=== PATIENT | female | born 1950 | race Caucasian/White ===

== ENCOUNTER 2023-06-27 09:45 | Outpatient (OUT) | payer MEDICARE, MEDICAID, SELFPAY ==
--- NOTE | 2023-06-27 10:50 | CA_ITS ---
Patient: RUBI SALOMON Exam Date: 06/27/2023 : 1950 Gender:F Ordering : PIETRO VÁZQUEZ Admission #: [id number] Family : Order #: [id number] CLICK HERE TO VIEW EXAM ECHOCARDIOGRAM REPORT PROCEDURE: CA ECHO DOPPLER COMPLETE INDICATIONS: Longstanding persistent Afib COMPARISON: None. DESCRIPTION: COMPLETE ECHOCARDIOGRAM Real-time transthoracic echocardiography with 2D, M-mode, spectral and color flow Doppler performed. QUALITY: Technical quality was good. LEFT VENTRICLE: Normal chamber size. Moderate concentric left ventricular hypertrophy. LV EF: Global left ventricular systolic function is normal. Calculated left ventricular ejection fraction is 58% DIASTOLIC: Not adequately assessed due to heart rhythm. ATRIAL SEPTUM: Inadequately seen. LEFT ATRIUM: Normal chamber size. RIGHT ATRIUM: Mild dilatation. RIGHT VENTRICLE: Mild dilatation. Normal right ventricular systolic function. TRICUSPID VALVE: Normal mobility and thickness. No stenosis with trivial regurgitation. No evidence of pulmonary hypertension. RVSP 20mmHg MITRAL VALVE: Normal mobility and thickness. No evidence of mitral valve stenosis. Mild mitral annular calcification. Trivial mitral regurgitation. AORTIC VALVE: Normal trileaflet appearance. No visible sclerosis. Normal leaflet mobility. No evidence of aortic valve stenosis. Trivial aortic regurgitation. AORTIC ROOT: Normal diameter and appearance. PULMONIC VALVE: Grossly normal. No stenosis. No regurgitation. PERICARDIUM: No evidence of pericardial effusion. IVC: Collapses with inspirations. Normal size. CONCLUSION: 1. Global left ventricular systolic function is normal; visually estimated ejection fraction is 55 to 60% 2. Moderately increased left ventricular wall thickness 3. The right atrium is mildly dilated 4. Right ventricle is mildly dilated with normal systolic function 5. No significant valvular abnormalities Adult Echocardiography Procedure Report Left Ventricle LVEDD (3.7 - 5.6 cm): 4.29 cm LVESD (2.2 - 4.0 cm): 2.67 cm LVIVS thickness (0.6 - 1.2 cm): 1.38 cm LVPW thickness (0.5 - 1.0 cm): 1.27 cm e': 0.18 m/s E - e': 5.63 LVOT Max Gradient: 2.05 mm[Hg] LVOT Area (cm2): 0.72 m/s Peak Velocity (LVOT): 0.72 m/s Mean Velocity (LVOT): 0.56 m/s LVOT Diameter 2.09 cm Left Ventricular Ejection Fraction: 58.08 % Left Atrium LA Volume Index (2D A2C): 36.10 ml/m2 Left Atrium Systolic Dimension: 4.05 cm Mitral Valve Mitral Valve E-Wave Peak Velocity: 1.00 m/s Right Ventricle RV Internal Diastolic Dimension: 4.09 cm Aorta AO Root Diam: 3.29 cm Ascending Ao Diam: 3.19 cm Aortic Valve AoV Area (Peak Vicente): 2.03 cm2, 2.06 cm2 AoV Area (VTI): 2.07 cm2, 2.22 cm2 Peak Velocity(Antegrade Flow): 1.19 m/s, 1.23 m/s Peak Gradient(Antegrade Flow): 5.69 mm[Hg], 6.00 mm[Hg] Mean Velocity(Antegrade Flow): 0.82 m/s, 0.87 m/s Mean Gradient(Antegrade Flow): 3.16 mm[Hg], 3.44 mm[Hg] Velocity Time Integral: 23.51 cm, 26.84 cm Tricuspid Valve Peak Velocity (Regurgitant Flow): 1.80 m/s, 2.05 m/s Pulmonic Valve Mean Gradient: 1.19 mm[Hg], 1.17 mm[Hg] Mean Velocity: 0.51 m/s, 0.51 m/s Peak Velocity: 0.73 m/s, 0.94 m/s Peak Gradient: 2.15 mm[Hg], 2.15 mm[Hg], 3.56 mm[Hg] Right Atrium Right Atrium Systolic Pressure: 50.21 ml, 50.21 ml Dictated by: Shemar Hudson M.D. on 06/28/2023 at 10:13 Approved by: Shemar Hudson M.D. on 06/28/2023 at 10:15
== END 2023-06-27 09:46 | disposition home or self-care (01) ==
LOC: CARD 09:46
PROVIDERS: PCP Family Medicine; Visit Provider Nurse Practitioner
DX: C50.811 Malignant neoplasm of overlapping sites of right female breast (principal); Z17.1 Estrogen receptor negative status [ER-]; I48.11 Longstanding persistent atrial fibrillation
CPT/HCPCS: 77065; 93306; G0279

== ENCOUNTER 2023-06-27 10:38 | Outpatient (OUT) | payer MEDICARE, MEDICAID, SELFPAY ==
--- NOTE | 2023-06-27 | MM_ITS ---
Patient: RUBI SALOMON Exam Date: 06/27/2023 : 1950 Gender:F Ordering : DR Shayy Bernabe [facility] Admission #: [id number] Family : DR. AKIL FLORES . Order #: [id number] CLICK HERE TO VIEW EXAM RADIOLOGY REPORT PROCEDURE: MM TOMOSYNTHESIS DIAGNOSTIC LT COMPARISON: MG MAMM DX 3D LT CAD, 06/14/2022. MG MAMM DX 3D LT CAD, 06/13/2021. INDICATIONS: C50.811, Z17.1 Calculator Name NCI Breast Cancer Risk Assessment Tool 5 Year Breast Cancer Risk 2.70% Lifetime Breast Cancer Risk 5.80% Personal Breast Cancer No Personal Ovarian Cancer No Treatments None Family Cancers None LOCATION: [facility] BREAST COMPOSITION: Scattered areas fibroglandular density. FINDINGS: DIAGNOSTIC CATEGORY 2--BENIGN FINDING: RIGHT BREAST: No significant suspicious finding. Scattered benign-appearing nodules are present. No significant change has occurred. RECOMMENDATIONS: ROUTINE MAMMOGRAM AND CLINICAL EVALUATION IN 12 MONTHS. PLEASE NOTE: A NORMAL MAMMOGRAM DOES NOT EXCLUDE THE POSSIBILITY OF BREAST CANCER. A CLINICALLY SUSPICIOUS PALPABLE LUMP SHOULD BE BIOPSIED. Dictated by: Jason Hinojosa M.D. on 06/27/2023 at 11:29 Approved by: Jason Hinojosa M.D. on 06/27/2023 at 11:32
== END 2023-06-27 10:39 | disposition home or self-care (01) ==
LOC: MAMMO 10:38
PROVIDERS: PCP Family Medicine; Visit Provider Physician Assistant Medical
DX: C50.811 Malignant neoplasm of overlapping sites of right female breast (principal); Z17.1 Estrogen receptor negative status [ER-]
CPT/HCPCS: 77065; G0279

== ENCOUNTER 2023-08-12 12:33 | Outpatient (OUT) | payer MEDICARE, MEDICAID, SELFPAY ==
--- NOTE | 2023-08-12 12:37 | CT_ITS ---
The [address] [address] Patient Name: RUBI SALOMON MRN: [facility]:[id number] date: 1950 Sex: F Assigned Patient Location: CT Current Patient Location: CT Accession/Order Number: [id number] Exam Date: 08/12/2023 12:54 Report Date: 08/12/2023 13:27 At the request of: JENSEN CARTER Procedure: CT head/brain wo con CT head/brain wo con, 08/12/2023 12:54 PM EST INDICATION: Transient Altercation Of Awareness R40.4, Hallucination R44. COMPARISON: There is no appropriate prior study for comparison. TECHNIQUE: Axial CT images of the brain from skull base to vertex, including portions of the face and sinuses, were obtained without contrast . Multiplanar reformatted images were generated and reviewed as needed. Dose reduction techniques were achieved by using automated exposure control and/or adjustment of mA and/or kV according to patient size and/or use of iterative reconstruction technique. FINDINGS: The cerebral sulci as well as ventricular system are appropriate for age. There is no intracranial mass, mass effect, midline shift, intra or extra-axial fluid collection or hemorrhage. The visualized portions of orbits, mastoid air cells as well as paranasal sinuses are unremarkable. There is status post bilateral lens replacement. There is diffuse hyperostosis of the cranium. There is no suspicious osteolytic or osteoblastic lesion. CT/CT head/brain wo con IMPRESSION: No acute intracranial process is noted. Electronically authenticated by: DEMETRIS CAMP Date: 08/12/2023 13:27
== END 2023-08-12 12:34 | disposition home or self-care (01) ==
LOC: CT 12:34
PROVIDERS: PCP Family Medicine; Visit Provider Nurse Practitioner Adult Health
DX: R40.4 Transient alteration of awareness (principal); R44.3 Hallucinations, unspecified
CPT/HCPCS: 70450

== ENCOUNTER 2023-08-29 10:01 | Outpatient (OUT) | payer MEDICARE, MEDICAID, SELFPAY ==
[2023-08-29 10:58] LABS: BUN Creatinine Ratio 21.3; Carbon Dioxide 30.2 mmol/L (21.0-32.0); Chloride 103 mmol/L (98-107); Estimated GFR (African America >60 (>=60); Estimated GFR (Non-African Ame >60 (>=60); Glucose 130 mg/dL (74-106); Potassium 4.2 mmol/L (3.5-5.1); Sodium 142 mmol/L (136-145)
== END 2023-08-29 10:02 | disposition home or self-care (01) ==
PROVIDERS: PCP Family Medicine; Visit Provider Nurse Practitioner
DX: I50.32 Chronic diastolic (congestive) heart failure (principal)
CPT/HCPCS: 36415; 80048; 83880

== ENCOUNTER 2024-01-08 10:19 | Outpatient (OUT) | payer MEDICARE, MEDICAID, SELFPAY ==
[2024-01-08 15:24] LABS: Anion Gap 13.9; BUN Creatinine Ratio 29.3; Calcium 9.4 mg/dL (8.5-10.1); Carbon Dioxide 31.7 mmol/L (21.0-32.0); Chloride 101 mmol/L (98-107); Estimated GFR (African America 34 (>=60); Estimated GFR (Non-African Ame 28 (>=60); Glucose 116 mg/dL (74-106); Potassium 4.6 mmol/L (3.5-5.1); Sodium 142 mmol/L (136-145)
== END 2024-01-08 10:20 | disposition home or self-care (01) ==
LOC: LAB 01-14 10:19
PROVIDERS: PCP Family Medicine; Visit Provider Nurse Practitioner
DX: I50.32 Chronic diastolic (congestive) heart failure (principal)
CPT/HCPCS: 36415; 80048

== ENCOUNTER 2024-03-05 12:29 | Outpatient (OUT) | payer MEDICARE, MEDICAID, SELFPAY ==
[2024-03-05 13:00] LABS: Basophils Percent Auto 0.1 % (0.2-2.0); Hemoglobin 10.4 g/dL (12.0-16.0); Immature Granulocytes Abs Auto 0.03 10^3/uL (0.00-0.03); Immature Granulocytes Pct Auto 0.3 % (0.0-0.5); Lymphocytes Absolute Auto 0.6 10^3/uL (1.2-3.8); Lymphocytes Percent Auto 5.8 % (20.5-60.0); Mean Corpuscular HGB Conc 30.6 g/dL (29.9-35.2); Mean Corpuscular Hemoglobin 30.1 pg (26.7-34.0); Mean Corpuscular Volume 98.3 fL (81.0-99.0); Mean Platelet Volume 9.8 fL (9.5-13.5); Monocytes Absolute Auto 0.4 10^3/uL (0.3-0.8); Monocytes Percent Auto 3.8 % (1.7-12.0); Neutrophils Absolute Auto 8.8 10^3/uL (1.4-6.5); Platelet Count 279 10^3/uL (150-450); Red Blood Count 3.46 10^6/uL (4.20-5.40); Red Cell Distribution Width 14.2 % (11.0-15.0); White Blood Count 9.8 10^3/uL (4.0-11.0)
[2024-03-05 14:36] LABS: Anion Gap 12.6; BUN Creatinine Ratio 29.1; Chloride 101 mmol/L (98-107); Estimated GFR (African America 41 (>=60); Estimated GFR (Non-African Ame 34 (>=60); Glucose 152 mg/dL (74-106); Potassium 4.6 mmol/L (3.5-5.1); Sodium 141 mmol/L (136-145)
== END 2024-03-05 12:30 | disposition home or self-care (01) ==
LOC: LAB 12:29
PROVIDERS: PCP Family Medicine; Visit Provider Internal Medicine Cardiovascular Disease
DX: I48.0 Paroxysmal atrial fibrillation (principal)
CPT/HCPCS: 36415; 80048; 85025

== ENCOUNTER 2024-04-26 17:17 | Emergency (ER) | payer MEDICARE, MEDICAID, SELFPAY ==
--- NOTE | 2024-04-26 | XR_ITS ---
The [address] [address] Patient Name: RUBI SALOMON MRN: [facility]:[id number] date: 1950 Sex: F Assigned Patient Location: ER Current Patient Location: ED.MAIN Accession/Order Number: [id number] Exam Date: 04/26/2024 18:15 Report Date: 04/26/2024 20:04 At the request of: DEVON NG Procedure: XR wrist LT min 3V EXAM: XR hand LT min 3V, XR wrist LT min 3V HISTORY: The patient is a 74-year-old female, fall COMPARISON: None. XR/XR wrist LT min 3V IMPRESSION: There is an old healed fracture deformity of the distal left radius. No dislocations or acute or ununited fractures are seen throughout the left hand and wrist. Electronically authenticated by: DRU BAINS Date: 04/26/2024 20:04
[2024-04-26 17:30] VITALS: BP 152/82; PULSE 86; TEMP 36.8; O2SAT 98; BMI 39.5
--- OUTSIDE RECORDS SUMMARY | 2024-04-26 17:31 | XMS_ITS | CCD ---
Author Organization [facility] Care Team Providers Care Ingot Header Name Role Phone MORGAN EHAB A Admitting Unavailable ELTAROBERT EHAB A Attending Unavailable UNKNOWN, PHYSICIAN Referring Unavailable UNKNOWN, PHYSICIAN Primary Care Unavailable ARACELI SANDHU Admitting Unava ilable ARACELI SANDHU Attending Unava ilable UNKNOWN, PHYSICIAN Referring Unavailable UNKNOWN, PHYSICIAN Primary Care Unavailable Charles Landeros MD Primary Care Provider Emmanuel WAFER FABRICATION OPERATOR.SALES TECHNICIAN, Samantha Unavailable [phone] Reginald Aragon MD Unavailable Charles Landeros MD Primary Care Provider Emmanuel WAFER FABRICATION OPERATOR.SALES TECHNICIAN, Samantha Unavailable Reginald Aragon MD Unavailable Charles Landeros MD Primary Care Provider Emmanuel WAFER FABRICATION OPERATOR.SALES TECHNICIAN, Samantha Unavailable [phone] Reginald Aragon MD Unavailable NADINE, DR CHARLES Keith Admitting Unavailable NADINE, DR CHARLES Keith Attending Unavailable NADINE, DR CHARLES Keith Primary Care Unavailable NALLELY, DR MILIAN Admitting Unavailable NALLELY, DR MILIAN Attending Unavailable NALLELY, DR MILIAN Consulting Unavailable NADINE, DR CHARLES Keith Primary Care Unavailable SHAWNEE, DR DEEPTI Mondragon Consulting Unavailable NADINE, DR CHARLES Keith Admitting Unavailable NADINE, DR CHARLES Keith Attending Unavailable NADINE, DR CHARLES Keith Consulting Unavailable NADINE, DR CHARLES Keith Primary Care Unavailable SHAWNEE, DR DEEPTI Mondragon Consulting Unavailable BRIANA, MITCHEL Admitting Unavailable GABRIELLE LIU Consulting Unavailable MITCHEL WARREN Attending Unavailable NADINE, DR CHARLES Keith Primary Care Unavailable MITCHEL WARREN Consulting Unavailable REGINALD ARAGON Referring Unavailable REGINALD ARAGON Attending Unavailable NADINE, CHARLES PRAKASH Primary Care Unavailable REGINALD ARAGON Referring Unavailable NADINE, CHARLES PRASHANTDELICIA Primary Care Unavailable REGINALD ARAGON Referring Unavailable REGINALD ARAGON Attending Unavailable CHARLES LANDEROS Primary Care Unavailable LANDEROS, CHARLES PRAKASH Primary Care Unavailable REGINALD ARAGON Referring Unavailable CON, OH Fuentes Referring Unavailable CON, OH Fuentes Primary Care Unavailable CON, OH Fuentes Referring Unavailable CON, OH Fuentes Primary Care Unavailable OLGAELIF Referring Unavailable CHARLES LANDEROS Primary Care Unavailable JENSEN CARTER Attending Unavailable JEFFERY, BRIAN Admitting Unavailable JEFFERY, BRIAN Attending Unavailable OLGA, ELIF Attending Unavailable BARAZPIETRO Martinez Attending Unavailable JEFFERY, BRIAN Referring Unavailable JEFFERY, BRIAN Referring Unavailable JEFFERY, BRIAN Referring Unavailable BARAZIPIETRO Attending Unavailable MELISSA TORRES Attending Unavailable JEFFERY, BRIAN Attending Unavailable OLGA, ELIF Attending Unavailable JEFFERY, BRIAN Attending Unavailable Con, Oh Fuentes Attending Unavailable Con, Oh Fuentes Attending Unavailable Con, Oh Fuentes Attending Unavailable Con, Oh Fuentes Attending Unavailable Con, Oh Fuentes Attending Unavailable Inderjit Cha Attending Unavailab Inderjit Hughes Admitting Unavailab Charles Rain Primary Care Unavailable Allergies Allergy Classification Reported Allergen(s) Allergy Type Date of Onset Reaction(s) Facility (3 sources) Penicillin; Translations: [penicillin] Drug Allergy 01-17-20 19 [facility] (5 sources) Sulfonamides (Antibiotic); Translations: [SULFA (SULFONAMIDE ANTIBIOTICS)] Drug allergy (disorder) 01-28-20 10 [facility] (11 sources) bacitracin / neomycin / polymyxin b; Translations: [NEOMYCIN-BACITRAC IN-POLYMYXIN] Drug Allergy 05-06-20 19 Rash [facility] (12 sources) Clarithromycin; Translations: [CLARITHROMYCIN] Drug Allergy 01-28-20 10 [facility] (11 sources) Estrogens, Conjugated (HALFWAY); Translations: [CONJUGATED ESTROGENS] Drug Allergy 01-28-20 10 Unknown [facility] (10 sources) PACLitaxel; Translations: [PACLITAXEL] Drug Allergy 08-24-20 Other: See Comments [facility] (11 sources) peanut allergenic extract; Translations: [PEANUT] Drug Allergy 05-06-20 19 Anaphylaxis [facility] (4 sources) Penicillins; Translations: [PENICILLINS] Drug Allergy 05-06-20 19 Rash [facility] (8 sources) Sulfonamides (Antibiotic) Drug Allergy 01-28-20 10 Unknown [facility] (7 sources) Penicillins Drug Allergy 05-06-20 19 Rash [facility] (3 sources) Shrimp product; Translations: [SHRIMP] Propensity to adverse reactions to food (disorder) 05-07-20 [facility] (4 sources) PINEAPPLE; Translations: [PINEAPPLE] Propensity to adverse reactions to food (disorder) 05-07-20 [facility] (3 sources) Bacitracin; Translations: [BACITRACIN] Drug Allergy 05-16-20 [facility] (1 source) Bromelains; Translations: [BROMELAINS] Drug Allergy 04-25-20 [facility] (2 sources) Estrogens, Conjugated (HALFWAY); Translations: [ESTROGENS, CONJUGATED] Drug Allergy 05-16-20 [facility] (1 source) Neomycin; Translations: [NEOMYCIN SULFATE] Drug Allergy 04-25-20 [facility] (2 sources) POLYMYXIN B; Translations: [POLYMYXIN B] Propensity to adverse reactions to drug (disorder) 05-16-20 [facility] (1 source) peanut; Translations: [Peanuts] Food allergy (disorder) [facility] Repository (1 source) Sulfonamides (Antibiotic); Translations: [sulfa drugs] Propensity to adverse reactions (disorder) [facility] (1 source) Clarithromycin Drug Allergy 05-16-20 [facility] (1 source) Fish Oils Drug Allergy 06-12-20 [facility] (1 source) Neomycin Drug Allergy 05-16-20 [facility] (1 source) PACLitaxel Drug Allergy 05-16-20 [facility] (1 source) peanut allergenic extract Drug Allergy 05-16-20 [facility] (1 source) Penicillins Drug allergy (disorder) 06-12-20 [facility] (1 source) Sulfacetamide Drug Allergy 06-12-20 [facility] (1 source) Sulfonamides (Antibiotic) Drug allergy (disorder) 05-16-20 [facility] (1 source) Sulfur Drug Allergy 06-12-20 [facility] (1 source) tree nut, unspecified Drug allergy (disorder) 06-12-20 [facility] Medications Completed/Discontinued Medications Medication Drug Class(es) Dates Sig (Normalized) Sig (Original) acetaminophen 500 mg oral tablet (8 sources) take 2 tablets by mouth every six hours as needed acetaminophen (TYLENOL) 500 mg tablet Take 1,000 mg by mouth every 6 hours as needed. 0 Active Comment on above: Take 1,000 mg by zohreh th every 6 hours as needed. ADULTS 50 PLUS 0.4-300-250 mg-mcg-mcg tab (8 sources) Start: 01-04-2021 take 1 tablet by mouth once daily ADULTS 50 PLUS 0.4-300-250 mg-mcg-mcg tab Take 1 tablet by mouth once daily. 0 01/04/2021 Active Comment on above: Take 1 tablet by zohreh th once daily. [id number] 200 actuat albuterol 0.09 mg/actuat metered dose inhaler (8 sources) beta2-Adrenergic Agonist take 2 puff(s) by inhalation every six hours as needed albuterol HFA (PROVENTIL HFA, VENTOLIN HFA) 90 mcg/actuation inhaler Inhale 2 Puffs as instructed every 6 hours as needed. 0 Active Comment on above: Inhale 2 Puffs as in structed every 6 hours as needed. albuterol 0.833 mg/ml / ipratropium bromide 0.167 mg/ml inhalation solution (8 sources) Anticholinergic, beta2-Adrenergic Agonist Start: 02-27-2020 take 1 dose by inhalation four times daily ipratropium-albute rol (DUONEB) 0.5 mg-3 mg(2.5 mg base)/3 mL nebu INHALE THE CONTENTS OF 1 VIAL THROUGH NEBULIZER QID 0 02/27/2020 Active Comment on above: INHALE THE CONTENTS OF 1 VIAL THROUGH NEBULIZER QID apixaban 5 mg oral tablet (8 sources) Factor Xa Inhibitor Start: 03-17-2019 take 1 tablet by mouth twice daily ELIQUIS 5 mg tab(s) Take 5 mg by mouth twice daily. 0 03/17/2019 Active Comment on above: Take 5 mg by mouth t wice daily. ARIPiprazole 15 mg oral tablet (1 source) Atypical Antipsychotic take 1 tablet by mouth once daily ARIPiprazole (ABILIFY) 15 mg tablet Take 15 mg by mouth once daily. 0 Active Comment on above: Take 15 mg by mouth once daily. atorvastatin 40 mg oral tablet (8 sources) HMG-CoA Reductase Inhibitor Start: 01-16-2019 take 1 tablet by mouth once daily atorvastatin (LIPITOR) 40 mg tablet Take 40 mg by mouth once daily. 3 01/16/2019 Active Comment on above: Take 40 mg by mouth once daily. 1 ml benralizumab 30 mg/ml auto-injector (8 sources) Interleukin-5 Receptor alpha-directed Cytolytic Antibody Start: 02-21-2021 FASENRA PEN 30 mg/mL cholecalciferol 0.05 mg oral capsule (8 sources) Vitamin D Start: 03-01-2019 VITAMIN D-3 2,000 unit cap 2,000 Units once daily. 5 03/01/2019 Active Comment on above: 2,000 Units once linda ly. dapagliflozin 5 mg oral tablet (8 sources) Sodium-Glucose Cotransporter 2 Inhibitor Start: 11-30-2020 take 2 tablets by mouth once daily FARXIGA 5 mg tablet Take 10 mg by mouth once daily. 0 11/30/2020 Active Start: 11-30-2020 FARXIGA 5 mg t ablet Comment on above: Take 10 mg by mouth once daily. fluticasone propionate 0.05 mg/actuat metered dose nasal spray (8 sources) Corticosteroid Start: 02-27-20 fluticasone (FLONASE) 50 mcg/actuation nasal spray 2 Sprays once daily. 0 02/26/2019 Active Comment on above: 2 Sprays once daily. 60 actuat fluticasone propionate 0.5 mg/actuat / salmeterol 0.05 mg/actuat dry powder inhaler (8 sources) Corticosteroid, beta2-Adrenergic Agonist Start: 03-03-20 19 ADVAIR DISKUS 500-50 mcg/dose dsdv 1 Puff twice daily. 5 03/03/2019 Active Comment on above: 1 Puff twice daily. 30 actuat fluticasone furoate 0.1 mg/actuat / vilanterol 0.025 mg/actuat dry powder inhaler (1 source) Corticosteroid, beta2-Adrenergic Agonist Start: 09-10-20 23 BREO ELLIPTA 100-25 mcg/dose inhaler furosemide 20 mg oral tablet (8 sources) Loop Diuretic Start: 01-17-20 19 take 3 tablets by mouth once daily furosemide (LASIX) 20 mg tablet Take 60 mg by mouth once daily. 3 01/16/2019 Active Start: 01-16-2019 take 2 tablets by mo [facility] once daily furosemide (LASIX) 20 mg tablet Take 40 mg by mouth once daily. 3 01/16/2019 Active Start: 01-16-2019 [facility] (LASIX) 20 mg tablet Take 20 mg by mouth once daily. 3 01/16/2019 Active Comment on above: Take 20 mg by mouth once daily. Take 40 mg by mouth once daily. Take 60 mg by mouth once daily. loratadine 10 mg oral tablet (8 sources) Start: 9 take 1 tablet by mouth once daily loratadine (CLARITIN) 10 mg tablet Take 10 mg by mouth once daily. 0 05/19/2019 Active Comment on above: Take 10 mg by mouth once daily. losartan potassium 100 mg oral tablet (8 sources) Angiotensin 2 Receptor Amber Start: 9 take 1 tablet by mouth once daily losartan (COZAAR) 100 mg tablet Take 100 mg by mouth once daily. 3 03/13/2019 Active Comment on above: Take 100 mg by mouth once daily. metFORMIN hydrochloride 500 mg oral tablet (8 sources) Biguanide Start: 0 take 1 tablet by mouth twice daily metFORMIN (GLUCOPHAGE) 500 mg tablet TK 1 T PO BID 0 08/05/2020 Active Comment on above: TK 1 T PO BID metoprolol tartrate 50 mg oral tablet (8 sources) beta-Adrenergic Amber Start: 9 metoprolol tartrate, short acting, (LOPRESSOR) 50 mg tablet Take 100 mg by mouth two times a day. 5 03/13/2019 Active Start: 03-13-2019 take 1 tablet by zohreh th twice daily metoprolol tartrate, short acting, (LOPRESSOR) 50 mg tablet Take 50 mg by mouth twice daily. 5 03/13/2019 Active Comment on above: Take 50 mg by mouth twice daily. Take 100 mg by mouth two times a day. montelukast 10 mg oral tablet (8 sources) Leukotriene Receptor Antagonist Start: 0 take 1 tablet by mouth once daily montelukast (SINGULAIR) 10 mg tablet TK 1 T PO QD 0 03/08/2020 Active Comment on above: TK 1 T PO QD nystatin 100 unt/mg topical powder (8 sources) Polyene Antifungal Start: 0 NYSTOP powder Apply to affected area two times a day as needed. APPLY TO AFFECTED AREA 0 10/12/2019 Active Comment on above: Apply to affected ar ea twice daily as needed. APPLY TO AFFECTED AREA Apply to affected ar ea two times a day as needed. APPLY TO AFFECTED AREA ondansetron 8 mg oral tablet (8 sources) Serotonin-3 Receptor Antagonist Start: 9 take 1 tablet by mouth every eight hours as needed ondansetron (ZOFRAN) 8 mg tablet Take 1 tablet by mouth every 8 hours as needed for Nausea/Vomiting. 30 tablet 2 04/27/2019 Active Comment on above: Take 1 tablet by zohreh every 8 hours as needed for Nausea/Vomiting. pantoprazole 40 mg delayed release oral tablet (8 sources) Proton Pump Inhibitor take 1 tablet by mouth once daily pantoprazole DR (PROTONIX) 40 mg tablet Take 40 mg by mouth once daily. 0 Active Comment on above: Take 40 mg by mouth once daily. potassium chloride 20 meq extended release oral tablet (18 sources) Start: 2 End: 3 take 2 tablets by mouth once daily potassium chloride 20 mEq TbER TAKE 2 TABLETS BY MOUTH EVERY DAY 180 tablet 0 10/11/2022 Active Start: 12-04-2021 take 2 tablets by mo [facility] once daily potassium chloride 20 mEq TbER TAKE 2 TABLETS BY MOUTH EVERY DAY 180 tablet 0 12/04/2021 Active Start: 02-16-2021 take 2 tablets by mo [facility] once daily potassium chloride ER (K-DUR, KLOR-CON) 20 mEq tablet Take 2 tablets by mouth once daily. 180 tablet 1 02/16/2021 Active Comment on above: Take 2 tablets by mo [facility] once daily. TAKE 2 TABLETS BY MO [facility] EVERY DAY predniSONE 10 mg oral tablet (8 sources) Start: 2019 take 3 tablets by mouth once daily in the morning predniSONE (DELTASONE) 10 mg tablet TK 3 TS PO QAM FOR 3 DAYS FOR ASTHMA FLARE 0 05/02/2020 Active Comment on above: TK 3 TS PO QAM FOR 3 DAYS FOR ASTHMA FLARE prochlorperazine 10 mg oral tablet (8 sources) Phenothiazine Start: 2018 take 1 tablet by mouth every six hours as needed prochlorperazine (COMPAZINE) 10 mg tablet Take 1 tablet by mouth every 6 hours as needed. 30 tablet 2 04/27/2019 Active Comment on above: Take 1 tablet by [facility] every 6 hours as needed. sertraline 50 mg oral tablet (8 sources) Serotonin Reuptake Inhibitor Start: 2018 take 1 tablet by mouth once daily sertraline (ZOLOFT) 50 mg tablet Take 50 mg by mouth once daily. 5 03/02/2019 Active Comment on above: Take 50 mg by mouth once daily. silver sulfADIAZINE 10 mg/ml topical cream (8 sources) Sulfonamide Antibacterial Start: 2019 silver sulfADIAZINE (SILVADENE,THERMAZENE ) 1 % cream Apply to affected area twice daily 0 11/06/2019 Active Comment on above: Apply to affected ar ea twice daily spironolactone 25 mg oral tablet (1 source) Aldosterone Antagonist take 1 tablet by mouth once daily spironolactone (ALDACTONE) 25 mg tablet Take 25 mg by mouth once daily. 0 Active Comment on above: Take 25 mg by mouth once daily. 60 actuat tiotropium 0.68310 mg/actuat inhalation spray (8 sources) Anticholinergic Start: 2018 take 1.25 ug by inhalation once daily SPIRIVA RESPIMAT 1.25 mcg/actuation mist Inhale 2 Puffs as instructed once daily. 12 03/12/2019 Active Comment on above: Inhale 2 Puffs as in structed once daily. WOMEN'S MULTIVITAMIN 18 mg-400 mcg- 500 mg-50 mcg tab (8 sources) Start: 2018 take 1 tablet by mouth once daily WOMEN'S MULTIVITAMIN 18 mg-400 mcg- 500 mg-50 mcg tab TK 1 T PO D 3 01/14/2019 Active Comment on above: TK 1 T PO D Problems Active Problems Problem Classification Problem Date Documented Da te Episodic/Chronic Asthma (1 source) Unspecified asthma, uncomplicated; Translations: [UNSPECIFIED ASTHMA UNCOMPLICATED] Onset: 07-25-2022 Chronic Cancer of breast (18 sources) Overlapping malignant neoplasm of female breast; Translations: [Malignant neoplasm of overlapping sites of right female breast] Onset: 04-20-2019 Chronic Cardiac dysrhythmias (5 sources) Paroxysmal atrial fibrillation; Translations: [Unspecified atrial fibrillation] Onset: 10-24-2023 Chronic Congestive heart failure; nonhypertensive (2 sources) Chronic diastolic (congestive) heart failure; Translations: [Chronic diastolic (congestive) heart failure] Onset: 06-18-2023 Chronic Coronary atherosclerosis and other heart disease (3 sources) Old myocardial infarction; Translations: [OLD MYOCARDIAL INFARCTION] Onset: 07-25-2022 Chronic Deficiency and other anemia (1 source) Iron deficiency anemia; Translations: [Other iron deficiency anemias] Episodic Diabetes mellitus without complication (1 source) Type 2 diabetes mellitus without complications; Translations: [TYPE 2 DM WITHOUT COMPLICATIONS] Onset: 07-25-2022 Chronic Esophageal disorders (1 source) Gastro-esophageal reflux disease without esophagitis; Translations: [GERD WITHOUT ESOPHAGITIS] Onset: 07-25-2022 Chronic Essential hypertension (3 sources) Essential (primary) hypertension; Translations: [ESSENTIAL PRIMARY HYPERTENSION] Onset: 07-25-2022 Chronic Osteoarthritis (1 source) Unspecified osteoarthritis, unspecified site; Translations: [UNSPECIFIED OSTEOARTHRITIS UNS SITE] Onset: 07-25-2022 Chronic Other aftercare (1 source) 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; Translations: [OTH CMM PROGRAMMER CURRENT DRUG THERAPY] Onset: 07-25-2022 Episodic Other injuries and conditions due to external causes (1 source) Unspecified injury of left shoulder and upper arm, initial encounter; Translations: [Unspecified injury of left shoulder and upper arm, initial encounter] Onset: 11-27-2023 Episodic Other lower respiratory disease (1 source) Shortness of breath; Translations: [SHORTNESS OF BREATH] Onset: 07-25-2022 Episodic Other non-traumatic joint disorders (1 source) Pain in left shoulder; Translations: [Pain in left shoulder] Onset: 11-27-2023 Episodic Other nutritional; endocrine; and metabolic disorders (1 source) Morbid (severe) obesity due to excess calories; Translations: [MORBID SEVERE OBES D/T EXCESS SUNIL] Onset: 07-25-2022 Chronic Other nutritional; endocrine; and metabolic disorders (1 source) History of iron deficiency; Translations: [Personal history of other endocrine, nutritional and metabolic disease] Episodic Pneumonia (except that caused by tuberculosis or sexually transmitted disease) (5 sources) Lobar pneumonia, unspecified organism; Translations: [Bronchopneumonia, unspecified organism] Onset: 07-25-2022 Episodic Residual codes; unclassified (1 source) History of right mastectomy; Translations: [Acquired absence of right breast and nipple] 09-12-2023 Episodic Unclassified (2 sources) COUGH, UNSPECIFIED; Translations: [COUGH, UNSPECIFIED] Onset: 07-25-2022 Unclassified (1 source) CONTACT W/AND (SUSP) EXPOS COVID-19; Translations: [CONTACT W/AND (SUSP) EXPOS COVID-19] Onset: 07-25-2022 Unclassified (2 sources) Other persistent atrial fibrillation; Translations: [Other persistent atrial fibrillation] Onset: 02-11-2024 Unclassified (2 sources) Longstanding persistent atrial fibrillation; Translations: [Longstanding persistent atrial fibrillation] Onset: 06-18-2023 Past or Other Problems Problem Classification Problem Date Documented Da te Episodic/Chronic Deficiency and other anemia (9 sources) Iron deficiency anemia secondary to inadequate dietary iron intake; Translations: [Other iron deficiency anemias] Onset: 06-17-2019 06-17-2019 Episodic Residual codes; unclassified (2 sources) Estrogen receptor negative status [ER-]; Translations: [ESTROGEN RECEPTOR NEGATIVE STATUS] Onset: 04-20-2019 Episodic Unclassified (1 source) COUGH, UNSPECIFIED; Translations: [COUGH, UNSPECIFIED] Onset: 07-23-2022 Results Test Name Value Interpretation Reference Range Facility Family Medicine Office/Clini c Noteon 03-30-2024 Family Medicine Office/Clinic Note Family Medicine Office/Clinic Note HPI Staff Lott is a 74 year old female presenting for medication check labs 01/08/24 NED 01/09/24 was to follow up with [facility], Did drooling improve Pt here today with Ruddy her Caregiver with [facility] Drooling has improved , caregiver states she went to go to [facility] testing all came back normal only thing she couldn't finish was the MRI . They ending up doing CT scan History of Present Illness pt presents today for med check Physical Exam Vitals & Measurements HR: 76(Peripheral) RR: 18 BP: 126/84 SpO2: 92% HT: 65 in HT: 164.0 cm WT: 121.55 kg WT: 267.41 lb BMI: 45.19 General: alert, no acute distress ENMT: oral mucosa moist, no pharyngeal erythema or exudate Cardiovascular: regular rate and rhythm, normal peripheral perfusion Respiratory: Lungs CTA, respirations non labored Extremities: no deformity, no trauma Neurological: oriented x 4, LOC appropriate for age, CN II-XII intact, motor strength equal & normal bilaterally, speech normal Assessment/Plan 1. Type 2 diabetes mellitus with stage 3b chronic kidney disease (E11.22: Type 2 diabetes mellitus with diabetic chronic kidney disease) pt does not need refills at this. orders for labs printed off and provided. [facility] [place] denies needs at this time. RTC 6 months 2. Hypertensive disorder (I10: Essential (primary) hypertension) BP at goal today 3. BMI 45.0-49.9, adult (Z68.42: Body mass index [BMI] 45.0-49.9, adult) BMI educatin given 4. Non-smoker (Z78.9: Other specified health status) continue not smoking Orders: dapagliflozin, 5 mg = 1 tab(s), Oral, Daily, # 90 tab(s), Refills(s) 3, Pharmacy: [facility] #[id number] predniSONE, 30 mg = 3 tab(s), Oral, Once, take 3 tabs in am for 3 days for asthma flare up, # 9 tab(s), Refills(s) 1, Pharmacy: [facility] #[id number] Follow-up No qualifying data available Problem List/Past Medical History Ongoing Adult BMI 40.0-44.9 kg/sq m Allergic rhinitis Chronic respiratory failure with hypoxia Coronary arteriosclerosis in [place] artery Drooling Gastroesophageal reflux disease Heart failure, systolic and diastolic Hyperlipidemia due to type 2 diabetes mellitus Hypertensive disorder Hypoxemia Iron deficiency anemia secondary to inadequate dietary iron intake FPC (current) use of inhaled steroids Lumbosacral spondylosis Major depressive disorder, recurrent episode, moderate Malignant neoplasm of lower-outer quadrant of female breast Morbid obesity Paroxysmal atrial fibrillation Primary malignant neoplasm of breast Severe persistent asthma, uncomplicated Stage 3b chronic kidney disease (CKD) Thoracic spondylosis Tremor of both hands Type 2 diabetes mellitus with stage 3b chronic kidney disease Venous insufficiency Vitamin D deficiency Wellness examination Historical Acute hypoxemic respiratory failure Acute severe refractory exacerbation of asthma Acute ST segment elevation myocardial infarction COPD (chronic obstructive pulmonary disease) Diabetes mellitus type II, non insulin dependent Non-allergic asthma Procedure/Surgical History [facility] - Cataract extraction (11/28/2022), Cardiac catheterization, Mastectomy of right breast. Medications acetaminophen 500 mg Tab, 1000 mg= 2 tab(s), Oral, q6hr, PRN albuterol 90 mcg/inh inhalation powder, 2 puff(s), Inhalation, q6hr, PRN albuterol-ipratropium Inh Juanis 3 mL UD apixaban 5 mg oral tablet, 5 mg= 1 tab(s), Oral, BID, 3 refills atorvastatin 40 mg Tab, 40 mg= 1 tab(s), Oral, Daily, 4 refills Breo Ellipta 100 mcg-25 mcg inhalation powder, 1 puff(s), Inhalation, Daily, 11 refills dapagliflozin 10 mg oral tablet, 10 mg= 1 tab(s), Oral, Daily Fasenra Pen 30 mg/mL subcutaneous solution Flonase Allergy Relief 50 mcg/inh nasal spray, See Instructions, 3 refills furosemide 20 mg Tab, 40 mg= 2 tab(s), Oral, Daily, 4 refills loratadine 10 mg oral capsule, 10 mg= 1 cap(s), Oral, Daily, 4 refills losartan 50 mg Tab, 50 mg= 1 tab(s), Oral, Bedtime metformin 500 mg Tab, 500 mg= 1 tab(s), Oral, BID, 1 refills metoprolol tartrate 100 mg Tab, 100 mg= 1 tab(s), Oral, BID montelukast 10 mg Tab, 10 mg= 1 tab(s), Oral, Daily, 3 refills Nystop 100,000 units/g topical powder, 1 zev, Topical, BID, 1 refills Pantoprazole [address] Tab, Oral, Daily sertraline 50 mg Tab, 50 mg= 1 tab(s), Oral, Daily, 3 refills TRUE METRIX BLOOD GLUCOSE TEST STRP Vitamin D3 2000 intl units oral Tab, 50 mcg, Oral, Daily Allergies Peanuts (Hives) Pineapple (Unknown) Shrimp (Unknown) bacitracin clarithromycin conjugated estrogens penicillin (Unknown) sulfa drugs (Unknown) Social History Alcohol - Denies Alcohol Use, 03/01/2023 Household alcohol concerns: No., 03/08/2023 Substance Abuse - Denies Substance Abuse, 03/01/2023 Household substance abuse concerns: No., 03/01/2023 Tobacco - Denies Tobacco Use, 03/01/2023 Never (less than 100 in l (more content not included)... [facility] Comment on above: Result Comment: Elec tronically Signed By: Oh Wynne\.br\Date and Time Signed: 03/30/24 12:26 EDT Home Health Recordson 2023 [facility] [id number] 0TIFF [facility] Pre-Visit Planningon 024 Pre-Visit Planning - From: Elif Cabrera To: Oh Wynne; Sent: 03/04/2024 15:13:04 EDT Subject: Pre-Visit Planning Due Date/Time: 03/04/2024 15:13:00 EDT Caller Name: KAYLIE SALOMON; Caller Number: Zee , Oscar Ratliff. During a pre-visit planning chart review, I noted the following documentation in the medical record: Current Problem List: Drooling and Tremor of both hands. Current Medication List: sertraline 50 mg daily. 01/09/2024 Office Visit Note: Tremor of both hands (R25.1: Tremor, unspecified) patient and caregiver states her psychiatrist from [facility] started her on ability due to audible hallucinations. since staring the medication she has had hand tremors and drooling. so they have decreased it to 5mg. but she is still having symptoms. would like to wean off of the abilfy to see if symptoms improve. will start taking it every other day for a week then every 2 days for a week until she is weaned off of it. if symptoms do not improve they will contact ODILIA for further evaluation. *No PHQ-9 Score or Psychiatry Consult Notes located in [facility]. Based on your medical judgment, can you please clarify which, if any, of the following conditions are present? I can update the problem list with your specified response if you would like. Major Depressive Disorder, Single Episode ? Major depressive disorder, single episode, mild ? Major depressive disorder, single episode, moderate ? Major depressive disorder, single episode, severe without mention of psychotic behavior ? Major depressive disorder, single episode, severe specified as with psychotic behavior ? Major depressive disorder, single episode, in partial remission ? Major depressive disorder, single episode in full remission Major Depressive Disorder, Recurrent ? Major depressive disorder, recurrent, mild ? Major depressive disorder, recurrent, moderate ? Major depressive disorder, recurrent, severe without mention of psychotic behavior ? Major depressive disorder, recurrent, severe specified as with psychotic behavior ? Major depressive disorder, recurrent, in partial remission ? Major depressive disorder, recurrent, in full remission Other (Please Specify): In responding to this request, please exercise your independent professional judgement. The fact that a question is asked does not imply that any particular answer is desired or expected. If you have any questions, please feel free to contact me at extension [phone]. Thank you! Elif Cabrera LPN From: Oh Wynne To: Elif Cabrera; Sent: 03/06/2024 08:18:11 EDT Subject: RE: Pre-Visit Planning Caller Name: KAYLIE SALOMON; Caller Number: , M major depressive disorder, recurrent moderate Normal [address] [facility] Ambulatory Visit Summaryon 0 03-05-2024 Ambulatory Visit Summary KAYLIE SALOMON :1950 Visit Date:03/05/2024 Ambulatory Visit Instructions Your Diagnosis Annual visit for general adult medical examination without abnormal findings Heart failure, systolic and diastolic Severe persistent asthma, uncomplicated Chronic respiratory failure with hypoxia Paroxysmal atrial fibrillation Type 2 diabetes mellitus with stage 3b chronic kidney disease Hyperlipidemia due to type 2 diabetes mellitus Morbid obesity Stage 3b chronic kidney disease (CKD) Screening declined by patient Primary malignant neoplasm of breast Malignant neoplasm of lower-outer quadrant of female breast Your Care Team Attending Physician - Oh Wynne Primary Care Physician - Oh Wynne This Is Your Medications List Misc Prescription (TRUE METRIX BLOOD GLUCOSE TEST STRP) acetaminophen (acetaminophen 500 mg Tab) albuterol (albuterol 90 mcg/inh inhalation powder) albuterol-ipratropium (albuterol-ipratropium Inh Juanis 3 mL UD) apixaban (apixaban 5 mg oral tablet) atorvastatin (atorvastatin 40 mg Tab) azithromycin (azithromycin 250 mg Tab) benralizumab (Fasenra Pen 30 mg/mL subcutaneous solution) cholecalciferol (Vitamin D3 2000 intl units oral Tab) dapagliflozin (dapagliflozin 5 mg oral tablet) fluticasone nasal (Flonase Allergy Relief 50 mcg/inh nasal spray) fluticasone-vilanterol (Breo Ellipta 100 mcg-25 mcg inhalation powder) furosemide (furosemide 20 mg Tab) loratadine (loratadine 10 mg oral capsule) losartan (losartan 50 mg Tab) metformin (metformin 500 mg Tab) metoprolol (metoprolol tartrate 100 mg Tab) montelukast (montelukast 10 mg Tab) nystatin topical (Nystop 100,000 units/g topical powder) pantoprazole (Pantoprazole [address] Tab) pantoprazole (Protonix 40 mg tablet) predniSONE (predniSONE 10 mg Tab) sertraline (sertraline 50 mg Tab) Procedures Performed CE - Cataract extraction (11/28/2022), Cardiac catheterization, Mastectomy of right breast. What to do next Scheduled Follow-Up Appointments Saturday 11:20 AM EDT With: Oh Wynne Where: [facility] Invalid Interpretation Code [address] [place] [address]- \.br\ You Need to Complete the Following\.br \ HgbA1c, Blood, Routine collect, 03/05/24, Order for future visit, Lab Collect, Type 2 diabetes mellitus with stage 3b chronic kidney disease [facility] Medicine Office/Clini c Noteon 03-05-2024 Family Medicine Office/Clinic Note Assessment/Plan 1. Annual visit for general adult medical examination without abnormal findings (Z00.00: Encounter for general adult medical examination without abnormal findings) Patient was accompanied by Caregiver Ruddy who helped patient answer questions regarding care. Discussed all the current AHRQ USPSTF?s recommendations for preventative services and all current CDC recommended immunizations, relevant risk recommendations and the following patient brochures were given. Reviewed Medicare Prevention Services checklist. CDC-Falls Prevention and home safety screening reviewed. Patient denies any falls in last 12 months, voices no worry about falling. Exhibits no problems with sitting, standing or ambulation. Patient aware with keeping walk way area free of clutter to prevent tripping and/or falling. [place] Advance Directives reviewed. Documents remain at home/ and in patient chart. Patient gets assistance with ADL's and Instrumental ADL's, patient has caregivers that come and stay with her for several hours each day and a daily visiting nurse from [place]. Cognitive screening completed with memory and clock face drawing. No deficits noted. Immunization record reviewed, discussed Shingrix vaccine with educational handout and availability. COVID vaccines have been administered, with Boosters received. Allergies and medications reviewed and up to date. No concerns with taking medication as prescribed. Reviewed OTC medications, medication list up to date. Blood tests were reviewed: Discussed what tests need to be updated. Labs were ordered, will have completed at next PCP visit. No concerns with bowel/ bladder. Colonoscopy: Aged out. Reviewed pain symptoms : denies pain. Reviewed all outside providers that patient follows. Last visit summary notes available in chart and/or have been requested. Patient declines any signs or symptoms of depression at this time. 8 minutes spent with screening and documentation. PHQ2 screening score 1. Patient denies alcohol use, denies concerns. 8 minutes spent with screening and documentation. Audit score 0. Follow up scheduled with PCP, 03/30/24. AWV has been scheduled, 03/04/25. Patient qualifies for Chronic Care Management. Offered and declined by patient caregiver as patient has a visiting RN everyday through [place]. Medicare provides yearly screening for alcohol and depression concerns. This is completed during our Medicare wellness visit for those who do not have a current diagnosis of depression or concerns with alcohol use. I spent a total of 16 minutes on this date of service which included preparing to see the patient, face to face patient care, completing clinical documentation, obtaining and/or reviewing separately obtained history, counseling and educating the patient with handouts. Explanations were provided with reviewing questionnaires. AUDIT risk assessment screening completed, risk score (0) with patient denying concerns with use. Completed PHQ-2 risk assessment for depression with risk score (1), negative findings. Patient has been reminded to notify the provider if there would be a change or concerns with symptoms with fear, unable to sleep, worrying too much or feeling down and/or sad with lost of interest with daily activities. Will continue to monitor with screening yearly during Medicare wellness visits. 2. Heart failure, systolic and diastolic (I50.40: Unspecified combined systolic (congestive) and diastolic (congestive) heart failure) Patient denies any chest pain/pressure, no sudden weight gain, or shortness of breath. Voices no fatigue or increased need to urinate. Heart rate 63 today. Reviewed nutritional recommendations with handouts provided. Voices understanding with signs and symptoms to monitor for and report to provider. Patient has a visiting nurse that comes daily from [place] and follows with Cardiology, Dr. Gil, every 6 months and more as needed. Last office visit 12/11/23 visit summary notes available in chart for PCP review. Per caregiver patient is going to [facility] to get labs done for cardiology today. 3. Severe persistent asthma, uncomplicated (J45.50: Severe persistent asthma, uncomplicated) Patient takes inhalers as directed, uses PRN nebulizer treatments and inhaler when needed. Follows Dr. Castellon, [facility], yearly and as needed. Patient remains on R/A, o2Sat 92% today, respirations 20, non-labored. Will follow up as needed with Dr. Castellon. 4. Chronic respiratory failure with hypoxia (J96.11: Chronic respiratory failure with hypoxia) See #3. 5. Paroxysmal atrial fibrillation (I48.0: Paroxysmal atrial fibrillation) Follows [employer]orem[facility] Supervisor, Dr. Gil every 6 months and as needed. Denies SOB, chest pain or irregular heart rhythm. Manages medications, Eliquis and Metoprolol with office visits. Cardiac-/DASH nutritional education handout reviewed with patient and provided. Tries following healthy dietary intake. Last visit office notes are available in medical (more content not included)... [facility] Comment on above: Result Comment: Elec tronically Signed By: Oh Wynne\.br\Date and Time Signed: 03/05/24 13:34 EDT\.br\Electronically Co-Signed By: Myah Ballard LPN\.br\Date and Time Co-Signed: 03/05/24 12:43 EDT Lab Reportson 03-05-2024 Lab Reports [id number] TIFF [facility] Patient Educationon 03-05-20 Patient Education Endocrinology Diabetes Mellitus and Foot Care Foot care is an important part of your health, especially when you have diabetes. Diabetes may cause you to have problems because of poor blood flow (circulation) to your feet and legs, which can cause your skin to: ? Become thinner and drum drier. ? Break more easily. ? Heal more slowly. ? Peel and crack. You may also have nerve damage (neuropathy) in your legs and feet, causing decreased feeling in them. This means that you may not notice minor injuries to your feet that could lead to more serious problems. Noticing and addressing any potential problems early is the best way to prevent future foot problems. How to care for your feet Foot hygiene ? Wash your feet daily with warm water and mild soap. Do not use hot water. Then, pat your feet and the areas between your toes until they are completely dry. Do not soak your feet as this can dry your skin. ? Trim your toenails straight across. Do not dig under them or around the cuticle. File the edges of your nails with an emery board or nail file. ? Apply a moisturizing lotion or petroleum jelly to the skin on your feet and to dry, brittle toenails. Use lotion that does not contain alcohol and is unscented. Do not apply lotion between your toes. Shoes and socks ? Wear clean socks or stockings every day. Make sure they are not too tight. Do not wear knee-high stockings since they may decrease blood flow to your legs. ? Wear shoes that fit properly and have enough cushioning. Always look in your shoes before you put them on to be sure there are no objects inside. ? To break in new shoes, wear them for just a few hours a day. This prevents injuries on your feet. Wounds, scrapes, corns, and calluses ? Check your feet daily for blisters, cuts, bruises, sores, and redness. If you cannot see the bottom of your feet, use a mirror or ask someone for help. ? Do not cut corns or calluses or try to remove them with medicine. ? If you find a minor scrape, cut, or break in the skin on your feet, keep it and the skin around it clean and dry. You may clean these areas with mild soap and water. Do not clean the area with peroxide, alcohol, or iodine. ? If you have a wound, scrape, corn, or callus on your foot, look at it several times a day to make sure it is healing and not infected. Check for: ? Redness, swelling, or pain. ? Fluid or blood. ? Warmth. ? Pus or a bad smell. General tips ? Do not cross your legs. This may decrease blood flow to your feet. ? Do not use heating pads or hot water bottles on your feet. They may burn your skin. If you have lost feeling in your feet or legs, you may not know this is happening until it is too late. ? Protect your feet from hot and cold by wearing shoes, such as at the beach or on hot pavement. ? Schedule a complete foot exam at least once a year (annually) or more often if you have foot problems. Report any cuts, sores, or bruises to your health care provider immediately. Where to find more information ? [place] [employer]: www.diabetes.org ? Association of Diabetes Care & Education Specialists: www.diabeteseducator.o rg Contact a health care provider if: ? You have a medical condition that increases your risk of infection and you have any cuts, sores, or bruises on your feet. ? You have an injury that is not healing. ? You have redness on your legs or feet. ? You feel burning or tingling in your legs or feet. ? You have pain or cramps in your legs and feet. ? Your legs or feet are numb. ? Your feet always feel cold. ? You have pain around any toenails. Get help right away if: ? You have a wound, scrape, corn, or callus on your foot and: ? You have pain, swelling, or redness that gets worse. ? You have fluid or blood coming from the wound, scrape, corn, or callus. ? Your wound, scrape, corn, or callus feels warm to the touch. ? You have pus or a bad smell coming from the wound, scrape, corn, or callus. ? You have a fever. ? You have a red line going up your leg. Summary ? Check your feet every day for blisters, cuts, bruises, sores, and redness. ? Apply a moisturizing lotion or petroleum jelly to the skin on your feet and to dry, brittle toenails. ? Wear shoes that fit properly and have enough cushioning. ? If you have foot problems, report any cuts, sores, or bruises to your health care provider immediately. ? Schedule a complete foot exam at least once a year (annually) or more often if you have foot problems. This information is not intended to replace advice given to you by your health care provider. Make sure you discuss any questions you have with your health care provider. Document Revised: 04/06/2021 Document Reviewed: 04/06/2021 [employer] Patient Education ? 2022 [employer] Diabetes Mellitus and Nutrition, Adult When you have diabetes, or diabetes mellitus, it is very important to (more content not included)... [facility] Pre-Visit Planningon 024 Pre-Visit Planning - From: Elif Cabrera To: Oh Wynne; Sent: 03/04/2024 15:22:41 EDT Subject: Pre-Visit Planning Due Date/Time: 03/04/2024 15:22:00 EDT Caller Name: KAYLIE SALOMON; Caller Number: Zee , Alesia Oscar Ratliff. During a pre-visit planning chart review, I noted the following documentation in the medical record: Glomerular filtration rate (GFR): =44.9 on 10/31/2023, =61 on 03/14/2023, and >60 on 07/23/2022. Based on your medical judgment, can you please clarify which, if any, of the following conditions are present? Select all that apply: -Chronic Kidney Disease Stage 3a (GFR 45-59) -Chronic Kidney Disease Stage 3b (GFR 30-44) -Chronic Kidney Disease Stage 2 (GFR 60-89) -Other (please specify): In responding to this request, please exercise your independent professional judgment. The fact that a question is asked does not imply that any particular answer is desired or expected. If you have any questions, please feel free to contact me at extension [phone]. Thank you! Elif Cabrera LPN From: Oh Wynne To: Elif Cabrera; Sent: 03/05/2024 08:17:33 EDT Subject: RE: Pre-Visit Planning Caller Name: KAYLIE SALOMON; Caller Number: Zee , M chronic kidney disease stage 3b Normal [address] [place] [address] RAD - CT Reporton 03-05-2024 RAD - CT Report [id number] 0TIFF [facility] Screenson 03-05-2024 Screens [id number] 0TIFF [facility] Pre-Visit Planningon 024 Pre-Visit Planning - From: Elif Cabrera To: Oh Wynne; Sent: 03/04/2024 15:01:12 EDT Subject: Pre-Visit Planning Due Date/Time: 03/04/2024 15:01:00 EDT Caller Name: KAYLIE SALOMON; Caller Number: Zee , M Oscar Epperson During a pre-visit planning chart review, I noted the following documentation in the medical record: Current Problem List: Malignant neoplasm of lower-outer quadrant of female breast and Malignant neoplasm of unspecified site of unspecified female breast. 03/01/2023 Office Visit Note: Establish Care: History- hx of breast CA. 06/27/2023 Outside Mammography: *No Oncology Consult [facility]. Based on your medical judgment, can you please clarify if History of breast cancer or Breast cancer is present? I can update the problem list with your specified response if you would like. In responding to this request, please exercise your independent professional judgment. The fact that a question is asked does not imply that any particular answer is desired or expected. If you have any questions, please feel free to contact me at extension [phone]. Thank you! Elif Cabrera LPN Invalid Interpretation Code [address] [facility] Orders Onlyon 02-25-2024 Orders Only [id number] Kaylie Salomon 1950 [facility] Provider Department [place] 02/25/2024 ELIF ACOSTA [facility]. Family History Problem Relation Age of Onset Heart failure Mother Family Status - Relation Status Age at Mother Normal [facility] Office Visiton 02-11-2024 Follow-up visit [id number] Kaylie Salomon 1950 [facility] Provider Department [place] 02/11/2024 BRIAN DIXON AFUA [facility] Family History Problem Relation Age of Onset Heart failure Mother Family Status - Relation Status Age at Mother Level of Service:69817 [place] OFFICE/OUTPATIENT ESTABLISHED LOW MDM 20 MIN Normal [facility] [id number] 02-07-2024 [id number] PRE OP INSTRUCTIONS GIVEN TO INFANTRYMAN RUDDY [phone] ARRIVAL TIME 1030 HOLD ELIQUIS 02/10 MEDICATIONS TO TAKE DAY OF SURGERY WITH SIP OF WATER ALBUTEROL INHALER BREO ELLIPTA METOPROLOL PROTONIX RUDDY AGREES TO BRING PT TO [facility] FOR LABS ON 02/10 ASKED NELLIE Trevino RN TO SEND LAB ORDERS TO [facility] ON 02/05 HOLD VITAMINS AND SUPPLEMENTS 5 DAYS PRIOR TO PROCEDURE HOLD ALL ANTI INFLAMMATORIES ETC:MOTRIN, ADVIL, ALEVE, FOR 5 DAYS PRIOR TO PROCEDURE IF YOU ARE GOING HOME AFTER YOUR SURGERY OR PROCEDURE, FOR YOUR SAFETY, YOUR SURGERY WILL BE CANCELLED IF BOTH OF THE FOLLOWING ARE NOT AVAILABLE: An adult semi truck driver over the age of 18, that can receive information about your care after surgery, and drive you home. A responsible adult to stay with you for 24 hours in case of an emergency. Can be same as above. The highest risk of complications is within the first 24 hours after sedation/anesthesia. Nothing to eat or drink after midnight the night before surgery. This includes gum, candy, mints, and lozenges. No alcohol, marijuana, or tobacco products including vaping for 24 hours. Please brush your teeth; don't swallow the toothpaste or water. If you use dentures, wear them but do not use paste. Please leave any other removable dental hardware at home. Do not put in contact lenses. Do not wear perfume, make-up, nail albanian, or lotions on the day of your surgery or procedure. Follow skin-prep/wipe instructions as below if required. Bring with you: *Insurance card *Photo ID *Medication list *Co-pay for visit/prescriptions If applicable: *Rescue inhalers *Green bracelet from lab *CPAP or BiPAP machine, if staying overnight *Any braces, splints, or equipment ordered preoperatively *Remote controls for implanted devices Leave at home: *Purse/Wallet/[place]- unless needed for co-pay *Cell phone (can leave with family/friend or place in locker if needed) *Jewelry (including piercings and wedding bands) *If not possible, ask the person who is waiting with you to keep them Children under the age of 12 will not be allowed into patient care areas. We will call you between 3pm and 4pm the day before your surgery to give you an arrival time. If you do not receive this call, have any questions, or need to make any changes, please call [phone]. Notify your surgeon if you develop any illness such as a cold, cough, fever, sore throat or vomiting between now and your surgery. Thank you for entrusting us with your care. [facility] Surgical Services Team Normal [facility] Orders Onlyon 02-07-2024 Orders Only [id number] Kaylie Salomon 1950 F Date Provider Department Center 02/07/2024 1987-[facility] Family History Problem Relation Age of Onset Heart failure Mother Family Status - Relation Status Age at Mother Normal [facility] Home Health Recordson 2023 Home Health Records [id number] 0TIFF [facility] Ambulatory Visit Summaryon 0 01-09-2024 Ambulatory Visit Summary KAYLIE SALOMON :1950 Visit Date:01/09/2024 Ambulatory Visit Instructions Your Diagnosis Tremor of both hands Drooling Your Care Team Attending Physician - hO Wynne Primary Care Physician - Oh Wynne This Is Your Medications List [facility] Prescription (TRUE METRIX BLOOD GLUCOSE TEST STRP) acetaminophen (acetaminophen 500 mg Tab) albuterol-ipratropium (albuterol-ipratropium Inh Juanis 3 mL UD) apixaban (apixaban 5 mg oral tablet) atorvastatin (atorvastatin 40 mg Tab) benralizumab (Fasenra Pen 30 mg/mL subcutaneous solution) cholecalciferol (Vitamin D3 2000 intl units oral Tab) dapagliflozin (dapagliflozin 5 mg oral tablet) fluticasone nasal (Flonase Allergy Relief 50 mcg/inh nasal spray) fluticasone-salmeterol (Advair Diskus 250 mcg-50 mcg inhalation powder) fluticasone-vilanterol (Breo Ellipta 100 mcg-25 mcg inhalation powder) furosemide (furosemide 20 mg Tab) loratadine (loratadine 10 mg oral capsule) losartan (losartan 100 mg Tab) metformin (metformin 500 mg Tab) metoprolol (Metoprolol tartrate 50 mg Tab) montelukast (montelukast 10 mg Tab) nystatin topical (Nystop 100,000 units/g topical powder) pantoprazole (Pantoprazole [address] Tab) potassium chloride (Potassium Chloride (Eqv-K-Tab) 20 mEq oral tablet, extended release) predniSONE (predniSONE 10 mg Tab) predniSONE (predniSONE 10 mg Tab) prochlorperazine (prochlorperazine 5 mg Tab) sertraline (sertraline 50 mg Tab) Procedures Performed CE - Cataract extraction (11/28/2022), Cardiac catheterization, Mastectomy of right breast. Discharge Vitals Heart Rate (Peripheral) 65 Blood Pressure 138/72 Height 164 cm Height 65 in Weight 119.9 kg Weight 263.78 lb BMI 44.58 What to do next Scheduled Follow-Up Appointments 2023 11:00 AM EDT Where: [facility] Medicine [place] Normal [facility] Office/Clini c Noteon 01-09-2024 Family Medicine Office/Clinic Note Chief Complaint tremors and drooling HPI Staff Kaylie is a 74 year old female presenting for acute visit. Present with caregiver. Onset: 3 weeks ago Tremors in hands and drooling. Fine motor skills have also decreased. Patient does not feel the drooling. Previously seen ODILIA 07/3024 History of Present Illness pt presents today for tremors and drooling Review of Systems PHQ Score Initial Depression Screen Score: 0 SCORE Physical Exam Vitals & Measurements HR: 65(Peripheral) BP: 138/72 SpO2: 98% HT: 65 in HT: 164 cm WT: 119.9 kg WT: 263.78 lb BMI: 44.58 General: alert, no acute distress ENMT: oral mucosa moist, no pharyngeal erythema or exudate Cardiovascular: regular rate and rhythm, normal peripheral perfusion Respiratory: Lungs CTA, respirations non labored Extremities: no deformity, no trauma Neurological: oriented x 4, LOC appropriate for age, CN II-XII intact, motor strength equal & normal bilaterally, speech normal Assessment/Plan 1. Tremor of both hands (R25.1: Tremor, unspecified) patient and caregiver states her psychiatrist from [facility] started her on ability due to audible hallucinations. since staring the medication she has had hand tremors and drooling. so they have decreased it to 5mg. but she is still having symptoms. would like to wean off of the abilfy to see if symptoms improve. will start taking it every other day for a week then every 2 days for a week until she is weaned off of it. if symptoms do not improve they will contact ODILIA for further evaluation. Ordered: Body Mass Index (BMI) documented 3008F Current tobacco non-user 1036F Depression Screening Negative 3352F Medication list documented in medical record 1159F Patient screen for fall risk: no falls in last year or 1 fall with no injury in last year 1101F 2. Drooling (K11.7: Disturbances of salivary secretion) see above. Ordered: Body Mass Index (BMI) documented 3008F Current tobacco non-user 1036F Depression Screening Negative 3352F Medication list documented in medical record 1159F Patient screen for fall risk: no falls in last year or 1 fall with no injury in last year 1101F 3. 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 mellitus type II, non insulin dependent Drooling Gastroesophageal reflux disease Heart failure, systolic and diastolic Hyperlipidemia due to type 2 diabetes mellitus Hypertensive disorder Hypoxemia Iron deficiency anemia secondary to inadequate dietary iron intake Lumbosacral spondylosis Malignant neoplasm of lower-outer quadrant of female breast Non-allergic asthma Paroxysmal atrial fibrillation Primary malignant neoplasm of breast Severe persistent asthma, uncomplicated Thoracic spondylosis Tremor of both hands Venous insufficiency Vitamin D deficiency Historical No qualifying data Procedure/Surgical History CE - Cataract extraction (11/28/2022), Cardiac catheterization, Mastectomy of right breast. Medications acetaminophen 500 mg Tab, 1000 mg= 2 tab(s), Oral, q6hr, PRN Advair Diskus 250 mcg-50 mcg inhalation powder, Not taking: not on home med list albuterol-ipratropium Inh Juanis 3 mL UD apixaban 5 mg oral tablet, 5 mg= 1 tab(s), Oral, BID, 3 refills atorvastatin 40 mg Tab, 40 mg= 1 tab(s), Oral, Daily, 3 refills Breo Ellipta 100 mcg-25 mcg inhalation powder, 1 puff(s), Inhalation, Daily dapagliflozin 5 mg oral tablet, 5 mg= 1 tab(s), Oral, Daily, 3 refills Fasenra Pen 30 mg/mL subcutaneous solution Flonase Allergy Relief 50 mcg/inh nasal spray, See Instructions furosemide 20 mg Tab, 40 mg= 2 tab(s), Oral, Daily, 3 refills loratadine 10 mg oral capsule, 10 mg= 1 cap(s), Oral, Daily, 3 refills losartan 100 mg Tab, 100 mg= 1 tab(s), Oral, Daily, 3 refills metformin 500 mg Tab, 500 mg= 1 tab(s), Oral, BID, 1 refills Metoprolol tartrate 50 mg Tab montelukast 10 mg Tab, 10 mg= 1 tab(s), Oral, Daily, 3 refills Nystop 100,000 units/g topical powder, 1 zev, Topical, BID, 1 refills Pantoprazole [address] Tab, 20 mg= 1 tab(s), Oral, Daily, 3 refills Potassium Chloride (Eqv-K-Tab) 20 mEq oral tablet, extended release, 20 mEq= 1 tab(s), Oral, BID, 3 refills predniSONE 10 mg Tab, 30 mg= 3 tab(s), Oral, Once, 1 refills, Not taking: not on home med list predniSONE 10 mg Tab, See Instructions, 1 refills, Not taking: not on home med list prochlorperazine 5 mg Tab sertraline 50 mg Tab, 50 mg= 1 tab(s), Oral, Daily, 3 refills TRUE METRIX BLOOD GLUCOSE TEST STRP Vitamin D3 2000 intl units oral Tab, 50 mcg, (more content not included)... Normal [facility] Comment on above: Result Comment: Elec tronically Signed By: Oh Wynne\.br\Date and Time Signed: 01/09/24 12:53 EDT BASIC METABOLIC PANELon 04-0 Anion gap [Moles/Vol] 12 mmol/L Normal 7-20 [facility] Comment on above: Performed By: #### L AB15 #### [facility] ([facility]) [address] [place] [address] Calcium [Mass/Vol] 9.4 mg/dL Normal 8.6-10.3 [facility] Comment on above: Performed By: #### L [id number] #### [facility] ([facility]) [address] [place] [address] Chloride [Moles/Vol] 98 mmol/L Normal 98-107 [facility] Comment on above: Performed By: #### L [id number] #### [facility] ([facility]) [address] [place] [address] CO2 [Moles/Vol] 34 mmol/L High 21-31 [facility] Comment on above: Performed By: #### L [id number] #### [facility] ([facility]) [address] [place] [address] Creatinine [Mass/Vol] 1.63 mg/dL High 0.60-1.20 [facility] Comment on above: Performed By: #### L [id number] #### [facility] ([facility]) [address] [place] [address] GLOMERULAR FILTRATION RATE ML/MIN/1.73 SQ M.PREDICTED 32.5 mL/min/1.73m*2 Low >60.0 [facility] Comment on above: Result Comment: The [facility]???s estimated glomerular filtration rate (eGFR) will no longer include consideration of race in its calculation. The National Kidney Foundation???s eGFR Task Force developed new recommendations for the estimation of the glomerular filtration rate in the [place] They recommend immediate implementation of the new equation refit without the race variable in all laboratories because the calculation does not include race. In addition to not including race in the calculation and reporting, it included diversity in its development, and has acceptable performance characteristics and potential consequences that do not disproportionately affect any one group of individuals. Performed By: #### L [id number] #### [facility] ([facility]) [address] [place] [address] Glucose [Mass/Vol] 84 mg/dL Normal 70-100 [facility] Comment on above: Performed By: #### L [id number] #### [facility] ([facility]) [address] [place] [address] Potassium [Moles/Vol] 4.2 mmol/L Normal 3.5-5.1 [facility] Comment on above: Performed By: #### L [id number] #### [facility] ([facility]) [address] [place] [address] Sodium [Moles/Vol] 140 mmol/L Normal 136-145 [facility] Comment on above: Performed By: #### L AB15 #### [facility] ([facility]) [address] [place] [address] Urea nitrogen [Mass/Vol] 49 mg/dL High 7-25 [facility] Comment on above: Performed By: #### L [id number] #### [facility] ([facility]) [address] [place] [address] UREA NITROGEN/CREATININE (MASS RATIO) IN SER/PLAS 30.1 Normal [facility] Comment on above: Performed By: #### L [id number] #### [facility] ([facility]) [address] [place] [address] CBCon 01-07-2024 Erythrocyte distribution width (RBC) [Ratio] 15.9 % High 11.5-15.0 [facility] Comment on above: Performed By: #### L [id number] #### [facility] ([facility]) [address] [place] [address] ERYTHROCYTE MEAN CORPUSCULAR HEMOGLOBIN CONCENTRATION (G/DL) BY AUTOMATED 30.8 g/dL Low 32.0-35.0 [facility] Comment on above: Performed By: #### L [id number] #### [facility] ([facility]) [address] [place] [address] Hematocrit (Bld) [Volume fraction] 35.4 % Low 36.0-48.0 [facility] Comment on above: Performed By: #### L [id number] #### [facility] ([facility]) [address] [place] [address] Hemoglobin (Bld) [Mass/Vol] 10.9 g/dL Low 12.0-15.0 [facility] Comment on above: Performed By: #### L [id number] #### [facility] ([facility]) [address] [place] [address] MCH (RBC) [Entitic mass] 29.6 pg Normal 27.0-33.0 [facility] Comment on above: Performed By: #### L [id number] #### [facility] ([facility]) [address] [place] [address] MCV (RBC) [Entitic vol] 96.2 fL Normal 82.0-98.0 [facility] Comment on above: Performed By: #### L [id number] #### [facility] ([facility]) [address] [place] [address] PLATELETS (10*3/UL) IN BLOOD AUTOMATED COUNT 244 10*3/uL Normal 150-400 [facility] Comment on above: Performed By: #### L [id number] #### [facility] ([facility]) [address] [place] [address] RBC (Bld) [#/Vol] 3.68 10*6/uL Low 3.80-5.00 [facility] Comment on above: Performed By: #### L [id number] #### [facility] ([facility]) [address] [place] [address] WBC (Bld) [#/Vol] 7.68 10*3/uL Normal 4.00-10.60 [facility] Comment on above: Performed By: #### L [id number] #### [facility] ([facility]) [address] [place] [address] CTA CHEST W IV CONTRASTon CTA CHEST W IV CONTRAST CTA CHEST W IV CONTRAST 01/07/2024 1:24 PM CLINICAL INDICATIONS: Paroxysmal atrial fibrillation. Preablation evaluation. PROTOCOL: Gated chest CTA examination CONTRAST: 100 mL Omnipaque 350 TECHNIQUE: Multidetector CT axial slices of the chest were obtained with IV contrast. Multiplanar reformats were performed and viewed on a separate workstation and reviewed to further define anatomy and possible pathology. 3-D volume rendered images of the left atrium and draining pulmonary veins as well as the left atrial appendage are obtained in various projections and saved on PACS. All CT scans at this facility use dose modulation, iterative reconstruction, and/or weight based dosing when appropriate to reduce radiation dose to as low as reasonably achievable. COMPARISON: None. FINDINGS: Lower neck: Visualized part of the Thyroid gland within normal limits, no supraclavicle adenopathy. Vessels: Pulmonary arteries are Within normal limits. Minimal atherosclerotic changes in the aorta. and coronary arteries. Mediastinum and Norma: Within normal limits. Heart: Normal size. No pericardial effusion. Airways: Within normal limits Lungs: Pleural-based parenchymal opacity which is segmental seen in the right middle lobe in axial image 25 series 9 which may represent subsegmental atelectasis. Possibility of pulmonary mass cannot be excluded. Pleura: Within normal limits. Chest Wall: Absent right breast and external prosthesis is visualized suggesting prior breast cancer and mastectomy. Upper Abdomen: Large cyst in the left kidney posterior cortex. No other abnormalities in the upper abdomen. Bones: Mild bony spurring suggesting mild thoracic spondylosis. There is normal size and configuration of the left atrium which measures 8.5 cm x 5.4 cm in maximum transverse dimensions. The left atrial appendage was no filling defects is visualized and the ostium measures 1.8 cm in diameter. The appendage is approximately 4.1 cm in length. The left superior pulmonary vein ostium is 2.17 diameter and first branch is approximately 3.4 cm from the ostium. The left inferior pulmonary vein ostium is 1.9 cm in diameter and first branch is approximately 2.2 cm from the ostium. The right superior pulmonary vein ostium is 2 cm in diameter and first branch is approximately 2.6 cm from the ostium. The right inferior pulmonary vein ostium is 1.9 cm in diameter and first branch is approximately 2.4 cm from the ostium. The esophagus is immediately posterior to the left atrium and adjacent to the ostium of the left inferior pulmonary vein. IMPRESSION: Normal size and confirmation of the left atrium and no filling defects in the left atrial appendage. 2 pulmonary veins are seen on each side with the measurements described above. The esophagus is closest to the ostium of the left inferior pulmonary vein. Segmental opacity in the right middle lobe measuring 2.2 x 1.2 cm which may represent atelectasis and could be post radiation atelectasis in view of absence right breast from mastectomy and external prosthesis seen. Correlation with past surgical and radiotherapy history is suggested. If there is concern for possible primary lung malignancy or metastatic lesion, PET/CT may be helpful in further evaluation. Electronically signed: Steven Solomon. Not Joyce Invalid Interpretation Code [facility] Comment on above: Order Comment: Doroteo keith schedule prior to February 12 Labon 01-07-2024 Lab [id number] Kaylie Salomon A 1950 Date Provider Department [place] 01/07/2024 2245-[facility] RESOURCE [facility] [place] Medical C Family History Problem Relation Age of Onset Heart failure Mother Family Status - Relation Status Age at Mother Normal [facility] Orders Onlyon 01-07-2024 Orders Only [id number] Kaylie Salomon A 1950 Date Provider Department [place] 01/07/2024 241-[facility] GIL [facility] AFUA Duncan Family History Problem Relation Age of Onset Heart failure Mother Family Status - Relation Status Age at Mother Normal [facility] Orders Only [id number] Kaylie Salomon A 1950 Date Provider Department Center 01/07/2024 120ELIF LINDQUIST Family History Problem Relation Age of Onset Heart failure Mother Family Status - Relation Status Age at Mother Normal [facility] Prep for Procedureon 024 Prep for Procedure [id number] Kaylie Salomon A 1950 Provider Department [place] 01/03/2024 1987-FILIPE ANSARI [facility] [place] HeartVAS Family History Problem Relation Age of Onset Heart failure Mother Family Status - Relation Status Age at Mother Normal [facility] Consultation Noteon 12-13-19 24 Consultation Note [id number] .00TIFF Normal [facility] Orders Onlyon 12-13-2023 Orders Only [id number] Kaylie Salomon A 1950 Date Provider Department Center 12/13/2023 120ELIF LINDQUIST. Family History Problem Relation Age of Onset Heart failure Mother Family Status - Relation Status Age at Mother Normal [facility] Office Visiton 12-11-2023 Follow-up visit [id number] Ruiz A 1950 F Date Provider Department Center 12/11/2023 ELIF ACOSTA [facility] Family History Problem Relation Age of Onset Heart failure Mother Family Status - Relation Status Age at Mother Level of Service:49188 [place] OFFICE/OUTPATIENT ESTABLISHED MOD MDM 30 MIN Normal [facility] Plan of Care - PT/OT/Speecho n 12-05-2023 Plan of Care - PT/OT/Speech [id number]#1.0 0TIFF [facility] Telephoneon 11-29-2023 Telephone [id number] Kaylie Salomon 1950 Date Provider Department Center 11/29/2023 BRIAN DIXON [facility] Family History Problem Relation Age of Onset Heart failure Mother Family Status - Relation Status Age at Mother Reason for Visit and Comments: Med Refill [[id number]] Normal [facility] Physician Referralon 024 Physician Referral [id number] 0TIFF [facility] Home Health Recordson 2023 Home Health Records [id number] 0TIFF [facility] Cardiovascular Reporton Cardiovascular Report [id number]#1.0 0TIFF [facility] Lab Reportson 11-01-2023 Lab Reports [id number]#1.0 0TIFF [facility] 36on 10-31-2023 36 I called Miguelina and told her thyroid labs abnormal. I confirmed PCP. The PCP office is currently closed and unable to get fax number. I will get sent next Saturday when I am back in the office. Normal [facility] BASIC METABOLIC PANELon Anion gap [Moles/Vol] 9 mmol/L Normal 7- [facility] Comment on above: Performed By: #### L [id number] ####[facility] ([facility])[address] [place] [address] Calcium [Mass/Vol] 9.4 mg/dL Normal 8.6-10.3 [facility] Comment on above: Performed By: #### L AB15 ####[facility] ([facility])[address] [place] [address] Chloride [Moles/Vol] 101 mmol/L Normal 98-107 [facility] Comment on above: Performed By: #### L AB15 ####[facility] ([facility])[address] [place] [address] CO2 [Moles/Vol] 35 mmol/L High 21-31 [facility] Comment on above: Performed By: #### L [id number] ####[facility] ([facility])[address] [place] [address] Creatinine [Mass/Vol] 1.25 mg/dL High 0.60-1.20 [facility] Comment on above: Performed By: #### L AB15 ####[facility] ([facility])[address] [place] [address] GLOMERULAR FILTRATION RATE ML/MIN/1.73 SQ M.PREDICTED 44.9 mL/min/1.73m*2 Low >60.0 [facility] Comment on above: Result Comment: The [facility]???s estimated glomerular filtration rate (eGFR) will no longer include consideration of race in its calculation. The National Kidney Foundation???s eGFR Task Force developed new recommendations for the estimation of the glomerular filtration rate in the [place] They recommend immediate implementation of the new equation refit without the race variable in all laboratories because the calculation does not include race. In addition to not including race in the calculation and reporting, it included diversity in its development, and has acceptable performance characteristics and potential consequences that do not disproportionately affect any one group of individuals. Performed By: #### L AB15 ####[facility] ([facility])[address] [place] [address] Glucose [Mass/Vol] 125 mg/dL High 70-100 [facility] Comment on above: Performed By: #### L AB15 ####[facility] ([facility])[address] [facility] [address] Potassium [Moles/Vol] 4.2 mmol/L Normal 3.5-5.1 [facility] Comment on above: Performed By: #### L AB15 ####[facility] ([facility])[address] [facility] [address] Sodium [Moles/Vol] 141 mmol/L Normal 136-145 [facility] Comment on above: Performed By: #### L AB15 ####[facility] ([facility])[address] [facility] [address] Urea nitrogen [Mass/Vol] 42 mg/dL High 7-25 [facility] Comment on above: Performed By: #### L AB15 ####[facility] ([facility])[address] [facility] [place] [place] [address] UREA NITROGEN/CREATININE (MASS RATIO) IN SER/PLAS 33.6 Normal [facility] Comment on above: Performed By: #### L AB15 ####[facility] ([facility])[address] [facility] [address] HPon 10-31-2023 [facility] Electrophysiology Consult Note Reason for visit: A-fib, HFpEF HPI: Kaylie Salomon is a 73 y.o. year old with past medical history of Paroxysmal A-fib RVR, asthma, HFpEF as BNP was elevated in 2019 and was then treated with Lasix on discharge and HFpEF is induced by tachyarrhythmia it appears, nonobstructive CAD, GERD, hypertension, MRDD, depression, breast Ca with radiation theray 2018 or 2019, no prior diagnosis of AF prior to radiation. Patient accompanied by caregiver Patient referred to EP clinic for A-fib. She was found to be in A-fib 04/2023 per ECG and metoprolol was increased. She appears to be asymptomatic. she does have episodes of heart failure exacerbation and was previously seen by the heart failure team as well as Pietro SEPULVEDA. Melissa Torres CNP increased lasix to 40mg in the AM and 20mg in the PM at last visit on 08/29/2023. She has responded well to increase in lasix. She denies chest pain, palpitations, and lightheadedness. SOB and LE edema are much improved. She denies any complaints of chest pain, shortness of breath, BOSCH, LE edema. But on exam it is obvious that she gets short of breath at the end of her sentences. it appears that she has never been cardioverted before ECG AF hr 104bpm PMH: Past Medical History: Diagnosis Date Atrial fibrillation (CMS/HCC) Diabetes (CMS/HCC) GERD (gastroesophageal reflux disease) Hypertension Myocardial infarct (CMS/HCC) PSH: Past Surgical History: Procedure Laterality Date CARDIAC CATHETERIZATION 01/16/2019 SH: Social Determinants of Health Tobacco Use: Low Risk (05/21/2023) Patient History Smoking Tobacco Use: Never Smokeless Tobacco Use: Never Passive Exposure: Not on file Alcohol Use: Not on file Financial Resource Strain: Not on file Food Insecurity: Not on file Transportation Needs: Not on file Physical Activity: Not on file Stress: Not on file Social Connections: Not on file Intimate Partner Violence: Not on file Depression: Not on file Housing Stability: Not on file Utilities: Not on file Allergies: Allergies Allergen Reactions Peanut Anaphylaxis Bacitracin Bromelains Clarithromycin Other and Unknown Conjugated Estrogens Unknown Estrogens, Conjugated Neomycin Sulfate Paclitaxel Other Numbness,tingling and elevated blood pressure Pineapple Polymyxin B Shrimp All seafood Sulfa (Sulfonamide Antibiotics) Other and Unknown Papqzyzs-Ryroybwyao-Re lymyxin Rash Penicillins Rash Weight: 122kg Visit Vitals BP 106/69 Pulse 72 Resp 18 Wt 122 kg (269 lb) SpO2 96% BMI 40.90 kg/m??? OB Status Postmenopausal Smoking Status Never BSA 2.42 m??? Meds: No current facility-administered medications on file prior to encounter. Current Outpatient Medications on File Prior to Encounter Medication Sig Dispense Refill albuterol 90 mcg/actuation inhaler Inhale 2 puffs in the morning, at noon, and at bedtime. amiodarone (Pacerone) 200 mg tablet Take 2 tablets (400 mg) by mouth in the morning and at bedtime for 14 days, THEN 1 tablet (200 mg) in the morning. 146 tablet 0 apixaban (Eliquis) 5 mg tablet Take 1 tablet by mouth in the morning and at bedtime. ARIPiprazole (Abilify) 5 mg tablet Take 10 mg by mouth in the morning. atorvastatin (Lipitor) 40 mg tablet Take 1 tablet by mouth at bedtime. benralizumab (Fasenra Pen) 30 mg/mL auto-injector Breo Ellipta 100-25 mcg/dose inhaler Use 1 puff in the mouth or throat 1 (one) time each day. dapagliflozin propanediol (Farxiga) 10 mg Take 1 tablet (10 mg) by mouth once daily as directed. 30 tablet 11 fluticasone propion-salmeteroL (Advair Diskus) 500-50 mcg/dose diskus inhaler Inhale 1 puff in the morning and at bedtime. furosemide (Lasix) 20 mg tablet Take 2 tablets (40 mg) by mouth in the morning. (Patient taking differently: Take 60 mg by mouth in the morning. Takes 40mg in the AM and takes 20mg in the PM) 30 tablet 11 ipratropium-albuteroL (Duo-Neb) 0.5-2.5 mg/3 mL nebulizer solution every 6 (six) hours. loratadine (Claritin) 10 mg tablet Take 1 tablet by mouth in the morning. losartan (Cozaar) 100 mg tablet Take 1 tablet by mouth in the morning. metFORMIN (Glucophage) 500 mg tablet Take 500 mg by mouth in the morning and at bedtime. metoprolol tartrate (Lopressor) 100 mg tablet Take 1 tablet (100 mg) by mouth in the morning and at bedtime. 60 tablet 11 montelukast (Singulair) 10 mg tablet Take 1 tablet by mouth in the morning. pantoprazole (ProtoNix) 40 mg EC tablet Take 1 tablet by mouth in the morning. prochlorperazine (Compazine) 10 mg tablet Take 10 mg by mouth every 6 (six) hours if needed for nausea or vomiting. sertraline (Zoloft) 50 mg tablet Take 1 tablet by mouth at bedtime. spironolactone (Aldactone) 25 mg tablet Take 1 tablet (25 mg) by mouth once daily as directed. 90 tablet 3 tiotropium (Spiriva Respimat) 1.25 mcg/actuation inhaler INHALE 2 PUFFS BY MOUTH EVERY DAY (more content not included)... Normal [facility] MAGNESIUMon 10-31-2023 Magnesium [Mass/Vol] 2.0 mg/dL Normal 1.9-2.7 [facility] Comment on above: Performed By: #### L [id number] #### [facility] ([facility]) [address] [place] [address] NURSNOTEon 10-31-2023 NURSNOTE RN educated pt and caregiver on discharge instructions. RN encouraged pt to voice any questions or concerns. Pt verbalizes no questions or concerns at this time. Pt was wheeled off unit with all belongings. Normal [facility] T4, FREEon 10-31-2023 THYROXINE (T4) FREE (NG/DL) IN SER/PLAS 0.98 ng/dL Normal 0.71-1.85 [facility] Comment on above: Performed By: #### L AB127 #### [facility] ([facility]) [address] [place] [address] TSH3 REFLEX TO FT4on 024 THYROTROPIN (MIU/L) IN SER/PLAS BY DETECTION LIMIT <= 0.05 MIU/L 6.15 mIU/L High 0.34-5.60 [facility] Comment on above: Performed By: #### L [id number] ####[facility] ([facility])[address] [place] [address] CBC AND AUTO DIFFon 10-24-19 24 ABSOLUTE BASOPHIL 0.1 X10E9/L Normal 0.0-0.2 [facility] Comment on above: Performed By: #### 3 024-7, CBCA, 52597-8, TSHR #### [facility] ([id number]) [address], [address] [place] [address] ABSOLUTE NEUTROPHIL 6.1 X10E9/L Normal 1.5-6.6 [facility] Comment on above: Performed By: #### 3 024-7, CBCA, 36569-5, TSHR #### [facility] ([id number]) [address], [address] [place] [address] Basophils/100 WBC (Bld) 0.7 % Normal [facility] Comment on above: Performed By: #### 3 024-7, CBCA, , TSHR #### [facility] ([id number]) [address], [address] [place] [address] Eosinophils (Bld) [#/Vol] 0.0 10*3/uL Normal 0.0-0.4 [facility] Comment on above: Performed By: #### 3 024-7, CBCA, , TSHR #### [facility] ([id number]) [address], [address] [place] [address] Eosinophils/100 WBC (Bld) 0.0 % Normal [facility] Comment on above: Performed By: #### 3 024-7, CBCA, , TSHR #### [facility] ([id number]) [address], [address] [place] [address] Erythrocyte distribution width (RBC) [Ratio] 15.9 % High 11.5-15.0 [facility] Comment on above: Performed By: #### 3 024-7, CBCA, , TSHR #### [facility] ([id number]) [address], [address] [place] [address] Hematocrit (Bld) [Volume fraction] 37.3 % Normal 35-47 [facility] Comment on above: Performed By: #### 3 024-7, CBCA, , TSHR #### [facility] ([id number]) [address], [address] [place] [address] Hemoglobin (Bld) [Mass/Vol] 12.1 g/dL Normal 11.7-15.5 [facility] Comment on above: Performed By: #### 3 024-7, CBCA, 09377-5, TSHR #### [facility] ([id number]) [address], [address] [place] [address] Lymphocytes (Bld) [#/Vol] 1.1 10*3/uL Normal 1.0-3.5 [facility] Comment on above: Performed By: #### 3 024-7, CBCA, , TSHR #### [facility] ([id number]) [address], [address] [place] [address] Lymphocytes/100 WBC (Bld) 13.6 % Normal [facility] Comment on above: Performed By: #### 3 024-7, CBCA, , TSHR #### [facility] ([id number]) [address], [address] [place] [address] MCH (RBC) [Entitic mass] 28.7 pg Normal 27-34 [facility] Comment on above: Performed By: #### 3 024-7, CBCA, , TSHR #### [facility] ([id number]) [address], [facility] [address] [place] [address] MCHC (RBC) [Mass/Vol] 32.5 g/dL Normal 32-36 [facility] Comment on above: Performed By: #### 3 024-7, CBCA, , TSHR #### [facility] ([id number]) [address], [address] [place] [address] MCV (RBC) [Entitic vol] 88 fL Normal 80-100 [facility] Comment on above: Performed By: #### 3 024-7, CBCA, , TSHR #### [facility] ([id number]) [address], [address] [place] [address] Monocytes (Bld) [#/Vol] 0.5 10*3/uL Normal 0-0.9 [facility] Comment on above: Performed By: #### 3 024-7, CBCA, , TSHR #### [facility] ([id number]) [address], [address] [place] [address] Monocytes/100 WBC (Bld) 7.0 % Normal [facility] Comment on above: Performed By: #### 3 024-7, CBCA, 77020-5, TSHR #### [facility] ([id number]) [address], [address] [place] [address] Neutrophils/100 WBC (Bld) 78.7 % Normal [facility] Comment on above: Performed By: #### 3 024-7, CBCA, , TSHR #### [facility] ([id number]) [address], [address] [place] [address] Platelet mean volume (Bld) [Entitic vol] 8.6 fL Normal 7-12 [facility] Comment on above: Performed By: #### 3 024-7, CBCA, , TSHR #### [facility] ([id number]) [address], [address] [place] [address] Platelets (Bld) [#/Vol] 286 10*3/uL Normal 150-450 [facility] Comment on above: Performed By: #### 3 024-7, CBCA, , TSHR #### [facility] ([id number]) [address], [address] [place] [address] RBC COUNT 4.23 X10E12/L Normal 3.80-5.20 [facility] Comment on above: Performed By: #### 3 024-7, CBCA, , TSHR #### [facility] ([id number]) [address], [address] [place] [address] WBC (Bld) [#/Vol] 7.8 10*3/uL Normal 4.0-11.0 [facility] Comment on above: Performed By: #### 3 024-7, CBCA, , TSHR #### [facility] ([id number]) [address], [address] [place] [address] FREE T4on 10-24-2023 Free T4 [Mass/Vol] 1.11 ng/dL Normal 0.61-1.60 [facility] Comment on above: Performed By: #### 3 024-7, CBCA, , TSHR #### [facility] ([id number]) [address], [address] [place] [address] MAGNESIUMon 10-24-2023 Magnesium [Mass/Vol] 2.0 mg/dL Normal 1.8-2.6 [facility] Comment on above: Performed By: #### 3 024-7, CBCA, , TSHR #### [facility] ([id number]) [address], [address] [place] [address] TSH WITH REFLEXon 10-24-2023 TSH 5.36 uIU/mL High 0.49-4.67 [facility] Comment on above: Performed By: #### 3 024-7, CBCA, , TSHR #### [facility] ([id number]) [address], [address] [place] [address] Orders Onlyon 10-23-2023 Orders Only [id number] Kaylie Salomon A 1950 F Date Provider Department Center 10/23/2023 [facility] Family History Problem Relation Age of Onset Heart failure Mother Family Status - Relation Status Age at Mother Normal [facility] Office Visiton 09-17-2023 Follow-up visit [id number] Kaylie Salomon A 1950 F Date Provider Department Center 09/17/2023 BRIAN DIXON [facility] Family History Problem Relation Age of Onset Heart failure Mother Family Status - Relation Status Age at Mother Level of Service:[address] [place] OFFICE/OUTPATIENT NEW MODERATE MDM 45 MINUTES Normal [facility] Consultation Noteon 09-13-20 Consultation Note [id number]#1.0 0TIFF Normal [facility] CBC W Auto Differential pane l (Bld)on 09-12-2023 Basophils (Bld) [#/Vol] 10*3/uL Normal <0.11 [facility] Comment on above: Order Comment: Speci men Type: BLOOD SPECIMEN Ordering Facility: [facility] Address: [address] [place] [address] Performed By: #### 5 7021-8 #### [facility] CLIA [id number] [address] [place] [address] Basophils/100 WBC (Bld) 0.2 % Normal [facility] Comment on above: Order Comment: Speci men Type: BLOOD SPECIMEN Ordering Facility: [facility] Address: [address] [place] [address] Performed By: #### 5 7021-8 #### [facility] CLIA [id number] [address] [place] [address] Differential cell count method Nom (Bld) Auto Normal [facility] Comment on above: Order Comment: Speci men Type: BLOOD SPECIMEN Ordering Facility: [facility] Address: [address] [place] [address] Performed By: #### 5 7021-8 #### [facility] CLIA [id number] [address] [place] [address] Eosinophils (Bld) [#/Vol] 10*3/uL Normal <0.46 [facility] Comment on above: Order Comment: Speci men Type: BLOOD SPECIMEN Ordering Facility: [facility] Address: [address] [place] [address] Performed By: #### 5 7021-8 #### [facility] CLIA [id number] [address] [place] [address] Eosinophils/100 WBC (Bld) 0.0 % Normal [facility] Comment on above: Order Comment: Speci men Type: BLOOD SPECIMEN Ordering Facility: [facility] Address: [address] [place] [address] Performed By: #### 5 7021-8 #### [facility] CLIA [id number] [address] [place] [address] Erythrocyte distribution width (RBC) [Ratio] 14.5 % Normal 11.5-15.0 [facility] Comment on above: Order Comment: Speci men Type: BLOOD SPECIMEN Ordering Facility: [facility] Address: [address] [place] [address] Performed By: #### 5 7021-8 #### [facility] CLIA [id number] [address] [place] [address] Hematocrit (Bld) [Volume fraction] 38.7 % Normal 36.0-46.0 [facility] Comment on above: Order Comment: Speci men Type: BLOOD SPECIMEN Ordering Facility: [facility] Address: [address] [place] [address] Performed By: #### 5 7021-8 #### [facility] CLIA [id number] [address] [place] [address] Hemoglobin (Bld) [Mass/Vol] 11.7 g/dL Normal 11.5-15.5 [facility] Comment on above: Order Comment: Speci men Type: BLOOD SPECIMEN Ordering Facility: [facility] Address: [address] [place] [address] Performed By: #### 5 7021-8 #### [facility] CLIA [id number] [address] [place] [address] Immature granulocytes (Bld) [#/Vol] 0.03 10*3/uL Normal <0.10 [facility] Comment on above: Order Comment: Speci men Type: BLOOD SPECIMEN Ordering Facility: [facility] Address: [address] [place] [address] Performed By: #### 5 7021-8 #### [facility] CLIA [id number] [address] [place] [address] Immature granulocytes/100 WBC (Bld) 0.3 % Normal [facility] Comment on above: Order Comment: Speci men Type: BLOOD SPECIMEN Ordering Facility: [facility] Address: [address] [place] [address] Performed By: #### 5 7021-8 #### [facility] CLIA [id number] [address] [place] [address] Lymphocytes (Bld) [#/Vol] 1.10 10*3/uL Normal 1.00-4.00 [facility] Comment on above: Order Comment: Speci men Type: BLOOD SPECIMEN Ordering Facility: [facility] Address: [address] [place] [address] Performed By: #### 5 7021-8 #### [facility] CLIA [id number] [address] [place] [address] Lymphocytes/100 WBC (Bld) 11.2 % Normal [facility] Comment on above: Order Comment: Speci men Type: BLOOD SPECIMEN Ordering Facility: [facility] Address: [address] [place] [address] Performed By: #### 5 7021-8 #### [facility] CLIA [id number] [address] [place] [address] MCH (RBC) [Entitic mass] 27.5 pg Normal 26.0-34.0 [facility] Comment on above: Order Comment: Speci men Type: BLOOD SPECIMEN Ordering Facility: [facility] Address: [address] [place] [address] Performed By: #### 5 7021-8 #### [facility] CLIA [id number] [address] [place] [address] MCHC (RBC) [Mass/Vol] 30.2 g/dL Low 30.5-36.0 [facility] Comment on above: Order Comment: Speci men Type: BLOOD SPECIMEN Ordering Facility: [facility] Address: [address] [place] [address] Performed By: #### 5 7021-8 #### [facility] CLIA [id number] [address] [place] [address] MCV (RBC) [Entitic vol] 91.1 fL Normal 80.0-100.0 [facility] Comment on above: Order Comment: Speci men Type: BLOOD SPECIMEN Ordering Facility: [facility] Address: [address] [place] [address] Performed By: #### 5 7021-8 #### [facility] CLIA [id number] [address] [place] [address] Monocytes (Bld) [#/Vol] 0.92 10*3/uL High <0.87 [facility] Comment on above: Order Comment: Speci men Type: BLOOD SPECIMEN Ordering Facility: [facility] Address: [address] [place] [address] Performed By: #### 5 7021-8 #### [facility] CLIA [id number] [address] [place] [address] Monocytes/100 WBC (Bld) 9.4 % Normal [facility] Comment on above: Order Comment: Speci men Type: BLOOD SPECIMEN Ordering Facility: [facility] Address: [address] [place] [address] Performed By: #### 5 7021-8 #### [facility] CLIA [id number] [address] [place] [address] Neutrophils (Bld) [#/Vol] 7.74 10*3/uL High 1.45-7.50 [facility] Comment on above: Order Comment: Speci men Type: BLOOD SPECIMEN Ordering Facility: [facility] Address: [address] [place] [address] Performed By: #### 5 7021-8 #### [facility] CLIA [id number] [address] [place] [address]125 Neutrophils/100 WBC (Bld) 78.9 % Normal [facility] Comment on above: Order Comment: Speci men Type: BLOOD SPECIMEN Ordering Facility: [facility] Address: [address] [place] [address] Performed By: #### 5 7021-8 #### [facility] CLIA [id number] [address] [place] [address] Nucleated RBC (Bld) [#/Vol] 10*3/uL Normal <0.01 [facility] Comment on above: Order Comment: Speci men Type: BLOOD SPECIMEN Ordering Facility: [facility] Address: [address] [place] [address] Performed By: #### 5 7021-8 #### [facility] CLIA [id number] [address] [place] [address]804 Nucleated RBC/100 WBC (Bld) [Ratio] 0.0 /100 WBC Normal [facility] Comment on above: Order Comment: Speci men Type: BLOOD SPECIMEN Ordering Facility: [facility] Address: [address] [place] [address] Performed By: #### 5 7021-8 #### [facility] CLIA [id number] [address] [place] [address]85 Platelet mean volume (Bld) [Entitic vol] 9.4 fL Normal 9.0-12.7 [facility] Comment on above: Order Comment: Speci men Type: BLOOD SPECIMEN Ordering Facility: [facility] Address: [address] [place] [address] Performed By: #### 5 7021-8 #### [facility] CLIA [id number] [address] [place] [address] Platelets (Bld) [#/Vol] 279 10*3/uL Normal 150-400 [facility] Comment on above: Order Comment: Speci men Type: BLOOD SPECIMEN Ordering Facility: [facility] Address: [address] [place] [address] Performed By: #### 5 7021-8 #### [facility] CLIA [id number] [address] [place] [address]37 RBC (Bld) [#/Vol] 4.25 10*6/uL Normal 3.90-5.20 [facility] Comment on above: Order Comment: Speci men Type: BLOOD SPECIMEN Ordering Facility: [facility] Address: [place] [id number] Performed By: #### 5 7021-8 #### [facility] CLIA [id number] [address] [place] [address] WBC (Bld) [#/Vol] 9.81 10*3/uL Normal 3.70-11.00 [facility] Comment on above: Order Comment: Speci men Type: BLOOD SPECIMEN Ordering Facility: [facility] Address: [address] [id number] Performed By: #### 5 7021-8 #### [facility] CLIA [id number] [address] [place] [address] CNOVSPon 09-12-2023 CNOVSP Visit (SP) Office ([place]) KAYLIE SALOMON ([id number]) 1950 F Date Time Provider Department 09/12/23 1:15 PM REGINALD ARAGON During your visit today, we recorded the following information about you: Temperature Pulse Respiration Blood pressure 97.7 degrees 88/minute 16/minute 108/67 Weight Height 121.6 kg 1.677 m Reginald Aragon MD 09/12/2023 7:56 PM Signed PATIENT NAME: Kaylie Salomon DATE: 09/12/2023 PRIMARY CARE PHYSICIAN: Dr. Landeros OTHER PHYSICIANS: Dr. Ramon Smith, [place] [facility] Portions of this encounter note have been copied from the note from 03/14/2023 and has been updated where appropriate, and reflect my current medical decision making from today. CC: This is a 73 year old female with a history of breast cancer, seen for scheduled follow-up. INTERIM HISTORY: Since the patient's last visit here she apparently was diagnosed with atrial fibrillation, and is on new medications per cardiology. She also has had new psychiatric issues (psychosis) and is on new medications per psychiatry. She appears to be tolerating them well. Otherwise she has had no significant medical changes. Overall she feels fairly well today with no particular complaints. No unusual pain. No changes in her breasts. MEDICATIONS: potassium chloride 20 mEq TbER TAKE 2 TABLETS BY MOUTH EVERY DAY ADULTS 50 PLUS 0.4-300-250 mg-mcg-mcg tab Take 1 tablet by mouth once daily. (Patient not taking: Reported on 03/14/2023) FASENRA PEN 30 mg/mL potassium chloride ER (K-DUR, KLOR-CON) 20 mEq tablet Take 2 tablets by mouth once daily. (Patient not taking: Reported on 03/14/2023) FARXIGA 5 mg tablet metFORMIN (GLUCOPHAGE) 500 mg tablet TK 1 T PO BID predniSONE (DELTASONE) 10 mg tablet TK 3 TS PO QAM FOR 3 DAYS FOR ASTHMA FLARE montelukast (SINGULAIR) 10 mg tablet TK 1 T PO QD ipratropium-albuterol (DUONEB) 0.5 mg-3 mg(2.5 mg base)/3 mL nebu INHALE THE CONTENTS OF 1 VIAL THROUGH NEBULIZER QID NYSTOP powder Apply to affected area twice daily as needed. APPLY TO AFFECTED AREA (Patient not taking: Reported on 03/14/2023) silver sulfADIAZINE (SILVADENE,THERMAZENE) 1 % cream Apply to affected area twice daily (Patient not taking: Reported on 03/14/2023) albuterol HFA (PROVENTIL HFA, VENTOLIN HFA) 90 mcg/actuation inhaler Inhale 2 Puffs as instructed every 6 hours as needed. pantoprazole DR (PROTONIX) 40 mg tablet Take 40 mg by mouth once daily. loratadine (CLARITIN) 10 mg tablet Take 10 mg by mouth once daily. acetaminophen (TYLENOL) 500 mg tablet Take 1,000 mg by mouth every 6 hours as needed. prochlorperazine (COMPAZINE) 10 mg tablet Take 1 tablet by mouth every 6 hours as needed. ondansetron (ZOFRAN) 8 mg tablet Take 1 tablet by mouth every 8 hours as needed for Nausea/Vomiting. ELIQUIS 5 mg tab(s) Take 5 mg by mouth twice daily. atorvastatin (LIPITOR) 40 mg tablet Take 40 mg by mouth once daily. VITAMIN D-3 2,000 unit cap 2,000 Units once daily. (Patient not taking: Reported on 03/14/2023) ADVAIR DISKUS 500-50 mcg/dose dsdv 1 Puff twice daily. (Patient not taking: Reported on 03/14/2023) fluticasone (FLONASE) 50 mcg/actuation nasal spray 2 Sprays once daily. furosemide (LASIX) 20 mg tablet Take 40 mg by mouth once daily. losartan (COZAAR) 100 mg tablet Take 100 mg by mouth once daily. metoprolol tartrate, short acting, (LOPRESSOR) 50 mg tablet Take 50 mg by mouth twice daily. WOMEN'S MULTIVITAMIN 18 mg-400 mcg- 500 mg-50 mcg tab TK 1 T PO D sertraline (ZOLOFT) 50 mg tablet Take 50 mg by mouth once daily. SPIRIVA RESPIMAT 1.25 mcg/actuation mist Inhale 2 Puffs as instructed once daily. (Patient not taking: Reported on 03/14/2023) ALLERGIES: Clarithromycin, Conjugated Estrogens, Neosporin [Bsdoubdb-Alczzmmsya-X olymyxin], Paclitaxel, Peanut, Penicillins, and Sulfa (Sulfonamide Antibiotics) PAST MEDICAL HISTORY: PAST MEDICAL HISTORY Diagnosis Date AF (atrial fibrillation) ([facility]) Asthma Breast cancer ([facility]) 02/[address] Landeros COPD (chronic obstructive pulmonary disease) ([facility]) Edema Hyperlipidemia Hypertension OA (osteoarthritis of spine) Port-A-Cath in place PAST SURGICAL HISTORY: PAST SURGICAL HISTORY Procedure Laterality Date CARDIAC CATH 12/2018 PORTOCATH PLACEMENT REVIEW OF SYSTEMS: General: No weight loss, malaise or fevers. HEENT: Negative for frequent or significant headaches, No changes in hearing or vision, no nose bleeds or other nasal problems Respiratory: Negative for cough, wheezing or shortness of breath. Cardiovascular: Negative for chest pain, leg swelling or palpitations. GI: Negative for abdominal discomfort, blood in stools or black stools or change in bowel habits. : No history of dysuria, frequency or incontinence. Musculoskeletal: Negative for: joint pain or swelling, back pain and muscle pain. Skin: Ne (more content not included)... Normal [facility] David 09-12-2023 CNPN Telephone ([place]) KAYLIE SALOMON ([id number]) 1950 F Date Time Provider Department 09/12/23 CARIN RAMOS During your visit today, we recorded the following information about you: Carin Ramos RN 09/12/2023 1:42 PM Signed BRM/HM: Please sign pended order Orders sent to [facility] PH: [phone] Will notifagustin Monsalve, vehicle care specialist, once signed DILCIA Velasco Natalie, RN 09/12/2023 2:59 PM Signed Ordered faxed to Umm Ramos RN Allergies As of Date: 09/12/2023 Noted Allergy Reaction CLARITHROMYCIN 01/27/2010 16 - Unknown CONJUGATED ESTROGENS 01/27/2010 16 - Unknown NEOSPORIN ([id number] O*05/06/2019 2 - Rash PACLITAXEL 08/24/2019 14 - Other: See Comments Comments: Numbness,tingling and elevated blood pressure PEANUT 05/06/2019 10 - Anaphylaxis PENICILLINS 05/06/2019 2 - Rash SULFA (SULFONAMIDE ANTIBIOTICS) 01/27/2010 16 - Unknown Date Reviewed: 09/12/2023 Reviewed by: Cata Beard MA - Fully Assessed Reason for Visit: Orders [681] Primary Visit Diagnosis: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 - spironolactone (ALDACTONE) 25 mg tablet Take 25 mg by mouth once daily. - potassium chloride 20 mEq TbER TAKE 2 TABLETS BY MOUTH EVERY DAY - ADULTS 50 PLUS 0.4-300-250 mg-mcg-mcg tab Take 1 tablet by mouth once daily. - FASENRA PEN 30 mg/mL - potassium chloride ER (K-DUR, KLOR-CON) 20 mEq tablet Take 2 tablets by mouth once daily. - FARXIGA 5 mg tablet Take 10 mg by mouth once daily. - metFORMIN (GLUCOPHAGE) 500 mg tablet TK 1 T PO BID - predniSONE (DELTASONE) 10 mg tablet TK 3 TS PO QAM FOR 3 DAYS FOR ASTHMA FLARE - montelukast (SINGULAIR) 10 mg tablet TK 1 T PO QD - ipratropium-albuterol (DUONEB) 0.5 mg-3 mg(2.5 mg base)/3 mL nebu INHALE THE CONTENTS OF 1 VIAL THROUGH NEBULIZER QID - NYSTOP powder Apply to affected area two times a day as needed. APPLY TO AFFECTED AREA - silver sulfADIAZINE (SILVADENE,THERMAZENE) 1 % cream Apply to affected area twice daily - albuterol HFA (PROVENTIL HFA, VENTOLIN HFA) 90 mcg/actuation inhaler Inhale 2 Puffs as instructed every 6 hours as needed. - pantoprazole DR (PROTONIX) 40 mg tablet Take 40 mg by mouth once daily. - loratadine (CLARITIN) 10 mg tablet Take 10 mg by mouth once daily. - acetaminophen (TYLENOL) 500 mg tablet Take 1,000 mg by mouth every 6 hours as needed. - prochlorperazine (COMPAZINE) 10 mg tablet Take 1 tablet by mouth every 6 hours as needed. - ondansetron (ZOFRAN) 8 mg tablet Take 1 tablet by mouth every 8 hours as needed for Nausea/Vomiting. - ELIQUIS 5 mg tab(s) Take 5 mg by mouth twice daily. - atorvastatin (LIPITOR) 40 mg tablet Take 40 mg by mouth once daily. - VITAMIN D-3 2,000 unit cap 2,000 Units once daily. - ADVAIR DISKUS 500-50 mcg/dose dsdv 1 Puff twice daily. - fluticasone (FLONASE) 50 mcg/actuation nasal spray 2 Sprays once daily. - furosemide (LASIX) 20 mg tablet Take 60 mg by mouth once daily. - losartan (COZAAR) 100 mg tablet Take 100 mg by mouth once daily. - metoprolol tartrate, short acting, (LOPRESSOR) 50 mg tablet Take 100 mg by mouth two times a day. - WOMEN'S MULTIVITAMIN 18 mg-400 mcg- 500 mg-50 mcg tab TK 1 T PO D - sertraline (ZOLOFT) 50 mg tablet Take 50 mg by mouth once daily. - SPIRIVA RESPIMAT 1.25 mcg/actuation mist Inhale 2 Puffs as instructed once daily. Problem List As Of Date 09/12/2023 Noted Resolved Malignant neoplasm of overlapping sites of [place]*04/20/2019 Iron deficiency anemia secondary to inadequate *06/17/2019 Encounter Status:Closed by CARIN RAMOS on 09/12/23 Normal [facility] Cancer Ag27-29 SerPl-aCncon 09-12-2023 Cancer Ag 27-29 Qn 31.6 [arb'U]/mL Normal <38.6 C [facility] Comment on above: Order Comment: Speci men Type: BLOOD SPECIMEN Ordering Facility: [facility] Address: [address] [place] [address] Result Comment: The CA27.29 test was performed using the [employer] XP chemiluminometric immunoassay method. Results obtained with different assay methods or kits cannot be used interchangeably. Performed By: #### 5 7021-8 #### [facility] CLIA [id number] [address] [place] [address] 14012 Comprehensive metabolic 2000 panelon 09-12-2023 Albumin [Mass/Vol] 4.4 g/dL Normal 3.9-4.9 [facility] Comment on above: Order Comment: Speci men Type: BLOOD SPECIMEN Ordering Facility: [facility] Address: [address] [place], [place] [id number] Performed By: #### 5 7021-8 #### [facility] CLIA [id number] [address] [place] [address]25 ALP [Catalytic activity/Vol] 87 U/L Normal 34-123 [facility] Comment on above: Order Comment: Speci men Type: BLOOD SPECIMEN Ordering Facility: [facility] Address: [address] [address] Performed By: #### 5 7021-8 #### [facility] CLIA [id number] [address] [place] [address] 34113 ALT [Catalytic activity/Vol] 11 U/L Normal 7-38 [facility] Comment on above: Order Comment: Speci men Type: BLOOD SPECIMEN Ordering Facility: [facility] Address: [address] [address] Performed By: #### 5 7021-8 #### [facility] CLIA [id number] [address] [place] [address]45 Anion gap [Moles/Vol] 10 mmol/L Normal 9-18 [facility] Comment on above: Order Comment: Speci men Type: BLOOD SPECIMEN Ordering Facility: [facility] Address: [address] [address] Performed By: #### 5 7021-8 #### [facility] CLIA [id number] [address] [place] [address] 66356 AST [Catalytic activity/Vol] 14 U/L Normal 13-35 [facility] Comment on above: Order Comment: Speci men Type: BLOOD SPECIMEN Ordering Facility: [facility] Address: [address] [address] Performed By: #### 5 7021-8 #### [facility] CLIA [id number] [address] [place] [address]26 Bilirubin [Mass/Vol] 0.6 mg/dL Normal 0.2-1.3 [facility] Comment on above: Order Comment: Speci men Type: BLOOD SPECIMEN Ordering Facility: [facility] Address: [address] [address] Performed By: #### 5 7021-8 #### [facility] CLIA [id number] [address] [place] [address] Calcium [Mass/Vol] 9.7 mg/dL Normal 8.5-10.2 [facility] Comment on above: Order Comment: Speci men Type: BLOOD SPECIMEN Ordering Facility: [facility] Address: [address] [place] [address] Performed By: #### 5 7021-8 #### [facility] CLIA [id number] [address] [place] [address]1700 Chloride [Moles/Vol] 96 mmol/L Low 97-105 [facility] Comment on above: Order Comment: Speci men Type: BLOOD SPECIMEN Ordering Facility: [facility] Address: [address] [place] [address] Performed By: #### 5 7021-8 #### [facility] CLIA [id number] [address] [place] [address] 93674 CO2 [Moles/Vol] 31 mmol/L High 22-30 [facility] Comment on above: Order Comment: Speci men Type: BLOOD SPECIMEN Ordering Facility: [facility] Address: [address] [place] [address] Performed By: #### 5 7021-8 #### [facility] CLIA [id number] [address] [place] [address]31 Creatinine [Mass/Vol] 1.10 mg/dL High 0.58-0.96 [facility] Comment on above: Order Comment: Speci men Type: BLOOD SPECIMEN Ordering Facility: [facility] Address: [address] [place] [address] Performed By: #### 5 7021-8 #### [facility] CLIA [id number] [address] [place] [address] 83875 Creatinine and Glomerular filtration rate.predicted panel (S/P/Bld) 53 mL/min/1.73m??? Low >=60 [facility] Comment on above: Order Comment: Speci men Type: BLOOD SPECIMEN Ordering Facility: [facility] Address: [address] [phone] Result Comment: Violette mated Glomerular Filtration Rate (eGFR) is calculated using the 2020 CKD-EPI creatinine equation. This equation utilizes serum creatinine, sex, and age as parameters. The creatinine assay has traceable calibration to isotope dilution-mass spectrometry. Refer to KDIGO guidelines for clinical interpretation. In patients with unstable renal function, e.g. those with acute kidney injury, the eGFR may not accurately reflect actual GFR. Performed By: #### 5 7021-8 #### [facility] CLIA [id number] [address] [place] [address] 90377 Glucose [Mass/Vol] 115 mg/dL High 74-99 [facility] Comment on above: Order Comment: Jennifer stahl Type: BLOOD SPECIMEN Ordering Facility: [facility] Address: [address] [place], [place] [id number] Result Comment: The [place] Diabetes Association (ADA) provides guidance for cutoff values for fasting glucose and random glucose. The ADA defines fasting as no caloric intake for at least 8 hours. Fasting plasma glucose results between 100 to 125 mg/dL indicate increased risk for diabetes (prediabetes). Fasting plasma glucose results greater than or equal to 126 mg/dL meet the criteria for diagnosis of diabetes. In the absence of unequivocal hyperglycemia, results should be confirmed by repeat testing. In a patient with classic symptoms of hyperglycemia or hyperglycemic crisis, random plasma glucose results greater than or equal to 200 mg/dL meet the criteria for diagnosis of diabetes. Reference: Standards of Medical Care in Diabetes 2016, [place] Diabetes Association. Diabetes Care. 2016.39(Suppl 1). Performed By: #### 5 7021-8 #### [facility] CLIA [id number] [address] [place] [address]484 Potassium [Moles/Vol] 4.4 mmol/L Normal 3.7-5.1 [facility] Comment on above: Order Comment: Jennifer stahl Type: BLOOD SPECIMEN Ordering Facility: [facility] Address: [address] [place], [place] [phone] Performed By: #### 5 7021-8 #### [facility] CLIA [id number] [address] [place] [address] Protein [Mass/Vol] 7.4 g/dL Normal 6.3-8.0 [facility] Comment on above: Order Comment: Speci men Type: BLOOD SPECIMEN Ordering Facility: [facility] Address: [address] [address] Performed By: #### 5 7021-8 #### [facility] CLIA [id number] [address] [place] [address] Sodium [Moles/Vol] 137 mmol/L Normal 136-144 [facility] Comment on above: Order Comment: Speci men Type: BLOOD SPECIMEN Ordering Facility: [facility] Address: [address] [place] [address] Performed By: #### 5 7021-8 #### [facility] CLIA [id number] [address] [place] [address] 30258 Urea nitrogen [Mass/Vol] 36 mg/dL High 7-21 [facility] Comment on above: Order Comment: Speci men Type: BLOOD SPECIMEN Ordering Facility: [facility] Address: [address] [place] [address] Performed By: #### 5 7021-8 #### [facility] CLIA [id number] [address] [place] [address] [facility] 2022 Home Health Records [id number]#1.0 0TIFF [facility] Home Health Record[facility] 2022 Home Health Records [id number]#1.0 0TIFF [facility] Office Visiton 08-29-2023 Follow-up visit [id number] Kaylie Salomon 1950 F Date Provider Department Center 08/29/2023 MELISSA CARO [facility] Family History Problem Relation Age of Onset Heart failure Mother Family Status - Relation Status Age at Mother Level of Service:71225 [place] OFFICE/OUTPATIENT ESTABLISHED MOD MDM 30-39 MIN [facility] Office Visiton 08-19-2023 Follow-up visit [id number] Kaylie Salomon 1950 Date Provider Department Center 08/19/2023 PIETRO CAMARILLO Family History Problem Relation Age of Onset Heart failure Mother Family Status - Relation Status Age at Mother Level of Service:88485 [place] OFFICE/OUTPATIENT ESTABLISHED MOD MDM 30-39 MIN [facility] RAD - CT Reporton 08-14-2023 RAD - CT Report [id number]#1.0 0TIFF [facility] Home Health Record[facility] 2022 Home Health Records [id number]#1.0 0TIFF [facility] Outside Mammographyon 2022 Outside Mammography [id number]#1.0 0CD:127 [facility] Health [facility] 2022 Home Health Records [id number]#1.00 CD:127 [facility] Office Visiton 06-18-2023 Follow-up visit [id number] Kaylie Salomon 1950 [facility] Provider Department [place] 06/18/2023 PIETRO CAMARILLO Family History Problem Relation Age of Onset Heart failure Mother Family Status - Relation Status Age at Mother Level of Service:88357 [place] OFFICE/OUTPATIENT ESTABLISHED MOD [facility] 30-39 MIN [facility] Home Health Record[facility] 2022 Home Health Records [id number] 90 [id number]#1.0 0CD:127 [facility] CNPNon 06-07-2023 CNPN Telephone (CACHORRO) KAYLIE SALOMON ([id number]) 1950 F Date Time Provider Department 06/07/23 NGA ZHAO During your visit today, we recorded the following information about you: Nga Zhao, DILCIA 06/07/2023 10:17 AM Addendum Shelli called stating Kaylie needs scheduled for her Mammogram as she is due this month per office note. Pt does not have current order. Order pended Shayy: Please review and sign pending order. PSS: Pt needs scheduled at [facility]. Thanks! DILCIA Carroll Natalie, RN 06/10/2023 1:00 PM Signed Spoke to healthcare recruiter. She has not heard from anyone regarding scheduling of Mammogram at [place]. Order faxed to [facility] scheduling. She is aware to call if she has not heard from them in the next week. She denies further needs at this time Carin Ramos RN Allergies As of Date: 06/07/2023 Noted Allergy Reaction CLARITHROMYCIN 01/27/2010 16 - Unknown CONJUGATED ESTROGENS 01/27/2010 16 - Unknown NEOSPORIN ([id number] O*05/06/2019 2 - Rash PACLITAXEL 08/24/2019 14 - Other: See Comments Comments: Numbness,tingling and elevated blood pressure PEANUT 05/06/2019 10 - Anaphylaxis PENICILLINS 05/06/2019 2 - Rash SULFA (SULFONAMIDE ANTIBIOTICS) 01/27/2010 16 - Unknown Date Reviewed: 06/07/2023 Reviewed by: Shayy Bernabe PAPeri - Fully Assessed Reason for Visit: Orders [681] Primary Visit Diagnosis:Malignant neoplasm of overlapping sites of right breast in female, estrogen receptor negative (HCC) [C50.811, Z17.1] Order(s):[facility] LEFT [[id number]] Order #: [id number] FUTURE Prescriptions as of 06/10/2023 - potassium chloride 20 mEq TbER TAKE 2 TABLETS BY MOUTH EVERY DAY - ADULTS 50 PLUS 0.4-300-250 mg-mcg-mcg tab Take 1 tablet by mouth once daily. - FASENRA PEN 30 mg/mL - potassium chloride ER (K-DUR, KLOR-CON) 20 mEq tablet Take 2 tablets by mouth once daily. - FARXIGA 5 mg tablet - metFORMIN (GLUCOPHAGE) 500 mg tablet TK 1 T PO BID - predniSONE (DELTASONE) 10 mg tablet TK 3 TS PO QAM FOR 3 DAYS FOR ASTHMA FLARE - montelukast (SINGULAIR) 10 mg tablet TK 1 T PO QD - ipratropium-albuterol (DUONEB) 0.5 mg-3 mg(2.5 mg base)/3 mL nebu INHALE THE CONTENTS OF 1 VIAL THROUGH NEBULIZER QID - NYSTOP powder Apply to affected area twice daily as needed. APPLY TO AFFECTED AREA - silver sulfADIAZINE (SILVADENE,THERMAZENE) 1 % cream Apply to affected area twice daily - albuterol HFA (PROVENTIL HFA, VENTOLIN HFA) 90 mcg/actuation inhaler Inhale 2 Puffs as instructed every 6 hours as needed. - pantoprazole DR (PROTONIX) 40 mg tablet Take 40 mg by mouth once daily. - loratadine (CLARITIN) 10 mg tablet Take 10 mg by mouth once daily. - acetaminophen (TYLENOL) 500 mg tablet Take 1,000 mg by mouth every 6 hours as needed. - prochlorperazine (COMPAZINE) 10 mg tablet Take 1 tablet by mouth every 6 hours as needed. - ondansetron (ZOFRAN) 8 mg tablet Take 1 tablet by mouth every 8 hours as needed for Nausea/Vomiting. - ELIQUIS 5 mg tab(s) Take 5 mg by mouth twice daily. - atorvastatin (LIPITOR) 40 mg tablet Take 40 mg by mouth once daily. - VITAMIN D-3 2,000 unit cap 2,000 Units once daily. - ADVAIR DISKUS 500-50 mcg/dose dsdv 1 Puff twice daily. - fluticasone (FLONASE) 50 mcg/actuation nasal spray 2 Sprays once daily. - furosemide (LASIX) 20 mg tablet Take 40 mg by mouth once daily. - losartan (COZAAR) 100 mg tablet Take 100 mg by mouth once daily. - metoprolol tartrate, short acting, (LOPRESSOR) 50 mg tablet Take 50 mg by mouth twice daily. - WOMEN'S MULTIVITAMIN 18 mg-400 mcg- 500 mg-50 mcg tab TK 1 T PO D - sertraline (ZOLOFT) 50 mg tablet Take 50 mg by mouth once daily. - SPIRIVA RESPIMAT 1.25 mcg/actuation mist Inhale 2 Puffs as instructed once daily. Problem List As Of Date 06/07/2023 Noted Resolved Malignant neoplasm of overlapping sites of [place]*04/20/2019 Iron deficiency anemia secondary to inadequate *06/17/2019 Encounter Status:Closed by CARIN RAMOS on 06/10/23 Normal [facility] Office Visiton 05-21-2023 Follow-up visit [id number] Kaylie Salomon 1950 F Date Provider Department Center 05/21/2023 Alessandro-ELIF ESPINOZA Family History Problem Relation Age of Onset Heart failure Mother Family Status - Relation Status Age at Mother Level of Service:45030 [place] OFFICE/OUTPATIENT ESTABLISHED MOD MDM 30-39 MIN Reason for Visit and Comments: Follow-up [728335] - 1.5 year follow up Normal [facility] 2022 Home Health Records [id number]#1.0 0CD:127 Normal [facility] David 04-10-2023 [place] Telephone (HEMTSA) KAYLIE SALMOON ([id number]) 1950 F Date Time Provider Department 04/10/23 CARIN RAMOS During your visit today, we recorded the following information about you: Carin Ramos RN 04/10/2023 10:45 AM Signed Requested labs to PCP for appt. Faxed to [phone] Carin Ramos RN Allergies As of Date: 04/10/2023 Noted Allergy Reaction CLARITHROMYCIN 01/27/2010 16 - Unknown CONJUGATED ESTROGENS 01/27/2010 16 - Unknown NEOSPORIN ([id number] O*05/06/2019 2 - Rash PACLITAXEL 08/24/2019 14 - Other: See Comments Comments: Numbness,tingling and elevated blood pressure PEANUT 05/06/2019 10 - Anaphylaxis PENICILLINS 05/06/2019 2 - Rash SULFA (SULFONAMIDE ANTIBIOTICS) 01/27/2010 16 - Unknown Date Reviewed: 03/14/2023 Reviewed by: Cata Beard MA - Fully Assessed Reason for Visit: Results [95] Prescriptions as of 04/10/2023 - potassium chloride 20 mEq TbER TAKE 2 TABLETS BY MOUTH EVERY DAY - ADULTS 50 PLUS 0.4-300-250 mg-mcg-mcg tab Take 1 tablet by mouth once daily. - FASENRA PEN 30 mg/mL - potassium chloride ER (K-DUR, KLOR-CON) 20 mEq tablet Take 2 tablets by mouth once daily. - FARXIGA 5 mg tablet - metFORMIN (GLUCOPHAGE) 500 mg tablet TK 1 T PO BID - predniSONE (DELTASONE) 10 mg tablet TK 3 TS PO QAM FOR 3 DAYS FOR ASTHMA FLARE - montelukast (SINGULAIR) 10 mg tablet TK 1 T PO QD - ipratropium-albuterol (DUONEB) 0.5 mg-3 mg(2.5 mg base)/3 mL nebu INHALE THE CONTENTS OF 1 VIAL THROUGH NEBULIZER QID - NYSTOP powder Apply to affected area twice daily as needed. APPLY TO AFFECTED AREA - silver sulfADIAZINE (SILVADENE,THERMAZENE) 1 % cream Apply to affected area twice daily - albuterol HFA (PROVENTIL HFA, VENTOLIN HFA) 90 mcg/actuation inhaler Inhale 2 Puffs as instructed every 6 hours as needed. - pantoprazole DR (PROTONIX) 40 mg tablet Take 40 mg by mouth once daily. - loratadine (CLARITIN) 10 mg tablet Take 10 mg by mouth once daily. - acetaminophen (TYLENOL) 500 mg tablet Take 1,000 mg by mouth every 6 hours as needed. - prochlorperazine (COMPAZINE) 10 mg tablet Take 1 tablet by mouth every 6 hours as needed. - ondansetron (ZOFRAN) 8 mg tablet Take 1 tablet by mouth every 8 hours as needed for Nausea/Vomiting. - ELIQUIS 5 mg tab(s) Take 5 mg by mouth twice daily. - atorvastatin (LIPITOR) 40 mg tablet Take 40 mg by mouth once daily. - VITAMIN D-3 2,000 unit cap 2,000 Units once daily. - ADVAIR DISKUS 500-50 mcg/dose dsdv 1 Puff twice daily. - fluticasone (FLONASE) 50 mcg/actuation nasal spray 2 Sprays once daily. - furosemide (LASIX) 20 mg tablet Take 40 mg by mouth once daily. - losartan (COZAAR) 100 mg tablet Take 100 mg by mouth once daily. - metoprolol tartrate, short acting, (LOPRESSOR) 50 mg tablet Take 50 mg by mouth twice daily. - WOMEN'S MULTIVITAMIN 18 mg-400 mcg- 500 mg-50 mcg tab TK 1 T PO D - sertraline (ZOLOFT) 50 mg tablet Take 50 mg by mouth once daily. - SPIRIVA RESPIMAT 1.25 mcg/actuation mist Inhale 2 Puffs as instructed once daily. Problem List As Of Date 04/10/2023 Noted Resolved Malignant neoplasm of overlapping sites of [place]*04/20/2019 Iron deficiency anemia secondary to inadequate *06/17/2019 Encounter Status:Closed by CARNI RAMOS on 04/10/23 [facility] 04-04-2023 [facility] Telephone (HEMGEOFF) KAYLIE SALOMON ([id number]) 1950 F Date Time Provider Department 04/04/23 ANGELINA BOO During your visit today, we recorded the following information about you: Angelina Boo RN 04/04/2023 10:21 AM Signed Voicemail message received from pt's sister, Penelope, regarding lab results. Call placed to sister. No answer. Message left requesting call back. DILCIA Britoler, RN 04/04/2023 11:41 AM Signed Spoke coby/ Penelope. Requests that we send pt's most recent lab results to Dr Landeros's office. Results from 03/[address] Landeros's office as requested. Angelina Boo RN Allergies As of Date: 04/04/2023 Noted Allergy Reaction CLARITHROMYCIN 01/27/2010 16 - Unknown CONJUGATED ESTROGENS 01/27/2010 16 - Unknown NEOSPORIN ([id number] O*05/06/2019 2 - Rash PACLITAXEL 08/24/2019 14 - Other: See Comments Comments: Numbness,tingling and elevated blood pressure PEANUT 05/06/2019 10 - Anaphylaxis PENICILLINS 05/06/2019 2 - Rash SULFA (SULFONAMIDE ANTIBIOTICS) 01/27/2010 16 - Unknown Date Reviewed: 03/14/2023 Reviewed by: Cata Beard MA - Fully Assessed Reason for Visit: Results [95] Prescriptions as of 04/04/2023 - potassium chloride 20 mEq TbER TAKE 2 TABLETS BY MOUTH EVERY DAY - ADULTS 50 PLUS 0.4-300-250 mg-mcg-mcg tab Take 1 tablet by mouth once daily. - FASENRA PEN 30 mg/mL - potassium chloride ER (K-DUR, KLOR-CON) 20 mEq tablet Take 2 tablets by mouth once daily. - FARXIGA 5 mg tablet - metFORMIN (GLUCOPHAGE) 500 mg tablet TK 1 T PO BID - predniSONE (DELTASONE) 10 mg tablet TK 3 TS PO QAM FOR 3 DAYS FOR ASTHMA FLARE - montelukast (SINGULAIR) 10 mg tablet TK 1 T PO QD - ipratropium-albuterol (DUONEB) 0.5 mg-3 mg(2.5 mg base)/3 mL nebu INHALE THE CONTENTS OF 1 VIAL THROUGH NEBULIZER QID - NYSTOP powder Apply to affected area twice daily as needed. APPLY TO AFFECTED AREA - silver sulfADIAZINE (SILVADENE,THERMAZENE) 1 % cream Apply to affected area twice daily - albuterol HFA (PROVENTIL HFA, VENTOLIN HFA) 90 mcg/actuation inhaler Inhale 2 Puffs as instructed every 6 hours as needed. - pantoprazole DR (PROTONIX) 40 mg tablet Take 40 mg by mouth once daily. - loratadine (CLARITIN) 10 mg tablet Take 10 mg by mouth once daily. - acetaminophen (TYLENOL) 500 mg tablet Take 1,000 mg by mouth every 6 hours as needed. - prochlorperazine (COMPAZINE) 10 mg tablet Take 1 tablet by mouth every 6 hours as needed. - ondansetron (ZOFRAN) 8 mg tablet Take 1 tablet by mouth every 8 hours as needed for Nausea/Vomiting. - ELIQUIS 5 mg tab(s) Take 5 mg by mouth twice daily. - atorvastatin (LIPITOR) 40 mg tablet Take 40 mg by mouth once daily. - VITAMIN D-3 2,000 unit cap 2,000 Units once daily. - ADVAIR DISKUS 500-50 mcg/dose dsdv 1 Puff twice daily. - fluticasone (FLONASE) 50 mcg/actuation nasal spray 2 Sprays once daily. - furosemide (LASIX) 20 mg tablet Take 40 mg by mouth once daily. - losartan (COZAAR) 100 mg tablet Take 100 mg by mouth once daily. - metoprolol tartrate, short acting, (LOPRESSOR) 50 mg tablet Take 50 mg by mouth twice daily. - WOMEN'S MULTIVITAMIN 18 mg-400 mcg- 500 mg-50 mcg tab TK 1 T PO D - sertraline (ZOLOFT) 50 mg tablet Take 50 mg by mouth once daily. - SPIRIVA RESPIMAT 1.25 mcg/actuation mist Inhale 2 Puffs as instructed once daily. Problem List As Of Date 04/04/2023 Noted Resolved Malignant neoplasm of overlapping sites of [place]*04/20/2019 Iron deficiency anemia secondary to inadequate *06/17/2019 Encounter Status:Closed by ANGELINA BOO on 04/04/23 Normal [facility] CBC W Auto Differential pane l (Bld)on 03-14-2023 Basophils (Bld) [#/Vol] 10*3/uL Normal <0.11 [facility] Comment on above: Order Comment: Speci men Type: BLOOD SPECIMEN Ordering Facility: [facility] Address: [address] [place] [phone] Performed By: #### 5 7021-8 #### [facility] CLIA [id number] [address] [place] [address] Basophils/100 WBC (Bld) 0.2 % Normal [facility] Comment on above: Order Comment: Speci men Type: BLOOD SPECIMEN Ordering Facility: [facility] Address: [address] [address] Performed By: #### 5 7021-8 #### [facility] CLIA [id number] [address] [place] [address]394 Differential cell count method Nom (Bld) Auto Normal [facility] Comment on above: Order Comment: Speci men Type: BLOOD SPECIMEN Ordering Facility: [facility] Address: [address] [address] Performed By: #### 5 7021-8 #### [facility] CLIA [id number] [address] [place] [address] Eosinophils (Bld) [#/Vol] 10*3/uL Normal <0.46 [facility] Comment on above: Order Comment: Speci men Type: BLOOD SPECIMEN Ordering Facility: [facility] Address: [address] [address] Performed By: #### 5 7021-8 #### [facility] CLIA [id number] [address] [place] [address]55 Eosinophils/100 WBC (Bld) 0.0 % Normal [facility] Comment on above: Order Comment: Speci men Type: BLOOD SPECIMEN Ordering Facility: [facility] Address: [address] [address] Performed By: #### 5 7021-8 #### [facility] CLIA [id number] [address] [place] [address] Erythrocyte distribution width (RBC) [Ratio] 14.3 % Normal 11.5-15.0 [facility] Comment on above: Order Comment: Speci men Type: BLOOD SPECIMEN Ordering Facility: [facility] Address: [address] [address] Performed By: #### 5 7021-8 #### [facility] CLIA [id number] [address] [place] [address] Hematocrit (Bld) [Volume fraction] 38.4 % Normal 36.0-46.0 [facility] Comment on above: Order Comment: Speci men Type: BLOOD SPECIMEN Ordering Facility: [facility] Address: [address] [place] [address] Performed By: #### 5 7021-8 #### [facility] CLIA [id number] [address] [place] [address]22 Hemoglobin (Bld) [Mass/Vol] 11.7 g/dL Normal 11.5-15.5 [facility] Comment on above: Order Comment: Speci men Type: BLOOD SPECIMEN Ordering Facility: [facility] Address: [address] [place] [address] Performed By: #### 5 7021-8 #### [facility] CLIA [id number] [address] [place] [address]90 Immature granulocytes (Bld) [#/Vol] 10*3/uL Normal <0.10 [facility] Comment on above: Order Comment: Speci men Type: BLOOD SPECIMEN Ordering Facility: [facility] Address: [address] [place] [address] Performed By: #### 5 7021-8 #### [facility] CLIA [id number] [address] [place] [address]9667 Immature granulocytes/100 WBC (Bld) 0.2 % Normal [facility] Comment on above: Order Comment: Speci men Type: BLOOD SPECIMEN Ordering Facility: [facility] Address: [address] [place] [address] Performed By: #### 5 7021-8 #### [facility] CLIA [id number] [address] [place] [address] Lymphocytes (Bld) [#/Vol] 1.41 10*3/uL Normal 1.00-4.00 [facility] Comment on above: Order Comment: Speci men Type: BLOOD SPECIMEN Ordering Facility: [facility] Address: [address] [address] Performed By: #### 5 7021-8 #### [facility] CLIA [id number] [address] [place] [address]107 Lymphocytes/100 WBC (Bld) 14.2 % Normal [facility] Comment on above: Order Comment: Speci men Type: BLOOD SPECIMEN Ordering Facility: [facility] Address: [address] [address] Performed By: #### 5 7021-8 #### [facility] CLIA [id number] [address] [place] [address] 86527 MCH (RBC) [Entitic mass] 28.8 pg Normal 26.0-34.0 [facility] Comment on above: Order Comment: Speci men Type: BLOOD SPECIMEN Ordering Facility: [facility] Address: [address] [address] Performed By: #### 5 7021-8 #### [facility] CLIA [id number] [address] [place] [address]08 MCHC (RBC) [Mass/Vol] 30.5 g/dL Normal 30.5-36.0 [facility] Comment on above: Order Comment: Speci men Type: BLOOD SPECIMEN Ordering Facility: [facility] Address: [address] [address] Performed By: #### 5 7021-8 #### [facility] CLIA [id number] [address] [place] [address] 01275 MCV (RBC) [Entitic vol] 94.6 fL Normal 80.0-100.0 [facility] Comment on above: Order Comment: Speci men Type: BLOOD SPECIMEN Ordering Facility: [facility] Address: [address] [place] [address] Performed By: #### 5 7021-8 #### [facility] CLIA [id number] [address] [place] [address]321 Monocytes (Bld) [#/Vol] 0.77 10*3/uL Normal <0.87 [facility] Comment on above: Order Comment: Speci men Type: BLOOD SPECIMEN Ordering Facility: [facility] Address: [address] Performed By: #### 5 7021-8 #### [facility] CLIA [id number] [address] [place] [address] 49500 Monocytes/100 WBC (Bld) 7.7 % Normal [facility] Comment on above: Order Comment: Speci men Type: BLOOD SPECIMEN Ordering Facility: [facility] Address: [address] [address] Performed By: #### 5 7021-8 #### [facility] CLIA [id number] [address] [place] [address] 29437 Neutrophils (Bld) [#/Vol] 7.72 10*3/uL High 1.45-7.50 [facility] Comment on above: Order Comment: Speci men Type: BLOOD SPECIMEN Ordering Facility: [facility] Address: [address] Performed By: #### 5 7021-8 #### [facility] CLIA [id number] [address] [place] [address] 33283 Neutrophils/100 WBC (Bld) 77.7 % Normal [facility] Comment on above: Order Comment: Speci men Type: BLOOD SPECIMEN Ordering Facility: [facility] Address: [address] Performed By: #### 5 7021-8 #### [facility] CLIA [id number] [address] [place] [address]2636 Nucleated RBC (Bld) [#/Vol] 10*3/uL Normal <0.01 [facility] Comment on above: Order Comment: Speci men Type: BLOOD SPECIMEN Ordering Facility: [facility] Address: [address] Performed By: #### 5 7021-8 #### [facility] CLIA [id number] [address] [place] [address] Nucleated RBC/100 WBC (Bld) [Ratio] 0.0 /100 WBC Normal [facility] Comment on above: Order Comment: Speci men Type: BLOOD SPECIMEN Ordering Facility: [facility] Address: [address] [place] [address] Performed By: #### 5 7021-8 #### [facility] CLIA [id number] [address] [place] [address] Platelet mean volume (Bld) [Entitic vol] 9.5 fL Normal 9.0-12.7 [facility] Comment on above: Order Comment: Speci men Type: BLOOD SPECIMEN Ordering Facility: [facility] Address: [address] [place] [address] Performed By: #### 5 7021-8 #### [facility] CLIA [id number] [address] [place] [address] 67453 Platelets (Bld) [#/Vol] 260 10*3/uL Normal 150-400 [facility] Comment on above: Order Comment: Speci men Type: BLOOD SPECIMEN Ordering Facility: [facility] Address: [address] [place] [address] Performed By: #### 5 7021-8 #### [facility] CLIA [id number] [address] [place] [address] 73340 RBC (Bld) [#/Vol] 4.06 10*6/uL Normal 3.90-5.20 [facility] Comment on above: Order Comment: Speci men Type: BLOOD SPECIMEN Ordering Facility: [facility] Address: [address] [place] [address] Performed By: #### 5 7021-8 #### [facility] CLIA [id number] [address] [place] [address] 43680 WBC (Bld) [#/Vol] 9.94 10*3/uL Normal 3.70-11.00 [facility] Comment on above: Order Comment: Speci men Type: BLOOD SPECIMEN Ordering Facility: [facility] Address: [place] [address] Performed By: #### 5 7021-8 #### [facility] CLIA [id number] [address] [place] [address] 8[address]46 CNOVSPon 03-14-2023 CNOVSP Visit (SP) Office ([place]) KAYLIE SALOMON ([id number]) 1950 F Date Time Provider Department 03/14/23 1:30 PM REGINALD ARAGON During your visit today, we recorded the following information about you: Temperature Pulse Respiration Blood pressure 97.7 degrees 68/minute 16/minute 114/63 Weight Height 119.9 kg 1.677 m Reginald Aragon MD 03/15/2023 7:38 AM Signed PATIENT NAME: Kaylie Salomon DATE: 03/14/2023 PRIMARY CARE PHYSICIAN: Dr. Charles Landeros OTHER PHYSICIANS: Dr. Ramon Smith, [place] [facility] X[facility] Portions of this encounter note have been copied from the note from 09/13/2022 and has been updated where appropriate, and reflect my current medical decision making from today. CC: This is a 73 year old female with a history of breast cancer, seen for scheduled follow-up. INTERIM HISTORY: Since the patient's last visit here she apparently underwent cataract surgery in December 2022. She has had no other significant medical changes. Currently she feels well with no complaints. She denies any left breast or right chest wall. No unusual pain or other systemic symptoms. MEDICATIONS: potassium chloride 20 mEq TbER TAKE 2 TABLETS BY MOUTH EVERY DAY ADULTS 50 PLUS 0.4-300-250 mg-mcg-mcg tab Take 1 tablet by mouth once daily. FASENRA PEN 30 mg/mL potassium chloride ER (K-DUR, KLOR-CON) 20 mEq tablet Take 2 tablets by mouth once daily. FARXIGA 5 mg tablet metFORMIN (GLUCOPHAGE) 500 mg tablet TK 1 T PO BID predniSONE (DELTASONE) 10 mg tablet TK 3 TS PO QAM FOR 3 DAYS FOR ASTHMA FLARE montelukast (SINGULAIR) 10 mg tablet TK 1 T PO QD ipratropium-albuterol (DUONEB) 0.5 mg-3 mg(2.5 mg base)/3 mL nebu INHALE THE CONTENTS OF 1 VIAL THROUGH NEBULIZER QID NYSTOP powder Apply to affected area twice daily as needed. APPLY TO AFFECTED AREA silver sulfADIAZINE (SILVADENE,THERMAZENE) 1 % cream Apply to affected area twice daily albuterol HFA (PROVENTIL HFA, VENTOLIN HFA) 90 mcg/actuation inhaler Inhale 2 Puffs as instructed every 6 hours as needed. pantoprazole DR (PROTONIX) 40 mg tablet Take 40 mg by mouth once daily. loratadine (CLARITIN) 10 mg tablet Take 10 mg by mouth once daily. acetaminophen (TYLENOL) 500 mg tablet Take 1,000 mg by mouth every 6 hours as needed. prochlorperazine (COMPAZINE) 10 mg tablet Take 1 tablet by mouth every 6 hours as needed. ondansetron (ZOFRAN) 8 mg tablet Take 1 tablet by mouth every 8 hours as needed for Nausea/Vomiting. ELIQUIS 5 mg tab(s) Take 5 mg by mouth twice daily. atorvastatin (LIPITOR) 40 mg tablet Take 40 mg by mouth once daily. VITAMIN D-3 2,000 unit cap 2,000 Units once daily. ADVAIR DISKUS 500-50 mcg/dose dsdv 1 Puff twice daily. fluticasone (FLONASE) 50 mcg/actuation nasal spray 2 Sprays once daily. furosemide (LASIX) 20 mg tablet Take 20 mg by mouth once daily. losartan (COZAAR) 100 mg tablet Take 100 mg by mouth once daily. metoprolol tartrate, short acting, (LOPRESSOR) 50 mg tablet Take 50 mg by mouth twice daily. WOMEN'S MULTIVITAMIN 18 mg-400 mcg- 500 mg-50 mcg tab TK 1 T PO D sertraline (ZOLOFT) 50 mg tablet Take 50 mg by mouth once daily. SPIRIVA RESPIMAT 1.25 mcg/actuation mist Inhale 2 Puffs as instructed once daily. ALLERGIES: Clarithromycin, Conjugated Estrogens, Neosporin [Eukoqxjg-Qqahzrvzud-E olymyxin], Paclitaxel, Peanut, Penicillins, and Sulfa (Sulfonamide Antibiotics) PAST MEDICAL HISTORY: PAST MEDICAL HISTORY Diagnosis Date AF (atrial fibrillation) (HCC) Asthma Breast cancer (HCC) 02/[address] Landeros COPD (chronic obstructive pulmonary disease) (HCC) Edema Hyperlipidemia Hypertension OA (osteoarthritis of spine) Port-A-Cath in place PAST SURGICAL HISTORY: PAST SURGICAL HISTORY Procedure Laterality Date CARDIAC CATH 12/2018 PORTOCATH PLACEMENT REVIEW OF SYSTEMS: General: No weight loss, malaise or fevers. HEENT: Negative for frequent or significant headaches, No changes in hearing or vision, no nose bleeds or other nasal problems Respiratory: Negative for cough, wheezing or shortness of breath. Cardiovascular: Negative for chest pain, leg swelling or palpitations. GI: Negative for abdominal discomfort, blood in stools or black stools or change in bowel habits. : No history of dysuria, frequency or incontinence. Musculoskeletal: Negative for: joint pain or swelling, back pain and muscle pain. Skin: Negative for lesions, rash and itching. Hematology/Lymphology: Negative for prolonged bleeding, bruising easily or swollen nodes. Neuro: No history of headaches, syncope, paralysis, seizures or tremors. PHYSICAL EXAM: Vitals: BP 114/63 Pulse 68 Temp 36.5 ?C (97.7 ?F) (Temporal) Resp 16 Ht 167.7 cm (5' 6.02 ) Wt 119.9 kg (264 lb 6.4 oz) SpO2 97% BMI 42.64 kg/m? ECOC 0 Exam limited to gross visualization where appropriate due to COVID-19 (more content not included)... Normal [facility] Cancer Ag27-29 SerPl-aCncon 03-14-2023 Cancer Ag 27-29 Qn 23.1 [arb'U]/mL Normal <38.6 C [facility] Comment on above: Order Comment: Speci men Type: BLOOD SPECIMEN Ordering Facility: [facility] Address: [address] [place] [address] Result Comment: The CA27.29 test was performed using the [employer] XP chemiluminometric immunoassay method. Results obtained with different assay methods or kits cannot be used interchangeably. Performed By: #### 1 7842-6 #### [facility] CLIA [id number] [address] [id number] [address] [place] Comprehensive metabolic 2000 panelon 03-14-2023 Albumin [Mass/Vol] 4.2 g/dL Normal 3.9-4.9 [facility] Comment on above: Order Comment: Speci men Type: BLOOD SPECIMEN Ordering Facility: [facility] Address: [address] [address] Performed By: #### 2 4323-8 #### [facility] CLIA [id number] [address] [place] [address]16 ALP [Catalytic activity/Vol] 95 U/L Normal 34-123 [facility] Comment on above: Order Comment: Speci men Type: BLOOD SPECIMEN Ordering Facility: [facility] Address: [address] [address] Performed By: #### 2 4323-8 #### [facility] CLIA [id number] [address] [place] [address] 67544 ALT [Catalytic activity/Vol] 11 U/L Normal 7-38 [facility] Comment on above: Order Comment: Speci men Type: BLOOD SPECIMEN Ordering Facility: [facility] Address: [address] [address] Performed By: #### 2 4323-8 #### [facility] CLIA [id number] [address] [place] [address]85 Anion gap [Moles/Vol] 11 mmol/L Normal 9-18 [facility] Comment on above: Order Comment: Speci men Type: BLOOD SPECIMEN Ordering Facility: [facility] Address: [address] [address] Performed By: #### 2 4323-8 #### [facility] CLIA [id number] [address] [place] [address] 06657 AST [Catalytic activity/Vol] 14 U/L Normal 13-35 [facility] Comment on above: Order Comment: Speci men Type: BLOOD SPECIMEN Ordering Facility: [facility] Address: [address] [address] Performed By: #### 2 4323-8 #### [facility] CLIA [id number] [address] [place] [address] 10225 Bilirubin [Mass/Vol] 0.5 mg/dL Normal 0.2-1.3 [facility] Comment on above: Order Comment: Speci men Type: BLOOD SPECIMEN Ordering Facility: [facility] Address: [address] [address] Performed By: #### 2 4323-8 #### [facility] CLIA [id number] [address] [place] [address] 25014 Calcium [Mass/Vol] 9.3 mg/dL Normal 8.5-10.2 [facility] Comment on above: Order Comment: Speci men Type: BLOOD SPECIMEN Ordering Facility: [facility] Address: [address] [address] Performed By: #### 2 4323-8 #### [facility] CLIA [id number] [address] [place] [address] 66811 Chloride [Moles/Vol] 98 mmol/L Normal 97-105 [facility] Comment on above: Order Comment: Speci men Type: BLOOD SPECIMEN Ordering Facility: [facility] Address: [address] [address] Performed By: #### 2 4323-8 #### [facility] CLIA [id number] [address] [place] [address] 42685 CO2 [Moles/Vol] 30 mmol/L Normal 22-30 [facility] Comment on above: Order Comment: Speci men Type: BLOOD SPECIMEN Ordering Facility: [facility] Address: [address] [address] Performed By: #### 2 4323-8 #### [facility] CLIA [id number] [address] [place] [address] 20632 Creatinine [Mass/Vol] 0.97 mg/dL High 0.58-0.96 [facility] Comment on above: Order Comment: Jennifer stahl Type: BLOOD SPECIMEN Ordering Facility: [facility] Address: [address] [id number] Performed By: #### 2 4323-8 #### [facility] CLIA [id number] [address] [place] [address] 48425 ESTIMATED GLOMERULAR FILTRATION RATE 61 mL/min/1.73m??? Normal >=60 [facility] Comment on above: Order Comment: Jennifer stahl Type: BLOOD SPECIMEN Ordering Facility: [facility] Address: [address] Result Comment: Violette mated Glomerular Filtration Rate (eGFR) is calculated using the 2020 CKD-EPI creatinine equation. This equation utilizes serum creatinine, sex, and age as parameters. The creatinine assay has traceable calibration to isotope dilution-mass spectrometry. Refer to KDIGO guidelines for clinical interpretation. In patients with unstable renal function, e.g. those with acute kidney injury, the eGFR may not accurately reflect actual GFR. Performed By: #### 2 4323-8 #### [facility] CLIA [id number] [address] [place] [address] 71378 Glucose [Mass/Vol] 138 mg/dL High 74-99 [facility] Comment on above: Order Comment: Jennifer stahl Type: BLOOD SPECIMEN Ordering Facility: [facility] Address: [address] [id number] Result Comment: The [place] Diabetes Association (ADA) provides guidance for cutoff values for fasting glucose and random glucose. The ADA defines fasting as no caloric intake for at least 8 hours. Fasting plasma glucose results between 100 to 125 mg/dL indicate increased risk for diabetes (prediabetes). Fasting plasma glucose results greater than or equal to 126 mg/dL meet the criteria for diagnosis of diabetes. In the absence of unequivocal hyperglycemia, results should be confirmed by repeat testing. In a patient with classic symptoms of hyperglycemia or hyperglycemic crisis, random plasma glucose results greater than or equal to 200 mg/dL meet the criteria for diagnosis of diabetes. Reference: Standards of Medical Care in Diabetes 2016, [place] Diabetes Association. Diabetes Care. 2016.39(Suppl 1). Performed By: #### 2 4323-8 #### [facility] CLIA [id number] [address] [place] [address] 73473 Potassium [Moles/Vol] 4.8 mmol/L Normal 3.7-5.1 [facility] Comment on above: Order Comment: Speci men Type: BLOOD SPECIMEN Ordering Facility: [facility] Address: [address] [address] Performed By: #### 2 4323-8 #### [facility] CLIA [id number] [address] [place] [address] 89380 Protein [Mass/Vol] 7.2 g/dL Normal 6.3-8.0 [facility] Comment on above: Order Comment: Speci men Type: BLOOD SPECIMEN Ordering Facility: [facility] Address: [address] [place] [address] Performed By: #### 2 4323-8 #### [facility] CLIA [id number] [address] [place] [address] 04501 Sodium [Moles/Vol] 139 mmol/L Normal 136-144 [facility] Comment on above: Order Comment: Speci men Type: BLOOD SPECIMEN Ordering Facility: [facility] Address: [address] [place] [address] Performed By: #### 2 4323-8 #### [facility] CLIA [id number] [address] [place] [address] 75891 Urea nitrogen [Mass/Vol] 32 mg/dL High 7-21 [facility] Comment on above: Order Comment: Speci men Type: BLOOD SPECIMEN Ordering Facility: [facility] Address: [address] [address] Performed By: #### 2 4323-8 #### [facility] CLIA [id number] [address] [place] [address] 07450 CBC W Auto Differential pane l (Bld)on 12-15-2022 Basophils (Bld) [#/Vol] <0.11 k/uL [facility] Basophils/100 WBC (Bld) 0.2 % [facility] Differential cell count method Nom (Bld) Auto [facility] Eosinophils (Bld) [#/Vol] <0.46 k/uL [facility] Eosinophils/100 WBC (Bld) 0.0 % [facility] Erythrocyte distribution width (RBC) [Ratio] 14.1 % 11.5 - 15.0 % [facility] Hematocrit (Bld) [Volume fraction] 38.1 % 36.0 - 46.0 % [facility] Hemoglobin (Bld) [Mass/Vol] 11.7 g/dL 11.5 - 15.5 g/dL [facility] Immature granulocytes (Bld) [#/Vol] 0.05 10*3/uL <0.10 k/uL [facility] Immature granulocytes/100 WBC (Bld) 0.5 % [facility] Lymphocytes (Bld) [#/Vol] 1.15 10*3/uL 1.00 - 4.00 k/uL [facility] Lymphocytes/100 WBC (Bld) 11.5 % [facility] MCH (RBC) [Entitic mass] 29.4 pg 26.0 - 34.0 pg [facility] MCHC (RBC) [Mass/Vol] 30.7 g/dL 30.5 - 36.0 g/dL [facility] MCV (RBC) [Entitic vol] 95.7 fL 80.0 - 100.0 fL [facility] Monocytes (Bld) [#/Vol] 0.75 10*3/uL <0.87 k/uL [facility] Monocytes/100 WBC (Bld) 7.5 % [facility] Neutrophils (Bld) [#/Vol] 8.04 10*3/uL High 1.45 - 7.50 k/uL [facility] Neutrophils/100 WBC (Bld) 80.3 % [facility] Nucleated RBC (Bld) [#/Vol] <0.01 k/uL [facility] Nucleated RBC/100 WBC (Bld) [Ratio] 0.0 /100 WBC [facility] Platelet mean volume (Bld) [Entitic vol] 10.0 fL 9.0 - 12.7 fL [facility] Platelets (Bld) [#/Vol] 267 10*3/uL 150 - 400 k/uL [facility] RBC (Bld) [#/Vol] 3.98 10*6/uL 3.90 - 5.2 0 m/uL [facility] WBC (Bld) [#/Vol] 10.01 10*3/uL 3.70 - 11 .00 k/uL [facility] Comprehensive metabolic 2000 panelon 09-13-2022 Albumin [Mass/Vol] 4.2 g/dL 3.9 - 4.9 g/dL [facility] ALP [Catalytic activity/Vol] 97 U/L 34 - 123 U/L [facility] ALT [Catalytic activity/Vol] 10 U/L 7 - 38 U/L [facility] Anion gap [Moles/Vol] 10 mmol/L 9 - 18 mmol/L [facility] AST [Catalytic activity/Vol] 12 U/L Low 13 - 35 U/L [facility] Bilirubin [Mass/Vol] 0.4 mg/dL 0.2 - 1.3 mg/dL [facility] Calcium [Mass/Vol] 9.3 mg/dL 8.5 - 10. 2 mg/dL [facility] Chloride [Moles/Vol] 101 mmol/L 97 - 105 mmol/L [facility] CO2 [Moles/Vol] 29 mmol/L 22 - 30 mmol/L [facility] Creatinine [Mass/Vol] 1.02 mg/dL High 0.58 - 0.96 mg/dL [facility] Estimated Glomerular Filtration Rate 58 mL/min/1.73m Low >=60 mL/min/1.73m [facility] Glucose [Mass/Vol] 139 mg/dL High 74 - 99 mg/dL [facility] Potassium [Moles/Vol] 3.9 mmol/L 3.7 - 5.1 mmol/L [facility] Protein [Mass/Vol] 6.9 g/dL 6.3 - 8.0 g/dL [facility] Sodium [Moles/Vol] 140 mmol/L 136 - 144 mmol/L [facility] Urea nitrogen [Mass/Vol] 25 mg/dL High 7 - 21 mg/dL [facility] XR CHEST 2 Von 08-15-2022 XR CHEST 2 V EXAMINATION: XR CHES T 2 V HISTORY: Lobar pneumonia COMPARISON: XR chest 07/23/2022 FINDINGS: LUNGS: Elevated right hemidiaphragm with mild stranding within right lung apex and lateral left lung base. Small patchy opacity within right lung base. VASCULATURE: No increased pulmonary vasculature. PLEURA: No pneumothorax, effusion, or pleural thickening. CARDIAC: Likely approaches upper limits of normal. MEDIASTINUM: No visible mass or adenopathy. BONES: No fracture or visible bone lesion. OTHER: Negative. IMPRESSION: 1. Underexpanded lungs with stable mild bilateral atelectasis versus infiltrates. No appreciable change. Electronically authenticated by: DEEPTI MALLORY Date: 2022-08-15 06:58 Normal [facility] BNPon 07-23-2022 Natriuretic peptide B (Bld) [Mass/Vol] 1362.0 pg/mL Critically high <=900.0 [facility] Comment on above: Performed By: #### C MADM, CMP, BNP #### [facility] [address] [address] [address] Hector Rubio CARDIAC [place] ADMITon 022 CK [Catalytic activity/Vol] 84 U/L Normal 26-192 [facility] Comment on above: Performed By: #### C MADM, CMP, BNP #### [facility] [address] [address] [address] Hector Rubio CK.MB [Mass/Vol] 2.22 ng/mL Normal <=3.60 [facility] Comment on above: Performed By: #### C MADM, CMP, BNP #### [facility] [address] [address] [address] Hector Rubio HSTROP 41.0 pg/mL Normal 4.0-51.3 [facility] Comment on above: Result Comment: CUT- OFF POINTS HAVE BEEN ESTABLISHED BASED ON THE FOURTH UNIVERSAL DEFINITIONS OF MYOCARDIAL INFARCTION. THE UPPER REFERENCE LIMIT (URL) OF TROPONIN, DEFINED THE 99TH PERCENTILE OF cTnI DISTRIBUTION IN A REFERENCE POPULATION, HAS BEEN CONFIRMED THE DECISION THRESHOLD FOR LA DIAGNOSIS. Performed By: #### C MADM, CMP, BNP #### [facility] [address] [address] [address] Hector Rubio DIONNE 95 ng/mL Critically high 9-82 [facility] Comment on above: Performed By: #### C MADM, CMP, BNP #### [facility] [address] [place] [address] Dr. Hector Rubio CBC AUTO DIFFon 07-23-2022 BASO # 0.0 103/ul Normal 0.0-0.1 [facility] Comment on above: Performed By: #### C BC #### [facility] [address] [place] [address] Dr. Hector Rubio Basophils/100 WBC (Bld) 0.1 % Critically low 0.2-2.0 [facility] Comment on above: Performed By: #### C BC #### [facility] [address] [place] [address] Dr. Hector Rubio EO # 0.0 103/ul Normal 0.0-0.7 [facility] Comment on above: Performed By: #### C BC #### [facility] [address] [place] [address] Dr. Hector Rubio Eosinophils/100 WBC (Bld) 0.0 % Critically low 0.9-7.0 [facility] Comment on above: Performed By: #### C BC #### [facility] [address] [place] [address] Dr. Hector Rubio Erythrocyte distribution width (RBC) [Ratio] 13.7 % Normal 11.0-15.0 [facility] Comment on above: Performed By: #### C BC #### [facility] [address] [place] [address] Dr. Hector Rubio Hematocrit (Bld) [Volume fraction] 38.9 % Normal 36.0-48.0 [facility] Comment on above: Performed By: #### C BC #### [facility] [address] [place] [address] Dr. Hector Rubio Hemoglobin (Bld) [Mass/Vol] 11.8 g/dL Critically low 12.0-16.0 [facility] Comment on above: Performed By: #### C BC #### [facility] [address] [place] [address] Dr. Hector Rubio IG # 0.02 10e3/ul Normal 0.00-0.03 [facility] Comment on above: Performed By: #### C BC #### [facility] [address] [place] [address] Dr. Hector Rubio IG % 0.3 % Normal 0.0-0.5 [facility] Comment on above: Performed By: #### C BC #### [facility] [address] [place] [address] Dr. Hector Rubio LYMPH # 1.0 103/ul Critically low 1.2-3.8 [facility] Comment on above: Performed By: #### C BC #### [facility] [address] [place] [address] Dr. Hector Rubio Lymphocytes/100 WBC (Bld) 12.6 % Critically low 20.5-60.0 [facility] Comment on above: Performed By: #### C BC #### [facility] [address] [place] [address] Dr. Hector Rubio MANUAL DIFF REQ NO Normal [facility] Comment on above: Performed By: #### C BC #### [facility] [address] [place] [address] Dr. Hector Rubio MCH (RBC) [Entitic mass] 29.0 pg Normal 26.7-34.0 [facility] Comment on above: Performed By: #### C BC #### [facility] [address] [place] [address] Dr. Hector Rubio MCHC (RBC) [Mass/Vol] 30.3 g/dL Normal 29.9-35.2 [facility] Comment on above: Performed By: #### C BC #### [facility] [address] [place] [address] Dr. Hector Rubio MCV (RBC) [Entitic vol] 95.6 fL Normal 81.0-99.0 [facility] Comment on above: Performed By: #### C BC #### [facility] [address] [place] [address] Dr. Hector Rubio MONO # 0.7 103/ul Normal 0.3-0.8 [facility] Comment on above: Performed By: #### C BC #### [facility] [address] [place] [address] Dr. Hector Rubio Monocytes/100 WBC (Bld) 9.0 % Normal 1.7-12.0 [facility] Comment on above: Performed By: #### C BC #### [facility] [address] [place] [address] Dr. Hector Rubio NEUT # 6.1 103/ul Normal 1.4-6.5 [facility] Comment on above: Performed By: #### C BC #### [facility] [address] [place] [address] Dr. Hector Rubio Neutrophils/100 WBC (Bld) 78.0 % Critically high 43.0-75.0 [facility] Comment on above: Performed By: #### C BC #### [facility] [address] [place] [address] Dr. Hector Rubio Platelet mean volume (Bld) [Entitic vol] 9.7 fL Normal 9.5-13.5 [facility] Comment on above: Performed By: #### C BC #### [facility] [address] [place] [address] Dr. Hector Rubio PLT 202 103/ul Normal 150-450 [facility] Comment on above: Performed By: #### C BC #### [facility] [address] [place] [address] Dr. Hector Rubio RBC 4.07 106/ul Critically low 4.20-5.40 [facility] Comment on above: Performed By: #### C BC #### [facility] [address] [place] [address] Dr. Hector Rubio WBC 7.8 103/ul Normal 4.0-11.0 [facility] Comment on above: Performed By: #### C BC #### [facility] [address] [place] [address] Dr. Hector Rubio [facility] SARS-CoV-2 (COVID-19) RNA SHLOMO+probe Ql (Unsp spec) Not detected Normal NOT DETECTED [facility] Comment on above: Result Comment: When diagnostic testing is negative, the possibility of a false negative should be considered in the context of a patient's recent exposures and the presence of clinical signs and symptoms consistent with SARS-CoV-2. This test is not yet approved or cleared by the [place] FDA. When there are no FDA-approved or cleared tests available, and other criteria are met, FDA can make tests available under an emergency access mechanism called an Emergency Use Authorization (EUA). The EUA for this test is supported by the [employer] Health and Human Service's declaration that circumstances exist to justify the emergency use of in vitro diagnostics for the detection and/or diagnosis of the virus that causes COVID-19. This EUA will remain in effect for the duration of the COVID-19 declaration justifying emergency of IVDs, unless it is terminated or revoked by the FDA (after which the test may no longer be used). Performed By: #### C VDTBH #### [facility] [address] [place] [address] Dr. Hector Rubio PROF 14(COMP METB)on 022 Albumin [Mass/Vol] 3.7 g/dL Normal 3.4-5.0 [facility] Comment on above: Performed By: #### C MADM, CMP, BNP #### [facility] [address] [place] [address] Dr. Hector Rubio Albumin/Globulin [Mass ratio] 0.9 {ratio} Normal [facility] Comment on above: Performed By: #### C MADM, CMP, BNP #### [facility] [address] [place] [address] Dr. Hector Rubio ALP [Catalytic activity/Vol] 90 U/L Normal 46-116 [facility] Comment on above: Performed By: #### C MADM, CMP, BNP #### [facility] [address] [place] [address] Dr. Hector Rubio ALT [Catalytic activity/Vol] 17 U/L Normal 14-59 [facility] Comment on above: Performed By: #### C MADM, CMP, BNP #### [facility] [address] [place] [address] Dr. Hector Rubio Anion gap [Moles/Vol] 7.8 mmol/L Normal [facility] Comment on above: Performed By: #### C MADM, CMP, BNP #### [facility] [address] [address] [address] Hector Rubio AST [Catalytic activity/Vol] 12 U/L Critically low 15-37 [facility] Comment on above: Performed By: #### C MADM, CMP, BNP #### [facility] [address] [address] [address] Hector uRbio Bilirubin [Mass/Vol] 0.5 mg/dL Normal 0.2-1.0 [facility] Comment on above: Performed By: #### C MADM, CMP, BNP #### [facility] [address] [address] [address] Hector Rubio Calcium [Mass/Vol] 9.1 mg/dL Normal 8.5-10.1 [facility] Comment on above: Performed By: #### C MADM, CMP, BNP #### [facility] [address] [address] [address] Hector Rubio Chloride [Moles/Vol] 102 mmol/L Normal 98-107 [facility] Comment on above: Performed By: #### C MADM, CMP, BNP #### [facility] [address] [address] [address] Hector Rubio CO2 [Moles/Vol] 33.1 mmol/L Critically high 21.0-32.0 [facility] Comment on above: Performed By: #### C MADM, CMP, BNP #### [facility] [address] [address] [address] Hector Rubio Creatinine [Mass/Vol] 0.89 mg/dL Normal 0.55-1.02 [facility] Comment on above: Performed By: #### C MADM, CMP, BNP #### [facility] [address] [address] [address] Hector Rubio EGFR-AF MACANESE >60 Normal >=60 [facility] Comment on above: Performed By: #### C MADM, CMP, BNP #### [facility] [address] [address] [address] Hector Rubio EGFR-NON AF MACANESE >60 Normal >=60 [facility] Comment on above: Performed By: #### C MADM, CMP, BNP #### [facility] [address] [address] [address] Hector Rubio Globulin (S) [Mass/Vol] 4.0 g/dL Normal [facility] Comment on above: Performed By: #### C MADM, CMP, BNP #### [facility] [address] [address] [address] Hector Rubio Glucose [Mass/Vol] 118 mg/dL Critically high 74-106 [facility] Comment on above: Performed By: #### C MADM, CMP, BNP #### [facility] [address] [address] [address] Hector Rubio Potassium [Moles/Vol] 3.9 mmol/L Normal 3.5-5.1 [facility] Comment on above: Performed By: #### C MADM, CMP, BNP #### [facility] [address] [address] [address] Hector Rubio Protein [Mass/Vol] 7.7 g/dL Normal 6.4-8.[address] [facility] Comment on above: Performed By: #### C MADM, CMP, BNP #### [facility] [address] [address] [address] Hector Rubio Sodium [Moles/Vol] 139 mmol/L Normal 136-[address] [facility] Comment on above: Performed By: #### C MADM, CMP, BNP #### [facility] [address] [address] [address] Hector Rubio Urea nitrogen [Mass/Vol] 29.0 mg/dL Critically high 7.0-18.0 [facility] Comment on above: Performed By: #### C MADM, CMP, BNP #### [facility] [address] [address] [address] Hector Rubio Urea nitrogen/Creatinine [Mass ratio] 32.6 mg/mg Normal [facility] Comment on above: Performed By: #### C MADM, CMP, BNP #### [facility] [address] [address] [address] Hector Rubio XR CHEST 1 Von 07-23-2022 XR CHEST 1 V EXAM: Chest x-ray HISTORY: SHORTNESS OF BREATH. COMPARISON: 06/20/2019 TECHNIQUE: AP portable erect view of the chest FINDINGS: This is an expiratory chest. Heart is slightly enlarged. There is prominence of the bronchovascular markings. There is elevation of the right hemidiaphragm a compared left. No consolidation is noted. IMPRESSION: 1 expiratory chest. 2. Slight cardiac enlargement. 3. Prominence of the bronchovascular markings. Findings could be due to the expiratory nature the film. Bronchitis or an interstitial pneumonitis or early failure cannot entirely be excluded. Clinical correlation is suggested. 4. Elevation of the right hemidiaphragm which is chronic. Electronically authenticated by: GABRIELLE LIU Date: 2022-07-23 16:40 Normal [facility] MAMM DX 3D LT CADon 06-14 MG MAMM DX 3D LT CAD Patient: KAYLIE SALOMON Exam Date: 06/14/2022 : 1950 Gender:F Ordering : DR REGINALD ARAGON M.D. Admission #: [id number] Family : Order #: [id number] CLICK HERE TO VIEW EXAM CORRECTION Corrected on: 09/18/2022; RADIOLOGY REPORT PROCEDURE: MAMMOGRAM DIAGNOSTIC 3D LEFT CAD COMPARISON: MG MAMM LT DIAG W CAD, 06/08/2020. MG MAMM SCREEN CROW W CAD, 11/26/2017. MG MAMM DX 3D LT CAD, 06/13/2021. INDICATIONS: Estrogen receptor negative neoplasm Calculator Name NCI Breast Cancer Risk Assessment Tool 5 Year Breast Cancer Risk 2.70% Lifetime Breast Cancer Risk 6.20% Personal Breast Cancer No Personal Ovarian Cancer No Treatments None Family Cancers None LOCATION: [facility] BREAST COMPOSITION: Scattered areas fibroglandular density. FINDINGS: DIAGNOSTIC CATEGORY 2--BENIGN FINDING: LEFT BREAST: No significant suspicious finding. Scattered benign-appearing nodules are present. No significant change has occurred. RECOMMENDATIONS: ROUTINE MAMMOGRAM AND CLINICAL EVALUATION IN 12 MONTHS. PLEASE NOTE: A NORMAL MAMMOGRAM DOES NOT EXCLUDE THE POSSIBILITY OF BREAST CANCER. A CLINICALLY SUSPICIOUS PALPABLE LUMP SHOULD BE BIOPSIED. Dictated by: Deepti Mallory M.D. on 06/14/2022 at 10:31 Approved by: Deepti Mallory M.D. on 06/14/2022 at 10:39 Dictated by: Deepti Mallory M.D. on 09/18/2022 at 09:22 Approved by: Deepti Mallory M.D. on 09/18/2022 at 09:22 Normal [facility] BASIC METABOLIC PANELon 05-0 Calcium [Mass/Vol] 9.3 mg/dL Normal 8.6-10.3 [facility] Comment on above: Order Comment: Yes: Add to Previous draw if able Performed By: #### 0 0121, [id number] #### [facility] [address] [place] [address], [place] Chloride [Moles/Vol] 98 mmol/L Normal 98-107 [facility] Comment on above: Order Comment: Yes: Add to Previous draw if able Performed By: #### 0 0121, [id number] #### [facility] [address] [place] [address], [place] CO2 [Moles/Vol] 34 mmol/L High 21-31 [facility] Comment on above: Order Comment: Yes: Add to Previous draw if able Performed By: #### 0 0121, [id number] #### [facility] [address] [place] [address], [place] Creatinine [Mass/Vol] 0.59 mg/dL Low 0.60-1.20 [facility] Comment on above: Order Comment: Yes: Add to Previous draw if able Performed By: #### 0 0121, [id number] #### [facility] [address] [place] [address], [place] GFR/1.73 sq M predicted among blacks MDRD (S/P/Bld) [Vol rate/Area] mL/min/{1.73_m2} Normal >60 [facility] Comment on above: Order Comment: Yes: Add to Previous draw if able Result Comment: Calc ulation may not be valid for patients over 70 years Performed By: #### 0 0121, [id number] #### [facility] [address] [place] [address], [facility] GFR/1.73 sq M predicted among non-blacks MDRD (S/P/Bld) [Vol rate/Area] mL/min/{1.73_m2} Normal >60 [facility] Comment on above: Order Comment: Yes: Add to Previous draw if able Result Comment: Calc ulation may not be valid for patients over 70 years Performed By: #### 0 0121, [id number] #### [facility] [address] [place] [address], [place] Glucose [Mass/Vol] 256 mg/dL High 70-100 [facility] Comment on above: Order Comment: Yes: Add to Previous draw if able Performed By: #### 0 0121, [id number] #### [facility] [address] [place] [address], [place] Potassium [Moles/Vol] 4.5 mmol/L Normal 3.5-5.1 [facility] Comment on above: Order Comment: Yes: Add to Previous draw if able Performed By: #### 0 0121, 32514 #### [facility] [address] [place] [address], [place] Sodium [Moles/Vol] 139 mmol/L Normal 136-145 [facility] Comment on above: Order Comment: Yes: Add to Previous draw if able Performed By: #### 0 0121, [id number] #### [facility] [address] [place] [address], [place] Urea nitrogen [Mass/Vol] 21 mg/dL Normal 7-25 [facility] Comment on above: Order Comment: Yes: Add to Previous draw if able Performed By: #### 0 0121, 10939 #### [facility] [address] [place] [address], [place] CBC W/DIFFon 05-06-2019 ABS BASOPHILS 0.0 10*3/uL Normal 0.0-0.2 [facility] Comment on above: Performed By: #### 0 0121, [id number] #### [facility] [address] [facility] [place] [address], [facility] ABS IMM GRANS 0.1 10*3/uL Normal 0.0-0.2 [facility] Comment on above: Performed By: #### 0 0121, 24476 #### [facility] [address] [place] [address], [facility] ABS NEUTROPHILS 16.9 10*3/uL High 1.6-7.6 [facility] Comment on above: Performed By: #### 0 0121, [id number] #### [facility] [address] [place] [address], [facility] Basophils/100 WBC (Bld) 0.1 % Normal 0.0-1.0 [facility] Comment on above: Performed By: #### 0 012, 50541 #### [facility] [address] [facility] [place] [address], [facility] Eosinophils (Bld) [#/Vol] 0.0 10*3/uL Normal 0.0-0.5 [facility] Comment on above: Performed By: #### 0 0121, [id number] #### [facility] [address] [facility] [place] [address], [facility] Eosinophils/100 WBC (Bld) 0.0 % Normal 0.0-6.0 [facility] Comment on above: Performed By: #### 0 0121, 26702 #### [facility] [address] [facility] [place] [address], [facility] Erythrocyte distribution width (RBC) [Ratio] 14.3 % Normal 11.5-15.0 [facility] Comment on above: Performed By: #### 0 0121, 65724 #### [facility] [address] Hematocrit (Bld) [Volume fraction] 37.3 % Normal 36.0-45.0 [facility] Comment on above: Performed By: #### 0 012, 33245 #### [facility] [address] Hemoglobin (Bld) [Mass/Vol] 11.6 g/dL Low 12.0-15.0 [facility] Comment on above: Performed By: #### 0 012, 99155 #### [facility] [address] IMMATURE GRANS 0.4 % Normal 0.0-1.0 [facility] Comment on above: Performed By: #### 0 012, 89125 #### [facility] [address] Lymphocytes (Bld) [#/Vol] 0.5 10*3/uL Low 1.2-4.0 [facility] Comment on above: Performed By: #### 0 012, 68864 #### [facility] [address] Lymphocytes/100 WBC (Bld) 2.5 % Low 20.0-45.0 [facility] Comment on above: Performed By: #### 0 012, 10820 #### [facility] [address] MCH (RBC) [Entitic mass] 28.9 pg Normal 27.0-33.0 [facility] Comment on above: Performed By: #### 0 012, 93410 #### [facility] [address] MCHC (RBC) [Mass/Vol] 31.1 g/dL Low 32.0-35.0 [facility] Comment on above: Performed By: #### 0 012, 63113 #### [facility] [address] [place] [address], [facility] MCV (RBC) [Entitic vol] 93.0 fL Normal 82.0-98.0 [facility] Comment on above: Performed By: #### 0 012, 95902 #### [facility] [address] [place] [address], [facility] Monocytes (Bld) [#/Vol] 0.3 10*3/uL Normal 0.1-1.0 [facility] Comment on above: Performed By: #### 0 012, 18224 #### [facility] [address] [place] [address], [facility] MONOS 1.5 % Low 5.0-12.0 [facility] Comment on above: Performed By: #### 0 012, 89048 #### [facility] [address] Neutrophils/100 WBC (Bld) 95.5 % High 40.0-72.0 [facility] Comment on above: Performed By: #### 0 012, 15546 #### [facility] [address] [place] [address], [facility] Nucleated RBC/100 WBC (Bld) [Ratio] 0 % Normal 0-0 [facility] Comment on above: Performed By: #### 0 012, 72746 #### [facility] [address] [place] [address], [facility] PLAT CNT 265 10*3/uL Normal 150-400 [facility] [facility] Comment on above: Performed By: #### 0 012, [id number] #### [facility] [address] [place] [address], [facility] RBC (Bld) [#/Vol] 4.01 10*6/uL Normal 3.80-5.00 [facility] Comment on above: Performed By: #### 0 012, 35157 #### [facility] [address] [facility] [place] [address], [facility] WBC (Bld) [#/Vol] 17.67 10*3/uL High 4.00-10.60 [facility] Comment on above: Performed By: #### 0 0121, [id number] #### [facility] [address] [facility]. [address] POC GLUCOSE LABon 02-02-2019 Glucose [Mass/Vol] 215 mg/dL High 70-100 [facility] Comment on above: Performed By: #### 0 0121, [id number] #### [facility] [address] [facility]. [address] BNP (B-TYPE NATRIURETIC PEPT DARCI)on 02-01-2019 Natriuretic peptide B (Bld) [Mass/Vol] 423 pg/mL High 0-100 [facility] Comment on above: Order Comment: Yes: Add to Previous draw if able Result Comment: Give n the appropriate clinical setting a BNP result of >100 pg/mL indicates congestive heart failure. Performed By: #### 8 5123 #### [facility] [address] [facility] [place] [address], [facility] CBC W/DIFFon 02-01-2019 ABS BASOPHILS 0.0 10*3/uL Normal 0.0-0.2 [facility] Comment on above: Order Comment: Yes: Add to Previous draw if able Performed By: #### 5 0103 #### [facility] [address] [facility]. [address] ABS IMM GRANS 0.1 10*3/uL Normal 0.0-0.2 [facility] Comment on above: Order Comment: Yes: Add to Previous draw if able Performed By: #### 5 0103 #### [facility] [address] ABS NEUTROPHILS 12.2 10*3/uL High 1.6-7.6 [facility] Comment on above: Order Comment: Yes: Add to Previous draw if able Performed By: #### 5 0103 #### [facility] [address] [place] [address], [facility] Basophils/100 WBC (Bld) 0.2 % Normal 0.0-1.0 [facility] Comment on above: Order Comment: Yes: Add to Previous draw if able Performed By: #### 5 0103 #### [facility] [address] [place] [address], [facility] Eosinophils (Bld) [#/Vol] 0.0 10*3/uL Normal 0.0-0.5 [facility] Comment on above: Order Comment: Yes: Add to Previous draw if able Performed By: #### 5 0103 #### [facility] [address] [place] [address], [facility] Eosinophils/100 WBC (Bld) 0.0 % Normal 0.0-6.0 [facility] Comment on above: Order Comment: Yes: Add to Previous draw if able Performed By: #### 3 #### [facility] [address] [facility] [place] [address], [facility] Erythrocyte distribution width (RBC) [Ratio] 14.3 % Normal 11.5-15.0 [facility] Comment on above: Order Comment: Yes: Add to Previous draw if able Performed By: #### 5 3 #### [facility] [address] [facility] [place] [address], [facility] Hematocrit (Bld) [Volume fraction] 39.9 % Normal 36.0-45.0 [facility] Comment on above: Order Comment: Yes: Add to Previous draw if able Performed By: #### 5 3 #### [facility] [address] [place] [address], [facility] Hemoglobin (Bld) [Mass/Vol] 11.8 g/dL Low 12.0-15.0 [facility] Comment on above: Order Comment: Yes: Add to Previous draw if able Performed By: #### 5 0103 #### [facility] [address] [place] [address], [facility] IMMATURE GRANS 0.4 % Normal 0.0-1.0 [facility] Comment on above: Order Comment: Yes: Add to Previous draw if able Performed By: #### 0103 #### [facility] [address] [facility] [place] [address], [facility] Lymphocytes (Bld) [#/Vol] 0.3 10*3/uL Low 1.2-4.0 [facility] Comment on above: Order Comment: Yes: Add to Previous draw if able Performed By: #### 5 0103 #### [facility] [address] [facility] [place] [address], [facility] Lymphocytes/100 WBC (Bld) 2.6 % Low 20.0-45.0 [facility] Comment on above: Order Comment: Yes: Add to Previous draw if able Performed By: #### 5 0103 #### [facility] [address] [facility] [place] [address], [facility] MCH (RBC) [Entitic mass] 28.6 pg Normal 27.0-33.0 [facility] Comment on above: Order Comment: Yes: Add to Previous draw if able Performed By: #### 5 3 #### [facility] [address] [facility] [place] [address], [facility] MCHC (RBC) [Mass/Vol] 29.6 g/dL Low 32.0-35.0 [facility] Comment on above: Order Comment: Yes: Add to Previous draw if able Performed By: #### 5 0103 #### [facility] [address] [facility] [place] [address], [facility] MCV (RBC) [Entitic vol] 96.6 fL Normal 82.0-98.0 [facility] Comment on above: Order Comment: Yes: Add to Previous draw if able Performed By: #### 5 0103 #### [facility] [address] [place] [address], [facility] Monocytes (Bld) [#/Vol] 0.1 10*3/uL Normal 0.1-1.0 [facility] Comment on above: Order Comment: Yes: Add to Previous draw if able Performed By: #### 5 0103 #### [facility] [address] [place] [address], [place] MONOS 0.9 % Low 5.0-12.0 [facility] Comment on above: Order Comment: Yes: Add to Previous draw if able Performed By: #### 5 0103 #### [facility] [address] [place] [address], [facility] Neutrophils/100 WBC (Bld) 95.9 % High 40.0-72.0 [facility] Comment on above: Order Comment: Yes: Add to Previous draw if able Performed By: #### 5 0103 #### [facility] [address] [place] [id number], [facility] Nucleated RBC/100 WBC (Bld) [Ratio] 0 % Normal 0-0 [facility] Comment on above: Order Comment: Yes: Add to Previous draw if able Performed By: #### 5 0103 #### [facility] [address] [place] [address], [place] PLAT CNT 240 10*3/uL Normal 150-400 [facility] Comment on above: Order Comment: Yes: Add to Previous draw if able Performed By: #### 5 0103 #### [facility] [address] [place] [address], [place] RBC (Bld) [#/Vol] 4.13 10*6/uL Normal 3.80-5.00 [facility] Comment on above: Order Comment: Yes: Add to Previous draw if able Performed By: #### 5 102 #### [facility] [address] [place] [address], [facility] WBC (Bld) [#/Vol] 12.76 10*3/uL High 4.00-10.60 [facility] Comment on above: Order Comment: Yes: Add to Previous draw if able Performed By: #### 5 0103 #### [facility] [address] [place] [address], [facility] COMP METABOLIC PANELon 02-01 Albumin [Mass/Vol] 4.1 g/dL Normal 3.5-5.7 [facility] Comment on above: Order Comment: Yes: Add to Previous draw if able Performed By: #### 0 0121, [id number] #### [facility] [address] [place] [address], [facility] ALKALINE PHOSPH 70 IU/L Normal 34-104 [facility] Comment on above: Order Comment: Yes: Add to Previous draw if able Performed By: #### 0 0121, 01568 #### [facility] [address] [place] [id number], [place] ALT [Catalytic activity/Vol] 14 U/L Normal 7-52 [facility] Comment on above: Order Comment: Yes: Add to Previous draw if able Performed By: #### 0 0121, 87688 #### [facility] [address] [place] [address], [place] AST [Catalytic activity/Vol] 16 U/L Normal 13-39 [facility] Comment on above: Order Comment: Yes: Add to Previous draw if able Performed By: #### 0 0121, 03903 #### [facility] [address] [place] [address], [place] Bilirubin [Mass/Vol] 0.5 mg/dL Normal 0.3-1.0 [facility] Comment on above: Order Comment: Yes: Add to Previous draw if able Performed By: #### 0 0121, 28052 #### [facility] [address] [place] [address], [place] Calcium [Mass/Vol] 9.0 mg/dL Normal 8.6-10.3 [facility] Comment on above: Order Comment: Yes: Add to Previous draw if able Performed By: #### 0 0121, 72271 #### [facility] [address] [place] [address], [place] Chloride [Moles/Vol] 98 mmol/L Normal 98-107 [facility] Comment on above: Order Comment: Yes: Add to Previous draw if able Performed By: #### 0 0121, 60618 #### [facility] [address] [place] [address], [place] CO2 [Moles/Vol] 31 mmol/L Normal 21-31 [facility] Comment on above: Order Comment: Yes: Add to Previous draw if able Performed By: #### 0 0121, 91843 #### [facility] [address] [place] [address], [place] Creatinine [Mass/Vol] 0.67 mg/dL Normal 0.60-1.20 [facility] Comment on above: Order Comment: Yes: Add to Previous draw if able Performed By: #### 0 0121, 40858 #### [facility] [address] [place] [address], [place] GFR/1.73 sq M predicted among blacks MDRD (S/P/Bld) [Vol rate/Area] mL/min/{1.73_m2} Normal >60 [facility] Comment on above: Order Comment: Yes: Add to Previous draw if able Result Comment: Calc ulation may not be valid for patients over 70 years Performed By: #### 0 0121, 71082 #### [facility] [address] [place] [address], [place] GFR/1.73 sq M predicted among non-blacks MDRD (S/P/Bld) [Vol rate/Area] mL/min/{1.73_m2} Normal >60 [facility] Comment on above: Order Comment: Yes: Add to Previous draw if able Result Comment: Calc ulation may not be valid for patients over 70 years Performed By: #### 0 0121, 57039 #### [facility] [address] [place] [address], [place] Glucose [Mass/Vol] 245 mg/dL High 70-100 [facility] Comment on above: Order Comment: Yes: Add to Previous draw if able Performed By: #### 0 0121, 42648 #### [facility] [address] [place] [address], [place] Potassium [Moles/Vol] 4.2 mmol/L Normal 3.5-5.1 [facility] Comment on above: Order Comment: Yes: Add to Previous draw if able Performed By: #### 0 0121, 96782 #### [facility] [address] [place] [address], [place] Protein [Mass/Vol] 7.1 g/dL Normal 6.0-8.3 [facility] Comment on above: Order Comment: Yes: Add to Previous draw if able Performed By: #### 0 0121, 53682 #### [facility] [address] [place] [address], [place] Sodium [Moles/Vol] 136 mmol/L Normal 136-145 [facility] Comment on above: Order Comment: Yes: Add to Previous draw if able Performed By: #### 0 0121, 50585 #### [facility] [address] [place] [address], [place] Urea nitrogen [Mass/Vol] 13 mg/dL Normal 7-25 [facility] Comment on above: Order Comment: Yes: Add to Previous draw if able Performed By: #### 0 0121, 16271 #### [facility] [address] [place] [address], [place] POC GLUCOSE LABon 02-01-2019 Glucose [Mass/Vol] 225 mg/dL High 70-100 [facility] Comment on above: Performed By: #### 0 0121, 53817 #### [facility] [address] [facility] [place] [address], [place] Glucose [Mass/Vol] 230 mg/dL High 70-100 [facility] Comment on above: Performed By: #### 0 0121, 86161 #### [facility] [address] [facility] [place] [address], [place] Glucose [Mass/Vol] 237 mg/dL High 70-100 [facility] Comment on above: Performed By: #### 8 5499 #### [facility] [address] [facility] [place] [address], [place] Glucose [Mass/Vol] 247 mg/dL High 70-100 [facility] Comment on above: Performed By: #### 8 5499 #### [facility] [address] [facility] [place] [address], [facility] PORTABLE CHEST 1 VIEWon PORTABLE CHEST 1 VIEW [facility] Department of Radiology [address] [place] [address] [id number] ======== Patient Name: KAYLIE SALOMON : 1950 Sex: F Age: Race: White Pt. Location: [id number] Patient Status: I Ordered Date: 01/31/2019 11:45:00 PM Completed Date: 02/01/2019 12:32 AM Requesting Provider: DANAE BAE Attending Provider: ARACELI SANDHU Report Copy To: Signs & Symptoms: Acute Respiratory Distress History: Patient history not available Comments: R/O Infiltrates Exam: PORTABLE CHEST 1 VIEW ======== PORTABLE CHEST 1 VIEW 02/01/2019 12:32 AM EDT SIGNS AND SYMPTOMS: Acute Respiratory Distress TECHNOLOGIST COMMENTS: Acute Respiratory Distress, SOB. QUESTION FOR THE RADIOLOGIST: R/O Infiltrates PROTOCOL: AP(PA) view was obtained. COMPARISON: None Findings: Trachea is midline. Tortuous aorta. Cardiac silhouette slightly prominent. Slight prominence of pulmonary vasculature. Elevation of right hemidiaphragm. Left basilar atelectasis. No pleural effusion. No pneumothorax. Suspect nondisplaced right posterolateral third rib fracture. Impression: Left basilar atelectasis. Suspect nondisplaced right posterolateral third rib fracture. Approved by:Rosa Strange on 02/01/2019 12:35 AM EDT. I, Rachael Cardenas, have reviewed the images and report and concur with these findings. Electronically signed by:Rachael Cardenas. Transcribed by: [email or web address], User Resident: ROSA STRANGE Electronically Signed by: RACHAEL CARDENAS @ 02/01/2019 12:39 PM I personally read this/these film(s) with this resident Normal [facility] Comment on above: Order Comment: R/O I nfiltrates PROCALCITONINon 02-01-2019 PROCALCITONIN 0.07 ng/mL Normal 0.00-0.10 [facility] Comment on above: Order Comment: Yes: Add to Previous draw if able Result Comment: Susp ected Lower Respiratory Tract Infection: 0.1-0.25ng/mL- Low likelihood for bacterial infection;Antibiotics discouraged.* >0.25ng/mL- Increased likelihood bacterial infection;Antibiotics encouraged. Suspected Sepsis: Strongly consider initiating antibiotics in all unstable patients. 0.1-0.5ng/mL- Low likelihood for sepsis; Antibiotics discouraged.* >0.5ng/mL- Increased likelihood sepsis; Antibiotics encouraged. >2.0ng/mL- High risk of sepsis/septic shock; Antibiotics strongly encouraged. *Recommend retesting PCT within 6-12hours if clinically indicated and initial PCT<0.5ng/mL Performed By: #### 3 1488 #### [facility] [address] [facility]. [address] TROPONIN-Ion 02-01-2019 Troponin I.cardiac [Mass/Vol] 0.08 ng/mL High 0.00-0.04 [facility] Comment on above: Order Comment: No: D o not add to previous draw Result Comment: REFE RENCE RANGES: 0.00 - 0.04 ng/ml NORMAL 0.05 - 0.50 ng/ml INDETERMINATE > 0.50 ng/ml CONSISTENT WITH AN M.I. Performed By: #### 3 5200 #### [facility] [address] [facility]. [address] Troponin I.cardiac [Mass/Vol] 0.08 ng/mL High 0.00-0.04 [facility] Comment on above: Order Comment: No: D o not add to previous draw Result Comment: REFE RENCE RANGES: 0.00 - 0.04 ng/ml NORMAL 0.05 - 0.50 ng/ml INDETERMINATE > 0.50 ng/ml CONSISTENT WITH AN M.I. Performed By: #### 0 0121, [id number] #### [facility] [address] [facility]. [address] Cardiovascular Lab Reporton 01-16-[address] [facility] Patient Name: [facility] Kaylie Caballero MR #: [id number] Department of Physician: Ehab EltahawPepe diaz M.D. Division of Service Date: 01/16/2019 Cardiology Birthdate: 1950 Adult Cardiovascular Room #: [facility] [address] [place] [address] Cardiovascular Laboratory Report FINAL IMPRESSION: 1. Nonobstructive coronary arteries angiographically. 2. Normal global left ventricular systolic function by noninvasive imaging. RECOMMENDATIONS: 1. Aggressive cardiovascular risk factor modification. 2. Optimization with medical management; continue aspirin, high intensive statin therapy, and a beta amber for coronary plaque and mild luminal irregularities. 3. The patient can resume Eliquis for paroxysmal atrial fibrillation today. 4. Follow-up with Dr. Roque in Cardiology Clinic in the next three to four weeks. 5. Follow-up with the primary physician as scheduled. PROCEDURE: Ultrasound guided access of the right radial artery, bilateral selective coronary angiography. METHOD: After risks, benefits, and alternatives were explained, written informed consent was obtained. The patient was prepped and draped in usual sterile fashion over the right wrist and right groin. Using 1% lidocaine solution, local infiltration of anesthesia was achieved. Using a modified Seldinger technique, a micropuncture kit, under ultrasound guidance, access to the right radial artery was obtained. A 6-Estonian glide sheath was inserted without difficulty. Bilateral selective coronary angiography was performed using JR5 and JL5 catheters. After reviewing the images, it was elected to conclude the procedure. All catheters were removed. The radial sheath was removed with application of TR band per protocol to achieve optimal hemostasis. Overall the patient tolerated the procedure well. There were no overt complications. She was to be transferred to the holding area in stable condition. FINDINGS: Hemodynamics. AO 126/74. LEFT VENTRICULOGRAPHY: This was not performed. Ejection fraction is normal by noninvasive imaging. CORONARY ARTERIES: Left main coronary artery. This arises from the left coronary cusp. It bifurcates into the left anterior descending and left circumflex coronary artery and is free of significant stenosis. Left anterior descending coronary artery. This shows mild plaque proximally and 20% midvessel stenosis. It is otherwise angiographically normal throughout. Left circumflex coronary artery. This is nonobstructive. It gives rise to a large branch in first obtuse marginal and continues as a small caliber AV groove. Right coronary artery. This is a large dominant vessel giving rise to the posterior descending and posterolateral branches. It shows no significant stenosis. Right subclavian angiography. Due to difficulty advancing the Scott wire, angiography was performed which revealed significant tortuosity of the subclavian artery. This was traversed, using a soft angled Glidewire. INDICATIONS: Troponin elevation, type 2 [id number] myocardial infarction. Electronically Signed by: Shemar Hudson M.D. 01/29/2019 08:36 A Shemar Hudson M.D. Date Dict: 01/16/2019/01:01 Criselda/Shemar Hudson M.D. Date Trans: 01/16/2019 02:39 P/kiran [id number] Normal [facility] SWEAT CHLORIDEon 12-03-2018 SWEAT CHLORIDE 36 mmol/L Abnormal [facility] Comment on above: Order Comment: Right [id number] Left arm [id number] Result Comment: REFE RENCE VALUES <=29 mMol/L CYSTIC FIBROSIS IS UNLIKELY 30-59 mMol/L INTERMEDIATE >=60 mMol/L INDICATIVE OF CYSTIC FIBROSIS NOTE: SWEAT CHLORIDE VALUES LESS THAN 30 mMol/L HAVE BEEN DOCUMENTED IN GENETICALLY PROVEN CF PATIENTS. CLINICAL CORRELATION IS NECESSARY. Performed By: #### S WCH1 #### [facility] [address] [place] [address] WT COLLECTED 0.177 grams Normal [facility] Comment on above: Order Comment: Right [id number] Left arm [id number] Performed By: #### S WCH1 #### [facility] [address] [place] [address] SWEAT CHLORIDE 42 mmol/L Abnormal [facility] Comment on above: Order Comment: Doroteo keith fax results to Doctor Charles Landeros MD. Phone: [phone] Result Comment: REFE RENCE VALUES <=29 mMol/L CYSTIC FIBROSIS IS UNLIKELY 30-59 mMol/L INTERMEDIATE >=60 mMol/L INDICATIVE OF CYSTIC FIBROSIS NOTE: SWEAT CHLORIDE VALUES LESS THAN 30 mMol/L HAVE BEEN DOCUMENTED IN GENETICALLY PROVEN CF PATIENTS. CLINICAL CORRELATION IS NECESSARY. Performed By: #### S WCH1 #### [facility] [address] [place] [address] WT COLLECTED 0.215 grams Normal [facility] Comment on above: Order Comment: Doroteo keith fax results to Doctor Charles Landeros MD. Phone: [phone] Performed By: #### S WCH1 #### [facility] [address] [place] [address] Vital Signs Date Time Vital Sign Value Performing Clinician Faci litjoe 03-14-2023 12:45-0400 Body height 167.7 cm Reginald Aragon MD Work Phone: [facility] 03-14-2023 12:45-0400 Body temperature 97.7 [degF] Reginald Aragon MD Work Phone: [facility] 03-14-2023 12:45-0400 Body weight 119.93 kg Reginald Aragon MD Work Phone: [facility] 03-14-2023 12:45-0400 Diastolic blood pressure 63 mm[Hg] Reginald Aragon MD Work Phone: [facility] 03-14-2023 12:45-0400 Heart rate 68 /min Reginald Aragon MD Work Phone: [facility] 03-14-2023 12:45-0400 Respiratory rate 16 /min Reginald Aragon MD Work Phone: [facility] 03-14-2023 12:45-0400 SaO2% (BldA) [Mass fraction] 97 % Reginald Aragon MD Work Phone: [facility] 03-14-2023 12:45-0400 Systolic blood pressure 114 mm[Hg] Reginald Aragon MD Work Phone: [facility] 09-13-2022 12:57-0500 Body height 167.7 cm Samantha Benitez APRN.CNP Work Phone: [facility] 09-13-2022 12:57-0500 Body temperature 97.59 [degF] Samantha Benitez WAFER FABRICATION OPERATOR.SALES TECHNICIAN Work Phone: [facility] 09-13-2022 12:57-0500 Body weight 120.47 kg Samantha Benitez WAFER FABRICATION OPERATOR.SALES TECHNICIAN Work Phone: [facility] 09-13-2022 12:57-0500 Diastolic blood pressure 68 mm[Hg] Samantha Benitez WAFER FABRICATION OPERATOR.SALES TECHNICIAN Work Phone: [facility] 09-13-2022 12:57-0500 Heart rate 93 /min Samantha Benitez WAFER FABRICATION OPERATOR.SALES TECHNICIAN Work Phone: [facility] 09-13-2022 12:57-0500 Respiratory rate 16 /min Samantha Benitez WAFER FABRICATION OPERATOR.SALES TECHNICIAN Work Phone: [facility] 09-13-2022 12:57-0500 SaO2% (BldA) [Mass fraction] 100 % Samantha Benitez WAFER FABRICATION OPERATOR.SALES TECHNICIAN Work Phone: [facility] 09-13-2022 12:57-0500 Systolic blood pressure 120 mm[Hg] Samantha Benitez WAFER FABRICATION OPERATOR.SALES TECHNICIAN Work Phone: [facility] 03-14-2022 14:12-0400 Body height 167.7 cm Reginald Aragon MD Work Phone: [facility] 03-14-2022 14:12-0400 Body temperature 97.81 [degF] Reginald Aragon MD Work Phone: [facility] 03-14-2022 14:12-0400 Body weight 120.57 kg Reginald Aragon MD Work Phone: [facility] 03-14-2022 14:12-0400 Diastolic blood pressure 76 mm[Hg] Reginald Aragon MD Work Phone: [facility] 03-14-2022 14:12-0400 Heart rate 98 /min Reginald Aragon MD Work Phone: [facility] 03-14-2022 14:12-0400 Respiratory rate 16 /min Reginald Aragon MD Work Phone: [facility] 03-14-2022 14:12-0400 SaO2% (BldA) [Mass fraction] 95 % Reginald Aragon MD Work Phone: [facility] 03-14-2022 14:12-0400 Systolic blood pressure 114 mm[Hg] Reginald Aragon MD Work Phone: [facility] Encounters Encounter Date Encounter Type Care Provider Facility Start: 03-04-2025 ambulatory [facility] Facility: [facility] [place] Start: 10-05-2024 ambulatory [facility] Facility: [facility] [place] Start: 04-16-2024 ambulatory Idnerjit Ly acility:[facility] Start: 03-30-2024 End: 03-30-2024 ambulatory [facility] Con Facility:[facility] [place] Start: 03-05-2024 End: 03-05-2024 ambulatory [facility] Con Facility:[facility] [place] Start: 02-11-2024 End: 02-11-2024 ambulatory JENSEN CARTER Not Available Start: 02-11-2024 End: 02-11-2024 ambulatory [facility] Start: 01-09-2024 End: 01-09-2024 ambulatory [place] L Con Facility:[facility] [place] Start: 01-07-2024 End: 01-08-2024 ambulatory [facility] Start: 01-06-2024 End: 01-29-2024 ambulatory [place] L CON [facility] Start: 12-11-2023 End: 12-11-2023 ambulatory [facility] Start: 11-27-2023 End: 12-30-2023 ambulatory [place] [facility] Start: 10-31-2023 ambulatory [facility] Start: 10-31-2023 End: 10-31-2023 ambulatory [facility] Start: 10-24-2023 End: 10-25-2023 ambulatory [facility] Start: 09-17-2023 End: 09-17-2023 ambulatory BRIAN JEFFERY [facility] Start: 09-12-2023 End: 09-12-2023 ambulatory REGINALD ARAGON Facility:[facility] Start: 09-12-2023 Telephone encounter Carin Salgado Hematology/Oncology Comment on above: Orders Start: 08-29-2023 End: 08-29-2023 ambulatory MELISSA [facility] Start: 08-19-2023 End: 08-19-2023 ambulatory [facility] Start: 06-18-2023 End: 06-18-2023 ambulatory [facility] Start: 06-07-2023 Telephone encounter Nga Zhao RN Work Phone: Hematology/Oncology Comment on above: Orders Start: 05-21-2023 End: 05-21-2023 ambulatory ELIF [facility] Start: 04-04-2023 Telephone encounter Angelina tirado RN Work Phone: Hematology/Oncology Comment on above: Results Start: 03-14-2023 End: 03-14-2023 ambulatory REGINALD ARAGON Facility:[facility] Start: 03-14-2023 End: 03-14-2023 ambulatory Reginald Aragon MD Work Phone: Hematology/Oncology Comment on above: Malignant neoplasm o f overlapping sites of right breast in female, estrogen receptor negative (HCC) (Primary Dx); History of iron deficiency Start: 03-14-2023 End: 03-14-2023 Patient encounter procedure Reginald Aragon MD Work Phone: [facility] Start: 10-11-2022 Refill Reginald Aragon MD Work Phone: Hematology/Oncology Comment on above: Refill Request Start: 09-13-2022 End: 09-13-2022 ambulatory Samantha Benitez APRN.CNP Work Phone: Hematology/Oncology Comment on above: Malignant neoplasm o f overlapping sites of right breast in female, estrogen receptor negative (HCC) (Primary Dx); Iron deficiency anemia secondary to inadequate dietary iron intake Start: 09-13-2022 End: 09-13-2022 Patient encounter procedure Samantha Benitez APRN.SALES TECHNICIAN Work Phone: [facility] Start: 08-14-2022 End: 08-15-[address] CHARLES LANDEROS Facility:[facility] Start: 07-23-2022 End: 07-23-2022 ambulatory MITCHEL WARREN Facility: Start: 07-16-2022 Refill Samantha Benitez APRN.SALES TECHNICIAN Work Phone: Hematology/Oncology Comment on above: Refill Request Start: 06-14-2022 End: 06-15-[address] REGINALD ARAGON Facility: Start: 03-14-2022 End: 03-14-2022 ambulatory Reginald Aragon MD Work Phone: Hematology/Oncology Comment on above: Malignant neoplasm o f overlapping sites of right breast in female, estrogen receptor negative (HCC) (Primary Dx); Other iron deficiency anemia Start: 03-14-2022 End: 03-14-2022 Patient encounter procedure Reginald Aragon MD Work Phone: [facility] Start: 10-19-[address] CHARLES LANDEROS Facilit y:[facility] Start: 02-01-2019 End: 02-02-2019 Evaluation and management of inpatient ARACELI SANDHU Facility:[facility] [place] Start: 01-16-2019 End: 01-17-2019 Patient encounter procedure SHEMAR HUDSON Facility:[facility] Start: 12-03-2018 Patient encounter procedure Facility:[facility] Procedures Date Procedure Procedure Detail Performing Clinician Start: 04-13-2022 Lipid 1996 panel - S migdalia or Plasma Carin Ramos RN Start: 05-27-2020 Adult depression screening assessment Reginald Aragon MD Work Phone: Plan of Treatment Date Care Activity Detail Author Start: 04-13-2027 Lipid panel Lipid Screening [facility] Start: 04-13-2027 LIPID SCREEN LIPID SCREEN [facility] Start: 12-15-2026 LIPID SCREEN LIPID SCREEN [facility] Start: 09-12-2026 Diabetes Screening Diabetes Screenin g [facility] Start: 03-14-2026 DIABETES SCREEN DIABETES SCREEN [facility] Start: 09-13-2025 DIABETES SCREEN DIABETES SCREEN [facility] Start: 03-14-2025 DIABETES SCREEN DIABETES SCREEN [facility] Start: 08-17-2024 DIABETES SCREEN DIABETES SCREEN [facility] Start: 05-31-2023 Influenza vaccination INFLUENZA (#1) [facility] Start: 03-14-2023 End: 05-14-2023 Cancer Ag 27-29 [Units/volume] in Serum or Plasma CA 27.29 BLOOD Lab Routine Malignant neoplasm of overlapping sites of right breast in female, estrogen receptor negative (HCC) Iron deficiency anemia secondary to inadequate dietary iron intake Expected: 03/14/2023, Expires: 05/14/2023 [facility] Work Phone: Comment on above: Expected: 03/14/2023 , Expires: 05/14/2023 Start: 03-14-2023 End: 05-14-2023 CBC W Auto Differential panel - Blood CBC + DIFF Lab Routine Malignant neoplasm of overlapping sites of right breast in female, estrogen receptor negative (HCC) Iron deficiency anemia secondary to inadequate dietary iron intake Expected: 03/14/2023, Expires: 05/14/2023 [facility] Work Phone: Comment on above: Expected: 03/14/2023 , Expires: 05/14/2023 Start: 03-14-2023 End: 05-14-2023 Comprehensive metabolic 2000 panel - Serum or Plasma COMP METABOLIC PANEL Lab Routine Malignant neoplasm of overlapping sites of right breast in female, estrogen receptor negative (HCC) Iron deficiency anemia secondary to inadequate dietary iron intake Expected: 03/14/2023, Expires: 05/14/2023 [facility] Work Phone: Comment on above: Expected: 03/14/2023 , Expires: 05/14/2023 Start: 09-30-2022 ADVANCE DIRECTIVE DISCUSSION ADVANCE DIRECTIVE DISCUSSION [facility] Start: 09-30-2022 DEPRESSION ASSESSMENT DEPRESSION ASS ESSMENT [facility] Start: 09-13-2022 End: 11-13-2022 Cancer Ag 27-29 [Units/volume] in Serum or Plasma [facility] Work Phone: Comment on above: Expected: 09/13/2022 , Expires: 11/13/2022 Start: 07-03-2022 COVID-19 VACCINE (5 - Booster for Moderna series) COVID-19 VACCINE (5 - Booster for Moderna series) [facility] Start: 07-03-2022 COVID-19 VACCINE (5 - Moderna series) COVID-19 VACCINE (5 - Moderna series) [facility] Start: 05-31-2022 Influenza vaccination C [facility] Start: 09-30-2021 ADVANCE DIRECTIVE DISCUSSION ADVANCE DIRECTIVE DISCUSSION [facility] Start: 09-30-2021 DEPRESSION ASSESSMENT DEPRESSION ASS ESSMENT [facility] Start: 05-27-2021 Adult depression screening assessment DEPRESSION SCREENING [facility] Start: 12-04-2015 SHINGRIX VACCINE (1 of 2) SHINGRIX VACCINE (1 of 2) [facility] Start: 12-04-2015 SHINGRIX VACCINE (2 of 3) SHINGRIX VACCINE (2 of 3) [facility] Start: 01-04-2013 BONE DENSITY BONE DENSITY [facility] Start: 01-04-2013 Screening for osteoporosis Bone Density Screening [facility] Start: 2008 RSV Vaccine (1 - 1-d ose 60+ series) RSV Vaccine (1 - 1-dose 60+ series) [facility] Start: 01-04-1993 COLOGUARD (FIT-DNA) COLOGUARD (FIT-D NA) [facility] Start: 01-04-1993 Colonoscopy COLONOSCOPY [facility] Start: 01-04-1993 COLORECTAL CANCER SCREENING COLORECTAL CANCER SCREENING [facility] Start: 01-04-[address] COLONOGRAPHY [facility] Start: 01-04-1993 FECAL OCCULT BLOOD FECAL OCCULT BLOO D [facility] Start: 01-04-1993 Screening for malign ant neoplasm of colon [facility] Start: 01-04-1993 SIGMOIDOSCOPY SIGMOIDOSCOPY [facility] Start: 1988 Mammography MAMMOGRAM [facility] Start: 01-04-1967 Urine microalbumin profile [facility] Start: 01-04-1966 HEPATITIS C SCREENING HEPATITIS C [facility] Start: 01-04-1966 Hepatitis C screening Hepatitis C [facility] Start: 01-04-1953 COVID-19 VACCINE (#1) COVID-19 VACCI NE (#1) [facility] Start: 1948 COVID-19 VACCINE (#1) COVID-19 VACCI NE (#1) [facility] End: 04-13-2023 Diagnostic mammography computer-aided detcj uni [facility] Radiology Routine Malignant neoplasm of overlapping sites of right breast in female, estrogen receptor negative (HCC) 1 Occurrences starting 03/14/2022 until 04/13/2023 [facility] Work Phone: Comment on above: 1 Occurrences starti ng 03/14/2022 until 04/13/2023 End: 07-06-2024 [facility] LEFT [facility] LEFT Radiology Routine Malignant neoplasm of overlapping sites of right breast in female, estrogen receptor negative (HCC) 1 Occurrences starting 06/07/2023 until 07/06/2024 [facility] Work Phone: Comment on above: 1 Occurrences starti ng 06/07/2023 until 07/06/2024 [facility] Immunizations Immunization Date Immunization Notes Care Provider [facility] 07-21-2019 influenza, high dose seasonal, preservative-free Reginald Aragon MD Work Phone: [facility] 07-21-2019 pneumococcal polysaccharide vaccine, 23 valent Reginald Aragon MD Work Phone: [facility] 06-26-2018 influenza, high dose seasonal, preservative-free Reginald Aragon MD Work Phone: [facility] 06-26-2018 pneumococcal conjuga te vaccine, 13 valent Reginald Aragon MD Work Phone: [facility] 07-17-2017 influenza, high dose seasonal, preservative-free Reginald Aragon MD Work Phone: [facility] 07-01-2017 influenza, injectabl e, quadrivalent, preservative free Reginald Aragon MD Work Phone: [facility] 10-09-2015 zoster vaccine, live Reginald roche MD Work Phone: [facility] 07-11-2015 influenza, seasonal, injectable, preservative free Reginald Aragon MD Work Phone: [facility] 07-11-2015 pneumococcal conjuga te vaccine, 13 valent Reginald Aragon MD Work Phone: [facility] Payers Date Payer Category Payer Self-pay 2022 [place] [id number] 2022-Present [phone] [address] [place] [address] Medicaid [id number] 2018 Medicaid MEDICAID [facility] MEDICAID [id number] 2018-Present [phone] [address] [place] [address] Medicaid [id number] 1988 Medicare MEDICARE MEDICAR E A AND B [id number] 1988-Present [phone] [place] [address] Medicare [id number] 1988 Medicare [id number] 1959 Medicaid [id number] 1959 Medicare [id number] 1959 Self-pay [id number] 1948 Unknown [id number] 1948 Unknown [id number] 1948 Unknown [id number] 1948 Unknown [id number] 1948 Unknown [id number] 1948 Unknown [id number] 1948 Unknown [id number] [id number] 1948 Unknown [id number] [id number] 1948 Unknown [id number] [id number] 1948 Unknown [id number] [id number] 1948 Unknown [id number] [id number] 1948 Unknown [id number] 1948 Unknown [id number] [id number] 1948 Unknown [id number] 1948 Unknown [id number] 1948 Unknown [id number] Unknown [id number] Social History Date Type Detail Facility Start: 03-18-2019 End: 03-14-2023 Tobacco smoking status NHIS Never smoked tobacco [facility] Start: 03-18-2019 End: 03-14-2023 Tobacco use and exposure Smokeless tobacco non-user [facility] Start: 03-14-2022 End: 03-14-2023 Alcohol intake Lifetime non-drinker (finding) [facility] Start: 01-21-2020 History SDOH Alcohol Frequency 1 [facility] Start: 1950 Sex Assigned At Not on file [facility] Start: 03-04-2022 End: 03-14-2022 Exposure to SARS-CoV-2 (event) Not sure [facility] Start: 01-21-2020 End: 03-14-2023 History of Social function [facility] Start: 01-21-2020 End: 03-14-2023 Alcohol Use Disorder Identification Test - Consumption [AUDIT-C] [facility] How often to you hav e a drink containing alcohol? Never [facility] Average Number of Drinks Not on file [facility] NEGATED: Highlighted rowStart: WILL History of tobacco use Passive smoker [facility] Clinical Notes 03-14-2022 to 02-25-2024 Telephone Encounter - Carin Ramos RN - 09/12/2023 2:58 PM ESTTelephone Encounter - Carin Ramos RN - 09/12/2023 1:38 PM ESTTelephone Encounter - Carin Ramos RN - 06/10/2023 12:58 PM EDT Note Date & Type Note Facility 02-25-2024 Note Orders to repeat BMP Will hold aldactone and losartan to 50 mg daily and decrease lasix to 40 mg daily from bid Elif [facility] [place] [facility] Available 7a-5pm via [employer] Chat Pager [phone] [facility] 02-11-2024 Note [place] Electrophysiology Consult Note Reason for visit: A-fib, HFpEF 02/11/24 Patient here for follow up prior to afib ablation, scheduled for 02/13/2024. Denies chest pain, SOB, palpitations, lightheadedness.syncope. She states she does not want to go forward with procedure. HPI: aKylie Salomon is a 74 y.o. year old with past medical history of Paroxysmal A-fib RVR, asthma, HFpEF as BNP was elevated in 2019 and was then treated with Lasix on discharge and HFpEF is induced by tachyarrhythmia it appears, nonobstructive CAD, GERD, hypertension, MRDD, depression, breast Ca with radiation theray 2018 or 2019, no prior diagnosis of AF prior to radiation. Patient accompanied by caregiver Patient referred to EP clinic for A-fib. She was found to be in A-fib 04/2023 per ECG and metoprolol was increased. She appears to be asymptomatic. she does have episodes of heart failure exacerbation and was previously seen by the heart failure team as well as Pietro SEPULVEDA. Melissa Torres CNP increased lasix to 40mg in the AM and 20mg in the PM at last visit on 08/29/2023. She has responded well to increase in lasix. She denies chest pain, palpitations, and lightheadedness. SOB and LE edema are much improved. She denies any complaints of chest pain, shortness of breath, BOSCH, LE edema. But on exam it is obvious that she gets short of breath at the end of her sentences. it appears that she has never been cardioverted before ECG AF hr 104bpm PMH: Past Medical History: Diagnosis Date Asthma Atrial fibrillation (CMS/HCC) Breast cancer (CMS/HCC) RADIATION 2017 Coronary artery disease Depression Diabetes (CMS/HCC) GERD (gastroesophageal reflux disease) Hypertension Myocardial infarct (CMS/HCC) Obesity BMI 40.45 PSH: Past Surgical History: Procedure Laterality Date CARDIAC CATHETERIZATION 01/16/2019 SH: Social Determinants of Health Tobacco Use: Low Risk (02/07/2024) Patient History Smoking Tobacco Use: Never Smokeless Tobacco Use: Never Passive Exposure: Not on file Alcohol Use: Not on file Financial Resource Strain: Not on file Food Insecurity: Not on file Transportation Needs: Not on file Physical Activity: Not on file Stress: Not on file Social Connections: Not on file Intimate Partner Violence: Unknown (11/21/2023) [place] Safety & Environment Fear of Current or Ex-Partner: Not on file Emotionally Abused: Not on file Physically Abused: Not on file Sexually Abused: Not on file Physically or Sexually Abused: Not on file Depression: Not on file Housing Stability: Not on file Utilities: Not on file Allergies: Allergies Allergen Reactions Peanut Anaphylaxis Bacitracin Bromelains Clarithromycin Other and Unknown Conjugated Estrogens Unknown Estrogens, Conjugated Neomycin Sulfate Paclitaxel Other Numbness,tingling and elevated blood pressure Pineapple Polymyxin B Shrimp All seafood Sulfa (Sulfonamide Antibiotics) Other and Unknown Thovseiu-Wqckyildrt-Coifwqjii Rash Penicillins Rash Weight: 118kg Visit Vitals BP 103/68 (BP Location: Right wrist, Patient Position: Sitting) Pulse 75 Ht 1.727 m (5' 8 ) Wt 118 kg (260 lb) SpO2 99% BMI 39.53 kg/m??? OB Status Postmenopausal Smoking Status Never BSA 2.38 m??? Meds: Current Outpatient Medications on File Prior to Visit Medication Sig Dispense Refill albuterol 90 mcg/actuation inhaler Inhale 2 puffs in the morning, at noon, and at bedtime. apixaban (Eliquis) 5 mg tablet Take 1 tablet by mouth in the morning and at bedtime. atorvastatin (Lipitor) 40 mg tablet Take 1 tablet by mouth at bedtime. benralizumab (Fasenra Pen) 30 mg/mL auto-injector EVERY 8 WEEKS LAST DOSE 01/03/24 Breo Ellipta 100-25 mcg/dose inhaler Use 1 puff in the mouth or throat 1 (one) time each day. dapagliflozin propanediol (Farxiga) 10 mg Take 1 tablet (10 mg) by mouth once daily as directed. 30 tablet 11 fluticasone (Flonase) 50 mcg/actuation nasal spray 1 (one) time each day at the same time. furosemide (Lasix) 20 mg tablet Take 2 tablets (40 mg) by mouth in the morning. (Patient taking differently: Take 40 mg by mouth in the morning and at bedtime.) 30 tablet 11 loratadine (Claritin) 10 mg tablet Take 1 tablet by mouth in the morning. losartan (Cozaar) 100 mg tablet Take 1 tablet by mouth in the morning. metFORMIN (Glucophage) 500 mg tablet Take 500 mg by mouth in the morning and at bedtime. metoprolol tartrate (Lopressor) 100 mg tablet Take 1 tablet (100 mg) by mouth in the morning and at bedtime. 60 tablet 11 montelukast (Singulair) 10 mg tablet Take 1 tablet by mouth in the morning. pantoprazole (ProtoNix) 40 mg EC tablet Take 1 tablet by mouth in the morning. amiodarone (Pacerone) 200 mg tablet TAKE 1 TABLET(200 MG) BY MOUTH IN THE MORNING (Patient not taking: Reported on 02/07/2024) 90 tablet 3 sertraline (Zoloft) 50 mg tablet Take 1 tablet by mouth at bedtime. spiron (more content not included)... [facility] 12-13-2023 Note Placed orders for A fib/flutter EPS/ablation per Dr Gil's recommendation Elif Espinoza [facility] Cardiology Available 7a-5pm via [employer] Chat Pager [phone] [facility] 12-11-2023 Note [facility]- II- currently euvolemic without exacerbation Continue GDMT- lipitor, farxiga, beta amber, aldactone Diuretic therapy- lasix Monitor daily weights, I&O, fluid restriction 1.5-2L/day, renal function and electrolytes- [facility] 12-11-2023 Note Hypertension is well controlled. Continue all meds- metoprolol, aldactone, losartan [facility] 12-11-2023 Note [facility] CARDIOLOGY PROGR ESS NOTE HPI: Kaylie Salomon is a 73 y.o. female here for A fib s/p CV HPI past medical history of Paroxysmal A-fib RVR, asthma, HFpEF as BNP was elevated in 2019 and was then treated with Lasix on discharge and HFpEF is induced by tachyarrhythmia it appears, nonobstructive CAD, GERD, hypertension, MRDD, depression, breast Ca with radiation theray 2017 or 2018, no prior diagnosis of AF prior to radiation. Patient here for follow up cardioversion on 10/31/[address] Gil. She denies chest pain, SOB, palpitations, lightheadedness/syncope, and bleeding on Eliquis. Denied chest pain, SOB, Orthopnea, palpitations. Review of Systems Constitutional: Positive for malaise/fatigue. All other systems reviewed and are negative. Visit Vitals BP 126/84 (BP Location: Right arm, Patient Position: Sitting) Pulse 72 Ht 1.727 m (5' 8 ) Wt 121 kg (266 lb) SpO2 98% BMI 40.45 kg/m??? OB Status Postmenopausal Smoking Status Never BSA 2.41 m??? Allergies Allergen Reactions Peanut Anaphylaxis Bacitracin Bromelains Clarithromycin Other and Unknown Conjugated Estrogens Unknown Estrogens, Conjugated Neomycin Sulfate Paclitaxel Other Numbness,tingling and elevated blood pressure Pineapple Polymyxin B Shrimp All seafood Sulfa (Sulfonamide Antibiotics) Other and Unknown Bgotfoag-Bnhvopvkth-Xjlztnfyj Rash Penicillins Rash Medications: Current Outpatient Medications on File Prior to Visit Medication Sig Dispense Refill albuterol 90 mcg/actuation inhaler Inhale 2 puffs in the morning, at noon, and at bedtime. amiodarone (Pacerone) 200 mg tablet Take 1 tablet (200 mg) by mouth in the morning. 30 tablet 0 apixaban (Eliquis) 5 mg tablet Take 1 tablet by mouth in the morning and at bedtime. ARIPiprazole (Abilify) 5 mg tablet Take 10 mg by mouth in the morning. atorvastatin (Lipitor) 40 mg tablet Take 1 tablet by mouth at bedtime. benralizumab (Fasenra Pen) 30 mg/mL auto-injector Breo Ellipta 100-25 mcg/dose inhaler Use 1 puff in the mouth or throat 1 (one) time each day. dapagliflozin propanediol (Farxiga) 10 mg Take 1 tablet (10 mg) by mouth once daily as directed. 30 tablet 11 fluticasone (Flonase) 50 mcg/actuation nasal spray 1 (one) time each day at the same time. fluticasone propion-salmeteroL (Advair Diskus) 500-50 mcg/dose diskus inhaler Inhale 1 puff in the morning and at bedtime. furosemide (Lasix) 20 mg tablet Take 2 tablets (40 mg) by mouth in the morning. 30 tablet 11 ipratropium-albuteroL (Duo-Neb) 0.5-2.5 mg/3 mL nebulizer solution every 6 (six) hours. loratadine (Claritin) 10 mg tablet Take 1 tablet by mouth in the morning. losartan (Cozaar) 100 mg tablet Take 1 tablet by mouth in the morning. metFORMIN (Glucophage) 500 mg tablet Take 500 mg by mouth in the morning and at bedtime. metoprolol tartrate (Lopressor) 100 mg tablet Take 1 tablet (100 mg) by mouth in the morning and at bedtime. 60 tablet 11 montelukast (Singulair) 10 mg tablet Take 1 tablet by mouth in the morning. pantoprazole (ProtoNix) 40 mg EC tablet Take 1 tablet by mouth in the morning. prochlorperazine (Compazine) 10 mg tablet Take 10 mg by mouth every 6 (six) hours if needed for nausea or vomiting. sertraline (Zoloft) 50 mg tablet Take 1 tablet by mouth at bedtime. spironolactone (Aldactone) 25 mg tablet Take 1 tablet (25 mg) by mouth once daily as directed. 90 tablet 3 tiotropium (Spiriva Respimat) 1.25 mcg/actuation inhaler INHALE 2 PUFFS BY MOUTH EVERY DAY No current facility-administered medications on file prior to visit. Physical Exam: Constitutional: Appearance: Normal appearance. Without apparent distress, obese HENT: Head: Normocephalic and atraumatic. Nose: Nose normal. Mouth/Throat: Mouth: Mucous membranes are moist. Eyes: Extraocular Movements: Extraocular movements intact. Conjunctiva/sclera: Conjunctivae normal. Neck: Vascular: No JVD. Cardiovascular: Rate and Rhythm: Irregular rate/rate controlled and Irregular rhythm. Pulses: Dorsalis pedis pulses are 3 on the right side and 3on the left side. Posterior tibial pulses are 3 on the right side and 3 on the left side. Heart sounds: Normal heart sounds, S1 normal and S2 normal. Pulmonary: Effort: Pulmonary effort is normal. Breath sounds: Normal breath sounds. Abdominal: General: Bowel sounds are normal. Palpations: Abdomen is soft. Musculoskeletal: General: Normal range of motion. Cervical back: Normal range of motion. Right lower leg: No edema. Left lower leg: No edema. Skin: General: Skin is warm and dry. Capillary Refill: Capillary refill takes less than 2 seconds. Neurological: General: No focal deficit present. Mental Status: She is alert and oriented to person, place, and time. Psychiatric: Mood and Affect: Mood normal. Behavior: Behavior normal. Thought Content: Thought content normal. Judgment: Judgment normal. Labs: 10/01 (more content not included)... [facility] 12-11-2023 Note Patient here for fol low up cardioversion on 10/31/[address] Gil. She denies chest pain, SOB, palpitations, lightheadedness/syncope, and bleeding on Eliquis. Review of Systems Constitutional: Positive for malaise/fatigue. All other systems reviewed and are negative. [facility] 12-11-2023 Note ECG today- a flutter - rate controlled Remains on eliquis anticoagulation, amiodarone for rhythm control and metoprolol Will D/W Dr Gil regarding further intervention with possible EPS/Ablation [facility] 10-31-2023 Note Please forward these results to her PCP to address her thyroid function, mag is normal Thanks [facility] 10-31-2023 Note DIRECT CARDIOVERSION PROCEDURE NOTE Date: 10/31/2023. Type of procedure: DC Cardioversion. Performed by: Brian Gil MD Informed consent: Signed by patient. Indication: 73 year old with past medical history of Paroxysmal A-fib RVR, asthma, HFpEF, nonobstructive CAD, GERD, hypertension, MRDD, depression, breast Ca with radiation theray 2017 or 2018, no prior diagnosis of AF prior to radiation. She was found to be in A-fib 04/2023 per ECG and metoprolol was increased. She has never been cardioverted and so was placed on Amiodarone and on DOAC and brought for DCCV. She is currently on Eliquis which she seems to tolerate without any issues. She had been on uninterrupted anticoagulation for minimum of 6 weeks. Hence, BARBY was deferred. Preparation and technique: Patient was brought into the procedure room. After an informed consent was obtained following a discussion with the patient where I explained the risk and benefit of the procedure that is not limited to skin jameson, fluid in the lungs, heart attack, stroke, or even , though that is very rare. Patches were placed in anteroposterior direction and once patient was made comfortable with Versed 2mg and Fentanyl 25mcg. Following sedation, the patient underwent synchronized cardioversion using 360J which converted to sinus rhythm. Post procedure, the patient was stable. No complications noted. Plan: Continue anticoagulation and consider ablation. Brian Gil MD Cardiac Electrophysiology [facility] 10-31-2023 Note Patient: Kaylie Salomon Procedure Information Date/Time: 10/31/23 0800 Procedure: Cardioversion - oct Location: [facility] [place] [facility] HOLDING ROOM / [facility] (Cath) Providers: Brian Gil MD Clinical information reviewed: Allergies Meds OB Status Physical Exam Airway Mallampati: II TM distance: >3 FB Neck ROM: full Cardiovascular Dental Pulmonary Abdominal Anesthesia Plan ASA 2 Anesthetic plan and risks discussed with patient and legal guardian. Use of blood products discussed with patient and legal guardian who. Additional Equipment Requests [facility] 09-17-2023 Note Patient here for 1 m o follow up HFpEF, PAF, hypertension, and CAD. Melissa Torres CNP increased lasix to 40mg in the AM and 20mg in the PM at last visit on 08/29/2023. She has responded well to increase in lasix. She denies chest pain, palpitations, and lightheadedness. SOB and LE edema are much improved. Review of Systems Constitutional: Positive for malaise/fatigue and weight loss (10# since 08/29/2023). Cardiovascular: Positive for dyspnea on exertion (improving). All other systems reviewed and are negative. [facility] 09-17-2023 Note [facility] Consult Note Reason for visit: A-fib, HFpEF HPI: Kaylie Salomon is a 73 y.o. year old with past medical history of Paroxysmal A-fib RVR, asthma, HFpEF as BNP was elevated in 2019 and was then treated with Lasix on discharge and HFpEF is induced by tachyarrhythmia it appears, nonobstructive CAD, GERD, hypertension, MRDD, depression, breast Ca with radiation theray 2017 or 2018, no prior diagnosis of AF prior to radiation. Patient accompanied by caregiver Patient referred to EP clinic for A-fib. She was found to be in A-fib 04/2023 per ECG and metoprolol was increased. She appears to be asymptomatic. she does have episodes of heart failure exacerbation and was previously seen by the heart failure team as well as Pietro SEPULVEDA. Melissa Torres CNP increased lasix to 40mg in the AM and 20mg in the PM at last visit on 08/29/2023. She has responded well to increase in lasix. She denies chest pain, palpitations, and lightheadedness. SOB and LE edema are much improved. She denies any complaints of chest pain, shortness of breath, BOSCH, LE edema. But on exam it is obvious that she gets short of breath at the end of her sentences. it appears that she has never been cardioverted before ECG AF hr 104bpm PMH: Past Medical History: Diagnosis Date Atrial fibrillation (CMS/HCC) Diabetes (CMS/HCC) GERD (gastroesophageal reflux disease) Hypertension Myocardial infarct (CMS/HCC) PSH: Past Surgical History: Procedure Laterality Date CARDIAC CATHETERIZATION 01/16/2019 SH: Social Determinants of Health Tobacco Use: Low Risk (05/21/2023) Patient History Smoking Tobacco Use: Never Smokeless Tobacco Use: Never Passive Exposure: Not on file Alcohol Use: Not on file Financial Resource Strain: Not on file Food Insecurity: Not on file Transportation Needs: Not on file Physical Activity: Not on file Stress: Not on file Social Connections: Not on file Intimate Partner Violence: Not on file Depression: Not on file Housing Stability: Not on file Allergies: Allergies Allergen Reactions Peanut Anaphylaxis Bacitracin Bromelains Clarithromycin Other and Unknown Conjugated Estrogens Unknown Estrogens, Conjugated Neomycin Sulfate Paclitaxel Other Numbness,tingling and elevated blood pressure Pineapple Polymyxin B Shrimp All seafood Sulfa (Sulfonamide Antibiotics) Other and Unknown Vgkupyuk-Baalrmtluc-Fpeevetty Rash Penicillins Rash Weight: 122kg Visit Vitals BP 136/83 (BP Location: Right wrist, Patient Position: Sitting) Pulse 96 Ht 1.727 m (5' 8 ) Wt 122 kg (269 lb) SpO2 97% BMI 40.90 kg/m??? Smoking Status Never BSA 2.42 m??? Meds: Current Outpatient Medications on File Prior to Visit Medication Sig Dispense Refill albuterol 90 mcg/actuation inhaler Inhale 2 puffs in the morning, at noon, and at bedtime. apixaban (Eliquis) 5 mg tablet Take 1 tablet by mouth in the morning and at bedtime. ARIPiprazole (Abilify) 5 mg tablet Take 15 mg by mouth in the morning. atorvastatin (Lipitor) 40 mg tablet Take 1 tablet by mouth at bedtime. benralizumab (Fasenra Pen) 30 mg/mL auto-injector Breo Ellipta 100-25 mcg/dose inhaler Use 1 puff in the mouth or throat 1 (one) time each day. dapagliflozin propanediol (Farxiga) 10 mg Take 1 tablet (10 mg) by mouth once daily as directed. 30 tablet 11 fluticasone (Flonase) 50 mcg/actuation nasal spray 1 (one) time each day at the same time. furosemide (Lasix) 20 mg tablet Take 2 tablets (40 mg) by mouth in the morning. (Patient taking differently: Take 60 mg by mouth in the morning. Takes 40mg in the AM and takes 20mg in the PM) 30 tablet 11 ipratropium-albuteroL (Duo-Neb) 0.5-2.5 mg/3 mL nebulizer solution every 6 (six) hours. loratadine (Claritin) 10 mg tablet Take 1 tablet by mouth in the morning. losartan (Cozaar) 100 mg tablet Take 1 tablet by mouth in the morning. metFORMIN (Glucophage) 500 mg tablet Take 500 mg by mouth in the morning and at bedtime. metoprolol tartrate (Lopressor) 100 mg tablet Take 1 tablet (100 mg) by mouth in the morning and at bedtime. 60 tablet 11 montelukast (Singulair) 10 mg tablet Take 1 tablet by mouth in the morning. pantoprazole (ProtoNix) 40 mg EC tablet Take 1 tablet by mouth in the morning. sertraline (Zoloft) 50 mg tablet Take 1 tablet by mouth at bedtime. spironolactone (Aldactone) 25 mg tablet Take 1 tablet (25 mg) by mouth once daily as directed. 90 tablet 3 fluticasone propion-salmeteroL (Advair Diskus) 500-50 mcg/dose diskus inhaler Inhale 1 puff in the morning and at bedtime. prochlorperazine (Compazine) 10 mg tablet Take 10 mg by mouth every 6 (six) hours if needed for nausea or vomiting. tiotropium (Spiriva Respimat) 1.25 mcg/actuation inhaler INHALE 2 PUFFS BY MOUTH EVERY DAY No current facility-administered medications on file prior to visit. ROS: Review of Systems Constitutional: Positive for malaise/fatig (more content not included)... [facility] 09-12-2023 Miscellaneous Notes Ordered faxed to Umm Ramos RN BRM/HM: Please sign pended order Orders sent to That special woman, Umm PH: [phone] Will notifijoe Monsalve, vehicle care specialist, once signed Carin Ramso RN documented in this encounter [facility] 09-12-2023 Note HNO ID: [id number] Author: Reginald Aragon MD Service: ? Author Type: Physician Type: Progress Notes Filed: 09/12/2023 7:56 PM Note Text: PATIENT NAME: Kaylie Salomon DATE: 09/12/2023 PRIMARY CARE PHYSICIAN: Dr. Landeros OTHER PHYSICIANS: Dr. Ramon Smith, [facility] Portions of this encounter note have been copied from the note from 03/14/2023 and has been updated where appropriate, and reflect my current medical decision making from today. CC: This is a 73 year old female with a history of breast cancer, seen for scheduled follow-up. INTERIM HISTORY: Since the patient's last visit here she apparently was diagnosed with atrial fibrillation, and is on new medications per cardiology. She also has had new psychiatric issues (psychosis) and is on new medications per psychiatry. She appears to be tolerating them well. Otherwise she has had no significant medical changes. Overall she feels fairly well today with no particular complaints. No unusual pain. No changes in her breasts. MEDICATIONS: potassium chloride 20 mEq TbER TAKE 2 TABLETS BY MOUTH EVERY DAY ADULTS 50 PLUS 0.4-300-250 mg-mcg-mcg tab Take 1 tablet by mouth once daily. (Patient not taking: Reported on 03/14/2023) FASENRA PEN 30 mg/mL potassium chloride ER (K-DUR, KLOR-CON) 20 mEq tablet Take 2 tablets by mouth once daily. (Patient not taking: Reported on 03/14/2023) FARXIGA 5 mg tablet metFORMIN (GLUCOPHAGE) 500 mg tablet TK 1 T PO BID predniSONE (DELTASONE) 10 mg tablet TK 3 TS PO QAM FOR 3 DAYS FOR ASTHMA FLARE montelukast (SINGULAIR) 10 mg tablet TK 1 T PO QD ipratropium-albuterol (DUONEB) 0.5 mg-3 mg(2.5 mg base)/3 mL nebu INHALE THE CONTENTS OF 1 VIAL THROUGH NEBULIZER QID NYSTOP powder Apply to affected area twice daily as needed. APPLY TO AFFECTED AREA (Patient not taking: Reported on 03/14/2023) silver sulfADIAZINE (SILVADENE,THERMAZENE) 1 % cream Apply to affected area twice daily (Patient not taking: Reported on 03/14/2023) albuterol HFA (PROVENTIL HFA, VENTOLIN HFA) 90 mcg/actuation inhaler Inhale 2 Puffs as instructed every 6 hours as needed. pantoprazole DR (PROTONIX) 40 mg tablet Take 40 mg by mouth once daily. loratadine (CLARITIN) 10 mg tablet Take 10 mg by mouth once daily. acetaminophen (TYLENOL) 500 mg tablet Take 1,000 mg by mouth every 6 hours as needed. prochlorperazine (COMPAZINE) 10 mg tablet Take 1 tablet by mouth every 6 hours as needed. ondansetron (ZOFRAN) 8 mg tablet Take 1 tablet by mouth every 8 hours as needed for Nausea/Vomiting. ELIQUIS 5 mg tab(s) Take 5 mg by mouth twice daily. atorvastatin (LIPITOR) 40 mg tablet Take 40 mg by mouth once daily. VITAMIN D-3 2,000 unit cap 2,000 Units once daily. (Patient not taking: Reported on 03/14/2023) ADVAIR DISKUS 500-50 mcg/dose dsdv 1 Puff twice daily. (Patient not taking: Reported on 03/14/2023) fluticasone (FLONASE) 50 mcg/actuation nasal spray 2 Sprays once daily. furosemide (LASIX) 20 mg tablet Take 40 mg by mouth once daily. losartan (COZAAR) 100 mg tablet Take 100 mg by mouth once daily. metoprolol tartrate, short acting, (LOPRESSOR) 50 mg tablet Take 50 mg by mouth twice daily. WOMEN'S MULTIVITAMIN 18 mg-400 mcg- 500 mg-50 mcg tab TK 1 T PO D sertraline (ZOLOFT) 50 mg tablet Take 50 mg by mouth once daily. SPIRIVA RESPIMAT 1.25 mcg/actuation mist Inhale 2 Puffs as instructed once daily. (Patient not taking: Reported on 03/14/2023) ALLERGIES: Clarithromycin, Conjugated Estrogens, Neosporin [Etqwgyxf-Adjghdgorb-Dhxivzobg], Paclitaxel, Peanut, Penicillins, and Sulfa (Sulfonamide Antibiotics) PAST MEDICAL HISTORY: PAST MEDICAL HISTORY Diagnosis Date AF (atrial fibrillation) ([facility]) Asthma Breast cancer ([facility]) 02/[address] Landeros COPD (chronic obstructive pulmonary disease) (HCC) Edema Hyperlipidemia Hypertension OA (osteoarthritis of spine) Port-A-Cath in place PAST SURGICAL HISTORY: PAST SURGICAL HISTORY Procedure Laterality Date CARDIAC CATH 12/2018 PORTOCATH PLACEMENT REVIEW OF SYSTEMS: General: No weight loss, malaise or fevers. HEENT: Negative for frequent or significant headaches, No changes in hearing or vision, no nose bleeds or other nasal problems Respiratory: Negative for cough, wheezing or shortness of breath. Cardiovascular: Negative for chest pain, leg swelling or palpitations. GI: Negative for abdominal discomfort, blood in stools or black stools or change in bowel habits. : No history of dysuria, frequency or incontinence. Musculoskeletal: Negative for: joint pain or swelling, back pain and muscle pain. Skin: Negative for lesions, rash and itching. Hematology/Lymphology: Negative for prolonged bleeding, bruising easily or swollen nodes. Neuro: No history of headaches, syncope, paralysis, seizures or tremors. PHYSICAL EXAM: Vitals: BP 108/67 Pulse 88 Temp 36.5 ?C (97.7 ?F) (Temporal) Resp 16 Ht 167.7 cm (5' (more content not included)... [facility] 08-29-2023 Note Cardiology Clinic No te Subjective Kaylie Salomon is a 73 y.o. year old female patient with past medical history of nonobstructive CAD, GERD, hypertension, Paroxysmal A-fib RVR, asthma, HFpE, MRDD, depression, breast Ca with radiation theray 2017 or 2018, seen in follow-up. Patient Active Problem List Diagnosis Acute hypoxemic respiratory failure (CMS/HCC) Acute severe refractory exacerbation of asthma History of ST elevation myocardial infarction (STEMI) Gastroesophageal reflux disease Hypertensive disorder Asthma Iron deficiency anemia secondary to inadequate dietary iron intake Carcinoma of lower-outer quadrant of right breast in female, estrogen receptor negative (CMS/HCC) Paroxysmal atrial fibrillation (CMS/HCC) Sinusitis Type 1 diabetes mellitus (CMS/HCC) Chronic heart failure with preserved ejection fraction (CMS/HCC) Family History Problem Relation Name Age of Onset Heart failure Mother Social History Tobacco Use Smoking status: Never Smokeless tobacco: Never Substance Use Topics Alcohol use: Not Currently Drug use: Never HPI: Kaylie Salomon is a 73 y.o. year old with past medical history of Paroxysmal A-fib RVR, asthma, HFpEF as BNP was elevated in 2019 and was then treated with Lasix on discharge and HFpEF is induced by tachyarrhythmia it appears, nonobstructive CAD, GERD, hypertension, MRDD, depression, breast Ca with radiation theray 2017 or 2018, no prior diagnosis of AF prior to radiation. Patient accompanied by caregiver Patient referred to EP clinic for A-fib. She was found to be in A-fib 04/2023 per ECG and metoprolol was increased. Today she continues to be in A-fib. She appears to be asymptomatic. She denies chest pain, shortness of breath, BOSCH, LE edema. Caregiver states she does get short of breath with some exertion but this is not new for her. Update: 08/29/2023 She is here to follow-up on decompensated heart failure Her Lasix was temporarily increased to 40 mg twice daily, she was started on spironolactone and Jardiance was increased to 10 mg She is here today with her caregiver Ruddy who is primary historian She continues to experience weight gain, lower extremity edema and significant dyspnea on exertion Review of Systems Cardiovascular: Positive for dyspnea on exertion and leg swelling. Negative for chest pain, irregular heartbeat, near-syncope, orthopnea, palpitations, paroxysmal nocturnal dyspnea and syncope. Objective Visit Vitals BP 107/71 (BP Location: Right wrist, Patient Position: Sitting) Pulse 77 Ht 1.727 m (5' 8 ) Wt 127 kg (279 lb) SpO2 97% BMI 42.42 kg/m??? Smoking Status Never BSA 2.47 m??? Physical Exam General: Awake, alert, NAD Neck: No elevated JVP. No carotid bruit Pulm: Breath sounds clear to ascultation bilaterally with no wheeze, crackles or rhonchi Cards: Regular rate and rhythm, S1, S2. No S3 or S4 gallop. Murmur: none Extr: Lower extremity edema: non-pitting. Skin: warm, dry, well perfused Neuro: A&Ox3, No gross deficits Allergies Allergies Allergen Reactions Peanut Anaphylaxis Bacitracin Bromelains Clarithromycin Other and Unknown Conjugated Estrogens Unknown Estrogens, Conjugated Neomycin Sulfate Paclitaxel Other Numbness,tingling and elevated blood pressure Pineapple Polymyxin B Shrimp All seafood Sulfa (Sulfonamide Antibiotics) Other and Unknown Tepaaaij-Svmdkgoeof-Qtjdohxge Rash Penicillins Rash Medications Current Outpatient Medications: albuterol 90 mcg/actuation inhaler, Inhale 2 puffs in the morning, at noon, and at bedtime., Disp: , Rfl: apixaban (Eliquis) 5 mg tablet, Take 1 tablet by mouth in the morning and at bedtime., Disp: , Rfl: ARIPiprazole (Abilify) 5 mg tablet, Take 1.5 tablets by mouth in the morning., Disp: , Rfl: atorvastatin (Lipitor) 40 mg tablet, Take 1 tablet by mouth at bedtime., Disp: , Rfl: benralizumab (Fasenra Pen) 30 mg/mL auto-injector, , Disp: , Rfl: dapagliflozin propanediol (Farxiga) 10 mg, Take 1 tablet (10 mg) by mouth once daily as directed., Disp: 30 tablet, Rfl: 11 fluticasone (Flonase) 50 mcg/actuation nasal spray, 1 (one) time each day at the same time., Disp: , Rfl: fluticasone propion-salmeteroL (Advair Diskus) 500-50 mcg/dose diskus inhaler, Inhale 1 puff in the morning and at bedtime., Disp: , Rfl: furosemide (Lasix) 20 mg tablet, Take 2 tablets (40 mg) by mouth in the morning., Disp: 30 tablet, Rfl: 11 ipratropium-albuteroL (Duo-Neb) 0.5-2.5 mg/3 mL nebulizer solution, every 6 (six) hours., Disp: , Rfl: loratadine (Claritin) 10 mg tablet, Take 1 tablet by mouth in the morning., Disp: , Rfl: losartan (Cozaar) 100 mg tablet, Take 1 tablet by mouth in the morning., Disp: , Rfl: metFORMIN (Glucophage) 500 mg tablet, Take 500 mg by mouth in the morning and at bedtime., Disp: , Rfl: metoprolol tartrate (Lopressor) 100 mg tablet, Take 1 tablet (100 mg) by mouth in the morni (more content not included)... [facility] 08-29-2023 Note Patient here today w ith her caregiver for weight gain and increased SOB. Caregiver states she's much more sleepy during the day lately. She was started on spironolactone last week by Pietro Aldridge CNP. Farxiga was increased to 10mg daily, and he also had her double her lasix to 80mg x 3 days. She is back to baseline dose of 40mg of lasix in the AM. Denies chest pain, palpitations, lightheadedness, and bleeding on Eliquis. Review of Systems Constitutional: Positive for malaise/fatigue and weight gain (6# since May 2023). Cardiovascular: Positive for dyspnea on exertion (worsening) and leg swelling (worsening). Musculoskeletal: Positive for joint pain. All other systems reviewed and are negative. [facility] 08-19-2023 Note Patient here c/o jin ght gain, LE edema, and increased SOB w/ exertion. Caregiver with her in the office today states the nurse is very concerned about her . They're afraid to encourage her to walk lately due to SOB. She denies chest pain, palpitations, and lightheadedness. Caregiver is also concerned about mental status changes recently. C/o increased fatigue. Review of Systems Constitutional: Positive for malaise/fatigue and weight gain (6# since May 2023). Cardiovascular: Positive for dyspnea on exertion and leg swelling. Psychiatric/Behavioral: Positive for altered mental status. The patient is nervous/anxious. All other systems reviewed and are negative. [facility] 08-19-2023 Note [facility] Consult Note Reason for visit: A-fib, HFpEF weight gain 08/20/23: patient regarding weight gain per previous visit she is up about 6 pounds on our scale, per caregiver she is up 10 pounds in the last 3 weeks on their scale at home patient does exhibit some BOSCH and worsened LE edema than previous exam she denies any complaints of chest pain, shortness of breath, BOSCH, LE edema. But on exam it is obvious that she gets short of breath at the end of her sentences, and her lower extremities are much more swollen than when I last saw her. 06/18/23 HPI: Kaylie Salomon is a 73 y.o. year old with past medical history of Paroxysmal A-fib RVR, asthma, HFpEF as BNP was elevated in 2019 and was then treated with Lasix on discharge and HFpEF is induced by tachyarrhythmia it appears, nonobstructive CAD, GERD, hypertension, MRDD, depression, breast Ca with radiation theray 2017 or 2018, no prior diagnosis of AF prior to radiation. Patient accompanied by caregiver Patient referred to EP clinic for A-fib. She was found to be in A-fib 04/2023 per ECG and metoprolol was increased. Today she continues to be in A-fib. She appears to be asymptomatic. She denies chest pain, shortness of breath, BOSCH, LE edema. Caregiver states she does get short of breath with some exertion but this is not new for her. ECG AF hr 104bpm PMH: Past Medical History: Diagnosis Date Atrial fibrillation (CMS/HCC) Diabetes (CMS/HCC) GERD (gastroesophageal reflux disease) Hypertension Myocardial infarct (CMS/HCC) PSH: Past Surgical History: Procedure Laterality Date CARDIAC CATHETERIZATION 01/16/2019 SH: Social Determinants of Health Tobacco Use: Low Risk (05/21/2023) Patient History Smoking Tobacco Use: Never Smokeless Tobacco Use: Never Passive Exposure: Not on file Alcohol Use: Not on file Financial Resource Strain: Not on file Food Insecurity: Not on file Transportation Needs: Not on file Physical Activity: Not on file Stress: Not on file Social Connections: Not on file Intimate Partner Violence: Not on file Depression: Not on file Housing Stability: Not on file Allergies: Allergies Allergen Reactions Peanut Anaphylaxis Bacitracin Bromelains Clarithromycin Other and Unknown Conjugated Estrogens Unknown Estrogens, Conjugated Neomycin Sulfate Paclitaxel Other Numbness,tingling and elevated blood pressure Pineapple Polymyxin B Shrimp All seafood Sulfa (Sulfonamide Antibiotics) Other and Unknown Qsceyhji-Svcoahhbyc-Lyizvhyuk Rash Penicillins Rash Weight: 125kg Visit Vitals BP 138/83 (BP Location: Right wrist, Patient Position: Sitting) Pulse 99 Ht 1.727 m (5' 8 ) Wt 125 kg (275 lb) SpO2 96% BMI 41.81 kg/m??? Smoking Status Never BSA 2.45 m??? Meds: Current Outpatient Medications on File Prior to Visit Medication Sig Dispense Refill albuterol 90 mcg/actuation inhaler Inhale 2 puffs in the morning, at noon, and at bedtime. apixaban (Eliquis) 5 mg tablet Take 1 tablet by mouth in the morning and at bedtime. ARIPiprazole (Abilify) 5 mg tablet Take 1.5 tablets by mouth in the morning. atorvastatin (Lipitor) 40 mg tablet Take 1 tablet by mouth at bedtime. benralizumab (Fasenra Pen) 30 mg/mL auto-injector dapagliflozin propanediol (Farxiga) 5 mg Take 1 tablet by mouth in the morning. fluticasone (Flonase) 50 mcg/actuation nasal spray 1 (one) time each day at the same time. fluticasone propion-salmeteroL (Advair Diskus) 500-50 mcg/dose diskus inhaler Inhale 1 puff in the morning and at bedtime. furosemide (Lasix) 20 mg tablet Take 40 mg by mouth in the morning. ipratropium-albuteroL (Duo-Neb) 0.5-2.5 mg/3 mL nebulizer solution every 6 (six) hours. loratadine (Claritin) 10 mg tablet Take 1 tablet by mouth in the morning. losartan (Cozaar) 100 mg tablet Take 1 tablet by mouth in the morning. metFORMIN (Glucophage) 500 mg tablet Take 500 mg by mouth in the morning and at bedtime. metoprolol tartrate (Lopressor) 100 mg tablet Take 1 tablet (100 mg) by mouth in the morning and at bedtime. 60 tablet 11 montelukast (Singulair) 10 mg tablet Take 1 tablet by mouth in the morning. pantoprazole (ProtoNix) 40 mg EC tablet Take 1 tablet by mouth in the morning. potassium chloride CR (Klor-Con M20) 20 mEq ER tablet Take 20 mEq by mouth in the morning. sertraline (Zoloft) 50 mg tablet Take 1 tablet by mouth at bedtime. tiotropium (Spiriva Respimat) 1.25 mcg/actuation inhaler INHALE 2 PUFFS BY MOUTH EVERY DAY prochlorperazine (Compazine) 10 mg tablet Take 10 mg by mouth every 6 (six) hours if needed for nausea or vomiting. No current facility-administered medications on file prior to visit. ROS: Cardio Basic Cardiovascular Symptoms: no lightheadedness, no leg edema, no syncope, no orthopnea, no PND, no claudication, Constitutional Constitutional: no fever, no night sweats, no significant weight gain, no signific (more content not included)... [facility] 06-18-2023 Note Patient here for 1 m o follow up PAF and hypertension. Metoprolol was increased at last apt in Apr 2023. Had labs 05/24. Still denies chest pain, SOB, palpitations, lightheadedness, and bleeding on Eliquis. Review of Systems All other systems reviewed and are negative. [facility] 06-18-2023 Note [facility] Consult Note Reason for visit: A-fib HPI: Kaylie Salomon is a 73 y.o. year old with past medical history of Paroxysmal A-fib RVR, asthma, HFpEF as BNP was elevated in 2019 and was then treated with Lasix on discharge and HFpEF is induced by tachyarrhythmia it appears, nonobstructive CAD, GERD, hypertension, MRDD, depression, breast Ca with radiation theray 2017 or 2018, no prior diagnosis of AF prior to radiation. Patient accompanied by caregiver Patient referred to EP clinic for A-fib. She was found to be in A-fib 04/2023 per ECG and metoprolol was increased. Today she continues to be in A-fib. She appears to be asymptomatic. She denies chest pain, shortness of breath, BOSCH, LE edema. Caregiver states she does get short of breath with some exertion but this is not new for her. ECG AF hr 104bpm PMH: Past Medical History: Diagnosis Date Atrial fibrillation (CMS/HCC) Diabetes (CMS/HCC) GERD (gastroesophageal reflux disease) Hypertension Myocardial infarct (CMS/HCC) PSH: Past Surgical History: Procedure Laterality Date CARDIAC CATHETERIZATION 01/16/2019 SH: Social Determinants of Health Tobacco Use: Low Risk (05/21/2023) Patient History Smoking Tobacco Use: Never Smokeless Tobacco Use: Never Passive Exposure: Not on file Alcohol Use: Not on file Financial Resource Strain: Not on file Food Insecurity: Not on file Transportation Needs: Not on file Physical Activity: Not on file Stress: Not on file Social Connections: Not on file Intimate Partner Violence: Not on file Depression: Not on file Housing Stability: Not on file Allergies: Allergies Allergen Reactions Peanut Anaphylaxis Bacitracin Bromelains Clarithromycin Other and Unknown Conjugated Estrogens Unknown Estrogens, Conjugated Neomycin Sulfate Paclitaxel Other Numbness,tingling and elevated blood pressure Pineapple Polymyxin B Shrimp All seafood Sulfa (Sulfonamide Antibiotics) Other and Unknown Lwtymqxl-Pviipsdfyw-Zulolgvdl Rash Penicillins Rash Weight: 122kg Visit Vitals BP 133/75 (BP Location: Left wrist, Patient Position: Sitting) Pulse 90 Ht 1.727 m (5' 8 ) Wt 122 kg (269 lb) SpO2 96% BMI 40.90 kg/m??? Smoking Status Never BSA 2.42 m??? Meds: Current Outpatient Medications on File Prior to Visit Medication Sig Dispense Refill albuterol 90 mcg/actuation inhaler Inhale 2 puffs in the morning, at noon, and at bedtime. apixaban (Eliquis) 5 mg tablet Take 1 tablet by mouth in the morning and at bedtime. atorvastatin (Lipitor) 40 mg tablet Take 1 tablet by mouth at bedtime. benralizumab (Fasenra Pen) 30 mg/mL auto-injector dapagliflozin propanediol (Farxiga) 5 mg Take 1 tablet by mouth in the morning. fluticasone (Flonase) 50 mcg/actuation nasal spray 1 (one) time each day at the same time. fluticasone propion-salmeteroL (Advair Diskus) 500-50 mcg/dose diskus inhaler Inhale 1 puff in the morning and at bedtime. furosemide (Lasix) 20 mg tablet Take 20 mg by mouth in the morning. ipratropium-albuteroL (Duo-Neb) 0.5-2.5 mg/3 mL nebulizer solution every 6 (six) hours. loratadine (Claritin) 10 mg tablet Take 1 tablet by mouth in the morning. losartan (Cozaar) 100 mg tablet Take 1 tablet by mouth in the morning. metFORMIN (Glucophage) 500 mg tablet Take 500 mg by mouth in the morning and at bedtime. metoprolol tartrate (Lopressor) 25 mg tablet Take one tablet twice daily, with a 50 mg tablet for a total of 75 mg twice daily 180 tablet 3 metoprolol tartrate (Lopressor) 50 mg tablet Take 50 mg by mouth twice a day. montelukast (Singulair) 10 mg tablet Take 1 tablet by mouth in the morning. pantoprazole (ProtoNix) 40 mg EC tablet Take 1 tablet by mouth in the morning. potassium chloride CR (Klor-Con M20) 20 mEq ER tablet Take 20 mEq by mouth in the morning. prochlorperazine (Compazine) 10 mg tablet Take 10 mg by mouth every 6 (six) hours if needed for nausea or vomiting. sertraline (Zoloft) 50 mg tablet Take 1 tablet by mouth at bedtime. tiotropium (Spiriva Respimat) 1.25 mcg/actuation inhaler INHALE 2 PUFFS BY MOUTH EVERY DAY [DISCONTINUED] acetaminophen (Tylenol) 500 mg tablet Take 500 mg by mouth every 6 (six) hours if needed for mild pain (1-3 pain score). [DISCONTINUED] nystatin (Mycostatin) 100,000 unit/gram powder Apply topically in the morning and at bedtime. [DISCONTINUED] ondansetron ODT (Zofran-ODT) 8 mg disintegrating tablet Take 8 mg by mouth every 8 (eight) hours if needed. No current facility-administered medications on file prior to visit. ROS: Cardio Basic Cardiovascular Symptoms: no lightheadedness, no leg edema, no syncope, no orthopnea, no PND, no claudication, Constitutional Constitutional: no fever, no night sweats, no significant weight gain, no significant weight loss, no exercise intolerance Eyes Eyes: no dry eyes, no irritation, no vision change ENMT Ears: no difficulty h (more content not included)... [facility] 06-10-2023 Miscellaneous Notes Spoke to healthcare recruiter. She has not heard from anyone regarding scheduling of Mammogram at [place]. Order faxed to [facility] scheduling. She is aware to call if she has not heard from them in the next week. She denies further needs at this time Carin Ramos RN Shelli called stating Kaylie needs scheduled for her Mammogram as she is due this month per office note. Pt does not have current order. Order pended Shayy: Please review and sign pending order. PSS: Pt needs scheduled at [facility]. Thanks! Nga Fraga RN documented in this encounter [facility] 05-21-2023 Note No concerning symptoms currently [facility] 05-21-2023 Note [facility] CARDIOLOGY PROGR ESS NOTE HPI: Kaylie Salomon is a 73 y.o. female here for routine f/U Paroxysmal a fib, HTN, obesity, DM type 1 HPI Pt presents with caregiver from SNF for routine f/U. Known PMH of Stemi, Parox a fib, HTN and HPL. Denied chest pain, shortness of breath, orthopnea, palpitations or heart racing. Review of Systems Constitutional: Negative. Respiratory: Negative. Cardiovascular: Negative. Neurological: Negative. All other systems reviewed and are negative. Visit Vitals BP 108/72 (BP Location: Left wrist, Patient Position: Sitting, BP Cuff Size: Large adult) Pulse 93 Ht 1.727 m (5' 8 ) Wt 121 kg (267 lb 11.2 oz) SpO2 96% BMI 40.70 kg/m??? Smoking Status Never BSA 2.41 m??? Allergies Allergen Reactions Peanut Anaphylaxis Bacitracin Bromelains Clarithromycin Other and Unknown Conjugated Estrogens Unknown Estrogens, Conjugated Neomycin Sulfate Paclitaxel Other Numbness,tingling and elevated blood pressure Pineapple Polymyxin B Shrimp All seafood Sulfa (Sulfonamide Antibiotics) Other and Unknown Rsewjirx-Bbhudkbwez-Ettjsbsgl Rash Penicillins Rash Medications: Current Outpatient Medications on File Prior to Visit Medication Sig Dispense Refill acetaminophen (Tylenol) 500 mg tablet Take 500 mg by mouth every 6 (six) hours if needed for mild pain (1-3 pain score). albuterol 90 mcg/actuation inhaler Inhale 2 puffs in the morning, at noon, and at bedtime. apixaban (Eliquis) 5 mg tablet Take 1 tablet by mouth in the morning and at bedtime. atorvastatin (Lipitor) 40 mg tablet Take 1 tablet by mouth at bedtime. benralizumab (Fasenra Pen) 30 mg/mL auto-injector dapagliflozin propanediol (Farxiga) 5 mg Take 1 tablet by mouth in the morning. fluticasone (Flonase) 50 mcg/actuation nasal spray 1 (one) time each day at the same time. fluticasone propion-salmeteroL (Advair Diskus) 500-50 mcg/dose diskus inhaler Inhale 1 puff in the morning and at bedtime. furosemide (Lasix) 20 mg tablet Take 20 mg by mouth in the morning. ipratropium-albuteroL (Duo-Neb) 0.5-2.5 mg/3 mL nebulizer solution every 6 (six) hours. loratadine (Claritin) 10 mg tablet Take 1 tablet by mouth in the morning. losartan (Cozaar) 100 mg tablet Take 1 tablet by mouth in the morning. metFORMIN (Glucophage) 500 mg tablet Take 500 mg by mouth in the morning and at bedtime. metoprolol tartrate (Lopressor) 50 mg tablet Take 50 mg by mouth twice a day. montelukast (Singulair) 10 mg tablet Take 1 tablet by mouth in the morning. nystatin (Mycostatin) 100,000 unit/gram powder Apply topically in the morning and at bedtime. ondansetron ODT (Zofran-ODT) 8 mg disintegrating tablet Take 8 mg by mouth every 8 (eight) hours if needed. pantoprazole (ProtoNix) 40 mg EC tablet Take 1 tablet by mouth in the morning. potassium chloride CR (Klor-Con M20) 20 mEq ER tablet Take 20 mEq by mouth in the morning. prochlorperazine (Compazine) 10 mg tablet Take 10 mg by mouth every 6 (six) hours if needed for nausea or vomiting. sertraline (Zoloft) 50 mg tablet Take 1 tablet by mouth at bedtime. tiotropium (Spiriva Respimat) 1.25 mcg/actuation inhaler INHALE 2 PUFFS BY MOUTH EVERY DAY [DISCONTINUED] cholecalciferol (Vitamin D-3) 25 MCG (1000 units) tablet Take 2,000 Units by mouth in the morning. [DISCONTINUED] albuterol sulfate (Proair Digihaler) 90 mcg/actuation aero powdr breath act w/sensor Inhale 2 puffs every 4 (four) hours. No current facility-administered medications on file prior to visit. Physical Exam: Constitutional: Appearance: Normal appearance. Without apparent distress, obese HENT: Head: Normocephalic and atraumatic. Nose: Nose normal. Mouth/Throat: Mouth: Mucous membranes are moist. Eyes: Extraocular Movements: Extraocular movements intact. Conjunctiva/sclera: Conjunctivae normal. Neck: Vascular: No JVD. Cardiovascular: Rate and Rhythm: Irreg/Irreg Pulses: Dorsalis pedis pulses are 3 on the right side and 3on the left side. Posterior tibial pulses are 3 on the right side and 3 on the left side. Heart sounds: Normal heart sounds, S1 normal and S2 normal. Pulmonary: Effort: Pulmonary effort is normal. Breath sounds: Normal breath sounds. Abdominal: General: Bowel sounds are normal. Palpations: Abdomen is soft. Musculoskeletal: General: Normal range of motion. Cervical back: Normal range of motion. Right lower leg: No edema. Left lower leg: No edema. Skin: General: Skin is warm and dry. Capillary Refill: Capillary refill takes less than 2 seconds. Neurological: General: No focal deficit present. Mental Status: She is alert and oriented to person, place, and time. Psychiatric: Mood and Affect: Mood normal. Behavior: Behavior normal. Labs: 03/14/23 CBC normal WBC 3.70 - 11.00 k/uL 9.94 RBC 3.90 - 5.20 m/uL 4.06 Hemoglobin 11.5 - 15.5 g/dL 11.7 Hematocrit 36.0 - 46.0 % 38.4 MCV 80.0 - 100.0 fL 94.6 MCH 26.0 - (more content not included)... [facility] 05-21-2023 Note [id number] VASc= 4 HTN, age, female Continue anticoagulation with eliquis Currently in a fib per EKG at HR 104 bpm Will increase metoprolol to 75 mg bid for better rate control RTC with EP in about 1-3 months Monitor for s/s of bleeding [facility] 05-21-2023 Note Hypertension is well controlled Continue all meds losartan, metoprolol [facility] 04-04-2023 Miscellaneous Notes Spoke w/ Penelope. Requests that we send pt's most recent lab results to Dr Landeros's office. Results from 03/[address] Landeros's office as requested. Angelina Boo RN Voicemail message received from pt's sister, Penelope, regarding lab results. Call placed to sister. No answer. Message left requesting call back. Angelina Boo RN documented in this encounter [facility] 03-14-2023 Note HNO ID: [id number] Author: Reginald Aragon MD Service: ? Author Type: Physician Type: Progress Notes Filed: 03/15/2023 7:38 AM Note Text: PATIENT NAME: Kaylie Salomon DATE: 03/14/2023 PRIMARY CARE PHYSICIAN: Dr. Charles Landeros OTHER PHYSICIANS: Dr. Ramon Smith, [place] [facility] Portions of this encounter note have been copied from the note from 09/13/2022 and has been updated where appropriate, and reflect my current medical decision making from today. CC: This is a 73 year old female with a history of breast cancer, seen for scheduled follow-up. INTERIM HISTORY: Since the patient's last visit here she apparently underwent cataract surgery in December 2022. She has had no other significant medical changes. Currently she feels well with no complaints. She denies any left breast or right chest wall. No unusual pain or other systemic symptoms. MEDICATIONS: potassium chloride 20 mEq TbER TAKE 2 TABLETS BY MOUTH EVERY DAY ADULTS 50 PLUS 0.4-300-250 mg-mcg-mcg tab Take 1 tablet by mouth once daily. FASENRA PEN 30 mg/mL potassium chloride ER (K-DUR, KLOR-CON) 20 mEq tablet Take 2 tablets by mouth once daily. FARXIGA 5 mg tablet metFORMIN (GLUCOPHAGE) 500 mg tablet TK 1 T PO BID predniSONE (DELTASONE) 10 mg tablet TK 3 TS PO QAM FOR 3 DAYS FOR ASTHMA FLARE montelukast (SINGULAIR) 10 mg tablet TK 1 T PO QD ipratropium-albuterol (DUONEB) 0.5 mg-3 mg(2.5 mg base)/3 mL nebu INHALE THE CONTENTS OF 1 VIAL THROUGH NEBULIZER QID NYSTOP powder Apply to affected area twice daily as needed. APPLY TO AFFECTED AREA silver sulfADIAZINE (SILVADENE,THERMAZENE) 1 % cream Apply to affected area twice daily albuterol HFA (PROVENTIL HFA, VENTOLIN HFA) 90 mcg/actuation inhaler Inhale 2 Puffs as instructed every 6 hours as needed. pantoprazole DR (PROTONIX) 40 mg tablet Take 40 mg by mouth once daily. loratadine (CLARITIN) 10 mg tablet Take 10 mg by mouth once daily. acetaminophen (TYLENOL) 500 mg tablet Take 1,000 mg by mouth every 6 hours as needed. prochlorperazine (COMPAZINE) 10 mg tablet Take 1 tablet by mouth every 6 hours as needed. ondansetron (ZOFRAN) 8 mg tablet Take 1 tablet by mouth every 8 hours as needed for Nausea/Vomiting. ELIQUIS 5 mg tab(s) Take 5 mg by mouth twice daily. atorvastatin (LIPITOR) 40 mg tablet Take 40 mg by mouth once daily. VITAMIN D-3 2,000 unit cap 2,000 Units once daily. ADVAIR DISKUS 500-50 mcg/dose dsdv 1 Puff twice daily. fluticasone (FLONASE) 50 mcg/actuation nasal spray 2 Sprays once daily. furosemide (LASIX) 20 mg tablet Take 20 mg by mouth once daily. losartan (COZAAR) 100 mg tablet Take 100 mg by mouth once daily. metoprolol tartrate, short acting, (LOPRESSOR) 50 mg tablet Take 50 mg by mouth twice daily. WOMEN'S MULTIVITAMIN 18 mg-400 mcg- 500 mg-50 mcg tab TK 1 T PO D sertraline (ZOLOFT) 50 mg tablet Take 50 mg by mouth once daily. SPIRIVA RESPIMAT 1.25 mcg/actuation mist Inhale 2 Puffs as instructed once daily. ALLERGIES: Clarithromycin, Conjugated Estrogens, Neosporin [Vmzqphre-Qqfsuoapvh-Hzrwgkdgy], Paclitaxel, Peanut, Penicillins, and Sulfa (Sulfonamide Antibiotics) PAST MEDICAL HISTORY: PAST MEDICAL HISTORY Diagnosis Date AF (atrial fibrillation) (HCC) Asthma Breast cancer (HCC) 02/[address] Landeros COPD (chronic obstructive pulmonary disease) (HCC) Edema Hyperlipidemia Hypertension OA (osteoarthritis of spine) Port-A-Cath in place PAST SURGICAL HISTORY: PAST SURGICAL HISTORY Procedure Laterality Date CARDIAC CATH 12/2018 PORTOCATH PLACEMENT REVIEW OF SYSTEMS: General: No weight loss, malaise or fevers. HEENT: Negative for frequent or significant headaches, No changes in hearing or vision, no nose bleeds or other nasal problems Respiratory: Negative for cough, wheezing or shortness of breath. Cardiovascular: Negative for chest pain, leg swelling or palpitations. GI: Negative for abdominal discomfort, blood in stools or black stools or change in bowel habits. : No history of dysuria, frequency or incontinence. Musculoskeletal: Negative for: joint pain or swelling, back pain and muscle pain. Skin: Negative for lesions, rash and itching. Hematology/Lymphology: Negative for prolonged bleeding, bruising easily or swollen nodes. Neuro: No history of headaches, syncope, paralysis, seizures or tremors. PHYSICAL EXAM: Vitals: BP 114/63 Pulse 68 Temp 36.5 ?C (97.7 ?F) (Temporal) Resp 16 Ht 167.7 cm (5' 6.02 ) Wt 119.9 kg (264 lb 6.4 oz) SpO2 97% BMI 42.64 kg/m? ECOC 0 Exam limited to gross visualization where appropriate due to COVID-19. Gen.: This is an age-appropriate patient in no acute distress. Head: Appears atraumatic with no visible lesions. Eyes: Pupils equally round and reactive to light, extraocular muscles are intact. Neck: Supple. Mouth: Mucous membranes appeared to be moist. Respiratory: Appears to be respiring comfortabl (more content not included)... [facility] 03-14-2023 History of Present illness Narrative PATIENT NAME: Kaylie Salomon DATE: 03/14/2023 PRIMARY CARE PHYSICIAN: Dr. Charles Landeros OTHER PHYSICIANS: Dr. Ramon Smith, [facility] Portions of this encounter note have been copied from the note from 09/13/2022 and has been updated where appropriate, and reflect my current medical decision making from today. CC: This is a 73 year old female with a history of breast cancer, seen for scheduled follow-up. INTERIM HISTORY: Since the patient's last visit here she apparently underwent cataract surgery in December 2022. She has had no other significant medical changes. Currently she feels well with no complaints. She denies any left breast or right chest wall. No unusual pain or other systemic symptoms. MEDICATIONS: potassium chloride 20 mEq TbER TAKE 2 TABLETS BY MOUTH EVERY DAY ADULTS 50 PLUS 0.4-300-250 mg-mcg-mcg tab Take 1 tablet by mouth once daily. FASENRA PEN 30 mg/mL potassium chloride ER (K-DUR, KLOR-CON) 20 mEq tablet Take 2 tablets by mouth once daily. FARXIGA 5 mg tablet metFORMIN (GLUCOPHAGE) 500 mg tablet TK 1 T PO BID predniSONE (DELTASONE) 10 mg tablet TK 3 TS PO QAM FOR 3 DAYS FOR ASTHMA FLARE montelukast (SINGULAIR) 10 mg tablet TK 1 T PO QD ipratropium-albuterol (DUONEB) 0.5 mg-3 mg(2.5 mg base)/3 mL nebu INHALE THE CONTENTS OF 1 VIAL THROUGH NEBULIZER QID NYSTOP powder Apply to affected area twice daily as needed. APPLY TO AFFECTED AREA silver sulfADIAZINE (SILVADENE,THERMAZENE) 1 % cream Apply to affected area twice daily albuterol HFA (PROVENTIL HFA, VENTOLIN HFA) 90 mcg/actuation inhaler Inhale 2 Puffs as instructed every 6 hours as needed. pantoprazole DR (PROTONIX) 40 mg tablet Take 40 mg by mouth once daily. loratadine (CLARITIN) 10 mg tablet Take 10 mg by mouth once daily. acetaminophen (TYLENOL) 500 mg tablet Take 1,000 mg by mouth every 6 hours as needed. prochlorperazine (COMPAZINE) 10 mg tablet Take 1 tablet by mouth every 6 hours as needed. ondansetron (ZOFRAN) 8 mg tablet Take 1 tablet by mouth every 8 hours as needed for Nausea/Vomiting. ELIQUIS 5 mg tab(s) Take 5 mg by mouth twice daily. atorvastatin (LIPITOR) 40 mg tablet Take 40 mg by mouth once daily. VITAMIN D-3 2,000 unit cap 2,000 Units once daily. ADVAIR DISKUS 500-50 mcg/dose dsdv 1 Puff twice daily. fluticasone (FLONASE) 50 mcg/actuation nasal spray 2 Sprays once daily. furosemide (LASIX) 20 mg tablet Take 20 mg by mouth once daily. losartan (COZAAR) 100 mg tablet Take 100 mg by mouth once daily. metoprolol tartrate, short acting, (LOPRESSOR) 50 mg tablet Take 50 mg by mouth twice daily. WOMEN'S MULTIVITAMIN 18 mg-400 mcg- 500 mg-50 mcg tab TK 1 T PO D sertraline (ZOLOFT) 50 mg tablet Take 50 mg by mouth once daily. SPIRIVA RESPIMAT 1.25 mcg/actuation mist Inhale 2 Puffs as instructed once daily. ALLERGIES: Clarithromycin, Conjugated Estrogens, Neosporin [Vpgtvxhr-Uerxmvpian-Mwnnobafg], Paclitaxel, Peanut, Penicillins, and Sulfa (Sulfonamide Antibiotics) PAST MEDICAL HISTORY: PAST MEDICAL HISTORY Diagnosis Date AF (atrial fibrillation) ([facility]) Asthma Breast cancer ([facility]) 02/[address] Landeros COPD (chronic obstructive pulmonary disease) ([facility]) Edema Hyperlipidemia Hypertension OA (osteoarthritis of spine) Port-A-Cath in place PAST SURGICAL HISTORY: PAST SURGICAL HISTORY Procedure Laterality Date CARDIAC CATH 12/2018 PORTOCATH PLACEMENT REVIEW OF SYSTEMS: General: No weight loss, malaise or fevers. HEENT: Negative for frequent or significant headaches, No changes in hearing or vision, no nose bleeds or other nasal problems Respiratory: Negative for cough, wheezing or shortness of breath. Cardiovascular: Negative for chest pain, leg swelling or palpitations. GI: Negative for abdominal discomfort, blood in stools or black stools or change in bowel habits. : No history of dysuria, frequency or incontinence. Musculoskeletal: Negative for: joint pain or swelling, back pain and muscle pain. Skin: Negative for lesions, rash and itching. Hematology/Lymphology: Negative for prolonged bleeding, bruising easily or swollen nodes. Neuro: No history of headaches, syncope, paralysis, seizures or tremors. PHYSICAL EXAM: Vitals: BP 114/63 Pulse 68 Temp 36.5 C (97.7 F) (Temporal) Resp 16 Ht 167.7 cm (5' 6.02 ) Wt 119.9 kg (264 lb 6.4 oz) SpO2 97% BMI 42.64 kg/m ECOC 0 Exam limited to gross visualization where appropriate due to COVID-19. Gen.: This is an age-appropriate patient in no acute distress. Head: Appears atraumatic with no visible lesions. Eyes: Pupils equally round and reactive to light, extraocular muscles are intact. Neck: Supple. Mouth: Mucous membranes appeared to be moist. Respiratory: Appears to be respiring comfortably. Neurologic: Nonfocal to gross visualization. Alert and oriented 3. Psychiatric: No evidence of inappropriate anxiety or depression. Skin: Visible areas of skin without rash, lesions, wounds or petechiae. Lymph Nodes: No Submandibular, cervical, supraclavicular, axillary, or inguinal lymphadenopathy present Breast: Right breast mastectomy scar without lesion. No masses/tenderness/discharge, No skin changes LABORATORY DATA: Hemoglobin (g/dL) Date Value 03/14/2023 11.7 08/17/2021 11.9 Hematocrit (%) Date Value 03/14/2023 38.4 08/17/2021 38.0 WBC (k/uL) Date Value 03/14/2023 9.94 08/17/2021 5.77 Platelet Count (k/uL) Date Value 03/14/2023 260 08/17/2021 253 RADIOLOGY/OTHER STUDIES: 06/14/2022 Left Diagnostic Mammogram ([facility]) Findings: Diagnostic category 2-benign finding: Left breast: No significant suspicious finding. Scattered benign-appearing nodules are present. No significant change has occurred. 08/17/2021 CT CHEST IMPRESSION: 1. Stable posttreatment changes, as described above. 2. Stable appearance of left lower lobe 5 mm nodule. No new or enlarging nodules are seen. 3. No evidence of bulky intrathoracic lymphadenopathy. 12/29/2018 Echocardiogram Within normal limits, LVEF 55% 03/25/[address] IMPRESSION: 1. Neck: No suspicious hypermetabolic foci 2. Chest: Diffuse increased uptake associated with right breast region cutaneous thickening. Hypermetabolic focus in the right breast. Findings suspicious for neoplasm. Hypermetabolic right axillary lymphadenopathy. left lower lobe lung nodule associated with low-level mild uptake. 3. Abdomen and pelvis: No evidence of FDG avid metastasis 4. Skeleton: No hypermetabolic osseous lesions ASSESSMENT/PLAN: 1. 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 Status post right mastectomy 04/03/2019. Postop the patient received adjuvant chemotherapy with TCHP x 6 cycles 05/06/2019 through 08/24/2019 (chemotherapy held for cycle 6 due to toxicity). The patient then continued adjuvant Herceptin x1 year which completed 04/14/2020. She subsequently received adjuvant chest wall radiation therapy ([facility]) 10/05/2019 through 11/06/2019. Currently the patient has no evidence of disease. At this time we will continue routine follow-up. She will undergo her surveillance mammogram at [facility] in May 2023. I will see her back in 6 months for follow-up and labs. We will stage as indicated if suspicious signs or symptoms develop. 2. History of iron deficiency anemia - ICD9: 280.8, ICD10: D50.8 Iron deficiency anemia discovered June 2019, most likely secondary to occult blood loss. Status post IV iron x2 June 2019. Follow-up labs stable. We will monitor the patient's CBC and iron stores, and intervene accordingly if her labs worsen. 3. Chronic atrial fibrillation (HCC) - ICD9: 427.31, ICD10: I48.20 Stable on current medication including Eliquis. Continue management per PCP. 4. Type 2 diabetes mellitus (HCC) - ICD9: 250.00, ICD10: E11.9 Stable on current medications, continue management per PCP. 5. Asthma - ICD9: 493.90, ICD10: J45.20 Stable on current medications, continue management per PCP. 6. Essential hypertension - ICD9: 401.9, ICD10: I10 Stable on current medications, continue management per PCP. 7. Pulmonary nodule - ICD9: 793.11, ICD10: R91.1 On initial PET scan 03/25/2019 there was a small left lower lobe lung nodule with a low level of FDG uptake. Repeat chest CT scans stable, most recently 08/17/2021. The small size and radiographic stability most likely indicate the nodule is benign. At the patient's request surveillance chest CTs have been discontinued, but will reevaluate as indicated if symptoms develop. Reginald Aragon MD documented in this encounter [facility] 09-13-2022 History of Present illness Narrative PATIENT NAME: Kaylie Salomon DATE: 09/13/2022 PRIMARY CARE PHYSICIAN: Dr. Charles Landeros OTHER PHYSICIANS: Dr. Ramon Smith Portions of this encounter note have been copied from Reginald Aragon MD note from 03/14/2021 and has been updated where appropriate, and reflect my current medical decision making from today. CC: This is a 72 year old female with a history of breast cancer, seen for scheduled follow-up. INTERIM HISTORY: Kaylie Salomon returns for scheduled follow-up. She had bronchial pneumonia the end of June and was treated with antibiotics by her PCP, Dr. Landeros. She denies fevers, chills, night sweats and signs/symptoms of infection. She has a chronic cough from asthma. She denies shortness of breath. She denies right chest wall and left breast changes. She denies right chest wall and left breast lumps, bumps and tenderness. She has chronic back pain. She denies any unusual pain. Overall she is doing quite well. MEDICATIONS: potassium chloride 20 mEq TbER TAKE 2 TABLETS BY MOUTH EVERY DAY ADULTS 50 PLUS 0.4-300-250 mg-mcg-mcg tab Take 1 tablet by mouth once daily. FASENRA PEN 30 mg/mL potassium chloride ER (K-DUR, KLOR-CON) 20 mEq tablet Take 2 tablets by mouth once daily. FARXIGA 5 mg tablet metFORMIN (GLUCOPHAGE) 500 mg tablet TK 1 T PO BID predniSONE (DELTASONE) 10 mg tablet TK 3 TS PO QAM FOR 3 DAYS FOR ASTHMA FLARE montelukast (SINGULAIR) 10 mg tablet TK 1 T PO QD ipratropium-albuterol (DUONEB) 0.5 mg-3 mg(2.5 mg base)/3 mL nebu INHALE THE CONTENTS OF 1 VIAL THROUGH NEBULIZER QID NYSTOP powder Apply to affected area twice daily as needed. APPLY TO AFFECTED AREA silver sulfADIAZINE (SILVADENE,THERMAZENE) 1 % cream Apply to affected area twice daily (Patient not taking: Apply to affected area twice daily) albuterol HFA (PROVENTIL HFA, VENTOLIN HFA) 90 mcg/actuation inhaler Inhale 2 Puffs as instructed every 6 hours as needed. pantoprazole DR (PROTONIX) 40 mg tablet Take 40 mg by mouth once daily. loratadine (CLARITIN) 10 mg tablet Take 10 mg by mouth once daily. acetaminophen (TYLENOL) 500 mg tablet Take 1,000 mg by mouth every 6 hours as needed. prochlorperazine (COMPAZINE) 10 mg tablet Take 1 tablet by mouth every 6 hours as needed. (Patient not taking: Reported on 03/14/2022 ) ondansetron (ZOFRAN) 8 mg tablet Take 1 tablet by mouth every 8 hours as needed for Nausea/Vomiting. ELIQUIS 5 mg tab(s) Take 5 mg by mouth twice daily. atorvastatin (LIPITOR) 40 mg tablet Take 40 mg by mouth once daily. VITAMIN D-3 2,000 unit cap 2,000 Units once daily. ADVAIR DISKUS 500-50 mcg/dose dsdv 1 Puff twice daily. fluticasone (FLONASE) 50 mcg/actuation nasal spray 2 Sprays once daily. furosemide (LASIX) 20 mg tablet Take 20 mg by mouth once daily. losartan (COZAAR) 100 mg tablet Take 100 mg by mouth once daily. metoprolol tartrate, short acting, (LOPRESSOR) 50 mg tablet Take 50 mg by mouth twice daily. WOMEN'S MULTIVITAMIN 18 mg-400 mcg- 500 mg-50 mcg tab TK 1 T PO D sertraline (ZOLOFT) 50 mg tablet Take 50 mg by mouth once daily. SPIRIVA RESPIMAT 1.25 mcg/actuation mist Inhale 2 Puffs as instructed once daily. ALLERGIES: Clarithromycin, Conjugated Estrogens, Neosporin [Rtdekmnu-Pmoggnkwdn-Zdfhoomdr], Paclitaxel, Peanut, Penicillins, and Sulfa (Sulfonamide Antibiotics) PAST MEDICAL HISTORY: PAST MEDICAL HISTORY Diagnosis Date AF (atrial fibrillation) ([facility]) Asthma Breast cancer ([facility]) 02/[address] Landeros COPD (chronic obstructive pulmonary disease) ([facility]) Edema Hyperlipidemia Hypertension OA (osteoarthritis of spine) Port-A-Cath in place PAST SURGICAL HISTORY: PAST SURGICAL HISTORY Procedure Laterality Date CARDIAC CATH 12/2018 PORTOCATH PLACEMENT REVIEW OF SYSTEMS: General: No weight loss, malaise or fevers. HEENT: Negative for frequent or significant headaches, No changes in hearing or vision, no nose bleeds or other nasal problems Respiratory: Negative for cough, wheezing or shortness of breath. Cardiovascular: Negative for chest pain, leg swelling or palpitations. GI: Negative for abdominal discomfort, blood in stools or black stools or change in bowel habits. : No history of dysuria, frequency or incontinence. Musculoskeletal: Negative for: joint pain or swelling, back pain and muscle pain. Skin: Negative for lesions, rash and itching. Hematology/Lymphology: Negative for prolonged bleeding, bruising easily or swollen nodes. Neuro: No history of headaches, syncope, paralysis, seizures or tremors. PHYSICAL EXAM: Vitals: BP 120/68 Pulse 93 Temp 36.4 C (97.6 F) (Temporal) Resp 16 Ht 167.7 cm (5' 6.02 ) Wt 120.5 kg (265 lb 9.6 oz) SpO2 100% BMI 42.84 kg/m ECOC 0 Exam limited to gross visualization where appropriate due to COVID-19. Gen.: This is an age-appropriate patient in no acute distress. Head: Appears atraumatic with no visible lesions. Eyes: Pupils equally round and reactive to light, extraocular muscles are intact. Neck: Supple. Mouth: Mucous membranes appeared to be moist. Respiratory: Appears to be respiring comfortably. Neurologic: Nonfocal to gross visualization. Alert and oriented 3. Psychiatric: No evidence of inappropriate anxiety or depression. Skin: Visible areas of skin without rash, lesions, wounds or petechiae. Lymph Nodes: No Submandibular, cervical, supraclavicular, axillary, or inguinal lymphadenopathy present Breast: Right breast mastectomy scar without lesion. No masses/tenderness/discharge, No skin changes LABORATORY DATA: Hemoglobin (g/dL) Date Value 09/13/2022 11.7 08/17/2021 11.9 Hematocrit (%) Date Value 09/13/2022 38.1 08/17/2021 38.0 WBC (k/uL) Date Value 09/13/2022 10.01 08/17/2021 5.77 Platelet Count (k/uL) Date Value 09/13/2022 267 08/17/2021 253 RADIOLOGY/OTHER STUDIES: 06/14/2022 Left Diagnostic Mammogram ([facility]) Findings: Diagnostic category 2-benign finding: Left breast: No significant suspicious finding. Scattered benign-appearing nodules are present. No significant change has occurred. 08/17/2021 CT CHEST IMPRESSION: 1. Stable posttreatment changes, as described above. 2. Stable appearance of left lower lobe 5 mm nodule. No new or enlarging nodules are seen. 3. No evidence of bulky intrathoracic lymphadenopathy. 06/13/2021 Left Diagnostic Mammogram ([facility]) No significant suspicious finding. Scattered benign-appearing nodules are present. No significant change has occurred. Routine mammogram and clinical evaluation in 12 months recommended. 08/01/2020 CT CHEST IMPRESSION: 1. Progression of patchy subpleural right upper lobe and middle lobe opacities, likely on the basis of interval radiation therapy, as above. 2. 5 mm left lower lobe nodule, stable. 3. No substantial intrathoracic adenopathy is appreciated. 4. Postoperative changes involving the right breast and right axilla. Interval resolution of the previously identified fluid collection within the right axilla. 08/01/2020 CT ABD/PELVIS IMPRESSION: Somewhat limited examination, as above. Stable CT examination of the abdomen and pelvis as above. No evidence for metastatic disease. 12/29/2018 Echocardiogram Within normal limits, LVEF 55% 03/25/[address] IMPRESSION: 1. Neck: No suspicious hypermetabolic foci 2. Chest: Diffuse increased uptake associated with right breast region cutaneous thickening. Hypermetabolic focus in the right breast. Findings suspicious for neoplasm. Hypermetabolic right axillary lymphadenopathy. left lower lobe lung nodule associated with low-level mild uptake. 3. Abdomen and pelvis: No evidence of FDG avid metastasis 4. Skeleton: No hypermetabolic osseous lesions ASSESSMENT/PLAN: 1. 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 Status post right mastectomy 04/03/2019. Postop the patient received adjuvant chemotherapy with TCHP x 6 cycles 05/06/2019 through 08/24/2019 (chemotherapy held for cycle 6 due to toxicity). The patient then continued adjuvant Herceptin x1 year which completed 04/14/2020. The patient received adjuvant chest wall radiation therapy ([facility]) 10/05/2019 through 11/06/2019. Currently the patient has no evidence of disease. At this time we will continue routine follow-up. The patient will return in 6 months for follow-up. We will continue with a yearly surveillance left-sided mammogram each May. We will further stage as indicated if suspicious signs or symptoms develop. 2. History of iron deficiency anemia - ICD9: 280.8, ICD10: D50.8 Iron deficiency anemia discovered June 2019, most likely secondary to occult blood loss. Status post IV iron x2 June 2019. Follow-up labs stable. We will monitor the patient's CBC and iron stores, and intervene accordingly if her labs worsen. 3. Chronic atrial fibrillation (HCC) - ICD9: 427.31, ICD10: I48.20 Stable on current medication including Eliquis. Continue management per PCP. 4. Type 2 diabetes mellitus (HCC) - ICD9: 250.00, ICD10: E11.9 Stable on current medications, continue management per PCP. 5. Asthma - ICD9: 493.90, ICD10: J45.20 Stable on current medications, continue management per PCP. 6. Essential hypertension - ICD9: 401.9, ICD10: I10 Stable on current medications, continue management per PCP. 7. Pulmonary nodule - ICD9: 793.11, ICD10: R91.1 On initial PET scan 03/25/2019 there was a small left lower lobe lung nodule with a low level of FDG uptake. Repeat chest CT scans stable, most recently 08/17/2021. The small size and radiographic stability most likely indicate the nodule is benign. At the patient's request surveillance chest CTs have been discontinued, but will reevaluate as indicated if symptoms develop. Samantha Benitez APRN.CHETNA documented in this encounter [facility] 03-14-2022 History of Present illness Narrative PATIENT NAME: Kaylie Salomon DATE: 03/14/2022 PRIMARY CARE PHYSICIAN: Dr. Charles Landeros OTHER PHYSICIANS: Dr. Ramon Smith Portions of this encounter note have been copied from my note from 09/06/2021 and has been updated where appropriate, and reflect my current medical decision making from today. CC: This is a 72 year old female with a history of breast cancer, seen for scheduled follow-up. INTERIM HISTORY: Since the patient's last visit here he has had no other significant medical changes. Overall she feels quite well. She denies any cough, shortness of breath or pulmonary symptoms. No unusual pain. MEDICATIONS: potassium chloride 20 mEq TbER TAKE 2 TABLETS BY MOUTH EVERY DAY ADULTS 50 PLUS 0.4-300-250 mg-mcg-mcg tab Take 1 tablet by mouth once daily. FASENRA PEN 30 mg/mL potassium chloride ER (K-DUR, KLOR-CON) 20 mEq tablet Take 2 tablets by mouth once daily. FARXIGA 5 mg tablet metFORMIN (GLUCOPHAGE) 500 mg tablet TK 1 T PO BID predniSONE (DELTASONE) 10 mg tablet TK 3 TS PO QAM FOR 3 DAYS FOR ASTHMA FLARE montelukast (SINGULAIR) 10 mg tablet TK 1 T PO QD ipratropium-albuterol (DUONEB) 0.5 mg-3 mg(2.5 mg base)/3 mL nebu INHALE THE CONTENTS OF 1 VIAL THROUGH NEBULIZER QID NYSTOP powder Apply to affected area twice daily as needed. APPLY TO AFFECTED AREA silver sulfADIAZINE (SILVADENE,THERMAZENE) 1 % cream Apply to affected area twice daily albuterol HFA (PROVENTIL HFA, VENTOLIN HFA) 90 mcg/actuation inhaler Inhale 2 Puffs as instructed every 6 hours as needed. pantoprazole DR (PROTONIX) 40 mg tablet Take 40 mg by mouth once daily. loratadine (CLARITIN) 10 mg tablet Take 10 mg by mouth once daily. acetaminophen (TYLENOL) 500 mg tablet Take 1,000 mg by mouth every 6 hours as needed. prochlorperazine (COMPAZINE) 10 mg tablet Take 1 tablet by mouth every 6 hours as needed. ondansetron (ZOFRAN) 8 mg tablet Take 1 tablet by mouth every 8 hours as needed for Nausea/Vomiting. ELIQUIS 5 mg tab(s) Take 5 mg by mouth twice daily. atorvastatin (LIPITOR) 40 mg tablet Take 40 mg by mouth once daily. VITAMIN D-3 2,000 unit cap 2,000 Units once daily. ADVAIR DISKUS 500-50 mcg/dose dsdv 1 Puff twice daily. fluticasone (FLONASE) 50 mcg/actuation nasal spray 2 Sprays once daily. furosemide (LASIX) 20 mg tablet Take 20 mg by mouth once daily. losartan (COZAAR) 100 mg tablet Take 100 mg by mouth once daily. metoprolol tartrate, short acting, (LOPRESSOR) 50 mg tablet Take 50 mg by mouth twice daily. WOMEN'S MULTIVITAMIN 18 mg-400 mcg- 500 mg-50 mcg tab TK 1 T PO D sertraline (ZOLOFT) 50 mg tablet Take 50 mg by mouth once daily. SPIRIVA RESPIMAT 1.25 mcg/actuation mist Inhale 2 Puffs as instructed once daily. ALLERGIES: Clarithromycin, Conjugated Estrogens, Neosporin [Szzpfudc-Dkfbngokeh-Ocbxnnqxt], Paclitaxel, Peanut, Penicillins, and Sulfa (Sulfonamide Antibiotics) PAST MEDICAL HISTORY: PAST MEDICAL HISTORY Diagnosis Date AF (atrial fibrillation) ([facility]) Asthma Breast cancer ([facility]) 02/[address] Landeros COPD (chronic obstructive pulmonary disease) ([facility]) Edema Hyperlipidemia Hypertension OA (osteoarthritis of spine) Port-A-Cath in place PAST SURGICAL HISTORY: PAST SURGICAL HISTORY Procedure Laterality Date CARDIAC CATH 12/2018 PORTOCATH PLACEMENT REVIEW OF SYSTEMS: General: No weight loss, malaise or fevers. HEENT: Negative for frequent or significant headaches, No changes in hearing or vision, no nose bleeds or other nasal problems Respiratory: Negative for cough, wheezing or shortness of breath. Cardiovascular: Negative for chest pain, leg swelling or palpitations. GI: Negative for abdominal discomfort, blood in stools or black stools or change in bowel habits. : No history of dysuria, frequency or incontinence. Musculoskeletal: Negative for: joint pain or swelling, back pain and muscle pain. Skin: Negative for lesions, rash and itching. Hematology/Lymphology: Negative for prolonged bleeding, bruising easily or swollen nodes. N: No history of headaches, syncope, paralysis, seizures or tremors. PHYSICAL EXAM: Vitals: BP 114/76 Pulse 98 Temp 36.6 C (97.8 F) (Temporal) Resp 16 Ht 167.7 cm (5' 6.02 ) Wt 120.6 kg (265 lb 12.8 oz) SpO2 95% BMI 42.87 kg/m ECOC 0 Exam limited to gross visualization where appropriate due to COVID-19. Gen.: This is an age-appropriate patient in no acute distress. Head: Appears atraumatic with no visible lesions. Eyes: Pupils equally round and reactive to light, extraocular muscles are intact. Neck: Supple. Mouth: Mucous membranes appeared to be moist. Respiratory: Appears to be respiring comfortably. Neurologic: Nonfocal to gross visualization. Alert and oriented 3. Psychiatric: No evidence of inappropriate anxiety or depression. Skin: Visible areas of skin without rash, lesions, wounds or petechiae. Lymph Nodes: No Submandibular, cervical, supraclavicular, axillary, or inguinal lymphadenopathy present Breast: Right breast mastectomy scar without lesion. No masses/tenderness/discharge, No skin changes LABORATORY DATA: Hemoglobin (g/dL) Date Value 03/14/2022 12.5 08/17/2021 11.9 Hematocrit (%) Date Value 03/14/2022 39.9 08/17/2021 38.0 WBC (k/uL) Date Value 03/14/2022 9.43 08/17/2021 5.77 Platelet Count (k/uL) Date Value 03/14/2022 264 08/17/2021 253 RADIOLOGY/OTHER STUDIES: 08/17/2021 CT CHEST IMPRESSION: 1. Stable posttreatment changes, as described above. 2. Stable appearance of left lower lobe 5 mm nodule. No new or enlarging nodules are seen. 3. No evidence of bulky intrathoracic lymphadenopathy. 06/13/2021 Left Diagnostic Mammogram ([facility]) No significant suspicious finding. Scattered benign-appearing nodules are present. No significant change has occurred. Routine mammogram and clinical evaluation in 12 months recommended. 08/01/2020 CT CHEST IMPRESSION: 1. Progression of patchy subpleural right upper lobe and middle lobe opacities, likely on the basis of interval radiation therapy, as above. 2. 5 mm left lower lobe nodule, stable. 3. No substantial intrathoracic adenopathy is appreciated. 4. Postoperative changes involving the right breast and right axilla. Interval resolution of the previously identified fluid collection within the right axilla. 08/01/2020 CT ABD/PELVIS IMPRESSION: Somewhat limited examination, as above. Stable CT examination of the abdomen and pelvis as above. No evidence for metastatic disease. 12/29/2018 Echocardiogram Within normal limits, LVEF 55% 03/25/[address] IMPRESSION: 1. Neck: No suspicious hypermetabolic foci 2. Chest: Diffuse increased uptake associated with right breast region cutaneous thickening. Hypermetabolic focus in the right breast. Findings suspicious for neoplasm. Hypermetabolic right axillary lymphadenopathy. left lower lobe lung nodule associated with low-level mild uptake. 3. Abdomen and pelvis: No evidence of FDG avid metastasis 4. Skeleton: No hypermetabolic osseous lesions ASSESSMENT/PLAN: 1. 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 Status post right mastectomy 04/03/2019. Postop the patient received adjuvant chemotherapy with TCHP x 6 cycles 05/06/2019 through 08/24/2019 (chemotherapy held for cycle 6 due to toxicity). The patient then continued adjuvant Herceptin x1 year which completed 04/14/2020. The patient received adjuvant chest wall radiation therapy ([facility]) 10/05/2019 through 11/06/2019. Currently the patient has no evidence of disease. At this time we will continue routine follow-up. The patient will return in 6 months for follow-up. We will continue with a yearly surveillance left-sided mammogram each May. We will further stage as indicated if suspicious signs or symptoms develop. 2. History of iron deficiency anemia - ICD9: 280.8, ICD10: D50.8 Iron deficiency anemia discovered June 2019, most likely secondary to occult blood loss. Status post IV iron x2 June 2019. Follow-up labs stable. We will monitor the patient's CBC and iron stores, and intervene accordingly if her labs worsen. 3. Chronic atrial fibrillation (HCC) - ICD9: 427.31, ICD10: I48.20 Stable on current medication including Eliquis. Continue management per PCP. 4. Type 2 diabetes mellitus (HCC) - ICD9: 250.00, ICD10: E11.9 Stable on current medications, continue management per PCP. 5. Asthma - ICD9: 493.90, ICD10: J45.20 Stable on current medications, continue management per PCP. 6. Essential hypertension - ICD9: 401.9, ICD10: I10 Stable on current medications, continue management per PCP. 7. Pulmonary nodule - ICD9: 793.11, ICD10: R91.1 On initial PET scan 03/25/2019 there was a small left lower lobe lung nodule with a low level of FDG uptake. Repeat chest CT scans stable, most recently 08/17/2021. The small size and radiographic stability most likely indicate the nodule is benign. At the patient's request surveillance chest CTs have been discontinued, but will reevaluate as indicated if symptoms develop. Reginald Aragon MD documented in this encounter [facility] Evaluation note Diagnosis Malignant neoplasm of overlapping sites of right breast in female, estrogen receptor negative (HCC)- Primary Other iron deficiency anemia [facility] Diagnosis Malignant neoplasm of overlapping sites of right breast in female, estrogen receptor negative (HCC)- Primary Iron deficiency anemia secondary to inadequate dietary iron intake [facility] Diagnosis Malignant neoplasm of overlapping sites of right breast in female, estrogen receptor negative (HCC)- Primary History of iron deficiency Personal history of diseases of blood and blood-forming organs [facility] Diagnosis Malignant neoplasm of overlapping sites of right breast in female, estrogen receptor negative (HCC)- Primary [facility] Diagnosis Malignant neoplasm of overlapping sites of right breast in female, estrogen receptor negative (HCC)- Primary Hx of total mastectomy of right breast Personal history of surgery to other organs documented in this encounter [facility] for referral (narrative)* Diagnostic Procedure Only (Routine) - Pending Review Specialty Diagnoses / Procedures Referred By Contac t Referred To Contact [facility] Diagnoses Malignant neoplasm of overlapping sites of right breast in female, estrogen receptor negative (HCC) Procedures [facility] DIAGNOSTIC MAMMOGRAPHY COMPUTER-AIDED DETCJ Reginald Casas MD [address] [place] [address] [place] [address] [facility] [address] [place] [id number] Referral ID Status Reason Start Date Expiration Date Visits Requested Visits Authorized [id number] Pending Review Auto-Generat ed Referral 03/14/2022 04/13/2023 1 1 [facility] for referral (narrative)* Diagnostic Procedure Only (Routine) - Pending Review Specialty Diagnoses / Procedures Referred By Contjigar t Referred To Contact [facility] Diagnoses Malignant neoplasm of overlapping sites of right breast in female, estrogen receptor negative (HCC) Procedures [facility] LEFT DIAGNOSTIC MAMMOGRAPHY COMPUTER-AIDED DETCJ Shayy Villatoro PA-C [facility] [place] [address] [facility] [address] [place] [address] Referral ID Status Reason Start Date Expiration Date Visits Requested Visits Authorized [id number] Pending Review Auto-Generat ed Referral 06/07/2023 07/06/2024 1 1 [facility] Summary Purpose Family History No Family History Records FoundNo Family History Records FoundNo Family History Records FoundNo Family History Records FoundNo Family History Records FoundNo Family History Records FoundNo Family History Records FoundNo Family History Records FoundNo Family History Records Found Advance Directives No Advanced Directives Records FoundNo Advanced Directives Records FoundNo Advanced Directives Records FoundNo Advanced Directives Records FoundNo Advanced Directives Records FoundNo Advanced Directives Records FoundNo Advanced Directives Records FoundNo Advanced Directives Records FoundNo Advanced Directives Records Found Hospital Course Note MR#: [id number] [facility] Pt. Name: Kaylie Salomon Admitted: 01/31/2019 Discharged: 02/02/2019 Date of : 1950 Physician: Tramaine Sandhu MD DISCHARGE SUMMARY PRIMARY CARE PHYSICIAN: No PCP. CONSULTING SERVICE: None. ADMITTING DIAGNOSES: 1. Ffafx-[id number]-[id number] hypercapnic hypoxic respiratory failure. 2. Atrial fibrillation with rapid ventricular response. 3. Moderate persistent asthma with exacerbation. 4. Productive cough. DISCHARGE DIAGNOSES: 1. Velge-ik-hssstzw hypoxemic/hypercapnic respiratory failure. 2. Moderate persistent asthma with exacerbation. 3. Paroxysmal atrial fibrillation with a rapid ventricular response. 4. Chronic anticoagulation. 5. Moderate obesity. 6. Gastroesophageal reflux disease. 7. Essential hypertension. 8. MRDD. 9. Depression. HOSPITAL COURSE: The patient is a 69-year-old, pleasant, obese female with MRDD and past medical history significant for severe asthma, multiple previous admissions for asthma exacer (more content not included)... Reason for Referral Specialty Diagnoses / Procedures Referred By Contac t Referred To Contact Diagnoses Malignant neoplasm of overlapping sites of right breast in female, estrogen receptor negative (HCC) Hx of total mastectomy of right breast Procedures BREAST PROSTHESIS, MASTECTOMY BRA BREAST PROSTHESIS, MASTECTOMY BRA Reginald Aragon MD [address] [place] [address] [place] [address] Referral ID Status Reason Start Date Expiration Date V isits Requested Visits Authorized [id number] Closed Auto-Generate d Referral 09/12/2023 09/12/2024 1 1 Additional Source Comments INFORMATION SOURCE (unrecogn ized section and content) DATE CREATED AUTHOR 12/05/2018 [facility] DATE CREATED AUTHOR AUTHOR'S ORGANIZ ATION 05/13/2019 [facility] DATE CREATED AUTHOR AUTHOR'S ORGANIZ ATION 09/21/2022 [facility] DATE CREATED AUTHOR AUTHOR'S ORGANIZ ATION 09/14/2023 [facility] DATE CREATED AUTHOR AUTHOR'S ORGANIZ ATION 01/30/2024 [facility] DATE CREATED AUTHOR AUTHOR'S ORGANIZ ATION 02/13/2024 [facility] DATE CREATED AUTHOR AUTHOR'S ORGANIZ ATION 02/26/2024 [facility] DATE CREATED AUTHOR AUTHOR'S ORGANIZ ATION 03/31/2024 [facility] DATE CREATED AUTHOR AUTHOR'S ORGANIZ ATION 04/20/2024 [facility] Source Comments (unrecognize d section and content) In the event this informatio n is protected by the Federal Confidentiality of Alcohol and Drug Abuse Patient Records regulations: The Federal rules restrict any use of the information to criminally investigate or prosecute any alcohol or drug abuse patient.[facility] the event this information is protected by the Federal Confidentiality of Alcohol and Drug Abuse Patient Records regulations: The Federal rules restrict any use of the information to criminally investigate or prosecute any alcohol or drug abuse patient.[facility] the event this information is protected by the Federal Confidentiality of Alcohol and Drug Abuse Patient Records regulations: The Federal rules restrict any use of the information to criminally investigate or prosecute any alcohol or drug abuse patient.[facility] Campus[facility] the event this information is protected by the Federal Confidentiality of Alcohol and Drug Abuse Patient Records regulations: The Federal rules restrict any use of the information to criminally investigate or prosecute any alcohol or drug abuse patient.[facility] Campus[facility] the event this information is protected by the Federal Confidentiality of Alcohol and Drug Abuse Patient Records regulations: The Federal rules restrict any use of the information to criminally investigate or prosecute any alcohol or drug abuse patient.[facility] Campus[facility] the event this information is protected by the Federal Confidentiality of Alcohol and Drug Abuse Patient Records regulations: The Federal rules restrict any use of the information to criminally investigate or prosecute any alcohol or drug abuse patient.[facility] Campus[facility] the event this information is protected by the Federal Confidentiality of Alcohol and Drug Abuse Patient Records regulations: The Federal rules restrict any use of the information to criminally investigate or prosecute any alcohol or drug abuse patient.[facility] CampusIn the event this information is protected by the Federal Confidentiality of Alcohol and Drug Abuse Patient Records regulations: The Federal rules restrict any use of the information to criminally investigate or prosecute any alcohol or drug abuse patient.[facility] Reason for Visit (unrecogniz ed section and content) Reason Comments Breast Cancer 6 month follow up Reason Comments Refill Request Reason Comments Breast Cancer Follow up Reason Comments Breast Cancer 1 year follow up Reason Comments Results Reason Comments Orders Care Teams (unrecognized sec tion and content) Ingot Header Relationship Specialty Start Date End Date Charles Landeros MD [address] [facility] [place] [address] PCP - General Family Practice 03/11/19 Samantha Benitez APRN.SALES TECHNICIAN [address] [place] [address] [place] [address] Physician Laundry Agent Hematology/Oncology 04/27/19 Reginald Aragon MD [address] [facility] [place] [address] Physician Hematology/Oncology 12/07/19 Ingot Header Relationship Specialty Start Date End Date Charles Landeros MD [address] [place] [address] PCP - General Family Medicine 03/11/19 Samantha Benitez, WAFER FABRICATION OPERATOR.SALES TECHNICIAN [address] [facility] [place] [address] Physician Laundry Agent Hematology/Oncology 04/27/19 Reginald Aragon MD [address] [facility] [place] [address] Physician Hematology/Oncology 12/07/19 Ingot Header Relationship Specialty Start Date End Date Charles Landeros MD [address] [place] [address] PCP - General Family Medicine 03/11/19 Samantha Benitez, WAFER FABRICATION OPERATOR.SALES TECHNICIAN [address] [facility] [place] [address] Physician Laundry Agent Hematology/Oncology 04/27/19 Reginald Aragon MD [address] [facility] [place] [address] Physician Hematology/Oncology 12/07/19 Ingot Header Relationship Specialty Start Date End Date Charles Landeros MD [address] [place] [address] PCP - General Family Medicine 03/11/19 Samantha Benitez, WAFER FABRICATION OPERATOR.SALES TECHNICIAN [address] [facility] [place] [address] Physician Laundry Agent Hematology/Oncology 04/27/19 Reginald Aragon MD [address] [facility] [place] [address] Physician Hematology/Oncology 12/07/19 Ingot Header Relationship Specialty Start Date End Date Charles Landeros MD [address] [place] [address] PCP - General Family Medicine 03/11/19 Samantha Benitez, WAFER FABRICATION OPERATOR.SALES TECHNICIAN [address] [facility] [place] [address] Physician Laundry Agent Hematology/Oncology 04/27/19 Reginald Aragon MD [address] [facility] [place] [address] Physician Hematology/Oncology 12/07/19 Ingot Header Relationship Specialty Start Date End Date Charles Landeros MD [address] [place] [id number] PCP - General Family Medicine 03/11/19 Samantha Benitez, WAFER FABRICATION OPERATOR.SALES TECHNICIAN [address] [facility] [place] [address] Physician Laundry Agent Hematology/Oncology 04/27/19 Reginald Aragon MD [address] [facility] [place] [address] Physician Hematology/Oncology 12/07/19 Ingot Header Relationship Specialty Start Date End Date Charles Landeros MD [address] [place] [address] PCP - General Family Medicine 03/11/19 Samantha Benitez, WAFER FABRICATION OPERATOR.SALES TECHNICIAN [address] [facility] [place] [address] Physician Laundry Agent Hematology/Oncology 04/27/19 Reginald Aragon MD [address] [place] [address] [place] [address] Physician Hematology/Oncology 12/07/19 FOR RECORDS PERTAINING TO PATIENTS WHO ARE OR HAVE BEEN ENROLLED IN A CHEMICAL DEPENDENCY/SUBSTANCEABUSE PROGRAM, SOME INFORMATION MAY BE OMITTED. This clinical summary was aggregated from multiple sources. Caution should be exercised in using it in the provision of clinical care. This summary normalizes information from multiple sources, and as a consequence, information in this document may materially change the coding, format and clinical context of patient data. In addition, data may be omitted in some cases. CLINICAL DECISIONS SHOULD BE BASED ON THE PRIMARY CLINICAL RECORDS. [facility] [employer] [facility]. provides no warranty or guarantee of the accuracy or completeness of information in this document.
--- NOTE | 2024-04-26 17:42 | XR_ITS ---
The [address] [address] Patient Name: RUBI SALOMON MRN: [facility]:[id number] date: 1950 Sex: F Assigned Patient Location: ER Current Patient Location: ED.MAIN Accession/Order Number: [id number] Exam Date: 04/26/2024 18:15 Report Date: 04/26/2024 20:04 At the request of: DEVON NG Procedure: XR hand LT min 3V EXAM: XR hand LT min 3V, XR wrist LT min 3V HISTORY: The patient is a 74-year-old female, fall COMPARISON: None. XR/XR hand LT min 3V IMPRESSION: There is an old healed fracture deformity of the distal left radius. No dislocations or acute or ununited fractures are seen throughout the left hand and wrist. Electronically authenticated by: DRU BAINS Date: 04/26/2024 20:04
--- NOTE | 2024-04-26 17:42 | XR_ITS ---
The [address] [address] Patient Name: RUBI SALOMON MRN: [facility]:[id number] date: 1950 Sex: F Assigned Patient Location: ER Current Patient Location: Accession/Order Number: [id number] Exam Date: 04/26/2024 18:15 Report Date: 04/26/2024 20:08 At the request of: DEVON NG Procedure: XR humerus LT EXAM: XR shoulder LT min 2V, XR humerus LT HISTORY: The patient is a 74-year-old female, fall COMPARISON: None. FINDINGS: There is an acute surgical neck fracture of the proximal left humerus. This fracture is displaced by more than 1 cm, making it a Neer 2 part fracture. No fractures or cortical discontinuities are seen throughout the more distal length of the left humeral diaphysis. No fractures or cortical discontinuities are seen within the clavicle or scapula. The acromioclavicular joint is maintained. The humeral head is inferiorly subluxated relative to the glenoid, suggesting the presence of a hemarthrosis. There does not appear to be a power dislocation of the glenohumeral joint. XR/XR humerus LT IMPRESSION: Neer 2 part fracture of the proximal left humerus. Electronically authenticated by: DRU BAINS Date: 04/26/2024 20:08
--- NOTE | 2024-04-26 17:42 | XR_ITS ---
The [address] [address] Patient Name: RUBI SALOMON MRN: [facility]:[id number] date: 1950 Sex: F Assigned Patient Location: ER Current Patient Location: Accession/Order Number: [id number] Exam Date: 04/26/2024 18:15 Report Date: 04/26/2024 20:08 At the request of: DEVON NG Procedure: XR shoulder LT min 2V EXAM: XR shoulder LT min 2V, XR humerus LT HISTORY: The patient is a 74-year-old female, fall COMPARISON: None. FINDINGS: There is an acute surgical neck fracture of the proximal left humerus. This fracture is displaced by more than 1 cm, making it a Neer 2 part fracture. No fractures or cortical discontinuities are seen throughout the more distal length of the left humeral diaphysis. No fractures or cortical discontinuities are seen within the clavicle or scapula. The acromioclavicular joint is maintained. The humeral head is inferiorly subluxated relative to the glenoid, suggesting the presence of a hemarthrosis. There does not appear to be a power dislocation of the glenohumeral joint. XR/XR shoulder LT min 2V IMPRESSION: Neer 2 part fracture of the proximal left humerus. Electronically authenticated by: DRU BAINS Date: 04/26/2024 20:08
[2024-04-26] MEDS: ACETAMINOPHEN 500 MG TABLET 1000 MG PO (19:56)
--- NOTE | 2024-04-26 20:26 | ED_ITS ---
HPI HPI - Extremity Injury (Upper) General Chief Complaint: Extremity Injury, Upper Stated Complaint: Fall Time Seen by Provider: 04/26/24 18:14 Mode of arrival: walk-in Limitations: no limitations History of Present Illness HPI narrative: Pleasant 74-year-old female presents here with chief complaint of left upper extremity injury. Patient was with a caregiver yesterday and accidentally tripped while out at an event. Care with software analyst states she stood up and had no pain and complaining no pain or discomfort throughout the night or at home last evening. She did use her extremity. Patient is MRDD and has nursing staff, and daily as well as 8-hour the fall was witnessed. Extremity is neurovascular intact soft tissue swelling of the left hand is noted as well as bruising up into the humerus area. Patient states she broke her wrist several years ago as a child. Nursing staff came and saw patient today and noticed significant swelling to hand and bruising left upper extremity. Related Data Home Medications ?Medication ?Instructions ?Recorded ?Confirmed albuterol 90 mcg/actuation aerosol 2 mcg inhalation QID 04/26/24 04/26/24 inhaler apixaban 5 mg tablet (Eliquis) 5 mg PO BID 04/26/24 04/26/24 atorvastatin 40 mg tablet 40 mg PO .hs 04/26/24 04/26/24 benralizumab 30 mg/mL subcutaneous 30 mg subcut .every eight weeks 04/26/24 04/26/24 auto-injector (Fasenra Pen) dapagliflozin propanediol 10 mg 10 mg PO DAILY 04/26/24 04/26/24 tablet (Farxiga) fluticasone 250 mcg-salmeterol 50 1 inh inhalation DAILY 04/26/24 04/26/24 mcg/dose blistr powdr for inhalation (Advair Diskus) furosemide 20 mg tablet 40 mg PO DAILY 04/26/24 04/26/24 loratadine 10 mg tablet 10 mg PO DAILY 04/26/24 04/26/24 losartan 100 mg tablet 50 mg PO .hs 04/26/24 04/26/24 metformin 500 mg tablet 500 mg PO BID 04/26/24 04/26/24 metoprolol tartrate 100 mg tablet 100 mg PO BID 04/26/24 04/26/24 montelukast 10 mg tablet 10 mg PO .hs 04/26/24 04/26/24 pantoprazole 20 mg tablet,delayed 40 mg PO DAILY 04/26/24 04/26/24 release sertraline 50 mg tablet 50 mg PO .hs 04/26/24 04/26/24 Allergies Allergy/AdvReac Type Severity Reaction Status Date / Time bromelains Allergy Mild Rash Verified 04/26/24 17:36 clarithromycin Allergy Mild Rash Verified 04/26/24 17:36 peanut Allergy Mild Hives Verified 04/26/24 17:36 conjagated estrogens Allergy Mild Rash Uncoded 04/26/24 17:36 racitracin Allergy Mild Rash Uncoded 04/26/24 17:36 Opioid HPI Opioid Management Most Recent Pain and Opioid Data: No Data to Display Review of Systems 2 ROS Narrative All Systems are negative except as noted/marked.All systems reviewed and otherwise negative Exam Narrative Exam Narrative: All Systems are negative except as noted/marked.All systems reviewed and otherwise negative Nurses note and vital signs reviewed and patient is not hypoxic. General: The patient appears well and in no apparent distress. Patient is resting comfortably on cart. Skin: Warm, dry, no pallor noted. There is no rash noted. Head: Normocephalic, atraumatic Respiratory: Patient is in no distress, no accessory muscle use, lungs are clear to auscultation, no wheezing, rales or rhonchi. Chest Wall: No acute deformity or bruising noted Back: non-tender, no CVA tenderness bilaterally to percussion. GI: Normal bowel sounds, no tenderness to palpation, no masses appreciated. No rebound, guarding, or rigidity noted. Musculoskeletal: Extremity bruising ecchymosis, soft tissue swelling of the left hand or wrist, neurovascular intact good capillary fill distally in the hands noted. The patient has no evidence of calf tenderness, no pitting edema, symmetrical pulses noted bilaterally Neurological: A&O x4, normal speech Psychiatric: Cooperative Constitutional Vital Signs, click to edit/add: Last Vital Signs Temp 98.3 F 04/26/24 17:30 Pulse 86 04/26/24 17:30 Resp 16 04/26/24 17:30 BP 152/82 H 04/26/24 17:30 Pulse Ox 98 04/26/24 17:30 O2 Del Method Room Air 04/26/24 17:30 Course Vital Signs Vital signs: Vital Signs Temperature 98.3 F 04/26/24 17:30 Pulse Rate 86 04/26/24 17:30 Respiratory Rate 16 04/26/24 17:30 Blood Pressure 152/82 H 04/26/24 17:30 Pulse Oximetry 98 04/26/24 17:30 Oxygen Delivery Method Room Air 04/26/24 17:30 Temperature 98.3 F 04/26/24 17:30 Pulse Rate 86 04/26/24 17:30 Respiratory Rate 16 04/26/24 17:30 Blood Pressure 152/82 H 04/26/24 17:30 Pulse Oximetry 98 04/26/24 17:30 Oxygen Delivery Method Room Air 04/26/24 17:30 MDM - Extremity Injury (Upper) MDM Narrative Medical decision making narrative: Presents here with a chief complaint of left upper extremity injury from a fall that occurred yesterday. Caregiver is here that was with her and witnessed the fall. She had no head or neck injury or pain. Patient has significant soft tissue swelling to the left wrist and hand and ecchymosis to the humerus area. X-rays read by radiology showed a near acute fracture of the humerus. Chronic changes noted to the wrist significant for previous fracture no acute fracture was noted. I did speak to in regards to this patient's care. He agrees to see the patient tomorrow at 1015 in the office. Long posterior splint was applied by myself and nursing staff. Extremity neurovascular intact for the patient. Rest ice and elevation were discussed. Patient was medicated here with Tylenol and denied any need for stronger pain medicine. She was prophylactically given a prescription for Tylenol 3. Caregiver will take her tomorrow to her orthopedic appointment. Sling was then applied as well. Kimberly nt tolerated well and discharged home with caregiver who is staying the night with her. Differential Diagnosis Differential diagnosis: Likely sprain and strain of wrist, fracture of wrist and fracture of humerus Medical Records Attestation: I reviewed the patient's medical records. Imaging Data wrist: Radiologist's impression: ITS Impressions Wrist X-Ray 04/26/24 00:00 IMPRESSION: There is an old healed fracture deformity of the distal left radius. No dislocations or acute or ununited fractures are seen throughout the left hand and wrist. Electronically authenticated by: DRU BAINS Date: 04/26/2024 20:04 Hand X-Ray 04/26/24 17:42 IMPRESSION: There is an old healed fracture deformity of the distal left radius. No dislocations or acute or ununited fractures are seen throughout the left hand and wrist. Electronically authenticated by: DRU BAINS Date: 04/26/2024 20:04 Humerus X-Ray 04/26/24 17:42 IMPRESSION: Neer 2 part fracture of the proximal left humerus. Electronically authenticated by: DRU BAINS Date: 04/26/2024 20:08 Shoulder X-Ray 04/26/24 17:42 IMPRESSION: Neer 2 part fracture of the proximal left humerus. Electronically authenticated by: DRU BAINS Date: 04/26/2024 20:08 Discharge Plan Discharge Stand Alone Forms: Portal Instructions Chief Complaint: Extremity Injury, Upper Clinical Impression: Fracture of humerus, Sprain and strain of wrist Patient Disposition: Home, Self-Care Time of Disposition Decision: 20:32 Condition: Good Prescriptions / Home Meds: No Action albuterol 90 mcg/actuation aerosol 2 mcg inhalation QID Eliquis 5 mg tablet 5 mg PO BID atorvastatin 40 mg tablet 40 mg PO .hs Fasenra Pen 30 mg/mL auto-injector 30 mg SUBCUT .every eight weeks dapagliflozin propanediol [Farxiga] 10 mg tablet 10 mg PO DAILY fluticasone propion-salmeterol [Advair Diskus] 250-50 mcg/dose blister with device 1 inh INHALATION DAILY furosemide 20 mg tablet 40 mg PO DAILY metformin 500 mg tablet 500 mg PO BID metoprolol tartrate 100 mg tablet 100 mg PO BID montelukast 10 mg tablet 10 mg PO .hs loratadine 10 mg tablet 10 mg PO DAILY losartan 100 mg tablet 50 mg PO .hs pantoprazole 20 mg tablet,delayed release (DR/EC) 40 mg PO DAILY sertraline 50 mg tablet 50 mg PO .hs Print Language: Mohawk Instructions: Wrist Injury (ED), Arm Fracture in Adults (ED), Sprain (ED), How to Use a Sling (ED), P.R.I.C.E. Treatment (ED) Referrals: Jason Oliva MD [Physician] - 04/27/24 10:15 am AKIL FLORES [Primary Care Provider] - 1 week
== END 2024-04-26 21:00 | disposition home or self-care (01) ==
PROVIDERS: Emergency Provider Emergency Medicine; PCP Family Medicine
DX: S42.202A Unspecified fracture of upper end of left humerus, initial encounter for closed fracture (principal); S63.502A Unspecified sprain of left wrist, initial encounter; W01.10XA Fall on same level from slipping, tripping and stumbling with subsequent striking against unspecified object, initial encounter; F79 Unspecified intellectual disabilities
CPT/HCPCS: 29105; 73030; 73060; 73110; 73130; 99283

== ENCOUNTER 2024-05-11 09:38 | Outpatient (OUT) | payer MEDICARE, MEDICAID, SELFPAY ==
--- NOTE | 2024-05-11 | XR_ITS ---
The [address] [address] Patient Name: RUBI SALOMON MRN: [id number] date: 1950 Sex: F Assigned Patient Location: Current Patient Location: Accession/Order Number: [id number] Exam Date: 05/11/2024 09:43 Report Date: 05/13/2024 06:32 At the request of: DEEPTI PHELPS Procedure: XR shoulder LT min 2V PROCEDURE: XR shoulder LT min 2V HISTORY: LEFT SHOULDER PAIN COMPARISON: XR shoulder left 04/26/2024 FINDINGS: BONES:Prior fracture of surgical neck of humerus with impaction into the humeral head. Narrowing of the glenohumeral joint space with subchondral sclerosis. Separate 2.4 cm ossification along the inferior medial margin of humeral head. SOFT TISSUES:No visible soft tissue swelling. EFFUSION:None visible. OTHER: Negative. XR/XR shoulder LT min 2V IMPRESSION: 1. Comminuted, impacted fracture of the humeral neck; slightly changed in position compared to prior study. 2. Moderate-marked degenerative joint disease. Electronically authenticated by: DEEPTI MALLORY Date: 05/13/2024 06:32
== END 2024-05-11 09:39 | disposition home or self-care (01) ==
LOC: EC 09:38
PROVIDERS: PCP Family Medicine; Visit Provider Orthopaedic Surgery
DX: S42.295D Other nondisplaced fracture of upper end of left humerus, subsequent encounter for fracture with routine healing (principal)
CPT/HCPCS: 73030

== ENCOUNTER 2024-06-08 11:35 | Outpatient (OUT) | payer MEDICARE, MEDICAID, SELFPAY ==
--- NOTE | 2024-06-08 | XR_ITS ---
The [address] [address] Patient Name: RUBI SALOMON MRN: [id number] date: 1950 Sex: F Assigned Patient Location: Current Patient Location: Accession/Order Number: [id number] Exam Date: 06/08/2024 11:48 Report Date: 06/09/2024 19:07 At the request of: DEEPTI PHELPS Procedure: XR shoulder LT min 2V EXAM: XR shoulder LT min 2V HISTORY: LEFT SHOULDER PAIN COMPARISON: 05/11/2024 FINDINGS/IMPRESSION: 1. Transverse fracture of the left proximal humerus. There is impaction of the lateral aspect of the fracture measuring approximately 2.9 cm. 2. Normal alignment of the acromioclavicular joint. 3. Pulmonary vascular congestion. 4. Ossific density medial to the glenohumeral joint. Electronically authenticated by: KATHY COTTON Date: 06/09/2024 19:07
== END 2024-06-08 11:36 | disposition home or self-care (01) ==
LOC: EC 11:35
PROVIDERS: PCP Family Medicine; Visit Provider Orthopaedic Surgery
DX: S42.295D Other nondisplaced fracture of upper end of left humerus, subsequent encounter for fracture with routine healing (principal)
CPT/HCPCS: 73030

== ENCOUNTER 2024-06-10 13:22 | Outpatient (OUT) | payer MEDICARE, MEDICAID, SELFPAY ==
--- NOTE | 2024-06-10 | MM_ITS ---
Patient Name: RUBI SALOMON MR#: [id number] : 1950 Exam Date: 06/10/2024 Ordering Doctor: DR RUKHSANA BROWNING M.D. RADIOLOGY REPORT PROCEDURE: MM TOMOSYNTHESIS DIAGNOSTIC LT COMPARISON: MG MAMM DX 3D LT CAD, 06/14/2022. MM TOMOSYNTHESIS DIAGNOSTIC LT, 06/27/2023. INDICATIONS: Malignant neoplasm of overlapping Calculator Name NCI Breast Cancer Risk Assessment Tool 5 Year Breast Cancer Risk 2.70% Lifetime Breast Cancer Risk 5.40% Personal Breast Cancer No Personal Ovarian Cancer No Treatments None Family Cancers None LOCATION: [facility] BREAST COMPOSITION: There are scattered areas of fibroglandular density. FINDINGS: DIAGNOSTIC CATEGORY 2--BENIGN FINDING. NO CHANGE FROM COMPARISON. Scattered benign-appearing calcifications are present. LEFT BREAST: No significant suspicious finding. RECOMMENDATIONS: ROUTINE MAMMOGRAM AND CLINICAL EVALUATION IN 12 MONTHS. PLEASE NOTE: A NORMAL MAMMOGRAM DOES NOT EXCLUDE THE POSSIBILITY OF BREAST CANCER. A CLINICALLY SUSPICIOUS PALPABLE LUMP SHOULD BE BIOPSIED. Dictated by: Westley Reynolds MD on 06/10/2024 at 14:36 Approved by: Westley Reynolds MD on 06/10/2024 at 14:37
--- OUTSIDE RECORDS SUMMARY | 2024-06-10 13:54 | XMS_ITS | CCD ---
Author Organization [facility] Care Team Providers Care Halftone Operator Name Role Phone SHEMAR HUDSON Admitting Unavailable SHEMAR HUDSON Attending Unavailable UNKNOWN, PHYSICIAN Referring Unavailable UNKNOWN, PHYSICIAN Primary Care Unavailable ARACELI SANDHU Admitting Unava ilable MEARACELI LONGO Attending Unava ilable UNKNOWN, PHYSICIAN Referring Unavailable UNKNOWN, PHYSICIAN Primary Care Unavailable Charles Landeros MD Primary Care Provider Emmanuel LICENSED INVESTMENT SALES ASSISTANT.STAND UP COMEDIAN, Samantha Unavailable [phone] Reginald Aragon MD Unavailable [phone] Charles Landeros MD Primary Care Provider Emmanuel LICENSED INVESTMENT SALES ASSISTANT.STAND UP COMEDIAN, Samantha Unavailable [phone] Reginald Aragon MD Unavailable Charles Landeros MD Primary Care Provider Emmanuel LICENSED INVESTMENT SALES ASSISTANT.STAND UP COMEDIAN, Samantha Unavailable Reginald Aragon MD Unavailable [phone] NADINE, DR CHARLES Keith Admitting Unavailable NADINE, [...] NADINE, DR CHARLES Keith Primary Care Unavailable ZIEBER, DR DEEPTI Mondragon Consulting Unavailable BRIANA, MITCHEL Admitting Unavailable GABRIELLE LIU Consulting Unavailable BRIANA, MITCHEL Attending Unavailable NADINE, DR CHARLES Keith Primary Care Unavailable BRIANA, MITCHEL Consulting Unavailable REGINALD ARAGON Referring Unavailable NALLELY, REGINALD Mondragon Attending Unavailable NADINE, CHARLES PRAKASH Primary Care Unavailable NALLELY, REGINALD Mondragon Referring Unavailable LANDEROS, CHARLES PRAKASH Primary Care Unavailable NALLELY, REGINALD Mondragon Referring Unavailable REGINALD ARAGON Attending Unavailable NADINE, CHARLES PRAKASH Primary Care Unavailable LANDEROS, CHARLES PRAKASH Primary Care Unavailable REGINALD ARAGON R Referring Unavailable JENSEN CARTER Attending Unavailable Con, Oh Fuentes Attending Unavailable Con, Oh Fuentes Attending Unavailable Con, Oh Fuentes Attending Unavailable Con, Oh Fuentes Attending Unavailable Con, Oh Fuentes Attending Unavailable Inderjit Cha Attending Unavailab Inderjit Hughes Admitting Unavailab le Charles Landeros Primary Care Unavailable CON, OH Fuentes Referring Unavailable CON, OH L Primary Care Unavailable CON, OH L Referring Unavailable CON, OH Fuentes Primary Care Unavailable JEFFERYBRIAN Referring Unavailable CON, OH Fuentes Primary Care Unavailable CON, OH Fuentes Referring Unavailable CON, OH L Primary Care Unavailable DAISYROSA DE LOS SANTOS Referring Unavailable CON, OH Fuentes Primary Care Unavailable ELIF ESPINOZA Referring Unavailable LANDEROSCHARLES Primary Care Unavailable PIETRO ALDRIDGE Attending Unavailable JEFFERYBRIAN Neal Referring Unavailable JEFFERY, BRIAN Referring Unavailable JEFFERY, BRIAN Referring Unavailable MELISSA TORRES Attending Unavailable JEFFERY, BRIAN Attending Unavailable JEFFERY, BRIAN Admitting Unavailable JEFFERY, BRIAN Attending Unavailable OLGAELIF Attending Unavailable JEFFERYBRIAN Attending Unavailable DAISYROSA Attending Unavailable PIETRO ALDRIDGE Attending Unavailable Allergies Allergy Classification Reported Allergen(s) Allergy Type Date of Onset Reaction(s) Facility (3 sources) Penicillin; Translations: [penicillin] Drug Allergy 01-17-20 19 [facility] Repository (5 sources) Sulfonamides (Antibiotic); Translations: [SULFA (SULFONAMIDE ANTIBIOTICS)] Drug allergy (disorder) 01-28-20 10 [facility] Repository (11 sources) bacitracin / neomycin / polymyxin b; Translations: [NEOMYCIN-BACITRAC IN-POLYMYXIN] Drug Allergy 05-06-20 19 Rash [facility] (12 sources) Clarithromycin; Translations: [CLARITHROMYCIN] Drug Allergy 01-28-20 10 Unknown [facility] (11 sources) Estrogens, Conjugated ([facility]); Translations: [CONJUGATED ESTROGENS] Drug Allergy 01-28-20 10 Unknown [facility] (10 sources) PACLitaxel; Translations: [PACLITAXEL] Drug Allergy 08-24-20 Other: See Comments [facility] (11 sources) peanut allergenic extract; Translations: [PEANUT] Drug Allergy 05-06-20 19 Anaphylaxis [facility] (4 sources) Penicillins; Translations: [PENICILLINS] Drug Allergy 05-06-20 19 Rash [facility] (8 sources) Sulfonamides (Antibiotic) Drug Allergy 01-28-20 10 [facility] (7 sources) Penicillins Drug Allergy 05-06-20 Rash [facility] (3 sources) Bacitracin; Translations: [bacitracin] Drug Allergy 05-16-20 [facility] Repository (1 source) peanut; Translations: [Peanuts] Food allergy (disorder) [facility] Repository (3 sources) Shrimp product; Translations: [Shrimp] Food allergy (disorder) 05-07-20 [facility] Repository (1 source) Sulfonamides (Antibiotic); Translations: [sulfa drugs] Propensity to adverse reactions (disorder) [facility] Repository (4 sources) Pineapple; Translations: [Pineapple] Food allergy (disorder) 05-07-20 [facility] Repository (1 source) Clarithromycin Drug Allergy 05-16-[address] [facility] Repository (2 sources) Estrogens, Conjugated ([facility]); Translations: [ESTROGENS, CONJUGATED] Drug Allergy 05-16-[address] [facility] Repository (1 source) Fish Oils Drug Allergy 06-12-[address] [facility] Repository (1 source) Neomycin Drug Allergy 05-16-[address] [facility] Repository (1 source) PACLitaxel Drug Allergy 05-16-[address] [facility] Repository (1 source) peanut allergenic extract Drug Allergy 05-16-[address] [facility] Repository (1 source) Penicillins Drug allergy (disorder) 06-12-[address] [facility] Repository (1 source) Sulfacetamide Drug Allergy 06-12-[address] [facility] Repository (1 source) Sulfonamides (Antibiotic) Drug allergy (disorder) 05-16-[address] [facility] Repository (1 source) Sulfur Drug Allergy 06-12-[address] [facility] Repository (1 source) tree nut, unspecified Drug allergy (disorder) 06-12-[address] [facility] Repository (2 sources) polymyxin B; Translations: [POLYMYXIN B] Drug allergy (disorder) 05-16-[address] [facility] Repository (1 source) Bromelains; Translations: [BROMELAINS] Drug Allergy 04-25-20 [facility] Rep[facility] (1 source) Neomycin; Translations: [NEOMYCIN SULFATE] Drug Allergy 04-25-20 [facility] Rep[facility] Medications Completed/Discontinued Medications Medication Drug Class(es) [...] 1 tablet by zohreh th once daily. [id number] 200 actuat albuterol 0.09 mg/actuat metered dose [...] (1 source) Corticosteroid, beta2-Adrenergic Agonist Start: 09-10-20 BREO ELLIPTA 100-25 mcg/dose inhaler furosemide 20 mg oral tablet (8 sources) Loop Diuretic Start: 01-17-20 19 take 3 tablets by mouth once daily furosemide (LASIX) 20 mg tablet Take 60 mg by mouth once daily. 3 01/16/2019 Active Start: 01-16-2019 take 2 tablets by mo [facility] once daily furosemide (LASIX) 20 mg tablet Take 40 mg by mouth once daily. 3 01/16/2019 Active Start: 01-16-2019 take 1 tablet by zohreh once daily furosemide (LASIX) 20 mg tablet [...] Start: 03-13-2019 take 1 tablet by zohreh twice daily metoprolol tartrate, short acting, (LOPRESSOR) [...] Comment on above: Take 1 tablet by [facility] every 8 hours as needed for Nausea/Vomiting. [...] Start: 12-04-2021 take 2 tablets by mo [facility] once daily potassium chloride 20 mEq TbER TAKE 2 TABLETS BY MOUTH EVERY DAY 180 tablet 0 12/04/2021 Active Start: 02-16-2021 take 2 tablets by mo [facility] once daily potassium chloride ER (K-DUR, KLOR-CON) 20 mEq tablet Take 2 tablets by mouth once daily. 180 tablet 1 02/16/2021 Active Comment on above: Take 2 tablets by mo [facility] once daily. TAKE 2 TABLETS BY [facility] EVERY DAY predniSONE 10 mg oral tablet [...] Comment on above: Take 1 tablet by [facility] every 6 hours as needed. sertraline 50 [...] by mouth once daily. 60 actuat tiotropium 0.04513 mg/actuat inhalation spray (8 sources) Anticholinergic Start: [...] Translations: [Unspecified atrial fibrillation] Onset: 10-24-2023 Chronic Chronic kidney disease (1 source) Chronic kidney disease, unspecified; Translations: [Chronic kidney disease, unspecified] Onset: 05-05-2024 Chronic Congestive heart failure; nonhypertensive (5 sources) Acute on chronic diastolic (congestive) heart failure; Translations: [Chronic diastolic (congestive) heart failure] Onset: 06-18-2023 Chronic Coronary atherosclerosis and other heart disease (1 source) Old myocardial infarction; Translations: [OLD MYOCARDIAL INFARCTION] Onset: 07-25-2022 Chronic Deficiency and other anemia (1 source) Iron deficiency anemia; Translations: [Other iron deficiency anemias] Episodic Diabetes mellitus without complication (2 sources) Type 2 diabetes mellitus without complications; Translations: [TYPE 2 DM WITHOUT COMPLICATIONS] Onset: 07-25-2022 Chronic Disorders of lipid metabolism (1 source) Hyperlipidemia, unspecified; Translations: [Hyperlipidemia, unspecified] Onset: 05-05-2024 Chronic Esophageal disorders (1 source) Gastro-esophageal reflux disease without esophagitis; Translations: [GERD WITHOUT ESOPHAGITIS] Onset: 07-25-2022 Chronic Essential hypertension (3 sources) Essential (primary) hypertension; Translations: [ESSENTIAL PRIMARY HYPERTENSION] Onset: 07-25-2022 Chronic Osteoarthritis (1 source) Unspecified osteoarthritis, unspecified site; Translations: [UNSPECIFIED OSTEOARTHRITIS UNS SITE] Onset: 07-25-2022 Chronic Other aftercare (1 source) Other vermin exterminator (current) drug therapy; Translations: [OTH CLAIM REP CURRENT DRUG THERAPY] Onset: 07-25-2022 Episodic Other lower respiratory disease (1 source) Shortness of breath; Translations: [SHORTNESS OF BREATH] Onset: 07-25-2022 Episodic Other nutritional; endocrine; and metabolic disorders [...] iron deficiency anemias] Onset: 06-17-2019 06-17-2019 Episodic Other injuries and conditions due to external causes (1 source) Unspecified injury of left shoulder and upper arm, initial encounter; Translations: [Unspecified injury of left shoulder and upper arm, initial encounter] Onset: 11-27-2023 Episodic Other non-traumatic joint disorders (1 source) Pain in left shoulder; Translations: [Pain in left shoulder] Onset: 11-27-2023 Episodic Residual codes; unclassified (2 sources) Estrogen receptor negative status [ER-]; Translations: [ESTROGEN RECEPTOR NEGATIVE STATUS] Onset: 04-20-2019 Episodic Unclassified (1 source) COUGH, UNSPECIFIED; Translations: [COUGH, UNSPECIFIED] Onset: 07-23-2022 Results Test Name Value Interpretation Reference Range Facility Orders Onlyon 06-02-2024 Orders Only [id number] Kaylie Salomon 1950 F Date Provider Department Center 06/02/2024 [facility] Family History Problem Relation Age of Onset Heart failure Mother Family Status - Relation Status Age at Mother Normal [facility] BASIC METABOLIC PANLon 05-20 Anion gap [Moles/Vol] 10 mmol/L Normal 5-15 [facility] Comment on above: Performed By: #### 3 0934-4 #### [facility] ([id number]) [address] [place] [address] #### BMP #### [facility] ([id number]) [address], [address] [place] [address] Calcium [Mass/Vol] 9.5 mg/dL Normal 8.5-10.5 [facility] Comment on above: Performed By: #### 3 0934-4 #### [facility] ([id number]) [address] [place] [address] 36856 #### BMP #### [facility] ([id number]) [address] [place] [address] Chloride [Moles/Vol] 96 mmol/L Low 98-109 [facility] Comment on above: Performed By: #### 3 0934-4 #### [facility] ([id number]) [address] [place] [address] 18444 #### BMP #### [facility] ([id number]) [address] [place] [address] CO2 [Moles/Vol] 36 mmol/L High 22-32 [facility] Comment on above: Performed By: #### 3 0934-4 #### [facility] ([id number]) [address] [place] [address]5869 #### BMP #### [facility] ([id number]) [address] [place] [address] Creatinine [Mass/Vol] 1.35 mg/dL High 0.40-1.00 [facility] Comment on above: Result Comment: METH OD TRACEABLE TO IDMS STANDARD Performed By: #### 3 0934-4 #### [facility] ([id number]) [address] [place] [address]5942 #### BMP #### [facility] ([id number]) [address] [place] [address] GFR/1.73 sq M.predicted among non-blacks MDRD (S/P/Bld) [Vol rate/Area] 41 mL/min/{1.73_m2} Low >59 [facility] Comment on above: Result Comment: Reported eGFR is based on the CKD-EPI 2020 equation that does not use a race coefficient. Performed By: #### 3 0934-4 #### [facility] ([id number]) [address] [place] [address] 300[address] #### BMP #### [facility] ([id number]) [address] [place] [address] Glucose [Mass/Vol] 98 mg/dL Normal 65-99 [facility] Comment on above: Performed By: #### 3 0934-4 #### [facility] ([id number]) [address] [place] [address] #### BMP #### [facility] ([id number]) [address] [place] [address] Potassium [Moles/Vol] 4.1 mmol/L Normal 3.5-5.0 [facility] Comment on above: Performed By: #### 3 0934-4 #### [facility] ([id number]) [address] [place] [address]8622 #### BMP #### [facility] ([id number]) [address] [place] [address] Sodium [Moles/Vol] 142 mmol/L Normal 134-146 [facility] Comment on above: Performed By: #### 3 0934-4 #### [facility] ([id number]) [address] [place] [address]7515 #### BMP #### [facility] ([id number]) [address] [facility], [address] [place] [address] Urea nitrogen [Mass/Vol] 30 mg/dL High 5-27 [facility] Comment on above: Performed By: #### 3 0934-4 #### [facility] ([id number]) [address] [place] [address]23 #### BMP #### [facility] ([id number]) [address] [place] [address] Natriuretic peptide B [Mass/ Vol]on 05-20-2024 Natriuretic peptide B (Bld) [Mass/Vol] 359 pg/mL High <100.0 [facility] Comment on above: Performed By: #### 3 0934-4 #### [facility] ([id number]) [address] [place] [address] 89056 #### BMP #### [facility] ([id number]) [address] [place] [address] Office Visiton 05-13-2024 Follow-up visit [id number] Kaylie Salomon 1950 F Date Provider Department Center 05/13/2024 ROSA LÓPEZ [facility] Family History Problem Relation Age of Onset Heart failure Mother Family Status - Relation Status Age at Mother Level of Service:99930 SC OFFICE/OUTPATIENT ESTABLISHED MOD MDM 30 MIN Reason for Visit and Comments: Atrial Fibrillation [80] Congestive Heart Failure [127] Normal [facility] MICROALBUMIN - ALBUMIN:CREAT ININE URINE RATIOon 05-06-2024 ALB/CREAT RATIO 42.4 mg/g creat High 0.0-30.0 [facility] Comment on above: Performed By: #### M ALBU #### [facility] ([id number]) [address] [facility], [address] [place] [address] Albumin DL <= 20 mg/L (U) [Mass/Vol] 0.8 mg/dL Normal 0.0-1.9 [facility] Comment on above: Performed By: #### M ALBU #### [facility] ([id number]) [address] [facility], [address] [place] [address] URINE CREAT 18.87 mg/dL Normal [facility] Comment on above: Performed By: #### M ALBU #### [facility] ([id number]) [address] [facility] [place] [address] PROTEIN CREAT RATIOon 2023 RANDOM URINE PROTEIN 60 mg/L Normal <120 [facility] Comment on above: Performed By: #### U PCR #### [facility] ([id number]) [address] [facility] [facility] [address] [place] [address] U/PRO/FERMENTER RATIO CALC 0.32 High <0.2 [facility] Comment on above: Result Comment: Neph rotic Syndrome is associated with ratios >3.5 Performed By: #### U PCR #### [facility] ([id number]) [address] [facility], [address] [place] [address] URINE CREATININE,RDM 18.77 mg/dL Normal [facility] Comment on above: Performed By: #### U PCR #### [facility] ([id number]) [address] [place] [address] 36on 05-05-2024 36 Patient's caregiver called back and I relayed message per Mirna to restart PM dose of lasix and have labs today. She will also have repeat labs on Saturday and will see Shayy on Saturday, 05/13. Lab orders faxed to [facility] in [place]. Normal [facility] HGB A1C (GLYCO-HGB)on 2023 Glucose [Mass/Vol] 134 mg/dL Normal [facility] Comment on above: Performed By: #### H A1C, 59167-7 #### [facility] ([id number]) [address] [place] [address] HbA1c (Bld) [Mass fraction] 6.3 % High 4.4-5.6 [facility] Comment on above: Result Comment: NOTE ADA Guidelines Result HgbA1c Normal : less than 5.7 % Prediabetes : 5.7 % to 6.4 % Diabetes : > 6.4 % Use with caution in patients with abnormal hemoglobin variants as the half-life of red blood cells and in vivo glycation rates are affected. Performed By: #### H A1C, 30049-3 #### [facility] ([id number]) [address] [place] [address] Lipid 1996 panelon Cholesterol [Mass/Vol] 95 mg/dL Low 150-200 [facility] Comment on above: Performed By: #### H A1C, 92778-5 #### [facility] ([id number]) [address] [place] [address] Cholesterol in HDL [Mass/Vol] 50 mg/dL Normal >39 [facility] Comment on above: Result Comment: HDL <40 mg/dL - High Risk HDL > or = 40mg/dL- Desirable HDL >60 mg/dL - Negative Risk Performed By: #### H A1C, 20184-6 #### [facility] ([id number]) [address] [place] [address] Cholesterol in LDL [Mass/Vol] 30 mg/dL Normal <130 [facility] Comment on above: Result Comment: LDL <100 mg/dL - Desirable LDL >160 mg/dL - High Risk Performed By: #### H A1C, 90874-1 #### [facility] ([id number]) [address] [place] [address] Cholesterol in VLDL [Mass/Vol] 15 mg/dL Normal 0-30 [facility] Comment on above: Performed By: #### H A1C, 27463-0 #### [facility] ([id number]) [address] [place] [address] CHOLESTEROL:HDL 1.9 Normal 1.0-5.0 [facility] Comment on above: Performed By: #### H A1C, 40065-1 #### [facility] ([id number]) [address] [place] [address] Triglyceride [Mass/Vol] 73 mg/dL Normal 27-150 [facility] Comment on above: Performed By: #### H A1C, 98538-3 #### [facility] ([id number]) [address] [facility] [facility] [address] [place] [address] Orders Onlyon 05-05-2024 Orders Only [id number] Kaylie Salomon 1950 F Date Provider Department Center 05/05/2024 928-RADHA JARA AFUA Mckenzie Lashawn Family History Problem Relation Age of Onset Heart failure Mother Family Status - Relation Status Age at Mother Normal [facility] Orders Onlyon 05-04-2024 Orders Only [id number] Kaylie Salomon 1950 Date Provider Department Center 05/04/2024 120-ELIF ESPINOZA Family History Problem Relation Age of Onset Heart failure Mother Family Status - Relation Status Age at Mother Normal [facility] Family Medicine Office/Clini c Noteon 03-30-2024 Family Medicine Office/Clinic Note Family Medicine Office/Clinic Note HPI Staff Kaylie is a 74 year old female presenting for medication check labs 01/08/24 NED 01/09/24 was to follow up with ODILIA, Did drooling improve Pt here today with Ruddy her Caregiver with [employer] Drooling has improved , caregiver states she [...] provided. she will have it done at [facility] in [place]. denies needs at this time. RTC 6 months 2. Hypertensive disorder (I10: Essential (primary) hypertension) BP at goal today 3. BMI 45.0-49.9, adult (Z68.42: Body mass index [BMI] 45.0-49.9, adult) BMI educatin given 4. Non-smoker (Z78.9: Other specified health status) continue not smoking Orders: dapagliflozin, 5 mg = 1 tab(s), Oral, Daily, # 90 tab(s), Refills(s) 3, Pharmacy: [facility] #[id number] predniSONE, 30 mg = 3 tab(s), Oral, Once, take 3 tabs in am for 3 days for asthma flare up, # 9 tab(s), Refills(s) 1, Pharmacy: [facility] #[id number] Follow-up No qualifying data available Problem List/Past Medical History Ongoing Adult BMI 40.0-44.9 kg/sq m Allergic rhinitis Chronic respiratory failure with hypoxia Coronary arteriosclerosis in [place] artery Drooling Gastroesophageal reflux disease Heart failure, systolic and diastolic Hyperlipidemia due to type 2 diabetes mellitus Hypertensive disorder Hypoxemia Iron deficiency anemia secondary to inadequate dietary iron intake 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 [facility] Comment on above: Result Comment: Elec tronically Signed By: Oh Wynne\.br\Date and Time Signed: 03/30/24 12:26 EDT Home [facility] Record[facility] 2023 Home Health Records [id number] 0TIFF [facility] Pre-Visit Planningon 024 Pre-Visit Planning - From: Elif Cabrera To: Oh Wynne; Sent: 03/04/2024 15:13:04 EDT Subject: Pre-Visit Planning Due Date/Time: 03/04/2024 15:13:00 EDT Caller Name: KAYLIE SALOMON; Caller Number: Zee , M Oscar Ratliff. During a pre-visit planning chart review, I noted the following documentation in the medical record: Current Problem List: Drooling and Tremor of both hands. Current Medication List: sertraline 50 mg daily. 01/09/2024 Office Visit Note: Tremor of both hands (R25.1: Tremor, unspecified) patient and caregiver states her psychiatrist from counts include [facility] beds at the [facility] started her on ability due to [...] Score or Psychiatry Consult Notes located in [facility]. Based on your medical judgment, can you [...] feel free to contact me at extension [phone]. Thank you! Elif Deborah, PRINCIPAL WEB DEVELOPER From: Oh Wynne To: Elif Cabrera; Sent: 03/06/2024 08:18:11 EDT Subject: RE: Pre-Visit Planning Caller Name: KAYLIE SALOMON; Caller Number: H , M major depressive disorder, recurrent moderate Normal [facility] Ambulatory Visit Summaryon 0 03-05-2024 Ambulatory Visit [...] 11:20 AM EDT With: Oh Wynne Where: [facility] Invalid Interpretation Code [address] [place] [address]- \.br\ You Need to Complete the Following\.br \ HgbA1c, Blood, Routine collect, 03/05/24, Order for future visit, Lab Collect, Type 2 diabetes mellitus with stage 3b chronic kidney disease [facility] Office/Clini c Noteon 03-05-2024 Family Medicine Office/Clinic [...] of clutter to prevent tripping and/or falling. [place] Advance Directives reviewed. Documents remain at home/ and in patient chart. Patient gets assistance with ADL's and Instrumental ADL's, patient has caregivers that come and stay with her for several hours each day and a daily visiting nurse from [facility]. Cognitive screening completed with memory and clock [...] patient has a visiting RN everyday through [facility]. Medicare provides yearly screening for alcohol and [...] a visiting nurse that comes daily from [facility] and follows with Cardiology, Dr. Gil, every 6 months and more as needed. Last office visit 12/11/23 visit summary notes available in chart for PCP review. Per caregiver patient is going to [facility] to get labs done for cardiology today. 3. Severe persistent asthma, uncomplicated (J45.50: Severe persistent asthma, uncomplicated) Patient takes inhalers as directed, uses PRN nebulizer treatments and inhaler when needed. Follows Dr. Castellon, Otr Truck Driver, yearly and as needed. Patient remains on R/A, o2Sat 92% today, respirations 20, non-labored. Will follow up as needed with Dr. Castellon. 4. Chronic respiratory failure with hypoxia (J96.11: Chronic respiratory failure with hypoxia) See #3. 5. Paroxysmal atrial fibrillation (I48.0: Paroxysmal atrial fibrillation) Follows Animal Nurse, Dr. Gil every 6 months and as needed. Denies SOB, chest pain or irregular heart rhythm. Manages medications, Eliquis and Metoprolol with office visits. Cardiac-/DASH nutritional education handout reviewed with patient and provided. Tries following healthy dietary intake. Last visit office notes are available in medical (more content not included)... [facility] Comment on above: Result Comment: Elec tronically Signed By: Oh Wynne\.br\Date and Time Signed: 03/05/24 13:34 EDT\.br\Electronically Co-Signed By: Myah Ballard LPN\.br\Date and Time Co-Signed: 03/05/24 12:43 EDT Lab Reportson 03-05-2024 Lab Reports [id number]#1.00 TIFF [facility] Patient Educationon 03-05-20 Patient Education Endocrinology Diabetes Mellitus and Foot Care Foot care is an important part of your health, especially when you have diabetes. Diabetes may cause you to have problems because of poor blood flow (circulation) to your feet and legs, which can cause your skin to: ? Become thinner and clothespin drier operator. ? Break more easily. ? Heal more [...] immediately. Where to find more information ? [employer]: www.diabetes.org ? Association of Diabetes [...] provider. Document Revised: 04/06/2021 Document Reviewed: 04/06/2021 [employer] Patient Education ? 2022 [employer] Diabetes Mellitus and Nutrition, Adult When you have diabetes, or diabetes mellitus, it is very important to (more content not included)... Normal [facility] Pre-Visit Planningon 024 Pre-Visit Planning - From: Elif Cabrera To: Oh Wynne; Sent: 03/04/2024 15:22:41 EDT Subject: Pre-Visit Planning Due Date/Time: 03/04/2024 15:22:00 EDT Caller Name: KAYLIE SALOMON; Caller Number: Zee , M Oscar Ratliff. During a pre-visit planning chart [...] feel free to contact me at extension [phone]. Thank you! Elif Cabrera LPN From: Oh Wynne To: Elif Cabrera; Sent: 03/05/2024 08:17:33 EDT Subject: RE: Pre-Visit Planning Caller Name: KAYLIE SALOMON; Caller Number: Zee , M chronic kidney disease stage 3b Normal [address] [place] [address] RAD - CT Reporton 03-05-2024 RAD - CT Report [id number]#1.0 0TIFF Normal [facility] Screenson 03-05-2024 Screens [id number]#1.0 0TIFF Normal [facility] Pre-Visit Planningon 024 Pre-Visit Planning - From: Elif Cabrera To: Oh Wynne; Sent: 03/04/2024 15:01:12 EDT Subject: Pre-Visit Planning Due Date/Time: 03/04/2024 15:01:00 EDT Caller Name: KAYLIE SALOMON; Caller Number: Zee , M Oscar Ratliff. During a pre-visit planning chart review, I noted the following documentation in the medical record: Current Problem List: Malignant neoplasm of lower-outer quadrant of female breast and Malignant neoplasm of unspecified site of unspecified female breast. 03/01/2023 Office Visit Note: Establish Care: History- hx of breast CA. 06/27/2023 Outside Mammography: *No Oncology Consult Notes located in [facility]. Based on your medical judgment, can you [...] feel free to contact me at extension [phone]. Thank you! Elif Cabrera LPN Invalid Interpretation Code 272 [facility] Orders Onlyon 02-25-2024 Orders Only [id number] Kaylie Salomon A 1950 F Date Provider Department Center 02/25/20[facility] Family History Problem Relation Age of Onset Heart failure Mother Family Status - Relation Status Age at Mother Normal [facility] Office Visiton 02-11-2024 Follow-up visit [id number] Kaylie Salomon A 1950 F Date Provider Department Center 02/11/2024 BRIAN DIXON AFUA [facility] Family History Problem Relation Age of Onset Heart failure Mother Family Status - Relation Status Age at Mother Level of Service:19451 SC OFFICE/OUTPATIENT ESTABLISHED LOW MDM 20 MIN Normal [facility] [id number] 02-07-2024 [id number] PRE OP INSTRUCTIONS 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 RUDDY [phone] ARRIVAL TIME 1030 HOLD ELIQUIS 02/10 MEDICATIONS TO TAKE DAY OF SURGERY WITH SIP OF WATER ALBUTEROL INHALER BREO ELLIPTA METOPROLOL PROTONIX RUDDY AGREES TO BRING PT TO [facility] FOR LABS ON 02/10 ASKED NELLIE Trevino RN TO SEND LAB ORDERS TO [place] ON 02/05 HOLD VITAMINS AND SUPPLEMENTS 5 DAYS PRIOR TO PROCEDURE HOLD ALL ANTI INFLAMMATORIES ETC:MOTRIN, ADVIL, ALEVE, FOR 5 DAYS PRIOR TO PROCEDURE IF YOU ARE GOING HOME AFTER YOUR SURGERY OR PROCEDURE, FOR YOUR SAFETY, YOUR SURGERY WILL BE CANCELLED IF BOTH OF THE FOLLOWING ARE NOT AVAILABLE: 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 Do not wear perfume, make-up, nail salvadorean, or lotions on the day of your [...] need to make any changes, please call [phone]. Notify your surgeon if you develop any illness such as a cold, cough, fever, sore throat or vomiting between now and your surgery. Thank you for entrusting us with your care. [facility] Surgical Services Team Normal [facility] Orders Onlyon 02-07-2024 Orders Only [id number] Kaylie Salomon 1950 F Date Provider Department Center 02/07/20241986-FILIPE ANSARI [facility] VASC LAB HI HeartVAS Family History Problem Relation Age of Onset Heart failure Mother Family Status - Relation Status Age at Mother Normal [facility] Home Health Recordson 2023 Home Health Records [id number]#1.0 0TIFF Normal [facility] Ambulatory Visit Summaryon 0 01-09-2024 Ambulatory Visit Summary KAYLIE SALOMON :1950 Visit Date:01/09/2024 Ambulatory Visit Instructions Your Diagnosis Tremor of both hands Drooling Your Care Team Attending Physician - Oh Wynne Primary Care Physician - Oh Wynne This Is Your Medications List [facility] Prescription (TRUE METRIX BLOOD GLUCOSE TEST STRP) [...] Follow-Up Appointments 2023 11:00 AM EDT Where: 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 Normal [facility] Comment on above: Result Comment: Elec tronically Signed By: Con INTERNATIONAL MARKETING COORDINATOR, Oh L\.br\Date and Time Signed: 01/09/24 12:53 EDT BASIC METABOLIC PANELon 04-0 Anion gap [Moles/Vol] 12 mmol/L Normal 7-20 [facility] Comment on above: Performed By: #### L AB15 #### [facility] ([facility]) [address] [place] [address] Calcium [Mass/Vol] 9.4 mg/dL Normal 8.6-10.3 [facility] Comment on above: Performed By: #### L AB15 #### [facility] ([facility] [address] [place] [address] Chloride [Moles/Vol] 98 mmol/L Normal 98-107 [facility] Comment on above: Performed By: #### L AB15 #### [facility] ([facility] [address] [place] [address] CO2 [Moles/Vol] 34 mmol/L High 21-31 [facility] Comment on above: Performed By: #### L AB15 #### [facility] (BEAK[facility]) [address] [place] [address] Creatinine [Mass/Vol] 1.63 mg/dL High 0.60-1.20 [facility] Comment on above: Performed By: #### L [id number] #### [facility] ([facility]) [address] [place] [address] GLOMERULAR FILTRATION RATE ML/MIN/1.73 SQ M.PREDICTED 32.5 mL/min/1.73m*2 Low >60.0 [facility] Comment on above: Result Comment: [facility]???s estimated glomerular filtration rate (eGFR) will [...] individuals. Performed By: #### L AB15 #### [facility] ([facility]) [address] [place] [address] Glucose [Mass/Vol] 84 mg/dL Normal 70-100 [facility] Comment on above: Performed By: #### L AB15 #### [facility] ([facility]) [address] [place] [address] Potassium [Moles/Vol] 4.2 mmol/L Normal 3.5-5.1 [facility] Comment on above: Performed By: #### L AB15 #### [facility] ([facility]) [address] [place] [address] Sodium [Moles/Vol] 140 mmol/L Normal 136-145 [facility] Comment on above: Performed By: #### L AB15 #### [facility] ([facility]) [address] [place] [address] Urea nitrogen [Mass/Vol] 49 mg/dL High 7-25 [facility] Comment on above: Performed By: #### L AB15 #### [facility] ([facility]) [address] [place] [address] UREA NITROGEN/CREATININE (MASS RATIO) IN SER/PLAS 30.1 Normal [facility] Comment on above: Performed By: #### L AB15 #### [facility] ([facility]) [address] [place] [address] CBCon 01-07-2024 Erythrocyte distribution width (RBC) [Ratio] 15.9 % High 11.5-15.0 [facility] Comment on above: Performed By: #### L [id number] ####[facility] ([facility])[address] [facility] [place] [address] ERYTHROCYTE MEAN CORPUSCULAR HEMOGLOBIN CONCENTRATION (G/DL) BY AUTOMATED 30.8 g/dL Low 32.0-35.0 [facility] Comment on above: Performed By: #### L [id number] ####[facility] (BE[facility]ER)[address] [place] [address] Hematocrit (Bld) [Volume fraction] 35.4 % Low 36.0-48.0 [facility] Comment on above: Performed By: #### L [id number] ####[facility] ([facility] [place], [place] [address] Hemoglobin (Bld) [Mass/Vol] 10.9 g/dL Low 12.0-15.0 [facility] Comment on above: Performed By: #### L [id number] ####[facility] ([facility])[address] [place], [place] [address] MCH (RBC) [Entitic mass] 29.6 pg Normal 27.0-33.0 [facility] Comment on above: Performed By: #### L [id number] ####[facility] ([facility])[address] [place] [address] MCV (RBC) [Entitic vol] 96.2 fL Normal 82.0-98.0 [facility] Comment on above: Performed By: #### L [id number] ####[facility] ([facility])[address] [place] [address] PLATELETS (10*3/UL) IN BLOOD AUTOMATED COUNT 244 10*3/uL Normal 150-400 [facility] Comment on above: Performed By: #### L [id number] ####[facility] ([facility] [place] [address] RBC (Bld) [#/Vol] 3.68 10*6/uL Low 3.80-5.00 [facility] Comment on above: Performed By: #### L [id number] ####[facility] ([facility])[address] [place] [address] WBC (Bld) [#/Vol] 7.68 10*3/uL Normal 4.00-10.60 [facility] Comment on above: Performed By: #### L [id number] ####[facility] ([facility])[address] [place] [address] CTA CHEST W IV CONTRASTon CTA CHEST [...] Steven Solomon. Not Joyce Invalid Interpretation Code [facility] Comment on above: Order Comment: Doroteo keith schedule prior to February 12 Labon 01-07-2024 Lab [id number] HejeffndKaylie A 1950 F Date Provider Department Center 01/07/2024 2245-[facility] OPD LAB RESOURCE [facility] OPD HI Medical C Family History Problem Relation Age of Onset Heart failure Mother Family Status - Relation Status Age at Mother Normal [facility] Orders Onlyon 01-07-2024 Orders Only [id number] Heiland,Kaylie A 1950 F Date Provider Department Center 01/07/2024 120-ELIF ESPINOZA [facility] CARD [facility]. Family History Problem Relation Age of Onset Heart failure Mother Family Status - Relation Status Age at Mother Normal [facility] Orders Only [id number] Heiland,Kaylie A 1950 F Date Provider Department Center 01/07/2024 241-BRIAN GIL [facility] CARD [facility] Family History Problem Relation Age of Onset Heart failure Mother Family Status - Relation Status Age at Mother Normal [facility] Prep for Procedureon 024 Prep for Procedure [id number] Heiland,Kaylie A 1950 F Date Provider Department Center 01/03/2024 1987-FILIPE ANSARI [facility] VASC [facility] HI HeartVAS Family History Problem Relation Age of Onset Heart failure Mother Family Status - Relation Status Age at Mother [facility] Consultation Noteon 12-13-19 Consultation Note [id number] .00TIFF [facility] Orders Onlyon 12-13-2023 Orders Only [id number] Kaylie Salomon 1950 Date Provider Department [place] 12/13/2023 ELIF ACOSTA AFUA Khan Family History Problem Relation Age of Onset Heart failure Mother Family Status - Relation Status Age at Mother [facility] Office Visiton 12-11-2023 Follow-up visit [id number] Kaylie Salomon 1950 [facility] Department [place] 12/11/2023 ELIF ACOSTA AFUA [facility] Family History Problem Relation Age of Onset Heart failure Mother Family Status - Relation Status Age at Mother Level of Service:21825 SC OFFICE/OUTPATIENT ESTABLISHED MOD MDM 30 MIN [facility] Plan of Care - PT/OT/Speecho n 12-05-2023 Plan of Care - PT/OT/Speech [id number]#1.0 0TIFF [facility] Telephoneon 11-29-2023 Telephone [id number] Kaylie Salomon 1950 [facility] Department [place] 11/29/2023 BRIAN DIXON AFUA [place] Family History Problem Relation Age of Onset Heart failure Mother Family Status - Relation Status Age at Mother Reason for Visit and Comments: Med Refill [[id number]] [facility] Physician Referralon 024 Physician Referral [id number] 0TIFF [facility] Home Health Recordson 2023 Home Health Records [id number]#1.0 0TIFF [facility] Cardiovascular Reporton Cardiovascular Report [id number] 0TIFF Normal [facility] Lab Reportson 11-01-2023 Lab Reports [id number]#1.0 0TIFF Normal [facility] 36on 10-31-2023 36 I called Miguelina and told her thyroid labs abnormal. I confirmed PCP. The PCP office is currently closed and unable to get fax number. I will get sent next Saturday when I am back in the office. Normal [facility] BASIC METABOLIC PANELon Anion gap [Moles/Vol] 9 mmol/L Normal 7-20 [facility] Comment on above: Performed By: #### L AB15 #### [facility] ([facility]) [address] [place] [address] Calcium [Mass/Vol] 9.4 mg/dL Normal 8.6-10.3 [facility] Comment on above: Performed By: #### L AB15 #### [facility] ([facility]) [address] [place] [address] Chloride [Moles/Vol] 101 mmol/L Normal 98-107 [facility] Comment on above: Performed By: #### L AB15 #### [facility] ([facility]) [address] [place] [address] CO2 [Moles/Vol] 35 mmol/L High 21-31 [facility] Comment on above: Performed By: #### L AB15 #### [facility] ([facility]) [address] [place] [address] Creatinine [Mass/Vol] 1.25 mg/dL High 0.60-1.20 [facility] Comment on above: Performed By: #### L [id number] #### [facility] ([facility]) [address] [place] [address] GLOMERULAR FILTRATION RATE ML/MIN/1.73 SQ M.PREDICTED 44.9 mL/min/1.73m*2 Low >60.0 [facility] Comment on above: Result Comment: [facility]???s estimated glomerular filtration rate (eGFR) will [...] individuals. Performed By: #### L AB15 #### [facility] ([facility]) [address] [place] [address] Glucose [Mass/Vol] 125 mg/dL High 70-100 [facility] Comment on above: Performed By: #### L AB15 #### [facility] ([facility]) [address] [place] [address] Potassium [Moles/Vol] 4.2 mmol/L Normal 3.5-5.1 [facility] Comment on above: Performed By: #### L AB15 #### [facility] ([facility] [address] [place] [address] Sodium [Moles/Vol] 141 mmol/L Normal 136-145 [facility] Comment on above: Performed By: #### L [id number] #### [facility] ([facility] [address] [place] [address] Urea nitrogen [Mass/Vol] 42 mg/dL High 7-25 [facility] Comment on above: Performed By: #### L [id number] #### [facility] ([facility] [address] [place] [address] UREA NITROGEN/CREATININE (MASS RATIO) IN SER/PLAS 33.6 Normal [facility] Comment on above: Performed By: #### L [id number] #### [facility] ([facility]) [address] [place] [address] HPon 10-31-2023 [facility] Electrophysiology Consult Note Reason for visit: [...] seafood Sulfa (Sulfonamide Antibiotics) Other and Unknown Dvrtgerk-Nfjxwjjnwn-Gz lymyxin Rash Penicillins Rash Weight: 122kg Visit [...] EVERY DAY (more content not included)... Normal [facility] MAGNESIUMon 10-31-2023 Magnesium [Mass/Vol] 2.0 mg/dL Normal 1.9-2.7 [facility] Comment on above: Performed By: #### L [id number] ####[facility] ([facility]ER)[address] [place] [address] NURSNOTEon 10-31-2023 NURSNOTE RN educated pt and caregiver on discharge instructions. RN encouraged pt to voice any questions or concerns. Pt verbalizes no questions or concerns at this time. Pt was wheeled off unit with all belongings. Normal [facility] T4, FREEon 10-31-2023 THYROXINE (T4) FREE (NG/DL) IN SER/PLAS 0.98 ng/dL Normal 0.71-1.85 [facility] Comment on above: Performed By: #### L [id number] #### [facility] ([facility]) [address] [place] [address] TSH3 REFLEX TO FT4on 024 THYROTROPIN (MIU/L) IN SER/PLAS BY DETECTION LIMIT <= 0.05 MIU/L 6.15 mIU/L High 0.34-5.60 [facility] Comment on above: Performed By: #### L [id number] #### [facility] ([facility]) [address] [place] [address] CBC AND AUTO DIFFon 10-24-19 ABSOLUTE BASOPHIL 0.1 X10E9/L Normal 0.0-0.2 [facility] Comment on above: Performed By: #### 3 024-7, CBCA, TSHR, 28449-6 #### [facility] ([id number]) [address], [address] [place] [address] ABSOLUTE NEUTROPHIL 6.1 X10E9/L Normal 1.5-6.6 [facility] Comment on above: Performed By: #### 3 024-7, CBCA, TSHR, 62759-8 #### [facility] ([id number]) [address], [address] [place] [address] Basophils/100 WBC (Bld) 0.7 % Normal [facility] Comment on above: Performed By: #### 3 024-7, CBCA, TSHR, #### [facility] ([id number]) [address], [address] [place] [address] Eosinophils (Bld) [#/Vol] 0.0 10*3/uL Normal 0.0-0.4 [facility] Comment on above: Performed By: #### 3 024-7, CBCA, TSHR, #### [facility] ([id number]) [address], [address] [place] [address] Eosinophils/100 WBC (Bld) 0.0 % Normal [facility] Comment on above: Performed By: #### 3 024-7, CBCA, TSHR, #### [facility] ([id number]) [address], [address] [place] [address] Erythrocyte distribution width (RBC) [Ratio] 15.9 % High 11.5-15.0 [facility] Comment on above: Performed By: #### 3 024-7, CBCA, TSHR, #### [facility] ([id number]) [address], [address] [place] [address] Hematocrit (Bld) [Volume fraction] 37.3 % Normal 35-47 [facility] Comment on above: Performed By: #### 3 024-7, CBCA, TSHR, 52857-9 #### [facility] ([id number]) [address] [place] [address] Hemoglobin (Bld) [Mass/Vol] 12.1 g/dL Normal 11.7-15.5 [facility] Comment on above: Performed By: #### 3 024-7, CBCA, TSHR, 86846-5 #### [facility] ([id number]) [address] [place] [address] Lymphocytes (Bld) [#/Vol] 1.1 10*3/uL Normal 1.0-3.5 [facility] Comment on above: Performed By: #### 3 024-7, CBCA, TSHR, 34556-9 #### [facility] ([id number]) [address] [place] [address] Lymphocytes/100 WBC (Bld) 13.6 % Normal [facility] Comment on above: Performed By: #### 3 024-7, CBCA, TSHR, #### [facility] ([id number]) [address] [place] [address] MCH (RBC) [Entitic mass] 28.7 pg Normal 27-34 [facility] Comment on above: Performed By: #### 3 024-7, CBCA, TSHR, #### [facility] ([id number]) [address] [place] [address] MCHC (RBC) [Mass/Vol] 32.5 g/dL Normal 32-36 [facility] Comment on above: Performed By: #### 3 024-7, CBCA, TSHR, #### [facility] ([id number]) [address] [place] [address] MCV (RBC) [Entitic vol] 88 fL Normal 80-100 [facility] Comment on above: Performed By: #### 3 024-7, CBCA, TSHR, #### [facility] ([id number]) [address] [place] [address] Monocytes (Bld) [#/Vol] 0.5 10*3/uL Normal 0-0.9 [facility] Comment on above: Performed By: #### 3 024-7, CBCA, TSHR, #### [facility] ([id number]) [address], [facility] [address] [place] [address] Monocytes/100 WBC (Bld) 7.0 % Normal [facility] Comment on above: Performed By: #### 3 024-7, CBCA, TSHR, #### [facility] ([id number]) [address], [facility] [address] [place] [address] Neutrophils/100 WBC (Bld) 78.7 % Normal [facility] Comment on above: Performed By: #### 3 024-7, CBCA, TSHR, #### [facility] ([id number]) [address] [place] [address] Platelet mean volume (Bld) [Entitic vol] 8.6 fL Normal 7-12 [facility] Comment on above: Performed By: #### 3 024-7, CBCA, TSHR, #### [facility] ([id number]) [address], [address] [place] [address] Platelets (Bld) [#/Vol] 286 10*3/uL Normal 150-450 [facility] Comment on above: Performed By: #### 3 024-7, CBCA, TSHR, 16323-5 #### [facility] ([id number]) [address], [address] [place] [address] RBC COUNT 4.23 X10E12/L Normal 3.80-5.20 [facility] Comment on above: Performed By: #### 3 024-7, CBCA, TSHR, 70903-4 #### [facility] ([id number]) [address], [address] [place] [address] WBC (Bld) [#/Vol] 7.8 10*3/uL Normal 4.0-11.0 [facility] Comment on above: Performed By: #### 3 024-7, CBCA, TSHR, 04689-0 #### [facility] ([id number]) [address], [address] [place] [address] FREE T4on 10-24-2023 Free T4 [Mass/Vol] 1.11 ng/dL Normal 0.61-1.60 [facility] Comment on above: Performed By: #### 3 024-7, CBCA, TSHR, 72026-6 #### [facility] ([id number]) [address], [address] [place] [address] MAGNESIUMon 10-24-2023 Magnesium [Mass/Vol] 2.0 mg/dL Normal 1.8-2.6 [facility] Comment on above: Performed By: #### 3 024-7, CBCA, TSHR, 32130-0 #### [facility] ([id number]) [address], [address] [place] [address] TSH WITH REFLEXon 10-24-2023 TSH 5.36 uIU/mL High 0.49-4.67 [facility] Comment on above: Performed By: #### 3 024-7, CBCA, TSHR, #### [facility] ([id number]) [address] [facility], [address] [place] [address] Orders Onlyon 10-23-2023 Orders Only [id number] Kaylie Salomon 1950 F Date Provider Department Center 10/23/2023 [facility]AS Family History Problem Relation Age of Onset Heart failure Mother Family Status - Relation Status Age at Mother Normal [facility] Office Visiton 09-17-2023 Follow-up visit [id number] Kaylie Salomon 1950 F Date Provider Department Center 09/17/2023 [facility] Family History Problem Relation Age of Onset Heart failure Mother Family Status - Relation Status Age at Mother Level of Service:07295 SC OFFICE/OUTPATIENT NEW MODERATE MDM 45 MINUTES Normal [facility] Consultation Noteon 09-13-20 23 Consultation Note [id number]#1.0 0TIFF Normal [facility] CBC W Auto Differential pane l (Bld)on 09-12-2023 Basophils (Bld) [#/Vol] 10*3/uL Normal <0.11 [facility] Comment on above: Order Comment: Speci men Type: BLOOD SPECIMEN Ordering Facility: [facility] Address: [address] [place] [address] Performed By: #### 5 7021-8 #### [facility] CLIA [id number] [address] [place] [address] Basophils/100 WBC (Bld) 0.2 % Normal [facility] Comment on above: Order Comment: Speci men Type: BLOOD SPECIMEN Ordering Facility: [facility] Address: [address] [place] [address] Performed By: #### 5 7021-8 #### [facility] CLIA [id number] [address] [place] [address]331 Differential cell count method Nom (Bld) Auto Normal [facility] Comment on above: Order Comment: Speci men Type: BLOOD SPECIMEN Ordering Facility: [facility] Address: [address] [place] [address] Performed By: #### 5 7021-8 #### [facility] CLIA [id number] [address] [place] [address] Eosinophils (Bld) [#/Vol] 10*3/uL Normal <0.46 [facility] Comment on above: Order Comment: Speci men Type: BLOOD SPECIMEN Ordering Facility: [facility] Address: [address] [place] [address] Performed By: #### 5 7021-8 #### [facility] CLIA [id number] [address] [place] [address] Eosinophils/100 WBC (Bld) 0.0 % Normal [facility] Comment on above: Order Comment: Speci men Type: BLOOD SPECIMEN Ordering Facility: [facility] Address: [address] [place] [address] Performed By: #### 5 7021-8 #### [facility] CLIA [id number] [address] [place] [address]244 Erythrocyte distribution width (RBC) [Ratio] 14.5 % Normal 11.5-15.0 [facility] Comment on above: Order Comment: Speci men Type: BLOOD SPECIMEN Ordering Facility: [facility] Address: [address] [place] [address] Performed By: #### 5 7021-8 #### [facility] CLIA [id number] [address] [place] [address] 58138 Hematocrit (Bld) [Volume fraction] 38.7 % Normal 36.0-46.0 [facility] Comment on above: Order Comment: Speci men Type: BLOOD SPECIMEN Ordering Facility: [facility] Address: [address] [place] [address] Performed By: #### 5 7021-8 #### [facility] CLIA [id number] [address] [place] [address]14 Hemoglobin (Bld) [Mass/Vol] 11.7 g/dL Normal 11.5-15.5 [facility] Comment on above: Order Comment: Speci men Type: BLOOD SPECIMEN Ordering Facility: [facility] Address: [address] [place] [address] Performed By: #### 5 7021-8 #### [facility] CLIA [id number] [address] [place] [address] 72988 Immature granulocytes (Bld) [#/Vol] 0.03 10*3/uL Normal <0.10 [facility] Comment on above: Order Comment: Speci men Type: BLOOD SPECIMEN Ordering Facility: [facility] Address: [address] [place] [address] Performed By: #### 5 7021-8 #### [facility] CLIA [id number] [address] [place] [address] 58916 Immature granulocytes/100 WBC (Bld) 0.3 % Normal [facility] Comment on above: Order Comment: Speci men Type: BLOOD SPECIMEN Ordering Facility: [facility] Address: [address] [place] [address] Performed By: #### 5 7021-8 #### [facility] CLIA [id number] [address] [place] [address] 838[address] Lymphocytes (Bld) [#/Vol] 1.10 10*3/uL Normal 1.00-4.00 [facility] Comment on above: Order Comment: Speci men Type: BLOOD SPECIMEN Ordering Facility: [facility] Address: [address] [place] [address] Performed By: #### 5 7021-8 #### [facility] CLIA [id number] [address] [place] [address] 96939 Lymphocytes/100 WBC (Bld) 11.2 % Normal [facility] Comment on above: Order Comment: Speci men Type: BLOOD SPECIMEN Ordering Facility: [facility] Address: [address] [place] [address] Performed By: #### 5 7021-8 #### [facility] CLIA [id number] [address] [place] [address] 24544 MCH (RBC) [Entitic mass] 27.5 pg Normal 26.0-34.0 [facility] Comment on above: Order Comment: Speci men Type: BLOOD SPECIMEN Ordering Facility: [facility] Address: [address] [place] [address] Performed By: #### 5 7021-8 #### [facility] CLIA [id number] [address] [place] [address] 82156 MCHC (RBC) [Mass/Vol] 30.2 g/dL Low 30.5-36.0 [facility] Comment on above: Order Comment: Speci men Type: BLOOD SPECIMEN Ordering Facility: [facility] Address: [address] [place] [address] Performed By: #### 5 7021-8 #### [facility] CLIA [id number] [address] [place] [address] 87398 MCV (RBC) [Entitic vol] 91.1 fL Normal 80.0-100.0 [facility] Comment on above: Order Comment: Speci men Type: BLOOD SPECIMEN Ordering Facility: [facility] Address: [address] [place] [address] Performed By: #### 5 7021-8 #### [facility] CLIA [id number] [address] [place] [address] 50052 Monocytes (Bld) [#/Vol] 0.92 10*3/uL High <0.87 [facility] Comment on above: Order Comment: Speci men Type: BLOOD SPECIMEN Ordering Facility: [facility] Address: [address] [place] [address] Performed By: #### 5 7021-8 #### [facility] CLIA [id number] [address] [place] [address] 73870 Monocytes/100 WBC (Bld) 9.4 % Normal [facility] Comment on above: Order Comment: Speci men Type: BLOOD SPECIMEN Ordering Facility: [facility] Address: [address] [place] [address] Performed By: #### 5 7021-8 #### [facility] CLIA [id number] [address] [place] [address] 58832 Neutrophils (Bld) [#/Vol] 7.74 10*3/uL High 1.45-7.50 [facility] Comment on above: Order Comment: Speci men Type: BLOOD SPECIMEN Ordering Facility: [facility] Address: [address] [place] [address] Performed By: #### 5 7021-8 #### [facility] CLIA [id number] [address] [place] [address] 60683 Neutrophils/100 WBC (Bld) 78.9 % Normal [facility] Comment on above: Order Comment: Speci men Type: BLOOD SPECIMEN Ordering Facility: [facility] Address: [address] [place] [address] Performed By: #### 5 7021-8 #### [facility] CLIA [id number] [address] [place] [address] 01408 Nucleated RBC (Bld) [#/Vol] 10*3/uL Normal <0.01 [facility] Comment on above: Order Comment: Speci men Type: BLOOD SPECIMEN Ordering Facility: [facility] Address: [address] [place] [address] Performed By: #### 5 7021-8 #### [facility] CLIA [id number] [address] [place] [address] 25898 Nucleated RBC/100 WBC (Bld) [Ratio] 0.0 /100 WBC Normal [facility] Comment on above: Order Comment: Speci men Type: BLOOD SPECIMEN Ordering Facility: [facility] Address: [address] [place] [address] Performed By: #### 5 7021-8 #### [facility] CLIA [id number] [address] [place] [address] 83628 Platelet mean volume (Bld) [Entitic vol] 9.4 fL Normal 9.0-12.7 [facility] Comment on above: Order Comment: Speci men Type: BLOOD SPECIMEN Ordering Facility: [facility] Address: [address] [place] [address] Performed By: #### 5 7021-8 #### [facility] CLIA [id number] [address] [place] [address] Platelets (Bld) [#/Vol] 279 10*3/uL Normal 150-400 [facility] Comment on above: Order Comment: Speci men Type: BLOOD SPECIMEN Ordering Facility: [facility] Address: [address] [place] [address] Performed By: #### 5 7021-8 #### [facility] CLIA [id number] [address] [place] [address] 83924 RBC (Bld) [#/Vol] 4.25 10*6/uL Normal 3.90-5.20 [facility] Comment on above: Order Comment: Speci men Type: BLOOD SPECIMEN Ordering Facility: [facility] Address: [address] [place] [address] Performed By: #### 5 7021-8 #### [facility] CLIA [id number] [address] [place] [address] 75300 WBC (Bld) [#/Vol] 9.81 10*3/uL Normal 3.70-11.00 [facility] Comment on above: Order Comment: Speci men Type: BLOOD SPECIMEN Ordering Facility: [facility] Address: [address] [place] [address] Performed By: #### 5 7021-8 #### [facility] IA [id number] [address] [place] [address] 87025 CNOVSPon 09-12-2023 CNOVSP Visit (SP) Office (HEMASA) KAYLIE SALOMON ([id number]) 1950 F Date Time Provider Department 09/12/23 1:15 PM REGINALD ARAGON During your visit today, we recorded the following information about you: Temperature Pulse Respiration Blood pressure 97.7 degrees 88/minute 16/minute 108/67 Weight Height 121.6 kg 1.677 m Reginald Aragon MD 09/12/2023 7:56 PM Signed PATIENT NAME: Kaylie Salomon DATE: 09/12/2023 PRIMARY CARE PHYSICIAN: Dr. Landeros OTHER PHYSICIANS: Dr. Ramon Smith, Afua Davis XRT Portions of this encounter note have [...] on 03/14/2023) ALLERGIES: Clarithromycin, Conjugated Estrogens, Neosporin [Mxjpppqt-Xotxzmyrez-Y olymyxin], Paclitaxel, Peanut, Penicillins, and Sulfa (Sulfonamide [...] Skin: Ne (more content not included)... Normal [facility] 09-12-2023 CNPN Telephone (HEMASA) KAYLIE SALOMON ([id number]) 1950 F Date Time Provider Department 09/12/23 CARIN RAMOS During your visit today, we recorded the following information about you: Carin Ramos RN 09/12/2023 1:42 PM Signed BRM/HM: Please sign pended order Orders sent to That special woman, [facility] PH: [phone] Will notifchristiey Gricel, animal care provider, once signed DILCIA Velasco Natalie, RN 09/12/2023 2:59 PM Signed Ordered faxed to [facility] Ramos RN Allergies As of Date: 09/12/2023 Noted Allergy Reaction CLARITHROMYCIN 01/27/2010 16 - Unknown CONJUGATED ESTROGENS 01/27/2010 16 - Unknown NEOSPORIN ([id number]-[id number]-B O*05/06/2019 2 - Rash PACLITAXEL 08/24/2019 14 [...] right breast [Z90.11] Order(s):BREAST PROSTHESIS, MASTECTOMY BRA [[id number]] Order #: [id number] Prescriptions as of 09/12/2023 - BREO ELLIPTA [...] Status:Closed by CARIN RAMOS on 09/12/23 Normal [facility] Cancer Ag27-29 SerPl-aCncon 09-12-2023 Cancer Ag 27-29 Qn 31.6 [arb'U]/mL Normal <38.[address] [facility] Comment on above: Order Comment: Speci men Type: BLOOD SPECIMEN Ordering Facility: [facility] Address: [address] [place] [address] [place] [address] Result Comment: The CA27.29 test was performed using the Siem[employer] XP chemiluminometric immunoassay method. Results obtained with different assay methods or kits cannot be used interchangeably. Performed By: #### 5 7021-8 #### [facility] CLIA [id number] [address] [place] [address] 58838 Comprehensive metabolic 2000 panelon 09-12-2023 Albumin [Mass/Vol] 4.4 g/dL Normal 3.9-4.9 [facility] Comment on above: Order Comment: Speci men Type: BLOOD SPECIMEN Ordering Facility: [facility] Address: [address] [place] [address] Performed By: #### 5 7021-8 #### [facility] CLIA [id number] [address] [place] [address] 56334 ALP [Catalytic activity/Vol] 87 U/L Normal 34-123 [facility] Comment on above: Order Comment: Speci men Type: BLOOD SPECIMEN Ordering Facility: [facility] Address: [address] [place] [address] Performed By: #### 5 7021-8 #### [facility] CLIA [id number] [address] [place] [address] 96652 ALT [Catalytic activity/Vol] 11 U/L Normal 7-38 [facility] Comment on above: Order Comment: Speci men Type: BLOOD SPECIMEN Ordering Facility: [facility] Address: [address] [place] [address] Performed By: #### 5 7021-8 #### [facility] CLIA [id number] [address] [place] [address] 25262 Anion gap [Moles/Vol] 10 mmol/L Normal 9-18 [facility] Comment on above: Order Comment: Speci men Type: BLOOD SPECIMEN Ordering Facility: [facility] Address: [address] [place] [address] Performed By: #### 5 7021-8 #### [facility] CLIA [id number] [address] [place] [address] 19325 AST [Catalytic activity/Vol] 14 U/L Normal 13-35 [facility] Comment on above: Order Comment: Speci men Type: BLOOD SPECIMEN Ordering Facility: [facility] Address: [address] [place] [address] Performed By: #### 5 7021-8 #### [facility] CLIA [id number] [address] [place] [address] 32108 Bilirubin [Mass/Vol] 0.6 mg/dL Normal 0.2-1.3 [facility] Comment on above: Order Comment: Speci men Type: BLOOD SPECIMEN Ordering Facility: [facility] Address: [address] [place] [address] Performed By: #### 5 7021-8 #### [facility] CLIA [id number] [address] [place] [address] 13117 Calcium [Mass/Vol] 9.7 mg/dL Normal 8.5-10.2 [facility] Comment on above: Order Comment: Speci men Type: BLOOD SPECIMEN Ordering Facility: [facility] Address: [address] [place] [address] Performed By: #### 5 7021-8 #### [facility] CLIA [id number] [address] [place] [address] 95707 Chloride [Moles/Vol] 96 mmol/L Low 97-105 [facility] Comment on above: Order Comment: Speci men Type: BLOOD SPECIMEN Ordering Facility: [facility] Address: [address] [place] [address] Performed By: #### 5 7021-8 #### [facility] CLIA [id number] [address] [place] [address] 03840 CO2 [Moles/Vol] 31 mmol/L High 22-30 [facility] Comment on above: Order Comment: Speci men Type: BLOOD SPECIMEN Ordering Facility: [facility] Address: [address] [place] [address] Performed By: #### 5 7021-8 #### [facility] CLIA [id number] [address] [place] [address] Creatinine [Mass/Vol] 1.10 mg/dL High 0.58-0.96 [facility] Comment on above: Order Comment: Jennifer stahl Type: BLOOD SPECIMEN Ordering Facility: [facility] Address: [address] [place] [address] Performed By: #### 5 7021-8 #### [facility] CLIA [id number] [address] [place] [address]39 Creatinine and Glomerular filtration rate.predicted panel (S/P/Bld) 53 mL/min/1.73m??? Low >=60 [facility] Comment on above: Order Comment: Jennifer stahl Type: BLOOD SPECIMEN Ordering Facility: [facility] Address: [address] [place] [address] Result Comment: Violette mated Glomerular Filtration Rate [...] GFR. Performed By: #### 5 7021-8 #### [facility] CLIA [id number] [address] [place] [address] 40550 Glucose [Mass/Vol] 115 mg/dL High 74-99 [facility] Comment on above: Order Comment: Jennifer stahl Type: BLOOD SPECIMEN Ordering Facility: [facility] Address: [address] [place] [address] Result Comment: The Indian Diabetes Association (ADA) provides guidance for cutoff [...] Standards of Medical Care in Diabetes 2016, Indian Diabetes Association. Diabetes Care. 2016.39(Suppl 1). Performed By: #### 5 7021-8 #### [facility] CLIA [id number] [address] [place] [address] 93401 Potassium [Moles/Vol] 4.4 mmol/L Normal 3.7-5.1 [facility] Comment on above: Order Comment: Speci men Type: BLOOD SPECIMEN Ordering Facility: [facility] Address: [address] [place] [address] Performed By: #### 5 7021-8 #### [facility] CLIA [id number] [address] [place] [address] 03440 Protein [Mass/Vol] 7.4 g/dL Normal 6.3-8.0 [facility] Comment on above: Order Comment: Speci men Type: BLOOD SPECIMEN Ordering Facility: [facility] Address: [address] [place] [place] [address] Performed By: #### 5 7021-8 #### [facility] CLIA [id number] [address] [place] [address] 86364 Sodium [Moles/Vol] 137 mmol/L Normal 136-144 [facility] Comment on above: Order Comment: Speci men Type: BLOOD SPECIMEN Ordering Facility: [facility] Address: [address] [place] [place] [address] Performed By: #### 5 7021-8 #### [facility] CLIA [id number] [address] [place] [address] 67448 Urea nitrogen [Mass/Vol] 36 mg/dL High 7-21 [facility] Comment on above: Order Comment: Speci men Type: BLOOD SPECIMEN Ordering Facility: [facility] Address: [address] [place] [address] Performed By: #### 5 7021-8 #### [facility] CLIA [id number] [address] [place] [address] [facility] 2022 Home Health Records [id number]#1.0 0TIFF [facility] Home Health Record[facility] 2022 Home Health Records [id number]#1.0 0TIFF [facility] Office Visiton 08-29-2023 Follow-up visit [id number] Kaylie Salomon Ada 1950 F Date Provider Department Center 08/29/2023 25245-PTDTJLIZAMELISSA TORRES AFUA [facility] Family History Problem Relation Age of Onset Heart failure Mother Family Status - Relation Status Age at Mother Level of Service:59220 SC OFFICE/OUTPATIENT ESTABLISHED MOD MDM 30-39 MIN [facility] Office Visiton 08-19-2023 Follow-up visit [id number] AimeKaylie A 1950 F Date Provider Department Center 08/19/2023 Dwight-PIETRO ALDRIDGE AFUA [facility] Family History Problem Relation Age of Onset Heart failure Mother Family Status - Relation Status Age at Mother Level of Service:40034 SC OFFICE/OUTPATIENT ESTABLISHED MOD MDM 30-39 MIN [facility] RAD - CT Reporton 08-14-2023 RAD - CT Report [id number]#1.0 0TIFF [facility] Home Health [facility] 2022 Home Health Records [id number]#1.0 0TIFF [facility] Outside Mammographyon 2022 Outside Mammography [id number]#1.0 0CD:127 [facility] Home Health [facility] 2022 Home Health Records [id number] CD:127 [facility] Office Visiton 06-18-2023 Follow-up visit [id number] Nunu Salomondominic Caballero 1950 F Date Provider Department Center 06/18/2023 1596-PIETRO ALDRIDGE CARD [facility] Family History Problem Relation Age of Onset Heart failure Mother Family Status - Relation Status Age at Mother Level of Service:62681 SC OFFICE/OUTPATIENT ESTABLISHED MOD MDM 30-39 MIN Normal [facility] 2022 Home Health Records [id number]#1.0 0CD:127 Normal [facility] CNPNon 06-07-2023 CNPN Telephone (HEMASA) AIMEKAYLIE ([id number]) 1950 F Date Time Provider Department 06/07/23 NGA ZHAO HEMASA During your visit today, we recorded the following information about you: Nga Zhao RN 06/07/2023 10:17 AM Addendum Shelli called stating Kaylie needs scheduled for her Mammogram as she is due this month per office note. Pt does not have current order. Order pended Shayy: Please review and sign pending order. PSS: Pt needs scheduled at [facility] [place]. Thanks! DILCIA Carroll Natalie, RN 06/10/2023 1:00 PM Signed Spoke to adult caregiver. She has not heard from anyone regarding scheduling of Mammogram at [place]. Order fax[facility] to [facility] scheduling. She is aware to call if she has not heard from them in the next week. She denies further needs at this time Carin Ramos RN Allergies As of Date: 06/07/2023 Noted Allergy Reaction CLARITHROMYCIN 01/27/2010 16 - Unknown CONJUGATED ESTROGENS 01/27/2010 16 - Unknown NEOSPORIN ([id number]-[id number]-K O*05/06/2019 2 - Rash PACLITAXEL 08/24/2019 14 - Other: See Comments Comments: Numbness,tingling and elevated blood pressure PEANUT 05/06/2019 10 - Anaphylaxis PENICILLINS 05/06/2019 2 - Rash SULFA (SULFONAMIDE ANTIBIOTICS) 01/27/2010 16 - Unknown Date Reviewed: 06/07/2023 Reviewed by: Shayy Bernabe PA-C - Fully Assessed Reason for Visit: Orders [681] Primary Visit Diagnosis:Malignant neoplasm of overlapping sites of right breast in female, estrogen receptor negative (HCC) [C50.811, Z17.1] Order(s):[facility] DI[facility]NOSTIC LEFT [[id number]] Order #: [id number] FUTURE Prescriptions as of 06/10/2023 - potassium [...] Encounter Status:Closed by CARIN RAMOS on 06/10/23 [facility] Health Recordson 2022 Home Health Records [id number]#1.0 0CD:127 [facility] David 04-10-2023 CHETNAN Telephone (HEMTSA) KAYLEI SALOMON ([id number]) 1950 F Date Time Provider Department 04/10/23 CARIN RAMOS HEMNAVEEDA During your visit today, we recorded the following information about you: Carin Ramos RN 04/10/2023 10:45 AM Signed Requested labs to PCP for appt. Faxed to [phone] Carin Ramos RN Allergies As of Date: 04/10/2023 Noted Allergy Reaction CLARITHROMYCIN 01/27/2010 16 - Unknown CONJUGATED ESTROGENS 01/27/2010 16 - Unknown NEOSPORIN ([id number]-[id number]-Y O*05/06/2019 2 - Rash PACLITAXEL 08/24/2019 14 [...] *06/17/2019 Encounter Status:Closed by CARIN RAMOS on 04/10/23 [facility] David 04-04-2023 CHETNAN Telephone (HEMGEOFF) KAYLIE SALOMON ([id number]) 1950 F Date Time Provider Department 04/04/23 ANGELINA BOO During your visit today, we recorded the following information about you: Angelina Boo RN 04/04/2023 10:21 AM Signed Voicemail message received from pt's sister, Penelope, regarding lab results. Call placed to sister. No answer. Message left requesting call back. DILCIA Brito RN 04/04/2023 11:41 AM Signed Spoke w/ Penelope. Requests that we send pt's most recent lab results to Dr Landeros's office. Results from 03/[address] Landeros's office as requested. Angelina Boo RN Allergies As of Date: 04/04/2023 Noted Allergy Reaction CLARITHROMYCIN 01/27/2010 16 - Unknown CONJUGATED ESTROGENS 01/27/2010 16 - Unknown NEOSPORIN ([id number]-[id number]-T O*05/06/2019 2 - Rash PACLITAXEL 08/24/2019 14 - Other: See Comments Comments: Numbness,tingling and elevated blood pressure PEANUT 05/06/2019 10 - Anaphylaxis PENICILLINS 05/06/2019 2 - Rash SULFA (SULFONAMIDE ANTIBIOTICS) 01/27/2010 16 - Unknown Date Reviewed: 03/14/2023 Reviewed by: Cata Allison-COSTA Velasquez - Fully Assessed Reason for Visit: Results [...] Status:Closed by ANGELINA BOO on 04/04/23 Normal [facility] CBC W Auto Differential pane l (Bld)on 03-14-2023 Basophils (Bld) [#/Vol] 10*3/uL Normal <0.11 [facility] Comment on above: Order Comment: Speci men Type: BLOOD SPECIMEN Ordering Facility: [facility] Address: [address] [address] Performed By: #### 5 7021-8 #### [facility] CLIA [id number] [address] [place] [address] 12648 Basophils/100 WBC (Bld) 0.2 % Normal [facility] Comment on above: Order Comment: Speci men Type: BLOOD SPECIMEN Ordering Facility: [facility] Address: [address] [address] Performed By: #### 5 7021-8 #### [facility] CLIA [id number] [address] [place] [address] 45037 Differential cell count method Nom (Bld) Auto Normal [facility] Comment on above: Order Comment: Speci men Type: BLOOD SPECIMEN Ordering Facility: [facility] Address: [address] [address] Performed By: #### 5 7021-8 #### [facility] CLIA [id number] [address] [place] [address] 49602 Eosinophils (Bld) [#/Vol] 10*3/uL Normal <0.46 [facility] Comment on above: Order Comment: Speci men Type: BLOOD SPECIMEN Ordering Facility: [facility] Address: [address] [address] Performed By: #### 5 7021-8 #### [facility] CLIA [id number] [address] [place] [address] 22941 Eosinophils/100 WBC (Bld) 0.0 % Normal [facility] Comment on above: Order Comment: Speci men Type: BLOOD SPECIMEN Ordering Facility: [facility] Address: [address] [address] Performed By: #### 5 7021-8 #### [facility] CLIA [id number] [address] [place] [address] 94831 Erythrocyte distribution width (RBC) [Ratio] 14.3 % Normal 11.5-15.0 [facility] Comment on above: Order Comment: Speci men Type: BLOOD SPECIMEN Ordering Facility: [facility] Address: [address] [address] Performed By: #### 5 7021-8 #### [facility] CLIA [id number] [address] [place] [address] 00146 Hematocrit (Bld) [Volume fraction] 38.4 % Normal 36.0-46.0 [facility] Comment on above: Order Comment: Speci men Type: BLOOD SPECIMEN Ordering Facility: [facility] Address: [address] [address] Performed By: #### 5 7021-8 #### [facility] CLIA [id number] [address] [place] [address] 24260 Hemoglobin (Bld) [Mass/Vol] 11.7 g/dL Normal 11.5-15.5 [facility] Comment on above: Order Comment: Speci men Type: BLOOD SPECIMEN Ordering Facility: [facility] Address: [address] [address] Performed By: #### 5 7021-8 #### [facility] CLIA [id number] [address] [place] [address] 87174 Immature granulocytes (Bld) [#/Vol] 10*3/uL Normal <0.10 [facility] Comment on above: Order Comment: Speci men Type: BLOOD SPECIMEN Ordering Facility: [facility] Address: [address] [address] Performed By: #### 5 7021-8 #### [facility] CLIA [id number] [address] [place] [address] 02307 Immature granulocytes/100 WBC (Bld) 0.2 % Normal [facility] Comment on above: Order Comment: Speci men Type: BLOOD SPECIMEN Ordering Facility: [facility] Address: [address] [address] Performed By: #### 5 7021-8 #### [facility] CLIA [id number] [address] [place] [address] 58716 Lymphocytes (Bld) [#/Vol] 1.41 10*3/uL Normal 1.00-4.00 [facility] Comment on above: Order Comment: Speci men Type: BLOOD SPECIMEN Ordering Facility: [facility] Address: [address] [place] [address] Performed By: #### 5 7021-8 #### [facility] CLIA [id number] [address] [place] [address] 94871 Lymphocytes/100 WBC (Bld) 14.2 % Normal [facility] Comment on above: Order Comment: Speci men Type: BLOOD SPECIMEN Ordering Facility: [facility] Address: [address] [place] [address] Performed By: #### 5 7021-8 #### [facility] CLIA [id number] [address] [place] [address] 39052 MCH (RBC) [Entitic mass] 28.8 pg Normal 26.0-34.0 [facility] Comment on above: Order Comment: Speci men Type: BLOOD SPECIMEN Ordering Facility: [facility] Address: [address] [place] [address] Performed By: #### 5 7021-8 #### [facility] CLIA [id number] [address] [place] [address] 76945 MCHC (RBC) [Mass/Vol] 30.5 g/dL Normal 30.5-36.0 [facility] Comment on above: Order Comment: Speci men Type: BLOOD SPECIMEN Ordering Facility: [facility] Address: [address] [place] [address] Performed By: #### 5 7021-8 #### [facility] CLIA [id number] [address] [place] [address] 27751 MCV (RBC) [Entitic vol] 94.6 fL Normal 80.0-100.0 [facility] Comment on above: Order Comment: Speci men Type: BLOOD SPECIMEN Ordering Facility: [facility] Address: [address] Performed By: #### 5 7021-8 #### [facility] CLIA [id number] [address] [place] [address] 44633 Monocytes (Bld) [#/Vol] 0.77 10*3/uL Normal <0.87 [facility] Comment on above: Order Comment: Speci men Type: BLOOD SPECIMEN Ordering Facility: [facility] Address: [address] [address] Performed By: #### 5 7021-8 #### [facility] CLIA [id number] [address] [place] [address] 00661 Monocytes/100 WBC (Bld) 7.7 % Normal [facility] Comment on above: Order Comment: Speci men Type: BLOOD SPECIMEN Ordering Facility: [facility] Address: [address] [address] Performed By: #### 5 7021-8 #### [facility] CLIA [id number] [address] [place] [address] 98810 Neutrophils (Bld) [#/Vol] 7.72 10*3/uL High 1.45-7.50 [facility] Comment on above: Order Comment: Speci men Type: BLOOD SPECIMEN Ordering Facility: [facility] Address: [address] [address] Performed By: #### 5 7021-8 #### [facility] CLIA [id number] [address] [place] [address] 69828 Neutrophils/100 WBC (Bld) 77.7 % Normal [facility] Comment on above: Order Comment: Speci men Type: BLOOD SPECIMEN Ordering Facility: [facility] Address: [address] Performed By: #### 5 7021-8 #### [facility] CLIA [id number] [address] [place] [address] 68892 Nucleated RBC (Bld) [#/Vol] 10*3/uL Normal <0.01 [facility] Comment on above: Order Comment: Speci men Type: BLOOD SPECIMEN Ordering Facility: [facility] Address: [address] [address] Performed By: #### 5 7021-8 #### [facility] CLIA [id number] [address] [place] [address] 39134 Nucleated RBC/100 WBC (Bld) [Ratio] 0.0 /100 WBC Normal [facility] Comment on above: Order Comment: Speci men Type: BLOOD SPECIMEN Ordering Facility: [facility] Address: [address] [address] Performed By: #### 5 7021-8 #### [facility] CLIA [id number] [address] [place] [address] 55248 Platelet mean volume (Bld) [Entitic vol] 9.5 fL Normal 9.0-12.7 [facility] Comment on above: Order Comment: Speci men Type: BLOOD SPECIMEN Ordering Facility: [facility] Address: [address] Performed By: #### 5 7021-8 #### [facility] CLIA [id number] [address] [place] [address] 43747 Platelets (Bld) [#/Vol] 260 10*3/uL Normal 150-400 [facility] Comment on above: Order Comment: Speci men Type: BLOOD SPECIMEN Ordering Facility: [facility] Address: [address] Performed By: #### 5 7021-8 #### [facility] CLIA [id number] [address] [place] [address] 96230 RBC (Bld) [#/Vol] 4.06 10*6/uL Normal 3.90-5.20 [facility] Comment on above: Order Comment: Speci men Type: BLOOD SPECIMEN Ordering Facility: [facility] Address: [address] Performed By: #### 5 7021-8 #### [facility] CLIA [id number] [address] [place] [address] WBC (Bld) [#/Vol] 9.94 10*3/uL Normal 3.70-11.00 [facility] Comment on above: Order Comment: Speci men Type: BLOOD SPECIMEN Ordering Facility: [facility] Address: [address] [place] [phone] Performed By: #### 5 7021-8 #### [facility] CLIA [id number] [address] [place] [address] CNOVSPon 03-14-2023 CNOVSP Visit (SP) Office ([place]) KAYLIE SALOMON ([id number]) 1950 F Date Time Provider Department 03/14/23 1:30 PM REGINALD ARAGON During your visit today, we recorded the following information about you: Temperature Pulse Respiration Blood pressure 97.7 degrees 68/minute 16/minute 114/63 Weight Height 119.9 kg 1.677 m Reginald Aragon MD 03/15/2023 7:38 AM Signed PATIENT NAME: Kaylie Salomon DATE: 03/14/2023 PRIMARY CARE PHYSICIAN: Dr. Charles Landeros OTHER PHYSICIANS: Dr. Ramon Smith, [place] [facility] XRT Portions of this encounter note [...] once daily. ALLERGIES: Clarithromycin, Conjugated Estrogens, Neosporin [Mhnzvdhu-Fbgunuoddg-C olymyxin], Paclitaxel, Peanut, Penicillins, and Sulfa (Sulfonamide [...] to COVID-19 (more content not included)... Normal [facility] Cancer Ag27-29 SerPl-aCncon 03-14-2023 Cancer Ag 27-29 Qn 23.1 [arb'U]/mL Normal <38.[address] [facility] Comment on above: Order Comment: Speci men Type: BLOOD SPECIMEN Ordering Facility: [facility] Address: [address] [address] Result Comment: The CA27.29 test was performed using the Siemens Centaur XP chemiluminometric immunoassay method. Results obtained with different assay methods or kits cannot be used interchangeably. Performed By: #### 1 7842-6 #### [facility] CLIA [id number] [address] [facility] [id number] [address] [facility] Comprehensive metabolic 2000 panelon 03-14-2023 Albumin [Mass/Vol] 4.2 g/dL Normal 3.9-4.9 [facility] Comment on above: Order Comment: Speci men Type: BLOOD SPECIMEN Ordering Facility: [facility] Address: [address] [address] Performed By: #### 2 4323-8 #### [facility] CLIA [id number] [address] [place] [address] 37874 ALP [Catalytic activity/Vol] 95 U/L Normal 34-123 [facility] Comment on above: Order Comment: Speci men Type: BLOOD SPECIMEN Ordering Facility: [facility] Address: [address] [address] Performed By: #### 2 4323-8 #### [facility] CLIA [id number] [address] [place] [address] 24681 ALT [Catalytic activity/Vol] 11 U/L Normal 7-38 [facility] Comment on above: Order Comment: Speci men Type: BLOOD SPECIMEN Ordering Facility: [facility] Address: [address] [address] Performed By: #### 2 4323-8 #### [facility] CLIA [id number] [address] [place] [address] 32858 Anion gap [Moles/Vol] 11 mmol/L Normal 9-18 [facility] Comment on above: Order Comment: Speci men Type: BLOOD SPECIMEN Ordering Facility: [facility] Address: [address] [address] Performed By: #### 2 4323-8 #### [facility] CLIA [id number] [address] [place] [address] 23619 AST [Catalytic activity/Vol] 14 U/L Normal 13-35 [facility] Comment on above: Order Comment: Speci men Type: BLOOD SPECIMEN Ordering Facility: [facility] Address: [address] [address] Performed By: #### 2 4323-8 #### [facility] CLIA [id number] [address] [place] [address] 07481 Bilirubin [Mass/Vol] 0.5 mg/dL Normal 0.2-1.3 [facility] Comment on above: Order Comment: Speci men Type: BLOOD SPECIMEN Ordering Facility: [facility] Address: [address] [place] [address] Performed By: #### 2 4323-8 #### [facility] CLIA [id number] [address] [place] [address] 81089 Calcium [Mass/Vol] 9.3 mg/dL Normal 8.5-10.2 [facility] Comment on above: Order Comment: Speci men Type: BLOOD SPECIMEN Ordering Facility: [facility] Address: [address] [place] [address] Performed By: #### 2 4323-8 #### [facility] CLIA [id number] [address] [place] [address] 15316 Chloride [Moles/Vol] 98 mmol/L Normal 97-105 [facility] Comment on above: Order Comment: Speci men Type: BLOOD SPECIMEN Ordering Facility: [facility] Address: [address] [place] [address] Performed By: #### 2 4323-8 #### [facility] CLIA [id number] [address] [place] [address] 39688 CO2 [Moles/Vol] 30 mmol/L Normal 22-30 [facility] Comment on above: Order Comment: Speci men Type: BLOOD SPECIMEN Ordering Facility: [facility] Address: [address] [id number] Performed By: #### 2 4323-8 #### [facility] CLIA [id number] [address] [place] [address] 90480 Creatinine [Mass/Vol] 0.97 mg/dL High 0.58-0.96 [facility] Comment on above: Order Comment: Speci men Type: BLOOD SPECIMEN Ordering Facility: [facility] Address: [address] [address] Performed By: #### 2 4323-8 #### [facility] CLIA [id number] [address] [place] [address] 48999 ESTIMATED GLOMERULAR FILTRATION RATE 61 mL/min/1.73m??? Normal >=60 [facility] Comment on above: Order Comment: Speci men Type: BLOOD SPECIMEN Ordering Facility: [facility] Address: [address] [place] [address] Result Comment: Violette mated Glomerular Filtration Rate [...] GFR. Performed By: #### 2 4323-8 #### [facility] CLIA [id number] [address] [place] [address] 84583 Glucose [Mass/Vol] 138 mg/dL High 74-99 [facility] Comment on above: Order Comment: Speci men Type: BLOOD SPECIMEN Ordering Facility: [facility] Address: [address] [place] [address] Result Comment: The [employer] Diabetes Association (ADA) provides guidance for cutoff [...] Standards of Medical Care in Diabetes 2016, Indian Diabetes Association. Diabetes Care. 2016.39(Suppl 1). Performed By: #### 2 4323-8 #### [facility] CLIA [id number] [address] [place] [address] 17984 Potassium [Moles/Vol] 4.8 mmol/L Normal 3.7-5.1 [facility] Comment on above: Order Comment: Speci men Type: BLOOD SPECIMEN Ordering Facility: [facility] Address: [address] [place] [address] Performed By: #### 2 4323-8 #### [facility] CLIA [id number] [address] [place] [address] 83742 Protein [Mass/Vol] 7.2 g/dL Normal 6.3-8.0 [facility] Comment on above: Order Comment: Speci men Type: BLOOD SPECIMEN Ordering Facility: [facility] Address: [address] [address] Performed By: #### 2 4323-8 #### [facility] CLIA [id number] [address] [place] [address] 43711 Sodium [Moles/Vol] 139 mmol/L Normal 136-144 [facility] Comment on above: Order Comment: Speci men Type: BLOOD SPECIMEN Ordering Facility: [facility] Address: [address] [address] Performed By: #### 2 4323-8 #### [facility] CLIA [id number] [address] [place] [address] 91341 Urea nitrogen [Mass/Vol] 32 mg/dL High 7-21 [facility] Comment on above: Order Comment: Speci men Type: BLOOD SPECIMEN Ordering Facility: [facility] Address: [address] [address] Performed By: #### 2 4323-8 #### [facility] CLIA [id number] [address] [place] [address] CBC W Auto Differential pane l (Bld)on 09-13-2022 Basophils (Bld) [#/Vol] <0.11 k/uL [facility] Basophils/100 WBC (Bld) 0.2 % [facility] Differential cell count method Nom (Bld) Auto [facility] Eosinophils (Bld) [#/Vol] <0.46 k/uL [facility] Eosinophils/100 WBC (Bld) 0.0 % [facility] Erythrocyte distribution width (RBC) [Ratio] 14.1 % 11.5 - 15.0 % [facility] Hematocrit (Bld) [Volume fraction] 38.1 % 36.0 - 46.0 % [facility] Hemoglobin (Bld) [Mass/Vol] 11.7 g/dL 11.5 - 15.5 g/dL [facility] Immature granulocytes (Bld) [#/Vol] 0.05 10*3/uL <0.10 k/uL [facility] Immature granulocytes/100 WBC (Bld) 0.5 % [facility] Lymphocytes (Bld) [#/Vol] 1.15 10*3/uL 1.00 - 4.00 k/uL [facility] Lymphocytes/100 WBC (Bld) 11.5 % [facility] MCH (RBC) [Entitic mass] 29.4 pg 26.0 - 34.0 pg [facility] MCHC (RBC) [Mass/Vol] 30.7 g/dL 30.5 - 36.0 g/dL [facility] MCV (RBC) [Entitic vol] 95.7 fL 80.0 - 100.0 fL [facility] Monocytes (Bld) [#/Vol] 0.75 10*3/uL <0.87 k/uL [facility] Monocytes/100 WBC (Bld) 7.5 % [facility] Neutrophils (Bld) [#/Vol] 8.04 10*3/uL High 1.45 - 7.50 k/uL [facility] Neutrophils/100 WBC (Bld) 80.3 % [facility] Nucleated RBC (Bld) [#/Vol] <0.01 k/uL [facility] Nucleated RBC/100 WBC (Bld) [Ratio] 0.0 /100 WBC [facility] Platelet mean volume (Bld) [Entitic vol] 10.0 fL 9.0 - 12.7 fL [facility] Platelets (Bld) [#/Vol] 267 10*3/uL 150 - 400 k/uL [facility] RBC (Bld) [#/Vol] 3.98 10*6/uL 3.90 - 5.2 0 m/uL [facility] WBC (Bld) [#/Vol] 10.01 10*3/uL 3.70 - 11 .00 k/uL [facility] Comprehensive metabolic 2000 panelon 09-13-2022 Albumin [Mass/Vol] 4.2 g/dL 3.9 - 4.9 g/dL [facility] ALP [Catalytic activity/Vol] 97 U/L 34 - 123 U/L [facility] ALT [Catalytic activity/Vol] 10 U/L 7 - 38 U/L [facility] Anion gap [Moles/Vol] 10 mmol/L 9 - 18 mmol/L [facility] AST [Catalytic activity/Vol] 12 U/L Low 13 - 35 U/L [facility] Bilirubin [Mass/Vol] 0.4 mg/dL 0.2 - 1.3 mg/dL [facility] Calcium [Mass/Vol] 9.3 mg/dL 8.5 - 10. 2 mg/dL [facility] Chloride [Moles/Vol] 101 mmol/L 97 - 105 mmol/L [facility] CO2 [Moles/Vol] 29 mmol/L 22 - 30 mmol/L [facility] Creatinine [Mass/Vol] 1.02 mg/dL High 0.58 - 0.96 mg/dL [facility] Estimated Glomerular Filtration Rate 58 mL/min/1.73m Low >=60 mL/min/1.73m [facility] Glucose [Mass/Vol] 139 mg/dL High 74 - 99 mg/dL [facility] Potassium [Moles/Vol] 3.9 mmol/L 3.7 - 5.1 mmol/L [facility] Protein [Mass/Vol] 6.9 g/dL 6.3 - 8.0 g/dL [facility] Sodium [Moles/Vol] 140 mmol/L 136 - 144 mmol/L [facility] Urea nitrogen [Mass/Vol] 25 mg/dL High 7 - 21 mg/dL [facility] XR CHEST 2 Von 08-15-2022 XR CHEST [...] DEEPTI MALLORY Date: 2022-08-15 06:58 Normal [facility] BNPon 07-23-2022 Natriuretic peptide B (Bld) [Mass/Vol] 1362.0 pg/mL Critically high <=900.0 [facility] Comment on above: Performed By: #### C MADM, CMP, BNP #### [facility] [address] [address] [address] Hector Rubio CARDIAC [place] ADMITon 022 CK [Catalytic activity/Vol] 84 U/L Normal 26-192 [facility] Comment on above: Performed By: #### C MADM, CMP, BNP #### [facility] [address] [address] [address] Hector Rubio CK.MB [Mass/Vol] 2.22 ng/mL Normal <=3.60 [facility] Comment on above: Performed By: #### C MADM, CMP, BNP #### [facility] [address] [address] [address] Hector Rubio HSTROP 41.0 pg/mL Normal 4.0-51.3 [facility] Comment on above: Result Comment: CUT- OFF POINTS HAVE BEEN ESTABLISHED BASED ON THE FOURTH UNIVERSAL DEFINITIONS OF MYOCARDIAL INFARCTION. THE UPPER REFERENCE LIMIT (URL) OF TROPONIN, DEFINED THE 99TH PERCENTILE OF cTnI DISTRIBUTION IN A REFERENCE POPULATION, HAS BEEN CONFIRMED THE DECISION THRESHOLD FOR OK DIAGNOSIS. Performed By: #### C MADM, CMP, BNP #### [facility] [address] [address] [address] Hector Rubio DIONNE 95 ng/mL Critically high 9-82 [facility] Comment on above: Performed By: #### C MADM, CMP, BNP #### [facility] [address] [address] [address] Hector Rubio CBC AUTO DIFFon 07-23-2022 BASO # 0.0 103/ul Normal 0.0-0.1 [facility] Comment on above: Performed By: #### C BC #### [facility] [address] [place] [address] Dr. Hector Rubio Basophils/100 WBC (Bld) 0.1 % Critically low 0.2-2.0 [facility] Comment on above: Performed By: #### C BC #### [facility] [address] [place] [address] Dr. Hector Rubio EO # 0.0 103/ul Normal 0.0-0.7 [facility] Comment on above: Performed By: #### C BC #### [facility] [address] [place] [address] Dr. Hector Rubio Eosinophils/100 WBC (Bld) 0.0 % Critically low 0.9-7.0 [facility] Comment on above: Performed By: #### C BC #### [facility] [address] [place] [address] Dr. Hector Rubio Erythrocyte distribution width (RBC) [Ratio] 13.7 % Normal 11.0-15.0 [facility] Comment on above: Performed By: #### C BC #### [facility] [address] [place] [address] Dr. Hector Rubio Hematocrit (Bld) [Volume fraction] 38.9 % Normal 36.0-48.0 [facility] Comment on above: Performed By: #### C BC #### [facility] [address] [place] [address] Dr. Hector Rubio Hemoglobin (Bld) [Mass/Vol] 11.8 g/dL Critically low 12.0-16.0 [facility] Comment on above: Performed By: #### C BC #### [facility] [address] [address] [address] Hector Rubio IG # 0.02 10e3/ul Normal 0.00-0.03 [facility] Comment on above: Performed By: #### C BC #### [facility] [address] [place] [address] Dr. Hector Rubio IG % 0.3 % Normal 0.0-0.5 [facility] Comment on above: Performed By: #### C BC #### [facility] [address] [place] [address] Dr. Hector Rubio LYMPH # 1.0 103/ul Critically low 1.2-3.8 [facility] Comment on above: Performed By: #### C BC #### [facility] [address] [place] [address] Dr. Hector Rubio Lymphocytes/100 WBC (Bld) 12.6 % Critically low 20.5-60.0 [facility] Comment on above: Performed By: #### C BC #### [facility] [address] [place] [address] Dr. Hector Rubio MANUAL DIFF REQ NO Normal [facility] Comment on above: Performed By: #### C BC #### [facility] [address] [place] [address] Dr. Hector Rubio MCH (RBC) [Entitic mass] 29.0 pg Normal 26.7-34.0 [facility] Comment on above: Performed By: #### C BC #### [facility] [address] [place] [address] Dr. Hector Rubio MCHC (RBC) [Mass/Vol] 30.3 g/dL Normal 29.9-35.2 [facility] Comment on above: Performed By: #### C BC #### [facility] [address] [place] [address] Dr. Hector Rubio MCV (RBC) [Entitic vol] 95.6 fL Normal 81.0-99.0 [facility] Comment on above: Performed By: #### C BC #### [facility] [address] [address] [address] Hector Rubio MONO # 0.7 103/ul Normal 0.3-0.8 [facility] Comment on above: Performed By: #### C BC #### [facility] [address] [address] [address] Hector Rubio Monocytes/100 WBC (Bld) 9.0 % Normal 1.7-12.0 [facility] Comment on above: Performed By: #### C BC #### [facility] [address] [place] [address] Dr. Hector Rubio NEUT # 6.1 103/ul Normal 1.4-6.5 [facility] Comment on above: Performed By: #### C BC #### [facility] [address] [place] [address] Dr. Hector Rubio Neutrophils/100 WBC (Bld) 78.0 % Critically high 43.0-75.0 [facility] Comment on above: Performed By: #### C BC #### [facility] [address] [place] [address] Dr. Hector Rubio Platelet mean volume (Bld) [Entitic vol] 9.7 fL Normal 9.5-13.5 [facility] Comment on above: Performed By: #### C BC #### [facility] [address] [place] [address] Dr. Hector Rubio PLT 202 103/ul Normal 150-450 [facility] Comment on above: Performed By: #### C BC #### [facility] [address] [place] [address] Dr. Hector Rubio RBC 4.07 106/ul Critically low 4.20-5.40 [facility] Comment on above: Performed By: #### C BC #### [facility] [address] [place] [address] Dr. Hector Rubio WBC 7.8 103/ul Normal 4.0-11.0 [facility] Comment on above: Performed By: #### C BC #### [facility] [address] [place] [address] Dr. Hector Rubio Covid-19 PCR (CVDTB)on 07-01 SARS-CoV-2 (COVID-19) RNA SHLOMO+probe Ql (Unsp spec) Not detected Normal NOT DETECTED [facility] Comment on above: Result Comment: [...] for this test is supported by the [place] of Health and Human Service's declaration that [...] used). Performed By: #### C VDTBH #### [facility] [address] [place] [address] Dr. Hector Rubio PROF 14(COMP METB)on 022 Albumin [Mass/Vol] 3.7 g/dL Normal 3.4-5.0 [facility] Comment on above: Performed By: #### C MADM, CMP, BNP #### [facility] [address] [place] [address] Dr. Hector Rubio Albumin/Globulin [Mass ratio] 0.9 {ratio} Normal [facility] Comment on above: Performed By: #### C MADM, CMP, BNP #### [facility] [address] [place] [address] Dr. Hector Rubio ALP [Catalytic activity/Vol] 90 U/L Normal 46-116 [facility] Comment on above: Performed By: #### C MADM, CMP, BNP #### [facility] [address] [place] [address] Dr. Hector Rubio ALT [Catalytic activity/Vol] 17 U/L Normal 14-59 [facility] Comment on above: Performed By: #### C MADM, CMP, BNP #### [facility] [address] [address] [address] Hector Rubio Anion gap [Moles/Vol] 7.8 mmol/L Normal [facility] Comment on above: Performed By: #### C MADM, CMP, BNP #### [facility] [address] [address] [address] Hector Rubio AST [Catalytic activity/Vol] 12 U/L Critically low 15-37 [facility] Comment on above: Performed By: #### C MADM, CMP, BNP #### [facility] [address] [place] [address] Dr. Hector Rubio Bilirubin [Mass/Vol] 0.5 mg/dL Normal 0.2-1.0 [facility] Comment on above: Performed By: #### C MADM, CMP, BNP #### [facility] [address] [place] [address] Dr. Hector Rubio Calcium [Mass/Vol] 9.1 mg/dL Normal 8.5-10.1 [facility] Comment on above: Performed By: #### C MADM, CMP, BNP #### [facility] [address] [place] [address] Dr. Hector Rubio Chloride [Moles/Vol] 102 mmol/L Normal 98-107 [facility] Comment on above: Performed By: #### C MADM, CMP, BNP #### [facility] [address] [place] [address] Dr. Hector Rubio CO2 [Moles/Vol] 33.1 mmol/L Critically high 21.0-32.0 [facility] Comment on above: Performed By: #### C MADM, CMP, BNP #### [facility] [address] [place] [address] Dr. Hector Rubio Creatinine [Mass/Vol] 0.89 mg/dL Normal 0.55-1.02 [facility] Comment on above: Performed By: #### C MADM, CMP, BNP #### [facility] [address] [address] [address] Hector Rubio EGFR-AF AFGHAN >60 Normal >=60 [facility] Comment on above: Performed By: #### C MADM, CMP, BNP #### [facility] [address] [address] [address] Hector Rubio EGFR-NON AF AFGHAN >60 Normal >=60 [facility] Comment on above: Performed By: #### C MADM, CMP, BNP #### [facility] [address] [address] [address] Hector Rubio Globulin (S) [Mass/Vol] 4.0 g/dL Normal [facility] Comment on above: Performed By: #### C MADM, CMP, BNP #### [facility] [address] [address] [address] Hector Rubio Glucose [Mass/Vol] 118 mg/dL Critically high 74-106 [facility] Comment on above: Performed By: #### C MADM, CMP, BNP #### [facility] [address] [address] [address] Hector Rubio Potassium [Moles/Vol] 3.9 mmol/L Normal 3.5-5.1 [facility] Comment on above: Performed By: #### C MADM, CMP, BNP #### [facility] [address] [address] [address] Hector Rubio Protein [Mass/Vol] 7.7 g/dL Normal 6.4-8.2 [facility] Comment on above: Performed By: #### C MADM, CMP, BNP #### [facility] [address] [address] [address] Hector Rubio Sodium [Moles/Vol] 139 mmol/L Normal 136-145 [facility] Comment on above: Performed By: #### C MADM, CMP, BNP #### [facility] [address] [address] [address] Hector Rubio Urea nitrogen [Mass/Vol] 29.0 mg/dL Critically high 7.0-18.0 [facility] Comment on above: Performed By: #### C MADM, CMP, BNP #### [facility] [address] [place], [place] [address] Dr. Hector Rubio Urea nitrogen/Creatinine [Mass ratio] 32.6 mg/mg Normal [facility] Comment on above: Performed By: #### C MADM, CMP, BNP #### [facility] [address] [place], [place] [address] Dr. Hector Rubio XR CHEST 1 Von [...] by: GABRIELLE LIU Date: 2022-07-23 16:40 Normal [facility] MG MAMM DX 3D LT CADon 06-14 MG MAMM DX 3D LT CAD Patient: KAYLIE SALOMON Exam Date: 06/14/2022 : 1950 Gender:F Ordering : DR REGINALD ARAGON M.D. Admission #: [id number] Family : Order #: [id number] CLICK HERE TO VIEW EXAM CORRECTION Corrected [...] Treatments None Family Cancers None LOCATION: [facility] BREAST COMPOSITION: Scattered areas fibroglandular density. FINDINGS: [...] Mallory M.D. on 09/18/2022 at 09:22 Normal [facility] BASIC METABOLIC PANELon 05-0 Calcium [Mass/Vol] 9.3 mg/dL Normal 8.6-10.3 [facility] Comment on above: Order Comment: Yes: Add to Previous draw if able Performed By: #### 0 0121, [id number] #### [facility] [address] [place] [address], [place] Chloride [Moles/Vol] 98 mmol/L Normal 98-107 [facility] Comment on above: Order Comment: Yes: Add to Previous draw if able Performed By: #### 0 0121, 21171 #### [facility] [address] [place] [address], [place] CO2 [Moles/Vol] 34 mmol/L High 21-31 [facility] Comment on above: Order Comment: Yes: Add to Previous draw if able Performed By: #### 0 0121, 60514 #### [facility] [address] [place] [address], [place] Creatinine [Mass/Vol] 0.59 mg/dL Low 0.60-1.20 [facility] Comment on above: Order Comment: Yes: Add to Previous draw if able Performed By: #### 0 0121, 94957 #### [facility] [address] [place] [address], [place] GFR/1.73 sq M predicted among blacks MDRD (S/P/Bld) [Vol rate/Area] mL/min/{1.73_m2} Normal >60 [facility] Comment on above: Order Comment: Yes: Add to Previous draw if able Result Comment: Calc ulation may not be valid for patients over 70 years Performed By: #### 0 0121, 72509 #### [facility] [address] [place] [address], [place] GFR/1.73 sq M predicted among non-blacks MDRD (S/P/Bld) [Vol rate/Area] mL/min/{1.73_m2} Normal >60 [facility] Comment on above: Order Comment: Yes: Add to Previous draw if able Result Comment: Calc ulation may not be valid for patients over 70 years Performed By: #### 0 0121, 77373 #### [facility] [address] [place] [address], [place] Glucose [Mass/Vol] 256 mg/dL High 70-100 [facility] Comment on above: Order Comment: Yes: Add to Previous draw if able Performed By: #### 0 0121, 83400 #### [facility] [address] [place] [address], [place] Potassium [Moles/Vol] 4.5 mmol/L Normal 3.5-5.1 [facility] Comment on above: Order Comment: Yes: Add to Previous draw if able Performed By: #### 0 0121, 49240 #### [facility] [address] [place] [address], [place] Sodium [Moles/Vol] 139 mmol/L Normal 136-145 [facility] Comment on above: Order Comment: Yes: Add to Previous draw if able Performed By: #### 0 0121, 07558 #### [facility] [address] [place] [address], [place] Urea nitrogen [Mass/Vol] 21 mg/dL Normal 7-25 [facility] Comment on above: Order Comment: Yes: Add to Previous draw if able Performed By: #### 0 0121, 60716 #### [facility] [address] CBC W/DIFFon 02-02-2019 ABS BASOPHILS 0.0 10*3/uL Normal 0.0-0.2 [facility] Comment on above: Performed By: #### 0 0121, 62178 #### [facility] [address] ABS IMM GRANS 0.1 10*3/uL Normal 0.0-0.2 [facility] Comment on above: Performed By: #### 0 0121, 50829 #### [facility] [address] ABS NEUTROPHILS 16.9 10*3/uL High 1.6-7.6 [facility] Comment on above: Performed By: #### 0 0121, 48401 #### [facility] [address] [place] [address], [facility] Basophils/100 WBC (Bld) 0.1 % Normal 0.0-1.0 [facility] Comment on above: Performed By: #### 0 0121, 69408 #### [facility] [address] [place] [address], [facility] Eosinophils (Bld) [#/Vol] 0.0 10*3/uL Normal 0.0-0.5 [facility] Comment on above: Performed By: #### 0 0121, 63529 #### [facility] [address] [place] [address], [facility] Eosinophils/100 WBC (Bld) 0.0 % Normal 0.0-6.0 [facility] Comment on above: Performed By: #### 0 0121, 45952 #### [facility] [address] Erythrocyte distribution width (RBC) [Ratio] 14.3 % Normal 11.5-15.0 [facility] Comment on above: Performed By: #### 0 012, 72964 #### [facility] [address] Hematocrit (Bld) [Volume fraction] 37.3 % Normal 36.0-45.0 [facility] Comment on above: Performed By: #### 0 012, 15679 #### [facility] [address] Hemoglobin (Bld) [Mass/Vol] 11.6 g/dL Low 12.0-15.0 [facility] Comment on above: Performed By: #### 0 012, 28152 #### [facility] [address] IMMATURE GRANS 0.4 % Normal 0.0-1.0 [facility] Comment on above: Performed By: #### 0 012, 50071 #### [facility] [address] Lymphocytes (Bld) [#/Vol] 0.5 10*3/uL Low 1.2-4.0 [facility] Comment on above: Performed By: #### 0 012, 25655 #### [facility] [address] Lymphocytes/100 WBC (Bld) 2.5 % Low 20.0-45.0 [facility] Comment on above: Performed By: #### 0 012, 11757 #### [facility] [address] MCH (RBC) [Entitic mass] 28.9 pg Normal 27.0-33.0 [facility] Comment on above: Performed By: #### 0 012, 45176 #### [facility] [address] MCHC (RBC) [Mass/Vol] 31.1 g/dL Low 32.0-35.0 [facility] Comment on above: Performed By: #### 0 012, 33194 #### [facility] [address] [place] [address], [facility] MCV (RBC) [Entitic vol] 93.0 fL Normal 82.0-98.0 [facility] Comment on above: Performed By: #### 0 0121, 62722 #### [facility] [address] [place] [address], [facility] Monocytes (Bld) [#/Vol] 0.3 10*3/uL Normal 0.1-1.0 [facility] Comment on above: Performed By: #### 0 012, 94362 #### [facility] [address] MONOS 1.5 % Low 5.0-12.0 [facility] Comment on above: Performed By: #### 0 012, 28082 #### [facility] [address] Neutrophils/100 WBC (Bld) 95.5 % High 40.0-72.0 [facility] Comment on above: Performed By: #### 0 012, 67357 #### [facility] [address] Nucleated RBC/100 WBC (Bld) [Ratio] 0 % Normal 0-0 [facility] Comment on above: Performed By: #### 0 012, 64190 #### [facility] [address] [place] [address], [facility] PLAT CNT 265 10*3/uL Normal 150-400 [facility] Comment on above: Performed By: #### 0 012, 11116 #### [facility] [address] RBC (Bld) [#/Vol] 4.01 10*6/uL Normal 3.80-5.00 [facility] Comment on above: Performed By: #### 0 0121, 00978 #### [facility] [address] WBC (Bld) [#/Vol] 17.67 10*3/uL High 4.00-10.60 [facility] Comment on above: Performed By: #### 0 0121, 01572 #### [facility] [address] POC GLUCOSE LABon 02-02-2019 Glucose [Mass/Vol] 215 mg/dL High 70-100 [facility] Comment on above: Performed By: #### 0 0121, 45078 #### [facility] [address] BNP (B-TYPE NATRIURETIC PEPT DARCI)on 02-01-2019 Natriuretic peptide B (Bld) [Mass/Vol] 423 pg/mL High 0-100 [facility] Comment on above: Order Comment: Yes: Add to Previous draw if able Result Comment: Give n the appropriate clinical setting a BNP result of >100 pg/mL indicates congestive heart failure. Performed By: #### 8 5123 #### [facility] [address] CBC W/DIFFon 02-01-2019 ABS BASOPHILS 0.0 10*3/uL Normal 0.0-0.2 [facility] Comment on above: Order Comment: Yes: Add to Previous draw if able Performed By: #### 5 0103 #### [facility] [address] ABS IMM GRANS 0.1 10*3/uL Normal 0.0-0.2 [facility] Comment on above: Order Comment: Yes: Add to Previous draw if able Performed By: #### 5 0103 #### [facility] [address] [place] [address], [facility] ABS NEUTROPHILS 12.2 10*3/uL High 1.6-7.6 [facility] Comment on above: Order Comment: Yes: Add to Previous draw if able Performed By: #### 0103 #### [facility] [address] [place] [id number], [facility] Basophils/100 WBC (Bld) 0.2 % Normal 0.0-1.0 [facility] Comment on above: Order Comment: Yes: Add to Previous draw if able Performed By: #### 3 #### [facility] [address] [place] [address], [facility] Eosinophils (Bld) [#/Vol] 0.0 10*3/uL Normal 0.0-0.5 [facility] Comment on above: Order Comment: Yes: Add to Previous draw if able Performed By: #### 3 #### [facility] [address] [place] [id number], [facility] Eosinophils/100 WBC (Bld) 0.0 % Normal 0.0-6.0 [facility] Comment on above: Order Comment: Yes: Add to Previous draw if able Performed By: #### 102 #### [facility] [address] [facility] [place] [address], [facility] Erythrocyte distribution width (RBC) [Ratio] 14.3 % Normal 11.5-15.0 [facility] Comment on above: Order Comment: Yes: Add to Previous draw if able Performed By: #### 3 #### [facility] [address] [place] [address], [facility] Hematocrit (Bld) [Volume fraction] 39.9 % Normal 36.0-45.0 [facility] Comment on above: Order Comment: Yes: Add to Previous draw if able Performed By: #### 3 #### [facility] [address] [place] [address], [facility] Hemoglobin (Bld) [Mass/Vol] 11.8 g/dL Low 12.0-15.0 [facility] Comment on above: Order Comment: Yes: Add to Previous draw if able Performed By: #### 5 0103 #### [facility] [address] [place] [id number], [facility] IMMATURE GRANS 0.4 % Normal 0.0-1.0 [facility] Comment on above: Order Comment: Yes: Add to Previous draw if able Performed By: #### 5 0103 #### [facility] [address] [facility] [place] [address], [facility] Lymphocytes (Bld) [#/Vol] 0.3 10*3/uL Low 1.2-4.0 [facility] Comment on above: Order Comment: Yes: Add to Previous draw if able Performed By: #### 5 0103 #### [facility] [address] [facility] [place] [address], [facility] Lymphocytes/100 WBC (Bld) 2.6 % Low 20.0-45.0 [facility] Comment on above: Order Comment: Yes: Add to Previous draw if able Performed By: #### 5 0103 #### [facility] [address] [facility] [place] [address], [facility] MCH (RBC) [Entitic mass] 28.6 pg Normal 27.0-33.0 [facility] Comment on above: Order Comment: Yes: Add to Previous draw if able Performed By: #### 5 0103 #### [facility] [address] [facility] [place] [id number], [facility] MCHC (RBC) [Mass/Vol] 29.6 g/dL Low 32.0-35.0 [facility] Comment on above: Order Comment: Yes: Add to Previous draw if able Performed By: #### 5 0103 #### [facility] [address] [place] [address], [facility] MCV (RBC) [Entitic vol] 96.6 fL Normal 82.0-98.0 [facility] Comment on above: Order Comment: Yes: Add to Previous draw if able Performed By: #### 5 3 #### [facility] [address] [place] [id number], [facility] Monocytes (Bld) [#/Vol] 0.1 10*3/uL Normal 0.1-1.0 [facility] Comment on above: Order Comment: Yes: Add to Previous draw if able Performed By: #### 3 #### [facility] [address] [facility] [place] [address], [facility] MONOS 0.9 % Low 5.0-12.0 [facility] Comment on above: Order Comment: Yes: Add to Previous draw if able Performed By: #### 3 #### [facility] [address] [facility] [place] [address], [facility] Neutrophils/100 WBC (Bld) 95.9 % High 40.0-72.0 [facility] Comment on above: Order Comment: Yes: Add to Previous draw if able Performed By: #### 5 3 #### [facility] [address] [facility] [place] [address], [facility] Nucleated RBC/100 WBC (Bld) [Ratio] 0 % Normal 0-0 [facility] Comment on above: Order Comment: Yes: Add to Previous draw if able Performed By: #### 5 0103 #### [facility] [address] [place] [id number], [place] PLAT CNT 240 10*3/uL Normal 150-400 [facility] Comment on above: Order Comment: Yes: Add to Previous draw if able Performed By: #### 5 102 #### [facility] [address] [place] [id number], [facility] RBC (Bld) [#/Vol] 4.13 10*6/uL Normal 3.80-5.00 [facility] Comment on above: Order Comment: Yes: Add to Previous draw if able Performed By: #### 5 0103 #### [facility] [address] [place] [address], [facility] WBC (Bld) [#/Vol] 12.76 10*3/uL High 4.00-10.60 [facility] Comment on above: Order Comment: Yes: Add to Previous draw if able Performed By: #### 5 0103 #### [facility] [address] [place] [address], [facility] COMP METABOLIC PANELon 02-01 Albumin [Mass/Vol] 4.1 g/dL Normal 3.5-5.7 [facility] Comment on above: Order Comment: Yes: Add to Previous draw if able Performed By: #### 0 0121, 14638 #### [facility] [address] [place] [address], [facility] ALKALINE PHOSPH 70 IU/L Normal 34-104 [facility] Comment on above: Order Comment: Yes: Add to Previous draw if able Performed By: #### 0 0121, 48544 #### [facility] [address] [place] [address], [place] ALT [Catalytic activity/Vol] 14 U/L Normal 7-52 [facility] Comment on above: Order Comment: Yes: Add to Previous draw if able Performed By: #### 0 0121, 13990 #### [facility] [address] [place] [address], [place] AST [Catalytic activity/Vol] 16 U/L Normal 13-39 [facility] Comment on above: Order Comment: Yes: Add to Previous draw if able Performed By: #### 0 0121, 73497 #### [facility] [address] [place] [address], [place] Bilirubin [Mass/Vol] 0.5 mg/dL Normal 0.3-1.0 [facility] Comment on above: Order Comment: Yes: Add to Previous draw if able Performed By: #### 0 0121, 53761 #### [facility] [address] [place] [address], [place] Calcium [Mass/Vol] 9.0 mg/dL Normal 8.6-10.3 [facility] Comment on above: Order Comment: Yes: Add to Previous draw if able Performed By: #### 0 0121, 24332 #### [facility] [address] [place] [address], [place] Chloride [Moles/Vol] 98 mmol/L Normal 98-107 [facility] Comment on above: Order Comment: Yes: Add to Previous draw if able Performed By: #### 0 0121, 76727 #### [facility] [address] [place] [address], [place] CO2 [Moles/Vol] 31 mmol/L Normal 21-31 [facility] Comment on above: Order Comment: Yes: Add to Previous draw if able Performed By: #### 0 0121, 03254 #### [facility] [address] [place] [address], [place] Creatinine [Mass/Vol] 0.67 mg/dL Normal 0.60-1.20 [facility] Comment on above: Order Comment: Yes: Add to Previous draw if able Performed By: #### 0 0121, 94785 #### [facility] [address] [place] [address], [place] GFR/1.73 sq M predicted among blacks MDRD (S/P/Bld) [Vol rate/Area] mL/min/{1.73_m2} Normal >60 [facility] Comment on above: Order Comment: Yes: Add to Previous draw if able Result Comment: Calc ulation may not be valid for patients over 70 years Performed By: #### 0 0121, 62914 #### [facility] [address] [place] [address], [place] GFR/1.73 sq M predicted among non-blacks MDRD (S/P/Bld) [Vol rate/Area] mL/min/{1.73_m2} Normal >60 [facility] Comment on above: Order Comment: Yes: Add to Previous draw if able Result Comment: Calc ulation may not be valid for patients over 70 years Performed By: #### 0 0121, 52965 #### [facility] [address] [place] [address], [place] Glucose [Mass/Vol] 245 mg/dL High 70-100 [facility] Comment on above: Order Comment: Yes: Add to Previous draw if able Performed By: #### 0 [id number], [id number] #### [facility] [address] [place] [address], [place] Potassium [Moles/Vol] 4.2 mmol/L Normal 3.5-5.1 [facility] Comment on above: Order Comment: Yes: Add to Previous draw if able Performed By: #### 0 [id number], [id number] #### [facility] [address] [place] [address], [place] Protein [Mass/Vol] 7.1 g/dL Normal 6.0-8.3 [facility] Comment on above: Order Comment: Yes: Add to Previous draw if able Performed By: #### 0 [id number], [id number] #### [facility] [address] [place] [address], [place] Sodium [Moles/Vol] 136 mmol/L Normal 136-145 [facility] Comment on above: Order Comment: Yes: Add to Previous draw if able Performed By: #### 0 [id number], [id number] #### [facility] [address] [place] [address], [place] Urea nitrogen [Mass/Vol] 13 mg/dL Normal 7-25 [facility] Comment on above: Order Comment: Yes: Add to Previous draw if able Performed By: #### 0 [id number], [id number] #### [facility] [address] [place] [address], [facility] POC GLUCOSE LABon 02-01-2019 Glucose [Mass/Vol] 225 mg/dL High 70-100 [facility] Comment on above: Performed By: #### 0 [id number], [id number] #### [facility] [address] [place] [address], [place] Glucose [Mass/Vol] 230 mg/dL High 70-100 [facility] Comment on above: Performed By: #### 0 0121, [id number] #### [facility] [address] [place] [address], [place] Glucose [Mass/Vol] 237 mg/dL High 70-100 [facility] Comment on above: Performed By: #### 8 [id number] #### [facility] [address] [place] [address], [place] Glucose [Mass/Vol] 247 mg/dL High 70-100 [facility] Comment on above: Performed By: #### 8 [id number] #### [facility] [address] [place] [address], [facility] PORTABLE CHEST 1 VIEWon PORTABLE CHEST 1 VIEW [facility] Department of Radiology [address] [place] [id number] ======== Patient Name: KAYLIE SALOMON : 1950 Sex: F Age: Race: White Pt. Location: [id number] Patient Status: I Ordered Date: 01/31/2019 11:45:00 [...] findings. Electronically signed by:Rachael Cardenas. Transcribed by: [email or web address], User Resident: ROSA STRANGE Electronically Signed by: RACHAEL CARDENAS @ 02/01/2019 12:39 PM I personally read this/these film(s) with this resident Normal [facility] Comment on above: Order Comment: R/O I nfiltrates PROCALCITONINon 02-01-2019 PROCALCITONIN 0.07 ng/mL Normal 0.00-0.10 [facility] Comment on above: Order Comment: Yes: [...] PCT<0.5ng/mL Performed By: #### 3 [id number] #### [facility] [address] TROPONIN-Ion 02-01-2019 Troponin I.cardiac [Mass/Vol] 0.08 ng/mL High 0.00-0.04 [facility] Comment on above: Order Comment: No: D o not add to previous draw Result Comment: REFE RENCE RANGES: 0.00 - 0.04 ng/ml NORMAL 0.05 - 0.50 ng/ml INDETERMINATE > 0.50 ng/ml CONSISTENT WITH AN M.I. Performed By: #### 3 [id number] #### [facility] [address] Troponin I.cardiac [Mass/Vol] 0.08 ng/mL High 0.00-0.04 [facility] Comment on above: Order Comment: No: D o not add to previous draw Result Comment: REFE RENCE RANGES: 0.00 - 0.04 ng/ml NORMAL 0.05 - 0.50 ng/ml INDETERMINATE > 0.50 ng/ml CONSISTENT WITH AN M.I. Performed By: #### 0 [id number], [id number] #### [facility] [address] [place] [address], [facility] Cardiovascular Lab Reporton 01-16-2019 Cardiovascular Lab Report [facility] Patient Name: Aime [facility] Hannah Caballero MR #: [id number] Department of Physician: Pepe Alexandre M.D. Division of Service Date: 01/16/2019 Cardiology Birthdate: 1950 Adult Cardiovascular Room #: [facility] [address] [place], [place] [address] Cardiovascular Laboratory Report FINAL IMPRESSION: 1. Nonobstructive [...] the right radial artery was obtained. A 6-Hong Konger glide sheath was inserted without difficulty. Bilateral [...] angled Glidewire. INDICATIONS: Troponin elevation, type 2 qbb-ES-[id number] myocardial infarction. Electronically Signed by: Shemar Hudson M.D. 01/29/2019 08:36 A Shemar Hudson M.D. Date Dict: 01/16/2019/01:01 Criselda/Shemar Hudson M.D. Date Trans: 01/16/2019 02:39 P/kiran [id number] Normal [facility] SWEAT CHLORIDEon 12-03-2018 SWEAT CHLORIDE 36 mmol/L Abnormal [facility] Comment on above: Order Comment: Right [id number] Left arm [id number] Result Comment: REFE RENCE VALUES <=29 mMol/L CYSTIC FIBROSIS IS UNLIKELY 30-59 mMol/L INTERMEDIATE >=60 mMol/L INDICATIVE OF CYSTIC FIBROSIS NOTE: SWEAT CHLORIDE VALUES LESS THAN 30 mMol/L HAVE BEEN DOCUMENTED IN GENETICALLY PROVEN CF PATIENTS. CLINICAL CORRELATION IS NECESSARY. Performed By: #### S WCH1 #### [facility] [address] [place] [address] WT COLLECTED 0.177 grams Normal [facility] Comment on above: Order Comment: Right [id number] Left arm [id number] Performed By: #### S WCH1 #### [facility] [address] [place] [address] SWEAT CHLORIDE 42 mmol/L Abnormal [facility] Comment on above: Order Comment: Pleas e fax results to Doctor Charles Landeros MD. Phone: [phone] Result Comment: REFE RENCE VALUES <=29 mMol/L CYSTIC FIBROSIS IS UNLIKELY 30-59 mMol/L INTERMEDIATE >=60 mMol/L INDICATIVE OF CYSTIC FIBROSIS NOTE: SWEAT CHLORIDE VALUES LESS THAN 30 mMol/L HAVE BEEN DOCUMENTED IN GENETICALLY PROVEN CF PATIENTS. CLINICAL CORRELATION IS NECESSARY. Performed By: #### S WCH1 #### [facility] [address] [place] [address] WT COLLECTED 0.215 grams Normal [facility] Comment on above: Order Comment: Pleas e fax results to Doctor Charles Landeros MD. Phone: [phone] Performed By: #### S WCH1 #### [facility] [address] [place] [address] Vital Signs Date Time Vital Sign Value Performing Clinician Faci lity 03-14-2023 12:45-0400 Body height 167.7 cm Reginald Aragon MD Work Phone: [facility] 03-14-2023 12:45-0400 Body temperature 97.7 [degF] Reginald Aragon MD Work Phone: [facility] 03-14-2023 12:45-0400 Body weight 119.93 kg Reginald Aragon MD Work Phone: [facility] 03-14-2023 12:45-0400 Diastolic blood pressure 63 mm[Hg] Reginald Aragon MD Work Phone: [facility] 03-14-2023 12:45-0400 Heart rate 68 /min Reginald Aragon MD Work Phone: [facility] 03-14-2023 12:45-0400 Respiratory rate 16 /min Reginald Aragon MD Work Phone: [facility] 03-14-2023 12:45-0400 SaO2% (BldA) [Mass fraction] 97 % Reginald Aragon MD Work Phone: [facility] 03-14-2023 12:45-0400 Systolic blood pressure 114 mm[Hg] Reginald Aragon MD Work Phone: [facility] 09-13-2022 12:57-0500 Body height 167.7 cm Samantha Benitez LICENSED INVESTMENT SALES ASSISTANT.STAND UP COMEDIAN Work Phone: [facility] 09-13-2022 12:57-0500 Body temperature 97.59 [degF] Samantha Benitez LICENSED INVESTMENT SALES ASSISTANT.STAND UP COMEDIAN Work Phone: [facility] 09-13-2022 12:57-0500 Body weight 120.47 kg Samantha Benitez LICENSED INVESTMENT SALES ASSISTANT.STAND UP COMEDIAN Work Phone: [facility] 09-13-2022 12:57-0500 Diastolic blood pressure 68 mm[Hg] Samantha Benitez LICENSED INVESTMENT SALES ASSISTANT.STAND UP COMEDIAN Work Phone: [facility] 09-13-2022 12:57-0500 Heart rate 93 /min Samantha Benitez LICENSED INVESTMENT SALES ASSISTANT.STAND UP COMEDIAN Work Phone: [facility] 09-13-2022 12:57-0500 Respiratory rate 16 /min Samantha Benitez LICENSED INVESTMENT SALES ASSISTANT.STAND UP COMEDIAN Work Phone: [facility] 09-13-2022 12:57-0500 SaO2% (BldA) [Mass fraction] 100 % Samantha Benitez LICENSED INVESTMENT SALES ASSISTANT.STAND UP COMEDIAN Work Phone: [facility] 09-13-2022 12:57-0500 Systolic blood pressure 120 mm[Hg] Samantha Benitez LICENSED INVESTMENT SALES ASSISTANT.STAND UP COMEDIAN Work Phone: [facility] 03-14-2022 14:12-0400 Body height 167.7 cm Reginald Aragon MD Work Phone: [facility] 03-14-2022 14:12-0400 Body temperature 97.81 [degF] Reginald Aragon MD Work Phone: [facility] 03-14-2022 14:12-0400 Body weight 120.57 kg Reginald Aragon MD Work Phone: [facility] 03-14-2022 14:12-0400 Diastolic blood pressure 76 mm[Hg] Reginald Aragon MD Work Phone: [facility] 03-14-2022 14:12-0400 Heart rate 98 /min Reginald Aragon MD Work Phone: [facility] 03-14-2022 14:12-0400 Respiratory rate 16 /min Reginald Aragon MD Work Phone: [facility] 03-14-2022 14:12-0400 SaO2% (BldA) [Mass fraction] 95 % Reginald Aragon MD Work Phone: [facility] 03-14-2022 14:12-0400 Systolic blood pressure 114 mm[Hg] Reginald Aragon MD Work Phone: [facility] Encounters Encounter Date Encounter Type Care Provider Facility Start: 03-04-2025 ambulatory [place] Facility: [facility] Start: 10-05-2024 ambulatory [place] Facility: [facility] Start: 05-20-2024 End: 05-20-2024 ambulatory [facility] Start: 05-13-2024 End: 05-13-2024 ambulatory [facility] Start: 05-12-2024 ambulatory Inderjit Ly acility:[facility] Start: 05-06-2024 End: 05-06-2024 ambulatory [place] CON [facility] Start: 05-05-2024 End: 05-05-[address] [facility] Start: 03-30-2024 End: 03-30-2024 ambulatory [place] Facility:[facility] Start: 03-05-2024 End: 03-05-2024 ambulatory [place] Facility:[facility] [place] Start: 02-11-2024 End: 02-11-2024 ambulatory JENSEN CARTER Not Available Start: 02-11-2024 End: 02-11-2024 ambulatory [facility] Start: 01-09-2024 End: 01-09-2024 ambulatory [place] Facility:[facility] [place] Start: 01-07-2024 End: 01-07-2024 ambulatory [facility] Start: 01-06-2024 End: 01-29-2024 ambulatory [facility] Start: 12-11-2023 End: 12-11-2023 ambulatory [facility] Start: 11-27-2023 End: 12-30-2023 ambulatory [facility] Start: 10-31-2023 ambulatory [facility] Start: 10-31-2023 End: 10-31-2023 ambulatory [facility] Start: 10-24-2023 End: 10-24-2023 ambulatory [facility] Start: 09-17-2023 End: 09-17-2023 ambulatory [facility] Start: 09-12-2023 End: 09-12-2023 ambulatory REGINALD RAAGON Facility:[facility] Start: 09-12-2023 Telephone encounter Carin Salgado Hematology/Oncology Comment on above: Orders Start: 08-29-2023 End: 08-29-2023 [facility] Start: 08-19-2023 End: 08-19-2023 ambulatory [facility] Start: 06-18-2023 End: 06-18-2023 ambulatory [facility] Start: 06-07-2023 Telephone encounter Nga Zhao RN Work Phone: Hematology/Oncology Comment on above: Orders Start: 04-04-2023 Telephone encounter Angelina tirado RN Work Phone: Hematology/Oncology Comment on above: Results Start: 03-14-2023 End: 03-14-2023 ambulatory REGINALD ARAGON Facility:[facility] Start: 03-14-2023 End: 03-14-2023 ambulatory Reginald [...] Start: 09-13-2022 End: 09-13-2022 ambulatory Samantha Benitez LICENSED INVESTMENT SALES ASSISTANT.STAND UP COMEDIAN Work Phone: Hematology/Oncology Comment on above: Malignant neoplasm o f overlapping sites of right breast in female, estrogen receptor negative (HCC) (Primary Dx); Iron deficiency anemia secondary to inadequate dietary iron intake Start: 09-13-2022 End: 09-13-2022 Patient encounter procedure Samantha Benitez LICENSED INVESTMENT SALES ASSISTANT.STAND UP COMEDIAN Work Phone: [facility] Start: 08-14-2022 End: 08-15-[address] CHARLES LANDEROS Facility:[facility] Start: 07-23-2022 End: 07-23-2022 ambulatory MITCHEL WARREN Facility:[facility] Start: 07-16-2022 Refill Samantha Benitez LICENSED INVESTMENT SALES ASSISTANT.STAND UP COMEDIAN Work Phone: Hematology/Oncology Comment on above: Refill Request Start: 06-14-2022 End: 06-15-[address] REGINALD ARAGON Facility:[facility] Start: 03-14-2022 End: 03-14-2022 ambulatory Reginald Aragon [...] Evaluation and management of inpatient ARACELI SANDHU Facility:[facility] Start: 01-16-2019 End: 01-17-2019 Patient encounter procedure EHAB Ada HUDSON Facility:[facility] Start: 12-03-2018 Patient encounter procedure Facility:[facility] Procedures Date Procedure Procedure Detail Performing Clinician Start: 04-13-2022 Lipid 1996 panel - S migdalia or Plasma Carin Ramos RN Start: 05-27-2020 Adult depression screening assessment Reginald Aragon MD Work Phone: Plan of Treatment Date Care Activity Detail Author Start: 04-13-2027 Lipid panel Lipid Screening [facility] Start: 04-13-2027 LIPID SCREEN LIPID SCREEN [facility] Start: 12-15-2026 LIPID SCREEN LIPID SCREEN [facility] Start: 09-12-2026 Diabetes Screening Diabetes Screenin g [facility] Start: 03-14-2026 DIABETES SCREEN DIABETES SCREEN [facility] Start: 09-13-2025 DIABETES SCREEN DIABETES SCREEN [facility] Start: 03-14-2025 DIABETES SCREEN DIABETES SCREEN [facility] Start: 08-17-2024 DIABETES SCREEN DIABETES SCREEN [facility] Start: 05-31-2023 Influenza vaccination INFLUENZA (#1) [facility] Start: 03-14-2023 End: 05-14-2023 Cancer Ag 27-29 [Units/volume] in Serum or Plasma CA 27.29 BLOOD Lab Routine Malignant neoplasm of overlapping sites of right breast in female, estrogen receptor negative (HCC) Iron deficiency anemia secondary to inadequate dietary iron intake Expected: 03/14/2023, Expires: 05/14/2023 [facility] Work Phone: Comment on above: Expected: 03/14/2023 , Expires: 05/14/2023 Start: 03-14-2023 End: 05-14-2023 CBC W Auto Differential panel - Blood CBC + DIFF Lab Routine Malignant neoplasm of overlapping sites of right breast in female, estrogen receptor negative (HCC) Iron deficiency anemia secondary to inadequate dietary iron intake Expected: 03/14/2023, Expires: 05/14/2023 [facility] Work Phone: Comment on above: Expected: 03/14/2023 , Expires: 05/14/2023 Start: 03-14-2023 End: 05-14-2023 Comprehensive metabolic 2000 panel - Serum or Plasma COMP METABOLIC PANEL Lab Routine Malignant neoplasm of overlapping sites of right breast in female, estrogen receptor negative (HCC) Iron deficiency anemia secondary to inadequate dietary iron intake Expected: 03/14/2023, Expires: 05/14/2023 [facility] Work Phone: Comment on above: Expected: 03/14/2023 , Expires: 05/14/2023 Start: 09-30-2022 ADVANCE DIRECTIVE DISCUSSION ADVANCE DIRECTIVE DISCUSSION [facility] Start: 09-30-2022 DEPRESSION ASSESSMENT DEPRESSION ASS ESSMENT [facility] Start: 09-13-2022 End: 11-13-2022 Cancer Ag 27-29 [Units/volume] in Serum or Plasma [facility] Work Phone: Comment on above: Expected: 09/13/2022 , Expires: 11/13/2022 Start: 07-03-2022 COVID-19 VACCINE (5 - Booster for Moderna series) COVID-19 VACCINE (5 - Booster for Moderna series) [facility] Start: 07-03-2022 COVID-19 VACCINE (5 - Moderna series) COVID-19 VACCINE (5 - Moderna series) [facility] Start: 05-31-2022 Influenza vaccination C [facility] Start: 09-30-2021 ADVANCE DIRECTIVE DISCUSSION ADVANCE DIRECTIVE DISCUSSION [facility] Start: 09-30-2021 DEPRESSION ASSESSMENT DEPRESSION ASS ESSMENT [facility] Start: 05-27-2021 Adult depression screening assessment DEPRESSION SCREENING [facility] Start: 12-04-2015 SHINGRIX VACCINE (1 of 2) SHINGRIX VACCINE (1 of 2) [facility] Start: 12-04-2015 SHINGRIX VACCINE (2 of 3) SHINGRIX VACCINE (2 of 3) [facility] Start: 01-04-2013 BONE DENSITY BONE DENSITY [facility] Start: 01-04-2013 Screening for osteoporosis Bone Density Screening [facility] Start: 2008 RSV Vaccine (1 - 1-d ose 60+ series) RSV Vaccine (1 - 1-dose 60+ series) [facility] Start: 01-04-1993 COLOGUARD (FIT-DNA) COLOGUARD (FIT-D NA) [facility] Start: 01-04-1993 Colonoscopy COLONOSCOPY [facility] Start: 01-04-1993 COLORECTAL CANCER SCREENING COLORECTAL CANCER SCREENING [facility] Start: 01-04-[address] COLONOGRAPHY [facility] Start: 01-04-1993 FECAL OCCULT BLOOD FECAL OCCULT BLOO D [facility] Start: 01-04-1993 Screening for malign ant neoplasm of colon [facility] Start: 01-04-1993 SIGMOIDOSCOPY SIGMOIDOSCOPY Clepricilla fausto [facility] Start: 1988 Mammography MAMMOGRAM [facility] Start: 01-04-1967 Urine microalbumin profile [facility] Start: 01-04-1966 HEPATITIS C SCREENING HEPATITIS C [facility] Start: 01-04-1966 Hepatitis C screening Hepatitis C [facility] Start: 01-04-1953 COVID-19 VACCINE (#1) COVID-19 VACCI NE (#1) [facility] Start: 1950 COVID-19 VACCINE (#1) COVID-19 VACCI NE (#1) [facility] End: 04-13-2023 Diagnostic mammography computer-aided detcj uni RAMBO DIAGNOSTIC LT Radiology Routine Malignant neoplasm of overlapping sites of right breast in female, estrogen receptor negative (HCC) 1 Occurrences starting 03/14/2022 until 04/13/2023 [facility] Work Phone: Comment on above: 1 Occurrences starti ng 03/14/2022 until 04/13/2023 End: 07-06-2024 RAMBO DIAGNOSTIC LEFT RAMBO DIAGNOSTIC LEFT Radiology Routine Malignant neoplasm of overlapping sites of right breast in female, estrogen receptor negative (HCC) 1 Occurrences starting 06/07/2023 until 07/06/2024 [facility] Work Phone: Comment on above: 1 Occurrences starti ng 06/07/2023 until 07/06/2024 [facility] Immunizations Immunization Date Immunization Notes Care Provider Fa cili 07-21-2019 influenza, high dose seasonal, preservative-free Reginald Aragon MD Work Phone: [facility] 07-21-2019 pneumococcal polysaccharide vaccine, 23 valent Reginald Aragon MD Work Phone: [facility] 06-26-2018 influenza, high dose seasonal, preservative-free Reginald Aragon MD Work Phone: [facility] 06-26-2018 pneumococcal conjuga te vaccine, 13 valent Reginald Aragon MD Work Phone: [facility] 07-17-2017 influenza, high dose seasonal, preservative-free Reginald Aragon MD Work Phone: [facility] 07-01-2017 influenza, injectabl e, quadrivalent, preservative free Reginald Aragon MD Work Phone: [facility] 10-09-2015 zoster vaccine, live Reginald roche MD Work Phone: [facility] 07-11-2015 influenza, seasonal, injectable, preservative free Reginald Aragon MD Work Phone: [facility] 07-11-2015 pneumococcal conjuga te vaccine, 13 vicente Aragon MD Work Phone: [facility] Payers Date Payer Category Payer Self-pay 2022 [place] [id number] 2022-Present [phone] [address] [place] [address] Medicaid [id number] 2018 [place] [id number] 2018-Present [phone] [address] [place] [address] Medicaid [id number] 1988 Medicare MEDICARE MEDICAR E A AND B [id number] 1988-Present [phone] [address] [address] [place] [address] Medicare [id number] 1988 Medicare [id number] 1959 Medicaid [id number] 1959 Medicare [id number] 1959 Self-pay [id number] 1948 Unknown [id number] [id number]6 1948 Unknown [id number] 2.16.840.1.419808.3.579.2.647 1948 Unknown [id number] 2.16.840.1.908170.3.579.2.647 1948 Unknown [id number] 2.16.840.1.387048.3.579.2.593 1948 Unknown [id number] 2.16.840.1.010459.3.579.2.593 1948 Unknown [id number] 2.16.840.1.472422.3.579.2.593 1948 Unknown [id number] 2.16.840.1.436817.3.579.2.593 1948 Unknown [id number] 2.16.840.1.932609.3.579.2.1259 1948 Unknown [id number] 2.16.840.1.210200.3.579.2.727 1948 Unknown [id number] 2.16.840.1.198805.3.579.2.727 1948 Unknown [id number] 2.16.840.1.374544.3.579.2.727 1948 Unknown [id number] 2.16.840.1.111689.3.579.2.727 1948 Unknown [id number] 2.16.840.1.800183.3.579.2.727 1948 Unknown [id number] 2.16.840.1.343690.3.579.2.1286 1948 Unknown [id number] 2.16.840.1.327160.3.579.2.1286 1948 Unknown [id number] 2.16.840.1.633899.3.579.2.1286 1948 Unknown [id number] 2.16.840.1.067390.3.579.2.1286 1948 Unknown [id number] 2.16.840.1.208289.3.579.2.1286 1948 Unknown [id number] 2.16.840.1.347480.3.579.2.1286 Unknown [id number] 2.16.840.1.611576.3.579.2.531 Social History Date Type Detail Facility Start: 03-18-2019 End: 03-14-2023 Tobacco smoking status NHIS Never smoked tobacco [facility] Start: 03-18-2019 End: 03-14-2023 Tobacco use and exposure Smokeless tobacco non-user [facility] Start: 03-14-2022 End: 03-14-2023 Alcohol intake Lifetime non-drinker (finding) [facility] Start: 01-21-2020 History SDOH Alcohol Frequency 1 [facility] Start: 1950 Sex Assigned At Not on file [facility] Start: 03-04-2022 End: 03-14-2022 Exposure to SARS-CoV-2 (event) Not sure [facility] Start: 01-21-2020 End: 03-14-2023 History of Social function [facility] Start: 01-21-2020 End: 03-14-2023 Alcohol Use Disorder Identification Test - Consumption [AUDIT-C] [facility] How often to you hav e a drink containing alcohol? Never [facility] Average Number of Drinks Not on file [facility] NEGATED: Highlighted rowStart: JACKIEF History of tobacco use Passive smoker [facility] Clinical Notes 03-14-2022 to 06-02-2024 Telephone Encounter - Carin Ramos RN - 09/12/2023 2:58 PM ESTTelephone Encounter - Carin Ramos RN - 09/12/2023 1:38 PM ESTTelephone Encounter - Carin Ramos RN - 06/10/2023 12:58 PM EDT Note Date & Type Note Facility 06-02-2024 Note Caregiver called and states pt has increased leg swelling and weight gain despite resuming lasix 40 mg daily. Recommended to increase lasix to 40 mg po bid x 2-3 days prn and then return to 40 mg daily. Repeat BMP next week to assess renal function and electrolytes. Pt should have a clinic F/U upcoming within the next 1-3 weeks. Elif Espinoza [facility] Cardiology Available 7a-5pm via [employer] Chat Pager [phone] [facility] 05-13-2024 Note Cardiovascular Medic [facility] SUBJECTIVE Chief Complaint Patient presents with Atrial Fibrillation Congestive Heart Failure Kaylie Salomon is a 74 y.o. female here for follow-up. HPI PMHx: She called last week - she was up 15# and her lasix was increased from 40mg daily to 40mg AM and 20mg in the PM about 1 week ago. She is down about 10# since the increase in lasix. She states she is feeling better. Her leg swelling is better. She still is unsure about the a.fib ablation. Her it support specialist continue to discuss this with her. Denies CP, orthopnea, PND, dizziness/LH, palpitations, syncope, bleeding issues. --------- 02/11/24 Patient here for follow up prior to afib ablation, scheduled for 02/13/2024. Denies chest pain, SOB, palpitations, lightheadedness.syncope. She states she does not want to go forward with procedure. HPI: Kaylie Salomon is a 74 y.o. year old with past medical history of Paroxysmal A-fib RVR, asthma, HFpEF as BNP was elevated in 2019 and was then treated with Lasix on discharge and HFpEF is induced by tachyarrhythmia it appears, nonobstructive CAD, GERD, hypertension, MRDD, depression, breast Ca with radiation theray 2018 or 2018, no prior diagnosis of AF [...] been cardioverted before ECG AF hr 104bpm Patient Active Problem List Diagnosis Acute hypoxemic respiratory failure (CMS/HCC) Acute severe refractory exacerbation of asthma History of ST elevation myocardial infarction (STEMI) Gastroesophageal reflux disease Hypertensive disorder Asthma Iron deficiency anemia secondary to inadequate dietary iron intake Carcinoma of lower-outer quadrant of right breast in female, estrogen receptor negative (CMS/HCC) Atrial fibrillation status post cardioversion ([facility]) Sinusitis Type 1 diabetes mellitus ([facility]/HCC) Chronic heart failure with preserved ejection fraction ([facility]/HCC) Chronic respiratory failure ([facility]/HCC) Electrolyte and fluid disorder [facility] 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 steroid Morbid obesity ([facility]/HCC) Severe persistent asthma Paroxysmal A-fib ([facility]/HCC) Altered mental status, unspecified Hallucination Psychosis ([facility]) Past Medical History: Diagnosis Date Asthma Atrial fibrillation ([facility]/HCC) Breast cancer ([facility]) RADIATION 2017 Coronary artery disease Depression Diabetes ([facility]/HCC) GERD (gastroesophageal reflux disease) Hypertension Myocardial infarct ([facility]) Obesity BMI 40.45 Family History Problem Relation Name Age of Onset Heart failure Mother Social History Tobacco Use Smoking status: Never Smokeless tobacco: Never Substance Use Topics Alcohol use: Not Currently Drug use: Never Allergies Allergen Reactions Peanut Anaphylaxis Bacitracin Bromelains Clarithromycin Other and Unknown Conjugated Estrogens Unknown Estrogens, Conjugated Neomycin Sulfate Paclitaxel Other Numbness,tingling and elevated blood pressure Pineapple Polymyxin B Shrimp All seafood Sulfa (Sulfonamide Antibiotics) Other and Unknown Qfmrxdul-Gimfequzyo-Jjuwysghz Rash Penicillins Rash Review of Systems Constitutional: Positive for weight gain. Negative for chills, decreased appetite, fever and malaise/fatigue. Cardiovascular: Positive for leg swelling. Negative for chest pain, dyspnea on exertion, irregular heartbeat, near-syncope, orthopnea, palpitations, paroxysmal nocturnal dyspnea and syncope. Hematologic/Lymphatic: Negative for bleeding problem. Does not bruise/bleed easily. OBJECTIVE Visit Vitals BP 127/73 Pulse 87 Ht 1.727 m (5' 8 ) Wt 128 kg (282 lb) SpO2 94% BMI 42.88 kg/m??? OB Status Postmenopausal Smoking Status Never BSA 2.48 m??? Medications: Current Outpatient Medications: albuterol 90 mcg/actuation inhaler, Inhale 2 puffs in the morning, at noon, and at bedtime., Disp: , Rfl: apixaban (Eliquis) 5 mg tablet, Take 1 tablet by mouth in the morning and at bedtime., Disp: , Rfl: atorvastatin (Lipitor) 40 mg tablet, Take 1 tablet by mouth at bedtime., Disp: , Rfl: benralizumab (Fasenra Pen) 30 mg/mL auto-injector, EVERY 8 WEEKS LAST DOSE 01/03/24, (more content not included)... [facility] 05-13-2024 Note Pt is here for a one week follow up, with labs done. Review of Systems Cardiovascular: Positive for leg swelling. [facility] 05-04-2024 Note Caregiver called off ice to report pt has gained 15 pounds, BLE swelling and another provider had stopped lasix and aldactone for unknown reason- most likely r/t renal function. Staff to notify caregiver and pt to resume lasix 40 mg daily and have labs drawn today for BMP and BNP. Make appt for evaluation this week and repeat BMP Saturday or Saturday. Elif Espinoza [facility] Cardiology Available 7a-5pm via [employer] Chat Pager [phone] [facility] 02-25-2024 Note Orders to repeat BMP Will hold aldactone and losartan to 50 mg daily and decrease lasix to 40 mg daily from bid Elif Espinoza [facility] Cardiology Available 7a-5pm via [employer] Chat Pager [phone] [facility] 02-11-2024 Note [facility] Electrophysiology Consult Note Reason for visit: A-fib, HFpEF 02/11/24 Patient here for follow up prior to afib ablation, scheduled for 02/13/2024. Denies chest pain, SOB, palpitations, lightheadedness.syncope. She states she does not want to go forward with procedure. HPI: Kaylie Salomon is a 74 y.o. year old [...] team as well as Pietro SEPULVEDA. Melissa Torres, STAND UP COMEDIAN increased lasix to 40mg in the AM [...] on file Intimate Partner Violence: Unknown (11/21/2023) [place] Safety & Environment Fear of Current or [...] seafood Sulfa (Sulfonamide Antibiotics) Other and Unknown Pogeqflw-Ildfeyegqn-Suextmjwd Rash Penicillins Rash Weight: 118kg Visit Vitals [...] at bedtime. spiron (more content not included)... [facility] 12-13-2023 Note Placed orders for A fib/flutter EPS/ablation per Dr Gil's recommendation Elif Espinoza [facility] Cardiology Available 7a-5pm via [employer] Chat Pager [phone] [facility] 12-11-2023 Note [facility]- II- currently euvolemic without exacerbation Continue GDMT- lipitor, farxiga, beta amber, aldactone Diuretic therapy- lasix Monitor daily weights, I&O, fluid restriction 1.5-2L/day, renal function and electrolytes- [facility] 12-11-2023 Note Hypertension is well controlled. Continue all meds- metoprolol, aldactone, losartan [facility] 12-11-2023 Note [facility] CARDIOLOGY PROGR ESS [...] seafood Sulfa (Sulfonamide Antibiotics) Other and Unknown Uvwigwtg-Veaoxbfuzk-Muuetizro Rash Penicillins Rash Medications: Current Outpatient Medications [...] normal. Labs: 10/01 (more content not included)... [facility] 12-11-2023 Note Patient here for fol low up cardioversion on 10/31/[address] Gil. She denies chest pain, SOB, palpitations, lightheadedness/syncope, and bleeding on Eliquis. Review of Systems Constitutional: Positive for malaise/fatigue. All other systems reviewed and are negative. [facility] 12-11-2023 Note ECG today- a flutter - rate controlled Remains on eliquis anticoagulation, amiodarone for rhythm control and metoprolol Will D/W Dr Gil regarding further intervention with possible EPS/Ablation [facility] 10-31-2023 Note Please forward these results to her PCP to address her thyroid function, mag is normal Thanks [facility] 10-31-2023 Note DIRECT CARDIOVERSION PROCEDURE NOTE [...] consider ablation. Brian Gil MD Cardiac Electrophysiology [facility] 10-31-2023 Note Patient: Kaylie Salomon Procedure Information Date/Time: 10/31/23 0800 Procedure: Cardioversion - oct Location: [facility] / [facility] (Cath) Providers: Brian Gil MD Clinical information reviewed: Allergies Meds OB Status Physical Exam Airway Mallampati: II TM distance: >3 FB Neck ROM: full Cardiovascular Dental Pulmonary Abdominal Anesthesia Plan ASA 2 Anesthetic plan and risks discussed with patient and legal guardian. Use of blood products discussed with patient and legal guardian who. Additional Equipment Requests [facility] 09-17-2023 Note Patient here for 1 [...] All other systems reviewed and are negative. [facility] 09-17-2023 Note [facility] Electrophysiology Consult Note Reason for visit: A-fib, [...] seafood Sulfa (Sulfonamide Antibiotics) Other and Unknown Wrowxcuy-Jzfnssrfov-Mcjwyiogy Rash Penicillins Rash Weight: 122kg Visit Vitals [...] Positive for malaise/fatig (more content not included)... [facility] 09-12-2023 Miscellaneous Notes Ordered faxed to [facility] Carin Ramos RN BRM/HM: Please sign pended order Orders sent to That Umm carrillo PH: [phone] Will notifiy Gricel, animal care provider, once signed Carin Ramos RN documented in this encounter [facility] 09-12-2023 Note HNO ID: [id number] Author: Reginald Aragon MD Service: ? Author Type: Physician Type: Progress Notes Filed: 09/12/2023 7:56 PM Note Text: PATIENT NAME: Kaylie Salomon DATE: 09/12/2023 PRIMARY CARE PHYSICIAN: Dr. Landeros OTHER PHYSICIANS: Dr. Ramon Smith, [facility] XRT Portions of this encounter note have [...] on 03/14/2023) ALLERGIES: Clarithromycin, Conjugated Estrogens, Neosporin [Mkrroyir-Hoxzdixzgr-Gwibthmvw], Paclitaxel, Peanut, Penicillins, and Sulfa (Sulfonamide Antibiotics) [...] 167.7 cm (5' (more content not included)... [facility] 08-29-2023 Note Cardiology Clinic No te Subjective Kayliedayanara Salomon is a 73 y.o. year old [...] seafood Sulfa (Sulfonamide Antibiotics) Other and Unknown Zremlrcj-Anvlsaxkyo-Cwfsohhyc Rash Penicillins Rash Medications Current Outpatient Medications: [...] in the morni (more content not included)... [facility] 08-29-2023 Note Patient here today w [...] All other systems reviewed and are negative. [facility] 08-19-2023 Note Patient here c/o jin [...] All other systems reviewed and are negative. [facility] 08-19-2023 Note [facility] Electrophysiology Consult Note [...] seafood Sulfa (Sulfonamide Antibiotics) Other and Unknown Arxtzljr-Yswlbtjvdt-Nidyrcicz Rash Penicillins Rash Weight: 125kg Visit Vitals [...] gain, no signific (more content not included)... [facility] 06-18-2023 Note Patient here for 1 m o follow up PAF and hypertension. Metoprolol was increased at last apt in Apr 2023. Had labs 05/24. Still denies chest pain, SOB, palpitations, lightheadedness, and bleeding on Eliquis. Review of Systems All other systems reviewed and are negative. [facility] 06-18-2023 Note [facility] Electrophysiology Consult Note [...] seafood Sulfa (Sulfonamide Antibiotics) Other and Unknown Rzgkgngj-Cfibaabvan-Ljmhmrzzx Rash Penicillins Rash Weight: 122kg Visit Vitals [...] no difficulty h (more content not included)... [facility] 06-10-2023 Miscellaneous Notes Spoke to adult caregiver. She has not heard from anyone regarding scheduling of Mammogram at [place]. Order fax[facility] to [facility] scheduling. She is aware to call [...] pending order. PSS: Pt needs scheduled at [facility]. Thanks! Nga Fraga RN documented in this encounter [facility] 04-04-2023 Miscellaneous Notes Spoke w/ Penelope. Requests that we send pt's most recent lab results to Dr Landeros's office. Results from 03/[address] Landeros's office as requested. Angelina Boo RN Voicemail message received from pt's sister, Penelope, regarding lab results. Call placed to sister. No answer. Message left requesting call back. Angelina Boo RN documented in this encounter [facility] 03-14-2023 Note HNO ID: [id number] Author: Reginald Aragon MD Service: ? Author Type: Physician Type: Progress Notes Filed: 03/15/2023 7:38 AM Note Text: PATIENT NAME: Kaylie Salomon DATE: 03/14/2023 PRIMARY CARE PHYSICIAN: Dr. Charles Landeros OTHER PHYSICIANS: Dr. Ramon Smith, [facility] XRT Portions of this encounter note have [...] once daily. ALLERGIES: Clarithromycin, Conjugated Estrogens, Neosporin [Ysdpblod-Wexptlnwsa-Xkewuufkj], Paclitaxel, Peanut, Penicillins, and Sulfa (Sulfonamide Antibiotics) PAST MEDICAL HISTORY: PAST MEDICAL HISTORY Diagnosis Date AF (atrial fibrillation) ([facility] Asthma Breast cancer ([facility]) 02/[address] Landeros COPD (chronic obstructive pulmonary disease) ([facility]) Edema Hyperlipidemia Hypertension OA (osteoarthritis of spine) [...] be respiring comfortabl (more content not included)... [facility] 03-14-2023 History of Present illness Narrative PATIENT NAME: Kaylie Salomon DATE: 03/14/2023 PRIMARY CARE PHYSICIAN: Dr. Charles Landeros OTHER PHYSICIANS: Dr. Ramon Smith, [facility] Portions of this encounter note have [...] once daily. ALLERGIES: Clarithromycin, Conjugated Estrogens, Neosporin [Bjxcaglz-Xobyufdbkx-Vqzczgvkm], Paclitaxel, Peanut, Penicillins, and Sulfa (Sulfonamide Antibiotics) PAST MEDICAL HISTORY: PAST MEDICAL HISTORY Diagnosis Date AF (atrial fibrillation) ([facility]) Asthma Breast cancer ([facility]) 02/[address] 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 I will see her [...] Reginald Aragon MD documented in this encounter [facility] 09-13-2022 History of Present illness Narrative PATIENT [...] once daily. ALLERGIES: Clarithromycin, Conjugated Estrogens, Neosporin [Zxwztjmx-Fshgilwtxc-Ylrzmlyio], Paclitaxel, Peanut, Penicillins, and Sulfa (Sulfonamide Antibiotics) PAST MEDICAL HISTORY: PAST MEDICAL HISTORY Diagnosis Date AF (atrial fibrillation) ([facility]) Asthma Breast cancer ([facility]) 02/[address] Landeros COPD (chronic obstructive pulmonary disease) ([facility]) Edema Hyperlipidemia Hypertension OA (osteoarthritis of spine) [...] 253 RADIOLOGY/OTHER STUDIES: 06/14/2022 Left Diagnostic Mammogram ([facility]) Findings: Diagnostic category 2-benign finding: Left breast: No significant suspicious finding. Scattered benign-appearing nodules are present. No significant change has occurred. 08/17/2021 CT CHEST IMPRESSION: 1. Stable posttreatment changes, as described above. 2. Stable appearance of left lower lobe 5 mm nodule. No new or enlarging nodules are seen. 3. No evidence of bulky intrathoracic lymphadenopathy. 06/13/2021 Left Diagnostic Mammogram ([facility]) No significant suspicious finding. 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 ALLERGIES: Clarithromycin, Conjugated Estrogens, Neosporin [Fopevqqa-Guhhwawkje-Difaubjjr], Paclitaxel, Peanut, Penicillins, and Sulfa (Sulfonamide Antibiotics) PAST MEDICAL HISTORY: PAST MEDICAL HISTORY Diagnosis Date AF (atrial fibrillation) ([facility]) Asthma Breast cancer ([facility]) 02/[address] Landeros COPD (chronic obstructive pulmonary disease) ([facility]) Edema Hyperlipidemia Hypertension OA (osteoarthritis of spine) [...] bulky intrathoracic lymphadenopathy. 06/13/2021 Left Diagnostic Mammogram ([facility]) No significant suspicious finding. 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 of the [...] Reginald Aragon MD documented in this encounter [facility] Evaluation note Diagnosis Malignant neoplasm of overlapping sites of right breast in female, estrogen receptor negative (HCC)- Primary Other iron deficiency anemia [facility] Diagnosis Malignant neoplasm of overlapping sites of right breast in female, estrogen receptor negative (HCC)- Primary Iron deficiency anemia secondary to inadequate dietary iron intake [facility] Diagnosis Malignant neoplasm of overlapping sites of right breast in female, estrogen receptor negative (HCC)- Primary History of iron deficiency Personal history of diseases of blood and blood-forming organs [facility] Diagnosis Malignant neoplasm of overlapping sites of right breast in female, estrogen receptor negative (HCC)- Primary [facility] Diagnosis Malignant neoplasm of overlapping sites of right breast in female, estrogen receptor negative (HCC)- Primary Hx of total mastectomy of right breast Personal history of surgery to other organs [facility] Diagnostic Procedure Only (Routine) - Pending Review Specialty Diagnoses / Procedures Referred By Contac t Referred To Contact [facility] Diagnoses Malignant neoplasm of overlapping sites of right breast in female, estrogen receptor negative (HCC) Procedures [facility] DI[facility]NOSTIC LT DIAGNOSTIC MAMMOGRAPHY COMPUTER-AIDED DETCJ Reginald Casas MD [address] [address] [facility] [address] [place] [address] Referral ID Status Reason Start Date Expiration Date Visits Requested Visits Authorized [id number] Pending Review Auto-Generat ed Referral 03/14/2022 04/13/2023 1 1 [facility] for referral (narrative)* Diagnostic Procedure Only (Routine) - Pending Review Specialty Diagnoses / Procedures Referred By Contac t Referred To Contact [facility] Diagnoses Malignant neoplasm of overlapping sites of right breast in female, estrogen receptor negative (HCC) Procedures [facility] DIAGNOSTIC LEFT DIAGNOSTIC MAMMOGRAPHY COMPUTER-AIDED DETCJ Shayy Villatoro PA-C [address] [place] [address] [place] [address] [facility] [address] [place] [address] Referral ID Status Reason Start Date Expiration Date Visits Requested Visits Authorized [id number] Pending Review Auto-Generat ed Referral 06/07/2023 07/06/2024 1 1 [facility] Summary Purpose Family History No Family History [...] Records Found Hospital Course Note MR#: [id number] [facility] Pt. Name: Kaylie Salomon Admitted: 01/31/2019 Discharged: 02/02/2019 Date of : 1950 Physician: Tramaine Sandhu MD DISCHARGE SUMMARY PRIMARY CARE PHYSICIAN: No PCP. CONSULTING SERVICE: None. ADMITTING DIAGNOSES: 1. Ebdqh-ow-hwslwkk hypercapnic hypoxic respiratory failure. 2. Atrial fibrillation with rapid ventricular response. 3. Moderate persistent asthma with exacerbation. 4. Productive cough. DISCHARGE DIAGNOSES: 1. Wndun-tq-zndlsnx hypoxemic/hypercapnic respiratory failure. 2. Moderate persistent asthma [...] Referral Specialty Diagnoses / Procedures Referred By Ambrose thomas Referred To Contact Diagnoses Malignant neoplasm of overlapping sites of right breast in female, estrogen receptor negative (HCC) Hx of total mastectomy of right breast Procedures BREAST PROSTHESIS, MASTECTOMY BRA BREAST PROSTHESIS, MASTECTOMY BRA Reginald Aragon MD [address] [place] [address] [place] [address] Referral ID Status Reason Start Date Expiration Date V isits Requested Visits Authorized [id number] Closed Auto-Generate d Referral 09/12/2023 09/12/2024 1 1 Additional Source Comments INFORMATION SOURCE (unrecogn ized section and content) DATE CREATED AUTHOR 12/05/2018 [facility] DATE CREATED AUTHOR AUTHOR'S ORGANIZ ATION 05/13/2019 [facility] DATE CREATED AUTHOR AUTHOR'S ORGANIZ ATION 09/21/2022 [facility] DATE CREATED AUTHOR AUTHOR'S ORGANIZ ATION 09/14/2023 [facility] DATE CREATED AUTHOR AUTHOR'S ORGANIZ ATION 02/13/2024 [facility] Specialists [facility] DATE CREATED AUTHOR AUTHOR'S ORGANIZ ATION 03/31/2024 [facility] DATE CREATED AUTHOR AUTHOR'S ORGANIZ ATION 05/14/2024 [facility] DATE CREATED AUTHOR AUTHOR'S ORGANIZ ATION 05/22/2024 [facility] DATE CREATED AUTHOR AUTHOR'S ORGANIZ ATION 06/03/2024 [facility] Source Comments (unrecognize d section and content) In the event this informatio n is protected by the Federal Confidentiality of Alcohol and Drug Abuse Patient Records regulations: The Federal rules restrict any use of the information to criminally investigate or prosecute any alcohol or drug abuse patient.[facility] the event this information is protected by the Federal Confidentiality of Alcohol and Drug Abuse Patient Records regulations: The Federal rules restrict any use of the information to criminally investigate or prosecute any alcohol or drug abuse patient.[facility] Hospital[facility] the event this information is protected by the Federal Confidentiality of Alcohol and Drug Abuse Patient Records regulations: The Federal rules restrict any use of the information to criminally investigate or prosecute any alcohol or drug abuse patient.[facility] Hospital[facility] the event this information is protected by the Federal Confidentiality of Alcohol and Drug Abuse Patient Records regulations: The Federal rules restrict any use of the information to criminally investigate or prosecute any alcohol or drug abuse patient.[facility] Hospital[facility] the event this information is protected by the Federal Confidentiality of Alcohol and Drug Abuse Patient Records regulations: The Federal rules restrict any use of the information to criminally investigate or prosecute any alcohol or drug abuse patient.[facility] Hospital[facility] the event this information is protected by the Federal Confidentiality of Alcohol and Drug Abuse Patient Records regulations: The Federal rules restrict any use of the information to criminally investigate or prosecute any alcohol or drug abuse patient.[facility] Hospital[facility] the event this information is protected by the Federal Confidentiality of Alcohol and Drug Abuse Patient Records regulations: The Federal rules restrict any use of the information to criminally investigate or prosecute any alcohol or drug abuse patient.[facility] Hospital[facility] the event this information is protected by the Federal Confidentiality of Alcohol and Drug Abuse Patient Records regulations: The Federal rules restrict any use of the information to criminally investigate or prosecute any alcohol or drug abuse patient.[facility] Reason for Visit (unrecogniz ed section and content) Reason Comments Breast Cancer 6 month follow up Reason Comments Refill Request Reason Comments Breast Cancer Follow up Reason Comments Breast Cancer 1 year follow up Reason Comments Results Reason Comments Orders Care Teams (unrecognized sec tion and content) Halftone Operator Relationship Specialty Start Date End Date Charles Landeros MD [address] [place] [address] PCP - General Family Practice 03/11/19 Samantha Benitez, LICENSED INVESTMENT SALES ASSISTANT.STAND UP COMEDIAN [address] [place] [address] Physician Department Of Mathematics Chair Hematology/Oncology 04/27/19 Reginald Aragon MD [address] [place] [address] Physician Hematology/Oncology 12/07/19 Halftone Operator Relationship Specialty Start Date End Date Charles Landeros MD [address] [place] [address] PCP - General Family Medicine 03/11/19 Samantha Benitez, LICENSED INVESTMENT SALES ASSISTANT.STAND UP COMEDIAN [address] [place] [address] Physician Department Of Mathematics Chair Hematology/Oncology 04/27/19 Reginald Aragon MD [address] [place] [address] Physician Hematology/Oncology 12/07/19 Halftone Operator Relationship Specialty Start Date End Date Charles Landeros MD [address] [place] [address] PCP - General Family Medicine 03/11/19 Samantha Benitez, LICENSED INVESTMENT SALES ASSISTANT.STAND UP COMEDIAN [address] [place] [address] Physician Department Of Mathematics Chair Hematology/Oncology 04/27/19 Reginald Aragon MD [address] [place] [address] Physician Hematology/Oncology 12/07/19 Halftone Operator Relationship Specialty Start Date End Date Charles Landerso MD [address] [place] [address] PCP - General Family Medicine 03/11/19 Samantha Benitez, LICENSED INVESTMENT SALES ASSISTANT.STAND UP COMEDIAN [address] [address] Physician Department Of Mathematics Chair Hematology/Oncology 04/27/19 Reginald Aragon MD [address] [place] [address] Physician Hematology/Oncology 12/07/19 Halftone Operator Relationship Specialty Start Date End Date Charles Landeros MD [address] [place] [address] PCP - General Family Medicine 03/11/19 Samantha Benitez, LICENSED INVESTMENT SALES ASSISTANT.STAND UP COMEDIAN [address] [place] [address] Physician Department Of Mathematics Chair Hematology/Oncology 04/27/19 Reginald Aragon MD [address] [place] [address] Physician Hematology/Oncology 12/07/19 Halftone Operator Relationship Specialty Start Date End Date Charles Landeros MD [address] [place] [address] PCP - General Family Medicine 03/11/19 Samantha Benitez APRN.STAND UP COMEDIAN [address] [place] [address] Physician Department Of Mathematics Chair Hematology/Oncology 04/27/19 Reginald Aragon MD [address] [place] [address] Physician Hematology/Oncology 12/07/19 Halftone Operator Relationship Specialty Start Date End Date Charles Landeros MD [address] [place] [address] PCP - General Family Medicine 03/11/19 Samantha Benitez, LICENSED INVESTMENT SALES ASSISTANT.STAND UP COMEDIAN [address] [address] Physician Department Of Mathematics Chair Hematology/Oncology 04/27/19 Reginald rAagon MD [address] [place] [address] Physician Hematology/Oncology 12/07/19 FOR RECORDS PERTAINING TO [...] BE BASED ON THE PRIMARY CLINICAL RECORDS. [employer] [facility]. provides no warranty or guarantee of the accuracy or completeness of information in this document.
== END 2024-06-10 13:23 | disposition home or self-care (01) ==
LOC: MAMMO 13:23
PROVIDERS: PCP Family Medicine; Visit Provider Internal Medicine Hematology & Oncology
DX: Z12.31 Encounter for screening mammogram for malignant neoplasm of breast (principal)
CPT/HCPCS: 77065; G0279

== ENCOUNTER 2024-06-10 13:27 | Outpatient (OUT) | payer MEDICARE, MEDICAID, SELFPAY ==
--- NOTE | 2024-06-10 15:05 | CA_ITS ---
Patient Name: RUBI SALOMON MR#: [id number] : 1950 Exam Date: 06/10/2024 Ordering Doctor: ROSA VILLA CNP ECHOCARDIOGRAM REPORT PROCEDURE: CA ECHO DOPPLER COMPLETE INDICATIONS: Acute on chronic heart failure with preserved ejection fraction COMPARISON: None. DESCRIPTION: COMPLETE ECHOCARDIOGRAM Real-time transthoracic echocardiography with 2D, M-mode, spectral and color flow Doppler performed. QUALITY: Technical quality was adequate. LEFT VENTRICLE: Normal chamber size. Moderate left ventricular hypertrophy. LV EF: Global left ventricular systolic function is normal. Calculated left ventricular ejection fraction is 62%. No significant valvular abnormalities. DIASTOLIC: Not adequately assessed due to heart rhythm. ATRIAL SEPTUM: Inadequately seen. LEFT ATRIUM: Moderate dilatation. RIGHT ATRIUM: Moderate dilatation. RIGHT VENTRICLE: Normal chamber size. Normal right ventricular systolic function. TRICUSPID VALVE: Normal mobility and thickness. No stenosis with mild regurgitation. Moderate to severe pulmonary hypertension. RVSP 60mmHg MITRAL VALVE: Normal mobility and thickness. No evidence of mitral valve stenosis. Mild mitral annular calcification. Mild mitral regurgitation. AORTIC VALVE: Normal trileaflet appearance. No visible sclerosis. Normal leaflet mobility. No evidence of aortic valve stenosis. No aortic regurgitation. AORTIC ROOT: Normal diameter and appearance. PULMONIC VALVE: Normal thickness and mobility. No stenosis. Trivial regurgitation. PERICARDIUM: Anterior free space; trivial effusion versus fat pad. IVC: Moderate dilatation. No collapse. CONCLUSION: 1. Global left ventricular systolic function is normal; visually estimated ejection fraction is 55 to 60% 2. Normal right ventricular size and systolic function 3. Moderate left ventricular hypertrophy 4. Biatrial dilatation 5. Mild tricuspid regurgitation 6. Moderate to severely increased right ventricular systolic pressure; RVSP 60 mmHg 7. Mild mitral regurgitation 8. Anterior free space; trivial effusion versus fat pad Adult Echocardiography Procedure Report Left Ventricle LVEDD (3.7 - 5.6 cm): 5.10 cm LVESD (2.2 - 4.0 cm): 3.67 cm LVIVS thickness (0.6 - 1.2 cm): 1.45 cm LVPW thickness (0.5 - 1.0 cm): 1.30 cm e': 0.17 m/s E - e': 6.14 LVOT Max Gradient: 2.60 mm[Hg] LVOT Area (cm2): 0.81 m/s Peak Velocity (LVOT): 0.81 m/s Mean Velocity (LVOT): 0.55 m/s LVOT Diameter 2.08 cm Left Ventricular Ejection Fraction: 62.43 % Left Atrium LA Volume Index (2D A2C): 49.45 ml/m2 Left Atrium Systolic Dimension: 4.05 cm Mitral Valve MV E to A Ratio: 191.60 Mitral Valve A-Wave Peak Velocity: 0.01 m/s Mitral Valve E-Wave Peak Velocity: 1.04 m/s Right Ventricle RV Internal Diastolic Dimension: 3.59 cm Aorta AO Root Diam: 3.27 cm Ascending Ao Diam: 3.14 cm Aortic Valve AoV Area (Peak Vicente): 1.68 cm2, 1.68 cm2 AoV Area (VTI): 1.86 cm2, 1.86 cm2 Peak Velocity(Antegrade Flow): 1.62 m/s Peak Gradient(Antegrade Flow): 10.55 mm[Hg] Mean Velocity(Antegrade Flow): 0.99 m/s Mean Gradient(Antegrade Flow): 4.70 mm[Hg] Velocity Time Integral: 30.16 cm Tricuspid Valve Peak Velocity (Regurgitant Flow): 2.76 m/s, 2.65 m/s, 3.35 m/s Pulmonic Valve Peak Velocity: 1.07 m/s Peak Gradient: 4.12 mm[Hg], 5.15 mm[Hg] Right Atrium Right Atrium Systolic Pressure: 66.29 ml, 66.29 ml Dictated by: Shemar Hudson M.D. on 06/11/2024 at 17:16 Approved by: Shemar Hudson M.D. on 06/11/2024 at 17:25
== END 2024-06-10 13:28 | disposition home or self-care (01) ==
LOC: CARD 13:28
PROVIDERS: PCP Nurse Practitioner; Visit Provider Nurse Practitioner Family
DX: I50.33 Acute on chronic diastolic (congestive) heart failure (principal); I08.1 Rheumatic disorders of both mitral and tricuspid valves; C50.811 Malignant neoplasm of overlapping sites of right female breast; Z17.1 Estrogen receptor negative status [ER-]
CPT/HCPCS: 77065; 93306; G0279

== ENCOUNTER 2024-06-10 13:31 | Outpatient (OUT) | payer MEDICARE, MEDICAID, SELFPAY ==
[2024-06-10 15:15] LABS: Anion Gap 11.4; BUN Creatinine Ratio 30.8; Calcium 8.8 mg/dL (8.5-10.1); Carbon Dioxide 36.7 mmol/L (21.0-32.0); Chloride 97 mmol/L (98-107); Estimated GFR (African America 38 (>=60); Estimated GFR (Non-African Ame 32 (>=60); Glucose 120 mg/dL (74-106); Potassium 4.1 mmol/L (3.5-5.1); Sodium 141 mmol/L (136-145)
== END 2024-06-10 13:32 | disposition home or self-care (01) ==
LOC: LAB 13:33
PROVIDERS: PCP Nurse Practitioner; Visit Provider Nurse Practitioner
DX: R60.9 Edema, unspecified (principal)
CPT/HCPCS: 36415; 80048

== ENCOUNTER 2024-06-30 10:53 | Outpatient (OUT) | payer MEDICARE, MEDICAID, SELFPAY ==
--- OUTSIDE RECORDS SUMMARY | 2024-06-30 11:08 | XMS_ITS | CCD ---
Author Organization [facility] Care Team Providers Care Journeyman Carpenter Name Role Phone SHEMAR HUDSON A Admitting Unavailable SHEMAR HUDSON Attending Unavailable UNKNOWN, PHYSICIAN Referring Unavailable UNKNOWN, PHYSICIAN Primary Care Unavailable ARACELI SANDHU Admitting Unava ilable MEARACELI LONGO Attending Unava ilable UNKNOWN, PHYSICIAN Referring Unavailable UNKNOWN, PHYSICIAN Primary Care Unavailable Charles Landeros MD Primary Care Provider Emmanuel PNEUMATIC TUBE FITTER.SPECIAL NEEDS TEACHER, Samantha Unavailable Reginald Aragon MD Unavailable Charles Landeros MD Primary Care Provider Emmanuel PNEUMATIC TUBE FITTER.SPECIAL NEEDS TEACHER, Samantha Unavailable [phone] Reginald Aragon MD Unavailable Charles Landeros MD Primary Care Provider Emmanuel PNEUMATIC TUBE FITTER.SPECIAL NEEDS TEACHER, Samantha Unavailable Reginald Aragon MD Unavailable NADINE, DR CHARLES [...] MITCHEL Consulting Unavailable REGINALD ARAGON Referring Unavailable REGINALD ARAGON Attending Unavailable NADINE, CHARLES PRAKASH Primary Care Unavailable REGINALD ARAGON Referring Unavailable NADINE, CHARLES PRAKASH Primary Care Unavailable REGINALD ARAGON Referring Unavailable REGINALD ARAGON Attending Unavailable NADINE, CHARLES PRAKASH Primary Care Unavailable LANDEROS, CHARLES PRAKASH Primary Care Unavailable REGINALD ARAGON Referring Unavailable JENSEN CARTER Attending Unavailable Con, Oh Fuentes Attending Unavailable Con, Oh Fuentes Attending Unavailable Con, Oh Fuentes Attending Unavailable Con, Oh Fuentes Attending Unavailable Con, Oh Fuentes Attending Unavailable CON, OH Fuentes Referring Unavailable CON, OH L Primary Care Unavailable CON, OH Fuentes Referring Unavailable CON, OH L Primary Care Unavailable JEFFERYBRIAN Neal Referring Unavailable CON, OH Fuentes Primary Care Unavailable CON, OH Fuentes Referring Unavailable CON, OH Fuentes Primary Care Unavailable DAISYROSA DE LOS SANTOS Referring Unavailable CON, OH Fuentes Primary Care Unavailable OLGAELIF Referring Unavailable CHARLES LANDEROS Primary Care Unavailable Inderjit Cha Attending Unavailab Inderjit Hughes Admitting Unavailab Charles Rain Primary Care Unavailable ROSA VILLA Attending Unavailable ROSA VILLA Attending Unavailable ROSA VILLA Attending Unavailable BRIAN GIL Referring Unavailable JEFFERY, BRIAN Attending Unavailable OLGAELIF Attending Unavailable JEFFERYBRIAN Neal Attending Unavailable MELISSA TORRES Attending Unavailable PIETRO ALDRIDGE Attending Unavailable JEFFERYBRIAN Referring Unavailable JEFFERYBRIAN Attending Unavailable JEFFERYBRIAN Neal Admitting Unavailable BRIAN GIL Referring Unavailable Allergies Allergy Classification Reported Allergen(s) Allergy Type Date of Onset Reaction(s) Facility (3 sources) Penicillin; Translations: [penicillin] Drug Allergy 01-17-20 19 [facility] Repository (5 sources) Sulfonamides (Antibiotic); Translations: [SULFA (SULFONAMIDE ANTIBIOTICS)] Drug allergy (disorder) 01-28-20 10 [facility] Repository (11 sources) bacitracin / neomycin / polymyxin b; Translations: [NEOMYCIN-BACITRAC IN-POLYMYXIN] Drug Allergy 05-06-20 19 [facility] (12 sources) Clarithromycin; Translations: [CLARITHROMYCIN] Drug Allergy 01-28-20 10 [facility] (11 sources) Estrogens, Conjugated (CORRECTION); Translations: [CONJUGATED ESTROGENS] Drug Allergy 01-28-20 10 [facility] (10 sources) PACLitaxel; Translations: [PACLITAXEL] Drug Allergy 08-24-20 19 Other: See Comments [facility] (11 sources) peanut allergenic extract; Translations: [PEANUT] Drug Allergy 05-06-20 19 Anaphylaxis [facility] (4 sources) Penicillins; Translations: [PENICILLINS] Drug Allergy 05-06-20 19 Rash [facility] (8 sources) Sulfonamides (Antibiotic) Drug Allergy 01-28-20 10 [facility] (7 sources) Penicillins Drug Allergy 05-06-20 19 [facility] (3 sources) Bacitracin; Translations: [bacitracin] Drug Allergy 05-16-20 [facility] Repository (1 source) peanut; Translations: [Peanuts] Food allergy (disorder) [facility] Repository (3 sources) Shrimp product; Translations: [Shrimp] Food allergy (disorder) 05-07-20 [facility] Repository (1 source) Sulfonamides (Antibiotic); Translations: [sulfa drugs] Propensity to adverse reactions (disorder) [facility] Repository (4 sources) Pineapple; Translations: [Pineapple] Food allergy (disorder) 05-07-20 [facility] Repository (1 source) Clarithromycin Drug Allergy 05-16-20 [facility] Repository (2 sources) Estrogens, Conjugated (CORRECTION); Translations: [ESTROGENS, CONJUGATED] Drug Allergy 05-16-20 [facility] Repository (1 source) Fish Oils Drug Allergy 06-12-20 [facility] Repository (1 source) Neomycin Drug Allergy 05-16-20 [facility] Repository (1 source) PACLitaxel Drug Allergy 05-16-20 [facility] Repository (1 source) peanut allergenic extract Drug Allergy 05-16-20 [facility] Repository (1 source) Penicillins Drug allergy (disorder) 06-12-20 [facility] Repository (1 source) Sulfacetamide Drug Allergy 06-12-20 [facility] Repository (1 source) Sulfonamides (Antibiotic) Drug allergy (disorder) 05-16-20 [facility] Repository (1 source) Sulfur Drug Allergy 06-12-20 [facility] Repository (1 source) tree nut, unspecified Drug allergy (disorder) 06-12-20 [facility] Repository (2 sources) polymyxin B; Translations: [POLYMYXIN B] Drug allergy (disorder) 05-16-20 [facility] Repository (1 source) Bromelains; Translations: [BROMELAINS] Drug Allergy 04-25-20 [facility] Repository (1 source) Neomycin; Translations: [NEOMYCIN SULFATE] Drug Allergy 04-25-20 [facility] Repository Medications Completed/Discontinued Medications Medication Drug [...] 1 tablet by zohreh th once daily. [id number] 200 actuat albuterol 0.09 mg/actuat metered dose [...] Start: 01-16-2019 take 2 tablets by [facility] once daily furosemide (LASIX) 20 mg tablet Take 40 mg by mouth once daily. 3 01/16/2019 Active Start: 01-16-2019 take 1 tablet by [facility] once daily furosemide (LASIX) 20 mg [...] Comment on above: Take 1 tablet by [facility] every 8 hours as needed for Nausea/Vomiting. [...] Start: 12-04-2021 take 2 tablets by [facility] once daily potassium chloride 20 mEq TbER TAKE 2 TABLETS BY MOUTH EVERY DAY 180 tablet 0 12/04/2021 Active Start: 02-16-2021 take 2 tablets by [facility] once daily potassium chloride ER (K-DUR, KLOR-CON) 20 mEq tablet Take 2 tablets by mouth once daily. 180 tablet 1 02/16/2021 Active Comment on above: Take 2 tablets by [facility] once daily. TAKE 2 TABLETS [facility] predniSONE 10 mg oral [...] Comment on above: Take 1 tablet by [facility] every 6 hours as needed. sertraline 50 [...] by mouth once daily. 60 actuat tiotropium 0.62538 mg/actuat inhalation spray (8 sources) Anticholinergic Start: [...] site; Translations: [UNSPECIFIED OSTEOARTHRITIS UNS SITE] Onset: 10-26-2022 Chronic Other aftercare (1 source) Other superintendent terminal (current) drug therapy; Translations: [OTH CLOUD SOFTWARE ENGINEER CURRENT DRUG THERAPY] Onset: 07-25-2022 Episodic Other [...] of right breast and nipple] 09-12-2023 Episodic Residual codes; unclassified (2 sources) Edema, unspecified; Translations: [Edema, unspecified] Onset: 06-17-2024 Episodic Unclassified (2 sources) COUGH, UNSPECIFIED; Translations: [COUGH, UNSPECIFIED] Onset: 07-25-2022 Unclassified (1 source) CONTACT W/AND (SUSP) EXPOS COVID-19; Translations: [CONTACT W/AND (SUSP) EXPOS COVID-19] Onset: 07-25-2022 Unclassified (2 sources) Other persistent atrial fibrillation; Translations: [Other persistent atrial fibrillation] Onset: 02-11-2024 Past or Other Problems Problem Classification Problem [...] Test Name Value Interpretation Reference Range Facility 37on 06-25-2024 37 *Continue lasix 80mg in the AM and 40mg in the PM *Continue 2L or 64 oz of daily fluid allowance *Continue to monitor daily weights *Have labs done to follow-up on kidney function Normal [facility] 37on 06-17-2024 37 *Increase lasix to 80mg (2 tablets of 40mg) BID x3 days then take lasix 80mg in the AM and 40mg in the PM. Can take second dose around 4pm. *Limit fluid intake to 2L a day. *Limit sodium intake to 2L a day Normal [facility] Office Visiton 06-17-2024 Follow-up visit [id number] Kaylie Salomon 1950 F Date Provider Department Center 06/17/2024 ROSA LÓPEZ AFUA Hardin Family History Problem Relation Age of Onset Heart failure Mother Family Status - Relation Status Age at Mother Level of Service:63546 [place] OFFICE/OUTPATIENT ESTABLISHED MOD MDM 30 MIN Normal [facility] Orders Onlyon 06-02-2024 Orders Only [id number] Kaylie Salomon 1950 Provider Department Center 06/02/2024 120-ELIF ESPINOZA Nuris Mayra Family History Problem Relation Age of Onset Heart failure Mother Family Status - Relation Status Age at Mother Normal [facility] BASIC METABOLIC PANLon 05-20 Anion gap [Moles/Vol] 10 mmol/L Normal 5-15 [facility] Comment on above: Performed By: #### 3 0934-4 #### [facility] ([id number]) [address] [place] [address], [place] [address] #### BMP #### [facility] ([id number]) [address] [place] [address], [address] [place] [address] Calcium [Mass/Vol] 9.5 mg/dL Normal 8.5-10.5 [facility] Comment on above: Performed By: #### 3 0934-4 #### [facility] ([id number]) [address] [place] [address] #### BMP #### [facility] ([id number]) [address], [address] [place] [address] Chloride [Moles/Vol] 96 mmol/L Low 98-109 [facility] Comment on above: Performed By: #### 3 0934-4 #### [facility] ([id number]) [address] [place] [address] #### BMP #### [facility] ([id number]) [address], [address] [place] [address] CO2 [Moles/Vol] 36 mmol/L High 22-32 [facility] Comment on above: Performed By: #### 3 0934-4 #### [facility] ([id number]) [address] [place] [address] #### BMP #### [facility] ([id number]) [address], [address] [place] [address] Creatinine [Mass/Vol] 1.35 mg/dL High 0.40-1.00 [facility] Comment on above: Result Comment: METH OD TRACEABLE TO IDMS STANDARD Performed By: #### 3 0934-4 #### [facility] ([id number]) [address] [place] [address] #### BMP #### [facility] ([id number]) [address], [address] [place] [address] GFR/1.73 sq M.predicted among non-blacks MDRD (S/P/Bld) [Vol rate/Area] 41 mL/min/{1.73_m2} Low >59 [facility] Comment on above: Result Comment: Reported eGFR is based on the CKD-EPI 2020 equation that does not use a race coefficient. Performed By: #### 3 0934-4 #### [facility] ([id number]) [address] [place] [address] #### BMP #### [facility] ([id number]) [address], [address] [place] [address] Glucose [Mass/Vol] 98 mg/dL Normal 65-99 [facility] Comment on above: Performed By: #### 3 0934-4 #### [facility] ([id number]) [address] [place] [address] #### BMP #### [facility] ([id number]) [address], [address] [place] [address] Potassium [Moles/Vol] 4.1 mmol/L Normal 3.5-5.0 [facility] Comment on above: Performed By: #### 3 0934-4 #### [facility] ([id number]) [address] [place] [address] #### BMP #### [facility] ([id number]) [address], [address] [place] [address] Sodium [Moles/Vol] 142 mmol/L Normal 134-146 [facility] Comment on above: Performed By: #### 3 0934-4 #### [facility] ([id number]) [address] [place] [address] #### BMP #### [facility] ([id number]) [address], [address] [place] [address] Urea nitrogen [Mass/Vol] 30 mg/dL High 5-27 [facility] Comment on above: Performed By: #### 3 0934-4 #### [facility] ([id number]) [address] [place] [address] #### BMP #### [facility] ([id number]) [address] [place] [address] Natriuretic peptide B [Mass/ Vol]on 05-20-2024 Natriuretic peptide B (Bld) [Mass/Vol] 359 pg/mL High <100.0 [facility] Comment on above: Performed By: #### 3 0934-4 #### [facility] ([id number]) [address] [place] [address] #### BMP #### [facility] ([id number]) [address] [place] [address] Office Visiton 05-13-2024 Follow-up visit [id number] Kaylie Salomon 1950 F Date Provider Department [place] 05/13/2024 ROSA LÓPEZ AFUA [facility] Family History Problem Relation Age of Onset Heart failure Mother Family Status - Relation Status Age at Mother Level of Service:37034 [place] OFFICE/OUTPATIENT ESTABLISHED MOD MDM 30 MIN Reason for Visit and Comments: Atrial Fibrillation [80] Congestive Heart Failure [127] Normal [facility] MICROALBUMIN - ALBUMIN:CREAT ININE URINE RATIOon 05-06-2024 ALB/CREAT RATIO 42.4 mg/g creat High 0.0-30.0 [facility] Comment on above: Performed By: #### M ALBU #### [facility] ([id number]) [address] [address] Albumin DL <= 20 mg/L (U) [Mass/Vol] 0.8 mg/dL Normal 0.0-1.9 [facility] Comment on above: Performed By: #### M ALBU #### [facility] ([id number]) [address] [place] [address], [address] [address] URINE CREAT 18.87 mg/dL Normal [facility] Comment on above: Performed By: #### M ALBU #### [facility] ([id number]) [address], [address] [place] [address] PROTEIN CREAT RATIOon 2023 RANDOM URINE PROTEIN 60 mg/L Normal <120 [facility] Comment on above: Performed By: #### U PCR #### [facility] ([id number]) [address], [address] [place] [address] U/PRO/ABRASIVE COATING MACHINE OPERATOR RATIO CALC 0.32 High <0.2 [facility] Comment on above: Result Comment: Neph rotic Syndrome is associated with ratios >3.5 Performed By: #### U PCR #### [facility] ([id number]) [address], [address] [place] [address] URINE CREATININE,RDM 18.77 mg/dL Normal [facility] Comment on above: Performed By: #### U PCR #### [facility] ([id number]) [address], [address] [place] [address] 36on 05-05-2024 36 Patient's caregiver called back and I relayed message per Mirna to restart PM dose of lasix and have labs today. She will also have repeat labs on Saturday and will see Shayy on Saturday, 05/13. Lab orders faxed to [facility] in [place]. Normal [facility] HGB A1C (GLYCO-HGB)on 2023 Glucose [Mass/Vol] 134 mg/dL Normal [facility] Comment on above: Performed By: #### H A1C, 06765-0 #### [facility] ([id number]) [address], [address] [place] [address] HbA1c (Bld) [Mass fraction] 6.3 % High 4.4-5.6 [facility] Comment on above: Result Comment: NOTE ADA Guidelines Result HgbA1c Normal : less than 5.7 % Prediabetes : 5.7 % to 6.4 % Diabetes : > 6.4 % Use with caution in patients with abnormal hemoglobin variants as the half-life of red blood cells and in vivo glycation rates are affected. Performed By: #### Zee A1C, 69027-5 #### [facility] ([id number]) [address], [address] [place] [address] Lipid 1996 panelon 4 Cholesterol [Mass/Vol] 95 mg/dL Low 150-200 [facility] Comment on above: Performed By: #### Zee A1C, 39745-2 #### [facility] ([id number]) [address], [address] [place] [address] Cholesterol in HDL [Mass/Vol] 50 mg/dL Normal >39 [facility] Comment on above: Result Comment: HDL <40 mg/dL - High Risk HDL > or = 40mg/dL- Desirable HDL >60 mg/dL - Negative Risk Performed By: #### H A1C, 29355-4 #### [facility] ([id number]) [address], [address] [place] [address] Cholesterol in LDL [Mass/Vol] 30 mg/dL Normal <130 [facility] Comment on above: Result Comment: LDL <100 mg/dL - Desirable LDL >160 mg/dL - High Risk Performed By: #### H A1C, 56261-5 #### [facility] ([id number]) [address], [address] [place] [address] Cholesterol in VLDL [Mass/Vol] 15 mg/dL Normal 0-30 [facility] Comment on above: Performed By: #### H A1C, 50319-8 #### [facility] ([id number]) [address], [address] [place] [address] CHOLESTEROL:HDL 1.9 Normal 1.0-5.0 [facility] Comment on above: Performed By: #### H A1C, 97309-7 #### [facility] ([id number]) [address], [address] [place] [address] Triglyceride [Mass/Vol] 73 mg/dL Normal 27-150 [facility] Comment on above: Performed By: #### H A1C, 74767-0 #### [facility] ([id number]) [address], [address] [place] [address] Orders Onlyon 05-05-2024 Orders Only [id number] Kaylie Salomon A 1950 F Date Provider Department Center 05/05/2024 Bouchra-RADHA JARA AFUA Hardin Family History Problem Relation Age of Onset Heart failure Mother Family Status - Relation Status Age at Mother Normal [facility] Orders Onlyon 05-04-2024 Orders Only [id number] Kaylie Salomon A 1950 F Date Provider Department Center 05/04/2024 120-ELIF ESPINOZA Nuris . Family History Problem Relation Age of Onset Heart failure Mother Family Status - Relation Status Age at Mother Normal [facility] Family Medicine Office/Clini c Noteon 03-30-2024 [...] provided. she will have it done at [facility] in [place]. denies needs at this time. RTC 6 months 2. Hypertensive disorder (I10: Essential (primary) hypertension) BP at goal today 3. BMI 45.0-49.9, adult (Z68.42: Body mass index [BMI] 45.0-49.9, adult) BMI educatin given 4. 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 [facility] Comment on above: Result Comment: Elec tronically Signed By: Oh Wynne\.br\Date and Time Signed: 03/30/24 12:26 EDT Home Health Recordson 2023 Home Health Records [id number] [facility] Pre-Visit Planningon 024 Pre-Visit Planning - [...] patient and caregiver states her psychiatrist from [facility] started her on ability due to audible [...] Score or Psychiatry Consult Notes located in [facility]. Based on your medical judgment, [...] please feel free to contact me at [email or web address] [phone]. Thank you! Elif Cabrera LPN From: Oh Wynne To: Elif Cabrera; Sent: 03/06/2024 08:18:11 EDT Subject: RE: Pre-Visit Planning Caller Name: KAYLIE SALOMON; Caller Number: , major depressive disorder, recurrent moderate Normal 272 [facility] Ambulatory Visit Summaryon 0 03-05-2024 Ambulatory Visit [...] 11:20 AM EDT With: Oh Wynne Where: [facility] Invalid Interpretation Code [address] [place] [address]- \.br\ You Need to Complete the Following\.br \ HgbA1c, Blood, Routine collect, 03/05/24, Order for future visit, Lab Collect, Type 2 diabetes mellitus with stage 3b chronic kidney disease [facility] Office/Clini c Noteon 03-05-2024 Family Medicine Office/Clinic [...] of clutter to prevent tripping and/or falling. [place] Advance Directives reviewed. Documents remain at home/ and in patient chart. Patient gets assistance with ADL's and Instrumental ADL's, patient has caregivers that come and stay with her for several hours each day and a daily visiting nurse from [facility]. Cognitive screening completed with memory and clock [...] patient has a visiting RN everyday through [facility]. Medicare provides yearly screening for alcohol and [...] a visiting nurse that comes daily from [facility] and follows with Cardiology, Dr. Gil, every 6 months and more as needed. Last office visit 12/11/23 visit summary notes available in chart for PCP review. Per caregiver patient is going to [facility] to get labs done for cardiology today. 3. Severe persistent asthma, uncomplicated (J45.50: Severe persistent asthma, uncomplicated) Patient takes inhalers as directed, uses PRN nebulizer treatments and inhaler when needed. Follows Dr. Castellon, Pilates Coordinator, yearly and as needed. Patient remains on R/A, o2Sat 92% today, respirations 20, non-labored. Will follow up as needed with Dr. Castellon. 4. Chronic respiratory failure with hypoxia (J96.11: Chronic respiratory failure with hypoxia) See #3. 5. Paroxysmal atrial fibrillation (I48.0: Paroxysmal atrial fibrillation) Follows Food Beverage Supervisor, Dr. Gil every 6 months and as needed. Denies SOB, chest pain or irregular heart rhythm. Manages medications, Eliquis and Metoprolol with office visits. Cardiac-/DASH nutritional education handout reviewed with patient and provided. Tries following healthy dietary intake. Last visit office notes are available in medical (more content not included)... Normal [facility] Comment on above: Result Comment: Elec tronically Signed By: Oh Wynne\.br\Date and Time Signed: 03/05/24 13:34 EDT\.br\Electronically Co-Signed By: Myah Ballard LPN.jai\Date and Time Co-Signed: 03/05/24 12:43 EDT Lab Reportson 03-05-2024 Lab Reports [id number] TIFF Jarrell Smith [facility] Patient Educationon 03-05-20 Patient Education Endocrinology Diabetes Mellitus and Foot Care Foot care is an important part of your health, especially when you have diabetes. Diabetes may cause you to have problems because of poor blood flow (circulation) to your feet and legs, which can cause your skin to: ? Become thinner and soap drier tender. ? Break more easily. ? Heal more [...] immediately. Where to find more information ? [place] [employer]: www.diabetes.org ? Association of Diabetes [...] provider. Document Revised: 04/06/2021 Document Reviewed: 04/06/2021 [employer] Patient Education ? 2022 [employer] Diabetes Mellitus and Nutrition, Adult When you have diabetes, or diabetes mellitus, it is very important to (more content not included)... Normal [facility] Pre-Visit Planningon 024 Pre-Visit Planning [...] feel free to contact me at extension [phone]. Thank you! Elif Cabrera LPN From: Oh Wynne To: Elif Cabrera; Sent: 03/05/2024 08:17:33 EDT Subject: RE: Pre-Visit Planning Caller Name: KAYLIE SALOMON; Caller Number: Zee , M chronic kidney disease stage 3b Normal [address] [place] [address] RAD - CT Reporton 03-05-2024 RAD - CT Report [id number]#1.0 0TIFF Normal [facility] Screenson 03-05-2024 Screens [id number]#1.0 0TIFF Normal [facility] Pre-Visit Planningon 024 Pre-Visit Planning [...] Mammography: *No [facility] Based on your medical judgment, can you [...] feel free to contact me at extension [phone]. Thank you! Elif Cabrera LPN Invalid Interpretation Code 272 [facility] Orders Onlyon 02-25-2024 Orders Only [id number] Kaylie Salomon A 1950 Date Provider Department Center 02/25/2024 ELIF ACOSTA Nuris . 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 OPERATOR RUDDY [phone] ARRIVAL TIME 1030 HOLD ELIQUIS 02/10 MEDICATIONS TO TAKE DAY OF SURGERY WITH SIP OF WATER ALBUTEROL INHALER BREO ELLIPTA METOPROLOL PROTONIX RUDDY AGREES TO BRING PT TO [facility] FOR LAB[facility] ON 02/10 ASKED NELLIE Trevino RN TO SEND LAB ORDERS TO [place] ON 02/05 HOLD VITAMINS AND SUPPLEMENTS 5 DAYS PRIOR TO PROCEDURE HOLD ALL ANTI INFLAMMATORIES ETC:MOTRIN, ADVIL, ALEVE, FOR 5 DAYS PRIOR TO PROCEDURE IF YOU ARE GOING HOME AFTER YOUR SURGERY OR PROCEDURE, FOR YOUR SAFETY, YOUR SURGERY WILL BE CANCELLED IF BOTH OF THE FOLLOWING ARE NOT AVAILABLE: 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 Do not wear perfume, make-up, nail vietnamese, or lotions on the day of your [...] need to make any changes, please call [phone]. Notify your surgeon if you develop any illness such as a cold, cough, fever, sore throat or vomiting between now and your surgery. Thank you for entrusting us with your care. [facility] Surgical Services Team Normal [facility] Orders Onlyon 02-07-2024 Orders Only [id number] Kaylie Salomon 1950 F Date Provider Department Center 02/07/20241986-FILIPE ANSARI [facility] [place] [facility] Family History Problem Relation Age of Onset Heart failure Mother Family Status - Relation Status Age at Mother Normal [facility] Home Health Recordson 2023 Home Health Records [id number]#1.0 0TIFF Jarrell Smith [facility] Ambulatory Visit Summaryon 0 01-09-2024 Ambulatory Visit Summary KAYLIE SALOMON :1950 Visit Date:01/09/2024 Ambulatory Visit Instructions Your Diagnosis Tremor of both hands Drooling Your Care Team Attending Physician - Oh Wynne Primary Care Physician - Oh Wynne This Is Your Medications List [facility] Prescription (TRUE METRIX BLOOD GLUCOSE TEST STRP) [...] Follow-Up Appointments 2023 11:00 AM EDT Where: [facility] M[place]enzie Normal [facility] Family Medicine Office/Clini c Noteon 01-09-2024 Family [...] patient and caregiver states her psychiatrist from [facility] started her on ability due to audible [...] (chronic obstructive pulmonary disease) 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 Normal [facility] Comment on above: Result Comment: Elec tronically Signed By: Oh Wynne\.br\Date and Time Signed: 01/09/24 12:53 EDT BASIC METABOLIC PANELon 04-0 Anion gap [Moles/Vol] 12 mmol/L Normal 7-20 [facility] Comment on above: Performed By: #### L AB15 #### [facility] (BEAKER) [address] [place] [address] Calcium [Mass/Vol] 9.4 mg/dL Normal 8.6-10.3 [facility] Comment on above: Performed By: #### L AB15 #### [facility] (BEAKER) [address] [place] [address] Chloride [Moles/Vol] 98 mmol/L Normal 98-107 [facility] Comment on above: Performed By: #### L AB15 #### [facility] (BEAKER) [address] [facility] [place] [address] CO2 [Moles/Vol] 34 mmol/L High 21-31 [facility] Comment on above: Performed By: #### L AB15 #### [facility] ([facility]) [address] [place] [address] Creatinine [Mass/Vol] 1.63 mg/dL High 0.60-1.20 [facility] Comment on above: Performed By: #### L AB15 #### [facility] ([facility]) [address] [place] [address] GLOMERULAR FILTRATION RATE ML/MIN/1.73 SQ M.PREDICTED 32.5 mL/min/1.73m*2 Low >60.0 [facility] Comment on above: Result Comment: [facility]???s estimated glomerular filtration rate (eGFR) will [...] individuals. Performed By: #### L AB15 #### [facility] ([facility]) [address] [place] [address] Glucose [Mass/Vol] 84 mg/dL Normal 70-100 [facility] Comment on above: Performed By: #### L AB15 #### [facility] ([facility]) [address] [place] [address] Potassium [Moles/Vol] 4.2 mmol/L Normal 3.5-5.1 [facility] Comment on above: Performed By: #### L AB15 #### [facility] ([facility]) [address] [place] [address] Sodium [Moles/Vol] 140 mmol/L Normal 136-145 [facility] Comment on above: Performed By: #### L AB15 #### [facility] ([facility]) [address] [place] [address] Urea nitrogen [Mass/Vol] 49 mg/dL High 7-25 [facility] Comment on above: Performed By: #### L AB15 #### [facility] ([facility]) [address] [place] [address] UREA NITROGEN/CREATININE (MASS RATIO) IN SER/PLAS 30.1 Normal [facility] Comment on above: Performed By: #### L AB15 #### [facility] ([facility]) [address] [place] [address] CBCon 01-07-2024 Erythrocyte distribution width (RBC) [Ratio] 15.9 % High 11.5-15.0 [facility] Comment on above: Performed By: #### L AB294 #### [facility] ([facility]) [address] [place] [address] ERYTHROCYTE MEAN CORPUSCULAR HEMOGLOBIN CONCENTRATION (G/DL) BY AUTOMATED 30.8 g/dL Low 32.0-35.0 [facility] Comment on above: Performed By: #### L AB294 #### [facility] ([facility]) [address] [place] [address] Hematocrit (Bld) [Volume fraction] 35.4 % Low 36.0-48.0 [facility] Comment on above: Performed By: #### L [id number] #### [facility] ([facility]) [address] [place] [address] Hemoglobin (Bld) [Mass/Vol] 10.9 g/dL Low 12.0-15.0 [facility] Comment on above: Performed By: #### L AB294 #### [facility] ([facility]) [address] [facility] [place] [address] MCH (RBC) [Entitic mass] 29.6 pg Normal 27.0-33.0 [facility] Comment on above: Performed By: #### L [id number] #### [facility] [address] [address] MCV (RBC) [Entitic vol] 96.2 fL Normal 82.0-98.0 [facility] Comment on above: Performed By: #### L [id number] #### [facility] ([facility]) [address] [place] [address] PLATELETS (10*3/UL) IN BLOOD AUTOMATED COUNT 244 10*3/uL Normal 150-400 [facility] Comment on above: Performed By: #### L [id number] #### [facility] ([facility]) [address] [place] [address] RBC (Bld) [#/Vol] 3.68 10*6/uL Low 3.80-5.00 [facility] Comment on above: Performed By: #### L [id number] #### [facility] ([facility]) [address] [place] [address] WBC (Bld) [#/Vol] 7.68 10*3/uL Normal 4.00-10.60 [facility] Comment on above: Performed By: #### L [id number] #### [facility] ([facility]) [address] [place] [address] CTA CHEST W IV CONTRASTon CTA CHEST [...] further evaluation. Electronically signed: Steven Solomon. Not Vldtd Invalid Interpretation Code [facility] Comment on above: Order Comment: Doroteo keith schedule prior to February 12 Labon 01-07-2024 Lab [id number] Kaylie Salomon 1950 F Date Provider Department Center 01/07/2024 2073-[facility] OPD LAB RESOURCE [facility] [place] Medical C Family History Problem Relation Age of Onset Heart failure Mother Family Status - Relation Status Age at Mother Normal [facility] Orders Onlyon 01-07-2024 Orders Only [id number] Kaylie Salomon A 1950 Date Provider Department [place] 01/07/2024 ELIF ACOSTA. Family History Problem Relation Age of Onset Heart failure Mother Family Status - Relation Status Age at Mother Normal [facility] Orders Only [id number] Kaylie Salomon A 1950 Date Provider Department [place] 01/07/2024 241-BRIAN GIL [facility] AFUA Duncan Family History Problem Relation Age of Onset Heart failure Mother Family Status - Relation Status Age at Mother Normal [facility] Prep for Procedureon 024 Prep for Procedure [id number] Kaylie Salomon A 1950 Date Provider Department [place] 01/03/2024 1987-FILIPE ANSARI [facility] [place] [facility] Family History Problem Relation Age of Onset Heart failure Mother Family Status - Relation Status Age at Mother Normal [facility] Consultation Noteon 12-13-19 24 Consultation Note [id number] .00TIFF [facility] Orders Onlyon 12-13-2023 Orders Only [id number] Kaylie Salomon 1950 Provider Department Center 12/13/[address] Family History Problem Relation Age of Onset Heart failure Mother Family Status - Relation Status Age at Mother Normal [facility] Office Visiton 12-11-2023 Follow-up visit [id number] Kaylie Salomon A 1950 Provider Department [place] 12/11/2023 ELIF ACOSTA AFUA Hardin Family History Problem Relation Age of Onset Heart failure Mother Family Status - Relation Status Age at Mother Level of Service:48225 [place] OFFICE/OUTPATIENT ESTABLISHED MOD MDM 30 MIN Normal [facility] Plan of Care - PT/OT/Speecho n 12-05-2023 Plan of Care - PT/OT/Speech [id number]#1.0 0TIFF Normal [facility] Telephoneon 11-29-2023 Telephone [id number] Kaylie Salomon 1950 F Date Provider Department Center 11/29/2023 BRIAN DIXON AFUA [facility] Family History Problem Relation Age of Onset Heart failure Mother Family Status - Relation Status Age at Mother Reason for Visit and Comments: Med Refill [[id number]] Normal [facility] Physician Referralon 024 Physician Referral [id number]#1.0 0TIFF Normal [facility] Home Health Recordson 2023 Home Health Records [id number]#1.0 0TIFF Normal [facility] Cardiovascular Reporton Cardiovascular Report [id number]#1.0 0TIFF Normal [facility] Lab Reportson 11-01-2023 Lab Reports [id number]#1.0 0TIFF Normal [facility] 36on 10-31-2023 36 I called Miguelina and told her thyroid labs abnormal. I confirmed PCP. The PCP office is currently closed and unable to get fax number. I will get sent next Saturday when I am back in the office. Normal [facility] BASIC METABOLIC PANELon Anion gap [Moles/Vol] 9 mmol/L Normal 7-20 [facility] Comment on above: Performed By: #### L AB15 ####[facility] (BEAKER)[address] [place] [address] Calcium [Mass/Vol] 9.4 mg/dL Normal 8.6-10.3 [facility] Comment on above: Performed By: #### L AB15 ####[facility] (BEAKER)[address] [place] [address] Chloride [Moles/Vol] 101 mmol/L Normal 98-107 [facility] Comment on above: Performed By: #### L AB15 ####[facility] (BEAKER)[address] [place] [address] CO2 [Moles/Vol] 35 mmol/L High 21-31 [facility] Comment on above: Performed By: #### L AB15 ####[facility] ([facility] [place] [address] Creatinine [Mass/Vol] 1.25 mg/dL High 0.60-1.20 [facility] Comment on above: Performed By: #### L AB15 ####[facility] ([facility])[address] [place] [address] GLOMERULAR FILTRATION RATE ML/MIN/1.73 SQ M.PREDICTED 44.9 mL/min/1.73m*2 Low >60.0 [facility] Comment on above: Result Comment: [facility]???s estimated glomerular filtration rate (eGFR) will [...] of individuals. Performed By: #### L AB15 ####[facility] ([facility] [place] [address] Glucose [Mass/Vol] 125 mg/dL High 70-100 [facility] Comment on above: Performed By: #### L AB15 ####[facility] (BEAKER)[address] [place] [address] Potassium [Moles/Vol] 4.2 mmol/L Normal 3.5-5.1 [facility] Comment on above: Performed By: #### L AB15 ####[facility] (BEAKER)[address] [place] [address] Sodium [Moles/Vol] 141 mmol/L Normal 136-145 [facility] Comment on above: Performed By: #### L AB15 ####[facility] (BEAKER)[address] [place] [address] Urea nitrogen [Mass/Vol] 42 mg/dL High 7-25 [facility] Comment on above: Performed By: #### L AB15 ####[facility] (BEAKER)[address] [place] [address] UREA NITROGEN/CREATININE (MASS RATIO) IN SER/PLAS 33.6 Normal [facility] Comment on above: Performed By: #### L AB15 ####[facility] (BEAKER)[address] [place] [address] HPon 10-31-2023 [facility] Electrophysiology Consult Note Reason for visit: A-fib, [...] seafood Sulfa (Sulfonamide Antibiotics) Other and Unknown Soasnkyu-Aksbbvykee-Ma lymyxin Rash Penicillins Rash Weight: 122kg Visit [...] bedtime. benralizumab (Fasenra Pen) 30 mg/mL auto-injector Briseida Santamariata 100-25 mcg/dose inhaler Use 1 puff in [...] EVERY DAY (more content not included)... Normal [facility] MAGNESIUMon 10-31-2023 Magnesium [Mass/Vol] 2.0 mg/dL Normal 1.9-2.7 [facility] Comment on above: Performed By: #### L [id number] ####[facility] (BEAKER)[address] [place] [address] NURSNOTEon 10-31-2023 NURSNOTE RN educated pt and caregiver on discharge instructions. RN encouraged pt to voice any questions or concerns. Pt verbalizes no questions or concerns at this time. Pt was wheeled off unit with all belongings. Normal [facility] T4, FREEon 10-31-2023 THYROXINE (T4) FREE (NG/DL) IN SER/PLAS 0.98 ng/dL Normal 0.71-1.85 [facility] Comment on above: Performed By: #### L [id number] #### [facility] (BEAKER) [address] [place] [address] TSH3 REFLEX TO FT4on 024 THYROTROPIN (MIU/L) IN SER/PLAS BY DETECTION LIMIT <= 0.05 MIU/L 6.15 mIU/L High 0.34-5.60 [facility] Comment on above: Performed By: #### L [id number] #### [facility] (BEAKER) [address] [place] [address] CBC AND AUTO DIFFon 10-24-19 24 ABSOLUTE BASOPHIL 0.1 X10E9/L Normal 0.0-0.2 [facility] Comment on above: Performed By: #### 3 024-7, CBCA, TSHR, 66931-6 #### [facility] ([id number]) [address], [address] [place] [address] ABSOLUTE NEUTROPHIL 6.1 X10E9/L Normal 1.5-6.6 [facility] Comment on above: Performed By: #### 3 024-7, CBCA, TSHR, 68970-9 #### [facility] ([id number]) [address] [place] [address] Basophils/100 WBC (Bld) 0.7 % Normal [facility] Comment on above: Performed By: #### 3 024-7, CBCA, TSHR, 28184-4 #### [facility] ([id number]) [address], [address] [place] [address] Eosinophils (Bld) [#/Vol] 0.0 10*3/uL Normal 0.0-0.4 [facility] Comment on above: Performed By: #### 3 024-7, CBCA, TSHR, #### [facility] ([id number]) [address], [address] [place] [address] Eosinophils/100 WBC (Bld) 0.0 % Normal [facility] Comment on above: Performed By: #### 3 024-7, CBCA, TSHR, #### [facility] ([id number]) [address], [address] [place] [address] Erythrocyte distribution width (RBC) [Ratio] 15.9 % High 11.5-15.0 [facility] Comment on above: Performed By: #### 3 024-7, CBCA, TSHR, #### [facility] ([id number]) [address] [address] [place] [address] Hematocrit (Bld) [Volume fraction] 37.3 % Normal 35-47 [facility] Comment on above: Performed By: #### 3 024-7, CBCA, TSHR, #### [facility] ([id number]) [address], [address] [place] [address] Hemoglobin (Bld) [Mass/Vol] 12.1 g/dL Normal 11.7-15.5 [facility] Comment on above: Performed By: #### 3 024-7, CBCA, TSHR, #### [facility] ([id number]) [address] [place] [address] Lymphocytes (Bld) [#/Vol] 1.1 10*3/uL Normal 1.0-3.5 [facility] Comment on above: Performed By: #### 3 024-7, CBCA, TSHR, #### [facility] ([id number]) [address] [address] [place] [address] Lymphocytes/100 WBC (Bld) 13.6 % Normal [facility] Comment on above: Performed By: #### 3 024-7, CBCA, TSHR, #### [facility] ([id number]) [address] [place] [address] MCH (RBC) [Entitic mass] 28.7 pg Normal 27-34 [facility] Comment on above: Performed By: #### 3 024-7, CBCA, TSHR, #### [facility] ([id number]) [address] [address] [place] [address] MCHC (RBC) [Mass/Vol] 32.5 g/dL Normal 32-36 [facility] Comment on above: Performed By: #### 3 024-7, CBCA, TSHR, #### [facility] ([id number]) [address] [place] [address] MCV (RBC) [Entitic vol] 88 fL Normal 80-100 [facility] Comment on above: Performed By: #### 3 024-7, CBCA, TSHR, #### [facility] ([id number]) [address] [address] [place] [address] Monocytes (Bld) [#/Vol] 0.5 10*3/uL Normal 0-0.9 [facility] Comment on above: Performed By: #### 3 024-7, CBCA, TSHR, #### [facility] ([id number]) [address] [address] [place] [address] Monocytes/100 WBC (Bld) 7.0 % Normal [facility] Comment on above: Performed By: #### 3 024-7, CBCA, TSHR, 52162-5 #### [facility] ([id number]) [address] [place] [address] Neutrophils/100 WBC (Bld) 78.7 % Normal [facility] Comment on above: Performed By: #### 3 024-7, CBCA, TSHR, #### [facility] ([id number]) [address] [facility] [address] [place] [address] Platelet mean volume (Bld) [Entitic vol] 8.6 fL Normal 7-12 [facility] Comment on above: Performed By: #### 3 024-7, CBCA, TSHR, #### [facility] ([id number]) [address] [address] [place] [address] Platelets (Bld) [#/Vol] 286 10*3/uL Normal 150-450 [facility] Comment on above: Performed By: #### 3 024-7, CBCA, TSHR, 56155-8 #### [facility] ([id number]) [address] [place] [address] RBC COUNT 4.23 X10E12/L Normal 3.80-5.20 [facility] Comment on above: Performed By: #### 3 024-7, CBCA, TSHR, #### [facility] ([id number]) [address] [address] [place] [address] WBC (Bld) [#/Vol] 7.8 10*3/uL Normal 4.0-11.0 [facility] Comment on above: Performed By: #### 3 024-7, CBCA, TSHR, #### [facility] ([id number]) [address] [place] [address] FREE T4on 10-24-2023 Free T4 [Mass/Vol] 1.11 ng/dL Normal 0.61-1.60 [facility] Comment on above: Performed By: #### 3 024-7, CBCA, TSHR, 87259-0 #### [facility] ([id number]) [address] [place] [address] MAGNESIUMon 10-24-2023 Magnesium [Mass/Vol] 2.0 mg/dL Normal 1.8-2.6 [facility] Comment on above: Performed By: #### 3 024-7, CBCA, TSHR, 12497-0 #### [facility] ([id number]) [address] [facility], [address] [place] [address] TSH WITH REFLEXon 10-24-2023 TSH 5.36 uIU/mL High 0.49-4.67 [facility] Comment on above: Performed By: #### 3 024-7, CBCA, TSHR, 32365-6 #### [facility] ([id number]) [address], [address] [place] [address] Orders Onlyon 10-23-2023 Orders Only [id number] Kaylie Salomon 1950 F Date Provider Department Center 10/23/2023 [facility]ENN[facility] Family History Problem Relation Age of Onset Heart failure Mother Family Status - Relation Status Age at Mother Normal [facility] Office Visiton 09-17-2023 Follow-up visit [id number] Kaylie Salomon 1950 F Date Provider Department Center 09/17/2023 241-BRIAN GIL [facility] Family History Problem Relation Age of Onset Heart failure Mother Family Status - Relation Status Age at Mother Level of Service:09913 [place] OFFICE/OUTPATIENT NEW MODERATE MDM 45 MINUTES Normal [facility] Consultation Noteon 09-13-20 23 Consultation Note [id number]#1.0 0TIFF Normal [facility] CBC W Auto Differential pane l (Bld)on 09-12-2023 Basophils (Bld) [#/Vol] 10*3/uL Normal <0.11 [facility] Comment on above: Order Comment: Speci men Type: BLOOD SPECIMEN Ordering Facility: [facility] Address: [address] [place] [address] Performed By: #### 5 7021-8 #### [facility] CLIA [id number] [address] [place] [address] 20018 Basophils/100 WBC (Bld) 0.2 % Normal [facility] Comment on above: Order Comment: Speci men Type: BLOOD SPECIMEN Ordering Facility: [facility] Address: [address] [place] [address] Performed By: #### 5 7021-8 #### [facility] CLIA [id number] [address] [place] [address] 78471 Differential cell count method Nom (Bld) Auto Normal [facility] Comment on above: Order Comment: Speci men Type: BLOOD SPECIMEN Ordering Facility: [facility] Address: [address] [place] [address] Performed By: #### 5 7021-8 #### [facility] CLIA [id number] [address] [place] [address] 56314 Eosinophils (Bld) [#/Vol] 10*3/uL Normal <0.46 [facility] Comment on above: Order Comment: Speci men Type: BLOOD SPECIMEN Ordering Facility: [facility] Address: [address] [place] [address] Performed By: #### 5 7021-8 #### [facility] CLIA [id number] [address] [place] [address] 41790 Eosinophils/100 WBC (Bld) 0.0 % Normal [facility] Comment on above: Order Comment: Speci men Type: BLOOD SPECIMEN Ordering Facility: [facility] Address: [address] [place] [address] Performed By: #### 5 7021-8 #### [facility] CLIA [id number] [address] [place] [address] 63058 Erythrocyte distribution width (RBC) [Ratio] 14.5 % Normal 11.5-15.0 [facility] Comment on above: Order Comment: Speci men Type: BLOOD SPECIMEN Ordering Facility: [facility] Address: [address] [place] [address] Performed By: #### 5 7021-8 #### [facility] CLIA [id number] [address] [place] [address] 42823 Hematocrit (Bld) [Volume fraction] 38.7 % Normal 36.0-46.0 [facility] Comment on above: Order Comment: Speci men Type: BLOOD SPECIMEN Ordering Facility: [facility] Address: [address] [place] [address] Performed By: #### 5 7021-8 #### [facility] CLIA [id number] [address] [place] [address] 64335 Hemoglobin (Bld) [Mass/Vol] 11.7 g/dL Normal 11.5-15.5 [facility] Comment on above: Order Comment: Speci men Type: BLOOD SPECIMEN Ordering Facility: [facility] Address: [address] [place] [address] Performed By: #### 5 7021-8 #### [facility] CLIA [id number] [address] [place] [address] 73913 Immature granulocytes (Bld) [#/Vol] 0.03 10*3/uL Normal <0.10 [facility] Comment on above: Order Comment: Speci men Type: BLOOD SPECIMEN Ordering Facility: [facility] Address: [address] [place] [address] Performed By: #### 5 7021-8 #### [facility] CLIA [id number] [address] [place] [address] 22321 Immature granulocytes/100 WBC (Bld) 0.3 % Normal [facility] Comment on above: Order Comment: Speci men Type: BLOOD SPECIMEN Ordering Facility: [facility] Address: [address] [place] [address] Performed By: #### 5 7021-8 #### [facility] CLIA [id number] [address] [place] [address] 56476 Lymphocytes (Bld) [#/Vol] 1.10 10*3/uL Normal 1.00-4.00 [facility] Comment on above: Order Comment: Speci men Type: BLOOD SPECIMEN Ordering Facility: [facility] Address: [address] [place] [address] Performed By: #### 5 7021-8 #### [facility] CLIA [id number] [address] [place] [address] 94956 Lymphocytes/100 WBC (Bld) 11.2 % Normal [facility] Comment on above: Order Comment: Speci men Type: BLOOD SPECIMEN Ordering Facility: [facility] Address: [address] [place] [address] Performed By: #### 5 7021-8 #### [facility] CLIA [id number] [address] [place] [address] 19725 MCH (RBC) [Entitic mass] 27.5 pg Normal 26.0-34.0 [facility] Comment on above: Order Comment: Speci men Type: BLOOD SPECIMEN Ordering Facility: [facility] Address: [address] [place] [address] Performed By: #### 5 7021-8 #### [facility] CLIA [id number] [address] [place] [address] 34776 MCHC (RBC) [Mass/Vol] 30.2 g/dL Low 30.5-36.0 [facility] Comment on above: Order Comment: Speci men Type: BLOOD SPECIMEN Ordering Facility: [facility] Address: [address] [place] [address] Performed By: #### 5 7021-8 #### [facility] CLIA [id number] [address] [place] [address] 05640 MCV (RBC) [Entitic vol] 91.1 fL Normal 80.0-100.0 [facility] Comment on above: Order Comment: Speci men Type: BLOOD SPECIMEN Ordering Facility: [facility] Address: [address] [place] [address] Performed By: #### 5 7021-8 #### [facility] CLIA [id number] [address] [place] [address] 43809 Monocytes (Bld) [#/Vol] 0.92 10*3/uL High <0.87 [facility] Comment on above: Order Comment: Speci men Type: BLOOD SPECIMEN Ordering Facility: [facility] Address: [address] [place] [address] Performed By: #### 5 7021-8 #### [facility] CLIA [id number] [address] [place] [address] 78322 Monocytes/100 WBC (Bld) 9.4 % Normal [facility] Comment on above: Order Comment: Speci men Type: BLOOD SPECIMEN Ordering Facility: [facility] Address: [address] [place] [address] Performed By: #### 5 7021-8 #### [facility] CLIA [id number] [address] [place] [address] 86094 Neutrophils (Bld) [#/Vol] 7.74 10*3/uL High 1.45-7.50 [facility] Comment on above: Order Comment: Speci men Type: BLOOD SPECIMEN Ordering Facility: [facility] Address: [address] [place] [address] Performed By: #### 5 7021-8 #### [facility] CLIA [id number] [address] [place] [address] 29484 Neutrophils/100 WBC (Bld) 78.9 % Normal [facility] Comment on above: Order Comment: Speci men Type: BLOOD SPECIMEN Ordering Facility: [facility] Address: [address] [place] [address] Performed By: #### 5 7021-8 #### [facility] CLIA [id number] [address] [place] [address] 17090 Nucleated RBC (Bld) [#/Vol] 10*3/uL Normal <0.01 [facility] Comment on above: Order Comment: Speci men Type: BLOOD SPECIMEN Ordering Facility: [facility] Address: [address] [place] [address] Performed By: #### 5 7021-8 #### [facility] CLIA [id number] [address] [place] [address] 08766 Nucleated RBC/100 WBC (Bld) [Ratio] 0.0 /100 WBC Normal [facility] Comment on above: Order Comment: Speci men Type: BLOOD SPECIMEN Ordering Facility: [facility] Address: [address] [place] [address] Performed By: #### 5 7021-8 #### [facility] CLIA [id number] [address] [place] [address] 62509 Platelet mean volume (Bld) [Entitic vol] 9.4 fL Normal 9.0-12.7 [facility] Comment on above: Order Comment: Speci men Type: BLOOD SPECIMEN Ordering Facility: [facility] Address: [address] [place] [address] Performed By: #### 5 7021-8 #### [facility] CLIA [id number] [address] [place] [address] 93918 Platelets (Bld) [#/Vol] 279 10*3/uL Normal 150-400 [facility] Comment on above: Order Comment: Speci men Type: BLOOD SPECIMEN Ordering Facility: [facility] Address: [address] [place] [address] Performed By: #### 5 7021-8 #### [facility] CLIA [id number] [address] [place] [address] 63737 RBC (Bld) [#/Vol] 4.25 10*6/uL Normal 3.90-5.20 [facility] Comment on above: Order Comment: Speci men Type: BLOOD SPECIMEN Ordering Facility: [facility] Address: [address] [place] [address] Performed By: #### 5 7021-8 #### [facility] CLIA [id number] [address] [place] [address] WBC (Bld) [#/Vol] 9.81 10*3/uL Normal 3.70-11.00 [facility] Comment on above: Order Comment: Speci men Type: BLOOD SPECIMEN Ordering Facility: [facility] Address: [address] [place], [place] [address] Performed By: #### 5 7021-8 #### [facility] CLIA [id number] [address] [place] [address] CNOVSPon 09-12-2023 CNOVSP Visit (SP) Office ([place]AS[place]) KAYLIE SALOMON ([id number]) 1950 F Date Time Provider Department 09/12/23 1:15 PM REGINALD ARAGON During your visit today, we recorded the following information about you: Temperature Pulse Respiration Blood pressure 97.7 degrees 88/minute 16/minute 108/67 Weight Height 121.6 kg 1.677 m Reginald Aragon MD 09/12/2023 7:56 PM Signed PATIENT NAME: Kaylie Salomon DATE: 09/12/2023 PRIMARY CARE PHYSICIAN: Dr. Landeros OTHER PHYSICIANS: Dr. Ramon Smith, [facility] XRT Portions of this encounter note [...] on 03/14/2023) ALLERGIES: Clarithromycin, Conjugated Estrogens, Neosporin [Ciyrtxah-Capjqvlqyr-M olymyxin], Paclitaxel, Peanut, Penicillins, and Sulfa (Sulfonamide Antibiotics) PAST MEDICAL HISTORY: PAST MEDICAL HISTORY Diagnosis Date AF (atrial fibrillation) ([facility]) Asthma Breast cancer (HCC) 02/[address] Landeros COPD (chronic obstructive pulmonary disease) ([facility]) Edema Hyperlipidemia Hypertension OA (osteoarthritis [...] Skin: Ne (more content not included)... Normal [facility] KAYLIE SALOMON ([id number]) 1950 F Date Time Provider Department 09/12/23 CARIN RAMOS During your visit today, we recorded the following information about you: Carin Ramos RN 09/12/2023 1:42 PM Signed BRM/HM: Please sign pended order Orders sent to [facility] special [facility], [facility] PH: [phone] Will notifagustin Gricel, customer care consultant, once signed DILCIA Velasco Natalie, RN 09/12/2023 2:59 PM Signed Ordered faxed to [facility] Ramos RN Allergies As of Date: 09/12/2023 Noted Allergy Reaction CLARITHROMYCIN 01/27/2010 16 - Unknown CONJUGATED ESTROGENS 01/27/2010 16 - Unknown NEOSPORIN ([id number]-[id number]-[id number] O*05/06/2019 2 - Rash PACLITAXEL 08/24/2019 14 [...] right breast [Z90.11] Order(s):BREAST PROSTHESIS, MASTECTOMY BRA [[id number]] Order #: [id number] Prescriptions as of 09/12/2023 - BREO ELLIPTA [...] Status:Closed by CARIN RAMOS on 09/12/23 Normal [facility] Cancer Ag27-29 SerPl-aCncon 09-12-2023 Cancer Ag 27-29 Qn 31.6 [arb'U]/mL Normal <38.6 [facility] Comment on above: Order Comment: Speci men Type: BLOOD SPECIMEN Ordering Facility: [facility] Address: [address] [place] [address] Result Comment: The CA27.29 test was performed using the Siem[employer]aur XP chemiluminometric immunoassay method. Results obtained with different assay methods or kits cannot be used interchangeably. Performed By: #### 5 7021-8 #### [facility] CLIA [id number] [address] [place] [address] 73050 Comprehensive metabolic 2000 panelon 09-12-2023 Albumin [Mass/Vol] 4.4 g/dL Normal 3.9-4.9 [facility] Comment on above: Order Comment: Speci men Type: BLOOD SPECIMEN Ordering Facility: [facility] Address: [address] [place] [id number] Performed By: #### 5 7021-8 #### [facility] CLIA [id number] [address] [place] [address] 05476 ALP [Catalytic activity/Vol] 87 U/L Normal 34-123 [facility] Comment on above: Order Comment: Speci men Type: BLOOD SPECIMEN Ordering Facility: [facility] Address: [address] [place] [address] Performed By: #### 5 7021-8 #### [facility] CLIA [id number] [address] [place] [address] ALT [Catalytic activity/Vol] 11 U/L Normal 7-38 [facility] Comment on above: Order Comment: Speci men Type: BLOOD SPECIMEN Ordering Facility: [facility] Address: [address] [place] [address] Performed By: #### 5 7021-8 #### [facility] CLIA [id number] [address] [place] [address] 55128 Anion gap [Moles/Vol] 10 mmol/L Normal 9-18 [facility] Comment on above: Order Comment: Speci men Type: BLOOD SPECIMEN Ordering Facility: [facility] Address: [address] [place] [address] Performed By: #### 5 7021-8 #### [facility] CLIA [id number] [address] [place] [address] 35884 AST [Catalytic activity/Vol] 14 U/L Normal 13-35 [facility] Comment on above: Order Comment: Speci men Type: BLOOD SPECIMEN Ordering Facility: [facility] Address: [address] [place] [address] Performed By: #### 5 7021-8 #### [facility] CLIA [id number] [address] [place] [address] 87149 Bilirubin [Mass/Vol] 0.6 mg/dL Normal 0.2-1.3 [facility] Comment on above: Order Comment: Speci men Type: BLOOD SPECIMEN Ordering Facility: [facility] Address: [address] [place] [address] Performed By: #### 5 7021-8 #### [facility] CLIA [id number] [address] [place] [address] 97989 Calcium [Mass/Vol] 9.7 mg/dL Normal 8.5-10.2 [facility] Comment on above: Order Comment: Speci men Type: BLOOD SPECIMEN Ordering Facility: [facility] Address: [address] [place] [address] Performed By: #### 5 7021-8 #### [facility] CLIA [id number] [address] [place] [address] 21067 Chloride [Moles/Vol] 96 mmol/L Low 97-105 [facility] Comment on above: Order Comment: Speci men Type: BLOOD SPECIMEN Ordering Facility: [facility] Address: [address] [place] [address] Performed By: #### 5 7021-8 #### [facility] CLIA [id number] [address] [place] [address] 59242 CO2 [Moles/Vol] 31 mmol/L High 22-30 [facility] Comment on above: Order Comment: Speci men Type: BLOOD SPECIMEN Ordering Facility: [facility] Address: [address] [place] [address] Performed By: #### 5 7021-8 #### [facility] CLIA [id number] [address] [place] [address] 48149 Creatinine [Mass/Vol] 1.10 mg/dL High 0.58-0.96 [facility] Comment on above: Order Comment: Speci men Type: BLOOD SPECIMEN Ordering Facility: [facility] Address: [address] [place] [address] Performed By: #### 5 7021-8 #### [facility] CLIA [id number] [address] [place], [place] [address] Creatinine and Glomerular filtration rate.predicted panel (S/P/Bld) 53 mL/min/1.73m??? Low >=60 [facility] Comment on above: Order Comment: Speci men Type: BLOOD SPECIMEN Ordering Facility: [facility] Address: [address] [place] [address] Result Comment: Violette mated Glomerular Filtration Rate [...] GFR. Performed By: #### 5 7021-8 #### [facility] CLIA [id number] [address] [place] [address] 14213 Glucose [Mass/Vol] 115 mg/dL High 74-99 [facility] Comment on above: Order Comment: Jennifer stahl Type: BLOOD SPECIMEN Ordering Facility: [facility] Address: [address] [id number] Result Comment: The [place] Diabetes Association (ADA) provides guidance for cutoff [...] Standards of Medical Care in Diabetes 2016, [place] [employer]. Diabetes Care. 2016.39(Suppl 1). Performed By: #### 5 7021-8 #### [facility] CLIA [id number] [address] [place] [address] 40546 Potassium [Moles/Vol] 4.4 mmol/L Normal 3.7-5.1 [facility] Comment on above: Order Comment: Jennifer stahl Type: BLOOD SPECIMEN Ordering Facility: [facility] Address: [address] [place] [address] Performed By: #### 5 7021-8 #### [facility] CLIA [id number] [address] [place] [address] 29221 Protein [Mass/Vol] 7.4 g/dL Normal 6.3-8.0 [facility] Comment on above: Order Comment: Jennifer stahl Type: BLOOD SPECIMEN Ordering Facility: [facility] Address: [address] [place] [address] Performed By: #### 5 7021-8 #### [facility] CLIA [id number] [address] [place] [address] 03017 Sodium [Moles/Vol] 137 mmol/L Normal 136-144 [facility] Comment on above: Order Comment: Speci men Type: BLOOD SPECIMEN Ordering Facility: [facility] Address: [address] [place] [address] Performed By: #### 5 7021-8 #### [facility] CLIA [id number] [address] [place] [address] 91457 Urea nitrogen [Mass/Vol] 36 mg/dL High 7-21 [facility] Comment on above: Order Comment: Speci men Type: BLOOD SPECIMEN Ordering Facility: [facility] Address: [address] [place] [address] Performed By: #### 5 7021-8 #### [facility] CLIA [id number] [address] [place] [address]18 [facility] 2022 Home Health Records [id number]#1.0 0TIFF [facility] 2022 Home Health Records [id number]#1.0 0TIFF [facility] Office Visiton 08-29-2023 Follow-up visit [id number] Kaylie Salomon 1950 Date Provider Department Center 08/29/2023 [id number] POLANCO AFUA Hardin Family History Problem Relation Age of Onset Heart failure Mother Family Status - Relation Status Age at Mother Level of Service:40810 [place] OFFICE/OUTPATIENT ESTABLISHED MOD MDM 30-39 MIN Normal [facility] Office Visiton 08-19-2023 Follow-up visit [id number] Kaylie Salomon 1950 F Date Provider Department Center 08/19/2023 PIETRO CAMARILLO AFUA [facility] Family History Problem Relation Age of Onset Heart failure Mother Family Status - Relation Status Age at Mother Level of Service:55646 [place] OFFICE/OUTPATIENT ESTABLISHED MOD MDM 30-39 MIN Normal [facility] RAD - CT Reporton 08-14-2023 RAD - CT Report [id number]#1.0 0TIFF Normal [facility] 2022 Home Health Records [id number]#1.0 0TIFF [facility] Outside Mammographyon 2022 Outside Mammography [id number]#1.0 0CD:127 [facility] 2022 Home Health Records [id number]#1.00 CD:127 [facility] Health Record[facility] 2022 Home Health Records [id number] 0CD:127 [facility] CNPNon 06-07-2023 CNPN Telephone (HEMASA) KAYLIE SALOMON ([id number]) 1950 F Date Time Provider Department 06/07/23 NGA ZHAO During your visit today, we recorded the following information about you: Nga Zhao, RN 06/07/2023 10:17 AM Addendum Shelli called stating Kaylie needs scheduled for her Mammogram as she is due this month per office note. Pt does not have current order. Order pended Shayy: Please review and sign pending order. PSS: Pt needs scheduled at [facility]. Thanks! DILCIA Carroll Natalie, RN 06/10/2023 1:00 PM Signed Spoke to child day care provider. She has not heard from anyone regarding scheduling of Mammogram at [place]. Order faxed to [facility] scheduling. She is aware to call if she has not heard from them in the next week. She denies further needs at this time Carin Ramos RN Allergies As of Date: 06/07/2023 Noted Allergy Reaction CLARITHROMYCIN 01/27/2010 16 - Unknown CONJUGATED ESTROGENS 01/27/2010 16 - Unknown NEOSPORIN ([id number] O*05/06/2019 2 - Rash PACLITAXEL 08/24/2019 14 [...] negative (HCC) [C50.811, Z17.1] Order(s):[facility] [[id number]] Order #: [id number] FUTURE Prescriptions as of 06/10/2023 - potassium [...] Status:Closed by CARIN RAMOS on 06/10/23 Normal [facility] 2022 Home Health Records [id number]#1.0 0CD:127 Normal [facility] 04-10-2023 CNPN Telephone (HEMTSA) KAYLIE SALOMON ([id number]) 1950 F Date Time Provider Department 04/10/23 CARIN RAMOS During your visit today, we recorded the following information about you: Carin Ramos RN 04/10/2023 10:45 AM Signed Requested labs to PCP for appt. Faxed to [phone] Carin Ramos RN Allergies As of Date: 04/10/2023 Noted Allergy Reaction CLARITHROMYCIN 01/27/2010 16 - Unknown CONJUGATED ESTROGENS 01/27/2010 16 - Unknown NEOSPORIN ([id number]-[id number]-U O*05/06/2019 2 - Rash PACLITAXEL 08/24/2019 14 [...] *06/17/2019 Encounter Status:Closed [facility] ([place]) KAYLIE SALOMON ([id number]) 1950 F Date Time Provider Department 04/04/23 [...] CONJUGATED ESTROGENS 01/27/2010 16 - Unknown NEOSPORIN ([id number] O*05/06/2019 2 - Rash PACLITAXEL 08/24/2019 14 [...] Status:Closed by ANGELINA BOO on 04/04/23 Normal [facility] CBC W Auto Differential pane l (Bld)on 03-14-2023 Basophils (Bld) [#/Vol] 10*3/uL Normal <0.11 [facility] Comment on above: Order Comment: Speci men Type: BLOOD SPECIMEN Ordering Facility: [facility] Address: [address] [place] [address] Performed By: #### 5 7021-8 #### [facility] CLIA [id number] [address] [place] [address] 26461 Basophils/100 WBC (Bld) 0.2 % Normal [facility] Comment on above: Order Comment: Speci men Type: BLOOD SPECIMEN Ordering Facility: [facility] Address: [address] [place] [address] Performed By: #### 5 7021-8 #### [facility] CLIA [id number] [address] [place] [address] 89597 Differential cell count method Nom (Bld) Auto Normal [facility] Comment on above: Order Comment: Speci men Type: BLOOD SPECIMEN Ordering Facility: [facility] Address: [address] [place] [address] Performed By: #### 5 7021-8 #### [facility] CLIA [id number] [address] [place] [address] 49013 Eosinophils (Bld) [#/Vol] 10*3/uL Normal <0.46 [facility] Comment on above: Order Comment: Speci men Type: BLOOD SPECIMEN Ordering Facility: [facility] Address: [address] [place] [address] Performed By: #### 5 7021-8 #### [facility] CLIA [id number] [address] [place] [address] 55192 Eosinophils/100 WBC (Bld) 0.0 % Normal [facility] Comment on above: Order Comment: Speci men Type: BLOOD SPECIMEN Ordering Facility: [facility] Address: [address] [place] [address] Performed By: #### 5 7021-8 #### [facility] CLIA [id number] [address] [place] [address] 67116 Erythrocyte distribution width (RBC) [Ratio] 14.3 % Normal 11.5-15.0 [facility] Comment on above: Order Comment: Speci men Type: BLOOD SPECIMEN Ordering Facility: [facility] Address: [address] [place] [address] Performed By: #### 5 7021-8 #### [facility] CLIA [id number] [address] [place] [address] 00005 Hematocrit (Bld) [Volume fraction] 38.4 % Normal 36.0-46.0 [facility] Comment on above: Order Comment: Speci men Type: BLOOD SPECIMEN Ordering Facility: [facility] Address: [address] [place] [address] Performed By: #### 5 7021-8 #### [facility] CLIA [id number] [address] [place] [address] 60848 Hemoglobin (Bld) [Mass/Vol] 11.7 g/dL Normal 11.5-15.5 [facility] Comment on above: Order Comment: Speci men Type: BLOOD SPECIMEN Ordering Facility: [facility] Address: [address] [place] [address] Performed By: #### 5 7021-8 #### [facility] CLIA [id number] [address] [place] [address] 62540 Immature granulocytes (Bld) [#/Vol] 10*3/uL Normal <0.10 [facility] Comment on above: Order Comment: Speci men Type: BLOOD SPECIMEN Ordering Facility: [facility] Address: [address] [place] [address] Performed By: #### 5 7021-8 #### [facility] CLIA [id number] [address] [place] [address] 74851 Immature granulocytes/100 WBC (Bld) 0.2 % Normal [facility] Comment on above: Order Comment: Speci men Type: BLOOD SPECIMEN Ordering Facility: [facility] Address: [address] [address] Performed By: #### 5 7021-8 #### [facility] CLIA [id number] [address] [place] [address] 81757 Lymphocytes (Bld) [#/Vol] 1.41 10*3/uL Normal 1.00-4.00 [facility] Comment on above: Order Comment: Speci men Type: BLOOD SPECIMEN Ordering Facility: [facility] Address: [address] [address] Performed By: #### 5 7021-8 #### [facility] CLIA [id number] [address] [place] [address] 31983 Lymphocytes/100 WBC (Bld) 14.2 % Normal [facility] Comment on above: Order Comment: Speci men Type: BLOOD SPECIMEN Ordering Facility: [facility] Address: [address] [address] Performed By: #### 5 7021-8 #### [facility] CLIA [id number] [address] [place] [address] 05076 MCH (RBC) [Entitic mass] 28.8 pg Normal 26.0-34.0 [facility] Comment on above: Order Comment: Speci men Type: BLOOD SPECIMEN Ordering Facility: [facility] Address: [address] [place] [address] Performed By: #### 5 7021-8 #### [facility] CLIA [id number] [address] [place] [address] 05920 MCHC (RBC) [Mass/Vol] 30.5 g/dL Normal 30.5-36.0 [facility] Comment on above: Order Comment: Speci men Type: BLOOD SPECIMEN Ordering Facility: [facility] Address: [address] [address] Performed By: #### 5 7021-8 #### [facility] CLIA [id number] [address] [place] [address] 53884 MCV (RBC) [Entitic vol] 94.6 fL Normal 80.0-100.0 [facility] Comment on above: Order Comment: Speci men Type: BLOOD SPECIMEN Ordering Facility: [facility] Address: [address] [address] Performed By: #### 5 7021-8 #### [facility] CLIA [id number] [address] [place] [address] 24345 Monocytes (Bld) [#/Vol] 0.77 10*3/uL Normal <0.87 [facility] Comment on above: Order Comment: Speci men Type: BLOOD SPECIMEN Ordering Facility: [facility] Address: [address] [address] Performed By: #### 5 7021-8 #### [facility] CLIA [id number] [address] [place] [address] 68546 Monocytes/100 WBC (Bld) 7.7 % Normal [facility] Comment on above: Order Comment: Speci men Type: BLOOD SPECIMEN Ordering Facility: [facility] Address: [address] Performed By: #### 5 7021-8 #### [facility] CLIA [id number] [address] [place] [address] 41695 Neutrophils (Bld) [#/Vol] 7.72 10*3/uL High 1.45-7.50 [facility] Comment on above: Order Comment: Speci men Type: BLOOD SPECIMEN Ordering Facility: [facility] Address: [address] Performed By: #### 5 7021-8 #### [facility] CLIA [id number] [address] [place] [address] 91941 Neutrophils/100 WBC (Bld) 77.7 % Normal [facility] Comment on above: Order Comment: Speci men Type: BLOOD SPECIMEN Ordering Facility: [facility] Address: [address] [address] Performed By: #### 5 7021-8 #### [facility] CLIA [id number] [address] [place] [address] 78802 Nucleated RBC (Bld) [#/Vol] 10*3/uL Normal <0.01 [facility] Comment on above: Order Comment: Speci men Type: BLOOD SPECIMEN Ordering Facility: [facility] Address: [address] [place] [address] Performed By: #### 5 7021-8 #### [facility] CLIA [id number] [address] [place] [address] 88358 Nucleated RBC/100 WBC (Bld) [Ratio] 0.0 /100 WBC Normal [facility] Comment on above: Order Comment: Speci men Type: BLOOD SPECIMEN Ordering Facility: [facility] Address: [address] [place] [address] Performed By: #### 5 7021-8 #### [facility] CLIA [id number] [address] [place] [address] 63159 Platelet mean volume (Bld) [Entitic vol] 9.5 fL Normal 9.0-12.7 [facility] Comment on above: Order Comment: Speci men Type: BLOOD SPECIMEN Ordering Facility: [facility] Address: [address] [place] [address] Performed By: #### 5 7021-8 #### [facility] CLIA [id number] [address] [place] [address] 69259 Platelets (Bld) [#/Vol] 260 10*3/uL Normal 150-400 [facility] Comment on above: Order Comment: Speci men Type: BLOOD SPECIMEN Ordering Facility: [facility] Address: [address] Performed By: #### 5 7021-8 #### [facility] CLIA [id number] [address] [place] [address] 87372 RBC (Bld) [#/Vol] 4.06 10*6/uL Normal 3.90-5.20 [facility] Comment on above: Order Comment: Speci men Type: BLOOD SPECIMEN Ordering Facility: [facility] Address: [address] [address] Performed By: #### 5 7021-8 #### [facility] CLIA [id number] [address] [place] [address] 09032 WBC (Bld) [#/Vol] 9.94 10*3/uL Normal 3.70-11.00 [facility] Comment on above: Order Comment: Speci men Type: BLOOD SPECIMEN Ordering Facility: [facility] Address: [address] [address] Performed By: #### 5 7021-8 #### [facility] CLIA [id number] [address] [place] [address] 53435 CNOVSPon 03-14-2023 CNOVS Visit (SP) Office ([facility]) KAYLIE SALMOON ([id number]) 1950 F Date Time Provider Department 03/14/23 [...] once daily. ALLERGIES: Clarithromycin, Conjugated Estrogens, Neosporin [Pwblgsfr-Kcewuqkkkv-N olymyxin], Paclitaxel, Peanut, Penicillins, and Sulfa (Sulfonamide Antibiotics) PAST MEDICAL HISTORY: PAST MEDICAL HISTORY Diagnosis Date AF (atrial fibrillation) ([facility]) Asthma Breast cancer (HCC) 02/[address] Landeros COPD (chronic obstructive pulmonary disease) ([facility]) Edema Hyperlipidemia Hypertension OA (osteoarthritis [...] to COVID-19 (more content not included)... Normal [facility] Cancer Ag27-29 SerPl-aCncon 03-14-2023 Cancer Ag 27-29 Qn 23.1 [arb'U]/mL Normal <38.6 [facility] Comment on above: Order Comment: Speci men Type: BLOOD SPECIMEN Ordering Facility: [facility] Address: [address] [place] [address] Result Comment: The CA27.29 test was performed using the Drakeraur XP chemiluminometric immunoassay method. Results obtained with different assay methods or kits cannot be used interchangeably. Performed By: #### 1 7842-6 #### [facility] CLIA [id number] [address] [place] [address] [place] Comprehensive metabolic 2000 panelon 03-14-2023 Albumin [Mass/Vol] 4.2 g/dL Normal 3.9-4.9 [facility] Comment on above: Order Comment: Speci men Type: BLOOD SPECIMEN Ordering Facility: [facility] Address: [address] [place] [address] Performed By: #### 2 4323-8 #### [facility] CLIA [id number] [address] [place] [address] 72541 ALP [Catalytic activity/Vol] 95 U/L Normal 34-123 [facility] Comment on above: Order Comment: Speci men Type: BLOOD SPECIMEN Ordering Facility: [facility] Address: [address] [place] [address] Performed By: #### 2 4323-8 #### [facility] CLIA [id number] [address] [place] [address] 76898 ALT [Catalytic activity/Vol] 11 U/L Normal 7-38 [facility] Comment on above: Order Comment: Speci men Type: BLOOD SPECIMEN Ordering Facility: [facility] Address: [address] [address] Performed By: #### 2 4323-8 #### [facility] CLIA [id number] [address] [place] [address] Anion gap [Moles/Vol] 11 mmol/L Normal 9-18 [facility] Comment on above: Order Comment: Speci men Type: BLOOD SPECIMEN Ordering Facility: [facility] Address: [address] [address] Performed By: #### 2 432-8 #### [facility] CLIA [id number] [address] [place] [address] 54239 AST [Catalytic activity/Vol] 14 U/L Normal 13-35 [facility] Comment on above: Order Comment: Speci men Type: BLOOD SPECIMEN Ordering Facility: [facility] Address: [address] [address] Performed By: #### 2 4323-8 #### [facility] CLIA [id number] [address] [place] [address] 53809 Bilirubin [Mass/Vol] 0.5 mg/dL Normal 0.2-1.3 [facility] Comment on above: Order Comment: Speci men Type: BLOOD SPECIMEN Ordering Facility: [facility] Address: [address] [address] Performed By: #### 2 4323-8 #### [facility] CLIA [id number] [address] [place] [address] 74018 Calcium [Mass/Vol] 9.3 mg/dL Normal 8.5-10.2 [facility] Comment on above: Order Comment: Speci men Type: BLOOD SPECIMEN Ordering Facility: [facility] Address: [address] [address] Performed By: #### 2 4323-8 #### [facility] CLIA [id number] [address] [place] [address] 79268 Chloride [Moles/Vol] 98 mmol/L Normal 97-105 [facility] Comment on above: Order Comment: Speci men Type: BLOOD SPECIMEN Ordering Facility: [facility] Address: [address] [place] [address] Performed By: #### 2 4323-8 #### [facility] CLIA [id number] [address] [place] [address] CO2 [Moles/Vol] 30 mmol/L Normal 22-30 [facility] Comment on above: Order Comment: Speci men Type: BLOOD SPECIMEN Ordering Facility: [facility] Address: [address] [place] [address] Performed By: #### 2 4323-8 #### [facility] CLIA [id number] [address] [place] [address] 72620 Creatinine [Mass/Vol] 0.97 mg/dL High 0.58-0.96 [facility] Comment on above: Order Comment: Speci men Type: BLOOD SPECIMEN Ordering Facility: [facility] Address: [address] [place] [address] Performed By: #### 2 4323-8 #### [facility] CLIA [id number] [address] [place], [place] [address] ESTIMATED GLOMERULAR FILTRATION RATE 61 mL/min/1.73m??? Normal >=60 [facility] Comment on above: Order Comment: Speci men Type: BLOOD SPECIMEN Ordering Facility: [facility] Address: [address] [place] [address] Result Comment: Violette mated Glomerular Filtration Rate [...] GFR. Performed By: #### 2 4323-8 #### [facility] CLIA [id number] [address] [place] [address] 96760 Glucose [Mass/Vol] 138 mg/dL High 74-99 [facility] Comment on above: Order Comment: Jennifer stahl Type: BLOOD SPECIMEN Ordering Facility: [facility] Address: [address] [place] [address] Result Comment: The [place] [employer] (ADA) provides guidance for cutoff [...] Standards of Medical Care in Diabetes 2016, [place] [employer]. Diabetes Care. 2016.39(Suppl 1). Performed By: #### 2 4323-8 #### [facility] CLIA [id number] [address] [place] [address] 65257 Potassium [Moles/Vol] 4.8 mmol/L Normal 3.7-5.1 [facility] Comment on above: Order Comment: Jennifer stahl Type: BLOOD SPECIMEN Ordering Facility: [facility] Address: [address] [place] [address] Performed By: #### 2 4323-8 #### [facility] CLIA [id number] [address] [place] [address] 89557 Protein [Mass/Vol] 7.2 g/dL Normal 6.3-8.0 [facility] Comment on above: Order Comment: Jennifer stahl Type: BLOOD SPECIMEN Ordering Facility: [facility] Address: [address] [place] [address] Performed By: #### 2 4323-8 #### [facility] CLIA [id number] [address] [place] [address] 73649 Sodium [Moles/Vol] 139 mmol/L Normal 136-144 [facility] Comment on above: Order Comment: Speci men Type: BLOOD SPECIMEN Ordering Facility: [facility] Address: [address] [address] Performed By: #### 2 4323-8 #### [facility] CLIA [id number] [address] [place] [address] Urea nitrogen [Mass/Vol] 32 mg/dL High 7-21 [facility] Comment on above: Order Comment: Speci men Type: BLOOD SPECIMEN Ordering Facility: [facility] Address: [address] [id number] Performed By: #### 2 4323-8 #### [facility] CLIA [id number] [address] [place] [address] CBC W Auto Differential pane l (Bld)on 09-13-2022 Basophils (Bld) [#/Vol] <0.11 k/uL [facility] Basophils/100 WBC (Bld) 0.2 % [facility] Differential cell count method Nom (Bld) Auto [facility] Eosinophils (Bld) [#/Vol] <0.46 k/uL [facility] Eosinophils/100 WBC (Bld) 0.0 % [facility] Erythrocyte distribution width (RBC) [Ratio] 14.1 % 11.5 - 15.0 % [facility] Hematocrit (Bld) [Volume fraction] 38.1 % 36.0 - 46.0 % [facility] Hemoglobin (Bld) [Mass/Vol] 11.7 g/dL 11.5 - 15.5 g/dL [facility] Immature granulocytes (Bld) [#/Vol] 0.05 10*3/uL <0.10 k/uL [facility] Immature granulocytes/100 WBC (Bld) 0.5 % [facility] Lymphocytes (Bld) [#/Vol] 1.15 10*3/uL 1.00 - 4.00 k/uL [facility] Lymphocytes/100 WBC (Bld) 11.5 % [facility] MCH (RBC) [Entitic mass] 29.4 pg 26.0 - 34.0 pg [facility] MCHC (RBC) [Mass/Vol] 30.7 g/dL 30.5 - 36.0 g/dL [facility] MCV (RBC) [Entitic vol] 95.7 fL 80.0 - 100.0 fL [facility] Monocytes (Bld) [#/Vol] 0.75 10*3/uL <0.87 k/uL [facility] Monocytes/100 WBC (Bld) 7.5 % [facility] Neutrophils (Bld) [#/Vol] 8.04 10*3/uL High 1.45 - 7.50 k/uL [facility] Neutrophils/100 WBC (Bld) 80.3 % [facility] Nucleated RBC (Bld) [#/Vol] <0.01 k/uL [facility] Nucleated RBC/100 WBC (Bld) [Ratio] 0.0 /100 WBC [facility] Platelet mean volume (Bld) [Entitic vol] 10.0 fL 9.0 - 12.7 fL [facility] Platelets (Bld) [#/Vol] 267 10*3/uL 150 - 400 k/uL [facility] RBC (Bld) [#/Vol] 3.98 10*6/uL 3.90 - 5.2 0 m/uL [facility] WBC (Bld) [#/Vol] 10.01 10*3/uL 3.70 - 11 .00 k/uL [facility] Comprehensive metabolic 2000 panelon 09-13-2022 Albumin [Mass/Vol] 4.2 g/dL 3.9 - 4.9 g/dL [facility] ALP [Catalytic activity/Vol] 97 U/L 34 - 123 U/L [facility] ALT [Catalytic activity/Vol] 10 U/L 7 - 38 U/L [facility] Anion gap [Moles/Vol] 10 mmol/L 9 - 18 mmol/L [facility] AST [Catalytic activity/Vol] 12 U/L Low 13 - 35 U/L [facility] Bilirubin [Mass/Vol] 0.4 mg/dL 0.2 - 1.3 mg/dL [facility] Calcium [Mass/Vol] 9.3 mg/dL 8.5 - 10. 2 mg/dL [facility] Chloride [Moles/Vol] 101 mmol/L 97 - 105 mmol/L [facility] CO2 [Moles/Vol] 29 mmol/L 22 - 30 mmol/L [facility] Creatinine [Mass/Vol] 1.02 mg/dL High 0.58 - 0.96 mg/dL [facility] Estimated Glomerular Filtration Rate 58 mL/min/1.73m Low >=60 mL/min/1.73m [facility] Glucose [Mass/Vol] 139 mg/dL High 74 - 99 mg/dL [facility] Potassium [Moles/Vol] 3.9 mmol/L 3.7 - 5.1 mmol/L [facility] Protein [Mass/Vol] 6.9 g/dL 6.3 - 8.0 g/dL [facility] Sodium [Moles/Vol] 140 mmol/L 136 - 144 mmol/L [facility] Urea nitrogen [Mass/Vol] 25 mg/dL High 7 - 21 mg/dL [facility] XR CHEST 2 Von 08-15-2022 XR [...] DEEPTI MALLORY Date: 2022-08-15 06:58 Normal [facility] BNPon 07-23-2022 Natriuretic peptide B (Bld) [Mass/Vol] 1362.0 pg/mL Critically high <=900.0 [facility] Comment on above: Performed By: #### C MADM, CMP, BNP #### [facility] [address] [place], [place] [address] Dr. Hector Rubio CARDIAC [place] ADMITon 022 CK [Catalytic activity/Vol] 84 U/L Normal 26-192 [facility] Comment on above: Performed By: #### C MADM, CMP, BNP #### [facility] [address] [place], [place] [address] Dr. Hector Rubio CK.MB [Mass/Vol] 2.22 ng/mL Normal <=3.60 [facility] [place] Comment on above: Performed By: #### C MADM, CMP, BNP #### [facility] [address] [address] [address] Hector Rubio HSTROP 41.0 pg/mL Normal 4.0-51.3 [facility] Comment on above: Result Comment: CUT- OFF POINTS HAVE BEEN ESTABLISHED BASED ON THE FOURTH UNIVERSAL DEFINITIONS OF MYOCARDIAL INFARCTION. THE UPPER REFERENCE LIMIT (URL) OF TROPONIN, DEFINED THE 99TH PERCENTILE OF cTnI DISTRIBUTION IN A REFERENCE POPULATION, HAS BEEN CONFIRMED THE DECISION THRESHOLD FOR MD DIAGNOSIS. Performed By: #### C MADM, CMP, BNP #### [facility] [address] [address] [address] Hector Rubio DIONNE 95 ng/mL Critically high 9-82 [facility] Comment on above: Performed By: #### C MADM, CMP, BNP #### [facility] [address] [place] [address] Dr. Hector Rubio CBC AUTO DIFFon 07-23-2022 BASO # 0.0 103/ul Normal 0.0-0.1 [facility] Comment on above: Performed By: #### C BC #### [facility] [address] [place] [address] Dr. Hector Rubio Basophils/100 WBC (Bld) 0.1 % Critically low 0.2-2.0 [facility] Comment on above: Performed By: #### C BC #### [facility] [address] [place] [address] Dr. Hector Rubio EO # 0.0 103/ul Normal 0.0-0.7 [facility] Comment on above: Performed By: #### C BC #### [facility] [address] [place] [address] Dr. Hector Rubio Eosinophils/100 WBC (Bld) 0.0 % Critically low 0.9-7.0 [facility] Comment on above: Performed By: #### C BC #### [facility] [address] [place] [address] Dr. Hector Rubio Erythrocyte distribution width (RBC) [Ratio] 13.7 % Normal 11.0-15.0 [facility] Comment on above: Performed By: #### C BC #### [facility] [address] [place] [address] Dr. Hector Rubio Hematocrit (Bld) [Volume fraction] 38.9 % Normal 36.0-48.0 [facility] Comment on above: Performed By: #### C BC #### [facility] [address] [place] [address] Dr. Hector Rubio Hemoglobin (Bld) [Mass/Vol] 11.8 g/dL Critically low 12.0-16.0 [facility] Comment on above: Performed By: #### C BC #### [facility] [address] [place] [address] Dr. Hector Rubio IG # 0.02 10e3/ul Normal 0.00-0.03 [facility] Comment on above: Performed By: #### C BC #### [facility] [address] [place] [address] Dr. Hector Rubio IG % 0.3 % Normal 0.0-0.5 [facility] Comment on above: Performed By: #### C BC #### [facility] [address] [place] [address] Dr. Hector Rubio LYMPH # 1.0 103/ul Critically low 1.2-3.8 [facility] Comment on above: Performed By: #### C BC #### [facility] [address] [place] [address] Dr. Hector Rubio Lymphocytes/100 WBC (Bld) 12.6 % Critically low 20.5-60.0 [facility] Comment on above: Performed By: #### C BC #### [facility] [address] [place] [address] Dr. Hector Rubio MANUAL DIFF REQ NO Normal [facility] Comment on above: Performed By: #### C BC #### [facility] [address] [place] [address] Dr. Hector Rubio MCH (RBC) [Entitic mass] 29.0 pg Normal 26.7-34.0 [facility] Comment on above: Performed By: #### C BC #### [facility] [address] [address] [address] Hector Rubio MCHC (RBC) [Mass/Vol] 30.3 g/dL Normal 29.9-35.2 [facility] Comment on above: Performed By: #### C BC #### [facility] [address] [address] [address] Hector Rubio MCV (RBC) [Entitic vol] 95.6 fL Normal 81.0-99.0 [facility] Comment on above: Performed By: #### C BC #### [facility] [address] [address] [address] Hector Rubio MONO # 0.7 103/ul Normal 0.3-0.8 [facility] Comment on above: Performed By: #### C BC #### [facility] [address] [place] [address] Dr. Hector Rubio Monocytes/100 WBC (Bld) 9.0 % Normal 1.7-12.0 [facility] Comment on above: Performed By: #### C BC #### [facility] [address] [place] [address] Dr. Hector Ruboi NEUT # 6.1 103/ul Normal 1.4-6.5 [facility] Comment on above: Performed By: #### C BC #### [facility] [address] [address] [address] Hector Rubio Neutrophils/100 WBC (Bld) 78.0 % Critically high 43.0-75.0 [facility] Comment on above: Performed By: #### C BC #### [facility] [address] [address] [address] Hector Rubio Platelet mean volume (Bld) [Entitic vol] 9.7 fL Normal 9.5-13.5 [facility] Comment on above: Performed By: #### C BC #### [facility] [address] [address] [address] Hector Rubio PLT 202 103/ul Normal 150-450 [facility] Comment on above: Performed By: #### C BC #### [facility] [address] [address] [address] Hector Rubio RBC 4.07 106/ul Critically low 4.20-5.40 [facility] Comment on above: Performed By: #### C BC #### [facility] [address] [place], [place] [address] Dr. Hector Rubio WBC 7.8 103/ul Normal 4.0-11.0 [facility] Comment on above: Performed By: #### C BC #### [facility] [address] [place], [place] [address] Dr. Hector Rubio Covid-19 PCR (CVDTBH)on 07-01 SARS-CoV-2 (COVID-19) RNA SHLOMO+probe Ql (Unsp spec) Not detected Normal NOT DETECTED [facility] Comment on above: Result Comment: When diagnostic [...] for this test is supported by the [employer] of Health and Human Service's declaration that [...] used). Performed By: #### C VDTBH #### [facility] [address] [place], [place] [address] Dr. Hector Rubio PROF 14(COMP METB)on 022 Albumin [Mass/Vol] 3.7 g/dL Normal 3.4-5.0 [facility] Comment on above: Performed By: #### C MADM, CMP, BNP #### [facility] [address] [address] [address] Hector Rubio Albumin/Globulin [Mass ratio] 0.9 {ratio} Normal [facility] Comment on above: Performed By: #### C MADM, CMP, BNP #### [facility] [address] [address] [address] Hector Rubio ALP [Catalytic activity/Vol] 90 U/L Normal 46-116 [facility] Comment on above: Performed By: #### C MADM, CMP, BNP #### [facility] [address] [address] [address] Hector Rubio ALT [Catalytic activity/Vol] 17 U/L Normal 14-59 [facility] Comment on above: Performed By: #### C MADM, CMP, BNP #### [facility] [address] [address] [address] Hector Rubio Anion gap [Moles/Vol] 7.8 mmol/L Normal [facility] Comment on above: Performed By: #### C MADM, CMP, BNP #### [facility] [address] [address] [address] Hector Rubio AST [Catalytic activity/Vol] 12 U/L Critically low 15-37 [facility] Comment on above: Performed By: #### C MADM, CMP, BNP #### [facility] [address] [address] [address] Hector Rubio Bilirubin [Mass/Vol] 0.5 mg/dL Normal 0.2-1.0 [facility] Comment on above: Performed By: #### C MADM, CMP, BNP #### [facility] [address] [address] [address] Hector Rubio Calcium [Mass/Vol] 9.1 mg/dL Normal 8.5-10.1 [facility] Comment on above: Performed By: #### C MADM, CMP, BNP #### [facility] [address] [address] [address] Hector Rubio Chloride [Moles/Vol] 102 mmol/L Normal 98-107 [facility] Comment on above: Performed By: #### C MADM, CMP, BNP #### [facility] [address] [address] [address] Hector Rubio CO2 [Moles/Vol] 33.1 mmol/L Critically high 21.0-32.0 [facility] Comment on above: Performed By: #### C MADM, CMP, BNP #### [facility] [address] [address] [address] Hector Rubio Creatinine [Mass/Vol] 0.89 mg/dL Normal 0.55-1.02 [facility] Comment on above: Performed By: #### C MADM, CMP, BNP #### [facility] [address] [address] [address] Hector Rubio EGFR-AF PUERTO RICAN >60 Normal >=60 [facility] Comment on above: Performed By: #### C MADM, CMP, BNP #### [facility] [address] [address] [address] Hector Rubio EGFR-NON AF PUERTO RICAN >60 Normal >=60 [facility] Comment on above: Performed By: #### C MADM, CMP, BNP #### [facility] [address] [address] [address] Hector Rubio Globulin (S) [Mass/Vol] 4.0 g/dL Normal [facility] Comment on above: Performed By: #### C MADM, CMP, BNP #### [facility] [address] [address] [address] Hector Rubio Glucose [Mass/Vol] 118 mg/dL Critically high 74-106 [facility] Comment on above: Performed By: #### C MADM, CMP, BNP #### [facility] [address] [address] [address] Hector Rubio Potassium [Moles/Vol] 3.9 mmol/L Normal 3.5-5.1 [facility] Comment on above: Performed By: #### C MADM, CMP, BNP #### [facility] [address] [address] [address] Hector Rubio Protein [Mass/Vol] 7.7 g/dL Normal 6.4-8.2 [facility] Comment on above: Performed By: #### C MADM, CMP, BNP #### [facility] [address] [address] [address] Hector Rubio Sodium [Moles/Vol] 139 mmol/L Normal 136-145 [facility] Comment on above: Performed By: #### C MADM, CMP, BNP #### [facility] [address] [address] [address] Hector Rubio Urea nitrogen [Mass/Vol] 29.0 mg/dL Critically high 7.0-18.0 [facility] Comment on above: Performed By: #### C MADM, CMP, BNP #### [facility] [address] [address] [address] Hector Rubio Urea nitrogen/Creatinine [Mass ratio] 32.6 mg/mg Normal [facility] Comment on above: Performed By: #### C MADM, CMP, BNP #### [facility] [address] [address] [address] Hector Rubio XR CHEST 1 Von [...] by: GABRIELLE LIU Date: 2022-07-23 16:40 Normal [facility] MG MAMM DX 3D LT CADon 06-14 MG MAMM DX 3D LT CAD Patient: KAYLIE SALOMON Exam Date: 06/14/2022 : 1950 Gender:F Ordering : DR REGINALD ARAGON M.D. Admission #: [id number] Family : Order #: [id number] CLICK HERE TO VIEW EXAM CORRECTION Corrected [...] Treatments None Family Cancers None LOCATION: [facility] BREAST COMPOSITION: Scattered areas fibroglandular density. FINDINGS: [...] Mallory M.D. on 09/18/2022 at 09:22 Normal [facility] BASIC METABOLIC PANELon 05-0 Calcium [Mass/Vol] 9.3 mg/dL Normal 8.6-10.3 [facility] Comment on above: Order Comment: Yes: Add to Previous draw if able Performed By: #### 0 0121, 04515 #### [facility] [address] [place] [address], [place] Chloride [Moles/Vol] 98 mmol/L Normal 98-107 [facility] Comment on above: Order Comment: Yes: Add to Previous draw if able Performed By: #### 0 0121, 66711 #### [facility] [address] [place] [address], [place] CO2 [Moles/Vol] 34 mmol/L High 21-31 [facility] Comment on above: Order Comment: Yes: Add to Previous draw if able Performed By: #### 0 0121, 87234 #### [facility] [address] [place] [address], [place] Creatinine [Mass/Vol] 0.59 mg/dL Low 0.60-1.20 [facility] Comment on above: Order Comment: Yes: Add to Previous draw if able Performed By: #### 0 0121, 04439 #### [facility] [address] [place] [address], [place] GFR/1.73 sq M predicted among blacks MDRD (S/P/Bld) [Vol rate/Area] mL/min/{1.73_m2} Normal >60 [facility] Comment on above: Order Comment: Yes: Add to Previous draw if able Result Comment: Calc ulation may not be valid for patients over 70 years Performed By: #### 0 0121, 43231 #### [facility] [address] [place] [address], [place] GFR/1.73 sq M predicted among non-blacks MDRD (S/P/Bld) [Vol rate/Area] mL/min/{1.73_m2} Normal >60 [facility] Comment on above: Order Comment: Yes: Add to Previous draw if able Result Comment: Calc ulation may not be valid for patients over 70 years Performed By: #### 0 0121, 39288 #### [facility] [address] [place] [address], [place] Glucose [Mass/Vol] 256 mg/dL High 70-100 [facility] Comment on above: Order Comment: Yes: Add to Previous draw if able Performed By: #### 0 0121, 70480 #### [facility] [address] [place] [address], [place] Potassium [Moles/Vol] 4.5 mmol/L Normal 3.5-5.1 [facility] Comment on above: Order Comment: Yes: Add to Previous draw if able Performed By: #### 0 0121, 06085 #### [facility] [address] Sodium [Moles/Vol] 139 mmol/L Normal 136-145 [facility] Comment on above: Order Comment: Yes: Add to Previous draw if able Performed By: #### 0 0121, 08332 #### [facility] [address] Urea nitrogen [Mass/Vol] 21 mg/dL Normal 7-25 [facility] Comment on above: Order Comment: Yes: Add to Previous draw if able Performed By: #### 0 0121, 28267 #### [facility] [address] CBC W/DIFFon 02-02-2019 ABS BASOPHILS 0.0 10*3/uL Normal 0.0-0.2 [facility] Comment on above: Performed By: #### 0 0121, 33652 #### [facility] [address] ABS IMM GRANS 0.1 10*3/uL Normal 0.0-0.2 [facility] Comment on above: Performed By: #### 0 0121, 81972 #### [facility] [address] ABS NEUTROPHILS 16.9 10*3/uL High 1.6-7.6 [facility] Comment on above: Performed By: #### 0 0121, 75332 #### [facility] [address] Basophils/100 WBC (Bld) 0.1 % Normal 0.0-1.0 [facility] Comment on above: Performed By: #### 0 0121, 66810 #### [facility] [address] Eosinophils (Bld) [#/Vol] 0.0 10*3/uL Normal 0.0-0.5 [facility] Comment on above: Performed By: #### 0 012, 40292 #### [facility] [address] [place] [address], [facility] Eosinophils/100 WBC (Bld) 0.0 % Normal 0.0-6.0 [facility] Comment on above: Performed By: #### 0 012, 97213 #### [facility] [address] Erythrocyte distribution width (RBC) [Ratio] 14.3 % Normal 11.5-15.0 [facility] Comment on above: Performed By: #### 0 012, 95192 #### [facility] [address] Hematocrit (Bld) [Volume fraction] 37.3 % Normal 36.0-45.0 [facility] Comment on above: Performed By: #### 0 012, 05926 #### [facility] [address] [facility]. [address] Hemoglobin (Bld) [Mass/Vol] 11.6 g/dL Low 12.0-15.0 [facility] Comment on above: Performed By: #### 0 012, 66891 #### [facility] [address] [facility]. [address] IMMATURE GRANS 0.4 % Normal 0.0-1.0 [facility] Comment on above: Performed By: #### 0 012, 61841 #### [facility] [address] [facility] [address], [facility] Lymphocytes (Bld) [#/Vol] 0.5 10*3/uL Low 1.2-4.0 [facility] Comment on above: Performed By: #### 0 012, 99653 #### [facility] [address] [facility] [address], [facility] Lymphocytes/100 WBC (Bld) 2.5 % Low 20.0-45.0 [facility] Comment on above: Performed By: #### 0 012, 69612 #### [facility] [address] [facility]. [address] [id number], [facility] MCH (RBC) [Entitic mass] 28.9 pg Normal 27.0-33.0 [facility] Comment on above: Performed By: #### 0 012, 49832 #### [facility] [address] [facility] [place] [address], [facility] MCHC (RBC) [Mass/Vol] 31.1 g/dL Low 32.0-35.0 [facility] Comment on above: Performed By: #### 0 012, 36774 #### [facility] [address] [facility] [place] [address], [facility] MCV (RBC) [Entitic vol] 93.0 fL Normal 82.0-98.0 [facility] Comment on above: Performed By: #### 0 012, 12205 #### [facility] [address] [facility] [address], [facility] Monocytes (Bld) [#/Vol] 0.3 10*3/uL Normal 0.1-1.0 [facility] Comment on above: Performed By: #### 0 012, 35674 #### [facility] [address] [facility] [address], [facility] MONOS 1.5 % Low 5.0-12.0 [facility] Comment on above: Performed By: #### 0 012, 59489 #### [facility] [address] [facility]. [address] [id number], [facility] Neutrophils/100 WBC (Bld) 95.5 % High 40.0-72.0 [facility] Comment on above: Performed By: #### 0 012, 63691 #### [facility] [address] [facility] [address], [facility] Nucleated RBC/100 WBC (Bld) [Ratio] 0 % Normal 0-0 [facility] Comment on above: Performed By: #### 0 0121, 61693 #### [facility] [address] [place] [address], [facility] PLAT CNT 265 10*3/uL Normal 150-400 [facility] Comment on above: Performed By: #### 0 0121, 16078 #### [facility] [address] [place] [address], [facility] RBC (Bld) [#/Vol] 4.01 10*6/uL Normal 3.80-5.00 [facility] Comment on above: Performed By: #### 0 0121, 40530 #### [facility] [address] [facility] [address], [facility] WBC (Bld) [#/Vol] 17.67 10*3/uL High 4.00-10.60 [facility] Comment on above: Performed By: #### 0 0121, 92179 #### [facility] [address] [place] [address], [facility] POC GLUCOSE LABon 02-02-2019 Glucose [Mass/Vol] 215 mg/dL High 70-100 [facility] Comment on above: Performed By: #### 0 0121, 69968 #### [facility] [address] [place] [address], [facility] BNP (B-TYPE NATRIURETIC PEPT DARCI)on 02-01-2019 Natriuretic peptide B (Bld) [Mass/Vol] 423 pg/mL High 0-100 [facility] Comment on above: Order Comment: Yes: Add to Previous draw if able Result Comment: Give n the appropriate clinical setting a BNP result of >100 pg/mL indicates congestive heart failure. Performed By: #### 8 5123 #### [facility] [address] CBC W/DIFFon 02-01-2019 ABS BASOPHILS 0.0 10*3/uL Normal 0.0-0.2 [facility] Comment on above: Order Comment: Yes: Add to Previous draw if able Performed By: #### 5 0103 #### [facility] [address] [facility] [place] [address], [facility] ABS IMM GRANS 0.1 10*3/uL Normal 0.0-0.2 [facility] Comment on above: Order Comment: Yes: Add to Previous draw if able Performed By: #### 5 0103 #### [facility] [address] ABS NEUTROPHILS 12.2 10*3/uL High 1.6-7.6 [facility] Comment on above: Order Comment: Yes: Add to Previous draw if able Performed By: #### 5 0103 #### [facility] [address] [facility]. [address] Basophils/100 WBC (Bld) 0.2 % Normal 0.0-1.0 [facility] Comment on above: Order Comment: Yes: Add to Previous draw if able Performed By: #### 5 0103 #### [facility] [address] Eosinophils (Bld) [#/Vol] 0.0 10*3/uL Normal 0.0-0.5 [facility] Comment on above: Order Comment: Yes: Add to Previous draw if able Performed By: #### 5 0103 #### [facility] [address] [place] [address], [facility] Eosinophils/100 WBC (Bld) 0.0 % Normal 0.0-6.0 [facility] Comment on above: Order Comment: Yes: Add to Previous draw if able Performed By: #### 5 0103 #### [facility] [address] [place] [address], [facility] Erythrocyte distribution width (RBC) [Ratio] 14.3 % Normal 11.5-15.0 [facility] Comment on above: Order Comment: Yes: Add to Previous draw if able Performed By: #### 5 0103 #### [facility] [address] [place] [address], [facility] Hematocrit (Bld) [Volume fraction] 39.9 % Normal 36.0-45.0 [facility] Comment on above: Order Comment: Yes: Add to Previous draw if able Performed By: #### 3 #### [facility] [address] Hemoglobin (Bld) [Mass/Vol] 11.8 g/dL Low 12.0-15.0 [facility] Comment on above: Order Comment: Yes: Add to Previous draw if able Performed By: #### 3 #### [facility] [address] IMMATURE GRANS 0.4 % Normal 0.0-1.0 [facility] Comment on above: Order Comment: Yes: Add to Previous draw if able Performed By: #### 5 3 #### [facility] [address] [place] [address], [facility] Lymphocytes (Bld) [#/Vol] 0.3 10*3/uL Low 1.2-4.0 [facility] Comment on above: Order Comment: Yes: Add to Previous draw if able Performed By: #### 5 0103 #### [facility] [address] [place] [address], [facility] Lymphocytes/100 WBC (Bld) 2.6 % Low 20.0-45.0 [facility] Comment on above: Order Comment: Yes: Add to Previous draw if able Performed By: #### 3 #### [facility] [address] [place] [address], [facility] MCH (RBC) [Entitic mass] 28.6 pg Normal 27.0-33.0 [facility] Comment on above: Order Comment: Yes: Add to Previous draw if able Performed By: #### 5 0103 #### [facility] [address] [facility] [place] [address], [facility] MCHC (RBC) [Mass/Vol] 29.6 g/dL Low 32.0-35.0 [facility] Comment on above: Order Comment: Yes: Add to Previous draw if able Performed By: #### 5 0103 #### [facility] [address] [facility] [place] [address], [facility] MCV (RBC) [Entitic vol] 96.6 fL Normal 82.0-98.0 [facility] Comment on above: Order Comment: Yes: Add to Previous draw if able Performed By: #### 5 3 #### [facility] [address] [facility] [place] [address], [facility] Monocytes (Bld) [#/Vol] 0.1 10*3/uL Normal 0.1-1.0 [facility] Comment on above: Order Comment: Yes: Add to Previous draw if able Performed By: #### 5 3 #### [facility] [address] [facility] [place] [address], [facility] MONOS 0.9 % Low 5.0-12.0 [facility] Comment on above: Order Comment: Yes: Add to Previous draw if able Performed By: #### 5 0103 #### [facility] [address] [facility] [place] [address], [facility] Neutrophils/100 WBC (Bld) 95.9 % High 40.0-72.0 [facility] Comment on above: Order Comment: Yes: Add to Previous draw if able Performed By: #### 5 102 #### [facility] [address] [facility] [place] [address], [facility] Nucleated RBC/100 WBC (Bld) [Ratio] 0 % Normal 0-0 [facility] Comment on above: Order Comment: Yes: Add to Previous draw if able Performed By: #### 5 3 #### [facility] [address] [place] [address], [facility] PLAT CNT 240 10*3/uL Normal 150-400 [facility] Comment on above: Order Comment: Yes: Add to Previous draw if able Performed By: #### 5 0103 #### [facility] [address] [place] [address], [facility] RBC (Bld) [#/Vol] 4.13 10*6/uL Normal 3.80-5.00 [facility] Comment on above: Order Comment: Yes: Add to Previous draw if able Performed By: #### 5 3 #### [facility] [address] [place] [id number], [facility] WBC (Bld) [#/Vol] 12.76 10*3/uL High 4.00-10.60 [facility] Comment on above: Order Comment: Yes: Add to Previous draw if able Performed By: #### 5 3 #### [facility] [address] [place] [address], [facility] COMP METABOLIC PANELon 02-01 Albumin [Mass/Vol] 4.1 g/dL Normal 3.5-5.7 [facility] Comment on above: Order Comment: Yes: Add to Previous draw if able Performed By: #### 0 0121, 42319 #### [facility] [address] [place] [id number], [facility] ALKALINE PHOSPH 70 IU/L Normal 34-104 [facility] Comment on above: Order Comment: Yes: Add to Previous draw if able Performed By: #### 0 0121, 76230 #### [facility] [address] [place] [address], [facility] ALT [Catalytic activity/Vol] 14 U/L Normal 7-52 [facility] Comment on above: Order Comment: Yes: Add to Previous draw if able Performed By: #### 0 0121, 89108 #### [facility] [address] [place] [address], [place] AST [Catalytic activity/Vol] 16 U/L Normal 13-39 [facility] Comment on above: Order Comment: Yes: Add to Previous draw if able Performed By: #### 0 0121, 11830 #### [facility] [address] [place] [address], [place] Bilirubin [Mass/Vol] 0.5 mg/dL Normal 0.3-1.0 [facility] Comment on above: Order Comment: Yes: Add to Previous draw if able Performed By: #### 0 0121, 72885 #### [facility] [address] [place] [address], [place] Calcium [Mass/Vol] 9.0 mg/dL Normal 8.6-10.3 [facility] Comment on above: Order Comment: Yes: Add to Previous draw if able Performed By: #### 0 0121, 02193 #### [facility] [address] [place] [address], [place] Chloride [Moles/Vol] 98 mmol/L Normal 98-107 [facility] Comment on above: Order Comment: Yes: Add to Previous draw if able Performed By: #### 0 0121, 32469 #### [facility] [address] [place] [address], [place] CO2 [Moles/Vol] 31 mmol/L Normal 21-31 [facility] Comment on above: Order Comment: Yes: Add to Previous draw if able Performed By: #### 0 0121, 88635 #### [facility] [address] [place] [address], [place] Creatinine [Mass/Vol] 0.67 mg/dL Normal 0.60-1.20 [facility] Comment on above: Order Comment: Yes: Add to Previous draw if able Performed By: #### 0 0121, 45936 #### [facility] [address] [place] [address], [place] GFR/1.73 sq M predicted among blacks MDRD (S/P/Bld) [Vol rate/Area] mL/min/{1.73_m2} Normal >60 [facility] Comment on above: Order Comment: Yes: Add to Previous draw if able Result Comment: Calc ulation may not be valid for patients over 70 years Performed By: #### 0 0121, 21256 #### [facility] [address] [place] [address], [place] GFR/1.73 sq M predicted among non-blacks MDRD (S/P/Bld) [Vol rate/Area] mL/min/{1.73_m2} Normal >60 [facility] Comment on above: Order Comment: Yes: Add to Previous draw if able Result Comment: Calc ulation may not be valid for patients over 70 years Performed By: #### 0 0121, 13314 #### [facility] [address] [place] [address], [place] Glucose [Mass/Vol] 245 mg/dL High 70-100 [facility] Comment on above: Order Comment: Yes: Add to Previous draw if able Performed By: #### 0 0121, 45607 #### [facility] [address] [place] [address], [place] Potassium [Moles/Vol] 4.2 mmol/L Normal 3.5-5.1 [facility] Comment on above: Order Comment: Yes: Add to Previous draw if able Performed By: #### 0 0121, 85940 #### [facility] [address] [place] [address], [place] Protein [Mass/Vol] 7.1 g/dL Normal 6.0-8.3 [facility] Comment on above: Order Comment: Yes: Add to Previous draw if able Performed By: #### 0 0121, 97176 #### [facility] [address] [place] [address], [place] Sodium [Moles/Vol] 136 mmol/L Normal 136-145 [facility] Comment on above: Order Comment: Yes: Add to Previous draw if able Performed By: #### 0 0121, 02872 #### [facility] [address] [place] [address], [place] Urea nitrogen [Mass/Vol] 13 mg/dL Normal 7-25 [facility] Comment on above: Order Comment: Yes: Add to Previous draw if able Performed By: #### 0 0121, 00545 #### [facility] [address] [facility] [place] [address], [place] POC GLUCOSE LABon 02-01-2019 Glucose [Mass/Vol] 225 mg/dL High 70-100 [facility] Comment on above: Performed By: #### 0 0121, 50773 #### [facility] [address] [facility] [place] [address], [place] Glucose [Mass/Vol] 230 mg/dL High 70-100 [facility] Comment on above: Performed By: #### 0 0121, 23499 #### [facility] [address] [place] [address], [place] Glucose [Mass/Vol] 237 mg/dL High 70-100 [facility] Comment on above: Performed By: #### 8 5499 #### [facility] [address] [facility] [place] [address], [place] Glucose [Mass/Vol] 247 mg/dL High 70-100 [facility] Comment on above: Performed By: #### 8 5499 #### [facility] [address] [facility] [place] [address], [place] PORTABLE CHEST 1 VIEWon PORTABLE CHEST 1 VIEW [facility] Department of Radiology [address] [place] [id number] ======== Patient Name: KAYLIE SALOMON : 1950 Sex: F Age: Race: White Pt. Location: [address] [place] [address] Patient Status: I Ordered Date: 01/31/2019 11:45:00 [...] findings. Electronically signed by:Rachael Cardenas. Transcribed by: [email or web address], User Resident: ROSA STRANGE Electronically Signed by: RACHAEL CARDENAS @ 02/01/2019 12:39 PM I personally read this/these film(s) with this resident Normal [facility] Comment on above: Order Comment: R/O I nfiltrates PROCALCITONINon 02-01-2019 PROCALCITONIN 0.07 ng/mL Normal 0.00-0.10 [facility] Comment on above: Order Comment: Yes: [...] and initial PCT<0.5ng/mL Performed By: #### 3 8288 #### [facility] [address] TROPONIN-Ion 02-01-2019 Troponin I.cardiac [Mass/Vol] 0.08 ng/mL High 0.00-0.04 [facility] Comment on above: Order Comment: No: D o not add to previous draw Result Comment: REFE RENCE RANGES: 0.00 - 0.04 ng/ml NORMAL 0.05 - 0.50 ng/ml INDETERMINATE > 0.50 ng/ml CONSISTENT WITH AN M.I. Performed By: #### [id number] #### [facility] [address] Troponin I.cardiac [Mass/Vol] 0.08 ng/mL High 0.00-0.04 [facility] Comment on above: Order Comment: No: D o not add to previous draw Result Comment: REFE RENCE RANGES: 0.00 - 0.04 ng/ml NORMAL 0.05 - 0.50 ng/ml INDETERMINATE > 0.50 ng/ml CONSISTENT WITH AN M.I. Performed By: #### [id number], [id number] #### [facility] [address] Cardiovascular Lab Reporton 01-16-2019 Cardiovascular Lab Report [facility] Patient Name: Astrid [facility] Kaylie Caballero MR #: [id number] Department of Physician: Pepe Alexandre M.D. Division of Service Date: 01/16/2019 Cardiology Birthdate: 1950 Adult Cardiovascular Room #: [facility] [address] [address] Cardiovascular Laboratory Report FINAL IMPRESSION: 1. Nonobstructive [...] the right radial artery was obtained. A 6-Haitian glide sheath was inserted without difficulty. Bilateral [...] angled Glidewire. INDICATIONS: Troponin elevation, type 2 [id number]-[id number] myocardial infarction. Electronically Signed by: Shemar Hudson M.D. 01/29/2019 08:36 A Shemar Hudson M.D. Date Dict: 01/16/2019/01:01 Shakila Hudson M.D. Date Trans: 01/16/2019 02:39 P/kiran [id number] Normal [facility] SWEAT CHLORIDEon 12-03-2018 SWEAT CHLORIDE 36 mmol/L Abnormal [facility] Comment on above: Order Comment: Right [id number] Left arm [id number] Result Comment: REFE RENCE VALUES <=29 mMol/L CYSTIC FIBROSIS IS UNLIKELY 30-59 mMol/L INTERMEDIATE >=60 mMol/L INDICATIVE OF CYSTIC FIBROSIS NOTE: SWEAT CHLORIDE VALUES LESS THAN 30 mMol/L HAVE BEEN DOCUMENTED IN GENETICALLY PROVEN CF PATIENTS. CLINICAL CORRELATION IS NECESSARY. Performed By: #### S WCH1 #### [facility] [address] [place] [address] WT COLLECTED 0.177 grams Normal [facility] Comment on above: Order Comment: Right [id number] Left arm [id number] Performed By: #### S WCH1 #### [facility] [address] [place] [address] SWEAT CHLORIDE 42 mmol/L Abnormal [facility] Comment on above: Order Comment: Pleas e fax results to Doctor Charles Landeros MD. Phone: [phone] Result Comment: REFE RENCE VALUES <=29 mMol/L CYSTIC FIBROSIS IS UNLIKELY 30-59 mMol/L INTERMEDIATE >=60 mMol/L INDICATIVE OF CYSTIC FIBROSIS NOTE: SWEAT CHLORIDE VALUES LESS THAN 30 mMol/L HAVE BEEN DOCUMENTED IN GENETICALLY PROVEN CF PATIENTS. CLINICAL CORRELATION IS NECESSARY. Performed By: #### S WCH1 #### [place] [address] [place] [address] WT COLLECTED 0.215 grams Normal [facility] Comment on above: Order Comment: Pleas e fax results to Doctor Charles Landeros MD. Phone: [phone] Performed By: #### S WCH1 #### [facility] [address] [place] [address] Vital Signs Date Time Vital Sign Value Performing Clinician Dasha lewis 03-14-2023 12:45-0400 Body height 167.7 cm Reginald Aragon MD Work Phone: [facility] 03-14-2023 12:45-0400 Body temperature 97.7 [degF] Reginald Aragon MD Work Phone: [facility] 03-14-2023 12:45-0400 Body weight 119.93 kg Reginald Aragon MD Work Phone: [facility] 03-14-2023 12:45-0400 Diastolic blood pressure 63 mm[Hg] Reginald Aragon MD Work Phone: [facility] 03-14-2023 12:45-0400 Heart rate 68 /min Reginald Aragon MD Work Phone: [facility] 03-14-2023 12:45-0400 Respiratory rate 16 /min Reginald Aragon MD Work Phone: [facility] 03-14-2023 12:45-0400 SaO2% (BldA) [Mass fraction] 97 % Reginald Aragon MD Work Phone: [facility] 03-14-2023 12:45-0400 Systolic blood pressure 114 mm[Hg] Reginald Aragon MD Work Phone: [facility] 09-13-2022 12:57-0500 Body height 167.7 cm Samantha Benitez PNEUMATIC TUBE FITTER.SPECIAL NEEDS TEACHER Work Phone: [facility] 09-13-2022 12:57-0500 Body temperature 97.59 [degF] Samantha Benitez PNEUMATIC TUBE FITTER.SPECIAL NEEDS TEACHER Work Phone: [facility] 09-13-2022 12:57-0500 Body weight 120.47 kg Samantha Benitez PNEUMATIC TUBE FITTER.SPECIAL NEEDS TEACHER Work Phone: [facility] 09-13-2022 12:57-0500 Diastolic blood pressure 68 mm[Hg] Samantha Benitez PNEUMATIC TUBE FITTER.SPECIAL NEEDS TEACHER Work Phone: [facility] 09-13-2022 12:57-0500 Heart rate 93 /min Samantha Benitez APRN.SPECIAL NEEDS TEACHER Work Phone: [facility] 09-13-2022 12:57-0500 Respiratory rate 16 /min Samantha Benitez PNEUMATIC TUBE FITTER.SPECIAL NEEDS TEACHER Work Phone: [facility] 09-13-2022 12:57-0500 SaO2% (BldA) [Mass fraction] 100 % Samantha Benitez APRN.SPECIAL NEEDS TEACHER Work Phone: [facility] 09-13-2022 12:57-0500 Systolic blood pressure 120 mm[Hg] Samantha Benitez PNEUMATIC TUBE FITTER.SPECIAL NEEDS TEACHER Work Phone: [facility] 03-14-2022 14:12-0400 Body height 167.7 cm Reginald Aragon MD Work Phone: [facility] 03-14-2022 14:12-0400 Body temperature 97.81 [degF] Reginald Aragon MD Work Phone: [facility] 03-14-2022 14:12-0400 Body weight 120.57 kg Reginald Aragon MD Work Phone: [facility] 03-14-2022 14:12-0400 Diastolic blood pressure 76 mm[Hg] Reginald Aragon MD Work Phone: [facility] 03-14-2022 14:12-0400 Heart rate 98 /min Reginald Aragon MD Work Phone: [facility] 03-14-2022 14:12-0400 Respiratory rate 16 /min Reginald Aragon MD Work Phone: [facility] 03-14-2022 14:12-0400 SaO2% (BldA) [Mass fraction] 95 % Reginald Aragon MD Work Phone: [facility] 03-14-2022 14:12-0400 Systolic blood pressure 114 mm[Hg] Reginald Aragon MD Work Phone: [facility] Encounters Encounter Date Encounter Type Care Provider Facility Start: 03-04-2025 ambulatory [place] Con Facility: [facility] [place] Start: 10-05-2024 ambulatory [place] L Con Facility: [facility] [place] Start: 06-25-2024 End: 06-25-2024 ambulatory [facility] Start: 06-17-2024 End: 06-17-2024 ambulatory [facility] Start: 06-09-2024 ambulatory Inderjit Ly acility:[facility] Start: 05-20-2024 End: 05-20-2024 ambulatory [facility] Start: 05-13-2024 End: 05-13-2024 ambulatory [facility] Start: 05-06-2024 End: 05-06-2024 ambulatory [place] L CON [facility] Start: 05-05-2024 End: 05-05-2024 ambulatory [facility] Start: 03-30-2024 End: 03-30-2024 ambulatory [place] L Con Facility:[facility] Start: 03-05-2024 End: 03-05-2024 ambulatory [place] L Con Facility:[facility] Start: 02-11-2024 End: 02-11-2024 ambulatory JENSEN CARTER Not Available Start: 02-11-2024 End: 02-11-2024 ambulatory [facility] Start: 01-09-2024 End: 01-09-2024 ambulatory [place] L Con Facility:[facility] Start: 01-07-2024 End: 01-07-2024 ambulatory [facility] Start: 01-06-2024 End: 01-29-2024 ambulatory [place] CON [facility] Start: 12-11-2023 End: 12-11-2023 ambulatory [facility] Start: 11-27-2023 End: 12-30-2023 ambulatory [place] L CON [facility] Start: 10-31-2023 ambulatory [facility] Start: 10-31-2023 End: 10-31-2023 ambulatory [facility] Start: 10-24-2023 End: 10-24-2023 ambulatory [facility] Start: 09-17-2023 End: 09-17-2023 ambulatory [facility] Start: 09-12-2023 End: 09-12-2023 ambulatory REGINALD ARAGON Facility:[facility] Start: 09-12-2023 Telephone encounter Carin Salgado Hematology/Oncology Comment on above: Orders Start: 08-29-2023 End: 08-29-2023 [facility] Start: 08-19-2023 End: 08-19-2023 ambulatory PI[facility] Start: 06-07-2023 Telephone encounter Nga Zhao RN Work Phone: Hematology/Oncology Comment on above: Orders Start: 04-04-2023 Telephone encounter Angelina tirado RN Work Phone: Hematology/Oncology Comment on above: Results Start: 03-14-2023 End: 03-14-2023 ambulatory REGINALD ARAGON Facility:[facility] Start: 03-14-2023 End: 03-14-2023 ambulatory Reginald Aragon [...] Start: 09-13-2022 End: 09-13-2022 ambulatory Samantha Benitez APRN.SPECIAL NEEDS TEACHER Work Phone: Hematology/Oncology Comment on above: Malignant neoplasm o f overlapping sites of right breast in female, estrogen receptor negative (HCC) (Primary Dx); Iron deficiency anemia secondary to inadequate dietary iron intake Start: 09-13-2022 End: 09-13-2022 Patient encounter procedure Samantha Benitez APRN.SPECIAL NEEDS TEACHER Work Phone: [facility] Start: 08-14-2022 End: 08-15-[address] CHARLES LANDEROS Facility:[facility] Start: 07-23-2022 End: 07-23-2022 ambulatory MITCHEL WARREN Facility:[facility] Start: 07-16-2022 Refill Samantha Benitez APRN.SPECIAL NEEDS TEACHER Work Phone: Hematology/Oncology Comment on above: Refill [...] encounter procedure Reginald Aragon MD Work Phone: [facility] Start: 10-19-[address] CHARLES LANDEROS Facilit y:[facility] Start: 02-01-2019 End: 02-02-2019 Evaluation and management of inpatient ARACELI SANDHU Facility:[facility] Start: 01-16-2019 End: 01-17-2019 Patient encounter procedure MAGDAAB A MORGAN Facility:[facility] Start: 12-03-2018 Patient encounter procedure Facility:[facility] Procedures Date Procedure Procedure Detail Performing Clinician Start: 04-13-2022 Lipid 1996 panel - S migdalia or Plasma Carin Ramos RN Start: 05-27-2020 Adult depression screening assessment Reginald Aragon MD Work Phone: Plan of Treatment Date Care Activity Detail Author Start: 04-13-2027 Lipid panel Lipid Screening [facility] Start: 04-13-2027 LIPID SCREEN LIPID SCREEN [facility] Start: 12-15-2026 LIPID SCREEN LIPID SCREEN [facility] Start: 09-12-2026 Diabetes Screening Diabetes Screenin g [facility] Start: 03-14-2026 DIABETES SCREEN DIABETES SCREEN [facility] Start: 09-13-2025 DIABETES SCREEN DIABETES SCREEN [facility] Start: 03-14-2025 DIABETES SCREEN DIABETES SCREEN [facility] Start: 08-17-2024 DIABETES SCREEN DIABETES SCREEN [facility] Start: 05-31-2023 Influenza vaccination INFLUENZA (#1) [facility] Start: 03-14-2023 End: 05-14-2023 Cancer Ag 27-29 [Units/volume] in Serum or Plasma CA 27.29 BLOOD Lab Routine Malignant neoplasm of overlapping sites of right breast in female, estrogen receptor negative (HCC) Iron deficiency anemia secondary to inadequate dietary iron intake Expected: 03/14/2023, Expires: 05/14/2023 [facility] Work Phone: Comment on above: Expected: 03/14/2023 , Expires: 05/14/2023 Start: 03-14-2023 End: 05-14-2023 CBC W Auto Differential panel - Blood CBC + DIFF Lab Routine Malignant neoplasm of overlapping sites of right breast in female, estrogen receptor negative (HCC) Iron deficiency anemia secondary to inadequate dietary iron intake Expected: 03/14/2023, Expires: 05/14/2023 [facility] Work Phone: Comment on above: Expected: 03/14/2023 , Expires: 05/14/2023 Start: 03-14-2023 End: 05-14-2023 Comprehensive metabolic 2000 panel - Serum or Plasma COMP METABOLIC PANEL Lab Routine Malignant neoplasm of overlapping sites of right breast in female, estrogen receptor negative (HCC) Iron deficiency anemia secondary to inadequate dietary iron intake Expected: 03/14/2023, Expires: 05/14/2023 [facility] Work Phone: Comment on above: Expected: 03/14/2023 , Expires: 05/14/2023 Start: 09-30-2022 ADVANCE DIRECTIVE DISCUSSION ADVANCE DIRECTIVE DISCUSSION [facility] Start: 09-30-2022 DEPRESSION ASSESSMENT DEPRESSION ASS ESSMENT [facility] Start: 09-13-2022 End: 11-13-2022 Cancer Ag 27-29 [Units/volume] in Serum or Plasma [facility] Work Phone: Comment on above: Expected: 09/13/2022 , Expires: 11/13/2022 Start: 07-03-2022 COVID-19 VACCINE (5 - Booster for Moderna series) COVID-19 VACCINE (5 - Booster for Moderna series) [facility] Start: 07-03-2022 COVID-19 VACCINE (5 - Moderna series) COVID-19 VACCINE (5 - Moderna series) [facility] Start: 05-31-2022 Influenza vaccination C [facility] Start: 09-30-2021 ADVANCE DIRECTIVE DISCUSSION ADVANCE DIRECTIVE DISCUSSION [facility] Start: 09-30-2021 DEPRESSION ASSESSMENT DEPRESSION ASS ESSMENT [facility] Start: 05-27-2021 Adult depression screening assessment DEPRESSION SCREENING [facility] Start: 12-04-2015 SHINGRIX VACCINE (1 of 2) SHINGRIX VACCINE (1 of 2) [facility] Start: 12-04-2015 SHINGRIX VACCINE (2 of 3) SHINGRIX VACCINE (2 of 3) [facility] Start: 01-04-2013 BONE DENSITY BONE DENSITY [facility] Start: 01-04-2013 Screening for osteoporosis Bone Density Screening [facility] Start: 2008 RSV Vaccine (1 - 1-d ose 60+ series) RSV Vaccine (1 - 1-dose 60+ series) [facility] Start: 01-04-1993 COLOGUARD (FIT-DNA) COLOGUARD (FIT-D NA) [facility] Start: 01-04-1993 Colonoscopy COLONOSCOPY [facility] Start: 01-04-1993 COLORECTAL CANCER SCREENING COLORECTAL CANCER SCREENING [facility] Start: 01-04-[address] COLONOGRAPHY [facility] Start: 01-04-1993 FECAL OCCULT BLOOD FECAL OCCULT BLOO D [facility] Start: 01-04-1993 Screening for malign ant neoplasm of colon [facility] Start: 01-04-1993 SIGMOIDOSCOPY SIGMOIDOSCOPY [facility] Start: 1988 Mammography MAMMOGRAM [facility] Start: 01-04-1967 Urine microalbumin profile [facility] Start: 01-04-1966 HEPATITIS C SCREENING HEPATITIS C [facility] Start: 01-04-1966 Hepatitis C screening Hepatitis C [facility] Start: 01-04-1953 COVID-19 VACCINE (#1) COVID-19 VACCI NE (#1) [facility] Start: 1948 COVID-19 VACCINE (#1) COVID-19 VACCI NE (#1) [facility] End: 04-13-2023 Diagnostic mammography computer-aided detcj uni RAMBO DIAGNOSTIC LT Radiology Routine Malignant neoplasm of overlapping sites of right breast in female, estrogen receptor negative (HCC) 1 Occurrences starting 03/14/2022 until 04/13/2023 [facility] Work Phone: Comment on above: 1 Occurrences starti ng 03/14/2022 until 04/13/2023 End: 07-06-2024 RAMBO DIAGNOSTIC LEFT RAMBO DIAGNOSTIC LEFT Radiology Routine Malignant neoplasm of overlapping sites of right breast in female, estrogen receptor negative (HCC) 1 Occurrences starting 06/07/2023 until 07/06/2024 [facility] Work Phone: Comment on above: 1 Occurrences starti ng 06/07/2023 until 07/06/2024 [facility] Immunizations Immunization Date Immunization Notes Care Provider Fa [facility] 07-21-2019 influenza, high dose seasonal, preservative-free Reginald Aragon MD Work Phone: [facility] 07-21-2019 pneumococcal polysaccharide vaccine, 23 valernst Aragon MD Work Phone: [facility] 06-26-2018 influenza, high dose seasonal, preservative-free Reginald Aragon MD Work Phone: [facility] 06-26-2018 pneumococcal conjuga te vaccine, 13 vicente Aragon MD Work Phone: [facility] 07-17-2017 influenza, high dose seasonal, preservative-free Reginald Aragon MD Work Phone: [facility] 07-01-2017 influenza, injectabl e, quadrivalent, preservative free Reginald Aragon MD Work Phone: [facility] 10-09-2015 zoster vaccine, live Reginald roche MD Work Phone: [facility] 07-11-2015 influenza, seasonal, injectable, preservative free Reginald Aragon MD Work Phone: [facility] 07-11-2015 pneumococcal conjuga te vaccine, 13 vicente Aragon MD Work Phone: [facility] Payers Date Payer Category Payer Self-pay 2022 Medicaid MEDICAID [facility] MEDICAID [id number] 2022-Present [phone] [address] [place] [address] Medicaid [id number] 2018 Medicaid MEDICAID [facility] MEDICAID [id number] 2018-Present [phone] [address] [place] [address] Medicaid [id number] 1988 Medicare MEDICARE MEDICAR E A AND B [id number] 1988-Present [phone] [address] [address] [place] [address] Medicare [id number] 1988 Medicare [id number] 1959 Medicaid [id number] 1959 Medicare [id number] 1959 Self-pay [id number] 1950 Unknown [id number] 1948 Unknown [id number] 2.16.840.1.332891.3.579.2.647 1948 Unknown [id number] 2.16.840.1.313046.3.579.2.647 1948 Unknown [id number] .16.840.1.246456.3.579.2.593 1948 Unknown [id number] 2.16.840.1.550854.3.579.2.593 1948 Unknown [id number] 2.16.840.1.085512.3.579.2.593 1948 Unknown [id number] 2.16.840.1.984530.3.579.2.593 1948 Unknown [id number] 2.16.840.1.944656.3.579.2.1259 1948 Unknown [id number] 2.16.840.1.550874.3.579.2.727 1948 Unknown [id number] 2.16.840.1.631308.3.579.2.727 1948 Unknown [id number] 2.16.840.1.823867.3.579.2.727 1948 Unknown [id number] 2.16.840.1.510046.3.579.2.727 1948 Unknown [id number] 2.16.840.1.886843.3.579.2.727 1948 Unknown [id number] 2.16.840.1.411653.3.579.2.1286 1948 Unknown [id number] 2.16.840.1.662360.3.579.2.128 1948 Unknown [id number] 2.16.840.1.696154.3.579.2.128 1948 Unknown [id number] 2.16.840.1.258783.3.579.2.128 1948 Unknown [id number] 2.16.840.1.449266.3.579.2.128 1948 Unknown [id number] 2.16.840.1.754787.3.579.2.1286 Unknown [id number] 2.16.840.1.743386.3.579.2.531 Social History Date Type Detail Facility Start: 03-18-2019 End: 03-14-2023 Tobacco smoking status OHIS Never smoked tobacco [facility] Start: 03-18-2019 End: 03-14-2023 Tobacco use and exposure Smokeless tobacco non-user [facility] Start: 03-14-2022 End: 03-14-2023 Alcohol intake Lifetime non-drinker (finding) [facility] Start: 01-21-2020 History SDOH Alcohol Frequency 1 [facility] Start: 1950 Sex Assigned At Not on file [facility] Start: 03-04-2022 End: 03-14-2022 Exposure to SARS-CoV-2 (event) Not sure [facility] Start: 01-21-2020 End: 03-14-2023 History of Social function [facility] Start: 01-21-2020 End: 03-14-2023 Alcohol Use Disorder Identification Test - Consumption [AUDIT-C] [facility] How often to you hav e a drink containing alcohol? Never [facility] Average Number of Drinks Not on file [facility] NEGATED: Highlighted rowStart: NINF History of tobacco use Passive smoker [facility] Clinical Notes 03-14-2022 to 06-25-2024 Telephone Encounter - Carin Ramos RN - 09/12/2023 2:58 PM ESTTelephone Encounter - Carin Ramos RN - 09/12/2023 1:38 PM ESTTelephone Encounter - Carin Ramos RN - 06/10/2023 12:58 PM EDT Note Date & Type Note Facility 06-25-2024 Note Patient here for 1 w [place] follow up HFpEF. She has lost 15# since apt last week. Says her BOSCH and LE edema are improving. She took 80mg of lasix BID x3 days, and is back to taking 80mg in the AM and 40mg in the PM. Denies chest pain, lightheadedness/syncope, palpitations, and bleeding on Eliquis. Review of Systems Constitutional: Positive for weight loss (15# since 06/17/2024). Cardiovascular: Positive for dyspnea on exertion (improving) and leg swelling (improving). Musculoskeletal: Positive for joint pain. All other systems reviewed and are negative. [facility] 06-17-2024 Note Cardiovascular Medic [facility] SUBJECTIVE Patient here for 1 mo follow up HFpEF, persistent afib, hypertension, and CAD. She had labs and echo last week. Denies chest pain, SOB, palpitations, and lightheadedness/syncope. Denies bleeding on Eliquis. She's down 8# since last visit on 05/13/2024 on our scale, but caregiver says she's slowing gaining weight again. Says she's weighed every 2-3 days at home. Kaylie Salomon is a 74 y.o. female here for follow-up. HPI PMHx: HFpEF, persistent a.fib, asthma, nonobstructive CAD, GERD, hypertension, MRDD, depression, breast Ca with radiation theray 2018 or 2019 Her visiting nurse called on 06/03/24 for c/o increased SOB, weight gain, increased leg swelling. Her lasix was increased to 40mg BID. Her weight is down 8# since last seen. Patient and caregiver note that patient watches her fluid intake. She likes to snack. Patient is alone in the evening. Caregiver notes that a new guardian was appointed. 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 Morbid obesity (CMS/HCC) Severe persistent asthma Paroxysmal A-fib (CMS/HCC) Altered mental status, unspecified Hallucination Psychosis ([facility]) Past Medical History: Diagnosis Date Asthma Atrial fibrillation (CMS/HCC) Breast cancer (CMS/HCC) RADIATION 2017 Coronary artery disease Depression Diabetes (CMS/HCC) GERD (gastroesophageal reflux disease) Hypertension Myocardial infarct ([facility]) Obesity BMI 40.45 Family History Problem Relation [...] seafood Sulfa (Sulfonamide Antibiotics) Other and Unknown Jzyancmg-Znmldozmbz-Apnaqmygq Rash Penicillins Rash Review of Systems Constitutional: Positive for weight loss (8# since 05/13/24). Cardiovascular: Positive for leg swelling. Musculoskeletal: Positive for joint pain. OBJECTIVE Visit Vitals BP 130/74 (BP Location: Right wrist, Patient Position: Sitting) Pulse 66 Ht 1.727 m (5' 8 ) Wt 124 kg (274 lb) SpO2 91% BMI 41.66 kg/m??? OB Status Postmenopausal Smoking Status Never BSA 2.44 m??? Medications: Current Outpatient Medications: albuterol 90 mcg/actuation inhaler, Inhale 2 puffs in the morning, at noon, and at bedtime., Disp: , Rfl: apixaban (Eliquis) 5 mg tablet, Take 1 tablet by mouth in the morning and at bedtime., Disp: , Rfl: atorvastatin (Lipitor) 40 mg t (more content not included)... [facility] 06-17-2024 Note This report has been cancelled. [facility] 06-02-2024 Note Caregiver called and states pt [...] within the next 1-3 weeks. Elif Espinoza [facility] Cardiology Available 7a-5pm via [employer] Pager [phone] [facility] 05-13-2024 Note Cardiovascular Medic [facility] SUBJECTIVE Chief Complaint Patient presents with [...] is unsure about the a.fib ablation. Her clerical and office support workers continue to discuss this with her. Denies [...] negative (CMS/HCC) Atrial fibrillation status post cardioversion ([facility]) Sinusitis Type 1 diabetes mellitus ([facility]) Chronic heart failure with preserved ejection fraction ([facility] [facility]) Electrolyte and fluid disorder jail 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 steroid Morbid obesity ([facility]) Severe persistent asthma Paroxysmal A-fib ([facility]) Altered mental status, unspecified Hallucination Psychosis ([facility]) Past Medical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
[2024-06-30 11:43] LABS: Anion Gap 10.4; BUN Creatinine Ratio 28.7; Calcium 9.1 mg/dL (8.5-10.1); Carbon Dioxide 34.9 mmol/L (21.0-32.0); Chloride 98 mmol/L (98-107); Estimated GFR (African America 37 (>=60); Estimated GFR (Non-African Ame 30 (>=60); Glucose 97 mg/dL (74-106); Potassium 3.3 mmol/L (3.5-5.1); Sodium 140 mmol/L (136-145)
== END 2024-06-30 10:54 | disposition home or self-care (01) ==
LOC: LAB 10:56
PROVIDERS: PCP Nurse Practitioner; Visit Provider Nurse Practitioner Family
DX: I50.32 Chronic diastolic (congestive) heart failure (principal)
CPT/HCPCS: 36415; 80048

== ENCOUNTER 2024-07-06 10:32 | Outpatient (OUT) | payer MEDICARE, MEDICAID, SELFPAY ==
--- NOTE | 2024-07-06 | XR_ITS ---
The [address] [address] Patient Name: RUBI SALOMON MRN: [id number] date: 1950 Sex: F Assigned Patient Location: Current Patient Location: Accession/Order Number: [id number] Exam Date: 07/06/2024 10:40 Report Date: 07/08/2024 05:33 At the request of: DEEPTI PHELPS Procedure: XR shoulder LT min 2V PROCEDURE: XR shoulder LT min 2V HISTORY: LEFT SHOULDER PAIN COMPARISON: XR shoulder left 06/08/2024 FINDINGS: BONES:Prior fracture of left humerus surgical neck with impaction into the humeral head. Large degenerative osteophyte along inferior articular margin of the humeral head and suspected doax-yh-tfah contact of the humeral head and glenoid. SOFT TISSUES:No visible soft tissue swelling. EFFUSION:None visible. OTHER: Negative. XR/XR shoulder LT min 2V IMPRESSION: 1. Stable prior fracture and impaction of humeral shaft into the humeral head. Incomplete osseous fusion. 2. Marked degenerative joint disease. Electronically authenticated by: DEEPTI MALLORY Date: 07/08/2024 05:33
--- OUTSIDE RECORDS SUMMARY | 2024-07-06 10:52 | XMS_ITS | CCD ---
Author Organization [facility] Care Team Providers Care Provider Service Representative Name Role Phone SHEMAR HUDSON Admitting Unavailable SHEMAR HUDSON Attending Unavailable UNKNOWN, PHYSICIAN Referring Unavailable UNKNOWN, PHYSICIAN Primary Care Unavailable ARACELI SANDHU Admitting Unava ilable MEARACELI LONGO Attending Unava ilable UNKNOWN, PHYSICIAN Referring Unavailable UNKNOWN, PHYSICIAN Primary Care Unavailable Charles Landeros MD Primary Care Provider Emmanuel MUSIC THERAPY TEACHER.DIGITAL SALES ASSISTANT, Samantha Unavailable Reginald Aragon MD Unavailable [phone] Charles Landeros MD Primary Care Provider Emmanuel MUSIC THERAPY TEACHER.DIGITAL SALES ASSISTANT, Samantha Unavailable Reginald Aragon MD Unavailable Charles Landeros MD Primary Care Provider Emmanuel MUSIC THERAPY TEACHER.DIGITAL SALES ASSISTANT, Samantha Unavailable [phone] Reginald Aragon MD Unavailable [phone] TIGRE, DR CHARLES Keith Admitting Unavailable TIGRE, DR CHARLES Keith Attending Unavailable TIGRE, DR CHARLES Keith Primary Care Unavailable NALLELY, DR MILIAN Admitting Unavailable NALLELY, DR MILIAN Attending Unavailable NALLELY, DR MILIAN Consulting Unavailable TIGRE, DR CHARLES Keith Primary Care Unavailable SHAWNEE, DR DEEPTI Mondragon Consulting Unavailable TIGRE, DR CHARLES Keith Admitting Unavailable TIGRE, DR CHARLES Keith Attending Unavailable TIGRE, DR CHARLES Keith Consulting Unavailable TIGRE, DR CHARLES Keith Primary Care Unavailable ZIEBER, DR DEEPTI Mondragon Consulting Unavailable BRIANA, MITCHEL Admitting Unavailable GABRIELLE LIU Consulting Unavailable BRIANA, MITCHEL Attending Unavailable TIGRE, DR CHARLES Keith Primary Care Unavailable BRIANA, MITCHEL Consulting Unavailable REGINALD ARAGON Referring Unavailable REGINALD ARAGON Attending Unavailable TIGRE, CHARLES GORDON Primary Care Unavailable REGINALD ARAGON Referring Unavailable TIGRE, CHARLES GORDON Primary Care Unavailable REGINALD ARAGON Referring Unavailable REGINALD ARAGON Attending Unavailable TIGRE, CHARLES PRASHANTDELICIA Primary Care Unavailable LANDEROS, CHARLES PRASHANTDELCIIA Primary Care Unavailable REGINALD ARAGON Referring Unavailable JENSEN CARTER Attending Unavailable Con, Oh Fuentes Attending Unavailable Con, Oh Fuentes Attending Unavailable Con, Oh Fuentes Attending Unavailable Con, Oh Fuentes Attending Unavailable Con, Oh Fuentes Attending Unavailable CON, OH Fuentes Referring Unavailable CON, OH L Primary Care Unavailable CON, OH L Referring Unavailable CON, OH L Primary Care [...] Unavailable ROSA VILLA Attending Unavailable BRIAN GIL Attending Unavailable JEFFERY, BRIAN Referring Unavailable OLGAELIF Attending Unavailable BRIAN GIL Attending Unavailable JEFFERYBRIAN Neal Referring Unavailable JEFFERYBRIAN Referring Unavailable JEFFERYBRIAN Neal Admitting Unavailable BRIAN GIL Attending Unavailable MELISSA TORRES Attending Unavailable PIETRO ALDRIDGE Attending Unavailable ROSA VILLA Attending Unavailable Tigre DORSEY, Charles Gordon Primary Care Provider Allergies Allergy Classification Reported Allergen(s) Allergy Type Date of Onset Reaction(s) Facility (3 sources) Penicillin; Translations: [penicillin] Drug Allergy 01-17-20 [facility] (5 sources) Sulfonamides (Antibiotic); Translations: [SULFA (SULFONAMIDE ANTIBIOTICS)] Drug allergy (disorder) 01-28-20 10 [facility] (12 sources) bacitracin / neomycin / polymyxin b; Translations: [NEOMYCIN-BACITRAC IN-POLYMYXIN] Drug Allergy 05-06-20 19 [facility] (13 sources) Clarithromycin; Translations: [CLARITHROMYCIN] Drug Allergy 01-28-20 10 [facility] (12 sources) Estrogens, Conjugated (SKILLED NURSING); Translations: [CONJUGATED ESTROGENS] Drug Allergy 01-28-20 10 [facility] (11 sources) PACLitaxel; Translations: [PACLITAXEL] Drug Allergy 08-24-20 19 Other: See Comments [facility] (12 sources) peanut allergenic extract; Translations: [PEANUT] Drug Allergy 05-06-20 19 Anaphylaxis [facility] (4 sources) Penicillins; Translations: [PENICILLINS] Drug Allergy 05-06-20 19 [facility] (9 sources) Sulfonamides (Antibiotic) Drug Allergy 01-28-20 10 [facility] (8 sources) Penicillins Drug Allergy 05-06-20 19 [facility] (3 sources) Bacitracin; Translations: [bacitracin] Drug Allergy 05-16-20 [facility] Repository (1 source) peanut; Translations: [Peanuts] Food allergy (disorder) [facility] Repository (3 sources) Shrimp product; Translations: [Shrimp] Food allergy (disorder) 05-07-20 [facility] Repository (1 source) Sulfonamides (Antibiotic); Translations: [sulfa drugs] Propensity to adverse reactions (disorder) [facility] Repository (4 sources) Pineapple; Translations: [Pineapple] Food allergy (disorder) 05-07-20 [facility] Repository (1 source) Clarithromycin Drug Allergy 05-16-20 [facility] Repository (2 sources) Estrogens, Conjugated (SKILLED NURSING); Translations: [ESTROGENS, CONJUGATED] Drug Allergy 05-16-20 [facility] Repository (1 source) Fish Oils Drug Allergy 06-12-20 [facility] Repository (1 source) Neomycin Drug Allergy 05-16-20 [facility] Repository (1 source) PACLitaxel Drug Allergy 05-16-20 [facility] Repository (1 source) peanut allergenic extract Drug Allergy 05-16-20 [facility] Repository (1 source) Penicillins Drug allergy (disorder) 06-12-20 [facility] Repository (1 source) Sulfacetamide Drug Allergy 06-12-20 [facility] Rep[facility] (1 source) Sulfonamides (Antibiotic) Drug allergy (disorder) 05-16-20 [facility] Rep[facility] (1 source) Sulfur Drug Allergy 06-12-20 [facility] (1 source) tree nut, unspecified Drug allergy (disorder) 06-12-20 [facility] Repository (2 sources) polymyxin B; Translations: [POLYMYXIN B] Drug allergy (disorder) 05-16-20 [facility] Repository (1 source) Bromelains; Translations: [BROMELAINS] Drug Allergy 04-25-20 [facility] Rep[facility] (1 source) Neomycin; Translations: [NEOMYCIN SULFATE] Drug Allergy 04-25-20 [facility] Medications Current Medications Medication Drug Class(es) Dates Sig (Normalized) Sig (Original) acetaminophen 500 mg oral tablet (9 sources) take 2 tablets by mouth every six hours as needed acetaminophen (TYLENOL) 500 mg tablet Take 1,000 mg by mouth every 6 hours as needed. Active Comment on above: Take 1,000 mg by zohreh th every 6 hours as needed. ADULTS 50 PLUS 0.4-300-250 mg-mcg-mcg tab (9 sources) Start: 01-04-2021 take 1 tablet by mouth once daily ADULTS 50 PLUS 0.4-300-250 mg-mcg-mcg tab Take 1 tablet by mouth once daily. 01/04/2021 Active Start: 01-04-2021 take 1 tablet by zohreh th once daily ADULTS 50 PLUS 0.4-300-250 mg-mcg-mcg tab Take 1 tablet by mouth once daily. 0 01/04/2021 Active Comment on above: Take 1 tablet by zohreh th once daily. [id number] 200 actuat albuterol 0.09 mg/actuat metered dose inhaler (9 sources) beta2-Adrenergic Agonist take 2 puff(s) by inhalation every six hours as needed albuterol HFA (PROVENTIL HFA, VENTOLIN HFA) 90 mcg/actuation inhaler Inhale 2 Puffs as instructed every 6 hours as needed. Active Comment on above: Inhale 2 Puffs as in structed every 6 hours as needed. albuterol 0.833 mg/ml / ipratropium bromide 0.167 mg/ml inhalation solution (9 sources) Anticholinergic, beta2-Adrenergic Agonist Start: take 1 dose by inhalation four times daily ipratropium-albuter ol (DUONEB) 0.5 mg-3 mg(2.5 mg base)/3 mL nebu INHALE THE CONTENTS OF 1 VIAL THROUGH NEBULIZER QID 02/27/2020 Active Comment on above: INHALE THE CONTENTS OF 1 VIAL THROUGH NEBULIZER QID apixaban 5 mg oral tablet (9 sources) Factor Xa Inhibitor Start: take 1 tablet by mouth twice daily ELIQUIS 5 mg tab(s) Take 5 mg by mouth twice daily. 03/17/2019 Active Comment on above: Take 5 mg by mouth t wice daily. atorvastatin 40 mg oral tablet (9 sources) HMG-CoA Reductase Inhibitor Start: take 1 tablet by mouth once daily atorvastatin (LIPITOR) 40 mg tablet Take 40 mg by mouth once daily. 3 01/16/2019 Active Comment on above: Take 40 mg by mouth once daily. 1 ml benralizumab 30 mg/ml auto-injector (9 sources) Interleukin-5 Receptor alpha-directed Cytolytic Antibody Start: FASENRA PEN 30 mg/mL 02/21/2021 Active cholecalciferol 0.05 mg oral capsule (9 sources) Vitamin D Start: VITAMIN D-3 2,000 unit cap 2,000 Units once daily. 5 03/01/2019 Active Comment on above: 2,000 Units once linda ly. dapagliflozin 5 mg oral tablet (9 sources) Sodium-Glucose Cotransporter 2 Inhibitor Start: take 2 tablets by mouth once daily FARXIGA 5 mg tablet Take 10 mg by mouth once daily. 11/30/2020 Active Start: 11-30-2020 FARXIGA 5 mg t ablet Comment on above: Take 10 mg by mouth once daily. fluticasone propionate 0.05 mg/actuat metered dose nasal spray (9 sources) Corticosteroid Start: 02-27-20 fluticasone (FLONASE) 50 mcg/actuation nasal spray 2 Sprays once daily. 0 02/26/2019 Active Comment on above: 2 Sprays once daily. 60 actuat fluticasone propionate 0.5 mg/actuat / salmeterol 0.05 mg/actuat dry powder inhaler (9 sources) Corticosteroid, beta2-Adrenergic Agonist Start: 03-03-20 ADVAIR DISKUS 500-50 mcg/dose dsdv 1 Puff twice daily. 5 03/03/2019 Active Comment on above: 1 Puff twice daily. furosemide 20 mg oral tablet (9 sources) Loop Diuretic Start: 01-17-20 19 take 3 tablets by mouth once daily furosemide (LASIX) 20 mg tablet Take 60 mg by mouth once daily. 3 01/16/2019 Active Start: 01-16-2019 take 2 tablets by mo [facility] once daily furosemide (LASIX) 20 mg tablet Take 40 mg by mouth once daily. 3 01/16/2019 Active Start: 01-16-2019 [facility] (LASIX) 20 mg tablet Take 20 mg by mouth once daily. 3 01/16/2019 Active Comment on above: Take 20 mg by mouth once daily. Take 40 mg by mouth once daily. Take 60 mg by mouth once daily. loratadine 10 mg oral tablet (9 sources) Start: 9 take 1 tablet by mouth once daily loratadine (CLARITIN) 10 mg tablet Take 10 mg by mouth once daily. 0 05/19/2019 Active Comment on above: Take 10 mg by mouth once daily. losartan potassium 100 mg oral tablet (9 sources) Angiotensin 2 Receptor Amber Start: 9 take 1 tablet by mouth once daily losartan (COZAAR) 100 mg tablet Take 100 mg by mouth once daily. 3 03/13/2019 Active Comment on above: Take 100 mg by mouth once daily. metFORMIN hydrochloride 500 mg oral tablet (9 sources) Biguanide Start: 0 take 1 tablet by mouth twice daily metFORMIN (GLUCOPHAGE) 500 mg tablet TK 1 T PO BID 08/05/2020 Active Comment on above: TK 1 T PO BID metoprolol tartrate 50 mg oral tablet (9 sources) beta-Adrenergic Amber Start: 9 metoprolol tartrate, [...] a day. montelukast 10 mg oral tablet (9 sources) Leukotriene Receptor Antagonist Start: 2019 take 1 tablet by mouth once daily montelukast (SINGULAIR) 10 mg tablet TK 1 T PO QD 03/08/2020 Active Comment on above: TK 1 T PO QD nystatin 100 unt/mg topical powder (9 sources) Polyene Antifungal Start: 2019 NYSTOP powder Apply to affected area two times a day as needed. APPLY TO AFFECTED AREA 10/12/2019 Active Comment on above: Apply to affected ar ea twice daily as needed. APPLY TO AFFECTED AREA Apply to affected ar ea two times a day as needed. APPLY TO AFFECTED AREA ondansetron 8 mg oral tablet (9 sources) Serotonin-3 Receptor Antagonist Start: 2018 take 1 tablet by mouth every eight hours as needed ondansetron (ZOFRAN) 8 mg tablet Take 1 tablet by mouth every 8 hours as needed for Nausea/Vomiting. 30 tablet 2 04/27/2019 Active Comment on above: Take 1 tablet by zohreh th every 8 hours as needed for Nausea/Vomiting. pantoprazole 40 mg delayed release oral tablet (9 sources) Proton Pump Inhibitor take 1 tablet by mouth once daily pantoprazole DR (PROTONIX) 40 mg tablet Take 40 mg by mouth once daily. Active Comment on above: Take 40 mg by mouth once daily. predniSONE 10 mg oral tablet (9 sources) Start: 2019 take 3 tablets by mouth once daily in the morning predniSONE (DELTASONE) 10 mg tablet TK 3 TS PO QAM FOR 3 DAYS FOR ASTHMA FLARE 05/02/2020 Active Comment on above: TK 3 TS PO QAM FOR 3 DAYS FOR ASTHMA FLARE prochlorperazine 10 mg oral tablet (9 sources) Phenothiazine Start: 2018 take 1 tablet by mouth every six hours as needed prochlorperazine (COMPAZINE) 10 mg tablet Take 1 tablet by mouth every 6 hours as needed. 30 tablet 2 04/27/2019 Active Comment on above: Take 1 tablet by [facility] every 6 hours as needed. sertraline 50 mg oral tablet (9 sources) Serotonin Reuptake Inhibitor Start: 2018 take 1 tablet by mouth once daily sertraline (ZOLOFT) 50 mg tablet Take 50 mg by mouth once daily. 5 03/02/2019 Active Comment on above: Take 50 mg by mouth once daily. silver sulfADIAZINE 10 mg/ml topical cream (9 sources) Sulfonamide Antibacterial Start: 2019 silver sulfADIAZINE (SILVADENE,THERMAZENE ) 1 % cream Apply to affected area twice daily 11/06/2019 Active Comment on above: Apply to affected ar ea twice daily 60 actuat tiotropium 0.02379 mg/actuat inhalation spray (9 sources) Anticholinergic Start: 2018 take 1.25 ug by inhalation once daily SPIRIVA RESPIMAT 1.25 mcg/actuation mist Inhale 2 Puffs as instructed once daily. 12 03/12/2019 Active Comment on above: Inhale 2 Puffs as in structed once daily. WOMEN'S MULTIVITAMIN 18 mg-400 mcg- 500 mg-50 mcg tab (9 sources) Start: 2018 take 1 tablet by mouth once daily WOMEN'S MULTIVITAMIN 18 mg-400 mcg- 500 mg-50 mcg tab TK 1 T PO D 3 01/14/2019 Active Comment on above: TK 1 T PO D Completed/Discontinued Medications Medication Drug Class(es) Dates Sig (Normalized) Sig (Original) ARIPiprazole 15 mg oral tablet (1 source) Atypical Antipsychotic take 1 tablet by mouth once daily ARIPiprazole (ABILIFY) 15 mg tablet Take 15 mg by mouth once daily. 0 Active Comment on above: Take 15 mg by mouth once daily. 30 actuat fluticasone furoate 0.1 mg/actuat / vilanterol 0.025 mg/actuat dry powder inhaler (1 source) Corticosteroid, beta2-Adrenergic Agonist Start: 09-10-2023 BREO ELLIPTA 100-25 mcg/dose inhaler potassium chloride 20 meq extended release oral tablet (19 sources) Start: 04-20-2022 End: 10-11-2022 take 2 tablets by mouth once daily potassium chloride 20 mEq TbER TAKE 2 TABLETS BY MOUTH EVERY DAY 180 tablet 0 10/11/2022 Active Start: 12-04-2021 take 2 tablets by mo uth once daily potassium chloride 20 mEq TbER TAKE 2 TABLETS BY MOUTH EVERY DAY 180 tablet 0 12/04/2021 Active Start: 02-16-2021 take 2 tablets by mo uth once daily potassium chloride ER (K-DUR, KLOR-CON) 20 mEq tablet Take 2 tablets by mouth once daily. 180 tablet 1 02/16/2021 Active Comment on above: Take 2 tablets by mo uth once daily. TAKE 2 TABLETS BY MO UTH EVERY DAY spironolactone 25 mg oral tablet (1 source) Aldosterone Antagonist take 1 tablet by mouth once daily spironolactone (ALDACTONE) 25 mg tablet Take 25 mg by mouth once daily. 0 Active Comment on above: Take 25 mg by mouth once daily. Problems Active Problems Problem Classification Problem Date Documented Da te Episodic/Chronic Asthma (1 source) Unspecified asthma, uncomplicated; Translations: [UNSPECIFIED ASTHMA UNCOMPLICATED] Onset: 07-25-2022 Chronic Cancer of breast (19 sources) Overlapping malignant neoplasm of female breast; [...] 07-25-2022 Chronic Other aftercare (1 source) Other prison (current) drug therapy; Translations: [OTH JAIL CURRENT DRUG THERAPY] Onset: 07-25-2022 Episodic Other lower respiratory disease (1 source) Shortness of breath; Translations: [SHORTNESS OF BREATH] Onset: 07-25-2022 Episodic Other lower respiratory disease (1 source) Multiple nodules of lung; Translations: [Other nonspecific abnormal finding of lung field] 08-17-2021 Episodic Other nutritional; endocrine; and metabolic disorders [...] Da te Episodic/Chronic Deficiency and other anemia (10 sources) Iron deficiency anemia secondary to inadequate [...] Test Name Value Interpretation Reference Range Facility [id number] 37 *Continue lasix 80mg in the AM and 40mg in the PM *Continue 2L or 64 oz of daily fluid allowance *Continue to monitor daily weights *Have labs done to follow-up on kidney function Normal [facility] Office Visiton 06-25-2024 Follow-up visit [id number] Kaylie Salomon 1950 Date Provider Department Center 06/25/2024 ROSA LÓPEZ Family History Problem Relation Age of Onset Heart failure Mother Family Status - Relation Status Age at Mother Level of Service:75717 [place] OFFICE/OUTPATIENT ESTABLISHED MOD MDM 30 MIN Normal [facility] 37on 06-17-2024 37 *Increase lasix to 80mg (2 tablets of 40mg) BID x3 days then take lasix 80mg in the AM and 40mg in the PM. Can take second dose around 4pm. *Limit fluid intake to 2L a day. *Limit sodium intake to 2L a day Normal [facility] Office Visiton 06-17-2024 Follow-up visit [id number] Kaylie Salomon 1950 Date Provider Department Center 06/17/2024 ROSA LÓPEZ Family History Problem Relation Age of Onset Heart failure Mother Family Status - Relation Status Age at Mother Level of Service:13075 [place] OFFICE/OUTPATIENT ESTABLISHED MOD MDM 30 MIN Normal [facility] Orders Onlyon 06-02-2024 Orders Only [id number] UliseswinsomeKaylie Ada 1950 F Date Provider Department Center 06/02/[address] Family History Problem Relation Age of Onset Heart failure Mother Family Status - Relation Status Age at Mother Normal [facility] BASIC METABOLIC PANLon 05-20 Anion gap [Moles/Vol] 10 mmol/L Normal 5-15 [facility] Comment on above: Performed By: #### 3 0934-4 #### [facility] ([id number]) [address] [place] [address] #### BMP #### [facility] ([id number]) [address], [address] [place] [address] Calcium [Mass/Vol] 9.5 mg/dL Normal 8.5-10.5 [facility] Comment on above: Performed By: #### 3 0934-4 #### [facility] ([id number]) [address] [place] [address] #### BMP #### [facility] ([id number]) [address], [address] [place] [address] Chloride [Moles/Vol] 96 mmol/L Low 98-109 [facility] Comment on above: Performed By: #### 3 0934-4 #### [facility] ([id number]) [address] [place] [address] #### BMP #### [facility] ([id number]) [address], [address] [place] [address] CO2 [Moles/Vol] 36 mmol/L High 22-32 [facility] Comment on above: Performed By: #### 3 0934-4 #### [facility] ([id number]) [address] [place] [address] #### BMP #### [facility] ([id number]) [address] [facility], [address] [place] [address] Creatinine [Mass/Vol] 1.35 mg/dL High 0.40-1.00 [facility] Comment on above: Result Comment: METH OD TRACEABLE TO IDMS STANDARD Performed By: #### 3 0934-4 #### [facility] ([id number]) [address] [place] [address] #### BMP #### [facility] ([id number]) [address] [facility], [address] [place] [address] GFR/1.73 sq M.predicted among non-blacks MDRD (S/P/Bld) [Vol rate/Area] 41 mL/min/{1.73_m2} Low >59 [facility] Comment on above: Result Comment: Reported eGFR is based on the CKD-EPI 2020 equation that does not use a race coefficient. Performed By: #### 3 0934-4 #### [facility] ([id number]) [address] [place] [address] #### BMP #### [facility] ([id number]) [address], [address] [place] [address] Glucose [Mass/Vol] 98 mg/dL Normal 65-99 [facility] Comment on above: Performed By: #### 3 0934-4 #### [facility] ([id number]) [address] [place] [address] #### BMP #### [facility] ([id number]) [address], [address] [place] [address] Potassium [Moles/Vol] 4.1 mmol/L Normal 3.5-5.0 [facility] Comment on above: Performed By: #### 3 0934-4 #### [facility] ([id number]) [address] [place] [address] #### BMP #### [facility] ([id number]) [address] [facility], [address] [place] [address] Sodium [Moles/Vol] 142 mmol/L Normal 134-146 [facility] Comment on above: Performed By: #### 3 0934-4 #### [facility] ([id number]) [address] [place] [address] #### BMP #### [facility] ([id number]) [address] [facility] [facility] [address] [place] [address] Urea nitrogen [Mass/Vol] 30 mg/dL High 5-27 [facility] Comment on above: Performed By: #### 3 0934-4 #### [facility] ([id number]) [address] [place] [address] #### BMP #### [facility] ([id number]) [address] [facility], [facility] [address] [place] [address] Natriuretic peptide B [Mass/ Vol]on 05-20-2024 Natriuretic peptide B (Bld) [Mass/Vol] 359 pg/mL High <100.0 [facility] Comment on above: Performed By: #### 3 0934-4 #### [facility] ([id number]) [address] [place] [address] #### BMP #### [facility] ([id number]) [address] [facility] [facility] [address] [place] [address] Office Visiton 05-13-2024 Follow-up visit [id number] Kaylie Salomon 1950 F Date Provider Department Center 05/13/2024 ROSA LÓPEZ CARD [facility] Family History Problem Relation Age of Onset Heart failure Mother Family Status - Relation Status Age at Mother Level of Service:45474 [place] OFFICE/OUTPATIENT ESTABLISHED MOD MDM 30 MIN Reason for Visit and Comments: Atrial Fibrillation [80] Congestive Heart Failure [127] Normal [facility] MICROALBUMIN - ALBUMIN:CREAT ININE URINE RATIOon 05-06-2024 ALB/CREAT RATIO 42.4 mg/g creat High 0.0-30.0 [facility] Comment on above: Performed By: #### M ALBU #### [facility] ([id number]) [address], [address] [place] [address] Albumin DL <= 20 mg/L (U) [Mass/Vol] 0.8 mg/dL Normal 0.0-1.9 [facility] Comment on above: Performed By: #### M ALBU #### [facility] ([id number]) [address], [address] [place] [address] URINE CREAT 18.87 mg/dL Normal [facility] Comment on above: Performed By: #### M ALBU #### [facility] ([id number]) [address], [address] [place] [address] PROTEIN CREAT RATIOon 2023 RANDOM URINE PROTEIN 60 mg/L Normal <120 [facility] Comment on above: Performed By: #### U PCR #### [facility] ([id number]) [address], [address] [place] [address] U/PRO/PRODUCER DIRECTOR RATIO CALC 0.32 High <0.2 [facility] Comment on above: Result Comment: Neph rotic Syndrome is associated with ratios >3.5 Performed By: #### U PCR #### [facility] ([id number]) [address], [address] [place] [address] URINE CREATININE,RDM 18.77 mg/dL Normal [facility] Comment on above: Performed By: #### U PCR #### [facility] ([id number]) [address], [address] [place] [address] 36on 05-05-2024 36 Patient's caregiver called back and I relayed message per Mirna to restart PM dose of lasix and have labs today. She will also have repeat labs on Saturday and will see Shayy on Saturday, 05/13. Lab orders faxed to [facility] in [place]. Normal [facility] HGB A1C (GLYCO-HGB)on 2023 Glucose [Mass/Vol] 134 mg/dL Normal [facility] Comment on above: Performed By: #### H A1C, 78515-2 #### [facility] ([id number]) [address], [address] [place] [address] HbA1c (Bld) [Mass fraction] 6.3 % High 4.4-5.6 [facility] Comment on above: Result Comment: NOTE ADA Guidelines Result HgbA1c Normal : less than 5.7 % Prediabetes : 5.7 % to 6.4 % Diabetes : > 6.4 % Use with caution in patients with abnormal hemoglobin variants as the half-life of red blood cells and in vivo glycation rates are affected. Performed By: #### H A1C, 12428-1 #### [facility] ([id number]) [address], [address] [place] [address] Lipid 1996 panelon 4 Cholesterol [Mass/Vol] 95 mg/dL Low 150-200 [facility] Comment on above: Performed By: #### H A1C, 35025-1 #### [facility] ([id number]) [address], [address] [place] [address] Cholesterol in HDL [Mass/Vol] 50 mg/dL Normal >39 [facility] Comment on above: Result Comment: HDL <40 mg/dL - High Risk HDL > or = 40mg/dL- Desirable HDL >60 mg/dL - Negative Risk Performed By: #### H A1C, 09507-0 #### [facility] ([id number]) [address], [facility] [address] [place] [address] Cholesterol in LDL [Mass/Vol] 30 mg/dL Normal <130 [facility] Comment on above: Result Comment: LDL <100 mg/dL - Desirable LDL >160 mg/dL - High Risk Performed By: #### H A1C, 17111-6 #### [facility] ([id number]) [address], [address] [place] [address] Cholesterol in VLDL [Mass/Vol] 15 mg/dL Normal 0-30 [facility] Comment on above: Performed By: #### H A1C, 20156-4 #### [facility] ([id number]) [address], [address] [place] [address] CHOLESTEROL:HDL 1.9 Normal 1.0-5.0 [facility] Comment on above: Performed By: #### H A1C, 03888-2 #### [facility] ([id number]) [address], [address] [place] [address] Triglyceride [Mass/Vol] 73 mg/dL Normal 27-150 [facility] Comment on above: Performed By: #### H A1C, 51221-0 #### [facility] ([id number]) [address], [facility] [address] [place] [address] Orders Onlyon 05-05-2023 Orders Only [id number] Kaylie Salomon 1950 F Date Provider Department Center 05/05/2024 CassiaRADHA JARA [facility] Mckenzie [facility] Family History Problem Relation Age of Onset Heart failure Mother Family Status - Relation Status Age at Mother Normal [facility] Orders Onlyon 05-04-2024 Orders Only [id number] Kaylie Salomon A 1950 F Date Provider Department Center 05/04/2024 ELIF ACOSTA Nuris Mayra Family History Problem Relation Age of Onset Heart failure Mother Family Status - Relation Status Age at Mother Normal [facility] Family Medicine Office/Clini c Noteon 03-30-2024 [...] [facility] [place] denies needs at this time. RTC 6 months 2. Hypertensive disorder (I10: Essential (primary) hypertension) BP at goal today 3. BMI 45.0-49.9, adult (Z68.42: Body mass index [BMI] 45.0-49.9, adult) BMI educatin given 4. Non-smoker (Z78.9: Other specified health status) continue not smoking Orders: dapagliflozin, 5 mg = 1 tab(s), Oral, Daily, # 90 tab(s), Refills(s) 3, Pharmacy: [id number] predniSONE, 30 mg = 3 tab(s), Oral, Once, take 3 tabs in am for 3 days for asthma flare up, # 9 tab(s), Refills(s) 1, Pharmacy: [facility] #[id number] Follow-up No qualifying data available Problem List/Past Medical History Ongoing Adult BMI 40.0-44.9 kg/sq m Allergic rhinitis Chronic respiratory failure with hypoxia Coronary arteriosclerosis in [place] artery Drooling Gastroesophageal reflux disease Heart failure, systolic and diastolic Hyperlipidemia due to type 2 diabetes mellitus Hypertensive disorder Hypoxemia Iron deficiency anemia secondary to inadequate dietary iron intake jail (current) use of inhaled steroids Lumbosacral spondylosis [...] 100 in l (more content not included)... [facility] Comment on above: Result Comment: Elec tronically Signed By: Oh Wynne\.br\Date and Time Signed: 03/30/24 12:26 EDT Home Health Recordson 2023 Home Health Records [id number]#1.0 0TIFF [facility] Pre-Visit Planningon 024 Pre-Visit Planning - From: Elif Cabrera To: Oh Wynne; Sent: 03/04/2024 15:13:04 EDT Subject: Pre-Visit Planning Due Date/Time: 03/04/2024 15:13:00 EDT Caller Name: KAYLIE SALOMON; Caller Number: Zee , M [place]. During a pre-visit planning chart review, I noted the following documentation in the medical record: Current Problem List: Drooling and Tremor of both hands. Current Medication List: sertraline 50 mg daily. 01/09/2024 Office Visit Note: Tremor of both hands (R25.1: Tremor, unspecified) patient and caregiver states her psychiatrist from [facility] started her on ability due [...] Score or Psychiatry Consult Notes located in [facility]. Based on your medical judgment, can you [...] feel free to contact me at extension [phone]. Thank you! Elif Cabrera LPN From: Oh Wynne To: Elif Cabrera; Sent: 03/06/2024 08:18:11 EDT Subject: RE: Pre-Visit Planning Caller Name: KAYLIE SALOMON; Caller Number: Zee , M major depressive disorder, recurrent moderate Normal [facility] Ambulatory Visit Summaryon 0 03-05-2024 Ambulatory [...] Oh Wynne This Is Your Medications List [facility] Prescription (TRUE METRIX BLOOD GLUCOSE TEST STRP) [...] 11:20 AM EDT With: Oh Wynne Where: [facility] Invalid Interpretation Code [address] [place] [address]- \.br\ You Need to Complete the Following\.br \ HgbA1c, Blood, Routine collect, 03/05/24, Order for future visit, Lab Collect, Type 2 diabetes mellitus with stage 3b chronic kidney disease [facility] Office/Clini c Noteon 03-05-2024 [facility] Office/Clinic Note Assessment/Plan 1. Annual visit for [...] of clutter to prevent tripping and/or falling. [place] Advance Directives reviewed. Documents remain at home/ and in patient chart. Patient gets assistance with ADL's and Instrumental ADL's, patient has caregivers that come and stay with her for several hours each day and a daily visiting nurse from [facility]. Cognitive screening completed with memory and clock [...] patient has a visiting RN everyday through [facility]. Medicare provides yearly screening for alcohol and [...] a visiting nurse that comes daily from [facility] and follows with Cardiology, Dr. Gil, every 6 months and more as needed. Last office visit 12/11/23 visit summary notes available in chart for PCP review. Per caregiver patient is going to [facility] to get labs done for cardiology today. 3. Severe persistent asthma, uncomplicated (J45.50: Severe persistent asthma, uncomplicated) Patient takes inhalers as directed, uses PRN nebulizer treatments and inhaler when needed. Follows Dr. Castellon, Shelter Director, yearly and as needed. Patient remains on R/A, o2Sat 92% today, respirations 20, non-labored. Will follow up as needed with Dr. Castellon. 4. Chronic respiratory failure with hypoxia (J96.11: Chronic respiratory failure with hypoxia) See #3. 5. 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 Gil every 6 months and as needed. Denies SOB, chest pain or irregular heart rhythm. Manages medications, Eliquis and Metoprolol with office visits. Cardiac-/DASH nutritional education handout reviewed with patient and provided. Tries following healthy dietary intake. Last visit office notes are available in medical (more content not included)... Normal [facility] Comment on above: Result Comment: Elec tronically Signed By: Oh Wynne\.br\Date and Time Signed: 03/05/24 13:34 EDT\.br\Electronically Co-Signed By: Myah Ballard LPN\.br\Date and Time Co-Signed: 03/05/24 12:43 EDT Lab Reportson 03-05-2024 Lab Reports [id number]#1.00 TIFF Normal [facility] Patient Educationon 03-05-20 Patient Education Endocrinology Diabetes Mellitus and Foot Care Foot care is an important part of your health, especially when you have diabetes. Diabetes may cause you to have problems because of poor blood flow (circulation) to your feet and legs, which can cause your skin to: ? 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 ? Break more easily. ? Heal more [...] immediately. Where to find more information ? [place] [employer]: www.diabetes.org ? Association of Diabetes [...] provider. Document Revised: 04/06/2021 Document Reviewed: 04/06/2021 Elsevier Patient Education ? 2022 [employer] Diabetes Mellitus and Nutrition, Adult When you have diabetes, or diabetes mellitus, it is very important to (more content not included)... Normal [facility] Pre-Visit Planningon 024 Pre-Visit Planning - From: [...] feel free to contact me at extension [phone]. Thank you! Elif Cabrera LPN From: Oh Wynne To: Elif Cabrera; Sent: 03/05/2024 08:17:33 EDT Subject: RE: Pre-Visit Planning Caller Name: KAYLIE SALOMON; Caller Number: Zee , M chronic kidney disease stage 3b Normal [facility] RAD - CT Reporton 03-05-2024 RAD - CT Report [id number]#1.0 0TIFF Normal [facility] Screenson 03-05-2024 Screens [id number]#1.0 0TIFF Normal [facility] Pre-Visit Planningon 024 Pre-Visit Planning - From: [...] Mammography: *No Oncology Consult Notes located in [facility]. Based on your medical judgment, can you [...] feel free to contact me at extension [phone]. Thank you! Elif Cabrera LPN Invalid Interpretation Code [facility] Orders Onlyon 02-25-2024 Orders Only [id number] Kaylie Salomon A 1950 Date Provider Department Center 02/25/2024 ELIF ACOSTA. 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 RUDDY [phone] ARRIVAL TIME 1030 HOLD ELIQUIS 02/10 MEDICATIONS TO TAKE DAY OF SURGERY WITH SIP OF WATER ALBUTEROL INHALER BREO ELLIPTA METOPROLOL PROTONIX RUDDY AGREES TO BRING PT TO [facility] FOR LABS ON 02/10 ASKED NELLIE Trevino RN TO SEND LAB ORDERS TO [place] ON 02/05 HOLD VITAMINS AND SUPPLEMENTS 5 DAYS PRIOR TO PROCEDURE HOLD ALL ANTI INFLAMMATORIES ETC:MOTRIN, ADVIL, ALEVE, FOR 5 DAYS PRIOR TO PROCEDURE IF YOU ARE GOING HOME AFTER YOUR SURGERY OR PROCEDURE, FOR YOUR SAFETY, YOUR SURGERY WILL BE CANCELLED IF BOTH OF THE FOLLOWING ARE NOT AVAILABLE: 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 Do not wear perfume, make-up, nail persian, or lotions on the day of your [...] need to make any changes, please call [phone]. Notify your surgeon if you develop any illness such as a cold, cough, fever, sore throat or vomiting between now and your surgery. Thank you for entrusting us with your care. [facility] Surgical Services Team Normal [facility] Orders Onlyon 02-07-2024 Orders Only [id number] TishpérezKaylie Caballero 1950 F Date Provider Department Center 02/07/2024 Danica-FILIPE ANSARI [facility] [place] HeartVAS Family History Problem Relation Age of Onset Heart failure Mother Family Status - Relation Status Age at Mother Normal [facility] Home Health Recordson 2023 Home Health Records [id number]#1.0 0TIFF [facility] Ambulatory Visit Summaryon 0 01-09-2024 Ambulatory Visit Summary TISHJEFFTATUM HARVEYEEN :1950 Visit Date:01/09/2024 Ambulatory Visit Instructions Your Diagnosis Tremor of both hands Drooling Your Care Team Attending Physician - Oh Wynne Primary Care Physician - Oh Wynne This Is Your Medications List [facility] Prescription (TRUE METRIX BLOOD GLUCOSE TEST STRP) [...] Follow-Up Appointments 2023 11:00 AM EDT Where: [facility] Family Medicine Mckenzie Normal [facility] Family Medicine Office/Clini c Noteon 01-09-2024 Family [...] caregiver states her psychiatrist from [facility] started her on ability due [...] (chronic obstructive pulmonary disease) Coronary arteriosclerosis in [place] artery Diabetes mellitus type II, non insulin [...] 50 mcg, (more content not included)... Normal [facility] Comment on above: Result Comment: Elec tronically Signed By: Oh Wynne.jai\Date and Time Signed: 01/09/24 12:53 EDT BASIC METABOLIC PANELon 04-0 Anion gap [Moles/Vol] 12 mmol/L Normal 7-20 [facility] Comment on above: Performed By: #### L AB15 #### [facility] ([facility]) [address] [place] [address] Calcium [Mass/Vol] 9.4 mg/dL Normal 8.6-10.3 [facility] Comment on above: Performed By: #### L AB15 #### [facility] ([facility]) [address] [place] [address] Chloride [Moles/Vol] 98 mmol/L Normal 98-107 [facility] Comment on above: Performed By: #### L AB15 #### [facility] ([facility]) [address] [place] [address] CO2 [Moles/Vol] 34 mmol/L High 21-31 [facility] Comment on above: Performed By: #### L AB15 #### [facility] ([facility]) [address] [place] [address] Creatinine [Mass/Vol] 1.63 mg/dL High 0.60-1.20 [facility] Comment on above: Performed By: #### L AB15 #### [facility] ([facility]) [address] [place] [address] GLOMERULAR FILTRATION RATE ML/MIN/1.73 SQ M.PREDICTED 32.5 mL/min/1.73m*2 Low >60.0 [facility] Comment on above: Result Comment: [facility]???s estimated glomerular filtration rate (eGFR) will [...] individuals. Performed By: #### L AB15 #### [facility] ([facility]) [address] [place] [address] Glucose [Mass/Vol] 84 mg/dL Normal 70-100 [facility] Comment on above: Performed By: #### L AB15 #### [facility] ([facility]) [address] [place] [address] Potassium [Moles/Vol] 4.2 mmol/L Normal 3.5-5.1 [facility] Comment on above: Performed By: #### L AB15 #### [facility] ([facility]) [address] [place] [address] Sodium [Moles/Vol] 140 mmol/L Normal 136-145 [facility] Comment on above: Performed By: #### L AB15 #### [facility] ([facility]) [address] [place] [address] Urea nitrogen [Mass/Vol] 49 mg/dL High 7-25 [facility] Comment on above: Performed By: #### L AB15 #### [facility] ([facility]) [address] [place] [address] UREA NITROGEN/CREATININE (MASS RATIO) IN SER/PLAS 30.1 Normal [facility] Comment on above: Performed By: #### L AB15 #### [facility] ([facility]) [address] [place] [address] CBCon 01-07-2024 Erythrocyte distribution width (RBC) [Ratio] 15.9 % High 11.5-15.0 [facility] Comment on above: Performed By: #### L [id number] ####[facility] ([facility])[address] [place] [address] ERYTHROCYTE MEAN CORPUSCULAR HEMOGLOBIN CONCENTRATION (G/DL) BY AUTOMATED 30.8 g/dL Low 32.0-35.0 [facility] Comment on above: Performed By: #### L [id number] ####[facility] ([facility])[address] [place] [address] Hematocrit (Bld) [Volume fraction] 35.4 % Low 36.0-48.0 [facility] Comment on above: Performed By: #### L [id number] ####[facility] ([facility])[address] [place] [address] Hemoglobin (Bld) [Mass/Vol] 10.9 g/dL Low 12.0-15.0 [facility] Comment on above: Performed By: #### L [id number] ####[facility] ([facility])[address] [address] MCH (RBC) [Entitic mass] 29.6 pg Normal 27.0-33.0 [facility] Comment on above: Performed By: #### L [id number] ####[facility] ([facility])[address] [address] MCV (RBC) [Entitic vol] 96.2 fL Normal 82.0-98.0 [facility] Comment on above: Performed By: #### L [id number] ####[facility] ([facility])[address] [place] [address] PLATELETS (10*3/UL) IN BLOOD AUTOMATED COUNT 244 10*3/uL Normal 150-400 [facility] Comment on above: Performed By: #### L [id number] ####[facility] ([facility])[address] [address] RBC (Bld) [#/Vol] 3.68 10*6/uL Low 3.80-5.00 [facility] Comment on above: Performed By: #### L [id number] ####[facility] ([facility])[address] [place] [address] WBC (Bld) [#/Vol] 7.68 10*3/uL Normal 4.00-10.60 [facility] Comment on above: Performed By: #### L [id number] ####[facility] ([facility])[address] [place] [address] CTA CHEST W IV CONTRASTon CTA CHEST [...] Steven Solomon. Not Joyce Invalid Interpretation Code [facility] Comment on above: Order Comment: Doroteo keith schedule prior to February 12 Labon 01-07-2024 Lab [id number] TishpérezKaylie A 1950 F Date Provider Department Center 01/07/2024 2245-[facility] OPD LAB RESOURCE [facility] OPD NC Medical C Family History Problem Relation Age of Onset Heart failure Mother Family Status - Relation Status Age at Mother Normal [facility] Orders Onlyon 01-07-2024 Orders Only [id number] Hepérez,Kaylie A 1950 Date Provider Department Center 01/07/2024 241-BRIAN GIL [facility] AFUA Duncan Family History Problem Relation Age of Onset Heart failure Mother Family Status - Relation Status Age at Mother Normal [facility] Orders Only [id number] HejeffndKaylie A 1950 Date Provider Department Center 01/07/2024 120-ELIF ESPINOZA [facility] C[facility] Nuris [place]. Family History Problem Relation Age of Onset Heart failure Mother Family Status - Relation Status Age at Mother Normal [facility] Prep for Procedureon 024 Prep for Procedure [id number] HejeffndKaylie A 1950 F Date Provider Department Center 01/03/2024 1987-FILIPE ANSARI [facility] [place] HeartVAS Family History Problem Relation Age of Onset Heart failure Mother Family Status - Relation Status Age at Mother Normal [facility] Consultation Noteon 12-13-19 24 Consultation Note [id number] .00TIFF [facility] Orders Onlyon 12-13-2023 Orders Only [id number] Kaylie Salomon 1950 Provider Department Center 12/13/2023 ELIF ACOSTA AFUA Khan Family History Problem Relation Age of Onset Heart failure Mother Family Status - Relation Status Age at Mother Normal [facility] Office Visiton 12-11-2023 Follow-up visit [id number] Kaylie Salomon 1950 Provider Department Center 12/11/2023 ELIF ACOSTA AFUA Hardin Family History Problem Relation Age of Onset Heart failure Mother Family Status - Relation Status Age at Mother Level of Service:75475 [place] OFFICE/OUTPATIENT ESTABLISHED MOD MDM 30 MIN [facility] Plan of Care - PT/OT/Speecho n 12-05-2023 Plan of Care - PT/OT/Speech [id number] 0TIFF [facility] Telephoneon 11-29-2023 Telephone [id number] Kaylie Salomon 1950 Provider Department [place] 11/29/2023 BRIAN IDXON AFUA Garcia [facility] Family History Problem Relation Age of Onset Heart failure Mother Family Status - Relation Status Age at Mother Reason for Visit and Comments: Med Refill [[id number]] [facility] Physician Referralon 024 Physician Referral [id number] 0TIFF [facility] Home Health Recordson 2023 Home Health Records [id number] 0TIFF [facility] Cardiovascular Reporton Cardiovascular Report [id number]#1.0 0TIFF [facility] Lab Reportson 11-01-2023 Lab Reports [id number]#1.0 0TIFF Normal [facility] 36on 10-31-2023 36 I called Miguelina and told her thyroid labs abnormal. I confirmed PCP. The PCP office is currently closed and unable to get fax number. I will get sent next Saturday when I am back in the office. Normal [facility] BASIC METABOLIC PANELon 02- Anion gap [Moles/Vol] 9 mmol/L Normal 7-20 [facility] Comment on above: Performed By: #### L AB15 #### [facility] ([facility]) [address] [place] [address] Calcium [Mass/Vol] 9.4 mg/dL Normal 8.6-10.3 [facility] Comment on above: Performed By: #### L AB15 #### [facility] ([facility]) [address] [place] [address] Chloride [Moles/Vol] 101 mmol/L Normal 98-107 [facility] Comment on above: Performed By: #### L AB15 #### [facility] ([facility]) [address] [place] [address] CO2 [Moles/Vol] 35 mmol/L High 21-31 [facility] Comment on above: Performed By: #### L AB15 #### [facility] ([facility]) [address] [place] [address] Creatinine [Mass/Vol] 1.25 mg/dL High 0.60-1.20 [facility] Comment on above: Performed By: #### L AB15 #### [facility] ([facility]) [address] [place] [address] GLOMERULAR FILTRATION RATE ML/MIN/1.73 SQ M.PREDICTED 44.9 mL/min/1.73m*2 Low >60.0 [facility] Comment on above: Result Comment: [facility]???s estimated glomerular filtration rate (eGFR) will [...] individuals. Performed By: #### L AB15 #### [facility] ([facility]) [address] [facility] [place] [address] Glucose [Mass/Vol] 125 mg/dL High 70-100 [facility] Comment on above: Performed By: #### L AB15 #### [facility] ([facility]) [address] [facility] [place] [address] Potassium [Moles/Vol] 4.2 mmol/L Normal 3.5-5.1 [facility] Comment on above: Performed By: #### L AB15 #### [facility] ([facility]) [address] [facility] [place] [address] Sodium [Moles/Vol] 141 mmol/L Normal 136-145 [facility] Comment on above: Performed By: #### L AB15 #### [facility] ([facility]) [address] [facility] [place] [address] Urea nitrogen [Mass/Vol] 42 mg/dL High 7-25 [facility] Comment on above: Performed By: #### L AB15 #### [facility] ([facility]) [address] [facility] [place] [address] UREA NITROGEN/CREATININE (MASS RATIO) IN SER/PLAS 33.6 Normal [facility] Comment on above: Performed By: #### L AB15 #### [facility] ([facility]) [address] [facility] [place] [address] HPon 10-31-2023 [facility] Electrophysiology Consult Note Reason for visit: [...] seafood Sulfa (Sulfonamide Antibiotics) Other and Unknown Ojdhwxaw-Cwibcphavo-Yo lymyxin Rash Penicillins Rash Weight: 122kg Visit [...] EVERY DAY (more content not included)... Normal [facility] MAGNESIUMon 10-31-2023 Magnesium [Mass/Vol] 2.0 mg/dL Normal 1.9-2.7 [facility] Comment on above: Performed By: #### L AB103 ####[facility] ([facility])[address] [place] [address] NURSNOTEon 10-31-2023 NURSNOTE RN educated pt and caregiver on discharge instructions. RN encouraged pt to voice any questions or concerns. Pt verbalizes no questions or concerns at this time. Pt was wheeled off unit with all belongings. Normal [facility] T4, FREEon 10-31-2023 THYROXINE (T4) FREE (NG/DL) IN SER/PLAS 0.98 ng/dL Normal 0.71-1.85 [facility] Comment on above: Performed By: #### L AB127 #### [facility] ([facility]) [address] [place] [address] TSH3 REFLEX TO FT4on 024 THYROTROPIN (MIU/L) IN SER/PLAS BY DETECTION LIMIT <= 0.05 MIU/L 6.15 mIU/L High 0.34-5.60 [facility] Comment on above: Performed By: #### L [id number] #### [facility] ([facility]) [address] [place] [address] CBC AND AUTO DIFFon 10-24-19 24 ABSOLUTE BASOPHIL 0.1 X10E9/L Normal 0.0-0.2 [facility] Comment on above: Performed By: #### 3 024-7, CBCA, TSHR, #### [facility] ([id number]) [address] [place] [address] ABSOLUTE NEUTROPHIL 6.1 X10E9/L Normal 1.5-6.6 [facility] Comment on above: Performed By: #### 3 024-7, CBCA, TSHR, #### [facility] ([id number]) [address] [address] [place] [address] Basophils/100 WBC (Bld) 0.7 % Normal [facility] Comment on above: Performed By: #### 3 024-7, CBCA, TSHR, #### [facility] ([id number]) [address] [address] [place] [address] Eosinophils (Bld) [#/Vol] 0.0 10*3/uL Normal 0.0-0.4 [facility] Comment on above: Performed By: #### 3 024-7, CBCA, TSHR, #### [facility] ([id number]) [address] [address] [place] [address] Eosinophils/100 WBC (Bld) 0.0 % Normal [facility] Comment on above: Performed By: #### 3 024-7, CBCA, TSHR, #### [facility] ([id number]) [address] [address] [place] [address] Erythrocyte distribution width (RBC) [Ratio] 15.9 % High 11.5-15.0 [facility] Comment on above: Performed By: #### 3 024-7, CBCA, TSHR, #### [facility] ([id number]) [address], [address] [place] [address] Hematocrit (Bld) [Volume fraction] 37.3 % Normal 35-47 [facility] Comment on above: Performed By: #### 3 024-7, CBCA, TSHR, #### [facility] ([id number]) [address], [address] [place] [address] Hemoglobin (Bld) [Mass/Vol] 12.1 g/dL Normal 11.7-15.5 [facility] Comment on above: Performed By: #### 3 024-7, CBCA, TSHR, #### [facility] ([id number]) [address], [facility] [address] [place] [address] Lymphocytes (Bld) [#/Vol] 1.1 10*3/uL Normal 1.0-3.5 [facility] Comment on above: Performed By: #### 3 024-7, CBCA, TSHR, #### [facility] ([id number]) [address], [address] [place] [address] Lymphocytes/100 WBC (Bld) 13.6 % Normal [facility] Comment on above: Performed By: #### 3 024-7, CBCA, TSHR, 42226-3 #### [facility] ([id number]) [address], [address] [place] [address] MCH (RBC) [Entitic mass] 28.7 pg Normal 27-34 [facility] Comment on above: Performed By: #### 3 024-7, CBCA, TSHR, #### [facility] ([id number]) [address], [address] [place] [address] MCHC (RBC) [Mass/Vol] 32.5 g/dL Normal 32-36 [facility] Comment on above: Performed By: #### 3 024-7, CBCA, TSHR, #### [facility] ([id number]) [address], [address] [place] [address] MCV (RBC) [Entitic vol] 88 fL Normal 80-100 [facility] Comment on above: Performed By: #### 3 024-7, CBCA, TSHR, #### [facility] ([id number]) [address], [address] [place] [address] Monocytes (Bld) [#/Vol] 0.5 10*3/uL Normal 0-0.9 [facility] Comment on above: Performed By: #### 3 024-7, CBCA, TSHR, #### [facility] ([id number]) [address], [address] [place] [address] Monocytes/100 WBC (Bld) 7.0 % Normal [facility] Comment on above: Performed By: #### 3 024-7, CBCA, TSHR, #### [facility] ([id number]) [address], [address] [place] [address] Neutrophils/100 WBC (Bld) 78.7 % Normal [facility] Comment on above: Performed By: #### 3 024-7, CBCA, TSHR, #### [facility] ([id number]) [address], [address] [place] [address] Platelet mean volume (Bld) [Entitic vol] 8.6 fL Normal 7-12 [facility] Comment on above: Performed By: #### 3 024-7, CBCA, TSHR, #### [facility] ([id number]) [address], [address] [place] [address] Platelets (Bld) [#/Vol] 286 10*3/uL Normal 150-450 [facility] Comment on above: Performed By: #### 3 024-7, CBCA, TSHR, #### [facility] ([id number]) [address], [address] [place] [address] RBC COUNT 4.23 X10E12/L Normal 3.80-5.20 [facility] Comment on above: Performed By: #### 3 024-7, CBCA, TSHR, 41737-8 #### [facility] ([id number]) [address], [address] [place] [address] WBC (Bld) [#/Vol] 7.8 10*3/uL Normal 4.0-11.0 [facility] Comment on above: Performed By: #### 3 024-7, CBCA, TSHR, 75766-2 #### [facility] ([id number]) [address], [address] [place] [address] FREE T4on 10-24-2023 Free T4 [Mass/Vol] 1.11 ng/dL Normal 0.61-1.60 [facility] Comment on above: Performed By: #### 3 024-7, CBCA, TSHR, 35813-1 #### [facility] ([id number]) [address], [address] [place] [address] MAGNESIUMon 10-24-2023 Magnesium [Mass/Vol] 2.0 mg/dL Normal 1.8-2.6 [facility] Comment on above: Performed By: #### 3 024-7, CBCA, TSHR, 75559-5 #### [facility] ([id number]) [address], [address] [place] [address] TSH WITH REFLEXon 10-24-2023 TSH 5.36 uIU/mL High 0.49-4.67 [facility] Comment on above: Performed By: #### 3 024-7, CBCA, TSHR, 27359-7 #### [facility] ([id number]) [address], [address] [place] [address] Orders Onlyon 10-23-2023 Orders Only [id number] Kaylie Salomon 1950 F Date Provider Department Center 10/23/2023 [facility] Family History Problem Relation Age of Onset Heart failure Mother Family Status - Relation Status Age at Mother Normal [facility] Office Visiton 09-17-2023 Follow-up visit [id number] Kaylie Salomon A 1950 F Date Provider Department Center 09/17/2023 BRIAN DIXON [facility] Family History Problem Relation Age of Onset Heart failure Mother Family Status - Relation Status Age at Mother Level of Service:10306 [place] OFFICE/OUTPATIENT NEW MODERATE MDM 45 MINUTES Normal [facility] Consultation Noteon 09-13-20 Consultation Note [id number] 20 [id number]#1.0 0TIFF Normal [facility] CBC W Auto Differential pane l (Bld)on 09-12-2023 Basophils (Bld) [#/Vol] 10*3/uL Normal <0.11 [facility] Comment on above: Order Comment: Speci men Type: BLOOD SPECIMEN Ordering Facility: [facility] Address: [address] [place] [address] Performed By: #### 5 7021-8 #### [facility] CLIA [id number] [address] [place] [address] Basophils/100 WBC (Bld) 0.2 % Normal [facility] Comment on above: Order Comment: Speci men Type: BLOOD SPECIMEN Ordering Facility: [facility] Address: [address] [place] [address] Performed By: #### 5 7021-8 #### [facility] CLIA [id number] [address] [place] [address] Differential cell count method Nom (Bld) Auto Normal [facility] Comment on above: Order Comment: Speci men Type: BLOOD SPECIMEN Ordering Facility: [facility] Address: [address] [place] [address] Performed By: #### 5 7021-8 #### [facility] CLIA [id number] [address] [place] [address] Eosinophils (Bld) [#/Vol] 10*3/uL Normal <0.46 [facility] Comment on above: Order Comment: Speci men Type: BLOOD SPECIMEN Ordering Facility: [facility] Address: [address] [place] [address] Performed By: #### 5 7021-8 #### [facility] CLIA [id number] [address] [place] [address] Eosinophils/100 WBC (Bld) 0.0 % Normal [facility] Comment on above: Order Comment: Speci men Type: BLOOD SPECIMEN Ordering Facility: [facility] Address: [address] [place] [address] Performed By: #### 5 7021-8 #### [facility] CLIA [id number] [address] [place] [address] Erythrocyte distribution width (RBC) [Ratio] 14.5 % Normal 11.5-15.0 [facility] Comment on above: Order Comment: Speci men Type: BLOOD SPECIMEN Ordering Facility: [facility] Address: [address] [place] [address] Performed By: #### 5 7021-8 #### [facility] CLIA [id number] [address] [place] [address] Hematocrit (Bld) [Volume fraction] 38.7 % Normal 36.0-46.0 [facility] Comment on above: Order Comment: Speci men Type: BLOOD SPECIMEN Ordering Facility: [facility] Address: [address] [place] [address] Performed By: #### 5 7021-8 #### [facility] CLIA [id number] [address] [place] [address] Hemoglobin (Bld) [Mass/Vol] 11.7 g/dL Normal 11.5-15.5 [facility] Comment on above: Order Comment: Speci men Type: BLOOD SPECIMEN Ordering Facility: [facility] Address: [address] [place] [address] Performed By: #### 5 7021-8 #### [facility] CLIA [id number] [address] [place] [address] Immature granulocytes (Bld) [#/Vol] 0.03 10*3/uL Normal <0.10 [facility] Comment on above: Order Comment: Speci men Type: BLOOD SPECIMEN Ordering Facility: [facility] Address: [address] [place] [address] Performed By: #### 5 7021-8 #### [facility] CLIA [id number] [address] [place] [address] Immature granulocytes/100 WBC (Bld) 0.3 % Normal [facility] Comment on above: Order Comment: Speci men Type: BLOOD SPECIMEN Ordering Facility: [facility] Address: [address] [place] [address] Performed By: #### 5 7021-8 #### [facility] CLIA [id number] [address] [place] [address] Lymphocytes (Bld) [#/Vol] 1.10 10*3/uL Normal 1.00-4.00 [facility] Comment on above: Order Comment: Speci men Type: BLOOD SPECIMEN Ordering Facility: [facility] Address: [address] [place] [address] Performed By: #### 5 7021-8 #### [facility] CLIA [id number] [address] [place] [address] Lymphocytes/100 WBC (Bld) 11.2 % Normal [facility] Comment on above: Order Comment: Speci men Type: BLOOD SPECIMEN Ordering Facility: [facility] Address: [address] [place] [address] Performed By: #### 5 7021-8 #### [facility] CLIA [id number] [address] [place] [address] MCH (RBC) [Entitic mass] 27.5 pg Normal 26.0-34.0 [facility] Comment on above: Order Comment: Speci men Type: BLOOD SPECIMEN Ordering Facility: [facility] Address: [address] [place] [address] Performed By: #### 5 7021-8 #### [facility] CLIA [id number] [address] [place] [address] MCHC (RBC) [Mass/Vol] 30.2 g/dL Low 30.5-36.0 [facility] Comment on above: Order Comment: Speci men Type: BLOOD SPECIMEN Ordering Facility: [facility] Address: [address] [place] [address] Performed By: #### 5 7021-8 #### [facility] CLIA [id number] [address] [place] [address] MCV (RBC) [Entitic vol] 91.1 fL Normal 80.0-100.0 [facility] Comment on above: Order Comment: Speci men Type: BLOOD SPECIMEN Ordering Facility: [facility] Address: [address] [place] [address] Performed By: #### 5 7021-8 #### [facility] CLIA [id number] [address] [place] [address] Monocytes (Bld) [#/Vol] 0.92 10*3/uL High <0.87 [facility] Comment on above: Order Comment: Speci men Type: BLOOD SPECIMEN Ordering Facility: [facility] Address: [address] [place] [address] Performed By: #### 5 7021-8 #### [facility] CLIA [id number] [address] [place] [address]47 Monocytes/100 WBC (Bld) 9.4 % Normal [facility] Comment on above: Order Comment: Speci men Type: BLOOD SPECIMEN Ordering Facility: [facility] Address: [address] [place] [address] Performed By: #### 5 7021-8 #### [facility] CLIA [id number] [address] [place] [address] Neutrophils (Bld) [#/Vol] 7.74 10*3/uL High 1.45-7.50 [facility] Comment on above: Order Comment: Speci men Type: BLOOD SPECIMEN Ordering Facility: [facility] Address: [address] [place] [address] Performed By: #### 5 7021-8 #### [facility] CLIA [id number] [address] [place] [address] Neutrophils/100 WBC (Bld) 78.9 % Normal [facility] Comment on above: Order Comment: Speci men Type: BLOOD SPECIMEN Ordering Facility: [facility] Address: [address] [place] [address] Performed By: #### 5 7021-8 #### [facility] CLIA [id number] [address] [place] [address] Nucleated RBC (Bld) [#/Vol] 10*3/uL Normal <0.01 [facility] Comment on above: Order Comment: Speci men Type: BLOOD SPECIMEN Ordering Facility: [facility] Address: [address] [place] [address] Performed By: #### 5 7021-8 #### [facility] CLIA [id number] [address] [place] [address] Nucleated RBC/100 WBC (Bld) [Ratio] 0.0 /100 WBC Normal [facility] Comment on above: Order Comment: Speci men Type: BLOOD SPECIMEN Ordering Facility: [facility] Address: [address] [place] [address] Performed By: #### 5 7021-8 #### [facility] CLIA [id number] [address] [place] [address] Platelet mean volume (Bld) [Entitic vol] 9.4 fL Normal 9.0-12.7 [facility] Comment on above: Order Comment: Speci men Type: BLOOD SPECIMEN Ordering Facility: [facility] Address: [address] [place] [address] Performed By: #### 5 7021-8 #### [facility] CLIA [id number] [address] [place] [address] Platelets (Bld) [#/Vol] 279 10*3/uL Normal 150-400 [facility] Comment on above: Order Comment: Speci men Type: BLOOD SPECIMEN Ordering Facility: [facility] Address: [address] [place] [address] Performed By: #### 5 7021-8 #### [facility] CLIA [id number] [address] [place] [address] RBC (Bld) [#/Vol] 4.25 10*6/uL Normal 3.90-5.20 [facility] Comment on above: Order Comment: Speci men Type: BLOOD SPECIMEN Ordering Facility: [facility] Address: [address] [place] [address] Performed By: #### 5 7021-8 #### [facility] CLIA [id number] [address] [place] [address] WBC (Bld) [#/Vol] 9.81 10*3/uL Normal 3.70-11.00 [facility] Comment on above: Order Comment: Speci men Type: BLOOD SPECIMEN Ordering Facility: [facility] Address: [address] [place] [address] Performed By: #### 5 7021-8 #### [facility] CLIA [id number] [address] [place] [address] CNOVSPon 09-12-2023 CNOVSP Visit (SP) Office ([facility]) KAYLIE SALOMON ([id number]) 1950 F Date Time Provider Department 09/12/23 [...] on 03/14/2023) ALLERGIES: Clarithromycin, Conjugated Estrogens, Neosporin [Etibkzgc-Jpffoummaw-H olymyxin], Paclitaxel, Peanut, Penicillins, and Sulfa (Sulfonamide Antibiotics) PAST MEDICAL HISTORY: PAST MEDICAL HISTORY Diagnosis Date AF (atrial fibrillation) ([facility]) Asthma Breast cancer (HCC) 02/[address] [...] Skin: Ne (more content not included)... [facility] [place] Tele[facility] ([place]) KAYLIE SALOMON ([id number]) 1950 F Date Time Provider Department 09/12/23 CARIN RAMOS During your visit today, we recorded the following information about you: Carin Ramos RN 09/12/2023 1:42 PM Signed BRM/HM: Please sign pended order Orders sent to [facility] PH: [phone] Will notifagustin Monsalve, youth care worker, once signed DILCIA Velasco Natalie, RN 09/12/2023 2:59 PM Signed Ordered faxed to [facility] Ramos RN Allergies As of Date: 09/12/2023 Noted Allergy Reaction CLARITHROMYCIN 01/27/2010 16 - Unknown CONJUGATED ESTROGENS 01/27/2010 16 - Unknown NEOSPORIN (OAHHDCZA-LCYWSHZTBY-U O*05/06/2019 2 - Rash PACLITAXEL 08/24/2019 14 [...] right breast [Z90.11] Order(s):BREAST PROSTHESIS, MASTECTOMY BRA [[id number]] Order #: [id number] Prescriptions as of 09/12/2023 - BREO ELLIPTA [...] Status:Closed by CARIN RAMOS on 09/12/23 Normal [facility] Cancer Ag27-29 SerPl-aCncon 09-12-2023 Cancer Ag 27-29 Qn 31.6 [arb'U]/mL Normal <38.6 C [facility] Comment on above: Order Comment: Speci men Type: BLOOD SPECIMEN Ordering Facility: [facility] Address: [place] [address] Result Comment: The CA27.29 test was performed using the Siemens [employer] XP chemiluminometric immunoassay method. Results obtained with different assay methods or kits cannot be used interchangeably. Performed By: #### 5 7021-8 #### [facility] CLIA [id number] [address] [place] [address] Comprehensive metabolic 2000 panelon 09-12-2023 Albumin [Mass/Vol] 4.4 g/dL Normal 3.9-4.9 [facility] Comment on above: Order Comment: Speci men Type: BLOOD SPECIMEN Ordering Facility: [facility] Address: [address] [place] [address] Performed By: #### 5 7021-8 #### [facility] CLIA [id number] [address] [place] [address]63 ALP [Catalytic activity/Vol] 87 U/L Normal 34-123 [facility] Comment on above: Order Comment: Speci men Type: BLOOD SPECIMEN Ordering Facility: [facility] Address: [address] [place] [address] Performed By: #### 5 7021-8 #### [facility] CLIA [id number] [address] [place] [address]60 ALT [Catalytic activity/Vol] 11 U/L Normal 7-38 [facility] Comment on above: Order Comment: Speci men Type: BLOOD SPECIMEN Ordering Facility: [facility] Address: [address] [place] [address] Performed By: #### 5 7021-8 #### [facility] CLIA [id number] [address] [place] [address]87 Anion gap [Moles/Vol] 10 mmol/L Normal 9-18 [facility] Comment on above: Order Comment: Speci men Type: BLOOD SPECIMEN Ordering Facility: [facility] Address: [address] [place] [address] Performed By: #### 5 7021-8 #### [facility] CLIA [id number] [address] [place] [address] 23548 AST [Catalytic activity/Vol] 14 U/L Normal 13-35 [facility] Comment on above: Order Comment: Speci men Type: BLOOD SPECIMEN Ordering Facility: [facility] Address: [address] [place] [address] Performed By: #### 5 7021-8 #### [facility] CLIA [id number] [address] [place] [address]41 Bilirubin [Mass/Vol] 0.6 mg/dL Normal 0.2-1.3 [facility] Comment on above: Order Comment: Speci men Type: BLOOD SPECIMEN Ordering Facility: [facility] Address: [address] [place] [address] Performed By: #### 5 7021-8 #### [facility] CLIA [id number] [address] [place] [address]90 Calcium [Mass/Vol] 9.7 mg/dL Normal 8.5-10.2 [facility] Comment on above: Order Comment: Speci men Type: BLOOD SPECIMEN Ordering Facility: [facility] Address: [address] [place] [address] Performed By: #### 5 7021-8 #### [facility] CLIA [id number] [address] [place] [address]274 Chloride [Moles/Vol] 96 mmol/L Low 97-105 [facility] Comment on above: Order Comment: Speci men Type: BLOOD SPECIMEN Ordering Facility: [facility] Address: [address] [place] [address] Performed By: #### 5 7021-8 #### [facility] CLIA [id number] [address] [place] [address] 17221 CO2 [Moles/Vol] 31 mmol/L High 22-30 [facility] Comment on above: Order Comment: Speci men Type: BLOOD SPECIMEN Ordering Facility: [facility] Address: [address] [place] [address] Performed By: #### 5 7021-8 #### [facility] CLIA [id number] [address] [place] [address]160 Creatinine [Mass/Vol] 1.10 mg/dL High 0.58-0.96 [facility] Comment on above: Order Comment: Jennifer stahl Type: BLOOD SPECIMEN Ordering Facility: [facility] Address: [address] [place] [id number] Performed By: #### 5 7021-8 #### [facility] CLIA [id number] [address] [place] [address]347 Creatinine and Glomerular filtration rate.predicted panel (S/P/Bld) 53 mL/min/1.73m??? Low >=60 [facility] Comment on above: Order Comment: Jennifer stahl Type: BLOOD SPECIMEN Ordering Facility: [facility] Address: [address] [place] [address] Result Comment: Violette mated Glomerular Filtration Rate [...] GFR. Performed By: #### 5 7021-8 #### [facility] CLIA [id number] [address] [place] [address]854 Glucose [Mass/Vol] 115 mg/dL High 74-99 [facility] Comment on above: Order Comment: Jennifer stahl Type: BLOOD SPECIMEN Ordering Facility: [facility] Address: [address] [place] [address] Result Comment: The [place] [employer] (ADA) provides guidance for cutoff [...] Standards of Medical Care in Diabetes 2016, [place] [employer]. Diabetes Care. 2016.39(Suppl 1). Performed By: #### 5 7021-8 #### [facility] CLIA [id number] [address] [place] [address] 58543 Potassium [Moles/Vol] 4.4 mmol/L Normal 3.7-5.1 [facility] Comment on above: Order Comment: Speci men Type: BLOOD SPECIMEN Ordering Facility: [facility] Address: [address] [place] [address] Performed By: #### 5 7021-8 #### [facility] CLIA [id number] [address] [place] [address] 26470 Protein [Mass/Vol] 7.4 g/dL Normal 6.3-8.0 [facility] Comment on above: Order Comment: Speci men Type: BLOOD SPECIMEN Ordering Facility: [facility] Address: [address] [place] [address] Performed By: #### 5 7021-8 #### [facility] CLIA [id number] [address] [place] [address] 98548 Sodium [Moles/Vol] 137 mmol/L Normal 136-144 [facility] Comment on above: Order Comment: Speci men Type: BLOOD SPECIMEN Ordering Facility: [facility] Address: [address] [address] Performed By: #### 5 7021-8 #### [facility] CLIA [id number] [address] [place] [address] 48112 Urea nitrogen [Mass/Vol] 36 mg/dL High 7-21 [facility] Comment on above: Order Comment: Speci men Type: BLOOD SPECIMEN Ordering Facility: [facility] Address: [address] [place] [address] Performed By: #### 5 7021-8 #### [facility] CLIA [id number] [address] [place] [address] 40969 Home Health Records 2022 Home Health Records [id number]#1.0 0TIFF [facility] Home Health Recordson 2022 Home Health Records [id number]#1.0 0TIFF [facility] Office Visiton 08-29-2023 Follow-up visit [id number] Kaylie Salomon 1950 F Date Provider Department Center 08/29/2023 [id number]-DWDIAHPZIMELISSA TORRES AFUA Hardin Family History Problem Relation Age of Onset Heart failure Mother Family Status - Relation Status Age at Mother Level of Service:74638 IA OFFICE/OUTPATIENT ESTABLISHED MOD MDM 30-39 MIN Normal [facility] Office Visiton 08-19-2023 Follow-up visit [id number] Kaylie Salomon A 1950 F Date Provider Department Center 08/19/2023 Dwight-PIETRO ALDRIDGE AFUA [facility] Family History Problem Relation Age of Onset Heart failure Mother Family Status - Relation Status Age at Mother Level of Service:43423 IA OFFICE/OUTPATIENT ESTABLISHED MOD MDM 30-39 MIN Normal [facility] RAD - CT Reporton 08-14-2023 RAD - CT Report [id number]#1.0 0TIFF [facility] Home Health Recordson 2022 Home Health Records [id number]#1.0 0TIFF [facility] Outside Mammographyon 2022 Outside Mammography [id number]#1.0 0CD:127 [facility] Home Health Recordson 2022 Home Health Records [id number]#1.00 CD:127 [facility] Home Health Recordson 2022 Home Health Records [id number]#1.0 0CD:127 [facility] CNPNon 06-07-2023 CNPN Telephone (HEMASA) KAYLIE SALOMON ([id number]) 1950 F Date Time Provider Department 06/07/23 [...] pending order. PSS: Pt needs scheduled at [facility]. Thanks! DILCIA Carroll Natalie, RN 06/10/2023 1:00 PM Signed Spoke to primary care nurse practitioner. She has not heard from anyone regarding scheduling of Mammogram at [place]. Order faxed to [facility] scheduling. She is aware to call if she has not heard from them in the next week. She denies further needs at this time Carin Ramos RN Allergies As of Date: 06/07/2023 Noted Allergy Reaction CLARITHROMYCIN 01/27/2010 16 - Unknown CONJUGATED ESTROGENS 01/27/2010 16 - Unknown NEOSPORIN (LVXBYQWT-[id number]-O O*05/06/2019 2 - Rash PACLITAXEL 08/24/2019 14 [...] negative (HCC) [C50.811, Z17.1] Order(s):[facility] LEFT [[id number]] Order #: [id number] FUTURE Prescriptions as of 06/10/2023 - potassium [...] Status:Closed by CARIN RAMOS on 06/10/23 Normal [facility] Health Recordson 2022 [facility] Records [id number]#1.0 0CD:127 Normal [facility] 04-10-2023 CNPN Telephone (HEMTSA) KAYLIE SALOMON ([id number]) 1950 F Date Time Provider Department 04/10/23 CARIN RAMOS HEMTSA During your visit today, we recorded the following information about you: Carin Ramos RN 04/10/2023 10:45 AM Signed Requested labs to PCP for appt. Faxed to [phone] Carin Ramos RN Allergies As of Date: 04/10/2023 Noted Allergy Reaction CLARITHROMYCIN 01/27/2010 16 - Unknown CONJUGATED ESTROGENS 01/27/2010 16 - Unknown NEOSPORIN (XFLGQURM-AGDRLTOSPF-O O*05/06/2019 2 - Rash PACLITAXEL 08/24/2019 14 [...] Encounter Status:Closed by CARIN RAMOS on 04/10/23 [facility]AYL[facility] SALOM[facility] ([id number]) 1950 F Date Time Provider Department 04/04/23 [...] CONJUGATED ESTROGENS 01/27/2010 16 - Unknown NEOSPORIN (SZWQDDKT-GCBDQXQBEE-W O*05/06/2019 2 - Rash PACLITAXEL 08/24/2019 14 [...] Status:Closed by ANGELINA BOO on 04/04/23 Normal [facility] CBC W Auto Differential pane l (Bld)on 03-14-2023 Basophils (Bld) [#/Vol] 10*3/uL Normal <0.11 [facility] Comment on above: Order Comment: Speci men Type: BLOOD SPECIMEN Ordering Facility: [facility] Address: [address] [address] Performed By: #### 5 7021-8 #### [facility] CLIA [id number] [address] [place] [address] 63211 Basophils/100 WBC (Bld) 0.2 % Normal [facility] Comment on above: Order Comment: Speci men Type: BLOOD SPECIMEN Ordering Facility: [facility] Address: [address] [address] Performed By: #### 5 7021-8 #### [facility] CLIA [id number] [address] [place] [address] 73548 Differential cell count method Nom (Bld) Auto Normal [facility] Comment on above: Order Comment: Speci men Type: BLOOD SPECIMEN Ordering Facility: [facility] Address: [address] [place] [address] Performed By: #### 5 7021-8 #### [facility] CLIA [id number] [address] [place] [address] 20814 Eosinophils (Bld) [#/Vol] 10*3/uL Normal <0.46 [facility] Comment on above: Order Comment: Speci men Type: BLOOD SPECIMEN Ordering Facility: [facility] Address: [address] [place] [address] Performed By: #### 5 7021-8 #### [facility] CLIA [id number] [address] [place] [address] 39546 Eosinophils/100 WBC (Bld) 0.0 % Normal [facility] Comment on above: Order Comment: Speci men Type: BLOOD SPECIMEN Ordering Facility: [facility] Address: [address] [place] [address] Performed By: #### 5 7021-8 #### [facility] CLIA [id number] [address] [place] [address] 44893 Erythrocyte distribution width (RBC) [Ratio] 14.3 % Normal 11.5-15.0 [facility] Comment on above: Order Comment: Speci men Type: BLOOD SPECIMEN Ordering Facility: [facility] Address: [address] [place] [address] Performed By: #### 5 7021-8 #### [facility] CLIA [id number] [address] [place] [address] 30034 Hematocrit (Bld) [Volume fraction] 38.4 % Normal 36.0-46.0 [facility] Comment on above: Order Comment: Speci men Type: BLOOD SPECIMEN Ordering Facility: [facility] Address: [address] [address] Performed By: #### 5 7021-8 #### [facility] CLIA [id number] [address] [place] [address] 04870 Hemoglobin (Bld) [Mass/Vol] 11.7 g/dL Normal 11.5-15.5 [facility] Comment on above: Order Comment: Speci men Type: BLOOD SPECIMEN Ordering Facility: [facility] Address: [address] [address] Performed By: #### 5 7021-8 #### [facility] CLIA [id number] [address] [place] [address] 66716 Immature granulocytes (Bld) [#/Vol] 10*3/uL Normal <0.10 [facility] Comment on above: Order Comment: Speci men Type: BLOOD SPECIMEN Ordering Facility: [facility] Address: [address] [place] [address] Performed By: #### 5 7021-8 #### [facility] CLIA [id number] [address] [place] [address] 08689 Immature granulocytes/100 WBC (Bld) 0.2 % Normal [facility] Comment on above: Order Comment: Speci men Type: BLOOD SPECIMEN Ordering Facility: [facility] Address: [address] [place] [address] Performed By: #### 5 7021-8 #### [facility] CLIA [id number] [address] [place] [address] 38136 Lymphocytes (Bld) [#/Vol] 1.41 10*3/uL Normal 1.00-4.00 [facility] Comment on above: Order Comment: Speci men Type: BLOOD SPECIMEN Ordering Facility: [facility] Address: [address] [place] [address] Performed By: #### 5 7021-8 #### [facility] CLIA [id number] [address] [place] [address] 33204 Lymphocytes/100 WBC (Bld) 14.2 % Normal [facility] Comment on above: Order Comment: Speci men Type: BLOOD SPECIMEN Ordering Facility: [facility] Address: [address] [address] Performed By: #### 5 7021-8 #### [facility] CLIA [id number] [address] [place] [address] 17996 MCH (RBC) [Entitic mass] 28.8 pg Normal 26.0-34.0 [facility] Comment on above: Order Comment: Speci men Type: BLOOD SPECIMEN Ordering Facility: [facility] Address: [address] [address] Performed By: #### 5 7021-8 #### [facility] CLIA [id number] [address] [place] [address] 00962 MCHC (RBC) [Mass/Vol] 30.5 g/dL Normal 30.5-36.0 [facility] Comment on above: Order Comment: Speci men Type: BLOOD SPECIMEN Ordering Facility: [facility] Address: [address] [address] Performed By: #### 5 7021-8 #### [facility] CLIA [id number] [address] [place] [address] 06069 MCV (RBC) [Entitic vol] 94.6 fL Normal 80.0-100.0 [facility] Comment on above: Order Comment: Speci men Type: BLOOD SPECIMEN Ordering Facility: [facility] Address: [address] [address] Performed By: #### 5 7021-8 #### [facility] CLIA [id number] [address] [place] [address] 85862 Monocytes (Bld) [#/Vol] 0.77 10*3/uL Normal <0.87 [facility] Comment on above: Order Comment: Speci men Type: BLOOD SPECIMEN Ordering Facility: [facility] Address: [address] [address] Performed By: #### 5 7021-8 #### [facility] CLIA [id number] [address] [place] [address] 76156 Monocytes/100 WBC (Bld) 7.7 % Normal [facility] Comment on above: Order Comment: Speci men Type: BLOOD SPECIMEN Ordering Facility: [facility] Address: [address] [address] Performed By: #### 5 7021-8 #### [facility] CLIA [id number] [address] [place] [address] 17171 Neutrophils (Bld) [#/Vol] 7.72 10*3/uL High 1.45-7.50 [facility] Comment on above: Order Comment: Speci men Type: BLOOD SPECIMEN Ordering Facility: [facility] Address: [address] [place] [address] Performed By: #### 5 7021-8 #### [facility] CLIA [id number] [address] [place] [address] 63925 Neutrophils/100 WBC (Bld) 77.7 % Normal [facility] Comment on above: Order Comment: Speci men Type: BLOOD SPECIMEN Ordering Facility: [facility] Address: [address] [place] [address] Performed By: #### 5 7021-8 #### [facility] CLIA [id number] [address] [place] [address] 86680 Nucleated RBC (Bld) [#/Vol] 10*3/uL Normal <0.01 [facility] Comment on above: Order Comment: Speci men Type: BLOOD SPECIMEN Ordering Facility: [facility] Address: [address] [place] [address] Performed By: #### 5 7021-8 #### [facility] CLIA [id number] [address] [place] [address] 63454 Nucleated RBC/100 WBC (Bld) [Ratio] 0.0 /100 WBC Normal [facility] Comment on above: Order Comment: Speci men Type: BLOOD SPECIMEN Ordering Facility: [facility] Address: [address] Performed By: #### 5 7021-8 #### [facility] CLIA [id number] [address] [place] [address] 15107 Platelet mean volume (Bld) [Entitic vol] 9.5 fL Normal 9.0-12.7 [facility] Comment on above: Order Comment: Speci men Type: BLOOD SPECIMEN Ordering Facility: [facility] Address: [address] [address] Performed By: #### 5 7021-8 #### [facility] CLIA [id number] [address] [place] [address] 92355 Platelets (Bld) [#/Vol] 260 10*3/uL Normal 150-400 [facility] Comment on above: Order Comment: Speci men Type: BLOOD SPECIMEN Ordering Facility: [facility] Address: [address] [address] Performed By: #### 5 7021-8 #### [facility] CLIA [id number] [address] [place] [address] 84726 RBC (Bld) [#/Vol] 4.06 10*6/uL Normal 3.90-5.20 [facility] Comment on above: Order Comment: Speci men Type: BLOOD SPECIMEN Ordering Facility: [facility] Address: [address] [address] Performed By: #### 5 7021-8 #### [facility] CLIA [id number] [address] [place] [address] 91544 WBC (Bld) [#/Vol] 9.94 10*3/uL Normal 3.70-11.00 [facility] Comment on above: Order Comment: Speci men Type: BLOOD SPECIMEN Ordering Facility: [facility] Address: [address] [address] Performed By: #### 5 7021-8 #### [facility] CLIA [id number] [address] [place] [address] 81442 CNOVSPon 03-14-2023 [facility] Visit (SP) Office (HEMASA) KAYLIE SALOMON ([id number]) 1950 F Date Time Provider Department 03/14/23 1:30 PM REGINALD ARAGON During your visit today, we recorded the following information about you: Temperature Pulse Respiration Blood pressure 97.7 degrees 68/minute 16/minute 114/63 Weight Height 119.9 kg 1.677 m Reginald Aragon MD 03/15/2023 7:38 AM Signed PATIENT NAME: Kaylie Salomon DATE: 03/14/2023 PRIMARY CARE PHYSICIAN: Dr. Charles Landeros OTHER PHYSICIANS: Dr. Ramon Smith, [facility] XRT Portions of this encounter note [...] once daily. ALLERGIES: Clarithromycin, Conjugated Estrogens, Neosporin [Glrottxb-Kdnaeghcnf-X olymyxin], Paclitaxel, Peanut, Penicillins, and Sulfa (Sulfonamide [...] to COVID-19 (more content not included)... Normal [facility] Cancer Ag27-29 SerPl-aCncon 03-14-2023 Cancer Ag 27-29 Qn 23.1 [arb'U]/mL Normal <38.6 C [facility] Comment on above: Order Comment: Speci men Type: BLOOD SPECIMEN Ordering Facility: [facility] Address: [address] [place], [place] [address] Result Comment: The CA27.29 test was performed using the Siemens Centaur XP chemiluminometric immunoassay method. Results obtained with different assay methods or kits cannot be used interchangeably. Performed By: #### 1 7842-6 #### [facility] CLIA [id number] [address] [place] [address] [place] Comprehensive metabolic 2000 panelon 03-14-2023 Albumin [Mass/Vol] 4.2 g/dL Normal 3.9-4.9 [facility] Comment on above: Order Comment: Speci men Type: BLOOD SPECIMEN Ordering Facility: [facility] Address: [address] [address] Performed By: #### 2 4323-8 #### [facility] CLIA [id number] [address] [place] [address] ALP [Catalytic activity/Vol] 95 U/L Normal 34-123 [facility] Comment on above: Order Comment: Speci men Type: BLOOD SPECIMEN Ordering Facility: [facility] Address: [address] [address] Performed By: #### 2 432-8 #### [facility] CLIA [id number] [address] [place] [address] 01506 ALT [Catalytic activity/Vol] 11 U/L Normal 7-38 [facility] Comment on above: Order Comment: Speci men Type: BLOOD SPECIMEN Ordering Facility: [facility] Address: [address] [address] Performed By: #### 2 4323-8 #### [facility] CLIA [id number] [address] [place] [address] 08916 Anion gap [Moles/Vol] 11 mmol/L Normal 9-18 [facility] Comment on above: Order Comment: Speci men Type: BLOOD SPECIMEN Ordering Facility: [facility] Address: [address] [address] Performed By: #### 2 4323-8 #### [facility] CLIA [id number] [address] [place] [address] 51941 AST [Catalytic activity/Vol] 14 U/L Normal 13-35 [facility] Comment on above: Order Comment: Speci men Type: BLOOD SPECIMEN Ordering Facility: [facility] Address: [address] [address] Performed By: #### 2 4323-8 #### [facility] CLIA [id number] [address] [place] [address] 91759 Bilirubin [Mass/Vol] 0.5 mg/dL Normal 0.2-1.3 [facility] Comment on above: Order Comment: Speci men Type: BLOOD SPECIMEN Ordering Facility: [facility] Address: [address] [address] Performed By: #### 2 4323-8 #### [facility] CLIA [id number] [address] [place] [address] 87106 Calcium [Mass/Vol] 9.3 mg/dL Normal 8.5-10.2 [facility] Comment on above: Order Comment: Speci men Type: BLOOD SPECIMEN Ordering Facility: [facility] Address: [address] [address] Performed By: #### 2 432-8 #### [facility] CLIA [id number] [address] [place] [address] 07367 Chloride [Moles/Vol] 98 mmol/L Normal 97-105 [facility] Comment on above: Order Comment: Speci men Type: BLOOD SPECIMEN Ordering Facility: [facility] Address: [address] [address] Performed By: #### 2 4323-8 #### [facility] CLIA [id number] [address] [place] [address] 54217 CO2 [Moles/Vol] 30 mmol/L Normal 22-30 [facility] Comment on above: Order Comment: Speci men Type: BLOOD SPECIMEN Ordering Facility: [facility] Address: [address] [address] Performed By: #### 2 4323-8 #### [facility] CLIA [id number] [address] [place] [address] 08215 Creatinine [Mass/Vol] 0.97 mg/dL High 0.58-0.96 [facility] Comment on above: Order Comment: Speci men Type: BLOOD SPECIMEN Ordering Facility: [facility] Address: [address] [address] Performed By: #### 2 4323-8 #### [facility] CLIA [id number] [address] [place] [address] 13257 ESTIMATED GLOMERULAR FILTRATION RATE 61 mL/min/1.73m??? Normal >=60 [facility] Comment on above: Order Comment: Specchristie men Type: BLOOD SPECIMEN Ordering Facility: [facility] Address: [address] [place] [address] Result Comment: Violette mated Glomerular Filtration Rate [...] GFR. Performed By: #### 2 4323-8 #### [facility] CLIA [id number] [address] [place] [address] 33913 Glucose [Mass/Vol] 138 mg/dL High 74-99 [facility] Comment on above: Order Comment: Speci men Type: BLOOD SPECIMEN Ordering Facility: [facility] Address: [address] [place] [address] Result Comment: The [place] [employer] (ADA) provides guidance for cutoff [...] Standards of Medical Care in Diabetes 2016, [place] [employer]. Diabetes Care. 2016.39(Suppl 1). Performed By: #### 2 4323-8 #### [facility] CLIA [id number] [address] [place] [address] 25168 Potassium [Moles/Vol] 4.8 mmol/L Normal 3.7-5.1 [facility] Comment on above: Order Comment: Speci men Type: BLOOD SPECIMEN Ordering Facility: [facility] Address: [address] [address] Performed By: #### 2 4323-8 #### [facility] CLIA [id number] [address] [place] [address] 24741 Protein [Mass/Vol] 7.2 g/dL Normal 6.3-8.0 [facility] Comment on above: Order Comment: Speci men Type: BLOOD SPECIMEN Ordering Facility: [facility] Address: [address] [address] Performed By: #### 2 4323-8 #### [facility] CLIA [id number] [address] [place] [address] 15269 Sodium [Moles/Vol] 139 mmol/L Normal 136-144 [facility] Comment on above: Order Comment: Speci men Type: BLOOD SPECIMEN Ordering Facility: [facility] Address: [address] [address] Performed By: #### 2 4323-8 #### [facility] CLIA [id number] [address] [place] [address] 75413 Urea nitrogen [Mass/Vol] 32 mg/dL High 7-21 [facility] Comment on above: Order Comment: Speci men Type: BLOOD SPECIMEN Ordering Facility: [facility] Address: [address] [address] Performed By: #### 2 4323-8 #### [facility] CLIA [id number] [address] [place] [address] 59350 CBC W Auto Differential pane l (Bld)on 09-13-2022 Basophils (Bld) [#/Vol] <0.11 k/uL [facility] Basophils/100 WBC (Bld) 0.2 % [facility] Differential cell count method Nom (Bld) Auto [facility] Eosinophils (Bld) [#/Vol] <0.46 k/uL [facility] Eosinophils/100 WBC (Bld) 0.0 % [facility] Erythrocyte distribution width (RBC) [Ratio] 14.1 % 11.5 - 15.0 % [facility] Hematocrit (Bld) [Volume fraction] 38.1 % 36.0 - 46.0 % [facility] Hemoglobin (Bld) [Mass/Vol] 11.7 g/dL 11.5 - 15.5 g/dL [facility] Immature granulocytes (Bld) [#/Vol] 0.05 10*3/uL <0.10 k/uL [facility] Immature granulocytes/100 WBC (Bld) 0.5 % [facility] Lymphocytes (Bld) [#/Vol] 1.15 10*3/uL 1.00 - 4.00 k/uL [facility] Lymphocytes/100 WBC (Bld) 11.5 % [facility] MCH (RBC) [Entitic mass] 29.4 pg 26.0 - 34.0 pg [facility] MCHC (RBC) [Mass/Vol] 30.7 g/dL 30.5 - 36.0 g/dL [facility] MCV (RBC) [Entitic vol] 95.7 fL 80.0 - 100.0 fL [facility] Monocytes (Bld) [#/Vol] 0.75 10*3/uL <0.87 k/uL [facility] Monocytes/100 WBC (Bld) 7.5 % [facility] Neutrophils (Bld) [#/Vol] 8.04 10*3/uL High 1.45 - 7.50 k/uL [facility] Neutrophils/100 WBC (Bld) 80.3 % [facility] Nucleated RBC (Bld) [#/Vol] <0.01 k/uL [facility] Nucleated RBC/100 WBC (Bld) [Ratio] 0.0 /100 WBC [facility] Platelet mean volume (Bld) [Entitic vol] 10.0 fL 9.0 - 12.7 fL [facility] Platelets (Bld) [#/Vol] 267 10*3/uL 150 - 400 k/uL [facility] RBC (Bld) [#/Vol] 3.98 10*6/uL 3.90 - 5.2 0 m/uL [facility] WBC (Bld) [#/Vol] 10.01 10*3/uL 3.70 - 11 .00 k/uL [facility] Comprehensive metabolic 2000 panelon 09-13-2022 Albumin [Mass/Vol] 4.2 g/dL 3.9 - 4.9 g/dL [facility] ALP [Catalytic activity/Vol] 97 U/L 34 - 123 U/L [facility] ALT [Catalytic activity/Vol] 10 U/L 7 - 38 U/L [facility] Anion gap [Moles/Vol] 10 mmol/L 9 - 18 mmol/L [facility] AST [Catalytic activity/Vol] 12 U/L Low 13 - 35 U/L [facility] Bilirubin [Mass/Vol] 0.4 mg/dL 0.2 - 1.3 mg/dL [facility] Calcium [Mass/Vol] 9.3 mg/dL 8.5 - 10. 2 mg/dL [facility] Chloride [Moles/Vol] 101 mmol/L 97 - 105 mmol/L [facility] CO2 [Moles/Vol] 29 mmol/L 22 - 30 mmol/L [facility] Creatinine [Mass/Vol] 1.02 mg/dL High 0.58 - 0.96 mg/dL [facility] Estimated Glomerular Filtration Rate 58 mL/min/1.73m Low >=60 mL/min/1.73m [facility] Glucose [Mass/Vol] 139 mg/dL High 74 - 99 mg/dL [facility] Potassium [Moles/Vol] 3.9 mmol/L 3.7 - 5.1 mmol/L [facility] Protein [Mass/Vol] 6.9 g/dL 6.3 - 8.0 g/dL [facility] Sodium [Moles/Vol] 140 mmol/L 136 - 144 mmol/L [facility] Urea nitrogen [Mass/Vol] 25 mg/dL High 7 - 21 mg/dL [facility] XR CHEST 2 Von 08-15-2022 XR CHEST [...] No appreciable change. Electronically authenticated by: DEEPTI ZILUISANAMAGALI Date: 2022-08-15 06:58 Normal [facility] BNPon 07-23-2022 Natriuretic peptide B (Bld) [Mass/Vol] 1362.0 pg/mL Critically high <=900.0 [facility] Comment on above: Performed By: #### C MADM, CMP, BNP #### [facility] [address] [address] [address] Hector Rubio CARDIAC [place] ADMITon 022 CK [Catalytic activity/Vol] 84 U/L Normal 26-192 [facility] Comment on above: Performed By: #### C MADM, CMP, BNP #### [facility] [address] [place] [address] Dr. Hector Rubio CK.MB [Mass/Vol] 2.22 ng/mL Normal <=3.60 [facility] Comment on above: Performed By: #### C MADM, CMP, BNP #### [facility] [address] [place] [address] Dr. Hector Rubio HSTROP 41.0 pg/mL Normal 4.0-51.3 [facility] Comment on above: Result Comment: CUT- OFF POINTS HAVE BEEN ESTABLISHED BASED ON THE FOURTH UNIVERSAL DEFINITIONS OF MYOCARDIAL INFARCTION. THE UPPER REFERENCE LIMIT (URL) OF TROPONIN, DEFINED THE 99TH PERCENTILE OF cTnI DISTRIBUTION IN A REFERENCE POPULATION, HAS BEEN CONFIRMED THE DECISION THRESHOLD FOR OR DIAGNOSIS. Performed By: #### C MADM, CMP, BNP #### [facility] [address] [place] [address] Dr. Hector Rubio DIONNE 95 ng/mL Critically high 9-82 [facility] Comment on above: Performed By: #### C MADM, CMP, BNP #### [facility] [address] [address] [address] Hector Rubio CBC AUTO DIFFon 07-23-2022 BASO # 0.0 103/ul Normal 0.0-0.1 [facility] Comment on above: Performed By: #### C BC #### [facility] [address] [address] [address] Hector Rubio Basophils/100 WBC (Bld) 0.1 % Critically low 0.2-2.0 [facility] Comment on above: Performed By: #### C BC #### [facility] [address] [place] [address] Dr. Hector Rubio EO # 0.0 103/ul Normal 0.0-0.7 [facility] Comment on above: Performed By: #### C BC #### [facility] [address] [place] [address] Dr. Hector Rubio Eosinophils/100 WBC (Bld) 0.0 % Critically low 0.9-7.0 [facility] Comment on above: Performed By: #### C BC #### [facility] [address] [place] [address] Dr. Hector Rubio Erythrocyte distribution width (RBC) [Ratio] 13.7 % Normal 11.0-15.0 [facility] Comment on above: Performed By: #### C BC #### [facility] [address] [place] [address] Dr. Hector Rubio Hematocrit (Bld) [Volume fraction] 38.9 % Normal 36.0-48.0 [facility] Comment on above: Performed By: #### C BC #### [facility] [address] [place] [address] Dr. Hector Rubio Hemoglobin (Bld) [Mass/Vol] 11.8 g/dL Critically low 12.0-16.0 [facility] Comment on above: Performed By: #### C BC #### [facility] [address] [place] [address] Dr. Hector Rubio IG # 0.02 10e3/ul Normal 0.00-0.03 [facility] Comment on above: Performed By: #### C BC #### [facility] [address] [place] [address] Dr. Hector Rubio IG % 0.3 % Normal 0.0-0.5 [facility] Comment on above: Performed By: #### C BC #### [facility] [address] [place] [address] Dr. Hector Rubio LYMPH # 1.0 103/ul Critically low 1.2-3.8 [facility] Comment on above: Performed By: #### C BC #### [facility] [address] [place] [address] Dr. Hector Rubio Lymphocytes/100 WBC (Bld) 12.6 % Critically low 20.5-60.0 [facility] Comment on above: Performed By: #### C BC #### [facility] [address] [place] [address] Dr. Hector Rubio MANUAL DIFF REQ NO Normal [facility] Comment on above: Performed By: #### C BC #### [facility] [address] [place] [address] Dr. Hector Rubio MCH (RBC) [Entitic mass] 29.0 pg Normal 26.7-34.0 [facility] Comment on above: Performed By: #### C BC #### [facility] [address] [place] [address] Dr. Hector Rubio MCHC (RBC) [Mass/Vol] 30.3 g/dL Normal 29.9-35.2 [facility] Comment on above: Performed By: #### C BC #### [facility] [address] [place] [address] Dr. Hector Rubio MCV (RBC) [Entitic vol] 95.6 fL Normal 81.0-99.0 [facility] Comment on above: Performed By: #### C BC #### [facility] [address] [place] [address] Dr. Hector Rubio MONO # 0.7 103/ul Normal 0.3-0.8 [facility] Comment on above: Performed By: #### C BC #### [facility] [address] [place] [address] Dr. Hector Rubio Monocytes/100 WBC (Bld) 9.0 % Normal 1.7-12.0 [facility] Comment on above: Performed By: #### C BC #### [facility] [address] [place] [address] Dr. Hector Rubio NEUT # 6.1 103/ul Normal 1.4-6.5 [facility] Comment on above: Performed By: #### C BC #### [facility] [address] [place] [address] Dr. Hector Rubio Neutrophils/100 WBC (Bld) 78.0 % Critically high 43.0-75.0 [facility] Comment on above: Performed By: #### C BC #### [facility] [address] [place] [address] Dr. Hector Rubio Platelet mean volume (Bld) [Entitic vol] 9.7 fL Normal 9.5-13.5 [facility] Comment on above: Performed By: #### C BC #### [facility] [address] [place] [address] Dr. Hector Rubio PLT 202 103/ul Normal 150-450 [facility] Comment on above: Performed By: #### C BC #### [facility] [address] [place] [address] Dr. Hector Rubio RBC 4.07 106/ul Critically low 4.20-5.40 [facility] Comment on above: Performed By: #### C BC #### [facility] [address] [place] [address] Dr. Hector Rubio WBC 7.8 103/ul Normal 4.0-11.0 [facility] Comment on above: Performed By: #### C BC #### [facility] [address] [place] [address] Dr. Hector Rubio Covid-19 PCR ([facility])on 07-01 SARS-CoV-2 (COVID-19) RNA SHLOMO+probe Ql (Unsp spec) Not detected Normal NOT DETECTED [facility] Comment on above: Result Comment: When [...] for this test is supported by the [employer] of Health and Human Service's declaration that [...] used). Performed By: #### C VDTBH #### [facility] [address] [place] [address] Dr. Hector Rubio PROF 14(COMP METB)on 022 Albumin [Mass/Vol] 3.7 g/dL Normal 3.4-5.0 [facility] Comment on above: Performed By: #### C MADM, CMP, BNP #### [facility] [address] [place] [address] Dr. Hector Rubio Albumin/Globulin [Mass ratio] 0.9 {ratio} Normal [facility] Comment on above: Performed By: #### C MADM, CMP, BNP #### [facility] [address] [place] [address] Dr. Hector Rubio ALP [Catalytic activity/Vol] 90 U/L Normal 46-116 [facility] Comment on above: Performed By: #### C MADM, CMP, BNP #### [facility] [address] [place] [address] Dr. Hector Rubio ALT [Catalytic activity/Vol] 17 U/L Normal 14-59 [facility] Comment on above: Performed By: #### C MADM, CMP, BNP #### [facility] [address] [place] [address] Dr. Hector Rubio Anion gap [Moles/Vol] 7.8 mmol/L Normal [facility] Comment on above: Performed By: #### C MADM, CMP, BNP #### [facility] [address] [place] [address] Dr. Hector Rubio AST [Catalytic activity/Vol] 12 U/L Critically low 15-37 [facility] Comment on above: Performed By: #### C MADM, CMP, BNP #### [facility] [address] [address] [address] Hector Rubio Bilirubin [Mass/Vol] 0.5 mg/dL Normal 0.2-1.0 [facility] Comment on above: Performed By: #### C MADM, CMP, BNP #### [facility] [address] [address] [address] Hector Rubio Calcium [Mass/Vol] 9.1 mg/dL Normal 8.5-10.1 [facility] Comment on above: Performed By: #### C MADM, CMP, BNP #### [facility] [address] [place] [address] Dr. Hector Rubio Chloride [Moles/Vol] 102 mmol/L Normal 98-107 [facility] Comment on above: Performed By: #### C MADM, CMP, BNP #### [facility] [address] [place] [address] Dr. Hector Rubio CO2 [Moles/Vol] 33.1 mmol/L Critically high 21.0-32.0 [facility] Comment on above: Performed By: #### C MADM, CMP, BNP #### [facility] [address] [place] [address] Dr. Hector Rubio Creatinine [Mass/Vol] 0.89 mg/dL Normal 0.55-1.02 [facility] Comment on above: Performed By: #### C MADM, CMP, BNP #### [facility] [address] [place] [address] Dr. eHctor Rubio EGFR-AF BRAZILIAN >60 Normal >=60 [facility] Comment on above: Performed By: #### C MADM, CMP, BNP #### [facility] [address] [place] [address] Dr. Hector Rubio EGFR-NON AF BRAZILIAN >60 Normal >=60 [facility] Comment on above: Performed By: #### C MADM, CMP, BNP #### [facility] [address] [place] [address] Dr. Hector Rubio Globulin (S) [Mass/Vol] 4.0 g/dL Normal [facility] Comment on above: Performed By: #### C MADM, CMP, BNP #### [facility] [address] [address] [address] Hector Rubio Glucose [Mass/Vol] 118 mg/dL Critically high 74-106 [facility] Comment on above: Performed By: #### C MADM, CMP, BNP #### [facility] [address] [address] [address] Hector Rubio Potassium [Moles/Vol] 3.9 mmol/L Normal 3.5-5.1 [facility] Comment on above: Performed By: #### C MADM, CMP, BNP #### [facility] [address] [place] [address] Dr. Hector Rubio Protein [Mass/Vol] 7.7 g/dL Normal 6.4-8.2 [facility] Comment on above: Performed By: #### C MADM, CMP, BNP #### [facility] [address] [address] [address] Hector Rubio Sodium [Moles/Vol] 139 mmol/L Normal 136-145 [facility] Comment on above: Performed By: #### C MADAlesia, CMP, BNP #### [facility] [address] [address] [address] Hector Rubio Urea nitrogen [Mass/Vol] 29.0 mg/dL Critically high 7.0-18.0 [facility] Comment on above: Performed By: #### C MADM, CMP, BNP #### [facility] [address] [place] [address] Dr. Hector Rubio Urea nitrogen/Creatinine [Mass ratio] 32.6 mg/mg Normal [facility] Comment on above: Performed By: #### C MADM, CMP, BNP #### [facility] [address] [address] [address] Hector Rubio XR CHEST 1 Von [...] GABRIELLE LIU Date: 2022-07-23 16:40 Normal [facility] MAMM DX 3D LT CADon 06-14 MG MAMM DX 3D LT CAD Patient: KAYLIE SALOMON Exam Date: 06/14/2022 : 1950 Gender:F Ordering : DR REGINALD ARAGON M.D. Admission #: [id number] Family : Order #: [id number] CLICK HERE TO VIEW EXAM CORRECTION Corrected [...] Treatments None Family Cancers None LOCATION: [facility] BREAST COMPOSITION: Scattered areas fibroglandular density. FINDINGS: DIAGNOSTIC CATEGORY 2--BENIGN FINDING: LEFT BREAST: No significant suspicious finding. Scattered benign-appearing nodules are present. No significant change has occurred. RECOMMENDATIONS: ROUTINE MAMMOGRAM AND CLINICAL EVALUATION IN 12 MONTHS. PLEASE NOTE: A NORMAL MAMMOGRAM DOES NOT EXCLUDE THE POSSIBILITY OF BREAST CANCER. A CLINICALLY SUSPICIOUS PALPABLE LUMP SHOULD BE BIOPSIED. Dictated by: Deepti Hinojosa M.D. on 06/14/2022 at 10:31 Approved by: Deepti Hinojosa M.D. on 06/14/2022 at 10:39 Dictated by: Deepti Hinojosa M.D. on 09/18/2022 at 09:22 Approved by: Deepti Hinojosa M.D. on 09/18/2022 at 09:22 Normal [facility] CT Chest W contrast Juan Jose IMPRESSION: 1. Stable posttreatment changes, as described above. 2. Stable appearance of left lower lobe 5 mm nodule. No new or enlarging nodules are seen. 3. No evidence of bulky intrathoracic lymphadenopathy. Transcribe Date/Time: Aug 17 2021 10:48A Dictated by: LIZZY HEATH MD This examination was interpreted and the report reviewed and electronically signed by: LIZZY HEATH MD on Aug 17 2021 11:56AM EST Thank you for allowing us to participate in the care of your patient. Should there be any questions regarding this interpretation, please call [phone]. If you are unable to reach us at the number above, please feel free to contact [facility] at [phone]. DIVISION OF RADIOLOGY * * *Final Report* * * DATE OF EXAM: Aug 17 2021 10:00AM [facility] 0539 - CT CHEST W IVCON / PROCEDURE REASON: Lung nodules * * * * Physician Interpretation * * * * RESULT: EXAMINATION: CHEST CT WITH CONTRAST CLINICAL HISTORY: History of breast cancer. Technique: Spiral CT acquisition of the chest from the thoracic inlet to the upper abdomen following IV contrast. MQ: CTCW_6 Contrast: 150 mL Omnipaque [address] Radiation dose: Integrated Dose-length product (DLP) for this visit = 359 mGy*cm CT Dose Reduction Employed: Automated exposure control (AEC) Comparison: CT chest performed 08/01/2020 RESULT: Limitations: None. Lines, tubes, and devices: None. Lung parenchyma and airways: There is stable subpleural reticulation in the right upper and right middle lobes, likely on the basis of postradiation change. Stable bandlike opacities are noted in the lingula and right lower lobe likely relating to subsegmental atelectasis or scarring. No dense lobar consolidation is visualized. There is a stable 5 mm nodule in the left lower lobe (3:122). No new or enlarging nodules are visualized. Pleural space: No pleural effusion. No pleural thickening. Lower neck, lymph nodes, and mediastinum: The imaged thyroid gland is normal. No lymphadenopathy in the supraclavicular, axillary, mediastinal, or hilar regions. Heart, pericardium, and thoracic vessels: The thoracic aorta and main pulmonary artery are normal in caliber. The cardiac chambers are normal in size. Coronary artery atherosclerotic calcification is noted. No pericardial effusion or thickening. Bones and soft tissues: Degenerative change is seen in the thoracic spine. No destructive osseous lesions are seen. Postsurgical changes are noted in keeping with right mastectomy and right axillary lymph node dissection. There is stable skin thickening in the right chest wall, in keeping with posttreatment changes. Superficial soft tissues are otherwise unremarkable. Upper abdomen: An incompletely visualized cyst is noted arising from the left kidney. The upper abdomen is otherwise unremarkable. Plant Guide (topogram) images: No additional findings. DIVISION OF RADIOLOGY Provider, [facility] - 08/17/2021 * * *Final Report* * * DATE OF EXAM: Aug 17 2021 10:00AM [facility] 0539 - CT CHEST W IVCON / PROCEDURE REASON: Lung nodules * * * * Physician Interpretation * * * * RESULT: EXAMINATION: CHEST CT WITH CONTRAST CLINICAL HISTORY: History of breast cancer. Technique: Spiral CT acquisition of the chest from the thoracic inlet to the upper abdomen following IV contrast. MQ: CTCW_6 Contrast: 150 mL Omnipaque [address] Radiation dose: Integrated Dose-length product (DLP) for this visit = 359 mGy*cm CT Dose Reduction Employed: Automated exposure control (AEC) Comparison: CT chest performed 08/01/2020 RESULT: Limitations: None. Lines, tubes, and devices: None. Lung parenchyma and airways: There is stable subpleural reticulation in the right upper and right middle lobes, likely on the basis of postradiation change. Stable bandlike opacities are noted in the lingula and right lower lobe likely relating to subsegmental atelectasis or scarring. No dense lobar consolidation is visualized. There is a stable 5 mm nodule in the left lower lobe (3:122). No new or enlarging nodules are visualized. Pleural space: No pleural effusion. No pleural thickening. Lower neck, lymph nodes, and mediastinum: The imaged thyroid gland is normal. No lymphadenopathy in the supraclavicular, axillary, mediastinal, or hilar regions. Heart, pericardium, and thoracic vessels: The thoracic aorta and main pulmonary artery are normal in caliber. The cardiac chambers are normal in size. Coronary artery atherosclerotic calcification is noted. No pericardial effusion or thickening. Bones and soft tissues: Degenerative change is seen in the thoracic spine. No destructive osseous lesions are seen. Postsurgical changes are noted in keeping with right mastectomy and right axillary lymph node dissection. There is stable skin thickening in the right chest wall, in keeping with posttreatment changes. Superficial soft tissues are otherwise unremarkable. Upper abdomen: An incompletely visualized cyst is noted arising from the left kidney. The upper abdomen is otherwise unremarkable. Plant Guide (topogram) images: No additional findings. IMPRESSION IMPRESSION: 1. Stable posttreatment changes, as described above. 2. Stable appearance of left lower lobe 5 mm nodule. No new or enlarging nodules are seen. 3. No evidence of bulky intrathoracic lymphadenopathy. Transcribe Date/Time: Aug 17 2021 10:48A Dictated by: LIZZY HEATH MD This examination was interpreted and the report reviewed and electronically signed by: LIZZY HEATH MD on Aug 17 2021 11:56AM EST Thank you for allowing us to participate in the care of your patient. Should there be any questions regarding this interpretation, please call [phone]. If you are unable to reach us at the number above, please feel free to contact [facility] at [phone]. [facility] Radiology Study observation (narrative) [facility] CT Chest W contrast IVOrdere d By: [facility] Provider on 08-17-2021 [facility] BASIC METABOLIC PANELon 05-0 Calcium [Mass/Vol] 9.3 mg/dL Normal 8.6-10.3 [facility] Comment on above: Order Comment: Yes: Add to Previous draw if able Performed By: #### 0 0121, [id number] #### [facility] [address] [place] [address], [facility] Chloride [Moles/Vol] 98 mmol/L Normal 98-107 [facility] Comment on above: Order Comment: Yes: Add to Previous draw if able Performed By: #### 0 0121, [id number] #### [facility] [address] [place] [address], [place] CO2 [Moles/Vol] 34 mmol/L High 21-31 [facility] Comment on above: Order Comment: Yes: Add to Previous draw if able Performed By: #### 0 0121, [id number] #### [facility] [address] [place] [address], [place] Creatinine [Mass/Vol] 0.59 mg/dL Low 0.60-1.20 [facility] Comment on above: Order Comment: Yes: Add to Previous draw if able Performed By: #### 0 0121, [id number] #### [facility] [address] [place] [address], [place] GFR/1.73 sq M predicted among blacks MDRD (S/P/Bld) [Vol rate/Area] mL/min/{1.73_m2} Normal >60 [facility] Comment on above: Order Comment: Yes: Add to Previous draw if able Result Comment: Calc ulation may not be valid for patients over 70 years Performed By: #### 0 0121, [id number] #### [facility] [address] [place] [address], [place] GFR/1.73 sq M predicted among non-blacks MDRD (S/P/Bld) [Vol rate/Area] mL/min/{1.73_m2} Normal >60 [facility] Comment on above: Order Comment: Yes: Add to Previous draw if able Result Comment: Calc ulation may not be valid for patients over 70 years Performed By: #### 0 0121, [id number] #### [facility] [address] [place] [address], [place] Glucose [Mass/Vol] 256 mg/dL High 70-100 [facility] Comment on above: Order Comment: Yes: Add to Previous draw if able Performed By: #### 0 0121, [id number] #### [facility] [address] [place] [address], [place] Potassium [Moles/Vol] 4.5 mmol/L Normal 3.5-5.1 [facility] Comment on above: Order Comment: Yes: Add to Previous draw if able Performed By: #### 0 0121, [id number] #### [facility] [address] Sodium [Moles/Vol] 139 mmol/L Normal 136-145 [facility] Comment on above: Order Comment: Yes: Add to Previous draw if able Performed By: #### 0 0121, [id number] #### [facility] [address] Urea nitrogen [Mass/Vol] 21 mg/dL Normal 7-25 [facility] Comment on above: Order Comment: Yes: Add to Previous draw if able Performed By: #### 0 0121, [id number] #### [facility] [address] CBC W/DIFFon 02-02-2019 ABS BASOPHILS 0.0 10*3/uL Normal 0.0-0.2 [facility] Comment on above: Performed By: #### 0 0121, [id number] #### [facility] [address] ABS IMM GRANS 0.1 10*3/uL Normal 0.0-0.2 [facility] Comment on above: Performed By: #### 0 0121, [id number] #### [facility] [address] ABS NEUTROPHILS 16.9 10*3/uL High 1.6-7.6 [facility] Comment on above: Performed By: #### 0 0121, 70516 #### [facility] [address] Basophils/100 WBC (Bld) 0.1 % Normal 0.0-1.0 [facility] Comment on above: Performed By: #### 0 0121, 11173 #### [facility] [address] Eosinophils (Bld) [#/Vol] 0.0 10*3/uL Normal 0.0-0.5 [facility] Comment on above: Performed By: #### 0 012, 24743 #### [facility] [address] [address] Eosinophils/100 WBC (Bld) 0.0 % Normal 0.0-6.0 [facility] Comment on above: Performed By: #### 0 012, 29959 #### [facility] [address] Erythrocyte distribution width (RBC) [Ratio] 14.3 % Normal 11.5-15.0 [facility] Comment on above: Performed By: #### 0 012, 03943 #### [facility] [address] Hematocrit (Bld) [Volume fraction] 37.3 % Normal 36.0-45.0 [facility] Comment on above: Performed By: #### 0 012, 11545 #### [facility] [address] Hemoglobin (Bld) [Mass/Vol] 11.6 g/dL Low 12.0-15.0 [facility] Comment on above: Performed By: #### 0 012, 68068 #### [facility] [address] IMMATURE GRANS 0.4 % Normal 0.0-1.0 [facility] Comment on above: Performed By: #### 0 012, 34646 #### [facility] [address] Lymphocytes (Bld) [#/Vol] 0.5 10*3/uL Low 1.2-4.0 [facility] Comment on above: Performed By: #### 0 012, 40693 #### [facility] [address] [facility] [address], [facility] Lymphocytes/100 WBC (Bld) 2.5 % Low 20.0-45.0 [facility] Comment on above: Performed By: #### 0 012, 51064 #### [facility] [address] [place] [address], [facility] MCH (RBC) [Entitic mass] 28.9 pg Normal 27.0-33.0 [facility] Comment on above: Performed By: #### 0 012, 80802 #### [facility] [address] [place] [address], [facility] MCHC (RBC) [Mass/Vol] 31.1 g/dL Low 32.0-35.0 [facility] Comment on above: Performed By: #### 0 012, 64512 #### [facility] [address] [place] [address], [facility] MCV (RBC) [Entitic vol] 93.0 fL Normal 82.0-98.0 [facility] Comment on above: Performed By: #### 0 012, 89144 #### [facility] [address] [place] [address], [facility] Monocytes (Bld) [#/Vol] 0.3 10*3/uL Normal 0.1-1.0 [facility] Comment on above: Performed By: #### 0 012, 58817 #### [facility] [address] [place] [address], [facility] MONOS 1.5 % Low 5.0-12.0 [facility] Comment on above: Performed By: #### 0 012, 26065 #### [facility] [address] [place] [id number], [facility] Neutrophils/100 WBC (Bld) 95.5 % High 40.0-72.0 [facility] Comment on above: Performed By: #### 0 0121, 71465 #### [facility] [address] [place] [address], [facility] Nucleated RBC/100 WBC (Bld) [Ratio] 0 % Normal 0-0 [facility] Comment on above: Performed By: #### 0 0121, 49693 #### [facility] [address] [place] [address], [facility] PLAT CNT 265 10*3/uL Normal 150-400 [facility] Comment on above: Performed By: #### 0 0121, 59718 #### [facility] [address] [place] [address], [facility] RBC (Bld) [#/Vol] 4.01 10*6/uL Normal 3.80-5.00 [facility] Comment on above: Performed By: #### 0 0121, 24317 #### [facility] [address] [place] [address], [facility] WBC (Bld) [#/Vol] 17.67 10*3/uL High 4.00-10.60 [facility] Comment on above: Performed By: #### 0 0121, 49557 #### [facility] [address] [place] [address], [facility] POC GLUCOSE LABon 02-02-2019 Glucose [Mass/Vol] 215 mg/dL High 70-100 [facility] Comment on above: Performed By: #### 0 0121, 59017 #### [facility] [address] [place] [address], [facility] BNP (B-TYPE NATRIURETIC PEPT DARCI)on 02-01-2019 Natriuretic peptide B (Bld) [Mass/Vol] 423 pg/mL High 0-100 [facility] Comment on above: Order Comment: Yes: Add to Previous draw if able Result Comment: Give n the appropriate clinical setting a BNP result of >100 pg/mL indicates congestive heart failure. Performed By: #### 8 5123 #### [facility] [address] [facility] [address] CBC W/DIFFon 02-01-2019 ABS BASOPHILS 0.0 10*3/uL Normal 0.0-0.2 [facility] Comment on above: Order Comment: Yes: Add to Previous draw if able Performed By: #### 5 0103 #### [facility] [address] [place] [address], [facility] ABS IMM GRANS 0.1 10*3/uL Normal 0.0-0.2 [facility] Comment on above: Order Comment: Yes: Add to Previous draw if able Performed By: #### 5 0103 #### [facility] [address] ABS NEUTROPHILS 12.2 10*3/uL High 1.6-7.6 [facility] Comment on above: Order Comment: Yes: Add to Previous draw if able Performed By: #### 5 0103 #### [facility] [address] [place] [address], [facility] Basophils/100 WBC (Bld) 0.2 % Normal 0.0-1.0 [facility] Comment on above: Order Comment: Yes: Add to Previous draw if able Performed By: #### 5 0103 #### [facility] [address] [place] [address], [facility] Eosinophils (Bld) [#/Vol] 0.0 10*3/uL Normal 0.0-0.5 [facility] Comment on above: Order Comment: Yes: Add to Previous draw if able Performed By: #### 5 0103 #### [facility] [address] [place] [address], [facility] Eosinophils/100 WBC (Bld) 0.0 % Normal 0.0-6.0 [facility] Comment on above: Order Comment: Yes: Add to Previous draw if able Performed By: #### 5 0103 #### [facility] [address] Erythrocyte distribution width (RBC) [Ratio] 14.3 % Normal 11.5-15.0 [facility] Comment on above: Order Comment: Yes: Add to Previous draw if able Performed By: #### 5 0103 #### [facility] [address] [place] [address], [facility] Hematocrit (Bld) [Volume fraction] 39.9 % Normal 36.0-45.0 [facility] Comment on above: Order Comment: Yes: Add to Previous draw if able Performed By: #### 3 #### [facility] [address] [facility] [address] Hemoglobin (Bld) [Mass/Vol] 11.8 g/dL Low 12.0-15.0 [facility] Comment on above: Order Comment: Yes: Add to Previous draw if able Performed By: #### 5 3 #### [facility] [address] [facility] [place] [address], [facility] IMMATURE GRANS 0.4 % Normal 0.0-1.0 [facility] Comment on above: Order Comment: Yes: Add to Previous draw if able Performed By: #### 5 3 #### [facility] [address] [place] [address], [facility] Lymphocytes (Bld) [#/Vol] 0.3 10*3/uL Low 1.2-4.0 [facility] Comment on above: Order Comment: Yes: Add to Previous draw if able Performed By: #### 5 0103 #### [facility] [address] [facility] [address], [facility] Lymphocytes/100 WBC (Bld) 2.6 % Low 20.0-45.0 [facility] Comment on above: Order Comment: Yes: Add to Previous draw if able Performed By: #### 5 3 #### [facility] [address] [place] [address], [facility] MCH (RBC) [Entitic mass] 28.6 pg Normal 27.0-33.0 [facility] Comment on above: Order Comment: Yes: Add to Previous draw if able Performed By: #### 5 0103 #### [facility] [address] [place] [address], [facility] MCHC (RBC) [Mass/Vol] 29.6 g/dL Low 32.0-35.0 [facility] Comment on above: Order Comment: Yes: Add to Previous draw if able Performed By: #### 5 0103 #### [facility] [address] [place] [id number], [facility] MCV (RBC) [Entitic vol] 96.6 fL Normal 82.0-98.0 [facility] Comment on above: Order Comment: Yes: Add to Previous draw if able Performed By: #### 3 #### [facility] [address] [place] [address], [facility] Monocytes (Bld) [#/Vol] 0.1 10*3/uL Normal 0.1-1.0 [facility] Comment on above: Order Comment: Yes: Add to Previous draw if able Performed By: #### 5 3 #### [facility] [address] [place] [address], [facility] MONOS 0.9 % Low 5.0-12.0 [facility] Comment on above: Order Comment: Yes: Add to Previous draw if able Performed By: #### 5 3 #### [facility] [address] [place] [address], [facility] Neutrophils/100 WBC (Bld) 95.9 % High 40.0-72.0 [facility] Comment on above: Order Comment: Yes: Add to Previous draw if able Performed By: #### 3 #### [facility] [address] [place] [id number], [facility] Nucleated RBC/100 WBC (Bld) [Ratio] 0 % Normal 0-0 [facility] Comment on above: Order Comment: Yes: Add to Previous draw if able Performed By: #### 5 3 #### [facility] [address] [place] [address], [facility] PLAT CNT 240 10*3/uL Normal 150-400 [facility] Comment on above: Order Comment: Yes: Add to Previous draw if able Performed By: #### 5 0103 #### [facility] [address] [place] [address], [facility] RBC (Bld) [#/Vol] 4.13 10*6/uL Normal 3.80-5.00 [facility] Comment on above: Order Comment: Yes: Add to Previous draw if able Performed By: #### 5 3 #### [facility] [address] [place] [address], [facility] WBC (Bld) [#/Vol] 12.76 10*3/uL High 4.00-10.60 [facility] Comment on above: Order Comment: Yes: Add to Previous draw if able Performed By: #### 5 3 #### [facility] [address] [place] [address], [facility] COMP METABOLIC PANELon 02-01 Albumin [Mass/Vol] 4.1 g/dL Normal 3.5-5.7 [facility] Comment on above: Order Comment: Yes: Add to Previous draw if able Performed By: #### 0 0121, 96428 #### [facility] [address] [place] [address], [facility] ALKALINE PHOSPH 70 IU/L Normal 34-104 [facility] Comment on above: Order Comment: Yes: Add to Previous draw if able Performed By: #### 0 0121, 09392 #### [facility] [address] [place] [address], [facility] ALT [Catalytic activity/Vol] 14 U/L Normal 7-52 [facility] Comment on above: Order Comment: Yes: Add to Previous draw if able Performed By: #### 0 0121, 52784 #### [facility] [address] [place] [address], [place] AST [Catalytic activity/Vol] 16 U/L Normal 13-39 [facility] Comment on above: Order Comment: Yes: Add to Previous draw if able Performed By: #### 0 0121, 78429 #### [facility] [address] [place] [address], [place] Bilirubin [Mass/Vol] 0.5 mg/dL Normal 0.3-1.0 [facility] Comment on above: Order Comment: Yes: Add to Previous draw if able Performed By: #### 0 0121, 57297 #### [facility] [address] [place] [address], [place] Calcium [Mass/Vol] 9.0 mg/dL Normal 8.6-10.3 [facility] Comment on above: Order Comment: Yes: Add to Previous draw if able Performed By: #### 0 0121, 20924 #### [facility] [address] [place] [address], [place] Chloride [Moles/Vol] 98 mmol/L Normal 98-107 [facility] Comment on above: Order Comment: Yes: Add to Previous draw if able Performed By: #### 0 0121, 06214 #### [facility] [address] [place] [address], [place] CO2 [Moles/Vol] 31 mmol/L Normal 21-31 [facility] Comment on above: Order Comment: Yes: Add to Previous draw if able Performed By: #### 0 0121, 05984 #### [facility] [address] [place] [address], [place] Creatinine [Mass/Vol] 0.67 mg/dL Normal 0.60-1.20 [facility] Comment on above: Order Comment: Yes: Add to Previous draw if able Performed By: #### 0 0121, 97411 #### [facility] [address] [place] [address], [place] GFR/1.73 sq M predicted among blacks MDRD (S/P/Bld) [Vol rate/Area] mL/min/{1.73_m2} Normal >60 [facility] Comment on above: Order Comment: Yes: Add to Previous draw if able Result Comment: Calc ulation may not be valid for patients over 70 years Performed By: #### 0 0121, 58380 #### [facility] [address] [place] [address], [place] GFR/1.73 sq M predicted among non-blacks MDRD (S/P/Bld) [Vol rate/Area] mL/min/{1.73_m2} Normal >60 [facility] Comment on above: Order Comment: Yes: Add to Previous draw if able Result Comment: Calc ulation may not be valid for patients over 70 years Performed By: #### 0 0121, 45335 #### [facility] [address] [place] [address], [place] Glucose [Mass/Vol] 245 mg/dL High 70-100 [facility] Comment on above: Order Comment: Yes: Add to Previous draw if able Performed By: #### 0 0121, 08917 #### [facility] [address] [place] [address], [place] Potassium [Moles/Vol] 4.2 mmol/L Normal 3.5-5.1 [facility] Comment on above: Order Comment: Yes: Add to Previous draw if able Performed By: #### 0 0121, 83463 #### [facility] [address] [place] [address], [place] Protein [Mass/Vol] 7.1 g/dL Normal 6.0-8.3 [facility] Comment on above: Order Comment: Yes: Add to Previous draw if able Performed By: #### 0 0121, 24976 #### [facility] [address] [place] [address], [facility] Sodium [Moles/Vol] 136 mmol/L Normal 136-145 [facility] Comment on above: Order Comment: Yes: Add to Previous draw if able Performed By: #### 0 0121, 48287 #### [facility] [address] [place] [address], [place] Urea nitrogen [Mass/Vol] 13 mg/dL Normal 7-25 [facility] Comment on above: Order Comment: Yes: Add to Previous draw if able Performed By: #### 0 0121, 61225 #### [facility] [address] [place] [address], [place] POC GLUCOSE LABon 02-01-2019 Glucose [Mass/Vol] 225 mg/dL High 70-100 [facility] Comment on above: Performed By: #### 0 0121, 74427 #### [facility] [address] [facility] [address], [place] Glucose [Mass/Vol] 230 mg/dL High 70-100 [facility] Comment on above: Performed By: #### 0 0121, 25337 #### [facility] [address] [facility] [address], [place] Glucose [Mass/Vol] 237 mg/dL High 70-100 [facility] Comment on above: Performed By: #### 8 5499 #### [facility] [address] [place] [address], [place] Glucose [Mass/Vol] 247 mg/dL High 70-100 [facility] Comment on above: Performed By: #### 8 5499 #### [facility] [address] [place] [address], [place] PORTABLE CHEST 1 VIEWon PORTABLE CHEST 1 VIEW [facility] Department of Radiology [address] [place] [id number] ======== Patient Name: KAYLIE SALOMON : 1950 Sex: F Age: Race: White Pt. Location: [address] [place] [address] Patient Status: I Ordered Date: 01/31/2019 11:45:00 [...] findings. Electronically signed by:Rachael Cardenas. Transcribed by: [email or web address], User Resident: ROSA STRANGE Electronically Signed by: RACHAEL CARDENAS @ 02/01/2019 12:39 PM I personally read this/these film(s) with this resident Normal [facility] Comment on above: Order Comment: R/O I nfiltrates PROCALCITONINon 02-01-2019 PROCALCITONIN 0.07 ng/mL Normal 0.00-0.10 [facility] Comment on above: Order Comment: Yes: [...] and initial PCT<0.5ng/mL Performed By: #### 3 7418 #### [facility] [address] [place] [address], [facility] TROPONIN-Ion 02-01-2019 Troponin I.cardiac [Mass/Vol] 0.08 ng/mL High 0.00-0.04 [facility] Comment on above: Order Comment: No: D o not add to previous draw Result Comment: REFE RENCE RANGES: 0.00 - 0.04 ng/ml NORMAL 0.05 - 0.50 ng/ml INDETERMINATE > 0.50 ng/ml CONSISTENT WITH AN M.I. Performed By: #### 3 1515 #### [facility] [address] [facility]. [address] Troponin I.cardiac [Mass/Vol] 0.08 ng/mL High 0.00-0.04 [facility] Comment on above: Order Comment: No: D o not add to previous draw Result Comment: REFE RENCE RANGES: 0.00 - 0.04 ng/ml NORMAL 0.05 - 0.50 ng/ml INDETERMINATE > 0.50 ng/ml CONSISTENT WITH AN M.I. Performed By: #### 0 0121, 52308 #### [facility] [address] Cardiovascular Lab Reporton 01-16-2019 Cardiovascular Lab Report [facility] MR #: [id number] Department of Physician: Pepe Alexandre M.D. Division of Service Date: 01/16/2019 Cardiology Birthdate: 1950 Adult Cardiovascular Room #: [facility] [address] [facility] [place] [address] Cardiovascular Laboratory Report FINAL IMPRESSION: 1. Nonobstructive [...] the right radial artery was obtained. A 6-[place] glide sheath was inserted without difficulty. Bilateral [...] angled Glidewire. INDICATIONS: Troponin elevation, type 2 ctj-IT-oarrwoubs myocardial infarction. Electronically Signed by: Shemar Hudson M.D. 01/29/2019 08:36 A Shemar Hudson M.D. Date Dict: 01/16/2019/01:01 Shakila Hudson M.D. Date Trans: 01/16/2019 02:39 P/kiran [id number] Normal [facility] SWEAT CHLORIDEon 12-03-2018 SWEAT CHLORIDE 36 mmol/L Abnormal [facility] Comment on above: Order Comment: Right [id number] Left arm [id number] Result Comment: REFE RENCE VALUES <=29 mMol/L CYSTIC FIBROSIS IS UNLIKELY 30-59 mMol/L INTERMEDIATE >=60 mMol/L INDICATIVE OF CYSTIC FIBROSIS NOTE: SWEAT CHLORIDE VALUES LESS THAN 30 mMol/L HAVE BEEN DOCUMENTED IN GENETICALLY PROVEN CF PATIENTS. CLINICAL CORRELATION IS NECESSARY. Performed By: #### S WCH1 #### [facility] [address] [place] [address] WT COLLECTED 0.177 grams Normal [facility] Comment on above: Order Comment: Right [id number] Left arm [id number] Performed By: #### S WCH1 #### [facility] [address] [place] [address] SWEAT CHLORIDE 42 mmol/L Abnormal [facility] Comment on above: Order Comment: Christopheras inna fax results to Doctor Charles Landeros MD. Phone: [phone] Result Comment: REFE RENCE VALUES <=29 mMol/L CYSTIC FIBROSIS IS UNLIKELY 30-59 mMol/L INTERMEDIATE >=60 mMol/L INDICATIVE OF CYSTIC FIBROSIS NOTE: SWEAT CHLORIDE VALUES LESS THAN 30 mMol/L HAVE BEEN DOCUMENTED IN GENETICALLY PROVEN CF PATIENTS. CLINICAL CORRELATION IS NECESSARY. Performed By: #### S WCH1 #### [facility] [address] [place] [address] WT COLLECTED 0.215 grams Normal [facility] Comment on above: Order Comment: Doroteo keith fax results to Doctor Charles Landeros MD. Phone: [phone] Performed By: #### S WCH1 #### [facility] [address] [place] [address] Vital Signs Date Time Vital Sign Value Performing Clinician Dasha lewis 03-14-2023 12:45-0400 Body height 167.7 cm Reginald Aragon MD Work Phone: [facility] 03-14-2023 12:45-0400 Body temperature 97.7 [degF] Reginald Aragon MD Work Phone: [facility] 03-14-2023 12:45-0400 Body weight 119.93 kg Reginald Aragon MD Work Phone: [facility] 03-14-2023 12:45-0400 Diastolic blood pressure 63 mm[Hg] Reginald Aragon MD Work Phone: [facility] 03-14-2023 12:45-0400 Heart rate 68 /min Reginald Aragon MD Work Phone: [facility] 03-14-2023 12:45-0400 Respiratory rate 16 /min Reginald Aragon MD Work Phone: [facility] 03-14-2023 12:45-0400 SaO2% (BldA) [Mass fraction] 97 % Reginald Aragon MD Work Phone: [facility] 03-14-2023 12:45-0400 Systolic blood pressure 114 mm[Hg] Reginald Aragon MD Work Phone: [facility] 09-13-2022 12:57-0500 Body height 167.7 cm Samantha Benitez MUSIC THERAPY TEACHER.DIGITAL SALES ASSISTANT Work Phone: [facility] 09-13-2022 12:57-0500 Body temperature 97.59 [degF] Samantha Benitez MUSIC THERAPY TEACHER.DIGITAL SALES ASSISTANT Work Phone: [facility] 09-13-2022 12:57-0500 Body weight 120.47 kg Samantha Benitez APRN.DIGITAL SALES ASSISTANT Work Phone: [facility] 09-13-2022 12:57-0500 Diastolic blood pressure 68 mm[Hg] Samantha Benitez MUSIC THERAPY TEACHER.DIGITAL SALES ASSISTANT Work Phone: [facility] 09-13-2022 12:57-0500 Heart rate 93 /min Samantha Benitez APRN.DIGITAL SALES ASSISTANT Work Phone: [facility] 09-13-2022 12:57-0500 Respiratory rate 16 /min Samantha Benitez APRN.DIGITAL SALES ASSISTANT Work Phone: [facility] 09-13-2022 12:57-0500 SaO2% (BldA) [Mass fraction] 100 % Samantha Benitez APRN.DIGITAL SALES ASSISTANT Work Phone: [facility] 09-13-2022 12:57-0500 Systolic blood pressure 120 mm[Hg] Samantha Benitez MUSIC THERAPY TEACHER.DIGITAL SALES ASSISTANT Work Phone: [facility] 03-14-2022 14:12-0400 Body height 167.7 cm Reginald Aragon MD Work Phone: [facility] 03-14-2022 14:12-0400 Body temperature 97.81 [degF] Reginald Aragon MD Work Phone: [facility] 03-14-2022 14:12-0400 Body weight 120.57 kg Reginald Aragon MD Work Phone: [facility] 03-14-2022 14:12-0400 Diastolic blood pressure 76 mm[Hg] Reginald Aragon MD Work Phone: [facility] 03-14-2022 14:12-0400 Heart rate 98 /min Reginald Aragon MD Work Phone: [facility] 03-14-2022 14:12-0400 Respiratory rate 16 /min Reginald Aragon MD Work Phone: [facility] 03-14-2022 14:12-0400 SaO2% (BldA) [Mass fraction] 95 % Reginald Aragon MD Work Phone: [facility] 03-14-2022 14:12-0400 Systolic blood pressure 114 mm[Hg] Reginald Aragon MD Work Phone: [facility] Encounters Encounter Date Encounter Type Care Provider Facility Start: 03-04-2025 ambulatory [facility] Facility: [facility] Start: 10-05-2024 ambulatory [facility] Facility: [facility] Start: 06-25-2024 End: 06-25-2024 ambulatory [facility] Start: 06-17-2024 End: 06-17-2024 ambulatory [facility] Start: 06-09-2024 ambulatory Inderjit Ly acility:[facility] Start: 05-20-2024 End: 05-20-2024 ambulatory [facility] Start: 05-13-2024 End: 05-13-2024 ambulatory [facility] Start: 05-06-2024 End: 05-06-2024 ambulatory [place] [facility] Start: 05-05-2024 End: 05-05-2024 ambulatory [facility] Start: 03-30-2024 End: 03-30-2024 ambulatory [place] Con Facility:[facility] Start: 03-05-2024 End: 03-05-2024 ambulatory [place] L Con Facility:[facility] Start: 02-11-2024 End: 02-11-2024 ambulatory JENSEN CARTER Not Available Start: 02-11-2024 End: 02-11-2024 ambulatory [facility] Start: 01-09-2024 End: 01-09-2024 ambulatory [place] L Con Facility:[facility] Start: 01-07-2024 End: 01-07-2024 ambulatory [facility] Start: 01-06-2024 End: 01-29-2024 ambulatory [place] [facility] Start: 12-11-2023 End: 12-11-2023 ambulatory [facility] Start: 11-27-2023 End: 12-30-2023 ambulatory [place] [facility] Start: 10-31-2023 ambulatory [facility] Start: 10-31-2023 End: 10-31-2023 ambulatory [facility] Start: 10-24-2023 End: 10-24-2023 ambulatory [facility] Start: 09-17-2023 End: 09-17-2023 ambulatory [facility] Start: 09-12-2023 End: 09-12-2023 ambulatory REGINALD ARAGON Facility:[facility] Start: 09-12-2023 Telephone encounter Carin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 obstructive pulmonary disease) ([facility]) Edema Hyperlipidemia Hypertension OA (osteoarthritis of spine) [...] be respiring comfortabl (more content not included)... [facility] 03-14-2023 History of Present illness [...] once daily. ALLERGIES: Clarithromycin, Conjugated Estrogens, Neosporin [Gekgkjni-Bwkfdrlcmc-Ggsbfjuzd], Paclitaxel, Peanut, Penicillins, and Sulfa (Sulfonamide Antibiotics) PAST MEDICAL HISTORY: PAST MEDICAL HISTORY Diagnosis Date AF (atrial fibrillation) ([facility]) Asthma Breast cancer ([facility]) 02/[address] 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 I will see [...] Reginald Aragon MD documented in this encounter [facility] 09-13-2022 History of Present illness Narrative PATIENT [...] once daily. ALLERGIES: Clarithromycin, Conjugated Estrogens, Neosporin [Woezgard-Bgfjxejfpk-Wnrrkftwz], Paclitaxel, Peanut, Penicillins, and Sulfa (Sulfonamide Antibiotics) [...] 253 RADIOLOGY/OTHER STUDIES: 06/14/2022 Left Diagnostic Mammogram ([facility]) Findings: Diagnostic category 2-benign finding: Left breast: No significant suspicious finding. Scattered benign-appearing nodules are present. No significant change has occurred. 08/17/2021 CT CHEST IMPRESSION: 1. Stable posttreatment changes, as described above. 2. Stable appearance of left lower lobe 5 mm nodule. No new or enlarging nodules are seen. 3. No evidence of bulky intrathoracic lymphadenopathy. 06/13/2021 Left Diagnostic Mammogram ([facility]) No significant suspicious finding. 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 Samantha Benitez APRN.DIGITAL SALES ASSISTANT documented in this encounter [facility] 03-14-2022 History of Present illness Narrative PATIENT [...] once daily. ALLERGIES: Clarithromycin, Conjugated Estrogens, Neosporin [Sjbeoxhr-Lihllduprr-Cwuackomu], Paclitaxel, Peanut, Penicillins, and Sulfa (Sulfonamide Antibiotics) PAST MEDICAL HISTORY: PAST MEDICAL HISTORY Diagnosis Date AF (atrial fibrillation) ([facility]) Asthma Breast cancer ([facility]) 02/[address] Landeros COPD (chronic obstructive pulmonary disease) ([facility]) Edema Hyperlipidemia Hypertension OA (osteoarthritis of spine) [...] bulky intrathoracic lymphadenopathy. 06/13/2021 Left Diagnostic Mammogram ([facility]) No significant suspicious finding. 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 FALL SCREENING: Has the patient had 2 falls in the last year or 1 fall with injury or currently using an Ambulatory Assistive Device (Walker, Cane, Wheelchair, Crutches, etc.)? No PATIENT GENDER DATA: Female. status: : No status: NO. PATIENT RELEVANT IMPLANT DATA REVIEWED: Not Applicable RADIOLOGY DEPARTMENT: CT; Exam(s) Completed: Chest PERIPHERAL IV DATA: Site assessment: Clean,Dry and Intact, Site disposition Discontinued SIGNED BY: RT Mara(R) August 17, 2021 10:20 AM documented in this encounter [facility] 08-17-2021 Nurse Note Radiology Service Progress Note DATE OF SERVICE: August 17, 2021 TIME: 9:26 AM PATIENT WEIGHT: 259 LBS PATIENT IDENTITY VERIFICATION COMPLETED USING TWO (2) STANDARD IDENTIFIERS: Name and Date of confirmed by patient verbally. FALL SCREENING: Has the patient had 2 falls in the last year or 1 fall with injury or currently using an Ambulatory Assistive Device (Walker, Cane, Wheelchair, Crutches, etc.)? No PATIENT GENDER DATA: Female. status: : No status: NO. ALLERGIES: Reviewed and unchanged CONTRAST ALLERGY: No EXAM: CT -CONTRAST INDUCED NEPHROPATHY RISK FACTORS: Patient age > 60 years, Diabetic: Yes. Current medication(s): Metformin. Patient currently has insulin pump?: No. and Congestive Heart Failure (CHF) CREATININE: Creatinine Date Value Ref Range Status 08/17/2021 0.81 0.58 - 0.96 mg/dL Final 05/01/2021 0.79 0.58 - 0.96 mg/dL Final 04/06/2021 0.89 0.58 - 0.96 mg/dL Final eGFR-All Other Races Date Value Ref Range Status 08/17/2021 >59 . Final Comment: eGFR (Estimated GFR) Units of measure: mL/min/1.73 meters squared eGFR is derived from the reexpressed MDRD Study equation using the following parameters: serum creatinine, age, gender and race. The creatinine assay has been calibrated to be traceable to IDMS. An eGFR <60 mL/min/1.73m2 for >3 months is consistent with chronic kidney disease. Refer to KDOQI guidelines for clinical interpretation. In patients with unstable renal function, e.g. those with acute kidney injury, the eGFR may not accurately reflect actual GFR. Note: On 11/25/2021, the eGFR calculation will be updated to the NKF-ASN Task Force recommended 2020 CKD-EPI creatinine equation which does not include a race variable. For more information or to access a 2020 CKD-EPI calculator, visit the National Kidney Foundation website at kidney.org/professionals/kdoqi/g fr_calculator. eGFR- Date Value Ref Range Status 08/17/2021 >59 Final Comment: Note: On 11/25/2021, the eGFR calculation will be updated to the NKF-ASN Task Force recommended 2020 CKD-EPI creatinine equation which does not include a race variable. For more information or to access a 2020 CKD-EPI calculator, visit the National Kidney Foundation website at kidney.org/professionals/kdoqi/g fr_calculator. P.O.C.T. RESULTS: POC done: Yes, See Lab Tab August 17, 2021 TREATMENT: No Hydration needed. IV SITE: Ambulatory: A peripheral IV was started in the Left antecubital site with a Angio cath: 20 gauge. IV SITE APPEARANCE: Clean,Dry and Intact SIGNATURE: Carin Ramos RN, BSN PATIENT NAME: Kaylie Salomon DATE: August 17, 2021 TIME: 9:26 AM [facility] 08-17-2021 Nurse Note Radiology Service Progress Note DATE OF SERVICE: August 17, 2021 TIME: 9:26 AM PATIENT WEIGHT: 259 LBS PATIENT IDENTITY VERIFICATION COMPLETED USING TWO (2) STANDARD IDENTIFIERS: Name and Date of confirmed by patient verbally. FALL SCREENING: Has the patient had 2 falls in the last year or 1 fall with injury or currently using an Ambulatory Assistive Device (Walker, Cane, Wheelchair, Crutches, etc.)? No PATIENT GENDER DATA: Female. status: : No status: NO. ALLERGIES: Reviewed and unchanged CONTRAST ALLERGY: No EXAM: CT -CONTRAST INDUCED NEPHROPATHY RISK FACTORS: Patient age > 60 years, Diabetic: Yes. Current medication(s): Metformin. Patient currently has insulin pump?: No. and Congestive Heart Failure (CHF) CREATININE: Creatinine Date Value Ref Range Status 08/17/2021 0.81 0.58 - 0.96 mg/dL Final 05/01/2021 0.79 0.58 - 0.96 mg/dL Final 04/06/2021 0.89 0.58 - 0.96 mg/dL Final eGFR-All Other Races Date Value Ref Range Status 08/17/2021 >59 . Final Comment: eGFR (Estimated GFR) Units of measure: mL/min/1.73 meters squared eGFR is derived from the reexpressed MDRD Study equation using the following parameters: serum creatinine, age, gender and race. The creatinine assay has been calibrated to be traceable to IDMS. An eGFR <60 mL/min/1.73m2 for >3 months is consistent with chronic kidney disease. Refer to KDOQI guidelines for clinical interpretation. In patients with unstable renal function, e.g. those with acute kidney injury, the eGFR may not accurately reflect actual GFR. Note: On 11/25/2021, the eGFR calculation will be updated to the NKF-ASN Task Force recommended 2020 CKD-EPI creatinine equation which does not include a race variable. For more information or to access a 2020 CKD-EPI calculator, visit the National Kidney Foundation website at kidney.org/professionals/kdoqi/g fr_calculator. eGFR- Date Value Ref Range Status 08/17/2021 >59 Final Comment: Note: On 11/25/2021, the eGFR calculation will be updated to the NKF-ASN Task Force recommended 2020 CKD-EPI creatinine equation which does not include a race variable. For more information or to access a 2020 CKD-EPI calculator, visit the National Kidney Foundation website at kidney.org/professionals/kdoqi/g fr_calculator. P.O.C.T. RESULTS: POC done: Yes, See Lab Tab August 17, 2021 TREATMENT: No Hydration needed. IV SITE: Ambulatory: A peripheral IV was started in the Left antecubital site with a Angio cath: 20 gauge. IV SITE APPEARANCE: Clean,Dry and Intact SIGNATURE: Carin Ramos RN, BSN PATIENT NAME: Kaylie Salomon DATE: August 17, 2021 TIME: 9:26 AM documented in this encounter [facility] Evaluation note Diagnosis Malignant neoplasm of overlapping sites of right breast in female, estrogen receptor negative (HCC)- Primary Other iron deficiency anemia [facility] Malignant neoplasm of overlapping sites of right breast in female, estrogen receptor negative (HCC)- Primary Iron deficiency anemia secondary to inadequate dietary iron intake [facility] Diagnosis Malignant neoplasm of overlapping sites of right breast in female, estrogen receptor negative (HCC)- Primary History of iron deficiency Personal history of diseases of blood and blood-forming organs [facility] Malignant neoplasm of overlapping sites of right breast in female, estrogen receptor negative (HCC)- Primary [facility] Diagnosis Malignant neoplasm of overlapping sites of right breast in female, estrogen receptor negative (HCC)- Primary Hx of total mastectomy of right breast Personal history of surgery to other organs [facility] Diagnosis Lung nodules Other nonspecific abnormal finding of lung field documented in this encounter [facility] for referral (narrative)* Diagnostic Procedure Only (Routine) - Pending Review Specialty Diagnoses / Procedures Referred By Contac t Referred To Contact [facility] Diagnoses Malignant neoplasm of overlapping sites of right breast in female, estrogen receptor negative (HCC) Procedures RAMBO DIAGNOSTIC LT DIAGNOSTIC MAMMOGRAPHY COMPUTER-AIDED DETCJ Reginald Casas MD [address] [place] [address] [facility] [address] [place] [address] Referral ID Status Reason Start Date Expiration Date Visits Requested Visits Authorized [id number] Pending Review Auto-Generat ed Referral 03/14/2022 04/13/2023 1 1 [facility] for referral (narrative)* Diagnostic Procedure Only (Routine) - Pending Review Specialty Diagnoses / Procedures Referred By Contac t Referred To Contact [facility] Diagnoses Malignant neoplasm of overlapping sites of right breast in female, estrogen receptor negative (HCC) Procedures RAMBO DIAGNOSTIC LEFT DIAGNOSTIC MAMMOGRAPHY COMPUTER-AIDED DETCJ Shayy Villatoro PA-C [address] [place] [address] [facility] [address] [place] [address] Referral ID Status Reason Start Date Expiration Date Visits Requested Visits Authorized [id number] Pending Review Auto-Generat ed Referral 06/07/2023 07/06/2024 1 1 [facility] Summary Purpose Family History No Family History [...] Records Found Hospital Course Note MR#: [id number] [facility] Pt. Name: Kaylie Salomon Admitted: 01/31/2019 Discharged: 02/02/2019 Date of : 1950 Physician: Tramaine Sandhu MD DISCHARGE SUMMARY PRIMARY CARE PHYSICIAN: No PCP. CONSULTING SERVICE: None. ADMITTING DIAGNOSES: 1. Lfzqd-ce-zmxzjwu hypercapnic hypoxic respiratory failure. 2. Atrial fibrillation with rapid ventricular response. 3. Moderate persistent asthma with exacerbation. 4. Productive cough. DISCHARGE DIAGNOSES: 1. Tdmpu-dt-fzvfgus hypoxemic/hypercapnic respiratory failure. 2. Moderate persistent asthma [...] BREAST PROSTHESIS, MASTECTOMY BRA Reginald Aragon MD [address] [place] [address] [place] [address] Referral ID Status Reason Start Date Expiration Date V isits Requested Visits Authorized [id number] Closed Auto-Generate d Referral 09/12/2023 09/12/2024 1 1 Additional Source Comments INFORMATION SOURCE (unrecogn ized section and content) DATE CREATED AUTHOR 12/05/2018 [facility] DATE CREATED AUTHOR AUTHOR'S ORGANIZ ATION 05/13/2019 [facility] DATE CREATED AUTHOR AUTHOR'S ORGANIZ ATION 09/21/2022 [facility] DATE CREATED AUTHOR AUTHOR'S ORGANIZ ATION 09/14/2023 [facility] DATE CREATED AUTHOR AUTHOR'S ORGANIZ ATION 02/13/2024 [facility] DATE CREATED AUTHOR AUTHOR'S ORGANIZ ATION 03/31/2024 [facility] DATE CREATED AUTHOR AUTHOR'S ORGANIZ ATION 05/22/2024 [facility] DATE CREATED AUTHOR AUTHOR'S ORGANIZ ATION 06/11/2024 [facility] DATE CREATED AUTHOR AUTHOR'S ORGANIZ ATION 06/30/2024 [facility] Source Comments (unrecognize d section and content) In the event this informatio n is protected by the Federal Confidentiality of Alcohol and Drug Abuse Patient Records regulations: The Federal rules restrict any use of the information to criminally investigate or prosecute any alcohol or drug abuse patient.[facility] the event this information is protected by the Federal Confidentiality of Alcohol and Drug Abuse Patient Records regulations: The Federal rules restrict any use of the information to criminally investigate or prosecute any alcohol or drug abuse patient.[facility] the event this information is protected by the Federal Confidentiality of Alcohol and Drug Abuse Patient Records regulations: The Federal rules restrict any use of the information to criminally investigate or prosecute any alcohol or drug abuse patient.[facility] Center[facility] the event this information is protected by the Federal Confidentiality of Alcohol and Drug Abuse Patient Records regulations: The Federal rules restrict any use of the information to criminally investigate or prosecute any alcohol or drug abuse patient.[facility] Center[facility] the event this information is protected by the Federal Confidentiality of Alcohol and Drug Abuse Patient Records regulations: The Federal rules restrict any use of the information to criminally investigate or prosecute any alcohol or drug abuse patient.[facility] Center[facility] the event this information is protected by the Federal Confidentiality of Alcohol and Drug Abuse Patient Records regulations: The Federal rules restrict any use of the information to criminally investigate or prosecute any alcohol or drug abuse patient.[facility] Center[facility] the event this information is protected by the Federal Confidentiality of Alcohol and Drug Abuse Patient Records regulations: The Federal rules restrict any use of the information to criminally investigate or prosecute any alcohol or drug abuse patient.[facility] Center[facility] the event this information is protected by the [facility] Confidentiality of Alcohol and Drug Abuse Patient Records regulations: The Federal rules restrict any use of the information to criminally investigate or prosecute any alcohol or drug abuse patient.[facility] Center[facility] the event this information is protected by the Federal Confidentiality of Alcohol and Drug Abuse Patient Records regulations: The Federal rules restrict any use of the information to criminally investigate or prosecute any alcohol or drug abuse patient.[facility] Reason for Visit (unrecogniz ed section and content) Reason Comments Breast Cancer 6 month follow up Reason Comments Refill Request Reason Comments Breast Cancer Follow up Reason Comments Breast Cancer 1 year follow up Reason Comments Results Reason Comments Orders Reason Comments Radiology CT Care Teams (unrecognized sec tion and content) Provider Service Representative Relationship Specialty Start Date End Date Charles Landeros MD [address] [place] [address] PCP - General Family Practice 03/11/19 Samantha Benitez, RU.DIGITAL SALES ASSISTANT [address] [place] [address] Physician Jewelry Estimator Hematology/Oncology 04/27/19 Reginald Aragon MD [address] [place] [address] Physician Hematology/Oncology 12/07/19 Provider Service Representative Relationship Specialty Start Date End Date Charles Landeros MD [address] [place] [address] PCP - General Family Medicine 03/11/19 Samantha Benitez, MUSIC THERAPY TEACHER.DIGITAL SALES ASSISTANT [address] [place] [address] Physician Jewelry Estimator Hematology/Oncology 04/27/19 Reginald Aragon MD [address] [place] [address] Physician Hematology/Oncology 12/07/19 Provider Service Representative Relationship Specialty Start Date End Date Charles Landeros MD [address] [place] [address] PCP - General Family Medicine 03/11/19 Samantha Benitez, MUSIC THERAPY TEACHER.DIGITAL SALES ASSISTANT [address] [place] [address] Physician Jewelry Estimator Hematology/Oncology 04/27/19 Reginald Aragon MD [address] [place] [address] Physician Hematology/Oncology 12/07/19 Provider Service Representative Relationship Specialty Start Date End Date Charles Landeros MD [address] [place] [place] [address] PCP - General Family Medicine 03/11/19 Samantha Benitez, MUSIC THERAPY TEACHER.DIGITAL SALES ASSISTANT [address] [place] [address] Physician Jewelry Estimator Hematology/Oncology 04/27/19 Reginald Aragon MD [address] [place], [place] [id number] Physician Hematology/Oncology 12/07/19 Provider Service Representative Relationship Specialty Start Date End Date Charles Landeros MD [address] [place] [address] PCP - General Family Medicine 03/11/19 Samantha Benitez, MUSIC THERAPY TEACHER.DIGITAL SALES ASSISTANT [address] [place] [address] Physician Jewelry Estimator Hematology/Oncology 04/27/19 Reginald Aragon MD [address] [place] [address] Physician Hematology/Oncology 12/07/19 Provider Service Representative Relationship Specialty Start Date End Date Charles Landeros MD [address] [place] [address] PCP - General Family Medicine 03/11/19 Samantha Bneitez, MUSIC THERAPY TEACHER.DIGITAL SALES ASSISTANT [address] [place] [address] Physician Jewelry Estimator Hematology/Oncology 04/27/19 Reginald Aragon MD [address] [place] [address] Physician Hematology/Oncology 12/07/19 Provider Service Representative Relationship Specialty Start Date End Date Charles Landeros MD [address] [place] [address] PCP - General Family Medicine 03/11/19 Samantha Benitez, MUSIC THERAPY TEACHER.DIGITAL SALES ASSISTANT [address] [place] [address] Physician Jewelry Estimator Hematology/Oncology 04/27/19 Reginald Aragon MD [address] [place] [address] Physician Hematology/Oncology 12/07/19 Provider Service Representative Relationship Specialty Start Date End Date Charles Landeros MD [address] [facility] [address] PCP - General Family Medicine 03/11/19 Samantha Benitez APRN.DIGITAL SALES ASSISTANT [address] [place] [address] Physician Jewelry Estimator Hematology/Oncology 04/27/19 Reginald Aragon MD [address] [place] [address] Physician Hematology/Oncology 12/07/19 FOR RECORDS PERTAINING TO [...] BE BASED ON THE PRIMARY CLINICAL RECORDS. [employer] [facility]. provides no warranty or guarantee of the accuracy or completeness of information in this document.
== END 2024-07-06 10:33 | disposition home or self-care (01) ==
LOC: EC 10:32
PROVIDERS: PCP Nurse Practitioner; Visit Provider Orthopaedic Surgery
DX: S42.295D Other nondisplaced fracture of upper end of left humerus, subsequent encounter for fracture with routine healing (principal)
CPT/HCPCS: 73030

== ENCOUNTER 2024-07-30 12:57 | Outpatient (OUT) | payer MEDICARE, MEDICAID, SELFPAY ==
[2024-07-30 13:31] LABS: Anion Gap 14.9; BUN Creatinine Ratio 32.7; Calcium 8.8 mg/dL (8.5-10.1); Carbon Dioxide 31.3 mmol/L (21.0-32.0); Chloride 101 mmol/L (98-107); Estimated GFR (African America 38 (>=60 mL/min/1.73m^2); Estimated GFR (Non-African Ame 32 (>=60 mL/min/1.73m^2); Glucose 75 mg/dL (74-106); Potassium 4.2 mmol/L (3.5-5.1); Sodium 143 mmol/L (136-145)
== END 2024-07-30 12:58 | disposition home or self-care (01) ==
LOC: LAB 13:03
PROVIDERS: PCP Nurse Practitioner; Visit Provider Nurse Practitioner Family
DX: I50.32 Chronic diastolic (congestive) heart failure (principal)
CPT/HCPCS: 36415; 80048

== ENCOUNTER 2024-08-17 10:34 | Outpatient (OUT) | payer MEDICARE, MEDICAID, SELFPAY ==
--- NOTE | 2024-08-17 | XR_ITS ---
The [address] [address] Patient Name: RUBI SALOMON MRN: [id number] date: 1950 Sex: F Assigned Patient Location: Current Patient Location: Accession/Order Number: [id number] Exam Date: 08/17/2024 10:34 Report Date: 08/19/2024 06:51 At the request of: DEEPTI PHELPS Procedure: XR shoulder LT min 2V PROCEDURE: XR shoulder LT min 2V HISTORY: LEFT SHOULDER PAIN ; follow-up humerus fracture COMPARISON: XR shoulder left 07/06/2024 FINDINGS: BONES:Stable remote fracture and impaction of femoral shaft into femoral neck/head. Increasing sclerosis suggestive of some bone healing. Stable low riding humeral head in relation to the glenoid. SOFT TISSUES:No visible soft tissue swelling. EFFUSION:None visible. OTHER: Negative. XR/XR shoulder LT min 2V IMPRESSION: 1. Stable alignment and ongoing bone healing of left humeral neck fracture. Electronically authenticated by: DEEPTI MALLORY Date: 08/19/2024 06:51
--- OUTSIDE RECORDS SUMMARY | 2024-08-17 10:53 | XMS_ITS | CCD ---
Author Organization [facility] Care Team Providers Care Employment Attorney Name Role Phone ELLUIS ARMANDOHAWJulia, EHAB A Admitting Unavailable ELTAHAWJulia EHAB A Attending Unavailable UNKNOWN, PHYSICIAN Referring Unavailable UNKNOWN, PHYSICIAN Primary Care Unavailable MEJOSEHISMARLENMARACELI Admitting Unava ilable MEQING, ARACELI Attending Unava ilable UNKNOWN, PHYSICIAN Referring Unavailable UNKNOWN, PHYSICIAN Primary Care Unavailable Charles Landeros MD Primary Care Provider Emmanuel SHIRT PRESSER.ENAMEL PULVERIZER, Samantha Unavailable Reginald Aragon MD Unavailable Charles Landeros MD Primary Care Provider [phone] Emmanuel SHIRT PRESSER.ENAMEL PULVERIZER, Samantha Unavailable [phone] Reginald Aragon MD R Unavailable [phone] Charles Landeros MD Primary Care Provider [phone] Emmanuel SHIRT PRESSER.ENAMEL PULVERIZER, Samantha Unavailable Reginald Aragon MD R Unavailable [phone] NADINE, DR CHARLES Keith Admitting Unavailable [...] NADINE, DR CHARLES Keith Primary Care Unavailable ZIEBMAGALI, DR DEEPTI Mondragon Consulting Unavailable BRIANA, MITCHEL Admitting Unavailable GABRIELLE LIU Consulting Unavailable BRIANA, MITCHEL Attending Unavailable NADINE, DR CHARLES Keith Primary Care Unavailable MITCHEL WARREN Consulting Unavailable JENSEN CARTER Attending Unavailable CON, OH L Referring Unavailable CON, OH L Primary Care Unavailable CON, OH L Referring Unavailable CON, OH L Primary Care Unavailable JEFFERY, BRIAN Referring Unavailable CON, OH L Primary Care Unavailable CON, OH L Referring Unavailable CON, OH L Primary Care Unavailable DAISYROSA Referring Unavailable CON, OH L Primary Care Unavailable OLGA, ELIF Referring Unavailable LANDEROSCHARLES Primary Care Unavailable ROSA VILLA Attending Unavailable ROSA VILLA Attending Unavailable JEFFERY, BRIAN Attending Unavailable JEFFERY, BRIAN Referring Unavailable OLGA, ELIF Attending Unavailable JEFFERY, BRIAN Attending Unavailable JEFFERY, BRIAN Referring Unavailable JEFFERY, BRIAN Referring Unavailable JEFFERY, BRIAN Admitting Unavailable JEFFERY, BRIAN Attending Unavailable MELISSA TORRES Attending Unavailable PIETRO ALDRIDGE Attending Unavailable DAISYROSA DE LOS SANTOS Attending Unavailable Charles Landeros MD Primary Care Provider [phone] Inderjit Cha Attending Unavailab Inderjit Hughes Admitting Unavailab Charles Rain Primary Care Unavailable REGINALD ARAGON Referring Unavailable REGINALD ARAGON Attending Unavailable CHARLES LANDEROS Primary Care Unavailable REGINALD ARAGON Referring Unavailable CHARLES LANDEROS Primary Care Unavailable REGINALD ARAGON Referring Unavailable REGINALD ARAGON Attending Unavailable CHARLES LANDEROS [place] Primary Care Unavailable LANDEROSCHARLES GRACIA [place] Primary Care Unavailable REGINALD ARAGON Referring Unavailable Con, Oh Fuentes Attending Unavailable Con, Oh L Attending Unavailable Con, Oh L Attending Unavailable Con, Oh L Attending Unavailable Con, Oh L Attending Unavailable Con, Oh L Attending Unavailable Allergies Allergy Classification Reported Allergen(s) Allergy Type Date of Onset Reaction(s) Facility (3 sources) Penicillin; Translations: [penicillin] Drug Allergy 01-17-20 [facility] [place] Repository (5 sources) Sulfonamides (Antibiotic); Translations: [SULFA (SULFONAMIDE ANTIBIOTICS)] Drug allergy (disorder) 01-28-20 10 [facility] [place] Repository (13 sources) bacitracin / neomycin / polymyxin b; Translations: [NEOMYCIN-BACITRAC IN-POLYMYXIN] Drug Allergy 05-06-20 19 [facility] (14 sources) Clarithromycin; Translations: [CLARITHROMYCIN] Drug Allergy 01-28-20 10 Unknown [facility] (13 sources) Estrogens, Conjugated (JAIL); Translations: [CONJUGATED ESTROGENS] Drug Allergy 01-28-20 10 [facility] (12 sources) PACLitaxel; Translations: [PACLITAXEL] Drug Allergy 08-24-20 19 Other: See Comments [facility] (13 sources) peanut allergenic extract; Translations: [PEANUT] Drug Allergy 05-06-20 19 Anaphylaxis [facility] (4 sources) Penicillins; Translations: [PENICILLINS] Drug Allergy 05-06-20 19 Rash [facility] (10 sources) Sulfonamides (Antibiotic) Drug Allergy 01-28-20 10 [facility] (9 sources) Penicillins Drug Allergy 05-06-20 19 [facility] (3 sources) Shrimp product; Translations: [SHRIMP] Propensity to adverse reactions to food (disorder) 05-07-20 [facility] Rep[facility] (4 sources) PINEAPPLE; Translations: [PINEAPPLE] Propensity to adverse reactions to food (disorder) 05-07-20 [facility] (3 sources) Bacitracin; Translations: [BACITRACIN] Drug Allergy 05-16-20 [facility] [place] Repository (1 source) Bromelains; Translations: [BROMELAINS] Drug Allergy 04-25-20 [facility] [place] [facility] (2 sources) Estrogens, Conjugated (JAIL); Translations: [ESTROGENS, CONJUGATED] Drug Allergy 05-16-20 [facility] [place] Rep[facility] (1 source) Neomycin; Translations: [NEOMYCIN SULFATE] Drug Allergy 04-25-20 23 [facility] [place] Repository (2 sources) POLYMYXIN B; Translations: [POLYMYXIN B] Propensity to adverse reactions to drug (disorder) 05-16-20 [facility] Rep[facility] (1 source) Clarithromycin Drug Allergy 05-16-20 21 [facility] Repository (1 source) Fish Oils Drug Allergy 06-12-20 [facility] (1 source) Neomycin Drug Allergy 05-16-20 [facility] (1 source) PACLitaxel Drug Allergy 05-16-20 [facility] (1 source) peanut allergenic extract Drug Allergy 05-16-20 [facility] (1 source) Penicillins Drug allergy (disorder) 06-12-20 [facility] Rep[facility] (1 source) Sulfacetamide Drug Allergy 06-12-20 [facility] (1 source) Sulfonamides (Antibiotic) Drug allergy (disorder) 05-16-20 [facility] (1 source) Sulfur Drug Allergy 06-12-20 [facility] (1 source) tree nut, unspecified Drug allergy (disorder) 06-12-20 [facility] Repository (1 source) peanut; Translations: [Peanuts] Food allergy (disorder) [facility] Repository (1 source) Sulfonamides (Antibiotic); Translations: [sulfa drugs] Propensity to adverse reactions (disorder) [facility] Repository Medications Current Medications Medication Drug Class(es) Dates Sig (Normalized) Sig (Original) acetaminophen 500 mg oral tablet (10 sources) take 2 tablets by mouth every six hours as needed acetaminophen (TYLENOL) 500 mg tablet Take 1,000 mg by mouth every 6 hours as needed. Active Comment on above: Take 1,000 mg by zohreh th every 6 hours as needed. ADULTS 50 PLUS 0.4-300-250 mg-mcg-mcg tab (10 sources) Start: 01-04-2021 take 1 tablet by mouth once daily ADULTS 50 PLUS 0.4-300-250 mg-mcg-mcg tab Take 1 tablet by mouth once daily. 01/04/2021 Active Start: 01-04-2021 take 1 tablet by zohreh th once daily ADULTS 50 PLUS 0.4-300-250 mg-mcg-mcg tab Take 1 tablet by mouth once daily. 0 01/04/2021 Active Comment on above: Take 1 tablet by zohreh th once daily. [id number] 200 actuat albuterol 0.09 mg/actuat metered dose inhaler (10 sources) beta2-Adrenergic Agonist take 2 puff(s) by inhalation every six hours as needed albuterol HFA (PROVENTIL HFA, VENTOLIN HFA) 90 mcg/actuation inhaler Inhale 2 Puffs as instructed every 6 hours as needed. Active Comment on above: Inhale 2 Puffs as in structed every 6 hours as needed. albuterol 0.833 mg/ml / ipratropium bromide 0.167 mg/ml inhalation solution (10 sources) Anticholinergic, beta2-Adrenergic Agonist Start: take 1 dose by inhalation four times daily ipratropium-albuter ol (DUONEB) 0.5 mg-3 mg(2.5 mg base)/3 mL nebu INHALE THE CONTENTS OF 1 VIAL THROUGH NEBULIZER QID 02/27/2020 Active Comment on above: INHALE THE CONTENTS OF 1 VIAL THROUGH NEBULIZER QID apixaban 5 mg oral tablet (10 sources) Factor Xa Inhibitor Start: take 1 tablet by mouth twice daily ELIQUIS 5 mg tab(s) Take 5 mg by mouth twice daily. 03/17/2019 Active Comment on above: Take 5 mg by mouth t wice daily. ARIPiprazole 15 mg oral tablet (2 sources) Atypical Antipsychotic take 1 tablet by mouth once daily ARIPiprazole (ABILIFY) 15 mg tablet Take 15 mg by mouth once daily. Active Comment on above: Take 15 mg by mouth once daily. atorvastatin 40 mg oral tablet (10 sources) HMG-CoA Reductase Inhibitor Start: atorvastatin (LIPITOR) 40 mg tablet Take 40 mg by mouth as directed. Takes 80mg in the AM and 40mg in the Pm 3 01/16/2019 Active Comment on above: Take 40 mg by mouth once daily. 1 ml benralizumab 30 mg/ml auto-injector (10 sources) Interleukin-5 Receptor alpha-directed Cytolytic Antibody Start: FASENRA PEN 30 mg/mL 02/21/2021 Active brexpiprazole 0.5 mg oral tablet (1 source) Atypical Antipsychotic Start: take 1 tablet by mouth once daily at bedtime REXULTI 0.5 mg tablet Take 0.5 mg by mouth daily at bedtime. 07/23/2024 Active cholecalciferol 0.05 mg oral capsule (10 sources) Vitamin D Start: VITAMIN D-3 2,000 unit cap 2,000 Units once daily. 5 03/01/2019 Active Comment on above: 2,000 Units once linda ly. dapagliflozin 5 mg oral tablet (10 sources) Sodium-Glucose Cotransporter 2 Inhibitor Start: 021 take 2 tablets by mouth once daily FARXIGA 5 mg tablet Take 10 mg by mouth once daily. 11/30/2020 Active Start: 11-30-2020 FARXIGA 5 mg t ablet Comment on above: Take 10 mg by mouth once daily. fluticasone propionate 0.05 mg/actuat metered dose nasal spray (10 sources) Corticosteroid Start: 9 fluticasone (FLONASE) 50 mcg/actuation nasal spray 2 Sprays once daily. 0 02/26/2019 Active Comment on above: 2 Sprays once daily. 60 actuat fluticasone propionate 0.5 mg/actuat / salmeterol 0.05 mg/actuat dry powder inhaler (10 sources) Corticosteroid, beta2-Adrenergic Agonist Start: 9 ADVAIR DISKUS 500-50 mcg/dose dsdv 1 Puff twice daily. 5 03/03/2019 Active Comment on above: 1 Puff twice daily. 30 actuat fluticasone furoate 0.1 mg/actuat / vilanterol 0.025 mg/actuat dry powder inhaler (2 sources) Corticosteroid, beta2-Adrenergic Agonist Start: 3 BREO ELLIPTA 100-25 mcg/dose inhaler 09/10/2023 Active furosemide 40 mg oral tablet (10 sources) Loop Diuretic Start: 9 take 1 tablet by mouth once daily furosemide (LASIX) 40 mg tablet Take 40 mg by mouth once daily. 3 01/16/2019 Active Start: 01-16-2019 take 3 tablets by mo ut once daily furosemide (LASIX) 20 mg tablet Take 60 mg by mouth once daily. 3 01/16/2019 Active Start: 01-16-2019 take 2 tablets by mo ut once daily furosemide (LASIX) 20 mg tablet Take 40 mg by mouth once daily. 3 01/16/2019 Active Start: 01-16-2019 [facility] furosemide (LASIX) 20 mg tablet Take 20 mg by mouth once daily. 3 01/16/2019 Active Comment on above: Take 20 mg by mouth once daily. Take 40 mg by mouth once daily. Take 60 mg by mouth once daily. loratadine 10 mg oral tablet (10 sources) Start: 05-19-2019 take 1 tablet by mouth once daily loratadine (CLARITIN) 10 mg tablet Take 10 mg by mouth once daily. 0 05/19/2019 Active Comment on above: Take 10 mg by mouth once daily. losartan potassium 50 mg oral tablet (10 sources) Angiotensin 2 Receptor Amber Start: 03-13-2019 take 1 tablet by mouth once daily losartan (COZAAR) 50 mg tablet Take 50 mg by mouth once daily. 3 03/13/2019 Active Start: 03-13-2019 take 1 tablet by zohreh th once daily losartan (COZAAR) 100 mg tablet Take 100 mg by mouth once daily. 3 03/13/2019 Active Comment on above: Take 100 mg by mouth once daily. metFORMIN hydrochloride 500 mg oral tablet (10 sources) Biguanide Start: 0 take 1 tablet by mouth twice daily metFORMIN (GLUCOPHAGE) 500 mg tablet TK 1 T PO BID 08/05/2020 Active Comment on above: TK 1 T PO BID metoprolol tartrate 50 mg oral tablet (10 sources) beta-Adrenergic Amber Start: 9 metoprolol tartrate, [...] a day. montelukast 10 mg oral tablet (10 sources) Leukotriene Receptor Antagonist Start: 0 take 1 tablet by mouth once daily montelukast (SINGULAIR) 10 mg tablet TK 1 T PO QD 03/08/2020 Active Comment on above: TK 1 T PO QD nystatin 100 unt/mg topical powder (10 sources) Polyene Antifungal Start: 0 NYSTOP powder Apply to affected area two times a day as needed. APPLY TO AFFECTED AREA 10/12/2019 Active Comment on above: Apply to affected ar ea twice daily as needed. APPLY TO AFFECTED AREA Apply to affected ar ea two times a day as needed. APPLY TO AFFECTED AREA ondansetron 8 mg oral tablet (10 sources) Serotonin-3 Receptor Antagonist Start: 9 take 1 tablet by mouth every eight hours as needed ondansetron (ZOFRAN) 8 mg tablet Take 1 tablet by mouth every 8 hours as needed for Nausea/Vomiting. 30 tablet 2 04/27/2019 Active Comment on above: Take 1 tablet by zohreh every 8 hours as needed for Nausea/Vomiting. pantoprazole 40 mg delayed release oral tablet (10 sources) Proton Pump Inhibitor take 1 tablet by mouth once daily pantoprazole DR (PROTONIX) 40 mg tablet Take 40 mg by mouth once daily. Active Comment on above: Take 40 mg by mouth once daily. potassium chloride 20 meq extended release oral tablet (20 sources) Start: 2 End: 3 take 2 tablets by mouth once daily potassium chloride 20 mEq TbER TAKE 2 TABLETS BY MOUTH EVERY DAY 180 tablet 10/11/2022 Active Start: 12-04-2021 take 2 tablets by mo [facility] once daily potassium chloride 20 mEq TbER TAKE 2 TABLETS BY MOUTH EVERY DAY 180 tablet 0 12/04/2021 Active Start: 02-16-2021 take 2 tablets by mo [facility] once daily potassium chloride ER (K-DUR, KLOR-CON) 20 mEq tablet Take 2 tablets by mouth once daily. 180 tablet 1 02/16/2021 Active Comment on above: Take 2 tablets by mo ut once daily. TAKE 2 TABLETS BY MO [facility] EVERY DAY predniSONE 10 mg oral tablet (10 sources) Start: 2019 take 3 tablets by mouth once daily in the morning predniSONE (DELTASONE) 10 mg tablet TK 3 TS PO QAM FOR 3 DAYS FOR ASTHMA FLARE 05/02/2020 Active Comment on above: TK 3 TS PO QAM FOR 3 DAYS FOR ASTHMA FLARE prochlorperazine 10 mg oral tablet (10 sources) Phenothiazine Start: 2018 take 1 tablet by mouth every six hours as needed prochlorperazine (COMPAZINE) 10 mg tablet Take 1 tablet by mouth every 6 hours as needed. 30 tablet 2 04/27/2019 Active Comment on above: Take 1 tablet by zohreh every 6 hours as needed. sertraline 50 mg oral tablet (10 sources) Serotonin Reuptake Inhibitor Start: 2018 take 1 tablet by mouth once daily sertraline (ZOLOFT) 50 mg tablet Take 50 mg by mouth once daily. 5 03/02/2019 Active Comment on above: Take 50 mg by mouth once daily. silver sulfADIAZINE 10 mg/ml topical cream (10 sources) Sulfonamide Antibacterial Start: 2019 silver sulfADIAZINE (SILVADENE,THERMAZENE ) 1 % cream Apply to affected area twice daily 11/06/2019 Active Comment on above: Apply to affected ar ea twice daily spironolactone 25 mg oral tablet (2 sources) Aldosterone Antagonist take 1 tablet by mouth once daily spironolactone (ALDACTONE) 25 mg tablet Take 25 mg by mouth once daily. Active Comment on above: Take 25 mg by mouth once daily. 60 actuat tiotropium 0.44459 mg/actuat inhalation spray (10 sources) Anticholinergic Start: 2018 take 1.25 ug by inhalation once daily SPIRIVA RESPIMAT 1.25 mcg/actuation mist Inhale 2 Puffs as instructed once daily. 12 03/12/2019 Active Comment on above: Inhale 2 Puffs as in structed once daily. WOMEN'S MULTIVITAMIN 18 mg-400 mcg- 500 mg-50 mcg tab (10 sources) Start: 2018 take 1 tablet by mouth once daily WOMEN'S MULTIVITAMIN 18 mg-400 mcg- 500 mg-50 mcg tab TK 1 T PO D 3 01/14/2019 Active Comment on above: TK 1 T PO D Problems Active Problems Problem Classification Problem Date Documented Da te Episodic/Chronic Asthma (1 source) Unspecified asthma, uncomplicated; Translations: [UNSPECIFIED ASTHMA UNCOMPLICATED] Onset: 07-25-2022 Chronic Cancer of breast (20 sources) Overlapping malignant neoplasm of female breast; [...] 07-25-2022 Chronic Other aftercare (1 source) Other retirement (current) drug therapy; Translations: [OTH INSIDE SALES LEAD CURRENT DRUG THERAPY] Onset: 07-25-2022 Episodic Other [...] Da te Episodic/Chronic Deficiency and other anemia (11 sources) Iron deficiency anemia secondary to inadequate [...] Test Name Value Interpretation Reference Range Facility Ambulatory Visit Summaryon 1 10-04-2023 Ambulatory Visit Summary Ambulatory Visit Summary KAYLIE SALOMON :1950 Visit Date:08/04/2024 Ambulatory Visit Instructions Your Diagnosis Limited mobility History of recent fall Poor balance Hypertensive heart and 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 Adult BMI 40.0-44.9 kg/sq m Major depressive disorder, recurrent episode, moderate Chronic respiratory failure with hypoxia History of breast cancer Non-smoker Obesity due to excess calories Your Care Team Attending Physician - Oh Wynne Primary Care Physician - Oh Wynne This Is Your Medications [place] [facility] [place]er) albuterol-ipratropium (albuterol-ipratropium Inh Juanis 3 mL UD) apixaban (apixaban 5 mg oral tablet) atorvastatin (atorvastatin 40 mg Tab) benralizumab (Fasenra Pen 30 mg/mL subcutaneous solution) brexpiprazole (Rexulti 0.5 mg oral tablet) cholecalciferol (Vitamin D3 2000 intl units oral Tab) dapagliflozin (dapagliflozin 10 mg oral tablet) fluticasone nasal (fluticasone Nasal 0.05 mg/inh [place]) fluticasone-vilanterol (Breo Ellipta 100 mcg-25 mcg inhalation powder) furosemide (furosemide 20 mg Tab) loratadine (loratadine 10 mg oral capsule) losartan (losartan 50 mg Tab) metformin (metformin 500 mg Tab) metoprolol (metoprolol tartrate 100 mg Tab) montelukast (montelukast 10 mg Tab) pantoprazole (Pantoprazole [address] Tab) potassium chloride (Potassium Chloride (Eqv-K-Tab) 20 mEq oral tablet, extended release) sertraline (sertraline 50 mg Tab) Procedures Performed CE - Cataract extraction (11/28/2022), Cardiac catheterization, Mastectomy of right breast. Discharge Vitals Temperature (Tympanic) 36.4 ???C Heart Rate (Peripheral) 95 Respiratory Rate 18 Blood Pressure 126/74 Height 164 cm Height 65 in Weight 115 kg Weight 253 lb BMI 42.76 What to do next Scheduled Follow-Up Appointments Saturday 1:40 PM EST With: Oh Wynne Where: [place] [id number] 11:00 AM EDT With: Where: [address] [address]- Medications What How Much When Why Instructions [facility] Prescription (rollator walker) See instructions Limited mobility History of recent fall Poor balance Chronic respiratory failure with hypoxia Dx: z74.09, Z91.81, R26.80 Printed Prescription Unchanged albuterol-ipratropium (albuterol-ipratropium Inh Juanis 3 mL UD) INHALE THE CONTENTS OF 1 VIAL THROUGH NEBULIZER FOUR TIMES DAILY Unchanged apixaban (apixaban 5 mg oral tablet) 1 Tablets By Mouth 2 times a day Unchanged atorvastatin (atorvastatin 40 mg Tab) 1 Tablets By Mouth Every day Unchanged benralizumab (Fasenra Pen 30 mg/ mL subcutaneous solution) Every 8 weeks Unchanged brexpiprazole (Rexulti 0.5 mg oral tablet) TAKE 1 TABLET BY MOUTH DAILY AT BEDTIME Unchanged cholecalciferol (Vitamin D3 2000 intl units oral Tab) 50 Microgram By Mouth Every day Unchanged dapagliflozin (dapagliflozin 10 mg oral tablet) 1 Tablets By Mouth Every day Unchanged fluticasone nasal (fluticasone Nasal 0.05 mg/ inh [place]) See instructions INSTILL 2 SPRAYS INTO EACH NOSTRIL DAILY Unchanged fluticasone-vilanterol (Breo Ellipta 100 mcg-25 mcg inhalation powder) 1 Puffs Inhalation Every day 30 dose unit Unchanged furosemide (furosemide 20 mg Tab) 2 Tablets By Mouth Every day Unchanged loratadine (loratadine 10 mg oral capsule) 1 Capsules By Mouth Every day Unchanged losartan (losartan 50 mg Tab) 1 Tablets By Mouth At bedtime Unchanged metformin (metformin 500 mg Tab) See instructions TAKE 1 TABLET BY MOUTH WITH BREAKFAST AND SUPPER Unchanged metoprolol (metoprolol tartrate 100 mg Tab) 1 Tablets By Mouth 2 times a day Unchanged montelukast (montelukast 10 mg Tab) 1 Tablets By Mouth Every day Unchanged pantoprazole (Pantoprazole [address] Tab) By Mouth Every day Unchanged potassium chloride (Potassium Chloride (Eqv-K-Tab) 20 mEq oral tablet, extended release) Unchanged sertraline (sertraline 50 mg Tab) 1 Tablets By Mouth Every day Allergies Peanuts (Hives) Pineapple (Unknown) Shrimp (Unknown) bacitracin clarithromycin conjugated estrogens penicillin (Unknown) sulfa drugs (Unknown) Problems Ongoing - Any problem that you are currently receiving treatment for. 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 Normal [facility] Family Medicine Office/Clini c Noteon 08-04-2024 Family Medicine Office/Clinic Note Family Medicine Office/Clinic Note Chief Complaint Office Visit HPI Staff Pt presents today face to face visit for rollator walker. NED 03/30/24 Pt fell a couple months ago. Broke her shoulder. Now trying to get insurance to approve walker. History of Present Illness pt presents today for need for rollator walker order due to limited mobility, heart failure, chronic respiratory failure Review of Systems PHQ Score Initial Depression Screen Score: 0 SCORE Physical Exam Vitals & Measurements T: 36.4 ???C(Tympanic) HR: 95(Peripheral) RR: 18 BP: 126/74 SpO2: 100% HT: 65 in HT: 164 cm WT: 115 kg WT: 253 lb BMI: 42.76 General: alert, no acute distress ENMT: oral mucosa moist, no pharyngeal erythema or exudate Cardiovascular: regular rate and rhythm, normal peripheral perfusion Respiratory: Lungs CTA, respirations non labored Extremities: no deformity, no trauma Neurological: oriented x 4, LOC appropriate for age, CN II-XII intact, motor strength equal & normal bilaterally, speech normal Assessment/Plan 1. Limited mobility (Z74.09: Other reduced mobility) pt is very afraid to walk around unsupported since injuring herself in recent fall. her balance is off and she feels her mobility is worsening. will provide order for rollator walker. she gets short of breath very easily. RTC in September. Ordered: Misc Prescription, rollator walker, See Instructions, 1 EA, 0, Dx: z74.09, Z91.81, R26.80, Supply 2. History of recent fall (Z91.81: History of falling) recent fall causing injury, fracture of shoulder Ordered: Misc Prescription, rollator walker, See Instructions, 1 EA, 0, Dx: z74.09, Z91.81, R26.80, Supply 3. Poor balance (R26.89: Other abnormalities of gait and mobility) see above Ordered: Misc Prescription, rollator walker, See Instructions, 1 EA, 0, Dx: z74.09, Z91.81, R26.80, Supply 4. 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 Adult BMI 40.0-44.9 kg/sq m, (Z68.41: Body mass index [BMI] 40.0-44.9, adult)BMI 40.0-44.9, adult BMI education given. pt is down 14 pounds since last visit 6. Major depressive disorder, recurrent episode, moderate (F33.1: Major depressive disorder, recurrent, moderate) stable at this time. psych changed her medication. is doing so much bettter 7. Chronic respiratory failure with hypoxia (J96.11: Chronic respiratory failure with hypoxia) stable at this time [place] [facility] [place]ator [place]er, See Instructions, 1 EA, 0, Dx: z74.09, Z91.81, R26.80, Supply 8. History of breast cancer (Z85.3: Personal history of malignant neoplasm of breast) in remission. last mammogram was WNL. Dr. Aragon has released her from oncology. I will manage her mammograms now 9. Non-smoker (Z78.9: Other specified health status) continue not smoking 11. Obesity due to excess calories (E66.09: Other obesity due to excess calories) see above Orders: nystatin topical, 1 zev, Topical, BID, 30 gm, Refill(s) 1, [id number], 164, cm, 03/08/23 12:17:00 EDT, Height/Length Dosing, 120, kg, 03/08/23 12:17:00 EDT, Weight Dosing Follow-up No qualifying data available Problem List/Past Medical History Ongoing Adult BMI 40.0-44.9 kg/sq m Allergic rhinitis BMI 40.0-44.9, adult Chronic respiratory failure with hypoxia Coronary arteriosclerosis in [place] artery Drooling Gastroesophageal reflux disease Heart failure, systolic and diastolic History of breast cancer History of recent fall Hyperlipidemia due to type 2 diabetes mellitus Hypertensive disorder Hypertensive heart and 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 Hypoxemia Iron deficiency anemia secondary to inadequate dietary iron intake 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 Normal [facility] Comment on above: Result Comment: Elec tronically Signed By: Oh Wynne\.br\Date and Time Signed: 08/04/24 12:55 EST Pre-Visit Planningon 024 Pre-Visit Planning Pre-Visit Planning From: Elif Cabrera To: Oh Wynne; Sent: 08/03/2024 10:20:22 EST Subject: Pre-Visit Planning Due Date/Time: 08/03/2024 10:20:00 EST Caller Name: KAYLIE SALOMON; Caller Number: , M Oscar Ratliff. During a pre-visit planning chart review, I noted the following documentation in the medical record: Current Problem List: Malignant neoplasm of lower-outer quadrant of female breast and Malignant neoplasm of unspecified site of unspecified female breast. 03/01/2023 Office Visit Note: Establish Care: History- hx of breast CA. 03/05/2024 Medicare Wellness Visit: Primary malignant neoplasm of breast (C50.919: Malignant neoplasm of unspecified site of unspecified female breast) Patient following as directed with Oncologist, Dr. Aragon. Patient Caregiver states it has been 5 years since patient had breast cancer. States they were told patient was in remission and the next appointment with Dr. Aragon 06/2024 should be patient's last appointment with him if everything still looks ok. 06/27/2023 Outside Mammography: *No Oncology Consult Notes located in [facility]. Based on your medical judgment, can you [...] feel free to contact me at extension [phone]. Thank you! Elif Cabrera LPN Clinical Mounting Machine Operator [address] [address] Extension: [phone] [email or web address] Normal [facility] CBC W Auto Differential pane l (Bld)on 07-30-2024 Basophils (Bld) [#/Vol] [facility] Basophils/100 WBC (Bld) 0.1 % [facility] Differential cell count method Nom (Bld) Auto [facility] Eosinophils (Bld) [#/Vol] [facility] Eosinophils/100 WBC (Bld) 0.0 % [facility] Erythrocyte distribution width (RBC) [Ratio] 17.4 % High 11.5 - 15.0 % [facility] Hematocrit (Bld) [Volume fraction] 34.2 % Low 36.0 - 46.0 % [facility] Hemoglobin (Bld) [Mass/Vol] 10.1 g/dL Low 11.5 - 15.5 g/dL [facility] Immature granulocytes (Bld) [#/Vol] 0.03 10*3/uL [facility] Immature granulocytes/100 WBC (Bld) 0.3 % [facility] Interpretation and review of laboratory results Abnormal [facility] Lymphocytes (Bld) [#/Vol] 0.82 10*3/uL Low [facility] Lymphocytes/100 WBC (Bld) 9.0 % [facility] MCH (RBC) [Entitic mass] 26.4 pg 26.0 - 34.0 pg [facility] MCHC (RBC) [Mass/Vol] 29.5 g/dL Low 30.5 - 36.0 g/dL [facility] MCV (RBC) [Entitic vol] 89.5 fL 80.0 - 100.0 fL [facility] Monocytes (Bld) [#/Vol] 1.05 10*3/uL High NINF [facility] Monocytes/100 WBC (Bld) 11.5 % [facility] Neutrophils (Bld) [#/Vol] 7.23 10*3/uL [facility] Neutrophils/100 WBC (Bld) 79.1 % [facility] Nucleated RBC (Bld) [#/Vol] NINF [facility] Nucleated RBC/100 WBC (Bld) [Ratio] 0.0 % /100 WBC [facility] Platelet mean volume (Bld) [Entitic vol] 9.6 fL 9.0 - 12.7 fL [facility] Platelets (Bld) [#/Vol] 290 10*3/uL [facility] RBC (Bld) [#/Vol] 3.82 10*6/uL Low 3.90 - 5.2 0 m/uL [facility] WBC (Bld) [#/Vol] 9.14 10*3/uL [facility] Basophils (Bld) [#/Vol] 10*3/uL Normal <0.11 [facility] Comment on above: Order Comment: Speci men Type: BLOOD SPECIMEN Ordering Facility: [facility] Address: [address] [place] [address] Performed By: #### 5 7021-8 #### [facility] CLIA [id number] [address] [place] [address] Basophils/100 WBC (Bld) 0.1 % Normal [facility] Comment on above: Order Comment: Speci men Type: BLOOD SPECIMEN Ordering Facility: [facility] Address: [address] [place] [address] Performed By: #### 5 7021-8 #### [facility] CLIA [id number] [address] [place] [address] Differential cell count method Nom (Bld) Auto Normal [facility] Comment on above: Order Comment: Speci men Type: BLOOD SPECIMEN Ordering Facility: [facility] Address: [address] [place] [address] Performed By: #### 5 7021-8 #### [facility] CLIA [id number] [address] [place] [address] Eosinophils (Bld) [#/Vol] 10*3/uL Normal <0.46 [facility] Comment on above: Order Comment: Speci men Type: BLOOD SPECIMEN Ordering Facility: [facility] Address: [address] [place] [address] Performed By: #### 5 7021-8 #### [facility] CLIA [id number] [address] [place] [address] Eosinophils/100 WBC (Bld) 0.0 % Normal [facility] Comment on above: Order Comment: Speci men Type: BLOOD SPECIMEN Ordering Facility: [facility] Address: [address] [place] [address] Performed By: #### 5 7021-8 #### [facility] CLIA [id number] [address] [place] [address] Erythrocyte distribution width (RBC) [Ratio] 17.4 % High 11.5-15.0 [facility] Comment on above: Order Comment: Speci men Type: BLOOD SPECIMEN Ordering Facility: [facility] Address: [address] [place] [address] Performed By: #### 5 7021-8 #### [facility] CLIA [id number] [address] [place] [address] Hematocrit (Bld) [Volume fraction] 34.2 % Low 36.0-46.0 [facility] Comment on above: Order Comment: Speci men Type: BLOOD SPECIMEN Ordering Facility: [facility] Address: [address] [place] [address] Performed By: #### 5 7021-8 #### [facility] CLIA [id number] [address] [place] [address] Hemoglobin (Bld) [Mass/Vol] 10.1 g/dL Low 11.5-15.5 [facility] Comment on above: Order Comment: Speci men Type: BLOOD SPECIMEN Ordering Facility: [facility] Address: [address] [place] [address] Performed By: #### 5 7021-8 #### [facility] CLIA [id number] [address] [place] [address] Immature granulocytes (Bld) [#/Vol] 0.03 10*3/uL Normal <0.10 [facility] Comment on above: Order Comment: Speci men Type: BLOOD SPECIMEN Ordering Facility: [facility] Address: [facility] [place] [address] Performed By: #### 5 7021-8 #### [facility] CLIA [id number] [address] [place] [address] Immature granulocytes/100 WBC (Bld) 0.3 % Normal [facility] Comment on above: Order Comment: Speci men Type: BLOOD SPECIMEN Ordering Facility: [facility] Address: [address] [place], [place] [address] Performed By: #### 5 7021-8 #### [facility] CLIA [id number] [address] [place] [address] Lymphocytes (Bld) [#/Vol] 0.82 10*3/uL Low 1.00-4.00 [facility] Comment on above: Order Comment: Speci men Type: BLOOD SPECIMEN Ordering Facility: [facility] Address: [address] [place] [address] Performed By: #### 5 7021-8 #### [facility] CLIA [id number] [address] [place] [address] 84783 Lymphocytes/100 WBC (Bld) 9.0 % Normal [facility] Comment on above: Order Comment: Speci men Type: BLOOD SPECIMEN Ordering Facility: [facility] Address: [address] [place] [address] Performed By: #### 5 7021-8 #### [facility] CLIA [id number] [address] [place] [address] MCH (RBC) [Entitic mass] 26.4 pg Normal 26.0-34.0 [facility] Comment on above: Order Comment: Speci men Type: BLOOD SPECIMEN Ordering Facility: [facility] Address: [address] [place] [address] Performed By: #### 5 7021-8 #### [facility] CLIA [id number] [address] [place] [address] MCHC (RBC) [Mass/Vol] 29.5 g/dL Low 30.5-36.0 [facility] Comment on above: Order Comment: Speci men Type: BLOOD SPECIMEN Ordering Facility: [facility] Address: [address] [place] [address] Performed By: #### 5 7021-8 #### [facility] CLIA [id number] [address] [place] [address]756 MCV (RBC) [Entitic vol] 89.5 fL Normal 80.0-100.0 [facility] Comment on above: Order Comment: Speci men Type: BLOOD SPECIMEN Ordering Facility: [facility] Address: [address] [place] [address] Performed By: #### 5 7021-8 #### [facility] CLIA [id number] [address] [place] [address] 68781 Monocytes (Bld) [#/Vol] 1.05 10*3/uL High <0.87 [facility] Comment on above: Order Comment: Speci men Type: BLOOD SPECIMEN Ordering Facility: [facility] Address: [address] [place] [address] Performed By: #### 5 7021-8 #### [facility] CLIA [id number] [address] [place] [address]20 Monocytes/100 WBC (Bld) 11.5 % Normal [facility] Comment on above: Order Comment: Speci men Type: BLOOD SPECIMEN Ordering Facility: [facility] Address: [address] [place] [address] Performed By: #### 5 7021-8 #### [facility] CLIA [id number] [address] [place] [address]179 Neutrophils (Bld) [#/Vol] 7.23 10*3/uL Normal 1.45-7.50 [facility] Comment on above: Order Comment: Speci men Type: BLOOD SPECIMEN Ordering Facility: [facility] Address: [address] [place] [address] [place] [address] Performed By: #### 5 7021-8 #### [facility] CLIA [id number] [address] [place] [address] 62452 Neutrophils/100 WBC (Bld) 79.1 % Normal [facility] Comment on above: Order Comment: Speci men Type: BLOOD SPECIMEN Ordering Facility: [facility] Address: [address] [place] [address] Performed By: #### 5 7021-8 #### [facility] CLIA [id number] [address] [place] [address]56 Nucleated RBC (Bld) [#/Vol] 10*3/uL Normal <0.01 [facility] Comment on above: Order Comment: Speci men Type: BLOOD SPECIMEN Ordering Facility: [facility] Address: [address] [place] [address] Performed By: #### 5 7021-8 #### [facility] CLIA [id number] [address] [place] [address] 76981 Nucleated RBC/100 WBC (Bld) [Ratio] 0.0 /100 WBC Normal [facility] Comment on above: Order Comment: Speci men Type: BLOOD SPECIMEN Ordering Facility: [facility] Address: [address] [place], [place] [address] Performed By: #### 5 7021-8 #### [facility] CLIA [id number] [address] [place] [address] 24792 Platelet mean volume (Bld) [Entitic vol] 9.6 fL Normal 9.0-12.7 [facility] Comment on above: Order Comment: Speci men Type: BLOOD SPECIMEN Ordering Facility: [facility] Address: [address] [place] [address] Performed By: #### 5 7021-8 #### [facility] CLIA [id number] [address] [place] [address] 77421 Platelets (Bld) [#/Vol] 290 10*3/uL Normal 150-400 [facility] Comment on above: Order Comment: Speci men Type: BLOOD SPECIMEN Ordering Facility: [facility] Address: [address] [place] [address] Performed By: #### 5 7021-8 #### [facility] CLIA [id number] [address] [place] [address] 77804 RBC (Bld) [#/Vol] 3.82 10*6/uL Low 3.90-5.20 [facility] Comment on above: Order Comment: Speci men Type: BLOOD SPECIMEN Ordering Facility: [facility] Address: [address] [place], [place] [address] Performed By: #### 5 7021-8 #### [facility] CLIA [id number] [address] [place] [address] 72571 WBC (Bld) [#/Vol] 9.14 10*3/uL Normal 3.70-11.00 [facility] Comment on above: Order Comment: Speci men Type: BLOOD SPECIMEN Ordering Facility: [facility] Address: [address] [place], [place] [address] Performed By: #### 5 7021-8 #### [facility] CLIA [id number] [address] [place] [address]22 CNOVSPon 07-30-2024 CNOVSP Visit (SP) Office ([place]) KAYLIE SALOMON ([id number]) 1950 F Date Time Provider Department 07/30/24 2:20 PM REGINALD ARAGON During your visit today, we recorded the following information about you: Temperature Pulse Respiration Blood pressure 97.3 degrees 81/minute 18/minute 96/63 Weight Height 114.3 kg 1.677 m Reginald Aragon MD 07/31/2024 6:27 AM Signed PATIENT NAME: Kaylie Salomon DATE: 07/30/2024 PRIMARY CARE PHYSICIAN: Dr. Landeros OTHER PHYSICIANS: Dr. Ramon Smith, Afua FERRARO, Dr. Brian Gil (Cardiology [facility]) Portions of this encounter note have been copied from the note from 09/12/2023 and has been updated where appropriate, and reflect my current medical decision making from today. CC: This is a 74 year old female with a history of breast cancer, seen for scheduled follow-up. INTERIM HISTORY: Since the patient's last visit here she apparently has had cardiac issues, including atrial fibrillation and CHF. She is currently managed by [facility] cardiology (Dr. Gil). Otherwise she has had no significant medical changes. She has noticed no changes in her breasts. No pain or other systemic symptoms. Overall she feels well. MEDICATIONS: REXULTI 0.5 mg tablet Take 0.5 mg by mouth daily at bedtime. BREO ELLIPTA 100-25 mcg/dose inhaler potassium chloride 20 mEq TbER TAKE 2 TABLETS BY MOUTH EVERY DAY FASENRA PEN 30 mg/mL potassium chloride ER (K-DUR, KLOR-CON) 20 mEq tablet Take 2 tablets by mouth once daily. FARXIGA 5 mg tablet Take 10 mg by mouth once daily. metFORMIN (GLUCOPHAGE) 500 mg tablet TK 1 T PO BID montelukast (SINGULAIR) 10 mg tablet TK 1 T PO QD NYSTOP powder Apply to affected area two times a day as needed. APPLY TO AFFECTED AREA albuterol HFA (PROVENTIL HFA, VENTOLIN HFA) 90 [...] mg tablet Take 40 mg by mouth as directed. Takes 80mg in the AM and 40mg in the Pm VITAMIN D-3 2,000 unit cap 2,000 Units once daily. fluticasone (FLONASE) 50 mcg/actuation nasal spray 2 Sprays once daily. furosemide (LASIX) 40 mg tablet Take 40 mg by mouth once daily. losartan (COZAAR) 50 mg tablet Take 50 mg by mouth once daily. metoprolol tartrate, short acting, (LOPRESSOR) 50 mg tablet Take 100 mg by mouth two times a day. sertraline (ZOLOFT) 50 mg tablet Take 50 mg by mouth once daily. ARIPiprazole (ABILIFY) 15 mg tablet Take 15 mg by mouth once daily. (Patient not taking: Reported on 07/30/2024) spironolactone (ALDACTONE) 25 mg tablet Take 25 mg by mouth once daily. (Patient not taking: Reported on 07/30/2024) ADULTS 50 PLUS 0.4-300-250 mg-mcg-mcg tab Take 1 tablet by mouth once daily. (Patient not taking: Reported on 03/14/2023) predniSONE (DELTASONE) 10 mg tablet TK 3 TS PO QAM FOR 3 DAYS FOR ASTHMA FLARE (Patient not taking: Reported on 09/12/2023) ipratropium-albuterol (DUONEB) 0.5 mg-3 mg(2.5 mg base)/3 mL nebu INHALE THE CONTENTS OF 1 VIAL THROUGH NEBULIZER QID (Patient not taking: Reported on 07/30/2024) silver sulfADIAZINE (SILVADENE,THERMAZENE) 1 % cream Apply to affected area twice daily (Patient not taking: Reported on 03/14/2023) prochlorperazine (COMPAZINE) 10 mg tablet Take 1 tablet by mouth every 6 hours as needed. (Patient not taking: Reported on 09/12/2023) ADVAIR DISKUS 500-50 mcg/dose dsdv 1 Puff twice daily. (Patient not taking: Reported on 03/14/2023) WOMEN'S MULTIVITAMIN 18 mg-400 mcg- 500 mg-50 mcg tab TK 1 T PO D (Patient not taking: Reported on 09/12/2023) SPIRIVA RESPIMAT 1.25 mcg/actuation mist Inhale 2 Puffs as instructed once daily. (Patient not taking: Reported on 03/14/2023) ALLERGIES: Clarithromycin, Conjugated Estrogens, Neosporin [Udopranl-Dnngptbbaf-V olymyxin], Paclitaxel, Peanut, Penicillins, and Sulfa (Sulfonamide [...] changes in hearing or vision, no nose ble (more content not included)... Normal [facility] Cancer Ag27-29 SerPl-aCncon 07-30-2024 Cancer Ag 27-29 Qn 31.0 [arb'U]/mL Normal <38.6 [facility] Comment on above: Order Comment: Speci men Type: BLOOD SPECIMEN Ordering Facility: [facility] Address: [address] [place] [address] Result Comment: The CA27.29 test was performed using the Siemens Solfoaur XP chemiluminometric immunoassay method. Results obtained with different assay methods or kits cannot be used interchangeably. Performed By: #### 1 7842-6 #### [facility] CLIA [id number] [address] [place] [address] [place] Comprehensive metabolic 2000 panelOrdered By: Rosa Elena Yi on 07-30-2024 Albumin [Mass/Vol] 4.0 g/dL 3.9 - 4.9 g/dL [facility] ALP [Catalytic activity/Vol] 95 U/L 34 - 123 U/L [facility] ALT [Catalytic activity/Vol] 19 U/L 7 - 38 U/L [facility] Anion gap [Moles/Vol] 10 mmol/L 8 - 15 mmol/L [facility] AST [Catalytic activity/Vol] 21 U/L 13 - 35 U/L [facility] Bilirubin [Mass/Vol] 0.4 mg/dL 0.2 - 1.3 mg/dL [facility] Calcium [Mass/Vol] 9.3 mg/dL 8.5 - 10. 2 mg/dL [facility] Chloride [Moles/Vol] 100 mmol/L 98 - 107 mmol/L [facility] CO2 [Moles/Vol] 31 mmol/L High 22 - 30 mmol/L [facility] Creatinine [Mass/Vol] 1.41 mg/dL High 0.58 - 0.96 mg/dL [facility] GFR/1.73 sq M.predicted among non-blacks MDRD (S/P/Bld) [Vol rate/Area] 39 mL/min/{1.73_m2} Low - PINF [facility] Comment on above: Estimated Glomerular Filtration Rate (eGFR) is calculated using the 2020 CKD-EPI creatinine equation. This equation utilizes serum creatinine, sex, and age as parameters. The creatinine assay has traceable calibration to isotope dilution-mass spectrometry. Refer to KDIGO guidelines for clinical interpretation. In patients with unstable renal function, e.g. those with acute kidney injury, the eGFR may not accurately reflect actual GFR. Glucose [Mass/Vol] 83 mg/dL 74 - 99 mg/dL [facility] Comment on above: The [place] Diabete s Association (ADA) provides guidance for cutoff values [...] Standards of Medical Care in Diabetes 2016, [place] Diabetes Association. Diabetes Care. 2016.39(Suppl 1). Interpretation and review of laboratory results Abnormal [facility] Potassium [Moles/Vol] 4.3 mmol/L 3.7 - 5.1 mmol/L [facility] Protein [Mass/Vol] 7.7 g/dL 6.3 - 8.0 g/dL [facility] Sodium [Moles/Vol] 141 mmol/L 136 - 144 mmol/L [facility] Urea nitrogen [Mass/Vol] 54 mg/dL High 7 - 21 mg/dL [facility] Comprehensive metabolic 2000 panelon 07-30-2024 Albumin [Mass/Vol] 4.0 g/dL Normal 3.9-4.9 [facility] Comment on above: Order Comment: Speci men Type: BLOOD SPECIMEN Ordering Facility: [facility] Address: [address] [place] [id number] Performed By: #### 2 4323-8 #### [facility] CLIA [id number] [address] [place] [address] ALP [Catalytic activity/Vol] 95 U/L Normal 34-123 [facility] Comment on above: Order Comment: Speci men Type: BLOOD SPECIMEN Ordering Facility: [facility] Address: [address] [place] [address] Performed By: #### 2 4323-8 #### [facility] CLIA [id number] [address] [place] [address]1338 ALT [Catalytic activity/Vol] 19 U/L Normal 7-38 [facility] Comment on above: Order Comment: Speci men Type: BLOOD SPECIMEN Ordering Facility: [facility] Address: [address] [place] [address] Performed By: #### 2 4323-8 #### [facility] CLIA [id number] [address] [place] [address]36 Anion gap [Moles/Vol] 10 mmol/L Normal 8-15 [facility] Comment on above: Order Comment: Speci men Type: BLOOD SPECIMEN Ordering Facility: [facility] Address: [address] [place] [address] Performed By: #### 2 4323-8 #### [facility] CLIA [id number] [address] [place] [address]343 AST [Catalytic activity/Vol] 21 U/L Normal 13-35 [facility] Comment on above: Order Comment: Speci men Type: BLOOD SPECIMEN Ordering Facility: [facility] Address: [address] [place] [address] Performed By: #### 2 4323-8 #### [facility] CLIA [id number] [address] [place] [address] Bilirubin [Mass/Vol] 0.4 mg/dL Normal 0.2-1.3 [facility] Comment on above: Order Comment: Speci men Type: BLOOD SPECIMEN Ordering Facility: [facility] Address: [address] [place] [address] Performed By: #### 2 4323-8 #### [facility] CLIA [id number] [address] [place] [address] Calcium [Mass/Vol] 9.3 mg/dL Normal 8.5-10.2 [facility] Comment on above: Order Comment: Speci men Type: BLOOD SPECIMEN Ordering Facility: [facility] Address: [address] [place] [address] Performed By: #### 2 4323-8 #### [facility] CLIA [id number] [address] [place] [address]19 Chloride [Moles/Vol] 100 mmol/L Normal 98-107 [facility] Comment on above: Order Comment: Speci men Type: BLOOD SPECIMEN Ordering Facility: [facility] Address: [address] [place] [address] Performed By: #### 2 4323-8 #### [facility] CLIA [id number] [address] [place] [address] 72895 CO2 [Moles/Vol] 31 mmol/L High 22-30 [facility] Comment on above: Order Comment: Speci men Type: BLOOD SPECIMEN Ordering Facility: [facility] Address: [address] [place], [place] [address] Performed By: #### 2 4323-8 #### [facility] CLIA [id number] [address] [place] [address]39 Creatinine [Mass/Vol] 1.41 mg/dL High 0.58-0.96 [facility] Comment on above: Order Comment: Speci men Type: BLOOD SPECIMEN Ordering Facility: [facility] Address: [address] [place] [address] Performed By: #### 2 4323-8 #### [facility] CLIA [id number] [address] [place] [address] 23089 Creatinine and Glomerular filtration rate.predicted panel (S/P/Bld) 39 mL/min/1.73m??? Low >=60 [facility] Comment on above: Order Comment: Speci maribeth Type: BLOOD SPECIMEN Ordering Facility: [facility] Address: [address] [place] [address] Result Comment: Violette mated Glomerular Filtration Rate [...] GFR. Performed By: #### 2 4323-8 #### [facility] CLIA [id number] [address] [place] [address] Glucose [Mass/Vol] 83 mg/dL Normal 74-99 [facility] Comment on above: Order Comment: Jennifer stahl Type: BLOOD SPECIMEN Ordering Facility: [facility] Address: [address] [place] [address] Result Comment: The Australian Diabetes Association (ADA) provides guidance for cutoff [...] Standards of Medical Care in Diabetes 2016, Australian Diabetes Association. Diabetes Care. 2016.39(Suppl 1). Performed By: #### 2 4323-8 #### [facility] CLIA [id number] [address] [place] [address] Potassium [Moles/Vol] 4.3 mmol/L Normal 3.7-5.1 [facility] Comment on above: Order Comment: Speci men Type: BLOOD SPECIMEN Ordering Facility: [facility] Address: [address] [place] [address] Performed By: #### 2 4323-8 #### [facility] CLIA [id number] [address] [place] [address] Protein [Mass/Vol] 7.7 g/dL Normal 6.3-8.0 [facility] Comment on above: Order Comment: Speci men Type: BLOOD SPECIMEN Ordering Facility: [facility] Address: [address] [place] [address] Performed By: #### 2 4323-8 #### [facility] CLIA [id number] [address] [place] [address] Sodium [Moles/Vol] 141 mmol/L Normal 136-144 [facility] Comment on above: Order Comment: Speci men Type: BLOOD SPECIMEN Ordering Facility: [facility] Address: [address] [place], [place] [address] Performed By: #### 2 4323-8 #### [facility] CLIA [id number] [address] [place] [address] Urea nitrogen [Mass/Vol] 54 mg/dL High 7-21 [facility] Comment on above: Order Comment: Speci men Type: BLOOD SPECIMEN Ordering Facility: [facility] Address: [address] [place] [address] Performed By: #### 2 4323-8 #### [facility] CLIA [id number] [address] [place] [address] 37on 06-25-2024 37 *Continue lasix 80mg in the AM and 40mg in the PM *Continue 2L or 64 oz of daily fluid allowance *Continue to monitor daily weights *Have labs done to follow-up on kidney function Normal [facility] Office Visiton 06-25-2024 Follow-up visit [id number] Kaylie Salomon 1950 Provider Department Center 06/25/2024 ROSA LÓPEZ Family History Problem Relation Age of Onset Heart failure Mother Family Status - Relation Status Age at Mother Level of Service:90759 [place] OFFICE/OUTPATIENT ESTABLISHED MOD MDM 30 MIN Normal [facility] 37on 06-17-2024 37 *Increase lasix to 80mg (2 tablets of 40mg) BID x3 days then take lasix 80mg in the AM and 40mg in the PM. Can take second dose around 4pm. *Limit fluid intake to 2L a day. *Limit sodium intake to 2L a day Normal [facility] Office Visiton 06-17-2024 Follow-up visit [id number] TishKaylie ortez 1950 Provider Department Center 06/17/2024 ROSA LÓPEZ Family History Problem Relation Age of Onset Heart failure Mother Family Status - Relation Status Age at Mother Level of Service:07763 [place] OFFICE/OUTPATIENT ESTABLISHED MOD MDM 30 MIN Normal [facility] Orders Onlyon 06-02-2024 Orders Only [id number] TishKaylie ortez 1950 Provider Department Center 06/02/2024 ELIF ACOSTAaren . Family History Problem Relation Age of Onset Heart failure Mother Family Status - Relation Status Age at Mother Normal [facility] BASIC METABOLIC PANLon 05-20 Anion gap [Moles/Vol] 10 mmol/L Normal 5-15 [facility] Comment on above: Performed By: #### 3 0934-4 #### [facility] ([id number]) [address] [facility], [place] [address] #### BMP #### [facility] ([id number]) [address] [place] [address], [address] [place] [address] Calcium [Mass/Vol] 9.5 mg/dL Normal 8.5-10.5 [facility] Comment on above: Performed By: #### 3 0934-4 #### [facility] ([id number]) [address] [place] [address] #### BMP #### [facility] ([id number]) [address], [address] [place] [address] Chloride [Moles/Vol] 96 mmol/L Low 98-109 [facility] Comment on above: Performed By: #### 3 0934-4 #### [facility] ([id number]) [address] [place] [address] #### BMP #### [facility] ([id number]) [address] [facility], [address] [place] [address] CO2 [Moles/Vol] 36 mmol/L High 22-32 [facility] Comment on above: Performed By: #### 3 0934-4 #### [facility] ([id number]) [address] [place] [address] #### BMP #### [facility] ([id number]) [address], [address] [place] [address] Creatinine [Mass/Vol] 1.35 mg/dL High 0.40-1.00 [facility] Comment on above: Result Comment: METH OD TRACEABLE TO IDMS STANDARD Performed By: #### 3 0934-4 #### [facility] ([id number]) [address] [place] [address] #### BMP #### [facility] ([id number]) [address], [address] [place] [address] GFR/1.73 sq M.predicted among non-blacks MDRD (S/P/Bld) [Vol rate/Area] 41 mL/min/{1.73_m2} Low >59 [facility] Comment on above: Result Comment: Reported eGFR is based on the CKD-EPI 2020 equation that does not use a race coefficient. Performed By: #### 3 0934-4 #### [facility] ([id number]) [address] [place] [address] #### BMP #### [facility] ([id number]) [address], [address] [place] [address] Glucose [Mass/Vol] 98 mg/dL Normal 65-99 [facility] Comment on above: Performed By: #### 3 0934-4 #### [facility] ([id number]) [address] [place] [address] #### BMP #### [facility] ([id number]) [address] [place] [address] Potassium [Moles/Vol] 4.1 mmol/L Normal 3.5-5.0 [facility] Comment on above: Performed By: #### 3 0934-4 #### [facility] ([id number]) [address] [place] [address] #### BMP #### [facility] ([id number]) [address], [address] [place] [address] Sodium [Moles/Vol] 142 mmol/L Normal 134-146 [facility] Comment on above: Performed By: #### 3 0934-4 #### [facility] ([id number]) [address] [place] [address] #### BMP #### [facility] ([id number]) [address], [address] [place] [address] Urea nitrogen [Mass/Vol] 30 mg/dL High 5-27 [facility] Comment on above: Performed By: #### 3 0934-4 #### [facility] ([id number]) [address] [place] [address] #### BMP #### [facility] ([id number]) [address] [place] [address] [address] [place] [address] Natriuretic peptide B [Mass/ Vol]on 05-20-2024 Natriuretic peptide B (Bld) [Mass/Vol] 359 pg/mL High <100.0 [facility] Comment on above: Performed By: #### 3 0934-4 #### [facility] ([id number]) [address] [place] [address], [place] [address] #### BMP #### [facility] ([id number]) [address] [place] [address] [address] [place] [address] Office Visiton 05-13-2024 Follow-up visit [id number] Kaylie Salomon 1950 F Date Provider Department Center 05/13/2024 ROSA LÓPEZ Hos Family History Problem Relation Age of Onset Heart failure Mother Family Status - Relation Status Age at Mother Level of Service:60749 [place] OFFICE/OUTPATIENT ESTABLISHED MOD MDM 30 MIN Reason for Visit and Comments: Atrial Fibrillation [80] Congestive Heart Failure [127] Normal [facility] MICROALBUMIN - ALBUMIN:CREAT ININE URINE RATIOon 05-06-2024 ALB/CREAT RATIO 42.4 mg/g creat High 0.0-30.0 [facility] Comment on above: Performed By: #### M ALBU #### [facility] ([id number]) [address] [place] [address] Albumin DL <= 20 mg/L (U) [Mass/Vol] 0.8 mg/dL Normal 0.0-1.9 [facility] Comment on above: Performed By: #### M ALBU #### [facility] ([id number]) [address] [place] [address], [facility] [address] [place] [address] URINE CREAT 18.87 mg/dL Normal [facility] Comment on above: Performed By: #### M ALBU #### [facility] ([id number]) [address] [place] [address] [address] [place] [address] PROTEIN CREAT RATIOon 2023 RANDOM URINE PROTEIN 60 mg/L Normal <120 [facility] Comment on above: Performed By: #### U PCR #### [facility] ([id number]) [address], [address] [place] [address] U/PRO/ANALYSIS LEAD RATIO CALC 0.32 High <0.2 [facility] Comment on above: Result Comment: Neph rotic Syndrome is associated with ratios >3.5 Performed By: #### U PCR #### [facility] ([id number]) [address] [facility], [facility] [address] [place] [address] URINE CREATININE,RDM 18.77 mg/dL Normal [facility] Comment on above: Performed By: #### U PCR #### [facility] ([id number]) [address] [facility], [facility] [address] [place] [address] 36on 05-05-2024 36 Patient's caregiver called back and I relayed message per Mirna to restart PM dose of lasix and have labs today. She will also have repeat labs on Saturday and will see Shayy on Saturday, 05/13. Lab orders faxed to [facility] in [place]. Normal [facility] HGB A1C (GLYCO-HGB)on 2023 Glucose [Mass/Vol] 134 mg/dL Normal [facility] Comment on above: Performed By: #### H A1C, 79682-9 #### [facility] ([id number]) [address] [place] [address] HbA1c (Bld) [Mass fraction] 6.3 % High 4.4-5.6 [facility] Comment on above: Result Comment: NOTE ADA Guidelines Result HgbA1c Normal : less than 5.7 % Prediabetes : 5.7 % to 6.4 % Diabetes : > 6.4 % Use with caution in patients with abnormal hemoglobin variants as the half-life of red blood cells and in vivo glycation rates are affected. Performed By: #### H A1C, 63691-9 #### [facility] ([id number]) [address] [facility], [address] [place] [address] Lipid 1996 panelon 4 Cholesterol [Mass/Vol] 95 mg/dL Low 150-200 [facility] Comment on above: Performed By: #### H A1C, 28793-7 #### [facility] ([id number]) [address] [facility], [address] [place] [address] Cholesterol in HDL [Mass/Vol] 50 mg/dL Normal >39 [facility] Comment on above: Result Comment: HDL <40 mg/dL - High Risk HDL > or = 40mg/dL- Desirable HDL >60 mg/dL - Negative Risk Performed By: #### H A1C, 45822-8 #### [facility] ([id number]) [address], [address] [place] [address] Cholesterol in LDL [Mass/Vol] 30 mg/dL Normal <130 [facility] Comment on above: Result Comment: LDL <100 mg/dL - Desirable LDL >160 mg/dL - High Risk Performed By: #### H A1C, 70039-7 #### [facility] ([id number]) [address], [address] [place] [address] Cholesterol in VLDL [Mass/Vol] 15 mg/dL Normal 0-30 [facility] Comment on above: Performed By: #### H A1C, 22913-6 #### [facility] ([id number]) [address], [address] [place] [address] CHOLESTEROL:HDL 1.9 Normal 1.0-5.0 [facility] Comment on above: Performed By: #### H A1C, 81993-0 #### [facility] ([id number]) [address], [address] [place] [address] Triglyceride [Mass/Vol] 73 mg/dL Normal 27-150 [facility] Comment on above: Performed By: #### H A1C, 38099-7 #### [facility] ([id number]) [address], [address] [place] [address] Orders Onlyon 05-05-2024 Orders Only [id number] Kaylie Salomon A 1950 F Date Provider Department Center 05/05/2024 Bouchra-RADHA JARA AFUA Hardin Family History Problem Relation Age of Onset Heart failure Mother Family Status - Relation Status Age at Mother Normal [facility] Orders Onlyon 05-04-2024 Orders Only [id number] Kaylie Salomon A 1950 F Date Provider Department Center 05/04/2024 ELIF ACOSTA [facility] Family History Problem Relation Age of Onset Heart failure Mother Family Status - Relation Status Age at Mother Normal [facility] Family Medicine Office/Clini c Noteon 03-30-2024 Family [...] provided. she will have it done at [facility] in [place]. denies needs at this time. RTC 6 months 2. Hypertensive disorder (I10: Essential (primary) hypertension) BP at goal today 3. BMI 45.0-49.9, adult (Z68.42: Body mass index [BMI] 45.0-49.9, adult) BMI educatin given 4. Non-smoker (Z78.9: Other specified health status) continue not smoking Orders: dapagliflozin, 5 mg = 1 tab(s), Oral, Daily, # 90 tab(s), Refills(s) 3, Pharmacy: [facility] #[id number] predniSONE, 30 mg = 3 tab(s), Oral, Once, take 3 tabs in am for 3 days for asthma flare up, # 9 tab(s), Refills(s) 1, Pharmacy: [facility] #[id number] Follow-up No qualifying data available Problem List/Past Medical History Ongoing Adult BMI 40.0-44.9 kg/sq m Allergic rhinitis Chronic respiratory failure with hypoxia Coronary arteriosclerosis in [place] artery Drooling Gastroesophageal reflux disease Heart failure, [...] 100 in l (more content not included)... Normal [facility] Comment on above: Result Comment: Elec tronically Signed By: Oh Wynne\.br\Date and Time Signed: 03/30/24 12:26 EDT Home Health Recordson 2023 Home Health Records [id number]#1.0 0TIFF Normal [facility] Pre-Visit Planningon 024 Pre-Visit Planning - From: Elif Cabrera To: Oh Wynne; Sent: 03/04/2024 15:13:04 EDT Subject: Pre-Visit Planning Due Date/Time: 03/04/2024 15:13:00 EDT Caller Name: KAYLIE SALOMON; Caller Number: Zee , M Al Oh. During a pre-visit planning chart review, I noted the following documentation in the medical record: Current Problem List: Drooling and Tremor of both hands. Current Medication List: sertraline 50 mg daily. 01/09/2024 Office Visit Note: Tremor of both hands (R25.1: Tremor, unspecified) patient and caregiver states her psychiatrist from [facility] started her on ability due to audible [...] Score or Psychiatry Consult Notes located in [facility]. Based on your medical judgment, can you [...] please feel free to contact me at [phone]. Thank you! Elif Cabrera LPN From: Oh Wynne To: Elif Cabrera; Sent: 03/06/2024 08:18:11 EDT Subject: RE: Pre-Visit Planning Caller Name: AIMEAMARJITKAYLIE; Caller Number: , M major depressive disorder, recurrent moderate Normal [address] [facility] Ambulatory Visit Summaryon 0 03-05-2024 Ambulatory Visit Summary TISHLUISAMARJIT HARVEYKAYLIE :1950 Visit Date:03/05/2024 Ambulatory Visit Instructions Your [...] Oh Wynne This Is Your Medications List [facility] Prescription (TRUE METRIX BLOOD GLUCOSE [...] 11:20 AM EDT With: Oh Wynne Where: [facility] Invalid Interpretation Code [address] [place] [address]- \.br\ You Need to Complete the Following\.br \ HgbA1c, Blood, Routine collect, 03/05/24, Order for future visit, Lab Collect, Type 2 diabetes mellitus with stage 3b chronic kidney disease [facility] Office/Clini c Noteon 03-05-2024 Family Medicine [...] of clutter to prevent tripping and/or falling. [place] Advance Directives reviewed. Documents remain at home/ and in patient chart. Patient gets assistance with ADL's and Instrumental ADL's, patient has caregivers that come and stay with her for several hours each day and a daily visiting nurse from [facility]. Cognitive screening completed with memory and clock [...] patient has a visiting RN everyday through [facility]. Medicare provides yearly screening for alcohol and [...] a visiting nurse that comes daily from [facility] and follows with Cardiology, Dr. Gil, every 6 months and more as needed. Last office visit 12/11/23 visit summary notes available in chart for PCP review. Per caregiver patient is going to [facility] to get labs done for cardiology today. 3. Severe persistent asthma, uncomplicated (J45.50: Severe persistent asthma, uncomplicated) Patient takes inhalers as directed, uses PRN nebulizer treatments and inhaler when needed. Follows Dr. Castellon, [facility], yearly and as needed. Patient remains on R/A, o2Sat 92% today, respirations 20, non-labored. Will follow up as needed with Dr. Castellon. 4. Chronic respiratory failure with hypoxia (J96.11: Chronic respiratory failure with hypoxia) See #3. 5. Paroxysmal atrial fibrillation (I48.0: Paroxysmal atrial fibrillation) Follows Speech Therapy Assistant, Dr. Gil every 6 months and as needed. Denies SOB, chest pain or irregular heart rhythm. Manages medications, Eliquis and Metoprolol with office visits. Cardiac-/DASH nutritional education handout reviewed with patient and provided. Tries following healthy dietary intake. Last visit office notes are available in medical (more content not included)... Normal [facility] Comment on above: Result Comment: Elec tronically Signed By: Oh Wynne\.br\Date and Time Signed: 03/05/24 13:34 EDT\.br\Electronically Co-Signed By: Myah Ballard LPN\.br\Date and Time Co-Signed: 03/05/24 12:43 EDT Lab Reportson 03-05-2024 Lab Reports [id number]#1.00 TIFF [facility] Patient Educationon 03-05-20 24 Patient Education Endocrinology Diabetes Mellitus and Foot Care Foot care is an important part of your health, especially when you have diabetes. Diabetes may cause you to have problems because of poor blood flow (circulation) to your feet and legs, which can cause your skin to: ? Become thinner and yolk spray drier. ? Break more easily. ? Heal [...] immediately. Where to find more information ? [place] Diabetes Association: www.diabetes.org ? Association of Diabetes [...] provider. Document Revised: 04/06/2021 Document Reviewed: 04/06/2021 [employer] Patient Education ? 2022 [employer] Diabetes Mellitus and Nutrition, Adult When you have diabetes, or diabetes mellitus, it is very important to (more content not included)... Normal [facility] Pre-Visit Planningon 024 Pre-Visit Planning - From: Elif Cabrera To: Oh Wynne; Sent: 03/04/2024 15:22:41 EDT Subject: Pre-Visit Planning Due Date/Time: 03/04/2024 15:22:00 EDT Caller Name: KAYLIE SALOMON; Caller Number: , Oscar Ratliff. During a pre-visit planning [...] feel free to contact me at extension [phone]. Thank you! Elif Cabrera LPN From: Oh Wynne To: Elif Cabrera; Sent: 03/05/2024 08:17:33 EDT Subject: RE: Pre-Visit Planning Caller Name: KAYLIE SALOMON; Caller Number: Zee , Alesia chronic kidney disease stage 3b Normal [address] [facility] RAD - CT Reporton 03-05-2024 RAD - CT Report [id number] 0TIFF Normal [facility] Screenson 03-05-2024 Screens [id number]#1.0 0TIFF Normal [facility] Pre-Visit Planningon Pre-Visit Planning - From: Elif Cabrera To: [...] Mammography: *No Oncology Consult Notes located in [facility]. Based on your medical judgment, can you [...] feel free to contact me at extension [phone]. Thank you! Elif Caberra LPN Invalid Interpretation Code [address] [facility] Orders Onlyon 02-25-2024 Orders Only [id number] Kaylie Salomon 1950 Provider Department Center 02/25/2024 ELIF ACOSTA Nuris [facility] Family History Problem Relation Age of Onset Heart failure Mother Family Status - Relation Status Age at Mother Normal [facility] Office Visiton 02-11-2024 Follow-up visit [id number] Kaylie Salomon [place] 1950 Provider Department Center 02/11/2024 BRIAN DIXON [facility] Family History Problem Relation Age of Onset Heart failure Mother Family Status - Relation Status Age at Mother Level of Service:69738 [place] OFFICE/OUTPATIENT ESTABLISHED LOW MDM 20 MIN Normal [facility] [id number] 02-07-2024 [id number] PRE OP INSTRUCTIONS GIVEN TO ELECTRONICS MECHANIC RUDDY [phone] ARRIVAL TIME 1030 HOLD ELIQUIS 02/10 MEDICATIONS TO TAKE DAY OF SURGERY WITH SIP OF WATER ALBUTEROL INHALER BREO ELLIPTA METOPROLOL PROTONIX RUDDY AGREES TO BRING PT TO [facility] FOR LABS ON 02/10 ASKED NELLIE Trevino RN TO SEND LAB ORDERS TO [facility] ON 02/05 HOLD VITAMINS AND SUPPLEMENTS 5 DAYS PRIOR TO PROCEDURE HOLD ALL ANTI INFLAMMATORIES ETC:MOTRIN, ADVIL, ALEVE, FOR 5 DAYS PRIOR TO PROCEDURE IF YOU ARE GOING HOME AFTER YOUR SURGERY OR PROCEDURE, FOR YOUR SAFETY, YOUR SURGERY WILL BE CANCELLED IF BOTH OF THE FOLLOWING ARE NOT AVAILABLE: 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 Do not wear perfume, make-up, nail telugu, or lotions on the day of your [...] need to make any changes, please call [phone]. Notify your surgeon if you develop any illness such as a cold, cough, fever, sore throat or vomiting between now and your surgery. Thank you for entrusting us with your care. [facility] Surgical Services Team Normal [facility] Orders Onlyon 02-07-2024 Orders Only [id number] Kaylie Salomon 1950 F Date Provider Department Center 02/07/20241986-FILIPE ANSARI [facility] IN [facility] Family History Problem Relation Age of Onset Heart failure Mother Family Status - Relation Status Age at Mother Normal [facility] Home Health Recordson 2023 Home Health Records [id number]#1.0 0TIFF Normal [facility] Ambulatory Visit Summaryon 0 01-09-2024 Ambulatory Visit Summary KAYLIE SALOMON DOB:1950 Visit Date:01/09/2024 Ambulatory Visit Instructions Your Diagnosis Tremor of both hands Drooling Your Care Team Attending Physician - Oh Wynne Primary Care Physician - Oh Wynne This Is Your Medications List [facility] Prescription (TRUE METRIX BLOOD GLUCOSE TEST STRP) [...] Follow-Up Appointments 2023 11:00 AM EDT Where: [facility] [place] Normal [facility] Family Medicine Office/Clini c Noteon 01-09-2024 Family [...] patient and caregiver states her psychiatrist from [facility] started her on ability due to audible [...] (chronic obstructive pulmonary disease) Coronary arteriosclerosis in [place] artery Diabetes mellitus type II, non insulin [...] 50 mcg, (more content not included)... Normal [facility] Comment on above: Result Comment: Elec tronically Signed By: Con CASTAÑEDA, Oh Fuentes\.br\Date and Time Signed: 01/09/24 12:53 EDT BASIC METABOLIC PANELon 04-0 Anion gap [Moles/Vol] 12 mmol/L Normal 7-20 [facility] Comment on above: Performed By: #### L AB15 #### [facility] (BEAKER) [address] [place] [address] Calcium [Mass/Vol] 9.4 mg/dL Normal 8.6-10.3 [facility] Comment on above: Performed By: #### L AB15 #### [facility] (BEAKER) [address] [place] [address] Chloride [Moles/Vol] 98 mmol/L Normal 98-107 [facility] Comment on above: Performed By: #### L AB15 #### [facility] (BEAKER) [address] [place] [address] CO2 [Moles/Vol] 34 mmol/L High 21-31 [facility] Comment on above: Performed By: #### L AB15 #### [facility] (BEAKER) [address] [place] [address] Creatinine [Mass/Vol] 1.63 mg/dL High 0.60-1.20 [facility] Comment on above: Performed By: #### L AB15 #### [facility] ([facility]) [address] [place] [address] GLOMERULAR FILTRATION RATE ML/MIN/1.73 SQ M.PREDICTED 32.5 mL/min/1.73m*2 Low >60.0 [facility] Comment on above: Result Comment: The [facility]???s estimated glomerular filtration rate (eGFR) will no [...] individuals. Performed By: #### L AB15 #### [facility] ([facility]) [address] [place] [address] Glucose [Mass/Vol] 84 mg/dL Normal 70-100 [facility] Comment on above: Performed By: #### L AB15 #### [facility] ([facility]) [address] [place] [address] Potassium [Moles/Vol] 4.2 mmol/L Normal 3.5-5.1 [facility] Comment on above: Performed By: #### L AB15 #### [facility] ([facility]) [address] [place] [address] Sodium [Moles/Vol] 140 mmol/L Normal 136-145 [facility] Comment on above: Performed By: #### L AB15 #### [facility] ([facility]) [address] [place] [address] Urea nitrogen [Mass/Vol] 49 mg/dL High 7-25 [facility] Comment on above: Performed By: #### L AB15 #### [facility] ([facility]) [address] [place] [address] UREA NITROGEN/CREATININE (MASS RATIO) IN SER/PLAS 30.1 Normal [facility] Comment on above: Performed By: #### L AB15 #### [facility] ([facility]) [address] [place] [address] CBCon 01-07-2024 Erythrocyte distribution width (RBC) [Ratio] 15.9 % High 11.5-15.0 [facility] Comment on above: Performed By: #### L AB294 ####[facility] ([facility])[address] [place] [address] ERYTHROCYTE MEAN CORPUSCULAR HEMOGLOBIN CONCENTRATION (G/DL) BY AUTOMATED 30.8 g/dL Low 32.0-35.0 [facility] Comment on above: Performed By: #### L AB294 ####[facility] ([facility])[address] [place] [address] Hematocrit (Bld) [Volume fraction] 35.4 % Low 36.0-48.0 [facility] Comment on above: Performed By: #### L AB294 ####[facility] ([facility])[address] [place] [address] Hemoglobin (Bld) [Mass/Vol] 10.9 g/dL Low 12.0-15.0 [facility] Comment on above: Performed By: #### L AB294 ####[facility] ([facility])[address] [place] [address] MCH (RBC) [Entitic mass] 29.6 pg Normal 27.0-33.0 [facility] Comment on above: Performed By: #### L AB294 ####[facility] ([facility])[address] [place] [address] MCV (RBC) [Entitic vol] 96.2 fL Normal 82.0-98.0 [facility] Comment on above: Performed By: #### L AB294 ####[facility] ([facility])[address] [place] [address] PLATELETS (10*3/UL) IN BLOOD AUTOMATED COUNT 244 10*3/uL Normal 150-400 [facility] Comment on above: Performed By: #### L AB294 ####[facility] ([facility])[address] [place] [address] RBC (Bld) [#/Vol] 3.68 10*6/uL Low 3.80-5.00 [facility] Comment on above: Performed By: #### L AB294 ####[facility] ([facility])[address] [place] [address] WBC (Bld) [#/Vol] 7.68 10*3/uL Normal 4.00-10.60 [facility] Comment on above: Performed By: #### L AB294 ####[facility] ([facility])[address] [place] [address] CTA CHEST W IV CONTRASTon CTA CHEST [...] in further evaluation. Electronically signed: Steven Solomon. Maira Cook Invalid Interpretation Code [facility] Comment on above: Order Comment: Doroteo keith schedule prior to February 12 Labon 01-07-2024 Lab [id number] Kaylie Salomon 1950 F Date Provider Department Center 01/07/2024 2245-[facility] OPD LAB RESOURCE [facility] OPD IN Medical C Family History Problem Relation Age of Onset Heart failure Mother Family Status - Relation Status Age at Mother Normal [facility] Orders Onlyon 01-07-2024 Orders Only [id number] Kaylie Salomon 1950 Date Provider Department Center 01/07/2024 241-[facility] C[facility] Jason Duncan Family History Problem Relation Age of Onset Heart failure Mother Family Status - Relation Status Age at Mother Normal [facility] Orders Only [id number] Kaylie Salomon 1950 Date Provider Department [place] 01/07/2024 120-ELIF ESPINOZA. Family History Problem Relation Age of Onset Heart failure Mother Family Status - Relation Status Age at Mother Normal [facility] Prep for Procedureon 024 Prep for Procedure [id number] Kaylie Salomon 1950 Provider Department [place] 01/03/2024 1987-FILIPE ANSARI [facility] V[facility] LAB UT HeartVAS Family History Problem Relation Age of Onset Heart failure Mother Family Status - Relation Status Age at Mother Normal [facility] Consultation Noteon 12-13-19 24 Consultation Note [id number]#1 .00TIFF [facility] Orders Onlyon 12-13-2023 Orders Only [id number] Kaylie Salomon 1950 Provider Department Center 12/13/[address] Family History Problem Relation Age of Onset Heart failure Mother Family Status - Relation Status Age at Mother Normal [facility] Office Visiton 12-11-2023 Follow-up visit [id number] Ruiz 1950 Date Provider Department Center 12/11/2023 120ELIF LINDQUIST AFUA [facility] Family History Problem Relation Age of Onset Heart failure Mother Family Status - Relation Status Age at Mother Level of Service:31375 [place] OFFICE/OUTPATIENT ESTABLISHED MOD MDM [address] [facility] Plan of Care - PT/OT/Speecho n 12-05-2023 Plan of Care - PT/OT/Speech [id number]#1.0 0TIFF [facility] Telephoneon 11-29-2023 Telephone [id number] Kaylie Salomon 1950 F Date Provider Department Center 11/29/2023 BRIAN DIXON Mckenzie Lashawn Family History Problem Relation Age of Onset Heart failure Mother Family Status - Relation Status Age at Mother Reason for Visit and Comments: Med Refill [[id number]] Normal [facility] Physician Referralon 024 Physician Referral [id number] 22 [id number]#1.0 0TIFF Normal [facility] Home Health Recordson 2023 Home Health Records [id number] 20 [id number]#1.0 0TIFF Normal [facility] Cardiovascular Reporton Cardiovascular Report [id number]#1.0 0TIFF Normal [facility] Lab Reportson 11-01-2023 Lab Reports [id number]#1.0 0TIFF Normal [facility] 36on 10-31-2023 36 I called Miguelina and told her thyroid labs abnormal. I confirmed PCP. The PCP office is currently closed and unable to get fax number. I will get sent next Saturday when I am back in the office. Normal [facility] BASIC METABOLIC PANELon Anion gap [Moles/Vol] 9 mmol/L Normal 7-20 [facility] Comment on above: Performed By: #### L AB15 #### [facility] (BEAKER) [address] [place] [address] Calcium [Mass/Vol] 9.4 mg/dL Normal 8.6-10.3 [facility] Comment on above: Performed By: #### L AB15 #### [facility] (BEAKER) [address] [place] [address] Chloride [Moles/Vol] 101 mmol/L Normal 98-107 [facility] Comment on above: Performed By: #### L AB15 #### [facility] [address] [place] [address] CO2 [Moles/Vol] 35 mmol/L High 21-31 [facility] Comment on above: Performed By: #### L AB15 #### [facility] ([facility]) [address] [place] [address] Creatinine [Mass/Vol] 1.25 mg/dL High 0.60-1.20 [facility] Comment on above: Performed By: #### L AB15 #### [facility] ([facility]) [address] [place] [address] GLOMERULAR FILTRATION RATE ML/MIN/1.73 SQ M.PREDICTED 44.9 mL/min/1.73m*2 Low >60.0 [facility] Comment on above: Result Comment: The [facility]???s estimated glomerular filtration rate (eGFR) will no [...] individuals. Performed By: #### L AB15 #### [facility] ([facility]) [address] [place] [address] Glucose [Mass/Vol] 125 mg/dL High 70-100 [facility] Comment on above: Performed By: #### L AB15 #### [facility] ([facility]) [address] [place] [address] Potassium [Moles/Vol] 4.2 mmol/L Normal 3.5-5.1 [facility] Comment on above: Performed By: #### L AB15 #### [facility] ([facility]) [address] [place] [address] Sodium [Moles/Vol] 141 mmol/L Normal 136-145 [facility] Comment on above: Performed By: #### L AB15 #### [facility] (BEAKER) [address] [place] [address] Urea nitrogen [Mass/Vol] 42 mg/dL High 7-25 [facility] Comment on above: Performed By: #### L AB15 #### [facility] ([facility]) [address] [facility] [place] [address] UREA NITROGEN/CREATININE (MASS RATIO) IN SER/PLAS 33.6 Normal [facility] Comment on above: Performed By: #### L AB15 #### [facility] ([facility]) [address] [facility] [place] [address] HPon 10-31-2023 [facility] Electrophysiology Consult Note Reason for visit: A-fib, [...] seafood Sulfa (Sulfonamide Antibiotics) Other and Unknown Slmkgxgd-Lueckowcjr-Jw lymyxin Rash Penicillins Rash Weight: 122kg Visit [...] EVERY DAY (more content not included)... Normal [facility] MAGNESIUMon 10-31-2023 Magnesium [Mass/Vol] 2.0 mg/dL Normal 1.9-2.7 [facility] Comment on above: Performed By: #### L AB103 ####[facility] ([facility]AKER)[address] [place] [address] NURSNOTEon 10-31-2023 NURSNOTE RN educated pt and caregiver on discharge instructions. RN encouraged pt to voice any questions or concerns. Pt verbalizes no questions or concerns at this time. Pt was wheeled off unit with all belongings. Normal [facility] T4, FREEon 10-31-2023 THYROXINE (T4) FREE (NG/DL) IN SER/PLAS 0.98 ng/dL Normal 0.71-1.85 [facility] Comment on above: Performed By: #### L AB127 #### [facility] [address] [place] [address] TSH3 REFLEX TO FT4on 024 THYROTROPIN (MIU/L) IN SER/PLAS BY DETECTION LIMIT <= 0.05 MIU/L 6.15 mIU/L High 0.34-5.60 [facility] Comment on above: Performed By: #### L [id number] #### [facility] (BEAKER) [address] [place] [address] CBC AND AUTO DIFFon 10-24-19 ABSOLUTE BASOPHIL 0.1 X10E9/L Normal 0.0-0.2 [facility] Comment on above: Performed By: #### 3 024-7, CBCA, TSHR, 46345-3 #### [facility] ([id number]) [address], [address] [place] [address] ABSOLUTE NEUTROPHIL 6.1 X10E9/L Normal 1.5-6.6 [facility] Comment on above: Performed By: #### 3 024-7, CBCA, TSHR, 13063-6 #### [facility] ([id number]) [address], [address] [place] [address] Basophils/100 WBC (Bld) 0.7 % Normal [facility] Comment on above: Performed By: #### 3 024-7, CBCA, TSHR, 61627-0 #### [facility] ([id number]) [address], [address] [place] [address] Eosinophils (Bld) [#/Vol] 0.0 10*3/uL Normal 0.0-0.4 [facility] Comment on above: Performed By: #### 3 024-7, CBCA, TSHR, #### [facility] ([id number]) [address] [address] [place] [address] Eosinophils/100 WBC (Bld) 0.0 % Normal [facility] Comment on above: Performed By: #### 3 024-7, CBCA, TSHR, #### [facility] ([id number]) [address] [address] Erythrocyte distribution width (RBC) [Ratio] 15.9 % High 11.5-15.0 [facility] Comment on above: Performed By: #### 3 024-7, CBCA, TSHR, #### [facility] ([id number]) [address] [address] Hematocrit (Bld) [Volume fraction] 37.3 % Normal 35-47 [facility] Comment on above: Performed By: #### 3 024-7, CBCA, TSHR, #### [facility] ([id number]) [address] [address] Hemoglobin (Bld) [Mass/Vol] 12.1 g/dL Normal 11.7-15.5 [facility] Comment on above: Performed By: #### 3 024-7, CBCA, TSHR, #### [facility] ([id number]) [address] [address] Lymphocytes (Bld) [#/Vol] 1.1 10*3/uL Normal 1.0-3.5 [facility] Comment on above: Performed By: #### 3 024-7, CBCA, TSHR, #### [facility] ([id number]) [address] [place] [address] Lymphocytes/100 WBC (Bld) 13.6 % Normal [facility] Comment on above: Performed By: #### 3 024-7, CBCA, TSHR, #### [facility] ([id number]) [address], [address] [place] [address] MCH (RBC) [Entitic mass] 28.7 pg Normal 27-34 [facility] Comment on above: Performed By: #### 3 024-7, CBCA, TSHR, #### [facility] ([id number]) [address], [facility] [address] [place] [address] MCHC (RBC) [Mass/Vol] 32.5 g/dL Normal 32-36 [facility] Comment on above: Performed By: #### 3 024-7, CBCA, TSHR, #### [facility] ([id number]) [address], [address] [place] [address] MCV (RBC) [Entitic vol] 88 fL Normal 80-100 [facility] Comment on above: Performed By: #### 3 024-7, CBCA, TSHR, #### [facility] ([id number]) [address], [address] [place] [address] Monocytes (Bld) [#/Vol] 0.5 10*3/uL Normal 0-0.9 [facility] Comment on above: Performed By: #### 3 024-7, CBCA, TSHR, #### [facility] ([id number]) [address], [address] [place] [address] Monocytes/100 WBC (Bld) 7.0 % Normal [facility] Comment on above: Performed By: #### 3 024-7, CBCA, TSHR, #### [facility] ([id number]) [address] [address] [place] [address] Neutrophils/100 WBC (Bld) 78.7 % Normal [facility] Comment on above: Performed By: #### 3 024-7, CBCA, TSHR, 92032-0 #### [facility] ([id number]) [address] [address] [place] [address] Platelet mean volume (Bld) [Entitic vol] 8.6 fL Normal 7-12 [facility] Comment on above: Performed By: #### 3 024-7, CBCA, TSHR, 23137-6 #### [facility] ([id number]) [address] [address] [place] [address] Platelets (Bld) [#/Vol] 286 10*3/uL Normal 150-450 [facility] Comment on above: Performed By: #### 3 024-7, CBCA, TSHR, 53012-1 #### [facility] ([id number]) [address] [address] [place] [address] RBC COUNT 4.23 X10E12/L Normal 3.80-5.20 [facility] Comment on above: Performed By: #### 3 024-7, CBCA, TSHR, 68707-3 #### [facility] ([id number]) [address] [address] [place] [address] WBC (Bld) [#/Vol] 7.8 10*3/uL Normal 4.0-11.0 [facility] Comment on above: Performed By: #### 3 024-7, CBCA, TSHR, 29600-2 #### [facility] ([id number]) [address] [address] [place] [address] FREE T4on 10-24-2023 Free T4 [Mass/Vol] 1.11 ng/dL Normal 0.61-1.60 [facility] Comment on above: Performed By: #### 3 024-7, CBCA, TSHR, #### [facility] ([id number]) [address] [facility], [address] [place] [address] MAGNESIUMon 10-24-2023 Magnesium [Mass/Vol] 2.0 mg/dL Normal 1.8-2.6 [facility] Comment on above: Performed By: #### 3 024-7, CBCA, TSHR, #### [facility] ([id number]) [address] [facility], [address] [place] [address] TSH WITH REFLEXon 10-24-2023 TSH 5.36 uIU/mL High 0.49-4.67 [facility] Comment on above: Performed By: #### 3 024-7, CBCA, TSHR, #### [facility] ([id number]) [address] [facility], [address] [place] [address] Orders Onlyon 10-23-2023 Orders Only [id number] Kaylie Salomon A 1950 F Date Provider Department Center 10/23/2023 JENNIFER SPRING [facility] IN HeartVAS Family History Problem Relation Age of Onset Heart failure Mother Family Status - Relation Status Age at Mother Normal [facility] Office Visiton 09-17-2023 Follow-up visit [id number] Kaylie Salomon A 1950 F Date Provider Department Center 09/17/2023 BRIAN DIXON [facility] Family History Problem Relation Age of Onset Heart failure Mother Family Status - Relation Status Age at Mother Level of Service:72535 [place] OFFICE/OUTPATIENT NEW MODERATE MDM 45 MINUTES Normal [facility] Consultation Noteon 09-13-20 Consultation Note [id number]#1.0 0TIFF Normal [facility] CBC W Auto Differential pane l (Bld)on 09-12-2023 Basophils (Bld) [#/Vol] 10*3/uL Normal <0.11 [facility] Comment on above: Order Comment: Speci men Type: BLOOD SPECIMEN Ordering Facility: [facility] Address: [address] [place] [address] Performed By: #### 5 7021-8 #### [facility] CLIA [id number] [address] [place] [address] Basophils/100 WBC (Bld) 0.2 % Normal [facility] Comment on above: Order Comment: Speci men Type: BLOOD SPECIMEN Ordering Facility: [facility] Address: [address] [place] [address] Performed By: #### 5 7021-8 #### [facility] CLIA [id number] [address] [place] [address] Differential cell count method Nom (Bld) Auto Normal [facility] Comment on above: Order Comment: Speci men Type: BLOOD SPECIMEN Ordering Facility: [facility] Address: [address] [place] [address] Performed By: #### 5 7021-8 #### [facility] CLIA [id number] [address] [place] [address] Eosinophils (Bld) [#/Vol] 10*3/uL Normal <0.46 [facility] Comment on above: Order Comment: Speci men Type: BLOOD SPECIMEN Ordering Facility: [facility] Address: [address] [place] [address] Performed By: #### 5 7021-8 #### [facility] CLIA [id number] [address] [place] [address] Eosinophils/100 WBC (Bld) 0.0 % Normal [facility] Comment on above: Order Comment: Speci men Type: BLOOD SPECIMEN Ordering Facility: [facility] Address: [address] [place] [address] Performed By: #### 5 7021-8 #### [facility] CLIA [id number] [address] [place] [address] Erythrocyte distribution width (RBC) [Ratio] 14.5 % Normal 11.5-15.0 [facility] Comment on above: Order Comment: Speci men Type: BLOOD SPECIMEN Ordering Facility: [facility] Address: [address] [place] [address] Performed By: #### 5 7021-8 #### [facility] CLIA [id number] [address] [place] [address] Hematocrit (Bld) [Volume fraction] 38.7 % Normal 36.0-46.0 [facility] Comment on above: Order Comment: Speci men Type: BLOOD SPECIMEN Ordering Facility: [facility] Address: [address] [place] [address] Performed By: #### 5 7021-8 #### [facility] CLIA [id number] [address] [place] [address] Hemoglobin (Bld) [Mass/Vol] 11.7 g/dL Normal 11.5-15.5 [facility] Comment on above: Order Comment: Speci men Type: BLOOD SPECIMEN Ordering Facility: [facility] Address: [address] [place] [address] Performed By: #### 5 7021-8 #### [facility] CLIA [id number] [address] [place] [address] Immature granulocytes (Bld) [#/Vol] 0.03 10*3/uL Normal <0.10 [facility] Comment on above: Order Comment: Speci men Type: BLOOD SPECIMEN Ordering Facility: [facility] Address: [address] [place] [address] Performed By: #### 5 7021-8 #### [facility] CLIA [id number] [address] [place] [address] Immature granulocytes/100 WBC (Bld) 0.3 % Normal [facility] Comment on above: Order Comment: Speci men Type: BLOOD SPECIMEN Ordering Facility: [facility] Address: [address] [place] [address] Performed By: #### 5 7021-8 #### [facility] CLIA [id number] [address] [place] [address] Lymphocytes (Bld) [#/Vol] 1.10 10*3/uL Normal 1.00-4.00 [facility] Comment on above: Order Comment: Speci men Type: BLOOD SPECIMEN Ordering Facility: [facility] Address: [address] [place] [address] Performed By: #### 5 7021-8 #### [facility] CLIA [id number] [address] [place] [address] Lymphocytes/100 WBC (Bld) 11.2 % Normal [facility] Comment on above: Order Comment: Speci men Type: BLOOD SPECIMEN Ordering Facility: [facility] Address: [address] [place] [address] Performed By: #### 5 7021-8 #### [facility] CLIA [id number] [address] [place] [address] MCH (RBC) [Entitic mass] 27.5 pg Normal 26.0-34.0 [facility] Comment on above: Order Comment: Speci men Type: BLOOD SPECIMEN Ordering Facility: [facility] Address: [address] [place] [address] Performed By: #### 5 7021-8 #### [facility] CLIA [id number] [address] [place] [address] MCHC (RBC) [Mass/Vol] 30.2 g/dL Low 30.5-36.0 [facility] Comment on above: Order Comment: Speci men Type: BLOOD SPECIMEN Ordering Facility: [facility] Address: [address] [place] [address] Performed By: #### 5 7021-8 #### [facility] CLIA [id number] [address] [place] [address] MCV (RBC) [Entitic vol] 91.1 fL Normal 80.0-100.0 [facility] Comment on above: Order Comment: Speci men Type: BLOOD SPECIMEN Ordering Facility: [facility] Address: [address] [place] [address] Performed By: #### 5 7021-8 #### [facility] CLIA [id number] [address] [place] [address] Monocytes (Bld) [#/Vol] 0.92 10*3/uL High <0.87 [facility] Comment on above: Order Comment: Speci men Type: BLOOD SPECIMEN Ordering Facility: [facility] Address: [address] [place] [address] Performed By: #### 5 7021-8 #### [facility] CLIA [id number] [address] [place] [address] Monocytes/100 WBC (Bld) 9.4 % Normal [facility] Comment on above: Order Comment: Speci men Type: BLOOD SPECIMEN Ordering Facility: [facility] Address: [address] [place] [address] Performed By: #### 5 7021-8 #### [facility] CLIA [id number] [address] [place] [address] Neutrophils (Bld) [#/Vol] 7.74 10*3/uL High 1.45-7.50 [facility] Comment on above: Order Comment: Speci men Type: BLOOD SPECIMEN Ordering Facility: [facility] Address: [address] [place] [address] Performed By: #### 5 7021-8 #### [facility] CLIA [id number] [address] [place] [address] 04890 Neutrophils/100 WBC (Bld) 78.9 % Normal [facility] Comment on above: Order Comment: Speci men Type: BLOOD SPECIMEN Ordering Facility: [facility] Address: [address] [place] [address] Performed By: #### 5 7021-8 #### [facility] CLIA [id number] [address] [place] [address] 82925 Nucleated RBC (Bld) [#/Vol] 10*3/uL Normal <0.01 [facility] Comment on above: Order Comment: Speci men Type: BLOOD SPECIMEN Ordering Facility: [facility] Address: [address] [place] [address] Performed By: #### 5 7021-8 #### [facility] CLIA [id number] [address] [place] [address]64 Nucleated RBC/100 WBC (Bld) [Ratio] 0.0 /100 WBC Normal [facility] Comment on above: Order Comment: Speci men Type: BLOOD SPECIMEN Ordering Facility: [facility] Address: [address] [place] [address] Performed By: #### 5 7021-8 #### [facility] CLIA [id number] [address] [place] [address]04 Platelet mean volume (Bld) [Entitic vol] 9.4 fL Normal 9.0-12.7 [facility] Comment on above: Order Comment: Speci men Type: BLOOD SPECIMEN Ordering Facility: [facility] Address: [address] [place] [address] Performed By: #### 5 7021-8 #### [facility] CLIA [id number] [address] [place] [address] 36438 Platelets (Bld) [#/Vol] 279 10*3/uL Normal 150-400 [facility] Comment on above: Order Comment: Speci men Type: BLOOD SPECIMEN Ordering Facility: [facility] Address: [address] [place] [address] Performed By: #### 5 7021-8 #### [facility] CLIA [id number] [address] [place] [address]39[address] RBC (Bld) [#/Vol] 4.25 10*6/uL Normal 3.90-5.20 [facility] Comment on above: Order Comment: Speci men Type: BLOOD SPECIMEN Ordering Facility: [facility] Address: [address] [place] [address] Performed By: #### 5 7021-8 #### [facility] CLIA [id number] [address] [place] [address] 78926 WBC (Bld) [#/Vol] 9.81 10*3/uL Normal 3.70-11.00 [facility] Comment on above: Order Comment: Speci men Type: BLOOD SPECIMEN Ordering Facility: [facility] Address: [place] [address] Performed By: #### 5 7021-8 #### [facility] CLIA [id number] [address] [place] [address] CNOVSPon 09-12-2023 CNOVSP Visit (SP) Office ([place]) KAYLIE SALOMON ([id number]) 1950 F Date Time Provider Department 09/12/23 1:15 PM REGINALD ARAGON During your visit today, we recorded the following information about you: Temperature Pulse Respiration Blood pressure 97.7 degrees 88/minute 16/minute 108/67 Weight Height 121.6 kg 1.677 m Reginald Aragon MD 09/12/2023 7:56 PM Signed PATIENT NAME: Kaylie Salomon DATE: 09/12/2023 PRIMARY CARE PHYSICIAN: Dr. Landeros OTHER PHYSICIANS: Dr. Ramon Smith, [facility] XRT Portions of this encounter [...] on 03/14/2023) ALLERGIES: Clarithromycin, Conjugated Estrogens, Neosporin [Hvgnwsob-Szhomkchjx-Z olymyxin], Paclitaxel, Peanut, Penicillins, and Sulfa (Sulfonamide Antibiotics) PAST MEDICAL HISTORY: PAST MEDICAL HISTORY Diagnosis Date AF (atrial fibrillation) ([facility]) Asthma Breast cancer ([facility]) 02/[address] Landeros COPD (chronic obstructive pulmonary disease) ([facility]) Edema Hyperlipidemia Hypertension OA (osteoarthritis of spine) [...] Skin: Ne (more content not included)... Normal [facility] David 09-12-2023 PONCHO Telephone (CACHORRO) KAYLIE SALOMON ([id number]) 1950 F Date Time Provider Department 09/12/23 CARIN RAMOS During your visit today, we recorded the following information about you: Carin Ramos RN 09/12/2023 1:42 PM Signed BRM/HM: Please sign pended order Orders sent to [facility], [facility] PH: [phone] Will notifagustin Monsalve, plant health care technician, once signed DILCIA Velasco Natalie, RN 09/12/2023 2:59 PM Signed Ordered faxed to [facility] Ramos RN Allergies As of Date: 09/12/2023 Noted Allergy Reaction CLARITHROMYCIN 01/27/2010 16 - Unknown CONJUGATED ESTROGENS 01/27/2010 16 - Unknown NEOSPORIN ([id number]-[id number]-F O*05/06/2019 2 - Rash PACLITAXEL 08/24/2019 14 [...] right breast [Z90.11] Order(s):BREAST PROSTHESIS, MASTECTOMY BRA [[id number]] Order #: [id number] Prescriptions as of 09/12/2023 - BREO ELLIPTA [...] Status:Closed by CARIN RAMOS on 09/12/23 Normal [facility] Cancer Ag27-29 SerPl-aCncon 09-12-2023 Cancer Ag 27-29 Qn 31.6 [arb'U]/mL Normal <38.6 [facility] Comment on above: Order Comment: Speci men Type: BLOOD SPECIMEN Ordering Facility: [facility] Address: [address] [place] [address] Result Comment: The CA27.29 test was performed using the Siemens Solfoaur XP chemiluminometric immunoassay method. Results obtained with different assay methods or kits cannot be used interchangeably. Performed By: #### 1 7842-6 #### [facility] CLIA [id number] [address] [facility] [id number] [address] [place] Comprehensive metabolic 2000 panelon 09-12-2023 Albumin [Mass/Vol] 4.4 g/dL Normal 3.9-4.9 [facility] Comment on above: Order Comment: Speci men Type: BLOOD SPECIMEN Ordering Facility: [facility] Address: [address] [place] [address] Performed By: #### 2 4323-8 #### [facility] CLIA [id number] [address] [place] [address] 25963 ALP [Catalytic activity/Vol] 87 U/L Normal 34-123 [facility] Comment on above: Order Comment: Speci men Type: BLOOD SPECIMEN Ordering Facility: [facility] Address: [address] [place] [address] Performed By: #### 2 4323-8 #### [facility] CLIA [id number] [address] [place] [address] 71708 ALT [Catalytic activity/Vol] 11 U/L Normal 7-38 [facility] Comment on above: Order Comment: Speci men Type: BLOOD SPECIMEN Ordering Facility: [facility] Address: [address] [place] [id number] Performed By: #### 2 4323-8 #### [facility] CLIA [id number] [address] [place] [address] 28579 Anion gap [Moles/Vol] 10 mmol/L Normal 9-18 [facility] Comment on above: Order Comment: Speci men Type: BLOOD SPECIMEN Ordering Facility: [facility] Address: [address] [place] [address] Performed By: #### 2 4323-8 #### [facility] CLIA [id number] [address] [place] [address] 17633 AST [Catalytic activity/Vol] 14 U/L Normal 13-35 [facility] Comment on above: Order Comment: Speci men Type: BLOOD SPECIMEN Ordering Facility: [facility] Address: [address] [place] [address] Performed By: #### 2 4323-8 #### [facility] CLIA [id number] [address] [place] [address] 66775 Bilirubin [Mass/Vol] 0.6 mg/dL Normal 0.2-1.3 [facility] Comment on above: Order Comment: Speci men Type: BLOOD SPECIMEN Ordering Facility: [facility] Address: [address] [place] [address] Performed By: #### 2 4323-8 #### [facility] CLIA [id number] [address] [place] [address] 62435 Calcium [Mass/Vol] 9.7 mg/dL Normal 8.5-10.2 [facility] Comment on above: Order Comment: Speci men Type: BLOOD SPECIMEN Ordering Facility: [facility] Address: [address] [place] [address] Performed By: #### 2 4323-8 #### [facility] CLIA [id number] [address] [place] [address] 17990 Chloride [Moles/Vol] 96 mmol/L Low 97-105 [facility] Comment on above: Order Comment: Speci men Type: BLOOD SPECIMEN Ordering Facility: [facility] Address: [address] [place] [address] Performed By: #### 2 4323-8 #### [facility] CLIA [id number] [address] [place] [address] 05434 CO2 [Moles/Vol] 31 mmol/L High 22-30 [facility] Comment on above: Order Comment: Speci men Type: BLOOD SPECIMEN Ordering Facility: [facility] Address: [address] [place] [address] Performed By: #### 2 4323-8 #### [facility] CLIA [id number] [address] [place] [address] 70723 Creatinine [Mass/Vol] 1.10 mg/dL High 0.58-0.96 [facility] Comment on above: Order Comment: Speci men Type: BLOOD SPECIMEN Ordering Facility: [facility] Address: [address] [place] [address] Performed By: #### 2 4323-8 #### [facility] CLIA [id number] [address] [place] [address] 73527 Creatinine and Glomerular filtration rate.predicted panel (S/P/Bld) 53 mL/min/1.73m??? Low >=60 [facility] Comment on above: Order Comment: Speci men Type: BLOOD SPECIMEN Ordering Facility: [facility] Address: [address] [place] [address] Result Comment: Violette mated Glomerular Filtration Rate [...] GFR. Performed By: #### 2 4323-8 #### [facility] CLIA [id number] [address] [place] [address] Glucose [Mass/Vol] 115 mg/dL High 74-99 [facility] Comment on above: Order Comment: Jennifer stahl Type: BLOOD SPECIMEN Ordering Facility: [facility] Address: [address] [place], [place] [address] Result Comment: The [place] Diabetes Association (ADA) provides guidance for cutoff [...] Standards of Medical Care in Diabetes 2016, [place] Diabetes Association. Diabetes Care. 2016.39(Suppl 1). Performed By: #### 2 4323-8 #### [facility] CLIA [id number] [address] [place] [address] 02400 Potassium [Moles/Vol] 4.4 mmol/L Normal 3.7-5.1 [facility] Comment on above: Order Comment: Jennifer stahl Type: BLOOD SPECIMEN Ordering Facility: [facility] Address: [address] [place], [place] [address] Performed By: #### 2 4323-8 #### [facility] CLIA [id number] [address] [place] [address] 99980 Protein [Mass/Vol] 7.4 g/dL Normal 6.3-8.0 [facility] Comment on above: Order Comment: Jennifer stahl Type: BLOOD SPECIMEN Ordering Facility: [facility] Address: [address] [place] [address] Performed By: #### 2 4323-8 #### [facility] CLIA [id number] [address] [place] [address] 24383 Sodium [Moles/Vol] 137 mmol/L Normal 136-144 [facility] Comment on above: Order Comment: Speci men Type: BLOOD SPECIMEN Ordering Facility: [facility] Address: [address] [place] [address] Performed By: #### 2 4323-8 #### [facility] CLIA [id number] [address] [place] [address] Urea nitrogen [Mass/Vol] 36 mg/dL High 7-21 [facility] Comment on above: Order Comment: Speci men Type: BLOOD SPECIMEN Ordering Facility: [facility] Address: [place] [address] Performed By: #### 2 4323-8 #### [facility] CLIA [id number] [address] [place] [address] [facility] 2022 Home Health Records [id number] 20 [id number]#1.0 0TIFF Normal [facility] 2022 Home Health Records [id number]#1.0 0TIFF Normal [facility] Office Visiton 08-29-2023 Follow-up visit [id number] Kaylie Salomon 1950 F Date Provider Department Center 08/29/2023 47194-ANRLNBELNMELISSA TORRES [facility] Family History Problem Relation Age of Onset Heart failure Mother Family Status - Relation Status Age at Mother Level of Service:62392 [place] OFFICE/OUTPATIENT ESTABLISHED MOD MDM 30-39 MIN Normal [facility] Office Visiton 08-19-2023 Follow-up visit [id number] Kaylie Salomon 1950 F Date Provider Department Center 08/19/2023 PIETRO CAMARILLO AFUA Hardin Family History Problem Relation Age of Onset Heart failure Mother Family Status - Relation Status Age at Mother Level of Service:27967 [place] OFFICE/OUTPATIENT ESTABLISHED MOD MDM 30-39 MIN Normal [facility] RAD - CT Reporton 08-14-2023 RAD - CT Report [id number]#1.0 0TIFF Normal [facility] CBC W Auto Differential pane l (Bld)on 09-13-2022 Basophils (Bld) [#/Vol] <0.11 k/uL [facility] Basophils/100 WBC (Bld) 0.2 % [facility] Differential cell count method Nom (Bld) Auto [facility] Eosinophils (Bld) [#/Vol] <0.46 k/uL [facility] Eosinophils/100 WBC (Bld) 0.0 % [facility] Erythrocyte distribution width (RBC) [Ratio] 14.1 % 11.5 - 15.0 % [facility] Hematocrit (Bld) [Volume fraction] 38.1 % 36.0 - 46.0 % [facility] Hemoglobin (Bld) [Mass/Vol] 11.7 g/dL 11.5 - 15.5 g/dL [facility] Immature granulocytes (Bld) [#/Vol] 0.05 10*3/uL <0.10 k/uL [facility] Immature granulocytes/100 WBC (Bld) 0.5 % [facility] Lymphocytes (Bld) [#/Vol] 1.15 10*3/uL 1.00 - 4.00 k/uL [facility] Lymphocytes/100 WBC (Bld) 11.5 % [facility] MCH (RBC) [Entitic mass] 29.4 pg 26.0 - 34.0 pg [facility] MCHC (RBC) [Mass/Vol] 30.7 g/dL 30.5 - 36.0 g/dL [facility] MCV (RBC) [Entitic vol] 95.7 fL 80.0 - 100.0 fL [facility] Monocytes (Bld) [#/Vol] 0.75 10*3/uL <0.87 k/uL [facility] Monocytes/100 WBC (Bld) 7.5 % [facility] Neutrophils (Bld) [#/Vol] 8.04 10*3/uL High 1.45 - 7.50 k/uL [facility] Neutrophils/100 WBC (Bld) 80.3 % [facility] Nucleated RBC (Bld) [#/Vol] <0.01 k/uL [facility] Nucleated RBC/100 WBC (Bld) [Ratio] 0.0 /100 WBC [facility] Platelet mean volume (Bld) [Entitic vol] 10.0 fL 9.0 - 12.7 fL [facility] Platelets (Bld) [#/Vol] 267 10*3/uL 150 - 400 k/uL [facility] RBC (Bld) [#/Vol] 3.98 10*6/uL 3.90 - 5.2 0 m/uL [facility] WBC (Bld) [#/Vol] 10.01 10*3/uL 3.70 - 11 .00 k/uL [facility] Comprehensive metabolic 2000 panelon 09-13-2022 Albumin [Mass/Vol] 4.2 g/dL 3.9 - 4.9 g/dL [facility] ALP [Catalytic activity/Vol] 97 U/L 34 - 123 U/L [facility] ALT [Catalytic activity/Vol] 10 U/L 7 - 38 U/L [facility] Anion gap [Moles/Vol] 10 mmol/L 9 - 18 mmol/L [facility] AST [Catalytic activity/Vol] 12 U/L Low 13 - 35 U/L [facility] Bilirubin [Mass/Vol] 0.4 mg/dL 0.2 - 1.3 mg/dL [facility] Calcium [Mass/Vol] 9.3 mg/dL 8.5 - 10. 2 mg/dL [facility] Chloride [Moles/Vol] 101 mmol/L 97 - 105 mmol/L [facility] CO2 [Moles/Vol] 29 mmol/L 22 - 30 mmol/L [facility] Creatinine [Mass/Vol] 1.02 mg/dL High 0.58 - 0.96 mg/dL [facility] Estimated Glomerular Filtration Rate 58 mL/min/1.73m Low >=60 mL/min/1.73m [facility] Glucose [Mass/Vol] 139 mg/dL High 74 - 99 mg/dL [facility] Potassium [Moles/Vol] 3.9 mmol/L 3.7 - 5.1 mmol/L [facility] Protein [Mass/Vol] 6.9 g/dL 6.3 - 8.0 g/dL [facility] Sodium [Moles/Vol] 140 mmol/L 136 - 144 mmol/L [facility] Urea nitrogen [Mass/Vol] 25 mg/dL High 7 - 21 mg/dL [facility] XR CHEST 2 Von 08-15-2022 XR [...] DEEPTI MALLORY Date: 2022-08-15 06:58 Normal [facility] BNPon 07-23-2022 Natriuretic peptide B (Bld) [Mass/Vol] 1362.0 pg/mL Critically high <=900.0 [facility] Comment on above: Performed By: #### C MADM, CMP, BNP #### [facility] [address] [place] [address] [address] Hector Rubio CARDIAC [place] ADMITon 022 CK [Catalytic activity/Vol] 84 U/L Normal 26-192 [facility] Comment on above: Performed By: #### C MADM, CMP, BNP #### [facility] [address] [place] [address] [address] Hector Rubio CK.MB [Mass/Vol] 2.22 ng/mL Normal <=3.60 [facility] Comment on above: Performed By: #### C MADM, CMP, BNP #### [facility] [address] [place] [address] [address] Hector Rubio HSTROP 41.0 pg/mL Normal 4.0-51.3 [facility] Comment on above: Result Comment: CUT- OFF POINTS HAVE BEEN ESTABLISHED BASED ON THE FOURTH UNIVERSAL DEFINITIONS OF MYOCARDIAL INFARCTION. THE UPPER REFERENCE LIMIT (URL) OF TROPONIN, DEFINED THE 99TH PERCENTILE OF cTnI DISTRIBUTION IN A REFERENCE POPULATION, HAS BEEN CONFIRMED THE DECISION THRESHOLD FOR TX DIAGNOSIS. Performed By: #### C MADM, CMP, BNP #### [facility] [address] [place] [address] [address] Hector Rubio DIONNE 95 ng/mL Critically high 9-[address] [facility] Comment on above: Performed By: #### C MADM, CMP, BNP #### [facility] [address] [place] [address] Dr. Hector Rubio CBC AUTO DIFFon 07-23-2022 BASO # 0.0 103/ul Normal 0.0-0.1 [facility] Comment on above: Performed By: #### C BC #### [facility] [address] [place] [address] Dr. Hector Rubio Basophils/100 WBC (Bld) 0.1 % Critically low 0.2-2.0 [facility] Comment on above: Performed By: #### C BC #### [facility] [address] [place] [address] Dr. Hector Rubio EO # 0.0 103/ul Normal 0.0-0.7 [facility] Comment on above: Performed By: #### C BC #### [facility] [address] [place] [address] Dr. Hector Rubio Eosinophils/100 WBC (Bld) 0.0 % Critically low 0.9-7.0 [facility] Comment on above: Performed By: #### C BC #### [facility] [address] [place] [address] Dr. Hector Rubio Erythrocyte distribution width (RBC) [Ratio] 13.7 % Normal 11.0-15.0 [facility] Comment on above: Performed By: #### C BC #### [facility] [address] [place] [address] Dr. Hector Rubio Hematocrit (Bld) [Volume fraction] 38.9 % Normal 36.0-48.0 [facility] Comment on above: Performed By: #### C BC #### [facility] [address] [place] [address] Dr. Hector Rubio Hemoglobin (Bld) [Mass/Vol] 11.8 g/dL Critically low 12.0-16.0 [facility] Comment on above: Performed By: #### C BC #### [facility] [address] [place] [address] [address] Hector Rubio IG # 0.02 10e3/ul Normal 0.00-0.03 [facility] Comment on above: Performed By: #### C BC #### [facility] [address] [place] [address] [address] Hector Rubio IG % 0.3 % Normal 0.0-0.5 [facility] Comment on above: Performed By: #### C BC #### [facility] [address] [place] [address] Dr. Hector Rubio LYMPH # 1.0 103/ul Critically low 1.2-3.8 [facility] Comment on above: Performed By: #### C BC #### [facility] [address] [place] [address] Dr. Hector Rubio Lymphocytes/100 WBC (Bld) 12.6 % Critically low 20.5-60.0 [facility] Comment on above: Performed By: #### C BC #### [facility] [address] [place] [address] Dr. Hector Rubio MANUAL DIFF REQ NO Normal [facility] Comment on above: Performed By: #### C BC #### [facility] [address] [place] [address] Dr. Hector Rubio MCH (RBC) [Entitic mass] 29.0 pg Normal 26.7-34.0 [facility] Comment on above: Performed By: #### C BC #### [facility] [address] [place] [address] Dr. Hector Rubio MCHC (RBC) [Mass/Vol] 30.3 g/dL Normal 29.9-35.2 [facility] Comment on above: Performed By: #### C BC #### [facility] [address] [place] [address] Dr. Hector Rubio MCV (RBC) [Entitic vol] 95.6 fL Normal 81.0-99.0 [facility] Comment on above: Performed By: #### C BC #### [facility] [address] [place], [place] [address] Dr. Hector Rubio MONO # 0.7 103/ul Normal 0.3-0.8 [facility] Comment on above: Performed By: #### C BC #### [facility] [address] [place] [address] Dr. Hector Rubio Monocytes/100 WBC (Bld) 9.0 % Normal 1.7-12.0 [facility] Comment on above: Performed By: #### C BC #### [facility] [address] [place] [address] Dr. Hector Rubio NEUT # 6.1 103/ul Normal 1.4-6.5 [facility] Comment on above: Performed By: #### C BC #### [facility] [address] [place] [address] Dr. Hector Rubio Neutrophils/100 WBC (Bld) 78.0 % Critically high 43.0-75.0 [facility] Comment on above: Performed By: #### C BC #### [facility] [address] [place] [address] Dr. Hector Rubio Platelet mean volume (Bld) [Entitic vol] 9.7 fL Normal 9.5-13.5 [facility] Comment on above: Performed By: #### C BC #### [facility] [address] [place] [address] Dr. Hector Rubio PLT 202 103/ul Normal 150-450 [facility] Comment on above: Performed By: #### C BC #### [facility] [address] [place] [address] Dr. Hector Rubio RBC 4.07 106/ul Critically low 4.20-5.[address] [facility] Comment on above: Performed By: #### C BC #### [facility] [address] [place] [address] Dr. Hector Rubio WBC 7.8 103/ul Normal 4.0-11.0 [facility] Comment on above: Performed By: #### C BC #### [facility] [address] [place] [address] Dr. Hector Rubio Covid-19 PCR (CVDTBH)on 07-01 SARS-CoV-2 (COVID-19) RNA SHLOMO+probe Ql (Unsp spec) Not detected Normal NOT DETECTED [facility] Comment on above: Result Comment: When [...] for this test is supported by the Internal Revenue Service Agent of Health and Human Service's declaration that [...] used). Performed By: #### C VDTBH #### [facility] [address] [place] [address] Dr. Hector Rubio PROF 14(COMP METB)on 022 Albumin [Mass/Vol] 3.7 g/dL Normal 3.4-5.0 [facility] Comment on above: Performed By: #### C MADM, CMP, BNP #### [facility] [address] [place] [address] Dr. Hector Rubio Albumin/Globulin [Mass ratio] 0.9 {ratio} Normal [facility] Comment on above: Performed By: #### C MADM, CMP, BNP #### [facility] [address] [place] [address] Dr. Hector Rubio ALP [Catalytic activity/Vol] 90 U/L Normal 46-116 [facility] Comment on above: Performed By: #### C MADM, CMP, BNP #### [facility] [address] [place] [address] Dr. Hector Rubio ALT [Catalytic activity/Vol] 17 U/L Normal 14-59 [facility] Comment on above: Performed By: #### C MADM, CMP, BNP #### [facility] [address] [address] [address] Hector Rubio Anion gap [Moles/Vol] 7.8 mmol/L Normal [facility] Comment on above: Performed By: #### C MADM, CMP, BNP #### [facility] [address] [address] [address] Hector Rubio AST [Catalytic activity/Vol] 12 U/L Critically low 15-37 [facility] Comment on above: Performed By: #### C MADM, CMP, BNP #### [facility] [address] [address] [address] Hector Rubio Bilirubin [Mass/Vol] 0.5 mg/dL Normal 0.2-1.0 [facility] Comment on above: Performed By: #### C MADM, CMP, BNP #### [facility] [address] [address] [address] Hector Rubio Calcium [Mass/Vol] 9.1 mg/dL Normal 8.5-10.1 [facility] Comment on above: Performed By: #### C MADM, CMP, BNP #### [facility] [address] [address] [address] Hector Rubio Chloride [Moles/Vol] 102 mmol/L Normal 98-107 [facility] Comment on above: Performed By: #### C MADM, CMP, BNP #### [facility] [address] [address] [address] Hector Rubio CO2 [Moles/Vol] 33.1 mmol/L Critically high 21.0-32.0 [facility] Comment on above: Performed By: #### C MADM, CMP, BNP #### [facility] [address] [address] [address] Hector Rubio Creatinine [Mass/Vol] 0.89 mg/dL Normal 0.55-1.02 [facility] Comment on above: Performed By: #### C MADM, CMP, BNP #### [facility] [address] [address] [address] Hector Rubio EGFR-AF [place]IZ[place] >60 Normal >=60 [facility] Comment on above: Performed By: #### C MADM, CMP, BNP #### [facility] [address] [address] [address] Hector Rubio EGFR-NON AF CITIZEN [place] >60 Normal >=60 [facility] Comment on above: Performed By: #### C MADM, CMP, BNP #### [facility] [address] [address] [address] Hector Rubio Globulin (S) [Mass/Vol] 4.0 g/dL Normal [facility] Comment on above: Performed By: #### C MADM, CMP, BNP #### [facility] [address] [address] [address] Hector Rubio Glucose [Mass/Vol] 118 mg/dL Critically high 74-106 [facility] Comment on above: Performed By: #### C MADM, CMP, BNP #### [facility] [address] [address] [address] Hector Rubio Potassium [Moles/Vol] 3.9 mmol/L Normal 3.5-5.1 [facility] Comment on above: Performed By: #### C MADAlesia CMP, BNP #### [facility] [address] [place] [address] Dr. Hector Rubio Protein [Mass/Vol] 7.7 g/dL Normal 6.4-8.2 [facility] Comment on above: Performed By: #### C MADM, CMP, BNP #### [facility] [address] [place] [address] Dr. Hector Rubio Sodium [Moles/Vol] 139 mmol/L Normal 136-145 [facility] Comment on above: Performed By: #### C MADM, CMP, BNP #### [facility] [address] [address] [address] Hector Rubio Urea nitrogen [Mass/Vol] 29.0 mg/dL Critically high 7.0-18.0 [facility] Comment on above: Performed By: #### C MADM, CMP, BNP #### [facility] [address] [place], [place] [address] Dr. Hector Rubio Urea nitrogen/Creatinine [Mass ratio] 32.6 mg/mg Normal [facility] Comment on above: Performed By: #### C MADM, CMP, BNP #### [facility] [address] [place], [place] [address] Dr. Hector Rubio XR CHEST 1 Von [...] GABRIELLE LIU Date: 2022-07-23 16:40 Normal [facility] MG MAMM DX 3D LT CADon 06-14 MG MAMM DX 3D LT CAD Patient: KAYLIE SALOMON Exam Date: 06/14/2022 : 1950 Gender:F Ordering : DR REGINALD ARAGON M.D. Admission #: [id number] Family : Order #: [id number] CLICK HERE TO VIEW EXAM CORRECTION Corrected [...] Treatments None Family Cancers None LOCATION: [facility] BREAST COMPOSITION: Scattered areas fibroglandular density. [...] Mallory M.D. on 09/18/2022 at 09:22 [address] [facility] CT Chest W contrast Juan Jose [...] any questions regarding this interpretation, please call [phone]. If you are unable to reach us at the number above, please feel free to contact [facility] [place] [facility] at [phone]. DIVISION OF RADIOLOGY * * *Final Report* * * DATE OF EXAM: Aug 17 2021 10:00AM [facility] - CT CHEST W IVCON / [...] kidney. The upper abdomen is otherwise unremarkable. Gastrointestinal Technician (topogram) images: No additional findings. DIVISION OF RADIOLOGY Provider, [facility] - 08/17/2021 * * *Final Report* * * DATE OF EXAM: Aug 17 2021 10:00AM [facility] - CT CHEST W IVCON / [...] kidney. The upper abdomen is otherwise unremarkable. Gastrointestinal Technician (topogram) images: No additional findings. IMPRESSION IMPRESSION: [...] any questions regarding this interpretation, please call [phone]. If you are unable to reach us at the number above, please feel free to contact [facility] eRadiology at [phone]. [facility] Radiology Study observation (narrative) [facility] CT Chest W contrast IVOrdere d By: [facility] Provider on 08-17-2021 [facility] BASIC METABOLIC PANELon 05-0 Calcium [Mass/Vol] 9.3 mg/dL Normal 8.6-10.3 [facility] [place] Comment on above: Order Comment: Yes: Add to Previous draw if able Performed By: #### 0 0121, 41779 #### [facility] [address] [address], [facility] Chloride [Moles/Vol] 98 mmol/L Normal 98-107 [facility] [place] Comment on above: Order Comment: Yes: Add to Previous draw if able Performed By: #### 0 0121, 98171 #### [facility] [address] [address], [place] CO2 [Moles/Vol] 34 mmol/L High 21-31 [facility] [place] Comment on above: Order Comment: Yes: Add to Previous draw if able Performed By: #### 0 0121, 82432 #### [facility] [address] [address], [facility] Creatinine [Mass/Vol] 0.59 mg/dL Low 0.60-1.20 [facility] [place] Comment on above: Order Comment: Yes: Add to Previous draw if able Performed By: #### 0 0121, 95721 #### [facility] [address] [address], [place] GFR/1.73 sq M predicted among blacks MDRD (S/P/Bld) [Vol rate/Area] mL/min/{1.73_m2} Normal >60 [facility] [place] Comment on above: Order Comment: Yes: Add to Previous draw if able Result Comment: Calc ulation may not be valid for patients over 70 years Performed By: #### 0 0121, 55323 #### [facility] [address] [address], [place] GFR/1.73 sq M predicted among non-blacks MDRD (S/P/Bld) [Vol rate/Area] mL/min/{1.73_m2} Normal >60 [facility] [place] Comment on above: Order Comment: Yes: Add to Previous draw if able Result Comment: Calc ulation may not be valid for patients over 70 years Performed By: #### 0 0121, 90840 #### [facility] [address] [place] [address], [facility] Glucose [Mass/Vol] 256 mg/dL High 70-100 [facility] [place] Comment on above: Order Comment: Yes: Add to Previous draw if able Performed By: #### 0 0121, 46857 #### [facility] [address] [place] [address], [facility] Potassium [Moles/Vol] 4.5 mmol/L Normal 3.5-5.1 [facility] [place] Comment on above: Order Comment: Yes: Add to Previous draw if able Performed By: #### 0 0121, 11530 #### [facility] [address] [facility] [place] [address], [facility] Sodium [Moles/Vol] 139 mmol/L Normal 136-145 [facility] [place] Comment on above: Order Comment: Yes: Add to Previous draw if able Performed By: #### 0 0121, 42217 #### [facility] [address] [facility] [facility] Urea nitrogen [Mass/Vol] 21 mg/dL Normal 7-25 [facility] [place] Comment on above: Order Comment: Yes: Add to Previous draw if able Performed By: #### 0 0121, 38760 #### [facility] [address] [facility] [place] [address], [facility] CBC W/DIFFon 02-02-2019 ABS BASOPHILS 0.0 10*3/uL Normal 0.0-0.2 [facility] [place] Comment on above: Performed By: #### 0 0121, 74929 #### [facility] [address] [facility] [place] [address], [facility] ABS IMM GRANS 0.1 10*3/uL Normal 0.0-0.2 [facility] [place] Comment on above: Performed By: #### 0 0121, 84972 #### [facility] [address] [place] [address], [facility] ABS NEUTROPHILS 16.9 10*3/uL High 1.6-7.6 [facility] [place] Comment on above: Performed By: #### 0 0121, 52773 #### [facility] [address] [place] [address], [facility] Basophils/100 WBC (Bld) 0.1 % Normal 0.0-1.0 [facility] [place] Comment on above: Performed By: #### 0 0121, 45614 #### [facility] [address] [facility] [place] [address], [facility] Eosinophils (Bld) [#/Vol] 0.0 10*3/uL Normal 0.0-0.5 [facility] [place] Comment on above: Performed By: #### 0 0121, 40889 #### [facility] [address] [facility] [place] [address], [facility] Eosinophils/100 WBC (Bld) 0.0 % Normal 0.0-6.0 [facility] [place] Comment on above: Performed By: #### 0 012, 19124 #### [facility] [address] [place] [address], [facility] Erythrocyte distribution width (RBC) [Ratio] 14.3 % Normal 11.5-15.0 [facility] [place] Comment on above: Performed By: #### 0 012, 29706 #### [facility] [address] [facility] [address], [facility] Hematocrit (Bld) [Volume fraction] 37.3 % Normal 36.0-45.0 [facility] [place] Comment on above: Performed By: #### 0 0121, 66217 #### [facility] [address] [facility] [address], [facility] Hemoglobin (Bld) [Mass/Vol] 11.6 g/dL Low 12.0-15.0 [facility] [place] Comment on above: Performed By: #### 0 0121, 17642 #### [facility] [address] IMMATURE GRANS 0.4 % Normal 0.0-1.0 [facility] [place] Comment on above: Performed By: #### 0 012, 75177 #### [facility] [address] Lymphocytes (Bld) [#/Vol] 0.5 10*3/uL Low 1.2-4.0 [facility] [place] Comment on above: Performed By: #### 0 012, 02794 #### [facility] [address] Lymphocytes/100 WBC (Bld) 2.5 % Low 20.0-45.0 [facility] [place] Comment on above: Performed By: #### 0 012, 25668 #### [facility] [address] MCH (RBC) [Entitic mass] 28.9 pg Normal 27.0-33.0 [facility] [place] Comment on above: Performed By: #### 0 012, 53734 #### [facility] [address] MCHC (RBC) [Mass/Vol] 31.1 g/dL Low 32.0-35.0 [facility] [place] Comment on above: Performed By: #### 0 012, 63422 #### [facility] [address] [place] [address], [facility] MCV (RBC) [Entitic vol] 93.0 fL Normal 82.0-98.0 [facility] [place] Comment on above: Performed By: #### 0 012, 00786 #### [facility] [address] [place] [address], [facility] Monocytes (Bld) [#/Vol] 0.3 10*3/uL Normal 0.1-1.0 [facility] [place] Comment on above: Performed By: #### 0 012, 94167 #### [facility] [address] [place] [id number], [facility] MONOS 1.5 % Low 5.0-12.0 [facility] [place] Comment on above: Performed By: #### 0 0121, 28454 #### [facility] [address] [place] [address], [facility] Neutrophils/100 WBC (Bld) 95.5 % High 40.0-72.0 [facility] [place] Comment on above: Performed By: #### 0 0121, 50480 #### [facility] [address] [facility] [place] [address], [facility] Nucleated RBC/100 WBC (Bld) [Ratio] 0 % Normal 0-0 [facility] [place] Comment on above: Performed By: #### 0 012, 58771 #### [facility] [address] [facility] [place] [address], [facility] PLAT CNT 265 10*3/uL Normal 150-400 [facility] [place] Comment on above: Performed By: #### 0 012, 86804 #### [facility] [address] [facility] [place] [address], [facility] RBC (Bld) [#/Vol] 4.01 10*6/uL Normal 3.80-5.00 [facility] [place] Comment on above: Performed By: #### 0 012, 22232 #### [facility] [address] [facility] [place] [address], [facility] WBC (Bld) [#/Vol] 17.67 10*3/uL High 4.00-10.60 [facility] [place] Comment on above: Performed By: #### 0 012, 05011 #### [facility] [address] [facility] [place] [address], [facility] POC GLUCOSE LABon 02-02-2019 Glucose [Mass/Vol] 215 mg/dL High 70-100 [facility] [place] Comment on above: Performed By: #### 0 0121, 38946 #### [facility] [address] BNP (B-TYPE NATRIURETIC PEPT DARCI)on 02-01-2019 Natriuretic peptide B (Bld) [Mass/Vol] 423 pg/mL High 0-100 [facility] [place] Comment on above: Order Comment: Yes: Add to Previous draw if able Result Comment: Give n the appropriate clinical setting a BNP result of >100 pg/mL indicates congestive heart failure. Performed By: #### 8 5123 #### [facility] [address] CBC W/DIFFon 02-01-2019 ABS BASOPHILS 0.0 10*3/uL Normal 0.0-0.2 [facility] [place] Comment on above: Order Comment: Yes: Add to Previous draw if able Performed By: #### 5 0103 #### [facility] [address] ABS IMM GRANS 0.1 10*3/uL Normal 0.0-0.2 [facility] [place] Comment on above: Order Comment: Yes: Add to Previous draw if able Performed By: #### 5 0103 #### [facility] [address] ABS NEUTROPHILS 12.2 10*3/uL High 1.6-7.6 [facility] [place] Comment on above: Order Comment: Yes: Add to Previous draw if able Performed By: #### 5 0103 #### [facility] [address] Basophils/100 WBC (Bld) 0.2 % Normal 0.0-1.0 [facility] [place] Comment on above: Order Comment: Yes: Add to Previous draw if able Performed By: #### 5 0103 #### [facility] [address] [place] [address], [facility] Eosinophils (Bld) [#/Vol] 0.0 10*3/uL Normal 0.0-0.5 [facility] [place] Comment on above: Order Comment: Yes: Add to Previous draw if able Performed By: #### 5 0103 #### [facility] [address] [facility] [place] [address], [facility] Eosinophils/100 WBC (Bld) 0.0 % Normal 0.0-6.0 [facility] [place] Comment on above: Order Comment: Yes: Add to Previous draw if able Performed By: #### 5 0103 #### [facility] [address] [facility] Erythrocyte distribution width (RBC) [Ratio] 14.3 % Normal 11.5-15.0 [facility] [place] Comment on above: Order Comment: Yes: Add to Previous draw if able Performed By: #### 5 0103 #### [facility] [address] [facility] [address] Hematocrit (Bld) [Volume fraction] 39.9 % Normal 36.0-45.0 [facility] [place] Comment on above: Order Comment: Yes: Add to Previous draw if able Performed By: #### 5 0103 #### [facility] [address] [facility]. [address] Hemoglobin (Bld) [Mass/Vol] 11.8 g/dL Low 12.0-15.0 [facility] [place] Comment on above: Order Comment: Yes: Add to Previous draw if able Performed By: #### 5 0103 #### [facility] [address] [facility] [place] [address], [facility] IMMATURE GRANS 0.4 % Normal 0.0-1.0 [facility] [place] Comment on above: Order Comment: Yes: Add to Previous draw if able Performed By: #### 5 0103 #### [facility] [address] [facility] [place] [address], [facility] Lymphocytes (Bld) [#/Vol] 0.3 10*3/uL Low 1.2-4.0 [facility] [place] Comment on above: Order Comment: Yes: Add to Previous draw if able Performed By: #### 5 0103 #### [facility] [address] [facility] [place] [address], [facility] Lymphocytes/100 WBC (Bld) 2.6 % Low 20.0-45.0 [facility] [place] Comment on above: Order Comment: Yes: Add to Previous draw if able Performed By: #### 5 0103 #### [facility] [address] [facility] [place] [address], [facility] MCH (RBC) [Entitic mass] 28.6 pg Normal 27.0-33.0 [facility] [place] Comment on above: Order Comment: Yes: Add to Previous draw if able Performed By: #### 5 0103 #### [facility] [address] [facility] MCHC (RBC) [Mass/Vol] 29.6 g/dL Low 32.0-35.0 [facility] [place] Comment on above: Order Comment: Yes: Add to Previous draw if able Performed By: #### 3 #### [facility] [address] [facility] [place] [address], [facility] MCV (RBC) [Entitic vol] 96.6 fL Normal 82.0-98.0 [facility] [place] Comment on above: Order Comment: Yes: Add to Previous draw if able Performed By: #### 3 #### [facility] [address] [facility] [place] [address], [facility] Monocytes (Bld) [#/Vol] 0.1 10*3/uL Normal 0.1-1.0 [facility] [place] Comment on above: Order Comment: Yes: Add to Previous draw if able Performed By: #### 5 3 #### [facility] [address] [facility] [place] [address], [facility] MONOS 0.9 % Low 5.0-12.0 [facility] [place] Comment on above: Order Comment: Yes: Add to Previous draw if able Performed By: #### 5 0103 #### [facility] [address] [place] [id number], [facility] Neutrophils/100 WBC (Bld) 95.9 % High 40.0-72.0 [facility] [place] Comment on above: Order Comment: Yes: Add to Previous draw if able Performed By: #### 3 #### [facility] [address] [place] [id number], [facility] Nucleated RBC/100 WBC (Bld) [Ratio] 0 % Normal 0-0 [facility] [place] Comment on above: Order Comment: Yes: Add to Previous draw if able Performed By: #### 5 0103 #### [facility] [address] [place] [id number], [facility] PLAT CNT 240 10*3/uL Normal 150-400 [facility] [place] Comment on above: Order Comment: Yes: Add to Previous draw if able Performed By: #### 5 0103 #### [facility] [address] [place] [id number], [facility] RBC (Bld) [#/Vol] 4.13 10*6/uL Normal 3.80-5.00 [facility] [place] Comment on above: Order Comment: Yes: Add to Previous draw if able Performed By: #### 5 3 #### [facility] [address] [address], [facility] WBC (Bld) [#/Vol] 12.76 10*3/uL High 4.00-10.60 [facility] [place] Comment on above: Order Comment: Yes: Add to Previous draw if able Performed By: #### 5 0103 #### [facility] [address] [address], [place] COMP METABOLIC PANELon 02-01 Albumin [Mass/Vol] 4.1 g/dL Normal 3.5-5.7 [facility] [place] Comment on above: Order Comment: Yes: Add to Previous draw if able Performed By: #### 0 0121, 39097 #### [facility] [address] [address], [place] ALKALINE PHOSPH 70 IU/L Normal 34-104 [facility] [place] Comment on above: Order Comment: Yes: Add to Previous draw if able Performed By: #### 0 0121, 71902 #### [facility] [address] [address], [place] ALT [Catalytic activity/Vol] 14 U/L Normal 7-52 [facility] [place] Comment on above: Order Comment: Yes: Add to Previous draw if able Performed By: #### 0 0121, 99416 #### [facility] [address] [address], [place] AST [Catalytic activity/Vol] 16 U/L Normal 13-39 [facility] [place] Comment on above: Order Comment: Yes: Add to Previous draw if able Performed By: #### 0 0121, 87976 #### [facility] [address] [address], [place] Bilirubin [Mass/Vol] 0.5 mg/dL Normal 0.3-1.0 [facility] [place] Comment on above: Order Comment: Yes: Add to Previous draw if able Performed By: #### 0 0121, 58710 #### [facility] [address] [address], [place] Calcium [Mass/Vol] 9.0 mg/dL Normal 8.6-10.3 [facility] [place] Comment on above: Order Comment: Yes: Add to Previous draw if able Performed By: #### 0 0121, 57642 #### [facility] [address] [address], [place] Chloride [Moles/Vol] 98 mmol/L Normal 98-107 [facility] [place] Comment on above: Order Comment: Yes: Add to Previous draw if able Performed By: #### 0 0121, 21046 #### [facility] [address] [address], [place] CO2 [Moles/Vol] 31 mmol/L Normal 21-31 [facility] [place] Comment on above: Order Comment: Yes: Add to Previous draw if able Performed By: #### 0 0121, 60754 #### [facility] [address] [address], [place] Creatinine [Mass/Vol] 0.67 mg/dL Normal 0.60-1.20 [facility] [facility] [place] Comment on above: Order Comment: Yes: Add to Previous draw if able Performed By: #### 0 [id number], [id number] #### [facility] [address] [address], [place] GFR/1.73 sq M predicted among blacks MDRD (S/P/Bld) [Vol rate/Area] mL/min/{1.73_m2} Normal >60 [facility] [place] Comment on above: Order Comment: Yes: Add to Previous draw if able Result Comment: Calc ulation may not be valid for patients over 70 years Performed By: #### 0 [id number], [id number] #### [facility] [address] [address], [place] GFR/1.73 sq M predicted among non-blacks MDRD (S/P/Bld) [Vol rate/Area] mL/min/{1.73_m2} Normal >60 [facility] [place] Comment on above: Order Comment: Yes: Add to Previous draw if able Result Comment: Calc ulation may not be valid for patients over 70 years Performed By: #### 0 [id number], [id number] #### [facility] [address] [address], [place] Glucose [Mass/Vol] 245 mg/dL High 70-100 [facility] [place] Comment on above: Order Comment: Yes: Add to Previous draw if able Performed By: #### 0 [id number], [id number] #### [facility] [address] [address], [place] Potassium [Moles/Vol] 4.2 mmol/L Normal 3.5-5.1 [facility] [place] Comment on above: Order Comment: Yes: Add to Previous draw if able Performed By: #### 0 0121, [id number] #### [facility] [address] [address], [place] Protein [Mass/Vol] 7.1 g/dL Normal 6.0-8.3 [facility] [place] Comment on above: Order Comment: Yes: Add to Previous draw if able Performed By: #### 0 0121, [id number] #### [facility] [address] [address], [place] Sodium [Moles/Vol] 136 mmol/L Normal 136-145 [facility] [place] Comment on above: Order Comment: Yes: Add to Previous draw if able Performed By: #### 0 [id number], [id number] #### [facility] [address] [address], [place] Urea nitrogen [Mass/Vol] 13 mg/dL Normal 7-25 [facility] [place] Comment on above: Order Comment: Yes: Add to Previous draw if able Performed By: #### 0 [id number], [id number] #### [facility] [address] [address], [place] POC GLUCOSE LABon 02-01-2019 Glucose [Mass/Vol] 225 mg/dL High 70-100 [facility] [place] Comment on above: Performed By: #### 0 0121, [id number] #### [facility] [address] [address], [place] Glucose [Mass/Vol] 230 mg/dL High 70-100 [facility] [place] Comment on above: Performed By: #### 0 0121, [id number] #### [facility] [address] [address], [place] Glucose [Mass/Vol] 237 mg/dL High 70-100 [facility] [place] Comment on above: Performed By: #### 8 [id number] #### [facility] [address] [address], [place] Glucose [Mass/Vol] 247 mg/dL High 70-100 [facility] [place] Comment on above: Performed By: #### 8 [id number] #### [address] [address], [facility] PORTABLE CHEST 1 VIEWon 050 PORTABLE CHEST 1 VIEW [facility] [place] Department of Radiology [address] [place] [id number] ======== Patient Name: KAYLIE SALOMON : 1950 Sex: F Age: Race: White Pt. Location: [address] [place] [address] Patient Status: I Ordered Date: 01/31/2019 11:45:00 [...] findings. Electronically signed by:Rachael Cardenas. Transcribed by: [email or web address], User Resident: ROSA STRANGE Electronically Signed by: RACHAEL CARDENAS @ 02/01/2019 12:39 PM I personally read this/these film(s) with this resident Normal [facility] [place] Comment on above: Order Comment: R/O I nfiltrates PROCALCITONINon 02-01-2019 PROCALCITONIN 0.07 ng/mL Normal 0.00-0.10 [facility] [place] Comment on above: Order Comment: Yes: Add [...] and initial PCT<0.5ng/mL Performed By: #### 3 [id number] #### [facility] [address] TROPONIN-Ion 02-01-2019 Troponin I.cardiac [Mass/Vol] 0.08 ng/mL High 0.00-0.04 [facility] Comment on above: Order Comment: No: D o not add to previous draw Result Comment: REFE RENCE RANGES: 0.00 - 0.04 ng/ml NORMAL 0.05 - 0.50 ng/ml INDETERMINATE > 0.50 ng/ml CONSISTENT WITH AN M.I. Performed By: #### 3 [id number] #### [facility] [address] [place], [place] [id number] [place] [address] Troponin I.cardiac [Mass/Vol] 0.08 ng/mL High 0.00-0.04 [facility] Comment on above: Order Comment: No: D o not add to previous draw Result Comment: REFE RENCE RANGES: 0.00 - 0.04 ng/ml NORMAL 0.05 - 0.50 ng/ml INDETERMINATE > 0.50 ng/ml CONSISTENT WITH AN M.I. Performed By: #### 0 0121, [id number] #### [facility] [address] Cardiovascular Lab Reporton 01-16-2019 Cardiovascular Lab Report [facility] Patient Name: [facility] Kaylie Caballero MR #: [id number] Department of Physician: Pepe Alexandre M.D. Division of Service Date: 01/16/2019 Cardiology Birthdate: 1950 Adult Cardiovascular Room #: Services [place] [address] Cardiovascular Laboratory Report FINAL IMPRESSION: 1. Nonobstructive [...] the right radial artery was obtained. A 6-Indonesian glide sheath was inserted without difficulty. Bilateral [...] angled Glidewire. INDICATIONS: Troponin elevation, type 2 gqa-[id number] myocardial infarction. Electronically Signed by: Shemar Hudson M.D. 01/29/2019 08:36 A Shemar Hudson M.D. Date Dict: 01/16/2019/01:01 Criselda/Shemar Hudson M.D. Date Trans: 01/16/2019 02:39 P/kiran [id number] Normal [facility] [place] SWEAT CHLORIDEon 12-03-2018 SWEAT CHLORIDE 36 mmol/L Abnormal [facility] Comment on above: Order Comment: Right [id number] Left arm [id number] Result Comment: REFE RENCE VALUES <=29 mMol/L CYSTIC FIBROSIS IS UNLIKELY 30-59 mMol/L INTERMEDIATE >=60 mMol/L INDICATIVE OF CYSTIC FIBROSIS NOTE: SWEAT CHLORIDE VALUES LESS THAN 30 mMol/L HAVE BEEN DOCUMENTED IN GENETICALLY PROVEN CF PATIENTS. CLINICAL CORRELATION IS NECESSARY. Performed By: #### S WCH1 #### [facility] [address] [place] [address] WT COLLECTED 0.177 grams Normal [facility] Comment on above: Order Comment: Right [id number] Left arm [id number] Performed By: #### S WCH1 #### [facility] [address] [place] [address] SWEAT CHLORIDE 42 mmol/L Abnormal [facility] Comment on above: Order Comment: Doroteo keith fax results to Doctor Charles Landeros MD. Phone: [phone] Result Comment: REFE RENCE VALUES <=29 mMol/L CYSTIC FIBROSIS IS UNLIKELY 30-59 mMol/L INTERMEDIATE >=60 mMol/L INDICATIVE OF CYSTIC FIBROSIS NOTE: SWEAT CHLORIDE VALUES LESS THAN 30 mMol/L HAVE BEEN DOCUMENTED IN GENETICALLY PROVEN CF PATIENTS. CLINICAL CORRELATION IS NECESSARY. Performed By: #### S WCH1 #### [facility] [address] [place] [address] WT COLLECTED 0.215 grams Normal [facility] Comment on above: Order Comment: Doroteo keith fax results to Doctor Charles Landeros MD. Phone: [phone] Performed By: #### S WCH1 #### [facility] [address] [place] [address] Vital Signs Date Time Vital Sign Value Performing Clinician Faci lity 07-30-2024 13:54-0400 Body height 167.7 cm Reginald Aragon MD Work Phone: [facility] 07-30-2024 13:54-0400 Body mass index (BMI) [Ratio] 40.64 kg/m2 Reginald Aragon MD Work Phone: [facility] 07-30-2024 13:54-0400 Body temperature 97.3 [degF] Reginald Aragon MD Work Phone: [facility] 07-30-2024 13:54-0400 Body weight 114.3 kg Reginald Aragon MD Work Phone: [facility] 07-30-2024 13:54-0400 Diastolic blood pressure 63 mm[Hg] Reginald Aragon MD Work Phone: [facility] 07-30-2024 13:54-0400 Heart rate 81 /min Reginald Aragon MD Work Phone: [facility] 07-30-2024 13:54-0400 Respiratory rate 18 /min Reginald Aragon MD Work Phone: [facility] 07-30-2024 13:54-0400 SaO2% (BldA) [Mass fraction] 94 % Reginald Aragon MD Work Phone: [facility] 07-30-2024 13:54-0400 Systolic blood pressure 96 mm[Hg] Reginald Aragon MD Work Phone: [facility] 03-14-2023 12:45-0400 Body height 167.7 cm Reginald Aragon MD Work Phone: [facility] 03-14-2023 12:45-0400 Body temperature 97.7 [degF] Reginald Aragon MD Work Phone: [facility] 03-14-2023 12:45-0400 Body weight 119.93 kg Reginald Aragon MD Work Phone: [facility] 03-14-2023 12:45-0400 Diastolic blood pressure 63 mm[Hg] Reginald Aragon MD Work Phone: [facility] 03-14-2023 12:45-0400 Heart rate 68 /min Reginald Aragon MD Work Phone: [facility] 03-14-2023 12:45-0400 Respiratory rate 16 /min Reginald Aragon MD Work Phone: [facility] 03-14-2023 12:45-0400 SaO2% (BldA) [Mass fraction] 97 % Reginald Aragon MD Work Phone: [facility] 03-14-2023 12:45-0400 Systolic blood pressure 114 mm[Hg] Reginald Araogn MD Work Phone: [facility] 09-13-2022 12:57-0500 Body height 167.7 cm Samantha Benitez SHIRT PRESSER.ENAMEL PULVERIZER Work Phone: [facility] 09-13-2022 12:57-0500 Body temperature 97.59 [degF] Samantha Benitez SHIRT PRESSER.ENAMEL PULVERIZER Work Phone: [facility] 09-13-2022 12:57-0500 Body weight 120.47 kg Samantha Benitez SHIRT PRESSER.ENAMEL PULVERIZER Work Phone: [facility] 09-13-2022 12:57-0500 Diastolic blood pressure 68 mm[Hg] Samantha Benitez SHIRT PRESSER.ENAMEL PULVERIZER Work Phone: [facility] 09-13-2022 12:57-0500 Heart rate 93 /min Samantha Benitez SHIRT PRESSER.ENAMEL PULVERIZER Work Phone: [facility] 09-13-2022 12:57-0500 Respiratory rate 16 /min Samantha Benitez SHIRT PRESSER.ENAMEL PULVERIZER Work Phone: [facility] 09-13-2022 12:57-0500 SaO2% (BldA) [Mass fraction] 100 % Samantha Benitez SHIRT PRESSER.ENAMEL PULVERIZER Work Phone: [facility] 09-13-2022 12:57-0500 Systolic blood pressure 120 mm[Hg] Samantha Benitez SHIRT PRESSER.ENAMEL PULVERIZER Work Phone: [facility] 03-14-2022 14:12-0400 Body height 167.7 cm Reginald Aragon MD Work Phone: [facility] 03-14-2022 14:12-0400 Body temperature 97.81 [degF] Reginald Aragon MD Work Phone: [facility] 03-14-2022 14:12-0400 Body weight 120.57 kg Reginald Aragon MD Work Phone: [facility] 03-14-2022 14:12-0400 Diastolic blood pressure 76 mm[Hg] Reginald Aragon MD Work Phone: [facility] 03-14-2022 14:12-0400 Heart rate 98 /min Reginald Aragon MD Work Phone: [facility] 03-14-2022 14:12-0400 Respiratory rate 16 /min Reginald Aragon MD Work Phone: [facility] 03-14-2022 14:12-0400 SaO2% (BldA) [Mass fraction] 95 % Reginald Aragon MD Work Phone: [facility] 03-14-2022 14:12-0400 Systolic blood pressure 114 mm[Hg] Reginald Aragon MD Work Phone: [facility] Encounters Encounter Date Encounter Type Care Provider Facility Start: 08-04-2024 End: 08-04-2024 ambulatory Oh Kaufman Facility:[facility] Start: 07-30-2024 End: 07-30-2024 Patient encounter procedure Reginald Aragon MD Work Phone: Hematology/Oncology Start: 07-30-2024 End: 07-30-2024 ambulatory Reginald Aragon MD Work Phone: Hematology/Oncology Comment on above: Malignant neoplasm o f overlapping sites of right breast in female, estrogen receptor negative (HCC) (Primary Dx) Start: 07-28-2024 ambulatory Inderjit Ly acility:[facility] Start: 06-25-2024 End: 06[facility]20[facility]: 06-17-2024 End: 06-17-2024 ambulatory [facility] Start: 05-20-2024 End: 05-20-2024 ambulatory [facility] Start: 05-13-2024 End: 05-13-2024 ambulatory [facility] Start: 05-06-2024 End: 05-06-2024 ambulatory OH L CON [facility] Start: 05-05-2024 End: 05-05-2024 ambulatory [facility] Start: 03-30-2024 End: 03-30-2024 ambulatory Oh L Con Facility:[facility] Start: 03-05-2024 End: 03-05-2024 ambulatory Oh L Con Facility:[facility] Start: 02-11-2024 End: 02-11-2024 ambulatory JENSEN CARTER Not Available Start: 02-11-2024 End: 02-11-2024 ambulatory [facility] Start: 01-09-2024 End: 01-09-2024 ambulatory Oh L Con Facility:[facility] Start: 01-07-2024 End: 01-07-2024 ambulatory [facility] Start: 01-06-2024 End: 01-29-2024 ambulatory [place] L CON [facility] Start: 12-11-2023 End: 12-11-[address] [facility] Start: 11-27-2023 End: 12-30-2023 ambulatory [place] L CON [facility] Start: 10-31-2023 ambulatory [facility] Start: 10-31-2023 End: 10-31-2023 ambulatory [facility] Start: 10-24-2023 End: 10-24-[address] [facility] Start: 09-17-2023 End: 09-17-2023 ambulatory [facility] Start: 09-12-2023 Telephone encounter Carin Salgado Hematology/Oncology Comment on above: Orders Start: 09-12-2023 End: 09-12-2023 ambulatory REGINALD ARAGON Facility:[facility] Start: 08-29-2023 End: 08-29-2023 ambulatory MELISSA TORRES [facility] [place] Start: 08-19-2023 End: 08-19-2023 ambulatory [facility] Start: 06-07-2023 Telephone encounter Orly Zhao RN Work Phone: Hematology/Oncology Comment on above: Orders Start: 04-04-2023 Telephone encounter Chary tirado RN Work Phone: Hematology/Oncology Comment on above: Results Start: 03-14-2023 End: 03-14-2023 ambulatory Reginald Aragon MD Work Phone: Hematology/Oncology Comment on above: Malignant neoplasm o f overlapping sites of right breast in female, estrogen receptor negative (HCC) (Primary Dx); History of iron deficiency Start: 03-14-2023 End: 03-14-2023 Patient encounter procedure Reginald Aragon MD Work Phone: [facility] Start: 10-11-2022 Refill Reginald Aragon MD Work Phone: Hematology/Oncology Comment on above: Refill Request Start: 09-13-2022 End: 09-13-2022 ambulatory Samantha Benitez APRN.ENAMEL PULVERIZER Work Phone: Hematology/Oncology Comment on above: Malignant neoplasm o f overlapping sites of right breast in female, estrogen receptor negative (HCC) (Primary Dx); Iron deficiency anemia secondary to inadequate dietary iron intake Start: 09-13-2022 End: 09-13-2022 Patient encounter procedure Samantha Benitez APRN.ENAMEL PULVERIZER Work Phone: [facility] Start: 08-14-2022 End: 08-15-[address] CHARLES LANDEROS Facility:[facility] Start: 07-23-2022 End: 07-23-2022 ambulatory MITCHEL WARREN Facility:[facility] Start: 07-16-2022 Refill Samantha Emmanuel FLORES Work Phone: Hematology/Oncology Comment on above: Refill [...] Evaluation and management of inpatient ARACELI SANDHU Facility:[facility] Start: 01-16-2019 End: 01-17-2019 Patient encounter procedure EHAB A MORGAN Facility:[facility] Start: 12-03-2018 Patient encounter procedure Facility:[facility] Procedures Date Procedure Procedure Detail Performing Clinician Start: 04-13-2022 Lipid 1996 panel - S migdalia or Plasma Carin Ramos RN Start: 08-17-2021 Ct thorax w/contrast material Reginald Aragon MD Work Phone: Start: 05-27-2020 Adult depression screening assessment Reginald Aragon MD Work Phone: Plan of Treatment Date Care Activity Detail Author Start: 07-30-2027 Diabetes Screening Diabetes Screen[facility] Start: 04-13-2027 Lipid panel Lipid Screening [facility] Start: 04-13-2027 LIPID SCREEN LIPID SCREEN [facility] Start: 12-15-2026 LIPID SCREEN LIPID SCREEN [facility] Start: 09-12-2026 Diabetes Screening Diabetes Screenin g [facility] Start: 03-14-2026 DIABETES SCREEN DIABETES SCREEN [facility] Start: 09-13-2025 DIABETES SCREEN DIABETES SCREEN [facility] Start: 03-14-2025 DIABETES SCREEN DIABETES SCREEN [facility] Start: 03-04-2025 ambulatory Ambulatory Facility:[facility] [place] Start: 10-05-2024 ambulatory Ambulatory Facility:[facility] [place] Start: 08-17-2024 DIABETES SCREEN DIABETES SCREEN [facility] Start: 07-30-2024 End: 07-30-2024 Follow-up encounter 07/30/2024 2:15 PM EDT Visit (SP) Office Hematology/Oncology [address] [place] [address] Reginald Aragon MD [address] [place] [address] 10 month follow up lab / left [...] reminder to her home. Start: 07-30-2024 End: 10-29-2024 Cancer Ag 27-29 [Units/volume] in Serum or Plasma [facility] Work Phone: Comment on above: Expected: 07/30/2024 , Expires: 10/29/2024 Start: 07-30-2024 End: 07-30-2024 Patient encounter procedure 07/30/2024 2:00 PM EDT Office Visit [facility] [address] [place] [address] 10 month follow up lab / left detailed message about moving this appt from -. Asked her to call and confirm new day and time. Mailed new reminder to her home. [facility] Comment on above: 10 month follow up l ab / left detailed message about moving this appt from -. Asked her to call and confirm new day and time. Mailed new reminder to her home. Start: 05-31-2024 Covid-19 Vaccine () Covid-19 Vaccine ( season) [facility] Start: 05-31-2024 Influenza vaccination Influenza Vacc ine (#1) [facility] Start: 09-30-2023 Advance Directive Discussion Advance Directive Discussion [facility] Start: 05-31-2023 Influenza vaccination INFLUENZA (#1) [facility] Start: 03-14-2023 End: 05-14-2023 Cancer Ag 27-29 [Units/volume] in Serum or Plasma CA 27.29 BLOOD Lab Routine Malignant neoplasm of overlapping sites of right breast in female, estrogen receptor negative (HCC) Iron deficiency anemia secondary to inadequate dietary iron intake Expected: 03/14/2023, Expires: 05/14/2023 [facility] Work Phone: Comment on above: Expected: 03/14/2023 , Expires: 05/14/2023 Start: 03-14-2023 End: 05-14-2023 CBC W Auto Differential panel - Blood CBC + DIFF Lab Routine Malignant neoplasm of overlapping sites of right breast in female, estrogen receptor negative (HCC) Iron deficiency anemia secondary to inadequate dietary iron intake Expected: 03/14/2023, Expires: 05/14/2023 [facility] Work Phone: Comment on above: Expected: 03/14/2023 , Expires: 05/14/2023 Start: 03-14-2023 End: 05-14-2023 Comprehensive metabolic 2000 panel - Serum or Plasma COMP METABOLIC PANEL Lab Routine Malignant neoplasm of overlapping sites of right breast in female, estrogen receptor negative (HCC) Iron deficiency anemia secondary to inadequate dietary iron intake Expected: 03/14/2023, Expires: 05/14/2023 [facility] Work Phone: Comment on above: Expected: 03/14/2023 , Expires: 05/14/2023 Start: 01-04-2023 RSV Vaccine (1 - 1-d ose 75+ series) RSV Vaccine (1 - 1-dose 75+ series) [facility] Start: 09-30-2022 ADVANCE DIRECTIVE DISCUSSION ADVANCE DIRECTIVE DISCUSSION [facility] Start: 09-30-2022 DEPRESSION ASSESSMENT DEPRESSION ASS ESSMENT [facility] Start: 09-13-2022 End: 11-13-2022 Cancer Ag 27-29 [Units/volume] in Serum or Plasma [facility] Work Phone: Comment on above: Expected: 09/13/2022 , Expires: 11/13/2022 Start: 07-03-2022 COVID-19 VACCINE (5 - Booster for Moderna series) COVID-19 VACCINE (5 - Booster for Moderna series) [facility] Start: 07-03-2022 COVID-19 VACCINE (5 - Moderna series) COVID-19 VACCINE (5 - Moderna series) [facility] Start: 05-31-2022 Influenza vaccination C [facility] Start: 09-30-2021 ADVANCE DIRECTIVE DISCUSSION ADVANCE DIRECTIVE DISCUSSION [facility] Start: 09-30-2021 DEPRESSION ASSESSMENT DEPRESSION ASS ESSMENT [facility] Start: 05-27-2021 Adult depression screening assessment DEPRESSION SCREENING [facility] Start: 12-04-2015 SHINGRIX VACCINE (1 of 2) SHINGRIX VACCINE (1 of 2) [facility] Start: 12-04-2015 SHINGRIX VACCINE (2 of 3) SHINGRIX VACCINE (2 of 3) [facility] Start: 01-04-2013 BONE DENSITY BONE DENSITY [facility] Start: 01-04-2013 Screening for osteoporosis Bone Density Screening [facility] Start: 2008 RSV Vaccine (1 - 1-d ose 60+ series) RSV Vaccine (1 - 1-dose 60+ series) [facility] Start: 01-04-1993 COLOGUARD (FIT-DNA) COLOGUARD (FIT-D NA) [facility] Start: 01-04-1993 Colonoscopy COLONOSCOPY [facility] Start: 01-04-1993 COLORECTAL CANCER SCREENING COLORECTAL CANCER SCREENING [facility] Start: 01-04-[address] COLONOGRAPHY [facility] Start: 01-04-1993 FECAL OCCULT BLOOD FECAL OCCULT BLOO D [facility] Start: 01-04-1993 Screening for malign ant neoplasm of colon [facility] Start: 01-04-1993 SIGMOIDOSCOPY SIGMOIDOSCOPY [facility] Start: 1988 Mammography MAMMOGRAM [facility] Start: 01-04-1967 Urine microalbumin profile [facility] Start: 01-04-1966 Anxiety Screening Anxiety Screening [facility] Start: 01-04-1966 Depression Screening Depression Scre ening [facility] Start: 01-04-1966 HEPATITIS C SCREENING HEPATITIS C [facility] Start: 01-04-1966 Hepatitis C screening Hepatitis C [facility] Start: 01-04-1953 COVID-19 VACCINE (#1) COVID-19 VACCI NE (#1) [facility] Start: 1950 COVID-19 VACCINE (#1) COVID-19 VACCI NE (#1) [facility] End: 04-13-2023 Diagnostic mammography computer-aided detcj uni [facility] LT Radiology Routine Malignant neoplasm of overlapping sites of right breast in female, estrogen receptor negative (HCC) 1 Occurrences starting 03/14/2022 until 04/13/2023 [facility] Work Phone: Comment on above: 1 Occurrences starti ng 03/14/2022 until 04/13/2023 End: 07-06-2024 RAMBO DIAGNOSTIC LEFT [facility] LEFT Radiology Routine Malignant neoplasm of overlapping sites of right breast in female, estrogen receptor negative (HCC) 1 Occurrences starting 06/07/2023 until 07/06/2024 [facility] Work Phone: Comment on above: 1 Occurrences starti ng 06/07/2023 until 07/06/2024 [facility] Immunizations Immunization Date Immunization Notes Care Provider [facility] 06-24-2024 COVID-19 vaccine, ag e 12+ yr (MODERNA) Reginald Aragon MD Work Phone: [facility] 06-24-2024 influenza, high dose seasonal, preservative-free Reginald Aragon MD Work Phone: [facility] 06-24-2024 pneumococcal conjuga te (PCV20) vaccine, 20 valent (PREVNAR 20) Reginald Aragon MD Work Phone: [facility] 06-24-2024 respiratory syncytia l virus (RSV) vaccine, adjuvanted (AREXVY) Reginald Aragon MD Work Phone: [facility] 07-25-2023 COVID-19 vaccine, ag e 12+ yr (MODERNA) Reginald Aragon MD Work Phone: [facility] 07-25-2023 influenza (HD-IIV4) vaccine, age 65+ yr, high dose, quadrivalent, PF (FLUZONE HIGH-DOSE) Reginald Aragon MD Work Phone: [facility] 07-25-2023 influenza virus vacc ine, unspecified formulation [facility] Work Phone: [facility] 07-11-2022 influenza (HD-IIV4) vaccine, age 65+ yr, high dose, quadrivalent, PF (FLUZONE HIGH-DOSE) Reginald Aragon MD Work Phone: [facility] 08-07-2021 influenza (HD-IIV4) vaccine, age 65+ yr, high dose, quadrivalent, PF (FLUZONE HIGH-DOSE) Reginald Aragon MD Work Phone: [facility] 11-24-2020 COVID-19 original vaccine, full dose, monovalent (MODERNA) Reginald Aragon MD Work Phone: [facility] 10-27-2020 COVID-19 original vaccine, full dose, monovalent (MODERNA) Reginald Aragon MD Work Phone: [facility] 07-07-2020 influenza (aIIV4) vaccine, age 65+ yr, quadrivalent, PF (FLUAD QUAD) Reginald Aragon MD Work Phone: [facility] 07-21-2019 influenza, high dose seasonal, preservative-free Reginald Aragon MD Work Phone: [facility] 07-21-2019 pneumococcal polysaccharide vaccine, 23 valent Reginald Aragon MD Work Phone: [facility] 06-26-2018 influenza, high dose seasonal, preservative-free Reginald Aragon MD Work Phone: [facility] 06-26-2018 pneumococcal conjuga te vaccine, 13 valent Reginald Aragon MD Work Phone: [facility] 07-17-2017 influenza, high dose seasonal, preservative-free Reginald Aragon MD Work Phone: [facility] 07-01-2017 influenza, injectabl e, quadrivalent, preservative free Reginald Aragon MD Work Phone: [facility] 10-09-2015 zoster vaccine, live Reginald roche MD Work Phone: [facility] 07-11-2015 influenza, seasonal, injectable, preservative free Reginald Aragon MD Work Phone: [facility] 07-11-2015 pneumococcal conjuga te vaccine, 13 valent Reginald Aragon MD Work Phone: [facility] Payers Date Payer Category Payer Self-pay 2022 [place] [id number] 2022-Present [phone] [address] [place] [id number] Medicaid [id number] 2018 [place] [id number] 2018-Present [phone] [address] [place] [address] Medicaid [id number] 1988 Medicare MEDICARE MEDICAR E A AND B [id number] 1988-Present [phone] [address] [address] [place] [address] Medicare [id number] 1988 Medicare [id number] 1959 Medicaid [id number] 1959 Medicare [id number] 1959 Self-pay [id number] 1948 Unknown [id number] 1948 Unknown [id number] 2.16.840.1.970870.3.579.2.647 1948 Unknown [id number] 2.16.840.1.746972.3.579.2.647 1948 Unknown [id number] 2.16.840.1.101801.3.579.2.593 1948 Unknown [id number] 2.16.840.1.096478.3.579.2.593 1948 Unknown [id number] 2.16.840.1.774795.3.579.2.593 1948 Unknown [id number] 2..840.1.240908.3.579.2.593 1948 Unknown [id number] 2.16.840.1.852349.3.579.2.1259 1948 Unknown [id number] 2.840.1.617954.3.579.2.1286 1948 Unknown [id number] 2.840.1.524843.3.579.2.1286 1948 Unknown [id number] 2.840.1.662708.3.579.2.1286 1948 Unknown [id number] 2.840.1.037641.3.579.2.1286 1948 Unknown [id number] 2.840.1.744315.3.579.2.1286 1948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 right breast in female, estrogen receptor negative (HCC)- Primary Iron deficiency anemia secondary to inadequate dietary iron intake [facility] Diagnosis Malignant neoplasm of overlapping sites of right breast in female, estrogen receptor negative (HCC)- Primary History of iron deficiency Personal history of diseases of blood and blood-forming organs [facility] Diagnosis Malignant neoplasm of overlapping sites of right breast in female, estrogen receptor negative (HCC)- Primary [facility] Diagnosis Malignant neoplasm of overlapping sites of right breast in female, estrogen receptor negative (HCC)- Primary Hx of total mastectomy of right breast Personal history of surgery to other organs [facility] Diagnosis Lung nodules Other nonspecific abnormal finding of lung field [facility] [place] [facility]* Diagnosis Malignant neoplasm of overlapping sites of right breast in female, estrogen receptor negative (HCC)- Primary [facility] Diagnostic Procedure Only (Routine) - Pending Review Specialty Diagnoses / Procedures Referred By Ambrose thomas Referred To Contact [facility] Diagnoses Malignant neoplasm of overlapping sites of right breast in female, estrogen receptor negative (HCC) Procedures RAMBO DIAGNOSTIC LT DIAGNOSTIC MAMMOGRAPHY COMPUTER-AIDED DETCJ [facility] Reginald Aragon MD [address] [place] [address] [place] [address] [facility] [address] [place] [id number] Referral ID Status Reason Start Date Expiration Date Visits Requested Visits Authorized [id number] Pending Review Auto-Generat ed Referral 03/14/2022 04/13/2023 1 1 [facility] for referral (narrative)* Diagnostic Procedure Only (Routine) - Pending Review Specialty Diagnoses / Procedures Referred By Ambrose thomas Referred To Contact [facility] Diagnoses Malignant neoplasm of overlapping sites of right breast in female, estrogen receptor negative (HCC) Procedures RAMBO DIAGNOSTIC LEFT DIAGNOSTIC MAMMOGRAPHY COMPUTER-AIDED DETCJ [facility] Shayy Bernabe PA-C [address] [place] [address] [place] [address] [facility] [address] [place] [address] Referral ID Status Reason Start Date Expiration Date Visits Requested Visits Authorized [id number] Pending Review Auto-Generat ed Referral 06/07/2023 07/06/2024 1 1 [facility] Summary Purpose Family History No Family [...] Records Found Hospital Course Note MR#: [id number] [facility] Pt. Name: Kaylie Salomon Admitted: 01/31/2019 Discharged: 02/02/2019 Date of : 1950 Physician: Tramaine Sandhu MD DISCHARGE SUMMARY PRIMARY CARE PHYSICIAN: No PCP. CONSULTING SERVICE: None. ADMITTING DIAGNOSES: 1. Mizpo-zv-qfhsczk hypercapnic hypoxic respiratory failure. 2. Atrial fibrillation with rapid ventricular response. 3. Moderate persistent asthma with exacerbation. 4. Productive cough. DISCHARGE DIAGNOSES: 1. Wvaew-tc-vrwracb hypoxemic/hypercapnic respiratory failure. 2. Moderate persistent asthma [...] Specialty Diagnoses / Procedures Referred By Ambrose t Referred To Contact Diagnoses Malignant neoplasm of overlapping sites of right breast in female, estrogen receptor negative (HCC) Hx of total mastectomy of right breast Procedures BREAST PROSTHESIS, MASTECTOMY BRA BREAST PROSTHESIS, MASTECTOMY BRA Reginald Aragon MD [address] [place] [address] [place] [address] Referral ID Status Reason Start Date Expiration Date V isits Requested Visits Authorized [id number] Closed Auto-Generate d Referral 09/12/2023 09/12/2024 1 1 Additional Source Comments INFORMATION SOURCE (unrecogn ized section and content) DATE CREATED AUTHOR 12/05/2018 [facility] DATE CREATED AUTHOR AUTHOR'S ORGANIZ ATION 05/13/2019 [facility] DATE CREATED AUTHOR AUTHOR'S ORGANIZ ATION 09/21/2022 [facility] DATE CREATED AUTHOR AUTHOR'S ORGANIZ ATION 02/13/[address] [facility] [address] [facility] DATE CREATED AUTHOR AUTHOR'S ORGANIZ ATION 05/22/2024 [facility] DATE CREATED AUTHOR AUTHOR'S ORGANIZ ATION 06/30/2024 [facility] DATE CREATED AUTHOR AUTHOR'S ORGANIZ ATION 07/29/2024 [facility] DATE CREATED AUTHOR AUTHOR'S ORGANIZ ATION 08/01/2024 [facility] DATE CREATED AUTHOR AUTHOR'S ORGANIZ ATION 08/05/2024 [facility] Source Comments (unrecognize d section and content) In the event this informatio n is protected by the Federal Confidentiality of Alcohol and Drug Abuse Patient Records regulations: The Federal rules restrict any use of the information to criminally investigate or prosecute any alcohol or drug abuse patient.[facility] the event this information is protected by the Federal Confidentiality of Alcohol and Drug Abuse Patient Records regulations: The Federal rules restrict any use of the information to criminally investigate or prosecute any alcohol or drug abuse patient.[facility] the event this information is protected by the Federal Confidentiality of Alcohol and Drug Abuse Patient Records regulations: The Federal rules restrict any use of the information to criminally investigate or prosecute any alcohol or drug abuse patient.[facility] the event this information is protected by the Federal Confidentiality of Alcohol and Drug Abuse Patient Records regulations: The Federal rules restrict any use of the information to criminally investigate or prosecute any alcohol or drug abuse patient.[facility] the event this information is protected by the Federal Confidentiality of Alcohol and Drug Abuse Patient Records regulations: The Federal rules restrict any use of the information to criminally investigate or prosecute any alcohol or drug abuse patient.[facility] Hospital[facility] the event this information is protected by the Federal Confidentiality of Alcohol and Drug Abuse Patient Records regulations: The Federal rules restrict any use of the information to criminally investigate or prosecute any alcohol or drug abuse patient.[facility] the event this information is protected by the Federal Confidentiality of Alcohol and Drug Abuse Patient Records regulations: The Federal rules restrict any use of the information to criminally investigate or prosecute any alcohol or drug abuse patient.[facility] the event this information is protected by the Federal Confidentiality of Alcohol and Drug Abuse Patient Records regulations: The Federal rules restrict any use of the information to criminally investigate or prosecute any alcohol or drug abuse patient.[facility] the event this information is protected by the Federal Confidentiality of Alcohol and Drug Abuse Patient Records regulations: The Federal rules restrict any use of the information to criminally investigate or prosecute any alcohol or drug abuse patient.[facility] the event this information is protected by the Federal Confidentiality of Alcohol and Drug Abuse Patient Records regulations: The Federal rules restrict any use of the information to criminally investigate or prosecute any alcohol or drug abuse patient.[facility] Reason for Visit (unrecogniz ed section and content) Reason Comments Breast Cancer 6 month follow up Reason Comments Refill Request Reason Comments Breast Cancer Follow up Reason Comments Breast Cancer 1 year follow up Reason Comments Results Reason Comments Orders Reason Comments Radiology CT Care Teams (unrecognized sec tion and content) Employment Attorney Relationship Specialty Start Date End Date Charles Landeros MD [address] [place] [address] PCP - General Family Practice 03/11/19 Samantha Benitez, SHIRT PRESSER.ENAMEL PULVERIZER [address] [facility] [place] [address] Physician Secondary Set Up Man Hematology/Oncology 04/27/19 Reginald Aragon MD [address] [place] [address] Physician Hematology/Oncology 12/07/19 Employment Attorney Relationship Specialty Start Date End Date Charles Landeros MD [address] [place] [address] PCP - General Family Medicine 03/11/19 Samantha Benitez, SHIRT PRESSER.ENAMEL PULVERIZER [address] [place] [address] Physician Secondary Set Up Man Hematology/Oncology 04/27/19 Reginald Aragon MD [address] [place], [place] [address] Physician Hematology/Oncology 12/07/19 Employment Attorney Relationship Specialty Start Date End Date Charles Landeros MD [address] [place] [address] PCP - General Family Medicine 03/11/19 Samantha Benitez, SHIRT PRESSER.ENAMEL PULVERIZER [address] [place] [address] Physician Secondary Set Up Man Hematology/Oncology 04/27/19 Reginald Aragon MD [address] [place] [address] Physician Hematology/Oncology 12/07/19 Employment Attorney Relationship Specialty Start Date End Date Charles Landeros MD [address] [place] [address] PCP - General Family Medicine 03/11/19 Samantha Benitez, SHIRT PRESSER.ENAMEL PULVERIZER [address] [place] [address] Physician Secondary Set Up Man Hematology/Oncology 04/27/19 Reginald Aragon MD [address] [place] [address] Physician Hematology/Oncology 12/07/19 Employment Attorney Relationship Specialty Start Date End Date Charles Landeros MD [address] [place] [place] [address] PCP - General Family Medicine 03/11/19 Samantha Benitez, SHIRT PRESSER.ENAMEL PULVERIZER [address] [place] [address] Physician Secondary Set Up Man Hematology/Oncology 04/27/19 Reginald Aragon MD [address] [place] [address] Physician Hematology/Oncology 12/07/19 Employment Attorney Relationship Specialty Start Date End Date Charles Landeros MD [address] [place] [address] PCP - General Family Medicine 03/11/19 Samantha Benitez, SHIRT PRESSER.ENAMEL PULVERIZER [address] [facility] [place] [address] Physician Secondary Set Up Man Hematology/Oncology 04/27/19 Reginald Aragon MD [address] [facility] [place] [address] Physician Hematology/Oncology 12/07/19 Employment Attorney Relationship Specialty Start Date End Date Charles Landeros MD [address] [place] [id number] PCP - General Family Medicine 03/11/19 Samantha Benitez, SHIRT PRESSER.ENAMEL PULVERIZER [address] [facility] [place] [address] Physician Secondary Set Up Man Hematology/Oncology 04/27/19 Reginald Aargon MD [address] [facility] [place] [address] Physician Hematology/Oncology 12/07/19 Employment Attorney Relationship Specialty Start Date End Date Charles Landeros MD [address] [place] [address] PCP - General Family Medicine 03/11/19 Samantha Benitez, SHIRT PRESSER.ENAMEL PULVERIZER [address] [facility] [place] [address] Physician Secondary Set Up Man Hematology/Oncology 04/27/19 Reginald Aragon MD [address] [facility] [place] [address] Physician Hematology/Oncology 12/07/19 Employment Attorney Relationship Specialty Start Date End Date Charles Landeros MD [address] [place] [address] PCP - General Family Medicine 03/11/19 Samantha Benitez APRN.ENAMEL PULVERIZER [address] [facility] [place] [address] Physician Secondary Set Up Man Hematology/Oncology 04/27/19 Reginald Aragon MD [address] [place] [address] Physician Hematology/Oncology 12/07/19 FOR RECORDS PERTAINING TO [...] BE BASED ON THE PRIMARY CLINICAL RECORDS. [employer] provides no warranty or guarantee of the accuracy or completeness of information in this document.
== END 2024-08-17 10:35 | disposition home or self-care (01) ==
LOC: EC 10:34
PROVIDERS: PCP Nurse Practitioner; Visit Provider Orthopaedic Surgery
DX: S42.295D Other nondisplaced fracture of upper end of left humerus, subsequent encounter for fracture with routine healing (principal)
CPT/HCPCS: 73030

== ENCOUNTER 2024-08-26 12:30 | Outpatient (OUT) | payer MEDICARE, MEDICAID, SELFPAY ==
--- NOTE | 2024-08-26 12:43 | CA_ITS ---
Patient Name: RUBI SALOMON MR#: [id number] : 1950 Exam Date: 08/26/2024 Ordering Doctor: ROSA VILLA CNP ECHOCARDIOGRAM REPORT PROCEDURE: CA ECHO LIMITED INDICATIONS: Acute/chronic diastolic heart failure, Eval right sided pres COMPARISON: None. DESCRIPTION: Limited ECHOCARDIOGRAM Real-time transthoracic echocardiography with 2D and M-mode performed and limited Doppler. QUALITY: Technical quality was good. LEFT VENTRICLE: Normal chamber size. Borderline left ventricular hypertrophy. Global left ventricular systolic function is at the lower limits of normal. LV EF: Estimated left ventricular ejection fraction is 50-55%. DIASTOLIC: ATRIAL SEPTUM: LEFT ATRIUM: Severe dilatation. RIGHT ATRIUM: Mild dilatation. RIGHT VENTRICLE: Normal chamber size. Normal right ventricular systolic function. TRICUSPID VALVE: Normal mobility and thickness. No stenosis with mild regurgitation. Mild pulmonary hypertension. RVSP 44 mmHg MITRAL VALVE: Normal mobility and thickness. Mild mitral annular calcification. AORTIC VALVE: Normal trileaflet appearance. Normal leaflet mobility. AORTIC ROOT: Normal diameter and appearance. PULMONIC VALVE: Normal thickness and mobility. PERICARDIUM: No evidence of pericardial effusion. IVC: Collapses with inspirations. Mild dilatation measuring 2.2 cm PLEURA: CONCLUSION: 1. Left ventricular systolic function is at the lower limits of normal. LVEF is 50 to 55%. 2. Normal right ventricular size and systolic function. 3. Severe left atrial dilatation. 4. Mild tricuspid regurgitation. 5. Mildly elevated right-sided pressures. RVSP is 44 mmHg. Adult Echocardiography Procedure Report Left Ventricle LVEDD (3.7 - 5.6 cm): 5.71 cm LVESD (2.2 - 4.0 cm): 3.82 cm LVIVS thickness (0.6 - 1.2 cm): 1.03 cm LVPW thickness (0.5 - 1.0 cm): 0.76 cm LVOT Diameter 2.14 cm Left Ventricular Ejection Fraction: 50-55 % Left Atrium LA Volume Index (2D A2C): 59.05 ml/m2 Left Atrium Systolic Dimension: 5.08 cm Mitral Valve Right Ventricle RV Internal Diastolic Dimension: 3.76 cm Aorta AO Root Diam: 3.33 cm Ascending Ao Diam: 3.56 cm Aortic Valve Tricuspid Valve Peak Velocity (Regurgitant Flow): 2.67 m/s, 2.46 m/s, 2.48 m/s, 2.76 m/s, 2.96 m/s, 3.00 m/s Pulmonic Valve Right Atrium Right Atrium Systolic Pressure: 90.03 ml, 90.03 ml Dictated by: Yair Elizabeth M.D. on 08/27/2024 at 14:41 Approved by: Yair Elizabeth M.D. on 08/27/2024 at 14:45
== END 2024-08-26 12:31 | disposition home or self-care (01) ==
LOC: CARD 12:31
PROVIDERS: PCP Nurse Practitioner; Visit Provider Nurse Practitioner Family
DX: I50.33 Acute on chronic diastolic (congestive) heart failure (principal)
CPT/HCPCS: 93308

== ENCOUNTER 2024-10-28 11:47 | Outpatient (OUT) | payer MEDICARE, MEDICAID, SELFPAY ==
--- OUTSIDE RECORDS SUMMARY | 2024-10-28 12:03 | XMS_ITS | CCD ---
Author Organization [facility] Care Team Providers Care Psychiatric Registered Nurse Name Role Phone ELLUIS ARMANDOHAWJulia, EHAB A Admitting Unavailable ELTAHAWJulia EHAB A Attending Unavailable UNKNOWN, PHYSICIAN Referring Unavailable UNKNOWN, PHYSICIAN Primary Care Unavailable MEJOSEHISUNDANNELIESEMARACELI Admitting Unava ilable MEQING, ARACELI Attending Unava ilable UNKNOWN, PHYSICIAN Referring Unavailable UNKNOWN, PHYSICIAN Primary Care Unavailable Charles Landeros MD Primary Care Provider Emmanuel [employer]NUCLEAR SUPERVISING OPERATOR, Samantha Unavailable Reginald Aragon MD Unavailable [phone] Charles Landeros MD Primary Care Provider Emmanuel [employer]NUCLEAR SUPERVISING OPERATOR, Samantha Unavailable [phone] Reginald Aragon MD R Unavailable Charles Landeros MD Primary Care Provider [phone] Emmanuel [employer]NUCLEAR SUPERVISING OPERATOR, Samantha Unavailable Reginald Aragon MD R Unavailable TIGRE, DR CHARLES Keith Admitting Unavailable [...] TIGRE, DR CHARLES Keith Primary Care Unavailable ZIEBMAGALI, DR DEEPTI Mondragon Consulting Unavailable BRIANA, MITCHEL Admitting Unavailable GABRIELLE LIU Consulting Unavailable MITCHEL WARREN Attending Unavailable TIGRE, DR CHARELS Keith Primary Care Unavailable MITCHEL WARREN Consulting Unavailable JENSEN CARTER Attending Unavailable CON, OH L Referring Unavailable CON, OH L Primary Care Unavailable CON, OH L Referring Unavailable CON, OH L Primary Care Unavailable JEFFERYBRIAN Referring Unavailable CON, OH L Primary Care Unavailable CON, OH L Referring Unavailable CON, OH L Primary Care Unavailable DAISYROSA DE LOS SANTOS Referring Unavailable CON, OH L Primary Care Unavailable OLGAELIF Garcia Referring Unavailable CHARLES LANDEROS Primary Care Unavailable Tigre DORSEY, Charles Gordon Primary Care Provider [phone] Inderjit Cha Attending Unavailab Inderjit Hughes Admitting Unavailab Charles Rain Primary Care Unavailable REGINALD ARAGON Referring Unavailable REGINALD ARAGON Attending Unavailable CHARLES LANDEROS Primary Care Unavailable REGINALD ARAGON Referring Unavailable CHARLES LANDEROS Primary Care Unavailable REGINALD ARAGON Referring Unavailable REGINALD ARAGON Attending Unavailable CHARLES LANDEROS Primary Care Unavailable CHARLES LANDEROS Primary Care Unavailable REGINALD ARAGON Referring Unavailable ROSA VILLA Attending Unavailable JEFFERY, BRIAN Referring Unavailable JEFFERY, BRIAN Referring Unavailable JEFFERY, BRIAN Referring Unavailable JEFFERY, BRIAN Attending Unavailable OLGAELIF Attending Unavailable JEFFERY, BRIAN Attending Unavailable JEFFERY, BRIAN Admitting Unavailable JEFFERY, BRIAN Attending Unavailable DAISYROSA Attending Unavailable DAISY, ROSA Attending Unavailable DAISYROSA Attending Unavailable Con, Oh Fuentes Attending Unavailable Con, Oh Fuentes Attending Unavailable Con, Oh L Attending Unavailable Con, Oh L Attending Unavailable Con, Oh L Attending Unavailable Con, Oh L Attending Unavailable Con, Oh L Attending Unavailable Allergies Allergy Classification Reported Allergen(s) Allergy Type Date of Onset Reaction(s) Facility (3 sources) Penicillin; Translations: [penicillin] Drug Allergy 01-17-20 [facility] Repository (5 sources) Sulfonamides (Antibiotic); Translations: [SULFA (SULFONAMIDE ANTIBIOTICS)] Drug allergy (disorder) 01-28-20 10 [facility] Repository (13 sources) bacitracin / neomycin / polymyxin b; Translations: [NEOMYCIN-BACITRAC IN-POLYMYXIN] Drug Allergy 05-06-20 19 [facility] (14 sources) Clarithromycin; Translations: [CLARITHROMYCIN] Drug Allergy 01-28-[address] [facility] (13 sources) Estrogens, Conjugated (FPC); Translations: [CONJUGATED ESTROGENS] Drug Allergy 01-28-[address] [facility] (12 sources) PACLitaxel; Translations: [PACLITAXEL] Drug Allergy 08-24-20 19 Other: See Comments [facility] (13 sources) peanut allergenic extract; Translations: [PEANUT] Drug Allergy 05-06-[address] [facility] (4 sources) Penicillins; Translations: [PENICILLINS] Drug Allergy 05-06-[address] [facility] (10 sources) Sulfonamides (Antibiotic) Drug Allergy 01-28-20 10 [facility] (9 sources) Penicillins Drug Allergy 05-06-20 [facility] (3 sources) Shrimp product; Translations: [SHRIMP] Propensity to adverse reactions to food (disorder) 05-07-20 [facility] Repository (4 sources) PINEAPPLE; Translations: [PINEAPPLE] Propensity to adverse reactions to food (disorder) 05-07-20 [facility] Repository (3 sources) Bacitracin; Translations: [BACITRACIN] Drug Allergy 05-16-20 [facility] Repository (1 source) Clarithromycin Drug Allergy 05-16-20 [facility] Repository (2 sources) Estrogens, Conjugated (FPC); Translations: [ESTROGENS, CONJUGATED] Drug Allergy 05-16-20 [facility] Repository (1 source) Fish Oils Drug Allergy 06-12-20 [facility] Repository (1 source) Neomycin Drug Allergy 05-16-20 [facility] Repository (1 source) PACLitaxel Drug Allergy 05-16-20 [facility] Rep[facility] (1 source) peanut allergenic extract Drug Allergy 05-16-20 [facility] Rep[facility] (1 source) Penicillins Drug allergy (disorder) 06-12-20 [facility] Repository (1 source) Sulfacetamide Drug Allergy 06-12-20 [facility] Rep[facility] (1 source) Sulfonamides (Antibiotic) Drug allergy (disorder) 05-16-20 [facility] Repository (1 source) Sulfur Drug Allergy 06-12-20 [facility] Rep[facility] (1 source) tree nut, unspecified Drug allergy (disorder) 06-12-20 [facility] Rep[facility] (2 sources) polymyxin B; Translations: [POLYMYXIN B] Drug allergy (disorder) 05-16-20 [facility] Repository (1 source) Bromelains; Translations: [BROMELAINS] Drug Allergy 04-25-20 [facility] Repository (1 source) Neomycin; Translations: [NEOMYCIN SULFATE] Drug Allergy 04-25-20 [facility] Repository (1 source) peanut; Translations: [Peanuts] Food allergy (disorder) [facility] Repository (1 source) Sulfonamides (Antibiotic); Translations: [sulfa drugs] Propensity to adverse reactions (disorder) [facility] Repository Medications Current Medications Medication Drug Class(es) [...] 1 tablet by zohreh th once daily. [id number] 200 actuat albuterol 0.09 mg/actuat metered dose [...] Start: 01-16-2019 take 3 tablets by mo [facility] once daily furosemide (LASIX) 20 mg tablet [...] take 2 tablets by mo [facility] once daily potassium chloride 20 mEq TbER TAKE 2 TABLETS BY MOUTH EVERY DAY 180 tablet 0 12/04/2021 Active Start: 02-16-2021 take 2 tablets by mo [facility] once daily potassium chloride ER (K-DUR, KLOR-CON) 20 mEq tablet Take 2 tablets by mouth once daily. 180 tablet 1 02/16/2021 Active Comment on above: Take 2 tablets by mo [facility] once daily. TAKE 2 TABLETS BY MO UTH EVERY DAY predniSONE 10 mg oral tablet [...] by mouth once daily. 60 actuat tiotropium 0.79780 mg/actuat inhalation spray (10 sources) Anticholinergic Start: [...] Translations: [ESSENTIAL PRIMARY HYPERTENSION] Onset: 07-25-2022 Chronic Hypertension with complications and secondary hypertension (2 sources) Hypertensive heart disease with heart failure; Translations: [Hypertensive heart disease with heart failure] Onset: 09-09-2024 Chronic Osteoarthritis (1 source) Unspecified osteoarthritis, unspecified site; Translations: [UNSPECIFIED OSTEOARTHRITIS UNS SITE] Onset: 07-25-2022 Chronic Other aftercare (1 source) Other care home (current) drug therapy; Translations: [OTH AIRPORT SCREENER CURRENT DRUG THERAPY] Onset: 07-25-2022 Episodic Other [...] Interpretation Reference Range Facility Ambulatory Visit Summaryon 0 10-06-2024 Ambulatory Visit Summary Ambulatory Visit Summary KAYLIE SALOMON :1950 Visit Date:10/06/2024 Ambulatory Visit Instructions Your Diagnosis Type 2 diabetes mellitus with stage 3b chronic kidney disease Major depressive disorder, recurrent episode, moderate (HFpEF) heart failure with preserved ejection fraction Chronic kidney disease, stage 3b BMI 40.0-44.9, adult Non-smoker Your Care Team Attending Physician - Oh Wynne Primary Care Physician - Oh Wynne This Is Your Medications List [facility] Prescription (rollator walker) albuterol-ipratropium (albuterol-ipratropium Inh Juanis 3 mL UD) apixaban (apixaban 5 mg oral tablet) atorvastatin (atorvastatin 40 mg Tab) benralizumab (Fasenra Pen 30 mg/mL subcutaneous solution) brexpiprazole (Rexulti 0.5 mg oral tablet) cholecalciferol (Vitamin D3 2000 intl units oral Tab) dapagliflozin (dapagliflozin 10 mg oral tablet) fluticasone nasal (fluticasone Nasal 0.05 mg/inh [place]) fluticasone-vilanterol (Breo Ellipta 100 mcg-25 mcg inhalation powder) furosemide (furosemide 40 mg Tab) loratadine (loratadine 10 mg oral [...] of right breast. Discharge Vitals Temperature (Tympanic) 36.3 ???C Heart Rate (Peripheral) 66 Respiratory Rate 18 Blood Pressure 128/74 Height 164 cm Height 65 in Weight 116.1 kg Weight 255.956 lb BMI 43.17 What to do next Scheduled Follow-Up Appointments 2024 11:00 AM EDT With: Where: [place] [phone]- Saturday 1:40 PM EDT With: Oh Wynne Where: [address] [address]- Medications What How Much When Why Instructions Unchanged albuterol-ipratropium (albuterol-ipratropium Inh Juanis 3 mL [...] fluticasone nasal (fluticasone Nasal 0.05 mg/ inh [place]) See instructions INSTILL 2 SPRAYS INTO EACH NOSTRIL DAILY Unchanged fluticasone-vilanterol (Breo Ellipta 100 mcg-25 mcg inhalation powder) 1 Puffs Inhalation Every day 30 dose unit Unchanged furosemide (furosemide 40 mg Tab) See instructions 40-80mg in the AM and 40mg in the PM Unchanged loratadine (loratadine 10 mg oral capsule) 1 Capsules By Mouth Every day Unchanged losartan (losartan 100 mg Tab) 1 Tablets By Mouth Every day Unchanged metformin (metformin 500 mg Tab) See instructions TAKE 1 TABLET BY MOUTH WITH BREAKFAST AND SUPPER Unchanged metoprolol (metoprolol tartrate 100 mg Tab) 1 Tablets By Mouth 2 times a day Unchanged Misc Prescription (rollator walker) See instructions Limited mobility History of recent fall Poor balance Chronic respiratory failure with hypoxia Dx: z74.09, Z91.81, R26.80 Unchanged montelukast (montelukast 10 mg Tab) 1 Tablets By Mouth Every day Unchanged pantoprazole (Pantoprazole [address] Tab) By Mouth Every day Unchanged potassium chloride (Potassium Chloride (Eqv-K-Tab) 20 mEq oral tablet, extended release) 1 Tablets By Mouth 2 times a day Unchanged sertraline (sertraline 50 mg Tab) 1 Tablets By Mouth Every day Allergies Peanuts (Hives) Pineapple (Unknown) Shrimp (Unknown) bacitracin clarithromycin conjugated estrogens penicillin (Unknown) sulfa drugs (Unknown) Problems Ongoing - Any problem that you are currently receiving treatment for. 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 Normal [facility] Family Medicine Office/Clini c Noteon 10-06-2024 Family Medicine Office/Clinic Note Family Medicine Office/Clinic Note HPI Staff Kaylie is a 74 year old female presenting with 6 month f/u Do you have any of the following symptoms? Foot Exam: Eye Exam: Last A1C: Statin: Caregiver states pt had labs last done at [facility]. Caregiver states 2 weeks ago started having sinus drainage , productive cough, no fevers , unsure what to take Bilateral shoulder pain would like order for PRN icy hot History of Present Illness pt presents today for 6 month follow up Review of Systems PHQ Score Initial Depression Screen Score: 0 SCORE Physical Exam Vitals & Measurements T: 36.3 ???C(Tympanic) HR: 66(Peripheral) RR: 18 BP: 128/74 SpO2: 99% HT: 65 in HT: 164 cm WT: 116.1 kg WT: 255.956 lb BMI: 43.17 General: alert, no acute distress ENMT: oral [...] diabetes mellitus with diabetic chronic kidney disease) Will order HGAB1C today. Unable to locate most recent HGBA1C results. RTC 6 months 2. Major depressive disorder, recurrent episode, moderate (F33.1: Major depressive disorder, recurrent, moderate) stable at this time. continue seeing [facility] 3. (HFpEF) heart failure with preserved ejection fraction (I50.30: Unspecified diastolic (congestive) heart failure) pt is followed [facility] 4. Chronic kidney disease, stage 3b (N18.32: Chronic kidney disease, stage 3b) BMP reviewed 5. BMI 40.0-44.9, adult (Z68.41: Body mass index [BMI] 40.0-44.9, adult) BMI education 6. Non-smoker (Z78.9: Other specified health status) continue not smoking Orders: furosemide, 40 mg = 2 tab(s), Oral, Daily, # 180 tab(s), Refills(s) 4, Pharmacy: [id number], 164, cm, 01/09/24 11:44:00 EDT, Height/Length Dosing, 119.9, kg, 01/09/24 11:44:00 EDT, Weight Dosing Follow-up No qualifying data available Problem List/Past Medical History Ongoing (HFpEF) heart failure with preserved ejection fraction Adult BMI 40.0-44.9 kg/sq m Allergic rhinitis BMI 40.0-44.9, adult Coronary arteriosclerosis in [place] artery Drooling Gastroesophageal reflux disease History of breast cancer Hyperlipidemia due to type 2 diabetes mellitus Hypertensive disorder Hypoxemia Iron deficiency anemia secondary to inadequate dietary iron intake 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 Lumbosacral spondylosis Major depressive disorder, recurrent episode, moderate Morbid obesity Paroxysmal atrial fibrillation Poor balance Severe persistent asthma, uncomplicated Stage 3b chronic kidney disease (CKD) Thoracic spondylosis Tremor of both hands Type 2 diabetes mellitus with stage 3b chronic kidney disease Venous insufficiency Vitamin D deficiency Wellness examination Historical Acute hypoxemic respiratory failure Acute severe refractory exacerbation of asthma Acute ST segment elevation myocardial infarction Chronic respiratory failure with hypoxia COPD (chronic obstructive pulmonary disease) Diabetes mellitus type II, non insulin dependent Heart failure, systolic and diastolic History of recent fall Hypertensive heart and 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 Malignant neoplasm of lower-outer quadrant of female breast Malignant neoplasm of lower-outer quadrant of female breast Non-allergic asthma Primary malignant neoplasm of breast Primary malignant neoplasm of breast Procedure/Surgical History CE - Cataract extraction (11/28/2022), Cardiac catheterization, Mastectomy of right breast. Medications albuterol-ipratropium Inh Juanis 3 mL UD apixaban 5 mg oral tablet, 5 mg= 1 tab(s), Oral, BID, 3 refills atorvastatin 40 mg Tab, 40 mg= 1 tab(s), Oral, Daily, 4 refills Breo Ellipta 100 mcg-25 mcg inhalation powder, 1 puff(s), Inhalation, Daily, 11 refills dapagliflozin 10 mg oral tablet, 10 mg= 1 tab(s), Oral, Daily Fasenra Pen 30 mg/mL subcutaneous solution fluticasone Nasal 0.05 mg/inh [place], See Instructions furosemide 40 mg Tab, See Instructions loratadine 10 mg oral capsule, 10 mg= 1 cap(s), Oral, Daily, 4 refills losartan 100 mg Tab, 100 mg= 1 tab(s), Oral, Daily metformin 500 mg Tab, See Instructions metoprolol tartrate 100 mg Tab, 100 mg= 1 tab(s), Oral, BID montelukast 10 mg Tab, 10 mg= 1 tab(s), Oral, Daily, 3 refills Pantoprazole [address] Tab, Oral, Daily Potassium Chloride (Eqv-K-Tab) 20 mEq oral tablet, extended release, 20 mEq= 1 tab(s), Oral, BID Rexulti 0.5 mg oral tablet rollator walker, See Instructions sertraline 50 mg Tab, 50 mg= 1 tab(s), Oral, Daily, 3 refills Vitamin D3 200 (more content not included)... Normal [facility] Comment on above: Result Comment: Elec tronically Signed By: Oh Wynne\.br\Date and Time Signed: 10/06/24 12:00 EST Follow-Upon 09-09-2024 Follow-Up [id number] Kaylie Salomon 1950 F Date Provider Department Center 09/09/2024 [facility] Family History Problem Relation Age of Onset Heart failure Mother Family Status - Relation Status Age at Mother Level of Service:42499 ID OFFICE/OUTPATIENT ESTABLISHED LOW MDM 20 MIN Normal [facility] Ambulatory Visit Summaryon 1 10-04-2023 Ambulatory Visit [...] List [facility] Prescription (rollator walker) albuterol-ipratropium (albuterol-ipratropium Inh Juanis 3 mL UD) apixaban (apixaban 5 mg oral tablet) atorvastatin (atorvastatin 40 mg Tab) benralizumab (Fasenra Pen 30 mg/mL subcutaneous solution) brexpiprazole (Rexulti 0.5 mg oral tablet) cholecalciferol (Vitamin D3 2000 intl units oral Tab) dapagliflozin (dapagliflozin 10 mg oral tablet) fluticasone nasal (fluticasone Nasal 0.05 mg/inh [place]) fluticasone-vilanterol (Breo Ellipta 100 mcg-25 mcg inhalation [...] 1:40 PM EST With: Oh Wynne Where: [place] [phone]- 2024 11:00 AM EDT With: Where: [address] [phone]- Medications What How Much When Why Instructions [facility] (rollator walker) See instructions Limited mobility [...] fluticasone nasal (fluticasone Nasal 0.05 mg/ inh [place]) See instructions INSTILL 2 SPRAYS INTO EACH [...] respiratory failure with hypoxia Coronary arteriosclerosis in [place] artery Drooling Gastroesophageal reflux disease Heart failure, systolic and diastolic History of breast cancer History of recent fall Hyperlipidemia due to type 2 diabetes mellitus Hypertensive disorder Hypertensive heart and 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 Hypoxemia Iron deficiency anemia secondary to inadequate dietary iron intake Limited mobil (more content not included)... Normal [facility] Family Medicine Office/Clini c Noteon 08-04-2024 Family [...] kidney disease) follow up with cardiology in September 03. Adult BMI 40.0-44.9 kg/sq m, (Z68.41: Body [...] with hypoxia) stable at this time Ordered: [facility] Prescription, rollator walker, See Instructions, 1 EA, [...] zev, Topical, BID, 30 gm, Refill(s) 1, [id number], 164, cm, 03/08/23 12:17:00 EDT, Height/Length Dosing, 120, kg, 03/08/23 12:17:00 EDT, Weight Dosing Follow-up No qualifying data available Problem List/Past Medical History Ongoing Adult BMI 40.0-44.9 kg/sq m Allergic rhinitis BMI 40.0-44.9, adult Chronic respiratory failure with hypoxia Coronary arteriosclerosis in [place] artery Drooling Gastroesophageal reflux disease Heart failure, systolic and diastolic History of breast cancer History of recent fall Hyperlipidemia due to type 2 diabetes mellitus Hypertensive disorder Hypertensive heart and 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 Hypoxemia Iron deficiency anemia secondary to inadequate dietary iron intake Limited mobility group home (current) use of inhaled steroids Lumbosacral spondylosis [...] catheterization, Mastecto (more content not included)... Normal [facility] Comment on above: Result Comment: Elec tronically [...] Mammography: *No Oncology Consult Notes located in [facility]. Based on your medical judgment, can [...] feel free to contact me at extension [phone]. Thank you! Elif Cabrera LPN Clinical Chiropractor Assistant [address] [address] Extension: [phone] [email or web address] Normal [facility] CBC W Auto Differential pane l (Bld)on 07-30-2024 Basophils (Bld) [#[facility]Vol] [facility] Basophils/100 WBC (Bld) 0.1 % [facility] Differential cell count method Nom (Bld) Auto [facility] Eosinophils (Bld) [#/Vol] [facility] Eosinophils/100 WBC (Bld) 0.0 % [facility] Erythrocyte distribution width (RBC) [Ratio] 17.4 % High 11.5 - 15.0 % [facility] Hematocrit (Bld) [Volume fraction] 34.2 % Low 36.0 - 46.0 % [facility] Hemoglobin (Bld) [Mass/Vol] 10.1 g/dL Low 11.5 - 15.5 g/dL [facility] Immature granulocytes (Bld) [#/Vol] 0.03 10*3/uL [facility] Immature granulocytes/100 WBC (Bld) 0.3 % [facility] Interpretation and review of laboratory results Abnormal [facility] Lymphocytes (Bld) [#/Vol] 0.82 10*3/uL Low [facility] Lymphocytes/100 WBC (Bld) 9.0 % [facility] MCH (RBC) [Entitic mass] 26.4 pg 26.0 - 34.[address] [facility] MCHC (RBC) [Mass/Vol] 29.5 g/dL Low 30.5 - 36.0 g/dL [facility] MCV (RBC) [Entitic vol] 89.5 fL 80.0 - 100.0 fL [facility] Monocytes (Bld) [#/Vol] 1.05 10*3/uL High [facility] Monocytes/100 WBC (Bld) 11.5 % [facility] Neutrophils (Bld) [#/Vol] 7.23 10*3/uL [facility] Neutrophils/100 WBC (Bld) 79.1 % [facility] Nucleated RBC (Bld) [#/Vol] NINF [facility] Nucleated RBC/100 WBC (Bld) [Ratio] 0.0 % /[address] [facility] Platelet mean volume (Bld) [Entitic vol] 9.6 fL 9.0 - 12.[address] [facility] Platelets (Bld) [#/Vol] 290 10*3/uL [facility] RBC (Bld) [#/Vol] 3.82 10*6/uL Low 3.90 - 5.2 0 m/uL [facility] WBC (Bld) [#/Vol] 9.14 10*3/uL [facility] Basophils (Bld) [#/Vol] 10*3/uL Normal <0.11 [facility] Comment on above: Order Comment: Speci men Type: BLOOD SPECIMEN Ordering Facility: [facility] Address: [address] [place] [address] Performed By: #### 5 7021-8 #### [facility] CLIA [id number] [address] [place] [address] Basophils/100 WBC (Bld) 0.1 % Normal [facility] Comment on above: Order Comment: Speci men Type: BLOOD SPECIMEN Ordering Facility: [facility] Address: [address] [place] [address] Performed By: #### 5 7021-8 #### [facility] CLIA [id number] [address] [place] [address] Differential cell count method Nom (Bld) Auto Normal [facility] Comment on above: Order Comment: Speci men Type: BLOOD SPECIMEN Ordering Facility: [facility] Address: [address] [place] [address] Performed By: #### 5 7021-8 #### [facility] CLIA [id number] [address] [place] [address] Eosinophils (Bld) [#/Vol] 10*3/uL Normal <0.46 [facility] Comment on above: Order Comment: Speci men Type: BLOOD SPECIMEN Ordering Facility: [facility] Address: [address] [place] [address] Performed By: #### 5 7021-8 #### [facility] CLIA [id number] [address] [place] [address] Eosinophils/100 WBC (Bld) 0.0 % Normal [facility] Comment on above: Order Comment: Speci men Type: BLOOD SPECIMEN Ordering Facility: [facility] Address: [address] [place] [address] Performed By: #### 5 7021-8 #### [facility] CLIA [id number] [address] [place] [address] Erythrocyte distribution width (RBC) [Ratio] 17.4 % High 11.5-15.0 [facility] Comment on above: Order Comment: Speci men Type: BLOOD SPECIMEN Ordering Facility: [facility] Address: [address] [place] [address] Performed By: #### 5 7021-8 #### [facility] CLIA [id number] [address] [place] [address] Hematocrit (Bld) [Volume fraction] 34.2 % Low 36.0-46.0 [facility] Comment on above: Order Comment: Speci men Type: BLOOD SPECIMEN Ordering Facility: [facility] Address: [address] [place] [address] Performed By: #### 5 7021-8 #### [facility] CLIA [id number] [address] [place] [address] 38776 Hemoglobin (Bld) [Mass/Vol] 10.1 g/dL Low 11.5-15.5 [facility] Comment on above: Order Comment: Speci men Type: BLOOD SPECIMEN Ordering Facility: [facility] Address: [address] [place] [address] Performed By: #### 5 7021-8 #### [facility] CLIA [id number] [address] [place] [address] 52923 Immature granulocytes (Bld) [#/Vol] 0.03 10*3/uL Normal <0.10 [facility] Comment on above: Order Comment: Speci men Type: BLOOD SPECIMEN Ordering Facility: [facility] Address: [address] [place] [address] Performed By: #### 5 7021-8 #### [facility] CLIA [id number] [address] [place] [address] 57710 Immature granulocytes/100 WBC (Bld) 0.3 % Normal [facility] Comment on above: Order Comment: Speci men Type: BLOOD SPECIMEN Ordering Facility: [facility] Address: [address] [place] [address] Performed By: #### 5 7021-8 #### [facility] CLIA [id number] [address] [place] [address] 02651 Lymphocytes (Bld) [#/Vol] 0.82 10*3/uL Low 1.00-4.00 [facility] Comment on above: Order Comment: Speci men Type: BLOOD SPECIMEN Ordering Facility: [facility] Address: [address] [place] [address] Performed By: #### 5 7021-8 #### [facility] CLIA [id number] [address] [place] [address] 94258 Lymphocytes/100 WBC (Bld) 9.0 % Normal [facility] Comment on above: Order Comment: Speci men Type: BLOOD SPECIMEN Ordering Facility: [facility] Address: [address] [place] [address] Performed By: #### 5 7021-8 #### [facility] CLIA [id number] [address] [place] [address] 95473 MCH (RBC) [Entitic mass] 26.4 pg Normal 26.0-34.0 [facility] Comment on above: Order Comment: Speci men Type: BLOOD SPECIMEN Ordering Facility: [facility] Address: [address] [place] [address] Performed By: #### 5 7021-8 #### [facility] CLIA [id number] [address] [place] [address] 83682 MCHC (RBC) [Mass/Vol] 29.5 g/dL Low 30.5-36.0 [facility] Comment on above: Order Comment: Speci men Type: BLOOD SPECIMEN Ordering Facility: [facility] Address: [address] [place] [address] Performed By: #### 5 7021-8 #### [facility] CLIA [id number] [address] [place] [address] 09472 MCV (RBC) [Entitic vol] 89.5 fL Normal 80.0-100.0 [facility] Comment on above: Order Comment: Speci men Type: BLOOD SPECIMEN Ordering Facility: [facility] Address: [address] [place] [address] Performed By: #### 5 7021-8 #### [facility] CLIA [id number] [address] [place] [address] 58298 Monocytes (Bld) [#/Vol] 1.05 10*3/uL High <0.87 [facility] Comment on above: Order Comment: Speci men Type: BLOOD SPECIMEN Ordering Facility: [facility] Address: [address] [place] [address] Performed By: #### 5 7021-8 #### [facility] CLIA [id number] [address] [place] [address] 15667 Monocytes/100 WBC (Bld) 11.5 % Normal [facility] Comment on above: Order Comment: Speci men Type: BLOOD SPECIMEN Ordering Facility: [facility] Address: [address] [place] [address] Performed By: #### 5 7021-8 #### [facility] CLIA [id number] [address] [place] [address] 63708 Neutrophils (Bld) [#/Vol] 7.23 10*3/uL Normal 1.45-7.50 [facility] Comment on above: Order Comment: Speci men Type: BLOOD SPECIMEN Ordering Facility: [facility] Address: [address] [place] [address] Performed By: #### 5 7021-8 #### [facility] CLIA [id number] [address] [place] [address] 26922 Neutrophils/100 WBC (Bld) 79.1 % Normal [facility] Comment on above: Order Comment: Speci men Type: BLOOD SPECIMEN Ordering Facility: [facility] Address: [address] [place] [address] Performed By: #### 5 7021-8 #### [facility] CLIA [id number] [address] [place] [address] 45061 Nucleated RBC (Bld) [#/Vol] 10*3/uL Normal <0.01 [facility] Comment on above: Order Comment: Speci men Type: BLOOD SPECIMEN Ordering Facility: [facility] Address: [address] [place] [address] Performed By: #### 5 7021-8 #### [facility] CLIA [id number] [address] [place] [address] 27681 Nucleated RBC/100 WBC (Bld) [Ratio] 0.0 /100 WBC Normal [facility] Comment on above: Order Comment: Speci men Type: BLOOD SPECIMEN Ordering Facility: [facility] Address: [address] [place], [place] [address] Performed By: #### 5 7021-8 #### [facility] CLIA [id number] [address] [place] [address] 47276 Platelet mean volume (Bld) [Entitic vol] 9.6 fL Normal 9.0-12.7 [facility] Comment on above: Order Comment: Speci men Type: BLOOD SPECIMEN Ordering Facility: [facility] Address: [address] [place] [address] Performed By: #### 5 7021-8 #### [facility] CLIA [id number] [address] [place] [address] 85831 Platelets (Bld) [#/Vol] 290 10*3/uL Normal 150-400 [facility] Comment on above: Order Comment: Speci men Type: BLOOD SPECIMEN Ordering Facility: [facility] Address: [address] [place] [address] Performed By: #### 5 7021-8 #### [facility] CLIA [id number] [address] [place] [address] 42728 RBC (Bld) [#/Vol] 3.82 10*6/uL Low 3.90-5.20 [facility] Comment on above: Order Comment: Speci men Type: BLOOD SPECIMEN Ordering Facility: [facility] Address: [address] [place], [place] [address] Performed By: #### 5 7021-8 #### [facility] CLIA [id number] [address] [place] [address] 74538 WBC (Bld) [#/Vol] 9.14 10*3/uL Normal 3.70-11.00 [facility] Comment on above: Order Comment: Speci men Type: BLOOD SPECIMEN Ordering Facility: [facility] Address: [address] [place], [place] [address] Performed By: #### 5 7021-8 #### [facility] CLIA [id number] [address] [place] [address] 15526 CNOVSPon 07-30-2024 CNOVSP Visit (SP) Office ([place]) KAYLIE SALOMON ([id number]) 1950 F Date Time Provider Department 07/30/24 [...] Smith, Afua RAMIREZT, Dr. Brian Gil (Cardiology [facility]/[place]) Portions of this encounter note have been [...] and CHF. She is currently managed by [facility]/[place] cardiology (Dr. Gil). Otherwise she has had [...] on 03/14/2023) ALLERGIES: Clarithromycin, Conjugated Estrogens, Neosporin [Nfxbmxqs-Jjethocvna-F olymyxin], Paclitaxel, Peanut, Penicillins, and Sulfa (Sulfonamide [...] nose ble (more content not included)... Normal [facility] Cancer Ag27-29 SerPl-aCncon 07-30-2024 Cancer Ag 27-29 Qn 31.0 [arb'U]/mL Normal <38.6 [facility] Comment on above: Order Comment: Speci men Type: BLOOD SPECIMEN Ordering Facility: [facility] Address: [address] [place] [address] Result Comment: The CA27.29 test was performed using the Siemens Centaur XP chemiluminometric immunoassay method. Results obtained with different assay methods or kits cannot be used interchangeably. Performed By: #### 1 7842-6 #### [facility] CLIA [id number] [address] [place] [address] [place] Comprehensive metabolic 2000 panelOrdered By: Rosa Elena iY on 07-30-2024 Albumin [Mass/Vol] 4.0 g/dL 3.9 - 4.9 g/dL [facility] ALP [Catalytic activity/Vol] 95 U/L 34 - 123 U/L [facility] ALT [Catalytic activity/Vol] 19 U/L 7 - 38 U/L [facility] Anion gap [Moles/Vol] 10 mmol/L 8 - 15 mmol/L [facility] AST [Catalytic activity/Vol] 21 U/L 13 - 35 U/L [facility] Bilirubin [Mass/Vol] 0.4 mg/dL 0.2 - 1.3 mg/dL [facility] Calcium [Mass/Vol] 9.3 mg/dL 8.5 - 10. 2 mg/dL [facility] Chloride [Moles/Vol] 100 mmol/L 98 - 107 mmol/L [facility] CO2 [Moles/Vol] 31 mmol/L High 22 - 30 mmol/L [facility] Creatinine [Mass/Vol] 1.41 mg/dL High 0.58 - 0.96 mg/dL [facility] GFR/1.73 sq M.predicted among non-blacks MDRD (S/P/Bld) [Vol rate/Area] 39 mL/min/{1.73_m2} Low - PINF [facility] Comment on above: Estimated Glomerular Filtration [...] [Mass/Vol] 83 mg/dL 74 - 99 mg/dL [facility] Comment on above: The [place] Diab[employer] Association (ADA) provides guidance for [...] Standards of Medical Care in Diabetes 2016, [place] [employer]. Diabetes Care. 2016.39(Suppl 1). Interpretation and review of laboratory results Abnormal [facility] Potassium [Moles/Vol] 4.3 mmol/L 3.7 - 5.1 mmol/L [facility] Protein [Mass/Vol] 7.7 g/dL 6.3 - 8.0 g/dL [facility] Sodium [Moles/Vol] 141 mmol/L 136 - 144 mmol/L [facility] Urea nitrogen [Mass/Vol] 54 mg/dL High 7 - 21 mg/dL [facility] Comprehensive metabolic 2000 panelon 07-30-2024 Albumin [Mass/Vol] 4.0 g/dL Normal 3.9-4.9 [facility] Comment on above: Order Comment: Speci men Type: BLOOD SPECIMEN Ordering Facility: [facility] Address: [address] [place] [address] Performed By: #### 2 4323-8 #### [facility] CLIA [id number] [address] [place] [address] 29947 ALP [Catalytic activity/Vol] 95 U/L Normal 34-123 [facility] Comment on above: Order Comment: Speci men Type: BLOOD SPECIMEN Ordering Facility: [facility] Address: [address] [place] [address] Performed By: #### 2 4323-8 #### [facility] CLIA [id number] [address] [place] [address] 00228 ALT [Catalytic activity/Vol] 19 U/L Normal 7-38 [facility] Comment on above: Order Comment: Speci men Type: BLOOD SPECIMEN Ordering Facility: [facility] Address: [address] [place] [address] Performed By: #### 2 4323-8 #### [facility] CLIA [id number] [address] [place] [address] 86543 Anion gap [Moles/Vol] 10 mmol/L Normal 8-15 [facility] Comment on above: Order Comment: Speci men Type: BLOOD SPECIMEN Ordering Facility: [facility] Address: [address] [place] [address] Performed By: #### 2 4323-8 #### [facility] CLIA [id number] [address] [place] [address] 29060 AST [Catalytic activity/Vol] 21 U/L Normal 13-35 [facility] Comment on above: Order Comment: Speci men Type: BLOOD SPECIMEN Ordering Facility: [facility] Address: [address] [place] [address]19 Performed By: #### 2 4323-8 #### [facility] CLIA [id number] [address] [place] [address] Bilirubin [Mass/Vol] 0.4 mg/dL Normal 0.2-1.3 [facility] Comment on above: Order Comment: Speci men Type: BLOOD SPECIMEN Ordering Facility: [facility] Address: [address] [place] [address] Performed By: #### 2 4323-8 #### [facility] CLIA [id number] [address] [place] [address] Calcium [Mass/Vol] 9.3 mg/dL Normal 8.5-10.2 [facility] Comment on above: Order Comment: Speci men Type: BLOOD SPECIMEN Ordering Facility: [facility] Address: [address] [place] [address] Performed By: #### 2 4323-8 #### [facility] CLIA [id number] [address] [place] [address] 01950 Chloride [Moles/Vol] 100 mmol/L Normal 98-107 [facility] Comment on above: Order Comment: Speci men Type: BLOOD SPECIMEN Ordering Facility: [facility] Address: [address] [place] [address] Performed By: #### 2 4323-8 #### [facility] CLIA [id number] [address] [place] [address] 95348 CO2 [Moles/Vol] 31 mmol/L High 22-30 [facility] Comment on above: Order Comment: Speci men Type: BLOOD SPECIMEN Ordering Facility: [facility] Address: [address] [place] [address] Performed By: #### 2 4323-8 #### [facility] CLIA [id number] [address] [place] [address] 52923 Creatinine [Mass/Vol] 1.41 mg/dL High 0.58-0.96 [facility] Comment on above: Order Comment: Speci men Type: BLOOD SPECIMEN Ordering Facility: [facility] Address: [address] [place] [address] Performed By: #### 2 4323-8 #### [facility] CLIA [id number] [address] [place] [address] 94393 Creatinine and Glomerular filtration rate.predicted panel (S/P/Bld) 39 mL/min/1.73m??? Low >=60 [facility] Comment on above: Order Comment: Jennifer stahl Type: BLOOD SPECIMEN Ordering Facility: [facility] Address: [address] [place] [address] Result Comment: Violette mated Glomerular Filtration Rate [...] GFR. Performed By: #### 2 4323-8 #### [facility] CLIA [id number] [address] [place] [address] 13991 Glucose [Mass/Vol] 83 mg/dL Normal 74-99 [facility] Comment on above: Order Comment: Jennifer stahl Type: BLOOD SPECIMEN Ordering Facility: [facility] Address: [address] [place] [address] Result Comment: The [place] Diabetes Association (ADA) provides guidance for cutoff [...] Standards of Medical Care in Diabetes 2016, [place] [employer]. Diabetes Care. 2016.39(Suppl 1). Performed By: #### 2 4323-8 #### [facility] CLIA [id number] [address] [place] [address] 61556 Potassium [Moles/Vol] 4.3 mmol/L Normal 3.7-5.1 [facility] Comment on above: Order Comment: Speci men Type: BLOOD SPECIMEN Ordering Facility: [facility] Address: [address] [place] [address] Performed By: #### 2 4323-8 #### [facility] CLIA [id number] [address] [place] [address] 94267 Protein [Mass/Vol] 7.7 g/dL Normal 6.3-8.0 [facility] Comment on above: Order Comment: Speci men Type: BLOOD SPECIMEN Ordering Facility: [facility] Address: [address] [place] [address] Performed By: #### 2 4323-8 #### [facility] CLIA [id number] [address] [place] [address]006 Sodium [Moles/Vol] 141 mmol/L Normal 136-144 [facility] Comment on above: Order Comment: Speci men Type: BLOOD SPECIMEN Ordering Facility: [facility] Address: [address] [place] [address] Performed By: #### 2 4323-8 #### [facility] CLIA [id number] [address] [place] [address] 82203 Urea nitrogen [Mass/Vol] 54 mg/dL High 7-21 [facility] Comment on above: Order Comment: Speci men Type: BLOOD SPECIMEN Ordering Facility: [facility] Address: [address] [place] [address] Performed By: #### 2 4323-8 #### [facility] CLIA [id number] [address] [place] [address] 21586 37on 06-25-2024 37 *Continue lasix 80mg in the AM and 40mg in the PM *Continue 2L or 64 oz of daily fluid allowance *Continue to monitor daily weights *Have labs done to follow-up on kidney function Normal [facility] Office Visiton 06-25-2024 Follow-up visit [id number] Kaylie Salomon 1950 Provider Department Center 06/25/2024 ROSA LÓPEZ Family History Problem Relation Age of Onset Heart failure Mother Family Status - Relation Status Age at Mother Level of Service:61333 ID OFFICE/OUTPATIENT ESTABLISHED MOD MDM 30 MIN Normal [facility] 37on 06-17-2024 37 *Increase lasix to 80mg (2 tablets of 40mg) BID x3 days then take lasix 80mg in the AM and 40mg in the PM. Can take second dose around 4pm. *Limit fluid intake to 2L a day. *Limit sodium intake to 2L a day Normal [facility] Office Visiton 06-17-2024 Follow-up visit [id number] Kaylie Salomon 1950 Provider Department Center 06/17/2024 ROSA LÓPEZ Family History Problem Relation Age of Onset Heart failure Mother Family Status - Relation Status Age at Mother Level of Service:44043 ID OFFICE/OUTPATIENT ESTABLISHED MOD MDM 30 MIN Normal [facility] Orders Onlyon 06-02-2024 Orders Only [id number] LupilloKaylie ortez 1950 Provider Department Center 06/02/2024 ELIF ACOSTA [facility]. Family History Problem Relation Age of Onset Heart failure Mother Family Status - Relation Status Age at Mother Normal [facility] BASIC METABOLIC PANLon 05-20 Anion gap [Moles/Vol] 10 mmol/L Normal 5-15 [facility] Comment on above: Performed By: #### 3 0934-4 #### [facility] ([id number]) [address] [facility], [place] [address] #### BMP #### [facility] ([id number]) [address] [place] [address], [address] [place] [address] Calcium [Mass/Vol] 9.5 mg/dL Normal 8.5-10.5 [facility] Comment on above: Performed By: #### 3 0934-4 #### [facility] ([id number]) [address] [place] [address] #### BMP #### [facility] ([id number]) [address], [address] [place] [address] Chloride [Moles/Vol] 96 mmol/L Low 98-109 [facility] Comment on above: Performed By: #### 3 0934-4 #### [facility] ([id number]) [address] [place] [address] #### BMP #### [facility] ([id number]) [address] [facility] [place] [address] CO2 [Moles/Vol] 36 mmol/L High 22-32 [facility] Comment on above: Performed By: #### 3 0934-4 #### [facility] ([id number]) [address] [place] [address] #### BMP #### [facility] ([id number]) [address] [facility] [place] [address] Creatinine [Mass/Vol] 1.35 mg/dL High 0.40-1.00 [facility] Comment on above: Result Comment: METH OD TRACEABLE TO IDMS STANDARD Performed By: #### 3 0934-4 #### [facility] ([id number]) [address] [place] [address] #### BMP #### [facility] ([id number]) [address] [facility] [place] [address] GFR/1.73 sq M.predicted among non-blacks MDRD (S/P/Bld) [Vol rate/Area] 41 mL/min/{1.73_m2} Low >59 [facility] Comment on above: Result Comment: Reported eGFR is based on the CKD-EPI 2020 equation that does not use a race coefficient. Performed By: #### 3 0934-4 #### [facility] ([id number]) [address] [place] [address] #### BMP #### [facility] ([id number]) [address] [place] [address] Glucose [Mass/Vol] 98 mg/dL Normal 65-99 [facility] Comment on above: Performed By: #### 3 0934-4 #### [facility] ([id number]) [address] [place] [address] #### BMP #### [facility] ([id number]) [address], [address] [place] [address] Potassium [Moles/Vol] 4.1 mmol/L Normal 3.5-5.0 [facility] Comment on above: Performed By: #### 3 0934-4 #### [facility] ([id number]) [address] [place] [address] 24370 #### BMP #### [facility] ([id number]) [address], [address] [place] [address] Sodium [Moles/Vol] 142 mmol/L Normal 134-146 [facility] Comment on above: Performed By: #### 3 0934-4 #### [facility] ([id number]) [address] [place] [address] #### BMP #### [facility] ([id number]) [address], [address] [place] [address] Urea nitrogen [Mass/Vol] 30 mg/dL High 5-27 [facility] Comment on above: Performed By: #### 3 0934-4 #### [facility] ([id number]) [address] [place] [address]270 #### BMP #### [facility] ([id number]) [address] [facility], [facility] [address] [place] [address] Natriuretic peptide B [Mass/ Vol]on 05-20-2024 Natriuretic peptide B (Bld) [Mass/Vol] 359 pg/mL High <100.0 [facility] Comment on above: Performed By: #### 3 0934-4 #### [facility] ([id number]) [address] [place] [address], [place] [address] #### BMP #### [facility] ([id number]) [address] [address] Office Visiton 05-13-2024 Follow-up visit [id number] Kaylie Salomon 1950 F Date Provider Department Center 05/13/2024 ROSA LÓPEZ [facility] Family History Problem Relation Age of Onset Heart failure Mother Family Status - Relation Status Age at Mother Level of Service:13862 ID OFFICE/OUTPATIENT ESTABLISHED MOD MDM 30 MIN Reason for Visit and Comments: Atrial Fibrillation [80] Congestive Heart Failure [127] Normal [facility] MICROALBUMIN - ALBUMIN:CREAT ININE URINE RATIOon 05-06-2024 ALB/CREAT RATIO 42.4 mg/g creat High 0.0-30.0 [facility] Comment on above: Performed By: #### M ALBU #### [facility] ([id number]) [address] [address] Albumin DL <= 20 mg/L (U) [Mass/Vol] 0.8 mg/dL Normal 0.0-1.9 [facility] Comment on above: Performed By: #### M ALBU #### [facility] ([id number]) [address] [facility], [facility] [address] [place] [address] URINE CREAT 18.87 mg/dL Normal [facility] Comment on above: Performed By: #### M ALBU #### [facility] ([id number]) [address], [address] [place] [address] PROTEIN CREAT RATIOon 2023 RANDOM URINE PROTEIN 60 mg/L Normal <120 [facility] Comment on above: Performed By: #### U PCR #### [facility] ([id number]) [address], [facility] [address] [place] [address] U/PRO/CLINICAL STAFF RN RATIO CALC 0.32 High <0.2 [facility] Comment on above: Result Comment: Neph rotic Syndrome is associated with ratios >3.5 Performed By: #### U PCR #### [facility] ([id number]) [address], [facility] [address] [place] [address] URINE CREATININE,RDM 18.77 mg/dL Normal [facility] Comment on above: Performed By: #### U PCR #### [facility] ([id number]) [address], [facility] [address] [place] [address] 36on 05-05-2024 36 Patient's caregiver called back and I relayed message per Mirna to restart PM dose of lasix and have labs today. She will also have repeat labs on Saturday and will see Shayy on Saturday, 05/13. Lab orders faxed to [facility] in [place]. Normal [facility] HGB A1C (GLYCO-HGB)on 2023 Glucose [Mass/Vol] 134 mg/dL Normal [facility] Comment on above: Performed By: #### H A1C, [address]98-8 #### [facility] ([id number]) [address] [facility] [address] [place] [address] HbA1c (Bld) [Mass fraction] 6.3 % High 4.4-5.6 [facility] Comment on above: Result Comment: NOTE ADA Guidelines Result HgbA1c Normal : less than 5.7 % Prediabetes : 5.7 % to 6.4 % Diabetes : > 6.4 % Use with caution in patients with abnormal hemoglobin variants as the half-life of red blood cells and in vivo glycation rates are affected. Performed By: #### H A1C, 90315-6 #### [facility] ([id number]) [address], [address] [place] [address] Lipid 1996 panelon 4 Cholesterol [Mass/Vol] 95 mg/dL Low 150-200 [facility] Comment on above: Performed By: #### H A1C, 54916-5 #### [facility] ([id number]) [address], [address] [place] [address] Cholesterol in HDL [Mass/Vol] 50 mg/dL Normal >39 [facility] Comment on above: Result Comment: HDL <40 mg/dL - High Risk HDL > or = 40mg/dL- Desirable HDL >60 mg/dL - Negative Risk Performed By: #### H A1C, 96843-3 #### [facility] ([id number]) [address], [address] [place] [address] Cholesterol in LDL [Mass/Vol] 30 mg/dL Normal <130 [facility] Comment on above: Result Comment: LDL <100 mg/dL - Desirable LDL >160 mg/dL - High Risk Performed By: #### H A1C, 23697-2 #### [facility] ([id number]) [address], [address] [place] [address] Cholesterol in VLDL [Mass/Vol] 15 mg/dL Normal 0-30 [facility] Comment on above: Performed By: #### H A1C, 43853-2 #### [facility] ([id number]) [address], [address] [place] [address] CHOLESTEROL:HDL 1.9 Normal 1.0-5.0 [facility] Comment on above: Performed By: #### H A1C, 83113-9 #### [facility] ([id number]) [address], [address] [place] [address] Triglyceride [Mass/Vol] 73 mg/dL Normal 27-150 [facility] Comment on above: Performed By: #### H A1C, 19739-8 #### [facility] ([id number]) [address], [address] [place] [address] Orders Onlyon 05-05-2023 Orders Only [id number] Kaylie Salomon A 1950 F Date Provider Department Center 05/05/2024 Bouchra-RADHA JARA AFUA Hardin Family History Problem Relation Age of Onset Heart failure Mother Family Status - Relation Status Age at Mother Normal [facility] Orders Onlyon 05-04-2024 Orders Only [id number] Kaylie Salomon A 1950 Date Provider Department Center 05/04/2024 ELIF ACOSTA Family History Problem Relation Age of Onset Heart failure Mother Family Status - Relation Status Age at Mother Normal [facility] Family Medicine Office/Clini c Noteon 03-30-2024 Family [...] provided. she will have it done at [facility] in [place]. denies needs at this time. RTC 6 months 2. Hypertensive disorder (I10: Essential (primary) hypertension) BP at goal today 3. BMI 45.0-49.9, adult (Z68.42: Body mass index [BMI] 45.0-49.9, adult) BMI educatin given 4. Non-smoker (Z78.9: Other specified health status) continue not smoking Orders: dapagliflozin, 5 mg = 1 tab(s), Oral, Daily, # 90 tab(s), Refills(s) 3, Pharmacy: [facility] #[id number] predniSONE, 30 mg = 3 tab(s), Oral, Once, take 3 tabs in am for 3 days for asthma flare up, # 9 tab(s), Refills(s) 1, Pharmacy: [facility] #[id number] Follow-up No qualifying data available Problem List/Past Medical History Ongoing Adult BMI 40.0-44.9 kg/sq m Allergic rhinitis Chronic respiratory failure with hypoxia Coronary arteriosclerosis in [place] artery Drooling Gastroesophageal reflux disease Heart failure, systolic and diastolic Hyperlipidemia due to type 2 diabetes mellitus Hypertensive disorder Hypoxemia Iron deficiency anemia secondary to inadequate dietary iron intake group home (current) use of inhaled steroids Lumbosacral spondylosis [...] in l (more content not included)... Normal [facility] Comment on above: Result Comment: Elec tronically Signed By: Oh Wynne\.br\Date and Time Signed: 03/30/24 12:26 EDT Home Health Recordson 2023 Home Health Records [id number]#[id number] 0TIFF Normal [facility] Pre-Visit Planningon 024 Pre-Visit Planning - From: Elif Cabrera To: Oh Wynne; Sent: 03/04/2024 15:13:04 EDT Subject: Pre-Visit Planning Due Date/Time: 03/04/2024 15:13:00 EDT Caller Name: KAYLIE SALOMON; Caller Number: Zee , M Oh Oh. During a pre-visit planning chart review, I noted the following documentation in the medical record: Current Problem List: Drooling and Tremor of both hands. Current Medication List: sertraline 50 mg daily. 01/09/2024 Office Visit Note: Tremor of both hands (R25.1: Tremor, unspecified) patient and caregiver states her psychiatrist from [facility] started her on ability due to audible [...] Score or Psychiatry Consult Notes located in [facility]. Based on your medical judgment, can [...] feel free to contact me at extension [phone]. Thank you! Elif Cabrera LPN From: Oh Wynne To: Elif Cabrera; Sent: 03/06/2024 08:18:11 EDT Subject: RE: Pre-Visit Planning Caller Name: AIMEAMARJITKAYLIE; Caller Number: , M major depressive disorder, recurrent moderate Normal [address] [facility] Ambulatory Visit Summaryon 0 03-05-2024 Ambulatory Visit Summary RAULAMARJIT HARVEYKAYLIE :1950 Visit Date:03/05/2024 Ambulatory Visit Instructions [...] 11:20 AM EDT With: Oh Wynne Where: [facility] Invalid Interpretation Code [address] [place] [address]- \.br\ You Need to Complete the Following\.br \ HgbA1c, Blood, Routine collect, 03/05/24, Order for future visit, Lab Collect, Type 2 diabetes mellitus with stage 3b chronic kidney disease [facility] Office/Clini c Noteon 03-05-2024 Family Medicine Office/Clinic [...] of clutter to prevent tripping and/or falling. [place] Advance Directives reviewed. Documents remain at home/ and in patient chart. Patient gets assistance with ADL's and Instrumental ADL's, patient has caregivers that come and stay with her for several hours each day and a daily visiting nurse from [facility]. Cognitive screening completed with memory and clock [...] patient has a visiting RN everyday through [facility]. Medicare provides yearly screening for alcohol and [...] a visiting nurse that comes daily from [facility] and follows with Cardiology, Dr. Gil, every 6 months and more as needed. Last office visit 12/11/23 visit summary notes available in chart for PCP review. Per caregiver patient is going to [facility] to get labs done for cardiology today. 3. Severe persistent asthma, uncomplicated (J45.50: Severe persistent asthma, uncomplicated) Patient takes inhalers as directed, uses PRN nebulizer treatments and inhaler when needed. Follows Dr. Castellon, Director [employer], yearly and as needed. Patient remains on R/A, o2Sat 92% today, respirations 20, non-labored. Will follow up as needed with Dr. Castellon. 4. Chronic respiratory failure with hypoxia (J96.11: Chronic respiratory failure with hypoxia) See #3. 5. Paroxysmal atrial fibrillation (I48.0: Paroxysmal atrial fibrillation) Follows Site Medical Director, Dr. Gil every 6 months and as needed. Denies SOB, chest pain or irregular heart rhythm. Manages medications, Eliquis and Metoprolol with office visits. Cardiac-/DASH nutritional education handout reviewed with patient and provided. Tries following healthy dietary intake. Last visit office notes are available in medical (more content not included)... Normal [facility] Comment on above: Result Comment: Elec tronically Signed By: Oh Wynne\.br\Date and Time Signed: 03/05/24 13:34 EDT\.br\Electronically Co-Signed By: Myah Ballard LPN\.br\Date and Time Co-Signed: 03/05/24 12:43 EDT Lab Reportson 03-05-2024 Lab Reports [id number]#1.00 TIFF Jarrell Smith [facility] Patient Educationon 03-05-20 Patient Education Endocrinology Diabetes Mellitus and Foot Care Foot care is an important part of your health, especially when you have diabetes. Diabetes may cause you to have problems because of poor blood flow (circulation) to your feet and legs, which can cause your skin to: ? Become thinner and skein yard drier. ? Break more easily. ? Heal [...] immediately. Where to find more information ? [place] [employer]: www.diabetes.org ? Association of Diabetes [...] provider. Document Revised: 04/06/2021 Document Reviewed: 04/06/2021 [employer] Patient Education ? 2022 [employer] Diabetes Mellitus and Nutrition, Adult When you have diabetes, or diabetes mellitus, it is very important to (more content not included)... Normal [facility] Pre-Visit Planningon 024 Pre-Visit Planning - From: [...] feel free to contact me at extension [phone]. Thank you! Elif Cabrera LPN From: Oh Wynne To: Elif Cabrera; Sent: 03/05/2024 08:17:33 EDT Subject: RE: Pre-Visit Planning Caller Name: KAYLIE SALOMON; Caller Number: Zee , Alesia chronic kidney disease stage 3b Normal [address] [facility] RAD - CT Reporton 03-05-20[address] RAD - CT Report [id number]#1.0 0TIFF Normal [facility] Screenson 03-05-2024 Screens [id number]#1.0 0TIFF Normal [facility] Pre-Visit Planningon 024 Pre-Visit Planning - From: [...] Mammography: *No Oncology Consult Notes located in [facility]. Based on your medical judgment, can [...] feel free to contact me at extension [phone]. Thank you! Elif Cabrera LPN Invalid Interpretation Code [address] [facility] Orders Onlyon 02-25-2024 Orders Only [id number] Kaylie Salomon A 1950 Provider Department Center 02/25/2024 ELIF ACOSTA [facility] Family History Problem Relation Age of Onset Heart failure Mother Family Status - Relation Status Age at Mother Normal [facility] Office Visiton 02-11-2024 Follow-up visit [id number] Kaylie Salomon A 1950 Provider Department Center 02/11/2024 [facility] Problem Relation Age of Onset Heart failure Mother Family Status - Relation Status Age at Mother Level of Service:43373 ID OFFICE/OUTPATIENT ESTABLISHED LOW MDM 20 MIN Normal [facility] [id number] 02-07-2024 [id number] PRE OP INSTRUCTIONS GIVEN TO LEAKAGE TESTER RUDDY [phone] ARRIVAL TIME 1030 HOLD ELIQUIS 02/10 MEDICATIONS TO TAKE DAY OF SURGERY WITH SIP OF WATER ALBUTEROL INHALER BREO ELLIPTA METOPROLOL PROTONIX RUDDY AGREES TO BRING PT [facility] ON 02/10 ASKED NELLIE Trevino RN TO SEND LAB ORDERS TO [place] ON 02/05 HOLD VITAMINS AND SUPPLEMENTS 5 DAYS PRIOR TO PROCEDURE HOLD ALL ANTI INFLAMMATORIES ETC:MOTRIN, ADVIL, ALEVE, FOR 5 DAYS PRIOR TO PROCEDURE IF YOU ARE GOING HOME AFTER YOUR SURGERY OR PROCEDURE, FOR YOUR SAFETY, YOUR SURGERY WILL BE CANCELLED IF BOTH OF THE FOLLOWING ARE NOT AVAILABLE: 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 Do not wear perfume, make-up, nail malaysian, or lotions on the day of your [...] need to make any changes, please call [phone]. Notify your surgeon if you develop any illness such as a cold, cough, fever, sore throat or vomiting between now and your surgery. Thank you for entrusting us with your care. [facility] Surgical Services Team Normal [facility] Orders Onlyon 02-07-2024 Orders Only [id number] Kaylie Salomon 1950 F Date Provider Department Center 02/07/20241986-FILIPE ANSARI [facility] IN [facility] Family History Problem Relation Age of Onset Heart failure Mother Family Status - Relation Status Age at Mother Normal [facility] Home Health Recordson 2023 Home Health Records [id number]#1.0 0TIFF [facility] Ambulatory Visit Summaryon 0 01-09-2024 [...] Follow-Up Appointments 2023 11:00 AM EDT Where: [facility] Medicine Mckenzie Normal [facility] Family Medicine Office/Clini c Noteon 01-09-2024 Family [...] patient and caregiver states her psychiatrist from [facility] started her on ability due to audible [...] (chronic obstructive pulmonary disease) Coronary arteriosclerosis in [place] artery Diabetes mellitus type II, non insulin [...] 50 mcg, (more content not included)... Normal [facility] Comment on above: Result Comment: Elec tronically Signed By: Con CASTAÑEDA, Oh Fuentes\.br\Date and Time Signed: 01/09/24 12:53 EDT BASIC METABOLIC PANELon 04-0 Anion gap [Moles/Vol] 12 mmol/L Normal 7-20 [facility] Comment on above: Performed By: #### L AB15 #### [facility] (BEAKER) [address] [place] [address] Calcium [Mass/Vol] 9.4 mg/dL Normal 8.6-10.3 [facility] Comment on above: Performed By: #### L AB15 #### [facility] (BEAKER) [address] [place] [address] Chloride [Moles/Vol] 98 mmol/L Normal 98-107 [facility] Comment on above: Performed By: #### L AB15 #### [facility] (BEAKER) [address] [facility] [place] [address] CO2 [Moles/Vol] 34 mmol/L High 21-31 [facility] Comment on above: Performed By: #### L AB15 #### [facility] (BEAKER) [address] [place] [address] Creatinine [Mass/Vol] 1.63 mg/dL High 0.60-1.20 [facility] Comment on above: Performed By: #### L AB15 #### [facility] ([facility]) [address] [facility] [place] [address] GLOMERULAR FILTRATION RATE ML/MIN/1.73 SQ M.PREDICTED 32.5 mL/min/1.73m*2 Low >60.0 [facility] Comment on above: Result Comment: The [facility]???s estimated glomerular filtration rate (eGFR) will no [...] individuals. Performed By: #### L AB15 #### [facility] ([facility]) [address] [place] [address] Glucose [Mass/Vol] 84 mg/dL Normal 70-100 [facility] Comment on above: Performed By: #### L AB15 #### [facility] ([facility]) [address] [place] [address] Potassium [Moles/Vol] 4.2 mmol/L Normal 3.5-5.1 [facility] Comment on above: Performed By: #### L AB15 #### [facility] ([facility]) [address] [place] [address] Sodium [Moles/Vol] 140 mmol/L Normal 136-145 [facility] Comment on above: Performed By: #### L AB15 #### [facility] ([facility]) [address] [place] [address] Urea nitrogen [Mass/Vol] 49 mg/dL High 7-25 [facility] Comment on above: Performed By: #### L AB15 #### [facility] ([facility]) [address] [place] [address] UREA NITROGEN/CREATININE (MASS RATIO) IN SER/PLAS 30.1 Normal [facility] Comment on above: Performed By: #### L AB15 #### [facility] ([facility]) [address] [place] [address] CBCon 01-07-2024 Erythrocyte distribution width (RBC) [Ratio] 15.9 % High 11.5-15.0 [facility] Comment on above: Performed By: #### L [id number] #### [facility] ([facility]) [address] [place] [address] ERYTHROCYTE MEAN CORPUSCULAR HEMOGLOBIN CONCENTRATION (G/DL) BY AUTOMATED 30.8 g/dL Low 32.0-35.0 [facility] Comment on above: Performed By: #### L [id number] #### [facility] ([facility]) [address] [place] [address] Hematocrit (Bld) [Volume fraction] 35.4 % Low 36.0-48.0 [facility] Comment on above: Performed By: #### L [id number] #### [facility] ([facility]) [address] [place] [address] Hemoglobin (Bld) [Mass/Vol] 10.9 g/dL Low 12.0-15.0 [facility] Comment on above: Performed By: #### L [id number] #### [facility] ([facility]) [address] [place] [address] MCH (RBC) [Entitic mass] 29.6 pg Normal 27.0-33.0 [facility] Comment on above: Performed By: #### L [id number] #### [facility] ([facility]) [address] [place] [address] MCV (RBC) [Entitic vol] 96.2 fL Normal 82.0-98.0 [facility] Comment on above: Performed By: #### L [id number] #### [facility] ([facility]) [address] [place] [address] PLATELETS (10*3/UL) IN BLOOD AUTOMATED COUNT 244 10*3/uL Normal 150-400 [facility] Comment on above: Performed By: #### L [id number] #### [facility] ([facility]) [address] [place] [address] RBC (Bld) [#/Vol] 3.68 10*6/uL Low 3.80-5.00 [facility] Comment on above: Performed By: #### L [id number] #### [facility] ([facility]) [address] [place] [address] WBC (Bld) [#/Vol] 7.68 10*3/uL Normal 4.00-10.60 [facility] Comment on above: Performed By: #### L [id number] #### [facility] ([facility]) [address] [place] [address] CTA CHEST W IV CONTRASTon CTA CHEST [...] Steven Solomon. Maira Cook Invalid Interpretation Code [facility] Comment on above: Order Comment: Doroteo keith schedule prior to February 12 Labon 01-07-2024 Lab [id number] Kaylie Salomon 1950 F Date Provider Department Center 01/07/2024 2245-[facility] OPD LAB RESOURCE [facility] OPD IN Medical C Family History Problem Relation Age of Onset Heart failure Mother Family Status - Relation Status Age at Mother Normal [facility] Orders Onlyon 01-07-2024 Orders Only [id number] Kaylie Salomon A 1950 Date Provider Department Center 01/07/2024 241-BRIAN GIL [place] AFUA Duncan Family History Problem Relation Age of Onset Heart failure Mother Family Status - Relation Status Age at Mother Normal [facility] Orders Only [id number] Kaylie Salomon A 1950 Date Provider Department Center 01/07/2024 120ELIF LINDQUIST. Family History Problem Relation Age of Onset Heart failure Mother Family Status - Relation Status Age at Mother Normal [facility] Prep for Procedureon 024 Prep for Procedure [id number] Kaylie Salomon A 1950 Date Provider Department [place] 01/03/2024 1987-FILIPE ANSARI [facility] Family History Problem Relation Age of Onset Heart failure Mother Family Status - Relation Status Age at Mother Normal [facility] Consultation Noteon 12-13-19 24 Consultation Note [id number] .00TIFF [facility] Orders Onlyon 12-13-2023 Orders Only [id number] Kaylie Salomon A 1950 Date Provider Department Center 12/13/2023 ELIF ACOSTA. Family History Problem Relation Age of Onset Heart failure Mother Family Status - Relation Status Age at Mother Normal [facility] Office Visiton 12-11-2023 Follow-up visit [id number] Ruiz 1950 Date Provider Department Center 12/11/2023 ELIF ACOSTA AFUA Hardin Family History Problem Relation Age of Onset Heart failure Mother Family Status - Relation Status Age at Mother Level of Service:24387 ID OFFICE/OUTPATIENT ESTABLISHED MOD MDM 30 MIN Normal [facility] Plan of Care - PT/OT/Speecho n 12-05-2023 Plan of Care - PT/OT/Speech [id number]#1.0 0TIFF Normal [facility] Telephoneon 11-29-2023 Telephone [id number] Kaylie Salomon 1950 F Date Provider Department Center 11/29/2023 BRIAN DIXON AFUA Mckenzie Hardin Family History Problem Relation Age of Onset Heart failure Mother Family Status - Relation Status Age at Mother Reason for Visit and Comments: Med Refill [[id number]] Normal [facility] Physician Referralon 024 Physician Referral [id number] 0TIFF Normal [facility] Home Health Recordson 2023 Home Health Records [id number]#1.0 0TIFF Normal [facility] Cardiovascular Reporton Cardiovascular Report [id number]#1.0 0TIFF Normal [facility] Lab Reportson 11-01-2023 Lab Reports [id number]#1.0 0TIFF Normal [facility] 36on 10-31-2023 36 I called Miguelina and told her thyroid labs abnormal. I confirmed PCP. The PCP office is currently closed and unable to get fax number. I will get sent next Saturday when I am back in the office. Normal [facility] BASIC METABOLIC PANELon Anion gap [Moles/Vol] 9 mmol/L Normal 7-20 [facility] Comment on above: Performed By: #### L AB15 #### [facility] ([facility]AKER) [address] [place] [address] Calcium [Mass/Vol] 9.4 mg/dL Normal 8.6-10.3 [facility] Comment on above: Performed By: #### L AB15 #### [facility] (BEAKER) [address] [place] [address] Chloride [Moles/Vol] 101 mmol/L Normal 98-107 [facility] Comment on above: Performed By: #### L AB15 #### [facility] ([facility]) [address] [place] [address] CO2 [Moles/Vol] 35 mmol/L High 21-31 [facility] Comment on above: Performed By: #### L AB15 #### [facility] ([facility]) [address] [place] [address] Creatinine [Mass/Vol] 1.25 mg/dL High 0.60-1.20 [facility] Comment on above: Performed By: #### L AB15 #### [facility] ([facility]) [address] [place] [address] GLOMERULAR FILTRATION RATE ML/MIN/1.73 SQ M.PREDICTED 44.9 mL/min/1.73m*2 Low >60.0 [facility] Comment on above: Result Comment: [facility]???s estimated glomerular filtration rate (eGFR) will no [...] individuals. Performed By: #### L AB15 #### [facility] ([facility]) [address] [place] [address] Glucose [Mass/Vol] 125 mg/dL High 70-100 [facility] Comment on above: Performed By: #### L AB15 #### [facility] ([facility]) [address] [place] [address] Potassium [Moles/Vol] 4.2 mmol/L Normal 3.5-5.1 [facility] Comment on above: Performed By: #### L AB15 #### [facility] ([facility]) [address] [place] [address] Sodium [Moles/Vol] 141 mmol/L Normal 136-145 [facility] Comment on above: Performed By: #### L AB15 #### [facility] (BEAKER) [address] [place] [address] Urea nitrogen [Mass/Vol] 42 mg/dL High 7-25 [facility] Comment on above: Performed By: #### L AB15 #### [facility] ([facility]) [address] [place] [address] UREA NITROGEN/CREATININE (MASS RATIO) IN SER/PLAS 33.6 Normal [facility] Comment on above: Performed By: #### L AB15 #### [facility] ([facility]) [address] [place] [address] HPon 10-31-2023 [facility] Electrophysiology Consult Note Reason for visit: [...] the heart failure team as well as Martir SEPULVEDA. Maria D Rahman CNP increased lasix to 40mg in the [...] seafood Sulfa (Sulfonamide Antibiotics) Other and Unknown Shbhktre-Kysihngngw-Is lymyxin Rash Penicillins Rash Weight: 122kg Visit [...] EVERY DAY (more content not included)... Normal [facility] MAGNESIUMon 10-31-2023 Magnesium [Mass/Vol] 2.0 mg/dL Normal 1.9-2.7 [facility] Comment on above: Performed By: #### L AB103 ####[facility] (BEAKER)[address] [place] [address] NURSNOTDerick 10-31-2023 NURSBETY RN educated pt and caregiver on discharge instructions. RN encouraged pt to voice any questions or concerns. Pt verbalizes no questions or concerns at this time. Pt was wheeled off unit with all belongings. Normal [facility] T4, FREEon 10-31-2023 THYROXINE (T4) FREE (NG/DL) IN SER/PLAS 0.98 ng/dL Normal 0.71-1.85 [facility] Comment on above: Performed By: #### L AB127 #### [facility] ([facility]) [address] [place] [address] TSH3 REFLEX TO FT4on 024 THYROTROPIN (MIU/L) IN SER/PLAS BY DETECTION LIMIT <= 0.05 MIU/L 6.15 mIU/L High 0.34-5.60 [facility] Comment on above: Performed By: #### L [id number] ####[facility] ([facility])[address] [place] [address] CBC AND AUTO DIFFon 10-24-19 24 ABSOLUTE BASOPHIL 0.1 X10E9/L Normal 0.0-0.2 [facility] Comment on above: Performed By: #### 3 024-7, CBCA, TSHR, 16084-0 #### [facility] ([id number]) [address], [address] [place] [address] ABSOLUTE NEUTROPHIL 6.1 X10E9/L Normal 1.5-6.6 [facility] Comment on above: Performed By: #### 3 024-7, CBCA, TSHR, 82458-0 #### [facility] ([id number]) [address], [address] [place] [address] Basophils/100 WBC (Bld) 0.7 % Normal [facility] Comment on above: Performed By: #### 3 024-7, CBCA, TSHR, 28558-7 #### [facility] ([id number]) [address], [address] [place] [address] Eosinophils (Bld) [#/Vol] 0.0 10*3/uL Normal 0.0-0.4 [facility] Comment on above: Performed By: #### 3 024-7, CBCA, TSHR, #### [facility] ([id number]) [address], [address] [place] [address] Eosinophils/100 WBC (Bld) 0.0 % Normal [facility] Comment on above: Performed By: #### 3 024-7, CBCA, TSHR, #### [facility] ([id number]) [address], [facility] [address] [place] [address] Erythrocyte distribution width (RBC) [Ratio] 15.9 % High 11.5-15.0 [facility] Comment on above: Performed By: #### 3 024-7, CBCA, TSHR, #### [facility] ([id number]) [address], [address] [place] [address] Hematocrit (Bld) [Volume fraction] 37.3 % Normal 35-47 [facility] Comment on above: Performed By: #### 3 024-7, CBCA, TSHR, 61990-0 #### [facility] ([id number]) [address], [address] [place] [address] Hemoglobin (Bld) [Mass/Vol] 12.1 g/dL Normal 11.7-15.5 [facility] Comment on above: Performed By: #### 3 024-7, CBCA, TSHR, #### [facility] ([id number]) [address], [facility] [address] [place] [address] Lymphocytes (Bld) [#/Vol] 1.1 10*3/uL Normal 1.0-3.5 [facility] Comment on above: Performed By: #### 3 024-7, CBCA, TSHR, #### [facility] ([id number]) [address], [address] [place] [address] Lymphocytes/100 WBC (Bld) 13.6 % Normal [facility] Comment on above: Performed By: #### 3 024-7, CBCA, TSHR, #### [facility] ([id number]) [address], [address] [place] [address] MCH (RBC) [Entitic mass] 28.7 pg Normal 27-34 [facility] Comment on above: Performed By: #### 3 024-7, CBCA, TSHR, #### [facility] ([id number]) [address], [address] [place] [address] MCHC (RBC) [Mass/Vol] 32.5 g/dL Normal 32-36 [facility] Comment on above: Performed By: #### 3 024-7, CBCA, TSHR, #### [facility] ([id number]) [address], [address] [place] [address] MCV (RBC) [Entitic vol] 88 fL Normal 80-100 [facility] Comment on above: Performed By: #### 3 024-7, CBCA, TSHR, #### [facility] ([id number]) [address], [address] [place] [address] Monocytes (Bld) [#/Vol] 0.5 10*3/uL Normal 0-0.9 [facility] Comment on above: Performed By: #### 3 024-7, CBCA, TSHR, #### [facility] ([id number]) [address], [address] [place] [address] Monocytes/100 WBC (Bld) 7.0 % Normal [facility] Comment on above: Performed By: #### 3 024-7, CBCA, TSHR, #### [facility] ([id number]) [address] [address] [place] [address] Neutrophils/100 WBC (Bld) 78.7 % Normal [facility] Comment on above: Performed By: #### 3 024-7, CBCA, TSHR, 12458-5 #### [facility] ([id number]) [address] [address] [place] [address] Platelet mean volume (Bld) [Entitic vol] 8.6 fL Normal 7-12 [facility] Comment on above: Performed By: #### 3 024-7, CBCA, TSHR, 33187-6 #### [facility] ([id number]) [address] [address] [place] [address] Platelets (Bld) [#/Vol] 286 10*3/uL Normal 150-450 [facility] Comment on above: Performed By: #### 3 024-7, CBCA, TSHR, #### [facility] ([id number]) [address] [address] [place] [address] RBC COUNT 4.23 X10E12/L Normal 3.80-5.20 [facility] Comment on above: Performed By: #### 3 024-7, CBCA, TSHR, #### [facility] ([id number]) [address] [address] WBC (Bld) [#/Vol] 7.8 10*3/uL Normal 4.0-11.0 [facility] Comment on above: Performed By: #### 3 024-7, CBCA, TSHR, #### [facility] ([id number]) [address] [address] [place] [address] FREE T4on 10-24-2023 Free T4 [Mass/Vol] 1.11 ng/dL Normal 0.61-1.60 [facility] Comment on above: Performed By: #### 3 024-7, CBCA, TSHR, #### [facility] ([id number]) [address] [place] [address] MAGNESIUMon 10-24-2023 Magnesium [Mass/Vol] 2.0 mg/dL Normal 1.8-2.6 [facility] Comment on above: Performed By: #### 3 024-7, CBCA, TSHR, 42874-7 #### [facility] ([id number]) [address] [facility], [address] [place] [address] TSH WITH REFLEXon 10-24-2023 TSH 5.36 uIU/mL High 0.49-4.67 [facility] Comment on above: Performed By: #### 3 024-7, CBCA, TSHR, 26563-1 #### [facility] ([id number]) [address] [facility], [address] [place] [address] Orders Onlyon 10-23-2023 Orders Only [id number] Kaylie Salomon 1950 F Date Provider Department Center 10/23/2023 [facility] IN [facility] Family History Problem Relation Age of Onset Heart failure Mother Family Status - Relation Status Age at Mother Normal [facility] Office Visiton 09-17-2023 Follow-up visit [id number] Kaylie Salomon 1950 Date Provider Department Center 09/17/2023 BRIAN DIX[facility] Family History Problem Relation Age of Onset Heart failure Mother Family Status - Relation Status Age at Mother Level of Service:09125 ID OFFICE/OUTPATIENT NEW MODERATE MDM 45 MINUTES Normal [facility] CBC W Auto Differential pane l (Bld)on 09-12-2023 Basophils (Bld) [#/Vol] 10*3/uL Normal <0.11 [facility] Comment on above: Order Comment: Speci men Type: BLOOD SPECIMEN Ordering Facility: [facility] Address: [address] [place] [address] [place], [place] [address] Performed By: #### 5 7021-8 #### [facility] CLIA [id number] [address] [place] [address] Basophils/100 WBC (Bld) 0.2 % Normal [facility] Comment on above: Order Comment: Speci men Type: BLOOD SPECIMEN Ordering Facility: [facility] Address: [address] [place] [address] Performed By: #### 5 7021-8 #### [facility] CLIA [id number] [address] [place] [address] Differential cell count method Nom (Bld) Auto Normal [facility] Comment on above: Order Comment: Speci men Type: BLOOD SPECIMEN Ordering Facility: [facility] Address: [address] [place] [address] Performed By: #### 5 7021-8 #### [facility] CLIA [id number] [address] [place] [address] Eosinophils (Bld) [#/Vol] 10*3/uL Normal <0.46 [facility] Comment on above: Order Comment: Speci men Type: BLOOD SPECIMEN Ordering Facility: [facility] Address: [address] [place] [address] Performed By: #### 5 7021-8 #### [facility] CLIA [id number] [address] [place] [address] Eosinophils/100 WBC (Bld) 0.0 % Normal [facility] Comment on above: Order Comment: Speci men Type: BLOOD SPECIMEN Ordering Facility: [facility] Address: [address] [place] [address] Performed By: #### 5 7021-8 #### [facility] CLIA [id number] [address] [place] [address] Erythrocyte distribution width (RBC) [Ratio] 14.5 % Normal 11.5-15.0 [facility] Comment on above: Order Comment: Speci men Type: BLOOD SPECIMEN Ordering Facility: [facility] Address: [address] [place] [address] Performed By: #### 5 7021-8 #### [facility] CLIA [id number] [address] [place] [address] Hematocrit (Bld) [Volume fraction] 38.7 % Normal 36.0-46.0 [facility] Comment on above: Order Comment: Speci men Type: BLOOD SPECIMEN Ordering Facility: [facility] Address: [address] [place] [address] Performed By: #### 5 7021-8 #### [facility] CLIA [id number] [address] [place] [address] Hemoglobin (Bld) [Mass/Vol] 11.7 g/dL Normal 11.5-15.5 [facility] Comment on above: Order Comment: Speci men Type: BLOOD SPECIMEN Ordering Facility: [facility] Address: [address] [place] [address] Performed By: #### 5 7021-8 #### [facility] CLIA [id number] [address] [place] [address] Immature granulocytes (Bld) [#/Vol] 0.03 10*3/uL Normal <0.10 [facility] Comment on above: Order Comment: Speci men Type: BLOOD SPECIMEN Ordering Facility: [facility] Address: [address] [place] [address] Performed By: #### 5 7021-8 #### [facility] CLIA [id number] [address] [place] [address] Immature granulocytes/100 WBC (Bld) 0.3 % Normal [facility] Comment on above: Order Comment: Speci men Type: BLOOD SPECIMEN Ordering Facility: [facility] Address: [address] [place] [address] Performed By: #### 5 7021-8 #### [facility] CLIA [id number] [address] [place] [address] Lymphocytes (Bld) [#/Vol] 1.10 10*3/uL Normal 1.00-4.00 [facility] Comment on above: Order Comment: Speci men Type: BLOOD SPECIMEN Ordering Facility: [facility] Address: [address] [place] [address] Performed By: #### 5 7021-8 #### [facility] CLIA [id number] [address] [place] [address] Lymphocytes/100 WBC (Bld) 11.2 % Normal [facility] Comment on above: Order Comment: Speci men Type: BLOOD SPECIMEN Ordering Facility: [facility] Address: [address] [place] [address] Performed By: #### 5 7021-8 #### [facility] CLIA [id number] [address] [place] [address] MCH (RBC) [Entitic mass] 27.5 pg Normal 26.0-34.0 [facility] Comment on above: Order Comment: Speci men Type: BLOOD SPECIMEN Ordering Facility: [facility] Address: [address] [place] [address] Performed By: #### 5 7021-8 #### [facility] CLIA [id number] [address] [place] [address] MCHC (RBC) [Mass/Vol] 30.2 g/dL Low 30.5-36.0 [facility] Comment on above: Order Comment: Speci men Type: BLOOD SPECIMEN Ordering Facility: [facility] Address: [address] [place] [address] Performed By: #### 5 7021-8 #### [facility] CLIA [id number] [address] [place] [address] MCV (RBC) [Entitic vol] 91.1 fL Normal 80.0-100.0 [facility] Comment on above: Order Comment: Speci men Type: BLOOD SPECIMEN Ordering Facility: [facility] Address: [address] [place] [address] Performed By: #### 5 7021-8 #### [facility] CLIA [id number] [address] [place] [address] Monocytes (Bld) [#/Vol] 0.92 10*3/uL High <0.87 [facility] Comment on above: Order Comment: Speci men Type: BLOOD SPECIMEN Ordering Facility: [facility] Address: [address] [place] [address] Performed By: #### 5 7021-8 #### [facility] CLIA [id number] [address] [place] [address] Monocytes/100 WBC (Bld) 9.4 % Normal [facility] Comment on above: Order Comment: Speci men Type: BLOOD SPECIMEN Ordering Facility: [facility] Address: [address] [place] [address] Performed By: #### 5 7021-8 #### [facility] CLIA [id number] [address] [place] [address] Neutrophils (Bld) [#/Vol] 7.74 10*3/uL High 1.45-7.50 [facility] Comment on above: Order Comment: Speci men Type: BLOOD SPECIMEN Ordering Facility: [facility] Address: [address] [place] [address] Performed By: #### 5 7021-8 #### [facility] CLIA [id number] [address] [place] [address] Neutrophils/100 WBC (Bld) 78.9 % Normal [facility] Comment on above: Order Comment: Speci men Type: BLOOD SPECIMEN Ordering Facility: [facility] Address: [address] [place] [address] Performed By: #### 5 7021-8 #### [facility] CLIA [id number] [address] [place] [address]48[address] Nucleated RBC (Bld) [#/Vol] 10*3/uL Normal <0.01 [facility] Comment on above: Order Comment: Speci men Type: BLOOD SPECIMEN Ordering Facility: [facility] Address: [address] [place] [address] Performed By: #### 5 7021-8 #### [facility] CLIA [id number] [address] [place] [address] Nucleated RBC/100 WBC (Bld) [Ratio] 0.0 /100 WBC Normal [facility] Comment on above: Order Comment: Speci men Type: BLOOD SPECIMEN Ordering Facility: [facility] Address: [address] [place] [address] Performed By: #### 5 7021-8 #### [facility] CLIA [id number] [address] [place] [address] Platelet mean volume (Bld) [Entitic vol] 9.4 fL Normal 9.0-12.7 [facility] Comment on above: Order Comment: Speci men Type: BLOOD SPECIMEN Ordering Facility: [facility] Address: [address] [place] [address] Performed By: #### 5 7021-8 #### [facility] CLIA [id number] [address] [place] [address] Platelets (Bld) [#/Vol] 279 10*3/uL Normal 150-400 [facility] Comment on above: Order Comment: Speci men Type: BLOOD SPECIMEN Ordering Facility: [facility] Address: [address] [place] [address] Performed By: #### 5 7021-8 #### [facility] CLIA [id number] [address] [place] [address] RBC (Bld) [#/Vol] 4.25 10*6/uL Normal 3.90-5.20 [facility] Comment on above: Order Comment: Speci men Type: BLOOD SPECIMEN Ordering Facility: [facility] Address: [address] [place] [address] Performed By: #### 5 7021-8 #### [facility] CLIA [id number] [address] [place] [address] WBC (Bld) [#/Vol] 9.81 10*3/uL Normal 3.70-11.00 [facility] Comment on above: Order Comment: Speci men Type: BLOOD SPECIMEN Ordering Facility: [facility] Address: [address], [place] [address] Performed By: #### 5 7021-8 #### [facility] CLIA [id number] [address] [place] [address] CNOVSPon 09-12-2023 CNOVSP Visit (SP) Office ([place]) KAYLIE SALOMON ([id number]) 1950 F Date Time Provider Department 09/12/23 1:15 PM REGINALD ARAGON During your visit today, we recorded the following information about you: Temperature Pulse Respiration Blood pressure 97.7 degrees 88/minute 16/minute 108/67 Weight Height 121.6 kg 1.677 m Reginald Aragon MD 09/12/2023 7:56 PM Signed PATIENT NAME: Kaylie Salomon DATE: 09/12/2023 PRIMARY CARE PHYSICIAN: Dr. Landeros OTHER PHYSICIANS: Dr. Ramon Smith, [facility] XRT Portions of this encounter note have [...] on 03/14/2023) ALLERGIES: Clarithromycin, Conjugated Estrogens, Neosporin [Otudivou-Yzhnixvgct-U olymyxin], Paclitaxel, Peanut, Penicillins, and Sulfa (Sulfonamide [...] Skin: Ne (more content not included)... [facility] [place] Telephone ([place]) KAYLIE SALOMON ([id number]) 1950 F Date Time Provider Department 09/12/23 CARIN RAMOS During your visit today, we recorded the following information about you: Carin Ramos RN 09/12/2023 1:42 PM Signed BRM/HM: Please sign pended order Orders sent to [facility] special woman, [facility] PH: [phone] Will notifagustin Monsalve, patient care, once signed DILCIA Velasco Natalie, RN 09/12/2023 2:59 PM Signed Ordered faxed to [facility] Ramos RN Allergies As of Date: 09/12/2023 Noted Allergy Reaction CLARITHROMYCIN 01/27/2010 16 - Unknown CONJUGATED ESTROGENS 01/27/2010 16 - Unknown NEOSPORIN ([id number]-DNNQIVYTVX-S O*05/06/2019 2 - Rash PACLITAXEL 08/24/2019 14 [...] right breast [Z90.11] Order(s):BREAST PROSTHESIS, MASTECTOMY BRA [[id number]] Order #: [id number] Prescriptions as of 09/12/2023 - BREO ELLIPTA [...] secondary to inadequate *06/17/2019 Encounter Status:Closed by RAMOS, CARIN on 09/12/23 Normal [facility] Cancer Ag27-29 SerPl-aCncon 09-12-2023 Cancer Ag 27-29 Qn 31.6 [arb'U]/mL Normal <38.6 [facility] Comment on above: Order Comment: Speci men Type: BLOOD SPECIMEN Ordering Facility: [facility] Address: [address] [place] [address] Result Comment: The CA27.29 test was performed using the hive01aur XP chemiluminometric immunoassay method. Results obtained with different assay methods or kits cannot be used interchangeably. Performed By: #### 1 7842-6 #### [facility] CLIA [id number] [address] [facility] [id number] [place] [address] [place] Comprehensive metabolic 2000 panelon 09-12-2023 Albumin [Mass/Vol] 4.4 g/dL Normal 3.9-4.9 [facility] Comment on above: Order Comment: Speci men Type: BLOOD SPECIMEN Ordering Facility: [facility] Address: [address] [place] [address] Performed By: #### 2 4323-8 #### [facility] CLIA [id number] [address] [place] [address] ALP [Catalytic activity/Vol] 87 U/L Normal 34-123 [facility] Comment on above: Order Comment: Speci men Type: BLOOD SPECIMEN Ordering Facility: [facility] Address: [address] [place] [address] Performed By: #### 2 4323-8 #### [facility] CLIA [id number] [address] [place] [address]38 ALT [Catalytic activity/Vol] 11 U/L Normal 7-38 [facility] Comment on above: Order Comment: Speci men Type: BLOOD SPECIMEN Ordering Facility: [facility] Address: [address] [place] [address] Performed By: #### 2 4323-8 #### [facility] CLIA [id number] [address] [place] [address] Anion gap [Moles/Vol] 10 mmol/L Normal 9-18 [facility] Comment on above: Order Comment: Speci men Type: BLOOD SPECIMEN Ordering Facility: [facility] Address: [address] [place] [address] Performed By: #### 2 4323-8 #### [facility] CLIA [id number] [address] [place] [address] 28408 AST [Catalytic activity/Vol] 14 U/L Normal 13-35 [facility] Comment on above: Order Comment: Speci men Type: BLOOD SPECIMEN Ordering Facility: [facility] Address: [address] [place] [address] Performed By: #### 2 4323-8 #### [facility] CLIA [id number] [address] [place] [address]63 Bilirubin [Mass/Vol] 0.6 mg/dL Normal 0.2-1.3 [facility] Comment on above: Order Comment: Speci men Type: BLOOD SPECIMEN Ordering Facility: [facility] Address: [address] [place] [address] Performed By: #### 2 4323-8 #### [facility] CLIA [id number] [address] [place] [address] 85646 Calcium [Mass/Vol] 9.7 mg/dL Normal 8.5-10.2 [facility] Comment on above: Order Comment: Speci men Type: BLOOD SPECIMEN Ordering Facility: [facility] Address: [address] [place] [address] Performed By: #### 2 4323-8 #### [facility] CLIA [id number] [address] [place] [address]128 Chloride [Moles/Vol] 96 mmol/L Low 97-105 [facility] Comment on above: Order Comment: Speci men Type: BLOOD SPECIMEN Ordering Facility: [facility] Address: [address] [place] [address] Performed By: #### 2 4323-8 #### [facility] CLIA [id number] [address] [place] [address] CO2 [Moles/Vol] 31 mmol/L High 22-30 [facility] Comment on above: Order Comment: Speci men Type: BLOOD SPECIMEN Ordering Facility: [facility] Address: [address] [place] [address] Performed By: #### 2 4323-8 #### [facility] CLIA [id number] [address] [place] [address]50 Creatinine [Mass/Vol] 1.10 mg/dL High 0.58-0.96 [facility] Comment on above: Order Comment: Speci men Type: BLOOD SPECIMEN Ordering Facility: [facility] Address: [address] [place] [address] Performed By: #### 2 4323-8 #### [facility] CLIA [id number] [address] [place] [address] Creatinine and Glomerular filtration rate.predicted panel (S/P/Bld) 53 mL/min/1.73m??? Low >=60 [facility] Comment on above: Order Comment: Speci men Type: BLOOD SPECIMEN Ordering Facility: [facility] Address: [address] [place] [address] Result Comment: Violette mated Glomerular Filtration Rate [...] GFR. Performed By: #### 2 4323-8 #### [facility] CLIA [id number] [address] [place] [address] 20323 Glucose [Mass/Vol] 115 mg/dL High 74-99 [facility] Comment on above: Order Comment: Speci maribeth Type: BLOOD SPECIMEN Ordering Facility: [facility] Address: [address] [place], [place] [address] Result Comment: The [place] [employer] (ADA) provides guidance for cutoff [...] Standards of Medical Care in Diabetes 2016, [place] [employer]. Diabetes Care. 2016.39(Suppl 1). Performed By: #### 2 4323-8 #### [facility] CLIA [id number] [address] [place] [address] Potassium [Moles/Vol] 4.4 mmol/L Normal 3.7-5.1 [facility] Comment on above: Order Comment: Jennifer stahl Type: BLOOD SPECIMEN Ordering Facility: [facility] Address: [address] [place] [address] Performed By: #### 2 4323-8 #### [facility] CLIA [id number] [address] [place] [address] 29732 Protein [Mass/Vol] 7.4 g/dL Normal 6.3-8.0 [facility] [facility] Comment on above: Order Comment: Brooklyni maribeth Type: BLOOD SPECIMEN Ordering Facility: [facility] Address: [address] [place] [address] Performed By: #### 2 4323-8 #### [facility] CLIA [id number] [address] [place] [address] Sodium [Moles/Vol] 137 mmol/L Normal 136-144 [facility] Comment on above: Order Comment: Brooklyni men Type: BLOOD SPECIMEN Ordering Facility: [facility] Address: [address] [facility] [place] [address] Performed By: #### 2 4323-8 #### [facility] CLIA [id number] [address] [place] [address]338 Urea nitrogen [Mass/Vol] 36 mg/dL High 7-21 [facility] Comment on above: Order Comment: Speci men Type: BLOOD SPECIMEN Ordering Facility: [facility] Address: [place] [address] Performed By: #### 2 4323-8 #### [facility] CLIA [id number] [address] [place] [address] 23677 CBC W Auto Differential pane l (Bld)on 09-13-2022 Basophils (Bld) [#/Vol] <0.11 k/uL [facility] Basophils/100 WBC (Bld) 0.2 % [facility] Differential cell count method Nom (Bld) Auto [facility] Eosinophils (Bld) [#/Vol] <0.46 k/uL [facility] Eosinophils/100 WBC (Bld) 0.0 % [facility] Erythrocyte distribution width (RBC) [Ratio] 14.1 % 11.5 - 15.0 % [facility] Hematocrit (Bld) [Volume fraction] 38.1 % 36.0 - 46.0 % [facility] Hemoglobin (Bld) [Mass/Vol] 11.7 g/dL 11.5 - 15.5 g/dL [facility] Immature granulocytes (Bld) [#/Vol] 0.05 10*3/uL <0.10 k/uL [facility] Immature granulocytes/100 WBC (Bld) 0.5 % [facility] Lymphocytes (Bld) [#/Vol] 1.15 10*3/uL 1.00 - 4.00 k/uL [facility] Lymphocytes/100 WBC (Bld) 11.5 % [facility] MCH (RBC) [Entitic mass] 29.4 pg 26.0 - 34.[address] [facility] MCHC (RBC) [Mass/Vol] 30.7 g/dL 30.5 - 36.0 g/dL [facility] MCV (RBC) [Entitic vol] 95.7 fL 80.0 - 100.[address] [facility] Monocytes (Bld) [#/Vol] 0.75 10*3/uL <0.87 k/uL [facility] Monocytes/100 WBC (Bld) 7.5 % [facility] Neutrophils (Bld) [#/Vol] 8.04 10*3/uL High 1.45 - 7.50 k/uL [facility] Neutrophils/100 WBC (Bld) 80.3 % [facility] Nucleated RBC (Bld) [#/Vol] <0.01 k/uL [facility] Nucleated RBC/100 WBC (Bld) [Ratio] 0.0 /[address] [facility] Platelet mean volume (Bld) [Entitic vol] 10.0 fL 9.0 - 12.[address] [facility] Platelets (Bld) [#/Vol] 267 10*3/uL 150 - 400 k/uL [facility] RBC (Bld) [#/Vol] 3.98 10*6/uL 3.90 - 5.2 0 m/uL [facility] WBC (Bld) [#/Vol] 10.01 10*3/uL 3.70 - 11 .00 k/uL [facility] Comprehensive metabolic 2000 panelon 09-13-2022 Albumin [Mass/Vol] 4.2 g/dL 3.9 - 4.9 g/dL [facility] ALP [Catalytic activity/Vol] 97 U/L 34 - 123 U/L [facility] ALT [Catalytic activity/Vol] 10 U/L 7 - 38 U/L [facility] Anion gap [Moles/Vol] 10 mmol/L 9 - 18 mmol/L [facility] AST [Catalytic activity/Vol] 12 U/L Low 13 - 35 U/L [facility] Bilirubin [Mass/Vol] 0.4 mg/dL 0.2 - 1.3 mg/dL [facility] Calcium [Mass/Vol] 9.3 mg/dL 8.5 - 10. 2 mg/dL [facility] Chloride [Moles/Vol] 101 mmol/L 97 - 105 mmol/L [facility] CO2 [Moles/Vol] 29 mmol/L 22 - 30 mmol/L [facility] Creatinine [Mass/Vol] 1.02 mg/dL High 0.58 - 0.96 mg/dL [facility] Estimated Glomerular Filtration Rate 58 mL/min/1.73m Low >=60 mL/min/1.73m [facility] Glucose [Mass/Vol] 139 mg/dL High 74 - 99 mg/dL [facility] Potassium [Moles/Vol] 3.9 mmol/L 3.7 - 5.1 mmol/L [facility] Protein [Mass/Vol] 6.9 g/dL 6.3 - 8.0 g/dL [facility] Sodium [Moles/Vol] 140 mmol/L 136 - 144 mmol/L [facility] Urea nitrogen [Mass/Vol] 25 mg/dL High 7 - 21 mg/dL [facility] XR CHEST 2 Von 08-15-2022 XR [...] DEEPTI MALLORY Date: 2022-08-15 06:58 Normal [facility] BNPon 07-23-2022 Natriuretic peptide B (Bld) [Mass/Vol] 1362.0 pg/mL Critically high <=900.0 [facility] Comment on above: Performed By: #### C MADM, CMP, BNP #### [facility] [address] [address] [address] Hector Rubio CARDIAC [place] ADMITon 022 CK [Catalytic activity/Vol] 84 U/L Normal 26-192 [facility] Comment on above: Performed By: #### C MADM, CMP, BNP #### [facility] [address] [address] [address] Hector Rubio CK.MB [Mass/Vol] 2.22 ng/mL Normal <=3.60 [facility] Comment on above: Performed By: #### C MADM, CMP, BNP #### [facility] [address] [address] [address] Hector Rubio HSTROP 41.0 pg/mL Normal 4.0-51.3 [facility] Comment on above: Result Comment: CUT- OFF POINTS HAVE BEEN ESTABLISHED BASED ON THE FOURTH UNIVERSAL DEFINITIONS OF MYOCARDIAL INFARCTION. THE UPPER REFERENCE LIMIT (URL) OF TROPONIN, DEFINED THE 99TH PERCENTILE OF cTnI DISTRIBUTION IN A REFERENCE POPULATION, HAS BEEN CONFIRMED THE DECISION THRESHOLD FOR [place] DIAGNOSIS. Performed By: #### C MADM, CMP, BNP #### [facility] [address] [address] [address] Hector Rubio DIONNE 95 ng/mL Critically high 9-82 [facility] Comment on above: Performed By: #### C MADM, CMP, BNP #### [facility] [address] [place] [address] Dr. Hector Rubio CBC AUTO DIFFon 07-23-2022 BASO # 0.0 103/ul Normal 0.0-0.1 [facility] Comment on above: Performed By: #### C BC #### [facility] [address] [address] [address] Hector Rubio Basophils/100 WBC (Bld) 0.1 % Critically low 0.2-2.0 [facility] Comment on above: Performed By: #### C BC #### [facility] [address] [address] [address] Hector Rubio EO # 0.0 103/ul Normal 0.0-0.7 [facility] Comment on above: Performed By: #### C BC #### [facility] [address] [place] [address] Dr. Hector Rubio Eosinophils/100 WBC (Bld) 0.0 % Critically low 0.9-7.0 [facility] Comment on above: Performed By: #### C BC #### [facility] [address] [place] [address] Dr. Hector Rubio Erythrocyte distribution width (RBC) [Ratio] 13.7 % Normal 11.0-15.0 [facility] Comment on above: Performed By: #### C BC #### [facility] [address] [address] [address] Hector Rubio Hematocrit (Bld) [Volume fraction] 38.9 % Normal 36.0-48.0 [facility] Comment on above: Performed By: #### C BC #### [facility] [address] [address] [address] Hector Rubio Hemoglobin (Bld) [Mass/Vol] 11.8 g/dL Critically low 12.0-16.0 [facility] Comment on above: Performed By: #### C BC #### [facility] [address] [address] [address] Hector Rubio IG # 0.02 10e3/ul Normal 0.00-0.03 [facility] Comment on above: Performed By: #### C BC #### [facility] [address] [place] [address] Dr. Hector Rubio IG % 0.3 % Normal 0.0-0.5 [facility] Comment on above: Performed By: #### C BC #### [facility] [address] [place] [address] Dr. Hector Rubio LYMPH # 1.0 103/ul Critically low 1.2-3.8 [facility] Comment on above: Performed By: #### C BC #### [facility] [address] [place] [address] Dr. Hector Rubio Lymphocytes/100 WBC (Bld) 12.6 % Critically low 20.5-60.0 [facility] Comment on above: Performed By: #### C BC #### [facility] [address] [place] [address] Dr. Hector Rubio MANUAL DIFF REQ NO Normal [facility] Comment on above: Performed By: #### C BC #### [facility] [address] [place] [address] Dr. Hector Rubio MCH (RBC) [Entitic mass] 29.0 pg Normal 26.7-34.0 [facility] Comment on above: Performed By: #### C BC #### [facility] [address] [place] [address] Dr. Hector Rubio MCHC (RBC) [Mass/Vol] 30.3 g/dL Normal 29.9-35.2 [facility] Comment on above: Performed By: #### C BC #### [facility] [address] [place] [address] Dr. Hector Rubio MCV (RBC) [Entitic vol] 95.6 fL Normal 81.0-99.0 [facility] Comment on above: Performed By: #### C BC #### [facility] [address] [place] [address] Dr. Hector Rubio MONO # 0.7 103/ul Normal 0.3-0.8 [facility] Comment on above: Performed By: #### C BC #### [facility] [address] [place] [address] Dr. Hector Rubio Monocytes/100 WBC (Bld) 9.0 % Normal 1.7-12.0 [facility] Comment on above: Performed By: #### C BC #### [facility] [address] [place] [address] Dr. Hector Rubio NEUT # 6.1 103/ul Normal 1.4-6.5 [facility] Comment on above: Performed By: #### C BC #### [facility] [address] [place] [address] Dr. Hector Rubio Neutrophils/100 WBC (Bld) 78.0 % Critically high 43.0-75.0 [facility] Comment on above: Performed By: #### C BC #### [facility] [address] [place] [address] Dr. Hector Rubio Platelet mean volume (Bld) [Entitic vol] 9.7 fL Normal 9.5-13.5 [facility] Comment on above: Performed By: #### C BC #### [facility] [address] [place] [address] Dr. Hector Rubio PLT 202 103/ul Normal 150-450 [facility] Comment on above: Performed By: #### C BC #### [facility] [address] [place] [address] Dr. Hector Rubio RBC 4.07 106/ul Critically low 4.20-5.40 [facility] Comment on above: Performed By: #### C BC #### [facility] [address] [place] [address] Dr. Hector Rubio WBC 7.8 103/ul Normal 4.0-11.0 [facility] Comment on above: Performed By: #### C BC #### [facility] [address] [place] [address] Dr. Hector Rubio Covid-19 PCR (CVDTB)on 07-01 SARS-CoV-2 (COVID-19) RNA SHLOMO+probe Ql (Unsp spec) Not detected Normal NOT DETECTED [facility] Comment on above: Result Comment: [...] for this test is supported by the Cyber Incident Responder of Health and Human Service's declaration that [...] used). Performed By: #### C VDTBH #### [facility] [address] [place] [address] Dr. Hector Rubio PROF 14(COMP METB)on 022 Albumin [Mass/Vol] 3.7 g/dL Normal 3.4-5.0 [facility] Comment on above: Performed By: #### C MADM, CMP, BNP #### [facility] [address] [place] [address] Dr. Hector Rubio Albumin/Globulin [Mass ratio] 0.9 {ratio} Normal [facility] Comment on above: Performed By: #### C MADM, CMP, BNP #### [facility] [address] [address] [address] Hector Rubio ALP [Catalytic activity/Vol] 90 U/L Normal 46-116 [facility] Comment on above: Performed By: #### C MADM, CMP, BNP #### [facility] [address] [address] [address] Hector Rubio ALT [Catalytic activity/Vol] 17 U/L Normal 14-59 [facility] Comment on above: Performed By: #### C MADM, CMP, BNP #### [facility] [address] [address] [address] Hector Rubio Anion gap [Moles/Vol] 7.8 mmol/L Normal [facility] Comment on above: Performed By: #### C MADM, CMP, BNP #### [facility] [address] [place] [address] Dr. Hector Rubio AST [Catalytic activity/Vol] 12 U/L Critically low 15-37 [facility] Comment on above: Performed By: #### C MADM, CMP, BNP #### [facility] [address] [place] [address] Dr. Hector Rubio Bilirubin [Mass/Vol] 0.5 mg/dL Normal 0.2-1.0 [facility] Comment on above: Performed By: #### C MADM, CMP, BNP #### [facility] [address] [place] [address] Dr. Hector Rubio Calcium [Mass/Vol] 9.1 mg/dL Normal 8.5-10.1 [facility] Comment on above: Performed By: #### C MADM, CMP, BNP #### [facility] [address] [place] [address] Dr. Hector Rubio Chloride [Moles/Vol] 102 mmol/L Normal 98-107 [facility] Comment on above: Performed By: #### C MADM, CMP, BNP #### [facility] [address] [place] [address] Dr. Hector Rubio CO2 [Moles/Vol] 33.1 mmol/L Critically high 21.0-32.0 [facility] Comment on above: Performed By: #### C MADM, CMP, BNP #### [facility] [address] [address] [address] Hector Rubio Creatinine [Mass/Vol] 0.89 mg/dL Normal 0.55-1.02 [facility] Comment on above: Performed By: #### C MADM, CMP, BNP #### [facility] [address] [address] [address] Hector Rubio EGFR-AF FINNISH >60 Normal >=60 [facility] Comment on above: Performed By: #### C MADM, CMP, BNP #### [facility] [address] [address] [address] Hector Rubio EGFR-NON AF FINNISH >60 Normal >=60 [facility] Comment on above: Performed By: #### C MADM, CMP, BNP #### [facility] [address] [address] [address] Hector Rubio Globulin (S) [Mass/Vol] 4.0 g/dL Normal [facility] Comment on above: Performed By: #### C MADM, CMP, BNP #### [facility] [address] [address] [address] Hector Rubio Glucose [Mass/Vol] 118 mg/dL Critically high 74-106 [facility] Comment on above: Performed By: #### C MADM, CMP, BNP #### [facility] [address] [address] [address] Hector Rubio Potassium [Moles/Vol] 3.9 mmol/L Normal 3.5-5.1 [facility] Comment on above: Performed By: #### C MADM, CMP, BNP #### [facility] [address] [address] [address] Hector Rubio Protein [Mass/Vol] 7.7 g/dL Normal 6.4-8.2 [facility] Comment on above: Performed By: #### C MADM, CMP, BNP #### [facility] [address] [place], [place] [address] Dr. Hector Rubio Sodium [Moles/Vol] 139 mmol/L Normal 136-145 [facility] Comment on above: Performed By: #### C MADM, CMP, BNP #### [facility] [address] [place], [place] [address] Dr. Hector Rubio Urea nitrogen [Mass/Vol] 29.0 mg/dL Critically high 7.0-18.0 [facility] Comment on above: Performed By: #### C MADM, CMP, BNP #### [facility] [address] [place], [place] [address] Dr. Hector Rubio Urea nitrogen/Creatinine [Mass ratio] 32.6 mg/mg Normal [facility] Comment on above: Performed By: #### C MADM, CMP, BNP #### [facility] [address] [address] [address] Hector Rubio XR CHEST 1 Von [...] by: GABRIELLE LIU Date: 2022-07-23 16:40 Normal [facility] MG MAMM DX 3D LT CADon 06-14 MG MAMM DX 3D LT CAD Patient: KAYLIE SALOMON Exam Date: 06/14/2022 : 1950 Gender:F Ordering : DR REGINALD ARAGON M.D. Admission #: [id number] Family : Order #: [id number] CLICK HERE TO VIEW EXAM CORRECTION Corrected [...] Treatments None Family Cancers None LOCATION: [facility] BREAST COMPOSITION: Scattered areas fibroglandular [...] M.D. on 09/18/2022 at 09:22 Normal [facility] CT Chest W contrast Juan Jose IMPRESSION: [...] any questions regarding this interpretation, please call [phone]. If you are unable to reach us at the number above, please feel free to contact [facility] at [phone]. DIVISION OF RADIOLOGY * * *Final Report* * * DATE OF EXAM: Aug 17 2021 10:00AM [facility] 0539 - CT CHEST W [...] kidney. The upper abdomen is otherwise unremarkable. Clinical Account Manager (topogram) images: No additional findings. DIVISION OF RADIOLOGY Provider, Alla Parminder [facility] - 08/17/2021 * * *Final Report* * * DATE OF EXAM: Aug 17 2021 10:00AM [facility] 0539 - CT CHEST W [...] kidney. The upper abdomen is otherwise unremarkable. Clinical Account Manager (topogram) images: No additional findings. IMPRESSION IMPRESSION: [...] any questions regarding this interpretation, please call [phone]. If you are unable to reach us at the number above, please feel free to contact [facility] at [phone]. [facility] Study observation (narrative) [facility] CT Chest W contrast IVOrdere d By: Ccf Provider on 08-17-2021 [facility] BASIC METABOLIC PANELon 05-0 Calcium [Mass/Vol] 9.3 mg/dL Normal 8.6-10.3 [facility] Comment on above: Order Comment: Yes: Add to Previous draw if able Performed By: #### 0 0121, 12759 #### [facility] [address] [place] [address], [place] Chloride [Moles/Vol] 98 mmol/L Normal 98-107 [facility] Comment on above: Order Comment: Yes: Add to Previous draw if able Performed By: #### 0 0121, 51071 #### [facility] [address] [place] [address], [place] CO2 [Moles/Vol] 34 mmol/L High 21-31 [facility] Comment on above: Order Comment: Yes: Add to Previous draw if able Performed By: #### 0 0121, 35695 #### [facility] [address] [place] [address], [place] Creatinine [Mass/Vol] 0.59 mg/dL Low 0.60-1.20 [facility] Comment on above: Order Comment: Yes: Add to Previous draw if able Performed By: #### 0 0121, 45125 #### [facility] [address] [place] [address], [place] GFR/1.73 sq M predicted among blacks MDRD (S/P/Bld) [Vol rate/Area] mL/min/{1.73_m2} Normal >60 [facility] Comment on above: Order Comment: Yes: Add to Previous draw if able Result Comment: Calc ulation may not be valid for patients over 70 years Performed By: #### 0 0121, 97099 #### [facility] [address] [place] [address], [facility] GFR/1.73 sq M predicted among non-blacks MDRD (S/P/Bld) [Vol rate/Area] mL/min/{1.73_m2} Normal >60 [facility] Comment on above: Order Comment: Yes: Add to Previous draw if able Result Comment: Calc ulation may not be valid for patients over 70 years Performed By: #### 0 0121, 94200 #### [facility] [address] [place] [address], [facility] Glucose [Mass/Vol] 256 mg/dL High 70-100 [facility] Comment on above: Order Comment: Yes: Add to Previous draw if able Performed By: #### 0 0121, 34039 #### [facility] [address] [place] [address], [facility] Potassium [Moles/Vol] 4.5 mmol/L Normal 3.5-5.1 [facility] Comment on above: Order Comment: Yes: Add to Previous draw if able Performed By: #### 0 0121, 63534 #### [facility] [address] [place] [address], [facility] Sodium [Moles/Vol] 139 mmol/L Normal 136-145 [facility] Comment on above: Order Comment: Yes: Add to Previous draw if able Performed By: #### 0 0121, 70667 #### [facility] [address] [place] [address], [facility] Urea nitrogen [Mass/Vol] 21 mg/dL Normal 7-25 [facility] Comment on above: Order Comment: Yes: Add to Previous draw if able Performed By: #### 0 0121, 33735 #### [facility] [address] [place] [address], [place] CBC W/DIFFon 02-02-2019 ABS BASOPHILS 0.0 10*3/uL Normal 0.0-0.2 [facility] Comment on above: Performed By: #### 0 012, 52711 #### [facility] [address] [facility] [place] [address], [facility] ABS IMM GRANS 0.1 10*3/uL Normal 0.0-0.2 [facility] Comment on above: Performed By: #### 0 0121, 06459 #### [facility] [address] [facility] [place] [address], [facility] ABS NEUTROPHILS 16.9 10*3/uL High 1.6-7.6 [facility] Comment on above: Performed By: #### 0 0121, 71732 #### [facility] [address] [place] [address], [facility] Basophils/100 WBC (Bld) 0.1 % Normal 0.0-1.0 [facility] Comment on above: Performed By: #### 0 012, 97705 #### [facility] [address] [place] [address], [facility] Eosinophils (Bld) [#/Vol] 0.0 10*3/uL Normal 0.0-0.5 [facility] Comment on above: Performed By: #### 0 0121, 82666 #### [facility] [address] [facility] [place] [address], [facility] Eosinophils/100 WBC (Bld) 0.0 % Normal 0.0-6.0 [facility] Comment on above: Performed By: #### 0 0121, 63033 #### [facility] [address] [place] [address], [facility] Erythrocyte distribution width (RBC) [Ratio] 14.3 % Normal 11.5-15.0 [facility] Comment on above: Performed By: #### 0 0121, 98194 #### [facility] [address] [facility] [place] [place] [address], [facility] Hematocrit (Bld) [Volume fraction] 37.3 % Normal 36.0-45.0 [facility] Comment on above: Performed By: #### 0 012, 97988 #### [facility] [address] [facility] [place] [address], [facility] Hemoglobin (Bld) [Mass/Vol] 11.6 g/dL Low 12.0-15.0 [facility] Comment on above: Performed By: #### 0 0121, 75117 #### [facility] [address] [facility] [place] [address], [facility] IMMATURE GRANS 0.4 % Normal 0.0-1.0 [facility] Comment on above: Performed By: #### 0 0121, 18747 #### [facility] [address] Lymphocytes (Bld) [#/Vol] 0.5 10*3/uL Low 1.2-4.0 [facility] Comment on above: Performed By: #### 0 012, 42846 #### [facility] [address] Lymphocytes/100 WBC (Bld) 2.5 % Low 20.0-45.0 [facility] Comment on above: Performed By: #### 0 0121, 07123 #### [facility] [address] [facility]. [address] MCH (RBC) [Entitic mass] 28.9 pg Normal 27.0-33.0 [facility] Comment on above: Performed By: #### 0 0121, 97506 #### [facility] [address] [facility] [place] [place] [address], [facility] MCHC (RBC) [Mass/Vol] 31.1 g/dL Low 32.0-35.0 [facility] Comment on above: Performed By: #### 0 0121, 25781 #### [facility] [address] [place] [address], [facility] MCV (RBC) [Entitic vol] 93.0 fL Normal 82.0-98.0 [facility] Comment on above: Performed By: #### 0 0121, 37548 #### [facility] [address] [facility] [place] [address], [facility] Monocytes (Bld) [#/Vol] 0.3 10*3/uL Normal 0.1-1.0 [facility] Comment on above: Performed By: #### 0 0121, [id number] #### [facility] [address] [facility] [place] [address], [facility] MONOS 1.5 % Low 5.0-12.0 [facility] Comment on above: Performed By: #### 0 0121, 60429 #### [facility] [address] [facility] [place] [place] [address], [facility] Neutrophils/100 WBC (Bld) 95.5 % High 40.0-72.0 [facility] Comment on above: Performed By: #### 0 0121, 86224 #### [facility] [address] [facility] [place] [address], [facility] Nucleated RBC/100 WBC (Bld) [Ratio] 0 % Normal 0-0 [facility] Comment on above: Performed By: #### 0 0121, 92889 #### [facility] [address] [facility] [place] [address], [facility] PLAT CNT 265 10*3/uL Normal 150-400 [facility] Comment on above: Performed By: #### 0 0121, 03569 #### [facility] [address] [facility] [place] [address], [facility] RBC (Bld) [#/Vol] 4.01 10*6/uL Normal 3.80-5.00 [facility] Comment on above: Performed By: #### 0 0121, 98189 #### [facility] [address] [facility] [place] [place] [address], [facility] WBC (Bld) [#/Vol] 17.67 10*3/uL High 4.00-10.60 [facility] Comment on above: Performed By: #### 0 0121, 93473 #### [facility] [address] [facility]. [address] POC GLUCOSE LABon 02-02-2019 Glucose [Mass/Vol] 215 mg/dL High 70-100 [facility] Comment on above: Performed By: #### 0 0121, 46074 #### [facility] [address] [facility]. [address] BNP (B-TYPE NATRIURETIC PEPT DARCI)on 02-01-2019 Natriuretic peptide B (Bld) [Mass/Vol] 423 pg/mL High 0-100 [facility] Comment on above: Order Comment: Yes: Add to Previous draw if able Result Comment: Give n the appropriate clinical setting a BNP result of >100 pg/mL indicates congestive heart failure. Performed By: #### 8 5123 #### [facility] [address] [facility]. [address] CBC W/DIFFon 02-01-2019 ABS BASOPHILS 0.0 10*3/uL Normal 0.0-0.2 [facility] Comment on above: Order Comment: Yes: Add to Previous draw if able Performed By: #### 5 0103 #### [facility] [address] [facility]. [address] ABS IMM GRANS 0.1 10*3/uL Normal 0.0-0.2 [facility] Comment on above: Order Comment: Yes: Add to Previous draw if able Performed By: #### 5 0103 #### [facility] [address] [facility] [place] [address], [facility] ABS NEUTROPHILS 12.2 10*3/uL High 1.6-7.6 [facility] Comment on above: Order Comment: Yes: Add to Previous draw if able Performed By: #### 5 0103 #### [facility] [address] [place] [address], [facility] Basophils/100 WBC (Bld) 0.2 % Normal 0.0-1.0 [facility] Comment on above: Order Comment: Yes: Add to Previous draw if able Performed By: #### 5 0103 #### [facility] [address] [place] [address], [place] Eosinophils (Bld) [#/Vol] 0.0 10*3/uL Normal 0.0-0.5 [facility] Comment on above: Order Comment: Yes: Add to Previous draw if able Performed By: #### 5 0103 #### [facility] [address] [place] [address], [facility] Eosinophils/100 WBC (Bld) 0.0 % Normal 0.0-6.0 [facility] Comment on above: Order Comment: Yes: Add to Previous draw if able Performed By: #### 5 0103 #### [facility] [address] [place] [address], [facility] Erythrocyte distribution width (RBC) [Ratio] 14.3 % Normal 11.5-15.0 [facility] Comment on above: Order Comment: Yes: Add to Previous draw if able Performed By: #### 5 0103 #### [facility] [address] [place] [address], [facility] Hematocrit (Bld) [Volume fraction] 39.9 % Normal 36.0-45.0 [facility] Comment on above: Order Comment: Yes: Add to Previous draw if able Performed By: #### 5 0103 #### [facility] [address] [place] [address], [place] Hemoglobin (Bld) [Mass/Vol] 11.8 g/dL Low 12.0-15.0 [facility] Comment on above: Order Comment: Yes: Add to Previous draw if able Performed By: #### 5 0103 #### [facility] [address] IMMATURE GRANS 0.4 % Normal 0.0-1.0 [facility] Comment on above: Order Comment: Yes: Add to Previous draw if able Performed By: #### 5 0103 #### [facility] [address] [facility] [place] [address], [facility] Lymphocytes (Bld) [#/Vol] 0.3 10*3/uL Low 1.2-4.0 [facility] Comment on above: Order Comment: Yes: Add to Previous draw if able Performed By: #### 5 0103 #### [facility] [address] [facility] [place] [address], [facility] Lymphocytes/100 WBC (Bld) 2.6 % Low 20.0-45.0 [facility] Comment on above: Order Comment: Yes: Add to Previous draw if able Performed By: #### 5 0103 #### [facility] [address] [facility] [place] [address], [facility] MCH (RBC) [Entitic mass] 28.6 pg Normal 27.0-33.0 [facility] Comment on above: Order Comment: Yes: Add to Previous draw if able Performed By: #### 5 0103 #### [facility] [address] [facility] [place] [address], [facility] MCHC (RBC) [Mass/Vol] 29.6 g/dL Low 32.0-35.0 [facility] Comment on above: Order Comment: Yes: Add to Previous draw if able Performed By: #### 5 0103 #### [facility] [address] [facility] [place] [address], [facility] MCV (RBC) [Entitic vol] 96.6 fL Normal 82.0-98.0 [facility] Comment on above: Order Comment: Yes: Add to Previous draw if able Performed By: #### 5 3 #### [facility] [address] [facility] [place] [address], [facility] Monocytes (Bld) [#/Vol] 0.1 10*3/uL Normal 0.1-1.0 [facility] Comment on above: Order Comment: Yes: Add to Previous draw if able Performed By: #### 5 0103 #### [facility] [address] [place] [address], [facility] MONOS 0.9 % Low 5.0-12.0 [facility] Comment on above: Order Comment: Yes: Add to Previous draw if able Performed By: #### 5 0103 #### [facility] [address] [place] [address], [facility] Neutrophils/100 WBC (Bld) 95.9 % High 40.0-72.0 [facility] Comment on above: Order Comment: Yes: Add to Previous draw if able Performed By: #### 5 0103 #### [facility] [address] [facility] [place] [address], [facility] Nucleated RBC/100 WBC (Bld) [Ratio] 0 % Normal 0-0 [facility] Comment on above: Order Comment: Yes: Add to Previous draw if able Performed By: #### 5 0103 #### [facility] [address] [facility] [place] [address], [facility] PLAT CNT 240 10*3/uL Normal 150-400 [facility] Comment on above: Order Comment: Yes: Add to Previous draw if able Performed By: #### 5 0103 #### [facility] [address] [facility] [place] [address], [facility] RBC (Bld) [#/Vol] 4.13 10*6/uL Normal 3.80-5.00 [facility] Comment on above: Order Comment: Yes: Add to Previous draw if able Performed By: #### 5 0103 #### [facility] [address] [place] [id number], [facility] WBC (Bld) [#/Vol] 12.76 10*3/uL High 4.00-10.60 [facility] Comment on above: Order Comment: Yes: Add to Previous draw if able Performed By: #### 5 0103 #### [facility] [address] [place] [address], [facility] COMP METABOLIC PANELon 02-01 Albumin [Mass/Vol] 4.1 g/dL Normal 3.5-5.7 [facility] Comment on above: Order Comment: Yes: Add to Previous draw if able Performed By: #### 0 0121, 40029 #### [facility] [address] [place] [address], [place] ALKALINE PHOSPH 70 IU/L Normal 34-104 [facility] Comment on above: Order Comment: Yes: Add to Previous draw if able Performed By: #### 0 0121, 20267 #### [facility] [address] [place] [address], [place] ALT [Catalytic activity/Vol] 14 U/L Normal 7-52 [facility] Comment on above: Order Comment: Yes: Add to Previous draw if able Performed By: #### 0 0121, 38662 #### [facility] [address] [place] [address], [place] AST [Catalytic activity/Vol] 16 U/L Normal 13-39 [facility] Comment on above: Order Comment: Yes: Add to Previous draw if able Performed By: #### 0 0121, 56179 #### [facility] [address] [place] [address], [place] Bilirubin [Mass/Vol] 0.5 mg/dL Normal 0.3-1.0 [facility] Comment on above: Order Comment: Yes: Add to Previous draw if able Performed By: #### 0 0121, 36518 #### [facility] [address] [place] [address], [place] Calcium [Mass/Vol] 9.0 mg/dL Normal 8.6-10.3 [facility] Comment on above: Order Comment: Yes: Add to Previous draw if able Performed By: #### 0 0121, 05510 #### [facility] [address] [place] [address], [place] Chloride [Moles/Vol] 98 mmol/L Normal 98-107 [facility] Comment on above: Order Comment: Yes: Add to Previous draw if able Performed By: #### 0 0121, 71749 #### [facility] [address] [place] [address], [place] CO2 [Moles/Vol] 31 mmol/L Normal 21-31 [facility] Comment on above: Order Comment: Yes: Add to Previous draw if able Performed By: #### 0 0121, 43622 #### [facility] [address] [place] [address], [place] Creatinine [Mass/Vol] 0.67 mg/dL Normal 0.60-1.20 [facility] Comment on above: Order Comment: Yes: Add to Previous draw if able Performed By: #### 0 0121, 89330 #### [facility] [address] [place] [address], [place] GFR/1.73 sq M predicted among blacks MDRD (S/P/Bld) [Vol rate/Area] mL/min/{1.73_m2} Normal >60 [facility] Comment on above: Order Comment: Yes: Add to Previous draw if able Result Comment: Calc ulation may not be valid for patients over 70 years Performed By: #### 0 0121, 59019 #### [facility] [address] [place] [address], [place] GFR/1.73 sq M predicted among non-blacks MDRD (S/P/Bld) [Vol rate/Area] mL/min/{1.73_m2} Normal >60 [facility] Comment on above: Order Comment: Yes: Add to Previous draw if able Result Comment: Calc ulation may not be valid for patients over 70 years Performed By: #### 0 0121, 93115 #### [facility] [address] [place] [address], [place] Glucose [Mass/Vol] 245 mg/dL High 70-100 [facility] Comment on above: Order Comment: Yes: Add to Previous draw if able Performed By: #### 0 0121, 21338 #### [facility] [address] [place] [address], [place] Potassium [Moles/Vol] 4.2 mmol/L Normal 3.5-5.1 [facility] Comment on above: Order Comment: Yes: Add to Previous draw if able Performed By: #### 0 0121, 18547 #### [facility] [address] [place] [address], [place] Protein [Mass/Vol] 7.1 g/dL Normal 6.0-8.3 [facility] Comment on above: Order Comment: Yes: Add to Previous draw if able Performed By: #### 0 0121, 00027 #### [facility] [address] [place] [address], [place] Sodium [Moles/Vol] 136 mmol/L Normal 136-145 [facility] Comment on above: Order Comment: Yes: Add to Previous draw if able Performed By: #### 0 0121, 31680 #### [facility] [address] [place] [address], [place] Urea nitrogen [Mass/Vol] 13 mg/dL Normal 7-25 [facility] Comment on above: Order Comment: Yes: Add to Previous draw if able Performed By: #### 0 0121, 85678 #### [facility] [address] [place] [address], [place] POC GLUCOSE LABon 02-01-2019 Glucose [Mass/Vol] 225 mg/dL High 70-100 [facility] Comment on above: Performed By: #### 0 0121, 78371 #### [facility] [address] [place] [address], [place] Glucose [Mass/Vol] 230 mg/dL High 70-100 [facility] Comment on above: Performed By: #### 0 0121, 27941 #### [facility] [address] [facility] [address], [facility] Glucose [Mass/Vol] 237 mg/dL High 70-100 [facility] Comment on above: Performed By: #### 8 5499 #### [facility] [address] [facility] [place] [address], [facility] Glucose [Mass/Vol] 247 mg/dL High 70-100 [facility] Comment on above: Performed By: #### 8 5499 #### [facility] [address] [place] [address], [facility] PORTABLE CHEST 1 VIEWon PORTABLE CHEST 1 VIEW [facility] Department of Radiology [address] [place] [address] ======== Patient Name: KAYLIE SALOMON : 1950 Sex: F Age: Race: White Pt. Location: [id number] Patient Status: I Ordered Date: 01/31/2019 11:45:00 [...] findings. Electronically signed by:Rachael Cardenas. Transcribed by: [email or web address], User Resident: ROSA STRANGE Electronically Signed by: RACHAEL CARDENAS @ 02/01/2019 12:39 PM I personally read this/these film(s) with this resident Normal [facility] Comment on above: Order Comment: R/O I nfiltrates PROCALCITONINon 02-01-2019 PROCALCITONIN 0.07 ng/mL Normal 0.00-0.10 [facility] Comment on above: Order Comment: Yes: Add [...] PCT<0.5ng/mL Performed By: #### 3 1488 #### [facility] [address] [place] [address], [facility] TROPONIN-Ion 02-01-2019 Troponin I.cardiac [Mass/Vol] 0.08 ng/mL High 0.00-0.04 [facility] Comment on above: Order Comment: No: D o not add to previous draw Result Comment: REFE RENCE RANGES: 0.00 - 0.04 ng/ml NORMAL 0.05 - 0.50 ng/ml INDETERMINATE > 0.50 ng/ml CONSISTENT WITH AN M.I. Performed By: #### 3 5200 #### [facility] [address] [place] [address], [facility] Troponin I.cardiac [Mass/Vol] 0.08 ng/mL High 0.00-0.04 [facility] Comment on above: Order Comment: No: D o not add to previous draw Result Comment: REFE RENCE RANGES: 0.00 - 0.04 ng/ml NORMAL 0.05 - 0.50 ng/ml INDETERMINATE > 0.50 ng/ml CONSISTENT WITH AN M.I. Performed By: #### 0 0121, 78966 #### [facility] [address] [place] [address], [facility] Cardiovascular Lab Reporton 01-16-2019 Cardiovascular Lab Report [facility] MR #: [id number] Department of Physician: Pepe Alexandre M.D. Division of Service Date: 01/16/2019 Cardiology Birthdate: 1950 Adult Cardiovascular Room #: [facility] [address] [place]. [place], [place] [address] Cardiovascular Laboratory Report FINAL IMPRESSION: 1. Nonobstructive [...] the right radial artery was obtained. A 6-Khmer glide sheath was inserted without difficulty. Bilateral [...] angled Glidewire. INDICATIONS: Troponin elevation, type 2 [id number]-NT-[id number] myocardial infarction. Electronically Signed by: Shemar Hudson M.D. 01/29/2019 08:36 A Shemar Hudson M.D. Date Dict: 01/16/201901:01 Criselda/Shemar Hudson M.D. Date Trans: 01/16/2019 02:39 P/kiran [id number] Normal [facility] SWEAT CHLORIDEon 12-03-2018 SWEAT CHLORIDE 36 mmol/L Abnormal [facility] Comment on above: Order Comment: Right [id number] Left arm [id number] Result Comment: REFE RENCE VALUES <=29 mMol/L CYSTIC FIBROSIS IS UNLIKELY 30-59 mMol/L INTERMEDIATE >=60 mMol/L INDICATIVE OF CYSTIC FIBROSIS NOTE: SWEAT CHLORIDE VALUES LESS THAN 30 mMol/L HAVE BEEN DOCUMENTED IN GENETICALLY PROVEN CF PATIENTS. CLINICAL CORRELATION IS NECESSARY. Performed By: #### S WCH1 #### [facility] [address] [place] [address] WT COLLECTED 0.177 grams Normal [facility] Comment on above: Order Comment: Right [id number] Left arm [id number] Performed By: #### S WCH1 #### [facility] [address] [place] [address] SWEAT CHLORIDE 42 mmol/L Abnormal [facility] Comment on above: Order Comment: Doroteo keith fax results to Doctor Charles Landeros MD. Phone: [phone] Result Comment: REFE RENCE VALUES <=29 mMol/L CYSTIC FIBROSIS IS UNLIKELY 30-59 mMol/L INTERMEDIATE >=60 mMol/L INDICATIVE OF CYSTIC FIBROSIS NOTE: SWEAT CHLORIDE VALUES LESS THAN 30 mMol/L HAVE BEEN DOCUMENTED IN GENETICALLY PROVEN CF PATIENTS. CLINICAL CORRELATION IS NECESSARY. Performed By: #### S WCH1 #### [facility] [address] [place] [address] WT COLLECTED 0.215 grams Normal [facility] Comment on above: Order Comment: Doroteo keith fax results to Doctor Charles Landeros MD. Phone: [phone] Performed By: #### S WCH1 #### [facility] [address] [place] [address] Vital Signs Date Time Vital Sign Value Performing Clinician Faci lity 07-30-2024 13:54-0400 Body height 167.7 cm Reginald Aragon MD Work Phone: [facility] 07-30-2024 13:54-0400 Body mass index (BMI) [Ratio] 40.64 kg/m2 Reginald Aragon MD Work Phone: [facility] 07-30-2024 13:54-0400 Body temperature 97.3 [degF] Reginald Aragon MD Work Phone: [facility] 07-30-2024 13:54-0400 Body weight 114.3 kg Reginald Aragon MD Work Phone: [facility] 07-30-2024 13:54-0400 Diastolic blood pressure 63 mm[Hg] Reginald Aragon MD Work Phone: [facility] 07-30-2024 13:54-0400 Heart rate 81 /min Reginald Aragon MD Work Phone: [facility] 07-30-2024 13:54-0400 Respiratory rate 18 /min Reginald Aragon MD Work Phone: [facility] 07-30-2024 13:54-0400 SaO2% (BldA) [Mass fraction] 94 % Reginald Aragon MD Work Phone: [facility] 07-30-2024 13:54-0400 Systolic blood pressure 96 mm[Hg] Reginald Aragon MD Work Phone: [facility] 03-14-2023 12:45-0400 Body height 167.7 cm Reginald Aragon MD Work Phone: [facility] 03-14-2023 12:45-0400 Body temperature 97.7 [degF] Reginald Aragon MD Work Phone: [facility] 03-14-2023 12:45-0400 Body weight 119.93 kg Reginald Aragon MD Work Phone: [facility] 03-14-2023 12:45-0400 Diastolic blood pressure 63 mm[Hg] Reginald Aragon MD Work Phone: [facility] 03-14-2023 12:45-0400 Heart rate 68 /min Reginald Aragon MD Work Phone: [facility] 03-14-2023 12:45-0400 Respiratory rate 16 /min Reginald Aragon MD Work Phone: [facility] 03-14-2023 12:45-0400 SaO2% (BldA) [Mass fraction] 97 % Reginald Aragon MD Work Phone: [facility] 03-14-2023 12:45-0400 Systolic blood pressure 114 mm[Hg] Reginald Aragon MD Work Phone: [facility] 09-13-2022 12:57-0500 Body height 167.7 cm Samantha Benitez APRN.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 Phone: [facility] 09-13-2022 12:57-0500 Body temperature 97.59 [degF] Samantha Benitez APRN.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 Phone: [facility] 09-13-2022 12:57-0500 Body weight 120.47 kg Samantha Benitez APRN.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 Phone: [facility] 09-13-2022 12:57-0500 Diastolic blood pressure 68 mm[Hg] Samantha Benitez APRN.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 Phone: [facility] 09-13-2022 12:57-0500 Heart rate 93 /min Samantha Benitez APRN.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 Phone: [facility] 09-13-2022 12:57-0500 Respiratory rate 16 /min Samantha Benitez [employer].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 Phone: [facility] 09-13-2022 12:57-0500 SaO2% (BldA) [Mass fraction] 100 % Samantha Benitez [employer].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 Phone: [facility] 09-13-2022 12:57-0500 Systolic blood pressure 120 mm[Hg] Samantha Benitez [employer].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 Phone: [facility] 03-14-2022 14:12-0400 Body height 167.7 cm Reginald Aragon MD Work Phone: [facility] 03-14-2022 14:12-0400 Body temperature 97.81 [degF] Reginald Aragon MD Work Phone: [facility] 03-14-2022 14:12-0400 Body weight 120.57 kg Reginald Aragon MD Work Phone: [facility] 03-14-2022 14:12-0400 Diastolic blood pressure 76 mm[Hg] Reginald Aragon MD Work Phone: [facility] 03-14-2022 14:12-0400 Heart rate 98 /min Reginald Aragon MD Work Phone: [facility] 03-14-2022 14:12-0400 Respiratory rate 16 /min Reginald Aragon MD Work Phone: [facility] 03-14-2022 14:12-0400 SaO2% (BldA) [Mass fraction] 95 % Reginald Aragon MD Work Phone: [facility] 03-14-2022 14:12-0400 Systolic blood pressure 114 mm[Hg] Reginald Aragon MD Work Phone: [facility] Encounters Encounter Date Encounter Type Care Provider Facility Start: 04-06-2025 ambulatory [place] [facility] Facility: [facility] Start: 03-04-2025 ambulatory [place] [facility] Facility: [facility] [place] Start: 10-06-2024 End: 10-06-2024 ambulatory [place] [facility] Facility:[facility] [place] Start: 09-09-2024 End: 09-09-2024 ambulatory [facility] Start: 08-04-2024 End: 08-04-2024 ambulatory [place] [facility] Facility:[facility] Start: 07-30-2024 End: 07-30-2024 Patient encounter procedure Reginald Aragon MD Work Phone: Hematology/Oncology Start: 07-30-2024 End: 07-30-2024 ambulatory Reginald Aragon MD Work Phone: Hematology/Oncology Comment on above: Malignant neoplasm o f overlapping sites of right breast in female, estrogen receptor negative (HCC) (Primary Dx) Start: 07-28-2024 ambulatory Inderjit Ly acility:[facility] Start: 06-25-2024 End: 06-25-2024 ambulatory [facility] Start: 06-17-2024 End: 06-17-2024 ambulatory [facility] Start: 05-20-2024 End: 05-20-2024 ambulatory [facility] Start: 05-13-2024 End: 05-13-2024 ambulatory [facility] Start: 05-06-2024 End: 05-06-2024 ambulatory [place] [facility] Start: 05-05-2024 End: 05-05-2024 ambulatory [facility] Start: 03-30-2024 End: 03-30-2024 ambulatory [place] Con Facility:[facility] Start: 03-05-2024 End: 03-05-2024 ambulatory [place] [facility] Facility:[facility] Start: 02-11-2024 End: 02-11-2024 ambulatory JENSEN CARTER Not Available Start: 02-11-2024 End: 02-11-2024 ambulatory [facility] Start: 01-09-2024 End: 01-09-2024 ambulatory [place] Con Facility:[facility] Start: 01-07-2024 End: 01-07-2024 ambulatory [facility] Start: 01-06-2024 End: 01-29-2024 ambulatory [facility] Start: 12-11-2023 End: 12-11-2023 ambulatory [facility] Start: 11-27-2023 End: 12-30-2023 ambulatory [facility] Start: 10-31-2023 ambulatory [facility] Start: 10-31-2023 End: 10-31-2023 ambulatory [facility] Start: 10-24-2023 End: 10-24-2023 ambulatory [facility] Start: 09-17-2023 End: 09-17-2023 ambulatory [facility] Start: 09-12-2023 Telephone encounter Carin Salgado Hematology/Oncology Comment on above: Orders Start: 09-12-2023 End: 09-12-2023 ambulatory REGINALD ARAGON Facility:[facility] Start: 06-07-2023 Telephone encounter Orly Zhao RN [...] Start: 09-13-2022 End: 09-13-2022 ambulatory Samantha Benitez [employer]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 Phone: Hematology/Oncology Comment on above: Malignant neoplasm o f overlapping sites of right breast in female, estrogen receptor negative (HCC) (Primary Dx); Iron deficiency anemia secondary to inadequate dietary iron intake Start: 09-13-2022 End: 09-13-2022 Patient encounter procedure Samantha Benitez APRN.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 Phone: [facility] Start: 08-14-2022 End: 08-15-[address] CHARLES LANDEROS Facility:[facility] Start: 07-23-2022 End: 07-23-2022 ambulatory MITCHEL WARREN Facility:[facility] Start: 07-16-2022 Refill Samantha Benitez [employer]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 Phone: Hematology/Oncology Comment on above: Refill [...] Evaluation and management of inpatient ARACELI SANDHU Facility:[facility] Start: 01-16-2019 End: 01-17-2019 Patient encounter procedure SHEMAR HUDSON Facility:[facility] Start: 12-03-2018 Patient encounter procedure Facility:[facility] Procedures Date Procedure Procedure Detail Performing Clinician Start: 04-13-2022 Lipid 1996 panel - S migdalia or Plasma Carin Ramos RN Start: 08-17-2021 Ct thorax w/contrast material Reginald Aragon MD Work Phone: Start: 05-27-2020 Adult depression screening assessment Reginald Aragon MD Work Phone: Plan of Treatment Date Care Activity Detail Author Start: 07-30-2027 Diabetes Screening Diabetes Screenin [facility] Start: 04-13-2027 Lipid panel Lipid Screening [facility] Start: 04-13-2027 [address] SCREEN [facility] Start: 12-15-2026 [address]EN LIPID SCREEN [facility] Start: 09-12-2026 Diabetes Screening Diabetes Screenin g [facility] Start: 03-14-2026 DIABETES SCREEN [facility] Start: 09-13-2025 DIABETES SCREEN [facility] Start: 03-14-2025 DIABETES SCREEN [facility] Start: 08-17-2024 DIABETES SCREEN [facility] Start: 07-30-2024 End: 07-30-2024 Follow-up encounter 07/30/2024 2:15 PM EDT Visit (SP) Office Hematology/Oncology [address] [place] [address] Reginald Aragon MD [address] [place] [address] [place] [address] 10 month follow up lab / left [...] Ag 27-29 [Units/volume] in Serum or Plasma [facility] Work Phone: Comment on above: Expected: 07/30/2024 , Expires: 10/29/2024 Start: 07-30-2024 End: 07-30-2024 Patient encounter procedure 07/30/2024 2:00 PM EDT Office Visit [facility] [address] [address] 10 month follow up lab / left detailed message about moving this appt from -. Asked her to call and confirm new day and time. Mailed new reminder to her home. [facility] Comment on above: 10 month follow up l ab / left detailed message about moving this appt from -. Asked her to call and confirm new day and time. Mailed new reminder to her home. Start: 05-31-2024 Covid-19 Vaccine ( season) Covid-[address] () [facility] Start: 05-31-2024 Influenza vaccination Influenza Vacc ine (#1) [facility] Start: 09-30-2023 Advance Directive Discussion Advance Directive Discussion [facility] Start: 05-31-2023 Influenza vaccination INFLUENZA (#1) [facility] Start: 03-14-2023 End: 05-14-2023 Cancer Ag 27-29 [Units/volume] in Serum or Plasma CA 27.29 BLOOD Lab Routine Malignant neoplasm of overlapping sites of right breast in female, estrogen receptor negative (HCC) Iron deficiency anemia secondary to inadequate dietary iron intake Expected: 03/14/2023, Expires: 05/14/2023 [facility] Work Phone: Comment on above: Expected: 03/14/2023 , Expires: 05/14/2023 Start: 03-14-2023 End: 05-14-2023 CBC W Auto Differential panel - Blood CBC + DIFF Lab Routine Malignant neoplasm of overlapping sites of right breast in female, estrogen receptor negative (HCC) Iron deficiency anemia secondary to inadequate dietary iron intake Expected: 03/14/2023, Expires: 05/14/2023 [facility] Work Phone: Comment on above: Expected: 03/14/2023 , Expires: 05/14/2023 Start: 03-14-2023 End: 05-14-2023 Comprehensive metabolic 2000 panel - Serum or Plasma COMP METABOLIC PANEL Lab Routine Malignant neoplasm of overlapping sites of right breast in female, estrogen receptor negative (HCC) Iron deficiency anemia secondary to inadequate dietary iron intake Expected: 03/14/2023, Expires: 05/14/2023 [facility] Work Phone: Comment on above: Expected: 03/14/2023 , Expires: 05/14/2023 Start: 01-04-2023 RSV Vaccine (1 - 1-d ose 75+ series) RSV Vaccine (1 - 1-dose 75+ series) [facility] Start: 09-30-2022 ADVANCE DIRECTIVE DISCUSSION ADVANCE DIRECTIVE DISCUSSION [facility] Start: 09-30-2022 DEPRESSION ASSESSMENT DEPRESSION ASS ESSMENT [facility] Start: 09-13-2022 End: 11-13-2022 Cancer Ag 27-29 [Units/volume] in Serum or Plasma [facility] Work Phone: Comment on above: Expected: 09/13/2022 , Expires: 11/13/2022 Start: 07-03-2022 COVID-19 VACCINE (5 - Booster for Moderna series) COVID-19 VACCINE (5 - Booster for Moderna series) [facility] Start: 07-03-2022 COVID-19 VACCINE (5 - Moderna series) COVID-19 VACCINE (5 - Moderna series) [facility] Start: 05-31-2022 Influenza vaccination C [facility] Start: 09-30-2021 ADVANCE DIRECTIVE DISCUSSION ADVANCE DIRECTIVE DISCUSSION [facility] Start: 09-30-2021 DEPRESSION ASSESSMENT DEPRESSION ASS ESSMENT [facility] Start: 05-27-2021 Adult depression screening assessment DEPRESSION SCREENING [facility] Start: 12-04-2015 SHINGRIX VACCINE (1 of 2) SHINGRIX VACCINE (1 of 2) [facility] Start: 12-04-2015 SHINGRIX VACCINE (2 of 3) SHINGRIX VACCINE (2 of 3) [facility] Start: 01-04-2013 BONE DENSITY BONE DENSITY [facility] Start: 01-04-2013 Screening for osteoporosis Bone Density Screening [facility] Start: 2008 RSV Vaccine (1 - 1-d ose 60+ series) RSV Vaccine (1 - 1-dose 60+ series) [facility] Start: 01-04-1993 COLOGUARD (FIT-DNA) COLOGUARD (FIT-D NA) [facility] Start: 01-04-[address] [facility] Start: 01-04-1993 COLORECTAL CANCER SCREENING COLORECTAL CANCER SCREENING [facility] Start: 01-04-[address] COLONOGRAPHY [facility] Start: 01-04-1993 FECAL OCCULT BLOOD FECAL OCCULT BLOO D [facility] Start: 01-04-1993 Screening for malign ant neoplasm of colon [facility] Start: 01-04-1993 SIGMOIDOSCOPY SIGMOIDOSCOPY Clepricillavioleta lambert [facility] Start: [address] [facility] Start: 01-04-[address] [facility] Start: 01-04-1966 Anxiety Screening Anxiety Screening [facility] Start: 01-04-1966 Depression Screening Depression Scre ening [facility] Start: 01-04-1966 HEPATITIS C SCREENING HEPATITIS C SC [facility] Start: 01-04-1966 Hepatitis C screening Hepatitis C [facility] Start: 01-04-1953 COVID-19 VACCINE (#1) COVID-19 VACCI NE (#1) [facility] Start: 1948 COVID-19 VACCINE (#1) COVID-19 VACCI NE (#1) [facility] End: 04-13-2023 Diagnostic mammography computer-aided detcj uni [facility] LT Radiology Routine Malignant neoplasm of overlapping sites of right breast in female, estrogen receptor negative (HCC) 1 Occurrences starting 03/14/2022 until 04/13/2023 [facility] Work Phone: Comment on above: 1 Occurrences starti ng 03/14/2022 until 04/13/2023 End: 07-06-2024 RAMBO DIAGNOSTIC LEFT [facility]NO[facility] LEFT Radiology Routine Malignant neoplasm of overlapping sites of right breast in female, estrogen receptor negative (HCC) 1 Occurrences starting 06/07/2023 until 07/06/2024 [facility] Work Phone: Comment on above: 1 Occurrences starti ng 06/07/2023 until 07/06/2024 [facility] Immunizations Immunization Date Immunization Notes Care Provider Fa cili 06-24-2024 COVID-19 vaccine, ag e 12+ yr (MODERNA) Reginald Aragon MD Work Phone: [facility] 06-24-2024 influenza, high dose seasonal, preservative-free Reginald Aragon MD Work Phone: [facility] 06-24-2024 pneumococcal conjuga te (PCV20) vaccine, 20 valent (PREVNAR 20) Reginald Aragon MD Work Phone: [facility] 06-24-2024 respiratory syncytia l virus (RSV) vaccine, adjuvanted (AREXVY) Reginald Aragon MD Work Phone: [facility] 07-25-2023 COVID-19 vaccine, ag e 12+ yr (MODERNA) Reginald Aragon MD Work Phone: [facility] 07-25-2023 influenza (HD-IIV4) vaccine, age 65+ yr, high dose, quadrivalent, PF (FLUZONE HIGH-DOSE) Reginald Aragon MD Work Phone: [facility] 07-25-2023 influenza virus vacc ine, unspecified formulation [facility]iology Work Phone: [facility] 07-11-2022 influenza (HD-IIV4) vaccine, age 65+ yr, high dose, quadrivalent, PF (FLUZONE HIGH-DOSE) Reginald Aragon MD Work Phone: [facility] 08-07-2021 influenza (HD-IIV4) vaccine, age 65+ yr, high dose, quadrivalent, PF (FLUZONE HIGH-DOSE) Reginald Aragon MD Work Phone: [facility] 11-24-2020 COVID-19 original vaccine, full dose, monovalent (MODERNA) Reginald Aragon MD Work Phone: [facility] 10-27-2020 COVID-19 original vaccine, full dose, monovalent (MODERNA) Reginald Aragon MD Work Phone: [facility] 07-07-2020 influenza (aIIV4) vaccine, age 65+ yr, quadrivalent, PF (FLUAD QUAD) Reginald Aragon MD Work Phone: [facility] 07-21-2019 influenza, high dose seasonal, preservative-free Reginald Aragon MD Work Phone: [facility] 07-21-2019 pneumococcal polysaccharide vaccine, 23 valernst Aragon MD Work Phone: [facility] 06-26-2018 influenza, high dose seasonal, preservative-free Reginald Aragon MD Work Phone: [facility] 06-26-2018 pneumococcal conjuga te vaccine, 13 valernst Aragon MD Work Phone: [facility] 07-17-2017 influenza, high dose seasonal, preservative-free Reginald Aragon MD Work Phone: [facility] 07-01-2017 influenza, injectabl e, quadrivalent, preservative free Reginald Aragon MD Work Phone: [facility] 10-09-2015 zoster vaccine, live Reginald roche MD Work Phone: [facility] 07-11-2015 influenza, seasonal, injectable, preservative free Reginald Aragon MD Work Phone: [facility] 07-11-2015 pneumococcal conjuga te vaccine, 13 valernst Aragon MD Work Phone: [facility] Payers Date Payer Category Payer Self-pay 2022 Medicaid MEDICAID [facility] MEDICAID [id number] 2022-Present [phone] [address] [place] [address] Medicaid [id number] 2018 Medicaid MEDICAID [facility] MEDICAID [id number] 2018-Present [phone] [address] [place] [address] Medicaid [id number] 1988 Medicare MEDICARE MEDICAR E A AND B [id number] 1988-Present [phone] [address] [address] [place] [address] Medicare [id number] 1988 Medicare [id number] 1959 Medicaid [id number] 1959 Medicare [id number] 1959 Self-pay [id number] 1948 Unknown [id number] [id number] 1948 Unknown [id number] 2.16.840.1.853087.3.579.2.647 1948 Unknown [id number] 2.16.840.1.468027.3.579.2.647 1948 Unknown [id number] 2.16.840.1.146777.3.579.2.593 1948 Unknown [id number] 2..840.1.174681.3.579.2.593 1948 Unknown [id number] 2.16.840.1.413584.3.579.2.593 1948 Unknown [id number] 2..840.1.063694.3.579.2.593 1948 Unknown [id number] 2.16.840.1.194923.3.579.2.1259 1948 Unknown [id number] 2.16.840.1.361485.3.579.2.1286 1948 Unknown [id number] 2.16.840.1.872239.3.579.2.1286 1948 Unknown [id number] 2.16.840.1.308161.3.579.2.1286 1948 Unknown [id number] 2.16.840.1.957110.3.579.2.1286 1948 Unknown [id number] 2.16.840.1.631788.3.579.2.1286 1948 Unknown [id number] 2.16.840.1.183513.3.579.2.1286 1948 Unknown [id number] 2.16.840.1.150235.3.579.2.727 1948 Unknown [id number] 2.16.840.1.738111.3.579.2.727 1948 Unknown [id number] 2.16.840.1.886273.3.579.2.727 1948 Unknown [id number] 2.16.840.1.238589.3.579.2.727 1948 Unknown [id number] 2.16.840.1.829747.3.579.2.727 1948 Unknown [id number] 2.16.840.1.664870.3.579.2.727 1948 Unknown [id number] 2.16.840.1.586696.3.579.2.727 Unknown [id number] 2.16.840.1.099097.3.579.2.531 Social History Date Type Detail Facility Start: 03-18-2019 End: 03-14-2023 Tobacco smoking status NHIS Never smoked tobacco [facility] Start: 03-18-2019 End: 03-14-2023 Tobacco use and exposure Smokeless tobacco non-user [facility] Start: 03-14-2022 End: 07-30-2024 Alcohol intake Lifetime non-drinker (finding) [facility] Start: 01-21-2020 History SDOH Alcohol Frequency 1 [facility] Start: 1950 Sex Assigned At Not on file C [facility] Start: 07-18-2021 End: 03-14-2022 Exposure to SARS-CoV-2 (event) Not sure [facility] Start: 01-21-2020 End: 03-14-2023 History of [address] function [facility] Start: 01-21-2020 End: 03-14-2023 Alcohol Use Disorder Identification Test - Consumption [AUDIT-C] [facility] How often to you hav e a drink containing alcohol? Never [facility] Average Number of Drinks Not on file [facility] NEGATED: Highlighted rowStart: JACKIEF History of tobacco use Passive smoker [facility] Clinical Notes 08-17-2021 to 09-09-2024 Reginald Aragon MD - 07/29/2024 9:26 AM EDTTelephone Encounter - Carin Ramos RN - 09/12/2023 2:58 PM ESTTelephone Encounter - Carin Ramos RN - 09/12/2023 1:38 PM EST Note Date & Type Note Facility 09-09-2024 Note Patient here for 3 m o follow up HFpEF, persistent afib, and hypertension. Had limited echo 2 weeks ago. She is down another 9# since last visit. BOSCH and LE edema continue to improve she says. She denies chest pain, palpitations, and lightheadedness/syncope. Also denies bleeding on Eliquis. Review of Systems Constitutional: Positive for weight loss (9# since 06/25/2024). Cardiovascular: Positive for dyspnea on exertion (improving) and leg swelling (improving). Musculoskeletal: Positive for joint pain. All other systems reviewed and are negative. [facility] 09-09-2024 Note Cardiovascular Medic [facility] SUBJECTIVE Kaylie Salomon is a 74 y.o. female here for follow-up. HPI PMHx: HFpEF, persistent a.fib, asthma, nonobstructive CAD, GERD, hypertension, MRDD, depression, breast Ca with radiation theray 2017 or 2019 09/09/2024 Patient here for 3 mo follow up HFpEF, persistent afib, and hypertension. Had limited echo 2 weeks ago. She is down another 9# since last visit. BOSCH and LE edema continue to improve she says. She denies chest pain, palpitations, and lightheadedness/syncope. Also denies bleeding on Eliquis. She avoids added salt. She may go over her fluid allowance more often than not. She is feeling well. 06/25/24 Patient here for 1 week follow [...] the heart failure team as well as Martir SEPULVEDA. Maria D Rahman CNP increased lasix to 40mg in the [...] right breast in female, estrogen receptor negative ([facility]/HCC) Atrial fibrillation status post cardioversion ([facility]/HCC) Sinusitis Type 1 diabetes mellitus ([facility]/HCC) Chronic heart failure with preserved ejection fraction ([facility]/HCC) Chronic respiratory failure ([facility]/HCC) Electrolyte and fluid disorder group home 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 steroid Morbid obesity ([facility]) Severe persistent asthma Paroxysmal A-fib ([facility]) Altered mental status, unspecified Hallucination Psychosis ([facility]) Past Medical History: Diagnosis Date Abnormal ECG Arrhythmia Asthma Atrial fibrillation ([facility]/HCC) Breast cancer ([facility]) RADIATION 2017 Coronary artery disease Depression Diabetes ([facility]/HCC) GERD (gastroesophageal reflux disease) Hypertension Myocardial infarct ([facility]) Obesity BMI 40.45 Family History Problem [...] seafood Sulfa (Sulfonamide Antibiotics) Other and Unknown Aycpmgef-Ebvurjnujq-Lmoyrraoy Rash Penicillins Rash ROS Constitutional: Positive for weight loss (9# since 06/25/2024). Cardiovascular: Positive for dyspnea on exertion ( (more content not included)... [facility] 07-29-2024 Note HNO ID: [id number] Author: REGINALD ARAGON MD Service: ? Author Type: Physician Type: Progress Notes Filed: 07/31/2024 06:27 Note Text: PATIENT NAME: Kaylie Salomon DATE: 07/30/2024 PRIMARY CARE PHYSICIAN: Dr. Landeros OTHER PHYSICIANS: Dr. Ramon Smith, Afua Davis XRT, Dr. Brian Gil (Cardiology [facility]) Portions of this encounter note have been [...] and CHF. She is currently managed by [facility] cardiology (Dr. Gil). Otherwise she has had [...] on 03/14/2023) ALLERGIES: Clarithromycin, Conjugated Estrogens, Neosporin [Etsqffyq-Luoktvuszv-Hgkpmfbhx], Paclitaxel, Peanut, Penicillins, and Sulfa (Sulfonamide Antibiotics) [...] frequency or incontinence. (more content not included)... [facility] 07-29-2024 History of Present illness Narrative PATIENT NAME: Kaylie Salomon DATE: 07/30/2024 PRIMARY CARE PHYSICIAN: Dr. Landeros OTHER PHYSICIANS: Dr. Ramon Smith, Afua FERRARO, Dr. Brian Gil (Cardiology [facility]) Portions of this encounter note have been [...] and CHF. She is currently managed by [facility] cardiology (Dr. Gil). Otherwise she has had [...] on 03/14/2023) ALLERGIES: Clarithromycin, Conjugated Estrogens, Neosporin [Hnkcjauu-Zyspkcsrbi-Mblgglahc], Paclitaxel, Peanut, Penicillins, and Sulfa (Sulfonamide Antibiotics) PAST MEDICAL HISTORY: PAST MEDICAL HISTORY Diagnosis Date AF (atrial fibrillation) ([facility]) Asthma Breast cancer ([facility]) 02/[address] 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 06-25-2024 Note Patient here for 1 w ione follow up HFpEF. She has lost 15# [...] All other systems reviewed and are negative. [facility] 06-25-2024 Note Cardiovascular Medic [facility] SUBJECTIVE Kaylie Salomon is a 74 y.o. [...] the heart failure team as well as Martir SEPULVEDA. Maria D Rahman CNP increased lasix to 40mg in the [...] respiratory failure (CMS/HCC) Electrolyte and fluid disorder group home 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 steroid Morbid obesity [...] seafood Sulfa (Sulfonamide Antibiotics) Other and Unknown Gbkzvtbv-Zwwearqbnk-Bbujjgwql Rash Penicillins Rash Review of Systems Constitutional: [...] Current Outpatient Medications: (more content not included)... [facility] 06-17-2024 Note This report has been cancelled. [facility] 06-17-2024 Note Cardiovascular Medic [facility] SUBJECTIVE Patient here for 1 [...] the heart failure team as well as Martir SEPULVEDA. Maria D Rahman CNP increased lasix to 40mg in the [...] right breast in female, estrogen receptor negative ([facility]/HCC) Atrial fibrillation status post cardioversion ([facility]) Sinusitis Type 1 diabetes mellitus ([facility]) Chronic heart failure with preserved ejection fraction ([facility]) Chronic respiratory failure ([facility]) Electrolyte and fluid disorder group home 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 steroid Morbid obesity ([facility]) Severe persistent asthma Paroxysmal A-fib ([facility]) Altered mental status, unspecified Hallucination Psychosis ([facility]) Past Medical History: Diagnosis Date Asthma Atrial fibrillation ([facility] Breast cancer ([facility]) RADIATION 2017 Coronary artery disease Depression Diabetes ([facility]) GERD (gastroesophageal reflux disease) Hypertension Myocardial infarct ([facility]) Obesity BMI 40.45 Family History Problem [...] seafood Sulfa (Sulfonamide Antibiotics) Other and Unknown Vxsvbzuo-Eccpfywijf-Qmkibvhkr Rash Penicillins Rash Review of Systems Constitutional: [...] 40 mg t (more content not included)... [facility] 06-02-2024 Note Caregiver called and states pt has increased leg swelling and weight gain despite resuming lasix 40 mg daily. Recommended to increase lasix to 40 mg po bid x 2-3 days prn and then return to 40 mg daily. Repeat BMP next week to assess renal function and electrolytes. Pt should have a clinic F/U upcoming within the next 1-3 weeks. Elif Wells [facility] Cardiology Available 7a-5pm via [employer] Chat Pager [phone] [facility] 05-13-2024 Note Pt is here for a one week follow up, with labs done. Review of Systems Cardiovascular: Positive for leg swelling. [facility] 05-13-2024 Note Cardiovascular Medic [facility] SUBJECTIVE Chief Complaint Patient presents with [...] is unsure about the a.fib ablation. Her sales support associate continue to discuss this with her. Denies [...] the heart failure team as well as Martir SEPULVEDA. Maria D Rahman CNP increased lasix to 40mg in the [...] respiratory failure (CMS/HCC) Electrolyte and fluid disorder group home 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 steroid Morbid obesity [...] seafood Sulfa (Sulfonamide Antibiotics) Other and Unknown Qujscnbj-Zfmgpbdkbz-Znifyqifq Rash Penicillins Rash Review of Systems Constitutional: [...] LAST DOSE 01/03/24, (more content not included)... [facility] 05-04-2024 Note Caregiver called off ice to [...] and repeat BMP Saturday or Saturday. Elif Wells [facility] Cardiology Available 7a-5pm via [employer] Chat Pager [phone] [facility] 02-25-2024 Note Orders to repeat BMP Will hold aldactone and losartan to 50 mg daily and decrease lasix to 40 mg daily from bid Elif BARLOW IN Cardiology Available 7a-5pm via [employer] Chat Pager [phone] [facility] 02-11-2024 Note IN Electrophysiology Consult Note Reason [...] the heart failure team as well as Martir SEPULVEDA. Maria D Rahman CNP increased lasix to 40mg in the [...] seafood Sulfa (Sulfonamide Antibiotics) Other and Unknown Pmccbcxh-Dirlqqtujp-Zynqrnoxo Rash Penicillins Rash Weight: 118kg Visit Vitals [...] at bedtime. spiron (more content not included)... [facility] 12-13-2023 Note Placed orders for A fib/flutter EPS/ablation per Dr Gil's recommendation Elif Wells [facility] Cardiology Available 7a-5pm via [employer] Chat Pager [phone] [facility] 12-11-2023 Note [facility]- II- currently euvolemic without exacerbation Continue GDMT- lipitor, farxiga, beta amber, aldactone Diuretic therapy- lasix Monitor daily weights, I&O, fluid restriction 1.5-2L/day, renal function and electrolytes- [facility] 12-11-2023 Note Hypertension is well controlled. Continue all meds- metoprolol, aldactone, losartan [facility] 12-11-2023 Note Patient here for fol low up cardioversion on 10/31/[address] Gil. She denies chest pain, SOB, palpitations, lightheadedness/syncope, and bleeding on Eliquis. Review of Systems Constitutional: Positive for malaise/fatigue. All other systems reviewed and are negative. [facility] 12-11-2023 Note [facility] CARDIOLOGY PROGR ESS NOTE [...] seafood Sulfa (Sulfonamide Antibiotics) Other and Unknown Uqccxacd-Ejyhdjmnpo-Djwklrsvf Rash Penicillins Rash Medications: Current Outpatient Medications [...] normal. Labs: 10/01 (more content not included)... [facility] 12-11-2023 Note ECG today- a flutter - rate controlled Remains on eliquis anticoagulation, amiodarone for rhythm control and metoprolol Will D/W Dr Gil regarding further intervention with possible EPS/Ablation [facility] 10-31-2023 Note Please forward these results to her PCP to address her thyroid function, mag is normal Thanks [facility] 10-31-2023 Note DIRECT CARDIOVERSION PROCEDURE NOTE Date: [...] consider ablation. Brian Gil MD Cardiac Electrophysiology [facility] 10-31-2023 Note Patient: Kaylie Salomon Procedure Information Date/Time: 10/31/23 0800 Procedure: Cardioversion - oct Location: [facility] / [facility] (Cath) Providers: Brian Gil MD Clinical information reviewed: Allergies Meds OB Status Physical Exam Airway Mallampati: II TM distance: >3 FB Neck ROM: full Cardiovascular Dental Pulmonary Abdominal Anesthesia Plan ASA 2 Anesthetic plan and risks discussed with patient and legal guardian. Use of blood products discussed with patient and legal guardian who. Additional Equipment Requests [facility] 09-17-2023 Note IN Electrophysiology Consult Note Reason [...] the heart failure team as well as Martir SEPULVEDA. Maria D Rahman CNP increased lasix to 40mg in the [...] seafood Sulfa (Sulfonamide Antibiotics) Other and Unknown Elkvuryc-Dkhfqagbyg-Vikimpjfs Rash Penicillins Rash Weight: 122kg Visit Vitals [...] Positive for malaise/fatig (more content not included)... [facility] 09-17-2023 Note Patient here for 1 m o follow up HFpEF, PAF, hypertension, and CAD. Maria D Rahman CNP increased lasix to 40mg in the [...] All other systems reviewed and are negative. [facility] 09-12-2023 Miscellaneous Notes Ordered faxed to Umm Ramos RN BRM/HM: Please sign pended order Orders sent to [facility] PH: [phone] Will notifiy Gricel, patient care, once signed Carin Ramos RN documented in this encounter [facility] 09-12-2023 Note HNO ID: [id number] Author: Reginald Aragon MD Service: ? Author Type: Physician Type: Progress Notes Filed: 09/12/2023 7:56 PM Note Text: PATIENT NAME: Kaylie Salomon DATE: 09/12/2023 PRIMARY CARE PHYSICIAN: Dr. Landeros OTHER PHYSICIANS: Dr. Ramon Smith, [facility] XRT Portions of this encounter note have [...] on 03/14/2023) ALLERGIES: Clarithromycin, Conjugated Estrogens, Neosporin [Hquojlxf-Pyfworxvbj-Ibiojdchd], Paclitaxel, Peanut, Penicillins, and Sulfa (Sulfonamide Antibiotics) PAST MEDICAL HISTORY: PAST MEDICAL HISTORY Diagnosis Date AF (atrial fibrillation) ([facility]) Asthma Breast cancer (HCC) 02/[address] Landeros COPD (chronic obstructive pulmonary disease) ([facility]) Edema Hyperlipidemia Hypertension OA (osteoarthritis of [...] 167.7 cm (5' (more content not included)... 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 She has not heard from anyone regarding scheduling of Mammogram at [place]. Order faxed to [facility] scheduling. She is aware to call if [...] pending order. PSS: Pt needs scheduled at [facility]. Thanks! Orly Fraga RN documented in this encounter [facility] 04-04-2023 Miscellaneous Notes Spoke w/ Penelope. Requests that we send pt's most recent lab results to Dr Landeros's office. Results from 03/[address] Landeros's office as requested. Chary Cornelius RN Voicemail message received from pt's sister, Penelope, regarding lab results. Call placed to sister. No answer. Message left requesting call back. Chary Cornelius RN documented in this encounter [facility] 03-14-2023 History of Present illness Narrative [...] once daily. 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 I will [...] Reginald Aragon MD documented in this encounter [facility] 09-13-2022 History of Present illness Narrative [...] once daily. ALLERGIES: Clarithromycin, Conjugated Estrogens, Neosporin [Rlbulzhu-Cioygczfbo-Gxzkwqgvh], Paclitaxel, Peanut, Penicillins, and Sulfa (Sulfonamide Antibiotics) [...] 253 RADIOLOGY/OTHER STUDIES: 06/14/2022 Left Diagnostic Mammogram ([facility]) Findings: Diagnostic category 2-benign finding: Left breast: No significant suspicious finding. Scattered benign-appearing nodules are present. No significant change has occurred. 08/17/2021 CT CHEST IMPRESSION: 1. Stable posttreatment changes, as described above. 2. Stable appearance of left lower lobe 5 mm nodule. No new or enlarging nodules are seen. 3. No evidence of bulky intrathoracic lymphadenopathy. 06/13/2021 Left Diagnostic Mammogram ([facility]) No significant suspicious finding. 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 Samantha Benitez APRN.CNP documented in this encounter [facility] 03-14-2022 History of Present illness Narrative [...] once daily. ALLERGIES: Clarithromycin, Conjugated Estrogens, Neosporin [Elorpldj-Wwsaxjvzzv-Otapoduvg], Paclitaxel, Peanut, Penicillins, and Sulfa (Sulfonamide Antibiotics) PAST MEDICAL HISTORY: PAST MEDICAL HISTORY Diagnosis Date AF (atrial fibrillation) ([facility]) Asthma Breast cancer ([facility]) 02/[address] Landeros COPD (chronic obstructive pulmonary disease) ([facility]) Edema Hyperlipidemia Hypertension OA (osteoarthritis of [...] bulky intrathoracic lymphadenopathy. 06/13/2021 Left Diagnostic Mammogram ([facility]) No significant suspicious finding. 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 08-17-2021 History of Present illness Narrative [...] 2021 10:20 AM documented in this encounter [facility] 08-17-2021 Nurse Note Radiology Service Progress [...] DATE: August 17, 2021 TIME: 9:26 AM [facility] 08-17-2021 Nurse Note Radiology Service Progress [...] TIME: 9:26 AM documented in this encounter [facility] Evaluation note Diagnosis Malignant neoplasm of [...] and blood-forming organs [facility] Malignant neoplasm of overlapping sites of right breast in female, estrogen receptor negative (HCC)- Primary [facility] Diagnosis Malignant neoplasm of overlapping sites of right breast in female, estrogen receptor negative (HCC)- Primary Hx of total mastectomy of right breast Personal history of surgery to other organs [facility] Diagnosis Lung nodules Other nonspecific abnormal finding of lung field [facility] Diagnosis Malignant neoplasm of overlapping sites of right breast in female, estrogen receptor negative (HCC)- Primary [facility] Diagnostic Procedure Only (Routine) - Pending Review Specialty Diagnoses / Procedures Referred By Contac t Referred To Contact [facility] Diagnoses Malignant neoplasm of overlapping sites of right breast in female, estrogen receptor negative (HCC) Procedures RAMBO DIAGNOSTIC LT DIAGNOSTIC MAMMOGRAPHY COMPUTER-AIDED DETCJ Reginald Casas MD [address] [place] [address] [place] [address] [facility] [address] [place] [address] Referral ID Status Reason Start Date Expiration Date Visits Requested Visits Authorized [id number] Pending Review Auto-Generat ed Referral 03/14/2022 04/13/[address] [facility] Diagnostic Procedure Only (Routine) - Pending Review Specialty Diagnoses / Procedures Referred By Contac t Referred To Contact [facility] Diagnoses Malignant neoplasm of overlapping sites of right breast in female, estrogen receptor negative (HCC) Procedures RAMBO DIAGNOSTIC LEFT DIAGNOSTIC MAMMOGRAPHY COMPUTER-AIDED DETCJ Shayy Villatoro PA-C [address] [place] [address] [place] [address] [facility] [address] [place] [address] Referral ID Status Reason Start Date Expiration Date Visits Requested Visits Authorized [id number] Pending Review Auto-Generat ed Referral 06/07/2023 07/06/[address] [facility] Summary Purpose Family History No Family [...] Records Found Hospital Course Note MR#: [id number] [facility] Pt. Name: Kaylie Salomon Admitted: 01/31/2019 Discharged: 02/02/2019 Date of : 1950 Physician: Tramaine Sandhu MD DISCHARGE SUMMARY PRIMARY CARE PHYSICIAN: No PCP. CONSULTING SERVICE: None. ADMITTING DIAGNOSES: 1. Msyws-uy-pcquoxa hypercapnic hypoxic respiratory failure. 2. Atrial fibrillation with rapid ventricular response. 3. Moderate persistent asthma with exacerbation. 4. Productive cough. DISCHARGE DIAGNOSES: 1. Yckll-ta-xnmhems hypoxemic/hypercapnic respiratory failure. 2. Moderate persistent asthma [...] BREAST PROSTHESIS, MASTECTOMY BRA Reginald Aragon MD [address] [place] [address] [place] [address] Referral ID Status Reason Start Date Expiration Date V isits Requested Visits Authorized [id number] Closed Auto-Generate d Referral 09/12/2023 09/12/2024 1 1 Additional Source Comments INFORMATION SOURCE (unrecogn ized section and content) DATE CREATED AUTHOR 12/05/2018 [facility] DATE CREATED AUTHOR AUTHOR'S ORGANIZ ATION 05/13/2019 [facility] DATE CREATED AUTHOR AUTHOR'S ORGANIZ ATION 09/21/2022 [facility] DATE CREATED AUTHOR AUTHOR'S ORGANIZ ATION 02/13/2024 [facility] DATE CREATED AUTHOR AUTHOR'S ORGANIZ ATION 05/22/[address] [facility] DATE CREATED AUTHOR AUTHOR'S ORGANIZ ATION 07/29/2024 [facility] DATE CREATED AUTHOR AUTHOR'S ORGANIZ ATION 08/01/2024 [facility] DATE CREATED AUTHOR AUTHOR'S ORGANIZ ATION 09/12/2024 [facility] DATE CREATED AUTHOR AUTHOR'S ORGANIZ ATION 10/12/2024 Cozad Maik [facility] Source Comments (unrecognize d section and content) In the event this informatio n is protected by the Federal Confidentiality of Alcohol and Drug Abuse Patient Records regulations: The Federal rules restrict any use of the information to criminally investigate or prosecute any alcohol or drug abuse patient.[facility] the event this information is protected by the Federal Confidentiality of Alcohol and Drug Abuse Patient Records regulations: The Federal rules restrict any use of the information to criminally investigate or prosecute any alcohol or drug abuse patient.[facility] the event this information is protected by the Federal Confidentiality of Alcohol and Drug Abuse Patient Records regulations: The Federal rules restrict any use of the information to criminally investigate or prosecute any alcohol or drug abuse patient.[facility] the event this information is protected by the Federal Confidentiality of Alcohol and Drug Abuse Patient Records regulations: The Federal rules restrict any use of the information to criminally investigate or prosecute any alcohol or drug abuse patient.[facility] the event this information is protected by the Federal Confidentiality of Alcohol and Drug Abuse Patient Records regulations: The Federal rules restrict any use of the information to criminally investigate or prosecute any alcohol or drug abuse patient.[facility] the event this information is protected by the Federal Confidentiality of Alcohol and Drug Abuse Patient Records regulations: The Federal rules restrict any use of the information to criminally investigate or prosecute any alcohol or drug abuse patient.[facility] the event this information is protected by the Federal Confidentiality of Alcohol and Drug Abuse Patient Records regulations: The Federal rules restrict any use of the information to criminally investigate or prosecute any alcohol or drug abuse patient.[facility] the event this information is protected by the Federal Confidentiality of Alcohol and Drug Abuse Patient Records regulations: The Federal rules restrict any use of the information to criminally investigate or prosecute any alcohol or drug abuse patient.[facility] the event this information is protected by the Federal Confidentiality of Alcohol and Drug Abuse Patient Records regulations: The Federal rules restrict any use of the information to criminally investigate or prosecute any alcohol or drug abuse patient.[facility] the event this information is protected by the Federal Confidentiality of Alcohol and Drug Abuse Patient Records regulations: The Federal rules restrict any use of the information to criminally investigate or prosecute any alcohol or drug abuse patient.[facility] Reason for Visit (unrecogniz ed section and content) Reason Comments Breast Cancer 6 month follow up Reason Comments Refill Request Reason Comments Breast Cancer Follow up Reason Comments Breast Cancer 1 year follow up Reason Comments Results Reason Comments Orders Reason Comments Radiology CT Care Teams (unrecognized sec tion and content) Psychiatric Registered Nurse Relationship Specialty Start Date End Date Charles Landeros MD [address] [place] [address] PCP - General Family Practice 03/11/19 Samantha Benitez, [employer].[address] [place] [address] Physician Cut Out Worker Hematology/Oncology 04/27/19 Reginald Aragon MD [address] [place] [place] [address] Physician Hematology/Oncology 12/07/19 Psychiatric Registered Nurse Relationship Specialty Start Date End Date Charles Landeros MD [address] [facility] [address] PCP - General Family Medicine 03/11/19 Samantha Benitez, [employer].NUCLEAR SUPERVISING OPERATOR [address] [place] [place] [address] Physician Cut Out Worker Hematology/Oncology 04/27/19 Reginald Aragon MD [address] [place] [address] Physician Hematology/Oncology 12/07/19 Psychiatric Registered Nurse Relationship Specialty Start Date End Date Charles Landeros MD [address] [place] [address] PCP - General Family Medicine 03/11/19 Samantha Benitez, [employer].NUCLEAR SUPERVISING OPERATOR [address] [place] [place] [address] Physician Cut Out Worker Hematology/Oncology 04/27/19 Reginald Aragon MD [address] [place] [address] Physician Hematology/Oncology 12/07/19 Psychiatric Registered Nurse Relationship Specialty Start Date End Date Charles Landeros MD [address] [place] [address] PCP - General Family Medicine 03/11/19 Samantha Benitez, [employer].NUCLEAR SUPERVISING OPERATOR [address] [place] [place] [address] Physician Cut Out Worker Hematology/Oncology 04/27/19 Reginald Aragon MD [address] [place] [place] [address] Physician Hematology/Oncology 12/07/19 Psychiatric Registered Nurse Relationship Specialty Start Date End Date Charles Landeros MD [address] [facility] [address] PCP - General Family Medicine 03/11/19 Samantha Benitez, [employer].NUCLEAR SUPERVISING OPERATOR [address] [place] [place] [address] Physician Cut Out Worker Hematology/Oncology 04/27/19 Reginald Aragon MD [address] [place] [address] Physician Hematology/Oncology 12/07/19 Psychiatric Registered Nurse Relationship Specialty Start Date End Date Charles Landeros MD [address] [place] [address] PCP - General Family Medicine 03/11/19 Samantha Benitez, [employer].NUCLEAR SUPERVISING OPERATOR [address] [place] [place] [address] Physician Cut Out Worker Hematology/Oncology 04/27/19 Reginald Aragon MD [address] [place] [address] Physician Hematology/Oncology 12/07/19 Psychiatric Registered Nurse Relationship Specialty Start Date End Date Charles Landeros MD [address] [place] [address] PCP - General Family Medicine 03/11/19 Samantha Benitez, [employer].NUCLEAR SUPERVISING OPERATOR [address] [place] [address] Physician Cut Out Worker Hematology/Oncology 04/27/19 Reginald Aragon MD [address] [place] [address] Physician Hematology/Oncology 12/07/19 Psychiatric Registered Nurse Relationship Specialty Start Date End Date Charles Landeros MD [address] [place] [address] PCP - General Family Medicine 03/11/19 Samantha Benitez, [employer].NUCLEAR SUPERVISING OPERATOR [address] [facility] [place] [address] Physician Cut Out Worker Hematology/Oncology 04/27/19 Reginald Aragon MD [address] [place] [address] [place] [address] Physician Hematology/Oncology 12/07/19 Psychiatric Registered Nurse Relationship Specialty Start Date End Date Charles Landeros MD [address] [place] [address] PCP - General Family Medicine 03/11/19 Samantha Benitez, [employer].NUCLEAR SUPERVISING OPERATOR [address] [facility] [place] [address] Physician Cut Out Worker Hematology/Oncology 04/27/19 Reginald Aragon MD [address] [place] [address] [place] [address] Physician Hematology/Oncology 12/07/19 FOR RECORDS PERTAINING TO [...] BE BASED ON THE PRIMARY CLINICAL RECORDS. [facility]. provides no warranty or guarantee of the accuracy or completeness of information in this document.
[2024-10-28 12:35] LABS: Estimated Average Glucose 148 mg/dL; Glycohemoglobin A1C 6.8 % (4.5-6.2)
[2024-10-28 12:43] LABS: Chol HDL Ratio 1.5; Cholesterol 130 mg/dL (<=200); HDL Cholesterol 86 mg/dL (40-60); Thyroid Stimulating Hormone 5.493 uIU/mL (0.358-3.740); Triglycerides 52 mg/dL (<=150); VLDL CHOLESTEROL 10.4 mg/dL
== END 2024-10-28 11:48 | disposition home or self-care (01) ==
LOC: LAB 11:55
PROVIDERS: PCP Nurse Practitioner; Visit Provider Nurse Practitioner
DX: Z00.00 Encounter for general adult medical examination without abnormal findings (principal); E78.5 Hyperlipidemia, unspecified; E11.8 Type 2 diabetes mellitus with unspecified complications
CPT/HCPCS: 36415; 80061; 83036; 84443

== ENCOUNTER 2025-02-24 13:41 | Outpatient (OUT) | payer MEDICARE, MEDICAID, SELFPAY ==
--- OUTSIDE RECORDS SUMMARY | 2024-12-28 09:25 | XMS_ITS | Continuity of Care Document ---
Author Organization [facility] Address [address] [place] [address] Phone Care Team Providers Care Cylinder Head Assembler Name Role Phone Aouthmanjoe DDS, Ximena Unavailable Unavailabl e Allergies, Adverse Reactions, Alerts Substance Reaction Status Criticality Sulfa (Sulfonamide Antibiotics) Active No Information PENICILLIN Active No Information peanut Active No Information paclitaxel Active No Information polymyxin B Active No Information NEOMYCIN SULFATE Active No Informat ion BACITRACIN ZINC Active No Informati on bacitracin Active No Information estrogens, conjugated Active No Inf ormation clarithromycin Active No Informatio n Medications Medication Instructions Dosage Effective Dates (start - stop) Status Comments Adults 50 Plus 0.4 mg-300 mcg-250 mcg tablet as needed - Active Proair Digihaler 90 mcg/actuation aerosol powder breath act, sensor inhale 2 puff by inhalation route every 4 - 6 hours as needed - Active metoprolol tartrate 50 mg tablet take 1 tablet by oral route 2 times every day with meals 50 MG - Active ondansetron [address] 1 tablet by translingual route 2 times every day on top of the tongue where it will dissolve, then swallow 8 MG - Active pantoprazole DR 40 mg granules delayed-release for susp in packet take 1 packet by oral route every day mixed in 1 teaspoonful of applesauce or apple juice 40 MG - Active Compazine 10 mg tablet take 1 tablet by oral route 3 times every day 10 MG - Active silver sulfadiazine 1 % topical cream apply by topical route 2 times every day a 1/16 inch (1.5 mm) thick layer to entire burn area 0.00 - Active Women's Multivitamin 18 mg-400 mcg-500 mg-50 mcg tablet as needed - Active acetaminophen 500 mg tablet take 2 tablet by oral route every 6 hours as needed 1000 MG - Active Advair Diskus 500 mcg-50 mcg/dose powder for inhalation inhale 1 puff by inhalation route 2 times every day approximately 12 hours apart at the same times each day 1.00 puff - Active Proair Digihaler 90 mcg/actuation aerosol powder breath act, sensor inhale 2 puff by inhalation route every 4 - 6 hours as needed - Active atorvastatin 40 mg tablet take 1 tablet by oral route every day 40 MG - Active Eliquis 5 mg tablet take 1 tablet by oral route 2 times every day 5 MG - Active Farxiga 5 mg tablet take 1 tablet by oral route every day in the morning 5 MG - Active Fasenra Pen 30 mg/mL subcutaneous auto-injector inject (30MG) by subcutaneous route every 8 weeks in the abdomen, thigh, or upper arm 30 MG - Active Flonase Allergy Relief 50 mcg/actuation nasal spray,suspension spray 1 - 2 spray by intranasal route every day in each nostril as needed 50-100 MCG - Active furosemide 20 mg tablet take 1 tablet by oral route every day 20 MG - Active ipratropium 0.5 mg-albuterol 3 mg (2.5 mg base)/3 mL nebulization soln inhale 3 milliliter by nebulization route 4 times every day 3.00 milliliter - Active Claritin 10 mg tablet take 1 tablet by oral route every day 10 MG - Active Cozaar 100 mg tablet take 1 tablet by oral route every day 100 MG - Active metformin 500 mg tablet take 1 tablet by oral route 2 times every day with morning and evening meals 500 MG - Active Lopressor 50 mg tablet take 1 tablet by oral route 2 times every day with meals 50 MG - Active montelukast 10 mg tablet take 1 tablet by oral route every day in the evening 10 MG - Active Nystop 100,000 unit/gram topical powder apply by topical route 2 times every day to the affected area(s) 0.00 - Active Zofran 4 mg tablet take 2 tablet by oral route 2 times every day - Active Protonix 40 mg granules delayed-release packet take 1 packet by oral route every day mixed in 1 teaspoonful of applesauce or apple juice 40 MG - Active potassium chloride ER 20 mEq tablet,extended release take 1 tablet by oral route every day with food 20 MEQ - Active prednisone 10 mg tablet take 1 tablet by oral route every day 10 MG - Active sertraline 50 mg tablet take 1 tablet by oral route every day 50 MG - Active Spiriva Respimat 1.25 mcg/actuation solution for inhalation inhale 2 puff by inhalation route every day 2.5 MCG - Active Vitamin D3 50 mcg (2,000 unit) capsule - Active Procedures Procedure Date Resin-Based Composite-Two Surfaces, Ante rior Phase 1 Treatment Plan Completed 2022 Resin-Based Composite-Two Surfaces, Ante rior Low Risk 0-30% Low Risk 0-30% Ext, Erupt Tth/Expsd Root-Elev &/Or Forc eps Remvl Void Prophylaxis-Adult Periodic Oral Evaluation-Established Pat ient Sealant Exempt Panoramic Radiographic Image Comprehensive Oral Eval-New Or Establish ed Patient Nutritional Counseling For Control Of De ntal Dis Oral Hygiene Instructions Sealant Exempt Phase 1 Treatment Plan Completed 2020 Prophylaxis-Adult Caries risk assessment & documentation, high risk Intraoral-Periapical First Radiographic Image Intraoral-Periapical Each Addl Radiograp hic Image Advance Directives Directive Yes / No Effective Date File Name No Information Encounters Encounter Description Practice Location Reason(s) For Visit Diagnoses Date Provider Providers Copied on Encounter [facility], [address], [place], [place], [id number], [place] tel:[phone] [facility] No Information Nov-3 - 5 Aouthmany Ximena. [address], [place], [place], [id number], [place]. tel:[phone] [facility], [address], [place], [place], [id number], [place] tel:[phone] [facility] Dental caries, unspecified Dec-0 - 3 Aouthmany Ximena. [address], [place], [place], [id number], [place]. tel:[phone] [facility], [address] [place], [place], [id number], [place] tel:[phone] [facility] Dental caries, unspecified Sep-0 3 Aouthmany Ximena. [address], [place], [place], [id number], [place]. tel:[phone] [facility], [address] [place], [place], [id number], [place] tel:[phone] [facility] No Information 0 - 3 Aouthleony Ximena. [address], [place], [place], [id number], [place]. tel:[phone] [facility], [address] [place], [place], [id number], [place] tel:[phone] [facility] Deposits [accretions] on teeth Mar-0 3 Aouthmany Ximena. [address], [place], [place], [id number], [place]. tel:[phone] [facility], [address] [place], [place], [id number], [place] tel:[phone] [facility] Encounter for dental examination and cleaning with abnormal findingsDental caries, unspecified Miguel-2 3- 3 Aouthmany Ximena. [address], [place], [place], [id number], [place]. tel:[phone] [facility], [address], [place], [place], [id number], [place] tel:[phone] [facility] No Information No Information Family History Family Member Type Diagnosis Age At Onset Problem (finding) Family history of Diabe mansi Problem (finding) Family history of Aller gies Problem (finding) Family history of CVA ( Stroke) Problem (finding) Family history of Osteo arthritis Problem (finding) Family history of Asthm a Payers Payer name Insurance type Covered democrat ID Authoriza tion(s) D Medicaid [facility] [id number] Social History Type Description Quantity Date Captured Comments Sex Female Smoking Status No Information Sexual Orientation Straight or heterosexual Gender Identity Female Chief Complaint And Reason For Visit No Information Reason For Referral Reason For Referral No Information Plan Of Treatment Date Type Action Status Goal Pneumococcal vaccine. Due on due Goal BMI Plan if not WNL. Due on due Goal Td vaccine. Due on due Goal Lipid panel. Due on 023 due Goal Influenza vaccine. Due on due Goal Abdomen Ultrasound; Complete . Due on due Goal Hepatitis C screening. Due o n due Goal Zoster vaccine (). Due on due Goal FOBT. Due on due Goal Depression screening. Due on due Goal Colonoscopy. Due on 023 due Goal DEXA scan. Due on due Goal Cologuard. Due on [address] Chest, low do se for lung screen, WITHOUT contrast. Due on due Goal CAGE Alcohol Screening. Due on due Goal Tdap. Due on due Goal CAGE Alcohol Screening. Due on due Goal Tdap. Due on due Goal BMI Plan if not WNL. Due on due Goal Td vaccine. Due on due Goal Pneumococcal vaccine. Due on due Goal Lipid panel. Due on due Goal Influenza vaccine. Due on due Goal Advanced Care Planning. Due on due Goal Abdomen Ultrasound; Complete . Due on due Goal Hepatitis C screening. Due o n due Goal Zoster vaccine (). Due on due Goal CT-Colonography. Due on due Goal FIT. Due on due Goal FIT-DNA. Due on due Goal Mammogram. Due on due Goal Dental exam. Due on due Goal Wellness Physical Exam. Due on due Goal FOBT. Due on due Goal Depression screening. Due on due Goal Colonoscopy. Due on due Goal DEXA scan. Due on due Appointment 75[address] [facility] BOOK[employer] History Of Present Illness Encounter Date Complaint History Of Prese nt Illness No Information Functional Status Date Functional Assessmen t No Information Instructions Date Instruction Additional Infor mation No Information Assessments Type Assessment Date No Information Patient Care Teams Name Effective Dates (start - stop) Status Members No Information
--- OUTSIDE RECORDS SUMMARY | 2025-02-24 13:48 | XMS_ITS | Clinical Summary ---
Author Organization [facility] Address [address] [place] [address] Care Team Providers Care Nuclear Fuels Reclamation Engineer Name Role Phone Ishan Reyez MD Primary Care Provider [phone] Allergies Active Allergy Reactions Criticality Noted Date Comments Bacitracin 04/25/2023 Bromelains 04/25/2023 Clarithromycin Other,Unknown 01/27/2010 Conjugated Estrogens Unknown 01/27/2010 Estrogens, Conjugated 04/25/2023 Neomycin Sulfate 04/25/2023 Eovsfgef-Cbffvktgvn-Zwweexr in Rash Low 05/06/2019 Paclitaxel Other 08/24/2019 Numbness,tingling and elevated blood pressure Peanut Anaphylaxis High 05/06/2019 Penicillins Rash Low 05/06/2019 Pineapple 05/07/2019 Polymyxin B 04/25/2023 Shrimp 05/07/2019 All seafood Sulfa (Sulfonamide Antibiotics) Other,Unknown 01/27/2010 Medications Medication Sig Dispensed Refills Start Date End Date Status albuterol 90 mcg/actuation inhaler Inhale 2 puffs in the morning, at noon, and at bedtime. Active apixaban (Eliquis) 5 mg tablet Take 1 tablet by mouth in the morning and at bedtime. Active atorvastatin (Lipitor) 40 mg tablet Take 1 tablet by mouth at bedtime. Active benralizumab (Fasenra Pen) 30 mg/mL auto-injector EVERY 8 WEEKS LAST DOSE 01/03/24 02/21/2021 Active loratadine (Claritin) 10 mg tablet Take 1 tablet by mouth in the morning. Active losartan (Cozaar) 100 mg tablet Take 1 tablet by mouth in the morning. Active metFORMIN (Glucophage) 500 mg tablet Take 500 mg by mouth in the morning and at bedtime. 08/05/2020 Active montelukast (Singulair) 10 mg tablet Take 1 tablet by mouth in the morning. 03/08/2020 Active pantoprazole (ProtoNix) 40 mg EC tablet Take 1 tablet by mouth in the morning. Active sertraline (Zoloft) 50 mg tablet Take 1 tablet by mouth at bedtime. Active fluticasone (Flonase) 50 mcg/actuation nasal spray 1 (one) time each day at the same time. Active Breo Ellipta 100-25 mcg/dose inhaler Use 1 puff in the mouth or throat 1 (one) time each day. 09/10/2023 Active metoprolol tartrate (Lopressor) 100 mg tabletIndications:L ongstanding persistent atrial fibrillation (CMS/HCC) Take 1 tablet (100 mg) by mouth two times daily. 180 tablet 3 05/21/2024 05/21/2025 Active cholecalciferol, vitamin D3, 50 mcg (2,000 unit) capsule Take 2,000 Units by mouth in the morning. 05/16/2021 Active furosemide (Lasix) 40 mg tabletIndications:E reena, unspecified type Take 1 tablet (40 mg) by mouth two times daily. 240 tablet 3 06/17/2024 06/17/2025 Active Additional Information Patient taking differently: 80 mgoral 2 times daily,80mg in the AM, 40mg in the PM, Reported on 06/25/2024 potassium chloride CR (K-Tab) 20 mEq ER tabletIndications:E reena, unspecified type Take 1 tablet (20 mEq) by mouth two times daily. Do not crush, chew, or split. 180 tablet 3 07/03/2024 07/03/2025 Active dapagliflozin propanediol (Farxiga) 10 mgIndications:Chron ic heart failure with preserved ejection fraction (CMS/HCC) Take 1 tablet (10 mg) by mouth once daily as directed. 90 tablet 3 08/07/2024 08/07/2025 Active Rexulti 0.5 mg tablet Take 0.5 mg by mouth. 07/23/2024 Active amiodarone (Pacerone) 200 mg tabletIndications:P aroxysmal atrial fibrillation (CMS/HCC) TAKE 1 TABLET(200 MG) BY MOUTH IN THE MORNING 90 tablet 3 12/15/2024 Active Active Problems Problem Noted Date Diagnosed Date Altered mental status, unspecified 02/10/2024 Hallucination 02/10/2024 Overview (05/13/2024): Per caregiver she has persistent auditory hallucinations. She continues to talk to people, most specifically a , who is not there. She sings in the bathroom as well. Patient continues to assess that there is nothing wrong with her. She denies any focal neurological symptoms. She is very pleasant and cooperative and evaluation. She did not tolerate MRI scan so we will pursue a CT. Psychosis 02/10/2024 Paroxysmal A-fib 12/13/2023 Chronic respiratory failure 09/17/202308/30 Electrolyte and fluid disorder 09/17/2023 1 11/18/2022 [facility] 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 steroid 023 09/17/2023 Morbid obesity 09/17/2023 09/17/2023 Severe persistent asthma 09/17/2023 023 Chronic heart failure with preserved ejection fr action 06/18/2023 Assessment & Plan (12/11/2023 2:50 PM EDT): [facility]- II- currently euvolemic without exacerbation Continue GDMT- lipitor, farxiga, beta amber, aldactone Diuretic therapy- lasix Monitor daily weights, I&O, fluid restriction 1.5-2L/day, renal function and electrolytes- Asthma 03/22/2023 04/25/2023 Sinusitis 03/22/2023 04/25/2023 Atrial fibrillation status post cardioversion Assessment & Plan (12/11/2023 2:48 PM EDT): ECG today- a flutter- rate controlled Remains on eliquis anticoagulation, amiodarone for rhythm control and metoprolol Will D/W Dr Alfred regarding further intervention with possible EPS/Ablation Assessment & Plan (05/21/2023 2:02 PM EDT): [id number] VASc= 4 HTN, age, female Continue anticoagulation with eliquis Currently in a fib per EKG at HR 104 bpm Will increase metoprolol to 75 mg bid for better rate control RTC with EP in about 1-3 months Monitor for s/s of bleeding Iron deficiency anemia secon pascale to inadequate dietary iron intake 06/17/2019 04/25/2023 Carcinoma of lower-outer wanda drant of right breast in female, estrogen receptor negative 05/07/2019 04/25/2023 Acute hypoxemic respiratory failure 01/09/2019 04/25/2023 Acute severe refractory exacerbation of asthma 0 01/09/2019 04/25/[address] elevation myocardial infarction (S HALIMA) 01/09/2019 04/25/2023 Assessment & Plan (05/21/2023 2:02 PM EDT): No concerning symptoms currently Gastroesophageal reflux disease 01/09/2019 04/25/2023 Hypertensive disorder 01/09/2019 04/25/2023 Assessment & Plan (12/11/2023 2:48 PM EDT): Hypertension is well controlled. Continue all meds- metoprolol, aldactone, losartan Assessment & Plan (05/21/2023 2:01 PM EDT): Hypertension is well controlled Continue all meds losartan, metoprolol Type 1 diabetes mellitus 01/09/2019 023 Encounters Date Type Department Care Team Description 02/18/2025 Orders Only [place] [address] [place] [address] ProviderIsis MD 12/15/2024 Refill [facility] [address] [place] [address] Brian Alfred MD Paroxysmal atrial fibrillation (CMS/HCC) from Last 3 Months Immunizations Name Administration Dates Next Due Influenza, High Dose Seasona l, Preservative Free 07/21/2019,06/26/2018,07/17/2017 Influenza, injectable, quadr ivalent, preservative free 07/01/2017 Influenza, seasonal, injecta ble, preservative free, 6 moonths & older 07/11/2015 Pneumococcal Conjugate PCV 13 06/26/2018, 015 Pneumococcal Polysaccharide PPV23 07/21/2019 Zoster, live 10/09/2015 Family History Medical History Relation Name Comments Heart failure Mother Relation Name Status Comments Mother Social History Tobacco Use Types Packs/Day Years Used Date Smoking Tobacco: Never Smokeless Tobacco: Never Tobacco Cessation:Counseling Given: Not Answered Alcohol Use Standard Drinks/Week Comments Not Currently 0 (1 standard drink = 0.6 oz pur e alcohol) [place] Safety & Environment Answer Date Rec orded Fear of Current or Ex-Partner Not on file Emotionally Abused Not on file 11/21/2023 Physically Abused Not on file 11/21/2023 Sexually Abused Not on file 11/21/2023 Physically or Sexually Abused Not on file Sex and Gender Information Value Date Recorded Sex Assigned at Female 04/25/2023 2:07 PM EDT Gender Identity Female 04/25/2023 2:07 PM EDT Sexual Orientation Heterosexual or Straight 03/31 2:07 PM EDT Last Filed Vital Signs Vital Sign Reading Time Taken Comments Blood Pressure 120/76 09/09/2024 1:25 PM EST Pulse 84 09/09/2024 1:25 PM EST Temperature - - Respiratory Rate 18 10/31/2023 8:14 AM EST Oxygen Saturation 93% 09/09/2024 1:25 PM EST Inhaled Oxygen Concentration - - Weight 113 kg (250 lb) 09/09/2024 1:25 PM EST Height 172.7 cm (5' 8 ) 09/09/2024 1:25 PM EST Body Mass Index 38.01 09/09/2024 1:25 PM EST Plan of Treatment Upcoming Encounters Date Type Department Care Team (Late st Contact Info) Description 02/24/2025 2:20 PM EDT Office Visit [facility] [address] [place] [address] Elvin Isaac, CHETNA [address] [place] [address] Health Maintenance Due Date Last Done Comments Medicare Annual Wellness (AWV) 1950 Diabetes: Retinopathy Screening 01/04/1958 Depression Screening 1960 Adult Tetanus 01/04/1970 Zoster Vaccines (1 of 2) 01/04/1998 10/09/2015 Fall Risk Screening 01/04/2013 COVID-19 Vaccine ( season) 2024 06/24/2024, 07/25/2023, 05/08/2022, Additional history exists Diabetes: Hemoglobin A1C 01/26/2025 10/28/2024 Diabetes: Urine Protein Screening 05/06/2025 05/06/2024 Influenza Vaccine Completed 06/24/2024, , 07/11/2022, Additional history exists Pneumococcal Vaccine: 65+ Years Completed 06/24/2024, 07/21/2019, 06/26/2018, Additional history exists HIB Vaccines Aged Out No longer eligi ble based on patient's age to complete this topic HPV Vaccines Aged Out No longer eligi ble based on patient's age to complete this topic IPV Vaccines Aged Out No longer eligi ble based on patient's age to complete this topic Meningococcal B Vaccine Aged Out No l onger eligible based on patient's age to complete this topic Meningococcal Vaccine Aged Out No henrry maribeth eligible based on patient's age to complete this topic Rotavirus Vaccines Aged Out No longer eligible based on patient's age to complete this topic Procedures Procedure Name Priority Date/Time Associated Diagnosis Comments HEMOGLOBIN A1C Routine 10/28/2024 5:01 PM EST from Last 3 Months or Most Recently Relevant to Health Maintenance Results * Hemoglobin A1c (10/28/2024 5:01 PM EST) Blood Venous blood specimen / Unknown Historical Provider LAB BLOOD ORDERAB LES from Last 3 Months or Most Recently Relevant to Health Maintenance Advance Directives * Full Code (Latest Code Status on File) Date Activated Date Inactivated Comments 10/31/2023 8:36 AM 10/31/2023 11:10 AM Care Teams Nuclear Fuels Reclamation Engineer Relationship Specialty Start Date End Date Ishan Reyez MD [address] [place], [place] [id number] PCP - General Family Medicine 06/18/23
--- OUTSIDE RECORDS SUMMARY | 2025-02-24 13:48 | XMS_ITS | Encounter Summary ---
Author Organization [facility] Address [address] [place] [address] Care Team Providers Care Aerodynamic Consultant Name Role Phone Hortensia Landeros MD Primary Care Provider [phone] Samantha Benitez APRN.HALAL BUTCHER Unavailable [phone] Chary Cornelius RN Unavailable [phone] Reginald Aragon MD Unavailable [phone] Source Comments In the event this information is protected by the Federal Confidentiality of Alcohol and Drug AbusePatient Records regulations: The Federal rules restrict any use of the information to criminally investigate or prosecute any alcohol or drug abuse patient.[facility] Encounter Details Date Type Department Care Team (Latest Contact Info) Description 03/11/2019 H&P External-NonCCF Provider, External, [facility] Do not enter address information under generic External Provider. Social History Tobacco Use Types Packs/Day Years Used Date Smoking Tobacco: Never Assessed Comments Unknown Sex and Gender Information Value Date Recorded Sex Assigned at Not on file Legal Sex Female 9:20 PM EDT Gender Identity Not on file Sexual Orientation Not on file documented as of this encounter Plan of Treatment Not on file documented as of this encounter Visit Diagnoses Not on filedocumented in this encounter Care Teams Aerodynamic Consultant Relationship Specialty Start Date End Date Hortensia Landeros MD [address] [place] [address] PCP - General Family Medicine 03/11/19 Samantha Benitez APRN.HALAL BUTCHER [address] [place] [address] Physician Ethnology Professor Hematology/Oncology 04/27/19 Chary Cornelius, DILCIA [address] [place] [address] Specialty Brazing Machine Setter Hematology/Oncology 05/14/19 01/31/21 Reginald Aragon MD [address] [place] [address] [place] [address] Physician Hematology/Oncology 12/07/19 documented as of this encounter
--- OUTSIDE RECORDS SUMMARY | 2025-02-24 13:48 | XMS_ITS | Clinical Summary ---
Author Organization [facility] Address [address] [place] [address] Care Team Providers Care Computer Processing Scheduler Name Role Phone Hortensia Landeros MD Primary Care Provider [phone] Samantha Benitez APRN.BELT BUILDER Unavailable [phone] Reginald Aragon MD Unavailable [phone] Allergies Active Allergy Reactions Criticality Noted Date Comments Clarithromycin Unknown 01/27/2010 Conjugated Estrogens Unknown 01/27/2010 Yrurifak-Yopovwnxml-Ulwo myxin Rash 05/06/2019 Paclitaxel Other: See Comments 08/24/2019 Numbness,tingling and elevated blood pressure Peanut Anaphylaxis 05/06/2019 Penicillins Rash 05/06/2019 Sulfa (Sulfonamide Antibiotics) Unknown 01/27/2010 Medications ELIQUIS 5 mg tab(s) Take 5 mg by mouth twice daily. 9 Active atorvastatin (LIPITOR) 40 mg tablet Take 40 mg by mouth as directed. Takes 80mg in the AM and 40mg in the Pm 3 9 Active VITAMIN D-3 2,000 unit cap 2,000 Units once daily. 5 9 Active ADVAIR DISKUS 500-50 mcg/dose dsdv 1 Puff twice daily. 5 9 Active fluticasone (FLONASE) 50 mcg/actuation nasal spray 2 Sprays once daily. 0 9 Active furosemide (LASIX) 40 mg tablet Take 40 mg by mouth once daily. 3 9 Active losartan (COZAAR) 50 mg tablet Take 50 mg by mouth once daily. 3 9 Active metoprolol tartrate, short acting, (LOPRESSOR) 50 mg tablet Take 100 mg by mouth two times a day. 5 9 Active WOMEN'S MULTIVITAMIN 18 mg-400 mcg- 500 mg-50 mcg tab TK 1 T PO D 3 9 Active sertraline (ZOLOFT) 50 mg tablet Take 50 mg by mouth once daily. 5 9 Active SPIRIVA RESPIMAT 1.25 mcg/actuation mist Inhale 2 Puffs as instructed once daily. 12 9 Active prochlorperazine (COMPAZINE) 10 mg tablet Take 1 tablet by mouth every 6 hours as needed. 30 tablet 2 9 Active Additional Information Patient not taking.Reported on 09/12/2023 ondansetron (ZOFRAN) 8 mg tablet Take 1 tablet by mouth every 8 hours as needed for Nausea/Vomiting . 30 tablet 2 9 Active loratadine (CLARITIN) 10 mg tablet Take 10 mg by mouth once daily. 0 9 Active acetaminophen (TYLENOL) 500 mg tablet Take 1,000 mg by mouth every 6 hours as needed. Active albuterol HFA (PROVENTIL HFA, VENTOLIN HFA) 90 mcg/actuation inhaler Inhale 2 Puffs as instructed every 6 hours as needed. Active pantoprazole DR (PROTONIX) 40 mg tablet Take 40 mg by mouth once daily. Active NYSTOP powder Apply to affected area two times a day as needed. APPLY TO AFFECTED AREA 0 Active silver sulfADIAZINE (SILVADENE,THERM AZENE) 1 % cream Apply to affected area twice daily 0 Active ipratropium-albu terol (DUONEB) 0.5 mg-3 mg(2.5 mg base)/3 mL nebu INHALE THE CONTENTS OF 1 VIAL THROUGH NEBULIZER QID 0 Active predniSONE (DELTASONE) 10 mg tablet TK 3 TS PO QAM FOR 3 DAYS FOR ASTHMA FLARE 0 Active montelukast (SINGULAIR) 10 mg tablet TK 1 T PO QD 0 Active metFORMIN (GLUCOPHAGE) 500 mg tablet TK 1 T PO BID 0 Active FARXIGA 5 mg tablet Take 10 mg by mouth once daily. 1 Active potassium chloride ER (K-DUR, KLOR-CON) 20 mEq tablet Take 2 tablets by mouth once daily. 180 tablet 1 1 Active ADULTS 50 PLUS 0.4-300-250 mg-mcg-mcg tab Take 1 tablet by mouth once daily. 1 Active FASENRA PEN 30 mg/mL 1 Active potassium chloride 20 mEq TbER TAKE 2 TABLETS BY MOUTH EVERY DAY 180 tablet 3 Active BREO ELLIPTA 100-25 mcg/dose inhaler 3 Active ARIPiprazole (ABILIFY) 15 mg tablet Take 15 mg by mouth once daily. Active spironolactone (ALDACTONE) 25 mg tablet Take 25 mg by mouth once daily. Active REXULTI 0.5 mg tablet Take 0.5 mg by mouth daily at bedtime. 4 Active Active Problems Problem Noted Date Diagnosed Date Iron deficiency anemia secon pascale to inadequate dietary iron intake 06/17/2019 Malignant neoplasm of overla pping sites of breast in female, estrogen receptor negative 04/20/2019 Immunizations Immunization Administration Dates Next Due COVID-19 original vaccine, f ull dose, monovalent (MODERNA) 11/24/2020,10/27/2020 COVID-19 vaccine, age 12+ yr (MODERNA) 4,07/25/2023 influenza (HD-IIV3) vaccine, age 65+ yr, high dose, trivalent, PF (FLUZONE HIGH-DOSE) 06/24/2024,07/21/2019,06/26/2018,07/17 influenza (HD-IIV4) vaccine, age 65+ yr, high dose, quadrivalent, PF (FLUZONE HIGH-DOSE) 07/25/2023,07/11/2022,08/07/2021 influenza (IIV3) vaccine, tr ivalent, PF (AFLURIA, FLUARIX, FLULAVAL, FLUVIRIN, FLUZONE) 07/11/2015 influenza (IIV4) vaccine, ag e 6 mo - 64 yr, quadrivalent, PF (AFLURIA, FLUARIX, FLULAVAL, FLUZONE) 07/01/2017 influenza (aIIV4) vaccine, a ge 65+ yr, quadrivalent, PF (FLUAD QUAD) 07/07/2020 pneumococcal conjugate (PCV1 3) vaccine, 13 valent (PREVNAR 13) 06/26/2018,07/11/2015 pneumococcal conjugate (PCV2 0) vaccine, 20 valent (PREVNAR 20) 06/24/2024 pneumococcal polysaccharide (PPV23) vaccine, 23 valent (PNEUMOVAX 23) 07/21/2019 respiratory syncytial virus (RSV) vaccine, adjuvanted (AREXVY) 06/24/2024 zoster (ZVL) vaccine, live (ZOSTAVAX) 10/09/2015 Social History Tobacco Use Types Packs/Day Years Used Date Smoking Tobacco: Never Passive Smoke Exposure: Never Smokeless Tobacco: Never Tobacco Cessation:Counseling Given: Not Answered Alcohol Use Standard Drinks/Week Comments Never 0 (1 standard drink = 0.6 oz pur e alcohol) AUDIT-C Answer Date Recorded Q1: How often do you have a drink containing alc ohol? Never 01/21/2020 Average Number of Drinks Not on file 020 Frequency of Binge Drinking Not on file 12/30 PHQ-2 Answer Date Recorded PHQ-2 score 0 07/30/2024 Area Deprivation Index Answer Date Sterling rded National Score (1-100), lower number is lower ri sk 75 03/14/2023 State Score (1-10), lower number is lower risk 6 03/14/2023 Data from: https://www.neighborhoodatlas.medicine.[facility].edu/. Last address used for calculation Umer Zepeda 03/14/2023 Comments No Sex and Gender Information Value Date Recorded Sex Assigned at Not on file Legal Sex Female 9:20 PM EDT Gender Identity Not on file Sexual Orientation Not on file Last Filed Vital Signs Vital Sign Reading Time Taken Comments Blood Pressure 96/63 07/30/2024 1:54 PM EDT Pulse 81 07/30/2024 1:54 PM EDT Temperature 36.3 C (97.3 F) 07/30/2024 1:54 PM EDT Respiratory Rate 18 07/30/2024 1:54 PM EDT Oxygen Saturation 94% 07/30/2024 1:54 PM EDT Inhaled Oxygen Concentration - - Weight 114.3 kg (251 lb 15.8 oz) 07/30/2024 1:54 PM EDT Height 167.7 cm (5' 6.02 ) 07/30/2024 1:54 PM ED T Body Mass Index 40.64 07/30/2024 1:54 PM EDT Plan of Treatment Health Maintenance Due Date Last Done Comments Anxiety Screening 01/04/1966 Depression Screening 01/04/1966 Hepatitis C Screening 01/04/1966 DTaP,Tdap,Td Vaccine (1 - Tdap) 01/04/1967 Bone Density Screening 01/04/2013 Shingrix Vaccine (2 of 3) 12/04/2015 10/09/2015 Advance Directive Discussion 09/30/2024 Covid-19 Vaccine (7 - 2023-2 5 season) 2024 06/24/2024, 07/25/2023, 05/08/2022, Additional history exists Diabetes Screening 07/30/2027 07/30/2024, 0 05/20/2024, 05/05/2024, Additional history exists Mammogram Screening Discontinued 06/08/2020 Influenza Vaccine Completed 06/24/2024, , 07/11/2022, Additional history exists Pneumococcal Vaccine: 50+ Completed 2023, 07/21/2019, 06/26/2018, Additional history exists RSV Vaccine Completed 06/24/2024 Procedures Procedure Name Priority Date/Time Associated Diagnosis Comments COMPREHENSIVE METABOLIC PANEL Routine 07/30/2024 1:47 PM EDT Malignant neoplasm of overlapping sites of right breast in female, estrogen receptor negative (HCC) from Last 3 Months or Most Recently Relevant to Health Maintenance Results * (ABNORMAL) COMPREHENSIVE METABOLIC PANEL (07/30/2024 1:47 PM EDT) Protein, Total 7.7 6.3 - 8.0 g/dL 07/30/2024 2:16 PM EDT [facility] Albumin 4.0 3.9 - 4.9 g/dL 07/30/2024 2:16 PM EDT [facility] Calcium, Total 9.3 8.5 - 10.2 mg/dL 07/30/2024 2:16 PM EDT [facility] Bilirubin, Total 0.4 0.2 - 1.3 mg/dL 07/30/2024 2:16 PM EDT [facility] Alkaline Phosphatase 95 34 - 123 U/L 07/30/2024 2:16 PM EDT [facility] AST 21 13 - 35 U/L 07/30/2024 2:16 PM EDT [facility] ALT 19 7 - 38 U/L 07/30/2024 2:16 PM EDT [facility] Glucose 83 74 - 99 mg/dL 07/30/2024 2:16 PM T [facility] Comment: The [place] Diabetes Association (ADA) provides guidance for cutoff [...] Standards of Medical Care in Diabetes 2016, [place] Diabetes Association. Diabetes Care. 2016.39(Suppl 1). BUN 54(H) 7 - 21 mg/dL 07/30/2024 2:16 PM T [facility] Creatinine 1.41(H) 0.58 - 0.96 mg/dL 07/30/2024 2:16 PM EDT [facility] Sodium 141 136 - 144 mmol/L 07/30/2024 2:16 PM EDT [facility] Potassium 4.3 3.7 - 5.1 mmol/L 07/30/2024 2:16 PM EDT [facility] Chloride 100 98 - 107 mmol/L 07/30/2024 2:16 PM EDT [facility] CO2 31(H) 22 - 30 mmol/L 07/30/2024 2:16 PM EDT [facility] Anion Gap 10 8 - 15 mmol/L 07/30/2024 2:16 PM EDT [facility] Estimated Glomerular Filtration Rate 39(L) >=60 mL/min/1. 73m 07/30/2024 2:16 PM EDT [facility] Comment:Estimated Glomerular Filtration Rate (eGFR) is calculated using the 2020 CKD-EPI creatinine equation. This equation utilizes serum creatinine, sex, and age as parameters. The creatinine assay has traceable calibration to isotope dilution- mass spectrometry. Refer to KDIGO guidelines for clinical interpretation. In patients with unstable renal function, e.g. those with acute kidney injury, the eGFR may not accurately reflect actual GFR. Blood BLOOD SPECIMEN / Unknown Venipuncture / Unknown 07/30/2024 1:47 PM EDT 07/30/2024 1:47 PM EDT Reginald Aragon MD LABORATORY Final Result [facility] [address] [place] [address] from Last 3 Months or Most Recently Relevant to Health Maintenance Insurance MEDICARE MEDICAID [place] MEDICARE RAILROAD Care Teams Computer Processing Scheduler Relationship Specialty Start Date End Date Hortensia Landeros MD [address] [facility] [place] [address] PCP - General Family Medicine 03/11/19 Samantha Benitez APRN.CNP [address] [place] [address] Physician Under Seal Operator Hematology/Oncology 04/27/19 Reginald Aragon MD [address] [place] [address] Physician Hematology/Oncology 12/07/19
--- OUTSIDE RECORDS SUMMARY | 2025-02-24 13:48 | XMS_ITS | Clinical Summary ---
Author Organization [employer] [facility] Address [id number] [address] [place] [address] Care Team Providers Care Document Control Specialist Name Role Phone MandeepEvy crandall Alfredo VENCES-GIS CONSULTANT Primary Care Provider [phone] Allergies Active Allergy Reactions Criticality Noted Date Comments Clarithromycin Other (See Comments) 01/27/2010 Hzefaegr-Nasaaywsyx-Dweryji in Rash Low 05/06/2019 Peanut Anaphylaxis High 05/06/2019 Penicillins Rash Low 05/06/2019 Pineapple 05/07/2019 Shrimp 05/07/2019 All seafood Sulfa (Sulfonamide Antibiotics) Other (See Comments) 01/27/2010 Medications fluticasone propion-salmete rol (ADVAIR) 500-50 mcg/dose DISKUS Inhale 1 puff in the morning and 1 puff before bedtime. Active furosemide (LASIX) 20 mg tablet Take 1 tablet (20 mg total) by mouth daily. Active apixaban (ELIQUIS) 5 mg tablet Take 1 tablet (5 mg total) by mouth in the morning and 1 tablet (5 mg total) before bedtime. Active metoprolol tartrate (LOPRESSOR) 50 mg tablet Take 1 tablet (50 mg total) by mouth in the morning and 1 tablet (50 mg total) before bedtime. Active losartan (COZAAR) 100 mg tablet Take 1 tablet (100 mg total) by mouth in the morning. Active montelukast (SINGULAIR) 10 mg tablet Take 1 tablet (10 mg total) by mouth nightly. Active fluticasone propionate (FLONASE) 50 mcg/actuation nasal spray Administer 2 sprays into each nostril in the morning. Active atorvastatin (LIPITOR) 40 mg tablet Take 1 tablet (40 mg total) by mouth in the morning. Active sertraline (ZOLOFT) 50 mg tablet Take 1 tablet (50 mg total) by mouth in the morning. Active cholecalciferol (VITAMIN D3) 1,000 units tablet Take 2 tablets (2,000 Units total) by mouth in the morning. Active tiotropium bromide 1.25 mcg/actuation mist Inhale 2 puffs daily. Active multivit-min/ir on/folic/lutein (MULTIVITAMIN WOMEN 50 PLUS ORAL) Take 1 tablet by mouth daily. Active acetaminophen (TYLENOL) 500 mg tablet Take 2 tablets (1,000 mg total) by mouth every 6 (six) hours as needed for pain. Active ipratropium-alb uterol (DUO-NEB) 0.5 mg-3 mg(2.5 mg base)/3 mL nebulizer Inhale 3 mL by nebulization 5 (five) times a day. Active ondansetron (ZOFRAN) 8 mg tablet Take by mouth every 8 (eight) hours as needed for nausea or vomiting. Active pantoprazole (PROTONIX) 40 mg EC tablet Take 1 tablet (40 mg total) by mouth in the morning. Active prochlorperazin e (COMPAZINE) 10 mg tablet Take 1 tablet (10 mg total) by mouth every 6 (six) hours as needed for nausea or vomiting. Active albuterol (PROVENTIL HFA;VENTOLIN HFA) 90 mcg/actuation inhaler Inhale 2 puffs every 6 (six) hours as needed for wheezing. Active loratadine (CLARITIN) 10 mg tablet Take 1 tablet (10 mg total) by mouth in the morning. Active dapagliflozin (FARXIGA) 5 mg tablet 1 tablet (5 mg total) in the morning. 1 Active metFORMIN (GLUCOPHAGE) 500 mg tablet TK 1 T PO BID 0 Active benralizumab (FASENRA PEN) 30 mg/mL auto-injector 1 mL (30 mg total) every 60 (sixty) days. 1 Active predniSONE (DELTASONE) 20 mg tablet Take 1 tablet (20 mg total) by mouth in the morning. Active potassium chloride (KLOR-CON M 20) 20 MEQ CR tablet Take 1 tablet (20 mEq total) by mouth in the morning. 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, estrogen receptor negative 05/07/2019 Cancer Staging:Pathologic stage from 05/07/2019: pT1c, pN2a, cM0, ER-, TX-, HER2+ - Unsigned Immunizations Immunization Administration Dates Next Due SARS-COV-2 (COVID-19) Vaccine, Unspecified 05/08,08/07/2021 Family History Medical History Relation Name Comments Cancer Brother Prostate cancer Brother Cancer Father Cancer Mother Cancer Sister Lung cancer Sister Relation Name Status Comments Brother Alive Father Mother Sister Alive Social History Tobacco Use Types Packs/Day Years Used Date Smoking Tobacco: Never Smokeless Tobacco: Never Alcohol Use Standard Drinks/Week Comments Never 0 (1 standard drink = 0.6 oz pur e alcohol) AUDIT-C Answer Date Recorded Frequency of Alcohol Consumption Never 05/07/2019 Average Number of Drinks Not on file 019 Frequency of Binge Drinking Not on file 04/2019 Childcare Answer Date Recorded Childcare Unknown 03/11/2019 Employment Answer Date Recorded Employment Unknown 03/11/2019 Purpose - Life Answer Date Recorded Purpose and direction in life Unknown Comments No Sex and Gender Information Value Date Recorded Sex Assigned at Not on file Legal Sex Female 12:13 PM EDT Gender Identity Not on file Sexual Orientation Not on file Last Filed Vital Signs Vital Sign Reading Time Taken Comments Blood Pressure 117/59 11/01/2022 8:55 AM EST Pulse 87 11/01/2022 8:55 AM EST Temperature 36.8 C (98.2 F) 11/01/2022 6:42 AM EST Respiratory Rate 20 11/01/2022 8:55 AM EST Oxygen Saturation 97% 11/01/2022 8:55 AM EST Inhaled Oxygen Concentration - - Weight 123.4 kg (272 lb) 05/13/2023 10:22 AM EDT Height 167.6 cm (5' 6 ) 11/01/2022 6:42 AM EST Body Mass Index 43.9 11/01/2022 6:42 AM EST Plan of Treatment Health Maintenance Due Date Last Done Comments Depression Screening 1962 Tobacco Screening 1962 DTaP,Tdap and Td Vaccines (1 - Tdap) 01/04/1967 Fall Risk Screening 01/04/2013 Zoster (Shingles) Vaccine (1 of 2) 12/04/2015 10/09/2015 COVID-19 Vaccine (2023-2 5 season) 2024 07/25/2023, 05/08/2022, 08/07/2021, Additional history exists Influenza Vaccine 05/31/2025 07/25/2023, , 08/07/2021, Additional history exists Medical Devices Implanted Type Area Plastic Installer Device Identifier Shelf Expiration Date Model / Serial / Lot Lens Iol Ultrasert 23.0d - [id number] - [id number] Implanted:Qty: 1 on 06/28/2022 by Rosa Elena Lewis MD at [facility] Lens Left: Eye [employer] 02/06/2025 [id number] 23.0 / [id number] / NA Lens Iol Ultrasert 23.5d - [id number] - [id number] Implanted:Qty: 1 on 11/01/2022 by Rosa Elena Lewis MD at [facility] Lens Right: Eye [employer] 04/28/2025 [id number] 23.5 / [id number] 2 / NA Insurance MEDICAID [place] MEDICARE Care Teams Document Control Specialist Relationship Specialty Start Date End Date Evy Kaufman, RU-GIS CONSULTANT [address] [place] [address] PCP - General Nurse Practitioner 11/27/23
--- OUTSIDE RECORDS SUMMARY | 2025-02-24 13:48 | XMS_ITS | Encounter Summary ---
[facility] Address [id number] [address] [place] [address] Care Team Providers Care Time Study Observer Name Role Phone Evy Kaufman Primary Care Provider [phone] Encounter Details Date Type Department Care Team (Late st Contact Info) Description 09/17/2019 Social Work [facility] Oncology - Radiation Oncology [address] [place] [phone] Steff Martin LSW Social History Tobacco Use Types Packs/Day Years [...] Employment Answer Date Recorded Employment Unknown 03/11/2019 Comments Unknown Sex and Gender Information Value Date Recorded Sex Assigned at Not on file Legal Sex Female 12:13 PM EDT Gender Identity Not on file Sexual Orientation Not on file documented as of this encounter Plan of Treatment Not on file documented as of this encounter Visit Diagnoses Not on filedocumented in this encounter Care Teams Time Study Observer Relationship Specialty Start Date End Date Evy Kaufman APRN-CNP [address] [place] [address] PCP - General Nurse Practitioner 11/27/23 documented as of this encounter
--- OUTSIDE RECORDS SUMMARY | 2025-02-24 13:48 | XMS_ITS | Encounter Summary ---
Author Organization [facility] Address [address] [place] [address] Care Team Providers Care Auction Clerk Name Role Phone Ishan Reyez MD Primary Care Provider [phone] Reason for Visit * Reason Comments Med Refill Encounter Details Date Type Department Care Team (Late st Contact Info) Description 11/29/[address] [address] Brian Alfred MD [address] [place] [address] Paroxysmal atrial fibrillation (CMS/HCC) Social History Tobacco Use Types Packs/Day Years Used Date Smoking Tobacco: Never Smokeless Tobacco: Never Alcohol Use Standard Drinks/Week Comments Not Currently [...] Heterosexual or Straight 03/31 2:07 PM EDT documented as of this encounter Plan of Treatment Upcoming Encounters Date Type Department Care Team (Late st Contact Info) Description 02/24/2025 2:20 PM EDT Office Visit [facility] [address] [place] [phone] Elvin Isaac, HELP DESK SUPPORT [address] [place] [address] documented as of this encounter Visit Diagnoses Diagnosis Paroxysmal atrial fibrillation (CMS/HCC) Atrial fibrillation documented in this encounter Care Teams Auction Clerk Relationship Specialty Start Date End Date Ishan Reyez MD [address] [place] [address] PCP - General Family Medicine 06/18/23 documented as of this encounter
--- OUTSIDE RECORDS SUMMARY | 2025-02-24 13:48 | XMS_ITS | Encounter Summary ---
Author Organization [employer] s tem Address [id number] [address] [place] [address] Care Team Providers Care Undertaker Helper Name Role Phone Evy Kaufman APRN-QUILLER MACHINE FIXER Primary Care Provider [phone] Encounter Details Date Type Department Care Team (Late st Contact Info) Description 07/11/2020 Abstract [facility] Oncology - Radiation Oncology [address] [place] [id number] Ruthann Jarrett RMA Social History Tobacco Use Types Packs/Day Years [...] on file documented as of this encounter Procedures Procedure Name Priority Date/Time Associated Diagnosis Comments MAMM DIAGNOSTIC UNILAT LT W CAD Routine 06/08/2020 documented in this encounter Results * Mammography diagnostic unilateral left with CAD (06/08/2020) Anatomical Region Laterality Modality Breast Left Mammography 06/08/2020 us Not In System Ref Prov IMG MAMMOGRAPHY ORDERABLE S Final Result documented in this encounter Visit Diagnoses Not on filedocumented in this encounter Care Teams Undertaker Helper Relationship Specialty Start Date End Date Evy Kaufman, INFUSION PHARMACIST-QUILLER MACHINE FIXER [address] [place] [address] PCP - General Nurse Practitioner 11/27/23 documented as of this encounter
--- OUTSIDE RECORDS SUMMARY | 2025-02-24 13:48 | XMS_ITS ---
Author Organization [facility] Address [address] [place] [address] Care Team Providers Care Home And Family Living Professor Name Role Phone Hortensia Landeros MD Primary Care Provider [phone] Samantha Benitez APRN.ANTIQUE REFINISHER Unavailable [phone] Reginald Aragon MD Unavailable [phone] Active Problems Problem Noted Date Diagnosed Date Iron deficiency anemia secon pascale to inadequate dietary iron intake 06/17/2019 Malignant neoplasm of overla pping sites of breast in female, estrogen receptor negative 04/20/2019 Current Treatment and Therapy Plans No current plan information found. Past Treatment and Therapy Plans NON-CHEMO 1 Plan Name Start Date Discontinue Date Treatment Medications Discontinue Reason Plan Provider Cycles FERRIC CARBOXYMALTOSE 15 D1,8 019 09/12/2020 ferric carboxymaltose iv piggyback in NaCl 0.9% (INJECTAFER) Other Manjit Hernandez DO 1 of 1 cycle started ONCOLOGY REGIMEN Plan Name Start Date Discontinue Date Treatment Medications Discontinue Reason Plan Provider Cycles TCH - P - TRASTUZUMAB 8/ PERTUZUMAB 840/420 DOCETAXEL 75 CARBOPLATIN 6 D1 - Q21D 05/06/2019 10/19/2020 CARBOplatin iv piggyback (PARAPLATIN)DO CEtaxel iv piggyback (TaxoTERE)pegf ilgrastim (NEULASTA ONPRO)pegfilgr astim (NEULASTA)pert uzumab iv piggyback (PERJETA)trast uzumab iv piggyback (HERCEPTIN) Manjit Camargo DO 17 of 17 cycles started
--- OUTSIDE RECORDS SUMMARY | 2025-02-24 13:48 | XMS_ITS | Referral Summary ---
Author Organization [facility] Address [address] [place] [address] Care Team Providers Care Certified Pedorthotist Name Role Phone Ishan Reyez MD Primary Care Provider [phone] Encounters Date Type Department Care Team Description 02/18/2025 Orders Only [facility] [address] [place] [address] ProviderIsis MD 12/15/2024 Refill [facility] [address] [place] [address] Brian Alfred MD Paroxysmal atrial fibrillation (CMS/HCC) from Last 3 Months Allergies Active Allergy Reactions Criticality Noted Date Comments Bacitracin 04/25/2023 Bromelains 04/25/2023 Clarithromycin Other,Unknown 01/27/2010 Conjugated Estrogens Unknown 01/27/2010 Estrogens, Conjugated 04/25/2023 Neomycin Sulfate 04/25/2023 Apaouofw-Austgxcprz-Tufgkdn in Rash Low 05/06/2019 Paclitaxel Other 08/24/2019 [...] Electrolyte and fluid disorder 09/17/2023 1 11/18/2022 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 steroid 023 09/17/2023 [...] Assessment & Plan (05/21/2023 2:02 PM EDT): [id number] VASc= 4 HTN, age, female Continue anticoagulation [...] metoprolol Type 1 diabetes mellitus 01/09/2019 023 Immunizations Name Administration Dates Next Due Influenza, High Dose Seasona l, Preservative Free 07/21/2019,06/26/2018,07/17/2017 Influenza, injectable, quadr ivalent, preservative free 07/01/2017 Influenza, seasonal, injecta ble, preservative free, 6 moonths & older 07/11/2015 Pneumococcal Conjugate PCV 13 06/26/2018, 015 Pneumococcal Polysaccharide PPV23 07/21/2019 Zoster, live 10/09/2015 Social History Tobacco Use Types Packs/Day [...] Description 02/24/2025 2:20 PM EDT Office Visit [facility] [address] [place] [address] Elvin Isaac, ONCOLOGY RADIATION PHYSICIAN [address] [place] [address] Procedures Procedure Name Priority Date/Time Associated Diagnosis [...] 8:36 AM 10/31/2023 11:10 AM Care Teams Certified Pedorthotist Relationship Specialty Start Date End Date Ishan Reyez MD [address] [phone] PCP - General Family Medicine 06/18/23
--- OUTSIDE RECORDS SUMMARY | 2025-02-24 13:48 | XMS_ITS ---
Author Organization [facility] Address [id number] 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 Past Treatment and Therapy Plans No past plan information found. Radiation Treatments * Course C1 10/05/2019 - 11/06/2019 Treatment Period Energy Fraction Dose Fractions Total Dose Plans Planned [place] 10/05/2019 - 11/06/2019 200 25 / 25 5,000 Reference Points Delivered Rx R CW nodes 10/05/2019 - 11/06/2019 5,000
--- OUTSIDE RECORDS SUMMARY | 2025-02-24 13:48 | XMS_ITS | Clinical Summary ---
Author Organization [facility] Address [address] [place] [address] Phone Care Team Providers Care Clinical Application Consultant Name Role Phone Unavailable Primary Care Provider Unavailabl e Social History Tobacco Use Types Packs/Day Years Used Date Smoking Tobacco: Never Assessed Comments Unknown Sex and Gender Information Value Date Recorded Sex Assigned at Not on file Legal Sex Female 5:35 PM EST Gender Identity Not on file Sexual Orientation Not on file Plan of Treatment Not on file
--- OUTSIDE RECORDS SUMMARY | 2025-02-24 13:48 | XMS_ITS | Encounter Summary ---
Author Organization [facility] Address [address] [place] [address] Care Team Providers Care Lawnmower Repair Mechanic Name Role Phone Ishan Reyez MD Primary Care Provider [phone] Reason for Visit * Reason Comments Med Refill Encounter Details Date Type Department Care Team (Late st Contact Info) Description 12/24/[address] [address] Brian Alfred MD [address] [place] [address] Paroxysmal atrial fibrillation (CMS/HCC) [...] Description 02/24/2025 2:20 PM EDT Office Visit [facility] [address] [place] [id number] Elvin Isaac, DIRECTORY OPERATOR [address] [place] [address] documented as of this encounter Visit Diagnoses Diagnosis Paroxysmal atrial fibrillation (CMS/HCC) Atrial fibrillation documented in this encounter Care Teams Lawnmower Repair Mechanic Relationship Specialty Start Date End Date Ishan Reyez MD [address] [place] [id number] PCP - General Family Medicine 06/18/23 documented as of this encounter
--- OUTSIDE RECORDS SUMMARY | 2025-02-24 13:48 | XMS_ITS | Clinical Summary ---
Author Organization [facility] Address [address] [place] [address] Care Team Providers Care Business Writer Name Role Phone Evy Kaufman MD Unavailable Ishan Reyez MD Primary Care Provider [phone] Allergies Active Allergy Reactions Criticality Noted Date Comments Clarithromycin 02/10/2024 Conjugated Estrogens 02/10/2024 Bacitracin-Polymyxin B 02/10/2024 Paclitaxel 02/10/2024 Peanut Oil 02/10/2024 Peanut-Containing Drug Products 01/28 Penicillins 02/10/2024 Sulfa Antibiotics 02/10/2024 Medications apixaban (Eliquis) 5 MG tablet Take 5 mg by mouth in the morning and 5 mg before bedtime. Active cholecalciferol (Vitamin D-3) 50 MCG (2000 UT) capsule Take 2,000 Units by mouth Daily Active albuterol HFA 90 mcg/act inhaler Inhale 1 puff every 4 (four) hours if needed Active atorvastatin (Lipitor) 40 MG tablet Take 40 mg by mouth Daily Active benralizumab (Fasenra Pen) 30 MG/ML injection Inject 30 mg under the skin Active dapagliflozin (Farxiga) 5 MG Take 1 tablet by mouth Daily Active fluticasone (Flonase) 50 MCG/ACT nasal spray Administer 1 spray into each nostril Daily Active Fluticasone-Shmuel meterol (Advair Diskus) 500-50 MCG/ACT aerosol powder Inhale Active furosemide (Lasix) 20 MG tablet Take 40 mg by mouth Daily 3 Active metFORMIN (Glucophage) 500 MG tablet Take 500 mg by mouth in the morning. Take with meals. Active metoprolol tartrate (Lopressor) 100 MG tablet Take 100 mg by mouth Daily 3 Active montelukast (Singulair) 10 MG tablet Take 1 tablet by mouth Daily Active loratadine (Claritin) 10 MG tablet Take 1 tablet by mouth Daily Active ARIPiprazole (Abilify) 15 MG tablet Take 15 mg by mouth Daily 1 1/2 tablet Active spironolactone (Aldactone) 25 MG tablet Take 25 mg by mouth Daily 3 Active pantoprazole (ProtoNix) 40 MG EC tablet Take 40 mg by mouth in the morning. Active sertraline (Zoloft) 50 MG tablet Take 1 tablet by mouth Daily Active tiotropium (Spiriva Respimat) 1.25 MCG/ACT inhaler Inhale 2 puffs Daily Active ipratropium-alb uterol (Duo-Neb) 0.5-2.5 mg/3 mL nebulizer solution Take 3 mL by nebulization every 6 (six) hours Active predniSONE (Deltasone) 10 MG tablet Take 10 mg by mouth 3 po qam for 3 days Active ondansetron (Zofran) 8 MG tablet Take 8 mg by mouth Daily Active losartan (Cozaar) 50 MG tablet Take 100 mg by mouth Daily Active Active Problems Problem Noted Date Diagnosed Date Altered mental status, unspecified 02/10/2024 Psychosis 02/10/2024 Hallucination 02/10/2024 Overview (02/10/2024): Per caregiver she has persistent auditory hallucinations. [...] scan so we will pursue a CT. Social History Tobacco Use Types Packs/Day Years Used Date Smoking Tobacco: Never Smokeless Tobacco: Never Comments Unknown Sex and Gender Information Value Date Recorded Sex Assigned at Not on file Legal Sex Female 6:41 PM EDT Gender Identity Not on file Sexual Orientation Not on file Last Filed Vital Signs Vital Sign Reading Time Taken Comments Blood Pressure 112/80 02/11/2024 10:56 AM EDT Pulse 63 02/11/2024 10:56 AM EDT Temperature - - Respiratory Rate - - Oxygen Saturation 98% 02/11/2024 10:56 AM EDT Inhaled Oxygen Concentration - - Weight 118 kg (260 lb) 02/11/2024 10:56 AM EDT Height 170.2 cm (5' 7 ) 02/11/2024 10:56 AM EDT Body Mass Index 40.72 02/11/2024 10:56 AM EDT Plan of Treatment Upcoming Encounters Date Type Department Care Team (Late st Contact Info) Description 03/24/2025 2:30 PM EDT Clinical Support [facility] [address] [facility] [address] [place] [id number] Deann Hoffman, [facility] [address] [place] [address] 03/31/2025 1:10 PM EDT Office Visit [facility] [address] [facility] [address] [place] [address] Trinidad Simmons MD [address] [facility] [address] [place], [place] [id number] Health Maintenance Due Date Last Done Comments Influenza Vaccine Completed 06/24/2024, , 07/11/2022, Additional history exists Pneumococcal Vaccine: 65+ Years Completed 06/24/2024, 07/21/2019, 06/26/2018, Additional history exists [place] [address] MEDICAID [place] Care Teams Business Writer Relationship Specialty Start Date End Date Ishan Reyez MD [address] [place] [phone] PCP - General Family Medicine 12/22/24 Evy Kaufman MD [address] [place] [phone] Referring Physician Family Medicine 02/11/24
--- OUTSIDE RECORDS SUMMARY | 2025-02-24 13:48 | XMS_ITS | Encounter Summary ---
Author Organization [facility] Address [address] [place] [address] Care Team Providers Care Fur Trapper Name Role Phone Ishan Reyez MD Primary Care Provider [phone] Reason for Visit * Reason Comments Med Refill Encounter Details Date Type Department Care Team (Late st Contact Info) Description 06/18/2023 Refill [facility] [address] [place] [address] Martir Aldridge MD [address] [place] [address] Longstanding persistent atrial fibrillation (CMS/HCC) Social History Tobacco Use Types Packs/Day Years Used Date Smoking Tobacco: Never Smokeless Tobacco: Never Alcohol Use Standard Drinks/Week Comments Not Currently 0 (1 standard drink = 0.6 oz pur e alcohol) Sex and Gender Information Value Date Recorded Sex Assigned at Female 04/25/2023 2:07 PM EDT Gender Identity Female 04/25/2023 2:07 PM EDT Sexual Orientation Heterosexual or Straight 03/31 2:07 PM EDT COVID-19 Exposure Response Date Recorded In the last 10 days, have yo u been in contact with someone who was confirmed or suspected to have Coronavirus/COVID-19? No / Unsure 05/21/2023 1:11 PM EDT documented as of this encounter Plan of Treatment Upcoming Encounters Date Type Department Care Team (Late st Contact Info) Description 02/24/2025 2:20 PM EDT Office Visit [facility] [address] [place] [address] Elvin Isaac, MEDICAL IMAGING TECHNICIAN [address] [place] [address] documented as of this encounter Visit Diagnoses Diagnosis Longstanding persistent atrial fibrillation (CMS/HCC) documented in this encounter Care Teams Fur Trapper Relationship Specialty Start Date End Date Ishan Reyez MD [address] [place] [phone] PCP - General Family Medicine 06/18/23 documented as of this encounter
[2025-02-24 14:42] LABS: Anion Gap 9.6; Calcium 9.5 mg/dL (8.5-10.1); Carbon Dioxide 38.7 mmol/L (21.0-32.0); Chloride 101 mmol/L (98-107); Estimated GFR (African America 38 (>=60 mL/min/1.73m^2); Estimated GFR (Non-African Ame 31 (>=60 mL/min/1.73m^2); Glucose 118 mg/dL (74-106); Potassium 4.3 mmol/L (3.5-5.1); Sodium 145 mmol/L (136-145)
== END 2025-02-24 13:42 | disposition home or self-care (01) ==
LOC: LAB 13:45
PROVIDERS: PCP Nurse Practitioner; Visit Provider Nurse Practitioner Family
DX: I11.0 Hypertensive heart disease with heart failure (principal); I50.31 Acute diastolic (congestive) heart failure
CPT/HCPCS: 36415; 80048; 83880

== ENCOUNTER 2025-02-24 15:27 | Outpatient (REF) | payer MEDICARE, MEDICAID, SELFPAY | END 2025-02-24 15:28 | disposition home or self-care (01) | LOC: LAB 15:27 | PROVIDERS: PCP Nurse Practitioner | DX: I50.31 Acute diastolic (congestive) heart failure (principal) | CPT/HCPCS: 36415; 83880 ==

== ENCOUNTER 2025-03-04 12:52 | Outpatient (OUT) | payer MEDICARE, MEDICAID, SELFPAY ==
--- OUTSIDE RECORDS SUMMARY | 2024-06-08 07:30 | XMS_ITS ---
Author Organization [facility] Address [address] [place] [address] Care Team Providers Care Registered Client Associate Name Role Phone Ishan Reyez Primary Care Provider UnavailVictorino Phillipsielle Unavailable [phone] REASON FOR VISIT LEFT PROX HUMERUS FX Encounters Encounter Location Date Provider Diagnosis [facility] Office [address] [place] [address] [place] [address] 06/08/2024 Eulalia Jose Other closed nondisplaced fracture of proximal end of left humerus, initial encounter S42.295A Assessments Encounter Date Diagnosis (ICD Code) Assessment Notes Treatment Notes Treatment Clinical Notes Section Notes 06/08/2024 Other closed nondisplaced fracture of proximal end of left humerus, initial encounter (ICD-10 - S42.295A) 06/08/2024 Other I will have the patient continue to wear the sling for another 2 weeks and continue to work on elbow and wrist/hand range of motion. She can discontinue the sling in 2 weeks and start to work on gentle shoulder range of motion. We will see her back in 4 weeks to repeat x-rays and reassess her progress. Plan Of Treatment Treatment Notes Assessment Notes Other I will have the jaqueline ent continue to wear the sling for another 2 weeks and continue to work on elbow and wrist/hand range of motion. She can discontinue the sling in 2 weeks and start to work on gentle shoulder range of motion. We will see her back in 4 weeks to repeat x-rays and reassess her progress. Pending Test Test Name Order Date SCC- SHOULDER 3 VIEW LEFT 13147 06/08/20 24 Next Appt Details Follow Up: 4 Weeks, Reason: Progress Notes * RUBI SALOMON ADOB:[birth year] (74 yo F)Acc No.[id number]:06/08/2024 Patient: RUBI ARAUJO Provider: BRITNI Hillman :1950 A ge:74 Y S ex:Female Date:06/08/2024 Address:[facility] [address], [id number] Pcp:Ishan Reyez Subjective: * Chief Complaints: * 1 . LEFT PROX HUMERUS FX. * HPI: G eneral Follow Up Information: Patient returns to the office today for recheck of her left proximal humerus fracture. She is with her caregiver who does provide some of the history. Patient states that she is doing better from a pain perspective. She has been wearing her sling. * Medical History: * Medications: N one Objective: * Vitals: * Examination: G eneral examination: O n exam patient is in no distress, age-appropriate, and alert. Sling to left upper extremity, the wrist radial sided wound is still healing but smaller. No drainage or surrounding erythema. Ulnar-sided wound is well-healed. 10 to 15 degrees of active forward shoulder flexion, patient guarding and does not follow directions well, approximately 45 degrees of passive shoulder flexion. Left upper extremity edema still present but reduced compared to last visit. No ecchymosis present. Anterior/lateral humeral head tenderness to palpation. Sensation intact to light touch distally. 2+ radial pulses palpated bilaterally. . X -ray Imaging Studies: 3 view x-rays of the left shoulder were taken in office today and reviewed interpreted by myself as a proximal humerus fracture with increasing callus formation. Assessment: * Assessment: 1. O ther closed nondisplaced fracture of proximal end of left humerus, initial encounter - S42.427A (Primary) Plan: * Treatment: 2. O thers Notes: I will have the patient continue to wear the sling for another 2 weeks and continue to work on elbow and wrist/hand range of motion. She can discontinue the sling in 2 weeks and start to work on gentle shoulder range of motion. We will see her back in 4 weeks to repeat x-rays and reassess her progress. * Follow Up: 4 Weeks Forms: * Images: * Sign off status: Completed true * Provider: BRITNI Hillman Date: 0 06/08/2024 Generated for Doreen tinajero/Isauro/Laliitting on: 0 03/04/2025 12:57 PM EDT History and Physical Notes * HPI (History of Present Illness) Category Sub-Category Detail Notes Category Not es General Follow Up Information Patient returns to t he office today for recheck of her left proximal humerus fracture. She is with her caregiver who does provide some of the history. Patient states that she is doing better from a pain perspective. She has been wearing her sling. Examination Category Sub-Category Detail Notes Category Not es General examination On exam patient is in no distress, age-appropriate, and alert. Sling to left upper extremity, the wrist radial sided wound is still healing but smaller. No drainage or surrounding erythema. Ulnar-sided wound is well-healed. 10 to 15 degrees of active forward shoulder flexion, patient guarding and does not follow directions well, approximately 45 degrees of passive shoulder flexion. Left upper extremity edema still present but reduced compared to last visit. No ecchymosis present. Anterior/lateral humeral head tenderness to palpation. Sensation intact to light touch distally. 2+ radial pulses palpated bilaterally. X-ray Imaging Studies 3 view x-rays of the left shoulder were taken in office today and reviewed interpreted by myself as a proximal humerus fracture with increasing callus formation.
--- OUTSIDE RECORDS SUMMARY | 2024-07-06 06:30 | XMS_ITS ---
Author Organization [facility] Address [address] [place] [address] Care Team Providers Care Industry Operations Investigator Name Role Phone Ishan Reyez Primary Care Provider UnavailEulalia Phillips Unavailable [phone] REASON FOR VISIT LEFT PROXIMAL HUMERUS FX Problems Problem Type SNOMED Code ICD Code Onset Dates Problem Status W/U Status Risk Notes Problem [id number] Other nondisplaced fracture of upper end of left humerus, subsequent encounter for fracture with routine healing (S42.295D) Active confirmed Encounters Encounter Location Date Provider Diagnosis [facility] Office [address] [place] [address] [address] [place] [address] 07/06/2024 Eulalia Garcia Other nondisplaced fracture of upper end of left humerus, subsequent encounter for fracture with routine healing S42.295D Assessments Encounter Date Diagnosis (ICD Code) Assessment Notes Treatment Notes Treatment Clinical Notes Section Notes 07/06/2024 Other nondisplaced fracture of upper end of left humerus, subsequent encounter for fracture with routine healing (ICD-10 - S42.295D) 07/06/2024 Other Patient is now approximately 2+ months out from injury and doing well and is back to close to her baseline and completing her ADLs. We will see her back in 6 weeks with repeat x-rays and to reassess her progress. Plan Of Treatment Treatment Notes Assessment Notes Other Patient is now appro ximately 2+ months out from injury and doing well and is back to close to her baseline and completing her ADLs. We will see her back in 6 weeks with repeat x-rays and to reassess her progress. Pending Test Test Name Order Date SCC- SHOULDER 3 VIEW LEFT [id number] 07/06/20 24 Next Appt Details Follow Up: 6 Weeks, Reason: Progress Notes * RUBI SALOMON ADOB:[birth year] (74 yo F)Acc No.[id number]:07/06/2024 Patient: RUBI ARAUJO Provider: BRITNI Hillman :1950 A ge:74 Y S ex:Female Date:07/06/2024 Address:[facility] [place], [id number] Pcp:Ishan Reyez Subjective: * Chief Complaints: * 1 . LEFT PROXIMAL HUMERUS FX. * HPI: G eneral Follow Up Information: Patient returns to the office with her caregiver for recheck of her left proximal humerus fracture. Patient is doing well, pain is controlled, and patient is completing all the activities of daily living that she needs to. * Medical History: Objective: * Vitals: * Examination: G eneral examination: O n exam patient is in no distress, age-appropriate, and alert. On inspection of the left shoulder skin is intact, no erythema, no warmth to touch. Crepitance palpated with active range of motion to approximately 45 degrees. Mildly tender with palpation of anterior/lateral shoulder. 5/5 scheduling specialist strength distally. Sensation intact with light touch distally. 2+ radial pulse palpated. . X -ray Imaging Studies: 2 view x-rays of the left shoulder were taken in office today and reviewed and interpreted by myself as stable prior fracture and impaction of humeral head shaft and the humeral head. Increased callus formation noted as compared to x-ray on 06/08/2024. Assessment: * Assessment: 1. O ther nondisplaced fracture of upper end of left humerus, subsequent encounter for fracture with routine healing - S42.295D (Primary) Plan: * Treatment: * Follow Up: 6 Weeks Forms: * * Sign off status: Completed true * Provider: BRITNI Hillman Date: 1 Generated for Doreen tinajero/Isauro/Laliitting on: 0 03/04/2025 12:57 PM EDT History and Physical Notes * HPI (History of Present Illness) Category Sub-Category Detail Notes Category Not es General Follow Up Information Patient returns to t he office with her caregiver for recheck of her left proximal humerus fracture. Patient is doing well, pain is controlled, and patient is completing all the activities of daily living that she needs to. Examination Category Sub-Category Detail Notes Category Not es General examination On exam patient is in no distress, age-appropriate, and alert. On inspection of the left shoulder skin is intact, no erythema, no warmth to touch. Crepitance palpated with active range of motion to approximately 45 degrees. Mildly tender with palpation of anterior/lateral shoulder. 5/5 scheduling specialist strength distally. Sensation intact with light touch distally. 2+ radial pulse palpated. X-ray Imaging Studies 2 view x-rays of the left shoulder were taken in office today and reviewed and interpreted by myself as stable prior fracture and impaction of humeral head shaft and the humeral head. Increased callus formation noted as compared to x-ray on 06/08/2024.
--- OUTSIDE RECORDS SUMMARY | 2024-07-21 12:15 | XMS_ITS ---
Author Organization The [facility] in [place] Address [address] [place] [address] Care Team Providers Care Brush Cutter Name Role Phone Evy Proctor Primary Care Provider Unavail Ravinder Varela Unavailable [phone] REASON FOR VISIT Nebulizer Mask Order Encounters Encounter Location Date Provider Diagnosis Pul[facility] [place] [address] [place] [address] 07/21/2024 Ravinder Castellon Plan Of Treatment Next Appt Details Provider Name:Ravinder Castellon, 07/13/2025 02:00:00 PM, [address] [place], [address], Progress Notes * AIMEKaylieDOB: [birth year] (74 yo F)Acc No.[id number]:07/21/2024 Patient: Kaylie ARAUJO :1950 A ge:74 Y S ex:Female Address:[address], [address] , [place], [address] * true * Date: Generated for Printi ng/Faxing/eTransmitting on: 0 03/04/2025 12:59 PM EDT
--- OUTSIDE RECORDS SUMMARY | 2024-08-17 06:30 | XMS_ITS ---
Author Organization [facility] Address [address] [address] Care Team Providers Care Police Liaison Name Role Phone Ishan Reyez Primary Care Provider Juan debi Pearl, Eulalia Unavailable [phone] Results Component Value Reference Range Notes SCC- SHOULDER 3 VIEW LEFT 73 030 Reviewed date:10/21/2024 02:16:11 PM Interpretation: Performing Lab: Notes/Report: REASON FOR VISIT LEFT PROX HUMERUS FX Encounters Encounter Location Date Provider Diagnosis [facility] Office [address] [place] [address] [address] [place] [address] 08/17/2024 Eulalia Plataland Other nondisplaced fracture of upper end of left humerus, subsequent encounter for fracture with routine healing S42.295D Assessments Encounter Date Diagnosis (ICD Code) Assessment Notes Treatment Notes Treatment Clinical Notes Section Notes 08/17/2024 Other nondisplaced fracture of upper end of left humerus, subsequent encounter for fracture with routine healing (ICD-10 - S42.295D) 08/17/2024 Other Patient is doin g well and mostly her complaints sound more consistent with her severe glenohumeral arthritis. She is on Eliquis so can only take Tylenol. We discussed that she should keep working on range of motion, but she can come back and see us on an as-needed basis. Plan Of Treatment Treatment Notes Assessment Notes Other Patient is doing wel l and mostly her complaints sound more consistent with her severe glenohumeral arthritis. She is on Eliquis so can only take Tylenol. We discussed that she should keep working on range of motion, but she can come back and see us on an as-needed basis. Next Appt Details Follow Up: prn, Reason: Progress Notes * RUBI SALOMON ADOB:[birth year] (74 yo F)Acc No.[id number]:08/17/2024 Patient: RUBI ARAUJO Provider: BRITNI Hillman :1950 A ge:74 Y S ex:Female Date:08/17/2024 Address:[facility] [id number] Pcp:Ishan Reyez Subjective: * Chief Complaints: * 1 . LEFT PROX HUMERUS FX. * HPI: G eneral Follow Up Information: Patient returns to the office 6 weeks since her last appointment for recheck of her left proximal humerus fracture. We have been treating this nonoperatively and we have been following x-rays as patient is back to her baseline with range of motion and pain control with activities of daily living. Patient is here with her caregiver states that she is doing well and even has figured out how to do her care again. He states that she gets pain mostly with changing of the weather and takes Tylenol for this. * Medical History: Objective: * Vitals: * Examination: G eneral examination: O n exam patient is in no distress, age-appropriate, alert and oriented x 3. On inspection skin is intact, no erythema, no warmth to touch. Passively I can get patient to approximately 160 degrees with palpated crepitus on shoulder extension. Patient can actively shoulder flexion but uses her other arm to raise it higher. Grossly distally neurovascularly intact. . X -ray Imaging Studies: T hree-view x-rays of the right shoulder were taken in the office today and reviewed interpreted by myself as increased callus formation of the proximal humerus fracture. No change in alignment. Assessment: * Assessment: 1. O ther nondisplaced fracture of upper end of left humerus, subsequent encounter for fracture with routine healing - S42.295D (Primary) Plan: * Treatment: 2. O thers Notes: Patient is doing well and mostly her complaints sound more consistent with her severe glenohumeral arthritis. She is on Eliquis so can only take Tylenol. We discussed that she should keep working on range of motion, but she can come back and see us on an as-needed basis. * Follow Up: p rn Forms: * Images: * Sign off status: Completed true * Provider: BRITNI Hillman Date: 10/17/2023 Generated for Antolini lior/Isauro/Bisiransmitting on: 0 03/04/2025 12:57 PM EDT History and Physical Notes * HPI (History of Present Illness) Category Sub-Category Detail Notes Category Not es General Follow Up Information Patient returns to t he office 6 weeks since her last appointment for recheck of her left proximal humerus fracture. We have been treating this nonoperatively and we have been following x-rays as patient is back to her baseline with range of motion and pain control with activities of daily living. Patient is here with her caregiver states that she is doing well and even has figured out how to do her care again. He states that she gets pain mostly with changing of the weather and takes Tylenol for this. Examination Category Sub-Category Detail Notes Category Not es General examination On exam patient is in no distress, age-appropriate, alert and oriented x 3. On inspection skin is intact, no erythema, no warmth to touch. Passively I can get patient to approximately 160 degrees with palpated crepitus on shoulder extension. Patient can actively shoulder flexion but uses her other arm to raise it higher. Grossly distally neurovascularly intact. X-ray Imaging Studies Three- view x-rays of the right shoulder were taken in the office today and reviewed interpreted by myself as increased callus formation of the proximal humerus fracture. No change in alignment.
--- OUTSIDE RECORDS SUMMARY | 2025-02-24 14:20 | XMS_ITS | Encounter Summary ---
Author Organization [facility] Address [address] [place] [address] Care Team Providers Care Turn Down Attendant Name Role Phone Ishan Reyez MD Primary Care Provider Reason for Referral * Imaging (Routine) - Pending Review Specialty Diagnoses / Procedures Referred By Ambrose thomas Referred To Contact Cardiology Diagnoses BOSCH (dyspnea on exertion) Acute heart failure with preserved ejection fraction (CMS/HCC) Procedures Complete Echo (TTE) w/wo Imaging Agent, Strain, 3D, Bubble Study Elvin Isaac CNP [address] [place] [address] Referral ID Status Reason Start Date Expiration Date Visits Requested Visits Authorized [id number] Pending Review Perform Procedure 02/24/2025 02/24/2026 1 1 Encounter Details Date Type Department Care Team (Late st Contact Info) Description 02/24/2025 2:20 PM EDT Office Visit [facility] [address] [place] [address] Elvin Isaac CNP [address] [place] [address] Acute heart failure with preserved ejection fraction (CMS/HCC) (Primary Dx); BOSCH (dyspnea on exertion); Bilateral lower extremity edema; Obesity, unspecified class, unspecified obesity type, unspecified whether serious comorbidity present; Coronary artery disease involving miccosukee coronary artery of miccosukee heart without angina pectoris Social History Tobacco Use Types Packs/Day Years [...] PM EDT documented as of this encounter Last Filed Vital Signs Vital Sign Reading Time Taken Comments Blood Pressure 138/84 02/24/2025 2:37 PM EDT Pulse 72 02/24/2025 2:37 PM EDT Temperature - - Respiratory Rate - - Oxygen Saturation 96% 02/24/2025 2:37 PM EDT Inhaled Oxygen Concentration - - Weight 124 kg (274 lb) 02/24/2025 2:37 PM EDT Height 172.7 cm (5' 8 ) 02/24/2025 2:37 PM EDT Body Mass Index 41.66 02/24/2025 2:37 PM EDT documented in this encounter Progress Notes * Elvin Isaac CNP - 02/24/2025 2:20 PM EDT SUBJECTIVE Reason for Visit: Kaylie Resendiz is a 75 y.o. year old female patient being seen for follow-up visit. HPI: Kaylie Resendiz is a 75 y.o. year old female with significant medical history of HFpEF, persistent a.fib, asthma, nonobstructive CAD, GERD, hypertension, MRDD, depression, breast Ca with radiationtherapy around . 02/24/2025 office visit: Patient was seen and evaluated in the office today, accompanied by her caregiver. She denies chest pain, palpitations, lightheadedness, or dizziness. Notably, she has gained over 25 pounds since her previous visit in August 2024 and currently has +2 to +3 lower extremity edema. According to her caregiver, the patient is highly sedentary and experiences dyspnea on exertion with minimal activity. She was recently started on Rexulti 1 mg by psychiatry for psychosis, and thinksthis may be a component of her weight gain but states that it has been very effective so she would like to stay on this medication. The caregiver also reports that the patient's diet is extremely poor, consisting of high-sodium and high-sugar foods, including frequent consumption of Wallisian takeout, weekly cake, and salty soups. The patient does not engage in any regular physical activity. 09/09/2024 office visit (Kelly Lyon NP): Patient here for 3 mo follow up HFpEF, persistent afib, and hypertension. Had limited echo 2 weeksago. She is down another 9# since last [...] better. Her caregiver notes she does still getdyspneic with walking shorter distances. 06/17/24: Her visiting nurse called on 06/03/24 for c/o increased SOB, weight gain, increased leg swelling. Herlasix was increased to 40mg BID. Her weight is down 8# since last seen. Patient and caregiver note that patient watches her fluid intake. She likes to snack. Patient is alone in the evening. Caregiver notes that a new guardian was appointed. 02/11/24: Patient here for follow up prior to afib ablation, scheduled for 02/13/2024. Denies chest pain, SOB,palpitations, lightheadedness.syncope. She states she does not want to go forward with procedure. Past Medical History: Diagnosis Date Abnormal ECG Arrhythmia Asthma Atrial fibrillation (CMS/HCC) Breast cancer (CMS/HCC) RADIATION 2017 Coronary artery disease Depression Diabetes (CMS/HCC) GERD (gastroesophageal reflux disease) Hypertension Myocardial infarct (CMS/HCC) Obesity BMI 40.45 Past Surgical History: Procedure Laterality Date CARDIAC CATHETERIZATION 01/16/2019 Patient Active Problem List Diagnosis Acute hypoxemic respiratory failure (CMS/HCC) Acute severe refractory exacerbation of asthma (CMS/HCC) History of ST elevation myocardial infarction (STEMI) Gastroesophageal reflux disease Hypertensive disorder Asthma Iron deficiency anemia secondary to inadequate dietary iron intake Carcinoma of lower-outer quadrant of right breast in female, estrogen receptor negative (CMS/HCC) Atrial fibrillation status post cardioversion ([facility]/HCC) Sinusitis Type 1 diabetes mellitus ([facility]/HCC) Chronic heart failure with preserved ejection fraction ([facility]/HCC) Chronic respiratory failure ([facility]/HCC) 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 Social History Tobacco Use Smoking status: Never Smokeless tobacco: Never Substance Use Topics Alcohol use: Not Currently Drug use: Never OBJECTIVE Visit Vitals OB Status Postmenopausal Smoking Status Never Physical Exam Constitutional: General Appearance: well-developed, appears stated age. Level of Distress: no acute distress. Neck: Jugular Veins: normal jugular venous pressure. Lungs: Auscultation: no rales or rhonchi and normal breath sounds. Cardiovascular: Rate And Rhythm: regular Heart Sounds: normal S1 and s2; Systolic Murmur: not heard. Diastolic Murmur: not heard. Extremities: +2-3 edema. Peripheral Pulses: Pulses: full and equal in all extremities except if noted. Abdomen: Inspection and Palpation: non distended or tender and soft. Musculoskeletal: Inspection: no joint tenderness or swelling. Neurologic: Gait: normal gait. Psychiatric: Mental Status: alert and normal affect. Skin: Inspection and Palpation: warm and dry. Allergies: Allergies Allergen Reactions Peanut Anaphylaxis Bacitracin Bromelains Clarithromycin Other and Unknown Conjugated Estrogens Unknown Estrogens, Conjugated Neomycin Sulfate Paclitaxel Other Numbness,tingling and elevated blood pressure Pineapple Polymyxin B Shrimp All seafood Sulfa (Sulfonamide Antibiotics) Other and Unknown Ecdicgxy-Yvyzvhytyo-Doremxbdq Rash Penicillins Rash Outpatient Medications: Current Outpatient Medications Medication Instructions albuterol 90 mcg/actuation inhaler 2 puffs, inhalation, 3 times daily amiodarone (Pacerone) 200 mg tablet TAKE 1 TABLET(200 MG) BY MOUTH IN THE MORNING apixaban (Eliquis) 5 mg tablet 1 tablet, oral, 2 times daily RT atorvastatin (Lipitor) 40 mg tablet 1 tablet, oral, Nightly benralizumab (Fasenra Pen) 30 mg/mL auto-injector EVERY 8 WEEKS LAST DOSE 01/03/24 Breo Ellipta 100-25 mcg/dose inhaler 1 puff, Mouth/Throat, Daily cholecalciferol (vitamin D3) 2,000 Units, oral, Daily RT dapagliflozin propanediol (FARXIGA) 10 mg, oral, Once Daily fluticasone (Flonase) 50 mcg/actuation nasal spray Every 24 hours furosemide (LASIX) 40 mg, oral, 2 times daily loratadine (Claritin) 10 mg tablet 1 tablet, oral, Daily losartan (Cozaar) 100 mg tablet 1 tablet, oral, Daily metFORMIN (GLUCOPHAGE) 500 mg, oral, 2 times daily metoprolol tartrate (LOPRESSOR) 100 mg, oral, 2 times daily montelukast (Singulair) 10 mg tablet 1 tablet, oral, Daily pantoprazole (ProtoNix) 40 mg EC tablet 1 tablet, oral, Every morning potassium chloride CR (K-Tab) 20 mEq ER tablet 20 mEq, oral, 2 times daily, Do not crush, chew, or split. Rexulti 0.5 mg, oral sertraline (Zoloft) 50 mg tablet 1 tablet, oral, Nightly Recent Labs: No visits with results within 2 Month(s) from this visit. Latest known visit with results is: Lab on 01/07/2024 Component Date Value Sodium 01/07/2024 140 Potassium 01/07/2024 4.2 Chloride 01/07/2024 98 CO2 01/07/2024 34 (H) BUN 01/07/2024 49 (H) Creatinine 01/07/2024 1.63 (H) Glucose 01/07/2024 84 Calcium 01/07/2024 9.4 Anion Gap 01/07/2024 12 eGFR 01/07/2024 32.5 (L) BUN/Creatinine Ratio 01/07/2024 30.1 Auto WBC 01/07/2024 7.68 RBC 01/07/2024 3.68 (L) Hemoglobin 01/07/2024 10.9 (L) Hematocrit 01/07/2024 35.4 (L) MCV 01/07/2024 96.2 MCH 01/07/2024 29.6 MCHC 01/07/2024 30.8 (L) RDW 01/07/2024 15.9 (H) Platelets 01/07/2024 244 I have personally reviewed and anaylzed the following laboratory results above. These findings havebeen analyzed in the context of the patient's clinical presentation. Cardiovascular Diagnostic Studies: 12 Lead ECG: No results found for this or any previous visit (from the past 4464 hour(s)). I have personally reviewed and analyzed all available cardiac diagnostic tests and imaging reports.Findings have been analyzed in the context of the patient's clinical status. Assessment and Plan #HFpEF #BL LE edema #BOSCH Volume overloaded Decompensated +2-3 LE edema BOSCH is worse, endorses with any activity Given poor dietary habits and evidence of fluid retention, elevated BP may be largely salt-related. NYHA III with overlap (she has hx of asthma which is likely a component contributing to her dyspnea) Weight today is 274 pounds ---> up almost 25 pounds from 09/09/2024 Her recent ECHO showed preserved LVEF. Previous ECHO noted mod to severely elevated right sided pressures with RVSP at 60. Recent ECHO showed improvement with mildly elevated right sided pressures with RVSP at 44. Discussed with patient and product support sales representative importance of 2L daily fluid allowance and low Na+ diet. Continue daily weights and notify office for weight gain. Pt/caregiver states understanding. - Continue furosemide 80 mg in a.m. and 40 mg in p.m. - Continue Farxiga 10mg daily - Will add spironolactone 25 mg daily ---> BMP in one week - Will check labs today including CMP CBC BNP - Encouraged daily exercise - start small and increase in duration over time #Persistent atrial fibrillation [id number] VASc = 4 HTN, age+2, female. Multiple discussions with patient regarding A.fib and management of her heart failure. We discusseda.fib ablation. She declines the procedure at this time. - Continue metoprolol tartrate 100 mg twice daily - Continue amiodarone 200 mg daily - Continue Eliquis 5mg BID #CAD Denies chest pain, no anginal symptoms Hx in 2019 non obstructive cors per cath - Continue atorvastatin 40 mg nightly #Obesity Weight today is 274 lbs -- an increase of nearly 25 lbs since 09/09/2024. According to her caregiver, the patient???s diet is extremely poor, consisting of high-sodium and high-sugar foods such as Wallisian takeout, daily cake, and salty soups. She also lacks any form of regular physical activity. - Encouraged low-sodium diet (<2,000 mg/day) per ACC/AHA heart failure and hypertension guidelines. - Encouraged small, gradual changes with caregiver support (e.g., replace soup with low-sodium broth, reduce takeout to once weekly). - Begin light physical activity as tolerated (e.g., short daily walks). #Hypertension Blood pressure today is 138/84 Mildly elevated Given poor dietary habits and evidence of fluid retention, elevated BP may be largely salt-related. - Continue losartan 100 mg daily - Continue metoprolol tartrate 100 mg twice daily - Continue Farxiga 10 mg daily #DM2 Recent hemoglobin A1c 05/05/2024 6.3% Management per PCP per pcp Patient is on metformin, Farxiga 10 mg daily (heart failure) #CKD Plan Overview: CMP, BMP, BNP today. BMP in one week. Will add spironolactone 25 mg daily Will order TTE Follow-up 6 weeks No follow-ups on file. [facility] Cardiovascular Medicine documented in this encounter Plan of Treatment Upcoming Encounters Date Type Department Care Team (Late st Contact Info) Description 03/30/2025 1:00 PM EDT Office Visit [facility] at [facility] [address] [place] [address] Kelly Lyon CNP [address] [place] [address] Scheduled Orders Name Type Priority Associated Diagnoses Orde r Schedule Complete Echo (TTE) w/wo Imaging Agent, Strain, 3D, Bubble Study Echocardiography Routine BOSCH (dyspnea on exertion) Acute heart failure with preserved ejection fraction (CMS/HCC) Expected: 02/24/2025 (Approximate), Expires: 02/24/2027 B-type natriuretic peptide Lab Routine Acute heart failure with preserved ejection fraction (CMS/HCC) Expected: 02/24/2025 (Approximate), Expires: 02/24/2026 documented as of this encounter Visit Diagnoses Diagnosis Acute heart failure with preserved ejection fraction (CMS/HCC)- Primary BOSCH (dyspnea on exertion) Other dyspnea and respiratory abnormality Bilateral lower extremity edema Obesity, unspecified class, unspecified obesity type, unspecified whether serious comorbidity present Coronary artery disease involving miccosukee coronary artery of miccosukee heart without angina pectoris documented in this encounter Care Teams Turn Down Attendant Relationship Specialty Start Date End Date Ishan Reyez MD [address] [place] [id number] PCP - General Family Medicine 06/18/23 documented as of this encounter
--- OUTSIDE RECORDS SUMMARY | 2025-03-04 12:58 | XMS_ITS | Referral Summary ---
Author Organization [facility] Address [address] [place] [address] Care Team Providers Care Electronic Equipment Trades Worker Name Role Phone Ishan Reyez MD Primary Care Provider [phone] Encounters Date Type Department Care Team Description 02/25/[address] [address] Suzette Collado MA 02/25/2025 Orders Only [address] [address] Elvin Isaac CNP 02/24/2025 2:20 PM EDT Office Visit [address] [address] Elvin Isaac CNP Acute heart failure with preserved ejection fraction (CMS/HCC) (Primary Dx); BOSCH (dyspnea on exertion); Bilateral lower extremity edema; Obesity, unspecified class, unspecified obesity type, unspecified whether serious comorbidity present; Coronary artery disease involving tribal coronary artery of tribal heart without angina pectoris 02/18/2025 Orders Only [address] [phone] ProviderIsis MD 12/15/[address] [address] Brian Alfred MD Paroxysmal atrial fibrillation (CMS/HCC) from Last 3 Months Allergies Active Allergy Reactions Criticality Noted Date Comments Bacitracin 04/25/2023 Bromelains 04/25/2023 Clarithromycin Other,Unknown 01/27/2010 Conjugated Estrogens Unknown 01/27/2010 Estrogens, Conjugated 04/25/2023 Neomycin Sulfate 04/25/2023 Pwtsvttt-Dsjucevudr-Zjtmdan in Rash Low 05/06/2019 Paclitaxel Other 08/24/2019 [...] THE MORNING 90 tablet 3 12/15/2024 Active spironolactone (Aldactone) 25 mg tabletIndications:A cute heart failure with preserved ejection fraction (CMS/HCC) Take 1 tablet (25 mg) by mouth in the morning. 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 [address] [place] [address] Kelly Lyon CNP [address] [place] [phone] Procedures Procedure Name Priority Date/Time Associated Diagnosis Comments BASIC METABOLIC PANEL Routine 02/24/2025 3:03 PM EDT B-TYPE NATRIURETIC PEPTIDE Routine 02/24/2025 10:24 AM EDT HEMOGLOBIN A1C Routine 10/28/2024 5:01 PM EST from Last 3 Months or Most Recently Relevant to Health Maintenance Results * Basic metabolic panel (02/24/2025 3:03 PM EDT) Blood Venous blood specimen / Unknown Historical Provider LAB BLOOD ORDERAB LES * B-type natriuretic peptide (02/24/2025 10:24 AM EDT) Blood Venous blood specimen / Unknown Elvin Isaac CNP LAB BLOOD ORDERABLES * Hemoglobin A1c (10/28/2024 5:01 PM EST) Blood Venous blood specimen / Unknown Historical Provider LAB BLOOD ORDERAB LES from Last 3 Months or Most Recently Relevant to Health Maintenance Advance Directives * Full Code (Latest Code Status on File) Date Activated Date Inactivated Comments 10/31/2023 8:36 AM 10/31/2023 11:10 AM Care Teams Electronic Equipment Trades Worker Relationship Specialty Start Date End Date Ishan Reyez MD [address] [place] [address] PCP - General Family Medicine 06/18/23
--- OUTSIDE RECORDS SUMMARY | 2025-03-04 12:58 | XMS_ITS | Patient Health Record ---
Author Organization [facility] es Address [address] [place] [address] Care Team Providers Care Motel Operator Name Role Phone Ulisses Garay Primary Care Provider [phone] Allergies Allergen (clinical drug ingredient) Drug/Non Drug Allergy documented on EMR Reaction Allergy Type Onset Date Status Penicillin Unknown Drug Allergy Active Substance with sulfonamide structure and antibacterial mechanism of action (substance) Sulfa Antibiotics Unknown Drug Allergy Active Reason For Referral No Information Medications Medication SIG (Take, Route, Frequency, Duration) Notes Start Date End Date Status Sertraline HCl 50 MG 1 tablet Orally Onc e a day Active Atorvastatin Calcium 40 MG 1 tablet Oral ly Once a day Active Compazine Active Apixaban 5 MG 1 tablet Orally Twic e a day Active Dapagliflozin Propanediol 5 MG 1 tablet Orally Once a day Active Tiotropium [place] Monohydrate 1.25 MCG/ACT 2 puffs Inhalation Once a day Active Cholecalciferol 25 MCG (1000 UT) 1 capsule Orally Once a day Active Potassium Chloride CR Active predniSONE 20 MG 1 tablet Orally Once a day Active Albuterol Sulfate 108 (90 Base) MCG/ACT 1 puff as needed Inhalation every 4 hrs Active prednisoLONE Acetate 1 % 1 drop into aff ected eye Ophthalmic Twice a day Active Gatifloxacin 0.5 % 1 drop into affected eye Ophthalmic Twice a day Active Fluticasone Propionate 50 MCG/ACT 1 spray in each nostril Nasally Once a day Active Fasenra Pen 30 MG/ML as directed Subcutaneous Active Furosemide 20 MG 1 tablet Orally Once a day Active Advair Diskus 500-50 MCG/ACT 1 puff Inha lation Twice a day Active Losartan Potassium 100 MG 1 tablet Orall y Once a day Active Loratadine 10 MG 1 tablet Orally Once a day Active Metoprolol Tartrate 50 MG 1 tablet with food Orally Twice a day Active metFORMIN HCl 500 MG 1 tablet with a rex l Orally Once a day Active Acular 0.5 % 1 drop into affected eye as needed Ophthalmic Four times a day Active Ipratropium-Albuterol 0.5-2.5 (3) MG/3ML 3 mL as needed Inhalation every 6 hrs Active Multivitamin Adults 50+ - as directed Orally Active Montelukast Sodium 10 MG 1 tablet Orally Once a day Active Pantoprazole Sodium 40 MG 1 tablet Orall y Once a day Active Ondansetron 8 MG 1 tablet on the tong ue and allow to dissolve as needed Orally Once a day Active Plan Of Treatment No Information Insurance Providers Payer Name Payer Address Payer Phone Subscriber Number Group Number Insured Name Patient Relationship to Insured Coverage Start Date Coverage End Date [place] [address] [place] [address] [id number] RUBI SALOMON Self - patient is the insured 9 [place] [address] [place] [address] [phone] [id number] RUBI SALOMON Self - patient is the insured 2 DENTAL [place] [address] [place] [address] [phone] [id number] RUBI SALOMON Self - patient is the insured 2
--- OUTSIDE RECORDS SUMMARY | 2025-03-04 12:58 | XMS_ITS | Encounter Summary ---
Author Organization The [facility] Address [address] [place] [address] Care Team Providers Care Financial Developer Name Role Phone Ishan Reyez MD Primary Care Provider [phone] Encounter Details Date Type Department Care Team (Late st Contact Info) Description 02/25/2025 Telephone [facility] [address] [place] [address] Suzette Collado MA Social History Tobacco Use Types Packs/Day Years [...] PM EDT documented as of this encounter Miscellaneous Notes * Telephone Encounter - Suzette Collado MA - 02/25/2025 1:11 PM EDT Kar Bradford, Juan add spironolactone for this pt and ordered a BMP for one week. Can you give caregiver a call tomorrow and let her know? Thanks! Patient's caregiver made aware. She will bring her for lab drawn in 1 week. documented in this encounter Plan of Treatment Upcoming Encounters Date Type Department Care Team (Late st Contact Info) Description 03/30/2025 1:00 PM EDT Office Visit [facility] [address] [place] [phone] Kelly Lyon, SEA SHELL GATHERER [address] [place] [phone] Scheduled Orders Name Type Priority Associated Diagnoses Orde r Schedule Basic metabolic panel Lab Routine Acute combined systolic and diastolic heart failure (CMS/HCC) Expected: 02/25/2025 (Approximate), Expires: 02/25/2026 documented as of this encounter Visit Diagnoses Diagnosis Acute combined systolic and diastolic heart failure (CMS/HCC) Acute combined systolic and diastolic heart failure documented in this encounter Care Teams Financial Developer Relationship Specialty Start Date End Date Ishan Reyez MD [address] [place] [id number] PCP - General Family Medicine 06/18/23 documented as of this encounter
--- OUTSIDE RECORDS SUMMARY | 2025-03-04 12:58 | XMS_ITS | Clinical Summary ---
Author Organization [employer] s tem Address [id number] [address] [place] [address] Care Team Providers Care Solid State Tester Name Role Phone MandeepEvy crandall Alfredo VENCES-SECURITY DIRECTOR Primary Care Provider [phone] Allergies Active Allergy Reactions Criticality Noted Date Comments Clarithromycin Other (See Comments) 01/27/2010 Ogkkonit-Nyilegfirz-Fczezst in Rash Low 05/06/2019 Peanut Anaphylaxis High [...] stage from 05/07/2019: pT1c, pN2a, cM0, ER-, GA-, HER2+ - Unsigned Immunizations Immunization Administration Dates [...] history exists Medical Devices Implanted Type Area Party Plan Sales Unit Advisor Device Identifier Shelf Expiration Date Model / Serial / Lot Lens Iol Ultrasert 23.0d - [id number] - [id number] Implanted:Qty: 1 on 06/28/2022 by Rosa Elena Lewis MD at [facility] Lens Left: Eye [employer] 02/06/2025 [id number] 23.0 / [id number] / NA Lens Iol Ultrasert 23.5d - [id number] - [id number] Implanted:Qty: 1 on 11/01/2022 by Rosa Elena Lewis MD at [facility] Lens Right: Eye [employer] 04/28/2025 [id number] 23.5 / [id number] 2 / NA Insurance [place] [address] Care Teams Solid State Tester Relationship Specialty Start Date End Date Evy Kaufman, RU-SECURITY DIRECTOR [address] [place] [address] PCP - General Nurse Practitioner 11/27/23
--- OUTSIDE RECORDS SUMMARY | 2025-03-04 12:58 | XMS_ITS ---
Author Organization [facility] Address [id number] [address] [place] [address] Care Team Providers Care Console Operator Name Role Phone Evy Kaufman APRN-MANAGER FURNITURE Primary Care Provider [phone] Active Problems Problem Noted Date Diagnosed Date Carcinoma of lower-outer wanda drant of right breast in female, estrogen receptor negative 05/07/2019 Cancer Staging:Pathologic stage from 05/07/2019: pT1c, pN2a, cM0, ER-, TX-, HER2+ - Unsigned Current Treatment and Therapy [...]
--- OUTSIDE RECORDS SUMMARY | 2025-03-04 12:58 | XMS_ITS | Patient Health Record ---
Author Organization [facility] Address [address] [place] [address] Care Team Providers Care Marketing Automation Specialist Name Role Phone Ishan Reyez Primary Care Provider UnavailJason Ruffin Unavailable [phone] Eulalia Garcia Unavailable [phone] Allergies Allergen (clinical drug ingredient) Drug/Non Drug Allergy documented on EMR Reaction Allergy Type Onset Date Status Bromelains bromelains (uncoded) Unknown Allergy Active clarithromycin clarithromycin Unknown Drug Allergy Active conjugated estrogens Unknown Drug Allergy Active bacitracin bacitracin Unknown Drug Allergy Activ e sulfur hexafluoride Unknown Drug Allergy Active peanut allergen extract Unknown Drug Allergy Active Results Component Value Reference Range Notes SCC- SHOULDER 3 VIEW LEFT 73 030 Reviewed date:10/21/2024 02:16:11 PM Interpretation: Performing Lab: Notes/Report: Reason For Referral No Information Social History Tobacco Use: Social History Observation Description Date Details (start date - stop date) Never Smoker NA - NA AUDIT-C (Standard) Question Answer Notes Did you have a drink containing alcohol in the p ast year? No Points 0 Interpretation Negative Tobacco Control (Standard) Question Answer Notes Tobacco use: Nonsmoker Problems Problem Type SNOMED Code ICD Code Onset Dates Problem Status W/U Status Risk Notes Problem 155814434 Other nondisplaced fracture of upper end of left humerus, subsequent encounter for fracture with routine healing (S42.295D) Active confirmed Problem 43790910 Other closed nondisplaced fracture of proximal end of left humerus, initial encounter (S42.295A) Active confirmed Vital Signs Height 5'8 in 05/11/2024 Weight 271 lbs 05/11/2024 BMI 41.2 05/11/2024 Encounters Encounter Location Date Provider Diagnosis [facility] [address] [place] [place] [address] [place] [address] 04/27/2024 Jason Oliva Other closed nondisplaced fracture of proximal end of left humerus, initial encounter S42.295A [facility] [address] [place] [place] [address] [place] [address] 05/11/2024 Eulalia Garcia Other closed nondisplaced fracture of proximal end of left humerus, initial encounter S42.295A [facility] [address] [place] [place] [address] [place] [address] 06/08/2024 Eulalia Garcia Other closed nondisplaced fracture of proximal end of left humerus, initial encounter S42.295A [facility] [address] [place] [place] [address] [place] [address] 07/06/2024 Eulalia Garcia Other nondisplaced fracture of upper end of left humerus, subsequent encounter for fracture with routine healing S42.295D [facility] [address] [place] [address] [place] [address] 08/17/2024 Eulalia Garcia Other nondisplaced fracture of upper end of left humerus, subsequent encounter for fracture with routine healing S42.295D Assessments Encounter Date Diagnosis (ICD Code) Assessment Notes Treatment Notes Treatment Clinical Notes Section Notes 04/27/2024 Other closed nondisplaced fracture of proximal end of left humerus, initial encounter (ICD-10 - S42.295A) 05/11/2024 Other closed nondisplaced fracture of proximal end of left humerus, initial encounter (ICD-10 - S42.295A) 06/08/2024 Other closed nondisplaced fracture of proximal end of left humerus, initial encounter (ICD-10 - S42.295A) 07/06/2024 Other nondisplaced fracture of upper end of left humerus, subsequent encounter for fracture with routine healing (ICD-10 - S42.295D) 08/17/2024 Other nondisplaced fracture of upper end of left humerus, subsequent encounter for fracture with routine healing (ICD-10 - S42.295D) 04/27/2024 Other We will treat her proximal humerus fracture conservatively. She will follow-up in 2 weeks to repeat x-rays and reassess her progress. Import medication 05/11/2024 Other Today I removed the patient's posterior long-arm splint. There was some closed wounds on the radial and ulnar side of her wrist from the splint that I instructed her caregiver to inform the home health nurse about. I recommended staying in the sling for another 4 weeks and to really start to work on finger and thumb range of motion given her hand swelling. We will see her back in 4 weeks to repeat x-rays and reassess her progress. 06/08/2024 Other I will have the patient continue to wear the sling for another 2 weeks and continue to work on elbow and wrist/hand range of motion. She can discontinue the sling in 2 weeks and start to work on gentle shoulder range of motion. We will see her back in 4 weeks to repeat x-rays and reassess her progress. 07/06/2024 Other Patient is now approximately 2+ months out from injury and doing well and is back to close to her baseline and completing her ADLs. We will see her back in 6 weeks with repeat x-rays and to reassess her progress. 08/17/2024 Other Patient is doin g well and mostly her complaints sound more consistent with her severe glenohumeral arthritis. She is on Eliquis so can only take Tylenol. We discussed that she should keep working on range of motion, but she can come back and see us on an as-needed basis. Plan Of Treatment Pending Test Test Name Order Date SCC- SHOULDER 3 VIEW LEFT 34717 05/11/20 24 SCC- SHOULDER 3 VIEW LEFT 59567 07/06/20 24 SCC- SHOULDER 3 VIEW LEFT 95161 06/08/20 24 Insurance Providers Payer Name Payer Address Payer Phone Subscriber Number Group Number Insured Name Patient Relationship to Insured Coverage Start Date Coverage End Date [employer] Medicare [address] [address] [place] [address] [id number] RUBI SALOMON Self - [facility] [address] [place] [address] [id number] RUBI SALOMON Self - patient is the insured Medical (General) History Medical History History ICD Code Asthma Cancer Respiratory problems: Heart problems: Mental Illness: High Blood Pressure Anxiety Sleep apnea CPAP
--- OUTSIDE RECORDS SUMMARY | 2025-03-04 12:58 | XMS_ITS | Encounter Summary ---
Author Organization [facility] Address [address] [place] [address] Care Team Providers Care Mail Clerks Supervisor Name Role Phone Hortensia Landeros MD Primary Care Provider [phone] Samantha Benitez APRN.BOX TOE CEMENTER Unavailable [phone] Chary Cornelius RN Unavailable [phone] Reginald Aragon MD Unavailable [phone] Source Comments In the event this information is protected by the Federal Confidentiality of Alcohol and Drug AbusePatient Records regulations: The Federal rules restrict any use of the information to criminally investigate or prosecute any alcohol or drug abuse patient.[facility] Encounter Details Date Type Department Care Team [...] on filedocumented in this encounter Care Teams Mail Clerks Supervisor Relationship Specialty Start Date End Date Hortensia Landeros MD [address] [place] [address] PCP - General Family Medicine 03/11/19 Samantha Benitez APRN.BOX TOE CEMENTER [address] [place] [address] Physician Transition Manager Hematology/Oncology 04/27/19 Chary Cornelius, DILCIA [address] [place] [address] Specialty Box Toe Flanger [place] Hematology/Oncology 05/14/19 01/31/21 Reginald Aragon MD [address] [place] [address] [place] [address] Physician Hematology/Oncology 12/07/19 documented as of this encounter
--- OUTSIDE RECORDS SUMMARY | 2025-03-04 12:58 | XMS_ITS | Encounter Summary ---
Author [facility] Address [id number] [address] [place] [address] Care Team Providers Care Bakery Machine Mechanic Name Role Phone Evy Kaufman Primary Care Provider [phone] Encounter Details Date Type Department Care Team (Late st Contact Info) Description 09/17/2019 Social Work [facility] - Radiation Oncology [address] [place] [address] Steff Martin LSW Social History Tobacco Use [...] on filedocumented in this encounter Care Teams Bakery Machine Mechanic Relationship Specialty Start Date End Date Evy Kaufman APRN-CNP [address] [place] [address] PCP - General Nurse Practitioner 11/27/23 documented as of this encounter
--- OUTSIDE RECORDS SUMMARY | 2025-03-04 12:58 | XMS_ITS | Clinical Summary ---
Author Organization [facility] Address [address] [place] [address] Care Team Providers Care Computer Equipment Installer Name Role Phone Evy Kaufman MD Unavailable Ishan Reyez MD Primary Care Provider [phone] Allergies Active Allergy Reactions Criticality Noted Date [...] EDT Clinical Support [facility] [address] [facility] [address] [place] [address] Deann Hoffman, [facility] [address] [place] [address] 03/31/2025 1:10 PM EDT Office Visit [facility] [address] [facility] [address] [place] [address] Trinidad Simmons MD [address] [facility] [address] [place], [place] [id number] Health Maintenance Due Date Last Done Comments Influenza Vaccine Completed 06/24/2024, , 07/11/2022, Additional history exists Pneumococcal Vaccine: 65+ Years Completed 06/24/2024, 07/21/2019, 06/26/2018, Additional history [place] [address] MEDICAID [place] Care Teams Computer Equipment Installer Relationship Specialty Start Date End Date Ishan Reyez MD [address] [place] [id number] PCP - General Family Medicine 12/22/24 Evy Kaufman MD [address] [place] [address] Referring Physician Family Medicine 02/11/24
--- OUTSIDE RECORDS SUMMARY | 2025-03-04 12:58 | XMS_ITS | Patient Health Record ---
Author Organization [facility] [place] Address [address] [place] [address] Care Team Providers Care Assistant Store Manager Operations Name Role Phone Evy Proctor Primary Care Provider Unavail Ravinder Varela Unavailable [phone] Allergies Allergen (clinical drug ingredient) Drug/Non Drug Allergy documented on EMR Reaction Allergy Type Onset Date Status Pineapple Flavor Unknown Drug Allergy Active Shellfish (FN) Shellfish-derived Products Unknown Drug Allergy Active Substance with sulfonamide structure and antibacterial mechanism of action (substance) Sulfa Antibiotics Unknown Drug Allergy Active clarithromycin Clarithromycin Unknown Drug Allergy Active Penicillin Unknown Drug Allergy Active Reason For Referral No Information Medications Medication SIG (Take, Route, Frequency, Duration) Notes Start Date End Date Status Montelukast Sodium 10 MG 1 tablet Oral Q D for 90 days Active Spironolactone 25 MG Oral for 30 Days Active Farxiga 10 MG Oral for 30 Days Active Sertraline HCl 50 MG Oral for 90 Days Active Eliquis 5 MG TAKE 1 TABLET BY THOMAS TH TWICE DAILY Oral for 90 Days Active Pantoprazole Sodium 20 MG TAKE 1 TABLET BY MOUTH EVERY DAY Oral for 90 Days Active Albuterol Sulfate HFA 108 (90 Base) MCG/ACT 2 puffs as needed for SOB Inhalation Q4H for 30 days Active Atorvastatin Calcium 40 MG Oral for 90 Days Active ARIPiprazole 15 MG TAKE 1/2 TABLET BY M OUTH EVERY DAY Oral for 30 Days Active Fasenra Pen 30 MG/ML as directed Subcuta neous Q8W Active Breo Ellipta 100-25 MCG/ACT 1 puff Inhalation QD for 90 days Rinse after use 09/09/2023 Active Metoprolol Tartrate 100 MG Oral for 90 Days Active metFORMIN HCl 500 MG Oral for 90 Days Active Losartan Potassium 100 MG Oral for 90 Days Active Loratadine 10 MG TAKE 1 TABLET BY THOMAS TH EVERY DAY Oral for 90 Days Active Furosemide 20 MG TAKE 2 TABLETS BY MO UTH DAILY Oral for 90 Days Active Mucinex 600 MG 1-2 tablets as neede d for cough or congestion Orally BID for 30 days 07/08/2024 Active Fluticasone Propionate 50 MCG/ACT SHAKE LIQUID AND USE 2 SPRAYS IN EACH NOSTRIL DAILY Nasal for 90 Days Active Boostrix 5-2.5-18.5 LF-MCG/0.5 as directed Intramuscular once for 1 days 07/08/2024 Active Ipratropium-Albuterol 0.5-2.5 (3) MG/3ML 3mL Inhalation QID for 90 days Active Immunizations Vaccine Route Administration Date Status Comme nts Arexvy Unknown 06/24/2024 Administered Flu, Fluad (32357) 65 yrs + High Dose Seasonal (7881-5486) Unknown 06/24/2024 Administered Pneumococcal (Prevnar 20) Unknown 06/24/2024 Administer ed Spikevax Moderna Syringe Pre -Filled 50 mcg/0.5 mL Unknown 06/24/2024 Administered Zoster (Zostavax) Unknown 10/09/2015 Administered Social History Tobacco Use: Social History Observation Description Date Details (start date - stop date) Never Smoker NA - NA Tobacco Use/Smoking Question Answer Notes Patient is a nonsmoker Additional Findings: Tobacco Non-User Never chew ed tobacco Tobacco Control (Standard) Question Answer Notes Tobacco use: Nonsmoker Problems Problem Type SNOMED Code ICD Code Onset Dates Problem Status W/U Status Risk Notes Problem Disorder of fluid AND/OR electrolyte (12027996) Other disorders of electrolyte and fluid balance, not elsewhere classified (E87.8) Active confirmed Elevated sweat chloride test without cystic fibrosis Problem Chronic respiratory failure (36282491) Chronic respiratory failure with hypoxia (J96.11) Active confirmed Problem Long-term 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 steroid (296505165) termite inspector (current) use of inhaled steroids (Z79.51) Active confirmed Problem Morbid obesity (309236164) Morbid obesity (E66.01) Active confirmed Problem Diabetes mellitus type 2 (disorder) (39576968) DM2 (diabetes mellitus, type 2) (E11.9) Active confirmed Problem Intellectual disability (452203626) Intellectual disability (F79) Active confirmed Problem Iron deficiency anemia (41404505) NETTIE (iron deficiency anemia) (D50.9) Active confirmed Problem Severe persistent asthma (375506341) Severe persistent asthma (J45.50) Active confirmed Problem Peripheral eosinophilia (D72.19) Active confirmed Vital Signs Heart Rate 84 /min 07/08/2024 Temperature 95.9 degrees Fahrenheit 07/08/2024 Respiratory Rate 18 /min 07/08/2024 Oximetry 98 % 07/08/2024 Blood pressure diastolic 75 mm Hg 07/08/2024 Height 68 in 07/08/2024 Blood pressure systolic 116 mm Hg 07/08/2024 Weight 263.0 lbs 07/08/2024 BMI 39.98 kg/m2 07/08/2024 Encounters Encounter Location Date Provider Diagnosis Pulmonary Medicine [address] [address] 05/19/2024 [facility] [address] [place] [address] 05/26/2024 [facility] [place] [address] [place] [address] 06/04/2024 [facility] [place] [address] [place] [address] 07/21/2024 [facility] [address] [place] [address] 07/08/2024 [facility] Severe persistent asthma J45.50 ; Peripheral eosinophilia D72.19 ; Chronic respiratory failure with hypoxia J96.11 ; Intellectual disability F79 ; Encounter for immunization Z23 ; Other disorders of electrolyte and fluid balance, not elsewhere classified E87.8 ; DM2 (diabetes mellitus, type 2) E11.9 ; termite inspector (current) use of inhaled steroids Z79.51 and [...] as needed for cough or chest congestion. Iocj-jz-irwb encounter performed with the patient to document [...] I recommend continuing using the nebulizer. Her detention is needing some supplies for her nebulizer, [...] respiratory failure with hypoxia (ICD-10 - J96.11) Iruf-to-earo encounter performed with the patient to document [...] as she thought she was at the interlocking machine operator's office. She may need a neurocognitive evaluation [...] to manage diabetes in this situation. 07/08/2024 USP (current) use of inhaled steroids (ICD-10 - Z79.51) Patient was counseled to rinse & gargle with water after inhaled corticosteroid use. 07/08/2024 Morbid obesity (ICD-10 - E66.01) Patient's weight is inducing a restrictive pulmonary physiology. Weight loss indicated: Decrease calories, increase activity. Plan Of Treatment Next Appt Details Provider Name:Ravinder Castellon, 07/13/2025 02:00:00 PM, [address] [place], [address], Insurance Providers Payer Name Payer Address Payer Phone Subscriber Number Group Number Insured Name Patient Relationship to Insured Coverage Start Date Coverage End Date MEDICARE RAILROAD [address] [address] [place], [place] [id number] Kaylie Resendiz Self - patient is the insured 9 MEDICAID [place] 2ND INS [address] [facility] [place] [id number] Kaylie Resendiz Self - patient is the insured 3 Medical (General) History Medical History History ICD Code Severe persistent asthma J45.50 Chronic respiratory failure with hypoxia J96.11 NETTIE (iron deficiency anemia) D50.9 PAF (paroxysmal atrial fibrillation) I48 .0 Intellectual disability F79 Other disorders of electrolyte and fluid balance, not elsewhere classified E87.8 GERD (gastroesophageal reflux disease) K 21.9 HTN (hypertension) I10 DM2 (diabetes mellitus, type 2) E11.9 OA (osteoarthritis) M19.90 CAD (coronary artery disease) I25.10 Congestive heart failure wit h preserved left ventricular function, NYHA class 3 I50.30 HLD (hyperlipidemia) E78.5 Cancer of right breast C50.911 Peripheral eosinophilia D72.19 Morbid obesity E66.01 USP (current) use of inhaled stero ids Z79.51 History of non-ST elevation myocardial i nfarction (NSTEMI) I25.2 Surgical History Surgery Date(Month/Year) Cardiac catheterization 01/16/2019 cataract removal-bilateral right mastectomy portacath placement/removal Hospitalization History Reason Date(Month/Year) Asthma exacerbation causing NSTEMI 9
--- OUTSIDE RECORDS SUMMARY | 2025-03-04 12:58 | XMS_ITS | Clinical Summary ---
Author Organization [facility] Address [address] [place] [address] Care Team Providers Care Kennel Assistant Name Role Phone Ishan Reyez MD Primary Care Provider [phone] Allergies Active Allergy Reactions Criticality Noted Date Comments Bacitracin 04/25/2023 Bromelains 04/25/2023 Clarithromycin Other,Unknown 01/27/2010 Conjugated Estrogens Unknown 01/27/2010 Estrogens, Conjugated 04/25/2023 Neomycin Sulfate 04/25/2023 Qbakncve-Yujznofhaq-Pbujyfe in Rash Low 05/06/2019 Paclitaxel Other 08/24/2019 [...] Electrolyte and fluid disorder 09/17/2023 1 11/18/2022 termite treater helper 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 steroid 023 09/17/2023 [...] Assessment & Plan (05/21/2023 2:02 PM EDT): [id number] VASc= 4 HTN, age, female Continue anticoagulation [...] Type Department Care Team Description 02/25/2025 Telephone [facility] [address] [facility] [place] [address] Suzette Collado MA 02/25/2025 Orders Only [facility] [address] [facility] [place] [address] Elvin Isaac CNP 02/24/2025 2:20 PM EDT Office Visit [facility] [address] [facility] [place] [address] Elvin Isaac CNP Acute heart failure with preserved ejection fraction (CMS/HCC) (Primary Dx); BOSCH (dyspnea on exertion); Bilateral lower extremity edema; Obesity, unspecified class, unspecified obesity type, unspecified whether serious comorbidity present; Coronary artery disease involving aniak coronary artery of aniak heart without angina pectoris 02/18/2025 Orders Only [facility] [address] [facility] [place] [address] Provider, MD Isis 12/15/2024 Refill [facility] [address] [facility] [place] [address] Brian Alfred MD Paroxysmal atrial fibrillation (CMS/HCC) [...] Heart failure Mother Relation Name Status Comments Father Mother Social History Tobacco Use Types Packs/Day [...] Description 03/30/2025 1:00 PM EDT Office Visit [facility] [address] [place] [address] Kelly Lyon, APPLIANCE REPAIR TECHNICIAN [address] [place] [address] Health Maintenance Due Date Last Done Comments [...] 8:36 AM 10/31/2023 11:10 AM Care Teams Kennel Assistant Relationship Specialty Start Date End Date Ishan Reyez MD [address] [place] [address] PCP - General Family Medicine 06/18/23
--- OUTSIDE RECORDS SUMMARY | 2025-03-04 12:58 | XMS_ITS | Encounter Summary ---
Author Organization [facility] Address [address] [place] [address] Care Team Providers Care Tire Stripper Name Role Phone Ishan Reyez MD Primary Care Provider [phone] Encounter Details Date Type Department Care Team (Late st Contact Info) Description 02/18/2025 Orders Only [place] [address] [place] [address] Provider, MD Isis [address] [place] [address] Social History Tobacco Use Types Packs/Day Years [...] Description 03/30/2025 1:00 PM EDT Office Visit [facility] [address] [place] [address] Kelly Lyon, GEAR REPAIRER [address] [place] [address] documented as of this encounter Procedures Procedure Name Priority Date/Time Associated Diagnosis Comments TSH Routine 10/28/2024 5:01 PM EST HEMOGLOBIN A1C Routine 10/28/2024 5:01 PM EST LIPID PANEL Routine 10/28/2024 5:01 PM EST documented in this encounter Results * Hemoglobin A1c (10/28/2024 5:01 PM EST) Blood Venous blood specimen / Unknown Historical Provider LAB BLOOD ORDERAB LES * Lipid panel (10/28/2024 5:01 PM EST) Blood Venous blood specimen / Unknown Historical Provider LAB BLOOD ORDERAB LES * TSH (10/28/2024 5:01 PM EST) Blood Venous blood specimen / Unknown Historical Provider LAB BLOOD ORDERAB LES documented in this encounter Visit Diagnoses Not on filedocumented in this encounter Care Teams Tire Stripper Relationship Specialty Start Date End Date Ishan Reyez MD [address] [place] [address] PCP - General Family Medicine 06/18/23 documented as of this encounter
--- OUTSIDE RECORDS SUMMARY | 2025-03-04 12:58 | XMS_ITS | Encounter Summary ---
Author Organization [facility] Address [address] [place] [address] Care Team Providers Care Beam Dyer Name Role Phone Ishan Reyez MD Primary Care Provider [phone] Encounter Details Date Type Department Care Team (Late st Contact Info) Description 02/25/2025 Orders Only [address] [address] Elvin Isaac, EMBROIDERY ASSISTANT [address] [place] [address] Social History Tobacco Use Types Packs/Day Years [...] 03/30/2025 1:00 PM EDT Office Visit [facility] [address] [place] [address] Kelly Lyon CNP [address] [place] [address] documented as of this encounter Procedures Procedure Name Priority Date/Time Associated Diagnosis Comments BASIC METABOLIC PANEL Routine 02/24/2025 3:03 PM EDT B-TYPE NATRIURETIC PEPTIDE Routine 02/24/2025 10:24 AM EDT documented in this encounter Results * Basic metabolic panel (02/24/2025 3:03 PM EDT) Blood Venous blood specimen / Unknown Historical Provider MD LAB BLOOD ORDERAB LES * B-type natriuretic peptide (02/24/2025 10:24 AM EDT) Blood Venous blood specimen / Unknown Elvin Isaac CNP LAB BLOOD ORDERABLES documented in this encounter Visit Diagnoses Not on filedocumented in this encounter Care Teams Beam Dyer Relationship Specialty Start Date End Date Ishan Reyez MD [address] [place] [address] PCP - General Family Medicine 06/18/23 documented as of this encounter
--- OUTSIDE RECORDS SUMMARY | 2025-03-04 12:59 | XMS_ITS | Encounter Summary ---
Author Organization [facility] Address [address] [place] [address] Care Team Providers Care Construction Trades Contractor Name Role Phone Ishan Reyez MD Primary Care Provider [phone] Reason for Visit * Reason Comments Med Refill Encounter Details Date Type Department Care Team (Late st Contact Info) Description 12/24/[address] [address] Brian Alfred MD [address] [place] [address] Paroxysmal atrial fibrillation (CMS/HCC) Social [...] Office Visit [facility] [address] [place] [address] Kelly Lyon, HANDBOOK WRITER [address] [place] [address] documented as of this encounter Visit Diagnoses Diagnosis Paroxysmal atrial fibrillation (CMS/HCC) Atrial fibrillation documented in this encounter Care Teams Construction Trades Contractor Relationship Specialty Start Date End Date Ishan Reyez MD [address] [place] [address] PCP - General Family Medicine 06/18/23 documented as of this encounter
--- OUTSIDE RECORDS SUMMARY | 2025-03-04 12:59 | XMS_ITS ---
Author Organization [facility] Address [address] [place] [address] Care Team Providers Care Distribution Lineman Name Role Phone Hortensia Landeros MD Primary Care Provider [phone] Samantha Benitez PICTURE COPYIST.DAY CARE SUPERVISOR Unavailable [phone] Reginald Aragon MD Unavailable [phone] Active Problems Problem Noted Date Diagnosed Date [...]
--- OUTSIDE RECORDS SUMMARY | 2025-03-04 12:59 | XMS_ITS | Encounter Summary ---
Author Organization [facility] Address [address] [place] [address] Care Team Providers Care Silk Screen Etcher Name Role Phone Ishan Reyez MD Primary Care Provider [phone] Reason for Visit * Reason Comments Med Refill Encounter Details Date Type Department Care Team (Late st Contact Info) Description 06/18/2023 Refill [place] [address] [place] [address] Martir Aldridge MD [address] [place] [address] Longstanding persistent atrial fibrillation (CMS/HCC) Social History [...] Description 03/30/2025 1:00 PM EDT Office Visit [facility] [address] [place] [address] Kelly Lyon CNP [address] [place] [address] documented as of this encounter Visit Diagnoses Diagnosis Longstanding persistent atrial fibrillation (CMS/HCC) documented in this encounter Care Teams Silk Screen Etcher Relationship Specialty Start Date End Date Ishan Reyez MD [address] [place] [address] PCP - General Family Medicine 06/18/23 documented as of this encounter
--- OUTSIDE RECORDS SUMMARY | 2025-03-04 12:59 | XMS_ITS | Encounter Summary ---
Author Organization [employer] [facility] [employer] Address [id number] [address] [place] [address] Care Team Providers Care Family Practice Physician Assistant Name Role Phone Evy Kaufman APRN-SUPERVISOR STATEMENT CLERKS Primary Care Provider [phone] Encounter Details Date Type Department Care Team (Late st Contact Info) Description 07/11/2020 Abstract [facility] Oncology - Radiation Oncology [address] [place] [address] Ruthann Jarrett RMA Social History Tobacco Use [...] on filedocumented in this encounter Care Teams Family Practice Physician Assistant Relationship Specialty Start Date End Date Evy Kaufman, COMPUTER SYSTEMS DESIGNER-SUPERVISOR STATEMENT CLERKS [address] [place] [address] PCP - General Nurse Practitioner 11/27/23 documented as of this encounter
--- OUTSIDE RECORDS SUMMARY | 2025-03-04 12:59 | XMS_ITS | Clinical Summary ---
Author Organization [facility] Address [address] [place] [address] Care Team Providers Care Electrical Experimental Mechanic Name Role Phone Hortensia Landeros MD Primary Care Provider [phone] Samantha Benitez APRN.TRANSMISSION MAINTENANCE SUPERVISOR Unavailable [phone] Reginald Aragon MD Unavailable [phone] Allergies Active Allergy Reactions Criticality Noted Date Comments Clarithromycin Unknown 01/27/2010 Conjugated Estrogens Unknown 01/27/2010 Ilnnlzsq-Ndrvaczugv-Phdi myxin Rash 05/06/2019 Paclitaxel Other: See Comments [...] is lower risk 6 03/14/2023 Data from: https://www.neighborhoodatlas.medicine.[facility].edu/. Last address used for calculation Umer [...] - 8.0 g/dL 07/30/2024 2:[address] [facility] Albumin 4.0 3.9 - 4.9 g/dL 07/30/2024 2:[address] [facility] Calcium, Total 9.3 8.5 - 10.2 mg/dL 07/30/2024 2:[address] [facility] Bilirubin, Total 0.4 0.2 - 1.3 mg/dL 07/30/2024 2:[address] [facility] Alkaline Phosphatase 95 34 - 123 U/L 07/30/2024 2:[address] [facility] AST 21 13 - 35 U/L 07/30/2024 2:[address] [facility] ALT 19 7 - 38 U/L 07/30/2024 2:[address] [facility] Glucose 83 74 - 99 mg/dL 07/30/2024 2:[address] [facility] Comment: The [place] Diabetes Association (ADA) provides guidance for cutoff [...] Standards of Medical Care in Diabetes 2016, [place] Diabetes Association. Diabetes Care. 2016.39(Suppl 1). BUN 54(H) 7 - 21 mg/dL 07/30/2024 2:[address] [facility] Creatinine 1.41(H) 0.58 - 0.96 mg/dL 07/30/2024 2:[address] [facility] Sodium 141 136 - 144 mmol/L 07/30/2024 2:[address] [facility] Potassium 4.3 3.7 - 5.1 mmol/L 07/30/2024 2:[address] [facility] Chloride 100 98 - 107 mmol/L 07/30/2024 2:[address] [facility] CO2 31(H) 22 - 30 mmol/L 07/30/2024 2:[address] [facility] Anion Gap 10 8 - 15 mmol/L 07/30/2024 2:[address] [facility] Estimated Glomerular Filtration Rate 39(L) >=60 mL/min/1. 73m 07/30/2024 2:[address] [facility] Comment:Estimated Glomerular Filtration Rate (eGFR) [...] EDT Reginald Aragon MD LABORATORY Final Result [facility] [address] [place] [address] from Last 3 Months or Most Recently Relevant to Health Maintenance Insurance MEDICARE MEDICAID [place] MEDICARE RAILROAD Care Teams Electrical Experimental Mechanic Relationship Specialty Start Date End Date Hortensia Landeros MD [address] [facility] [place] [address] PCP - General Family Medicine 03/11/19 Samantha Benitez APRN.CNP [address] [place] [address] Physician Petroleum Analyst Hematology/Oncology 04/27/19 Reginald Aragon MD [address] [place] [address] Physician Hematology/Oncology 12/07/19
--- OUTSIDE RECORDS SUMMARY | 2025-03-04 12:59 | XMS_ITS | Encounter Summary ---
Author Organization [facility] Address [address] [place] [address] Care Team Providers Care Pack Mule Worker Name Role Phone Ishan Reyez MD Primary Care Provider [phone] Reason for Visit * Reason Comments Med Refill Encounter Details Date Type Department Care Team (Late st Contact Info) Description 11/29/[address] [address] Brian Alfred MD [address] [place] [address] Paroxysmal atrial fibrillation (CMS/HCC) Social [...] Description 03/30/2025 1:00 PM EDT Office Visit [facility] [address] [place] [address] Kelly Lyon, SIGN DESIGNER [address] [place] [address] documented as of this encounter Visit Diagnoses Diagnosis Paroxysmal atrial fibrillation (CMS/HCC) Atrial fibrillation documented in this encounter Care Teams Pack Mule Worker Relationship Specialty Start Date End Date Ishan Reyez MD [address] [place] [address] PCP - General Family Medicine 06/18/23 documented as of this encounter
--- OUTSIDE RECORDS SUMMARY | 2025-03-04 13:00 | XMS_ITS | Clinical Summary ---
Author Organization [facility] Address [address] [place] [address] Phone Care Team Providers Care Labor Contract Analyst Name Role Phone Unavailable Primary Care Provider [...]
[2025-03-04 13:34] LABS: Anion Gap 6.4; Calcium 9.4 mg/dL (8.5-10.1); Carbon Dioxide 39.4 mmol/L (21.0-32.0); Chloride 101 mmol/L (98-107); Estimated GFR (African America 36 (>=60 mL/min/1.73m^2); Estimated GFR (Non-African Ame 30 (>=60 mL/min/1.73m^2); Glucose 87 mg/dL (74-106); Potassium 4.8 mmol/L (3.5-5.1); Sodium 142 mmol/L (136-145)
== END 2025-03-04 12:53 | disposition home or self-care (01) ==
LOC: LAB 12:56
PROVIDERS: PCP Nurse Practitioner
DX: I50.41 Acute combined systolic (congestive) and diastolic (congestive) heart failure (principal)
CPT/HCPCS: 36415; 80048

== ENCOUNTER 2025-03-17 12:53 | Outpatient (OUT) | payer MEDICARE, MEDICAID, SELFPAY ==
--- OUTSIDE RECORDS SUMMARY | 2024-07-08 09:30 | XMS_ITS ---
Author Organization [facility] [place] Address [address] [place] [address] Care Team Providers Care Lap Winder Name Role Phone Evy Proctor Primary Care Provider Unavail able Ravinder Castellon Unavailable [phone] Allergies Allergen (clinical drug ingredient) Drug/Non Drug Allergy documented on EMR Reaction Allergy Type Onset Date Status Pineapple Flavor Unknown Drug Allergy Active Shellfish (FN) Shellfish-derived Products Unknown Drug Allergy Active Substance with sulfonamide structure and antibacterial mechanism of action (substance) Sulfa Antibiotics Unknown Drug Allergy Active clarithromycin Clarithromycin Unknown Drug Allergy Active Penicillin Unknown Drug Allergy Active REASON FOR VISIT 1 Year Asthma follow up/Nebulizer Supplies Medications Medication SIG (Take, Route, Frequency, Duration) Notes Start Date End Date Status Spironolactone 25 MG Oral for 30 Days Active Sertraline HCl 50 MG Oral for 90 Days Active Boostrix 5-2.5-18.5 LF-MCG/0.5 as directed Intramuscular once for 1 days 07/08/2024 Active Pantoprazole Sodium 20 MG TAKE 1 TABLET BY MOUTH EVERY DAY Oral for 90 Days Active Metoprolol Tartrate 100 MG Oral for 90 Days Active metFORMIN HCl 500 MG Oral for 90 Days Active Losartan Potassium 100 MG Oral for 90 Days Active Loratadine 10 MG TAKE 1 TABLET BY THOMAS TH EVERY DAY Oral for 90 Days Active Furosemide 20 MG TAKE 2 TABLETS BY MO UTH DAILY Oral for 90 Days Active Fluticasone Propionate 50 MCG/ACT SHAKE LIQUID AND USE 2 SPRAYS IN EACH NOSTRIL DAILY Nasal for 90 Days Active Montelukast Sodium 10 MG 1 tablet Oral Q D for 90 days Active Ipratropium-Albuterol 0.5-2.5 (3) MG/3ML 3mL Inhalation QID for 30 days Dispense 120 nebules Active Farxiga 10 MG Oral for 30 Days Active Eliquis 5 MG TAKE 1 TABLET BY THOMAS TH TWICE DAILY Oral for 90 Days Active Fasenra Pen 30 MG/ML as directed Subcuta neous Q8W Active Albuterol Sulfate HFA 108 (90 Base) MCG/ACT 2 puffs as needed for SOB Inhalation Q4H for 30 days Active Atorvastatin Calcium 40 MG Oral for 90 Days Active ARIPiprazole 15 MG TAKE 1/2 TABLET BY M OUTH EVERY DAY Oral for 30 Days Active Breo Ellipta 100-25 MCG/ACT 1 puff Inhalation QD for 90 days Rinse after use 09/09/2023 Active Mucinex 600 MG 1-2 tablets as neede d for cough or congestion Orally BID for 30 days 07/08/2024 Active Social History Tobacco Use: Social History Observation Description Date Details (start date - stop date) Never Smoker NA - NA Tobacco Use/Smoking Question Answer Notes Patient is a nonsmoker Additional Findings: Tobacco Non-User Never chew ed tobacco Tobacco Control (Standard) Question Answer Notes Tobacco use: Nonsmoker Problems Problem Type SNOMED Code ICD Code Onset Dates Problem Status W/U Status Risk Notes Problem Intellectual disability (470972602) Intellectual disability (F79) Active confirmed Problem Peripheral eosinophilia (D72.19) Active confirmed Vital Signs Temperature 95.9 degrees Fahrenheit 07/08/20 24 Blood pressure systolic 116 mm Hg 07/08/20 24 Blood pressure diastolic 75 mm Hg 024 Heart Rate 84 /min 07/08/2024 Respiratory Rate 18 /min 07/08/2024 Height 68 in 07/08/2024 Weight 263.0 lbs 07/08/2024 BMI 39.98 kg/m2 07/08/2024 Oximetry 98 % 07/08/2024 Encounters Encounter Location Date Provider Diagnosis [facility] [place] [address] [place] [address] 07/08/2024 Ravinder Castellon Severe persistent asthma J45.50 ; Peripheral eosinophilia D72.19 ; Chronic respiratory failure with hypoxia J96.11 ; Intellectual disability F79 ; Encounter for immunization Z23 ; Other disorders of electrolyte and fluid balance, not elsewhere classified E87.8 ; DM2 (diabetes mellitus, type 2) E11.9 ; 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 Since starting it, we have been able to eliminate Spiriva, and reduce her inhaled steroid dose. She remains on Breo 100 which I feel is acceptable. I believe her acute symptoms are more from postnasal drainage as her lungs are clear. Discussed with the caregiver if her breathing gets worse, she can contact the office and I can prescribe something based on her symptoms. The moderately high dose of Lasix is causing some dehydration/thicke juliana of secretions. She has also a fluid restriction. Recommended starting Mucinex 1-2 tablets twice daily as needed for cough or chest congestion. Bysm-pw-wlvu encounter performed with the patient to document continued need for a nebulizer with nebulized medications. -Current nebulized medications: DuoNeb -Symptom control: Good -Reported side or adverse effects: -Recommendations: Patient is using DuoNeb more out of habit than necessity; however, given the patient's intellectual disability, is very difficult to reeducate her off the nebulizer. Her breathing is otherwise compensated on this current regimen, so I recommend continuing using the nebulizer. Her [facility] is needing some supplies for her nebulizer, but the DME is unknown. The caregiver was instructed to determine who the original DME was who provided the nebulizer and supplies so we know who to send the order to. Follow-up 1 year or sooner if needed. 07/08/2024 Peripheral eosinophilia (ICD-10 - D72.19) She has responded extremely well to Fasenra. She has been able to step-down from Advair 500 + Spiriva to Breo 100. 07/08/2024 Chronic respiratory failure with hypoxia (ICD-10 - J96.11) Qqsy-jz-cyya encounter performed with the patient to document continued need for supplemental oxygen (O2).-Flow & directions: 2L/min O2 @ HS-Patient voices adherence to recommended usage: Yes-Symptom control on O2: Patient reports that she sleeps better when she wears O2-Counseled patient not begin, restart, or continue smoking, around the O2 due to risk of fire which could result in damage to the O2 tanks & lines, smoke inhalation and flame damage to the airway, significant jameson, potential , property damage, and potential harm & to bystanders. Additionally, counseled it is not garzon to begin, restart, or continue smoking given the underlying pulmonary disease that led to the point of requiring O2.-Recommendation s: She has been on O2 prior to me seeing her (2019). SpO2 was decreased on admission at 84% on room air, with good recovery to 98% after resting. Suspect worsening oxygenation is related to her underlying cardiovascular disease. She does not appear cyanotic to me. If she requires, she may need to be more formally assessed for ambulatory oxygen. Refill/renew/repla ce O2 supplies, tubing, etc. 07/08/2024 Intellectual disability (ICD-10 - F79) Patient asked multiple questions today, which is not common for her based on prior evaluations. She did not understand some basic concepts such as gravity. She repeated herself several times, and was redirected as she thought she was at the data librarian's office. She may need a neurocognitive evaluation if she becomes more confused. 07/08/2024 Encounter for immunization (ICD-10 - Z23) Patient is up-to-date on respiratory vaccines with exception of pertussis. I do not have a record of prior Boostrix administration. Patient voiced that she would like to have the vaccine, which was then sent to her pharmacy. 07/08/2024 Other disorders of electrolyte and fluid balance, not elsewhere classified (ICD-10 - E87.8) Elevated sweat chloride test without cystic fibrosis Suspect she may have a cystic fibrosis variant. 07/08/2024 DM2 (diabetes mellitus, type 2) (ICD-10 - E11.9) Steroids prescribed for this patient's underlying pulmonary disease can adversely affect blood glucose levels, inducing hyperglycemia and worsening underlying diabetes. The patient is encouraged to follow up with the primary care provider to create a plan to manage diabetes in this situation. 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 07/08/2024 Morbid obesity (ICD-10 - E66.01) Patient's weight is inducing a restrictive pulmonary physiology. Weight loss indicated: Decrease calories, increase activity. Plan Of Treatment Medication Medication Name Sig Start Date Stop Date Notes Boostrix 5-2.5-18.5 LF-MCG/0.5 as directed Intramuscular once for 1 days 07/08/2024 Montelukast Sodium 10 MG 1 tablet Oral QD for 90 days Ipratropium-Albuterol 0.5-2.5 (3) MG/3ML 3mL Inhalation QID for 30 days Fasenra Pen 30 MG/ML as directed Subcutaneous Q8W Albuterol Sulfate HFA 108 (90 Base) MCG/ACT 2 puffs as needed for SOB Inhalation Q4H for 30 days Breo Ellipta 100-25 MCG/ACT 1 puff Inhal ation QD for 90 days 09/09/2023 Mucinex 600 MG 1-2 tablets as neede d for cough or congestion Orally BID for 30 days 07/08/2024 Treatment Notes Assessment Notes Severe persistent asthma Prior treatment: Fasenra; Breo 100, Advair 500 & 250, Spiriva Patient continues to have an excellent response to Fasenra. Since starting it, we have been able to eliminate Spiriva, and reduce her inhaled steroid dose. She remains on Breo 100 which I feel is acceptable. I believe her acute symptoms are more from postnasal drainage as her lungs are clear. Discussed with the caregiver if her breathing gets worse, she can contact the office and I can prescribe something based on her symptoms. The moderately high dose of Lasix is causing some dehydration/thickening of secretions. She has also a fluid restriction. Recommended starting Mucinex 1-2 tablets twice daily as needed for cough or chest congestion. Qsrm-wu-brbd encounter performed with the patient to document continued need for a nebulizer with nebulized medications. -Current nebulized medications: DuoNeb -Symptom control: Good -Reported side or adverse effects: -Recommendations: Patient is using DuoNeb more out of habit than necessity; however, given the patient's intellectual disability, is very difficult to reeducate her off the nebulizer. Her breathing is otherwise compensated on this current regimen, so I recommend continuing using the nebulizer. Her [facility] is needing some supplies for her nebulizer, but the DME is unknown. The caregiver was instructed to determine who the original DME was who provided the nebulizer and supplies so we know who to send the order to. Follow-up 1 year or sooner if needed. Peripheral eosinophilia She has responded extremely well to Fasenra. She has been able to step-down from Advair 500 + Spiriva to Breo 100. Chronic respiratory failure with hypoxia Lfqn-na-vwcq encounter performed with the patient to document continued need for supplemental oxygen (O2).-Flow & directions: 2L/min O2 @ HS-Patient voices adherence to recommended usage: Yes-Symptom control on O2: Patient reports that she sleeps better when she wears O2-Counseled patient not begin, restart, or continue smoking, around the O2 due to risk of fire which could result in damage to the O2 tanks & lines, smoke inhalation and flame damage to the airway, significant jameson, potential , property damage, and potential harm & to bystanders. Additionally, counseled it is not garzon to begin, restart, or continue smoking given the underlying pulmonary disease that led to the point of requiring O2.-Recommendations: She has been on O2 prior to me seeing her (2019). SpO2 was decreased on admission at 84% on room air, with good recovery to 98% after resting. Suspect worsening oxygenation is related to her underlying cardiovascular disease. She does not appear cyanotic to me. If she requires, she may need to be more formally assessed for ambulatory oxygen. Refill/renew/replace O2 supplies, tubing, etc. Intellectual disability Patient asked multiple questions today, which is not common for her based on prior evaluations. She did not understand some basic concepts such as gravity. She repeated herself several times, and was redirected as she thought she was at the data librarian's office. She may need a neurocognitive evaluation if she becomes more confused. Encounter for immunization Patient is up-to-date on respiratory vaccines with exception of pertussis. I do not have a record of prior Boostrix administration. Patient voiced that she would like to have the vaccine, which was then sent to her pharmacy. Other disorders of electroly te and fluid balance, not elsewhere classified Suspect she may have a cystic fibrosis variant. DM2 (diabetes mellitus, type 2) Steroids prescribed for this patient's underlying pulmonary disease can adversely affect blood glucose levels, inducing hyperglycemia and worsening underlying diabetes. The patient is encouraged to follow up with the primary care provider to create a plan to manage diabetes in this situation. 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 Morbid obesity Patient's weight is inducing a restrictive pulmonary physiology. Weight loss indicated: Decrease calories, increase activity. Next Appt Details Follow Up: Cancel 08/2024 ap pointment; Reschedule 1 year, Reason: Asthma Provider Name:Ravinder Castellon, 07/13/2025 02:00:00 PM, [address] [place], [address], Procedure Notes * Category Sub-Category Detail Notes PFT Data: 10/21/2017-FEV1/F VC: 71%-FEV1: 49%-FVC: 53%-Bronchodilator response: Positive-RV: 79%-T%-DLCO: Unable to tegzthy-Nvtz-kphhcx loop: Severe obstruction Progress Notes * TISHOSCARNunudominicDOB: [birth year] (74 yo F)Acc No.[id number]:07/08/2024 Follow Up Patient: Kaylie ARAUJO Provider: Naomi Castellon DO :1950 A ge:74 Y S ex:Female Date:07/08/2024 Address:[address] [place] [address], [address] Pcp:MARYAN Cano Check In:01:15 PM ESTCheck O ut:01:58 PM EST Subjective: * Chief Complaints: * 1 Year Asthma follow up/Nebulizer Supplies * HPI: G eneral: Patient is here with a caregiver. She seems slightly more confused today than during past encounters. Her asthma has been well-controlled. She has not had any exacerbations. Fasenra has made a remarkable difference in her breathing. She is using her nebulizer twice daily more out of habit; due to the patient's intellectual disability, I do not feel that I was adequately able to explain the reasoning why she does not need to use it twice daily. Over the past several days, she has had increased sinus congestion with rhinorrhea and postnasal drainage causing a moist cough. She has not had any fevers, chills, or sweats. Patient did not understand why she is having drainage down the back of her throat. I explained that it is due to gravity, which the patient voiced lack of understanding. I dropped a pen to demonstrate this fundamental force of nature, and she still was not able to grasp, in my opinion, why the drainage goes from her sinus cavity down the back of her throat into her lungs while sitting upright. The patient follows with cardiology. She has developed congestive heart failure and is on a relatively high dose of diuretics which is drying her out her secretions. She feels it is more difficult to expectorate. She has been diagnosed as CHF along with atrial fibrillation. It was recommended by [facility] cardiology to proceed with an ablation, but the patient refused. MA Intake Comments:. Patient presents for a follow-up for Asthma with her caregiver from [facility]. Patient also is requesting Nebulizer supplies (face to face visit). Patient is currently on Fasenra and receives the medication through her speciality pharmacy. Patient received her injection a couple of weeks ago. Patient complains nasal congestion, cough & SOB that started Saturday. Patient is using Breo daily with benefit. Patient is using her Nebulizer twice per day with benefit. Patient denies any issues with the machine but would like more supplies from [facility]. Patient is currently 2L O2 at home. Patient is currently in AFIB & CHF per caregiver. Patient was scheduled for a Cardiac Ablation last Spring but the patient refused the procedure. Patient is under the care of [facility]. * ROS: G eneral/Constitutional: Fever or sweats d enies. C hange of appetite d enies. C hills d enies. W eight Change d enies. H EENT: Dry mouth d enies. S ore throat d enies. O ral Ulcers d enies. P ost Nasal Drip A dmits. C ongestion A dmits. H oarseness D enies. C ardiovascular: Tachycardia d enies. L ower Extremity Edema N ewly developed since last visit. C hest pain d enies. P alpitations d enies. R espiratory: Chest tightness d enies. P leurisy D enies. D yspnea w ith some activity. C ough M oist cough. H emoptysis d enies. W heezing d enies. G astrointestinal: Acid Reflux/GERD/Heartburn d enies. M usculoskeletal: Arthralgias/joint pain D enies. S kin: Easy bruising d enies. N eurologic: Seizures d enies. T remor d enies. H ematology: Abnormal Bleeding d enies. P sychiatric: Anxiety d enies. * Active Problem List E87.8 Other disorders of e lectrolyte and fluid balance, not elsewhere classified Modified On:09/09/2023 Status:confirmed J96.11 Chronic respiratory failure with hypoxia Modified On:09/09/2023 Status:confirmed Z79.51 custodial (current) use of inhaled steroids Modified On:09/09/2023 Status:confirmed E66.01 Morbid obesity Modified On:09/09/2023 Status:confirmed E11.9 DM2 (diabetes [facility], type 2) Modified On:09/09/2023 Status:confirmed F79 Intellectual disabil ity Modified On:07/08/2024 Status:confirmed D50.9 NETTIE (iron deficiency anemia) Modified On:09/09/2023 Status:confirmed J45.50 Severe persistent as thma Modified On:09/09/2023 Status:confirmed D72.19 Peripheral eosinophi diane Modified On:07/08/2024 Status:confirmed * Medical History: * Surgical History: C ardiac catheterization 01/16/2019cataract removal-bilateral right mastectomy portacath placement/removal * Hospitalization/Major Diagno stic Procedure: A sthma exacerbation causing NSTEMI 12/2018 * Family History: Family history is unknown to patient. * Social History: T obacco Use: T obacco Control (Standard) T obacco use: N onsmoker Electronic Cigarette use C urrent user N o Tobacco Use/Smoking P atient is a n onsmoker A dditional Findings: Tobacco Non-User N ever chewed tobacco M iscellaneous: O ccupation O ccupation: U nemployed Disabled Pets: none. D rugs/Alcohol: D rugs H ave you used drugs other than those for medical reasons in the past 12 months? N o D oes the Patient have a History of Drug Abuse in the Past? N o Do you drink alcohol?: No. Do you smoke marijuana?: Denies. * Medications: T akingAlbuterol Sulfate HFA 108 (90 Base) MCG/ACT Aerosol Solution INHALE 2 PUFFS BY MOUTH THREE TIMES DAILY Inhalation ARIPiprazole 15 MG Tablet TAKE 1/2 TABLET BY MOUTH EVERY DAY Oral Atorvastatin Calcium 40 MG Tablet Oral Breo Ellipta(Fluticasone Furoate-Vilanterol) 100-25 MCG/ACT Aerosol Powder Breath Activated 1 puff Inhalation Once a day Eliquis(Apixaban) 5 MG Tablet TAKE 1 TABLET BY MOUTH TWICE DAILY Oral Farxiga(Dapagliflozin Propanediol) 10 MG Tablet Oral Fasenra Pen(Benralizumab) 30 MG/ML Solution Auto-injector Subcutaneous Fluticasone Propionate 50 MCG/ACT Suspension SHAKE LIQUID AND USE 2 SPRAYS IN EACH NOSTRIL DAILY Nasal Furosemide 20 MG Tablet TAKE 2 TABLETS BY MOUTH DAILY Oral Ipratropium-Albuterol 0.5-2.5 (3) MG/3ML Solution INHALE THE CONTENTS OF 1 VIAL THROUGH NEBULIZER FOUR TIMES DAILY Inhalation Loratadine 10 MG Tablet TAKE 1 TABLET BY MOUTH EVERY DAY Oral Losartan Potassium 100 MG Tablet Oral metFORMIN HCl 500 MG Tablet Oral Metoprolol Tartrate 100 MG Tablet Oral Montelukast Sodium 10 MG Tablet Oral Pantoprazole Sodium 20 MG Tablet Delayed Release TAKE 1 TABLET BY MOUTH EVERY DAY Oral Sertraline HCl 50 MG Tablet Oral Spironolactone 25 MG Tablet Oral Medication List reviewed and reconciled with the patientTaking Albuterol Sulfate HFA 108 (90 Base) MCG/ACT Aerosol Solution INHALE 2 PUFFS BY MOUTH THREE TIMES DAILY Inhalation Taking ARIPiprazole 15 MG Tablet TAKE 1/2 TABLET BY MOUTH EVERY DAY Oral Taking Atorvastatin Calcium 40 MG Tablet Oral Taking Breo Ellipta(Fluticasone Furoate-Vilanterol) 100-25 MCG/ACT Aerosol Powder Breath Activated 1 puff Inhalation Once a day Taking Eliquis(Apixaban) 5 MG Tablet TAKE 1 TABLET BY MOUTH TWICE DAILY Oral Taking Farxiga(Dapagliflozin Propanediol) 10 MG Tablet Oral Taking Fasenra Pen(Benralizumab) 30 MG/ML Solution Auto-injector Subcutaneous Taking Fluticasone Propionate 50 MCG/ACT Suspension SHAKE LIQUID AND USE 2 SPRAYS IN EACH NOSTRIL DAILY Nasal Taking Furosemide 20 MG Tablet TAKE 2 TABLETS BY MOUTH DAILY Oral Taking Ipratropium-Albuterol 0.5-2.5 (3) MG/3ML Solution INHALE THE CONTENTS OF 1 VIAL THROUGH NEBULIZER FOUR TIMES DAILY Inhalation Taking Loratadine 10 MG Tablet TAKE 1 TABLET BY MOUTH EVERY DAY Oral Taking Losartan Potassium 100 MG Tablet Oral Taking metFORMIN HCl 500 MG Tablet Oral Taking Metoprolol Tartrate 100 MG Tablet Oral Taking Montelukast Sodium 10 MG Tablet Oral Taking Pantoprazole Sodium 20 MG Tablet Delayed Release TAKE 1 TABLET BY MOUTH EVERY DAY Oral Taking Sertraline HCl 50 MG Tablet Oral Taking Spironolactone 25 MG Tablet Oral Medication List reviewed and reconciled with the patient * Allergies: P enicillinSulfa AntibioticsShellfish-derived ProductsPineapple FlavorClarithromycin: Allergyno[Allergies Verified] Objective: * Vitals: W t:263.0lbs, Ht: 68 in, BP:sittin/75mm Hg, Temp:Forehead:95.9F, HR:84/min, RR:18/min, BMI:39.98Index, Oxygen sat %: Room Air:84 %,Room Air:98%, Ht-cm: 172.72 cm, Wt-k.29 kg. * Examination: E xam: GENERAL APPEARANCE: A ppears stated age. Skin N ormal. Mouth P ink and moist. No candidiasis. Oropharynx M allampati Class III. Trachea M idline. Chest N ormal. Respiratory Normal M ovements, E ffort N ormal. Auscultation D iminished breath sounds throughout, but no wheezes, crackles, or rhonchi; no rales. Cardiac I rregularly irregular. Gastrointestinal I ncreased abdominal adiposity. Vascular B LE 1+ edema. Musculoskeletal N ormal posture. Neurological F ocal, intact. Psychiatric A lert and oriented x3. Mentation/Cognition N ormal. Assessment: * Assessment: 1. S evere persistent asthma - J45.50 (Primary) 2 . P eripheral eosinophilia - D72.19?3. C hronic respiratory failure with hypoxia - J96.11 4 . I ntellectual disability - F79 5 . E ncounter for immunization - Z23 6 . O ther disorders of electrolyte and fluid balance, not elsewhere classified - E87.8, Elevated sweat chloride test without cystic fibrosis?7. D M2 (diabetes mellitus, type 2) - E11.9 8 . L kike term (current) use of inhaled steroids - Z79.51 9 . M orbid obesity - E66.01 Plan: * Treatment: 2. P eripheral eosinophilia Notes: She has responded extremely well to Fasenra. She has been able to step-down from Advair 500 + Spiriva to Breo 100. 3. C hronic respiratory failure with hypoxia Notes: Afiw-ct-jdcx encounter performed with the patient to document continued need for supplemental oxygen (O2).-Flow & directions: 2L/min O2 @ HS-Patient voices adherence to recommended usage: Yes-Symptom control on O2: Patient reports that she sleeps better when she wears O2-Counseled patient not begin, restart, or continue smoking, around the O2 due to risk of fire which could result in damage to the O2 tanks & lines, smoke inhalation and flame damage to the airway, significant jameson, potential , property damage, and potential harm & to bystanders. Additionally, counseled it is not garzon to begin, restart, or continue smoking given the underlying pulmonary disease that led to the point of requiring O2.-Recommendations: She has been on O2 prior to me seeing her (2019). SpO2 was decreased on admission at 84% on room air, with good recovery to 98% after resting. Suspect worsening oxygenation is related to her underlying cardiovascular disease. She does not appear cyanotic to me. If she requires, she may need to be more formally assessed for ambulatory oxygen. Refill/renew/replace O2 supplies, tubing, etc. 4. I ntellectual disability Notes: Patient asked multiple questions today, which is not common for her based on prior evaluations. She did not understand some basic concepts such as gravity. She repeated herself several times, and was redirected as she thought she was at the data librarian's office. She may need a neurocognitive evaluation if she becomes more confused. 5. E ncounter for immunization Start Boostrix Suspension Prefilled Syringe, 5-2.5-18.5 LF-MCG/0.5, as directed, Intramuscular, once, 1 days, 1 ea, Refills 0. Notes: Patient is up-to-date on respiratory vaccines with exception of pertussis. I do not have a record of prior Boostrix administration. Patient voiced that she would like to have the vaccine, which was then sent to her pharmacy. 6. O ther disorders of electrolyte and fluid balance, not elsewhere classified Notes: Suspect she may have a cystic fibrosis variant. 7. D M2 (diabetes mellitus, type 2) Notes: Steroids prescribed for this patient's underlying pulmonary disease can adversely affect blood glucose levels, inducing hyperglycemia and worsening underlying diabetes. The patient is encouraged to follow up with the primary care provider to create a plan to manage diabetes in this situation. ? 8. L kike term (current) use of inhaled steroids Notes: Patient was counseled to rinse & gargle with water after inhaled corticosteroid use. 9. M orbid obesity Notes: Patient's weight is inducing a restrictive pulmonary physiology. Weight loss indicated: Decrease calories, increase activity. * Procedures: P FT: Data: 10/21/2017 -FEV1/FVC: 71% -FEV1: 49% -FVC: 53% -Bronchodilator response: Positive -RV: 79% -T% -DLCO: Unable to perform -Flow-volume loop: Severe obstruction. * Procedure Codes: * Preventive Medicine: COVID Vaccination: H as patient had COVID Vaccination? COVID Vaccination Y es 06/24/2024 Immunization Status: P neumovacc P fredok26- 06/24/2024. I nfluenza 0 06/24/2024. Z ostivax 0 10/09/2015. Screenings/Counseling: F ALL RISK SCREENING Fall Risk Assessment: N o falls in the past year Are you afraid of falling? N o T OBACCO ACTION PLAN Exclusion: M edical Reason Non Smoker Type of Medical Reason: N ot indicated B TN ACTION PLAN Above Normal BMI Follow-up D ietary management education, guidance, and counseling R SV-06/24/2024. * Follow Up: David ramirez 08/2024 appointment; Reschedule 1 year (Reason: Asthma) * * Sign off status: Completed Visit Status: C HK (Check Out) true * Provider: Naomi Castellon DO Date: Generated for Doreen tinajero/Isauro/Laliitting on: 0 03/17/2025 12:57 PM EDT History and Physical Notes * HPI (History of Present Illness) Category Sub-Category Detail Notes Category Not es General Patient present s for a follow-up for Asthma with her caregiver from [facility]. Patient also is requesting Nebulizer supplies (face to face visit). Patient is currently on Fasenra and receives the medication through her speciality pharmacy. Patient received her injection a couple of weeks ago. Patient complains nasal congestion, cough & SOB that started Saturday. Patient is using Breo daily with benefit. Patient is using her Nebulizer twice per day with benefit. Patient denies any issues with the machine but would like more supplies from [facility]. Patient is currently 2L O2 at home. Patient is currently in AFIB & CHF per caregiver. Patient was scheduled for a Cardiac Ablation last Spring but the patient refused the procedure. Patient is under the care of [facility]. Examination Category Sub-Category Detail Notes Category Not es Exam GENERAL APPEARANCE: Appears stated age Skin Normal Mouth [place] and moist. No c andidiasis Trachea Midline Chest Normal Respiratory Normal Movements, Ef fort Normal Auscultation Diminished breath so unds throughout, but no wheezes, crackles, or rhonchi; no rales Cardiac Irregularly irregula r Gastrointestinal Increased abdominal adiposity Vascular BLE 1+ edema Musculoskeletal Normal posture Neurological Focal, intact Psychiatric Alert and oriented x 3 Mentation/Cognition Normal Oropharynx Mallampati Class III
--- OUTSIDE RECORDS SUMMARY | 2024-07-21 12:15 | XMS_ITS ---
Author Organization The [facility] in [place] Address [address] [place] [address] Care Team Providers Care Wildlife Forensic Geneticist Name Role Phone Evy Proctor Primary Care Provider Unavail jada IssaRavinder carreno Unavailable [phone] REASON FOR VISIT Nebulizer Mask Order Encounters Encounter Location Date Provider Diagnosis [facility] [place] [address] [place] [address] 07/21/2024 Ravinder Castellon Plan Of Treatment Next Appt Details Provider Name:Ravinder Castellon, 07/13/2025 02:00:00 PM, [address] [place], [address], Progress Notes * AIMEKaylieDOB: [birth year] (74 yo F)Acc No.[id number]:07/21/2024 Patient: Kaylie ARAUJO :1950 A ge:74 Y S ex:Female Address:[address], [address] , [place], [address] * true * Date: Generated for Printi ng/Faxing/eTransmitting on: 0 03/17/2025 12:56 PM EDT
--- OUTSIDE RECORDS SUMMARY | 2024-09-09 07:00 | XMS_ITS ---
Author Organization [facility] [place] Address [address] [place] [address] Care Team Providers Care Sole Tier Name Role Phone Evy Proctor Primary Care Provider Unavail Ravinder Varela Unavailable [phone] REASON FOR VISIT 1YEAR-ASTHMA Encounters Encounter Location Date Provider Diagnosis Pulmonary [facility] [place] [address] [place] [address] 09/09/2024 Ravinder Castellon Plan Of Treatment Next Appt Details Provider Name:Ravinder Castellon, 07/13/2025 02:00:00 PM, [address] [place], [address], Progress Notes * Kaylie RESENDIZDOB: [birth year] (75 yo F)Acc No.[id number]:09/09/2024 UNLOCKED PROGRESS NOTE Follow Up Patient: Kaylie ARAUJO Provider: Naomi Castellon DO :1950 A ge:74 Y S ex:Female Date:09/09/2024 Address:[address], [address] , [id number] Pcp:MARYAN Cano Subjective: * Chief Complaints: * 1 . 1YEAR-ASTHMA. * Medical History: Objective: * Vitals: Assessment: Plan: * Treatment: * * Electronic signature of Surekha Castellon DO on 03/17/2025 at 12:57 PM EDT Sign off status: Pending Visit Status: O FF CANC (OFFICE CANCEL) * Provider: Naomi Castellon, Date: 1 11/10/2023 Generated for Doreen tinajero/Isauro/Drew on: 0 03/17/2025 12:57 PM EDT
--- OUTSIDE RECORDS SUMMARY | 2025-03-17 12:56 | XMS_ITS | Patient Health Record ---
Author Organization [facility] Address [address] [place] [address] Care Team Providers Care Earth Science Technical Officer Name Role Phone Ishan Reyez Primary Care Provider Jason Regalado Unavailable [phone] Eulalia Lui Unavailable [phone] Allergies Allergen (clinical drug ingredient) Drug/Non Drug [...] Problem Status W/U Status Risk Notes Problem [id number] Other nondisplaced fracture of upper end of left humerus, subsequent encounter for fracture with routine healing (S42.295D) Active confirmed Problem [id number] Other closed nondisplaced fracture of proximal end of left humerus, initial encounter (S42.295A) Active confirmed Vital Signs Height 5'8 in 05/11/2024 Weight 271 lbs 05/11/2024 BMI 41.2 05/11/2024 Encounters Encounter Location Date Provider Diagnosis [facility] [address] [facility] [place] [address] [place] [address] 04/27/2024 Jason Oliva Other closed nondisplaced fracture of proximal end of left humerus, [facility] [address] [facility] [place] [address] [place] [address] 05/11/2024 Eulalia xxCeli[facility] Other closed nondisplaced fracture of proximal end of left humerus, initial encounter S42.295A [facility] [address] [facility] [place] [address] [place] [address] 06/08/2024 E[place] [facility] Other closed nondisplaced fracture of proximal end of left humerus, initial encounter S42.295A [facility] [address] [facility] [place] [address] [place] [address] 07/06/2024 Eulalia [facility] Other nondisplaced fracture of upper end of left humerus, subsequent encounter for fracture with routine healing S42.295D [facility] [address] [facility] [place] [address] [place] [address] 08/17/2024 Eulalia [facility] Other nondisplaced fracture of upper end of [...] Order Date SCC- SHOULDER 3 VIEW LEFT [id number] 05/11/20 SCC- SHOULDER 3 VIEW LEFT [id number] 07/06/20 24 SCC- SHOULDER 3 VIEW LEFT [id number] 06/08/20 24 Insurance Providers Payer Name Payer Address Payer Phone Subscriber Number Group Number Insured Name Patient Relationship to Insured Coverage Start Date Coverage End Date [employer] [address] [address] [place] [address] [id number] RUBI SALOMON Self - patient is the insured [facility] of Medicaid [address] [place] [address] [id number] RUBI SALOMON Self - patient is the insured Medical (General) History Medical History History ICD Code Asthma Cancer Respiratory problems: Heart problems: Mental Illness: High Blood Pressure Anxiety Sleep apnea CPAP
--- OUTSIDE RECORDS SUMMARY | 2025-03-17 12:56 | XMS_ITS | Clinical Summary ---
Author Organization [facility] Address [address] [place] [address] Care Team Providers Care Investor Relations Manager Name Role Phone Evy Kaufman MD Unavailable Ishan Reyez MD Primary Care Provider [phone] Allergies Active Allergy Reactions Criticality Noted Date [...] EDT Clinical Support [facility] [address] [facility] [address] [place] [phone] Deann Hoffman, [facility] [address] [facility] [place] [address] 03/31/2025 1:10 PM EDT Office Visit [facility] [address] [facility] [address] [place] [address] Trinidad Simmons MD [address] [facility] [address] [place], [place] [id number] Health Maintenance Due Date Last Done Comments Influenza Vaccine Completed 06/24/2024, , 07/11/2022, Additional history exists Pneumococcal Vaccine: 65+ Years Completed 06/24/2024, 07/21/2019, 06/26/2018, Additional history [place] [address] MEDICAID [place] Care Teams Investor Relations Manager Relationship Specialty Start Date End Date Ishan Reyez MD [address] [place] [id number] PCP - General Family Medicine 12/22/24 Evy Kaufman MD [address] [place] [address] Referring Physician Family Medicine 02/11/24
--- OUTSIDE RECORDS SUMMARY | 2025-03-17 12:56 | XMS_ITS | Patient Health Record ---
Author Organization [facility] Address [address] [place] [address] Care Team Providers Care Investor Relations Analyst Name Role Phone Ulisses Garay Primary Care Provider Allergies Allergen (clinical drug ingredient) Drug/Non Drug [...] tablet Orally Once a day Active Tiotropium [place] Monohydrate 1.25 MCG/ACT 2 puffs Inhalation Once [...] HCl 500 MG 1 tablet with a erx l Orally Once a day Active Acular [...] Date [place] [address] [place] [place] [address] [id number] RUBI SALOMON Self - patient is the insured 9 [place]ICAID [place] [address] [place] [address] [id number] RUBI SALOMON Self - patient is the insured 2 DENTAL [place]ICA[place] [address] [place] [address] [phone] [id number] RUBI SALOMON Self - patient is the insured 2
--- OUTSIDE RECORDS SUMMARY | 2025-03-17 12:56 | XMS_ITS | Clinical Summary ---
Author Organization [facility] Address [address] [place] [address] Care Team Providers Care Wing Mailer Machine Operator Name Role Phone Ishan Reyez MD Primary Care Provider [phone] Allergies Active Allergy Reactions Criticality Noted Date Comments Bacitracin 04/25/2023 Bromelains 04/25/2023 Clarithromycin Other,Unknown 01/27/2010 Conjugated Estrogens Unknown 01/27/2010 Estrogens, Conjugated 04/25/2023 Neomycin Sulfate 04/25/2023 Atrtjyef-Toddzbyxgl-Bdetqol in Rash Low 05/06/2019 Paclitaxel Other 08/24/2019 Numbness,tingling and elevated blood pressure Peanut Anaphylaxis High 05/06/2019 Penicillins Rash Low 05/06/2019 Pineapple 05/07/2019 Polymyxin B 04/25/2023 Shrimp 05/07/2019 All seafood Sulfa (Sulfonamide Antibiotics) Other,Unknown 01/27/2010 Medications albuterol 90 mcg/actuation inhaler Inhale 2 puffs in the morning, at noon, and at bedtime. Active apixaban (Eliquis) 5 mg tablet Take 1 tablet by mouth in the morning and at bedtime. Active atorvastatin (Lipitor) 40 mg tablet Take 1 tablet by mouth at bedtime. Active benralizumab (Fasenra Pen) 30 mg/mL auto-injector EVERY 8 WEEKS LAST DOSE 01/03/24 1 Active loratadine (Claritin) 10 mg tablet Take 1 tablet by mouth in the morning. Active losartan (Cozaar) 100 mg tablet Take 1 tablet by mouth in the morning. Active metFORMIN (Glucophage) 500 mg tablet Take 500 mg by mouth in the morning and at bedtime. 0 Active montelukast (Singulair) 10 mg tablet Take 1 tablet by mouth in the morning. 0 Active pantoprazole (ProtoNix) 40 mg EC tablet Take 1 tablet by mouth in the morning. Active sertraline (Zoloft) 50 mg tablet Take 1 tablet by mouth at bedtime. Active fluticasone (Flonase) 50 mcg/actuation nasal spray 1 (one) time each day at the same time. Active Breo Ellipta 100-25 mcg/dose inhaler Use 1 puff in the mouth or throat 1 (one) time each day. 3 Active metoprolol tartrate (Lopressor) 100 mg tabletIndication s:Longstanding persistent atrial fibrillation (CMS/HCC) Take 1 tablet (100 mg) by mouth two times daily. 180 tablet 3 4 05/21/20 25 Active cholecalciferol, vitamin D3, 50 mcg (2,000 unit) capsule Take 2,000 Units by mouth in the morning. 1 Active furosemide (Lasix) 40 mg tabletIndication s:Edema, unspecified type Take 1 tablet (40 mg) by mouth two times daily. 240 tablet 3 4 06/17/20 25 Active Additional Information Patient taking differently: 80 mgoral 2 times daily,80mg in the AM, 40mg in the PM, Reported on 06/25/2024 potassium chloride CR (K-Tab) 20 mEq ER tabletIndication s:Edema, unspecified type Take 1 tablet (20 mEq) by mouth two times daily. Do not crush, chew, or split. 180 tablet 3 4 07/03/20 25 Active dapagliflozin propanediol (Farxiga) 10 mgIndications:Ch ronic heart failure with preserved ejection fraction (CMS/HCC) Take 1 tablet (10 mg) by mouth once daily as directed. 90 tablet 3 4 08/07/20 25 Active Rexulti 0.5 mg tablet Take 0.5 mg by mouth. 4 Active amiodarone (Pacerone) 200 mg tabletIndication s:Paroxysmal atrial fibrillation (CMS/HCC) TAKE 1 TABLET(200 MG) BY MOUTH IN THE MORNING 90 tablet 3 5 Active spironolactone (Aldactone) 25 mg tabletIndication s:Acute heart failure with preserved ejection fraction (CMS/HCC) Take 1 tablet (25 mg) by mouth in the morning. 30 tablet 11 5 02/25/20 26 Active Active Problems Problem Noted Date Diagnosed [...] Electrolyte and fluid disorder 09/17/2023 1 11/18/2022 retirement 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 steroid 023 09/17/2023 [...] Assessment & Plan (05/21/2023 2:02 PM EDT): [id number] VASc= 4 HTN, age, female Continue anticoagulation [...] Encounters Date Type Department Care Team Description 03/05/2025 Orders Only [facility] [address] [place] [facility] [address] Elvin Isaac, CHETNA 02/25/2025 Telephone [facility] [address] [place] [facility] [address] Suzette Collado MA 02/25/2025 Orders Only [facility] [address] [place] [facility] [address] Elvin Isaac CNP 02/24/2025 2:20 PM EDT Office Visit [facility] [address] [place] [facility] [address] Elvin Isaac CNP Acute heart failure with preserved ejection fraction (CMS/HCC) (Primary Dx); BOSCH (dyspnea on exertion); Bilateral lower extremity edema; Obesity, unspecified class, unspecified obesity type, unspecified whether serious comorbidity present; Coronary artery disease involving [place] coronary artery of [place] heart without angina pectoris 02/18/2025 Orders Only [facility] [address] [place] [facility] [address] Provider, MD Isis 12/15/2024 Refill [facility] [address] [place] [facility] [address] Brian Alfred MD Paroxysmal atrial fibrillation (CMS/HCC) from Last 3 Months Immunizations Immunization Administration Dates Next Due Influenza, High Dose [...] Physically or Sexually Abused Not on file Comments No Sex and Gender Information Value Date Recorded Sex Assigned at Female 04/25/2023 2:07 PM EDT Legal Sex Female 12:10 AM EDT Gender Identity Female 04/25/2023 2:07 PM [...] Description 03/30/2025 1:00 PM EDT Office Visit [facility] [address] [place] [address] Kelly Lyon, PALLIATIVE NURSE [address] [place] [address] Health Maintenance Due Date Last [...] 07/11/2022, Additional history exists Pneumococcal Vaccine: 50+ Years Completed 06/24/2024, 07/21/2019, 06/26/2018, Additional history [...] Associated Diagnosis Comments BASIC METABOLIC PANEL Routine 03/04/2025 8:53 AM EDT BASIC METABOLIC PANEL Routine 02/24/2025 3:03 PM EDT B-TYPE NATRIURETIC PEPTIDE Routine 02/24/2025 10:24 AM EDT HEMOGLOBIN A1C Routine 10/28/2024 5:01 PM EST from Last 3 Months or Most Recently Relevant to Health Maintenance Results * Basic metabolic panel (03/04/2025 8:53 AM EDT) Only the most recent of2 resultswithin the time period is included. Blood Venous blood specimen / Unknown us Elvin Isaac CNP LAB BLOOD ORDERABLES Final Resul t * B-type natriuretic peptide (02/24/2025 10:24 AM EDT) Blood Venous blood specimen / Unknown us Elvin Isaac CNP LAB BLOOD ORDERABLES Final Resul t * Hemoglobin A1c (10/28/2024 5:01 PM EST) Blood Venous blood specimen / Unknown Historical Provider LAB BLOOD ORDERABLES Madiha l Result from Last 3 Months or Most Recently Relevant to Health Maintenance Insurance MEDICARE MED[place]ID [place] Advance Directives * Full Code (Latest Code Status on File) Date Activated Date Inactivated Comments 10/31/2023 8:36 AM 10/31/2023 11:10 AM Care Teams Wing Mailer Machine Operator Relationship Specialty Start Date End Date Ishan Reyez MD [address] [place], [place] [id number] PCP - General Family Medicine 06/18/23
--- OUTSIDE RECORDS SUMMARY | 2025-03-17 12:56 | XMS_ITS | Referral Summary ---
Author Organization [facility] Address [address] [place] [address] Care Team Providers Care Public Health Staff Nurse Name Role Phone Ishan Reyez MD Primary Care Provider [phone] Encounters Date Type Department Care Team Description 03/05/2025 Orders Only [address] [address] Elvin Isaac CNP 02/25/[address] [address] Suzette Collado MA 02/25/2025 Orders Only [address] [address] Elvin Isaac CNP 02/24/2025 2:20 PM EDT Office Visit [address] [address] Elvin Isaac CNP Acute heart failure with preserved ejection fraction (CMS/HCC) (Primary Dx); BOSCH (dyspnea on exertion); Bilateral lower extremity edema; Obesity, unspecified class, unspecified obesity type, unspecified whether serious comorbidity present; Coronary artery disease involving robinson coronary artery of robinson heart without angina pectoris 02/18/2025 Orders Only [address] [address] ProviderIsis MD 12/15/[address] [address] Brian Alfred MD Paroxysmal atrial fibrillation (CMS/HCC) from Last 3 Months Allergies Active Allergy Reactions Criticality Noted Date Comments Bacitracin 04/25/2023 Bromelains 04/25/2023 Clarithromycin Other,Unknown 01/27/2010 Conjugated Estrogens Unknown 01/27/2010 Estrogens, Conjugated 04/25/2023 Neomycin Sulfate 04/25/2023 Nwdyrojb-Nmvitxbczz-Paknlxm in Rash Low 05/06/2019 Paclitaxel Other 08/24/2019 [...] 02/10/2024 Paroxysmal A-fib 12/13/2023 Chronic respiratory failure 09/17/2023 1205/2023 Electrolyte and fluid disorder 09/17/2023 1 11/18/2022 termination clerk 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 steroid 023 09/17/2023 [...] Assessment & Plan (05/21/2023 2:02 PM EDT): [id number] VASc= 4 HTN, age, female Continue anticoagulation [...] Type 1 diabetes mellitus 01/09/2019 023 Immunizations Immunization Administration Dates Next Due Influenza, [...] [facility] [address] [place] [address] Kelly Lyon CNP [address] [place] [address] Procedures Procedure Name Priority Date/Time Associated Diagnosis [...] blood specimen / Unknown us Elvin Isaac [facility] LAB BLOOD ORDERABLES Final Resul t * B-type natriuretic peptide (02/24/2025 10:24 AM EDT) Blood Venous blood specimen / Unknown us Elvin Cedeñoider RADIOLOGY RECEPTIONIST LAB BLOOD ORDERABLES Final Resul t * Hemoglobin A1c (10/28/2024 5:01 PM EST) Blood Venous blood specimen / Unknown Historical Provider LAB BLOOD ORDERABLES Madiha l Result from Last 3 Months or Most Recently Relevant to Health Maintenance Insurance MEDICARE MEDICAID [place] Advance Directives * Full Code (Latest Code Status on File) Date Activated Date Inactivated Comments 10/31/2023 8:36 AM 10/31/2023 11:10 AM Care Teams Public Health Staff Nurse Relationship Specialty Start Date End Date Ishan Reyez MD [address] [place] [address] PCP - General Family Medicine 06/18/23
--- OUTSIDE RECORDS SUMMARY | 2025-03-17 12:57 | XMS_ITS | Encounter Summary ---
Author Organization [facility] Address [address] [place] [address] Care Team Providers Care Desk Assistant Name Role Phone Ishan Reyez MD Primary Care Provider [phone] Reason for Visit * Reason Comments Med Refill Encounter Details Date Type Department Care Team (Late st Contact Info) Description 06/18/2023 Refill [place] [address] [place] [address] Martir Aldridge MD [address] [place] [address] Longstanding persistent atrial fibrillation (CMS/HCC) Social History Tobacco Use Types Packs/Day Years Used Date Smoking Tobacco: Never Smokeless Tobacco: Never Alcohol Use Standard Drinks/Week Comments Not Currently 0 (1 standard drink = 0.6 oz pur e alcohol) Comments Unknown Sex and Gender Information Value [...] Description 03/30/2025 1:00 PM EDT Office Visit [facility] [address] [place] [address] Kelly Lyon, TERRITORY OUTSIDE SALES MANAGER [address] [facility] [place] [phone] documented as of this encounter Visit Diagnoses Diagnosis Longstanding persistent atrial fibrillation (CMS/HCC) documented in this encounter Care Teams Desk Assistant Relationship Specialty Start Date End Date Ishan Reyez MD [address] [place] [address] PCP - General Family Medicine 06/18/23 documented as of this encounter
--- OUTSIDE RECORDS SUMMARY | 2025-03-17 12:57 | XMS_ITS | Clinical Summary ---
Author Organization [facility] Address [address] [place] [address] Phone Care Team Providers Care Platform Man Name Role Phone Unavailable Primary Care Provider [...]
--- OUTSIDE RECORDS SUMMARY | 2025-03-17 12:57 | XMS_ITS | Clinical Summary ---
Author Organization [facility] Address [address] [place] [address] Care Team Providers Care Sales Floor Manager Name Role Phone Hortensia Landeros MD Primary Care Provider [phone] Samantha Benitez APRN.DRAPERY HAND Unavailable [phone] Reginald Aragon MD Unavailable Allergies Active Allergy Reactions Criticality Noted Date Comments Clarithromycin Unknown 01/27/2010 Conjugated Estrogens Unknown 01/27/2010 Tfazptse-Ifkmuphply-Whbp myxin Rash 05/06/2019 Paclitaxel Other: See Comments [...] is lower risk 6 03/14/2023 Data from: https://www.neighborhoodatlas.medicine.[facility].edu/. Last address used for calculation Umer Zepeda [...] 01/04/1966 DTaP,Tdap,Td Vaccine (1 - Tdap) 01/04/1967 Medicare Annual Wellness Visit 12/29/1988 Bone Density Screening 01/04/2013 Shingrix Vaccine (2 of 3) 12/04/2015 10/09/2015 Advance Directive Discussion 09/30/2024 Covid-19 Vaccine (2023-2 5 season) 2024 06/24/2024, 07/25/2023, 05/08/2022, Additional [...] - 8.0 g/dL 07/30/2024 2:16 PM EDT [facility] Albumin 4.0 3.9 - 4.9 g/dL 07/30/2024 2:16 PM EDT [facility] Calcium, Total 9.3 8.5 - 10.2 mg/dL 07/30/2024 2:16 PM EDT [facility] Bilirubin, Total 0.4 0.2 - 1.3 mg/dL 07/30/2024 2:16 PM EDT [facility] Alkaline Phosphatase 95 34 - 123 U/L 07/30/2024 2:16 PM EDT [facility] AST 21 13 - 35 U/L 07/30/2024 2:16 PM EDT [facility] ALT 19 7 - 38 U/L 07/30/2024 2:16 PM EDT [facility] Glucose 83 74 - 99 mg/dL 07/30/2024 2:16 PM EDT [facility] Comment: The [place] Diabetes Association (ADA) provides guidance for cutoff [...] Standards of Medical Care in Diabetes 2016, [place] Diabetes Association. Diabetes Care. 2016.39(Suppl 1). BUN 54(H) 7 - 21 mg/dL 07/30/2024 2:16 PM T [facility] Creatinine 1.41(H) 0.58 - 0.96 mg/dL 07/30/2024 2:16 PM EDT [facility] Sodium 141 136 - 144 mmol/L 07/30/2024 2:16 PM EDT [facility] Potassium 4.3 3.7 - 5.1 mmol/L 07/30/2024 2:16 PM EDT [facility] Chloride 100 98 - 107 mmol/L 07/30/2024 2:16 PM EDT [facility] CO2 31(H) 22 - 30 mmol/L 07/30/2024 2:16 PM EDT [facility] Anion Gap 10 8 - 15 mmol/L 07/30/2024 2:16 PM EDT [facility] Estimated Glomerular Filtration Rate 39(L) >=60 mL/min/1. 73m 07/30/2024 2:16 PM EDT [facility] Comment:Estimated Glomerular Filtration Rate (eGFR) [...] EDT Reginald Aragon MD LABORATORY Final Result [facility] [address] [place] [address] from Last 3 Months or Most Recently Relevant to Health Maintenance [place] [address] MEDICARE [address]AD Care Teams Sales Floor Manager Relationship Specialty Start Date End Date Hortensia Landeros MD [address] [place] [address] PCP - General Family Medicine 03/11/19 Samantha Benitez APRN.DRAPERY HAND [address] [facility] [place] [address] Physician Sliver Lap Machine Tender Hematology/Oncology 04/27/19 Reginald Aragon MD [address] [facility] [place] [address] Physician Hematology/Oncology 12/07/19
--- OUTSIDE RECORDS SUMMARY | 2025-03-17 12:57 | XMS_ITS | Clinical Summary ---
Author Organization [facility] Address [id number] [address] [place] [address] Care Team Providers Care Educational Administrator Name Role Phone MandeepEvy crandall Alfredo VENCES-OIL WELL FISHING TOOL OPERATOR Primary Care Provider [phone] Allergies Active Allergy Reactions Criticality Noted Date Comments Clarithromycin Other (See Comments) 01/27/2010 Ktowlpbc-Lhizdmhucx-Aqvrcks in Rash Low 05/06/2019 Peanut Anaphylaxis High [...] stage from 05/07/2019: pT1c, pN2a, cM0, ER-, [place]-, HER2+ - Unsigned Immunizations Immunization Administration Dates [...] history exists Medical Devices Implanted Type Area Make Ready Mechanic Device Identifier Shelf Expiration Date Model / Serial / Lot Lens Iol Ultrasert 23.0d - [id number] - [id number] Implanted:Qty: 1 on 06/28/2022 by Rosa Elena Lewis MD at [facility] Lens Left: Eye [employer] 02/06/2025 [id number] 23.0 / [id number] 3 / NA Lens Iol Ultrasert 23.5d - [id number] - [id number] Implanted:Qty: 1 on 11/01/2022 by Rosa Eelna Lewis MD at [facility] Lens Right: Eye [employer] 04/28/2025 [id number] 23.5 / [id number] 2 / NA Insurance MEDICAID [place] MEDICARE Care Teams Educational Administrator Relationship Specialty Start Date End Date Evy Kaufman, RU-OIL WELL FISHING TOOL OPERATOR [address] [place] [address] PCP - General Nurse Practitioner 11/27/23
--- OUTSIDE RECORDS SUMMARY | 2025-03-17 12:57 | XMS_ITS ---
Author Organization [email or web address] Address [id number] [address] 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
--- OUTSIDE RECORDS SUMMARY | 2025-03-17 12:57 | XMS_ITS | Encounter Summary ---
Author Organization [facility] Address [address] [place] [address] Care Team Providers Care Motor Adjuster Name Role Phone Ishan Reyez MD Primary Care Provider [phone] Encounter Details Date Type Department Care Team (Late st Contact Info) Description 03/05/2025 Orders Only [address] [address] Elvin Isaac, CALL CENTER SUPPORT CONSULTANT [address] [place] [address] Social History Tobacco Use Types Packs/Day Years [...] Description 03/30/2025 1:00 PM EDT Office Visit [place] [address] [place] [address] Kelly Lyon, CHETNA [address] [place] [address] documented as of this encounter Procedures Procedure Name Priority Date/Time Associated Diagnosis Comments BASIC METABOLIC PANEL Routine 03/04/2025 8:53 AM EDT documented in this encounter Results * Basic metabolic panel (03/04/2025 8:53 AM EDT) Blood Venous blood specimen / Unknown us Elvin Isaac [facility] BLOOD ORDERABLES Final Resul t documented in this encounter Visit Diagnoses Not on filedocumented in this encounter Care Teams Motor Adjuster Relationship Specialty Start Date End Date Ishan Reyez MD [address] [place] [address] PCP - General Family Medicine 06/18/23 documented as of this encounter
--- OUTSIDE RECORDS SUMMARY | 2025-03-17 12:57 | XMS_ITS | Encounter Summary ---
Author Organization [facility] Address [address] [place] [address] Care Team Providers Care Nursery School Teacher Name Role Phone Hortensia Landeros MD Primary Care Provider [phone] Samantha Benitez APRN.RECOVERER Unavailable [phone] Chary Cornelius RN Unavailable [phone] Reginald Aragon MD Unavailable [phone] Source Comments In the event this information is protected by the Federal Confidentiality of Alcohol and Drug AbusePatient Records regulations: The Federal rules restrict any use of the information to criminally investigate or prosecute any alcohol or drug abuse patient.[facility] Encounter Details Date Type Department Care Team [...] on filedocumented in this encounter Care Teams Nursery School Teacher Relationship Specialty Start Date End Date Hortensia Landeros MD [address] [place] [address] PCP - General Family Medicine 03/11/19 Samantha Benitez APRN.RECOVERER [address] [facility] [place] [address] Physician Wool And Pelt Grader Hematology/Oncology 04/27/19 Chary Cornelius, DILCIA [address] [facility] [place] [address] Specialty Injector Assembler Hematology/Oncology 05/14/19 01/31/21 Reginald Aragon MD [address] [place] [address] [place] [address] Physician Hematology/Oncology 12/07/19 documented as of this encounter
--- OUTSIDE RECORDS SUMMARY | 2025-03-17 12:57 | XMS_ITS | Encounter Summary ---
Author Organization [facility] Address [address] [place] [address] Care Team Providers Care Levi Maker Name Role Phone Ishan Reyez MD Primary Care Provider [phone] Reason for Visit * Reason Comments Med Refill Encounter Details Date Type Department Care Team (Late st Contact Info) Description 12/24/2023 Refill [facility] Heart at [facility] [address] [place] [address] Brian Alfred MD [address] [place] [address] Paroxysmal atrial fibrillation (CMS/HCC) Social History Tobacco Use Types Packs/Day Years Used Date Smoking Tobacco: Never Smokeless Tobacco: Never Alcohol Use Standard Drinks/Week Comments Not Currently 0 (1 standard drink = 0.6 oz pur e alcohol) [place] Safety & Environment Answer Date Rec orded [...] Description 03/30/2025 1:00 PM EDT Office Visit [facility] Heart at [facility] [address] [place] [address] Kelly Lyon, ROCK STAR [address] [place] [address] documented as of this encounter Visit Diagnoses Diagnosis Paroxysmal atrial fibrillation (CMS/HCC) Atrial fibrillation documented in this encounter Care Teams Levi Maker Relationship Specialty Start Date End Date Ishan Reyez MD [address] [place] [address] PCP - General Family Medicine 06/18/23 documented as of this encounter
--- OUTSIDE RECORDS SUMMARY | 2025-03-17 12:57 | XMS_ITS ---
Author Organization [facility] Address [address] [place] [address] Care Team Providers Care Storage Management Architect Name Role Phone Hortensia Landeros MD Primary Care Provider [phone] Samantha Benitez NEEDLE BAR MOLDER.ESOL TEACHER Unavailable [phone] Reginald Aragon MD Unavailable [phone] Active Problems Problem Noted Date Diagnosed Date [...]
--- OUTSIDE RECORDS SUMMARY | 2025-03-17 12:57 | XMS_ITS | Encounter Summary ---
Author Organization [facility] Address [facility]-[id number] [address] [place] [address] Care Team Providers Care Metal Spraying Machine Operator Name Role Phone Evy Kaufman Primary Care Provider [phone] Encounter Details Date Type Department Care Team (Late st Contact Info) Description 09/17/2019 Social Work [facility] Oncology - Radiation Oncology [address] [place] [address] Steff Martin LSW Social History [...] on filedocumented in this encounter Care Teams Metal Spraying Machine Operator Relationship Specialty Start Date End Date Evy Kaufman APRN-CNP [address] [place] [address] PCP - General Nurse Practitioner 11/27/23 documented as of this encounter
--- OUTSIDE RECORDS SUMMARY | 2025-03-17 12:57 | XMS_ITS | Encounter Summary ---
Author Organization [facility] Address [address] [place] [address] Care Team Providers Care Seo Specialist Name Role Phone Ishan Reyez MD Primary Care Provider [phone] Reason for Visit * Reason Comments Med Refill Encounter Details Date Type Department Care Team (Late st Contact Info) Description 11/29/2023 Refill [facility] Heart at [facility] [address] [place] [address] Brian Alfred MD [address] [place] [address] Paroxysmal atrial fibrillation (CMS/HCC) Social History Tobacco Use Types Packs/Day Years Used Date Smoking Tobacco: Never Smokeless Tobacco: Never Alcohol Use Standard Drinks/Week Comments Not Currently 0 (1 standard drink = 0.6 oz pur e alcohol) [place] Safety & Environment Answer Date Rec orded Fear of Current or Ex-Partner Not on file Emotionally Abused Not on file 11/21/2023 Physically Abused Not on file 11/21/2023 Sexually Abused Not on file 11/21/2023 Physically or Sexually Abused Not on file Comments Unknown Sex and Gender Information Value [...] 1:00 PM EDT Office Visit [facility] Heart at [facility] [address] [place] [address] Kelly Lyon, PROFESSOR OF LITERACY [address] [place] [address] documented as of this encounter Visit Diagnoses Diagnosis Paroxysmal atrial fibrillation (CMS/HCC) Atrial fibrillation documented in this encounter Care Teams Seo Specialist Relationship Specialty Start Date End Date Ishan Reyez MD [address] [place] [address] PCP - General Family Medicine 06/18/23 documented as of this encounter
--- OUTSIDE RECORDS SUMMARY | 2025-03-17 12:57 | XMS_ITS | Encounter Summary ---
Author Organization [employer] [facility] Address [facility]-[id number] [address] [place] [address] Care Team Providers Care General Medical Practitioner Name Role Phone Evy Kaufman APRN-RADIO TIME SALES SUPERVISOR Primary Care Provider [phone] Encounter Details Date Type Department Care Team (Late st Contact Info) Description 07/11/2020 Abstract [facility] Oncology - Radiation Oncology [address] [place] [address] Ruthann Jarrett RMA Social History Tobacco Use [...] on filedocumented in this encounter Care Teams General Medical Practitioner Relationship Specialty Start Date End Date Evy Kaufman, HOG GRADER-RADIO TIME SALES SUPERVISOR [address] [place] [address] PCP - General Nurse Practitioner 11/27/23 documented as of this encounter
--- NOTE | 2025-03-17 13:00 | CA_ITS ---
Patient Name: RUBI SALOMON MR#: [id number] : 1950 Exam Date: 03/17/2025 Ordering Doctor: RENEE SABILLON ECHOCARDIOGRAM REPORT PROCEDURE: CA ECHO DOPPLER COMPLETE INDICATIONS: Dyspnea on exertion, acute heart failure with preserved ejection fraction, right breast cancer - mastectomy, hypertension COMPARISON: None. DESCRIPTION: COMPLETE ECHOCARDIOGRAM Real-time transthoracic echocardiography with 2D, M-mode, spectral and color flow Doppler performed. QUALITY: Technical quality was good. LEFT VENTRICLE: Normal chamber size. Mild concentric hypertrophy. Systolic function is normal. LV EF: Normal left ventricular ejection fraction, (55-60%). DIASTOLIC: Diastolic function is indeterminate. ATRIAL SEPTUM: Visually appears intact. LEFT ATRIUM: Severe dilatation. RIGHT ATRIUM: Moderate dilatation. RIGHT VENTRICLE: Mild dilatation. Mildly decreased right ventricular systolic function. TRICUSPID VALVE: Normal mobility and thickness. No stenosis with moderate regurgitation. Doppler studies reveal moderately (45-60) elevated right-sided pressures. RVSP 55 mmHg MITRAL VALVE: Normal mobility and thickness. No evidence of mitral valve stenosis. Mild mitral annular calcification. Trivial mitral regurgitation. AORTIC VALVE: Normal trileaflet appearance. Thickened aortic valve. Normal leaflet mobility. No evidence of aortic valve stenosis. No aortic regurgitation. AORTIC ROOT: Normal diameter and appearance, measuring 3.4 cm. Ascending aorta is normal in size (3.5 cm). PULMONIC VALVE: Not well visualized. No stenosis. No regurgitation. PERICARDIUM: No evidence of pericardial effusion. IVC: IVC is dilated (3.0 cm), does not fully collapse. PLEURA: CONCLUSION: 1. Mild concentric left ventricular hypertrophy with normal systolic function. LVEF is estimated at 55 to 60%. 2. Mildly dilated right ventricle with mildly reduced systolic function. 3. Moderate to severe biatrial dilatation. 4. Moderate tricuspid regurgitation. 5. Moderately elevated right-sided pressures. RVSP is 55 mmHg. Adult Echocardiography Procedure Report Left Ventricle LVEDD (3.7 - 5.6 cm): 4.17 cm LVESD (2.2 - 4.0 cm): 3.11 cm LVIVS thickness (0.6 - 1.2 cm): 1.15 cm LVPW thickness (0.5 - 1.0 cm): 1.02 cm e': 0.14 m/s E - e': 7.63 LVOT Max Gradient: 2.74 mm[Hg] LVOT Area (cm2): 0.83 m/s Peak Velocity (LVOT): 0.83 m/s Mean Velocity (LVOT): 0.58 m/s LVOT Diameter 2.34 cm Left Atrium LA Volume Index (2D A2C): 56.75 ml/m2 Left Atrium Systolic Dimension: 4.06 cm Mitral Valve MV E to A Ratio: 3.80 Mitral Valve A-Wave Peak Velocity: 0.27 m/s Mitral Valve E-Wave Peak Velocity: 1.04 m/s Right Ventricle Aorta AO Root Diam: 3.44 cm Ascending Ao Diam: 3.47 cm Aortic Valve AoV Area (Peak Vicente): 2.90 cm2, 2.90 cm2 AoV Area (VTI): 3.36 cm2, 3.36 cm2 Peak Velocity(Antegrade Flow): 1.23 m/s Peak Gradient(Antegrade Flow): 6.04 mm[Hg] Mean Velocity(Antegrade Flow): 0.84 m/s Mean Gradient(Antegrade Flow): 3.30 mm[Hg] Velocity Time Integral: 26.10 cm Tricuspid Valve Peak Velocity (Regurgitant Flow): 3.16 m/s, 2.98 m/s, 3.16 m/s Pulmonic Valve Peak Gradient: 2.61 mm[Hg], 3.53 mm[Hg] Right Atrium Right Atrium Systolic Pressure: 56.78 ml, 56.78 ml Dictated by: Yair Elizabeth M.D. on 03/17/2025 at 19:04 Approved by: Yair Elizabeth M.D. on 03/17/2025 at 19:08
== END 2025-03-17 12:54 | disposition home or self-care (01) ==
LOC: CARD 12:54
PROVIDERS: PCP Nurse Practitioner
DX: R06.09 Other forms of dyspnea (principal); I50.31 Acute diastolic (congestive) heart failure; M81.0 Age-related osteoporosis without current pathological fracture; E28.39 Other primary ovarian failure
CPT/HCPCS: 77080; 93306

== ENCOUNTER 2025-03-17 13:37 | Outpatient (OUT) | payer MEDICARE, MEDICAID, SELFPAY | END 2025-03-17 13:38 | disposition home or self-care (01) | LOC: RAD 13:37 | PROVIDERS: PCP Nurse Practitioner; Visit Provider Nurse Practitioner | DX: M81.0 Age-related osteoporosis without current pathological fracture (principal); E28.39 Other primary ovarian failure | CPT/HCPCS: 77080 ==

== ENCOUNTER 2025-04-20 10:26 | Outpatient (OUT) | payer MEDICARE, MEDICAID, SELFPAY ==
--- NOTE | 2025-04-20 11:14 | XR_ITS ---
The [address] [address] Patient Name: RUBI SALOMON MRN: [facility]:[id number] date: 1950 Sex: F Assigned Patient Location: LAB Current Patient Location: LAB Accession/Order Number: [id number] Exam Date: 04/20/2025 11:44 Report Date: 04/20/2025 11:44 At the request of: ROSA VILLA APRN Procedure: XR chest 2V Chest 2 views CLINICAL HISTORY: Jail Use Amiodarone COMPARISON: Chest 08/14/2022 FINDINGS: Heart and mediastinal structures appear unchanged. Degree of vascular congestion is unchanged. Chronic elevation the right hemidiaphragm with associated right basilar atelectasis. No new consolidation pneumothorax pleural effusion or free air. XR/XR chest 2V IMPRESSION: NO ACUTE PROCESS. NO SIGNIFICANT CHANGE IN CHEST FINDINGS COMPARED TO THE 2021 STUDY. Impression dictated by: Carson Tamez Jr., D.O. 04/20/2025 11:44 AM Dictation Location: [place] [address] Electronically authenticated by: [id number] Y Date: 04/20/2025 11:44
[2025-04-20 11:32] LABS: Alanine Aminotransferase 59 U/L (14-59); Albumin Globulin Ratio 0.9; Albumin Level 3.6 g/dL (3.4-5.0); Alkaline Phosphatase 92 U/L (46-116); Anion Gap 13.4; Aspartate Amino Transferase 39 U/L (15-37); Calcium 9.3 mg/dL (8.5-10.1); Carbon Dioxide 31.5 mmol/L (21.0-32.0); Chloride 102 mmol/L (98-107); Estimated GFR (African America 27 (>=60 mL/min/1.73m^2); Estimated GFR (Non-African Ame 23 (>=60 mL/min/1.73m^2); Globulin 4.0 g/dL; Glucose 98 mg/dL (74-106); Potassium 4.9 mmol/L (3.5-5.1); Sodium 142 mmol/L (136-145); Total Protein 7.6 g/dL (6.4-8.2)
[2025-04-20 11:36] LABS: Blood Urea Nitrogen 89.0 mg/dL (7.0-18.0)
== END 2025-04-20 10:27 | disposition home or self-care (01) ==
LOC: LAB 10:28
PROVIDERS: PCP Nurse Practitioner; Visit Provider Nurse Practitioner Family
DX: I50.33 Acute on chronic diastolic (congestive) heart failure (principal); Z79.899 Other long term (current) drug therapy
CPT/HCPCS: 36415; 71046; 80048; 80076

== ENCOUNTER 2025-04-20 10:31 | Outpatient (OUT) | payer MEDICARE, MEDICAID, SELFPAY ==
[2025-04-20 11:45] LABS: Free T3 1.68 pg/mL (2.18-3.98)
[2025-04-20 11:46] LABS: Thyroid Stimulating Hormone 5.922 uIU/mL (0.358-3.740)
== END 2025-04-20 10:32 | disposition home or self-care (01) ==
LOC: LAB 10:32
PROVIDERS: PCP Nurse Practitioner; Visit Provider Nurse Practitioner
DX: E03.9 Hypothyroidism, unspecified (principal); E11.9 Type 2 diabetes mellitus without complications; I50.33 Acute on chronic diastolic (congestive) heart failure; Z79.899 Other long term (current) drug therapy
CPT/HCPCS: 36415; 71046; 80048; 80076; 83036; 84439; 84443; 84481

== ENCOUNTER 2025-05-04 14:13 | Outpatient (OUT) | payer MEDICARE, MEDICAID, SELFPAY ==
[2025-05-04 14:31] LABS: Hemoglobin 9.7 g/dL (12.0-16.0)
[2025-05-04 15:11] LABS: Anion Gap 16.2; Calcium 9.0 mg/dL (8.5-10.1); Carbon Dioxide 27.7 mmol/L (21.0-32.0); Chloride 98 mmol/L (98-107); Estimated GFR (African America 27 (>=60 mL/min/1.73m^2); Estimated GFR (Non-African Ame 22 (>=60 mL/min/1.73m^2); Glucose 138 mg/dL (74-106); Potassium 4.9 mmol/L (3.5-5.1); Sodium 137 mmol/L (136-145)
[2025-05-04 15:15] LABS: Blood Urea Nitrogen 87.0 mg/dL (7.0-18.0); NT Pro B Type Natriuretic Pept 2084.0 pg/mL (<=1800.0)
--- NOTE | 2025-05-04 16:23 | RESP.RT ---
Pt. came in for a PFT, was coopertive but due to extensive cognitive impairment she was unable to follow instructions. We made muliple attempts for TGV/RAW, SVC and FVC but she was unable to follow ATS guidelines for an appropriate test.
== END 2025-05-04 14:14 | disposition home or self-care (01) ==
PROVIDERS: PCP Nurse Practitioner; Visit Provider Nurse Practitioner Family
DX: I50.32 Chronic diastolic (congestive) heart failure (principal); Z79.899 Other long term (current) drug therapy
CPT/HCPCS: 36415; 80048; 83880; 85018

== ENCOUNTER 2025-05-11 13:20 | Outpatient (OUT) | payer MEDICARE, MEDICAID, SELFPAY ==
--- OUTSIDE RECORDS SUMMARY | 2025-05-11 13:40 | XMS_ITS | CCD ---
Author Organization [facility] Care Team Providers Care Manufacturing Lead Name Role Phone ELTAHAWY, EHAB A Admitting Unavailable ELTAHAWY, EHAB A Attending Unavailable UNKNOWN, PHYSICIAN Referring Unavailable UNKNOWN, PHYSICIAN Primary Care Unavailable ARACELI SANDHU Admitting Unava ilable JESSICAMARACELI Attending Unava ilable UNKNOWN, PHYSICIAN Referring Unavailable UNKNOWN, PHYSICIAN Primary Care Unavailable Charles Landeros MD Primary Care Provider Emmanuel SUPERVISOR [employer]TO[employer]ORAT[employer] DIST[employer]ION PLANT OPERATOR, Samantha Unavailable Reginald Aragon MD Unavailable Charles Landeros MD Primary Care Provider [phone] Emmanuel SUPERVISOR [employer]AT[employer] DISTRI[employer] PLANT OPERATOR, Samantha Unavailable [phone] Reginald Aragon MD Unavailable Charles Landerso MD Primary Care Provider Emmanuel SUPERVISOR CYTO[employer] LABORATORY.CHETNA, Samantha Unavailable Reginald Aragon MD Unavailable [phone] TIGRE, DR CHARLES Keith Admitting Unavailable [...] Unavailable SHAWNEE, DR DEEPTI Mondragon Consulting Unavailable MITCHEL WARREN Admitting Unavailable GABRIELLE LIU Consulting Unavailable MITCHEL WARREN Attending Unavailable DR CHARLES LANDEROS Primary Care Unavailable MITCHEL WARREN Unavailable Tigre DOSREY, Charles Gordon Primary Care Provider REGINALD ARAGON Referring Unavailable REGINALD ARAGON Attending Unavailable TIGRE CHARLES GORDON Primary Care Unavailable REGINALD ARAGON Referring Unavailable TIGRE, CHARLES GORDON Primary Care Unavailable REGINALD ARAGON Referring Unavailable REGINALD ARAGON Attending Unavailable TIGRE CHARLES GORDON Primary Care Unavailable TIGRE, CHARLES GORDON Primary Care Unavailable REGINALD ARAGON Referring Unavailable Con MECHANICAL DOOR REPAIRER, Oh Unavailable Ishna Reyez MD Primary Care Provider [phone] Con, LAY OUT FORMER Oh L Attending Unavailable Con, LAY OUT FORMER Oh L Attending Unavailable Con, LAY OUT FORMER Oh L Attending Unavailable Con, LAY OUT FORMER Oh L Attending Unavailable Con, LAY OUT FORMER Oh L Attending Unavailable Con, LAY OUT FORMER Oh L Attending Unavailable KAUSHALDEANN Attending Unavailable JIM LOMBARDI Attending Unavailable Inderjit Cha Attending Unavailab Inderjit Hughes Admitting Unavailab Charles Rain Primary Care Unavailable BRIAN GIL Referring Unavailable CON, OH L Primary Care Unavailable CON, OH L Referring Unavailable CON, HO L Primary Care Unavailable ROSA LYON Referring Unavailable CON, OH L Primary Care Unavailable CON, OH L Referring Unavailable CON, OH L Primary Care Unavailable Con SUPERVISOR CYTOGENET[employer] LABORATORY-CHETNA, Oh L Primary Care Provider ROSA LYON Attending Unavailable RENEE SABILLON Attending Unavailable ROSA LYON Attending Unavailable ROSA LYON Attending Unavailable ROSA LYON Attending Unavailable ROSA LYON Attending Unavailable ROSA LYON Attending Unavailable Allergies Allergy Classification Reported Allergen(s) Allergy Type Date of Onset Reaction(s) Facility (3 sources) Penicillin; Translations: [penicillin] Drug Allergy 01-17-20 19 [facility] Repository (5 sources) Sulfonamides (Antibiotic); Translations: [SULFA (SULFONAMIDE ANTIBIOTICS)] Drug allergy (disorder) 01-28-20 10 [facility] Repository (15 sources) bacitracin / neomycin / polymyxin b; Translations: [NEOMYCIN-BACITRAC IN-POLYMYXIN] Drug Allergy 05-06-20 19 Rash [facility] (16 sources) Clarithromycin; Translations: [CLARITHROMYCIN] Drug Allergy 01-28-20 10 Unknown, Other (See Comments) [facility] (15 sources) Estrogens, Conjugated (MCC); Translations: [CONJUGATED ESTROGENS] Drug Allergy 01-28-20 10 Unknown [facility] (13 sources) PACLitaxel; Translations: [PACLITAXEL] Drug Allergy 08-24-20 19 Other: See Comments, Other (See Comments) [facility] (15 sources) peanut allergenic extract; Translations: [PEANUT] Drug Allergy 05-06-20 Anaphylaxis [facility] (4 sources) Penicillins; Translations: [PENICILLINS] Drug Allergy 05-06-20 Rash [facility] (17 sources) Sulfonamides (Antibiotic) Drug Allergy 01-28-20 10 Unknown, Other (See Comments) [facility] (9 sources) Penicillins Drug Allergy 05-06-20 Rash [facility] (6 sources) Bacitracin / Polymyxin B Drug Allergy 02-10-20 24 [facility] (5 sources) Clarithromycin Propensity to adverse reactions 02-10-20 24 [facility] (5 sources) PACLitaxel Drug Allergy 02-10-20 24 [facility] (5 sources) Peanut oil Propensity to adverse reactions 02-10-20 24 [facility] (5 sources) Penicillins Propensity to adverse reactions 02-10-20 24 [facility] (5 sources) Conjugated Estrogens Propensity to adverse reactions 02-10-20 [facility] (5 sources) Peanut-Containing Drug Products Propensity to adverse reactions 02-10-20 [facility] (5 sources) Flavoring Agent; Translations: [FLAVORING AGENT] Drug Allergy 03-30-20 Other (See Comments) [facility] (3 sources) Shellfish-Derived Products Drug Allergy 03-30-20 [facility] (4 sources) Bacitracin; Translations: [bacitracin] Drug Allergy 05-16-20 [facility] Repository (1 source) peanut; Translations: [Peanuts] Food allergy (disorder) [facility] Repository (1 source) Peanut butter; Translations: [Peanut butter] Food allergy (disorder) [facility] Repository (5 sources) Shrimp product; Translations: [Shrimp] Food allergy (disorder) 05-07-20 [facility] Repository (1 source) Sulfonamides (Antibiotic); Translations: [sulfa drugs] Propensity to adverse reactions (disorder) [facility] Repository (6 sources) Pineapple; Translations: [Pineapple] Food allergy (disorder) 05-07-20 [facility] Repository (1 source) Clarithromycin Drug Allergy 05-16-20 [facility] Repository (2 sources) Estrogens, Conjugated (MCC); Translations: [ESTROGENS, CONJUGATED] Drug Allergy 05-16-20 [facility] Repository (1 source) Fish Oils Drug Allergy 06-12-20 [facility] Repository (1 source) Neomycin Drug Allergy 05-16-20 [facility] Repository (1 source) PACLitaxel Drug Allergy 05-16-20 [facility] Repository (1 source) peanut allergenic extract Drug Allergy 05-16-20 [facility] Repository (1 source) Penicillins Drug allergy (disorder) 06-12-20 [facility] Rep[facility] (1 source) Sulfacetamide Drug Allergy 06-12-20 [facility] Repository (1 source) Sulfonamides (Antibiotic) Drug allergy (disorder) 05-16-20 [facility] Repository (1 source) Sulfur Drug Allergy 06-12-20 [facility] Rep[facility] (1 source) tree nut, unspecified Drug allergy (disorder) 06-12-20 [facility] Repository (2 sources) polymyxin B; Translations: [POLYMYXIN B] Drug allergy (disorder) 05-16-20 [facility] Repository (2 sources) Penicillins Propensity to adverse reactions to drug 05-06-20 Rash [facility] (1 source) Bromelains; Translations: [BROMELAINS] Drug Allergy 04-25-20 [facility] Repository (2 sources) Neomycin; Translations: [NEOMYCIN SULFATE] Drug Allergy 04-25-20 [facility] Repository (1 source) Polymyxin B Drug Allergy 04-25-20 23 [facility] Medications Current Medications Medication Drug Class(es) Dates Sig (Normalized) Sig (Original) acetaminophen 500 mg oral tablet (12 sources) take 2 tablets by mouth every six hours as needed for pain acetaminophen (TYLENOL) 500 mg tablet Take 2 tablets (1,000 mg total) by mouth every 6 (six) hours as needed for pain. Active Comment on above: Take 1,000 mg [...] 1 tablet by zohreh th once daily. [id number] 200 actuat albuterol 0.09 mg/actuat metered dose inhaler (17 sources) beta2-Adrenergic Agonist take 2 puff(s) by inhalation every six hours as needed for wheezing albuterol (PROVENTIL HFA;VENTOLIN HFA) 90 mcg/actuation inhaler Inhale 2 puffs every 6 (six) hours as needed for wheezing. Active take 1 puff(s) by in halation every four hours albuterol HFA 90 mcg/act inhaler Inhale 1 puff every 4 (four) hours if needed Active Comment on above: Inhale 2 Puffs as in structed every 6 hours as needed. albuterol 0.833 mg/ml / ipratropium bromide 0.167 mg/ml inhalation solution (17 sources) Anticholinergic, beta2-Adrenergic Agonist Start: 0 take 1 dose by inhalation four times daily ipratropium-albute rol (DUONEB) 0.5 mg-3 mg(2.5 mg base)/3 mL nebu INHALE THE CONTENTS OF 1 VIAL THROUGH NEBULIZER QID 02/27/2020 Active ipratropium-albu terol (DUO-NEB) 0.5 mg-3 mg(2.5 mg base)/3 mL nebulizer Inhale 3 mL by nebulization as needed for shortness of breath or wheezing. Active take 3 mL by inhalat ion five times daily ipratropium-albuterol (DUO-NEB) 0.5 mg-3 mg(2.5 mg base)/3 mL nebulizer Inhale 3 mL by nebulization 5 (five) times a day. Active ipratropium-albu terol (Duo-Neb) 0.5-2.5 mg/3 mL nebulizer solution Take 3 mL by nebulization every 6 (six) hours Active Comment on above: INHALE THE CONTENTS OF 1 VIAL THROUGH NEBULIZER QID apixaban 5 mg oral tablet (17 sources) Factor Xa Inhibitor Start: 03-17-20 take 1 tablet by mouth twice daily ELIQUIS 5 mg tab(s) Take 5 mg by mouth twice daily. 03/17/2019 Active Comment on above: Take 5 mg by mouth t wice daily. ARIPiprazole 15 mg oral tablet (7 sources) Atypical Antipsychotic take 1 tablet by mouth once daily ARIPiprazole (Abilify) 15 MG tablet Take 15 mg by mouth Daily 1 1/2 tablet Active Comment on above: Take 15 mg by mouth once daily. atorvastatin 40 mg oral tablet (17 sources) HMG-CoA Reductase Inhibitor Start: 01-17-20 atorvastatin (LIPITOR) 40 mg tablet Take 40 mg by mouth as directed. Takes 80mg in the AM and 40mg in the Pm 3 01/16/2019 Active Comment on above: Take 40 mg by mouth once daily. 1 ml benralizumab 30 mg/ml auto-injector (17 sources) Interleukin-5 Receptor alpha-directed Cytolytic Antibody Start: 02-22-20 benralizumab (FASENRA PEN) 30 mg/mL auto-injector 1 mL (30 mg total) every 60 (sixty) days. 02/21/2021 Active Start: 02-21-2021 FASENRA PEN 30 mg/mL 02/21/2021 Active benralizumab (Fa senra Pen) 30 MG/ML injection Inject 30 mg under the skin Active brexpiprazole 2 mg oral tablet (5 sources) Atypical Antipsychotic Start: 04-08-2025 take 1 tablet by mouth in the morning REXULTI 2 mg tablet Take 1 tablet (2 mg total) by mouth in the morning. 04/08/2025 Active Start: 07-23-2024 Rexulti 0.5 MG tablet 0.5 mg 07/23/2024 Active cholecalciferol 0.05 mg oral capsule (17 sources) Vitamin D Start: 03-01-2019 VITAMIN D-3 2, 000 unit cap 2,000 Units once daily. 5 03/01/2019 Active take 2 tablets by mouth in the m orning cholecalciferol (VITAMIN D3) 1,000 units tablet Take 2 tablets (2,000 Units total) by mouth in the morning. Active Comment on above: 2,000 Units once linda ly. dapagliflozin 5 mg oral tablet (17 sources) Sodium-Glucose Cotransporter 2 Inhibitor Start: 11-30-2020 dapagliflozin (FARXIGA) 5 mg tablet 1 tablet (5 mg total) in the morning. 11/30/2020 Active Start: 11-30-2020 take 2 tablets by mo ut once daily FARXIGA 5 mg tablet Take 10 mg by mouth once daily. 11/30/2020 Active Comment on above: Take 10 mg by mouth once daily. fluticasone propionate 0.05 mg/actuat metered dose nasal spray (17 sources) Corticosteroid Start: 02-26-2019 fluticasone (FLONASE) 50 mcg/actuation nasal spray 2 Sprays once daily. 0 02/26/2019 Active take 2 spray(s) nasa l route in the morning fluticasone propionate (FLONASE) 50 mcg/actuation nasal spray Administer 2 sprays into each nostril in the morning. Active take 1 spray(s) nasal route once daily fluticasone (Flonase) 50 MCG/ACT nasal spray Administer 1 spray into each nostril Daily Active Comment on above: 2 Sprays once daily. 60 actuat fluticasone propionate 0.5 mg/actuat / salmeterol 0.05 mg/actuat dry powder inhaler (17 sources) Corticosteroid, beta2-Adrenergic Agonist Start: 03-03-2019 ADVAIR DISKUS 500-50 mcg/dose dsdv 1 Puff twice daily. 5 03/03/2019 Active take 1 puff(s) by in halation in the morning fluticasone propion-salmeterol (ADVAIR) 500-50 mcg/dose DISKUS Inhale 1 puff in the morning and 1 puff before bedtime. Active Fluticasone-Salm eterol (Advair Diskus) 500-50 MCG/ACT aerosol powder Inhale Active Comment on above: 1 Puff twice daily. 30 actuat fluticasone furoate 0.1 mg/actuat / vilanterol 0.025 mg/actuat dry powder inhaler (6 sources) Corticosteroid, beta2-Adrenergic Agonist Start: 01-12-2025 take 1 puff(s) by mouth once daily Breo Ellipta 100-25 MCG/ACT aerosol powder INHALE 1 PUFF BY MOUTH EVERY DAY. RINSE AFTER USE 90 DAYS 01/12/2025 Active Start: 09-10-2023 BREO ELLIPTA 1 00-25 mcg/dose inhaler 09/10/2023 Active take 1 puff(s) by in halation in the morning BREO ELLIPTA 100-25 mcg/dose blister with device Inhale 1 puff in the morning. Active furosemide 20 mg oral tablet (17 sources) Loop Diuretic Start: 08-19-2023 take 2 tablets by mouth once daily furosemide (Lasix) 20 MG tablet Take 40 mg by mouth Daily 08/19/2023 Active Start: 01-16-2019 take 1 tablet by zohreh th once daily furosemide (LASIX) 40 mg tablet Take 40 mg by mouth once daily. 3 01/16/2019 Active Start: 01-16-2019 take 1 tablet by zohreh th once daily furosemide (LASIX) 20 mg tablet [...] by mouth once daily. 3 01/16/2019 Active take 4 tablets by mo uth twice daily furosemide (LASIX) 20 mg tablet Take 4 tablets (80 mg total) by mouth 2 (two) times a day. Active Comment on above: Take 20 mg by mouth once daily. Take 40 mg by mouth once daily. Take 60 mg by mouth once daily. loratadine 10 mg oral tablet (17 sources) Start: 05-19-2019 take 1 tablet by mouth once daily loratadine (CLARITIN) 10 mg tablet Take 10 mg by mouth once daily. 0 05/19/2019 Active Comment on above: Take 10 mg by mouth once daily. losartan potassium 50 mg oral tablet (17 sources) Angiotensin 2 Receptor Amber Start: 03-13-2019 take 1 tablet by mouth once daily losartan (COZAAR) 100 mg tablet Take 100 mg by mouth once daily. 3 03/13/2019 Active Start: 03-13-2019 take 1 tablet by zohreh once daily losartan (COZAAR) 50 mg tablet Take 50 mg by mouth once daily. 3 03/13/2019 Active take 2 tablets by mo [facility] once daily losartan (Cozaar) 50 MG tablet Take 100 mg by mouth Daily Active Comment on above: Take 100 mg by mouth once daily. metFORMIN hydrochloride 500 mg oral tablet (17 sources) Biguanide Start: 0 take 1 tablet by mouth once daily at breakfast metFORMIN (GLUCOPHAGE) 500 mg tablet Take 1 tablet (500 mg total) by mouth daily with breakfast. 08/05/2020 Active Start: 08-05-2020 take 1 tablet by zohreh twice daily metFORMIN (GLUCOPHAGE) 500 mg tablet TK 1 T PO BID 08/05/2020 Active Comment on above: TK 1 T PO BID metoprolol tartrate 100 mg oral tablet (17 sources) beta-Adrenergic Amber Start: 06-18-2023 take 1 tablet by mouth once daily metoprolol tartrate (Lopressor) 100 MG tablet Take 100 mg by mouth Daily 06/18/2023 Active Start: 03-13-2019 take 1 tablet by zohreh twice daily metoprolol tartrate, short acting, (LOPRESSOR) 50 mg tablet Take 50 mg by mouth twice daily. 5 03/13/2019 Active Start: 03-13-2019 metoprolol tar trate, short acting, (LOPRESSOR) 50 mg tablet Take 100 mg by mouth two times a day. 5 03/13/2019 Active Comment on above: Take 50 mg by mouth twice daily. Take 100 mg by mouth two times a day. montelukast 10 mg oral tablet (17 sources) Leukotriene Receptor Antagonist Start: 0 take 1 tablet by mouth once daily montelukast (SINGULAIR) 10 mg tablet TK 1 T PO QD 03/08/2020 Active Comment on above: TK 1 T PO QD multivit-min/iron/fol ic/lutein (MULTIVITAMIN WOMEN 50 PLUS ORAL) (2 sources) take 1 tablet by mouth once daily multivit-min/iron/fo lic/lutein (MULTIVITAMIN WOMEN 50 PLUS ORAL) Take 1 tablet by mouth daily. Active nystatin 100 unt/mg topical powder (10 sources) [...] AFFECTED AREA ondansetron 8 mg oral tablet (17 sources) Serotonin-3 Receptor Antagonist Start: 9 take 1 tablet by mouth every eight hours as needed ondansetron (ZOFRAN) 8 mg tablet Take 1 tablet by mouth every 8 hours as needed for Nausea/Vomiting. 30 tablet 2 04/27/2019 Active take 1 tablet by mouth once luis y ondansetron (Zofran) 8 MG tablet Take 8 mg by mouth Daily Active Comment on above: Take 1 tablet by zohreh th every 8 hours as needed for Nausea/Vomiting. pantoprazole 40 mg delayed release oral tablet (17 sources) Proton Pump Inhibitor take 1 tablet by mouth in the morning pantoprazole (PROTONIX) 40 mg EC tablet Take 1 tablet (40 mg total) by mouth in the morning. Active Comment on above: Take 40 mg by mouth once daily. potassium chloride 20 meq extended release oral tablet (20 sources) Start: 04-20-20 22 End: 10-11-19 23 take 2 tablets by mouth once daily potassium chloride 20 mEq TbER TAKE 2 TABLETS BY MOUTH EVERY DAY 180 tablet 10/11/2022 Active Start: 12-04-2021 take 2 tablets by [facility] once daily potassium chloride 20 mEq TbER TAKE 2 TABLETS BY MOUTH EVERY DAY 180 tablet 0 12/04/2021 Active Start: 02-16-2021 take 2 tablets by [facility] once daily potassium chloride ER (K-DUR, KLOR-CON) 20 mEq tablet Take 2 tablets by mouth once daily. 180 tablet 1 02/16/2021 Active take 1 tablet by zohreh th in the morning potassium chloride (KLOR-CON M 20) 20 MEQ CR tablet Take 1 tablet (20 mEq total) by mouth in the morning and 1 tablet (20 mEq total) before bedtime. Active potassium chlori de (Klor-Con) 20 MEQ packet 1 (one) time each day at the same time Active Comment on above: Take 2 tablets by mo ut once daily. TAKE 2 TABLETS BY MO UT EVERY DAY predniSONE 10 mg oral tablet (17 sources) Start: 05-02-2020 take 3 tablets by mouth once daily in the morning predniSONE (DELTASONE) 10 mg tablet TK 3 TS PO QAM FOR 3 DAYS FOR ASTHMA FLARE 05/02/2020 Active take 1 tablet by mouth in the mo rning predniSONE (DELTASONE) 20 mg tablet Take 1 tablet (20 mg total) by mouth in the morning. Active predniSONE (Delt asone) 10 MG tablet Take 10 mg by mouth 3 po qam for 3 days Active Comment on above: TK 3 TS PO QAM FOR 3 DAYS FOR ASTHMA FLARE prochlorperazine 10 mg oral tablet (12 sources) Phenothiazine Start: 2018 take 1 tablet by mouth every six hours as needed prochlorperazine (COMPAZINE) 10 mg tablet Take 1 tablet by mouth every 6 hours as needed. 30 tablet 2 04/27/2019 Active Comment on above: Take 1 tablet by [facility] every 6 hours as needed. sertraline 50 mg oral tablet (17 sources) Serotonin Reuptake Inhibitor Start: 2018 take [...] twice daily spironolactone 25 mg oral tablet (8 sources) Aldosterone Antagonist Start: 2022 End: 2025 take 1 tablet by mouth in the morning spironolactone (ALDACTONE) 25 mg tablet Take 1 tablet (25 mg total) by mouth in the morning. 02/24/2025 02/24/2026 Active Comment on above: Take 25 mg by mouth once daily. 60 actuat tiotropium 0.95318 mg/actuat inhalation spray (17 sources) Anticholinergic Start: 2018 take 1.25 ug by inhalation once daily SPIRIVA RESPIMAT 1.25 mcg/actuation mist Inhale 2 Puffs as instructed once daily. 12 03/12/2019 Active take 2 puff(s) by inhalation onc e daily tiotropium bromide 1.25 mcg/actuation mist Inhale 2 puffs daily. Active tiotropium (Spir ita Respimat) 1.25 MCG/ACT inhaler Inhale 2 puffs Daily Active Comment on above: Inhale 2 Puffs as in structed once daily. 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; Translations: [Malignant neoplasm of overlapping sites of right female breast] Onset: 04-20-2019 Chronic Cardiac dysrhythmias (3 sources) Paroxysmal atrial fibrillation; Translations: [Paroxysmal atrial fibrillation] Onset: 12-08-2021 03-30-2025 Chronic Chronic kidney disease (3 sources) Chronic kidney disease, unspecified; Translations: [Chronic kidney disease stage 3B ] Onset: 05-05-2024 05-06-2025 Chronic Congestive heart failure; nonhypertensive (10 sources) Chronic heart failure co-occurrent with normal ejection fraction; Translations: [Chronic diastolic (congestive) heart failure] Onset: 06-18-2023 03-30-2025 Chronic Coronary atherosclerosis and other heart disease (6 sources) Old myocardial infarction; Translations: [History of acute ST segment elevation myocardial infarction] Onset: 01-09-2019 03-30-2025 Chronic Deficiency and other anemia (7 sources) Iron deficiency anemia; Translations: [Other iron deficiency anemias] Onset: 06-17-2019 Episodic Developmental disorders (3 sources) Intellectual disability; Translations: [Unspecified intellectual disabilities] Onset: 03-30-2025 03-30-2025 Chronic Diabetes mellitus without complication (5 sources) Type 2 diabetes mellitus without complications; Translations: [Type 1 diabetes mellitus] Onset: 01-09-2019 03-30-2025 Chronic Diseases of white blood cells (3 sources) Familial eosinophilia; Translations: [Peripheral eosinophilia] Onset: 03-30-2025 03-30-2025 Chronic Disorders of lipid metabolism (1 source) Hyperlipidemia, unspecified; Translations: [Hyperlipidemia, unspecified] Onset: 05-05-2024 Chronic Esophageal disorders (4 sources) Gastro-esophageal reflux disease without esophagitis; Translations: [Gastroesophageal reflux disease] Onset: 01-09-2019 03-30-2025 Chronic Essential hypertension (4 sources) Essential (primary) hypertension; Translations: [Hypertensive disorder] Onset: 01-09-2019 03-30-2025 Chronic Hypertension with complications and secondary hypertension (2 sources) Hypertensive heart disease with heart failure; Translations: [Hypertensive heart disease with heart failure] Onset: 09-09-2024 Chronic Inflammation; infection of eye (except that caused by tuberculosis or sexually transmitteddisease) (3 sources) Allergic conjunctivitis of bilateral eyes; Translations: [Acute atopic conjunctivitis, bilateral] Onset: 03-30-2025 03-30-2025 Episodic Nutritional deficiencies (3 sources) Vitamin D deficiency; Translations: [Vitamin D deficiency, unspecified] Onset: 03-30-2025 03-30-2025 Chronic Osteoarthritis (1 source) Unspecified osteoarthritis, unspecified site; Translations: [UNSPECIFIED OSTEOARTHRITIS UNS SITE] Onset: 07-25-2022 Chronic Other aftercare (1 source) Other fpc (current) drug therapy; Translations: [OTH 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 ATTENDANT CURRENT DRUG THERAPY] Onset: 07-25-2022 Episodic Other ear and sense organ disorders (3 sources) Sensorineural hearing loss, bilateral; Translations: [Sensorineural hearing loss, bilateral] 03-24-2025 Chronic Other ear and sense organ disorders (1 source) Bilateral tinnitus; Translations: [Tinnitus, bilateral] 03-24-2025 Episodic Other ear and sense organ disorders (1 source) Impaired auditory discrimination; Translations: [Other abnormal auditory perceptions, bilateral] 03-24-2025 Episodic Other lower respiratory disease (1 source) Shortness of breath; Translations: [SHORTNESS OF BREATH] Onset: 07-25-2022 Episodic Other lower respiratory disease (1 source) Multiple nodules of lung; Translations: [Other nonspecific abnormal finding of lung field] 08-17-2021 Episodic Other lower respiratory disease (2 sources) Other forms of dyspnea; Translations: [Other forms of dyspnea] Onset: 02-24-2025 Episodic Other nutritional; endocrine; and metabolic disorders (1 source) Morbid (severe) obesity due to excess calories; Translations: [MORBID SEVERE OBES D/T EXCESS SUNIL] Onset: 07-25-2022 Chronic Other nutritional; endocrine; and metabolic disorders (3 sources) Body mass index 30+ - obesity; Translations: [Body mass index (BMI) 38.0-38.9, adult] Onset: 03-30-2025 03-30-2025 Chronic Other nutritional; endocrine; and metabolic disorders (3 sources) Morbid obesity; Translations: [Morbid (severe) obesity due to excess calories] Onset: 09-17-2023 03-30-2025 Chronic Other nutritional; endocrine; and metabolic disorders (2 sources) Obesity, unspecified; Translations: [Obesity, unspecified] Onset: 02-24-2025 Chronic Other nutritional; endocrine; and metabolic disorders (1 source) History of iron deficiency; Translations: [Personal history of other endocrine, nutritional and metabolic disease] Episodic Other upper respiratory disease (3 sources) Allergic rhinitis; Translations: [Allergic rhinitis, unspecified] Onset: 03-30-2025 03-30-2025 Chronic Other upper respiratory infections (3 sources) Sinusitis; Translations: [Chronic sinusitis, unspecified] Onset: 03-22-2023 03-30-2025 Chronic Pneumonia (except that caused by tuberculosis or sexually transmitted disease) (5 sources) Lobar pneumonia, unspecified organism; Translations: [Bronchopneumonia, unspecified organism] Onset: 07-25-2022 Episodic Residual codes; unclassified (1 source) History of right mastectomy; Translations: [Acquired absence of right breast and nipple] 09-12-2023 Episodic Residual codes; unclassified (2 sources) Edema, unspecified; Translations: [Edema, unspecified] Onset: 03-30-2025 Episodic Respiratory failure; insufficiency; arrest (adult) (3 sources) Chronic respiratory failure; Translations: [Chronic respiratory failure, unspecified whether with hypoxia or hypercapnia] Onset: 09-17-2023 03-30-2025 Chronic Schizophrenia and other psychotic disorders (5 sources) Psychotic disorder; Translations: [Unspecified psychosis not due to a substance or known physiological condition] Onset: 02-10-2024 02-10-2024 Chronic Unclassified (2 sources) COUGH, UNSPECIFIED; Translations: [COUGH, UNSPECIFIED] Onset: 07-25-2022 Unclassified (1 source) CONTACT W/AND (SUSP) EXPOS COVID-19; Translations: [CONTACT W/AND (SUSP) EXPOS COVID-19] Onset: 07-25-2022 Unclassified (2 sources) Other persistent atrial fibrillation; Translations: [Other persistent atrial fibrillation] Onset: 03-30-2025 Past or Other Problems Problem Classification Problem Date Documented Da te Episodic/Chronic Deficiency and other anemia (11 sources) Iron deficiency anemia secondary to inadequate dietary iron intake; Translations: [Other iron deficiency anemias] Onset: 06-17-2019 06-17-2019 Episodic Fluid and electrolyte disorders (3 sources) Disorder of fluid AND/OR electrolyte; Translations: [Other disorders of electrolyte and fluid balance, not elsewhere classified] Onset: 09-17-2023 03-30-2025 Episodic Other aftercare (3 sources) Long-term 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 steroid; Translations: [MCFP (current) use of inhaled steroids] Onset: 09-17-2023 03-30-2025 Episodic Residual codes; unclassified (2 sources) Estrogen receptor negative status [ER-]; Translations: [ESTROGEN RECEPTOR NEGATIVE STATUS] Onset: 04-20-2019 Episodic Residual codes; unclassified (5 sources) Altered mental status; Translations: [Altered mental status, unspecified] Onset: 02-10-2024 02-10-2024 Episodic Residual codes; unclassified (5 sources) Hallucinations; Translations: [Hallucinations, unspecified] Onset: 02-10-2024 02-10-2024 Episodic Respiratory failure; insufficiency; arrest (adult) (3 sources) Acute hypoxemic respiratory failure; Translations: [Acute respiratory failure with hypoxia] Onset: 01-09-2019 03-30-2025 Episodic Unclassified (1 source) COUGH, UNSPECIFIED; Translations: [COUGH, UNSPECIFIED] Onset: 07-23-2022 Results Test Name Value Interpretation Reference Range Facility Orders Onlyon 04-26-2025 Orders Only [id number] Kaylie Salomon 1950 F Date Provider Department [place] 04/26/2025 [id number], HISTORICAL [facility] Family History Problem Relation Age of Onset Heart failure Mother Family Status - Relation Status Age at Mother Father [facility] 37on 04-22-2025 37 *EKG today shows you are in a.flutter. *Recent labs show that your thyroid function is slightly elevated. *Given that she is no longer maintaining sinus rhythm, will stop amiodarone. *Your heart failure exacerbation is better, you are down about 22# since we last saw you 3 weeks ago. *Your kidney function has worsened, likely because we pulled so much fluid off. *Please get follow-up lab work in 1 week. *Follow-up with Dr. Gil to discuss management for a.fib/flutter. *Recommend you establish care with a electron beam welder setter. *Continue to limit your fluids to 2L a day along with eating a low sodium diet. *Continue to monitor daily weights and monitor BP and HR daily. [facility] Office Visiton 04-22-2025 Follow-up visit [id number] Kaylie Salomon 1950 F Date Provider Department [place] 04/22/2025 Bryant-ROSA LYON AFUA [facility] Family History Problem Relation Age of Onset Heart failure Mother Family Status - Relation Status Age at Mother Father Level of Service:95[address] CT OFFICE/OUTPATIENT ESTABLISHED MOD MDM 30 MIN [facility] 36on 04-20-2025 36 Any chance they can add on a BNP? [facility] 36 Do we have the rest of her labs? [facility] 36 TB lab called to report a critical BUN of 89. [facility] Ambulatory Visit Summaryon 0 04-06-2025 Ambulatory Visit Summary Ambulatory Visit Summary AIMENUNUKAYLIE :1950 Visit Date:04/06/2025 Ambulatory Visit Instructions Your Diagnosis Morbid obesity with BMI of 40.0-44.9, adult Class 3 severe obesity due to excess calories with body mass index (BMI) of 45.0 to 49.9 in adult Non-smoker Your Care Team Attending Physician - Oh Wynne Primary Care Physician - Oh Wynne This Is Your Medications List Misc Prescription (rollator walker) Oxygen (Oxygen - for Home) acetaminophen albuterol (Ventolin HFA 90 mcg/inh Aerosol-Adpt) albuterol-ipratropium (albuterol-ipratropium Inh Juanis 3 mL UD) amiodarone (amiodarone 200 mg Tab) apixaban (apixaban 5 mg oral tablet) atorvastatin (atorvastatin 40 mg Tab) benralizumab (Fasenra Pen 30 mg/mL subcutaneous solution) brexpiprazole (Rexulti 0.5 mg oral tablet) cholecalciferol (Vitamin D3 2000 intl units oral Tab) dapagliflozin (dapagliflozin 10 mg oral tablet) fluticasone nasal (fluticasone Nasal 0.05 mg/inh [place]) fluticasone-vilanterol (Breo Ellipta 100 mcg-25 mcg inhalation powder) furosemide (furosemide 20 mg Tab) loratadine (loratadine 10 mg Tab) losartan (losartan 100 mg Tab) metformin (metformin 500 mg Tab) metoprolol (metoprolol tartrate 100 mg Tab) montelukast (montelukast 10 mg Tab) nystatin ondansetron pantoprazole (Pantoprazole [address] Tab) potassium chloride (Potassium Chloride (Eqv-K-Tab) 20 mEq oral tablet, extended release) sertraline (sertraline 50 mg Tab) spironolactone (spironolactone 25 mg Tab) Procedures Performed CE - Cataract extraction (11/28/2022), Cardiac catheterization, Mastectomy of right breast. Discharge Vitals Temperature (Temporal Artery) 36.1 ???C Heart Rate (Peripheral) 72 Respiratory Rate 18 Blood Pressure 132/82 Height 164.0 cm Height 65 in Weight 120.3 kg Weight 265.216 lb BMI 44.73 What to do next Scheduled Follow-Up Appointments Saturday2025 1:20 PM EST With: Oh Wynne Where: [address] [address]- Saturday2025 11:00 AM EDT With: [facility]: [facility] [address] [place] [address]- Medications What How Much When Why Instructions Unchanged acetaminophen As needed for Pain/Fever Unchanged albuterol (Ventolin HFA 90 mcg/ inh Aerosol-Adpt) Unchanged albuterol-ipratropium (albuterol-ipratropium Inh Juanis 3 mL UD) INHALE THE CONTENTS OF 1 VIAL THROUGH NEBULIZER FOUR TIMES DAILY Unchanged amiodarone (amiodarone 200 mg Tab) By Mouth Every day Unchanged apixaban (apixaban 5 mg oral tablet) 1 Tablets By Mouth 2 times a day Unchanged atorvastatin (atorvastatin 40 mg Tab) See instructions TAKE 1 TABLET BY MOUTH DAILY Unchanged benralizumab (Fasenra Pen 30 mg/ mL subcutaneous solution) Every 8 weeks Unchanged brexpiprazole (Rexulti 0.5 mg oral tablet) 2 Milligram TAKE 1 TABLET BY MOUTH DAILY AT BEDTIME Unchanged cholecalciferol (Vitamin D3 2000 intl units oral Tab) 50 Microgram By Mouth Every day Unchanged dapagliflozin (dapagliflozin 10 mg oral tablet) 1 Tablets By Mouth Every day Unchanged fluticasone nasal (fluticasone Nasal 0.05 mg/ inh [place]) See instructions INSTILL 2 SPRAYS INTO EACH NOSTRIL DAILY Unchanged fluticasone-vilanterol (Breo Ellipta 100 mcg-25 mcg inhalation powder) 1 Puffs Inhalation Every day 30 dose unit Unchanged furosemide (furosemide 20 mg Tab) 40 Milligram By Mouth 2 times a day Unchanged loratadine (loratadine 10 mg Tab) See instructions TAKE 1 TABLET BY MOUTH DAILY Unchanged losartan (losartan 100 mg Tab) 1 [...] 1 Tablets By Mouth Every day Unchanged nystatin By Mouth Unchanged ondansetron As needed for Nausea Unchanged Oxygen (Oxygen - for Home) 2 Liter/minute At bedtime Oxygen - Continuous or Nocturnal Diagnosis: Portable 02 for physician visits, oxygen conservation Unchanged pantoprazole (Pantoprazole [address] Tab) By Mouth Every day Unchanged potassium chloride (Potassium Chloride (Eqv-K-Tab) 20 mEq oral tablet, extended release) 1 Tablets By Mouth 2 times a day Unchanged sertraline (sertraline 50 mg Tab) See instructions TAKE 1 TABLET BY MOUTH DAILY Unchanged spironolactone (spironolactone 25 mg Tab) By Mouth Every day Allergies Peanut butter (Unknown) Peanuts (Hives) Pineapple (Unknown) Shrimp (Unknown) bacitracin clarithromycin conjugated estrogens penicillin (U (more content not included)... Normal [facility] Office/Clini c Noteon 04-06-2025 Family Medicine Office/Clinic Note Family Medicine Office/Clinic Note HPI Staff Patient is presenting for 6 month follow up Patient is here for follow up on Diabetes. How often are you checking your blood sugars? 0 times per day - does not have a test kit at home What are your average readings? none Paresthesias, Ulcerations or sores? no Lisinopril, aspirin, statin therapy? Yes Foot Exam: no Eye Exam: yes Last A1c: 6.8% (10/28/24) PHQ: 5 FILIPE: 4 History of Present Illness pt presents today for 6 month follow up for diabetes. Review of Systems PHQ Score Initial Depression Screen Score: 3 SCORE Detailed Depression Screen Score: 5 Total Depression Screen Score: 8 Physical Exam Vitals & Measurements T: 36.1 ???C(Temporal Artery) HR: 72(Peripheral) RR: 18 BP: 132/82 SpO2: 99% HT: 164.0 cm HT: 65 in WT: 120.3 kg WT: 265.216 lb BMI: 44.73 General: alert, no acute distress ENMT: oral [...] mellitus with diabetic chronic kidney disease) pt presents today for 6 month follow up on diabetes. will check HGBA1C and CMP and thyroid studies when she has her other labs done ordered by cardiology. lab order for [facility] provided. RTC 6 months 2. (HFpEF) heart failure with preserved ejection fraction (I50.30: Unspecified diastolic (congestive) heart failure) followed by cardiology. taking lasix. nurse checks her weight daily. 3. Morbid obesity with BMI of 40.0-44.9, adult (E66.01: Morbid (severe) obesity due to excess calories) BMI education given 4. Class 3 severe obesity due to excess calories with body mass index (BMI) of 45.0 to 49.9 in adult (E66.813: Obesity, class 3) see above 5. Non-smoker (Z78.9: Other specified health status) continue not smoking Orders: furosemide, 40 mg, Oral, BID, # 180 tab(s), Refills(s) 0, Pharmacy: [id number], 164, cm, 03/04/25 11:49:00 EDT, Height/Length Dosing, 122.2, kg, 03/04/25 11:49:00 EDT, Weight Dosing Follow-up No qualifying data available Problem List/Past Medical History Ongoing (HFpEF) heart failure with preserved ejection fraction Allergic rhinitis Chronic respiratory failure with hypoxia Coronary arteriosclerosis in [place] artery Decreased ambulation status Drooling Food allergy Gastroesophageal reflux disease Generalized weakness History of breast cancer Hyperlipidemia due to type 2 diabetes mellitus Hypertensive disorder 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 Hypoxemia Iron deficiency anemia secondary to inadequate dietary iron intake 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 Medications acetaminophen, PRN albuterol-ipratropium Inh Juanis 3 mL UD amiodarone 200 mg Tab, Oral, Daily apixaban 5 mg oral tablet, 5 mg= 1 tab(s), Oral, BID, 3 refills atorvastatin 40 mg Tab, See Instructions Breo Ellipta 100 mcg-25 mcg inhalation powder, 1 puff(s), Inhalation, Daily, 11 refills dapagliflozin 10 mg oral tablet, 10 mg= 1 tab(s), Oral, Daily Fasenra Pen 30 mg/mL subcutaneous solution fluticasone Nasal 0.05 mg/inh [place], See Instructions furosemide 20 mg Tab, 40 mg, Oral, BID loratadine 10 mg Tab, See Instructions losartan 100 mg Tab, 100 mg= 1 tab(s), Oral, Daily, 4 refills metformin 500 mg Tab, See Instructions, 4 refills metoprolol tartrate 100 mg Tab, 100 mg= 1 tab(s), Oral, BID montelukast 10 mg Tab, 10 mg= 1 tab(s), Oral, Daily, 3 refills nystatin, Oral ondansetron, CT (more content not included)... Normal [facility] Comment on above: Result Comment: Elec tronically Signed By: Oh Wynne\.br\Date and Time Signed: 04/06/25 15:31 EDT 37on 03-30-2025 37 *Increase lasix to 80mg twice daily *Will also give metolazone 5mg daily for 2 days. This should be taking 30-60 minutes prior to AM dose of lasix. *Follow-up BMP/BNP in 2 weeks *Continue to monitor daily weights (first thing in the AM, after voiding, before eating) *Limit caloric intake to 1800 calories a day *Limit fluids to 2L a day *Limit sodium intake Normal [facility] Office Visiton 03-30-2025 Follow-up visit [id number] Kaylie Salomon 1950 F Date Provider Department Center 03/30/2025 ROSA LÓPEZ Family History Problem Relation Age of Onset Heart failure Mother Family Status - Relation Status Age at Mother Father Level of Service:77283 CT OFFICE/OUTPATIENT ESTABLISHED MOD MDM 30 MIN Normal [facility] Orders Onlyon 03-30-2025 Orders Only [id number] Kaylie Salomon 1950 F Date Provider Department Center 03/30/2025 [id number], MARLEN Hardin Family History Problem Relation Age of Onset Heart failure Mother Family Status - Relation Status Age at Mother Father Normal [facility] 36on 03-26-2025 36 PT COMING IN MARCH 30 2025 [facility] Auditory function testson Bilateral Mild slopi ng to profound sensorineural hearing loss Recommendations: ENT for medical clearance for hearing aids Schedule Hearing Aid Discussion and apply to Medicaid for [place] for hearing aids Pt relies heavily on lip reading to understand speech. It is important to first get pt's attention and then look at pt when communicating. [facility] Orders Onlyon 03-05-2025 Orders Only [id number] Kaylie Salomon 1950 F Date Provider Department Center 03/05/2025 [id number] SABILLON Family History Problem Relation Age of Onset Heart failure Mother Family Status - Relation Status Age at Mother Father [facility] Ambulatory Visit Summaryon 0 03-04-2025 Ambulatory Visit Summary Ambulatory Visit Summary KAYLIE SALOMON :1950 Visit Date:03/04/2025 Ambulatory Visit Instructions Your Diagnosis Encounter for Medicare annual examination with abnormal findings (HFpEF) heart failure with preserved ejection fraction Adult BMI 40.0-44.9 kg/sq m, BMI 40.0-44.9, adult Hyperlipidemia due to type 2 diabetes mellitus Major depressive disorder, recurrent episode, moderate Morbid obesity, Morbid obesity with BMI of 45.0-49.9, adult Type 2 diabetes mellitus with stage 3b chronic kidney disease Gastroesophageal reflux disease Hypertensive disorder Stage 3b chronic kidney disease (CKD) Ovarian failure due to menopause Abnormal MMSE At risk for falls Tests Performed BD Bone Density DEXA -- Results Pending -- Please visit your patient portal for your results or contact your primary care physician. Your Care Team Attending Physician - Oh Wynne Primary Care Physician - Oh Wynne This Is Your Medications List Misc Prescription (rollator walker) Oxygen (Oxygen - for Home) acetaminophen albuterol (Ventolin HFA 90 mcg/inh Aerosol-Adpt) albuterol-ipratropium (albuterol-ipratropium Inh Juanis 3 mL UD) amiodarone (amiodarone 200 mg Tab) apixaban (apixaban 5 mg oral tablet) atorvastatin (atorvastatin 40 mg Tab) benralizumab (Fasenra Pen 30 mg/mL subcutaneous solution) brexpiprazole (Rexulti 0.5 mg oral tablet) cholecalciferol (Vitamin D3 2000 intl units oral Tab) dapagliflozin (dapagliflozin 10 mg oral tablet) fluticasone nasal (fluticasone Nasal 0.05 mg/inh [place]) fluticasone-vilanterol (Breo Ellipta 100 mcg-25 mcg inhalation powder) furosemide (furosemide 40 mg Tab) loratadine (loratadine 10 mg oral capsule) losartan (losartan 100 mg Tab) metformin (metformin 500 mg Tab) metoprolol (metoprolol tartrate 100 mg Tab) montelukast (montelukast 10 mg Tab) nystatin ondansetron pantoprazole (Pantoprazole [address] Tab) potassium chloride (Potassium Chloride (Eqv-K-Tab) 20 mEq oral tablet, extended release) sertraline (sertraline 50 mg Tab) spironolactone (spironolactone 25 mg Tab) Procedures Performed CE - Cataract extraction (11/28/2022), Cardiac catheterization, Mastectomy of right breast. Discharge Vitals Respiratory Rate 14 Blood Pressure 138/72 Height 164 cm Height 65 in Weight 122.2 kg Weight 269.405 lb BMI 45.43 What to do next Scheduled Follow-Up Appointments Saturday 1:40 PM EDT With: Oh Wynne Where: [address] [address]- Saturday2025 11:00 AM EDT With: Where: [address] [address]- Medications What How Much When Why Instructions Unchanged acetaminophen As needed for Pain/Fever Unchanged albuterol (Ventolin HFA 90 mcg/ inh Aerosol-Adpt) Unchanged albuterol-ipratropium (albuterol-ipratropium Inh Juanis 3 mL UD) INHALE THE CONTENTS OF 1 VIAL THROUGH NEBULIZER FOUR TIMES DAILY Unchanged amiodarone (amiodarone 200 mg Tab) By Mouth Every day Unchanged apixaban (apixaban 5 mg oral tablet) [...] fluticasone nasal (fluticasone Nasal 0.05 mg/ inh [place]) See instructions INSTILL 2 SPRAYS INTO EACH [...] 1 Tablets By Mouth Every day Unchanged nystatin By Mouth Unchanged ondansetron As needed for Nausea Unchanged Oxygen (Oxygen - for Home) 2 Liter/minute At bedtime Oxygen - Continuous or Nocturnal Diagnosis: Portable 02 for physician visits, oxygen conservation Unchanged pantoprazole (Pantoprazole [address] Tab (more content not included)... Normal [facility] Family Medicine Office/Clini c Noteon 03-04-2025 Family Medicine Office/Clinic Note Family Medicine Office/Clinic Note Chief Complaint Subsequent Medicare Wellness Review of Systems PHQ Score Initial Depression Screen Score: 1 SCORE Physical Exam Vitals & Measurements RR: 14 BP: 138/72 HT: 65 in HT: 164 cm WT: 269.405 lb WT: 122.2 kg BMI: 45.43 Assessment/Plan 1. Encounter for Medicare annual examination with abnormal findings (Z00.01: Encounter for general adult medical examination with abnormal findings) Patient in office today for her Subsequent Medicare Wellness Visit with caregivers from [employer] accompanying her. A customized and personalized print out of all the current AHRQ USPSTF???s recommendations for preventative services and all current CDC recommended immunizations, relevant risk recommendations and the following patient brochures were given. Reviewed What can I expect during my Medicare preventative care visit CDC-Falls Prevention and home safety screening reviewed. Patient denies any falls in last 12 months, voices no worry about falling, exhibits no problems with sitting and standing. Pt voices understanding with keeping walk way area free of clutter to prevent tripping and/or falling. [place] Advance Directives reviewed, are present at home. Caregiver will have [facility] fax to office. Patient gets assistance with ADL???s and Instrumental ADL???s from caregivers. Abnormal findings with Cognitive screening completed with memory and clock face drawing. Immunization Record reviewed with the patient. Discussed Shingrix vaccine and availability, she has gotten 1 vaccine in series of 2. Pneumonococcal vaccines received. Influenza vaccine was previously given. COVID vaccines have been administered. Immunization record is up to date. Allergies and medications reviewed and up to date. Patient denies concerns with taking medication as prescribed, reviewed OTC medications with patient with medication list up to date. Blood tests were reviewed: Blood work will be further evaluated at next pcp appointment. Colonoscopy screenings no longer done due to age. Last Mammogram was 06/10/2024. Reviewed concerns with bladder control over past 6 months with no concerns. Reviewed pain symptoms with patient: Patient denies pain. Reviewed all outside providers that patient follows. Last visit summary notes available in chart and/or have been requested. Follow up scheduled: 04/06/2025 AWV has been scheduled: 04/06/2026 Medicare provides yearly screening for alcohol and depression concerns. This is completed during our Medicare wellness visit for those who do not have a current diagnosis of depression or concerns with alcohol use. I spent a total of (12) minutes on this date of service which included preparing to see the patient, face to face patient care, completing clinical documentation, obtaining and/or reviewing separately obtained history, counseling and educating the patient with handouts. Explanations were provided with reviewing questionnaires. AUDIT risk assessment screening completed, risk score(0) with patient denying concerns with use. Completed PHQ-2 risk assessment for depression with risk score(1), negative findings. Patient has been reminded to notify the provider if there would be a change or concerns with symptoms with fear, unable to sleep, worrying too much or feeling down and/or sad with lost of interest with daily activities. Will continue to monitor with screening yearly during Medicare wellness visits. Patient qualifies for Chronic Care Management. Patient declines referral for Chronic Care Management at this time as [facility] is in home daily. 2. (HFpEF) heart failure with preserved ejection fraction (I50.30: Unspecified diastolic (congestive) heart failure) Patient follows [facility], Rosa Lyon NP as directed. Most recent office visit notes present in chart. 3. Adult BMI 40.0-44.9 kg/sq m, (Z68.41: Body mass index [BMI] 40.0-44.9, adult)BMI 40.0-44.9, adult The standard range for ages 18 and older is >=18.5 and < 25 kg/m2. Your BMI (45.43) today was above this range, this falls in the morbid obese category and there are medical benefits to weight loss. BMI monitoring is helpful with identifying a weight problem that may be related to a medical condition, or may increase the risk for medical problems. Your BMI and weight management will be followed at subsequent visits with your provider and monitored for progress. GOAL: promoting healthier lifestyle with diet changes in order to reach a healthy weight. 5. Hyperlipidemia due to type 2 diabetes mellitus (E11.69: Type 2 diabetes mellitus with other specified complication) Reviewed healthy lifestyle with low fat diet and exercise regimen. When you are overweight our body produces more lipids. Risk also increases with family history of hyperlipidemia and with monitoring alcohol use and avoid smoking. Pt voices understanding with importance of monitoring dietary intake to reduce risk factors associated with CVA. Taking statin medications daily as d (more content not included)... Normal [facility] Comment on above: Result Comment: Elec tronically Signed By: Oh Wynne.br\Date and Time Signed: 03/04/25 14:37 EDT\.br\Electronically Co-Signed By: Promise Rojas\.br\Date and Time Co-Signed: 03/04/25 13:04 EDT 36on 02-25-2025 36 Kar Bradford, I add spironolactone for this pt and ordered a BMP for one week. Can you give caregiver a call tomorrow and let her know? Thanks! Patient's caregiver made aware. She will bring her for lab drawn in 1 week. [facility] [facility] Orders Onlyon 02-25-2025 Orders Only [id number] Kaylie Salomon 1950 Date Provider Department Center 02/25/2025 RENEE CARUSO Family History Problem Relation Age of Onset Heart failure Mother Family Status - Relation Status Age at Mother Father [facility] Office Visiton 02-24-2025 Follow-up visit [id number] Kaylie Salomon 1950 Date Provider Department Center 02/24/2025 [id number] VEGA Family History Problem Relation Age of Onset Heart failure Mother Family Status - Relation Status Age at Mother Father Level of Service:25115 CT OFFICE/OUTPATIENT ESTABLISHED MOD MDM 30 MIN Normal [facility] Orders Onlyon 02-18-2025 Orders Only [id number] Kaylie Salomon 1950 Date Provider Department Center 02/18/2025 [id number], HISTORICAL ROSEY [facility] Family History Problem Relation Age of Onset Heart failure Mother Family Status - Relation Status Age at Mother [facility] Ambulatory Visit Summaryon 0 10-06-2024 Ambulatory Visit [...] Oh Wynne This Is Your Medications List [facility] [place] (rollator walker) albuterol-ipratropium (albuterol-ipratropium Inh Juanis 3 mL UD) apixaban (apixaban 5 mg oral tablet) atorvastatin (atorvastatin 40 mg Tab) benralizumab (Fasenra Pen 30 mg/mL subcutaneous solution) brexpiprazole (Rexulti 0.5 mg oral tablet) cholecalciferol (Vitamin D3 2000 intl units oral Tab) dapagliflozin (dapagliflozin 10 mg oral tablet) fluticasone nasal (fluticasone Nasal 0.05 mg/inh [place]) fluticasone-vilanterol (Breo Ellipta 100 mcg-25 mcg inhalation [...] Appointments 2024 11:00 AM EDT With: Where: [address] [id number]- Saturday 1:40 PM EDT With: Oh Wynne Where: [address] [address]- Medications What How Much When Why Instructions [...] fluticasone nasal (fluticasone Nasal 0.05 mg/ inh [place]) See instructions INSTILL 2 SPRAYS INTO EACH [...] rhinitis BMI 40.0-44.9, adult Coronary arteriosclerosis in [place] artery Drooling Gastroesophageal reflux disease History of breast cancer Hyperlipidemia due to type 2 diabetes mellitus Hypertensive disorder Hypoxemia Iron deficiency anemia secondary to inadequate dietary iron intake Limited mobility intermediate frame tender (current) use of inhaled steroids Lumbosacral spondylosis Major depressive disorder, recurrent episode, moderate (more content not included)... Normal [facility] Family Medicine Office/Clini c Noteon 10-06-2024 Family Medicine Office/Clinic Note Family Medicine Office/Clinic Note HPI Staff Kaylie is a 74 year old female presenting with 6 month f/u Do you have any of the following symptoms? Foot Exam: Eye Exam: Last A1C: Statin: Caregiver states pt had labs last done at [facility]. Caregiver states 2 weeks ago started having [...] moderate) stable at this time. continue seeing [facility] 3. (HFpEF) heart failure with preserved ejection fraction (I50.30: Unspecified diastolic (congestive) heart failure) pt is followed by [facility] 4. Chronic kidney disease, stage 3b (N18.32: Chronic kidney disease, stage 3b) BMP reviewed 5. BMI 40.0-44.9, adult (Z68.41: Body mass index [BMI] 40.0-44.9, adult) BMI education 6. Non-smoker (Z78.9: Other specified health status) continue not smoking Orders: furosemide, 40 mg = 2 tab(s), Oral, Daily, # 180 tab(s), Refills(s) 4, Pharmacy: [id number], 164, cm, 01/09/24 11:44:00 EDT, Height/Length Dosing, 119.9, kg, 01/09/24 11:44:00 EDT, Weight Dosing Follow-up No qualifying data available Problem List/Past Medical History Ongoing (HFpEF) heart failure with preserved ejection fraction Adult BMI 40.0-44.9 kg/sq m Allergic rhinitis BMI 40.0-44.9, adult Coronary arteriosclerosis in [place] artery Drooling Gastroesophageal reflux disease History of breast cancer Hyperlipidemia due to type 2 diabetes mellitus Hypertensive disorder Hypoxemia Iron deficiency anemia secondary to inadequate dietary iron intake Limited mobility MCFP (current) use of inhaled steroids Lumbosacral spondylosis [...] mg/mL subcutaneous solution fluticasone Nasal 0.05 mg/inh [place], See Instructions furosemide 40 mg Tab, See [...] D3 200 (more content not included)... Normal [facility] Comment on above: Result Comment: Elec tronically Signed By: Oh Wynne\.br\Date and Time Signed: 10/06/24 12:00 EST Follow-Upon 09-09-2024 Follow-Up [id number] Kaylie Salomon 1950 F Date Provider Department Center 09/09/2024 ROSA LÓPEZ CARD [facility] Family History Problem Relation Age of Onset Heart failure Mother Family Status - Relation Status Age at Mother Level of Service:04871 CT OFFICE/OUTPATIENT ESTABLISHED LOW MDM 20 MIN Normal [facility] Ambulatory Visit Summaryon 1 10-04-2023 Ambulatory Visit [...] This Is Your Medications List Misc Prescription (rollator walker) albuterol-ipratropium (albuterol-ipratropium Inh Juanis 3 mL UD) apixaban (apixaban 5 mg oral tablet) atorvastatin (atorvastatin 40 mg Tab) benralizumab (Fasenra Pen 30 mg/mL subcutaneous solution) brexpiprazole (Rexulti 0.5 mg oral tablet) cholecalciferol (Vitamin D3 2000 intl units oral Tab) dapagliflozin (dapagliflozin 10 mg oral tablet) fluticasone nasal (fluticasone Nasal 0.05 mg/inh [place]) fluticasone-vilanterol (Breo Ellipta 100 mcg-25 mcg inhalation [...] 1:40 PM EST With: Oh Wynne Where: [address] [address]- 2024 11:00 AM EDT With: Where: [address] [address]- Medications What How Much When Why Instructions New Misc Prescription (rollator walker) See instructions Limited [...] fluticasone nasal (fluticasone Nasal 0.05 mg/ inh [place]) See instructions INSTILL 2 SPRAYS INTO EACH [...] respiratory failure with hypoxia Coronary arteriosclerosis in [place] artery Drooling Gastroesophageal reflux disease Heart failure, systolic and diastolic History of breast cancer History of recent fall Hyperlipidemia due to type 2 diabetes mellitus Hypertensive disorder Hypertensive heart and 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 Hypoxemia Iron deficiency anemia secondary to inadequate dietary iron intake Limited mobil (more content not included)... Normal [facility] Medicine Office/Clini c Noteon 08-04-2024 Family Medicine [...] kidney disease) follow up with cardiology in August 5. Adult BMI 40.0-44.9 kg/sq m, (Z68.41: [...] with hypoxia) stable at this time Ordered: [facility] [place], rollator walker, See Instructions, 1 EA, [...] zev, Topical, BID, 30 gm, Refill(s) 1, [id number], 164, cm, 03/08/23 12:17:00 EDT, Height/Length Dosing, 120, kg, 03/08/23 12:17:00 EDT, Weight Dosing Follow-up No qualifying data available Problem List/Past Medical History Ongoing Adult BMI 40.0-44.9 kg/sq m Allergic rhinitis BMI 40.0-44.9, adult Chronic respiratory failure with hypoxia Coronary arteriosclerosis in [place] artery Drooling Gastroesophageal reflux disease Heart failure, systolic and diastolic History of breast cancer History of recent fall Hyperlipidemia due to type 2 diabetes mellitus Hypertensive disorder 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 Normal [facility] Comment on above: Result Comment: Elec tronically Signed By: Oh Wynne\.br\Date and Time Signed: 08/04/24 12:55 EST Pre-Visit Planningon 024 Pre-Visit Planning Pre-Visit Planning From: Elif Cabrera To: Oh Wynne; Sent: 08/03/2024 10:20:22 EST Subject: Pre-Visit Planning Due Date/Time: 08/03/2024 10:20:00 EST Caller Name: KAYLIE SALOMON; Caller Number: Zee [...] Mammography: *No On[facility]. Based on your medical judgment, can you [...] feel free to contact me at extension [phone]. Thank you! Elif Cabrera LPN Clinical Personal Coach [place] [phone] Extension: [phone] [email or web address] Normal [facility] CBC W Auto Differential pane l (Bld)on 07-30-2024 Basophils (Bld) [#/Vol] [facility] Basophils/100 WBC (Bld) 0.1 % [facility] Differential cell count method Nom (Bld) Auto [facility] Eosinophils (Bld) [#/Vol] [facility] Eosinophils/100 WBC (Bld) 0.0 % [facility] Erythrocyte distribution width (RBC) [Ratio] 17.4 % High 11.5 - 15.0 % [facility] Hematocrit (Bld) [Volume fraction] 34.2 % Low 36.0 - 46.0 % [facility] Hemoglobin (Bld) [Mass/Vol] 10.1 g/dL Low 11.5 - 15.5 g/dL [facility] Immature granulocytes (Bld) [#/Vol] 0.03 10*3/uL [facility] Immature granulocytes/100 WBC (Bld) 0.3 % [facility] Interpretation and review of laboratory results Abnormal [facility] Lymphocytes (Bld) [#/Vol] 0.82 10*3/uL Low [facility] Lymphocytes/100 WBC (Bld) 9.0 % [facility] MCH (RBC) [Entitic mass] 26.4 pg 26.0 - 34.0 pg [facility] MCHC (RBC) [Mass/Vol] 29.5 g/dL Low 30.5 - 36.0 g/dL [facility] MCV (RBC) [Entitic vol] 89.5 fL 80.0 - 100.0 fL [facility] Monocytes (Bld) [#/Vol] 1.05 10*3/uL High NINF [facility] Monocytes/100 WBC (Bld) 11.5 % [facility] Neutrophils (Bld) [#/Vol] 7.23 10*3/uL [facility] Neutrophils/100 WBC (Bld) 79.1 % [facility] Nucleated RBC (Bld) [#/Vol] NINF [facility] Nucleated RBC/100 WBC (Bld) [Ratio] 0.0 % /100 WBC [facility] Platelet mean volume (Bld) [Entitic vol] 9.6 fL 9.0 - 12.7 fL [facility] Platelets (Bld) [#/Vol] 290 10*3/uL [facility] RBC (Bld) [#/Vol] 3.82 10*6/uL Low 3.90 - 5.2 0 m/uL [facility] WBC (Bld) [#/Vol] 9.14 10*3/uL [facility] Basophils (Bld) [#/Vol] 10*3/uL Normal <0.11 [facility] Comment on above: Order Comment: Speci men Type: BLOOD SPECIMEN Ordering Facility: [facility] Address: [address] [place] [address] Performed By: #### 5 7021-8 #### [facility] CLIA [id number] [address] [place] [address] Basophils/100 WBC (Bld) 0.1 % Normal [facility] Comment on above: Order Comment: Speci men Type: BLOOD SPECIMEN Ordering Facility: [facility] Address: [address] [place] [address] Performed By: #### 5 7021-8 #### [facility] CLIA [id number] [address] [place] [address] Differential cell count method Nom (Bld) Auto Normal [facility] Comment on above: Order Comment: Speci men Type: BLOOD SPECIMEN Ordering Facility: [facility] Address: [address] [place] [address] Performed By: #### 5 7021-8 #### [facility] CLIA [id number] [address] [place] [address] Eosinophils (Bld) [#/Vol] 10*3/uL Normal <0.46 [facility] Comment on above: Order Comment: Speci men Type: BLOOD SPECIMEN Ordering Facility: [facility] Address: [address] [id number] Performed By: #### 5 7021-8 #### [facility] CLIA [id number] [address] [place] [address] Eosinophils/100 WBC (Bld) 0.0 % Normal [facility] Comment on above: Order Comment: Speci men Type: BLOOD SPECIMEN Ordering Facility: [facility] Address: [address] [place] [address] Performed By: #### 5 7021-8 #### [facility] CLIA [id number] [address] [place] [address] Erythrocyte distribution width (RBC) [Ratio] 17.4 % High 11.5-15.0 [facility] Comment on above: Order Comment: Speci men Type: BLOOD SPECIMEN Ordering Facility: [facility] Address: [address] [place] [address] Performed By: #### 5 7021-8 #### [facility] CLIA [id number] [address] [place] [address] Hematocrit (Bld) [Volume fraction] 34.2 % Low 36.0-46.0 [facility] Comment on above: Order Comment: Speci men Type: BLOOD SPECIMEN Ordering Facility: [facility] Address: [address] [place] [address] Performed By: #### 5 7021-8 #### [facility] CLIA [id number] [address] [place] [address] Hemoglobin (Bld) [Mass/Vol] 10.1 g/dL Low 11.5-15.5 [facility] Comment on above: Order Comment: Speci men Type: BLOOD SPECIMEN Ordering Facility: [facility] Address: [address] [place] [address] Performed By: #### 5 7021-8 #### [facility] CLIA [id number] [address] [place] [address] Immature granulocytes (Bld) [#/Vol] 0.03 10*3/uL Normal <0.10 [facility] Comment on above: Order Comment: Speci men Type: BLOOD SPECIMEN Ordering Facility: [facility] Address: [address] [place] [address] Performed By: #### 5 7021-8 #### [facility] CLIA [id number] [address] [place] [address] Immature granulocytes/100 WBC (Bld) 0.3 % Normal [facility] Comment on above: Order Comment: Speci men Type: BLOOD SPECIMEN Ordering Facility: [facility] Address: [address] [place] [address] Performed By: #### 5 7021-8 #### [facility] CLIA [id number] [address] [place] [address] Lymphocytes (Bld) [#/Vol] 0.82 10*3/uL Low 1.00-4.00 [facility] Comment on above: Order Comment: Speci men Type: BLOOD SPECIMEN Ordering Facility: [facility] Address: [address] [place] [address] Performed By: #### 5 7021-8 #### [facility] CLIA [id number] [address] [place] [address] Lymphocytes/100 WBC (Bld) 9.0 % Normal [facility] Comment on above: Order Comment: Speci men Type: BLOOD SPECIMEN Ordering Facility: [facility] Address: [address] [place] [address] Performed By: #### 5 7021-8 #### [facility] CLIA [id number] [address] [place] [address] MCH (RBC) [Entitic mass] 26.4 pg Normal 26.0-34.0 [facility] Comment on above: Order Comment: Speci men Type: BLOOD SPECIMEN Ordering Facility: [facility] Address: [address] [place] [address] Performed By: #### 5 7021-8 #### [facility] CLIA [id number] [address] [place] [address] MCHC (RBC) [Mass/Vol] 29.5 g/dL Low 30.5-36.0 [facility] Comment on above: Order Comment: Speci men Type: BLOOD SPECIMEN Ordering Facility: [facility] Address: [address] [place] [address] Performed By: #### 5 7021-8 #### [facility] CLIA [id number] [address] [place] [address] MCV (RBC) [Entitic vol] 89.5 fL Normal 80.0-100.0 [facility] Comment on above: Order Comment: Speci men Type: BLOOD SPECIMEN Ordering Facility: [facility] Address: [address] [place] [address] Performed By: #### 5 7021-8 #### [facility] CLIA [id number] [address] [place] [address] Monocytes (Bld) [#/Vol] 1.05 10*3/uL High <0.87 [facility] Comment on above: Order Comment: Speci men Type: BLOOD SPECIMEN Ordering Facility: [facility] Address: [address] [place] [address] Performed By: #### 5 7021-8 #### [facility] CLIA [id number] [address] [place] [address] Monocytes/100 WBC (Bld) 11.5 % Normal [facility] Comment on above: Order Comment: Speci men Type: BLOOD SPECIMEN Ordering Facility: [facility] Address: [address] [place] [address] Performed By: #### 5 7021-8 #### [facility] CLIA [id number] [address] [place] [address] Neutrophils (Bld) [#/Vol] 7.23 10*3/uL Normal 1.45-7.50 [facility] Comment on above: Order Comment: Speci men Type: BLOOD SPECIMEN Ordering Facility: [facility] Address: [address] [place] [address] Performed By: #### 5 7021-8 #### [facility] CLIA [id number] [address] [place] [address] Neutrophils/100 WBC (Bld) 79.1 % Normal [facility] Comment on above: Order Comment: Speci men Type: BLOOD SPECIMEN Ordering Facility: [facility] Address: [address] [place] [address] Performed By: #### 5 7021-8 #### [facility] CLIA [id number] [address] [place] [address] Nucleated RBC (Bld) [#/Vol] 10*3/uL Normal <0.01 [facility] Comment on above: Order Comment: Speci men Type: BLOOD SPECIMEN Ordering Facility: [facility] Address: [address] [place] [address] Performed By: #### 5 7021-8 #### [facility] CLIA [id number] [address] [place] [address] Nucleated RBC/100 WBC (Bld) [Ratio] 0.0 /100 WBC Normal [facility] Comment on above: Order Comment: Speci men Type: BLOOD SPECIMEN Ordering Facility: [facility] Address: [address] [place] [address] Performed By: #### 5 7021-8 #### [facility] CLIA [id number] [address] [place] [address] Platelet mean volume (Bld) [Entitic vol] 9.6 fL Normal 9.0-12.7 [facility] Comment on above: Order Comment: Speci men Type: BLOOD SPECIMEN Ordering Facility: [facility] Address: [address] [place] [address] Performed By: #### 5 7021-8 #### [facility] CLIA [id number] [address] [place] [address] Platelets (Bld) [#/Vol] 290 10*3/uL Normal 150-400 [facility] Comment on above: Order Comment: Speci men Type: BLOOD SPECIMEN Ordering Facility: [facility] Address: [address] [place] [address] Performed By: #### 5 7021-8 #### [facility] CLIA [id number] [address] [place] [address] RBC (Bld) [#/Vol] 3.82 10*6/uL Low 3.90-5.20 [facility] Comment on above: Order Comment: Speci men Type: BLOOD SPECIMEN Ordering Facility: [facility] Address: [address] [place] [address] Performed By: #### 5 7021-8 #### [facility] CLIA [id number] [address] [place] [address] WBC (Bld) [#/Vol] 9.14 10*3/uL Normal 3.70-11.00 [facility] Comment on above: Order Comment: Speci men Type: BLOOD SPECIMEN Ordering Facility: [facility] Address: [address] [place] [address] Performed By: #### 5 7021-8 #### [facility] CLIA [id number] [address] [place] [address] CNOVSPon 07-30-2024 CNOVSP Visit (SP) Office ([place]) KAYLIE SALOMON ([id number]) 1950 F Date Time Provider Department 07/30/24 [...] Smith, Afua RAMIREZT, Dr. Brian Gil (Cardiology [facility]) Portions of this encounter note have been [...] and CHF. She is currently managed by [facility] cardiology (Dr. Gil). Otherwise she has had [...] on 03/14/2023) ALLERGIES: Clarithromycin, Conjugated Estrogens, Neosporin [Tzhfswtg-Pbmezetysw-F olymyxin], Paclitaxel, Peanut, Penicillins, and Sulfa (Sulfonamide [...] nose ble (more content not included)... Normal [facility] Cancer Ag27-29 SerPl-aCncon 07-30-2024 Cancer Ag 27-29 Qn 31.0 [arb'U]/mL Normal <38.6 C [facility] Comment on above: Order Comment: Speci men Type: BLOOD SPECIMEN Ordering Facility: [facility] Address: [address] [place] [address] Result Comment: The CA27.29 test was performed using the Siemens Centaur XP chemiluminometric immunoassay method. Results obtained with different assay methods or kits cannot be used interchangeably. Performed By: #### 1 7842-6 #### [facility] CLIA [id number] [address] [place], [place] [address] [address] [place] Comprehensive metabolic 2000 panelOrdered By: Rosa Elena Yi on 07-30-2024 Albumin [Mass/Vol] 4.0 g/dL 3.9 - 4.9 g/dL [facility] ALP [Catalytic activity/Vol] 95 U/L 34 - 123 U/L [facility] ALT [Catalytic activity/Vol] 19 U/L 7 - 38 U/L [facility] Anion gap [Moles/Vol] 10 mmol/L 8 - 15 mmol/L [facility] AST [Catalytic activity/Vol] 21 U/L 13 - 35 U/L [facility] Bilirubin [Mass/Vol] 0.4 mg/dL 0.2 - 1 .3 mg/dL [facility] Calcium [Mass/Vol] 9.3 mg/dL 8.5 - 10. 2 mg/dL [facility] Chloride [Moles/Vol] 100 mmol/L 98 - 10 7 mmol/L [facility] CO2 [Moles/Vol] 31 mmol/L High 22 - 30 mmol/L [facility] Creatinine [Mass/Vol] 1.41 mg/dL High 0.58 - 0.96 mg/dL [facility] GFR/1.73 sq M.predicted among non-blacks MDRD (S/P/Bld) [Vol rate/Area] 39 mL/min/{1.73_m2} Low - PINF [facility] Comment on above: Estimated Glomerular Filtration [...] [Mass/Vol] 83 mg/dL 74 - 99 mg/dL [facility] Comment on above: The [place] Diabete s Association (ADA) provides guidance for [...] Standards of Medical Care in Diabetes 2016, [place] [employer]. Diabetes Care. 2016.39(Suppl 1). Interpretation and review of laboratory results Abnormal [facility] Potassium [Moles/Vol] 4.3 mmol/L 3.7 - 5.1 mmol/L [facility] Protein [Mass/Vol] 7.7 g/dL 6.3 - 8.0 g/dL [facility] Sodium [Moles/Vol] 141 mmol/L 136 - 144 mmol/L [facility] Urea nitrogen [Mass/Vol] 54 mg/dL High 7 - 21 mg/dL [facility] Comprehensive metabolic 2000 panelon 07-30-2024 Albumin [Mass/Vol] 4.0 g/dL Normal 3.9-4.9 [facility] Comment on above: Order Comment: Speci men Type: BLOOD SPECIMEN Ordering Facility: [facility] Address: [address] [place] [address] Performed By: #### 2 4323-8 #### [facility] CLIA [id number] [address] [place] [address] ALP [Catalytic activity/Vol] 95 U/L Normal 34-123 [facility] Comment on above: Order Comment: Speci men Type: BLOOD SPECIMEN Ordering Facility: [facility] Address: [address] [place] [address] Performed By: #### 2 4323-8 #### [facility] CLIA [id number] [address] [place] [address] ALT [Catalytic activity/Vol] 19 U/L Normal 7-38 [facility] Comment on above: Order Comment: Speci men Type: BLOOD SPECIMEN Ordering Facility: [facility] Address: [address] [place], [place] [address] Performed By: #### 2 4323-8 #### [facility] CLIA [id number] [address] [place] [address] Anion gap [Moles/Vol] 10 mmol/L Normal 8-15 [facility] Comment on above: Order Comment: Speci men Type: BLOOD SPECIMEN Ordering Facility: [facility] Address: [facility] [place] [id number] Performed By: #### 2 4323-8 #### [facility] CLIA [id number] [address] [place] [address] AST [Catalytic activity/Vol] 21 U/L Normal 13-35 [facility] Comment on above: Order Comment: Speci men Type: BLOOD SPECIMEN Ordering Facility: [facility] Address: [address] [place] [address] Performed By: #### 2 4323-8 #### [facility] CLIA [id number] [address] [place] [address] Bilirubin [Mass/Vol] 0.4 mg/dL Normal 0.2-1.3 [facility] Comment on above: Order Comment: Speci men Type: BLOOD SPECIMEN Ordering Facility: [facility] Address: [address] [id number] Performed By: #### 2 4323-8 #### [facility] CLIA [id number] [address] [place] [address] Calcium [Mass/Vol] 9.3 mg/dL Normal 8.5-10.2 [facility] Comment on above: Order Comment: Speci men Type: BLOOD SPECIMEN Ordering Facility: [facility] Address: [address] [id number] Performed By: #### 2 4323-8 #### [facility] CLIA [id number] [address] [place] [address] Chloride [Moles/Vol] 100 mmol/L Normal 98-107 [facility] Comment on above: Order Comment: Speci men Type: BLOOD SPECIMEN Ordering Facility: [facility] Address: [address] [id number] Performed By: #### 2 4323-8 #### [facility] CLIA [id number] [address] [place] [address] 17223 CO2 [Moles/Vol] 31 mmol/L High 22-30 [facility] Comment on above: Order Comment: Speci men Type: BLOOD SPECIMEN Ordering Facility: [facility] Address: [address] [id number] Performed By: #### 2 4323-8 #### [facility] CLIA [id number] [address] [place] [address]09 Creatinine [Mass/Vol] 1.41 mg/dL High 0.58-0.96 [facility] Comment on above: Order Comment: Jennifer stahl Type: BLOOD SPECIMEN Ordering Facility: [facility] Address: [address] [place] [address] Performed By: #### 2 4323-8 #### [facility] CLIA [id number] [address] [place] [address]25 Creatinine and Glomerular filtration rate.predicted panel (S/P/Bld) 39 mL/min/1.73m??? Low >=60 [facility] Comment on above: Order Comment: Jennifer stahl Type: BLOOD SPECIMEN Ordering Facility: [facility] Address: [address] [place] [address] Result Comment: Violette mated Glomerular Filtration Rate [...] GFR. Performed By: #### 2 4323-8 #### [facility] CLIA [id number] [address] [place] [address]70 Glucose [Mass/Vol] 83 mg/dL Normal 74-99 [facility] Comment on above: Order Comment: Jennifer stahl Type: BLOOD SPECIMEN Ordering Facility: [facility] Address: [address] [place] [address] Result Comment: The [place] Diabetes Association (ADA) provides guidance for cutoff [...] Standards of Medical Care in Diabetes 2016, [place] [employer]. Diabetes Care. 2016.39(Suppl 1). Performed By: #### 2 4323-8 #### [facility] CLIA [id number] [address] [place] [address] Potassium [Moles/Vol] 4.3 mmol/L Normal 3.7-5.1 [facility] Comment on above: Order Comment: Speci men Type: BLOOD SPECIMEN Ordering Facility: [facility] Address: [address] [place] [address] Performed By: #### 2 4323-8 #### [facility] CLIA [id number] [address] [place] [address]82 Protein [Mass/Vol] 7.7 g/dL Normal 6.3-8.0 [facility] Comment on above: Order Comment: Speci men Type: BLOOD SPECIMEN Ordering Facility: [facility] Address: [address] [place] [address] Performed By: #### 2 4323-8 #### [facility] CLIA [id number] [address] [place] [address] 13952 Sodium [Moles/Vol] 141 mmol/L Normal 136-144 [facility] Comment on above: Order Comment: Speci men Type: BLOOD SPECIMEN Ordering Facility: [facility] Address: [address] [place], [place] [address] Performed By: #### 2 4323-8 #### [facility] CLIA [id number] [address] [place] [address] 66243 Urea nitrogen [Mass/Vol] 54 mg/dL High 7-21 [facility] Comment on above: Order Comment: Speci men Type: BLOOD SPECIMEN Ordering Facility: [facility] Address: [address] [phone] Performed By: #### 2 4323-8 #### [facility] CLIA [id number] [address] [place] [address] 37on 06-25-2024 37 *Continue lasix 80mg in the AM and 40mg in the PM *Continue 2L or 64 oz of daily fluid allowance *Continue to monitor daily weights *Have labs done to follow-up on kidney function Normal [facility] Office Visiton 06-25-2024 Follow-up visit [id number] Nunu Salomondominic Caballero 1950 Provider Department Center 06/25/2024 ROSA LÓPEZ Family History Problem Relation Age of Onset Heart failure Mother Family Status - Relation Status Age at Mother Level of Service:84973 CT OFFICE/OUTPATIENT ESTABLISHED MOD MDM 30 MIN Normal [facility] 37on 06-17-2024 37 *Increase lasix to 80mg (2 tablets of 40mg) BID x3 days then take lasix 80mg in the AM and 40mg in the PM. Can take second dose around 4pm. *Limit fluid intake to 2L a day. *Limit sodium intake to 2L a day Normal [facility] Office Visiton 06-17-2024 Follow-up visit [id number] LupilloKaylie ortez 1950 Provider Department Center 06/17/2024 ROSA LÓPEZ Family History Problem Relation Age of Onset Heart failure Mother Family Status - Relation Status Age at Mother Level of Service:48377 CT OFFICE/OUTPATIENT ESTABLISHED MOD MDM 30 MIN Normal [facility] Orders Onlyon 06-02-2024 Orders Only [id number] Nunu Salomondominic Caballero 1950 Provider Department Center 06/02/2024 ELIF ACOSTA . Family History Problem Relation Age of Onset Heart failure Mother Family Status - Relation Status Age at Mother Normal [facility] BASIC METABOLIC PANLon 05-20 Anion gap [Moles/Vol] 10 mmol/L Normal 5-[address] [facility] Comment on above: Performed By: #### 3 0934-4 #### [facility] ([id number]) [address] [place] [address], [place] [address] #### BMP #### [facility] ([id number]) [address] [place] [address], [address] [place] [address] Calcium [Mass/Vol] 9.5 mg/dL Normal 8.5-10.5 [facility] Comment on above: Performed By: #### 3 0934-4 #### [facility] ([id number]) [address] [place] [address] 11354 #### BMP #### [facility] ([id number]) [address], [address] [place] [address] Chloride [Moles/Vol] 96 mmol/L Low 98-109 [facility] Comment on above: Performed By: #### 3 0934-4 #### [facility] ([id number]) [address] [place] [address]206 #### BMP #### [facility] ([id number]) [address] [facility], [address] [place] [address] CO2 [Moles/Vol] 36 mmol/L High 22-[address] [facility] Comment on above: Performed By: #### 3 0934-4 #### [facility] ([id number]) [address] [place] [address] 22396 #### BMP #### [facility] ([id number]) [address], [address] [place] [address] Creatinine [Mass/Vol] 1.35 mg/dL High 0.40-1.[address] [facility] Comment on above: Result Comment: METH OD TRACEABLE TO IDMS STANDARD Performed By: #### 3 0934-4 #### [facility] ([id number]) [address] [place] [address] 9[address]16 #### BMP #### [facility] ([id number]) [address], [address] [place] [address] GFR/1.73 sq M.predicted among non-blacks MDRD (S/P/Bld) [Vol rate/Area] 41 mL/min/{1.73_m2} Low >[address] [facility] Comment on above: Result Comment: Reported eGFR is based on the CKD-EPI 2020 equation that does not use a race coefficient. Performed By: #### 3 0934-4 #### [facility] ([id number]) [address] [place] [address]842 #### BMP #### [facility] ([id number]) [address] [place] [address] Glucose [Mass/Vol] 98 mg/dL Normal 65-99 [facility] Comment on above: Performed By: #### 3 0934-4 #### [facility] ([id number]) [address] [place] [address] 12024 #### BMP #### [facility] ([id number]) [address], [address] [place] [address] Potassium [Moles/Vol] 4.1 mmol/L Normal 3.5-5.[address] [facility] Comment on above: Performed By: #### 3 0934-4 #### [facility] ([id number]) [address] [place] [address]26 #### BMP #### [facility] ([id number]) [address], [address] [place] [address] Sodium [Moles/Vol] 142 mmol/L Normal 134-146 [facility] Comment on above: Performed By: #### 3 0934-4 #### [facility] ([id number]) [address] [place] [address] 26458 #### BMP #### [facility] ([id number]) [address] [place] [address] Urea nitrogen [Mass/Vol] 30 mg/dL High 5-[address] [facility] Comment on above: Performed By: #### 3 0934-4 #### [facility] ([id number]) [address] [place] [address]70 #### BMP #### [facility] ([id number]) [address] [place] [address], [address] [address] Natriuretic peptide B [Mass/ Vol]on 05-20-2024 Natriuretic peptide B (Bld) [Mass/Vol] 359 pg/mL High <100.[address] [facility] Comment on above: Performed By: #### 3 0934-4 #### [facility] ([id number]) [address] [place] [address] #### BMP #### [facility] ([id number]) [address] [place] [address], [address] [address] Office Visiton 05-13-2024 Follow-up visit [id number] Kaylie Salomon 1950 F Date Provider Department Center 05/13/2024 ROSA LÓPEZ Hos Family History Problem Relation Age of Onset Heart failure Mother Family Status - Relation Status Age at Mother Level of Service:73316 CT OFFICE/OUTPATIENT ESTABLISHED MOD MDM 30 MIN Reason for Visit and Comments: Atrial Fibrillation [80] Congestive Heart Failure [127] Normal [facility] MICROALBUMIN - ALBUMIN:CREAT ININE URINE RATIOon 05-06-2024 ALB/CREAT RATIO 42.4 mg/g creat High 0.0-30.0 [facility] Comment on above: Performed By: #### M ALBU #### [facility] ([id number]) [address] [place] [address] Albumin DL <= 20 mg/L (U) [Mass/Vol] 0.8 mg/dL Normal 0.0-1.[address] [facility] Comment on above: Performed By: #### M ALBU #### [facility] ([id number]) [address] [place] [address], [address] [place] [address] URINE CREAT 18.87 mg/dL Normal [facility] Comment on above: Performed By: #### M ALBU #### [facility] ([id number]) [address] [facility], [address] [place] [address] PROTEIN CREAT RATIOon 2023 RANDOM URINE PROTEIN 60 mg/L Normal <120 [facility] Comment on above: Performed By: #### U PCR #### [facility] ([id number]) [address] [facility] [facility] [address] [place] [address] U/PRO/MOBILE DEVELOPER RATIO CALC 0.32 High <0.2 [facility] Comment on above: Result Comment: Neph rotic Syndrome is associated with ratios >3.5 Performed By: #### U PCR #### [facility] ([id number]) [address] [facility], [address] [address] URINE CREATININE,RDM 18.77 mg/dL Normal [facility] Comment on above: Performed By: #### U PCR #### [facility] ([id number]) [address] [address] 36on 05-05-2024 36 Patient's caregiver called back and I relayed message per Miran to restart PM dose of lasix and have labs today. She will also have repeat labs on Saturday and will see Shayy on Saturday, 05/13. Lab orders faxed to [facility] in [place]. Normal [facility] HGB A1C (GLYCO-HGB)on 2023 Glucose [Mass/Vol] 134 mg/dL Normal [facility] Comment on above: Performed By: #### H A1C, 29672-6 #### [facility] ([id number]) [address] [facility], [address] [place] [address] HbA1c (Bld) [Mass fraction] 6.3 % High 4.4-5.[address] [facility] Comment on above: Result Comment: NOTE ADA Guidelines Result HgbA1c Normal : less than 5.7 % Prediabetes : 5.7 % to 6.4 % Diabetes : > 6.4 % Use with caution in patients with abnormal hemoglobin variants as the half-life of red blood cells and in vivo glycation rates are affected. Performed By: #### Zee A1C, 83450-8 #### [facility] ([id number]) [address], [address] [place] [address] Lipid 1996 panelon 4 Cholesterol [Mass/Vol] 95 mg/dL Low 150-[address] [facility] Comment on above: Performed By: #### Zee A1C, 04856-7 #### [facility] ([id number]) [address], [address] [place] [address] Cholesterol in HDL [Mass/Vol] 50 mg/dL Normal >[address] [facility] Comment on above: Result Comment: HDL <40 mg/dL - High Risk HDL > or = 40mg/dL- Desirable HDL >60 mg/dL - Negative Risk Performed By: #### H A1C, 95499-9 #### [facility] ([id number]) [address], [address] [place] [address] Cholesterol in LDL [Mass/Vol] 30 mg/dL Normal <[address] [facility] Comment on above: Result Comment: LDL <100 mg/dL - Desirable LDL >160 mg/dL - High Risk Performed By: #### H A1C, 05476-5 #### [facility] ([id number]) [address], [address] [place] [address] Cholesterol in VLDL [Mass/Vol] 15 mg/dL Normal 0-[address] [facility] Comment on above: Performed By: #### H A1C, 50893-4 #### [facility] ([id number]) [address], [address] [place] [address] CHOLESTEROL:HDL 1.9 Normal 1.0-5.[address] [facility] Comment on above: Performed By: #### H A1C, 73780-1 #### [facility] ([id number]) [address], [address] [place] [address] Triglyceride [Mass/Vol] 73 mg/dL Normal 27-[address] [facility] Comment on above: Performed By: #### H A1C, 84378-4 #### [facility] ([id number]) [address], [address] [place] [address] Orders Onlyon 05-05-2024 Orders Only [id number] HepérezKaylie A 1950 F Date Provider Department Center 05/05/2024 Bouchra-RADHA JARA AFUA Hardin Family History Problem Relation Age of Onset Heart failure Mother Family Status - Relation Status Age at Mother Normal [facility] Orders Onlyon 05-04-2024 Orders Only [id number] AimeKaylie A 1950 Date Provider Department Center 05/04/[address] Family History Problem Relation Age of Onset Heart failure Mother Family Status - Relation Status Age at Mother Normal [facility] CBC W Auto Differential pane l (Bld)on 09-12-2023 Basophils (Bld) [#/Vol] 10*3/uL Normal <0.11 [facility] Comment on above: Order Comment: Speci men Type: BLOOD SPECIMEN Ordering Facility: [facility] Address: [address] [place] [address] Performed By: #### 5 7021-8 #### [facility] CLIA [id number] [address] [place] [address] Basophils/100 WBC (Bld) 0.2 % Normal [facility] Comment on above: Order Comment: Speci men Type: BLOOD SPECIMEN Ordering Facility: [facility] Address: [address] [place] [address] Performed By: #### 5 7021-8 #### [facility] CLIA [id number] [address] [place] [address] Differential cell count method Nom (Bld) Auto Normal [facility] Comment on above: Order Comment: Speci men Type: BLOOD SPECIMEN Ordering Facility: [facility] Address: [address] [place] [address] Performed By: #### 5 7021-8 #### [facility] CLIA [id number] [address] [place] [address] Eosinophils (Bld) [#/Vol] 10*3/uL Normal <0.46 [facility] Comment on above: Order Comment: Speci men Type: BLOOD SPECIMEN Ordering Facility: [facility] Address: [address] [place] [address] Performed By: #### 5 7021-8 #### [facility] CLIA [id number] [address] [place] [address] Eosinophils/100 WBC (Bld) 0.0 % Normal [facility] Comment on above: Order Comment: Speci men Type: BLOOD SPECIMEN Ordering Facility: [facility] Address: [address] [place] [address] Performed By: #### 5 7021-8 #### [facility] CLIA [id number] [address] [place] [address] Erythrocyte distribution width (RBC) [Ratio] 14.5 % Normal 11.5-15.0 [facility] Comment on above: Order Comment: Speci men Type: BLOOD SPECIMEN Ordering Facility: [facility] Address: [address] [place] [address] Performed By: #### 5 7021-8 #### [facility] CLIA [id number] [address] [place] [address] Hematocrit (Bld) [Volume fraction] 38.7 % Normal 36.0-46.0 [facility] Comment on above: Order Comment: Speci men Type: BLOOD SPECIMEN Ordering Facility: [facility] Address: [address] [place] [address] Performed By: #### 5 7021-8 #### [facility] CLIA [id number] [address] [place] [address] Hemoglobin (Bld) [Mass/Vol] 11.7 g/dL Normal 11.5-15.5 [facility] Comment on above: Order Comment: Speci men Type: BLOOD SPECIMEN Ordering Facility: [facility] Address: [address] [place] [address] Performed By: #### 5 7021-8 #### [facility] CLIA [id number] [address] [place] [address] Immature granulocytes (Bld) [#/Vol] 0.03 10*3/uL Normal <0.10 [facility] Comment on above: Order Comment: Speci men Type: BLOOD SPECIMEN Ordering Facility: [facility] Address: [address] [place] [address] Performed By: #### 5 7021-8 #### [facility] CLIA [id number] [address] [place] [address] Immature granulocytes/100 WBC (Bld) 0.3 % Normal [facility] Comment on above: Order Comment: Speci men Type: BLOOD SPECIMEN Ordering Facility: [facility] Address: [address] [place] [address] Performed By: #### 5 7021-8 #### [facility] CLIA [id number] [address] [place] [address] Lymphocytes (Bld) [#/Vol] 1.10 10*3/uL Normal 1.00-4.00 [facility] Comment on above: Order Comment: Speci men Type: BLOOD SPECIMEN Ordering Facility: [facility] Address: [address] [place] [address] Performed By: #### 5 7021-8 #### [facility] CLIA [id number] [address] [place] [address] Lymphocytes/100 WBC (Bld) 11.2 % Normal [facility] Comment on above: Order Comment: Speci men Type: BLOOD SPECIMEN Ordering Facility: [facility] Address: [address] [place] [address] Performed By: #### 5 7021-8 #### [facility] CLIA [id number] [address] [place] [address]156 MCH (RBC) [Entitic mass] 27.5 pg Normal 26.0-34.0 [facility] Comment on above: Order Comment: Speci men Type: BLOOD SPECIMEN Ordering Facility: [facility] Address: [address] [place] [address] Performed By: #### 5 7021-8 #### [facility] CLIA [id number] [address] [place] [address] 18393 MCHC (RBC) [Mass/Vol] 30.2 g/dL Low 30.5-36.0 [facility] Comment on above: Order Comment: Speci men Type: BLOOD SPECIMEN Ordering Facility: [facility] Address: [address] [place] [address] Performed By: #### 5 7021-8 #### [facility] CLIA [id number] [address] [place] [address]303 MCV (RBC) [Entitic vol] 91.1 fL Normal 80.0-100.0 [facility] Comment on above: Order Comment: Speci men Type: BLOOD SPECIMEN Ordering Facility: [facility] Address: [address] [place] [address] Performed By: #### 5 7021-8 #### [facility] CLIA [id number] [address] [place] [address] Monocytes (Bld) [#/Vol] 0.92 10*3/uL High <0.87 [facility] Comment on above: Order Comment: Speci men Type: BLOOD SPECIMEN Ordering Facility: [facility] Address: [address] [place] [address] Performed By: #### 5 7021-8 #### [facility] CLIA [id number] [address] [place] [address] 11614 Monocytes/100 WBC (Bld) 9.4 % Normal [facility] Comment on above: Order Comment: Speci men Type: BLOOD SPECIMEN Ordering Facility: [facility] Address: [address] [place] [address] Performed By: #### 5 7021-8 #### [facility] CLIA [id number] [address] [place] [address] Neutrophils (Bld) [#/Vol] 7.74 10*3/uL High 1.45-7.50 [facility] Comment on above: Order Comment: Speci men Type: BLOOD SPECIMEN Ordering Facility: [facility] Address: [address] [place] [address] Performed By: #### 5 7021-8 #### [facility] CLIA [id number] [address] [place] [address]2506 Neutrophils/100 WBC (Bld) 78.9 % Normal [facility] Comment on above: Order Comment: Speci men Type: BLOOD SPECIMEN Ordering Facility: [facility] Address: [address] [place] [address] Performed By: #### 5 7021-8 #### [facility] CLIA [id number] [address] [place] [address]3492 Nucleated RBC (Bld) [#/Vol] 10*3/uL Normal <0.01 [facility] Comment on above: Order Comment: Speci men Type: BLOOD SPECIMEN Ordering Facility: [facility] Address: [address] [place] [address] Performed By: #### 5 7021-8 #### [facility] CLIA [id number] [address] [place] [address] 23885 Nucleated RBC/100 WBC (Bld) [Ratio] 0.0 /100 WBC Normal [facility] Comment on above: Order Comment: Speci men Type: BLOOD SPECIMEN Ordering Facility: [facility] Address: [address] [place] [address] Performed By: #### 5 7021-8 #### [facility] CLIA [id number] [address] [place] [address] 12332 Platelet mean volume (Bld) [Entitic vol] 9.4 fL Normal 9.0-12.7 [facility] Comment on above: Order Comment: Speci men Type: BLOOD SPECIMEN Ordering Facility: [facility] Address: [address] [place] [address] Performed By: #### 5 7021-8 #### [facility] CLIA [id number] [address] [place] [address]6031 Platelets (Bld) [#/Vol] 279 10*3/uL Normal 150-400 [facility] Comment on above: Order Comment: Speci men Type: BLOOD SPECIMEN Ordering Facility: [facility] Address: [address] [place] [address] Performed By: #### 5 7021-8 #### [facility] CLIA [id number] [address] [place] [address] 64991 RBC (Bld) [#/Vol] 4.25 10*6/uL Normal 3.90-5.20 [facility] Comment on above: Order Comment: Speci men Type: BLOOD SPECIMEN Ordering Facility: [facility] Address: [address] [place] [address] Performed By: #### 5 7021-8 #### [facility] CLIA [id number] [address] [place] [address] 27383 WBC (Bld) [#/Vol] 9.81 10*3/uL Normal 3.70-11.00 [facility] Comment on above: Order Comment: Speci men Type: BLOOD SPECIMEN Ordering Facility: [facility] Address: [address] [place] [address] Performed By: #### 5 7021-8 #### [facility] CLIA [id number] [address] [place] [address] CNOVSPon 09-12-2023 CNOVS Visit (SP) Office ([place]) KYALIE SALOMON ([id number]) 1950 F Date Time Provider Department 09/12/23 1:15 PM REGINALD ARAGON During your visit today, we recorded the following information about you: Temperature Pulse Respiration Blood pressure 97.7 degrees 88/minute 16/minute 108/67 Weight Height 121.6 kg 1.677 m Reginald Aragon MD 09/12/2023 7:56 PM Signed PATIENT NAME: Kaylie Salomon DATE: 09/12/2023 PRIMARY CARE PHYSICIAN: Dr. Landeros [facility] Portions of this encounter note have [...] on 03/14/2023) ALLERGIES: Clarithromycin, Conjugated Estrogens, Neosporin [Idlazepu-Xfmuosncru-R olymyxin], Paclitaxel, Peanut, Penicillins, and Sulfa (Sulfonamide Antibiotics) PAST MEDICAL HISTORY: PAST MEDICAL HISTORY Diagnosis Date AF (atrial fibrillation) ([facility]) Asthma Breast cancer (HCC) 02/2019 referral [...] Skin: Ne (more content not included)... [facility] PONCHO Telephone ([place]) KAYLIE SALOMON ([id number]) 1950 F Date Time Provider Department 09/12/23 CARIN RAMOS During your visit today, we recorded the following information about you: Carin Ramos RN 09/12/2023 1:42 PM Signed BRM/HM: Please sign pended order Orders sent to [facility], [facility] PH: [phone] Will notifagustin Monsalve, healthcare economics manager, once signed DILCIA Velasco Natalie, RN 09/12/2023 2:59 PM Signed Ordered faxed to [facility] Ramos RN Allergies As of Date: 09/12/2023 Noted Allergy Reaction CLARITHROMYCIN 01/27/2010 16 - Unknown CONJUGATED ESTROGENS 01/27/2010 16 - Unknown NEOSPORIN (MZFORZLG-SLFRHRIAQK-P O*05/06/2019 2 - Rash PACLITAXEL 08/24/2019 14 [...] right breast [Z90.11] Order(s):BREAST PROSTHESIS, MASTECTOMY BRA [[id number]] Order #: [id number] Prescriptions as of 09/12/2023 - BREO ELLIPTA [...] Status:Closed by CARIN RAMOS on 09/12/23 Normal [facility] Cancer Ag27-29 SerPl-aCncon 09-12-2023 Cancer Ag 27-29 Qn 31.6 [arb'U]/mL Normal <38.6 [facility] Comment on above: Order Comment: Speci men Type: BLOOD SPECIMEN Ordering Facility: [facility] Address: [address] [place] [address] Result Comment: The CA27.29 test was performed using the Siemens hovelstayaur XP chemiluminometric immunoassay method. Results obtained with different assay methods or kits cannot be used interchangeably. Performed By: #### 1 7842-6 #### [facility] CLIA [id number] [address] [facility] [id number] [address] [place] Comprehensive metabolic 2000 panelon 09-12-2023 Albumin [Mass/Vol] 4.4 g/dL Normal 3.9-4.9 [facility] Comment on above: Order Comment: Speci men Type: BLOOD SPECIMEN Ordering Facility: [facility] Address: [address] [place] [address] Performed By: #### 2 4323-8 #### [facility] CLIA [id number] [address] [place] [address]97 ALP [Catalytic activity/Vol] 87 U/L Normal 34-123 [facility] Comment on above: Order Comment: Speci men Type: BLOOD SPECIMEN Ordering Facility: [facility] Address: [address] [place] [address] Performed By: #### 2 4323-8 #### [facility] CLIA [id number] [address] [place] [address]70 ALT [Catalytic activity/Vol] 11 U/L Normal 7-38 [facility] Comment on above: Order Comment: Speci men Type: BLOOD SPECIMEN Ordering Facility: [facility] Address: [address] [place] [address] Performed By: #### 2 4323-8 #### [facility] CLIA [id number] [address] [place] [address] Anion gap [Moles/Vol] 10 mmol/L Normal 9-18 [facility] Comment on above: Order Comment: Speci men Type: BLOOD SPECIMEN Ordering Facility: [facility] Address: [address] [place] [address] Performed By: #### 2 4323-8 #### [facility] CLIA [id number] [address] [place] [address]91 AST [Catalytic activity/Vol] 14 U/L Normal 13-35 [facility] Comment on above: Order Comment: Speci men Type: BLOOD SPECIMEN Ordering Facility: [facility] Address: [address] [place] [address] Performed By: #### 2 4323-8 #### [facility] CLIA [id number] [address] [place] [address] Bilirubin [Mass/Vol] 0.6 mg/dL Normal 0.2-1.3 [facility] Comment on above: Order Comment: Speci men Type: BLOOD SPECIMEN Ordering Facility: [facility] Address: [address] [place] [address] Performed By: #### 2 4323-8 #### [facility] CLIA [id number] [address] [place] [address] Calcium [Mass/Vol] 9.7 mg/dL Normal 8.5-10.2 [facility] Comment on above: Order Comment: Speci men Type: BLOOD SPECIMEN Ordering Facility: [facility] Address: [address] [place] [address] Performed By: #### 2 4323-8 #### [facility] CLIA [id number] [address] [place] [address] Chloride [Moles/Vol] 96 mmol/L Low 97-105 [facility] Comment on above: Order Comment: Speci men Type: BLOOD SPECIMEN Ordering Facility: [facility] Address: [address] [place] [address] Performed By: #### 2 4323-8 #### [facility] CLIA [id number] [address] [place] [address] CO2 [Moles/Vol] 31 mmol/L High 22-30 [facility] Comment on above: Order Comment: Speci men Type: BLOOD SPECIMEN Ordering Facility: [facility] Address: [address] [place] [address] Performed By: #### 2 4323-8 #### [facility] CLIA [id number] [address] [place] [address] Creatinine [Mass/Vol] 1.10 mg/dL High 0.58-0.96 [facility] Comment on above: Order Comment: Speci men Type: BLOOD SPECIMEN Ordering Facility: [facility] Address: [address] [place] [address] Performed By: #### 2 4323-8 #### [facility] CLIA [id number] [address] [place] [address]758 Creatinine and Glomerular filtration rate.predicted panel (S/P/Bld) 53 mL/min/1.73m??? Low >=60 [facility] Comment on above: Order Comment: Speci men Type: BLOOD SPECIMEN Ordering Facility: [facility] Address: [address] [place] [address] Result Comment: Violette mated Glomerular Filtration Rate [...] GFR. Performed By: #### 2 4323-8 #### [facility] CLIA [id number] [address] [place] [address]21 Glucose [Mass/Vol] 115 mg/dL High 74-99 [facility] Comment on above: Order Comment: Speci men Type: BLOOD SPECIMEN Ordering Facility: [facility] Address: [address] [place] [address] Result Comment: The [place] [employer] (ADA) provides guidance for cutoff [...] Standards of Medical Care in Diabetes 2016, [place] [employer]. Diabetes Care. 2016.39(Suppl 1). Performed By: #### 2 4323-8 #### [facility] CLIA [id number] [address] [place] [address]44 Potassium [Moles/Vol] 4.4 mmol/L Normal 3.7-5.1 [facility] Comment on above: Order Comment: Speci men Type: BLOOD SPECIMEN Ordering Facility: [facility] Address: [address] [place] [address] Performed By: #### 2 432-8 #### [facility] CLIA [id number] [address] [place] [address]93 Protein [Mass/Vol] 7.4 g/dL Normal 6.3-8.0 [facility] Comment on above: Order Comment: Speci men Type: BLOOD SPECIMEN Ordering Facility: [facility] Address: [address] [place] [address] Performed By: #### 2 4323-8 #### [facility] CLIA [id number] [address] [place] [address]86 Sodium [Moles/Vol] 137 mmol/L Normal 136-144 [facility] Comment on above: Order Comment: Speci men Type: BLOOD SPECIMEN Ordering Facility: [facility] Address: [address] [place] [address] Performed By: #### 2 432-8 #### [facility] CLIA [id number] [address] [place] [address] Urea nitrogen [Mass/Vol] 36 mg/dL High 7-21 [facility] Comment on above: Order Comment: Speci men Type: BLOOD SPECIMEN Ordering Facility: [facility] Address: [address] [place], [place] [address] Performed By: #### 2 4323-8 #### [facility] CLIA [id number] [address] [place] [address]502 CBC W Auto Differential pane l (Bld)on 09-13-2022 Basophils (Bld) [#/Vol] <0.11 k/uL [facility] Basophils/100 WBC (Bld) 0.2 % [facility] Differential cell count method Nom (Bld) Auto [facility] Eosinophils (Bld) [#/Vol] <0.46 k/uL [facility] Eosinophils/100 WBC (Bld) 0.0 % [facility] Erythrocyte distribution width (RBC) [Ratio] 14.1 % 11.5 - 15.0 % [facility] Hematocrit (Bld) [Volume fraction] 38.1 % 36.0 - 46.0 % [facility] Hemoglobin (Bld) [Mass/Vol] 11.7 g/dL 11.5 - 15.5 g/dL [facility] Immature granulocytes (Bld) [#/Vol] 0.05 10*3/uL <0.10 k/uL [facility] Immature granulocytes/100 WBC (Bld) 0.5 % [facility] Lymphocytes (Bld) [#/Vol] 1.15 10*3/uL 1.00 - 4.00 k/uL [facility] Lymphocytes/100 WBC (Bld) 11.5 % [facility] MCH (RBC) [Entitic mass] 29.4 pg 26.0 - 34.0 pg [facility] MCHC (RBC) [Mass/Vol] 30.7 g/dL 30.5 - 36.0 g/dL [facility] MCV (RBC) [Entitic vol] 95.7 fL 80.0 - 100.0 fL [facility] Monocytes (Bld) [#/Vol] 0.75 10*3/uL <0.87 k/uL [facility] Monocytes/100 WBC (Bld) 7.5 % [facility] Neutrophils (Bld) [#/Vol] 8.04 10*3/uL High 1.45 - 7.50 k/uL [facility] Neutrophils/100 WBC (Bld) 80.3 % [facility] Nucleated RBC (Bld) [#/Vol] <0.01 k/uL [facility] Nucleated RBC/100 WBC (Bld) [Ratio] 0.0 /100 WBC [facility] Platelet mean volume (Bld) [Entitic vol] 10.0 fL 9.0 - 12.7 fL [facility] Platelets (Bld) [#/Vol] 267 10*3/uL 150 - 400 k/uL [facility] RBC (Bld) [#/Vol] 3.98 10*6/uL 3.90 - 5.2 0 m/uL [facility] WBC (Bld) [#/Vol] 10.01 10*3/uL 3.70 - 11 .00 k/uL [facility] Comprehensive metabolic 2000 panelon 09-13-2022 Albumin [Mass/Vol] 4.2 g/dL 3.9 - 4.9 g/dL [facility] ALP [Catalytic activity/Vol] 97 U/L 34 - 123 U/L [facility] ALT [Catalytic activity/Vol] 10 U/L 7 - 38 U/L [facility] Anion gap [Moles/Vol] 10 mmol/L 9 - 18 mmol/L [facility] AST [Catalytic activity/Vol] 12 U/L Low 13 - 35 U/L [facility] Bilirubin [Mass/Vol] 0.4 mg/dL 0.2 - 1 .3 mg/dL [facility] Calcium [Mass/Vol] 9.3 mg/dL 8.5 - 10. 2 mg/dL [facility] Chloride [Moles/Vol] 101 mmol/L 97 - 10 5 mmol/L [facility] CO2 [Moles/Vol] 29 mmol/L 22 - 30 mmol/L [facility] Creatinine [Mass/Vol] 1.02 mg/dL High 0.58 - 0.96 mg/dL [facility] Estimated Glomerular Filtration Rate 58 mL/min/1.73m Low >=60 mL/min/1.73m [facility] Glucose [Mass/Vol] 139 mg/dL High 74 - 99 mg/dL [facility] Potassium [Moles/Vol] 3.9 mmol/L 3.7 - 5.1 mmol/L [facility] Protein [Mass/Vol] 6.9 g/dL 6.3 - 8.0 g/dL [facility] Sodium [Moles/Vol] 140 mmol/L 136 - 144 mmol/L [facility] Urea nitrogen [Mass/Vol] 25 mg/dL High 7 - 21 mg/dL [facility] XR CHEST 2 Von 08-15-2022 XR [...] MALLORY Date: 2022-08-15 06:58 Normal [facility] BNPon 07-23-2022 Natriuretic peptide B (Bld) [Mass/Vol] 1362.0 pg/mL Critically high <=900.0 [facility] Comment on above: Performed By: #### C MADM, CMP, BNP #### [facility] [address] [address] [address] Hector Rubio CARDIAC [place] ADMITon 022 CK [Catalytic activity/Vol] 84 U/L Normal 26-192 [facility] Comment on above: Performed By: #### C MADM, CMP, BNP #### [facility] [address] [address] [address] Hector Rubio CK.MB [Mass/Vol] 2.22 ng/mL Normal <=3.60 [facility] Comment on above: Performed By: #### C MADM, CMP, BNP #### [facility] [address] [address] [address] Hector Rubio HSTROP 41.0 pg/mL Normal 4.0-51.3 [facility] Comment on above: Result Comment: CUT- OFF POINTS HAVE BEEN ESTABLISHED BASED ON THE FOURTH UNIVERSAL DEFINITIONS OF MYOCARDIAL INFARCTION. THE UPPER REFERENCE LIMIT (URL) OF TROPONIN, DEFINED THE 99TH PERCENTILE OF cTnI DISTRIBUTION IN A REFERENCE POPULATION, HAS BEEN CONFIRMED THE DECISION THRESHOLD FOR AL DIAGNOSIS. Performed By: #### C MADM, CMP, BNP #### [facility] [address] [place] [address] Dr. Hector Rubio DIONNE 95 ng/mL Critically high 9-82 [facility] Comment on above: Performed By: #### C MADM, CMP, BNP #### [facility] [address] [place] [address] Dr. Hector Rubio CBC AUTO DIFFon 07-23-2022 BASO # 0.0 103/ul Normal 0.0-0.1 [facility] Comment on above: Performed By: #### C BC #### [facility] [address] [place] [address] Dr. Hector Rubio Basophils/100 WBC (Bld) 0.1 % Critically low 0.2-2.0 [facility] Comment on above: Performed By: #### C BC #### [facility] [address] [place] [address] Dr. Hector Rubio EO # 0.0 103/ul Normal 0.0-0.7 [facility] Comment on above: Performed By: #### C BC #### [facility] [address] [place] [address] Dr. Hector Rubio Eosinophils/100 WBC (Bld) 0.0 % Critically low 0.9-7.0 [facility] Comment on above: Performed By: #### C BC #### [facility] [address] [place] [address] Dr. Hector Rubio Erythrocyte distribution width (RBC) [Ratio] 13.7 % Normal 11.0-15.0 [facility] Comment on above: Performed By: #### C BC #### [facility] [address] [place] [address] Dr. Hector Rubio Hematocrit (Bld) [Volume fraction] 38.9 % Normal 36.0-48.0 [facility] Comment on above: Performed By: #### C BC #### [facility] [address] [place] [address] Dr. Hector Rubio Hemoglobin (Bld) [Mass/Vol] 11.8 g/dL Critically low 12.0-16.0 [facility] Comment on above: Performed By: #### C BC #### [facility] [address] [place] [address] Dr. Hector Rubio IG # 0.02 10e3/ul Normal 0.00-0.03 [facility] Comment on above: Performed By: #### C BC #### [facility] [address] [place] [address] Dr. Hector Rubio IG % 0.3 % Normal 0.0-0.5 [facility] Comment on above: Performed By: #### C BC #### [facility] [address] [place] [address] Dr. Hector Rubio LYMPH # 1.0 103/ul Critically low 1.2-3.8 [facility] Comment on above: Performed By: #### C BC #### [facility] [address] [place] [address] Dr. Hector Rubio Lymphocytes/100 WBC (Bld) 12.6 % Critically low 20.5-60.0 [facility] Comment on above: Performed By: #### C BC #### [facility] [address] [place] [address] Dr. Hector Rubio MANUAL DIFF REQ NO Normal [facility] Comment on above: Performed By: #### C BC #### [facility] [address] [place] [address] Dr. Hector Rubio MCH (RBC) [Entitic mass] 29.0 pg Normal 26.7-34.0 [facility] Comment on above: Performed By: #### C BC #### [facility] [address] [place] [address] Dr. Hector Rubio MCHC (RBC) [Mass/Vol] 30.3 g/dL Normal 29.9-35.2 [facility] Comment on above: Performed By: #### C BC #### [facility] [address] [address] [address] Hector Rubio MCV (RBC) [Entitic vol] 95.6 fL Normal 81.0-99.0 [facility] Comment on above: Performed By: #### C BC #### [facility] [address] [address] [address] Hector Rubio MONO # 0.7 103/ul Normal 0.3-0.8 [facility] Comment on above: Performed By: #### C BC #### [facility] [address] [address] [address] Hector Rubio Monocytes/100 WBC (Bld) 9.0 % Normal 1.7-12.0 [facility] Comment on above: Performed By: #### C BC #### [facility] [address] [place] [address] Dr. Hector Rubio NEUT # 6.1 103/ul Normal 1.4-6.5 [facility] Comment on above: Performed By: #### C BC #### [facility] [address] [place] [address] Dr. Hector Rubio Neutrophils/100 WBC (Bld) 78.0 % Critically high 43.0-75.0 [facility] Comment on above: Performed By: #### C BC #### [facility] [address] [address] [address] Hector Rubio Platelet mean volume (Bld) [Entitic vol] 9.7 fL Normal 9.5-13.5 [facility] Comment on above: Performed By: #### C BC #### [facility] [address] [address] [address] Hector Rubio PLT 202 103/ul Normal 150-450 [facility] Comment on above: Performed By: #### C BC #### [facility] [address] [place] [address] Dr. Hector Rubio RBC 4.07 106/ul Critically low 4.20-5.40 [facility] Comment on above: Performed By: #### C BC #### [facility] [address] [address] [address] Hector Rubio WBC 7.8 103/ul Normal 4.0-11.0 [facility] Comment on above: Performed By: #### C BC #### [facility] [address] [address] [address] Hector Rubio Covid-19 PCR (CVDTBH)on 07-01 SARS-CoV-2 (COVID-19) RNA SHLOMO+probe Ql (Unsp spec) Not detected Normal NOT DETECTED [facility] Comment on above: Result Comment: When [...] for this test is supported by the [employer] Peg[employer] of Health and Human Service's declaration that [...] Performed By: #### C VDTBH #### [facility] [address] [place] [address] Dr. Hector Rubio PROF 14(COMP METB)on 022 Albumin [Mass/Vol] 3.7 g/dL Normal 3.4-5.0 [facility] Comment on above: Performed By: #### C MADM, CMP, BNP #### [facility] [address] [place] [address] Dr. Hector Rubio Albumin/Globulin [Mass ratio] 0.9 {ratio} Normal [facility] Comment on above: Performed By: #### C MADM, CMP, BNP #### [facility] [address] [address] [address] Hectro Rubio ALP [Catalytic activity/Vol] 90 U/L Normal 46-116 [facility] Comment on above: Performed By: #### C MADM, CMP, BNP #### [facility] [address] [address] [address] Hector Rubio ALT [Catalytic activity/Vol] 17 U/L Normal 14-59 [facility] Comment on above: Performed By: #### C MADM, CMP, BNP #### [facility] [address] [address] [address] Hector Rubio Anion gap [Moles/Vol] 7.8 mmol/L Normal [facility] Comment on above: Performed By: #### C MADM, CMP, BNP #### [facility] [address] [place] [address] Dr. Hector Rubio AST [Catalytic activity/Vol] 12 U/L Critically low 15-37 [facility] Comment on above: Performed By: #### C MADM, CMP, BNP #### [facility] [address] [place] [address] Dr. Hector Rubio Bilirubin [Mass/Vol] 0.5 mg/dL Normal 0.2-1.0 [facility] Comment on above: Performed By: #### C MADM, CMP, BNP #### [facility] [address] [place] [address] Dr. Hector Rubio Calcium [Mass/Vol] 9.1 mg/dL Normal 8.5-10.[address] [facility] Comment on above: Performed By: #### C MADM, CMP, BNP #### [facility] [address] [place] [address] Dr. Hector Rubio Chloride [Moles/Vol] 102 mmol/L Normal 98-107 [facility] Comment on above: Performed By: #### C MADM, CMP, BNP #### [facility] [address] [place] [address] Dr. Hector Rubio CO2 [Moles/Vol] 33.1 mmol/L Critically high 21.0-32.0 [facility] Comment on above: Performed By: #### C MADM, CMP, BNP #### [facility] [address] [address] [address] Hector Rubio Creatinine [Mass/Vol] 0.89 mg/dL Normal 0.55-1.02 [facility] Comment on above: Performed By: #### C MADM, CMP, BNP #### [facility] [address] [address] [address] Hector Rubio EGFR-AF ETHIOPIAN >60 Normal >=60 [facility] Comment on above: Performed By: #### C MADM, CMP, BNP #### [facility] [address] [address] [address] Hector Rubio EGFR-NON AF ETHIOPIAN >60 Normal >=60 [facility] Comment on above: Performed By: #### C MADM, CMP, BNP #### [facility] [address] [address] [address] Hector Rubio Globulin (S) [Mass/Vol] 4.0 g/dL Normal [facility] Comment on above: Performed By: #### C MADM, CMP, BNP #### [facility] [address] [address] [address] Hector Rubio Glucose [Mass/Vol] 118 mg/dL Critically high 74-106 [facility] Comment on above: Performed By: #### C MADM, CMP, BNP #### [facility] [address] [address] [address] Hector Rubio Potassium [Moles/Vol] 3.9 mmol/L Normal 3.5-5.1 [facility] Comment on above: Performed By: #### C MADM, CMP, BNP #### [facility] [address] [address] [address] Hector Rubio Protein [Mass/Vol] 7.7 g/dL Normal 6.4-8.[address] [facility] Comment on above: Performed By: #### C MADM, CMP, BNP #### [facility] [address] [address] [address] Hector Rubio Sodium [Moles/Vol] 139 mmol/L Normal 136-[address] [facility] Comment on above: Performed By: #### C MADM, CMP, BNP #### [facility] [address] [address] [address] Hector Rubio Urea nitrogen [Mass/Vol] 29.0 mg/dL Critically high 7.0-18.0 [facility] Comment on above: Performed By: #### C MADM, CMP, BNP #### [facility] [address] [address] [address] Hector Rubio Urea nitrogen/Creatinine [Mass ratio] 32.6 mg/mg Normal [facility] Comment on above: Performed By: #### C MADM, CMP, BNP #### [facility] [address] [address] [address] Hector Rubio XR CHEST 1 Von [...] by: GABRIELLE LIU Date: 2022-07-23 16:40 Normal [facility] MG MAMM DX 3D LT CADon 06-14 MG MAMM DX 3D LT CAD Patient: KAYLIE SALOMON Exam Date: 06/14/2022 : 1950 Gender:F Ordering : DR REGINALD ARAGON M.D. Admission #: [id number] Family : Order #: [id number] CLICK HERE TO VIEW EXAM CORRECTION Corrected on: 09/18/2022; RADIOLOGY REPORT PROCEDURE: MAMMOGRAM DIAGNOSTIC 3D LEFT CAD COMPARISON: MG MAMM LT DIAG W CAD, 06/08/2020. MG MAMM SCREEN [place] W CAD, 11/26/2017. MG MAMM DX 3D LT CAD, 06/13/2021. 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 [...] M.D. on 09/18/2022 at 09:22 Normal [facility] CT Chest W contrast Juan Jose [...] any questions regarding this interpretation, please call [phone]. If you are unable to reach us at the number above, please feel free to contact [facility] at [phone]. DIVISION OF RADIOLOGY * * *Final Report* * * DATE OF EXAM: Aug 17 2021 10:00AM [facility] 0539 - CT CHEST W IVCON / [...] kidney. The upper abdomen is otherwise unremarkable. Corrosion Control Engineer (topogram) images: No additional findings. DIVISION OF RADIOLOGY Provider, [facility] - 08/17/2021 * * *Final Report* * * DATE OF EXAM: Aug 17 2021 10:00AM [facility] 0539 - CT CHEST W IVCON / [...] kidney. The upper abdomen is otherwise unremarkable. Corrosion Control Engineer (topogram) images: No additional findings. IMPRESSION IMPRESSION: [...] any questions regarding this interpretation, please call [phone]. If you are unable to reach us at the number above, please feel free to contact [facility]iology at [phone]. [facility] Radiology Study observation (narrative) [facility] CT Chest W contrast IVOrdere d By: [facility] Provider on 08-17-2021 [facility] BASIC METABOLIC PANELon 05-0 Calcium [Mass/Vol] 9.3 mg/dL Normal 8.6-10.3 [facility] Comment on above: Order Comment: Yes: Add to Previous draw if able Performed By: #### 0 0121, 24696 #### [facility] [address] [place] [address], [place] Chloride [Moles/Vol] 98 mmol/L Normal 98-107 [facility] Comment on above: Order Comment: Yes: Add to Previous draw if able Performed By: #### 0 0121, 73295 #### [facility] [address] [place] [address], [place] CO2 [Moles/Vol] 34 mmol/L High 21-31 [facility] Comment on above: Order Comment: Yes: Add to Previous draw if able Performed By: #### 0 0121, 66731 #### [facility] [address] [place] [address], [place] Creatinine [Mass/Vol] 0.59 mg/dL Low 0.60-1.20 [facility] Comment on above: Order Comment: Yes: Add to Previous draw if able Performed By: #### 0 0121, 63643 #### [facility] [address] [place] [address], [place] GFR/1.73 sq M predicted among blacks MDRD (S/P/Bld) [Vol rate/Area] mL/min/{1.73_m2} Normal >60 [facility] Comment on above: Order Comment: Yes: Add to Previous draw if able Result Comment: Calc ulation may not be valid for patients over 70 years Performed By: #### 0 0121, 34904 #### [facility] [address] [place] [address], [facility] GFR/1.73 sq M predicted among non-blacks MDRD (S/P/Bld) [Vol rate/Area] mL/min/{1.73_m2} Normal >60 [facility] Comment on above: Order Comment: Yes: Add to Previous draw if able Result Comment: Calc ulation may not be valid for patients over 70 years Performed By: #### 0 0121, 20202 #### [facility] [address] [place] [address], [facility] Glucose [Mass/Vol] 256 mg/dL High 70-100 [facility] Comment on above: Order Comment: Yes: Add to Previous draw if able Performed By: #### 0 0121, 43205 #### [facility] [address] [facility] [address], [facility] Potassium [Moles/Vol] 4.5 mmol/L Normal 3.5-5.1 [facility] Comment on above: Order Comment: Yes: Add to Previous draw if able Performed By: #### 0 0121, 57712 #### [facility] [address] [place] [address], [facility] Sodium [Moles/Vol] 139 mmol/L Normal 136-145 [facility] Comment on above: Order Comment: Yes: Add to Previous draw if able Performed By: #### 0 0121, 83409 #### [facility] [address] [place] [address], [facility] Urea nitrogen [Mass/Vol] 21 mg/dL Normal 7-25 [facility] Comment on above: Order Comment: Yes: Add to Previous draw if able Performed By: #### 0 0121, 69665 #### [facility] [address] [place] [address], [facility] CBC W/DIFFon 02-02-2019 ABS BASOPHILS 0.0 10*3/uL Normal 0.0-0.2 [facility] Comment on above: Performed By: #### 0 012, 31505 #### [facility] [address] [place] [address], [facility] ABS IMM GRANS 0.1 10*3/uL Normal 0.0-0.2 [facility] Comment on above: Performed By: #### 0 012, 41450 #### [facility] [address] [place] [address], [facility] ABS NEUTROPHILS 16.9 10*3/uL High 1.6-7.6 [facility] Comment on above: Performed By: #### 0 0121, 33759 #### [facility] [address] [place] [place] [address], [facility] Basophils/100 WBC (Bld) 0.1 % Normal 0.0-1.0 [facility] Comment on above: Performed By: #### 0 012, 37889 #### [facility] [address] [facility] [place] [address], [facility] Eosinophils (Bld) [#/Vol] 0.0 10*3/uL Normal 0.0-0.5 [facility] Comment on above: Performed By: #### 0 012, 21769 #### [facility] [address] [facility] [place] [address], [facility] Eosinophils/100 WBC (Bld) 0.0 % Normal 0.0-6.0 [facility] Comment on above: Performed By: #### 0 012, 22070 #### [facility] [address] [place] [address], [facility] Erythrocyte distribution width (RBC) [Ratio] 14.3 % Normal 11.5-15.0 [facility] Comment on above: Performed By: #### 0 012, 86592 #### [facility] [address] [place] [address], [place] Hematocrit (Bld) [Volume fraction] 37.3 % Normal 36.0-45.0 [facility] Comment on above: Performed By: #### 0 0121, 80259 #### [facility] [address] [place] [address], [facility] Hemoglobin (Bld) [Mass/Vol] 11.6 g/dL Low 12.0-15.0 [facility] Comment on above: Performed By: #### 0 0121, 26144 #### [facility] [address] [place] [address], [facility] IMMATURE GRANS 0.4 % Normal 0.0-1.0 [facility] Comment on above: Performed By: #### 0 0121, 13111 #### [facility] [address] [place] [address], [facility] Lymphocytes (Bld) [#/Vol] 0.5 10*3/uL Low 1.2-4.0 [facility] Comment on above: Performed By: #### 0 0121, 57695 #### [facility] [address] [place] [address], [facility] Lymphocytes/100 WBC (Bld) 2.5 % Low 20.0-45.0 [facility] Comment on above: Performed By: #### 0 0121, 54163 #### [facility] [address] [place] [address], [facility] MCH (RBC) [Entitic mass] 28.9 pg Normal 27.0-33.0 [facility] Comment on above: Performed By: #### 0 0121, 22541 #### [facility] [address] [place] [address], [facility] MCHC (RBC) [Mass/Vol] 31.1 g/dL Low 32.0-35.0 [facility] Comment on above: Performed By: #### 0 0121, 41402 #### [facility] [address] [place] [address], [facility] MCV (RBC) [Entitic vol] 93.0 fL Normal 82.0-98.0 [facility] Comment on above: Performed By: #### 0 0121, 56244 #### [facility] [address] [place] [address], [facility] Monocytes (Bld) [#/Vol] 0.3 10*3/uL Normal 0.1-1.0 [facility] Comment on above: Performed By: #### 0 0121, 42045 #### [facility] [address] [place] [address], [facility] MONOS 1.5 % Low 5.0-12.0 [facility] Comment on above: Performed By: #### 0 0121, 16948 #### [facility] [address] [place] [address], [facility] Neutrophils/100 WBC (Bld) 95.5 % High 40.0-72.0 [facility] Comment on above: Performed By: #### 0 0121, 17607 #### [facility] [address] [place] [address], [facility] Nucleated RBC/100 WBC (Bld) [Ratio] 0 % Normal 0-0 [facility] Comment on above: Performed By: #### 0 0121, 37930 #### [facility] [address] [place] [address], [facility] PLAT CNT 265 10*3/uL Normal 150-400 [facility] Comment on above: Performed By: #### 0 0121, 19329 #### [facility] [address] [place] [address], [facility] RBC (Bld) [#/Vol] 4.01 10*6/uL Normal 3.80-5.00 [facility] Comment on above: Performed By: #### 0 0121, 89813 #### [facility] [address] WBC (Bld) [#/Vol] 17.67 10*3/uL High 4.00-10.60 [facility] Comment on above: Performed By: #### 0 0121, 12617 #### [facility] [address] [place] [address], [facility] POC GLUCOSE LABon 02-02-2019 Glucose [Mass/Vol] 215 mg/dL High 70-100 [facility] Comment on above: Performed By: #### 0 0121, 82723 #### [facility] [address] [facility] BNP (B-TYPE NATRIURETIC PEPT DARCI)on 02-01-2019 Natriuretic peptide B (Bld) [Mass/Vol] 423 pg/mL High 0-100 [facility] Comment on above: Order Comment: Yes: Add to Previous draw if able Result Comment: Give n the appropriate clinical setting a BNP result of >100 pg/mL indicates congestive heart failure. Performed By: #### 8 5123 #### [facility] [address] [place] [address], [facility] CBC W/DIFFon 02-01-2019 ABS BASOPHILS 0.0 10*3/uL Normal 0.0-0.2 [facility] Comment on above: Order Comment: Yes: Add to Previous draw if able Performed By: #### 5 0103 #### [facility] [address] [facility] ABS IMM GRANS 0.1 10*3/uL Normal 0.0-0.2 [facility] Comment on above: Order Comment: Yes: Add to Previous draw if able Performed By: #### 5 0103 #### [facility] [address] [place] [place] [address], [facility] ABS NEUTROPHILS 12.2 10*3/uL High 1.6-7.6 [facility] Comment on above: Order Comment: Yes: Add to Previous draw if able Performed By: #### 5 0103 #### [facility] [address] [place] [address], [facility] Basophils/100 WBC (Bld) 0.2 % Normal 0.0-1.0 [facility] Comment on above: Order Comment: Yes: Add to Previous draw if able Performed By: #### 0103 #### [facility] [address] [place] [address], [facility] Eosinophils (Bld) [#/Vol] 0.0 10*3/uL Normal 0.0-0.5 [facility] Comment on above: Order Comment: Yes: Add to Previous draw if able Performed By: #### 3 #### [facility] [address] [place] [address], [facility] Eosinophils/100 WBC (Bld) 0.0 % Normal 0.0-6.0 [facility] Comment on above: Order Comment: Yes: Add to Previous draw if able Performed By: #### 3 #### [facility] [address] [place] [id number], [facility] Erythrocyte distribution width (RBC) [Ratio] 14.3 % Normal 11.5-15.0 [facility] Comment on above: Order Comment: Yes: Add to Previous draw if able Performed By: #### 3 #### [facility] [address] [place] [id number], [facility] Hematocrit (Bld) [Volume fraction] 39.9 % Normal 36.0-45.0 [facility] Comment on above: Order Comment: Yes: Add to Previous draw if able Performed By: #### 3 #### [facility] [address] [place] [id number], [facility] Hemoglobin (Bld) [Mass/Vol] 11.8 g/dL Low 12.0-15.0 [facility] Comment on above: Order Comment: Yes: Add to Previous draw if able Performed By: #### 5 3 #### [facility] [address] [place] [address], [facility] IMMATURE GRANS 0.4 % Normal 0.0-1.0 [facility] Comment on above: Order Comment: Yes: Add to Previous draw if able Performed By: #### 5 0103 #### [facility] [address] [address], [facility] Lymphocytes (Bld) [#/Vol] 0.3 10*3/uL Low 1.2-4.0 [facility] Comment on above: Order Comment: Yes: Add to Previous draw if able Performed By: #### 5 0103 #### [facility] [address] [place] [address], [facility] Lymphocytes/100 WBC (Bld) 2.6 % Low 20.0-45.0 [facility] Comment on above: Order Comment: Yes: Add to Previous draw if able Performed By: #### 5 0103 #### [facility] [address] [place] [address], [facility] MCH (RBC) [Entitic mass] 28.6 pg Normal 27.0-33.0 [facility] Comment on above: Order Comment: Yes: Add to Previous draw if able Performed By: #### 5 0103 #### [facility] [address] [place] [address], [facility] MCHC (RBC) [Mass/Vol] 29.6 g/dL Low 32.0-35.0 [facility] Comment on above: Order Comment: Yes: Add to Previous draw if able Performed By: #### 5 0103 #### [facility] [address] [place] [address], [facility] MCV (RBC) [Entitic vol] 96.6 fL Normal 82.0-98.0 [facility] Comment on above: Order Comment: Yes: Add to Previous draw if able Performed By: #### 5 0103 #### [facility] [address] [place] [address], [facility] Monocytes (Bld) [#/Vol] 0.1 10*3/uL Normal 0.1-1.0 [facility] Comment on above: Order Comment: Yes: Add to Previous draw if able Performed By: #### 5 102 #### [facility] [address] [place] [address], [facility] MONOS 0.9 % Low 5.0-12.0 [facility] Comment on above: Order Comment: Yes: Add to Previous draw if able Performed By: #### 3 #### [facility] [address] [place] [id number], [facility] Neutrophils/100 WBC (Bld) 95.9 % High 40.0-72.0 [facility] Comment on above: Order Comment: Yes: Add to Previous draw if able Performed By: #### 5 102 #### [facility] [address] [place] [id number], [facility] Nucleated RBC/100 WBC (Bld) [Ratio] 0 % Normal 0-0 [facility] Comment on above: Order Comment: Yes: Add to Previous draw if able Performed By: #### 5 102 #### [facility] [address] [place] [address], [place] PLAT CNT 240 10*3/uL Normal 150-400 [facility] Comment on above: Order Comment: Yes: Add to Previous draw if able Performed By: #### 5 3 #### [facility] [address] [place] [address], [place] RBC (Bld) [#/Vol] 4.13 10*6/uL Normal 3.80-5.00 [facility] Comment on above: Order Comment: Yes: Add to Previous draw if able Performed By: #### 5 102 #### [facility] [address] [place] [address], [place] WBC (Bld) [#/Vol] 12.76 10*3/uL High 4.00-10.60 [facility] Comment on above: Order Comment: Yes: Add to Previous draw if able Performed By: #### 5 0103 #### [facility] [address] [place] [address], [facility] COMP METABOLIC PANELon 02-01 Albumin [Mass/Vol] 4.1 g/dL Normal 3.5-5.7 [facility] Comment on above: Order Comment: Yes: Add to Previous draw if able Performed By: #### 0 0121, 55417 #### [facility] [address] [place] [address], [facility] ALKALINE PHOSPH 70 IU/L Normal 34-104 [facility] Comment on above: Order Comment: Yes: Add to Previous draw if able Performed By: #### 0 0121, 52461 #### [facility] [address] [place] [address], [place] ALT [Catalytic activity/Vol] 14 U/L Normal 7-52 [facility] Comment on above: Order Comment: Yes: Add to Previous draw if able Performed By: #### 0 0121, 82649 #### [facility] [address] [place] [address], [place] AST [Catalytic activity/Vol] 16 U/L Normal 13-39 [facility] Comment on above: Order Comment: Yes: Add to Previous draw if able Performed By: #### 0 0121, 99050 #### [facility] [address] [place] [address], [place] Bilirubin [Mass/Vol] 0.5 mg/dL Normal 0.3-1.0 [facility] Comment on above: Order Comment: Yes: Add to Previous draw if able Performed By: #### 0 0121, 94268 #### [facility] [address] [place] [address], [place] Calcium [Mass/Vol] 9.0 mg/dL Normal 8.6-10.3 [facility] Comment on above: Order Comment: Yes: Add to Previous draw if able Performed By: #### 0 0121, 85690 #### [facility] [address] [place] [address], [place] Chloride [Moles/Vol] 98 mmol/L Normal 98-107 [facility] Comment on above: Order Comment: Yes: Add to Previous draw if able Performed By: #### 0 0121, 87404 #### [facility] [address] [place] [address], [place] CO2 [Moles/Vol] 31 mmol/L Normal 21-31 [facility] Comment on above: Order Comment: Yes: Add to Previous draw if able Performed By: #### 0 0121, 34653 #### [facility] [address] [place] [address], [place] Creatinine [Mass/Vol] 0.67 mg/dL Normal 0.60-1.20 [facility] Comment on above: Order Comment: Yes: Add to Previous draw if able Performed By: #### 0 0121, 49542 #### [facility] [address] [place] [address], [place] GFR/1.73 sq M predicted among blacks MDRD (S/P/Bld) [Vol rate/Area] mL/min/{1.73_m2} Normal >60 [facility] Comment on above: Order Comment: Yes: Add to Previous draw if able Result Comment: Calc ulation may not be valid for patients over 70 years Performed By: #### 0 0121, 65449 #### [facility] [address] [place] [address], [place] GFR/1.73 sq M predicted among non-blacks MDRD (S/P/Bld) [Vol rate/Area] mL/min/{1.73_m2} Normal >60 [facility] Comment on above: Order Comment: Yes: Add to Previous draw if able Result Comment: Calc ulation may not be valid for patients over 70 years Performed By: #### 0 0121, 07989 #### [facility] [address] [place] [address], [place] Glucose [Mass/Vol] 245 mg/dL High 70-100 [facility] Comment on above: Order Comment: Yes: Add to Previous draw if able Performed By: #### 0 0121, 21733 #### [facility] [address] [place] [address], [place] Potassium [Moles/Vol] 4.2 mmol/L Normal 3.5-5.1 [facility] Comment on above: Order Comment: Yes: Add to Previous draw if able Performed By: #### 0 0121, 15927 #### [facility] [address] [place] [address], [place] Protein [Mass/Vol] 7.1 g/dL Normal 6.0-8.3 [facility] Comment on above: Order Comment: Yes: Add to Previous draw if able Performed By: #### 0 0121, 53924 #### [facility] [address] [place] [address], [place] Sodium [Moles/Vol] 136 mmol/L Normal 136-145 [facility] Comment on above: Order Comment: Yes: Add to Previous draw if able Performed By: #### 0 0121, 30082 #### [facility] [address] [place] [address], [place] Urea nitrogen [Mass/Vol] 13 mg/dL Normal 7-25 [facility] Comment on above: Order Comment: Yes: Add to Previous draw if able Performed By: #### 0 0121, 02853 #### [facility] [address] [place] [address], [place] POC GLUCOSE LABon 02-01-2019 Glucose [Mass/Vol] 225 mg/dL High 70-100 [facility] Comment on above: Performed By: #### 0 0121, 05692 #### [facility] [address] [address], [facility] Glucose [Mass/Vol] 230 mg/dL High 70-100 [facility] Comment on above: Performed By: #### 0 0121, 50438 #### [facility] [address] [facility] [address], [place] Glucose [Mass/Vol] 237 mg/dL High 70-100 [facility] Comment on above: Performed By: #### 8 5499 #### [facility] [address] [facility] [address], [place] Glucose [Mass/Vol] 247 mg/dL High 70-100 [facility] Comment on above: Performed By: #### 8 5499 #### [facility] [address] PORTABLE CHEST 1 VIEWon PORTABLE CHEST 1 VIEW [facility] Department of Radiology [address] [place] [id number] ======== Patient Name: KAYLIE SALOMON : 1950 Sex: F Age: Race: White Pt. Location: [id number] Patient Status: I Ordered Date: 01/31/2019 11:45:00 [...] nondisplaced right posterolateral third rib fracture. Approved by:Rsoa Strange on 02/01/2019 12:35 AM EDT. I, Rachael Cardenas, have reviewed the images and report and concur with these findings. Electronically signed by:Rachael Cardenas. Transcribed by: [email or web address], User Resident: ROSA STRANGE Electronically Signed by: RACHAEL CARDENAS @ 02/01/2019 12:39 PM I personally read this/these film(s) with this resident Normal [facility] Comment on above: Order Comment: R/O I nfiltrates PROCALCITONINon 02-01-2019 PROCALCITONIN 0.07 ng/mL Normal 0.00-0.10 [facility] Comment on above: Order Comment: Yes: [...] PCT<0.5ng/mL Performed By: #### 3 1488 #### [facility] [address] TROPONIN-Ion 02-01-2019 Troponin I.cardiac [Mass/Vol] 0.08 ng/mL High 0.00-0.04 [facility] Comment on above: Order Comment: No: D o not add to previous draw Result Comment: REFE RENCE RANGES: 0.00 - 0.04 ng/ml NORMAL 0.05 - 0.50 ng/ml INDETERMINATE > 0.50 ng/ml CONSISTENT WITH AN M.I. Performed By: #### 3 5200 #### [facility] [address] [place] [address], [facility] Troponin I.cardiac [Mass/Vol] 0.08 ng/mL High 0.00-0.04 [facility] Comment on above: Order Comment: No: D o not add to previous draw Result Comment: REFE RENCE RANGES: 0.00 - 0.04 ng/ml NORMAL 0.05 - 0.50 ng/ml INDETERMINATE > 0.50 ng/ml CONSISTENT WITH AN M.I. Performed By: #### [id number] #### [facility] [address] [place] [address], [facility] Cardiovascular Lab Reporton 01-16-2019 Cardiovascular Lab Report [facility] Patient Name: [facility] Kaylie Caballero MR #: [id number] Department of Physician: Pepe Alexandre M.D. Division of Service Date: 01/16/2019 Cardiology Birthdate: 1950 Adult Cardiovascular Room #: [place] [id number] [place] [id number] Cardiovascular Laboratory Report FINAL IMPRESSION: 1. Nonobstructive [...] the right radial artery was obtained. A 6-Colombian glide sheath was inserted without difficulty. Bilateral [...] angled Glidewire. INDICATIONS: Troponin elevation, type 2 ggv-YL-shaflstfh myocardial infarction. Electronically Signed by: Shemar Hudson M.D. 01/29/2019 08:36 A Shemar Hudson M.D. Date Dict: 01/16/2019/01:01 P/Shemar Hudson M.D. Date Trans: 01/16/2019 02:39 P/kiran [id number] Normal [facility] SWEAT CHLORIDEon 12-03-2018 SWEAT CHLORIDE 36 mmol/L Abnormal [facility] Comment on above: Order Comment: Right [id number] Left arm [id number] Result Comment: REFE RENCE VALUES <=29 mMol/L CYSTIC FIBROSIS IS UNLIKELY 30-59 mMol/L INTERMEDIATE >=60 mMol/L INDICATIVE OF CYSTIC FIBROSIS NOTE: SWEAT CHLORIDE VALUES LESS THAN 30 mMol/L HAVE BEEN DOCUMENTED IN GENETICALLY PROVEN CF PATIENTS. CLINICAL CORRELATION IS NECESSARY. Performed By: #### S WCH1 #### [facility] [id number] [place] [address] WT COLLECTED 0.177 grams Normal [facility] Comment on above: Order Comment: Right [id number] Left arm [id number] Performed By: #### S WCH1 #### [facility] [id number] [place] [address] SWEAT CHLORIDE 42 mmol/L Abnormal [facility] Comment on above: Order Comment: Doroteo keith fax results to Doctor Charles Landeros MD. Phone: [phone] Result Comment: REFE RENCE VALUES <=29 mMol/L CYSTIC FIBROSIS IS UNLIKELY 30-59 mMol/L INTERMEDIATE >=60 mMol/L INDICATIVE OF CYSTIC FIBROSIS NOTE: SWEAT CHLORIDE VALUES LESS THAN 30 mMol/L HAVE BEEN DOCUMENTED IN GENETICALLY PROVEN CF PATIENTS. CLINICAL CORRELATION IS NECESSARY. Performed By: #### S WCH1 #### [facility] [address] [place] [address] WT COLLECTED 0.215 grams Normal [facility] Comment on above: Order Comment: Doroteo keith fax results to Doctor Charles Landeros MD. Phone: [phone] Performed By: #### S WCH1 #### [facility] [address] [place] [address] Vital Signs Date Time Vital Sign Value Performing Clinician Facility 05-06-2025 08:10-0400 Diastolic blood pressure 78 mm[Hg] Pema Reynolds MD Work Phone: [facility] [employer] [facility] 05-06-2025 08:10-0400 Heart rate 75 /min Pema Reynolds MD Work Phone: [facility] 05-06-2025 08:10-0400 Systolic blood pressure 118 mm[Hg] Pema Reynolds MD Work Phone: [facility] 05-06-2025 08:05-0400 Body height 167.6 cm Pema Reynolds MD Work Phone: [facility] 05-06-2025 08:05-0400 Body mass index (BMI) [Ratio] 41.13 kg/m2 Pema Reynolds MD Work Phone: [facility] [employer] [facility] 05-06-2025 08:05-0400 Body weight 115.58 kg Pema Reynolds MD Work Phone: [facility] 04-07-2025 13:47-0400 Body height 165.1 cm Jim Lombardi MD Work Phone: [facility] 04-07-2025 13:47-0400 Body mass index (BMI) [Ratio] 42.43 kg/m2 Jim Lombardi MD Work Phone: [facility] 04-07-2025 13:47-0400 Body weight 115.67 kg Jim Lombardi MD Work Phone: [facility] 04-07-2025 13:47-0400 Diastolic blood pressure 66 mm[Hg] Jim Lombardi MD Work Phone: [facility] 04-07-2025 13:47-0400 Heart rate 72 /min Jim Lombardi MD Work Phone: [facility] 04-07-2025 13:47-0400 Systolic blood pressure 103 mm[Hg] Jim Lombardi MD Work Phone: [facility] 07-30-2024 13:54-0400 Body height 167.7 cm Reginald Aragon MD Work Phone: [facility] 07-30-2024 13:54-0400 Body mass index (BMI) [Ratio] 40.64 kg/m2 Reginald Aragon MD Work Phone: [facility] 07-30-2024 13:54-0400 Body temperature 97.3 [degF] Reginald Aragon MD Work Phone: [facility] 07-30-2024 13:54-0400 Body weight 114.3 kg Reginald Aragon MD Work Phone: [facility] 07-30-2024 13:54-0400 Diastolic blood pressure 63 mm[Hg] Reginald Aragon MD Work Phone: [facility] 07-30-2024 13:54-0400 Heart rate 81 /min Reginald Aragon MD Work Phone: [facility] 07-30-2024 13:54-0400 Respiratory rate 18 /min Reginald Aragon MD Work Phone: [facility] 07-30-2024 13:54-0400 SaO2% (BldA) [Mass fraction] 94 % Reginald Aragon MD Work Phone: [facility] 07-30-2024 13:54-0400 Systolic blood pressure 96 mm[Hg] Reginald Aragon MD Work Phone: [facility] 03-14-2023 12:45-0400 Body height 167.7 cm Reginald Aragon MD Work Phone: [facility] 03-14-2023 12:45-0400 Body temperature 97.7 [degF] Reginald Aragon MD Work Phone: [facility] 03-14-2023 12:45-0400 Body weight 119.93 kg Reginald Aragon MD Work Phone: [facility] 03-14-2023 12:45-0400 Diastolic blood pressure 63 mm[Hg] Reginald Aragon MD Work Phone: [facility] 03-14-2023 12:45-0400 Heart rate 68 /min Reginald Aragon MD Work Phone: [facility] 03-14-2023 12:45-0400 Respiratory rate 16 /min Reginald Aragon MD Work Phone: [facility] 03-14-2023 12:45-0400 SaO2% (BldA) [Mass fraction] 97 % Reginald Aragon MD Work Phone: [facility] 03-14-2023 12:45-0400 Systolic blood pressure 114 mm[Hg] Reginald Aragon MD Work Phone: [facility] 09-13-2022 12:57-0500 Body height 167.7 cm Samantha Benitez APRN.[employer]PERATOR Work Phone: [facility] 09-13-2022 12:57-0500 Body temperature 97.59 [degF] Samantha Benitez SUPERVISOR [employer] OPERATOR Work Phone: [facility] 09-13-2022 12:57-0500 Body weight 120.47 kg Samantha Benitez APRN.[employer] OPERATOR Work Phone: [facility] 09-13-2022 12:57-0500 Diastolic blood pressure 68 mm[Hg] Samantha Benitez SUPERVISOR [employer] OPERATOR Work Phone: [facility] 12-15-2022 12:57-0500 Heart rate 93 /min Samantha Benitez SUPERVISOR [employer] OPERATOR Work Phone: [facility] 09-13-2022 12:57-0500 Respiratory rate 16 /min Samantha Benitez SUPERVISOR [employer] OPER[employer] Work Phone: [facility] 09-13-2022 12:57-0500 SaO2% (BldA) [Mass fraction] 100 % Samantha Benitez SUPERVISOR [employer] OPERATOR Work Phone: [facility] 09-13-2022 12:57-0500 Systolic blood pressure 120 mm[Hg] Samantha Benitez SUPERVISOR [employer] OPERATOR Work Phone: [facility] 03-14-2022 14:12-0400 Body height 167.7 cm Reginald Aragon MD Work Phone: [facility] 03-14-2022 14:12-0400 Body temperature 97.81 [degF] Reginald Aragon MD Work Phone: [facility] 03-14-2022 14:12-0400 Body weight 120.57 kg Reginald Aragon MD Work Phone: [facility] 03-14-2022 14:12-0400 Diastolic blood pressure 76 mm[Hg] Reginald Aragon MD Work Phone: [facility] 03-14-2022 14:12-0400 Heart rate 98 /min Reginald Aragon MD Work Phone: [facility] 03-14-2022 14:12-0400 Respiratory rate 16 /min Reginald Aragon MD Work Phone: [facility] 03-14-2022 14:12-0400 SaO2% (BldA) [Mass fraction] 95 % Reginald Aragon MD Work Phone: [facility] 03-14-2022 14:12-0400 Systolic blood pressure 114 mm[Hg] Reginald Aragon MD Work Phone: [facility] Encounters Encounter Date Encounter Type Care Provider Facility Start: 03-07-2026 ambulatory LAY OUT FORMER [place] [facility] Facil ity:[facility] Start: 10-06-2025 ambulatory LAY OUT FORMER [place] [facility]y:[facility] Start: 05-06-2025 End: 05-06-2025 Office outpatient new 45 minutes Pema Reynolds MD Work Phone: [facility] Comment on above: Stage 3b chronic kid marshall disease (CKD) ([facility]) (Primary Dx); CKD (chronic kidney disease), stage IV ([facility]) Start: 04-29-2025 End: 04-29-2025 Telephone encounter Scanning Provider External [facility] Start: 04-22-2025 End: 04-22-2025 ambulatory [facility] Start: 04-14-2025 ambulatory Inderjit Ly acility:[facility] Start: 04-07-2025 End: 04-07-2025 Bamboo flowsgenaro Lombardi MD Work Phone: [facility] Start: 04-07-2025 End: 04-07-2025 Bamboo flowsgenaro Lombardi MD Work Phone: [facility] Start: 04-07-2025 End: 04-07-2025 Office outpatient new 30 minutes Jim Lombardi MD Work Phone: [facility] Comment on above: Sensorineural hearin g loss (SNHL), bilateral (Primary Dx) Start: 04-07-2025 End: 04-07-2025 ambulatory JIM LOMBARDI Not Available Start: 04-06-2025 End: 04-06-2025 ambulatory LAY OUT FORMER Oh L Con Facility:[facility] Jose Start: 03-30-2025 End: 03-30-2025 ambulatory [facility] Start: 03-24-2025 End: 03-24-2025 Clinical Support Deann Hoffman [facility] Work Phone: [facility] Comment on above: Sensorineural hearin g loss (SNHL) of both ears (Primary Dx); Tinnitus, bilateral; Impaired auditory discrimination, bilateral Start: 03-24-2025 End: 03-24-2025 Bamboo flowsheet Deann Hoffman CCC-A Work Phone: [facility] Start: 03-24-2025 End: 03-24-2025 Bamboo flowsheet Deann Maganaill CCC-A Work Phone: [facility] Start: 03-04-2025 End: 03-04-2025 ambulatory LAY OUT FORMER Oh L Con Facility:[facility] Jose Start: 02-24-2025 End: 02-24-2025 ambulatory [facility] Start: 10-06-2024 End: 10-06-2024 ambulatory LAY OUT FORMER [facility] L Con [facility] Start: 09-09-2024 End: 09-09-2024 ambulatory [facility] Start: 08-04-2024 End: 08-04-2024 ambulatory LAY OUT FORMER Oh L Con Facility:[facility] Start: 07-30-2024 End: 07-30-2024 Patient encounter procedure Reginald Aragon MD Work Phone: Hematology/Oncology Start: 07-30-2024 End: 07-30-2024 ambulatory Reginald Aragon MD Work Phone: Hematology/Oncology Comment on above: Malignant neoplasm o f overlapping sites of right breast in female, estrogen receptor negative (HCC) (Primary Dx) Start: 06-25-2024 End: 06-25-2024 ambulatory [facility] Start: 06-17-2024 End: 06-17-2024 ambulatory [facility] Start: 05-20-2024 End: 05-20-2024 ambulatory [facility] Start: 05-13-2024 End: 05-13-2024 ambulatory [facility] Start: 05-06-2024 End: 05-06-2024 ambulatory [place] L CON [facility] Start: 05-05-2024 End: 05-05-2024 ambulatory [address]RIAN GIL [facility] Start: 09-12-2023 Telephone encounter Carin Salgado Hematology/Oncology Comment on above: Orders Start: 09-12-2023 End: 09-12-2023 ambulatory REGINALD ARAGON Facility:[facility] Start: 06-07-2023 Telephone encounter Orly Zhao [...] Start: 09-13-2022 End: 09-13-2022 ambulatory Samantha Benitez APRN.[employer] Work Phone: Hematology/Oncology Comment on above: Malignant neoplasm o f overlapping sites of right breast in female, estrogen receptor negative (HCC) (Primary Dx); Iron deficiency anemia secondary to inadequate dietary iron intake Start: 09-13-2022 End: 09-13-2022 Patient encounter procedure Samantha Benitez APRN.[employer] OPERATOR Work Phone: [facility] Start: 08-14-2022 End: 08-15-[address] HCARLES LANDEROS Facility:[facility] Start: 07-23-2022 End: 07-23-2022 ambulatory MITCHEL WARREN Facility:[facility] Start: 07-16-2022 Refill Samantha Benitez APRN.[employer] OPERATOR Work Phone: Hematology/Oncology Comment on above: [...] encounter procedure Reginald Aragon MD Work Phone: [facility] Start: 10-19-[address] CHARLES LANDEROS Facilit y:[facility] Start: 08-17-2021 End: 08-17-2021 Subsequent hospital visit by physician Arrival Time Radiology Work Phone: Radiology [facility] Comment on above: Lung nodules [R91.8] Start: 02-01-2019 End: 02-02-2019 Evaluation and management of inpatient ARACELI SANDHU Facility:[facility] Start: 01-16-2019 End: 01-17-2019 Patient encounter procedure EHAB A LILLIANLUIS ARMANDOROBERT Facility:[facility] Start: 12-03-2018 Patient encounter procedure Facility:[facility] Procedures Date Procedure Procedure Detail Performing Clinician Start: 03-24-2025 AUDITORY FUNCTION TESTS Deann Hoffman CCC-A Work Phone: Start: 04-13-2022 Lipid 1996 panel - S migdalia or Plasma Carin Ramos RN Start: 08-17-2021 Ct thorax w/contrast material Reginald Aragon MD Work Phone: Start: 05-27-2020 Adult depression screening assessment Reginald Aragon MD Work Phone: Plan of Treatment Date Care Activity Detail Author Start: 07-30-2027 Diabetes Screening Diabetes Screenin [facility] Start: 04-13-2027 Lipid panel Lipid Screening [facility] Start: 04-13-2027 LIPID SCREEN LIPID SCREEN [facility] Start: 12-15-2026 LIPID SCREEN LIPID SCREEN [facility] Start: 09-12-2026 Diabetes Screening Diabetes Screenin g [facility] Start: 05-06-2026 Tobacco Screening Tobacco Screening [facility] Start: 03-14-2026 DIABETES SCREEN DI[facility]ETES SCREEN [facility] Start: 09-13-2025 DIABETES SCREEN DIABETES SCREEN [facility] Start: 08-05-2025 End: 08-05-2025 Patient encounter procedure 08/05/2025 2:40 PM EST Office Visit PHN [facility] [address] [place] [id number] Emiliana Navarro, SUPERVISOR [employer] OPERATOR [address] [facility] [place], [place] [id number] PHN [facility] Start: 05-31-2025 Influenza vaccination N [facility] Start: 05-13-2025 End: 05-06-2026 ODILIA Screen w/ Reflex ODILIA Screen w/ Reflex Lab Routine Stage 3b chronic kidney disease (CKD) ([facility]) Expected: 05/13/2025 (Approximate), Expires: 05/06/2026 PHN [facility] Work Phone: Comment on above: Expected: 05/13/2025 (Approximate), Expires: 05/06/2026 Start: 05-13-2025 End: 05-06-2026 Basic metabolic 2000 panel - Serum or Plasma Basic Metabolic Panel Lab Routine Stage 3b chronic kidney disease (CKD) ([facility]) Expected: 05/13/2025 (Approximate), Expires: 05/06/2026 [facility] Comment on above: Expected: 05/13/2025 (Approximate), Expires: 05/06/2026 Start: 05-13-2025 End: 05-06-2026 Complement profile (C3 AND C4) Complement profile (C3 AND C4) Lab Routine Stage 3b chronic kidney disease (CKD) ([facility]) Expected: 05/13/2025 (Approximate), Expires: 05/06/2026 [facility] [employer] [facility] Comment on above: Expected: 05/13/2025 (Approximate), Expires: 05/06/2026 Start: 05-13-2025 End: 05-06-2026 Free light chains Free light chains Lab Routine Stage 3b chronic kidney disease (CKD) ([facility]) Expected: 05/13/2025 (Approximate), Expires: 05/06/2026 [employer] Comment on above: Expected: 05/13/2025 (Approximate), Expires: 05/06/2026 Start: 05-13-2025 End: 05-06-2026 Glomerular basement membrane IgG AB Glomerular basement membrane IgG AB Lab Routine Stage 3b chronic kidney disease (CKD) ([facility]) Expected: 05/13/2025 (Approximate), Expires: 05/06/2026 [facility] Comment on above: Expected: 05/13/2025 (Approximate), Expires: 05/06/2026 Start: 05-13-2025 End: 05-06-2026 Myeloperoxidase AB Myeloperoxidase AB Lab Routine Stage 3b chronic kidney disease (CKD) ([facility]) Expected: 05/13/2025 (Approximate), Expires: 05/06/2026 [facility] Comment on above: Expected: 05/13/2025 (Approximate), Expires: 05/06/2026 Start: 05-13-2025 End: 05-06-2026 Protein creat ratio Protein creat ratio Lab Routine Stage 3b chronic kidney disease (CKD) ([facility]) Expected: 05/13/2025 (Approximate), Expires: 05/06/2026 [facility] Comment on above: Expected: 05/13/2025 (Approximate), Expires: 05/06/2026 Start: 05-13-2025 End: 05-06-2026 Protein electrophoresis, serum Protein electrophoresis, serum Lab Routine Stage 3b chronic kidney disease (CKD) ([facility]) Expected: 05/13/2025 (Approximate), Expires: 05/06/2026 [employer] Comment on above: Expected: 05/13/2025 (Approximate), Expires: 05/06/2026 Start: 05-13-2025 End: 05-06-2026 Rheumatoid factor Rheumatoid factor Lab Routine Stage 3b chronic kidney disease (CKD) ([facility]) Expected: 05/13/2025 (Approximate), Expires: 05/06/2026 [employer] Comment on above: Expected: 05/13/2025 (Approximate), Expires: 05/06/2026 Start: 04-07-2025 End: 04-07-2025 Patient encounter procedure 04/07/2025 2:00 PM EDT Office Visit [facility] [address] [place] [address] Jim Lombardi MD [address] [place] [address] Arrived [facility] Comment on above: Arrived Start: 03-31-2025 End: 03-31-2025 Patient encounter procedure 03/31/2025 1:10 PM EDT Office Visit [facility] [address] [place] [address] Jim Lombardi MD [address] [place] [address] [facility] Start: 03-24-2025 End: 03-24-2025 Clinical Support 03/24/2025 2:30 PM EDT Clinical Support [facility] [address] [place] [address] Deann Hoffman, [facility] [address] [place] [address] Arrived [facility] Comment on above: Arrived Start: 03-14-2025 DIABETES SCREEN DIABETES SCREEN [facility] Start: 12-22-2024 COVID-19 Vaccine (7 - Mixed Product risk season) COVID-19 Vaccine (7 - Mixed Product risk season) [facility] Start: 08-17-2024 DIABETES SCREEN DIABETES SCREEN [facility] Start: 07-30-2024 End: 07-30-2024 Follow-up encounter 07/30/2024 2:15 PM EDT Visit (SP) Office Hematology/Oncology [address] [place] [address] [place] [address] Reginald Aragon MD [address] [place] [address] [place] [address] 10 month follow up lab / left detailed message about moving this appt from -17. Asked her to call and confirm new day and time. Mailed new reminder to her home. Hematology/Oncology Comment on above: 10 month follow up l ab / left detailed message about moving this appt from -17. Asked her to call and confirm new day and time. Mailed new reminder to her home. Start: 07-30-2024 End: 10-29-2024 Cancer Ag 27-29 [Units/volume] in Serum or Plasma [facility] Work Phone: Comment on above: Expected: 07/30/2024 , Expires: 10/29/2024 Start: 07-30-2024 End: 07-30-2024 Patient encounter procedure 07/30/2024 2:00 PM EDT Office Visit [facility] [address] [place] [address] [place] [address] 10 month follow up lab / left detailed message about moving this appt from -17. Asked her to call and confirm new day and time. Mailed new reminder to her home. [facility] Comment on above: 10 month follow up l ab / left detailed message about moving this appt from -17. Asked her to call and confirm new day and time. Mailed new reminder to her home. Start: 05-31-2024 Covid-19 Vaccine ( season) Covid-19 Vaccine ( season) [facility] Start: 05-31-2024 Influenza vaccination Influenza Vacc ine (#1) [facility] Start: 09-30-2023 Advance Directive Discussion Advance Directive Discussion [facility] Start: 05-31-2023 Influenza vaccination INFLUENZA (#1) [facility] Start: 03-14-2023 End: 05-14-2023 Cancer Ag 27-29 [Units/volume] in Serum or Plasma CA 27.29 BLOOD Lab Routine Malignant neoplasm of overlapping sites of right breast in female, estrogen receptor negative (HCC) Iron deficiency anemia secondary to inadequate dietary iron intake Expected: 03/14/2023, Expires: 05/14/2023 [facility] Work Phone: Comment on above: Expected: 03/14/2023 , Expires: 05/14/2023 Start: 03-14-2023 End: 05-14-2023 CBC W Auto Differential panel - Blood CBC + DIFF Lab Routine Malignant neoplasm of overlapping sites of right breast in female, estrogen receptor negative (HCC) Iron deficiency anemia secondary to inadequate dietary iron intake Expected: 03/14/2023, Expires: 05/14/2023 [facility] Work Phone: Comment on above: Expected: 03/14/2023 , Expires: 05/14/2023 Start: 03-14-2023 End: 05-14-2023 Comprehensive metabolic 2000 panel - Serum or Plasma COMP METABOLIC PANEL Lab Routine Malignant neoplasm of overlapping sites of right breast in female, estrogen receptor negative (HCC) Iron deficiency anemia secondary to inadequate dietary iron intake Expected: 03/14/2023, Expires: 05/14/2023 [facility] Work Phone: Comment on above: Expected: 03/14/2023 , Expires: 05/14/2023 Start: 01-04-2023 RSV Vaccine (1 - 1-d ose 75+ series) RSV Vaccine (1 - 1-dose 75+ series) [facility] Start: 09-30-2022 ADVANCE DIRECTIVE DISCUSSION ADVANCE DIRECTIVE DISCUSSION [facility] Start: 09-30-2022 DEPRESSION ASSESSMENT DEPRESSION ASS ESSMENT [facility] Start: 09-13-2022 End: 11-13-2022 Cancer Ag 27-29 [Units/volume] in Serum or Plasma [facility] Work Phone: Comment on above: Expected: 09/13/2022 , Expires: 11/13/2022 Start: 07-03-2022 COVID-19 VACCINE (5 - Booster for Moderna series) COVID-19 VACCINE (5 - Booster for Moderna series) [facility] Start: 07-03-2022 COVID-19 VACCINE (5 - Moderna series) COVID-19 VACCINE (5 - Moderna series) [facility] Start: 05-31-2022 Influenza vaccination C [facility] Start: 09-30-2021 ADVANCE DIRECTIVE DISCUSSION ADVANCE DIRECTIVE DISCUSSION [facility] Start: 09-30-2021 DEPRESSION ASSESSMENT DEPRESSION ASS ESSMENT [facility] Start: 05-27-2021 Adult depression screening assessment DEPRESSION SCREENING [facility] Start: 12-04-2015 Administration of varicella zoster vaccine Zoster (Shingles) Vaccine (1 of 2) [facility] Start: 12-04-2015 SHINGRIX VACCINE (1 of 2) SHINGRIX VACCINE (1 of 2) [facility] Start: 12-04-2015 SHINGRIX VACCINE (2 of 3) SHINGRIX VACCINE (2 of 3) [facility] Start: 01-04-2013 BONE DENSITY BONE DENSITY [facility] Start: 01-04-2013 Fall Risk Screening Fall Risk Screen ing [facility] Start: 01-04-2013 Screening for osteoporosis Bone Density Screening [facility] Start: 2008 RSV Vaccine (1 - 1-d ose 60+ series) RSV Vaccine (1 - 1-dose 60+ series) [facility] Start: 01-04-1993 COLOGUARD (FIT-DNA) COLOGUARD (FIT-D NA) [facility] Start: 01-04-1993 Colonoscopy COLONOSCOPY [facility] Start: 01-04-1993 COLORECTAL CANCER SCREENING COLORECTAL CANCER SCREENING [facility] Start: 01-04-[address] COLONOGRAPHY [facility] Start: 01-04-1993 FECAL OCCULT BLOOD FECAL OCCULT BLOO D [facility] Start: 01-04-1993 Screening for malign ant neoplasm of colon [facility] Start: 01-04-1993 SIGMOIDOSCOPY SIGMOIDOSCOPY [facility] Start: 1988 Mammography MAMMOGRAM [facility] Start: 01-04-1967 DTaP,Tdap and Td Vaccines (1 - Tdap) DTaP,Tdap and Td Vaccines (1 - Tdap) [facility] Start: 01-04-1967 Urine microalbumin profile [facility] Start: 01-04-1966 Anxiety Screening Anxiety Screening [facility] Start: 01-04-1966 Depression Screening Depression Scre ening [facility] Start: 01-04-1966 HEPATITIS C SCREENING HEPATITIS C [facility] Start: 01-04-1966 Hepatitis C screening Hepatitis C [facility] Start: 1960 Depression Screening Depression Scre ening [facility] Start: 1960 Tobacco Screening Tobacco Screening [facility] Start: 04-07-1953 COVID-19 VACCINE (#1) COVID-19 VACCI NE (#1) [facility] Start: 1948 COVID-19 VACCINE (#1) COVID-19 VACCI NE (#1) [facility] End: 05-06-2026 Cytoplasmic Neutrophilic Ab (ANCA), S Cytoplasmic Neutrophilic Ab (ANCA), S Lab Routine Stage 3b [facility] Occurrences starting 05/06/2025 until 05/06/2026 [facility] Comment on above: 1 Occurrences starti ng 05/06/2025 until 05/06/2026 End: 04-13-2023 Diagnostic mammography computer-aided detcj uni [facility] Radiology Routine Malignant neoplasm of overlapping sites of right breast in female, estrogen receptor negative (HCC) 1 Occurrences starting 03/14/2022 until 04/13/2023 [facility] Work Phone: Comment on above: 1 Occurrences starti ng 03/14/2022 until 04/13/2023 End: 07-06-2024 [facility] LEFT [facility] LEFT Radiology Routine Malignant neoplasm of overlapping sites of right breast in female, estrogen receptor negative (HCC) 1 Occurrences starting 06/07/2023 until 07/06/2024 [facility] Work Phone: Comment on above: 1 Occurrences starti ng 06/07/2023 until 07/06/2024 End: 05-06-2026 Serum Immunofixation Serum Immunofixation Lab Routine Stage 3b chronic kidney disease (CKD) ([facility]) 1 Occurrences starting 05/06/2025 until 05/06/2026 [facility] Comment on above: 1 Occurrences starti ng 05/06/2025 until 05/06/2026 End: 05-06-2026 Urinalysis Urinalysis Lab Routine Stage 3b chronic kidney disease (CKD) ([facility]) 1 Occurrences starting 05/06/2025 until 05/06/2026 [facility] Comment on above: 1 Occurrences starti ng 05/06/2025 until 05/06/2026 [facility] Immunizations Immunization Date Immunization Notes Care Provider Franki abbasi 06-24-2024 COVID-19 vaccine, ag e 12+ yr (MODERNA) Reginald Aragon MD Work Phone: [facility] 06-24-2024 influenza, high dose seasonal, preservative-free Reginald Aragon MD Work Phone: [facility] 06-24-2024 pneumococcal conjuga te (PCV20) vaccine, 20 valent (PREVNAR 20) Reginald Aragon MD Work Phone: [facility] 06-24-2024 respiratory syncytia l virus (RSV) vaccine, adjuvanted (AREXVY) Reginald Aragon MD Work Phone: [facility] 06-24-2024 influenza virus vacc ine, unspecified formulation Jim Lombardi MD Work Phone: [facility] 07-25-2023 COVID-19 vaccine, ag e 12+ yr (MODERNA) Reginald Aragon MD Work Phone: [facility] 07-25-2023 influenza (HD-IIV4) vaccine, age 65+ yr, high dose, quadrivalent, PF (FLUZONE HIGH-DOSE) Reginald Aragon MD Work Phone: [facility] 07-25-2023 influenza virus vacc ine, unspecified formulation [facility] Work Phone: [facility] 07-11-2022 influenza (HD-IIV4) vaccine, age 65+ yr, high dose, quadrivalent, PF (FLUZONE HIGH-DOSE) Reginald Aragon MD Work Phone: [facility] 05-08-2022 SARS-COV-2 (COVID-19 ) Vaccine, Unspecified Scanning External [facility] 08-07-2021 influenza (HD-IIV4) vaccine, age 65+ yr, high dose, quadrivalent, PF (FLUZONE HIGH-DOSE) Reginald Aragon MD Work Phone: [facility] 08-07-2021 SARS-COV-2 (COVID-19 ) Vaccine, Unspecified Scanning External [facility] 11-24-2020 COVID-19 original vaccine, full dose, monovalent (MODERNA) Reginald Aragon MD Work Phone: [facility] 10-27-2020 COVID-19 original vaccine, full dose, monovalent (MODERNA) Reginald Aragon MD Work Phone: [facility] 07-07-2020 influenza (aIIV4) vaccine, age 65+ yr, quadrivalent, PF (FLUAD QUAD) Reginald Aragon MD Work Phone: [facility] 07-21-2019 influenza, high dose seasonal, preservative-free Reginald Aragon MD Work Phone: [facility] 07-21-2019 pneumococcal polysaccharide vaccine, 23 valent Reginald Aragon MD Work Phone: [facility] 06-26-2018 influenza, high dose seasonal, preservative-free Reginald Aragon MD Work Phone: [facility] 06-26-2018 pneumococcal conjuga te vaccine, 13 valent Reginald Aragon MD Work Phone: [facility] 07-17-2017 influenza, high dose seasonal, preservative-free Reginald Aragon MD Work Phone: [facility] 07-01-2017 influenza, injectabl e, quadrivalent, preservative free Reginald Aragon MD Work Phone: [facility] 10-09-2015 zoster vaccine, live Reginald roche MD Work Phone: [facility] 10-09-2015 zoster vaccine, unspecified formulation [facility] 07-11-2015 influenza, seasonal, injectable, preservative free Reginald Aragon MD Work Phone: [facility] 07-11-2015 pneumococcal conjuga te vaccine, 13 valent Reginald Aragon MD Work Phone: [facility] Payers Date Payer Category Payer Self-pay 2018 [place] [id number] 2018-Present [phone] [address] [place] [address] Medicaid [id number] 2017 Medicaid [id number] 1988 Medicare MEDICARE MEDICAR E A AND B [id number] 1988-Present [phone] [place] [address] Medicare [id number] 1988 Medicare [id number] 1959 Medicaid [id number] 1959 Medicare [id number] 1959 Self-pay [id number] 1948 Unknown [id number] 1948 Unknown [id number] [id number] 1948 Unknown [id number] [id number] 1948 Unknown [id number] [id number] 1948 Unknown [id number] 2.16840.1.284523.3.579.2.593 1948 Unknown [id number] [id number] 1948 Unknown [id number] 2.16.840.1.189957.3.579.2.593 1948 Unknown [id number] 2.16840.1.175004.3.579.2.727 1948 Unknown [id number] 2.16.840.1.442307.3.579.2.727 1948 Unknown [id number] 2.16.840.1.958133.3.579.2.727 1948 Unknown [id number] 2.16.840.1.193783.3.579.2.727 1948 Unknown [id number] 2.16.840.1.353045.3.579.2.727 1948 Unknown [id number] 2.16.840.1.901871.3.579.2.727 1948 Unknown [id number] 2.16.840.1.477551.3.579.2.1259 1948 Unknown [id number] 2.16.840.1.491967.3.579.2.1259 1948 Unknown [id number] 2.16.840.1.202344.3.579.2.1286 1948 Unknown [id number] [id number]86 1948 Unknown [id number] [id number]86 1948 Unknown [id number] [id number] Unknown [id number] Social History Date Type Detail Facility Start: 03-18-2019 End: 05-06-2025 Tobacco smoking status PRIS Never smoked tobacco [facility] Start: 03-18-2019 End: 05-06-2025 Tobacco use and exposure Smokeless tobacco non-user [facility] Start: 03-14-2022 End: 05-06-2025 Alcohol intake Lifetime non-drinker (finding) [facility] Start: 01-21-2020 History SDOH Alcohol Frequency 1 [facility] Start: 1950 Sex Assigned At Not on file C [facility] Start: 07-18-2021 End: 03-14-2022 Exposure to SARS-CoV-2 (event) Not sure [facility] Start: 01-21-2020 End: 11-10-2020 History of Social function [facility] Start: 01-21-2020 End: 11-10-2020 Alcohol Use Disorder Identification Test - Consumption [AUDIT-C] [facility] How often to you hav e a drink containing alcohol? Never [facility] Average Number of Drinks Not on file [facility] Start: 05-05-2015 Sex Female (finding) [facility] NEGATED: Highlighted rowStart: NINF History of tobacco use Passive smoker [facility] Medical Equipment Procedure Code Equipment Code Equipment Origin al Text Equipment Identifier Dates Lens Iol Ultrase rt 23.0d - [id number] - [id number] Start: 06-28-2022 Lens Iol Ultrase rt 23.5d - [id number] - [id number] Start: 11-01-2022 Clinical Notes 08-17-2021 to 05-06-2025 Pema Reynolds MD - 05/06/2025 8:00 AM EDTTelephone Encounter - Gabriella Candelario - 04/29/2025 4:12 PM EDTTelephone Encounter - Gabriella Candelario - 04/29/2025 4:12 PM EDT Note Date & Type Note Facility 05-06-2025 History of Present illness Narrative Images from the original note were not included. PCP: PAULA GRIGSBY Date of Service: 05/06/25 Reason for Referral: Stage IIIB chronic kidney disease Referring Physician: Oh Kaufman APRN-CNP History of Present Illness Kaylie Salomon is a 75 y.o. female, who was referred to us for evaluation of stage IIIB chronic kidney disease. Laboratories of July 30, 2024 showed a creatinine of 1.41 mg/dL.More recent laboratories of April 20, 2025 show a creatinine of 2.12 the sodium was 142 potassium 4.9 chloride 102 total CO2 31.5. The patient is on the angiotensin receptor amber losartan 100 mg daily and the sodium-glucose cotransporter-2 inhibitor Farxiga both of which will provide renal protection and protein sparing. The patient is accompanied by her caregiver. She is awake alert. She denies issues with lower extremity edema or dyspnea. Problem List Stage IIIB chronic kidney disease Hypertension Obesity Persistent Atrial fibrillation History of cataract extraction Mental developmental delay Depression History of breast cancer with radiation therapy in 2018 Type 1 diabetes mellitus Hypovitaminosis D Primary hypertension History of iron deficiency anemia Preserved left ventricular systolic function ejection fraction 55-60% cardiac echo 03/17/2025. This showed uzqkvgfz-af-ygyqqu biatrial dilatation moderate tricuspid regurgitation and moderately elevated right-sided filling pressures Atherosclerotic coronary artery disease status post cardiac catheterization December 2018 which showed nonobstructive coronary. Artery disease Surgical, Family & Social History Surgical History: Past Surgical History: Procedure Laterality Date BREAST BIOPSY CARDIAC CATHETERIZATION EXTRACTION CATARACT INTRAOCULAR LENS Right 11/01/2022 Performed by Rosa Elena Lewis MD at [facility] EXTRACTION CATARACT INTRAOCULAR LENS Left 06/28/2022 Performed by Rosa Elena Lewis MD at [facility] MASTECTOMY Right Social History: Social History Socioeconomic History Marital status: Single Spouse name: Not on file Number of children: Not on file Years of education: Not on file Highest education level: Not on file Occupational History Not on file Tobacco Use Smoking status: Never Smokeless tobacco: Never Vaping Use Vaping status: Never Used Substance and Sexual Activity Alcohol use: Never Drug use: Not on file Sexual activity: Never Other Topics Concern Not on file Social History Narrative Not on file Social Drivers of Health Financial Resource Strain: Not on file Food Insecurity: Not on file Transportation Needs: Not on file Physical Activity: Not on file Stress: Not on file Social Connections: Not on file Interpersonal Safety: Unknown (11/21/2023) Received from [facility] Safety & Environment Fear of Current or Ex-Partner: Not on file Emotionally Abused: Not on file Physically Abused: Not on file Sexually Abused: Not on file Physically or Sexually Abused: Not on file Housing Instability: Not on file Family History: Family History Problem Relation Age of Onset Cancer Mother Cancer Father Cancer Sister Lung cancer Sister Cancer Brother Prostate cancer Brother Allergies & Medications Allergies: Allergies Allergen Reactions Peanut Anaphylaxis Bacitracin Bacitracin-Polymyxin B Clarithromycin Other (See Comments) Conjugated Estrogens Estrogens, Conjugated Flavoring Agent Other (See Comments) Other Reaction(s): Unknown Neomycin Sulfate Paclitaxel Other (See Comments) Numbness,tingling and elevated blood pressure Pineapple Polymyxin B Shrimp All seafood Sulfa (Sulfonamide Antibiotics) Other (See Comments) Xounzhmd-Siluwlkfsp-Reqqouqpd Rash Penicillins Rash Current Meds: Current Outpatient Medications Medication Sig Dispense Refill acetaminophen (TYLENOL) 500 mg tablet Take 2 tablets (1,000 mg total) by mouth every 6 (six) hours as needed for pain. albuterol (PROVENTIL HFA;VENTOLIN HFA) 90 mcg/actuation inhaler Inhale 2 puffs every 6 (six) hours as needed for wheezing. apixaban (ELIQUIS) 5 mg tablet Take 1 tablet (5 mg total) by mouth in the morning and 1 tablet (5 mg total) before bedtime. atorvastatin (LIPITOR) 40 mg tablet Take 1 tablet (40 mg total) by mouth in the morning. benralizumab (FASENRA PEN) 30 mg/mL auto-injector 1 mL (30 mg total) every 60 (sixty) days. cholecalciferol (VITAMIN D3) 1,000 units tablet Take 2 tablets (2,000 Units total) by mouth in the morning. dapagliflozin (FARXIGA) 5 mg tablet 1 tablet (5 mg total) in the morning. fluticasone propionate (FLONASE) 50 mcg/actuation nasal spray Administer 2 sprays into each nostril in the morning. furosemide (LASIX) 20 mg tablet Take 4 tablets (80 mg total) by mouth 2 (two) times a day. ipratropium-albuterol (DUO-NEB) 0.5 mg-3 mg(2.5 mg base)/3 mL nebulizer Inhale 3 mL by nebulization as needed for shortness of breath or wheezing. loratadine (CLARITIN) 10 mg tablet Take 1 tablet (10 mg total) by mouth in the morning. losartan (COZAAR) 100 mg tablet Take 1 tablet (100 mg total) by mouth in the morning. metFORMIN (GLUCOPHAGE) 500 mg tablet Take 1 tablet (500 mg total) by mouth daily with breakfast. metoprolol tartrate (LOPRESSOR) 50 mg tablet Take 1 tablet (50 mg total) by mouth in the morning and 1 tablet (50 mg total) before bedtime. montelukast (SINGULAIR) 10 mg tablet Take 1 tablet (10 mg total) by mouth nightly. ondansetron (ZOFRAN) 8 mg tablet Take by mouth every 8 (eight) hours as needed for nausea or vomiting. pantoprazole (PROTONIX) 40 mg EC tablet Take 1 tablet (40 mg total) by mouth in the morning. potassium chloride (KLOR-CON M 20) 20 MEQ CR tablet Take 1 tablet (20 mEq total) by mouth in the morning and 1 tablet (20 mEq total) before bedtime. REXULTI 2 mg tablet Take 1 tablet (2 mg total) by mouth in the morning. sertraline (ZOLOFT) 50 mg tablet Take 1 tablet (50 mg total) by mouth in the morning. spironolactone (ALDACTONE) 25 mg tablet Take 1 tablet (25 mg total) by mouth in the morning. BREO ELLIPTA 100-25 mcg/dose blister with device Inhale 1 puff in the morning. fluticasone propion-salmeterol (ADVAIR) 500-50 mcg/dose DISKUS Inhale 1 puff in the morning and 1 puff before bedtime. (Patient not taking: Reported on 05/06/2025) multivit-min/iron/folic/lutein (MULTIVITAMIN WOMEN 50 PLUS ORAL) Take 1 tablet by mouth daily. (Patient not taking: Reported on 05/06/2025) predniSONE (DELTASONE) 20 mg tablet Take 1 tablet (20 mg total) by mouth in the morning. (Patient not taking: Reported on 05/06/2025) prochlorperazine (COMPAZINE) 10 mg tablet Take 1 tablet (10 mg total) by mouth every 6 (six) hours as needed for nausea or vomiting. (Patient not taking: Reported on 05/06/2025) tiotropium bromide 1.25 mcg/actuation mist Inhale 2 puffs daily. (Patient not taking: Reported on 05/06/2025) No current facility-administered medications for this visit. Review of Systems Review of Systems Constitutional: Negative for chills, diaphoresis, fatigue and fever. HENT: Negative for congestion, ear discharge, ear pain, facial swelling and hearing loss. Eyes: Negative for pain, discharge, redness and itching. Respiratory: Negative for cough, shortness of breath and wheezing. Cardiovascular: Positive for leg swelling. Negative for chest pain and palpitations. Gastrointestinal: Negative for abdominal pain, constipation, diarrhea, nausea and vomiting. Endocrine: Negative for polydipsia, polyphagia and polyuria. Genitourinary: Negative for decreased urine volume, difficulty urinating, dysuria, enuresis, flank pain, frequency, hematuria and urgency. Musculoskeletal: Negative for arthralgias, joint swelling and myalgias. Skin: Negative for rash and wound. Neurological: Positive for weakness. Negative for dizziness, tremors, light-headedness and numbness. Hematological: Negative for adenopathy. Bruises/bleeds easily. Physical Exam Vital Signs: Vitals: 05/06/25 0805 05/06/25 0810 BP: 112/78 118/78 BP Site: Right Arm Right Arm BP Postition: Sitting Standing BP CUFF SIZE: L (13-17 inches) L (13-17 inches) Pulse: 75 75 Weight: 115.6 kg (254 lb 12.8 oz) Height: 167.6 cm (5' 6 ) BMI: Body mass index is 41.13 kg/m . General appearance: alert in no apparent distress. Psychiatric: Oriented to place, time and person HEENT: atraumatic, supple, moist oral mucosa, no JVD Cardiovascular: S1 S2 irregular Respiratory: No respiratory distress with no use of accessory muscles. Clear to auscultation bilaterally with no wheezes or crackles Abdomen: soft, no tenderness, no guarding, positive bowel sounds and no hepato or splenomegaly Vascular: adequate pulses and no carotid bruits. Musculoskeletal: no joint swelling or tenderness. Neurologic: No focal deficit in upper or lower extremities Lymphatic: no cervical or axillary lymphadenopathy. Laboratory Studies Chemistry: Lab Results Component Value Date SODIUM 142 05/20/2024 SODIUM 142 09/11/2023 SODIUM 143 11/30/2022 SODIUM 143 06/07/2022 SODIUM 142 04/13/2022 K 4.1 05/20/2024 K 4.0 09/11/2023 K 4.2 11/30/2022 K 4.4 06/07/2022 K 4.0 04/13/2022 CL 96 (L) 05/20/2024 CL 99 09/11/2023 CL 103 11/30/2022 CL 102 06/07/2022 CL 102 04/13/2022 CO2 36 (H) 05/20/2024 CO2 34 (H) 09/11/2023 CO2 30 11/30/2022 CO2 30 06/07/2022 CO2 29 04/13/2022 ANIONGAP 10 05/20/2024 ANIONGAP 9 09/11/2023 ANIONGAP 10 11/30/2022 ANIONGAP 11 06/07/2022 ANIONGAP 11 04/13/2022 BUN 30 (H) 05/20/2024 BUN 30 (H) 09/11/2023 BUN 27 11/30/2022 BUN 31 (H) 06/07/2022 BUN 23 04/13/2022 CREATININE 1.35 (H) 05/20/2024 CREATININE 0.99 09/11/2023 CREATININE 0.85 11/30/2022 CREATININE 0.99 06/07/2022 CREATININE 0.89 04/13/2022 EGFR 41 (L) 05/20/2024 EGFR 59 (L) 09/11/2023 EGFR 72 11/30/2022 EGFR 60 06/07/2022 CALCIUM 9.5 05/20/2024 CALCIUM 9.4 09/11/2023 CALCIUM 9.5 11/30/2022 CALCIUM 9.1 06/07/2022 CALCIUM 9.2 04/13/2022 MG 2.0 10/24/2023 MG 1.6 (L) 05/24/2023 Lab Results Component Value Date TOTALPROTEI 7.1 11/30/2022 TOTALPROTEI 7.1 11/30/2022 ALBUMIN 4.2 11/30/2022 ALBUMIN 4.2 11/30/2022 AST 15 11/30/2022 AST 15 11/30/2022 ALT 13 11/30/2022 ALT 13 11/30/2022 BILIRUBIN Negative 12/26/2022 BILIRUBIN 0.8 11/30/2022 BILIRUBIN 0.8 11/30/2022 BILIRUBIN 0.0 11/30/2022 ALKPHOS 70 11/30/2022 ALKPHOS 101 04/13/2022 Hematology: Lab Results Component Value Date WBC 7.8 10/24/2023 WBC 8.2 05/24/2023 HGB 12.1 10/24/2023 HGB 12.0 05/24/2023 HCT 37.3 10/24/2023 HCT 37.2 05/24/2023 PLT 286 10/24/2023 PLT 256 05/24/2023 Anemia Studies: Lab Results Component Value Date [id number] 405 05/10/2023 FOLATE >25.0 05/10/2023 Mineral and Bone Labs: Lab Results Component Value Date CALCIUM 9.5 05/20/2024 CALCIUM 9.4 09/11/2023 VITD25 51.8 05/02/2018 Urine Studies: Lab Results Component Value Date COLOR YELLOW 12/26/2022 TURBIDITY CLEAR 12/26/2022 SPECIFICGRA 1.003 12/26/2022 NITRITE Negative 12/26/2022 PHURINE 6.0 12/26/2022 LEUKOCYTE Negative 12/26/2022 PROTEIN Negative 12/26/2022 KETONES Negative 12/26/2022 UROBILINOGEN <1.1 12/26/2022 BLOODHGB Negative 12/26/2022 Lab Results Component Value Date UPROCRTRAT 0.32 (H) 05/06/2024 MICROALBUR 0.8 05/06/2024 Immunology Profile No results found for: PROTELECTR , SEDRATE , CRP , RF , ANASCREEN , ANTIDSDNA , C3 , C4 , ANCA , MYELOP , PROTEINASE3 , ANTIGLOMERU No results found for: HAV , HEPAIGM , HEPBIGM , HEPBCAB , HBEAG , HEPCAB Imaging Echocardiogram: No results found. IMPRESSION 1. Stage IIIB chronic kidney disease: The differential includes: 1. Diabetic nephropathy. 2. Hypertensive nephrosclerosis 3. Renovascular disease 4. Rule out glomerulonephritis or vasculitis. PLAN 1. Target hemoglobin A1c to 7% or less. 2. Target systolic blood pressure to less than or equal to 130 mmHg. 3. Avoid prolonged use of nonsteroidal anti-inflammatory drugs or proton pump inhibitors. 4. CKD serologies 5. Continue the use of losartan 100 mg daily and Farxiga 5 mg daily each of which will provide renal protection and protein sparing 6. She will return to the office at our next available appointment to review the results of her nephrologic investigations. Further recommendations may be forthcoming depending on the results of these studies. Thank you PAULA GRIGSBY for the referral and opportunity to participate in the care of your patients! Please contact me at [phone] (Office) or [phone] (Answering service) with any questions. PEMA REYNOLDS MD [facility] This note was created with the assistance of a speech-recognition program. Although the intention is to generate a document that actually reflects the content of the visit, no guarantees can be provided that every mistake has been identified and corrected by editing. PEMA REYNOLDS MD,PhD FACP [facility] ANY QUESTIONS FEEL FREE TO CALL: 1. OFFICE [phone] 2. ANSWERING SERVICE: [phone] documented in this encounter [facility] 04-29-2025 Miscellaneous Notes LM to schedule new pt appt. documented in this encounter [facility] 04-29-2025 Telephone encounter Note LM to schedule new pt appt. [facility] 04-22-2025 Note Cardiovascular Medic in[facility] SUBJECTIVE Kaylie Salomon is a 75 y.o. female here for follow-up. HPI PMHx: HFpEF, persistent a.fib, asthma, nonobstructive CAD, GERD, hypertension, MRDD, depression, breast Ca with radiation theray 2017 or 201804/22/2025 Since last seen, her weight is down 22#. She states her BOSCH is stable. One of her caregivers Nedra accompanied her today, staff has noticed that her BOSCH is better but pt refuses to be active. Pt states she walks all the time but her caregiver states this is not true. Denies c/o CP, dyspnea, orthopnea, PND, LE edema, dizziness/LH, palpitations, syncope. 03/30/2025 Pt seen in office 1 month ago by DERICK Oconnor. She was noted to be fluid overloaded on exam. Spironolactone 25mg daily was added. She is up another 4# since last seen 1 month ago. She is up a total of 28# since August,. Her caregiver notes she has a high caloric intake. Caregiver notes pt has some psychosis and hallucinations - she will often talk to people who aren't there. Pt believes she is . Pt tells provider that she does walk daily but caregiver notes that this is false. Patient denies c/o CP, dyspnea, orthopnea, PND, dizziness/LH, palpitations, syncope. She states my heart is good. 09/09/2024 Patient here for 3 mo follow [...] still get dyspneic with walking shorter distances. ----- 06/17/24 Her visiting nurse called on 06/03/24 for c/o increased SOB, weight gain, increased leg swelling. Her lasix was increased to 40mg BID. Her weight is down 8# since last seen. Patient and caregiver note that patient watches her fluid intake. She likes to snack. Patient is alone in the evening. Caregiver notes that a new guardian was appointed. -------- 02/11/24 Patient here for follow up prior [...] respiratory failure (CMS/HCC) Electrolyte and fluid disorder MCFP 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 steroid Morbid obesity (CMS/HCC) Severe persistent asthma (CMS/HCC) Paroxysmal A-fib (CMS/HCC) Altered mental status, unspecified Hallucination Psychosis (CMS/HCC) Allergic conjunctivitis of both eyes Allergic rhinit (more content not included)... [facility] 04-22-2025 Note Patient is here toda y for a follow up labs and chest x-ray. PFT not done due to the machine being down. Patient states she feels good. Patient complains of SOB with walking to far, leg swelling. Patient denies chest pain, palpitations or dizziness. Patient states she doesn't wear the Silver hose due to how tight they are. Review of Systems Cardiovascular: Positive for leg swelling. Respiratory: Positive for shortness of breath. [facility] 04-07-2025 History of Present illness Narrative Subjective Patient ID: Kaylie Salomon is a 75 y.o. female who presents for Hearing Loss (Audio 03/24/25) Pt has a remote h/o REYES use, but lost. Staff at home note increased hearing loss. Audio shows moderate to severe camille downsloping SNHL. Review of Systems All other systems reviewed and are negative. Family History Family history unknown: Yes Active Ambulatory Problems Diagnosis Date Noted Altered mental status, unspecified 02/10/2024 Psychosis ([facility]) 02/10/2024 Hallucination 02/10/2024 Acute hypoxemic respiratory failure ([facility]) 01/09/2019 Acute severe refractory exacerbation of asthma ([facility]) 01/09/2019 Allergic conjunctivitis of both eyes 03/30/2025 Allergic rhinitis due to allergen 03/30/2025 Asthma ([facility]) 03/22/2023 Paroxysmal A-fib ([facility]) 12/08/2021 BMI 38.0-38.9,adult 03/30/2025 Carcinoma of lower-outer quadrant of right breast in female, estrogen receptor negative (HCC) 05/07/2019 Chronic heart failure with preserved ejection fraction (HCC) 06/18/2023 Chronic respiratory failure ([facility]) 09/17/2023 Electrolyte and fluid disorder 09/17/2023 Gastroesophageal reflux disease 01/09/[address] elevation myocardial infarction (STEMI) 01/09/2019 Hypertensive disorder 01/09/2019 Iron deficiency anemia 06/17/2019 Iron deficiency anemia 03/30/2025 intermediate frame tender 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 steroid 09/17/2023 Malignant neoplasm of overlapping sites of breast in female, estrogen receptor negative (HCC) 04/20/2019 Mental disability 03/30/2025 Mild intermittent asthma without complication (HCC) 03/30/2025 Morbid obesity (CMS-HCC) 09/17/2023 Peripheral eosinophilia 03/30/2025 Severe persistent asthma (HCC) 09/17/2023 Sinusitis 03/22/2023 Type 1 diabetes mellitus (HCC) 01/09/2019 Vitamin D deficiency 03/30/2025 Resolved Ambulatory Problems Diagnosis Date Noted No Resolved Ambulatory Problems Past Medical History: Diagnosis Date Breast cancer (HCC) Diabetes (HCC) Past Surgical History: Procedure Laterality Date CT ANGIOGRAM HEART CORONARY 01/07/2024 CT ANGIOGRAM TAVR 01/07/2024 MASTECTOMY Right Allergies Allergen Reactions Clarithromycin Other Reaction(s): Unknown Conjugated Estrogens Flavoring Agent Other Reaction(s): Unknown Neosporin [Bacitracin-Polymyxin B] Paclitaxel Peanut Oil Peanut-Containing Drug Products Penicillins Shellfish-Derived Products Other Reaction(s): Unknown Sulfa Antibiotics Other Reaction(s): Unknown Current Outpatient Medications on File Prior to Visit Medication Sig Dispense Refill albuterol HFA 90 mcg/act inhaler Inhale 1 puff every 4 (four) hours if needed apixaban (Eliquis) 5 MG tablet Take 5 mg by mouth in the morning and 5 mg before bedtime. ARIPiprazole (Abilify) 15 MG tablet Take 15 mg by mouth Daily 1 1/2 tablet atorvastatin (Lipitor) 40 MG tablet Take 40 mg by mouth Daily benralizumab (Fasenra Pen) 30 MG/ML injection Inject 30 mg under the skin Breo Ellipta 100-25 MCG/ACT aerosol powder INHALE 1 PUFF BY MOUTH EVERY DAY. RINSE AFTER USE 90 DAYS cholecalciferol (Vitamin D-3) 50 MCG (2000 UT) capsule Take 2,000 Units by mouth Daily dapagliflozin (Farxiga) 5 MG Take 1 tablet by mouth Daily fluticasone (Flonase) 50 MCG/ACT nasal spray Administer 1 spray into each nostril Daily Fluticasone-Salmeterol (Advair Diskus) 500-50 MCG/ACT aerosol powder Inhale furosemide (Lasix) 20 MG tablet Take 40 mg by mouth Daily ipratropium-albuterol (Duo-Neb) 0.5-2.5 mg/3 mL nebulizer solution Take 3 mL by nebulization every 6 (six) hours loratadine (Claritin) 10 MG tablet Take 1 tablet by mouth Daily losartan (Cozaar) 50 MG tablet Take 100 mg by mouth Daily metFORMIN (Glucophage) 500 MG tablet Take 500 mg by mouth in the morning. Take with meals. montelukast (Singulair) 10 MG tablet Take 1 tablet by mouth Daily ondansetron (Zofran) 8 MG tablet Take 8 mg by mouth Daily pantoprazole (ProtoNix) 40 MG EC tablet Take 40 mg by mouth in the morning. potassium chloride (Klor-Con) 20 MEQ packet 1 (one) time each day at the same time predniSONE (Deltasone) 10 MG tablet Take 10 mg by mouth 3 po qam for 3 days Rexulti 0.5 MG tablet 0.5 mg sertraline (Zoloft) 50 MG tablet Take 1 tablet by mouth Daily tiotropium (Spiriva Respimat) 1.25 MCG/ACT inhaler Inhale 2 puffs Daily metoprolol tartrate (Lopressor) 100 MG tablet Take 100 mg by mouth Daily spironolactone (Aldactone) 25 MG tablet Take 25 mg by mouth Daily No current facility-administered medications on file prior to visit. Objective Last Recorded Vitals Vitals: 04/07/25 1347 BP: 103/66 Pulse: 72 ENT Physical Exam Constitutional Appearance: patient appears well-developed, well-nourished and well-groomed, Head and Face Appearance: head appears normal and face appears atraumatic; Ear Ear Canals: right ear canal normal; left ear canal normal; Tympanic Membranes: right tympanic membrane normal; left tympanic membrane normal; Nose External Nose: nares patent bilaterally; external nose normal; Internal Nose: septum normal; Oral Cavity/Oropharynx Tongue: normal; Oral mucosa: normal; Hard palate: normal; Soft palate: normal; Tonsils: normal; Neck Neck: neck normal; neck palpation normal; Thyroid: thyroid normal; Respiratory Inspection: breathing unlabored; normal breathing rate; Auscultation: breath sounds are clear; Cardiovascular Inspection: extremities are warm and well perfused; no peripheral edema present; Auscultation: regular rate and rhythm; Assessment/Plan Diagnoses and all orders for this visit: Sensorineural hearing loss (SNHL), bilateral Pt would clearly benefit from REYES. Cleared for camille hearing aids. documented in this encounter [facility] 03-30-2025 Note Patient is here toda y for a 6 week follow up with ECHO. Patient's caregiver states the patient is SOB, leg swelling, BOSCH, major fatigue and weight gain. Patient denies chest pain, or dizziness. Review of Systems Constitutional: Positive for malaise/fatigue and weight gain. Cardiovascular: Positive for dyspnea on exertion and leg swelling. Respiratory: Positive for shortness of breath. [facility] 03-30-2025 Note Cardiovascular Medic [facility] SUBJECTIVE Kaylie Salomon is a 75 y.o. female here for follow-up. HPI PMHx: HFpEF, persistent a.fib, asthma, nonobstructive CAD, GERD, hypertension, MRDD, depression, breast Ca with radiation theray 2017 or 201803/30/2025 Pt seen in office 1 month ago by DERICK Oconnor. She was noted to be fluid overloaded on exam. Spironolactone 25mg daily was added. She is up another 4# since last seen 1 month ago. She is up a total of 28# since August,. Her caregiver notes she has a high caloric intake. Caregiver notes pt has some psychosis and hallucinations - she will often talk to people who aren't there. Pt believes she is . Pt tells provider that she does walk daily but caregiver notes that this is false. Patient denies c/o CP, dyspnea, orthopnea, PND, dizziness/LH, palpitations, syncope. She states my heart is good. 09/09/2024 Patient here for 3 mo follow [...] still get dyspneic with walking shorter distances. ----- 06/17/24 Her visiting nurse called on 06/03/24 for c/o increased SOB, weight gain, increased leg swelling. Her lasix was increased to 40mg BID. Her weight is down 8# since last seen. Patient and caregiver note that patient watches her fluid intake. She likes to snack. Patient is alone in the evening. Caregiver notes that a new guardian was appointed. -------- 02/11/24 Patient here for follow up prior [...] respiratory failure (CMS/HCC) Electrolyte and fluid disorder intermediate frame tender 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 steroid Morbid obesity (CMS/HCC) Severe persistent asthma (CMS/HCC) Paroxysmal A-fib (CMS/HCC) Altered mental status, unspecified Hallucination Psychosis (CMS/HCC) Allergic conjunctivitis of both eyes Allergic rhinitis due to allergen BMI 38.0-38.9,adult Mental disability Mild intermittent asthma without complication Peripheral eosinophilia Vitamin D deficiency Past Medical History: Diagnosis Date Abnormal ECG Arrhythmia Asthma Atrial fibrillation (CMS/HCC) Breast cancer ([facility]/HCC) RADIATION 2017 / 2018 Coronary artery disease Depression Diabetes ([facility]) GE (more content not included)... [facility] 03-24-2025 History of Present illness Narrative History: Pt was referred to ENT because of hearing loss. Pt has history of hearing loss and was fit many years ago with hearing aids. Pt no longer has the hearing aids. She reports periodic tinnitus both ears. Pt denies exposure to excessive noise, otalgia, and frequent ear infections. Pt's caregiver reports pt does have auditory hallucinations. Otoscopic Exam: Right Ear: Partially occlusive cerumen Left Ear: Cerumen impaction Pure Tone Audiometry Right Ear: Mild sloping to profound sensorineural hearing loss Left Ear: Mild sloping to profound sensorineural hearing loss Speech Audiometry Right SRT = 45 dB and word discrimination score at 65 dBHL (masked) = 100% Left SRT = 50 dB and word discrimination score at 65 dBHL (masked) = 100% Binaural Word Discrimination Score at 80 dBHL (with visual cues) = 80% Tympanometry Right Ear: Type A tympanogram Left Ear: Type A tympanogram Recommendations: ENT for medical clearance for hearing aids Schedule Hearing Aid Discussion and apply to Medicaid for [place] for hearing aids Pt relies heavily on lip reading to understand speech. It is important to first get pt's attention and then look at pt when communicating. documented in this encounter [facility] 03-04-2025 Note Patient Education Caregiving Fall Prevention in the Home, Adult Falls can cause injuries and can happen to people of all ages. There are many things you can do to make your home safer and to help prevent falls. What actions can I take to prevent falls? General information ??? Use good lighting in all rooms. Make sure to: ? Replace any light bulbs that burn out. ? Turn on the lights in dark areas and use night-lights. ??? Keep items that you use often in [id number] places. Lower the shelves around your home if needed. ??? Move furniture so that there are clear paths around it. ??? Do not use throw rugs or other things on the floor that can make you trip. ??? If any of your floors are uneven, fix them. ??? Add color or contrast paint or tape to clearly well[place] and help you see: ? Grab bars or handrails. ? First and last steps of staircases. ? Where the edge of each step is. ??? If you use a ladder or stepladder: ? Make sure that it is fully opened. Do not climb a closed ladder. ? Make sure the sides of the ladder are locked in place. ? Have someone hold the ladder while you use it. ??? Know where your pets are as you move through your home. What can I do in the bathroom? Keep the floor dry. Clean up any water on the floor right away. ??? Remove soap buildup in the bathtub or shower. Buildup makes bathtubs and showers slippery. ??? Use non-skid mats or decals on the floor of the bathtub or shower. ??? Attach bath mats securely with double-sided, non-slip rug tape. ??? If you need to sit down in the shower, use a non-slip stool. ??? Install grab bars by the toilet and in the bathtub and shower. Do not use towel bars as grab bars. What can I do in the bedroom? Make sure that you have a light by your bed that is easy to reach. ??? Do not use any sheets or blankets on your bed that hang to the floor. ??? Have a firm chair or bench with side arms that you can use for support when you get dressed. What can I do in the kitchen? Clean up any spills right away. ??? If you need to reach something above you, use a step stool with a grab bar. ??? Keep electrical cords out of the way. ??? Do not use floor ukrainian or wax that makes floors slippery. What can I do with my stairs? Do not leave anything on the stairs. ??? Make sure that you have a light switch at the top and the bottom of the stairs. ??? Make sure that there are handrails on both sides of the stairs. Fix handrails that are broken or loose. ??? Install non-slip stair treads on all your stairs if they do not have carpet. ??? Avoid having throw rugs at the top or bottom of the stairs. ??? Choose a carpet that does not hide the edge of the steps on the stairs. Make sure that the carpet is firmly attached to the stairs. Fix carpet that is loose or worn. What can I do on the outside of my home? Use bright outdoor lighting. ??? Fix the edges of walkways and driveways and fix any cracks. Clear paths of anything that can make you trip, such as tools or rocks. ??? Add color or contrast paint or tape to clearly wellington and help you see anything that might make you trip as you walk through a door, such as a raised step or threshold. ??? Trim any bushes or trees on paths to your home. ??? Check to see if handrails are loose or broken and that both sides of all steps have handrails. Install guardrails along the edges of any raised decks and porches. ??? Have leaves, snow, or ice cleared regularly. Use sand, salt, or ice melter on paths if you live where there is ice and snow during the winter. ??? Clean up any spills in your garage right away. This includes grease or oil spills. What other actions can I take? Review your medicines with your doctor. Some medicines can cause dizziness or changes in blood pressure, which increase your risk of falling. ??? Wear shoes that: ? Have a low heel. Do not wear high heels. ? Have rubber bottoms and are closed at the toe. ? Feel good on your feet and fit well. ??? Use tools that help you move around if needed. These include: ? Canes. ? Walkers. ? Scooters. ? Crutches. ??? Ask your doctor what else you can do to help prevent falls. This may include seeing a physical therapist to learn to do exercises to move better and get stronger. Where to find more information ??? Centers for Disease Control and Prevention, [place]: cdc.gov ??? National [place] on Aging: margarette.nih.gov ??? National [place] on Aging: margarette.nih.gov Contact a doctor if: ??? You are afraid of falling at home. ??? You feel weak, drowsy, or dizzy at home. ??? You fall at home. Get help right away if you: ??? Lose consciousness or have trouble moving after a fall. ??? Have a fall that causes a head injury. These symptoms may be an emergency. Get help right away. Call 911. ??? Do not wait to see if the symptoms will go away. ??? Do (more content not included)... [facility] 02-24-2025 Note SUBJECTIVE Reason for Visit: Kaylie Salomon is a 75 y.o. year old female patient being seen for follow-up visit. HPI: Kaylie Salomon is a 75 y.o. year old female with significant medical history of HFpEF, persistent a.fib, asthma, nonobstructive CAD, GERD, hypertension, MRDD, depression, breast Ca with radiation therapy around . 02/24/2025 office visit: Patient was [...] 1 mg by psychiatry for psychosis, and thinks this may be a component of her weight gain but states that it has been very effective so she would like to stay on this medication. The caregiver also reports that the patient's diet is extremely poor, consisting of high-sodium and high-sugar foods, including frequent consumption of Iranian takeout, weekly cake, and salty soups. The patient does not engage in any regular physical activity. 09/09/2024 office visit (Rosa Lyon NP): Patient here for 3 mo [...] still get dyspneic with walking shorter distances. ----- 06/17/24: Her visiting nurse called on 06/03/24 for c/o increased SOB, weight gain, increased leg swelling. Her lasix was increased to 40mg BID. Her weight is down 8# since last seen. Patient and caregiver note that patient watches her fluid intake. She likes to snack. Patient is alone in the evening. Caregiver notes that a new guardian was appointed. -------- 02/11/24: Patient here for follow up prior [...] Problem List Diagnosis Acute hypoxemic respiratory failure ([facility]/HCC) Acute severe refractory exacerbation of asthma ([facility]/HCC) History of ST elevation myocardial infarction (STEMI) Gastroesophageal reflux disease Hypertensive disorder Asthma Iron deficiency anemia secondary to inadequate dietary iron intake Carcinoma of lower-outer quadrant of right breast in female, estrogen receptor negative ([facility]/HCC) Atrial fibrillation status post cardioversion ([facility]/HCC) Sinusitis Type 1 diabetes mellitus ([facility]/HCC) Chronic heart failure with preserved ejection fraction ([facility]/HCC) Chronic respiratory failure ([facility]) Electrolyte and fluid disorder intermediate frame tender 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 steroid Morbid obesity ([facility]/HCC) Severe persistent asthma ([facility]/HCC) Paroxysmal A-fib ([facility]/HCC) Altered mental status, unspecified Hallucination Psychosis ([facility]/HCC) family history includes Heart failure in her [...] extremities except if noted. Abdomen: Inspection and Palp (more content not included)... [facility] 09-09-2024 Note Patient here for 3 m [...] All other systems reviewed and are negative. [facility] 09-09-2024 Note Cardiovascular Medic [facility] SUBJECTIVE Kaylie Salomon is a 74 y.o. female here for follow-up. HPI PMHx: HFpEF, persistent a.fib, asthma, nonobstructive CAD, GERD, hypertension, MRDD, depression, breast Ca with radiation theray 2017 or 201809/09/2024 Patient here for 3 mo follow up [...] still get dyspneic with walking shorter distances. ----- 06/17/24 Her visiting nurse called on 06/03/24 for c/o increased SOB, weight gain, increased leg swelling. Her lasix was increased to 40mg BID. Her weight is down 8# since last seen. Patient and caregiver note that patient watches her fluid intake. She likes to snack. Patient is alone in the evening. Caregiver notes that a new guardian was appointed. -------- 02/11/24 Patient here for follow up prior [...] Chronic heart failure with preserved ejection fraction ([facility]/HCC) Chronic respiratory failure ([facility]) Electrolyte and fluid disorder [facility]FP 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 steroid Morbid obesity ([facility]/HCC) Severe persistent asthma Paroxysmal A-fib ([facility]/HCC) Altered mental status, unspecified Hallucination Psychosis ([facility]) Past Medical History: Diagnosis Date Abnormal ECG Arrhythmia Asthma Atrial fibrillation ([facility]/HCC) Breast cancer ([facility]) RADIATION 2017 Coronary artery disease Depression Diabetes ([facility]/HCC) GERD (gastroesophageal reflux disease) Hypertension Myocardial infarct ([facility]) Obesity BMI 40.45 Family History Problem Relation [...] seafood Sulfa (Sulfonamide Antibiotics) Other and Unknown Yqbwuckl-Puxgwaqqiq-Fetqvyqoj Rash Penicillins Rash ROS Constitutional: Positive for weight loss (9# since 06/25/2024). Cardiovascular: Positive for dyspnea on exertion ( (more content not included)... [facility] 07-29-2024 Note HNO ID: [id number] Author: REGINALD ARAGON MD Service: ? Author Type: Physician Type: Progress Notes Filed: 07/31/2024 06:27 Note Text: PATIENT NAME: Kaylie Salomon DATE: 07/30/2024 PRIMARY CARE PHYSICIAN: Dr. Landeros OTHER PHYSICIANS: Dr. Ramon Smith, Afua RAMIREZT, Dr. Brian Gil (Cardiology [facility]) Portions of this encounter note have been [...] and CHF. She is currently managed by [facility] (Dr. Gil). Otherwise she has had [...] on 03/14/2023) ALLERGIES: Clarithromycin, Conjugated Estrogens, Neosporin [Cxpeoost-Lcvrbcesgw-Mncioiepy], Paclitaxel, Peanut, Penicillins, and Sulfa (Sulfonamide Antibiotics) PAST MEDICAL HISTORY: PAST MEDICAL HISTORY Diagnosis Date AF (atrial fibrillation) ([facility]) Asthma Breast cancer (HCC) 02/[address] Landeros COPD (chronic obstructive pulmonary disease) ([facility]) Edema Hyperlipidemia Hypertension OA (osteoarthritis of [...] frequency or incontinence. (more content not included)... [facility] 07-29-2024 History of Present illness Narrative PATIENT NAME: Kaylie Salomon DATE: 07/30/2024 PRIMARY CARE PHYSICIAN: Dr. Landeros OTHER PHYSICIANS: Dr. Ramon Smith, Afua RAMIREZT, Dr. Brian Gil (Cardiology [facility]) Portions of this encounter note have been [...] and CHF. She is currently managed by [facility] (Dr. Gil). Otherwise she has had [...] on 03/14/2023) ALLERGIES: Clarithromycin, Conjugated Estrogens, Neosporin [Subehvkx-Ytbmzodutk-Acdbzxlry], Paclitaxel, Peanut, Penicillins, and Sulfa (Sulfonamide Antibiotics) PAST MEDICAL HISTORY: PAST MEDICAL HISTORY Diagnosis Date AF (atrial fibrillation) ([facility]) Asthma Breast cancer (HCC) 02/[address] 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 female here for follow-up. HPI PMHx: HFpEF, persistent a.fib, asthma, nonobstructive CAD, GERD, hypertension, MRDD, depression, breast Ca with radiation theray 2018 or 201806/25/24 Patient here for 1 week [...] still get dyspneic with walking shorter distances. ----- 06/17/24 Her visiting nurse called on 06/03/24 for c/o increased SOB, weight gain, increased leg swelling. Her lasix was increased to 40mg BID. Her weight is down 8# since last seen. Patient and caregiver note that patient watches her fluid intake. She likes to snack. Patient is alone in the evening. Caregiver notes that a new guardian was appointed. -------- 02/11/24 Patient here for follow up prior [...] complaints of chest pain, shortness of breath, BOSHC, LE edema. But on exam it is [...] right breast in female, estrogen receptor negative ([facility]/HCC) Atrial fibrillation status post cardioversion ([facility]/HCC) Sinusitis Type 1 diabetes mellitus ([facility]/HCC) Chronic heart failure with preserved ejection fraction ([facility]/HCC) Chronic respiratory failure ([facility]/HCC) Electrolyte and fluid disorder intermediate frame tender 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 steroid Morbid obesity ([facility]/HCC) Severe persistent asthma Paroxysmal A-fib ([facility]/HCC) Altered mental status, unspecified Hallucination Psychosis ([facility]/HCC) Past Medical History: Diagnosis Date Asthma Atrial fibrillation ([facility]/HCC) Breast cancer ([facility]) RADIATION 2017 Coronary artery disease Depression Diabetes ([facility]/HCC) GERD (gastroesophageal reflux disease) Hypertension Myocardial infarct ([facility]/HCC) Obesity BMI 40.45 Family History Problem Relation [...] seafood Sulfa (Sulfonamide Antibiotics) Other and Unknown Tolhyruv-Mdvibzemjx-Hxmndfdlg Rash Penicillins Rash Review of Systems Constitutional: [...] Current Outpatient Medications: (more content not included)... [facility] 06-25-2024 Note Patient here for 1 w [place] follow up HFpEF. She has lost 15# [...] All other systems reviewed and are negative. [facility] 06-17-2024 Note Cardiovascular Medic [facility] SUBJECTIVE Patient here for 1 [...] notes that a new guardian was appointed. -------- 02/11/24 Patient here for follow up prior [...] preserved ejection fraction (CMS/HCC) Chronic respiratory failure (CMS/[facility]) Electrolyte and fluid disorder MCFP 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 steroid Morbid obesity ([facility]/HCC) Severe persistent asthma Paroxysmal A-fib ([facility]/HCC) Altered mental status, unspecified Hallucination Psychosis ([facility]) Past Medical History: Diagnosis Date Asthma Atrial fibrillation ([facility]/HCC) Breast cancer ([facility]) RADIATION 2017 Coronary artery disease Depression Diabetes ([facility]/HCC) GERD (gastroesophageal reflux disease) Hypertension Myocardial infarct ([facility]) Obesity BMI 40.45 Family History Problem Relation [...] seafood Sulfa (Sulfonamide Antibiotics) Other and Unknown Artkkksl-Tkcxyyqbgx-Lwjpcljul Rash Penicillins Rash Review of Systems Constitutional: [...] 40 mg t (more content not included)... [facility] 06-17-2024 Note This report has been cancelled. [facility] 06-02-2024 Note Caregiver called and states [...] upcoming within the next 1-3 weeks. Elif Russell [facility] Cardiology Available 7a-5pm via [employer] Chat Pager [phone] [facility] 05-13-2024 Note Pt is here for a one week follow up, with labs done. Review of Systems Cardiovascular: Positive for leg swelling. [facility] 05-13-2024 Note Cardiovascular Medic ine [facility] SUBJECTIVE Chief Complaint Patient presents with [...] is unsure about the a.fib ablation. Her gwot ia/ilo intelligence support continue to discuss this with her. Denies CP, orthopnea, PND, dizziness/LH, palpitations, syncope, bleeding issues. -------- 02/11/24 Patient here for follow up prior [...] right breast in female, estrogen receptor negative ([facility]/HCC) Atrial fibrillation status post cardioversion ([facility]) Sinusitis Type 1 diabetes mellitus ([facility]/HCC) Chronic heart failure with preserved ejection fraction ([facility]) Chronic respiratory failure ([facility]) Electrolyte and fluid disorder [facility]FP 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 steroid Morbid obesity ([facility]) Severe persistent asthma Paroxysmal A-fib ([facility]/HCC) Altered mental status, unspecified Hallucination Psychosis ([facility]) Past Medical History: Diagnosis Date Asthma Atrial fibrillation ([facility]/HCC) Breast cancer ([facility]) RADIATION 2017 Coronary artery disease Depression Diabetes ([facility]/HCC) GERD (gastroesophageal reflux disease) Hypertension Myocardial infarct ([facility]) Obesity BMI 40.45 Family History Problem Relation [...] seafood Sulfa (Sulfonamide Antibiotics) Other and Unknown Pzrerzbo-Epfkdxkqwp-Lnmenubka Rash Penicillins Rash Review of Systems Constitutional: [...] LAST DOSE 01/03/24, (more content not included)... [facility] 05-04-2024 Note Caregiver called off ice [...] repeat BMP Saturday or Saturday. Elif [place] Cardiology Available 7a-5pm via [employer] Chat Pager [phone] [facility] 09-12-2023 Miscellaneous Notes Ordered faxed to Umm Ramos RN BRM/HM: Please sign pended order Orders sent to [facility] PH: [phone] Will notifiy Gricel, healthcare economics manager, once signed Carin Ramos RN documented in this encounter [facility] 09-12-2023 Note HNO ID: [id number] Author: Reginald Aragon MD Service: ? Author [...] on 03/14/2023) ALLERGIES: Clarithromycin, Conjugated Estrogens, Neosporin [Awniamrq-Tqyiuusemb-Vjhvqbgoo], Paclitaxel, Peanut, Penicillins, and Sulfa (Sulfonamide Antibiotics) [...] 167.7 cm (5' (more content not included)... [facility] 06-10-2023 Miscellaneous Notes Spoke to pet caretaker. She has not heard from anyone regarding scheduling of Mammogram at [facility]. Order fax[facility] to [facility] scheduling. She is aware to call if [...] pending order. PSS: Pt needs scheduled at [facility]. Thanks! Orly Fraga, DILCIA documented in this encounter [facility] 04-04-2023 Miscellaneous Notes Spoke w/ Penelope. Requests that we send pt's most recent lab results to Dr Landeros's office. Results from 03/[address] Landeros's office as requested. Chary Cornelius RN Voicemail message received from pt's sister, Penelope, regarding lab results. Call placed to sister. No answer. Message left requesting call back. Chary Cornelius RN documented in this encounter [facility] 03-14-2023 History of Present illness Narrative PATIENT NAME: Kaylie Salomon DATE: 03/14/2023 PRIMARY CARE PHYSICIAN: Dr. Charles Landeros OTHER PHYSICIANS: Dr. Ramon Smith, [facility] Portions of this encounter note have [...] once daily. 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 I will see [...] Reginald Aragon MD documented in this encounter [facility] 09-13-2022 History of Present illness Narrative [...] cancer, seen for scheduled follow-up. INTERIM HISTORY: aKylie Salomon returns for scheduled follow-up. She had [...] once daily. ALLERGIES: Clarithromycin, Conjugated Estrogens, Neosporin [Jobgetyo-Racblfjbju-Htqhlimmq], Paclitaxel, Peanut, Penicillins, and Sulfa (Sulfonamide Antibiotics) [...] RADIOLOGY/OTHER STUDIES: 06/14/2022 Left Diagnostic Mammogram ([facility]) Findings: Diagnostic category 2-benign finding: Left breast: No significant suspicious finding. Scattered benign-appearing nodules are present. No significant change has occurred. 08/17/2021 CT CHEST IMPRESSION: 1. Stable posttreatment changes, as described above. 2. Stable appearance of left lower lobe 5 mm nodule. No new or enlarging nodules are seen. 3. No evidence of bulky intrathoracic lymphadenopathy. 06/13/2021 Left Diagnostic Mammogram ([facility]) No significant suspicious finding. 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 ALLERGIES: Clarithromycin, Conjugated Estrogens, Neosporin [Kplfxrtr-Geozkjkqex-Uooaiyzxa], Paclitaxel, Peanut, Penicillins, and Sulfa (Sulfonamide Antibiotics) [...] bulky intrathoracic lymphadenopathy. 06/13/2021 Left Diagnostic Mammogram ([facility]) No significant suspicious finding. 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 eGFR- Date Value Ref Range Status 08/17/2021 >59 Final Comment: Note: On 11/25/2021, the eGFR calculation will be updated to the NKF-ASN Task Force recommended 2020 CKD-EPI creatinine equation which does not include a race variable. For more information or to access a 2020 CKD-EPI calculator, visit the National Kidney Foundation website at kidney.org/professionals/kdoqi/gf r_calculator. P.O.C.T. RESULTS: POC done: Yes, See Lab Tab August 17, 2021 TREATMENT: No Hydration needed. IV SITE: Ambulatory: A peripheral IV was started in the Left antecubital site with a Angio cath: 20 gauge. IV SITE APPEARANCE: Clean,Dry and Intact SIGNATURE: Carin Ramos RN, BSN PATIENT NAME: Kaylie Salomon DATE: August 17, 2021 TIME: 9:26 AM [facility] 08-17-2021 Nurse Note Radiology Service [...] visit the National Kidney [employer] website at kidney.org/professionals/kdoqi/gf r_calculator. eGFR- Date Value Ref Range Status 08/17/2021 >59 Final Comment: Note: On 11/25/2021, the eGFR calculation will be updated to the NKF-ASN Task Force recommended 2020 CKD-EPI creatinine equation which does not include a race variable. For more information or to access a 2020 CKD-EPI calculator, visit the National Kidney [employer] website at kidney.org/professionals/kdoqi/gf r_calculator. P.O.C.T. RESULTS: POC done: Yes, See Lab Tab August 17, 2021 TREATMENT: No Hydration needed. IV SITE: Ambulatory: A peripheral IV was started in the Left antecubital site with a Angio cath: 20 gauge. IV SITE APPEARANCE: Clean,Dry and Intact SIGNATURE: Carin Ramos RN, BSN PATIENT NAME: Kaylie Salomon DATE: August 17, 2021 TIME: 9:26 AM documented in this encounter [facility] Evaluation note Diagnosis Malignant neoplasm of overlapping sites of right breast in female, estrogen receptor negative (HCC)- Primary Other iron deficiency anemia [facility] Diagnosis Malignant neoplasm of overlapping sites of right breast in female, estrogen receptor negative (HCC)- Primary Iron deficiency anemia secondary to inadequate dietary iron intake [facility] Diagnosis Malignant neoplasm of overlapping sites of right breast in female, estrogen receptor negative (HCC)- Primary History of iron deficiency Personal history of diseases of blood and blood-forming organs [facility] Diagnosis Malignant neoplasm of overlapping sites of right breast in female, estrogen receptor negative (HCC)- Primary [facility] Diagnosis Malignant neoplasm of overlapping sites of right breast in female, estrogen receptor negative (HCC)- Primary Hx of total mastectomy of right breast Personal history of surgery to other organs [facility] Diagnosis Lung nodules Other nonspecific abnormal finding of lung field [facility] Diagnosis Malignant neoplasm of overlapping sites of right breast in female, estrogen receptor negative (HCC)- Primary [facility]* Diagnosis Sensorineural hearing loss (SNHL) of both ears- Primary Tinnitus, bilateral Unspecified tinnitus Impaired auditory discrimination, bilateral documented in this encounter [facility]* Diagnosis Sensorineural hearing loss (SNHL), bilateral- Primary documented in this encounter [facility]* Diagnosis Stage 3b chronic kidney disease (CKD) (CMS-HCC)- Primary CKD (chronic kidney disease), stage IV (CMS-HCC) Chronic kidney disease, Stage IV (severe) [facility] filedocumented in this encounter [facility]ructionsNot on filedocumented in this [facility] (n[facility] Diagnostic Procedure Only (Routine) - Pending Review Specialty Diagnoses / Procedures Referred By Contac t Referred To Contact [facility] Diagnoses Malignant neoplasm of overlapping sites of right breast in female, estrogen receptor negative (HCC) Procedures RAMBO DIAGNOSTIC LT DIAGNOSTIC MAMMOGRAPHY COMPUTER-AIDED DETCJ UNI Reginald Aragon MD [address] [place] [address] [place] [address] [facility] [address] [place] [phone] Referral ID Status Reason Start Date Expiration Date Visits Requested Visits Authorized [id number] Pending Review Auto-Generat ed Referral 03/14/2022 04/13/2023 1 1 [facility] for referral (narrative)* Diagnostic Procedure Only (Routine) - Pending Review Specialty Diagnoses / Procedures Referred By Contac t Referred To Contact BR IMAGING Diagnoses Malignant neoplasm of overlapping sites of right breast in female, estrogen receptor negative (HCC) Procedures RAMBO DIAGNOSTIC LEFT DIAGNOSTIC MAMMOGRAPHY COMPUTER-AIDED DETCJ UNI Shayy Bernabe PA-C [address] [place] [address] [place] [address] [facility] [address] [place] [address] Referral ID Status Reason Start Date Expiration Date Visits Requested Visits Authorized [id number] Pending Review Auto-Generat ed Referral 06/07/2023 07/06/2024 1 1 [facility] for visit Narrative* Consultation (Routine) - Pending Review Specialty Diagnoses / Procedures Referred By Ambrose thomas Referred To Contact Nephrology Diagnoses CKD (chronic kidney disease), stage IV ([facility]-HCC) Rosa Lyon APRN-[employer] OPERATOR [address] [facility] [place] [address] Phone: tel: fax: PHN [facility] [address] [place] [address] Phone: tel: fax: Referral ID Status Reason Start Date Expiration Date Visits Requested Visits Authorized [id number] Pending Review Specialty Services Required 04/29/2025 04/29/2026 1 1 [facility] Summary Purpose Family History No Family History [...] Records Found Hospital Course Note MR#: [id number] I [facility] Pt. Name: Kaylie Salomon Admitted: 01/31/2019 Discharged: 02/02/2019 Date of : 1950 Physician: Tramaine Sandhu MD DISCHARGE SUMMARY PRIMARY CARE PHYSICIAN: No PCP. CONSULTING SERVICE: None. ADMITTING DIAGNOSES: 1. Chusq-bo-omtswko hypercapnic hypoxic respiratory failure. 2. Atrial fibrillation with rapid ventricular response. 3. Moderate persistent asthma with exacerbation. 4. Productive cough. DISCHARGE DIAGNOSES: 1. Lcrhq-oa-yylklpw hypoxemic/hypercapnic respiratory failure. 2. Moderate persistent asthma [...] PROSTHESIS, MASTECTOMY BRA Reginald Aragon MD [address] [place] [address] [place] [address] Referral ID Status Reason Start Date Expiration Date V isits Requested Visits Authorized [id number] Closed Auto-Generate d Referral 09/12/2023 09/12/2024 1 1 Additional Source Comments INFORMATION SOURCE (unrecogn ized section and content) DATE CREATED AUTHOR 12/05/2018 [facility] DATE CREATED AUTHOR AUTHOR'S ORGANIZ ATION 05/13/2019 [facility] DATE CREATED AUTHOR AUTHOR'S ORGANIZ ATION 09/21/2022 [facility] DATE CREATED AUTHOR AUTHOR'S ORGANIZ ATION 08/01/2024 [facility] DATE CREATED AUTHOR AUTHOR'S ORGANIZ ATION 04/09/2025 [facility] DATE CREATED AUTHOR AUTHOR'S ORGANIZ ATION 04/11/2025 [facility] Specialists [facility] DATE CREATED AUTHOR AUTHOR'S ORGANIZ ATION 04/18/2025 [facility] DATE CREATED AUTHOR AUTHOR'S ORGANIZ ATION 04/29/2025 [facility] DATE CREATED AUTHOR AUTHOR'S ORGANIZ ATION 05/01/2025 [facility] Source Comments (unrecognize d section and content) In the event this informatio n is protected by the Federal Confidentiality of Alcohol and Drug Abuse Patient Records regulations: The Federal rules restrict any use of the information to criminally investigate or prosecute any alcohol or drug abuse patient.[facility] the event this information is protected by the Federal Confidentiality of Alcohol and Drug Abuse Patient Records regulations: The Federal rules restrict any use of the information to criminally investigate or prosecute any alcohol or drug abuse patient.[facility] the event this information is protected by the Federal Confidentiality of Alcohol and Drug Abuse Patient Records regulations: The Federal rules restrict any use of the information to criminally investigate or prosecute any alcohol or drug abuse patient.[facility] the event this information is protected by the Federal Confidentiality of Alcohol and Drug Abuse Patient Records regulations: The Federal rules restrict any use of the information to criminally investigate or prosecute any alcohol or drug abuse patient.[facility] the event this information is protected by the Federal Confidentiality of Alcohol and Drug Abuse Patient Records regulations: The Federal rules restrict any use of the information to criminally investigate or prosecute any alcohol or drug abuse patient.[facility] Hospital[facility] the event this information is protected by the Federal Confidentiality of Alcohol and Drug Abuse Patient Records regulations: The Federal rules restrict any use of the information to criminally investigate or prosecute any alcohol or drug abuse patient.[facility] the event this information is protected by the Federal Confidentiality of Alcohol and Drug Abuse Patient Records regulations: The Federal rules restrict any use of the information to criminally investigate or prosecute any alcohol or drug abuse patient.[facility] the event this information is protected by the Federal Confidentiality of Alcohol and Drug Abuse Patient Records regulations: The Federal rules restrict any use of the information to criminally investigate or prosecute any alcohol or drug abuse patient.[facility] the event this information is protected by the Federal Confidentiality of Alcohol and Drug Abuse Patient Records regulations: The Federal rules restrict any use of the information to criminally investigate or prosecute any alcohol or drug abuse patient.[facility] the event this information is protected by the Federal Confidentiality of Alcohol and Drug Abuse Patient Records regulations: The Federal rules restrict any use of the information to criminally investigate or prosecute any alcohol or drug abuse patient.[facility] Reason for Visit (unrecogniz ed section and content) Reason Comments Breast Cancer 6 month follow up Reason Comments Refill Request Reason Comments Breast Cancer Follow up Reason Comments Breast Cancer 1 year follow up Reason Comments Results Reason Comments Orders Reason Comments Radiology CT Reason Comments Hearing Loss Audio 03/24/25 Care Teams (unrecognized sec tion and content) Manufacturing Lead Relationship Specialty Start Date End Date Charles Landeros MD [address] [place] [address] PCP - General Family Practice 03/11/19 Samantha Benitez, SUPERVISOR [employer] OPERATOR [address] [place] [address] Physician Community Service Specialist Hematology/Oncology 04/27/19 Reginald Aragon MD [address] [place] [address] Physician Hematology/Oncology 12/07/19 Manufacturing Lead Relationship Specialty Start Date End Date Charles Landeros MD [address] [place] [address] PCP - General Family Medicine 03/11/19 Samantha Benitez, SUPERVISOR CYTO[employer]ETIC [employer]ORATORY.[employer] DIST[employer]ION PLANT OPERATOR [address] [place] [address] Physician Community Service Specialist Hematology/Oncology 04/27/19 Reginald Aragon MD [address] [place] [address] Physician Hematology/Oncology 12/07/19 Manufacturing Lead Relationship Specialty Start Date End Date Charles Landeros MD [address] [place] [address] PCP - General Family Medicine 03/11/19 Samantha Benitez, SUPERVISOR CYTO[employer]ETIC LABORATORY.[employer] DISTRI[employer]ION PLANT OPERATOR [address] [place] [address] Physician Community Service Specialist Hematology/Oncology 04/27/19 Reginald Aragon MD [address] [place] [address] Physician Hematology/Oncology 12/07/19 Manufacturing Lead Relationship Specialty Start Date End Date Charles Landeros MD [address] [place] [address] PCP - General Family Medicine 03/11/19 Samantha Benitez, SUPERVISOR CYTO[employer]ETIC [employer]ORATORY.[employer] DIST[employer] PLANT OPERATOR [address] [place] [address] Physician Community Service Specialist Hematology/Oncology 04/27/19 Reginald Aragon MD [address] [place] [address] Physician Hematology/Oncology 12/07/19 Manufacturing Lead Relationship Specialty Start Date End Date Charles Landeros MD [address] [place] [address] PCP - General Family Medicine 03/11/19 Samantha Benitez, SUPERVISOR CYTOGENETIC LABORATORY.[employer] DIST[employer] PLANT OPERATOR [address] [place] [address] Physician Community Service Specialist Hematology/Oncology 04/27/19 Reginald Aragon MD [address] [place] [address] Physician Hematology/Oncology 12/07/19 Manufacturing Lead Relationship Specialty Start Date End Date Charles Landeros MD [address] [place] [address] PCP - General Family Medicine 03/11/19 Samantha Benitez, SUPERVISOR CYTO[employer]ETIC [employer]ORATORY.[employer] DISTRI[employer]ION PLANT OPERATOR [address] [place], [place] [id number] Physician Community Service Specialist Hematology/Oncology 04/27/19 Reginald Aragon MD [address] [place], [place] [id number] Physician Hematology/Oncology 12/07/19 Manufacturing Lead Relationship Specialty Start Date End Date Charles Landeros MD [address] [place] [address] PCP - General Family Medicine 03/11/19 Samantha Benitez, SUPERVISOR CYTO[employer]ETIC [employer]ORATORY.[employer] DIST[employer]ION PLANT OPERATOR [address] [facility] [place] [address] Physician Community Service Specialist Hematology/Oncology 04/27/19 Reginald Aragon MD [address] [facility] [place] [address] Physician Hematology/Oncology 12/07/19 Manufacturing Lead Relationship Specialty Start Date End Date Charles Landeros MD [address] [place] [id number] PCP - General Family Medicine 03/11/19 Samantha Benitez, SUPERVISOR CYTOGENETIC LABORATORY.GAS DIST[employer]ION PLANT OPERATOR [address] [place] [address] Physician Community Service Specialist Hematology/Oncology 04/27/19 Reginald Aragon MD [address] [place] [address] Physician Hematology/Oncology 12/07/19 Manufacturing Lead Relationship Specialty Start Date End Date Charles Landeros MD [address] [place] [address] PCP - General Family Medicine 03/11/19 Samantha Benitez, SUPERVISOR CYTOGENETIC LABORATORY.GAS DISTRIBUTION PLANT OPERATOR [address] [facility] [facility] [place] [address] Physician Community Service Specialist Hematology/Oncology 04/27/19 Reginald Aragon MD [address] [place] [address] [place] [address] Physician Hematology/Oncology 12/07/19 Manufacturing Lead Relationship Specialty Start Date End Date Ishan Reyez MD [address] [place], [place] [id number] PCP - General Family Medicine 12/22/24 Oh Kaufman NP [address] [place], [place] [id number] Referring Physician Family Medicine 02/11/24 Manufacturing Lead Relationship Specialty Start Date End Date Ishan Reyez MD [address] [place], [place] [id number] PCP - General Family Medicine 12/22/24 Oh Kaufman NP [address] [place], [place] [address] Referring Physician Family Medicine 02/11/24 Manufacturing Lead Relationship Specialty Start Date End Date Ishan Reyez MD [address] [place], [place] [id number] PCP - General Family Medicine 12/22/24 Oh Kaufman NP [address] [place] [address] Referring Physician Family Medicine 02/11/24 Manufacturing Lead Relationship Specialty Start Date End Date Ishan Reyez MD [address] [place] [address] PCP - General Family Medicine 12/22/24 Oh Kaufman NP [address] [place], [place] [phone] Referring Physician Family Medicine 02/11/24 Manufacturing Lead Relationship Specialty Start Date End Date Oh Kaufman, SUPERVISOR CYTOGENETIC LABORATORY-GAS DISTRIBUTION PLANT OPERATOR [address] [place] [address] PCP - General Nurse Practitioner 11/27/23 Manufacturing Lead Relationship Specialty Start Date End Date Oh Kaufman, SUPERVISOR CYTOGENETIC LABORATORY-GAS DISTRIBUTION PLANT OPERATOR [address] [place] [address] PCP - General Nurse Practitioner 11/27/23 FOR RECORDS PERTAINING TO PATIENTS WHO ARE [...] BE BASED ON THE PRIMARY CLINICAL RECORDS. [employer] [facility]. provides no warranty or guarantee of the accuracy or completeness of information in this document.
[2025-05-11 14:22] LABS: Protein Creatinine Ratio Urine 0.34; Total Protein Urine Random 15.9 mg/dL (<=11.9)
[2025-05-11 15:32] LABS: Anion Gap 6.1; Blood Urea Nitrogen 56.0 mg/dL (7.0-18.0); Calcium 9.1 mg/dL (8.5-10.1); Carbon Dioxide 33.9 mmol/L (21.0-32.0); Chloride 104 mmol/L (98-107); Estimated GFR (African America 32 (>=60 mL/min/1.73m^2); Estimated GFR (Non-African Ame 26 (>=60 mL/min/1.73m^2); Glucose 133 mg/dL (74-106); Potassium 5.0 mmol/L (3.5-5.1); Sodium 139 mmol/L (136-145)
[2025-05-13 17:08] LABS: Albumin 3.5 g/dL (2.9-4.4); Alpha-1-Globulin 0.3 g/dL (0.0-0.4); Alpha-2-Globulin 0.9 g/dL (0.4-1.0); Free Kappa Lt Chains,S 39.9 mg/L (3.3-19.4); Free Lambda Lt Chains,S 45.9 mg/L (5.7-26.3); Gamma Globulin 0.7 g/dL (0.4-1.8); Immunoglobulin A, Qn, Serum 270 mg/dL (64-422); Kappa/Lambda Ratio,S 0.87 (0.26-1.65)
[2025-05-13 19:08] LABS: Anti-MPO Antibodies <0.2 units (0.0-0.9); Anti-PR3 Antibodies <0.2 units (0.0-0.9)
[2025-05-15 18:08] LABS: Anti-GBM Ab (RDL) <20 Units (<20)
== END 2025-05-11 13:21 | disposition home or self-care (01) ==
LOC: LAB 13:21
PROVIDERS: PCP Nurse Practitioner; Visit Provider Internal Medicine Nephrology
DX: N18.32 Chronic kidney disease, stage 3b (principal)
CPT/HCPCS: 36415; 80048; 82570; 82784; 83516; 83521; 84155; 84156; 84165; 86037; 86038; 86160; 86334; 86431

== ENCOUNTER 2025-06-23 14:12 | Outpatient (OUT) | payer MEDICARE, MEDICAID, SELFPAY ==
--- OUTSIDE RECORDS SUMMARY | 2025-06-23 14:19 | XMS_ITS | Encounter Summary ---
Author Organization [email or web address] Sys tem Address [id number] [address] [place] [address] Care Team Providers Care White Mixing Operator Name Role Phone Evy Kaufman PRINTING PLATE CLERK-SEMICONDUCTOR DIES LOADER Primary Care Provider [phone] Encounter Details Date Type Department Care Team (Late Contact Info) Description 06/04/2025 Orders Only [facility] External Film Storage [address] [place] [phone] Transcribe, Orders Support User Pain (Primary Dx) Social History Tobacco Use Types Packs/Day Years [...] Encounters Date Type Department Care Team (Late Contact Info) Description 08/05/2025 2:40 PM EST Office Visit [facility] [address] [place] [address] Emiliana Navarro, PRINTING PLATE CLERK-SEMICONDUCTOR DIES LOADER [address] [facility], [address] [place] [address] 08/12/2025 3:00 PM EST Office Visit [facility] [address] [place] [phone] Nathalie Nguyen, [address] [address] documented as of this encounter Results * CT angiogram chest (01/07/2024 1:35 PM EDT) us Scanning Provider External IMG CT ORDERABLES Fin al Result documented in this encounter Visit Diagnoses Diagnosis Pain- Primary Generalized pain documented in this encounter Care Teams White Mixing Operator Relationship Specialty Start Date End Date Evy Kaufman, PRINTING PLATE CLERK-SEMICONDUCTOR DIES LOADER [address] [place] [address] PCP - General Nurse Practitioner 11/27/23 documented as of this encounter
--- OUTSIDE RECORDS SUMMARY | 2025-06-23 14:19 | XMS_ITS | Encounter Summary ---
Author Organization [facility] Address [address] [place] [address] Care Team Providers Care Coal Getter Name Role Phone Hortensia Landeros MD Primary Care Provider [phone] Samantha Benitez APRN.TECHNICAL INFORMATION SPECIALIST Unavailable [phone] Chary Cornelius RN Unavailable [phone] Reginald Aragon MD Unavailable Unavail able Source Comments In the event this information is protected by the Federal Confidentiality of Alcohol and Drug AbusePatient Records regulations: The Federal rules restrict any use of the information to criminally investigate or prosecute any alcohol or drug abuse patient.[facility] Encounter Details Date Type Department Care Team (Latest Contact Info) Description 03/11/2019 H&P External-NonCCF Provider, External, PA-C Do not enter address information under generic [...] on filedocumented in this encounter Care Teams Coal Getter Relationship Specialty Start Date End Date Hortensia Landeros MD [address] [place] [address] PCP - General Family Medicine 03/11/19 Samantha Benitez APRN.TECHNICAL INFORMATION SPECIALIST [address] [place] [address] Physician Lawn Service Supervisor Hematology/Oncology 04/27/19 Chary Cornelius, DILCIA [address] [place] [address] Specialty Digital Operations Analyst Hematology/Oncology 05/14/19 01/31/21 Reginald Aragon MD [address] [place] [address] Physician Hematology/Oncology 12/07/19 04/02/25 documented as of this encounter
--- OUTSIDE RECORDS SUMMARY | 2025-06-23 14:19 | XMS_ITS | Encounter Summary ---
Author Organization [facility] Address [address] [place] [address] Care Team Providers Care Radio Talk Show Host Name Role Phone Ishan Reyez MD Primary Care Provider [phone] Evy Kaufman-David Primary Care Provider [phone] Reason for Visit * Reason Comments Med Refill Encounter Details Date Type Department Care Team (Late Contact Info) Description 11/29/2023 Refill [facility] Heart at [facility] [address] [place] [address] Brian Alfred MD [address] [place] [phone] Paroxysmal atrial fibrillation (CMS/HCC) Social History Tobacco [...] Department Care Team (Late Contact Info) Description 07/08/2025 1:00 PM EDT Office Visit [facility] Heart at [facility] [address] [place] [address] Kelly Lyon CNP [address] [place] [address] 09/03/2025 Hospital Encounter [facility] Heart and Vascular Center Vascular Lab [address] [place] [address] Brian Alfred MD [address] [place] [address] Scheduled Procedures Name Priority Associated Diagnoses Date/Ti me Atrial Fib Ablation w/ PVI Paroxysmal atrial fibrillation (CMS/HCC) documented as of this encounter Visit Diagnoses Diagnosis Paroxysmal atrial fibrillation (CMS/HCC) Atrial fibrillation documented in this encounter Care Teams Radio Talk Show Host Relationship Specialty Start Date End Date Ishan Reyez MD [address] [place] [address] PCP - General Family Medicine 06/18/23 03/29/25 Evy Kaufman FNP-C [address] [place] [address] PCP - General Nurse Practitioner 03/30/25 documented as of this encounter
--- OUTSIDE RECORDS SUMMARY | 2025-06-23 14:19 | XMS_ITS | Encounter Summary ---
Author Organization [facility] Address [address] [place] [address] Care Team Providers Care Animal Husbandman Name Role Phone Ishan Reyez MD Primary Care Provider [phone] Evy Kaufman-David Primary Care Provider [phone] Reason for Visit * Reason Comments Med Refill Encounter Details Date Type Department Care Team (Late st Contact Info) Description 06/18/2023 Refill [facility] Heart at [facility] [address] [place] [address] Martir Aldridge MD [address] [place] [address] Longstanding persistent atrial fibrillation (CMS/HCC) Social History [...] Care Team (Late st Contact Info) Description 07/08/2025 1:00 PM EDT Office Visit [facility] Heart at [facility] [address] [place] [address] Kelly Lyon CNP [address] [place] [address] 09/03/2025 Hospital Encounter [email or web address] Heart and Vascular Center Vascular Lab [address] [place] [address] Brian Alfred MD [address] [place] [address] Scheduled Procedures Name Priority Associated Diagnoses Date/Ti me Atrial Fib Ablation w/ PVI Paroxysmal atrial fibrillation (CMS/HCC) documented as of this encounter Visit Diagnoses Diagnosis Longstanding persistent atrial fibrillation (CMS/HCC) documented in this encounter Care Teams Animal Husbandman Relationship Specialty Start Date End Date Ishan Reyez MD [address] [place] [address] PCP - General Family Medicine 06/18/23 03/29/25 Evy Kaufman FNP-C [address] [place] [address] PCP - General Nurse Practitioner 03/30/25 documented as of this encounter
--- OUTSIDE RECORDS SUMMARY | 2025-06-23 14:19 | XMS_ITS | Clinical Summary ---
Author Organization [facility] Address [id number] [address] [place] [address] Care Team Providers Care Copying Machine Repairer Name Role Phone Evy Kaufman AMERICAN BOARD CERTIFIED ORTHOTIST-SIZER MACHINE Primary Care Provider [phone] Allergies Active Allergy Reactions Criticality Noted Date Comments Bacitracin 04/25/2023 Bacitracin-Polymyxin B 02/10/2024 Clarithromycin Other (See Comments) 01/27/2010 Conjugated Estrogens 02/10/2024 Estrogens, Conjugated 04/25/2023 Flavoring Agent Other (See Comments) 03/30/2025 Other Reaction(s): Unknown Neomycin Sulfate 04/25/2023 Lkjsoisc-Crglqwsncz-Jxiu myxin Rash Low 05/06/2019 Paclitaxel Other (See Comments) 08/24/2019 Numbness,tingling and elevated blood pressure Peanut Anaphylaxis High 05/06/2019 Penicillins Rash Low 05/06/2019 Pineapple 05/07/2019 Polymyxin B 04/25/2023 Shrimp 05/07/2019 All seafood Sulfa (Sulfonamide Antibiotics) Other (See Comments) 01/27/2010 Medications fluticasone propion-salmete rol (ADVAIR) 500-50 mcg/dose DISKUS Inhale 1 puff in the morning and 1 puff before bedtime. Active furosemide (LASIX) 20 mg tablet Take 4 tablets (80 mg total) by mouth 2 (two) times a day. Active apixaban (ELIQUIS) 5 mg tablet Take [...] for shortness of breath or wheezing. Active ondansetron (ZOFRAN) 8 mg tablet Take [...] 1 Active metFORMIN (GLUCOPHAGE) 500 mg tablet Take 1 tablet (500 mg total) by mouth daily with breakfast. 0 Active benralizumab (FASENRA PEN) 30 mg/mL [...] tablet (20 mEq total) before bedtime. Active REXULTI 2 mg tablet Take 1 tablet (2 mg total) by mouth in the morning. 5 Active BREO ELLIPTA 100-25 mcg/dose blister with device Inhale 1 puff in the morning. Active spironolactone (ALDACTONE) 25 mg tablet Take 1 tablet (25 mg total) by mouth in the morning. 5 02/25/20 26 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, estrogen receptor negative 05/07/2019 Cancer Staging:Pathologic stage from 05/07/2019: pT1c, pN2a, cM0, ER-, [place]-, HER2+ - Unsigned Encounters Date Type Department Care Team Description 06/04/2025 Orders Only [facility] [address] [place] [phone] Transcribe, Orders Support User Pain (Primary Dx) 05/26/2025 Telephone [facility] [address] [place] [address] Samantha Trevizo 05/06/2025 8:00 AM EDT Office Visit [facility] [address] [place] [address] Von Baig MD Stage 3b chronic kidney disease (CKD) (CMS-HCC) (Primary Dx); CKD (chronic kidney disease), stage IV (CMS-HCC) 05/06/2025 Travel 04/29/2025 Telephone [facility] [address] [place] [address] External, Scanning Provider 04/07/2025 Travel from Last 3 Months Immunizations Immunization Administration Dates Next Due SARS-COV-2 [...] Sign Reading Time Taken Comments Blood Pressure 118/78 05/06/2025 8:10 AM EDT Pulse 75 05/06/2025 8:10 AM EDT Temperature 36.8 C (98.2 F) 11/01/2022 6:42 AM EST Respiratory Rate 20 11/01/2022 8:55 AM EST Oxygen Saturation 97% 11/01/2022 8:55 AM EST Inhaled Oxygen Concentration - - Weight 115.6 kg (254 lb 12.8 oz) 05/06/2025 8:05 AM EDT Height 167.6 cm (5' 6 ) 05/06/2025 8:05 AM EDT Body Mass Index 41.13 05/06/2025 8:05 AM EDT Plan of Treatment Upcoming Encounters Date Type Department Care Team (Late st Contact Info) Description 08/05/2025 2:40 PM EST Office Visit [facility] [address] [place] [address] Emiliana Navarro, AMERICAN BOARD CERTIFIED ORTHOTIST-SIZER MACHINE [address] [facility] [place], [place] [phone] 08/12/2025 3:00 PM EST Office Visit [facility] [address] [facility] [address] [place] [address] Nathalie Nguyen, DO [address] [address] Health Maintenance Due Date Last Done Comments Depression Screening 1962 DTaP,Tdap and Td Vaccines (1 - Tdap) 01/04/1967 Fall Risk Screening 01/04/2013 Zoster (Shingles) Vaccine (1 of 2) 12/04/2015 10/09/2015 COVID-19 Vaccine (7 - Mixed Product risk season) 2025 06/24/2024, 07/25/2023, 05/08/2022, Additional history exists Influenza Vaccine 05/31/2025 06/24/2024, , 07/11/2022, Additional history exists Tobacco Screening 05/06/2026 05/06/2025 Medical Devices Implanted Type Area Tax Services Specialist Device Identifier Shelf Expiration Date Model / Serial / Lot Lens Iol Ultrasert 23.0d - [id number] - [id number] Implanted:Qty: 1 on 06/28/2022 by Rosa Elena Lewis MD at [facility] Lens Left: Eye [employer] 02/06/2025 [id number] 23.0 / [id number] / NA Lens Iol Ultrasert 23.5d - [id number] - [id number] Implanted:Qty: 1 on 11/01/2022 by Rosa Elena Lewis MD at [facility] Lens Right: Eye [employer] 04/28/2025 AU00T0 23.5 / [id number] / NA Insurance MEDICAID [place] Member Subscriber Plan / Payer ( fective 2017-) Name:Kaylie Resendiz Relation to Subscriber:Self Name:UliseswinsomeNunuKayliedominic Davey Payer ID:Not on file Group ID:Not on file Type:Not on file Address: [place] [id number] MEDICARE MEDICAID [place] MEDICARE Care Teams Copying Machine Repairer Relationship Specialty Start Date End Date Evy Kaufman, RU-SIZER MACHINE [address] [place] [address] PCP - General Nurse Practitioner 11/27/23
--- OUTSIDE RECORDS SUMMARY | 2025-06-23 14:19 | XMS_ITS ---
Author Organization [employer] [facility] [employer] Address [id number] [address] [place] [address] Care Team Providers Care Food Crops Farm Hand Name Role Phone Evy Kaufman ANIMAL RIDE ATTENDANT-BRIM PRESSER Primary Care Provider [phone] Active Problems Problem Noted Date Diagnosed Date Carcinoma of lower-outer wanda drant of right breast in female, estrogen receptor negative 05/07/2019 Cancer Staging:Pathologic stage from 05/07/2019: pT1c, pN2a, cM0, ER-, [place]-, HER2+ - Unsigned Current Treatment and Therapy [...]
--- OUTSIDE RECORDS SUMMARY | 2025-06-23 14:19 | XMS_ITS | Clinical Summary ---
Author Organization [facility] Address [address] [facility] [place] [address] Phone Care Team Providers Care Computer Science Instructor Name Role Phone Unavailable Primary Care Provider [...]
--- OUTSIDE RECORDS SUMMARY | 2025-06-23 14:19 | XMS_ITS ---
Author Organization [facility] Address [address] [place] [address] Care Team Providers Care Wire Bound Box Machine Operator Name Role Phone Hortensia Landeros MD Primary Care Provider [phone] Samantha Benitez APRN.LAPEL PADDER BLINDSTITCH Unavailable [phone] Active Problems Problem Noted Date Diagnosed Date [...] Provider Cycles TCH - P - TRASTUZUMAB 05/05 PERTUZUMAB 840/420 DOCETAXEL 75 CARBOPLATIN 6 D1 - Q21D 05/06/2019 10/19/2020 CARBOplatin iv piggyback (PARAPLATIN)DO CEtaxel iv piggyback (TaxoTERE)pegf ilgrastim (NEULASTA ONPRO)pegfilgr astim (NEULASTA)pert uzumab iv piggyback (PERJETA)trast uzumab iv piggyback (HERCEPTIN) Other Manjit Hernandez DO 17 of 17 cycles started
--- OUTSIDE RECORDS SUMMARY | 2025-06-23 14:19 | XMS_ITS | Encounter Summary ---
Author Organization [employer] Address [id number] [address] [place] [address] Care Team Providers Care Member Of The Legislative Council Name Role Phone Evy Kaufman RELAY MOTORMAN-DJ INSTRUCTOR Primary Care Provider [phone] Encounter Details Date Type Department Care Team (Late st Contact Info) Description 05/26/2025 Telephone [facility] [address] [phone] Samantha Trevizo Social History Tobacco Use Types Packs/Day Years [...] on file documented as of this encounter Miscellaneous Notes * Telephone Encounter - Samantha Trevizo - 05/26/2025 3:18 PM EDT New pt drew'd 09/01 with SK at [facility] for Asthma, unspecified asthma severity, unspecified whether complicated, unspecified whether persistent. Pt had CXR and PFT recently at [facility] with Dr. Patel, can you request those records? Per career development coordinator/teacher Ramsey, pt has some dementia and had issuespreviously with instructions for PFT due to cognition and understanding the directions. * Telephone Encounter - Ofe Smith RN - 05/26/2025 3:18 PM EDT Confusion about pts records and reason for referral heart failure /kidney failure Reviewed faxes and care everywhere Pt goes to numerous hospitals/facilities but Dr Cande Myers moved away and pt wants to established with Afua myers I spoke to caregiver to clarify info Pt is learning disabled has someone in her home10 hours day Ramsey states Dr Castellon saw her once a year for asthma, she has had orders for breathing tests buthas not been able to complete them. Dr Castellon last note mentions a PFT from 2018 Pt has night time oxygen is obese Ramsey states no sleep studies She thinks Dr Castellon orders oxygen I asked Caregiver about abnormal ct from 12/2023 Caregiver is unaware of this test and that it showed a nodule and recommends a PET? I found an onc note CC [address] Aragon speaks about past nodule and past PET 2018 and 2020 andpt refused any FU Pt had breast cancer I think 6 years ago Per Caregiver pt was freaking out during CT so maybe she refused though she is unsure Pt currently is refusing an ablation! Believs Someone will cut out her heart UT films requested being pushed Samantha to reschedule appt with SE end of clinic in Nov Caregiver comes with pt I advised not sure what we can offer if pt Is unable to do testing documented in this encounter Plan of Treatment Upcoming Encounters Date Type Department Care Team (Late st Contact Info) Description 08/05/2025 2:40 PM EST Office Visit [facility] [address] [place] [address] Emiliana Navarro, RELAY MOTORMAN-DJ INSTRUCTOR [address] [facility], [address] [place] [address] 08/12/2025 3:00 PM EST Office Visit [facility] [address] [facility] [address] [facility] [place] [address] [place] [address] [place] [address] documented as of this encounter Visit Diagnoses Not on filedocumented in this encounter Care Teams Member Of The Legislative Council Relationship Specialty Start Date End Date Evy Kaufman, RELAY MOTORMAN-DJ INSTRUCTOR [address] [place] [address] PCP - General Nurse Practitioner 11/27/23 documented as of this encounter
--- OUTSIDE RECORDS SUMMARY | 2025-06-23 14:19 | XMS_ITS | Encounter Summary ---
Author Organization [id number] [address] [place] [address] Care Team Providers Care Cash Control Specialist Name Role Phone Evy Kaufman PATIENT RESOURCE SPECIALIST-CYTOGENETICIST Primary Care Provider [phone] Encounter Details Date Type Department Care Team (Late Contact Info) Description 09/17/2019 Social Work [facility] Oncology - Radiation Oncology [address] [place] [phone] Steff Martin, CATRACHITA Social History Tobacco Use Types Packs/Day Years Used Date Smoking Tobacco: Never Smokeless Tobacco: Never Alcohol Use Standard Drinks/Week Comments Never 0 (1 standard drink = 0.6 oz pur e alcohol) AUDIT-C Answer Date Recorded Frequency of Alcohol Consumption Never 05/07/2019 Average Number of Drinks Not on file 019 Frequency of Binge Drinking Not on file 0804/2019 Childcare Answer Date Recorded Childcare Unknown 03/11/2019 [...] EST Office Visit [facility] [address] [place] [phone] Emiliana Navarro, PATIENT RESOURCE SPECIALIST-CYTOGENETICIST [address] [facility] [place] [address] 08/12/2025 3:00 PM EST Office Visit [facility] [address] [address] [facility] [place] [address] Nathalie Nguyen, [address] [place] [address] documented as of this encounter Visit Diagnoses Not on filedocumented in this encounter Care Teams Cash Control Specialist Relationship Specialty Start Date End Date Evy Kaufman, PATIENT RESOURCE SPECIALIST-CYTOGENETICIST [address] [place] [address] PCP - General Nurse Practitioner 11/27/23 documented as of this encounter
--- OUTSIDE RECORDS SUMMARY | 2025-06-23 14:19 | XMS_ITS | Clinical Summary ---
Author Organization [facility] Address [address] [place] [id number] Care Team Providers Care Living Nurse Name Role Phone Hortensia Landeros MD Primary Care Provider Samantha Benitez APRN.WIRE CUTTER Unavailable [phone] Allergies Active Allergy Reactions Criticality Noted Date Comments Clarithromycin Unknown 01/27/2010 Conjugated Estrogens Unknown 01/27/2010 Mvskxepn-Fclsiwyouc-Bdde myxin Rash 05/06/2019 Paclitaxel Other: See Comments [...] (MODERNA) 11/24/2020,10/27/2020 COVID-19 vaccine, age 12+ yr (MODERNA SPIKEVAX) 06/24/2024,07/25/2023 influenza (HD-IIV3) vaccine, age 65+ yr, high [...] is lower risk 6 03/14/2023 Data from: https://www.neighborhoodatlas.medicine.[facility].edu/. Last address used for calculation Umer Zepeda [...] 3) 12/04/2015 10/09/2015 Advance Directive Discussion 09/30/2024 Influenza Vaccine (#1) 2025 4, 07/25/2023, 07/11/2022, Additional history exists Diabetes Screening 07/30/2027 07/30/2024, 0 05/20/2024, 05/05/2024, Additional history exists Mammogram Screening Discontinued 06/08/2020 Pneumococcal Vaccine: 50+ Completed 2023, 07/21/2019, 06/26/2018, [...] - 8.0 g/dL 07/30/2024 2:16 PM EDT [facility] Albumin 4.0 3.9 - 4.9 g/dL 07/30/2024 2:16 PM EDT [facility] Calcium, Total 9.3 8.5 - 10.2 mg/dL 07/30/2024 2:16 PM EDT [facility] Bilirubin, Total 0.4 0.2 - 1.3 mg/dL 07/30/2024 2:16 PM EDT [facility] Alkaline Phosphatase 95 34 - 123 U/L 07/30/2024 2:16 PM EDT [facility] AST 21 13 - 35 U/L 07/30/2024 2:16 PM EDT [facility] ALT 19 7 - 38 U/L 07/30/2024 2:16 PM EDT [facility] Glucose 83 74 - 99 mg/dL 07/30/2024 2:16 PM T [facility] Comment: The [place] [employer] (ADA) provides guidance for cutoff [...] Standards of Medical Care in Diabetes 2016, [place] [employer]. Diabetes Care. 2016.39(Suppl 1). BUN 54(H) 7 - 21 mg/dL 07/30/2024 2:16 PM T [facility] Creatinine 1.41(H) 0.58 - 0.96 mg/dL 07/30/2024 2:16 PM EDT [facility] Sodium 141 136 - 144 mmol/L 07/30/2024 2:16 PM T [facility] Potassium 4.3 3.7 - 5.1 mmol/L 07/30/2024 2:16 PM EDT [facility] Chloride 100 98 - 107 mmol/L 07/30/2024 2:16 PM T [facility] CO2 31(H) 22 - 30 mmol/L 07/30/2024 2:16 PM EDT [facility] Anion Gap 10 8 - 15 mmol/L 07/30/2024 2:16 PM EDT [facility] Estimated Glomerular Filtration Rate 39(L) >=60 mL/min/1. 73m 07/30/2024 2:16 PM EDT [facility] Comment:Estimated Glomerular Filtration Rate (eGFR) is [...] 1:47 PM EDT 07/30/2024 1:47 PM EDT us Reginald Aragon MD LABORATORY Final Re sult [facility] [address] [place] [address] from Last 3 Months or Most Recently Relevant to Health Maintenance Insurance [place] [address] Care Teams Living Nurse Relationship Specialty Start Date End Date Hortensia Landeros MD [address] [place] [address] PCP - General Family Medicine 03/11/19 Samantha Benitez APRN.WIRE CUTTER [address] [place] [address] [place] [address] Physician Cold Rolling Supervisor Hematology/Oncology 04/27/19
--- OUTSIDE RECORDS SUMMARY | 2025-06-23 14:19 | XMS_ITS | Encounter Summary ---
Author Organization [facility] Address [id number] [address] [place] [address] Care Team Providers Care Diesel Lube Tech Name Role Phone Evy Kaufman SILK FOLDER-COMMUNITY SERVICE PATROL OFFICER Primary Care Provider [phone] Encounter Details Date Type Department Care Team (Late Contact Info) Description 07/11/2020 Abstract [facility] Oncology - Radiation Oncology [address] [place] [phone] Ruthann Jarrett RMA Social History Tobacco Use [...] EST Office Visit [facility] [address] [place] [phone] Emiliana Navarro, SILK FOLDER-COMMUNITY SERVICE PATROL OFFICER [address] [facility], [address] [place] [address] 08/12/2025 3:00 PM EST Office Visit [facility] Pulmonary/Sleep Medicine [address] [place] [address] Nathalie Nguyen, [address] [address] documented as of this encounter Procedures Procedure [...] on filedocumented in this encounter Care Teams Diesel Lube Tech Relationship Specialty Start Date End Date Evy Kaufman, SILK FOLDER-COMMUNITY SERVICE PATROL OFFICER [address] [place] [address] PCP - General Nurse Practitioner 11/27/23 documented as of this encounter
--- OUTSIDE RECORDS SUMMARY | 2025-06-23 14:19 | XMS_ITS | Encounter Summary ---
Author Organization [facility] Address [address] [address] Care Team Providers Care Clipman Name Role Phone Ishan Reyez MD Primary Care Provider [phone] Evy Kaufman-David Primary Care Provider [phone] Reason for Visit * Reason Comments Med Refill Encounter Details Date Type Department Care Team (Late Contact Info) Description 12/24/2023 Refill [facility] [address] [place] [address] Brian Alfred MD [address] [place] [phone] Paroxysmal atrial fibrillation (CMS/HCC) Social History Tobacco [...] Description 07/08/2025 1:00 PM EDT Office Visit [facility] [address] [place] [address] Kelly Lyon CNP [address] [place] [address] 09/03/2025 Hospital Encounter [facility] V[facility] [address] [place] [address] Brian Alferd MD [address] [place] [address] Scheduled Procedures Name Priority Associated Diagnoses Date/Ti me Atrial Fib Ablation w/ PVI Paroxysmal atrial fibrillation (CMS/HCC) documented as of this encounter Visit Diagnoses Diagnosis Paroxysmal atrial fibrillation (CMS/HCC) Atrial fibrillation documented in this encounter Care Teams Clipman Relationship Specialty Start Date End Date Ishan Reyez MD [address] [place] [address] PCP - General Family Medicine 06/18/23 03/29/25 Evy Kaufman FNP-C [address] [place] [address] PCP - General Nurse Practitioner 03/30/25 documented as of this encounter
--- OUTSIDE RECORDS SUMMARY | 2025-06-23 14:21 | XMS_ITS | CCD ---
Author Organization [facility] Care Team Providers Care Decator Operator Name Role Phone ELTAHAWY, EHAB A Admitting Unavailable ELTAHAWY, EHAB A Attending Unavailable UNKNOWN, PHYSICIAN Referring Unavailable UNKNOWN, PHYSICIAN Primary Care Unavailable ARACELI SANDHU Admitting Unava ilable ARACELI SANDHU Attending Unava ilable UNKNOWN, PHYSICIAN Referring Unavailable UNKNOWN, PHYSICIAN Primary Care Unavailable Charles Landeros MD Primary Care Provider Emmanuel RESISTOR TESTING MACHINE OPERATOR.SLATE CUTTER OPERATOR, Samantha Unavailable Reginald Aragon MD Unavailable Charles Landeros MD Primary Care Provider Emmanuel RESISTOR TESTING MACHINE OPERATOR.SLATE CUTTER OPERATOR, Samantha Unavailable Reginald Aragon MD Unavailable [phone] Charles Landeros MD Primary Care Provider Emmanuel RESISTOR TESTING MACHINE OPERATOR.CHETNA, Samantha Unavailable Reginald Aragon MD Unavailable TIGRE, DR CHARLES Keith Admitting Unavailable [...] Unavailable MITCHEL WARREN Attending Unavailable TIGRE, DR CHARLES Keith Primary Care Unavailable MITCHEL WARREN Unavailable Tigre DORSEY, Charels Gordon Primary Care Provider REGINALD ARAGON Referring Unavailable REGINALD ARAGON Attending Unavailable TIGRE, CHARLES GORDON Primary Care Unavailable REGINALD ARAGON Referring Unavailable TIGRE, CHARLES GORDON Primary Care Unavailable REGINALD ARAGON Referring Unavailable REGINALD ARAGON Attending Unavailable CHARLES LANDEROS EDDELICIA Primary Care Unavailable TIGRE, CHARLES PRASHANTDELICIA Primary Care Unavailable REGINALD ARAGON Referring Unavailable Con DRILL RUNNER HELPER, Oh Unavailable Ishan Reyez MD Primary Care Provider Con, MINERALOGY TEACHER Oh L Attending Unavailable Con, MINERALOGY TEACHER Oh L Attending Unavailable Con, MINERALOGY TEACHER Oh L Attending Unavailable Con, MINERALOGY TEACHER Oh L Attending Unavailable Con, MINERALOGY TEACHER Oh L Attending Unavailable Con, MINERALOGY TEACHER Oh L Attending Unavailable KAUSHALDEANN Attending Unavailable JIM LOMBARDI Attending Unavailable BRIAN GIL Referring Unavailable CON, OH L Primary Care Unavailable CON, OH L Referring Unavailable CON, OH L Primary Care Unavailable DAISYROSA DE LOS SANTOS Referring Unavailable CON, OH L Primary Care Unavailable CON, OH L Referring Unavailable CON, OH L Primary Care Unavailable Con Oh MITCHELL L Primary Care Provider RENEE SABILLON Attending Unavailable ROSA LYON Attending Unavailable ROSA LYON Attending Unavailable BRIAN GIL Attending Unavailable ROSA LYON Attending Unavailable ROSA LYON Attending Unavailable ROSA LYON Attending Unavailable CON, OH L Referring Unavailable CON, OH L Primary Care Unavailable Inderjit Cha Attending Unavailab Inderjit Hughes Admitting Unavailab Charles Rain Primary Care Unavailable Allergies Allergy Classification Reported Allergen(s) Allergy Type Date of Onset Reaction(s) Facility (3 sources) Penicillin; Translations: [penicillin] Drug Allergy 01-17-[address] [facility] Repository (6 sources) Sulfonamides (Antibiotic); Translations: [SULFA (SULFONAMIDE ANTIBIOTICS)] Drug allergy (disorder) 01-28-[address] [facility] Repository (16 sources) bacitracin / neomycin / polymyxin b; Translations: [NEOMYCIN-BACITRAC IN-POLYMYXIN] Drug Allergy 05-06-20 19 Rash [facility] (17 sources) Clarithromycin; Translations: [CLARITHROMYCIN] Drug Allergy 01-28-20 10 Unknown, Other (See Comments) [facility] (16 sources) Estrogens, Conjugated (DETENTION); Translations: [CONJUGATED ESTROGENS] Drug Allergy 01-28-20 10 Unknown [facility] (14 sources) PACLitaxel; Translations: [PACLITAXEL] Drug Allergy 08-24-20 Other: See Comments, Other (See Comments) [facility] (16 sources) peanut allergenic extract; Translations: [PEANUT] Drug Allergy 05-06-20 Anaphylaxis [facility] (5 sources) Penicillins; Translations: [PENICILLINS] Drug Allergy 05-06-20 19 Rash [facility] (18 sources) Sulfonamides (Antibiotic) Drug Allergy 01-28-20 10 Unknown, Other (See Comments) [facility] (9 sources) Penicillins Drug Allergy 05-06-20 [facility] (8 sources) Bacitracin / Polymyxin B; Translations: [BACITRACIN-POLYMY NIRMAL B] Drug Allergy 02-10-20 [facility] (6 sources) Clarithromycin Propensity to adverse reactions 02-10-20 [facility] (6 sources) PACLitaxel Drug Allergy 02-10-20 [facility] (6 sources) Peanut oil Propensity to adverse reactions 02-10-20 [facility] (6 sources) Penicillins Propensity to adverse reactions 02-10-20 [facility] (6 sources) Conjugated Estrogens Propensity to adverse reactions 02-10-20 [facility] (6 sources) Peanut-Containing Drug Products Propensity to adverse reactions 02-10-20 [facility] (7 sources) Flavoring Agent; Translations: [FLAVORING AGENT] Drug Allergy 03-30-20 Other (See Comments) [facility] (4 sources) Shellfish-Derived Products Drug Allergy 03-30-20 [facility] (5 sources) Bacitracin; Translations: [bacitracin] Drug Allergy 05-16-20 [facility] Repository (1 source) peanut; Translations: [Peanuts] Food allergy (disorder) [facility] Repository (1 source) Peanut butter; Translations: [Peanut butter] Food allergy (disorder) [facility] Repository (6 sources) Shrimp product; Translations: [Shrimp] Food allergy (disorder) 05-07-20 [facility] Repository (1 source) Sulfonamides (Antibiotic); Translations: [sulfa drugs] Propensity to adverse reactions (disorder) [facility] Repository (7 sources) Pineapple; Translations: [Pineapple] Food allergy (disorder) 05-07-20 [facility] Repository (2 sources) Penicillins Propensity to adverse reactions to drug 05-06-20 Rash [facility] (3 sources) Neomycin; Translations: [NEOMYCIN SULFATE] Drug Allergy 04-25-20 [facility] (3 sources) Polymyxin B; Translations: [POLYMYXIN B] Drug Allergy 04-25-20 [facility] (1 source) Bromelains; Translations: [BROMELAINS] Drug Allergy 04-25-20 [facility] Rep[facility] (3 sources) Estrogens, Conjugated (DETENTION); Translations: [ESTROGENS, CONJUGATED] Drug Allergy 05-16-20 [facility] Repository (1 source) Clarithromycin Drug Allergy 05-16-20 [facility] Repository (1 source) Fish Oils Drug Allergy 06-12-20 [facility] Rep[facility] (1 source) Neomycin Drug Allergy 05-16-20 [facility] (1 source) PACLitaxel Drug Allergy 05-16-20 [facility] (1 source) peanut allergenic extract Drug Allergy 05-16-20 [facility] (1 source) Penicillins Drug allergy (disorder) 06-12-20 [facility] (1 source) Sulfacetamide Drug Allergy 06-12-20 [facility] (1 source) Sulfonamides (Antibiotic) Drug allergy (disorder) 05-16-20 [facility] Rep[facility] (1 source) Sulfur Drug Allergy 06-12-20 [facility] Rep[facility] (1 source) tree nut, unspecified Drug allergy (disorder) 06-12-20 [facility] Rep[facility] (1 source) polymyxin B Drug allergy (disorder) 05-16-20 [facility] Repository Medications Current Medications Medication Drug Class(es) [...] 1 tablet by zohreh th once daily. [id number] 200 actuat albuterol 0.09 mg/actuat metered dose inhaler (18 sources) beta2-Adrenergic Agonist take 1 puff(s) by inhalation every four hours albuterol HFA 90 mcg/act inhaler Inhale 1 puff every 4 (four) hours if needed Active take 2 puff(s) by in halation every six hours as needed for wheezing albuterol (PROVENTIL HFA;VENTOLIN HFA) 9 0 mcg/actuation inhaler Inhale 2 puffs every 6 (six) hours as needed for wheezing. Active Comment on above: Inhale 2 Puffs as in structed every 6 hours as needed. albuterol 0.833 mg/ml / ipratropium bromide 0.167 mg/ml inhalation solution (18 sources) Anticholinergic, beta2-Adrenergic Agonist Start: 0 take 1 dose by inhalation four times daily ipratropium-albute rol (DUONEB) 0.5 mg-3 mg(2.5 mg base)/3 mL nebu INHALE THE CONTENTS OF 1 VIAL THROUGH NEBULIZER QID 02/27/2020 Active ipratropium-albu terol (Duo-Neb) 0.5-2.5 mg/3 mL nebulizer solution Take 3 mL by nebulization every 6 (six) hours Active ipratropium-albu terol (DUO-NEB) 0.5 mg-3 mg(2.5 mg base)/3 mL nebulizer Inhale 3 mL by nebulization as needed for shortness of breath or wheezing. Active take 3 mL by inhalat ion five times daily ipratropium-albuterol (DUO-NEB) 0.5 mg-3 mg(2.5 mg base)/3 mL nebulizer Inhale 3 mL by nebulization 5 (five) times a day. Active Comment on above: INHALE THE CONTENTS OF 1 VIAL THROUGH NEBULIZER QID apixaban 5 mg oral tablet (18 sources) Factor Xa Inhibitor Start: 03-17-20 19 take 1 tablet by mouth twice daily ELIQUIS 5 mg tab(s) Take 5 mg by mouth twice daily. 03/17/2019 Active Comment on above: Take 5 mg by mouth t wice daily. ARIPiprazole 15 mg oral tablet (8 sources) Atypical Antipsychotic take 1 tablet by mouth once daily ARIPiprazole (Abilify) 15 MG tablet Take 15 mg by mouth Daily 1 1/2 tablet Active Comment on above: Take 15 mg by mouth once daily. atorvastatin 40 mg oral tablet (18 sources) HMG-CoA Reductase Inhibitor Start: 01-17-20 19 atorvastatin (LIPITOR) 40 mg tablet Take 40 mg by mouth as directed. Takes 80mg in the AM and 40mg in the Pm 3 01/16/2019 Active Comment on above: Take 40 mg by mouth once daily. 1 ml benralizumab 30 mg/ml auto-injector (18 sources) Interleukin-5 Receptor alpha-directed Cytolytic Antibody Start: 02-22-20 21 benralizumab (FASENRA PEN) 30 mg/mL auto-injector 1 mL (30 mg total) every 60 (sixty) days. 02/21/2021 Active Start: 02-21-2021 FASENRA PEN 30 mg/mL 02/21/2021 Active benralizumab (Fa senra Pen) 30 MG/ML injection Inject 30 mg under the skin Active brexpiprazole 2 mg oral tablet (6 sources) Atypical Antipsychotic Start: 04-08-2025 take 1 tablet by mouth in the morning REXULTI 2 mg tablet Take 1 tablet (2 mg total) by mouth in the morning. 04/08/2025 Active Start: 07-23-2024 Rexulti 0.5 MG tablet 0.5 mg 07/23/2024 Active cholecalciferol 0.05 mg oral capsule (18 sources) Vitamin D Start: 03-01-2019 VITAMIN D-3 2, 000 unit cap 2,000 Units once daily. 5 03/01/2019 Active take 2 tablets by mouth in the m orning cholecalciferol (VITAMIN D3) 1,000 units tablet Take 2 tablets (2,000 Units total) by mouth in the morning. Active Comment on above: 2,000 Units once linda ly. dapagliflozin 5 mg oral tablet (18 sources) Sodium-Glucose Cotransporter 2 Inhibitor Start: 11-30-2020 dapagliflozin (FARXIGA) 5 mg tablet 1 tablet (5 mg total) in the morning. 11/30/2020 Active Start: 11-30-2020 take 2 tablets by mo ut once daily FARXIGA 5 mg tablet Take 10 mg by mouth once daily. 11/30/2020 Active Comment on above: Take 10 mg by mouth once daily. fluticasone propionate 0.05 mg/actuat metered dose nasal spray (18 sources) Corticosteroid Start: 02-26-2019 fluticasone (FLONASE) 50 mcg/actuation nasal spray 2 Sprays once daily. 0 02/26/2019 Active take 1 spray(s) nasal route once daily fluticasone (Flonase) 50 MCG/ACT nasal spray Administer 1 spray into each nostril Daily Active take 2 spray(s) nasa l route in the morning fluticasone propionate (FLONASE) 50 mcg/actuation nasal spray Administer 2 sprays into each nostril in the morning. Active Comment on above: 2 Sprays once daily. 60 actuat fluticasone propionate 0.5 mg/actuat / salmeterol 0.05 mg/actuat dry powder inhaler (18 sources) Corticosteroid, beta2-Adrenergic Agonist Start: 03-03-2019 ADVAIR DISKUS 500-50 mcg/dose dsdv 1 Puff twice daily. 5 03/03/2019 Active Fluticasone-Salm eterol (Advair Diskus) 500-50 MCG/ACT aerosol powder Inhale Active take 1 puff(s) by in halation in the morning fluticasone propion-salmeterol (ADVAIR) 500-50 mcg/dose DISKUS Inhale 1 puff in the morning and 1 puff before bedtime. Active Comment on above: 1 Puff twice daily. 30 actuat fluticasone furoate 0.1 mg/actuat / vilanterol 0.025 mg/actuat dry powder inhaler (7 sources) Corticosteroid, beta2-Adrenergic Agonist Start: 01-12-2025 take [...] morning. Active furosemide 20 mg oral tablet (18 sources) Loop Diuretic Start: 08-19-2023 take 2 [...] Start: 01-16-2019 take 3 tablets by mo [facility] once daily furosemide (LASIX) 20 mg [...] once daily. loratadine 10 mg oral tablet (18 sources) Start: 05-19-2019 take 1 tablet by mouth once daily loratadine (CLARITIN) 10 mg tablet Take 10 mg by mouth once daily. 0 05/19/2019 Active Comment on above: Take 10 mg by mouth once daily. losartan potassium 50 mg oral tablet (18 sources) Angiotensin 2 Receptor Amber Start: 03-13-2019 take 1 tablet by mouth once daily losartan (COZAAR) 100 mg tablet Take 100 mg by mouth once daily. 3 03/13/2019 Active Start: 03-13-2019 take 1 tablet by zohreh once daily losartan (COZAAR) 50 mg tablet Take 50 mg by mouth once daily. 3 03/13/2019 Active take 2 tablets by mo [facility] once daily losartan (Cozaar) 50 MG tablet Take 100 mg by mouth Daily Active Comment on above: Take 100 mg by mouth once daily. metFORMIN hydrochloride 500 mg oral tablet (18 sources) Biguanide Start: 0 take 1 tablet [...] BID metoprolol tartrate 100 mg oral tablet (18 sources) beta-Adrenergic Amber Start: 06-18-2023 take 1 [...] a day. montelukast 10 mg oral tablet (18 sources) Leukotriene Receptor Antagonist Start: 0 take [...] AFFECTED AREA ondansetron 8 mg oral tablet (18 sources) Serotonin-3 Receptor Antagonist Start: 9 take [...] pantoprazole 40 mg delayed release oral tablet (18 sources) Proton Pump Inhibitor take 1 tablet by mouth in the morning pantoprazole (ProtoNix) 40 MG EC tablet Take 40 mg by mouth in the morning. Active Comment on above: Take 40 mg by mouth once daily. potassium chloride 20 meq extended release oral tablet (20 sources) Start: 04-20-20 22 End: 10-11-19 23 take 2 tablets by mouth once daily potassium chloride 20 mEq TbER TAKE 2 TABLETS BY MOUTH EVERY DAY 180 tablet 10/11/2022 Active Start: 12-04-2021 take 2 tablets by [facility] once daily potassium chloride 20 mEq TbER TAKE 2 TABLETS BY MOUTH EVERY DAY 180 tablet 0 12/04/2021 Active Start: 02-16-2021 take 2 tablets by [facility] once daily potassium chloride ER (K-DUR, KLOR-CON) 20 mEq tablet Take 2 tablets by mouth once daily. 180 tablet 1 02/16/2021 Active potassium chlori de (Klor-Con) 20 MEQ packet 1 (one) time each day at the same time Active take 1 tablet by zohreh in the morning potassium chloride (KLOR-CON M 20) 20 MEQ CR tablet Take 1 tablet (20 mEq total) by mouth in the morning and 1 tablet (20 mEq total) before bedtime. Active Comment on above: Take 2 tablets by mo ut once daily. TAKE 2 TABLETS BY MO [facility] EVERY DAY predniSONE 10 mg oral tablet (18 sources) Start: 05-02-2020 take 3 tablets by mouth once daily in the morning predniSONE (DELTASONE) 10 mg tablet TK 3 TS PO QAM FOR 3 DAYS FOR ASTHMA FLARE 05/02/2020 Active predniSONE (Delt asone) 10 MG tablet Take 10 mg by mouth 3 po qam for 3 days Active take 1 tablet by mouth in the mo rning predniSONE (DELTASONE) 20 mg tablet Take 1 tablet (20 mg total) by mouth in the morning. Active Comment on above: TK 3 TS PO QAM FOR 3 DAYS FOR ASTHMA FLARE prochlorperazine 10 mg oral tablet (12 sources) Phenothiazine Start: 2018 take 1 tablet by mouth every six hours as needed prochlorperazine (COMPAZINE) 10 mg tablet Take 1 tablet by mouth every 6 hours as needed. 30 tablet 2 04/27/2019 Active Comment on above: Take 1 tablet by [facility] every 6 hours as needed. sertraline 50 mg oral tablet (18 sources) Serotonin Reuptake Inhibitor Start: 2018 take [...] twice daily spironolactone 25 mg oral tablet (9 sources) Aldosterone Antagonist Start: 2022 End: 2025 take 1 tablet by mouth once daily spironolactone (Aldactone) 25 MG tablet Take 25 mg by mouth Daily 08/20/2023 Active Comment on above: Take 25 mg by mouth once daily. 60 actuat tiotropium 0.17269 mg/actuat inhalation spray (18 sources) Anticholinergic Start: 2018 take 1.25 ug by inhalation once daily SPIRIVA RESPIMAT 1.25 mcg/actuation mist Inhale 2 Puffs as instructed once daily. 12 03/12/2019 Active tiotropium (Spir ita Respimat) 1.25 MCG/ACT inhaler Inhale 2 puffs Daily Active take 2 puff(s) by inhalation onc e daily tiotropium bromide 1.25 mcg/actuation mist Inhale 2 puffs daily. 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; Translations: [Malignant neoplasm of overlapping sites of right female breast] Onset: 04-20-2019 Chronic Cardiac dysrhythmias (6 sources) Paroxysmal atrial fibrillation; Translations: [Paroxysmal atrial fibrillation] Onset: 12-08-2021 03-30-2025 Chronic Chronic kidney disease (3 sources) Chronic kidney disease, unspecified; Translations: [Chronic kidney disease stage 3B ] Onset: 05-05-2024 05-06-2025 Chronic Congestive heart failure; nonhypertensive (11 sources) Chronic heart failure co-occurrent with normal ejection fraction; Translations: [Chronic diastolic (congestive) heart failure] Onset: 06-18-2023 03-30-2025 Chronic Coronary atherosclerosis and other heart disease (7 sources) Old myocardial infarction; Translations: [History of acute ST segment elevation myocardial infarction] Onset: 01-09-2019 03-30-2025 Chronic Deficiency and other anemia (9 sources) Iron deficiency anemia; Translations: [Other iron deficiency anemias] Onset: 06-17-2019 Episodic Developmental disorders (4 sources) Intellectual disability; Translations: [Unspecified intellectual disabilities] Onset: 03-30-2025 03-30-2025 Chronic Diabetes mellitus without complication (6 sources) Type 2 diabetes mellitus without complications; Translations: [Type 1 diabetes mellitus] Onset: 01-09-2019 03-30-2025 Chronic Diseases of white blood cells (4 sources) Familial eosinophilia; Translations: [Peripheral eosinophilia] Onset: 03-30-2025 03-30-2025 Chronic Disorders of lipid metabolism (1 source) Hyperlipidemia, unspecified; Translations: [Hyperlipidemia, unspecified] Onset: 05-05-2024 Chronic Esophageal disorders (5 sources) Gastro-esophageal reflux disease without esophagitis; Translations: [Gastroesophageal reflux disease] Onset: 01-09-2019 03-30-2025 Chronic Essential hypertension (5 sources) Essential (primary) hypertension; Translations: [Hypertensive disorder] Onset: 01-09-2019 03-30-2025 Chronic Hypertension with complications and secondary hypertension (2 sources) Hypertensive heart disease with heart failure; Translations: [Hypertensive heart disease with heart failure] Onset: 09-09-2024 Chronic Inflammation; infection of eye (except that caused by tuberculosis or sexually transmitteddisease) (4 sources) Allergic conjunctivitis of bilateral eyes; Translations: [Acute atopic conjunctivitis, bilateral] Onset: 03-30-2025 03-30-2025 Episodic Nutritional deficiencies (4 sources) Vitamin D deficiency; Translations: [Vitamin D deficiency, unspecified] Onset: 03-30-2025 03-30-2025 Chronic Osteoarthritis (1 source) Unspecified osteoarthritis, unspecified site; Translations: [UNSPECIFIED OSTEOARTHRITIS UNS SITE] Onset: 07-25-2022 Chronic Other aftercare (1 source) Other microgrinder operator (current) drug therapy; Translations: [OTH NURSING HOME CURRENT DRUG THERAPY] Onset: 07-25-2022 Episodic Other [...] Chronic Other nutritional; endocrine; and metabolic disorders (4 sources) Body mass index 30+ - obesity; Translations: [Body mass index (BMI) 38.0-38.9, adult] Onset: 03-30-2025 03-30-2025 Chronic Other nutritional; endocrine; and metabolic disorders (4 sources) Morbid obesity; Translations: [Morbid (severe) obesity due to excess calories] Onset: 09-17-2023 03-30-2025 Chronic Other nutritional; endocrine; and metabolic disorders (2 sources) Obesity, unspecified; Translations: [Obesity, unspecified] Onset: 02-24-2025 Chronic Other nutritional; endocrine; and metabolic disorders (1 source) History of iron deficiency; Translations: [Personal history of other endocrine, nutritional and metabolic disease] Episodic Other upper respiratory disease (4 sources) Allergic rhinitis; Translations: [Allergic rhinitis, unspecified] Onset: 03-30-2025 03-30-2025 Chronic Other upper respiratory infections (4 sources) Sinusitis; Translations: [Chronic sinusitis, unspecified] Onset: [...] unspecified; Translations: [Edema, unspecified] Onset: 03-30-2025 Episodic Residual codes; unclassified (1 source) Pain, unspecified; Translations: [Pain, unspecified] Onset: 06-04-2025 Episodic Respiratory failure; insufficiency; arrest (adult) (4 sources) Chronic respiratory failure; Translations: [Chronic respiratory failure, unspecified whether with hypoxia or hypercapnia] Onset: 09-17-2023 03-30-2025 Chronic Schizophrenia and other psychotic disorders (6 sources) Psychotic disorder; Translations: [Unspecified psychosis not [...] 06-17-2019 06-17-2019 Episodic Fluid and electrolyte disorders (4 sources) Disorder of fluid AND/OR electrolyte; Translations: [Other disorders of electrolyte and fluid balance, not elsewhere classified] Onset: 09-17-2023 03-30-2025 Episodic Other aftercare (4 sources) Long-term 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 steroid; Translations: [statue maker (current) use of inhaled steroids] Onset: 09-17-2023 03-30-2025 Episodic Residual codes; unclassified (2 sources) Estrogen receptor negative status [ER-]; Translations: [ESTROGEN RECEPTOR NEGATIVE STATUS] Onset: 04-20-2019 Episodic Residual codes; unclassified (6 sources) Altered mental status; Translations: [Altered mental status, unspecified] Onset: 02-10-2024 02-10-2024 Episodic Residual codes; unclassified (6 sources) Hallucinations; Translations: [Hallucinations, unspecified] Onset: 02-10-2024 02-10-2024 Episodic Respiratory failure; insufficiency; arrest (adult) (4 sources) Acute hypoxemic respiratory failure; Translations: [Acute respiratory failure with hypoxia] Onset: 01-09-2019 03-30-2025 Episodic Unclassified (1 source) COUGH, UNSPECIFIED; Translations: [COUGH, UNSPECIFIED] Onset: 07-23-2022 Results Test Name Value Interpretation Reference Range Facility [id number] 36 Caregiver informed Jarrell prajapati [facility] 36on 05-13-2025 36 Ok, then please mora anaya her medication list. I reviewed nephrology's recent note, will continue current dose of losartan 50mg daily. Thanks [facility] 36 Thank you! [facility] 36 Regarding lab result s from 05/11/2025: CHETNA Roberto MA Please have her reduce her losartan to 50mg daily , repeat BMP in 1 month. Does she have a nephrology appt coming up? Spoke to patients caregiver Gricel, Advised Gricel of recommendation to reduce losartan and follow up lab work. Gricel verbalized understanding and will advise visiting nurse of the reduction in the losartan. Gricel Lott seen Nephrology at [facility] Dr. Reynolds on 05/06. Office note is in patients chart. [facility] Orders Onlyon 05-13-2025 Orders Only [id number] Kaylie Salomon A 1950 F Date Provider Department Center 05/13/2025 [id number] BANKS AFUA Hardin Family History Problem Relation Age of Onset Heart failure Mother Family Status - Relation Status Age at Mother Father [facility] [id number] 36 Regarding lab result s from 05/11/2025: CHETNA Roberto MA Please have her reduce her losartan to 50mg daily , repeat BMP in 1 month. Does she have a nephrology appt coming up? [facility] Office Visiton 05-11-2025 Follow-up visit [id number] Kaylie Salomon A 1950 F Date Provider Department Center 05/11/2025 BRIAN DIXON Family History Problem Relation Age of Onset Heart failure Mother Family Status - Relation Status Age at Mother Father Level of Service:06044 AL OFFICE/OUTPATIENT ESTABLISHED LOW MDM 20 MIN [facility] 36on 05-05-2025 36 Pt caregiver was informed [facility] 36 Yes, bambi chilowillie. Thanks [facility] 36on 05-04-2025 36 Please have her hold her bumex for 2 days then resume at 80mg in the AM, 40mg in the PM. Recheck BMP in 1 week. And can we check if she has a nephro appt scheduled please and thank you! [facility] 36 [facility] lab just called to report critical BUN of 87 and BNP of 2083. Also, she was unable to complete PFT's today, and the previous time they were ordered she wasn't able to do them either. FYI [facility] Orders Onlyon 04-26-2025 Orders Only [id number] Kaylie Salomon 1950 Date Provider Department Center 04/26/2025 [id number], MARLEN Hardin Family History Problem Relation Age of Onset Heart failure Mother Family Status - Relation Status Age at Mother Father [facility] 37on 04-22-2025 37 *EKG today shows you [...] a.fib/flutter. 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 *Continue to limit your fluids to 2L a day along with eating a low sodium diet. *Continue to monitor daily weights and monitor BP and HR daily. [facility] Office Visiton 04-22-2025 Follow-up visit [id number] Kaylie Salomon 1950 Date Provider Department Center 04/22/2025 ROSA LÓPEZ Family History Problem Relation Age of Onset Heart failure Mother Family Status - Relation Status Age at Mother Father Level of Service:26284 AL OFFICE/OUTPATIENT ESTABLISHED MOD MDM 30 MIN [facility] 36on 04-20-2025 36 Any chance they can add on a BNP? [facility] 36 Do we have the rest of her labs? [facility] 36 [facility] lab called to report a critical BUN of 89. [facility] Telephoneon 04-20-2025 Telephone [id number] TishjeffNunu schumacherKaylie A 1950 F Date Provider Department Center 04/20/2025 CassiaRADHA JARA AFUA Hardin Family History Problem Relation Age of Onset Heart failure Mother Family Status - Relation Status Age at Mother Father [facility] Ambulatory Visit Summaryon 0 04-06-2025 Ambulatory Visit Summary Ambulatory Visit Summary KAYLIE SALOMON :1950 Visit Date:04/06/2025 Ambulatory Visit Instructions Your [...] tablet) fluticasone nasal (fluticasone Nasal 0.05 mg/inh [place]) fluticasone-vilanterol (Breo Ellipta 100 mcg-25 mcg inhalation [...] 1:20 PM EST With: Oh Wynne Where: [address] [id number] 11:00 AM EDT With: Where: [address] [address]- Medications What How Much When Why Instructions [...] fluticasone nasal (fluticasone Nasal 0.05 mg/ inh [place]) See instructions INSTILL 2 SPRAYS INTO EACH [...] penicillin (U (more content not included)... Normal [facility] Family Medicine Office/Clini c Noteon 04-06-2025 Family [...] BID, # 180 tab(s), Refills(s) 0, Pharmacy: [facility][id number], 164, cm, 03/04/25 11:49:00 EDT, Height/Length Dosing, 122.2, kg, 03/04/25 11:49:00 EDT, Weight Dosing Follow-up No qualifying data available Problem List/Past Medical History Ongoing (HFpEF) heart failure with preserved ejection fraction Allergic rhinitis Chronic respiratory failure with hypoxia Coronary arteriosclerosis in [place] artery Decreased ambulation status Drooling Food allergy Gastroesophageal reflux disease Generalized weakness History of breast cancer Hyperlipidemia due to type 2 diabetes mellitus Hypertensive disorder 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 Hypoxemia Iron deficiency anemia secondary to inadequate dietary iron intake 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 Normal [facility] Comment on above: Result Comment: Elec tronically Signed By: Oh Wynne\.jai\Date and Time Signed: 04/06/25 15:31 EDT 37on [...] 2L a day *Limit sodium intake Normal [facility] Office Visiton 03-30-2025 Follow-up visit [id number] Kaylie Salomon 1950 Provider Department Center 03/30/2025 ROSA LÓPEZ Family History Problem Relation Age of Onset Heart failure Mother Family Status - Relation Status Age at Mother Father Level of Service:05138 AL OFFICE/OUTPATIENT ESTABLISHED MOD MDM [address] [facility] Orders Onlyon 03-30-2025 Orders Only [id number] Kaylie Salomon 1950 Provider Department Center 03/30/2025 [id number], MARLEN Hardin Family History Problem Relation Age of Onset Heart failure Mother Family Status - Relation Status Age at Mother Father Normal [facility] 36on 03-26-2025 36 PT COMING IN MARCH [address] [facility] Auditory function testson Bilateral Mild slopi ng [...] [facility] Orders Onlyon 03-05-2025 Orders Only [id number] Kaylie Salomon 1950 Date Provider Department Center 03/05/2025 [id number] [facility] Family History Problem Relation Age of Onset Heart failure Mother Family Status - Relation Status Age at Mother Father Normal [facility] Ambulatory Visit Summaryon 0 03-04-2025 Ambulatory Visit [...] Oh Wynne This Is Your Medications List [facility] Prescription (rollator walker) Oxygen (Oxygen - for [...] tablet) fluticasone nasal (fluticasone Nasal 0.05 mg/inh [place]) fluticasone-vilanterol (Breo Ellipta 100 mcg-25 mcg inhalation [...] 1:40 PM EDT With: Oh Wynne Where: [address] [address]- Saturday2025 11:00 AM EDT With: Where: [address] [address]- Medications What How Much When Why Instructions [...] fluticasone nasal (fluticasone Nasal 0.05 mg/ inh [place]) See instructions INSTILL 2 SPRAYS INTO EACH [...] DR Tab (more content not included)... Normal [facility] Family Medicine Office/Clini c Noteon 03-04-2025 [...] tripping and/or falling. [place] Advance Directives reviewed, are present at home. [...] Unspecified diastolic (congestive) heart failure) Patient follows [facility], Rosa Lyon NP as directed. Most [...] as d (more content not included)... Normal [facility] Comment on above: Result Comment: Elec tronically Signed By: Oh Wynne\.br\Date and Time Signed: 03/04/25 14:37 EDT\.br\Electronically Co-Signed By: Promise Rojas\.br\Date and Time Co-Signed: 03/04/25 13:04 EDT 36on 02-25-2025 36 Kar Bradford, I add spironolactone for this pt and ordered a BMP for one week. Can you give caregiver a call tomorrow and let her know? Thanks! Patient's caregiver made aware. She will bring her for lab drawn in [address] [facility] Orders Onlyon 02-25-2025 Orders Only [id number] Kaylie Salomon 1950 F Date Provider Department Center 02/25/2025 [id number] Family History Problem Relation Age of Onset Heart failure Mother Family Status - Relation Status Age at Mother Father [facility] Office Visiton 02-24-2025 Follow-up visit [id number] Kaylie Salomon 1950 F Date Provider Department Center 02/24/2025 [id number], ADAM AFUA [facility] Family History Problem Relation Age of Onset Heart failure Mother Family Status - Relation Status Age at Mother Father Level of Service:66023 AL OFFICE/OUTPATIENT ESTABLISHED MOD MDM [address] [facility] Orders Onlyon 02-18-2025 Orders Only [id number] Kaylie Salomon A 1950 F Date Provider Department Center 02/18/2025 [id number], HISTORICAL AFUA [facility] Family History Problem Relation Age of Onset Heart failure Mother Family Status - Relation Status Age at Mother Normal [facility] Ambulatory Visit Summaryon 0 10-06-2024 Ambulatory Visit [...] Oh Wynne This Is Your Medications List [facility] Prescription (chioator walker) albuterol-ipratropium (albuterol-ipratropium Inh Juanis 3 mL UD) apixaban (apixaban 5 mg oral tablet) atorvastatin (atorvastatin 40 mg Tab) benralizumab (Fasenra Pen 30 mg/mL subcutaneous solution) brexpiprazole (Rexulti 0.5 mg oral tablet) cholecalciferol (Vitamin D3 2000 intl units oral Tab) dapagliflozin (dapagliflozin 10 mg oral tablet) fluticasone nasal (fluticasone Nasal 0.05 mg/inh [place]) fluticasone-vilanterol (Breo Ellipta 100 mcg-25 mcg inhalation [...] Appointments 2024 11:00 AM EDT With: Where: [address] [address]- Saturday 1:40 PM EDT With: Oh Wynne Where: [address] [address]- Medications What How Much When Why Instructions [...] fluticasone nasal (fluticasone Nasal 0.05 mg/ inh [place]) See instructions INSTILL 2 SPRAYS INTO EACH [...] rhinitis BMI 40.0-44.9, adult Coronary arteriosclerosis in [place] artery Drooling Gastroesophageal reflux disease History of breast cancer Hyperlipidemia due to type 2 diabetes mellitus Hypertensive disorder Hypoxemia Iron deficiency anemia secondary to inadequate dietary iron intake Limited mobility longterm (current) use of inhaled steroids Lumbosacral spondylosis Major depressive disorder, recurrent episode, moderate (more content not included)... Normal [facility] Family Medicine Office/Clini c Noteon 10-06-2024 Family Medicine Office/Clinic Note Family Medicine Office/Clinic Note HPI Staff Kaylie is a 74 year old female presenting with 6 month f/u Do you have any of the following symptoms? Foot Exam: Eye Exam: Last A1C: Statin: Caregiver states pt had labs last done at [facility]. Caregiver states 2 weeks ago [...] moderate) stable at this time. continue seeing [facility] 3. (HFpEF) heart failure with preserved ejection fraction (I50.30: Unspecified diastolic (congestive) heart failure) pt is followed by [place] [facility] 4. Chronic kidney disease, stage 3b (N18.32: Chronic kidney disease, stage 3b) BMP reviewed 5. BMI 40.0-44.9, adult (Z68.41: Body mass index [BMI] 40.0-44.9, adult) BMI education 6. Non-smoker (Z78.9: Other specified health status) continue not smoking Orders: furosemide, 40 mg = 2 tab(s), Oral, Daily, # 180 tab(s), Refills(s) 4, Pharmacy: [facility] #[id number], 164, cm, 01/09/24 11:44:00 EDT, Height/Length Dosing, 119.9, kg, 01/09/24 11:44:00 EDT, Weight Dosing Follow-up No qualifying data available Problem List/Past Medical History Ongoing (HFpEF) heart failure with preserved ejection fraction Adult BMI 40.0-44.9 kg/sq m Allergic rhinitis BMI 40.0-44.9, adult Coronary arteriosclerosis in [place] artery Drooling Gastroesophageal reflux disease History of breast cancer Hyperlipidemia due to type 2 diabetes mellitus Hypertensive disorder Hypoxemia Iron deficiency anemia secondary to inadequate dietary iron intake 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 Normal [facility] Comment on above: Result Comment: Elec tronically Signed By: Oh Wynne\.br\Date and Time Signed: 10/06/24 12:00 EST Follow-Upon 09-09-2024 Follow-Up [id number] TishjeffNunu schumacherKaylie Ada 1950 F Date Provider Department Center 09/09/2024 ROSA LÓPEZ [facility]ARD [facility] Family History Problem Relation Age of Onset Heart failure Mother Family Status - Relation Status Age at Mother Level of Service:75417 AL OFFICE/OUTPATIENT ESTABLISHED LOW MDM [address] [facility] Ambulatory Visit Summaryon 1 10-04-2023 Ambulatory Visit Summary Ambulatory Visit Summary TISHJEFFCANDICE KAYLIE :1950 Visit Date:08/04/2024 Ambulatory Visit Instructions Your [...] Oh Wynne This Is Your Medications List [facility] Prescription (rollator walker) albuterol-ipratropium (albuterol-ipratropium Inh Juanis 3 mL UD) apixaban (apixaban 5 mg oral tablet) atorvastatin (atorvastatin 40 mg Tab) benralizumab (Fasenra Pen 30 mg/mL subcutaneous solution) brexpiprazole (Rexulti 0.5 mg oral tablet) cholecalciferol (Vitamin D3 2000 intl units oral Tab) dapagliflozin (dapagliflozin 10 mg oral tablet) fluticasone nasal (fluticasone Nasal 0.05 mg/inh [place]) fluticasone-vilanterol (Breo Ellipta 100 mcg-25 mcg inhalation [...] Follow-Up Appointments Saturday 1:40 PM EST With: Con CASTAÑEDA, Oh Fuentes Where: [address] [address] 2024 11:00 AM EDT With: Where: [address] [address]- Medications What How Much When Why Instructions [facility] Prescription (rollator walker) See instructions Limited mobility [...] fluticasone nasal (fluticasone Nasal 0.05 mg/ inh [place]) See instructions INSTILL 2 SPRAYS INTO EACH [...] respiratory failure with hypoxia Coronary arteriosclerosis in [place] artery Drooling Gastroesophageal reflux disease Heart failure, systolic and diastolic History of breast cancer History of recent fall Hyperlipidemia due to type 2 diabetes mellitus Hypertensive disorder Hypertensive heart and 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 Hypoxemia Iron deficiency anemia secondary to inadequate dietary iron intake Limited mobil (more content not included)... Normal [facility] Family Medicine Office/Clini c Noteon 08-04-2024 Family [...] with hypoxia) stable at this time Ordered: Misc Prescription, rollator walker, See Instructions, [...] zev, Topical, BID, 30 gm, Refill(s) 1, [facility] #[id number], 164, cm, 03/08/23 12:17:00 EDT, Height/Length Dosing, 120, kg, 03/08/23 12:17:00 EDT, Weight Dosing Follow-up No qualifying data available Problem List/Past Medical History Ongoing Adult BMI 40.0-44.9 kg/sq m Allergic rhinitis BMI 40.0-44.9, adult Chronic respiratory failure with hypoxia Coronary arteriosclerosis in [place] artery Drooling Gastroesophageal reflux disease Heart failure, systolic and diastolic History of breast cancer History of recent fall Hyperlipidemia due to type 2 diabetes mellitus Hypertensive disorder Hypertensive heart and 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 Hypoxemia Iron deficiency anemia secondary to inadequate dietary iron intake Limited mobility longterm (current) use of inhaled steroids Lumbosacral spondylosis [...] catheterization, Mastecto (more content not included)... Normal [facility] Comment on above: Result Comment: Elec [...] Mammography: *No Oncology Consult Notes located in [facility]. Based on your medical judgment, can you [...] feel free to contact me at extension [phone]. Thank you! Elif Cabrera LPN Clinical [employer] [place] [address] Extension: [phone] [email or web address] Normal [facility] CBC W Auto Differential pane l (Bld)on 07-30-2024 Basophils (Bld) [#/Vol] [facility] Basophils/100 WBC (Bld) 0.1 % [facility] Differential cell count method Nom (Bld) Auto [facility] Eosinophils (Bld) [#/Vol] NINF [facility] Eosinophils/100 WBC (Bld) 0.0 % [facility] Erythrocyte distribution width (RBC) [Ratio] 17.4 % High 11.5 - 15.0 % [facility] Hematocrit (Bld) [Volume fraction] 34.2 % Low 36.0 - 46.0 % [facility] Hemoglobin (Bld) [Mass/Vol] 10.1 g/dL Low 11.5 - 15.5 g/dL [facility] Immature granulocytes (Bld) [#/Vol] 0.03 10*3/uL NINF [facility] Immature granulocytes/100 WBC (Bld) 0.3 % [facility] Interpretation and review of laboratory results Abnormal [facility] Lymphocytes (Bld) [#/Vol] 0.82 10*3/uL Low [facility] Lymphocytes/100 WBC (Bld) 9.0 % [facility] MCH (RBC) [Entitic mass] 26.4 pg 26.0 - 34.0 pg [facility] MCHC (RBC) [Mass/Vol] 29.5 g/dL Low 30.5 - 36.0 g/dL [facility] MCV (RBC) [Entitic vol] 89.5 fL 80.0 - 100.0 fL [facility] Monocytes (Bld) [#/Vol] 1.05 10*3/uL High [facility] Monocytes/100 WBC (Bld) 11.5 % [facility] Neutrophils (Bld) [#/Vol] 7.23 10*3/uL [facility] Neutrophils/100 WBC (Bld) 79.1 % [facility] Nucleated RBC (Bld) [#/Vol] [facility] Nucleated RBC/100 WBC (Bld) [Ratio] 0.0 % /100 WBC [facility] Platelet mean volume (Bld) [Entitic vol] 9.6 fL 9.0 - 12.7 fL [facility] Platelets (Bld) [#/Vol] 290 10*3/uL [facility] RBC (Bld) [#/Vol] 3.82 10*6/uL Low 3.90 - 5.2 0 m/uL [facility] WBC (Bld) [#/Vol] 9.14 10*3/uL [facility] Basophils (Bld) [#/Vol] 10*3/uL Normal <0.[address] [facility] Comment on above: Order Comment: Speci men Type: BLOOD SPECIMEN Ordering Facility: [facility] Address: [address] [place] [address] Performed By: #### 5 7021-8 #### [facility] CLIA [id number] [address] [place] [address] Basophils/100 WBC (Bld) 0.1 % Normal [facility] Comment on above: Order Comment: Speci men Type: BLOOD SPECIMEN Ordering Facility: [facility] Address: [address] [place] [address] Performed By: #### 5 7021-8 #### [facility] CLIA [id number] [address] [place] [address] Differential cell count method Nom (Bld) Auto Normal [facility] Comment on above: Order Comment: Speci men Type: BLOOD SPECIMEN Ordering Facility: [facility] Address: [address] [place] [address] Performed By: #### 5 7021-8 #### [facility] CLIA [id number] [address] [place] [address] Eosinophils (Bld) [#/Vol] 10*3/uL Normal <0.[address] [facility] Comment on above: Order Comment: Speci men Type: BLOOD SPECIMEN Ordering Facility: [facility] Address: [address] [place] [address] Performed By: #### 5 7021-8 #### [facility] CLIA [id number] [address] [place] [address] Eosinophils/100 WBC (Bld) 0.0 % Normal [facility] Comment on above: Order Comment: Speci men Type: BLOOD SPECIMEN Ordering Facility: [facility] Address: [address] [place] [address] Performed By: #### 5 7021-8 #### [facility] CLIA [id number] [address] [place] [address] Erythrocyte distribution width (RBC) [Ratio] 17.4 % High 11.5-15.[address] [facility] Comment on above: Order Comment: Speci men Type: BLOOD SPECIMEN Ordering Facility: [facility] Address: [address] [place] [address] Performed By: #### 5 7021-8 #### [facility] CLIA [id number] [address] [place] [address] Hematocrit (Bld) [Volume fraction] 34.2 % Low 36.0-46.[address] [facility] Comment on above: Order Comment: Speci men Type: BLOOD SPECIMEN Ordering Facility: [facility] Address: [address] [place] [address] Performed By: #### 5 7021-8 #### [facility] CLIA [id number] [address] [place] [address] Hemoglobin (Bld) [Mass/Vol] 10.1 g/dL Low 11.5-15.[address] [facility] Comment on above: Order Comment: Speci men Type: BLOOD SPECIMEN Ordering Facility: [facility] Address: [address] [place] [address] Performed By: #### 5 7021-8 #### [facility] CLIA [id number] [address] [place] [address] Immature granulocytes (Bld) [#/Vol] 0.03 10*3/uL Normal <0.[address] [facility] Comment on above: Order Comment: Speci men Type: BLOOD SPECIMEN Ordering Facility: [facility] Address: [address] [place] [address] Performed By: #### 5 7021-8 #### [facility] CLIA [id number] [address] [place] [address] Immature granulocytes/100 WBC (Bld) 0.3 % Normal [facility] Comment on above: Order Comment: Speci men Type: BLOOD SPECIMEN Ordering Facility: [facility] Address: [address] [place] [address] Performed By: #### 5 7021-8 #### [facility] CLIA [id number] [address] [place] [address] Lymphocytes (Bld) [#/Vol] 0.82 10*3/uL Low 1.00-4.[address] [facility] Comment on above: Order Comment: Speci men Type: BLOOD SPECIMEN Ordering Facility: [facility] Address: [address] [place] [address] Performed By: #### 5 7021-8 #### [facility] CLIA [id number] [address] [place] [address] Lymphocytes/100 WBC (Bld) 9.0 % Normal [facility] Comment on above: Order Comment: Speci men Type: BLOOD SPECIMEN Ordering Facility: [facility] Address: [address] [place] [address] Performed By: #### 5 7021-8 #### [facility] CLIA [id number] [address] [place] [address] MCH (RBC) [Entitic mass] 26.4 pg Normal 26.0-34.[address] [facility] Comment on above: Order Comment: Speci men Type: BLOOD SPECIMEN Ordering Facility: [facility] Address: [address] [place] [address] Performed By: #### 5 7021-8 #### [facility] CLIA [id number] [address] [place] [address] MCHC (RBC) [Mass/Vol] 29.5 g/dL Low 30.5-36.[address] [facility] Comment on above: Order Comment: Speci men Type: BLOOD SPECIMEN Ordering Facility: [facility] Address: [address] [place] [address] Performed By: #### 5 7021-8 #### [facility] CLIA [id number] [address] [place] [address] MCV (RBC) [Entitic vol] 89.5 fL Normal 80.0-100.[address] [facility] Comment on above: Order Comment: Speci men Type: BLOOD SPECIMEN Ordering Facility: [facility] Address: [address] [place] [address] Performed By: #### 5 7021-8 #### [facility] CLIA [id number] [address] [place] [address] Monocytes (Bld) [#/Vol] 1.05 10*3/uL High <0.[address] [facility] Comment on above: Order Comment: Speci men Type: BLOOD SPECIMEN Ordering Facility: [facility] Address: [address] [place] [address] Performed By: #### 5 7021-8 #### [facility] CLIA [id number] [address] [place] [address] Monocytes/100 WBC (Bld) 11.5 % Normal [facility] Comment on above: Order Comment: Speci men Type: BLOOD SPECIMEN Ordering Facility: [facility] Address: [address] [place] [address] Performed By: #### 5 7021-8 #### [facility] CLIA [id number] [address] [place] [address] Neutrophils (Bld) [#/Vol] 7.23 10*3/uL Normal 1.45-7.[address] [facility] Comment on above: Order Comment: Speci men Type: BLOOD SPECIMEN Ordering Facility: [facility] Address: [address] [place] [address] Performed By: #### 5 7021-8 #### [facility] [facility] CLIA [id number] [address] [place] [address] 13710 Neutrophils/100 WBC (Bld) 79.1 % Normal [facility] Comment on above: Order Comment: Speci men Type: BLOOD SPECIMEN Ordering Facility: [facility] Address: [address] [place] [address] Performed By: #### 5 7021-8 #### [facility] CLIA [id number] [address] [place] [address] 81680 Nucleated RBC (Bld) [#/Vol] 10*3/uL Normal <0.[address] [facility] Comment on above: Order Comment: Speci men Type: BLOOD SPECIMEN Ordering Facility: [facility] Address: [address] [place] [address] Performed By: #### 5 7021-8 #### [facility] CLIA [id number] [address] [place] [address] Nucleated RBC/100 WBC (Bld) [Ratio] 0.0 /100 WBC Normal [facility] Comment on above: Order Comment: Speci men Type: BLOOD SPECIMEN Ordering Facility: [facility] Address: [address] [place] [address] Performed By: #### 5 7021-8 #### [facility] CLIA [id number] [address] [place] [address] 97133 Platelet mean volume (Bld) [Entitic vol] 9.6 fL Normal 9.0-12.[address] [facility] Comment on above: Order Comment: Speci men Type: BLOOD SPECIMEN Ordering Facility: [facility] Address: [address] [place] [address] Performed By: #### 5 7021-8 #### [facility] CLIA [id number] [address] [place] [address] 63230 Platelets (Bld) [#/Vol] 290 10*3/uL Normal 150-[address] [facility] Comment on above: Order Comment: Speci men Type: BLOOD SPECIMEN Ordering Facility: [facility] Address: [address] [place] [address] Performed By: #### 5 7021-8 #### [facility] CLIA [id number] [address] [place] [address] 33294 RBC (Bld) [#/Vol] 3.82 10*6/uL Low 3.90-5.20 [facility] Comment on above: Order Comment: Speci men Type: BLOOD SPECIMEN Ordering Facility: [facility] Address: [address] [place] [address] Performed By: #### 5 7021-8 #### [facility] CLIA [id number] [address] [place] [address] 08755 WBC (Bld) [#/Vol] 9.14 10*3/uL Normal 3.70-11.00 [facility] Comment on above: Order Comment: Speci men Type: BLOOD SPECIMEN Ordering Facility: [facility] Address: [address] [place] [address] Performed By: #### 5 7021-8 #### [facility] CLIA [id number] [address] [place] [address] 06757 CNOVSPon 07-30-2024 CNOVSP Visit (SP) Office ([place]) KAYLIE SALOMON ([id number]) 1950 F Date Time Provider Department 07/30/24 2:20 PM REGINALD ARAGON During your visit today, we recorded the following information about you: Temperature Pulse Respiration Blood pressure 97.3 degrees 81/minute 18/minute 96/63 Weight Height 114.3 kg 1.677 m Reginald Aragon MD 07/31/2024 6:27 AM Signed PATIENT NAME: Kaylie Salomon DATE: 07/30/2024 PRIMARY CARE PHYSICIAN: Dr. Landeros OTHER PHYSICIANS: [facility] Ramon Smith, [facility], Dr. Brian Gil (Cardiology [facility]) Portions of this encounter note have been [...] and CHF. She is currently managed by [facility] cardiology (Dr. Gil). Otherwise she has had [...] on 03/14/2023) ALLERGIES: Clarithromycin, Conjugated Estrogens, Neosporin [Pyhfyidw-Ymxultmbzb-F olymyxin], Paclitaxel, Peanut, Penicillins, and Sulfa (Sulfonamide Antibiotics) PAST MEDICAL HISTORY: PAST MEDICAL HISTORY Diagnosis Date AF (atrial fibrillation) ([facility]) Asthma Breast cancer (HCC) 02/[address] Landeros COPD (chronic obstructive pulmonary disease) ([facility]) Edema Hyperlipidemia Hypertension OA (osteoarthritis of spine) Port-A-Cath in place PAST SURGICAL HISTORY: PAST SURGICAL HISTORY Procedure Laterality Date CARDIAC CATH 12/2018 PORTOCATH PLACEMENT REVIEW OF SYSTEMS: General: No weight loss, malaise or fevers. HEENT: Negative for frequent or significant headaches, No changes in hearing or vision, no nose ble (more content not included)... Normal [facility] Cancer Ag27-29 SerPl-aCncon 07-30-2024 Cancer Ag 27-29 Qn 31.0 [arb'U]/mL Normal <38.6 C [facility] Comment on above: Order Comment: Speci men Type: BLOOD SPECIMEN Ordering Facility: [facility] Address: [address] [place] [address] Result Comment: The CA27.29 test was performed using the Siemens Culture Jamaur XP chemiluminometric immunoassay method. Results obtained with different assay methods or kits cannot be used interchangeably. Performed By: #### 1 7842-6 #### [facility] CLIA [id number] [address] [place] [address] [place] [address] [place] Comprehensive metabolic 2000 panelOrdered By: Rosa Elena Yi on 07-30-2024 Albumin [Mass/Vol] 4.0 g/dL 3.9 - 4.9 g/dL [facility] ALP [Catalytic activity/Vol] 95 U/L 34 - 123 U/L [facility] ALT [Catalytic activity/Vol] 19 U/L 7 - 38 U/L [facility] Anion gap [Moles/Vol] 10 mmol/L 8 - 15 mmol/L [facility] AST [Catalytic activity/Vol] 21 U/L 13 - 35 U/L [facility] Bilirubin [Mass/Vol] 0.4 mg/dL 0.2 - 1 .3 mg/dL [facility] Calcium [Mass/Vol] 9.3 mg/dL 8.5 - 10. 2 mg/dL [facility] Chloride [Moles/Vol] 100 mmol/L 98 - 10 7 mmol/L [facility] CO2 [Moles/Vol] 31 mmol/L High 22 - 30 mmol/L [facility] Creatinine [Mass/Vol] 1.41 mg/dL High 0.58 - 0.96 mg/dL [facility] GFR/1.73 sq M.predicted among non-blacks MDRD (S/P/Bld) [Vol rate/Area] 39 mL/min/{1.73_m2} Low - PINF [facility] Comment on above: Estimated Glomerular Filtration Rate [...] [Mass/Vol] 83 mg/dL 74 - 99 mg/dL [facility] Comment on above: The Stateless Diabete s Association (ADA) provides guidance for [...] Standards of Medical Care in Diabetes 2016, Stateless Diabetes Association. Diabetes Care. 2016.39(Suppl 1). Interpretation and review of laboratory results Abnormal [facility] Potassium [Moles/Vol] 4.3 mmol/L 3.7 - 5.1 mmol/L [facility] Protein [Mass/Vol] 7.7 g/dL 6.3 - 8.0 g/dL [facility] Sodium [Moles/Vol] 141 mmol/L 136 - 144 mmol/L [facility] Urea nitrogen [Mass/Vol] 54 mg/dL High 7 - 21 mg/dL [facility] Comprehensive metabolic 2000 panelon 07-30-2024 Albumin [Mass/Vol] 4.0 g/dL Normal 3.9-4.[address] [facility] Comment on above: Order Comment: Jennifer stahl Type: BLOOD SPECIMEN Ordering Facility: [facility] Address: [address] [place] [address] Performed By: #### 2 4323-8 #### [facility] CLIA [id number] [address] [place] [address] 12026 ALP [Catalytic activity/Vol] 95 U/L Normal 34-[address] [facility] Comment on above: Order Comment: Jennifer stahl Type: BLOOD SPECIMEN Ordering Facility: [facility] Address: [address] [place] [address] Performed By: #### 2 4323-8 #### [facility] CLIA [id number] [address] [place] [address] ALT [Catalytic activity/Vol] 19 U/L Normal 7-[address] [facility] Comment on above: Order Comment: Speci men Type: BLOOD SPECIMEN Ordering Facility: [facility] Address: [address] [place] [address] Performed By: #### 2 4323-8 #### [facility] CLIA [id number] [address] [place] [address] Anion gap [Moles/Vol] 10 mmol/L Normal 8-[address] [facility] Comment on above: Order Comment: Speci men Type: BLOOD SPECIMEN Ordering Facility: [facility] Address: [address] [place] [address] Performed By: #### 2 4323-8 #### [facility] CLIA [id number] [address] [place] [address] 06131 AST [Catalytic activity/Vol] 21 U/L Normal 13-[address] [facility] Comment on above: Order Comment: Speci men Type: BLOOD SPECIMEN Ordering Facility: [facility] Address: [address] [place], [place] [address] Performed By: #### 2 4323-8 #### [facility] CLIA [id number] [address] [place] [address] 64637 Bilirubin [Mass/Vol] 0.4 mg/dL Normal 0.2-1.3 [facility] Comment on above: Order Comment: Speci men Type: BLOOD SPECIMEN Ordering Facility: [facility] Address: [address] [place] [address] Performed By: #### 2 4323-8 #### [facility] CLIA [id number] [address] [place] [address] 11915 Calcium [Mass/Vol] 9.3 mg/dL Normal 8.5-10.[address] [facility] Comment on above: Order Comment: Speci men Type: BLOOD SPECIMEN Ordering Facility: [facility] Address: [address] [place] [address] Performed By: #### 2 4323-8 #### [facility] CLIA [id number] [address] [place] [address] Chloride [Moles/Vol] 100 mmol/L Normal 98-107 [facility] Comment on above: Order Comment: Speci men Type: BLOOD SPECIMEN Ordering Facility: [facility] Address: [address] [place] [address] Performed By: #### 2 4323-8 #### [facility] CLIA [id number] [address] [place] [address] 27711 CO2 [Moles/Vol] 31 mmol/L High 22-[address] [facility] Comment on above: Order Comment: Speci men Type: BLOOD SPECIMEN Ordering Facility: [facility] Address: [address] [place] [address] Performed By: #### 2 4323-8 #### [facility] CLIA [id number] [address] [place] [address]131 Creatinine [Mass/Vol] 1.41 mg/dL High 0.58-0.[address] [facility] Comment on above: Order Comment: Speci men Type: BLOOD SPECIMEN Ordering Facility: [facility] Address: [address] [place] [address] Performed By: #### 2 4323-8 #### [facility] CLIA [id number] [address] [place] [address] Creatinine and Glomerular filtration rate.predicted panel (S/P/Bld) 39 mL/min/1.73m??? Low >=[address] [facility] Comment on above: Order Comment: Speci men Type: BLOOD SPECIMEN Ordering Facility: [facility] Address: [address] [place] [address] Result Comment: Violette mated Glomerular Filtration Rate [...] GFR. Performed By: #### 2 4323-8 #### [facility] CLIA [id number] [address] [place] [address]45 Glucose [Mass/Vol] 83 mg/dL Normal 74-[address] [facility] Comment on above: Order Comment: Jennifer stahl Type: BLOOD SPECIMEN Ordering Facility: [facility] Address: [address] [place] [address] Result Comment: The Stateless Diabetes Association (ADA) provides guidance for cutoff [...] Standards of Medical Care in Diabetes 2016, Stateless Diabetes Association. Diabetes Care. 2016.39(Suppl 1). Performed By: #### 2 4323-8 #### [facility] CLIA [id number] [address] [place] [address] Potassium [Moles/Vol] 4.3 mmol/L Normal 3.7-5.[address] [facility] Comment on above: Order Comment: Jennifer stahl Type: BLOOD SPECIMEN Ordering Facility: [facility] Address: [address] [place] [address] Performed By: #### 2 4323-8 #### [facility] CLIA [id number] [address] [place] [address] 90908 Protein [Mass/Vol] 7.7 g/dL Normal 6.3-8.[address] [facility] Comment on above: Order Comment: Jennifer stahl Type: BLOOD SPECIMEN Ordering Facility: [facility] Address: [address] [place] [address] Performed By: #### 2 4323-8 #### [facility] CLIA [id number] [address] [place] [address] Sodium [Moles/Vol] 141 mmol/L Normal 136-[address] [facility] Comment on above: Order Comment: Speci men Type: BLOOD SPECIMEN Ordering Facility: [facility] Address: [address] [place] [address] Performed By: #### 2 4323-8 #### [facility] CLIA [id number] [address] [place] [address] Urea nitrogen [Mass/Vol] 54 mg/dL High 7-[address] [facility] Comment on above: Order Comment: Speci men Type: BLOOD SPECIMEN Ordering Facility: [facility] Address: [address] [place] [address] Performed By: #### 2 4323-8 #### [facility] CLIA [id number] [address] [place] [address] 3706-25-2024 37 *Continue lasix 80mg in the AM and 40mg in the PM *Continue 2L or 64 oz of daily fluid allowance *Continue to monitor daily weights *Have labs done to follow-up on kidney function Normal [facility] Office Visiton 06-25-2024 Follow-up visit [id number] Kaylie Salomon 1950 Date Provider Department [place] 06/25/2024 ROSA LÓPEZ AFUA [facility] Family History Problem Relation Age of Onset Heart failure Mother Family Status - Relation Status Age at Mother Level of Service:30581 [place] OFFICE/OUTPATIENT ESTABLISHED MOD MDM [address] [facility] 37on 06-17-2024 37 *Increase lasix to 80mg (2 tablets of 40mg) BID x3 days then take lasix 80mg in the AM and 40mg in the PM. Can take second dose around 4pm. *Limit fluid intake to 2L a day. *Limit sodium intake to 2L a day Normal [facility] Office Visiton 06-17-2024 Follow-up visit [id number] Kaylie Salomon 1950 F Date Provider Department Center 06/17/2024 ROSA LÓPEZ Mckenzie Lashawn Family History Problem Relation Age of Onset Heart failure Mother Family Status - Relation Status Age at Mother Level of Service:12739 [place] OFFICE/OUTPATIENT ESTABLISHED MOD MDM [address] [facility] Orders Onlyon 06-02-2024 Orders Only [id number] Kaylie Salomon 1950 F Date Provider Department Center 06/02/2024 ELIF ACOSTA [facility] Family History Problem Relation Age of Onset Heart failure Mother Family Status - Relation Status Age at Mother Normal [facility] BASIC METABOLIC PANLon 05-20 Anion gap [Moles/Vol] 10 mmol/L Normal 5-15 [facility] Comment on above: Performed By: #### 3 0934-4 #### [facility] ([id number]) [address] [place] [address] #### BMP #### [facility] ([id number]) [address] [place] [address] Calcium [Mass/Vol] 9.5 mg/dL Normal 8.5-10.5 [facility] Comment on above: Performed By: #### 3 0934-4 #### [facility] ([id number]) [address] [place] [address] 33582 #### BMP #### [facility] ([id number]) [address] [place] [address] Chloride [Moles/Vol] 96 mmol/L Low 98-109 [facility] Comment on above: Performed By: #### 3 0934-4 #### [facility] ([id number]) [address] [place] [address] 11217 #### BMP #### [facility] ([id number]) [address] [place] [address] CO2 [Moles/Vol] 36 mmol/L High 22-32 [facility] Comment on above: Performed By: #### 3 0934-4 #### [facility] ([id number]) [address] [place] [address]602 #### BMP #### [facility] ([id number]) [address], [address] [place] [address] Creatinine [Mass/Vol] 1.35 mg/dL High 0.40-1.00 [facility] Comment on above: Result Comment: METH OD TRACEABLE TO IDMS STANDARD Performed By: #### 3 0934-4 #### [facility] ([id number]) [address] [place] [address] 28505 #### BMP #### [facility] ([id number]) [address], [address] [place] [address] GFR/1.73 sq M.predicted among non-blacks MDRD (S/P/Bld) [Vol rate/Area] 41 mL/min/{1.73_m2} Low >59 [facility] Comment on above: Result Comment: Reported eGFR is based on the CKD-EPI 2020 equation that does not use a race coefficient. Performed By: #### 3 0934-4 #### [facility] ([id number]) [address] [place] [address] 38463 #### BMP #### [facility] ([id number]) [address], [address] [place] [address] Glucose [Mass/Vol] 98 mg/dL Normal 65-99 [facility] Comment on above: Performed By: #### 3 0934-4 #### [facility] ([id number]) [address] [place] [address] 36646 #### BMP #### [facility] ([id number]) [address], [address] [place] [address] Potassium [Moles/Vol] 4.1 mmol/L Normal 3.5-5.0 [facility] Comment on above: Performed By: #### 3 0934-4 #### [facility] ([id number]) [address] [place] [address]8614 #### BMP #### [facility] ([id number]) [address], [address] [place] [address] Sodium [Moles/Vol] 142 mmol/L Normal 134-146 [facility] Comment on above: Performed By: #### 3 0934-4 #### [facility] ([id number]) [address] [place] [address]25 #### BMP #### [facility] ([id number]) [address], [address] [place] [address] Urea nitrogen [Mass/Vol] 30 mg/dL High 5-27 [facility] Comment on above: Performed By: #### 3 0934-4 #### [facility] ([id number]) [address] [place] [address] 49872 #### BMP #### [facility] ([id number]) [address], [address] [place] [address] Natriuretic peptide B [Mass/ Vol]on 05-20-2024 Natriuretic peptide B (Bld) [Mass/Vol] 359 pg/mL High <100.0 [facility] Comment on above: Performed By: #### 3 0934-4 #### [facility] ([id number]) [address] [place] [address]47 #### BMP #### [facility] ([id number]) [address] [place] [address] MICROALBUMIN - ALBUMIN:CREAT ININE URINE RATIOon 05-06-2024 ALB/CREAT RATIO 42.4 mg/g creat High 0.0-30.0 [facility] Comment on above: Performed By: #### M ALBU #### [facility] ([id number]) [address], [address] [place] [address] Albumin DL <= 20 mg/L (U) [Mass/Vol] 0.8 mg/dL Normal 0.0-1.9 [facility] Comment on above: Performed By: #### M ALBU #### [facility] ([id number]) [address] [place] [address] URINE CREAT 18.87 mg/dL Normal [facility] Comment on above: Performed By: #### M ALBU #### [facility] ([id number]) [address] [place] [address] PROTEIN CREAT RATIOon 2023 RANDOM URINE PROTEIN 60 mg/L Normal <120 [facility] Comment on above: Performed By: #### U PCR #### [facility] ([id number]) [address], [address] [place] [address] U/PRO/WET FINISHER WOOL RATIO CALC 0.32 High <0.2 [facility] Comment on above: Result Comment: Neph rotic Syndrome is associated with ratios >3.5 Performed By: #### U PCR #### [facility] ([id number]) [address], [address] [place] [address] URINE CREATININE,RDM 18.77 mg/dL Normal [facility] Comment on above: Performed By: #### U PCR #### [facility] ([id number]) [address] [place] [address] HGB A1C (GLYCO-HGB)on 2023 Glucose [Mass/Vol] 134 mg/dL Normal [facility] Comment on above: Performed By: #### H A1C, 54613-1 #### [facility] ([id number]) [address], [address] [place] [address] HbA1c (Bld) [Mass fraction] 6.3 % High 4.4-5.6 [facility] Comment on above: Result Comment: NOTE ADA Guidelines Result HgbA1c Normal : less than 5.7 % Prediabetes : 5.7 % to 6.4 % Diabetes : > 6.4 % Use with caution in patients with abnormal hemoglobin variants as the half-life of red blood cells and in vivo glycation rates are affected. Performed By: #### H A1C, 35114-4 #### [facility] ([id number]) [facility] [facility], [address] [place] [address] Lipid 1996 panelon 4 Cholesterol [Mass/Vol] 95 mg/dL Low 150-200 [facility] Comment on above: Performed By: #### H A1C, 14992-6 #### [facility] ([id number]) [address] [facility], [address] [place] [address] Cholesterol in HDL [Mass/Vol] 50 mg/dL Normal >39 [facility] Comment on above: Result Comment: HDL <40 mg/dL - High Risk HDL > or = 40mg/dL- Desirable HDL >60 mg/dL - Negative Risk Performed By: #### H A1C, 31430-7 #### [facility] ([id number]) [address] [place] [address] Cholesterol in LDL [Mass/Vol] 30 mg/dL Normal <130 [facility] Comment on above: Result Comment: LDL <100 mg/dL - Desirable LDL >160 mg/dL - High Risk Performed By: #### H A1C, 28733-7 #### [facility] ([id number]) [address], [address] [place] [address] Cholesterol in VLDL [Mass/Vol] 15 mg/dL Normal 0-30 [facility] Comment on above: Performed By: #### H A1C, 30245-6 #### [facility] ([id number]) [address], [address] [place] [address] CHOLESTEROL:HDL 1.9 Normal 1.0-5.0 [facility] Comment on above: Performed By: #### H A1C, 64847-4 #### [facility] ([id number]) [address], [address] [place] [address] Triglyceride [Mass/Vol] 73 mg/dL Normal 27-150 [facility] Comment on above: Performed By: #### H A1C, 98606-8 #### [facility] ([id number]) [address], [address] [place] [address] CBC W Auto Differential pane l (Bld)on 09-12-2023 Basophils (Bld) [#/Vol] 10*3/uL Normal <0.[address] [facility] Comment on above: Order Comment: Speci men Type: BLOOD SPECIMEN Ordering Facility: [facility] Address: [address] [place] [address] Performed By: #### 5 7021-8 #### [facility] CLIA [id number] [address] [place] [address] Basophils/100 WBC (Bld) 0.2 % Normal [facility] Comment on above: Order Comment: Speci men Type: BLOOD SPECIMEN Ordering Facility: [facility] Address: [address] [place] [address] Performed By: #### 5 7021-8 #### [facility] CLIA [id number] [address] [place] [address] [place] [address] Differential cell count method Nom (Bld) Auto Normal [facility] Comment on above: Order Comment: Speci men Type: BLOOD SPECIMEN Ordering Facility: [facility] Address: [address] [place] [address] Performed By: #### 5 7021-8 #### [facility] CLIA [id number] [address] [place] [address] Eosinophils (Bld) [#/Vol] 10*3/uL Normal <0.[address] [facility] Comment on above: Order Comment: Speci men Type: BLOOD SPECIMEN Ordering Facility: [facility] Address: [address] [place] [address] Performed By: #### 5 7021-8 #### [facility] CLIA [id number] [address] [place] [address] 29480 Eosinophils/100 WBC (Bld) 0.0 % Normal [facility] Comment on above: Order Comment: Speci men Type: BLOOD SPECIMEN Ordering Facility: [facility] Address: [address] [place] [address] Performed By: #### 5 7021-8 #### [facility] CLIA [id number] [address] [place] [address] 91135 Erythrocyte distribution width (RBC) [Ratio] 14.5 % Normal 11.5-15.[address] [facility] Comment on above: Order Comment: Speci men Type: BLOOD SPECIMEN Ordering Facility: [facility] Address: [address] [place] [address] Performed By: #### 5 7021-8 #### [facility] CLIA [id number] [address] [place] [address] 67002 Hematocrit (Bld) [Volume fraction] 38.7 % Normal 36.0-46.[address] [facility] Comment on above: Order Comment: Speci men Type: BLOOD SPECIMEN Ordering Facility: [facility] Address: [address] [place] [address] Performed By: #### 5 7021-8 #### [facility] CLIA [id number] [address] [place] [address] 81358 Hemoglobin (Bld) [Mass/Vol] 11.7 g/dL Normal 11.5-15.[address] [facility] Comment on above: Order Comment: Speci men Type: BLOOD SPECIMEN Ordering Facility: [facility] Address: [address] [place] [address] Performed By: #### 5 7021-8 #### [facility] CLIA [id number] [address] [place] [address] 16336 Immature granulocytes (Bld) [#/Vol] 0.03 10*3/uL Normal <0.[address] [facility] Comment on above: Order Comment: Speci men Type: BLOOD SPECIMEN Ordering Facility: [facility] Address: [address] [place] [address] Performed By: #### 5 7021-8 #### [facility] CLIA [id number] [address] [place] [address] 02835 Immature granulocytes/100 WBC (Bld) 0.3 % Normal [facility] Comment on above: Order Comment: Speci men Type: BLOOD SPECIMEN Ordering Facility: [facility] Address: [address] [place] [address] Performed By: #### 5 7021-8 #### [facility] CLIA [id number] [address] [place] [address] 82015 Lymphocytes (Bld) [#/Vol] 1.10 10*3/uL Normal 1.00-4.[address] [facility] Comment on above: Order Comment: Speci men Type: BLOOD SPECIMEN Ordering Facility: [facility] Address: [address] [place] [address] Performed By: #### 5 7021-8 #### [facility] CLIA [id number] [address] [place] [address] 86415 Lymphocytes/100 WBC (Bld) 11.2 % Normal [facility] Comment on above: Order Comment: Speci men Type: BLOOD SPECIMEN Ordering Facility: [facility] Address: [address] [place] [address] Performed By: #### 5 7021-8 #### [facility] CLIA [id number] [address] [place] [address] 13438 MCH (RBC) [Entitic mass] 27.5 pg Normal 26.0-34.[address] [facility] Comment on above: Order Comment: Speci men Type: BLOOD SPECIMEN Ordering Facility: [facility] Address: [address] [place] [address] Performed By: #### 5 7021-8 #### [facility] CLIA [id number] [address] [place] [address] 81344 MCHC (RBC) [Mass/Vol] 30.2 g/dL Low 30.5-36.[address] [facility] Comment on above: Order Comment: Speci men Type: BLOOD SPECIMEN Ordering Facility: [facility] Address: [address] [place] [address] Performed By: #### 5 7021-8 #### [facility] CLIA [id number] [address] [place] [address] 96162 MCV (RBC) [Entitic vol] 91.1 fL Normal 80.0-100.[address] [facility] Comment on above: Order Comment: Speci men Type: BLOOD SPECIMEN Ordering Facility: [facility] Address: [address] [place] [address] Performed By: #### 5 7021-8 #### [facility] CLIA [id number] [address] [place] [address] 82411 Monocytes (Bld) [#/Vol] 0.92 10*3/uL High <0.[address] [facility] Comment on above: Order Comment: Speci men Type: BLOOD SPECIMEN Ordering Facility: [facility] Address: [address] [place] [address] Performed By: #### 5 7021-8 #### [facility] CLIA [id number] [address] [place] [address] 68431 Monocytes/100 WBC (Bld) 9.4 % Normal [facility] Comment on above: Order Comment: Speci men Type: BLOOD SPECIMEN Ordering Facility: [facility] Address: [address] [place] [address] Performed By: #### 5 7021-8 #### [facility] CLIA [id number] [address] [place] [address] 02206 Neutrophils (Bld) [#/Vol] 7.74 10*3/uL High 1.45-7.[address] [facility] Comment on above: Order Comment: Speci men Type: BLOOD SPECIMEN Ordering Facility: [facility] Address: [address] [place] [address] Performed By: #### 5 7021-8 #### [facility] CLIA [id number] [address] [place] [address] 40970 Neutrophils/100 WBC (Bld) 78.9 % Normal [facility] Comment on above: Order Comment: Speci men Type: BLOOD SPECIMEN Ordering Facility: [facility] Address: [address] [place] [address] Performed By: #### 5 7021-8 #### [facility] CLIA [id number] [address] [place] [address] 33469 Nucleated RBC (Bld) [#/Vol] 10*3/uL Normal <0.[address] [facility] Comment on above: Order Comment: Speci men Type: BLOOD SPECIMEN Ordering Facility: [facility] Address: [address] [place] [address] Performed By: #### 5 7021-8 #### [facility] CLIA [id number] [address] [place] [address] 40621 Nucleated RBC/100 WBC (Bld) [Ratio] 0.0 /100 WBC Normal [facility] Comment on above: Order Comment: Speci men Type: BLOOD SPECIMEN Ordering Facility: [facility] Address: [address] [place] [address] Performed By: #### 5 7021-8 #### [facility] CLIA [id number] [address] [place] [address] 41060 Platelet mean volume (Bld) [Entitic vol] 9.4 fL Normal 9.0-12.[address] [facility] Comment on above: Order Comment: Speci men Type: BLOOD SPECIMEN Ordering Facility: [facility] Address: [address] [place] [address] Performed By: #### 5 7021-8 #### [facility] CLIA [id number] [address] [place] [address] 67687 Platelets (Bld) [#/Vol] 279 10*3/uL Normal 150-[address] [facility] Comment on above: Order Comment: Speci men Type: BLOOD SPECIMEN Ordering Facility: [facility] Address: [address] [place] [address] Performed By: #### 5 7021-8 #### [facility] CLIA [id number] [address] [place] [address] 95095 RBC (Bld) [#/Vol] 4.25 10*6/uL Normal 3.90-5.20 [facility] Comment on above: Order Comment: Speci men Type: BLOOD SPECIMEN Ordering Facility: [facility] Address: [address] [place] [address] Performed By: #### 5 7021-8 #### [facility] CLIA [id number] [address] [place] [address] 66300 WBC (Bld) [#/Vol] 9.81 10*3/uL Normal 3.70-11.00 [facility] Comment on above: Order Comment: Speci men Type: BLOOD SPECIMEN Ordering Facility: [facility] Address: [address] [place] [address] Performed By: #### 5 7021-8 #### [facility] CLIA [id number] [address] [place] [address] 96575 CNOVSPon 09-12-2023 CNOVSP Visit (SP) Office ([place]) KAYLIE SALOMON ([id number]) 1950 F Date Time Provider Department 09/12/23 1:15 PM REGINALD ARAGON During your visit today, we recorded the following information about you: Temperature Pulse Respiration Blood pressure 97.7 degrees 88/minute 16/minute 108/67 Weight Height 121.6 kg 1.677 m Reginald Aragon MD 09/12/2023 7:56 PM Signed PATIENT NAME: Kaylie Salomon DATE: 09/12/2023 PRIMARY CARE PHYSICIAN: Dr. Landeros OTHER PHYSICIANS: Dr. Ramon Smith, [facility] XRT Portions of this encounter note have [...] on 03/14/2023) ALLERGIES: Clarithromycin, Conjugated Estrogens, Neosporin [Pvtrughi-Cxlluydbzi-H olymyxin], Paclitaxel, Peanut, Penicillins, and Sulfa (Sulfonamide [...] Skin: Ne (more content not included)... Normal [facility]20[facility] KAYLIE SALOMON ([id number]) 1950 F Date Time Provider Department 09/12/23 CARIN RAMOS During your visit today, we recorded the following information about you: Carin Ramos RN 09/12/2023 1:42 PM Signed BRM/HM: Please sign pended order Orders sent to [facility] PH: [phone] Will notifagustin Monsalve, director day care center, once signed DILCIA Velasco Natalie, RN 09/12/2023 2:59 PM Signed Ordered faxed to [facility] Ramos RN Allergies As of Date: 09/12/2023 Noted Allergy Reaction CLARITHROMYCIN 01/27/2010 16 - Unknown CONJUGATED ESTROGENS 01/27/2010 16 - Unknown NEOSPORIN (EIOSSDMY-[id number] O*05/06/2019 2 - Rash PACLITAXEL 08/24/2019 14 [...] right breast [Z90.11] Order(s):BREAST PROSTHESIS, MASTECTOMY BRA [[id number]] Order #: [id number] Prescriptions as of 09/12/2023 - BREO ELLIPTA [...] CARIN RAMOS on 09/12/[address] [facility] Cancer Ag27-29 SerPl-aCncon 09-12-2023 Cancer Ag 27-29 Qn 31.6 [arb'U]/mL Normal <38.6 C [facility] Comment on above: Order Comment: Speci men Type: BLOOD SPECIMEN Ordering Facility: [facility] Address: [address] [place] [address] Result Comment: The CA27.29 test was performed using the Siemens Centaur XP chemiluminometric immunoassay method. Results obtained with different assay methods or kits cannot be used interchangeably. Performed By: #### 1 7842-6 #### [facility] CLIA [id number] [address] [facility] [id number] [address] [place] Comprehensive metabolic 2000 panelon 09-12-2023 Albumin [Mass/Vol] 4.4 g/dL Normal 3.9-4.[address] [facility] Comment on above: Order Comment: Speci men Type: BLOOD SPECIMEN Ordering Facility: [facility] Address: [address] [place] [address] Performed By: #### 2 4323-8 #### [facility] CLIA [id number] [address] [place] [address] 44196 ALP [Catalytic activity/Vol] 87 U/L Normal 34-[address] [facility] Comment on above: Order Comment: Speci men Type: BLOOD SPECIMEN Ordering Facility: [facility] Address: [address] [place] [address] Performed By: #### 2 4323-8 #### [facility] CLIA [id number] [address] [place] [address] 20894 ALT [Catalytic activity/Vol] 11 U/L Normal 7-[address] [facility] Comment on above: Order Comment: Speci men Type: BLOOD SPECIMEN Ordering Facility: [facility] Address: [address] [place] [address] Performed By: #### 2 4323-8 #### [facility] CLIA [id number] [address] [place] [address] 18371 Anion gap [Moles/Vol] 10 mmol/L Normal 9-[address] [facility] Comment on above: Order Comment: Speci men Type: BLOOD SPECIMEN Ordering Facility: [facility] Address: [address] [place] [address] Performed By: #### 2 4323-8 #### [facility] CLIA [id number] [address] [place] [address] AST [Catalytic activity/Vol] 14 U/L Normal 13-[address] [facility] Comment on above: Order Comment: Speci men Type: BLOOD SPECIMEN Ordering Facility: [facility] Address: [address] [place] [address] Performed By: #### 2 4323-8 #### [facility] CLIA [id number] [address] [place] [address] 71220 Bilirubin [Mass/Vol] 0.6 mg/dL Normal 0.2-1.3 [facility] Comment on above: Order Comment: Speci men Type: BLOOD SPECIMEN Ordering Facility: [facility] Address: [address] [place] [address] Performed By: #### 2 4323-8 #### [facility] CLIA [id number] [address] [place] [address] 82430 Calcium [Mass/Vol] 9.7 mg/dL Normal 8.5-10.[address] [facility] Comment on above: Order Comment: Speci men Type: BLOOD SPECIMEN Ordering Facility: [facility] Address: [address] [place] [address] Performed By: #### 2 4323-8 #### [facility] CLIA [id number] [address] [place] [address] 67819 Chloride [Moles/Vol] 96 mmol/L Low 97-105 [facility] Comment on above: Order Comment: Speci men Type: BLOOD SPECIMEN Ordering Facility: [facility] Address: [address] [place] [address] Performed By: #### 2 4323-8 #### [facility] CLIA [id number] [address] [place] [address] 25648 CO2 [Moles/Vol] 31 mmol/L High 22-[address] [facility] Comment on above: Order Comment: Speci men Type: BLOOD SPECIMEN Ordering Facility: [facility] Address: [address] [place], [place] [address] Performed By: #### 2 4323-8 #### [facility] CLIA [id number] [address] [place] [address] 48007 Creatinine [Mass/Vol] 1.10 mg/dL High 0.58-0.[address] [facility] Comment on above: Order Comment: Jennifer stahl Type: BLOOD SPECIMEN Ordering Facility: [facility] Address: [address] [place] [address] Performed By: #### 2 4323-8 #### [facility] CLIA [id number] [address] [place] [address] 76027 Creatinine and Glomerular filtration rate.predicted panel (S/P/Bld) 53 mL/min/1.73m??? Low >=[address] [facility] Comment on above: Order Comment: Jennifer stahl Type: BLOOD SPECIMEN Ordering Facility: [facility] Address: [address] [place] [address] Result Comment: Violette mated Glomerular Filtration Rate [...] GFR. Performed By: #### 2 4323-8 #### [facility] CLIA [id number] [address] [place] [address] 12347 Glucose [Mass/Vol] 115 mg/dL High 74-[address] [facility] Comment on above: Order Comment: Jennifer stahl Type: BLOOD SPECIMEN Ordering Facility: [facility] Address: [address] [place] [address] Result Comment: The Stateless Diabetes Association (ADA) provides guidance for cutoff [...] Standards of Medical Care in Diabetes 2016, Stateless Diabetes Association. Diabetes Care. 2016.39(Suppl 1). Performed By: #### 2 4323-8 #### [facility] CLIA [id number] [address] [place] [address] 35588 Potassium [Moles/Vol] 4.4 mmol/L Normal 3.7-5.[address] [facility] Comment on above: Order Comment: Speci men Type: BLOOD SPECIMEN Ordering Facility: [facility] Address: [address] [place] [address] Performed By: #### 2 4323-8 #### [facility] CLIA [id number] [address] [place] [address] 87974 Protein [Mass/Vol] 7.4 g/dL Normal 6.3-8.[address] [facility] Comment on above: Order Comment: Speci men Type: BLOOD SPECIMEN Ordering Facility: [facility] Address: [address] [id number] Performed By: #### 2 4323-8 #### [facility] CLIA [id number] [address] [place] [address] 12684 Sodium [Moles/Vol] 137 mmol/L Normal 136-[address] [facility] Comment on above: Order Comment: Speci men Type: BLOOD SPECIMEN Ordering Facility: [facility] Address: [address] [place] [address] Performed By: #### 2 4323-8 #### [facility] CLIA [id number] [address] [place] [address] 64529 Urea nitrogen [Mass/Vol] 36 mg/dL High 7-[address] [facility] Comment on above: Order Comment: Speci men Type: BLOOD SPECIMEN Ordering Facility: [facility] Address: [address] [place] [address] Performed By: #### 2 4323-8 #### [facility] CLIA [id number] [address] [place] [address] CBC W Auto Differential pane l (Bld)on 09-13-2022 Basophils (Bld) [#/Vol] <0.11 k/uL [facility] Basophils/100 WBC (Bld) 0.2 % [facility] Differential cell count method Nom (Bld) Auto [facility] Eosinophils (Bld) [#/Vol] <0.46 k/uL [facility] Eosinophils/100 WBC (Bld) 0.0 % [facility] Erythrocyte distribution width (RBC) [Ratio] 14.1 % 11.5 - 15.0 % [facility] Hematocrit (Bld) [Volume fraction] 38.1 % 36.0 - 46.0 % [facility] Hemoglobin (Bld) [Mass/Vol] 11.7 g/dL 11.5 - 15.5 g/dL [facility] Immature granulocytes (Bld) [#/Vol] 0.05 10*3/uL <0.10 k/uL [facility] Immature granulocytes/100 WBC (Bld) 0.5 % [facility] Lymphocytes (Bld) [#/Vol] 1.15 10*3/uL 1.00 - 4.00 k/uL [facility] Lymphocytes/100 WBC (Bld) 11.5 % [facility] MCH (RBC) [Entitic mass] 29.4 pg 26.0 - 34.0 pg [facility] MCHC (RBC) [Mass/Vol] 30.7 g/dL 30.5 - 36.0 g/dL [facility] MCV (RBC) [Entitic vol] 95.7 fL 80.0 - 100.0 fL [facility] Monocytes (Bld) [#/Vol] 0.75 10*3/uL <0.87 k/uL [facility] Monocytes/100 WBC (Bld) 7.5 % [facility] Neutrophils (Bld) [#/Vol] 8.04 10*3/uL High 1.45 - 7.50 k/uL [facility] Neutrophils/100 WBC (Bld) 80.3 % [facility] Nucleated RBC (Bld) [#/Vol] <0.01 k/uL [facility] Nucleated RBC/100 WBC (Bld) [Ratio] 0.0 /100 WBC [facility] Platelet mean volume (Bld) [Entitic vol] 10.0 fL 9.0 - 12.7 fL [facility] Platelets (Bld) [#/Vol] 267 10*3/uL 150 - 400 k/uL [facility] RBC (Bld) [#/Vol] 3.98 10*6/uL 3.90 - 5.2 0 m/uL [facility] WBC (Bld) [#/Vol] 10.01 10*3/uL 3.70 - 11 .00 k/uL [facility] Comprehensive metabolic 2000 panelon 09-13-2022 Albumin [Mass/Vol] 4.2 g/dL 3.9 - 4.9 g/dL [facility] ALP [Catalytic activity/Vol] 97 U/L 34 - 123 U/L [facility] ALT [Catalytic activity/Vol] 10 U/L 7 - 38 U/L [facility] Anion gap [Moles/Vol] 10 mmol/L 9 - 18 mmol/L [facility] AST [Catalytic activity/Vol] 12 U/L Low 13 - 35 U/L [facility] Bilirubin [Mass/Vol] 0.4 mg/dL 0.2 - 1 .3 mg/dL [facility] Calcium [Mass/Vol] 9.3 mg/dL 8.5 - 10. 2 mg/dL [facility] Chloride [Moles/Vol] 101 mmol/L 97 - 10 5 mmol/L [facility] CO2 [Moles/Vol] 29 mmol/L 22 - 30 mmol/L [facility] Creatinine [Mass/Vol] 1.02 mg/dL High 0.58 - 0.96 mg/dL [facility] Estimated Glomerular Filtration Rate 58 mL/min/1.73m Low >=60 mL/min/1.73m [facility] Glucose [Mass/Vol] 139 mg/dL High 74 - 99 mg/dL [facility] Potassium [Moles/Vol] 3.9 mmol/L 3.7 - 5.1 mmol/L [facility] Protein [Mass/Vol] 6.9 g/dL 6.3 - 8.0 g/dL [facility] Sodium [Moles/Vol] 140 mmol/L 136 - 144 mmol/L [facility] Urea nitrogen [Mass/Vol] 25 mg/dL High 7 - 21 mg/dL [facility] XR CHEST 2 Von 08-15-2022 [...] DEEPTI MALLORY Date: 2022-08-15 06:58 Normal [facility] BNPon 07-23-2022 Natriuretic peptide B (Bld) [Mass/Vol] 1362.0 pg/mL Critically high <=900.0 [facility] Comment on above: Performed By: #### C MADM, CMP, BNP #### [facility] [address] [address] [address] Hector Rubio CARDIAC [place] ADMITon 022 CK [Catalytic activity/Vol] 84 U/L Normal 26-192 [facility] Comment on above: Performed By: #### C MADM, CMP, BNP #### [facility] [address] [address] [address] Hector Rubio CK.MB [Mass/Vol] 2.22 ng/mL Normal <=3.60 [facility] Comment on above: Performed By: #### C MADM, CMP, BNP #### [facility] [address] [address] [address] Hector Rubio HSTROP 41.0 pg/mL Normal 4.0-51.3 [facility] Comment on above: Result Comment: CUT- OFF POINTS HAVE BEEN ESTABLISHED BASED ON THE FOURTH UNIVERSAL DEFINITIONS OF MYOCARDIAL INFARCTION. THE UPPER REFERENCE LIMIT (URL) OF TROPONIN, DEFINED THE 99TH PERCENTILE OF cTnI DISTRIBUTION IN A REFERENCE POPULATION, HAS BEEN CONFIRMED THE DECISION THRESHOLD FOR NC DIAGNOSIS. Performed By: #### C MADM, CMP, BNP #### [facility] [address] [address] [address] Hector Rubio DIONNE 95 ng/mL Critically high 9-82 [facility] Comment on above: Performed By: #### C MADM, CMP, BNP #### [facility] [address] [place] [address] Dr. Hector Rubio CBC AUTO DIFFon 07-23-2022 BASO # 0.0 103/ul Normal 0.0-0.1 [facility] Comment on above: Performed By: #### C BC #### [facility] [address] [place] [address] Dr. Hector Rubio Basophils/100 WBC (Bld) 0.1 % Critically low 0.2-2.0 [facility] Comment on above: Performed By: #### C BC #### [facility] [address] [place] [address] Dr. Hector Rubio EO # 0.0 103/ul Normal 0.0-0.7 [facility] Comment on above: Performed By: #### C BC #### [facility] [address] [place] [address] Dr. Hector Rubio Eosinophils/100 WBC (Bld) 0.0 % Critically low 0.9-7.0 [facility] Comment on above: Performed By: #### C BC #### [facility] [address] [place] [address] Dr. Hector Rubio Erythrocyte distribution width (RBC) [Ratio] 13.7 % Normal 11.0-15.0 [facility] Comment on above: Performed By: #### C BC #### [facility] [address] [place] [address] Dr. Hector Rubio Hematocrit (Bld) [Volume fraction] 38.9 % Normal 36.0-48.0 [facility] Comment on above: Performed By: #### C BC #### [facility] [address] [place] [address] Dr. Hector Rubio Hemoglobin (Bld) [Mass/Vol] 11.8 g/dL Critically low 12.0-16.0 [facility] Comment on above: Performed By: #### C BC #### [facility] [address] [place] [address] Dr. Hector Rubio IG # 0.02 10e3/ul Normal 0.00-0.03 [facility] Comment on above: Performed By: #### C BC #### [facility] [address] [place] [address] Dr. Hector Rubio IG % 0.3 % Normal 0.0-0.5 [facility] Comment on above: Performed By: #### C BC #### [facility] [address] [place] [address] Dr. Hector Rubio LYMPH # 1.0 103/ul Critically low 1.2-3.8 [facility] Comment on above: Performed By: #### C BC #### [facility] [address] [place] [address] Dr. Hector Rubio Lymphocytes/100 WBC (Bld) 12.6 % Critically low 20.5-60.0 [facility] Comment on above: Performed By: #### C BC #### [facility] [address] [place] [address] Dr. Hector Rubio MANUAL DIFF REQ NO Normal [facility] Comment on above: Performed By: #### C BC #### [facility] [address] [place] [address] Dr. Hector Rubio MCH (RBC) [Entitic mass] 29.0 pg Normal 26.7-34.0 [facility] Comment on above: Performed By: #### C BC #### [facility] [address] [place] [address] Dr. Hector Rubio MCHC (RBC) [Mass/Vol] 30.3 g/dL Normal 29.9-35.2 [facility] Comment on above: Performed By: #### C BC #### [facility] [address] [place] [address] Dr. Hector Rubio MCV (RBC) [Entitic vol] 95.6 fL Normal 81.0-99.0 [facility] Comment on above: Performed By: #### C BC #### [facility] [address] [place] [address] Dr. Hector Rubio MONO # 0.7 103/ul Normal 0.3-0.8 [facility] Comment on above: Performed By: #### C BC #### [facility] [address] [address] [address] Hector Rubio Monocytes/100 WBC (Bld) 9.0 % Normal 1.7-12.0 [facility] Comment on above: Performed By: #### C BC #### [facility] [address] [address] [address] Hector Rubio NEUT # 6.1 103/ul Normal 1.4-6.5 [facility] Comment on above: Performed By: #### C BC #### [facility] [address] [place] [address] Dr. Hector Rubio Neutrophils/100 WBC (Bld) 78.0 % Critically high 43.0-75.0 [facility] Comment on above: Performed By: #### C BC #### [facility] [address] [place] [address] Dr. Hector Rubio Platelet mean volume (Bld) [Entitic vol] 9.7 fL Normal 9.5-13.5 [facility] Comment on above: Performed By: #### C BC #### [facility] [address] [place] [address] Dr. Hector Rubio PLT 202 103/ul Normal 150-450 [facility] Comment on above: Performed By: #### C BC #### [facility] [address] [place] [address] Dr. Hector Rubio RBC 4.07 106/ul Critically low 4.20-5.40 [facility] Comment on above: Performed By: #### C BC #### [facility] [address] [place] [address] Dr. Hector Rubio WBC 7.8 103/ul Normal 4.0-11.0 [facility] Comment on above: Performed By: #### C BC #### [facility] [address] [place] [address] Dr. Hector Rubio Covid-19 PCR (CVDTBH)on 10-2 4-2022 SARS-CoV-2 (COVID-19) RNA SHLOMO+probe Ql (Unsp spec) [...] for this test is supported by the [place] of Health and Human Service's declaration that [...] used). Performed By: #### C VDTBH #### [facility] [address] [place] [address] Dr. Hector Rubio PROF 14(COMP METB)on 022 Albumin [Mass/Vol] 3.7 g/dL Normal 3.4-5.0 [facility] Comment on above: Performed By: #### C MADM, CMP, BNP #### [facility] [address] [place] [address] Dr. Hector Rubio Albumin/Globulin [Mass ratio] 0.9 {ratio} Normal [facility] Comment on above: Performed By: #### C MADM, CMP, BNP #### [facility] [address] [place] [address] Dr. Hector Rubio ALP [Catalytic activity/Vol] 90 U/L Normal 46-116 [facility] Comment on above: Performed By: #### C MADM, CMP, BNP #### [facility] [address] [place] [address] Dr. Hector Rubio ALT [Catalytic activity/Vol] 17 U/L Normal 14-59 [facility] Comment on above: Performed By: #### C MADM, CMP, BNP #### [facility] [address] [address] [address] Hector Rubio Anion gap [Moles/Vol] 7.8 mmol/L Normal [facility] Comment on above: Performed By: #### C MADM, CMP, BNP #### [facility] [address] [address] [address] Hector Rubio AST [Catalytic activity/Vol] 12 U/L Critically low 15-37 [facility] Comment on above: Performed By: #### C MADM, CMP, BNP #### [facility] [address] [address] [address] Hector Rubio Bilirubin [Mass/Vol] 0.5 mg/dL Normal 0.2-1.0 [facility] Comment on above: Performed By: #### C MADM, CMP, BNP #### [facility] [address] [address] [address] Hector Rubio Calcium [Mass/Vol] 9.1 mg/dL Normal 8.5-10.1 [facility] Comment on above: Performed By: #### C MADM, CMP, BNP #### [facility] [address] [address] [address] Hector Rubio Chloride [Moles/Vol] 102 mmol/L Normal 98-107 [facility] Comment on above: Performed By: #### C MADM, CMP, BNP #### [facility] [address] [address] [address] Hector Rubio CO2 [Moles/Vol] 33.1 mmol/L Critically high 21.0-32.0 [facility] Comment on above: Performed By: #### C MADM, CMP, BNP #### [facility] [address] [address] [address] Hector Rubio Creatinine [Mass/Vol] 0.89 mg/dL Normal 0.55-1.02 [facility] Comment on above: Performed By: #### C MADM, CMP, BNP #### [facility] [address] [address] [address] Hector Rubio EGFR-AF FAROESE >60 Normal >=60 The [facility] Comment on above: Performed By: #### C MADM, CMP, BNP #### [facility] [address] [address] [address] Hector Rubio EGFR-NON AF FAROESE >60 Normal >=60 [facility] Comment on above: Performed By: #### C MADM, CMP, BNP #### [facility] [address] [place] [address] Dr. Hector Rubio Globulin (S) [Mass/Vol] 4.0 g/dL Normal [facility] Comment on above: Performed By: #### C MADM, CMP, BNP #### [facility] [address] [place] [address] Dr. Hector Rubio Glucose [Mass/Vol] 118 mg/dL Critically high 74-106 [facility] Comment on above: Performed By: #### C MADM, CMP, BNP #### [facility] [address] [place] [address] Dr. Hector Rubio Potassium [Moles/Vol] 3.9 mmol/L Normal 3.5-5.1 [facility] Comment on above: Performed By: #### C MADM, CMP, BNP #### [facility] [address] [place] [address] Dr. Hector Rubio Protein [Mass/Vol] 7.7 g/dL Normal 6.4-8.2 The [facility] Comment on above: Performed By: #### C MADM, CMP, BNP #### [facility] [address] [place] [address] Dr. Hector Rubio Sodium [Moles/Vol] 139 mmol/L Normal 136-145 [facility] Comment on above: Performed By: #### C MADM, CMP, BNP #### [facility] [address] [place] [address] Dr. Hector Rubio Urea nitrogen [Mass/Vol] 29.0 mg/dL Critically high 7.0-18.0 [facility] Comment on above: Performed By: #### C MADM, CMP, BNP #### [facility] [address] [place], [place] [address] Dr. Hector Rubio Urea nitrogen/Creatinine [Mass ratio] 32.6 mg/mg Normal [facility] Comment on above: Performed By: #### C MADM, CMP, BNP #### [facility] [address] [place], [place] [address] Dr. Hector Rubio XR CHEST 1 Von [...] GABRIELLE LIU Date: 2022-07-23 16:40 Normal [facility] MG MAMM DX 3D LT CADon 06-14 MG MAMM DX 3D LT CAD Patient: KAYLIE SALOMON Exam Date: 06/14/2022 : 1950 Gender:F Ordering : DR REGINALD ARAGON M.D. Admission #: [id number] Family : Order #: [id number] CLICK HERE TO VIEW EXAM CORRECTION Corrected [...] Treatments None Family Cancers None LOCATION: [facility] BREAST COMPOSITION: Scattered areas fibroglandular [...] at 09:22 Normal [facility] CT Chest W contrast Juan [...] any questions regarding this interpretation, please call [phone]. If you are unable to reach us at the number above, please feel free to contact [facility] at [phone]. DIVISION OF RADIOLOGY * * *Final Report* * * DATE OF EXAM: Aug 17 2021 10:00AM [facility] 0539 - CT CHEST W IVCON / [...] kidney. The upper abdomen is otherwise unremarkable. Callisthenics Instructor (topogram) images: No additional findings. DIVISION OF RADIOLOGY Provider, [facility] - 08/17/2021 * * *Final Report* * * DATE OF EXAM: Aug 17 2021 10:00AM [facility] 0539 - CT CHEST W IVCON / [...] kidney. The upper abdomen is otherwise unremarkable. Callisthenics Instructor (topogram) images: No additional findings. IMPRESSION IMPRESSION: [...] any questions regarding this interpretation, please call [phone]. If you are unable to reach us at the number above, please feel free to contact [facility] at [phone]. [facility] Radiology Study observation (narrative) [facility] CT Chest W contrast IVOrdere d By: [facility] Provider on 08-17-2021 [facility] BASIC METABOLIC PANELon 05-0 Calcium [Mass/Vol] 9.3 mg/dL Normal 8.6-10.3 [facility] Comment on above: Order Comment: Yes: Add to Previous draw if able Performed By: #### 0 0121, [id number] #### [facility] [address] [place] [address], [place] Chloride [Moles/Vol] 98 mmol/L Normal 98-[address] [facility] Comment on above: Order Comment: Yes: Add to Previous draw if able Performed By: #### 0 0121, 66291 #### [facility] [address] [place] [address], [place] CO2 [Moles/Vol] 34 mmol/L High 21-31 The [place] Comment on above: Order Comment: Yes: Add to Previous draw if able Performed By: #### 0 0121, 47820 #### [facility] [address] [place] [address], [facility] Creatinine [Mass/Vol] 0.59 mg/dL Low 0.60-1.[address] [facility] Comment on above: Order Comment: Yes: Add to Previous draw if able Performed By: #### 0 0121, 43077 #### [facility] [address] [place] [address], [place] GFR/1.73 sq M predicted among blacks MDRD (S/P/Bld) [Vol rate/Area] mL/min/{1.73_m2} Normal >[address] [facility] Comment on above: Order Comment: Yes: Add to Previous draw if able Result Comment: Calc ulation may not be valid for patients over 70 years Performed By: #### 0 0121, 92950 #### [facility] [address] [place] [address], [place] GFR/1.73 sq M predicted among non-blacks MDRD (S/P/Bld) [Vol rate/Area] mL/min/{1.73_m2} Normal >[address] [facility] Comment on above: Order Comment: Yes: Add to Previous draw if able Result Comment: Calc ulation may not be valid for patients over 70 years Performed By: #### 0 0121, 17501 #### [facility] [address] [place] [address], [facility] Glucose [Mass/Vol] 256 mg/dL High 70-100 The [facility] Comment on above: Order Comment: Yes: Add to Previous draw if able Performed By: #### 0 0121, 05573 #### [facility] [address] [place] [address], [facility] Potassium [Moles/Vol] 4.5 mmol/L Normal 3.5-5.[address] [facility] Comment on above: Order Comment: Yes: Add to Previous draw if able Performed By: #### 0 0121, 35376 #### [facility] [address] [place] [address], [facility] Sodium [Moles/Vol] 139 mmol/L Normal 136-145 [facility] Comment on above: Order Comment: Yes: Add to Previous draw if able Performed By: #### 0 0121, 99605 #### [facility] [address] [place] [address], [facility] Urea nitrogen [Mass/Vol] 21 mg/dL Normal 7-[address] [facility] Comment on above: Order Comment: Yes: Add to Previous draw if able Performed By: #### 0 0121, 25941 #### [facility] [address] [place] [address], [facility] CBC W/DIFFon 02-02-2019 ABS BASOPHILS 0.0 10*3/uL Normal 0.0-0.2 The [facility] Comment on above: Performed By: #### 0 0121, 73413 #### [facility] [address] [place] [address], [facility] ABS IMM GRANS 0.1 10*3/uL Normal 0.0-0.2 The [facility] Comment on above: Performed By: #### 0 0121, 56732 #### [facility] [address] [place] [address], [facility] ABS NEUTROPHILS 16.9 10*3/uL High 1.6-7.6 The [facility] Comment on above: Performed By: #### 0 012, 35158 #### [facility] [address] [place] [address], [facility] Basophils/100 WBC (Bld) 0.1 % Normal 0.0-1.[address] [facility] Comment on above: Performed By: #### 0 012, 12634 #### [facility] [address] [place] [address], [facility] Eosinophils (Bld) [#/Vol] 0.0 10*3/uL Normal 0.0-0.[address] [facility] Comment on above: Performed By: #### 0 012, 81457 #### [facility] [address] [place] [address], [facility] Eosinophils/100 WBC (Bld) 0.0 % Normal 0.0-6.[address] [facility] Comment on above: Performed By: #### 0 012, 51720 #### [facility] [address] [place] [address], [facility] Erythrocyte distribution width (RBC) [Ratio] 14.3 % Normal 11.5-15.[address] [facility] Comment on above: Performed By: #### 0 012, 29755 #### [facility] [address] [place] [address], [facility] Hematocrit (Bld) [Volume fraction] 37.3 % Normal 36.0-45.[address] [facility] Comment on above: Performed By: #### 0 012, 97385 #### [facility] [address] [place] [address], [facility] Hemoglobin (Bld) [Mass/Vol] 11.6 g/dL Low 12.0-15.[address] [facility] Comment on above: Performed By: #### 0 012, 60806 #### [facility] [address] [place] [address], [facility] IMMATURE GRANS 0.4 % Normal 0.0-1.0 [facility] Comment on above: Performed By: #### 0 012, 15103 #### [facility] [address] [place] [address], [facility] Lymphocytes (Bld) [#/Vol] 0.5 10*3/uL Low 1.2-4.[address] [facility] Comment on above: Performed By: #### 0 012, 96322 #### [facility] [address] [place] [address], [facility] Lymphocytes/100 WBC (Bld) 2.5 % Low 20.0-45.[address] [facility] Comment on above: Performed By: #### 0 012, 96919 #### [facility] [address] [place] [address], [facility] MCH (RBC) [Entitic mass] 28.9 pg Normal 27.0-33.[address] [facility] Comment on above: Performed By: #### 0 012, 71657 #### [facility] [address] [place] [address], [facility] MCHC (RBC) [Mass/Vol] 31.1 g/dL Low 32.0-35.[address] [facility] Comment on above: Performed By: #### 0 012, 42995 #### [facility] [address] [place] [address], [facility] MCV (RBC) [Entitic vol] 93.0 fL Normal 82.0-98.[address] [facility] Comment on above: Performed By: #### 0 012, 04841 #### [facility] [address] [place] [address], [facility] Monocytes (Bld) [#/Vol] 0.3 10*3/uL Normal 0.1-1.[address] [facility] Comment on above: Performed By: #### 0 0121, 46161 #### [facility] [address] [place] [address], [facility] MONOS 1.5 % Low 5.0-12.[address] [facility] Comment on above: Performed By: #### 0 0121, 74297 #### [facility] [address] [place] [id number], [facility] Neutrophils/100 WBC (Bld) 95.5 % High 40.0-72.[address] [facility] Comment on above: Performed By: #### 0 0121, 77908 #### [facility] [address] [facility] [place] [address], [facility] Nucleated RBC/100 WBC (Bld) [Ratio] 0 % Normal 0-[address] [facility] Comment on above: Performed By: #### 0 0121, 71775 #### [facility] [address] [facility] [place] [address], [facility] PLAT CNT 265 10*3/uL Normal 150-400 The [facility] Comment on above: Performed By: #### 0 0121, 62742 #### [facility] [address] [facility] [address], [facility] RBC (Bld) [#/Vol] 4.01 10*6/uL Normal 3.80-5.00 The [facility] Comment on above: Performed By: #### 0 0121, 55380 #### [facility] [address] [facility] [place] [address], [place] WBC (Bld) [#/Vol] 17.67 10*3/uL High 4.00-10.[address] [facility] Comment on above: Performed By: #### 0 0121, 47041 #### [facility] [address] [place] [address], [facility] POC GLUCOSE LABon 02-02-2019 Glucose [Mass/Vol] 215 mg/dL High 70-100 The [facility] Comment on above: Performed By: #### 0 0121, 51234 #### [facility] [address] BNP (B-TYPE NATRIURETIC PEPT DARCI)on 02-01-2019 Natriuretic peptide B (Bld) [Mass/Vol] 423 pg/mL High 0-100 The [facility] Comment on above: Order Comment: Yes: Add to Previous draw if able Result Comment: Give n the appropriate clinical setting a BNP result of >100 pg/mL indicates congestive heart failure. Performed By: #### 8 5123 #### [facility] [address] CBC W/DIFFon 02-01-2019 ABS BASOPHILS 0.0 10*3/uL Normal 0.0-0.2 The [facility] Comment on above: Order Comment: Yes: Add to Previous draw if able Performed By: #### 5 0103 #### [facility] [address] ABS IMM GRANS 0.1 10*3/uL Normal 0.0-0.2 The [facility] Comment on above: Order Comment: Yes: Add to Previous draw if able Performed By: #### 5 0103 #### [facility] [address] ABS NEUTROPHILS 12.2 10*3/uL High 1.6-7.6 The [facility] Comment on above: Order Comment: Yes: Add to Previous draw if able Performed By: #### 5 0103 #### [facility] [address] Basophils/100 WBC (Bld) 0.2 % Normal 0.0-1.[address] [facility] Comment on above: Order Comment: Yes: Add to Previous draw if able Performed By: #### 5 0103 #### [facility] [address] [place] [address], [facility] Eosinophils (Bld) [#/Vol] 0.0 10*3/uL Normal 0.0-0.[address] [facility] Comment on above: Order Comment: Yes: Add to Previous draw if able Performed By: #### 5 0103 #### [facility] [address] [place] [id number], [facility] Eosinophils/100 WBC (Bld) 0.0 % Normal 0.0-6.[address] [facility] Comment on above: Order Comment: Yes: Add to Previous draw if able Performed By: #### 5 3 #### [facility] [address] [address], [facility] Erythrocyte distribution width (RBC) [Ratio] 14.3 % Normal 11.5-15.[address] [facility] Comment on above: Order Comment: Yes: Add to Previous draw if able Performed By: #### 5 0103 #### [facility] [address] [place] [address], [facility] Hematocrit (Bld) [Volume fraction] 39.9 % Normal 36.0-45.[address] [facility] Comment on above: Order Comment: Yes: Add to Previous draw if able Performed By: #### 5 3 #### [facility] [address] [place] [id number], [facility] Hemoglobin (Bld) [Mass/Vol] 11.8 g/dL Low 12.0-15.[address] [facility] Comment on above: Order Comment: Yes: Add to Previous draw if able Performed By: #### 5 0103 #### [facility] [address] [place] [id number], [facility] IMMATURE GRANS 0.4 % Normal 0.0-1.0 The [facility] Comment on above: Order Comment: Yes: Add to Previous draw if able Performed By: #### 5 3 #### [facility] [address] [place] [address], [facility] Lymphocytes (Bld) [#/Vol] 0.3 10*3/uL Low 1.2-4.[address] [facility] Comment on above: Order Comment: Yes: Add to Previous draw if able Performed By: #### 5 0103 #### [facility] [address] [place] [address], [facility] Lymphocytes/100 WBC (Bld) 2.6 % Low 20.0-45.[address] [facility] Comment on above: Order Comment: Yes: Add to Previous draw if able Performed By: #### 5 0103 #### [facility] [address] MCH (RBC) [Entitic mass] 28.6 pg Normal 27.0-33.[address] [facility] Comment on above: Order Comment: Yes: Add to Previous draw if able Performed By: #### 3 #### [facility] [address] MCHC (RBC) [Mass/Vol] 29.6 g/dL Low 32.0-35.[address] [facility] Comment on above: Order Comment: Yes: Add to Previous draw if able Performed By: #### 5 3 #### [facility] [address] MCV (RBC) [Entitic vol] 96.6 fL Normal 82.0-98.[address] [facility] Comment on above: Order Comment: Yes: Add to Previous draw if able Performed By: #### 5 0103 #### [facility] [address] [facility] [address], [facility] Monocytes (Bld) [#/Vol] 0.1 10*3/uL Normal 0.1-1.[address] [facility] Comment on above: Order Comment: Yes: Add to Previous draw if able Performed By: #### 3 #### [facility] [address] [place] [address], [facility] MONOS 0.9 % Low 5.0-12.[address] [facility] Comment on above: Order Comment: Yes: Add to Previous draw if able Performed By: #### 5 0103 #### [facility] [address] [place] [id number], [facility] Neutrophils/100 WBC (Bld) 95.9 % High 40.0-72.[address] [facility] Comment on above: Order Comment: Yes: Add to Previous draw if able Performed By: #### 5 0103 #### [facility] [address] [place] [address], [facility] Nucleated RBC/100 WBC (Bld) [Ratio] 0 % Normal 0-[address] [facility] Comment on above: Order Comment: Yes: Add to Previous draw if able Performed By: #### 5 0103 #### [facility] [address] [place] [address], [facility] PLAT CNT 240 10*3/uL Normal 150-400 The [facility] Comment on above: Order Comment: Yes: Add to Previous draw if able Performed By: #### 5 0103 #### [facility] [address] [place] [address], [facility] RBC (Bld) [#/Vol] 4.13 10*6/uL Normal 3.80-5.00 The [facility] Comment on above: Order Comment: Yes: Add to Previous draw if able Performed By: #### 5 0103 #### [facility] [address] [place] [id number], [facility] WBC (Bld) [#/Vol] 12.76 10*3/uL High 4.00-10.[address] [facility] Comment on above: Order Comment: Yes: Add to Previous draw if able Performed By: #### 5 0103 #### [facility] [address] [place] [address], [facility] COMP METABOLIC PANELon 02-01 Albumin [Mass/Vol] 4.1 g/dL Normal 3.5-5.7 The [facility] Comment on above: Order Comment: Yes: Add to Previous draw if able Performed By: #### 0 0121, 59873 #### [facility] [address] [place] [address], [place] ALKALINE PHOSPH 70 IU/L Normal 34-104 The [place] Comment on above: Order Comment: Yes: Add to Previous draw if able Performed By: #### 0 0121, 75609 #### [facility] [address] [place] [address], [place] ALT [Catalytic activity/Vol] 14 U/L Normal 7-[address] [facility] Comment on above: Order Comment: Yes: Add to Previous draw if able Performed By: #### 0 0121, 73013 #### [facility] [address] [place] [address], [place] AST [Catalytic activity/Vol] 16 U/L Normal 13-[address] [facility] Comment on above: Order Comment: Yes: Add to Previous draw if able Performed By: #### 0 [id number], [id number] #### [facility] [address] [place] [address], [place] Bilirubin [Mass/Vol] 0.5 mg/dL Normal 0.3-1.[address] [facility] Comment on above: Order Comment: Yes: Add to Previous draw if able Performed By: #### 0 0121, [id number] #### [facility] [address] [place] [address], [place] Calcium [Mass/Vol] 9.0 mg/dL Normal 8.6-10.3 [facility] Comment on above: Order Comment: Yes: Add to Previous draw if able Performed By: #### 0 0121, [id number] #### [facility] [address] [place] [address], [place] Chloride [Moles/Vol] 98 mmol/L Normal 98-[address] [facility] Comment on above: Order Comment: Yes: Add to Previous draw if able Performed By: #### 0 0121, [id number] #### [facility] [address] [place] [address], [place] CO2 [Moles/Vol] 31 mmol/L Normal 21-31 The [place] Comment on above: Order Comment: Yes: Add to Previous draw if able Performed By: #### 0 0121, [id number] #### [facility] [address] [place] [address], [place] Creatinine [Mass/Vol] 0.67 mg/dL Normal 0.60-1.20 [facility] Comment on above: Order Comment: Yes: Add to Previous draw if able Performed By: #### 0 0121, [id number] #### [facility] [address] [place] [address], [place] GFR/1.73 sq M predicted among blacks MDRD (S/P/Bld) [Vol rate/Area] mL/min/{1.73_m2} Normal >60 [facility] Comment on above: Order Comment: Yes: Add to Previous draw if able Result Comment: Calc ulation may not be valid for patients over 70 years Performed By: #### 0 0121, [id number] #### [facility] [address] [place] [address], [place] GFR/1.73 sq M predicted among non-blacks MDRD (S/P/Bld) [Vol rate/Area] mL/min/{1.73_m2} Normal >60 [facility] Comment on above: Order Comment: Yes: Add to Previous draw if able Result Comment: Calc ulation may not be valid for patients over 70 years Performed By: #### 0 0121, [id number] #### [facility] [address] [place] [address], [place] Glucose [Mass/Vol] 245 mg/dL High 70-100 [facility] Comment on above: Order Comment: Yes: Add to Previous draw if able Performed By: #### 0 0121, [id number] #### [facility] [address] [place] [address], [place] Potassium [Moles/Vol] 4.2 mmol/L Normal 3.5-5.[address] [facility] Comment on above: Order Comment: Yes: Add to Previous draw if able Performed By: #### 0 0121, [id number] #### [facility] [address] [place] [address], [place] Protein [Mass/Vol] 7.1 g/dL Normal 6.0-8.3 [facility] Comment on above: Order Comment: Yes: Add to Previous draw if able Performed By: #### 0 0121, [id number] #### [facility] [address] [place] [address], [place] Sodium [Moles/Vol] 136 mmol/L Normal 136-145 [facility] Comment on above: Order Comment: Yes: Add to Previous draw if able Performed By: #### 0 0121, [id number] #### [facility] [address] [place] [address], [place] Urea nitrogen [Mass/Vol] 13 mg/dL Normal 7-[address] [facility] Comment on above: Order Comment: Yes: Add to Previous draw if able Performed By: #### 0 0121, 72410 #### [facility] [address] [place] [address], [place] POC GLUCOSE LABon 02-01-2019 Glucose [Mass/Vol] 225 mg/dL High 70-100 [facility] Comment on above: Performed By: #### 0 0121, [id number] #### [facility] [address] [place] [address], [place] Glucose [Mass/Vol] 230 mg/dL High 70-100 [facility] Comment on above: Performed By: #### 0 0121, [id number] #### [facility] [address] [place] [address], [facility] Glucose [Mass/Vol] 237 mg/dL High 70-100 [facility] Comment on above: Performed By: #### 8 [id number] #### [facility] [address] [place] [address], [facility] Glucose [Mass/Vol] 247 mg/dL High 70-100 [facility] Comment on above: Performed By: #### 8 [id number] #### [facility] [address] [place] [address], [facility] PORTABLE CHEST 1 VIEWon PORTABLE CHEST [address] [facility] Department of Radiology [address] [place] [id number] ======== Patient Name: KAYLIE SALOMON : 1950 Sex: F Age: Race: White Pt. Location: [address] [place] [address] Patient Status: I Ordered Date: 01/31/2019 11:45:00 [...] findings. Electronically signed by:Rachael Cardenas. Transcribed by: [email or web address], User Resident: ROSA STRANGE Electronically Signed by: RACHAEL CARDENAS @ 02/01/2019 12:39 PM I personally read this/these film(s) with this resident Normal [facility] Comment on above: Order Comment: R/O I nfiltrates PROCALCITONINon 02-01-2019 PROCALCITONIN 0.07 ng/mL Normal 0.00-0.10 [facility] Comment on above: Order Comment: Yes: [...] PCT<0.5ng/mL Performed By: #### 3 [id number] #### [facility] [address] TROPONIN-Ion 02-01-2019 Troponin I.cardiac [Mass/Vol] 0.08 ng/mL High 0.00-0.04 [facility] Comment on above: Order Comment: No: D o not add to previous draw Result Comment: REFE RENCE RANGES: 0.00 - 0.04 ng/ml NORMAL 0.05 - 0.50 ng/ml INDETERMINATE > 0.50 ng/ml CONSISTENT WITH AN M.I. Performed By: #### 3 5200 #### [facility] [address] Troponin I.cardiac [Mass/Vol] 0.08 ng/mL High 0.00-0.[address] [facility] Comment on above: Order Comment: No: D o not add to previous draw Result Comment: REFE RENCE RANGES: 0.00 - 0.04 ng/ml NORMAL 0.05 - 0.50 ng/ml INDETERMINATE > 0.50 ng/ml CONSISTENT WITH AN M.I. Performed By: #### 0 0121, [id number] #### [facility] [address] Cardiovascular Lab Reporton 01-16-2019 Cardiovascular Lab Report [facility] Patient Name: [facility] Kaylie Caballero MR #: [id number] Department of Physician: Pepe Alexandre M.D. Division of Service Date: 01/16/2019 Cardiology Birthdate: 1950 Adult Cardiovascular Room #: [place] [address] Cardiovascular Laboratory Report FINAL IMPRESSION: 1. Nonobstructive [...] the right radial artery was obtained. A 6-Palauan glide sheath was inserted without difficulty. Bilateral [...] angled Glidewire. INDICATIONS: Troponin elevation, type 2 [id number] myocardial infarction. Electronically Signed by: Shemar Hudson M.D. 01/29/2019 08:36 A Shemar Hudson M.D. Date Dict: 01/16/2019/01:01 P/Shemar Hudson M.D. Date Trans: 01/16/2019 02:39 P/mmo [id number] Normal [facility] SWEAT CHLORIDEon 12-03-2018 SWEAT CHLORIDE 36 mmol/L Abnormal [facility] Comment on above: Order Comment: Right [id number] Left arm [id number] Result Comment: REFE RENCE VALUES <=29 mMol/L CYSTIC FIBROSIS IS UNLIKELY 30-59 mMol/L INTERMEDIATE >=60 mMol/L INDICATIVE OF CYSTIC FIBROSIS NOTE: SWEAT CHLORIDE VALUES LESS THAN 30 mMol/L HAVE BEEN DOCUMENTED IN GENETICALLY PROVEN CF PATIENTS. CLINICAL CORRELATION IS NECESSARY. Performed By: #### S WCH1 #### [facility] [address] [place] [address] WT COLLECTED 0.177 grams Normal [facility] Comment on above: Order Comment: Right [id number] Left arm [id number] Performed By: #### S WCH1 #### [facility] [address] [place] [address] SWEAT CHLORIDE 42 mmol/L Abnormal [facility] Comment on above: Order Comment: Doroteo keith fax results to Doctor Charles Landeros MD. Phone: [phone] Result Comment: REFE RENCE VALUES <=29 mMol/L CYSTIC FIBROSIS IS UNLIKELY 30-59 mMol/L INTERMEDIATE >=60 mMol/L INDICATIVE OF CYSTIC FIBROSIS NOTE: SWEAT CHLORIDE VALUES LESS THAN 30 mMol/L HAVE BEEN DOCUMENTED IN GENETICALLY PROVEN CF PATIENTS. CLINICAL CORRELATION IS NECESSARY. Performed By: #### S WCH1 #### [facility] [address] [place] [address] WT COLLECTED 0.215 grams Normal [facility] Comment on above: Order Comment: Doroteo keith fax results to Doctor Charles Landeros MD. Phone: [phone] Performed By: #### S WCH1 #### [facility] [address] [place] [address] Vital Signs Date Time Vital Sign Value Performing Clinician Facility 05-06-2025 08:10-0400 Diastolic blood pressure 78 mm[Hg] Pema Reynolds MD Work Phone: [facility] 05-06-2025 08:10-0400 Heart rate 75 /min Pema Reynolds MD Work Phone: [facility] 05-06-2025 08:10-0400 Systolic blood pressure 118 mm[Hg] Pema Reynolds MD Work Phone: [facility] 05-06-2025 08:05-0400 Body height 167.6 cm Pema Reynolds MD Work Phone: [facility] 05-06-2025 08:05-0400 Body mass index (BMI) [Ratio] 41.13 kg/m2 Pema Reynolds MD Work Phone: [facility] 05-06-2025 08:05-0400 Body weight 115.58 kg Pema Reynolds MD Work Phone: [facility] 04-07-2025 13:47-0400 Body height 165.1 cm Jim Lombardi MD Work Phone: [facility] 04-07-2025 13:47-0400 Body mass index (BMI) [Ratio] 42.43 kg/m2 Jim Lombardi MD Work Phone: [facility] 04-07-2025 13:47-0400 Body weight 115.67 kg Jim Lombardi MD Work Phone: [facility] 04-07-2025 13:47-0400 Diastolic blood pressure 66 mm[Hg] Jim Lombardi MD Work Phone: [facility] 04-07-2025 13:47-0400 Heart rate 72 /min Jim Lombardi MD Work Phone: [facility] 04-07-2025 13:47-0400 Systolic blood pressure 103 mm[Hg] Jim Lombardi MD Work Phone: [facility] 07-30-2024 13:54-0400 Body height 167.7 cm Reginald Aragon MD Work Phone: [facility] 07-30-2024 13:54-0400 Body mass index (BMI) [Ratio] 40.64 kg/m2 Reginald Aragon MD Work Phone: [facility] 07-30-2024 13:54-0400 Body temperature 97.3 [degF] Reginald Aragon MD Work Phone: [facility] 07-30-2024 13:54-0400 Body weight 114.3 kg Reginald Aragon MD Work Phone: [facility] 07-30-2024 13:54-0400 Diastolic blood pressure 63 mm[Hg] Reginald Aragon MD Work Phone: [facility] 07-30-2024 13:54-0400 Heart rate 81 /min Reginald Aragon MD Work Phone: [facility] 07-30-2024 13:54-0400 Respiratory rate 18 /min Reginald Aragon MD Work Phone: [facility] 07-30-2024 13:54-0400 SaO2% (BldA) [Mass fraction] 94 % Reginald Aragon MD Work Phone: [facility] 07-30-2024 13:54-0400 Systolic blood pressure 96 mm[Hg] Reginald Aragon MD Work Phone: [facility] 03-14-2023 12:45-0400 Body height 167.7 cm Reginald Aragon MD Work Phone: [facility] 03-14-2023 12:45-0400 Body temperature 97.7 [degF] Reginald Aragon MD Work Phone: [facility] 06-15-2023 12:45-0400 Body weight 119.93 kg Reginald Aragon MD Work Phone: [facility] 03-14-2023 12:45-0400 Diastolic blood pressure 63 mm[Hg] Reginald Aragon MD Work Phone: [facility] 03-14-2023 12:45-0400 Heart rate 68 /min Reginald Aragon MD Work Phone: [facility] 03-14-2023 12:45-0400 Respiratory rate 16 /min Reginald Aragon MD Work Phone: [facility] 03-14-2023 12:45-0400 SaO2% (BldA) [Mass fraction] 97 % Reginald Aragon MD Work Phone: [facility] 03-14-2023 12:45-0400 Systolic blood pressure 114 mm[Hg] Reginald Aragon MD Work Phone: [facility] 09-13-2022 12:57-0500 Body height 167.7 cm Samantha Benitez APRN.SLATE CUTTER OPERATOR Work Phone: [facility] 09-13-2022 12:57-0500 Body temperature 97.59 [degF] Samantha Benitez APRN.SLATE CUTTER OPERATOR Work Phone: [facility] 09-13-2022 12:57-0500 Body weight 120.47 kg Samantha Benitez APRN.SLATE CUTTER OPERATOR Work Phone: [facility] 09-13-2022 12:57-0500 Diastolic blood pressure 68 mm[Hg] Samantha Benitez APRN.SLATE CUTTER OPERATOR Work Phone: [facility] 09-13-2022 12:57-0500 Heart rate 93 /min Samantha Benitez APRN.SLATE CUTTER OPERATOR Work Phone: [facility] 09-13-2022 12:57-0500 Respiratory rate 16 /min Samantha Benitez APRN.SLATE CUTTER OPERATOR Work Phone: [facility] 09-13-2022 12:57-0500 SaO2% (BldA) [Mass fraction] 100 % Samantha Benitez APRN.SLATE CUTTER OPERATOR Work Phone: [facility] 09-13-2022 12:57-0500 Systolic blood pressure 120 mm[Hg] Samantha Benitez APRN.SLATE CUTTER OPERATOR Work Phone: [facility] 03-14-2022 14:12-0400 Body height 167.7 cm Reginald Aragon MD Work Phone: [facility] 03-14-2022 14:12-0400 Body temperature 97.81 [degF] Reginald Aragon MD Work Phone: [facility] 03-14-2022 14:12-0400 Body weight 120.57 kg Reginald Aragon MD Work Phone: [facility] 03-14-2022 14:12-0400 Diastolic blood pressure 76 mm[Hg] Reginald Aragon MD Work Phone: [facility] 03-14-2022 14:12-0400 Heart rate 98 /min Reginald Aragon MD Work Phone: [facility] 03-14-2022 14:12-0400 Respiratory rate 16 /min Reginald Aragon MD Work Phone: [facility] 03-14-2022 14:12-0400 SaO2% (BldA) [Mass fraction] 95 % Reginald Aragon MD Work Phone: [facility] 03-14-2022 14:12-0400 Systolic blood pressure 114 mm[Hg] Reginald Aragon MD Work Phone: [facility] Encounters Encounter Date Encounter Type Care Provider Facility Start: 03-07-2026 ambulatory MINERALOGY TEACHER [place] [facility] Fac[facility] [place] Start: 10-06-2025 ambulatory MINERALOGY TEACHER [place] [facility] [place] Start: 06-23-2025 End: 06-23-2025 Bamboo flowsheet Deann Hoffman CCC-A Work Phone: [facility] Start: 06-23-2025 End: 06-23-2025 Bamboo flowsheet Deann Hoffman CCC-A Work Phone: [facility] Start: 06-09-2025 ambulatory Inderjit Ly acility:[facility] Start: 06-04-2025 ambulatory [place] ANDUJAR [facility] Start: 05-11-2025 End: 05-11-2025 ambulatory [facility] Start: 05-06-2025 End: 05-06-2025 Office outpatient new 45 minutes Pema Reynolds MD Work Phone: [facility] Comment on above: Stage 3b chronic kid marshall disease (CKD) ([facility]) (Primary Dx); CKD (chronic kidney disease), stage IV ([facility]) Start: 04-29-2025 End: 04-29-2025 Telephone encounter Scanning Provider External [facility] Start: 04-22-2025 End: 04-22-2025 ambulatory [facility] Start: 04-07-2025 End: 04-07-2025 Bamboo flowsgenaro Lombardi MD Work Phone: [facility] Start: 04-07-2025 End: 04-07-2025 Bamboo flowsheet Jim Lombardi MD Work Phone: [facility] Start: 04-07-2025 End: 04-07-2025 Office outpatient new 30 minutes Jim Lombardi MD Work Phone: [facility] Comment on above: Sensorineural hearin g loss (SNHL), bilateral (Primary Dx) Start: 04-07-2025 End: 04-07-2025 ambulatory JIM LOMBARDI Not Available Start: 04-06-2025 End: 04-06-2025 ambulatory MINERALOGY TEACHER Oh Andujar Facility:[facility] Start: 03-30-2025 End: 03-30-2025 ambulatory [facility] Start: 03-24-2025 End: 03-24-2025 Clinical Support Deann Hoffman [facility] Work Phone: [facility] Comment on above: Sensorineural hearin g loss (SNHL) of both ears (Primary Dx); Tinnitus, bilateral; Impaired auditory discrimination, bilateral Start: 03-24-2025 End: 03-24-[address] [facility] Work Phone: [facility] Start: 03-24-2025 End: 03-24-2025 [facility]: [facility] Start: 03-04-2025 End: 03-04-2025 ambulatory MINERALOGY TEACHER [place] L Con Facility[facility] [place] Start: 02-24-2025 End: 02-24-2025 ambulatory [facility] Start: 10-06-2024 End: 10-06-2024 ambulatory MINERALOGY TEACHER [facility] L Con [facility] Start: 09-09-2024 End: 09-09-2024 ambulatory [facility] Start: 08-04-2024 End: 08-04-2024 ambulatory MINERALOGY TEACHER [facility] L [facility] Start: 07-30-2024 End: 07-30-2024 Patient encounter procedure Reginald Aragon MD Work Phone: Hematology/Oncology Start: 07-30-2024 End: 07-30-2024 ambulatory Reginald Aragon MD Work Phone: Hematology/Oncology Comment on above: Malignant neoplasm o f overlapping sites of right breast in female, estrogen receptor negative (HCC) (Primary Dx) Start: 06-25-2024 End: 06-25-2024 ambulatory [facility] Start: 06-17-2024 End: 06-17-2024 ambulatory [facility] Start: 05-20-2024 End: 05-20-2024 ambulatory [facility] Start: 05-06-2024 End: 05-06-2024 ambulatory [place] ANDUJAR [facility] Start: 05-05-2024 End: 05-05-2024 ambulatory BRIAN GIL [facility] Start: 09-12-2023 Telephone encounter Carin Salgado Hematology/Oncology Comment on above: Orders Start: 09-12-2023 End: 09-12-2023 ambulatory REGINALD ARAGON Facility:[facility] Start: 06-07-2023 Telephone encounter Orly Zhao RN [...] encounter procedure Reginald Aragon MD Work Phone: [facility] Start: 10-11-2022 Refill Reginald Aragon MD Work Phone: Hematology/Oncology Comment on above: Refill Request Start: 09-13-2022 End: 09-13-2022 ambulatory Samantha Benitez APRN.SLATE CUTTER OPERATOR Work Phone: Hematology/Oncology Comment on above: Malignant neoplasm o f overlapping sites of right breast in female, estrogen receptor negative (HCC) (Primary Dx); Iron deficiency anemia secondary to inadequate dietary iron intake Start: 09-13-2022 End: 09-13-2022 Patient encounter procedure Samantha Benitez APRN.SLATE CUTTER OPERATOR Work Phone: [facility] Start: 08-14-2022 End: 08-15-[address] CHARLES LANDEROS Facility:[facility] Start: 07-23-2022 End: 07-23-2022 ambulatory MITCHEL WARREN Facility:[facility] Start: 07-16-2022 Refill Samantha Benitez APRN.SLATE CUTTER OPERATOR Work Phone: Hematology/Oncology Comment on above: [...] JAIMEE Start: 10-19-[address] CHARLES LANDEROS [facility] y:[facility] Start: 08-17-2021 End: 08-17-2021 Subsequent hospital visit by physician Arrival Time Radiology Work Phone: Radiology [facility] Comment on above: Lung nodules [R91.8] Start: 02-01-2019 End: 02-02-2019 Evaluation and management of inpatient ARACELI SANDHU Facility:[facility] Start: 01-16-2019 End: 01-17-2019 Patient encounter procedure EHAB Ada LILLIANLUIS ARMANDOSHAILAJoe Facility:[facility] Start: 12-03-2018 Patient encounter procedure Facility:[facility] Procedures Date Procedure Procedure Detail Performing [...] Author Start: 07-30-2027 Diabetes Screening Diabetes Screenin g [facility] Start: 04-13-2027 Lipid panel Lipid Screening [facility] Start: 04-13-2027 LIPID SCREEN LIPID SCREEN [facility] Start: 12-15-2026 LIPID SCREEN LIPID SCREEN [facility] Start: 09-12-2026 Diabetes Screening Diabetes Screenin g [facility] Start: 05-06-2026 Tobacco Screening Tobacco Screening [facility] Start: 03-14-2026 DIABETES SCREEN DIABETES SCREEN [facility] Start: 09-13-2025 DIABETES SCREEN DIABETES SCREEN [facility] Start: 08-05-2025 End: 08-05-2025 Patient encounter procedure 08/05/2025 2:40 PM EST Office Visit [facility]N [facility] [address] [place] [phone] Emiliana Navarro, RESISTOR TESTING MACHINE OPERATOR-SLATE CUTTER OPERATOR [address] [facility] [place] [address] PHN [facility] Start: 06-23-2025 End: 06-23-2025 Clinical Support 06/23/2025 1:00 PM EDT Clinical Support [facility] [address] [facility] [address] [place] [id number] Deann Hoffman, [facility] [address] [place] [address] Arrived [facility] Comment on above: Arrived Start: 05-31-2025 Influenza vaccination N [facility] Start: 05-13-2025 End: 05-06-2026 ODILIA Screen w/ Reflex ODILIA Screen w/ Reflex Lab Routine Stage 3b chronic kidney disease (CKD) ([facility]) Expected: 05/13/2025 (Approximate), Expires: 05/06/2026 [facility] Work Phone: Comment on above: Expected: 05/13/2025 (Approximate), Expires: 05/06/2026 Start: 05-13-2025 End: 05-06-2026 Basic metabolic 2000 panel - Serum or Plasma Basic Metabolic Panel Lab Routine Stage 3b chronic kidney disease (CKD) ([facility]) Expected: 05/13/2025 (Approximate), Expires: 05/06/2026 [facility] Comment on above: Expected: 05/13/2025 (Approximate), Expires: 05/06/2026 Start: 05-13-2025 End: 05-06-2026 Complement profile (C3 AND C4) Complement profile (C3 AND C4) Lab Routine Stage 3b chronic kidney disease (CKD) ([facility]) Expected: 05/13/2025 (Approximate), Expires: 05/06/2026 [facility] Comment on above: Expected: 05/13/2025 (Approximate), Expires: 05/06/2026 Start: 05-13-2025 End: 05-06-2026 Free light chains Free light chains Lab Routine Stage 3b chronic kidney disease (CKD) ([facility]) Expected: 05/13/2025 (Approximate), Expires: 05/06/2026 [facility] Comment on above: Expected: 05/13/2025 (Approximate), Expires: 05/06/2026 Start: 05-13-2025 End: 05-06-2026 Glomerular basement membrane IgG AB Glomerular basement membrane IgG AB Lab Routine Stage 3b chronic kidney disease (CKD) ([facility]) Expected: 05/13/2025 (Approximate), Expires: 05/06/2026 [facility] Comment on above: Expected: 05/13/2025 (Approximate), Expires: 05/06/2026 Start: 05-13-2025 End: 05-06-2026 Myeloperoxidase AB Myeloperoxidase AB Lab Routine Stage 3b chronic kidney disease (CKD) ([facility]) Expected: 05/13/2025 (Approximate), Expires: 05/06/2026 [facility] Comment on above: Expected: 05/13/2025 (Approximate), Expires: 05/06/2026 Start: 05-13-2025 End: 05-06-2026 Protein creat ratio Protein creat ratio Lab Routine Stage 3b chronic kidney disease (CKD) ([facility]) Expected: 05/13/2025 (Approximate), Expires: 05/06/2026 [facility] Comment on above: Expected: 05/13/2025 (Approximate), Expires: 05/06/2026 Start: 05-13-2025 End: 05-06-2026 Protein electrophoresis, serum Protein electrophoresis, serum Lab Routine Stage 3b chronic kidney disease (CKD) ([facility]) Expected: 05/13/2025 (Approximate), Expires: 05/06/2026 [facility] Comment on above: Expected: 05/13/2025 (Approximate), Expires: 05/06/2026 Start: 05-13-2025 End: 05-06-2026 Rheumatoid factor Rheumatoid factor Lab Routine Stage 3b chronic kidney disease (CKD) ([facility]) Expected: 05/13/2025 (Approximate), Expires: 05/06/2026 [facility] Comment on above: Expected: 05/13/2025 (Approximate), Expires: 05/06/2026 Start: 04-07-2025 End: 04-07-2025 Patient encounter procedure 04/07/2025 2:00 PM EDT Office Visit [facility] [address] [place] [address] [place] [address] Jim Lombardi MD [address] [place] [address] [place] [address] Arrived [facility] Comment on above: Arrived Start: 03-31-2025 End: 03-31-2025 Patient encounter procedure 03/31/2025 1:10 PM EDT Office Visit [facility] [address] [place] [address] Jim Lombardi MD [address] [place] [address] [facility] Start: 03-24-2025 End: 03-24-2025 Clinical Support 03/24/2025 2:30 PM EDT Clinical Support [facility] [address] [place] [address] Deann Hoffman, [facility] [address] [place] [address] Arrived [facility] Comment on above: Arrived Start: 03-14-2025 DIABETES SCREEN DIABETES SCREEN [facility] Start: 12-22-2024 COVID-19 Vaccine (7 - Mixed Product risk ) COVID-19 Vaccine (7 - Mixed Product risk ) [facility] Start: 08-17-2024 DIABETES SCREEN DIABETES SCREEN [facility] Start: 07-30-2024 End: 07-30-2024 Follow-up encounter 07/30/2024 2:15 PM EDT Visit (SP) Office Hematology/Oncology [address] [place] [address] Reginald Aragon MD [address] [address] 10 month follow up lab / left [...] Ag 27-29 [Units/volume] in Serum or Plasma [facility] Work Phone: Comment on above: Expected: 07/30/2024 , Expires: 10/29/2024 Start: 07-30-2024 End: 07-30-2024 Patient encounter procedure 07/30/2024 2:00 PM EDT Office Visit [facility] [address] [place] [address] [place] [address] 10 month follow up lab / left detailed message about moving this appt from 07-16. Asked her to call and confirm new day and time. Mailed new reminder to her home. [facility] Comment on above: 10 month follow up l ab / left detailed message about moving this appt from 07-16. Asked her to call and confirm new day and time. Mailed new reminder to her home. Start: 05-31-2024 Covid-19 Vaccine ( season) Covid-19 Vaccine () [facility] Start: 05-31-2024 Influenza vaccination Influenza Vacc ine (#1) [facility] Start: 09-30-2023 Advance Directive Discussion Advance Directive Discussion [facility] Start: 05-31-2023 Influenza vaccination INFLUENZA (#1) [facility] Start: 03-14-2023 End: 05-14-2023 Cancer Ag 27-29 [Units/volume] in Serum or Plasma CA 27.29 BLOOD Lab Routine Malignant neoplasm of overlapping sites of right breast in female, estrogen receptor negative (HCC) Iron deficiency anemia secondary to inadequate dietary iron intake Expected: 03/14/2023, Expires: 05/14/2023 [facility] Work Phone: Comment on above: Expected: 03/14/2023 , Expires: 05/14/2023 Start: 03-14-2023 End: 05-14-2023 CBC W Auto Differential panel - Blood CBC + DIFF Lab Routine Malignant neoplasm of overlapping sites of right breast in female, estrogen receptor negative (HCC) Iron deficiency anemia secondary to inadequate dietary iron intake Expected: 03/14/2023, Expires: 05/14/2023 [facility] Work Phone: Comment on above: Expected: 03/14/2023 , Expires: 05/14/2023 Start: 03-14-2023 End: 05-14-2023 Comprehensive metabolic 2000 panel - Serum or Plasma COMP METABOLIC PANEL Lab Routine Malignant neoplasm of overlapping sites of right breast in female, estrogen receptor negative (HCC) Iron deficiency anemia secondary to inadequate dietary iron intake Expected: 03/14/2023, Expires: 05/14/2023 [facility] Work Phone: Comment on above: Expected: 03/14/2023 , Expires: 05/14/2023 Start: 01-04-2023 RSV Vaccine (1 - 1-d ose 75+ series) RSV Vaccine (1 - 1-dose 75+ series) [facility] Start: 09-30-2022 ADVANCE DIRECTIVE DISCUSSION ADVANCE DIRECTIVE DISCUSSION [facility] Start: 09-30-2022 DEPRESSION ASSESSMENT DEPRESSION ASS ESSMENT [facility] Start: 09-13-2022 End: 11-13-2022 Cancer Ag 27-29 [Units/volume] in Serum or Plasma [facility] Work Phone: Comment on above: Expected: 09/13/2022 , Expires: 11/13/2022 Start: 07-03-2022 COVID-19 VACCINE (5 - Booster for Moderna series) COVID-19 VACCINE (5 - Booster for Moderna series) [facility] Start: 07-03-2022 COVID-19 VACCINE (5 - Moderna series) COVID-19 VACCINE (5 - Moderna series) [facility] Start: 05-31-2022 Influenza vaccination [facility] Start: 09-30-2021 ADVANCE DIRECTIVE DISCUSSION ADVANCE DIRECTIVE DISCUSSION [facility] Start: 09-30-2021 DEPRESSION ASSESSMENT DEPRESSION ASS ESSMENT [facility] Start: 05-27-2021 Adult depression screening assessment DEPRESSION SCREENING [facility] Start: 12-04-2015 Administration of varicella zoster vaccine Zoster (Shingles) Vaccine (1 of 2) [facility] Start: 12-04-2015 SHINGRIX VACCINE (1 of 2) SHINGRIX VACCINE (1 of 2) [facility] Start: 12-04-2015 SHINGRIX VACCINE (2 of 3) SHINGRIX VACCINE (2 of 3) [facility] Start: 01-04-2013 BONE DENSITY BONE DENSITY [facility] Start: 01-04-2013 Fall Risk Screening Fall Risk Screen ing [facility] Start: 01-04-2013 Screening for osteoporosis Bone Density Screening [facility] Start: 2008 RSV Vaccine (1 - 1-d ose 60+ series) RSV Vaccine (1 - 1-dose 60+ series) [facility] Start: 01-04-1993 COLOGUARD (FIT-DNA) COLOGUARD (FIT-D NA) [facility] Start: 01-04-1993 Colonoscopy COLONOSCOPY [facility] Start: 01-04-1993 COLORECTAL CANCER SCREENING COLORECTAL CANCER SCREENING [facility] Start: 01-04-[address] COLONOGRAPHY [facility] Start: 01-04-1993 FECAL OCCULT BLOOD FECAL OCCULT BLOO D [facility] Start: 01-04-1993 Screening for malign ant neoplasm of colon [facility] Start: 01-04-1993 SIGMOIDOSCOPY SIGMOIDOSCOPY [facility] Start: 1988 Mammography MAMMOGRAM [facility] Start: 01-04-1967 DTaP,Tdap and Td Vaccines (1 - Tdap) DTaP,Tdap and Td Vaccines (1 - Tdap) [facility] Start: 01-04-1967 Urine microalbumin profile [facility] Start: 01-04-1966 Anxiety Screening Anxiety Screening [facility] Start: 01-04-1966 Depression Screening Depression Scre ening [facility] Start: 01-04-1966 HEPATITIS C SCREENING HEPATITIS C [facility] Start: 01-04-1966 Hepatitis C screening Hepatitis C Sc [facility] Start: 1960 Depression Screening Depression Scre ening [facility] Start: 1960 Tobacco Screening Tobacco Screening [facility] Start: 01-04-1953 COVID-19 VACCINE (#1) COVID-19 VACCI NE (#1) [facility] Start: 1948 COVID-19 VACCINE (#1) COVID-19 VACCI NE (#1) [facility] End: 05-06-2026 Cytoplasmic Neutrophilic Ab (ANCA), S Cytoplasmic Neutrophilic Ab (ANCA), S Lab Routine Stage 3b chronic kidney disease (CKD) ([facility]) 1 Occurrences starting 05/06/2025 until 05/06/2026 [facility] Comment on above: 1 Occurrences starti ng 05/06/2025 until 05/06/2026 End: 04-13-2023 Diagnostic mammography computer-aided detcj uni [facility] Radiology Routine Malignant neoplasm of overlapping sites of right breast in female, estrogen receptor negative (HCC) 1 Occurrences starting 03/14/2022 until 04/13/2023 [facility] Work Phone: Comment on above: 1 Occurrences starti ng 03/14/2022 until 04/13/2023 End: 07-06-2024 RAMBO DIAGNOSTIC LEFT [facility] LEFT Radiology Routine Malignant neoplasm of overlapping sites of right breast in female, estrogen receptor negative (HCC) 1 Occurrences starting 06/07/2023 until 07/06/2024 [facility] Work Phone: Comment on above: 1 Occurrences starti ng 06/07/2023 until 07/06/2024 End: 05-06-2026 Serum Immunofixation Serum Immunofixation Lab Routine Stage 3b chronic kidney disease (CKD) ([facility]) 1 Occurrences starting 05/06/2025 until 05/06/2026 [facility] Comment on above: 1 Occurrences starti ng 05/06/2025 until 05/06/2026 End: 05-06-2026 Urinalysis Urinalysis Lab Routine Stage 3b chronic kidney disease (CKD) ([facility]) 1 Occurrences starting 05/06/2025 until 05/06/2026 [facility] Comment on above: 1 Occurrences starti ng 05/06/2025 until 05/06/2026 [facility] Immunizations Immunization Date Immunization Notes Care Provider Fa cili 06-24-2024 COVID-19 vaccine, ag e 12+ yr (MODERNA) Reginald Aragon MD Work Phone: [facility] 06-24-2024 influenza, high dose seasonal, preservative-free Reginald Aragon MD Work Phone: [facility] 06-24-2024 pneumococcal conjuga te (PCV20) vaccine, 20 valent (PREVNAR 20) Reginald Aragon MD Work Phone: [facility] 06-24-2024 respiratory syncytia l virus (RSV) vaccine, adjuvanted (AREXVY) Reginald Aragno MD Work Phone: [facility] 06-24-2024 influenza virus vacc ine, unspecified formulation Jim Lombardi MD Work Phone: [facility] 07-25-2023 COVID-19 vaccine, ag e 12+ yr (MODERNA) Reginald Aragon MD Work Phone: [facility] 07-25-2023 influenza (HD-IIV4) vaccine, age 65+ yr, high dose, quadrivalent, PF (FLUZONE HIGH-DOSE) Reginald Aragon MD Work Phone: [facility] 07-25-2023 influenza virus vacc ine, unspecified formulation [facility] Work Phone: [facility] 07-11-2022 influenza (HD-IIV4) vaccine, age 65+ yr, high dose, quadrivalent, PF (FLUZONE HIGH-DOSE) Reginald Aragon MD Work Phone: [facility] 05-08-2022 SARS-COV-2 (COVID-19 ) Vaccine, Unspecified Scanning [facility] 08-07-2021 influenza (HD-IIV4) vaccine, age 65+ yr, high dose, quadrivalent, PF (FLUZONE HIGH-DOSE) Reginald Aragon MD Work Phone: [facility] 08-07-2021 SARS-COV-2 (COVID-19 ) Vaccine, Unspecified Scanning External [facility] 11-24-2020 COVID-19 original vaccine, full dose, monovalent (MODERNA) Reginald Aragon MD Work Phone: [facility] 10-27-2020 COVID-19 original vaccine, full dose, monovalent (MODERNA) Reginald Aragon MD Work Phone: [facility] 07-07-2020 influenza (aIIV4) vaccine, age 65+ yr, quadrivalent, PF (FLUAD QUAD) Reginald Aragon MD Work Phone: [facility] 07-21-2019 influenza, high dose seasonal, preservative-free Reginald Aragon MD Work Phone: [facility] 07-21-2019 pneumococcal polysaccharide vaccine, 23 valent Reginald Aragon MD Work Phone: [facility] 06-26-2018 influenza, high dose seasonal, preservative-free Reginald Aragon MD Work Phone: [facility] 06-26-2018 pneumococcal conjuga te vaccine, 13 valent Reginald Aragon MD Work Phone: [facility] 07-17-2017 influenza, high dose seasonal, preservative-free Reginald Aragon MD Work Phone: [facility] 07-01-2017 influenza, injectabl e, quadrivalent, preservative free Reginald Aragon MD Work Phone: [facility] 10-09-2015 zoster vaccine, live Reginald roche MD Work Phone: [facility] 10-09-2015 zoster vaccine, unspecified formulation Scanning [facility] 07-11-2015 influenza, seasonal, injectable, preservative free Reginald Aragon MD Work Phone: [facility] 07-11-2015 pneumococcal conjuga te vaccine, 13 valent Reginald Aragon MD Work Phone: [facility] Payers Date Payer Category Payer Self-pay 2018 Medicaid MEDICAID [facility] MEDICAID [id number] 2018-Present [phone] [address] [place] [address] Medicaid [id number] 2017 Medicaid [id number] 1988 Medicare MEDICARE MEDICAR E A AND B [id number] 1988-Present [phone] [place] [address] Medicare [id number] 1988 Medicare [id number] 1959 Medicaid [id number] 1959 Medicare [id number] 1959 Self-pay [id number] 1948 Unknown [id number] [id number] 1948 Unknown [id number] 2.16.840.1.118519.3.579.2.647 1948 Unknown [id number] 2.16.840.1.908512.3.579.2.647 1948 Unknown [id number] 2.16.840.1.684722.3.579.2.593 1948 Unknown [id number] 2.16.840.1.275485.3.579.2.593 1948 Unknown [id number] 2.16.840.1.952034.3.579.2.593 1948 Unknown [id number] 2.16.840.1.795911.3.579.2.593 1948 Unknown [id number] 2.16.840.1.775859.3.579.2.727 1948 Unknown [id number] 2.16.840.1.652840.3.579.2.727 1948 Unknown [id number] 2.16.840.1.494548.3.579.2.727 1948 Unknown [id number] 2.840.1.456627.3.579.2.727 1948 Unknown [id number] 2.840.1.922736.3.579.2.727 1948 Unknown [id number] 2.840.1.796115.3.579.2.727 1948 Unknown [id number] 2.840.1.669887.3.579.2.1259 1948 Unknown [id number] 2.840.1.152779.3.579.2.1259 1948 Unknown [id number] 2.840.1.981838.3.579.2.128 1948 Unknown [id number] 2.840.1.298114.3.579.2.1286 1948 Unknown [id number] 2.16840.1.980693.3.579.2.128 1948 Unknown [id number] 2.16840.1.976985.3.579.2.1286 1948 Unknown [id number] 2.16840.1.145747.3.579.2.1286 Unknown [id number] [id number] Social History Date Type Detail Facility Start: 03-18-2019 End: 02-06-2024 Tobacco smoking status NHIS Never smoked tobacco [facility] Start: 03-18-2019 End: 02-06-2024 Tobacco use and exposure Smokeless tobacco non-user [facility] Start: 03-14-2022 End: 04-07-2025 Alcohol intake Lifetime non-drinker (finding) [facility] Start: 01-21-2020 History SDOH Alcohol Frequency 1 [facility] Start: 1950 Sex Assigned At Not on file [facility] Start: 07-18-2021 End: 03-14-2022 Exposure to SARS-CoV-2 (event) Not sure [facility] Start: 01-21-2020 End: 04-07-2025 History of Social function [facility] Start: 01-21-2020 End: 04-07-2025 Alcohol Use Disorder Identification Test - Consumption [AUDIT-C] [facility] How often to you hav e a drink containing alcohol? Never [facility] Average Number of Drinks Not on file [facility] Start: 05-05-2015 Sex Female (finding) [facility] NEGATED: Highlighted rowStart: NINF History of tobacco use Passive smoker [facility] Medical Equipment Procedure Code Equipment Code Equipment Origin al Text Equipment Identifier Dates Lens Iol Ultrase rt 23.0d - [id number] - [id number] Start: 06-28-2022 Lens Iol Ultrase rt 23.5d - [id number] - [id number] Start: 11-01-2022 Clinical Notes 08-17-2021 to 05-11-2025 Pema Reynolds MD - 05/06/2025 8:00 AM EDTTelephone Encounter - Gabriella Candelario - 04/29/2025 4:12 PM EDTTelephone Encounter - Gabriella Candelario - 04/29/2025 4:12 PM EDT Note Date & Type Note Facility 05-11-2025 Note [facility] Note Reason for visit: A-fib, HFpEF 05/11/25 Patient is here today for a follow up appointment per Shayy Lyon. To discuss possible ablation. Patient states she feels ok. Patient complains of BOSCH, SOB, leg swelling, fatigue. Patient is animate that she doesn't want procedure done. 02/11/24 Patient here for follow up prior to afib ablation, scheduled for 02/13/2024. Denies chest pain, SOB, palpitations, lightheadedness.syncope. She states she does not want to go forward with procedure. HPI: Kaylie Salomon is a 75 y.o. year old with past medical history [...] 104bpm PMH: Past Medical History: Diagnosis Date Abnormal ECG Arrhythmia Asthma Atrial fibrillation (CMS/HCC) Breast cancer (CMS/HCC) RADIATION 2017 Coronary artery disease Depression Diabetes (CMS/HCC) GERD (gastroesophageal reflux disease) Hypertension Myocardial infarct (CMS/HCC) Obesity BMI 40.45 PSH: Past Surgical History: Procedure Laterality Date CARDIAC CATHETERIZATION 01/16/2019 SH: Social Drivers of Health Tobacco Use: Low Risk (05/11/2025) Patient History Smoking Tobacco Use: Never Smokeless Tobacco Use: Never Passive Exposure: Not on file Alcohol Use: Not At Risk (01/21/2020) Received from [facility] AUDIT-C Frequency of Alcohol Consumption: Never Average Number of Drinks: Not on file Frequency of Binge Drinking: Not on file Financial Resource Strain: Not on file Food Insecurity: Not on file Transportation Needs: Not on file Physical Activity: Not on file Stress: Not on file Social Connections: Not on file Intimate Partner Violence: Unknown (11/21/2023) [place] Safety & Environment Fear of Current or Ex-Partner: Not on file Emotionally Abused: Not on file Physically Abused: Not on file Sexually Abused: Not on file Physically or Sexually Abused: Not on file Depression: Not at risk (07/30/2024) Received from [facility] PHQ-2 PHQ-2 score: 0 Housing Stability: Not on file Utilities: Not on file Health Literacy: Not on file Allergies: Allergies Allergen Reactions Peanut Anaphylaxis Bacitracin Bromelains Clarithromycin Other and Unknown Conjugated Estrogens Unknown Estrogens, Conjugated Flavoring Agent Unknown Other Reaction(s): Unknown Neomycin Sulfate Paclitaxel Other Numbness,tingling and elevated blood pressure Pineapple Polymyxin B Shrimp All seafood Sulfa (Sulfonamide Antibiotics) Other and Unknown Ymznmtoe-Rltwlzwewc-Wajtqgaff Rash Penicillins Rash Weight: 118kg Visit Vitals BP 116/70 (BP Location: Right arm, Patient Position: Sitting) Pulse 89 Ht 1.727 m (5' 8 ) Wt 118 kg (260 lb) SpO2 93% BMI 39.53 kg/m??? OB Status Postmenopausal Smoking [...] or throat 1 (one) time each day. cholecalciferol, vitamin D3, 50 mcg (2,000 unit) capsule Take 2,000 Units by mouth in the morning. dapagliflozin propanediol (Farxiga) 10 mg Take 1 tablet (10 mg) by mouth once daily as directed. 90 tablet 3 fluticasone (Flonase) 50 mcg/actuation nasal spray 1 (one) time each day at the same time. furosemide (Lasix) 40 mg tablet Take 2 tablets (80 mg) by mouth two times daily. (Patient taking differently: Take 80 mg by mouth two times daily. 80mg in am 40mg in pm) 240 tablet 3 loratadine (Claritin) (more content not included)... [facility] 05-06-2025 History of Present illness Narrative Images from the original note were not included. PCP: PAULA GRIGSBY Date of Service: 05/06/25 Reason for Referral: Stage IIIB chronic kidney disease Referring Physician: Oh Andujar APRN-CNP History of Present Illness Kaylie Salomon [...] fraction 55-60% cardiac echo 03/17/2025. This showed ynodyehi-sx-qrwset biatrial dilatation moderate tricuspid regurgitation and moderately elevated right-sided filling pressures Atherosclerotic coronary artery disease status post cardiac catheterization December 2018 which showed nonobstructive coronary. Artery disease Surgical, Family & Social History Surgical History: Past Surgical History: Procedure Laterality Date BREAST BIOPSY CARDIAC CATHETERIZATION EXTRACTION CATARACT INTRAOCULAR LENS Right 11/01/2022 Performed by Rosa Elena Lewis MD at [facility] EXTRACTION CATARACT INTRAOCULAR LENS Left 06/28/2022 Performed by Rosa Elena Lewis MD at [facility] MASTECTOMY Right Social History: Social History Socioeconomic [...] Interpersonal Safety: Unknown (11/21/2023) Received from [facility] Safety & Environment Fear of Current or [...] seafood Sulfa (Sulfonamide Antibiotics) Other (See Comments) Rjgvjwyq-Zisbggkrbm-Sjcdmqshu Rash Penicillins Rash Current Meds: Current Outpatient [...] Anemia Studies: Lab Results Component Value Date [id number] 05/10/2023 FOLATE >25.0 05/10/2023 Mineral and [...] of your patients! Please contact me at [phone] (Office) or [phone] (Answering service) with any questions. PEMA REYNOLDS MD [facility] This note was created with the assistance of a speech-recognition program. Although the intention is to generate a document that actually reflects the content of the visit, no guarantees can be provided that every mistake has been identified and corrected by editing. PEMA REYNOLDS MD,PhD FACP [facility] ANY QUESTIONS FEEL FREE TO CALL: 1. OFFICE [phone] 2. ANSWERING SERVICE: [phone] documented in this encounter [facility] 04-29-2025 Miscellaneous Notes LM to schedule new pt appt. documented in this encounter [facility] 04-29-2025 Telephone encounter Note LM to schedule new pt appt. [facility] 04-22-2025 Note Cardiovascular Medic ine [facility] SUBJECTIVE Kaylie Salomon is a 75 y.o. female here for follow-up. HPI PMHx: HFpEF, persistent a.fib, asthma, nonobstructive CAD, GERD, hypertension, MRDD, depression, breast Ca with radiation theray 2017 or 2019 04/22/2025 Since last seen, her weight is down [...] as well as Martir SEPULVEDA. 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 [facility] 04-22-2025 Note Patient is here toda [...] swelling. Respiratory: Positive for shortness of breath. [facility] 04-07-2025 History of Present illness Narrative [...] Noted Altered mental status, unspecified 02/10/2024 Psychosis ([facility]) 02/10/2024 Hallucination 02/10/2024 Acute hypoxemic respiratory failure ([facility]) 01/09/2019 Acute severe refractory exacerbation of asthma ([facility]) 01/09/2019 Allergic conjunctivitis of both eyes 03/30/2025 Allergic rhinitis due to allergen 03/30/2025 Asthma ([facility]) 03/22/2023 Paroxysmal A-fib ([facility]) 12/08/2021 BMI 38.0-38.9,adult 03/30/2025 Carcinoma of lower-outer quadrant of right breast in female, estrogen receptor negative ([facility]) 05/07/2019 Chronic heart failure with preserved ejection fraction ([facility]) 06/18/2023 Chronic respiratory failure ([facility]) 09/17/2023 Electrolyte and fluid disorder 09/17/2023 Gastroesophageal reflux disease 01/09/[address] elevation myocardial infarction (STEMI) 01/09/2019 Hypertensive disorder 01/09/2019 Iron deficiency anemia 06/17/2019 Iron deficiency anemia 03/30/2025 longterm 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 steroid 09/17/2023 Malignant neoplasm of overlapping sites of breast in female, estrogen receptor negative ([facility]) 04/20/2019 Mental disability 03/30/2025 Mild intermittent asthma without complication ([facility]) 03/30/2025 Morbid obesity ([facility]) 09/17/2023 Peripheral eosinophilia 03/30/2025 Severe persistent asthma ([facility]) 09/17/2023 Sinusitis 03/22/2023 Type 1 diabetes mellitus ([facility]) 01/09/2019 Vitamin D deficiency 03/30/2025 Resolved Ambulatory Problems Diagnosis Date Noted No Resolved Ambulatory Problems Past Medical History: Diagnosis Date Breast cancer ([facility]) Diabetes ([facility]) Past Surgical History: Procedure Laterality Date CT [...] camille hearing aids. documented in this encounter [facility] 03-30-2025 Note Patient is here toda y for a 6 week follow up with ECHO. Patient's caregiver states the patient is SOB, leg swelling, BOSCH, major fatigue and weight gain. Patient denies chest pain, or dizziness. Review of Systems Constitutional: Positive for malaise/fatigue and weight gain. Cardiovascular: Positive for dyspnea on exertion and leg swelling. Respiratory: Positive for shortness of breath. [facility] 03-30-2025 Note Cardiovascular Medic [facility] SUBJECTIVE Kaylie Salomon is a 75 y.o. female here for follow-up. HPI PMHx: HFpEF, persistent a.fib, asthma, nonobstructive CAD, GERD, hypertension, MRDD, depression, breast Ca with radiation theray 2017 or 2019 03/30/2025 Pt seen in office 1 month [...] as well as Martir SEPULVEDA. 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 Morbid obesity (CMS/HCC) Severe persistent asthma (CMS/HCC) Paroxysmal A-fib (CMS/HCC) Altered mental status, unspecified Hallucination Psychosis (CMS/HCC) Allergic conjunctivitis of both eyes Allergic rhinitis due to allergen BMI 38.0-38.9,adult Mental disability Mild intermittent asthma without complication Peripheral eosinophilia Vitamin D deficiency Past Medical History: Diagnosis Date Abnormal ECG Arrhythmia Asthma Atrial fibrillation (CMS/HCC) Breast cancer ([facility]/HCC) RADIATION 2017 / 2018 Coronary artery disease Depression Diabetes (CMS/HCC) GE (more content not included)... [facility] 03-24-2025 History of Present illness Narrative [...] pt when communicating. documented in this encounter [facility] 03-04-2025 Note Patient Education Caregiving Fall Prevention [...] Keep items that you use often in tqsh-mk-rkejc places. Lower the shelves around your home [...] the way. ??? Do not use floor faroese or wax that makes floors slippery. What [...] ??? Centers for Disease Control and Prevention, [place]: cdc.gov ??? National [place] on Aging: margarette.nih.gov ??? National Squires on Aging: margarette.nih.gov Contact a doctor if: [...] away. ??? Do (more content not included)... [facility] 02-24-2025 Note SUBJECTIVE Reason for Visit: [...] and high-sugar foods, including frequent consumption of Hungarian takeout, weekly cake, and salty soups. The [...] respiratory failure (CMS/HCC) Electrolyte and fluid disorder longterm 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 steroid Morbid obesity (CMS/HCC) Severe persistent asthma (CMS/HCC) Paroxysmal A-fib (CMS/HCC) Altered mental status, unspecified Hallucination Psychosis (CMS/HCC) family history includes Heart failure in her [...] Inspection and Palp (more content not included)... [facility] 09-09-2024 Note Cardiovascular Medic [facility] SUBJECTIVE Kayliedayanara Salomon is a 74 y.o. female here [...] failure team as well as Martir SEPULVEDA. Shelmith Witherell, SLATE CUTTER OPERATOR increased lasix to 40mg in the AM [...] right breast in female, estrogen receptor negative ([facility]/HCC) Atrial fibrillation status post cardioversion ([facility]/HCC) Sinusitis Type 1 diabetes mellitus ([facility]/HCC) Chronic heart failure with preserved ejection fraction ([facility]/HCC) Chronic respiratory failure ([facility]/HCC) Electrolyte and fluid disorder longterm 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 steroid Morbid obesity ([facility]/HCC) Severe persistent asthma Paroxysmal A-fib ([facility]/HCC) Altered mental status, unspecified Hallucination Psychosis ([facility]) Past Medical History: Diagnosis Date Abnormal ECG Arrhythmia Asthma Atrial fibrillation ([facility]/HCC) Breast cancer ([facility]) RADIATION 2017 Coronary artery disease Depression Diabetes ([facility]/HCC) GERD (gastroesophageal reflux disease) Hypertension Myocardial infarct ([facility]/HCC) Obesity BMI 40.45 Family History Problem [...] seafood Sulfa (Sulfonamide Antibiotics) Other and Unknown Uiidwdgx-Jaqtwmjipq-Lpgdhbnpg Rash Penicillins Rash ROS Constitutional: Positive for weight loss (9# since 06/25/2024). Cardiovascular: Positive for dyspnea on exertion ( (more content not included)... [facility] 09-09-2024 Note Patient here for 3 [...] All other systems reviewed and are negative. [facility] 07-29-2024 Note HNO ID: [id number] Author: REGINALD ARAGON MD Service: ? Author Type: Physician Type: Progress Notes Filed: 07/31/2024 06:27 Note Text: PATIENT NAME: Kaylie Salomon DATE: 07/30/2024 PRIMARY CARE PHYSICIAN: Dr. Landeros OTHER PHYSICIANS: Dr. Ramon Smith, Afua FERRARO, Dr. Brian Gil (Cardiology [facility]/[place]) Portions of this encounter note have been [...] and CHF. She is currently managed by [facility] cardiology (Dr. Gil). Otherwise she has had [...] on 03/14/2023) ALLERGIES: Clarithromycin, Conjugated Estrogens, Neosporin [Ihawwvrb-Ibwsseehco-Behctwvtt], Paclitaxel, Peanut, Penicillins, and Sulfa (Sulfonamide Antibiotics) PAST MEDICAL HISTORY: PAST MEDICAL HISTORY Diagnosis Date AF (atrial fibrillation) ([facility]) Asthma Breast cancer ([facility]) 02/[address] Landeros COPD (chronic obstructive pulmonary disease) ([facility]) Edema Hyperlipidemia Hypertension OA (osteoarthritis [...] incontinence. (more content not included)... [facility] 07-29-2024 History of Present illness Narrative PATIENT NAME: Kaylie Salomon DATE: 07/30/2024 PRIMARY CARE PHYSICIAN: Dr. Landeros OTHER PHYSICIANS: Dr. Ramon Smith, Afua FERRARO, Dr. Brian Gil (Cardiology [facility]/[place]) Portions of this encounter note have been [...] and CHF. She is currently managed by [facility] cardiology (Dr. Gil). Otherwise she has had [...] on 03/14/2023) ALLERGIES: Clarithromycin, Conjugated Estrogens, Neosporin [Uhasuhjw-Bkrxewsxnp-Kyyhnmazo], Paclitaxel, Peanut, Penicillins, and Sulfa (Sulfonamide Antibiotics) PAST MEDICAL HISTORY: PAST MEDICAL HISTORY Diagnosis Date AF (atrial fibrillation) ([facility]) Asthma Breast cancer ([facility]) 02/[address] 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 of the [...] Reginald Aragon MD documented in this encounter [facility] 06-25-2024 Note [facility]ovascular Medic [facility] SUBJECTIVE Kaylie Salomon is a [...] she has never been cardioverted before ECG 8/22/223 AF hr 104bpm Patient Active Problem List Diagnosis Acute hypoxemic respiratory failure (CMS/HCC) Acute severe refractory exacerbation of asthma History of ST elevation myocardial infarction (STEMI) Gastroesophageal reflux disease Hypertensive disorder Asthma Iron deficiency anemia secondary to inadequate dietary iron intake Carcinoma of lower-outer quadrant of right breast in female, estrogen receptor negative (CMS/HCC) Atrial fibrillation status post cardioversion ([facility]/HCC) Sinusitis Type 1 diabetes mellitus ([facility]/HCC) Chronic heart failure with preserved ejection fraction ([facility]/HCC) Chronic respiratory failure ([facility]/HCC) Electrolyte and fluid disorder statue maker 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 steroid Morbid obesity ([facility]/HCC) Severe persistent asthma Paroxysmal A-fib (CMS/HCC) Altered mental status, unspecified Hallucination Psychosis ([facility]/HCC) Past Medical History: Diagnosis Date Asthma Atrial fibrillation ([facility]/HCC) Breast cancer ([facility]/HCC) RADIATION 2017 / 2018 Coronary artery disease Depression Diabetes ([facility]/HCC) GERD (gastroesophageal reflux disease) Hypertension Myocardial infarct ([facility]/HCC) Obesity BMI 40.45 Family History Problem [...] seafood Sulfa (Sulfonamide Antibiotics) Other and Unknown Xmejifmf-Yferereihl-Wqjgkgtmh Rash Penicillins Rash Review of Systems Constitutional: [...] Current Outpatient Medications: (more content not included)... [facility] 06-25-2024 Note Patient here for 1 w qagan tayagungin follow up HFpEF. She has lost 15# [...] All other systems reviewed and are negative. 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 [facility] 06-17-2024 Note This report has been cancelled. [facility] 06-02-2024 Note Caregiver called and states [...] within the next 1-3 weeks. Elif Wells [facility] Cardiology Available 7a-5pm via [employer] Chat Pager [phone] [facility] 09-12-2023 Miscellaneous Notes Ordered faxed to Umm Ramos RN BRM/HM: Please sign pended order Orders sent to That special woman, Umm PH: [phone] Will notifijoe Monsalve, director day care center, once signed Carin Ramos RN documented in this encounter [facility] 09-12-2023 Note HNO ID: [id number] Author: Reginald rAagon MD Service: ? Author Type: Physician Type: Progress Notes Filed: 09/12/2023 7:56 PM Note Text: PATIENT NAME: Kaylie Salomon DATE: 09/12/2023 PRIMARY CARE PHYSICIAN: Dr. Landeros OTHER PHYSICIANS: Dr. Ramon Smith, [facility] Portions of this encounter note have [...] on 03/14/2023) ALLERGIES: Clarithromycin, Conjugated Estrogens, Neosporin [Csefxaho-Cunhouchcg-Kyvtcffaz], Paclitaxel, Peanut, Penicillins, and Sulfa (Sulfonamide Antibiotics) [...] (5' (more content not included)... [facility] 06-10-2023 Miscellaneous Notes Spoke to health care consultant. She has not heard from anyone regarding scheduling of Mammogram at [place]. Order faxed to [facility] scheduling. She is aware to call if [...] pending order. PSS: Pt needs scheduled at [facility]. Thanks! Orly Fraga RN documented in this encounter [facility] 04-04-2023 Miscellaneous Notes Spoke w/ Penelope. Requests that we send pt's most recent lab results to Dr Landeros's office. Results from 03/[address] Landeros's office as requested. Chary Cornelisu RN Voicemail message received from pt's sister, Penelope, regarding lab results. Call placed to sister. No answer. Message left requesting call back. Chary Cornelius RN documented in this encounter [facility] 03-14-2023 History of Present illness Narrative PATIENT NAME: Kaylie Salomon DATE: 03/14/2023 PRIMARY CARE PHYSICIAN: Dr. Charles Landeros OTHER PHYSICIANS: Dr. Ramon Smith, [facility] Portions of this encounter note [...] once daily. 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 I will [...] Reginald Aragon MD documented in this encounter [facility] 09-13-2022 History of Present illness Narrative PATIENT NAME: Kaylie Salomon DATE: 09/13/2022 PRIMARY CARE PHYSICIAN: Dr. Charles Landeros OTHER PHYSICIANS: Dr. Raomn Smith Portions of this encounter note have [...] once daily. ALLERGIES: Clarithromycin, Conjugated Estrogens, Neosporin [Fkncrlsu-Yqkjkbxovr-Rtkwaqmla], Paclitaxel, Peanut, Penicillins, and Sulfa (Sulfonamide Antibiotics) PAST MEDICAL HISTORY: PAST MEDICAL HISTORY Diagnosis Date AF (atrial fibrillation) ([facility]) Asthma Breast cancer ([facility]) 02/[address] Landeros COPD (chronic obstructive pulmonary disease) ([facility]) Edema Hyperlipidemia Hypertension OA (osteoarthritis [...] 253 RADIOLOGY/OTHER STUDIES: 06/14/2022 Left Diagnostic Mammogram ([facility]) Findings: Diagnostic category 2-benign finding: Left breast: No significant suspicious finding. Scattered benign-appearing nodules are present. No significant change has occurred. 08/17/2021 CT CHEST IMPRESSION: 1. Stable posttreatment changes, as described above. 2. Stable appearance of left lower lobe 5 mm nodule. No new or enlarging nodules are seen. 3. No evidence of bulky intrathoracic lymphadenopathy. 06/13/2021 Left Diagnostic Mammogram ([facility]) No significant suspicious finding. 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 ALLERGIES: Clarithromycin, Conjugated Estrogens, Neosporin [Udwzbybf-Yeachtckeq-Gqtcfxypj], Paclitaxel, Peanut, Penicillins, and Sulfa (Sulfonamide Antibiotics) PAST MEDICAL HISTORY: PAST MEDICAL HISTORY Diagnosis Date AF (atrial fibrillation) ([facility]) Asthma Breast cancer ([facility]) 02/[address] Landeros COPD [...] bulky intrathoracic lymphadenopathy. 06/13/2021 Left Diagnostic Mammogram ([facility]) No significant suspicious finding. 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 of the [...] Reginald Aragon MD documented in this encounter [facility] 08-17-2021 History of Present illness [...] 2021 10:20 AM documented in this encounter [facility] 08-17-2021 Nurse Note Radiology Service [...] DATE: August 17, 2021 TIME: 9:26 AM [facility] 08-17-2021 Nurse Note Radiology Service [...] TIME: 9:26 AM documented in this encounter [facility] Evaluation note Diagnosis Malignant neoplasm of overlapping sites of right breast in female, estrogen receptor negative (HCC)- Primary Other iron deficiency anemia [facility] Diagnosis Malignant neoplasm of overlapping sites of right breast in female, estrogen receptor negative (HCC)- Primary Iron deficiency anemia secondary to inadequate dietary iron intake [facility] Malignant neoplasm of overlapping sites of right breast in female, estrogen receptor negative (HCC)- Primary History of iron deficiency Personal history of diseases of blood and blood-forming organs [facility] Diagnosis Malignant neoplasm of overlapping sites of right breast in female, estrogen receptor negative (HCC)- Primary [facility] Diagnosis Malignant neoplasm of overlapping sites of right breast in female, estrogen receptor negative (HCC)- Primary Hx of total mastectomy of right breast Personal history of surgery to other organs [facility] Diagnosis Lung nodules Other nonspecific abnormal finding of lung field [facility] Diagnosis Malignant neoplasm of overlapping sites of right breast in female, estrogen receptor negative (HCC)- Primary [facility] Diagnosis Sensorineural hearing loss (SNHL) of both ears- Primary Tinnitus, bilateral Unspecified tinnitus Impaired auditory discrimination, bilateral documented in this encounter [facility]* Diagnosis Sensorineural hearing loss (SNHL), bilateral- Primary documented in this encounter [facility]* Diagnosis Stage 3b chronic kidney disease (CKD) (CMS-HCC)- Primary CKD (chronic kidney disease), stage IV (CMS-HCC) Chronic kidney disease, Stage IV (severe) documented [facility] filedocumented in this encounter [facility]ructionsNot on filedocumented in this encounter [facility] System[facility] referral (narrative)* Diagnostic Procedure Only (Routine) - Pending Review Specialty Diagnoses / Procedures Referred By Contac t Referred To Contact [facility]ING Diagnoses Malignant neoplasm of overlapping sites of right breast in female, estrogen receptor negative (HCC) Procedures RAMBO DIAGNOSTIC LT DIAGNOSTIC MAMMOGRAPHY COMPUTER-AIDED DETCJ Reginald Casas MD [address] [place] [address] [facility] Imaging [address] [place] [id number] Referral ID Status Reason Start Date Expiration Date Visits Requested Visits Authorized [id number] Pending Review Auto-Generat ed Referral 03/14/2022 04/13/2023 1 1 [facility] for referral (narrative)* Diagnostic Procedure Only (Routine) - Pending Review Specialty Diagnoses / Procedures Referred By Contac t Referred To Contact BR IMAGING Diagnoses Malignant neoplasm of overlapping sites of right breast in female, estrogen receptor negative (HCC) Procedures RAMBO DIAGNOSTIC LEFT DIAGNOSTIC MAMMOGRAPHY COMPUTER-AIDED DETCJ Shayy Villatoro PA-C [address] [place] [address] [facility] [address] [place] [phone] Referral ID Status Reason Start Date Expiration Date Visits Requested Visits Authorized [id number] Pending Review Auto-Generat ed Referral 06/07/2023 07/06/2024 1 1 [facility] for visit Narrative* Consultation (Routine) - Pending Review Specialty Diagnoses / Procedures Referred By Contac t Referred To Contact Nephrology Diagnoses CKD (chronic kidney disease), stage IV ([facility]-HCC) Rosa Lyon, RU-SLATE CUTTER OPERATOR [address] [facility] [place] [address] Phone: tel: fax: PHN [facility] [address] [place] [address] Phone: tel: fax: Referral ID Status Reason Start Date Expiration Date Visits Requested Visits Authorized [id number] Pending Review Specialty Services Required 04/29/2025 04/29/2026 1 1 [facility] Summary Purpose Family History No Family [...] Records Found Hospital Course Note MR#: [id number] [facility] Pt. Name: Kaylie Salomon Admitted: 01/31/2019 Discharged: 02/02/2019 Date of : 1950 Physician: Tramaine Sandhu MD DISCHARGE SUMMARY PRIMARY CARE PHYSICIAN: No PCP. CONSULTING SERVICE: None. ADMITTING DIAGNOSES: 1. Zujdw-gk-qgaqlff hypercapnic hypoxic respiratory failure. 2. Atrial fibrillation with rapid ventricular response. 3. Moderate persistent asthma with exacerbation. 4. Productive cough. DISCHARGE DIAGNOSES: 1. Irbuj-tj-yeulgui hypoxemic/hypercapnic respiratory failure. 2. Moderate persistent asthma [...] Referral Specialty Diagnoses / Procedures Referred By Contjigar t Referred To Contact Diagnoses Malignant neoplasm of overlapping sites of right breast in female, estrogen receptor negative (HCC) Hx of total mastectomy of right breast Procedures BREAST PROSTHESIS, MASTECTOMY BRA BREAST PROSTHESIS, MASTECTOMY BRA Reginald Aragon MD [address] [place] [address] [place] [address] Referral ID Status Reason Start Date Expiration Date V isits Requested Visits Authorized [id number] Closed Auto-Generate d Referral 09/12/2023 09/12/2024 1 1 Additional Source Comments INFORMATION SOURCE (unrecogn ized section and content) DATE CREATED AUTHOR 12/05/2018 [facility] DATE CREATED AUTHOR AUTHOR'S ORGANIZ ATION 05/13/2019 [facility] DATE CREATED AUTHOR AUTHOR'S ORGANIZ ATION 09/21/2022 [facility] DATE CREATED AUTHOR AUTHOR'S ORGANIZ ATION 08/01/[address] [facility] DATE CREATED AUTHOR AUTHOR'S ORGANIZ ATION 04/09/2025 [facility] DATE CREATED AUTHOR AUTHOR'S ORGANIZ ATION 04/11/2025 [facility] d[facility] Special[facility] DATE CREATED AUTHOR AUTHOR'S ORGANIZ ATION 04/29/2025 [facility] DATE CREATED AUTHOR AUTHOR'S ORGANIZ ATION 05/18/2025 [facility] DATE CREATED AUTHOR AUTHOR'S ORGANIZ ATION 06/06/2025 [facility] DATE CREATED AUTHOR AUTHOR'S ORGANIZ ATION 06/12/2025 [facility] Source Comments (unrecognize d section and content) In the event this informatio n is protected by the Federal Confidentiality of Alcohol and Drug Abuse Patient Records regulations: The Federal rules restrict any use of the information to criminally investigate or prosecute any alcohol or drug abuse patient.[facility] the event this information is protected by the Federal Confidentiality of Alcohol and Drug Abuse Patient Records regulations: The Federal rules restrict any use of the information to criminally investigate or prosecute any alcohol or drug abuse patient.[facility] the event this information is protected by the Federal Confidentiality of Alcohol and Drug Abuse Patient Records regulations: The Federal rules restrict any use of the information to criminally investigate or prosecute any alcohol or drug abuse patient.[facility] Center[facility] the event this information is protected by the Federal Confidentiality of Alcohol and Drug Abuse Patient Records regulations: The Federal rules restrict any use of the information to criminally investigate or prosecute any alcohol or drug abuse patient.[facility] Center[facility] the event this information is protected by the Federal Confidentiality of Alcohol and Drug Abuse Patient Records regulations: The Federal rules restrict any use of the information to criminally investigate or prosecute any alcohol or drug abuse patient.[facility] the event this information is protected by the Federal Confidentiality of Alcohol and Drug Abuse Patient Records regulations: The Federal rules restrict any use of the information to criminally investigate or prosecute any alcohol or drug abuse patient.[facility] Center[facility] the event this information is protected by the Federal Confidentiality of Alcohol and Drug Abuse Patient Records regulations: The Federal rules restrict any use of the information to criminally investigate or prosecute any alcohol or drug abuse patient.[facility] Center[facility] the event this information is protected by the Federal Confidentiality of Alcohol and Drug Abuse Patient Records regulations: The Federal rules restrict any use of the information to criminally investigate or prosecute any alcohol or drug abuse patient.[facility] Center[facility] the event this information is protected by the Federal Confidentiality of Alcohol and Drug Abuse Patient Records regulations: The Federal rules restrict any use of the information to criminally investigate or prosecute any alcohol or drug abuse patient.[facility] Center[facility] the event this information is protected by the Federal Confidentiality of Alcohol and Drug Abuse Patient Records regulations: The Federal rules restrict any use of the information to criminally investigate or prosecute any alcohol or drug abuse patient.[facility] Reason for Visit (unrecogniz ed section and content) Reason Comments Breast Cancer 6 month follow up Reason Comments Refill Request Reason Comments Breast Cancer Follow up Reason Comments Breast Cancer 1 year follow up Reason Comments Results Reason Comments Orders Reason Comments Radiology CT Reason Comments Hearing Loss Audio 03/24/25 Care Teams (unrecognized sec tion and content) Decator Operator Relationship Specialty Start Date End Date Charles Landeros MD [address] [place] [address] PCP - General Family Practice 03/11/19 Samantha Benitez, RESISTOR TESTING MACHINE OPERATOR.SLATE CUTTER OPERATOR [address] [facility] [place] [address] Physician Direct Care Staffer Hematology/Oncology 04/27/19 Reginald Aragon MD [address] [facility] [place] [address] Physician Hematology/Oncology 12/07/19 Decator Operator Relationship Specialty Start Date End Date Charles Landeros MD [address] [place] [address] PCP - General Family Medicine 03/11/19 Samantha Benitez, RESISTOR TESTING MACHINE OPERATOR.SLATE CUTTER OPERATOR [address] [facility] [place] [address] Physician Direct Care Staffer Hematology/Oncology 04/27/19 Reginald Aragon MD [address] [facility] [place] [address] Physician Hematology/Oncology 12/07/19 Decator Operator Relationship Specialty Start Date End Date Charles Landeros MD [address] [place] [address] PCP - General Family Medicine 03/11/19 Samantha Benitez, RESISTOR TESTING MACHINE OPERATOR.SLATE CUTTER OPERATOR [address] [facility] [address] Physician Direct Care Staffer Hematology/Oncology 04/27/19 Reginald Aragon MD [address] [facility] [address] Physician Hematology/Oncology 12/07/19 Decator Operator Relationship Specialty Start Date End Date Charles Landeros MD [address] [place] [address] PCP - General Family Medicine 03/11/19 Samantha Benitez, RESISTOR TESTING MACHINE OPERATOR.SLATE CUTTER OPERATOR [address] [facility] [address] Physician Direct Care Staffer Hematology/Oncology 04/27/19 Reginald Aragon MD [address] [facility] [address] Physician Hematology/Oncology 12/07/19 Decator Operator Relationship Specialty Start Date End Date Charles Landeros MD [address] [facility] [place] [address] PCP - General Family Medicine 03/11/19 Samantha Benitez, RESISTOR TESTING MACHINE OPERATOR.SLATE CUTTER OPERATOR [address] [facility] [address] Physician Direct Care Staffer Hematology/Oncology 04/27/19 Reginald Aragon MD [address] [facility] [address] Physician Hematology/Oncology 12/07/19 Decator Operator Relationship Specialty Start Date End Date Charles Landeros MD [address] [facility] [place] [address] PCP - General Family Medicine 03/11/19 Samantha Benitez, RESISTOR TESTING MACHINE OPERATOR.SLATE CUTTER OPERATOR [address] [facility] [place] [address] Physician Direct Care Staffer Hematology/Oncology 04/27/19 Reginald Aragon MD [address] [facility] [address] Physician Hematology/Oncology 12/07/19 Decator Operator Relationship Specialty Start Date End Date Charles Landeros MD [address] [place] [address] PCP - General Family Medicine 03/11/19 Samantha Benitez, RESISTOR TESTING MACHINE OPERATOR.SLATE CUTTER OPERATOR [address] [facility] [address] Physician Direct Care Staffer Hematology/Oncology 04/27/19 Reginald Aragon MD [address] [facility] [address] Physician Hematology/Oncology 12/07/19 Decator Operator Relationship Specialty Start Date End Date Charles Landeros MD [address] [place] [address] PCP - General Family Medicine 03/11/19 Samantha Benitez, RESISTOR TESTING MACHINE OPERATOR.SLATE CUTTER OPERATOR [address] [facility] [address] Physician Direct Care Staffer Hematology/Oncology 04/27/19 Reginald Aragon MD [address] [facility] [address] Physician Hematology/Oncology 12/07/19 Decator Operator Relationship Specialty Start Date End Date Charles Landeros MD [address] [place] [id number] PCP - General Family Medicine 03/11/19 Samantha Benitez APRN.CNP [address] [facility] [address] Physician Direct Care Staffer Hematology/Oncology 04/27/19 Reginald Aragon MD [address] [place] [address] [place] [address] Physician Hematology/Oncology 12/07/19 Decator Operator Relationship Specialty Start Date End Date Ishan Reyez MD [address] [place] [address] PCP - General Family Medicine 12/22/24 Oh Andujar NP [address] [place] [address] Referring Physician Family Medicine 02/11/24 Decator Operator Relationship Specialty Start Date End Date Ishan Reyez MD [address] [place] [id number] PCP - General Family Medicine 12/22/24 Oh Andujar NP [address] [place] [address] Referring Physician Family Medicine 02/11/24 Decator Operator Relationship Specialty Start Date End Date Ishan Reyez MD [address] [place] [address] PCP - General Family Medicine 12/22/24 Oh Andujar NP [address] [place] [address] [phone] Referring Physician Family Medicine 02/11/24 Decator Operator Relationship Specialty Start Date End Date Ishan Reyez MD [address] [place] [address] [phone] PCP - General Family Medicine 12/22/24 Oh Andujar NP [address] [place] [address] [phone] Referring Physician Family Medicine 02/11/24 Decator Operator Relationship Specialty Start Date End Date Oh Andujar APRN-CHETNA [address] [place] [address] [phone] PCP - General Nurse Practitioner 11/27/23 Decator Operator Relationship Specialty Start Date End Date Oh Andujar APRN-SLATE CUTTER OPERATOR [address] [place] [address] [phone] PCP - General Nurse Practitioner 11/27/23 FOR [...] BE BASED ON THE PRIMARY CLINICAL RECORDS. [employer] [facility]. provides no warranty or guarantee of the accuracy or completeness of information in this document.
[2025-06-23 15:07] LABS: Thyroid Stimulating Hormone 3.047 uIU/mL (0.358-3.740)
== END 2025-06-23 14:13 | disposition home or self-care (01) ==
LOC: LAB 14:16
PROVIDERS: PCP Nurse Practitioner; Visit Provider Nurse Practitioner
DX: J96.11 Chronic respiratory failure with hypoxia (principal); J45.50 Severe persistent asthma, uncomplicated; E03.9 Hypothyroidism, unspecified
CPT/HCPCS: 36415; 84443

== ENCOUNTER 2025-06-23 14:26 | Outpatient (OUT) | payer MEDICARE, MEDICAID, SELFPAY ==
--- OUTSIDE RECORDS SUMMARY | 2025-06-23 14:32 | XMS_ITS | CCD ---
Author Organization [facility] Care Team Providers Care Advertising Agent Name Role Phone ELTAHAWY, EHAB A Admitting Unavailable ELTAHAWY, EHAB A Attending Unavailable UNKNOWN, PHYSICIAN Referring Unavailable UNKNOWN, PHYSICIAN Primary Care Unavailable ARACELI SANDHU Admitting Unava ilable ARACELI SANDHU Attending Unava ilable UNKNOWN, PHYSICIAN Referring Unavailable UNKNOWN, PHYSICIAN Primary Care Unavailable Charles Landeros MD Primary Care Provider [phone] Emmanuel GEOSCIENCES ASSOCIATE PROFESSOR.IT SERVICE DELIVERY MANAGER, Samantha Unavailable [phone] Reginald Aragon MD Unavailable [phone] Charles Landeros MD Primary Care Provider Emmanuel GEOSCIENCES ASSOCIATE PROFESSOR.IT SERVICE DELIVERY MANAGER, Samantha Unavailable [phone] Reginald Aragon MD Unavailable Charles Landeros MD Primary Care Provider Emmanuel GEOSCIENCES ASSOCIATE PROFESSOR.CHETNA, Samantha Unavailable [phone] Reginald Aragon MD Unavailable TIGRE, DR CHARLES [...] Care Unavailable MITCHEL WARREN Unavailable Tigre DORSEY, Charles Gordon Primary Care Provider REGINALD ARAGON Referring Unavailable REGINALD ARAGON Attending Unavailable TIGRE, CHARLES GORDON Primary Care Unavailable REGINALD ARAGON Referring Unavailable TIGRE, CHARLES GORDON Primary Care Unavailable REGINALD ARAGON Referring Unavailable REGINALD ARAGON Attending Unavailable CHARLES LANDEROS EDDELICIA Primary Care Unavailable TIGRE, CHARLES PRASHANTDELICIA Primary Care Unavailable REGINALD ARAGON Referring Unavailable Con DISABILITY BENEFITS SPECIALIST, Oh Unavailable Ishan Reyez MD Primary Care Provider Con, MOUNTER BRASS WIND INSTRUMENTS Oh L Attending Unavailable Con, MOUNTER BRASS WIND INSTRUMENTS Oh L Attending Unavailable Con, MOUNTER BRASS WIND INSTRUMENTS Oh L Attending Unavailable Con, MOUNTER BRASS WIND INSTRUMENTS Oh L Attending Unavailable Con, MOUNTER BRASS WIND INSTRUMENTS Oh L Attending Unavailable Con, MOUNTER BRASS WIND INSTRUMENTS Oh L Attending Unavailable KAUSHALDEANN Attending Unavailable [...] Translations: [penicillin] Drug Allergy 01-17-20 19 [facility] (6 sources) Sulfonamides (Antibiotic); Translations: [SULFA (SULFONAMIDE ANTIBIOTICS)] Drug allergy (disorder) 01-28-20 10 [facility] (16 sources) bacitracin / neomycin / polymyxin b; Translations: [NEOMYCIN-BACITRAC IN-POLYMYXIN] Drug Allergy 05-06-20 19 Rash [facility] (17 sources) Clarithromycin; Translations: [CLARITHROMYCIN] Drug Allergy 01-28-20 10 Unknown, Other (See Comments) [facility] (16 sources) Estrogens, Conjugated (PRISON); Translations: [CONJUGATED ESTROGENS] Drug Allergy 01-28-20 10 Unknown [facility] (14 sources) PACLitaxel; Translations: [PACLITAXEL] Drug Allergy 08-24-20 Other: See Comments, Other (See Comments) [facility] (16 sources) peanut allergenic extract; Translations: [PEANUT] Drug Allergy 05-06-20 Anaphylaxis [facility] (5 sources) Penicillins; Translations: [PENICILLINS] Drug Allergy 05-06-20 19 Rash [facility] (18 sources) Sulfonamides (Antibiotic) Drug Allergy 01-28-20 10 Unknown, Other (See Comments) [facility] (9 sources) Penicillins Drug Allergy 05-06-20 [facility] (8 sources) Bacitracin / Polymyxin B; Translations: [BACITRACIN-POLYMY NIRMAL B] Drug Allergy 02-10-[address] [facility] (6 sources) Clarithromycin Propensity to adverse reactions 02-10-[address] [facility] (6 sources) PACLitaxel Drug Allergy 02-10-[address] [facility] (6 sources) Peanut oil Propensity to adverse reactions 02-10-[address] [facility] (6 sources) Penicillins Propensity to adverse reactions 02-10-[address] [facility] (6 sources) Conjugated Estrogens Propensity to adverse reactions 02-10-[address] [facility] (6 sources) Peanut-Containing Drug Products Propensity to adverse reactions 02-10-[address] [facility] (7 sources) Flavoring Agent; Translations: [FLAVORING AGENT] Drug Allergy 03-30-20 Other (See Comments) [facility] (4 sources) Shellfish-Derived Products Drug Allergy 03-30-[address] [facility] (5 sources) Bacitracin; Translations: [bacitracin] Drug Allergy 05-16-20 [facility] (1 source) peanut; Translations: [Peanuts] Food allergy (disorder) [facility] (1 source) Peanut butter; Translations: [Peanut butter] Food allergy (disorder) [facility] (6 sources) Shrimp product; Translations: [Shrimp] Food allergy (disorder) 05-07-20 [facility] (1 source) Sulfonamides (Antibiotic); Translations: [sulfa drugs] Propensity to adverse reactions (disorder) [facility] (7 sources) Pineapple; Translations: [Pineapple] Food allergy (disorder) 05-07-20 [facility] (2 sources) Penicillins Propensity to adverse reactions to drug 05-06-20 Rash [facility] (3 sources) Neomycin; Translations: [NEOMYCIN SULFATE] Drug Allergy 04-25-20 [facility] (3 sources) Polymyxin B; Translations: [POLYMYXIN B] Drug Allergy 04-25-20 [facility] (1 source) Bromelains; Translations: [BROMELAINS] Drug Allergy 04-25-20 [facility] (3 sources) Estrogens, Conjugated (PRISON); Translations: [ESTROGENS, CONJUGATED] Drug Allergy 05-16-20 [facility] (1 source) Clarithromycin Drug Allergy 05-16-20 [facility] (1 source) Fish Oils Drug Allergy 06-12-20 [facility] (1 source) Neomycin Drug Allergy 05-16-20 [facility] (1 source) PACLitaxel Drug Allergy 05-16-20 [facility] (1 source) peanut allergenic extract Drug Allergy 05-16-20 [facility] (1 source) Penicillins Drug allergy (disorder) 06-12-20 [facility] (1 source) Sulfacetamide Drug Allergy 06-12-20 [facility] (1 source) Sulfonamides (Antibiotic) Drug allergy (disorder) 05-16-20 [facility] (1 source) Sulfur Drug Allergy 06-12-20 [facility] (1 source) tree nut, unspecified Drug allergy (disorder) 06-12-20 [facility] (1 source) polymyxin B Drug allergy (disorder) 05-16-20 [facility] Medications Current Medications Medication Drug [...] 1 tablet by zohreh th once daily. [id number] 200 actuat albuterol 0.09 mg/actuat metered dose [...] Start: 01-16-2019 take 3 tablets by mo [facility] once daily furosemide (LASIX) 20 mg [...] 03/13/2019 Active take 2 tablets by mo [facility] once daily losartan (Cozaar) 50 MG [...] Active Start: 12-04-2021 take 2 tablets by [facility] once daily potassium chloride 20 mEq TbER TAKE 2 TABLETS BY MOUTH EVERY DAY 180 tablet 0 12/04/2021 Active Start: 02-16-2021 take 2 tablets by [facility] once daily potassium chloride ER (K-DUR, KLOR-CON) [...] once daily. TAKE 2 TABLETS BY MO [facility] EVERY DAY predniSONE 10 [...] Comment on above: Take 1 tablet by [facility] every 6 hours as needed. [...] by mouth once daily. 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 I reviewed nephrology's recent note, will continue current dose of losartan 50mg daily. Thanks [facility] 36 Thank you! [facility] 36 Regarding lab result s from 05/11/2025: [...] of the reduction in the losartan. Gricel Ltot seen Nephrology at [facility] Dr. Reynolds on 05/06. Office note is in patients chart. [facility] Orders Onlyon 05-13-2025 Orders Only [id number] Kaylie Salomon A 1950 F Date Provider Department Center 05/13/2025 [id number] BANKS AFUA Hardin Family History Problem Relation Age of Onset Heart failure Mother Family Status - Relation Status Age at Mother Father [facility] 3605-12-2025 36 Regarding lab result s from 05/11/2025: CHETNA Roberto MA Please have her reduce her losartan to 50mg daily , repeat BMP in 1 month. Does she have a nephrology appt coming up? [facility] Office Visiton 05-11-2025 Follow-up visit [id number] Kaylie Salomon A 1950 F Date Provider Department Center 05/11/2025 BRIAN DIXON Family History Problem Relation Age of Onset Heart failure Mother Family Status - Relation Status Age at Mother Father Level of Service:[id number] ID OFFICE/OUTPATIENT ESTABLISHED LOW MDM 20 MIN [facility] 36on 05-05-2025 36 Pt caregiver was informed [facility] 36 Yes, bambi chilowillie. Thanks [facility] 36on 05-04-2025 36 Please have her hold her bumex for 2 days then resume at 80mg in the AM, 40mg in the PM. Recheck BMP in 1 week. And can we check if she has a nephro appt scheduled please and thank you! [facility] 36 [facility] lab just called to report critical BUN of 87 and BNP of 2083. Also, she was unable to complete PFT's today, and the previous time they were ordered she wasn't able to do them either. FYI [facility] Orders Onlyon 04-26-2025 Orders Only [id number] Kaylie Salomon 1950 Date Provider Department Center 04/26/2025 [id number], MARLEN Hardin Family History Problem Relation Age of Onset Heart failure Mother Family Status - Relation Status Age at Mother Father [facility] 37on 04-22-2025 37 *EKG today shows you [...] a.fib/flutter. *Recommend you establish care with a engineering assistant. *Continue to limit your fluids to 2L a day along with eating a low sodium diet. *Continue to monitor daily weights and monitor BP and HR daily. [facility] Office Visiton 04-22-2025 Follow-up visit [id number] Kaylie Salomon 1950 Date Provider Department Center 04/22/2025 ROSA LÓPEZ Family History Problem Relation Age of Onset Heart failure Mother Family Status - Relation Status Age at Mother Father Level of Service:[id number] ID OFFICE/OUTPATIENT ESTABLISHED MOD MDM 30 MIN [facility] 36on 04-20-2025 36 Any chance they can add on a BNP? [facility] 36 Do we have the rest of her labs? [facility] 36 [facility] lab called to report a critical BUN of 89. [facility] Telephoneon 04-20-2025 Telephone [id number] TishjeffNunu schumacherKaylie A 1950 F Date Provider Department Center 04/20/2025 CassiaRADHA JARA AFUA Hardin Family History Problem Relation Age of Onset Heart failure Mother Family Status - Relation Status Age at Mother Father [facility] Ambulatory Visit Summaryon 0 04-06-2025 Ambulatory Visit [...] tablet) fluticasone nasal (fluticasone Nasal 0.05 mg/inh [place]) fluticasone-vilanterol (Breo Ellipta 100 mcg-25 mcg inhalation [...] 1:20 PM EST With: Oh Wynne Where: [address] [id number] Saturday2025 11:00 AM EDT With: Where: [address] [address]- Medications What How Much When Why Instructions [...] fluticasone nasal (fluticasone Nasal 0.05 mg/ inh [place]) See instructions INSTILL 2 SPRAYS INTO EACH [...] penicillin (U (more content not included)... Normal [facility] Family Medicine Office/Clini c Noteon 04-06-2025 [...] BID, # 180 tab(s), Refills(s) 0, Pharmacy: [id number], 164, cm, 03/04/25 11:49:00 EDT, Height/Length Dosing, 122.2, kg, 03/04/25 11:49:00 EDT, Weight Dosing Follow-up No qualifying data available Problem List/Past Medical History Ongoing (HFpEF) heart failure with preserved ejection fraction Allergic rhinitis Chronic respiratory failure with hypoxia Coronary arteriosclerosis in [place] artery Decreased ambulation status Drooling Food allergy Gastroesophageal reflux disease Generalized weakness History of breast cancer Hyperlipidemia due to type 2 diabetes mellitus Hypertensive disorder 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 Hypoxemia Iron deficiency anemia secondary to inadequate dietary iron intake 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 Normal [facility] [...] 2L a day *Limit sodium intake Normal [facility] Office Visiton 03-30-2025 Follow-up visit [id number] Kaylie Salomon 1950 Provider Department Center 03/30/2025 ROSA LÓPEZ Family History Problem Relation Age of Onset Heart failure Mother Family Status - Relation Status Age at Mother Father Level of Service:[id number] ID OFFICE/OUTPATIENT ESTABLISHED MOD MDM 30 MIN [facility] Orders Onlyon 03-30-2025 Orders Only [id number] Kaylie Salomon 1950 Provider Department Center 03/30/2025 [id number], MARLEN Hardin Family History Problem Relation Age of Onset Heart failure Mother Family Status - Relation Status Age at Mother Father [facility] 36on 03-26-2025 36 PT COMING IN MARCH 30 2025 [facility] Auditory function testson Bilateral Mild slopi ng [...] [facility] Orders Onlyon 03-05-2025 Orders Only [id number] Kaylie Salomon 1950 Date Provider Department Center 03/05/2025 [id number] [facility] Family History Problem Relation Age of Onset Heart failure Mother Family Status - Relation Status Age at Mother Father [facility] Ambulatory Visit Summaryon 0 03-04-2025 Ambulatory Visit [...] Oh Wynne This Is Your Medications List [facility] [place] (rollator walker) Oxygen (Oxygen - for [...] tablet) fluticasone nasal (fluticasone Nasal 0.05 mg/inh [place]) fluticasone-vilanterol (Breo Ellipta 100 mcg-25 mcg inhalation [...] 1:40 PM EDT With: Oh Wynne Where: [address] [address]- Saturday2025 11:00 AM EDT With: Where: [address] [address]- Medications What How Much When Why Instructions [...] fluticasone nasal (fluticasone Nasal 0.05 mg/ inh [place]) See instructions INSTILL 2 SPRAYS INTO EACH [...] DR Tab (more content not included)... Normal [facility] Family Medicine Office/Clini c Noteon 03-04-2025 [...] of clutter to prevent tripping and/or falling. [place] Advance Directives reviewed, are present at home. [...] Unspecified diastolic (congestive) heart failure) Patient follows [facility], Rosa Lyon NP as directed. Most [...] as d (more content not included)... Normal [facility] Comment on above: Result Comment: [...] for lab drawn in 1 week. Normal [facility] Orders Onlyon 02-25-2025 Orders Only [id number] Kaylie Salomon 1950 F Date Provider Department Center 02/25/2025 [id number] POE Family History Problem Relation Age of Onset Heart failure Mother Family Status - Relation Status Age at Mother Father [facility] Office Visiton 02-24-2025 Follow-up visit [id number] Kaylie Salomon 1950 F Date Provider Department Center 02/24/2025 [id number], ADAM AFUA [facility] Family History Problem Relation Age of Onset Heart failure Mother Family Status - Relation Status Age at Mother Father Level of Service:[id number] ID OFFICE/OUTPATIENT ESTABLISHED MOD MDM 30 MIN [facility] Orders Onlyon 02-18-2025 Orders Only [id number] Kaylie Salomon A 1950 F Date Provider Department Center 02/18/2025 [id number], HISTORICAL AFUA [facility] Family History Problem Relation Age of Onset Heart failure Mother Family Status - Relation Status Age at Mother [facility] Ambulatory Visit Summaryon 0 10-06-2024 Ambulatory Visit [...] Oh Wynne This Is Your Medications List [facility] [place] (chioator walker) albuterol-ipratropium (albuterol-ipratropium Inh Juanis 3 mL UD) apixaban (apixaban 5 mg oral tablet) atorvastatin (atorvastatin 40 mg Tab) benralizumab (Fasenra Pen 30 mg/mL subcutaneous solution) brexpiprazole (Rexulti 0.5 mg oral tablet) cholecalciferol (Vitamin D3 2000 intl units oral Tab) dapagliflozin (dapagliflozin 10 mg oral tablet) fluticasone nasal (fluticasone Nasal 0.05 mg/inh [place]) fluticasone-vilanterol (Breo Ellipta 100 mcg-25 mcg inhalation [...] Appointments 2024 11:00 AM EDT With: Where: [address] [address]- Saturday 1:40 PM EDT With: Oh Wynne Where: [address] [address]- Medications What How Much When Why Instructions [...] fluticasone nasal (fluticasone Nasal 0.05 mg/ inh [place]) See instructions INSTILL 2 SPRAYS INTO EACH [...] rhinitis BMI 40.0-44.9, adult Coronary arteriosclerosis in [place] artery Drooling Gastroesophageal reflux disease History of breast cancer Hyperlipidemia due to type 2 diabetes mellitus Hypertensive disorder Hypoxemia Iron deficiency anemia secondary to inadequate dietary iron intake Limited mobility halfway (current) use of inhaled steroids Lumbosacral spondylosis Major depressive disorder, recurrent episode, moderate (more content not included)... Normal [facility] Family Medicine Office/Clini c Noteon 10-06-2024 Family Medicine Office/Clinic Note Family Medicine Office/Clinic Note HPI Staff Kaylie is a 74 year old female presenting with 6 month f/u Do you have any of the following symptoms? Foot Exam: Eye Exam: Last A1C: Statin: Caregiver states pt had labs last done at [facility]. Caregiver states 2 weeks ago started [...] moderate) stable at this time. continue seeing [facility] 3. (HFpEF) heart failure with preserved ejection fraction (I50.30: Unspecified diastolic (congestive) heart failure) pt is followed by [place] 4. Chronic kidney disease, stage 3b (N18.32: Chronic kidney disease, stage 3b) BMP reviewed 5. BMI 40.0-44.9, adult (Z68.41: Body mass index [BMI] 40.0-44.9, adult) BMI education 6. 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 Normal [facility] Comment on above: Result Comment: Elec tronically Signed By: Oh Wynne\.br\Date and Time Signed: 10/06/24 12:00 EST Follow-Upon 09-09-2024 Follow-Up [id number] TishjeffNunu schumacherKaylie Ada 1950 F Date Provider Department Center 09/09/2024 ROSA LÓPEZ CARD [facility] Family History Problem Relation Age of Onset Heart failure Mother Family Status - Relation Status Age at Mother Level of Service:32225 ID OFFICE/OUTPATIENT ESTABLISHED LOW MDM 20 MIN [facility] Ambulatory Visit Summaryon 1 10-04-2023 Ambulatory Visit [...] Oh Wynne This Is Your Medications List [facility] [place] (rollator walker) albuterol-ipratropium (albuterol-ipratropium Inh Juanis 3 mL UD) apixaban (apixaban 5 mg oral tablet) atorvastatin (atorvastatin 40 mg Tab) benralizumab (Fasenra Pen 30 mg/mL subcutaneous solution) brexpiprazole (Rexulti 0.5 mg oral tablet) cholecalciferol (Vitamin D3 2000 intl units oral Tab) dapagliflozin (dapagliflozin 10 mg oral tablet) fluticasone nasal (fluticasone Nasal 0.05 mg/inh [place]) fluticasone-vilanterol (Breo Ellipta 100 mcg-25 mcg inhalation [...] EST With: Con CASTAÑEDA, Oh Fuentes Where: [address] [address]- 2024 11:00 AM EDT With: Where: [address] [address]- Medications What How Much When Why Instructions [facility] (rollator walker) See instructions Limited mobility [...] fluticasone nasal (fluticasone Nasal 0.05 mg/ inh [place]) See instructions INSTILL 2 SPRAYS INTO EACH [...] respiratory failure with hypoxia Coronary arteriosclerosis in [place] artery Drooling Gastroesophageal reflux disease Heart failure, systolic and diastolic History of breast cancer History of recent fall Hyperlipidemia due to type 2 diabetes mellitus Hypertensive disorder Hypertensive heart and 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 Hypoxemia Iron deficiency anemia secondary to inadequate dietary iron intake Limited mobil (more content not included)... Normal [facility] Family Medicine Office/Clini c Noteon 08-04-2024 [...] in remission. last mammogram was WNL. Dr. Argaon has released her from oncology. I will manage her mammograms now 9. Non-smoker (Z78.9: Other specified health status) continue not smoking 11. Obesity due to excess calories (E66.09: Other obesity due to excess calories) see above Orders: nystatin topical, 1 zev, Topical, BID, 30 gm, Refill(s) 1, [id number], 164, cm, 03/08/23 12:17:00 EDT, Height/Length Dosing, 120, kg, 03/08/23 12:17:00 EDT, Weight Dosing Follow-up No qualifying data available Problem List/Past Medical History Ongoing Adult BMI 40.0-44.9 kg/sq m Allergic rhinitis BMI 40.0-44.9, adult Chronic respiratory failure with hypoxia Coronary arteriosclerosis in [place] artery Drooling Gastroesophageal reflux disease Heart failure, systolic and diastolic History of breast cancer History of recent fall Hyperlipidemia due to type 2 diabetes mellitus Hypertensive disorder Hypertensive heart and 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 Hypoxemia Iron deficiency anemia secondary to inadequate dietary iron intake Limited mobility halfway (current) use of inhaled steroids Lumbosacral spondylosis [...] catheterization, Mastecto (more content not included)... Normal [facility] Comment on above: Result Comment: [...] Mammography: *No Oncology Consult Notes located in [facility]. Based on your medical judgment, [...] feel free to contact me at extension [phone]. Thank you! Elif Cabrera LPN Clinical Client Sales And Service Officer [place] [phone] Extension: [phone] [email or web address] Normal [facility] CBC W Auto Differential pane l (Bld)on 07-30-2024 Basophils (Bld) [#/Vol] [facility] Basophils/100 WBC (Bld) 0.1 % [facility] Differential cell count method Nom (Bld) Auto [facility] Eosinophils (Bld) [#/Vol] NINF [facility] Eosinophils/100 WBC (Bld) 0.0 % [facility] [facility] Erythrocyte distribution width (RBC) [Ratio] 17.4 % High 11.5 - 15.0 % [facility] Hematocrit (Bld) [Volume fraction] 34.2 % Low 36.0 - 46.0 % [facility] Hemoglobin (Bld) [Mass/Vol] 10.1 g/dL Low 11.5 - 15.5 g/dL [facility] Immature granulocytes (Bld) [#/Vol] 0.03 10*3/uL NINF [facility] Immature granulocytes/100 WBC (Bld) 0.3 % [facility] Interpretation and review of laboratory results Abnormal [facility] Lymphocytes (Bld) [#/Vol] 0.82 10*3/uL Low [facility] Lymphocytes/100 WBC (Bld) 9.0 % [facility] MCH (RBC) [Entitic mass] 26.4 pg 26.0 - 34.0 pg [facility] MCHC (RBC) [Mass/Vol] 29.5 g/dL Low 30.5 - 36.0 g/dL [facility] MCV (RBC) [Entitic vol] 89.5 fL 80.0 - 100.0 fL [facility] Monocytes (Bld) [#/Vol] 1.05 10*3/uL [facility] Monocytes/100 WBC (Bld) 11.5 % [facility] Neutrophils (Bld) [#/Vol] 7.23 10*3/uL [facility] Neutrophils/100 WBC (Bld) 79.1 % [facility] Nucleated RBC (Bld) [#/Vol] [facility] Nucleated RBC/100 WBC (Bld) [Ratio] 0.0 % /100 WBC [facility] Platelet mean volume (Bld) [Entitic vol] 9.6 fL 9.0 - 12.7 fL [facility] Platelets (Bld) [#/Vol] 290 10*3/uL [facility] RBC (Bld) [#/Vol] 3.82 10*6/uL Low 3.90 - 5.2 0 m/uL [facility] WBC (Bld) [#/Vol] 9.14 10*3/uL [facility] Basophils (Bld) [#/Vol] 10*3/uL Normal <0.11 [facility] Comment on above: Order Comment: Speci men Type: BLOOD SPECIMEN Ordering Facility: [facility] Address: [address] [place] [address] Performed By: #### 5 7021-8 #### [facility] CLIA [id number] [address] [place] [address] 80851 Basophils/100 WBC (Bld) 0.1 % Normal [facility] Comment on above: Order Comment: Speci men Type: BLOOD SPECIMEN Ordering Facility: [facility] Address: [address] [place] [address] Performed By: #### 5 7021-8 #### [facility] CLIA [id number] [address] [place] [address] 62206 Differential cell count method Nom (Bld) Auto Normal [facility] Comment on above: Order Comment: Speci men Type: BLOOD SPECIMEN Ordering Facility: [facility] Address: [address] [place] [address] Performed By: #### 5 7021-8 #### [facility] CLIA [id number] [address] [place] [address] 38569 Eosinophils (Bld) [#/Vol] 10*3/uL Normal <0.46 [facility] Comment on above: Order Comment: Speci men Type: BLOOD SPECIMEN Ordering Facility: [facility] Address: [address] [place] [address] Performed By: #### 5 7021-8 #### [facility] CLIA [id number] [address] [place] [address] 23021 Eosinophils/100 WBC (Bld) 0.0 % Normal [facility] Comment on above: Order Comment: Speci men Type: BLOOD SPECIMEN Ordering Facility: [facility] Address: [address] [place] [address] Performed By: #### 5 7021-8 #### [facility] CLIA [id number] [address] [place] [address] 52370 Erythrocyte distribution width (RBC) [Ratio] 17.4 % High 11.5-15.0 [facility] Comment on above: Order Comment: Speci men Type: BLOOD SPECIMEN Ordering Facility: [facility] Address: [address] [place] [address] Performed By: #### 5 7021-8 #### [facility] CLIA [id number] [address] [place] [address] 20249 Hematocrit (Bld) [Volume fraction] 34.2 % Low 36.0-46.0 [facility] Comment on above: Order Comment: Speci men Type: BLOOD SPECIMEN Ordering Facility: [facility] Address: [address] [place] [address] Performed By: #### 5 7021-8 #### [facility] CLIA [id number] [address] [place] [address] 54945 Hemoglobin (Bld) [Mass/Vol] 10.1 g/dL Low 11.5-15.5 [facility] Comment on above: Order Comment: Speci men Type: BLOOD SPECIMEN Ordering Facility: [facility] Address: [address] [place] [address] Performed By: #### 5 7021-8 #### [facility] CLIA [id number] [address] [place] [address] 16900 Immature granulocytes (Bld) [#/Vol] 0.03 10*3/uL Normal <0.10 [facility] Comment on above: Order Comment: Speci men Type: BLOOD SPECIMEN Ordering Facility: [facility] Address: [address] [place] [address] Performed By: #### 5 7021-8 #### [facility] CLIA [id number] [address] [place] [address] 92332 Immature granulocytes/100 WBC (Bld) 0.3 % Normal [facility] Comment on above: Order Comment: Speci men Type: BLOOD SPECIMEN Ordering Facility: [facility] Address: [address] [place] [address] Performed By: #### 5 7021-8 #### [facility] CLIA [id number] [address] [place] [address] 27262 Lymphocytes (Bld) [#/Vol] 0.82 10*3/uL Low 1.00-4.00 [facility] Comment on above: Order Comment: Speci men Type: BLOOD SPECIMEN Ordering Facility: [facility] Address: [address] [place] [address] Performed By: #### 5 7021-8 #### [facility] CLIA [id number] [address] [place] [address] 72530 Lymphocytes/100 WBC (Bld) 9.0 % Normal [facility] Comment on above: Order Comment: Speci men Type: BLOOD SPECIMEN Ordering Facility: [facility] Address: [address] [place] [address] 94689 Performed By: #### 5 7021-8 #### [facility] CLIA [id number] [address] [place] [address] 82079 MCH (RBC) [Entitic mass] 26.4 pg Normal 26.0-34.0 [facility] Comment on above: Order Comment: Speci men Type: BLOOD SPECIMEN Ordering Facility: [facility] Address: [address] [place] [address] 93974 Performed By: #### 5 7021-8 #### [facility] CLIA [id number] [address] [place] [address] 50254 MCHC (RBC) [Mass/Vol] 29.5 g/dL Low 30.5-36.0 [facility] Comment on above: Order Comment: Speci men Type: BLOOD SPECIMEN Ordering Facility: [facility] Address: [address] [place] [address] 51593 Performed By: #### 5 7021-8 #### [facility] CLIA [id number] [address] [place] [address] 32807 MCV (RBC) [Entitic vol] 89.5 fL Normal 80.0-100.0 [facility] Comment on above: Order Comment: Speci men Type: BLOOD SPECIMEN Ordering Facility: [facility] Address: [address] [place] [address] 94822 Performed By: #### 5 7021-8 #### [facility] CLIA [id number] [address] [place] [address] Monocytes (Bld) [#/Vol] 1.05 10*3/uL High <0.87 [facility] Comment on above: Order Comment: Speci men Type: BLOOD SPECIMEN Ordering Facility: [facility] Address: [address] [place] [address] Performed By: #### 5 7021-8 #### [facility] CLIA [id number] [address] [place] [address] 34619 Monocytes/100 WBC (Bld) 11.5 % Normal [facility] Comment on above: Order Comment: Speci men Type: BLOOD SPECIMEN Ordering Facility: [facility] Address: [address] [place] [address] Performed By: #### 5 7021-8 #### [facility] CLIA [id number] [address] [place] [address] 90631 Neutrophils (Bld) [#/Vol] 7.23 10*3/uL Normal 1.45-7.50 [facility] Comment on above: Order Comment: Speci men Type: BLOOD SPECIMEN Ordering Facility: [facility] Address: [address] [place] [address] Performed By: #### 5 7021-8 #### [facility] CLIA [id number] [address] [place] [address] 33482 Neutrophils/100 WBC (Bld) 79.1 % Normal [facility] Comment on above: Order Comment: Speci men Type: BLOOD SPECIMEN Ordering Facility: [facility] Address: [address] [place] [address] Performed By: #### 5 7021-8 #### [facility] CLIA [id number] [address] [place] [address] 28515 Nucleated RBC (Bld) [#/Vol] 10*3/uL Normal <0.01 [facility] Comment on above: Order Comment: Speci men Type: BLOOD SPECIMEN Ordering Facility: [facility] Address: [address] [place] [address] Performed By: #### 5 7021-8 #### [facility] CLIA [id number] [address] [place] [address] Nucleated RBC/100 WBC (Bld) [Ratio] 0.0 /100 WBC Normal [facility] Comment on above: Order Comment: Speci men Type: BLOOD SPECIMEN Ordering Facility: [facility] Address: [address] [place] [address] Performed By: #### 5 7021-8 #### [facility] CLIA [id number] [address] [place] [address] 34032 Platelet mean volume (Bld) [Entitic vol] 9.6 fL Normal 9.0-12.7 [facility] Comment on above: Order Comment: Speci men Type: BLOOD SPECIMEN Ordering Facility: [facility] Address: [address] [place] [address] Performed By: #### 5 7021-8 #### [facility] CLIA [id number] [address] [place] [address] 61888 Platelets (Bld) [#/Vol] 290 10*3/uL Normal 150-400 [facility] Comment on above: Order Comment: Speci men Type: BLOOD SPECIMEN Ordering Facility: [facility] Address: [address] [place] [address] 41190 Performed By: #### 5 7021-8 #### [facility] CLIA [id number] [address] [place] [address] 57168 RBC (Bld) [#/Vol] 3.82 10*6/uL Low 3.90-5.20 [facility] Comment on above: Order Comment: Speci men Type: BLOOD SPECIMEN Ordering Facility: [facility] Address: [address] [place] [address] Performed By: #### 5 7021-8 #### [facility] CLIA [id number] [address] [place] [address] 47244 WBC (Bld) [#/Vol] 9.14 10*3/uL Normal 3.70-11.00 [facility] Comment on above: Order Comment: Speci men Type: BLOOD SPECIMEN Ordering Facility: [facility] Address: [address] [place] [address] Performed By: #### 5 7021-8 #### [facility] CLIA [id number] [address] [place] [address] 80451 CNOVSPon 07-30-2024 CNOVSP Visit (SP) Office ([facility]) KAYLIE SALOMON ([id number]) 1950 F Date Time Provider Department 07/30/24 2:20 PM REGINALD ARAGON During your visit today, we recorded the following information about you: Temperature Pulse Respiration Blood pressure 97.3 degrees 81/minute 18/minute 96/63 Weight Height 114.3 kg 1.677 m Reginald Aragon MD 07/31/2024 6:27 AM Signed PATIENT NAME: Kaylie Salomon DATE: 07/30/2024 PRIMARY CARE PHYSICIAN: Dr. Landeros [facility] Dr[facility] Brian Gil (Cardiology [facility]) Portions of this encounter note have been [...] and CHF. She is currently managed by [facility] cardiology (Dr. Gil). Otherwise she has had [...] on 03/14/2023) ALLERGIES: Clarithromycin, Conjugated Estrogens, Neosporin [Dhlnxacu-Dcxhynucyz-M olymyxin], Paclitaxel, Peanut, Penicillins, and Sulfa (Sulfonamide Antibiotics) PAST MEDICAL HISTORY: PAST MEDICAL HISTORY Diagnosis Date AF (atrial fibrillation) ([facility]) Asthma Breast cancer (HCC) 02/[address] Landeros COPD (chronic obstructive pulmonary disease) ([facility]) Edema Hyperlipidemia Hypertension OA (osteoarthritis of spine) Port-A-Cath in place PAST SURGICAL HISTORY: PAST SURGICAL HISTORY Procedure Laterality Date CARDIAC CATH 12/2018 PORTOCATH PLACEMENT REVIEW OF SYSTEMS: General: No weight loss, malaise or fevers. HEENT: Negative for frequent or significant headaches, No changes in hearing or vision, no nose ble (more content not included)... Normal [facility] Cancer Ag27-29 SerPl-aCncon 07-30-2024 Cancer Ag 27-29 Qn 31.0 [arb'U]/mL Normal <38.6 C [facility] Comment on above: Order Comment: Speci men Type: BLOOD SPECIMEN Ordering Facility: [facility] Address: [address] [place] [address] Result Comment: The CA27.29 test was performed using the Siemens MyPermissionsaur XP chemiluminometric immunoassay method. Results obtained with different assay methods or kits cannot be used interchangeably. Performed By: #### 1 7842-6 #### [facility] CLIA [id number] [address] [place] [address] [place] [address] [place] Comprehensive metabolic 2000 panelOrdered By: Rosa Elena Yi on 07-30-2024 Albumin [Mass/Vol] 4.0 g/dL 3.9 - 4.9 g/dL [facility] ALP [Catalytic activity/Vol] 95 U/L 34 - 123 U/L [facility] ALT [Catalytic activity/Vol] 19 U/L 7 - 38 U/L [facility] Anion gap [Moles/Vol] 10 mmol/L 8 - 15 mmol/L [facility] AST [Catalytic activity/Vol] 21 U/L 13 - 35 U/L [facility] Bilirubin [Mass/Vol] 0.4 mg/dL 0.2 - 1 .3 mg/dL [facility] Calcium [Mass/Vol] 9.3 mg/dL 8.5 - 10. 2 mg/dL [facility] Chloride [Moles/Vol] 100 mmol/L 98 - 10 7 mmol/L [facility] CO2 [Moles/Vol] 31 mmol/L High 22 - 30 mmol/L [facility] Creatinine [Mass/Vol] 1.41 mg/dL High 0.58 - 0.96 mg/dL [facility] GFR/1.73 sq M.predicted among non-blacks MDRD (S/P/Bld) [Vol rate/Area] 39 mL/min/{1.73_m2} Low - PINF [facility] Comment on above: Estimated Glomerular Filtration [...] [Mass/Vol] 83 mg/dL 74 - 99 mg/dL [facility] Comment on above: The [place] Diabete s Association (ADA) provides guidance for [...] Standards of Medical Care in Diabetes 2016, [place] [employer] Association. Diabetes Care. 2016.39(Suppl 1). Interpretation and review of laboratory results Abnormal [facility] Potassium [Moles/Vol] 4.3 mmol/L 3.7 - 5.1 mmol/L [facility] Protein [Mass/Vol] 7.7 g/dL 6.3 - 8.0 g/dL [facility] Sodium [Moles/Vol] 141 mmol/L 136 - 144 mmol/L [facility] Urea nitrogen [Mass/Vol] 54 mg/dL High 7 - 21 mg/dL [facility] Comprehensive metabolic 2000 panelon 07-30-2024 Albumin [Mass/Vol] 4.0 g/dL Normal 3.9-4.9 [place] Comment on above: Order Comment: Jennifer stahl Type: BLOOD SPECIMEN Ordering Facility: [facility] Address: [address] [place] [address] Performed By: #### 2 4323-8 #### [facility] CLIA [id number] [address] [place] [address] 30130 ALP [Catalytic activity/Vol] 95 U/L Normal 34-123 [facility] Comment on above: Order Comment: Jennifer stahl Type: BLOOD SPECIMEN Ordering Facility: [facility] Address: [address] [place] [address] Performed By: #### 2 4323-8 #### [facility] CLIA [id number] [address] [place] [address] ALT [Catalytic activity/Vol] 19 U/L Normal 7-38 [facility] Comment on above: Order Comment: Speci men Type: BLOOD SPECIMEN Ordering Facility: [facility] Address: [address] [place] [address] Performed By: #### 2 4323-8 #### [facility] CLIA [id number] [address] [place] [address] Anion gap [Moles/Vol] 10 mmol/L Normal 8-15 [facility] Comment on above: Order Comment: Speci men Type: BLOOD SPECIMEN Ordering Facility: [facility] Address: [address] [place] [address] Performed By: #### 2 4323-8 #### [facility] CLIA [id number] [address] [place] [address] 25012 AST [Catalytic activity/Vol] 21 U/L Normal 13-35 [facility] Comment on above: Order Comment: Speci men Type: BLOOD SPECIMEN Ordering Facility: [facility] Address: [address] [place], [place] [address] Performed By: #### 2 4323-8 #### [facility] CLIA [id number] [address] [place] [address] 63143 Bilirubin [Mass/Vol] 0.4 mg/dL Normal 0.2-1.3 [facility] Comment on above: Order Comment: Speci men Type: BLOOD SPECIMEN Ordering Facility: [facility] Address: [address] [place] [address] Performed By: #### 2 4323-8 #### [facility] CLIA [id number] [address] [place] [address] 52521 Calcium [Mass/Vol] 9.3 mg/dL Normal 8.5-10.2 [place] Comment on above: Order Comment: Speci men Type: BLOOD SPECIMEN Ordering Facility: [facility] Address: [address] [place] [address] Performed By: #### 2 4323-8 #### [facility] CLIA [id number] [address] [place] [address] Chloride [Moles/Vol] 100 mmol/L Normal 98-107 [facility] Comment on above: Order Comment: Speci men Type: BLOOD SPECIMEN Ordering Facility: [facility] Address: [address] [place] [address] Performed By: #### 2 4323-8 #### [facility] CLIA [id number] [address] [place] [address] 32221 CO2 [Moles/Vol] 31 mmol/L High 22-30 [facility] Comment on above: Order Comment: Speci men Type: BLOOD SPECIMEN Ordering Facility: [facility] Address: [address] [place] [address] Performed By: #### 2 4323-8 #### [facility] CLIA [id number] [address] [place] [address] 51067 Creatinine [Mass/Vol] 1.41 mg/dL High 0.58-0.96 [facility] Comment on above: Order Comment: Speci men Type: BLOOD SPECIMEN Ordering Facility: [facility] Address: [address] [place] [address] Performed By: #### 2 4323-8 #### [facility] CLIA [id number] [address] [place] [address] 48224 Creatinine and Glomerular filtration rate.predicted panel (S/P/Bld) 39 mL/min/1.73m??? Low >=60 [facility] Comment on above: Order Comment: Speci men Type: BLOOD SPECIMEN Ordering Facility: [facility] Address: [address] [place] [address] Result Comment: Violette mated Glomerular Filtration Rate [...] GFR. Performed By: #### 2 4323-8 #### [facility] CLIA [id number] [address] [place] [address] 05986 Glucose [Mass/Vol] 83 mg/dL Normal 74-99 [place] Comment on above: Order Comment: Jennifer stahl Type: BLOOD SPECIMEN Ordering Facility: [facility] Address: [address] [place] [address] Result Comment: The [place] Diabetes Association (ADA) provides guidance for cutoff [...] Standards of Medical Care in Diabetes 2016, [place] [employer] Association. Diabetes Care. 2016.39(Suppl 1). Performed By: #### 2 4323-8 #### [facility] CLIA [id number] [address] [place] [address] 62631 Potassium [Moles/Vol] 4.3 mmol/L Normal 3.7-5.1 [facility] Comment on above: Order Comment: Jennifer stahl Type: BLOOD SPECIMEN Ordering Facility: [facility] Address: [address] [place] [address] Performed By: #### 2 4323-8 #### [facility] CLIA [id number] [address] [place] [address] 96319 Protein [Mass/Vol] 7.7 g/dL Normal 6.3-8.0 [place] Comment on above: Order Comment: Jennifer stahl Type: BLOOD SPECIMEN Ordering Facility: [facility] Address: [address] [place] [address] Performed By: #### 2 4323-8 #### [facility] CLIA [id number] [address] [place] [address] Sodium [Moles/Vol] 141 mmol/L Normal 136-144 [place] Comment on above: Order Comment: Speci men Type: BLOOD SPECIMEN Ordering Facility: [facility] Address: [address] [place] [address]73 Performed By: #### 2 4323-8 #### [facility] CLIA [id number] [address] [place] [address] Urea nitrogen [Mass/Vol] 54 mg/dL High 7-21 [facility] Comment on above: Order Comment: Speci men Type: BLOOD SPECIMEN Ordering Facility: [facility] Address: [address] [place] [address] Performed By: #### 2 4323-8 #### [facility] CLIA [id number] [address] [place] [address] 75014 3706-25-2024 37 *Continue lasix 80mg in the AM and 40mg in the PM *Continue 2L or 64 oz of daily fluid allowance *Continue to monitor daily weights *Have labs done to follow-up on kidney function Normal [facility] Visiton 06-25-2024 Follow-up visit [id number] Kaylie Salomon 1950 Date Provider Department [place] 06/25/2024 ROSA LÓPEZ AFUA [facility] Family History Problem Relation Age of Onset Heart failure Mother Family Status - Relation Status Age at Mother Level of Service:15332 ID OFFICE/OUTPATIENT ESTABLISHED MOD MDM 30 MIN Normal [facility] 37on 06-17-2024 37 *Increase lasix to 80mg (2 tablets of 40mg) BID x3 days then take lasix 80mg in the AM and 40mg in the PM. Can take second dose around 4pm. *Limit fluid intake to 2L a day. *Limit sodium intake to 2L a day Normal [facility] 06-17-2024 Follow-up visit [id number] Kaylie Salomon 1950 F Date Provider Department Center 06/17/2024 ROSA LÓPEZ Mckenzie [facility] Family History Problem Relation Age of Onset Heart failure Mother Family Status - Relation Status Age at Mother Level of Service:66193 ID OFFICE/OUTPATIENT ESTABLISHED MOD MDM 30 MIN Normal [facility] Orders Onlyon 06-02-2024 Orders Only [id number] Kaylie Salomon 1950 F Date Provider Department Center 06/02/2024 ELIF ACOSTA [facility] Family History Problem Relation Age of Onset Heart failure Mother Family Status - Relation Status Age at Mother Normal [facility] BASIC METABOLIC PANLon 05-20 Anion gap [Moles/Vol] 10 mmol/L Normal 5-15 [facility] Comment on above: Performed By: #### 3 0934-4 #### [facility] ([id number]) [address] [place] [address] 60328 #### BMP #### [facility] ([id number]) [address] [place] [address] Calcium [Mass/Vol] 9.5 mg/dL Normal 8.5-10.5 [facility] Comment on above: Performed By: #### 3 0934-4 #### [facility] ([id number]) [address] [place] [address] 14447 #### BMP #### [facility] ([id number]) [address] [place] [address] Chloride [Moles/Vol] 96 mmol/L Low 98-109 [facility] Comment on above: Performed By: #### 3 0934-4 #### [facility] ([id number]) [address] [place] [address] 99587 #### BMP #### [facility] ([id number]) [address] [place] [address] CO2 [Moles/Vol] 36 mmol/L High 22-32 [facility] Comment on above: Performed By: #### 3 0934-4 #### [facility] ([id number]) [address] [place] [address] 11695 #### BMP #### [facility] ([id number]) [address] [place] [address] Creatinine [Mass/Vol] 1.35 mg/dL High 0.40-1.00 [facility] Comment on above: Result Comment: METH OD TRACEABLE TO IDMS STANDARD Performed By: #### 3 0934-4 #### [facility] ([id number]) [address] [place] [address] 34793 #### BMP #### [facility] ([id number]) [address] [place] [address] GFR/1.73 sq M.predicted among non-blacks MDRD (S/P/Bld) [Vol rate/Area] 41 mL/min/{1.73_m2} Low >59 [facility] Comment on above: Result Comment: Reported eGFR is based on the CKD-EPI 2020 equation that does not use a race coefficient. Performed By: #### 3 0934-4 #### [facility] ([id number]) [address] [place] [address] 83036 #### BMP #### [facility] ([id number]) [address] [place] [address] Glucose [Mass/Vol] 98 mg/dL Normal 65-99 [facility] Comment on above: Performed By: #### 3 0934-4 #### [facility] ([id number]) [address] [place] [address] 35277 #### BMP #### [facility] ([id number]) [address] [place] [address] Potassium [Moles/Vol] 4.1 mmol/L Normal 3.5-5.0 [facility] Comment on above: Performed By: #### 3 0934-4 #### [facility] ([id number]) [address] [place] [address] 82303 #### BMP #### [facility] ([id number]) [address] [place] [address] Sodium [Moles/Vol] 142 mmol/L Normal 134-146 [facility] Comment on above: Performed By: #### 3 0934-4 #### [facility] ([id number]) [address] [place] [address] 976[address] #### BMP #### [facility] ([id number]) [address], [address] [place] [address] Urea nitrogen [Mass/Vol] 30 mg/dL High 5-27 [facility] Comment on above: Performed By: #### 3 0934-4 #### [facility] ([id number]) [address] [place] [address] 920[address] #### BMP #### [facility] ([id number]) [address], [address] [place] [address] Natriuretic peptide B [Mass/ Vol]on 05-20-2024 Natriuretic peptide B (Bld) [Mass/Vol] 359 pg/mL High <100.0 [facility] Comment on above: Performed By: #### 3 0934-4 #### [facility] ([id number]) [address] [place] [address] 26209 #### BMP #### [facility] ([id number]) [address], [address] [place] [address] MICROALBUMIN - ALBUMIN:CREAT ININE URINE RATIOon 05-06-2024 ALB/CREAT RATIO 42.4 mg/g creat High 0.0-30.0 [facility] Comment on above: Performed By: #### M ALBU #### [facility] ([id number]) [address], [address] [place] [address] Albumin DL <= 20 mg/L (U) [Mass/Vol] 0.8 mg/dL Normal 0.0-1.9 [facility] Comment on above: Performed By: #### M ALBU #### [facility] ([id number]) [address] [facility] [place] [address] URINE CREAT 18.87 mg/dL Normal [facility] Comment on above: Performed By: #### M ALBU #### [facility] ([id number]) [address] [facility] [place] [address] PROTEIN CREAT RATIOon 2023 RANDOM URINE PROTEIN 60 mg/L Normal <120 [facility] Comment on above: Performed By: #### U PCR #### [facility] ([id number]) [address], [address] [place] [address] U/PRO/CATERING COOK RATIO CALC 0.32 High <0.2 [facility] Comment on above: Result Comment: Neph rotic Syndrome is associated with ratios >3.5 Performed By: #### U PCR #### [facility] ([id number]) [address] [place] [address] URINE CREATININE,RDM 18.77 mg/dL Normal [facility] Comment on above: Performed By: #### U PCR #### [facility] ([id number]) [address] [address] [place] [address] HGB A1C (GLYCO-HGB)on 2023 Glucose [Mass/Vol] 134 mg/dL Normal [facility] Comment on above: Performed By: #### H A1C, 92539-2 #### [facility] ([id number]) [address], [address] [place] [address] HbA1c (Bld) [Mass fraction] 6.3 % High 4.4-5.6 [facility] Comment on above: Result Comment: NOTE ADA Guidelines Result HgbA1c Normal : less than 5.7 % Prediabetes : 5.7 % to 6.4 % Diabetes : > 6.4 % Use with caution in patients with abnormal hemoglobin variants as the half-life of red blood cells and in vivo glycation rates are affected. Performed By: #### H A1C, 11338-4 #### [facility] ([id number]) [facility] [facility], [address] [place] [address] Lipid 1996 panelon 4 Cholesterol [Mass/Vol] 95 mg/dL Low 150-200 [facility] Comment on above: Performed By: #### H A1C, 04721-4 #### [facility] ([id number]) [address] [facility], [address] [place] [address] Cholesterol in HDL [Mass/Vol] 50 mg/dL Normal >39 [facility] Comment on above: Result Comment: HDL <40 mg/dL - High Risk HDL > or = 40mg/dL- Desirable HDL >60 mg/dL - Negative Risk Performed By: #### H A1C, 71552-7 #### [facility] ([id number]) [address] [facility] [place] [address] Cholesterol in LDL [Mass/Vol] 30 mg/dL Normal <130 [facility] Comment on above: Result Comment: LDL <100 mg/dL - Desirable LDL >160 mg/dL - High Risk Performed By: #### H A1C, 77508-8 #### [facility] ([id number]) [address], [address] [place] [address] Cholesterol in VLDL [Mass/Vol] 15 mg/dL Normal 0-30 [facility] Comment on above: Performed By: #### H A1C, 87008-3 #### [facility] ([id number]) [address], [address] [place] [address] CHOLESTEROL:HDL 1.9 Normal 1.0-5.0 [facility] Comment on above: Performed By: #### H A1C, 13703-8 #### [facility] ([id number]) [address], [address] [place] [address] Triglyceride [Mass/Vol] 73 mg/dL Normal 27-150 [facility] Comment on above: Performed By: #### H A1C, 23124-7 #### [facility] ([id number]) [address], [address] [place] [address] CBC W Auto Differential pane l (Bld)on 09-12-2023 Basophils (Bld) [#/Vol] 10*3/uL Normal <0.11 [facility] Comment on above: Order Comment: Speci men Type: BLOOD SPECIMEN Ordering Facility: [facility] Address: [address] [place] [address] Performed By: #### 5 7021-8 #### [facility] CLIA [id number] [address] [place] [address]48 Basophils/100 WBC (Bld) 0.2 % Normal [facility] Comment on above: Order Comment: Speci men Type: BLOOD SPECIMEN Ordering Facility: [facility] Address: [address] [place] [address] Performed By: #### 5 7021-8 #### [facility] CLIA [id number] [address] [place] [address] [place] [address] Differential cell count method Nom (Bld) Auto Normal [facility] Comment on above: Order Comment: Speci men Type: BLOOD SPECIMEN Ordering Facility: [facility] Address: [address] [place] [address] Performed By: #### 5 7021-8 #### [facility] CLIA [id number] [address] [place] [address] Eosinophils (Bld) [#/Vol] 10*3/uL Normal <0.46 [facility] Comment on above: Order Comment: Speci men Type: BLOOD SPECIMEN Ordering Facility: [facility] Address: [address] [place] [address] Performed By: #### 5 7021-8 #### [facility] CLIA [id number] [address] [place] [address]888 Eosinophils/100 WBC (Bld) 0.0 % Normal [facility] Comment on above: Order Comment: Speci men Type: BLOOD SPECIMEN Ordering Facility: [facility] Address: [address] [place] [address] Performed By: #### 5 7021-8 #### [facility] CLIA [id number] [address] [place] [address] Erythrocyte distribution width (RBC) [Ratio] 14.5 % Normal 11.5-15.0 [facility] Comment on above: Order Comment: Speci men Type: BLOOD SPECIMEN Ordering Facility: [facility] Address: [address] [place] [address] Performed By: #### 5 7021-8 #### [facility] CLIA [id number] [address] [place] [address] Hematocrit (Bld) [Volume fraction] 38.7 % Normal 36.0-46.0 [facility] Comment on above: Order Comment: Speci men Type: BLOOD SPECIMEN Ordering Facility: [facility] Address: [address] [place] [address] Performed By: #### 5 7021-8 #### [facility] CLIA [id number] [address] [place] [address]32 Hemoglobin (Bld) [Mass/Vol] 11.7 g/dL Normal 11.5-15.5 [facility] Comment on above: Order Comment: Speci men Type: BLOOD SPECIMEN Ordering Facility: [facility] Address: [address] [place] [address] Performed By: #### 5 7021-8 #### [facility] CLIA [id number] [address] [place] [address] Immature granulocytes (Bld) [#/Vol] 0.03 10*3/uL Normal <0.10 [facility] Comment on above: Order Comment: Speci men Type: BLOOD SPECIMEN Ordering Facility: [facility] Address: [address] [place] [address] Performed By: #### 5 7021-8 #### [facility] CLIA [id number] [address] [place] [address] 26031 Immature granulocytes/100 WBC (Bld) 0.3 % Normal [facility] Comment on above: Order Comment: Speci men Type: BLOOD SPECIMEN Ordering Facility: [facility] Address: [address] [place] [address] Performed By: #### 5 7021-8 #### [facility] CLIA [id number] [address] [place] [address]39 Lymphocytes (Bld) [#/Vol] 1.10 10*3/uL Normal 1.00-4.00 [facility] Comment on above: Order Comment: Speci men Type: BLOOD SPECIMEN Ordering Facility: [facility] Address: [address] [place] [address] Performed By: #### 5 7021-8 #### [facility] CLIA [id number] [address] [place] [address] 05540 Lymphocytes/100 WBC (Bld) 11.2 % Normal [facility] Comment on above: Order Comment: Speci men Type: BLOOD SPECIMEN Ordering Facility: [facility] Address: [address] [place] [address] Performed By: #### 5 7021-8 #### [facility] CLIA [id number] [address] [place] [address] 34084 MCH (RBC) [Entitic mass] 27.5 pg Normal 26.0-34.0 [facility] Comment on above: Order Comment: Speci men Type: BLOOD SPECIMEN Ordering Facility: [facility] Address: [address] [place] [address] Performed By: #### 5 7021-8 #### [facility] CLIA [id number] [address] [place] [address] 47889 MCHC (RBC) [Mass/Vol] 30.2 g/dL Low 30.5-36.0 [facility] Comment on above: Order Comment: Speci men Type: BLOOD SPECIMEN Ordering Facility: [facility] Address: [address] [place] [address] Performed By: #### 5 7021-8 #### [facility] CLIA [id number] [address] [place] [address] 73208 MCV (RBC) [Entitic vol] 91.1 fL Normal 80.0-100.0 [facility] Comment on above: Order Comment: Speci men Type: BLOOD SPECIMEN Ordering Facility: [facility] Address: [address] [place] [address] Performed By: #### 5 7021-8 #### [facility] CLIA [id number] [address] [place] [address] 78555 Monocytes (Bld) [#/Vol] 0.92 10*3/uL High <0.87 [facility] Comment on above: Order Comment: Speci men Type: BLOOD SPECIMEN Ordering Facility: [facility] Address: [address] [place] [address] Performed By: #### 5 7021-8 #### [facility] CLIA [id number] [address] [place] [address] 15803 Monocytes/100 WBC (Bld) 9.4 % Normal [facility] Comment on above: Order Comment: Speci men Type: BLOOD SPECIMEN Ordering Facility: [facility] Address: [address] [place] [address] Performed By: #### 5 7021-8 #### [facility] CLIA [id number] [address] [place] [address] 56025 Neutrophils (Bld) [#/Vol] 7.74 10*3/uL High 1.45-7.50 [facility] Comment on above: Order Comment: Speci men Type: BLOOD SPECIMEN Ordering Facility: [facility] Address: [address] [place] [address] Performed By: #### 5 7021-8 #### [facility] CLIA [id number] [address] [place] [address] 15365 Neutrophils/100 WBC (Bld) 78.9 % Normal [facility] Comment on above: Order Comment: Speci men Type: BLOOD SPECIMEN Ordering Facility: [facility] Address: [address] [place] [address] Performed By: #### 5 7021-8 #### [facility] CLIA [id number] [address] [place] [address] 23247 Nucleated RBC (Bld) [#/Vol] 10*3/uL Normal <0.01 [facility] Comment on above: Order Comment: Speci men Type: BLOOD SPECIMEN Ordering Facility: [facility] Address: [address] [place] [address] Performed By: #### 5 7021-8 #### [facility] CLIA [id number] [address] [place] [address] 47348 Nucleated RBC/100 WBC (Bld) [Ratio] 0.0 /100 WBC Normal [facility] Comment on above: Order Comment: Speci men Type: BLOOD SPECIMEN Ordering Facility: [facility] Address: [address] [place] [address] Performed By: #### 5 7021-8 #### [facility] CLIA [id number] [address] [place] [address] 75342 Platelet mean volume (Bld) [Entitic vol] 9.4 fL Normal 9.0-12.7 [facility] Comment on above: Order Comment: Speci men Type: BLOOD SPECIMEN Ordering Facility: [facility] Address: [address] [place] [address] Performed By: #### 5 7021-8 #### [facility] CLIA [id number] [address] [place] [address] 31858 Platelets (Bld) [#/Vol] 279 10*3/uL Normal 150-400 [facility] Comment on above: Order Comment: Speci men Type: BLOOD SPECIMEN Ordering Facility: [facility] Address: [address] [place] [address] Performed By: #### 5 7021-8 #### [facility] CLIA [id number] [address] [place] [address] 95510 RBC (Bld) [#/Vol] 4.25 10*6/uL Normal 3.90-5.20 [facility] Comment on above: Order Comment: Speci men Type: BLOOD SPECIMEN Ordering Facility: [facility] Address: [address] [place] [address] Performed By: #### 5 7021-8 #### [facility] CLIA [id number] [address] [place] [address] 51485 WBC (Bld) [#/Vol] 9.81 10*3/uL Normal 3.70-11.00 [facility] Comment on above: Order Comment: Speci men Type: BLOOD SPECIMEN Ordering Facility: [facility] Address: [address] [place] [address] Performed By: #### 5 7021-8 #### [facility] CLIA [id number] [address] [place] [address] 07941 CNOVSPon 09-12-2023 CNOVSP Visit (SP) Office ([place]) KAYLIE SALOMON ([id number]) 1950 F Date Time Provider Department 09/12/23 1:15 PM REGINALD ARAGON During your visit today, we recorded the following information about you: Temperature Pulse Respiration Blood pressure 97.7 degrees 88/minute 16/minute 108/67 Weight Height 121.6 kg 1.677 m Reginald Aragon MD 09/12/2023 7:56 PM Signed PATIENT NAME: Kaylie Salomon DATE: 09/12/2023 PRIMARY CARE PHYSICIAN: Dr. Landeros OTHER PHYSICIANS: Dr. Ramon Smith, [facility] XRT Portions of this encounter note [...] on 03/14/2023) ALLERGIES: Clarithromycin, Conjugated Estrogens, Neosporin [Vjrkffjh-Emfjrrghak-Q olymyxin], Paclitaxel, Peanut, Penicillins, and Sulfa (Sulfonamide [...] Skin: Ne (more content not included)... Normal [facility] KAYLIE SALOMON ([id number]) 1950 F Date Time Provider Department 09/12/23 CARIN RAMOS During your visit today, we recorded the following information about you: Carin Ramos RN 09/12/2023 1:42 PM Signed BRM/HM: Please sign pended order Orders sent to That special woman, [facility] PH: [phone] Will notifagustin Monsalve, managed care analyst, once signed DILCIA Velasco Natalie, RN 09/12/2023 2:59 PM Signed Ordered faxed to [facility] Ramos RN Allergies As of Date: 09/12/2023 Noted Allergy Reaction CLARITHROMYCIN 01/27/2010 16 - Unknown CONJUGATED ESTROGENS 01/27/2010 16 - Unknown NEOSPORIN (BQHLIFRS-SYFHRRUEGG-R O*05/06/2019 2 - Rash PACLITAXEL 08/24/2019 14 [...] right breast [Z90.11] Order(s):BREAST PROSTHESIS, MASTECTOMY BRA [[id number]] Order #: [id number] Prescriptions as of 09/12/2023 - BREO ELLIPTA [...] Status:Closed by CARIN RAMOS on 09/12/23 Normal [facility] Cancer Ag27-29 SerPl-aCncon 09-12-2023 Cancer Ag 27-29 Qn 31.6 [arb'U]/mL Normal <38.6 [facility] Comment on above: Order Comment: Speci men Type: BLOOD SPECIMEN Ordering Facility: [facility] Address: [address] [place] [address] Result Comment: The CA27.29 test was performed using the Siemens Centaur XP chemiluminometric immunoassay method. Results obtained with different assay methods or kits cannot be used interchangeably. Performed By: #### 1 7842-6 #### [facility] CLIA [id number] [address] [facility] [address] [id number] [address] [place] Comprehensive metabolic 2000 panelon 09-12-2023 Albumin [Mass/Vol] 4.4 g/dL Normal 3.9-4.9 [place] Comment on above: Order Comment: Speci men Type: BLOOD SPECIMEN Ordering Facility: [facility] Address: [address] [place] [address] Performed By: #### 2 4323-8 #### [facility] CLIA [id number] [address] [place] [address] 33299 ALP [Catalytic activity/Vol] 87 U/L Normal 34-123 [facility] Comment on above: Order Comment: Speci men Type: BLOOD SPECIMEN Ordering Facility: [facility] Address: [address] [place] [address] Performed By: #### 2 4323-8 #### [facility] CLIA [id number] [address] [place] [address] 17427 ALT [Catalytic activity/Vol] 11 U/L Normal 7-38 [facility] Comment on above: Order Comment: Speci men Type: BLOOD SPECIMEN Ordering Facility: [facility] Address: [address] [place] [address] Performed By: #### 2 4323-8 #### [facility] CLIA [id number] [address] [place] [address] 61135 Anion gap [Moles/Vol] 10 mmol/L Normal 9-18 [facility] Comment on above: Order Comment: Speci men Type: BLOOD SPECIMEN Ordering Facility: [facility] Address: [address] [place] [address] Performed By: #### 2 4323-8 #### [facility] CLIA [id number] [address] [place] [address] AST [Catalytic activity/Vol] 14 U/L Normal 13-35 [facility] Comment on above: Order Comment: Speci men Type: BLOOD SPECIMEN Ordering Facility: [facility] Address: [address] [place] [address] Performed By: #### 2 4323-8 #### [facility] CLIA [id number] [address] [place] [address] 88159 Bilirubin [Mass/Vol] 0.6 mg/dL Normal 0.2-1.3 [facility] Comment on above: Order Comment: Speci men Type: BLOOD SPECIMEN Ordering Facility: [facility] Address: [address] [place] [address] Performed By: #### 2 4323-8 #### [facility] CLIA [id number] [address] [place] [address] 07677 Calcium [Mass/Vol] 9.7 mg/dL Normal 8.5-10.2 [facility] Comment on above: Order Comment: Speci men Type: BLOOD SPECIMEN Ordering Facility: [facility] Address: [address] [place] [address] Performed By: #### 2 4323-8 #### [facility] CLIA [id number] [address] [place] [address] 98284 Chloride [Moles/Vol] 96 mmol/L Low 97-105 [facility] Comment on above: Order Comment: Speci men Type: BLOOD SPECIMEN Ordering Facility: [facility] Address: [address] [place] [address] Performed By: #### 2 4323-8 #### [facility] CLIA [id number] [address] [place] [address] 79719 CO2 [Moles/Vol] 31 mmol/L High 22-30 [facility] Comment on above: Order Comment: Speci men Type: BLOOD SPECIMEN Ordering Facility: [facility] Address: [address] [place], [place] [address] Performed By: #### 2 4323-8 #### [facility] CLIA [id number] [address] [place] [address] 25467 Creatinine [Mass/Vol] 1.10 mg/dL High 0.58-0.96 [facility] Comment on above: Order Comment: Jennifer stahl Type: BLOOD SPECIMEN Ordering Facility: [facility] Address: [address] [place] [address] Performed By: #### 2 4323-8 #### [facility] CLIA [id number] [address] [place] [address] 91732 Creatinine and Glomerular filtration rate.predicted panel (S/P/Bld) 53 mL/min/1.73m??? Low >=60 [facility] Comment on above: Order Comment: Jennifer stahl Type: BLOOD SPECIMEN Ordering Facility: [facility] Address: [address] [place] [address] Result Comment: Violette mated Glomerular Filtration Rate [...] GFR. Performed By: #### 2 4323-8 #### [facility] CLIA [id number] [address] [place] [address] 89111 Glucose [Mass/Vol] 115 mg/dL High 74-99 [facility] Comment on above: Order Comment: Jennifer stahl Type: BLOOD SPECIMEN Ordering Facility: [facility] Address: [address] [place] [address] Result Comment: The [place] [employer] Association (ADA) provides guidance for cutoff [...] Standards of Medical Care in Diabetes 2016, [place] [employer]. Diabetes Care. 2016.39(Suppl 1). Performed By: #### 2 4323-8 #### [facility] CLIA [id number] [address] [place] [address] 48040 Potassium [Moles/Vol] 4.4 mmol/L Normal 3.7-5.1 [facility] Comment on above: Order Comment: Speci men Type: BLOOD SPECIMEN Ordering Facility: [facility] Address: [address] [place] [address] Performed By: #### 2 4323-8 #### [facility] CLIA [id number] [address] [place] [address] 86735 Protein [Mass/Vol] 7.4 g/dL Normal 6.3-8.0 [facility] Comment on above: Order Comment: Speci men Type: BLOOD SPECIMEN Ordering Facility: [facility] Address: [address] [place] [id number] Performed By: #### 2 4323-8 #### [facility] CLIA [id number] [address] [place] [address] 09708 Sodium [Moles/Vol] 137 mmol/L Normal 136-144 [facility] Comment on above: Order Comment: Speci men Type: BLOOD SPECIMEN Ordering Facility: [facility] Address: [address] [place] [address] Performed By: #### 2 4323-8 #### [facility] CLIA [id number] [address] [place] [address] 49585 Urea nitrogen [Mass/Vol] 36 mg/dL High 7-21 [facility] Comment on above: Order Comment: Speci men Type: BLOOD SPECIMEN Ordering Facility: [facility] Address: [address] [place] [address] Performed By: #### 2 4323-8 #### [facility] CLIA [id number] [address] [place] [address] CBC W Auto Differential pane l (Bld)on 09-13-2022 Basophils (Bld) [#/Vol] <0.11 k/uL [facility] Basophils/100 WBC (Bld) 0.2 % [facility] Differential cell count method Nom (Bld) Auto [facility] Eosinophils (Bld) [#/Vol] <0.46 k/uL [facility] Eosinophils/100 WBC (Bld) 0.0 % [facility] Erythrocyte distribution width (RBC) [Ratio] 14.1 % 11.5 - 15.0 % [facility] Hematocrit (Bld) [Volume fraction] 38.1 % 36.0 - 46.0 % [facility] Hemoglobin (Bld) [Mass/Vol] 11.7 g/dL 11.5 - 15.5 g/dL [facility] Immature granulocytes (Bld) [#/Vol] 0.05 10*3/uL <0.10 k/uL [facility] Immature granulocytes/100 WBC (Bld) 0.5 % [facility] Lymphocytes (Bld) [#/Vol] 1.15 10*3/uL 1.00 - 4.00 k/uL [facility] Lymphocytes/100 WBC (Bld) 11.5 % [facility] MCH (RBC) [Entitic mass] 29.4 pg 26.0 - 34.0 pg [facility] MCHC (RBC) [Mass/Vol] 30.7 g/dL 30.5 - 36.0 g/dL [facility] MCV (RBC) [Entitic vol] 95.7 fL 80.0 - 100.0 fL [facility] Monocytes (Bld) [#/Vol] 0.75 10*3/uL <0.87 k/uL [facility] Monocytes/100 WBC (Bld) 7.5 % [facility] Neutrophils (Bld) [#/Vol] 8.04 10*3/uL High 1.45 - 7.50 k/uL [facility] Neutrophils/100 WBC (Bld) 80.3 % [facility] Nucleated RBC (Bld) [#/Vol] <0.01 k/uL [facility] Nucleated RBC/100 WBC (Bld) [Ratio] 0.0 /100 WBC [facility] Platelet mean volume (Bld) [Entitic vol] 10.0 fL 9.0 - 12.7 fL [facility] Platelets (Bld) [#/Vol] 267 10*3/uL 150 - 400 k/uL [facility] RBC (Bld) [#/Vol] 3.98 10*6/uL 3.90 - 5.2 0 m/uL [facility] WBC (Bld) [#/Vol] 10.01 10*3/uL 3.70 - 11 .00 k/uL [facility] Comprehensive metabolic 2000 panelon 09-13-2022 Albumin [Mass/Vol] 4.2 g/dL 3.9 - 4.9 g/dL [facility] ALP [Catalytic activity/Vol] 97 U/L 34 - 123 U/L [facility] ALT [Catalytic activity/Vol] 10 U/L 7 - 38 U/L [facility] Anion gap [Moles/Vol] 10 mmol/L 9 - 18 mmol/L [facility] AST [Catalytic activity/Vol] 12 U/L Low 13 - 35 U/L [facility] Bilirubin [Mass/Vol] 0.4 mg/dL 0.2 - 1 .3 mg/dL [facility] Calcium [Mass/Vol] 9.3 mg/dL 8.5 - 10. 2 mg/dL [facility] Chloride [Moles/Vol] 101 mmol/L 97 - 10 5 mmol/L [facility] CO2 [Moles/Vol] 29 mmol/L 22 - 30 mmol/L [facility] Creatinine [Mass/Vol] 1.02 mg/dL High 0.58 - 0.96 mg/dL [facility] Estimated Glomerular Filtration Rate 58 mL/min/1.73m Low >=60 mL/min/1.73m [facility] Glucose [Mass/Vol] 139 mg/dL High 74 - 99 mg/dL [facility] Potassium [Moles/Vol] 3.9 mmol/L 3.7 - 5.1 mmol/L [facility] Protein [Mass/Vol] 6.9 g/dL 6.3 - 8.0 g/dL [facility] Sodium [Moles/Vol] 140 mmol/L 136 - 144 mmol/L [facility] Urea nitrogen [Mass/Vol] 25 mg/dL High 7 - 21 mg/dL [facility] XR CHEST 2 Von 08-15-2022 XR [...] DEEPTI MALLORY Date: 2022-08-15 06:58 Normal [facility] BNPon 07-23-2022 Natriuretic peptide B (Bld) [Mass/Vol] 1362.0 pg/mL Critically high <=900.0 [facility] Comment on above: Performed By: #### C MADM, CMP, BNP #### [facility] [address] [address] [address] Hector Rubio CARDIAC [place] ADMITon 022 CK [Catalytic activity/Vol] 84 U/L Normal 26-192 [facility] Comment on above: Performed By: #### C MADM, CMP, BNP #### [facility] [address] [address] [address] Hector Rubio CK.MB [Mass/Vol] 2.22 ng/mL Normal <=3.60 [facility] Comment on above: Performed By: #### C MADM, CMP, BNP #### [facility] [address] [address] [address] Hector Rubio HSTROP 41.0 pg/mL Normal 4.0-51.3 [facility] Comment on above: Result Comment: CUT- OFF POINTS HAVE BEEN ESTABLISHED BASED ON THE FOURTH UNIVERSAL DEFINITIONS OF MYOCARDIAL INFARCTION. THE UPPER REFERENCE LIMIT (URL) OF TROPONIN, DEFINED THE 99TH PERCENTILE OF cTnI DISTRIBUTION IN A REFERENCE POPULATION, HAS BEEN CONFIRMED THE DECISION THRESHOLD FOR SD DIAGNOSIS. Performed By: #### C MADM, CMP, BNP #### [facility] [address] [address] [address] Hector Rubio DIONNE 95 ng/mL Critically high 9-82 [facility] Comment on above: Performed By: #### C MADM, CMP, BNP #### [facility] [address] [place] [address] Dr. Hector Rubio CBC AUTO DIFFon 07-23-2022 BASO # 0.0 103/ul Normal 0.0-0.1 [facility] Comment on above: Performed By: #### C BC #### [facility] [address] [place] [address] Dr. Hector Rubio Basophils/100 WBC (Bld) 0.1 % Critically low 0.2-2.0 [facility] Comment on above: Performed By: #### C BC #### [facility] [address] [place] [address] Dr. Hector Rubio EO # 0.0 103/ul Normal 0.0-0.7 [facility] Comment on above: Performed By: #### C BC #### [facility] [address] [place] [address] Dr. Hector Rubio Eosinophils/100 WBC (Bld) 0.0 % Critically low 0.9-7.0 [facility] Comment on above: Performed By: #### C BC #### [facility] [address] [place] [address] Dr. Hector Rubio Erythrocyte distribution width (RBC) [Ratio] 13.7 % Normal 11.0-15.0 [facility] Comment on above: Performed By: #### C BC #### [facility] [address] [place] [address] Dr. Hector Rubio Hematocrit (Bld) [Volume fraction] 38.9 % Normal 36.0-48.0 [facility] Comment on above: Performed By: #### C BC #### [facility] [address] [place] [address] Dr. Hector Rubio Hemoglobin (Bld) [Mass/Vol] 11.8 g/dL Critically low 12.0-16.0 [facility] Comment on above: Performed By: #### C BC #### [facility] [address] [place] [address] Dr. Hector Rubio IG # 0.02 10e3/ul Normal 0.00-0.03 [facility] Comment on above: Performed By: #### C BC #### [facility] [address] [place] [address] Dr. Hector Rubio IG % 0.3 % Normal 0.0-0.5 [facility] Comment on above: Performed By: #### C BC #### [facility] [address] [place] [address] Dr. Hector Rubio LYMPH # 1.0 103/ul Critically low 1.2-3.8 [facility] Comment on above: Performed By: #### C BC #### [facility] [address] [place] [address] Dr. Hector Rubio Lymphocytes/100 WBC (Bld) 12.6 % Critically low 20.5-60.0 [facility] Comment on above: Performed By: #### C BC #### [facility] [address] [place] [address] Dr. Hector Rubio MANUAL DIFF REQ NO Normal [facility] Comment on above: Performed By: #### C BC #### [facility] [address] [place] [address] Dr. Hector Rubio MCH (RBC) [Entitic mass] 29.0 pg Normal 26.7-34.0 [facility] Comment on above: Performed By: #### C BC #### [facility] [address] [place] [address] Dr. Hector Rubio MCHC (RBC) [Mass/Vol] 30.3 g/dL Normal 29.9-35.2 [facility] Comment on above: Performed By: #### C BC #### [facility] [address] [place] [address] Dr. Hector Rubio MCV (RBC) [Entitic vol] 95.6 fL Normal 81.0-99.0 [facility] Comment on above: Performed By: #### C BC #### [facility] [address] [place] [address] Dr. Hector Rubio MONO # 0.7 103/ul Normal 0.3-0.8 [facility] Comment on above: Performed By: #### C BC #### [facility] [address] [address] [address] Hector Rubio Monocytes/100 WBC (Bld) 9.0 % Normal 1.7-12.0 [facility] Comment on above: Performed By: #### C BC #### [facility] [address] [address] [address] Hector Rubio NEUT # 6.1 103/ul Normal 1.4-6.5 [facility] Comment on above: Performed By: #### C BC #### [facility] [address] [place] [address] Dr. Hector Rubio Neutrophils/100 WBC (Bld) 78.0 % Critically high 43.0-75.0 [facility] Comment on above: Performed By: #### C BC #### [facility] [address] [place] [address] Dr. Hector Rubio Platelet mean volume (Bld) [Entitic vol] 9.7 fL Normal 9.5-13.5 [facility] Comment on above: Performed By: #### C BC #### [facility] [address] [place] [address] Dr. Hector Rubio PLT 202 103/ul Normal 150-450 [facility] Comment on above: Performed By: #### C BC #### [facility] [address] [place] [address] Dr. Hector Rubio RBC 4.07 106/ul Critically low 4.20-5.40 [facility] Comment on above: Performed By: #### C BC #### [facility] [address] [place] [address] Dr. Hector Rubio WBC 7.8 103/ul Normal 4.0-11.0 [facility] Comment on above: Performed By: #### C BC #### [facility] [address] [place] [address] Dr. Hector Rubio Covid-19 PCR (CVDTBH)on 10-2 4-2022 SARS-CoV-2 (COVID-19) RNA SHLOMO+probe Ql (Unsp spec) Not detected Normal NOT DETECTED [facility] Comment on above: Result Comment: When diagnostic [...] for this test is supported by the [place] of [employer] and Human Service's declaration that [...] used). Performed By: #### C VDTBH #### [facility] [address] [place] [address] Dr. Hector Rubio PROF 14(COMP METB)on 022 Albumin [Mass/Vol] 3.7 g/dL Normal 3.4-5.0 [facility] Comment on above: Performed By: #### C MADM, CMP, BNP #### [facility] [address] [place] [address] Dr. Hector Rubio Albumin/Globulin [Mass ratio] 0.9 {ratio} Normal [facility] Comment on above: Performed By: #### C MADM, CMP, BNP #### [facility] [address] [place] [address] Dr. Hector Rubio ALP [Catalytic activity/Vol] 90 U/L Normal 46-116 [facility] Comment on above: Performed By: #### C MADM, CMP, BNP #### [facility] [address] [place] [address] Dr. Hector Rubio ALT [Catalytic activity/Vol] 17 U/L Normal 14-59 [facility] Comment on above: Performed By: #### C MADM, CMP, BNP #### [facility] [address] [address] [address] Hector Rubio Anion gap [Moles/Vol] 7.8 mmol/L Normal [facility] Comment on above: Performed By: #### C MADM, CMP, BNP #### [facility] [address] [address] [address] Hector Rubio AST [Catalytic activity/Vol] 12 U/L Critically low 15-37 [facility] Comment on above: Performed By: #### C MADM, CMP, BNP #### [facility] [address] [address] [address] Hector Rubio Bilirubin [Mass/Vol] 0.5 mg/dL Normal 0.2-1.0 [facility] Comment on above: Performed By: #### C MADM, CMP, BNP #### [facility] [address] [address] [address] Hector Rubio Calcium [Mass/Vol] 9.1 mg/dL Normal 8.5-10.1 [facility] Comment on above: Performed By: #### C MADM, CMP, BNP #### [facility] [address] [address] [address] Hector Rubio Chloride [Moles/Vol] 102 mmol/L Normal 98-107 [facility] Comment on above: Performed By: #### C MADM, CMP, BNP #### [facility] [address] [address] [address] Hector Rubio CO2 [Moles/Vol] 33.1 mmol/L Critically high 21.0-32.0 [facility] Comment on above: Performed By: #### C MADM, CMP, BNP #### [facility] [address] [address] [address] Hector Rubio Creatinine [Mass/Vol] 0.89 mg/dL Normal 0.55-1.02 [facility] Comment on above: Performed By: #### C MADM, CMP, BNP #### [facility] [address] [address] [address] Hector Rubio EGFR-AF NIGERIAN >60 Normal >=60 [facility] Comment on above: Performed By: #### C MADM, CMP, BNP #### [facility] [address] [address] [address] Hector Rubio EGFR-NON AF NIGERIAN >60 Normal >=60 [facility] Comment on above: Performed By: #### C MADM, CMP, BNP #### [facility] [address] [place] [address] Dr. Hector Rubio Globulin (S) [Mass/Vol] 4.0 g/dL Normal [facility] Comment on above: Performed By: #### C MADM, CMP, BNP #### [facility] [address] [place] [address] Dr. Hector Rubio Glucose [Mass/Vol] 118 mg/dL Critically high 74-106 [facility] Comment on above: Performed By: #### C MADM, CMP, BNP #### [facility] [address] [place] [address] Dr. Hector Rubio Potassium [Moles/Vol] 3.9 mmol/L Normal 3.5-5.1 [facility] Comment on above: Performed By: #### C MADM, CMP, BNP #### [facility] [address] [place] [address] Dr. Hector Rubio Protein [Mass/Vol] 7.7 g/dL Normal 6.4-8.2 [facility] Comment on above: Performed By: #### C MADM, CMP, BNP #### [facility] [address] [place] [address] Dr. Hector Rubio Sodium [Moles/Vol] 139 mmol/L Normal 136-145 [facility] Comment on above: Performed By: #### C MADM, CMP, BNP #### [facility] [address] [place] [address] Dr. Hector Rubio Urea nitrogen [Mass/Vol] 29.0 mg/dL Critically high 7.0-18.0 [facility] Comment on above: Performed By: #### C MADM, CMP, BNP #### [facility] [address] [place], [place] [address] Dr. Hector Rubio Urea nitrogen/Creatinine [Mass ratio] 32.6 mg/mg Normal [facility] Comment on above: Performed By: #### C MADM, CMP, BNP #### [facility] [address] [place], [place] [address] Dr. Hector Rubio XR CHEST 1 Von [...] GABRIELLE LIU Date: 2022-07-23 16:40 Normal [facility] MG MAMM DX 3D LT CADon 06-14 MG MAMM DX 3D LT CAD Patient: KAYLIE SALOMON Exam Date: 06/14/2022 : 1950 Gender:F Ordering : DR REGINALD ARAGON M.D. Admission #: [id number] Family : Order #: [id number] CLICK HERE TO VIEW EXAM CORRECTION Corrected [...] Treatments None Family Cancers None LOCATION: [facility] BREAST COMPOSITION: Scattered areas fibroglandular density. [...] M.D. on 06/14/2022 at 10:39 Dictated by: Deepit Mallory M.D. on 09/18/2022 at 09:22 Approved by: Deepti Mallory M.D. on 09/18/2022 at 09:22 Normal [facility] CT Chest W contrast Juan Jose IMPRESSION: [...] any questions regarding this interpretation, please call [phone]. If you are unable to reach us at the number above, please feel free to [facility] at [phone]. DIVISION OF RADIOLOGY * * *Final Report* [...] kidney. The upper abdomen is otherwise unremarkable. [employer] (topogram) images: No additional findings. DIVISION OF RADIOLOGY Provider, [facility] - 08/17/2021 * * *Final Report* * [...] kidney. The upper abdomen is otherwise unremarkable. [employer] (topogram) images: No additional findings. IMPRESSION IMPRESSION: [...] any questions regarding this interpretation, please call [phone]. If you are unable to reach us at the number above, please feel free to contact [facility] at [phone]. [facility] Radiology Study observation (narrative) [facility] CT Chest W contrast IVOrdere d By: [facility] Provider on 08-17-2021 [facility] BASIC METABOLIC PANELon 05-0 Calcium [Mass/Vol] 9.3 mg/dL Normal 8.6-10.3 [facility] Comment on above: Order Comment: Yes: Add to Previous draw if able Performed By: #### 0 0121, [id number] #### [facility] [address] [place] [address], [place] Chloride [Moles/Vol] 98 mmol/L Normal 98-107 [facility] Comment on above: Order Comment: Yes: Add to Previous draw if able Performed By: #### 0 0121, [id number] #### [facility] [address] [place] [address], [place] CO2 [Moles/Vol] 34 mmol/L High 21-31 [facility] Comment on above: Order Comment: Yes: Add to Previous draw if able Performed By: #### 0 0121, [id number] #### [facility] [address] [place] [address], [facility] Creatinine [Mass/Vol] 0.59 mg/dL Low 0.60-1.20 [facility] Comment on above: Order Comment: Yes: Add to Previous draw if able Performed By: #### 0 0121, 58097 #### [facility] [address] [place] [address], [place] GFR/1.73 sq M predicted among blacks MDRD (S/P/Bld) [Vol rate/Area] mL/min/{1.73_m2} Normal >60 [facility] Comment on above: Order Comment: Yes: Add to Previous draw if able Result Comment: Calc ulation may not be valid for patients over 70 years Performed By: #### 0 0121, 81909 #### [facility] [address] [place] [address], [place] GFR/1.73 sq M predicted among non-blacks MDRD (S/P/Bld) [Vol rate/Area] mL/min/{1.73_m2} Normal >60 [facility] Comment on above: Order Comment: Yes: Add to Previous draw if able Result Comment: Calc ulation may not be valid for patients over 70 years Performed By: #### 0 0121, 55981 #### [facility] [address] [place] [address], [facility] Glucose [Mass/Vol] 256 mg/dL High 70-100 The [facility] Comment on above: Order Comment: Yes: Add to Previous draw if able Performed By: #### 0 0121, 14896 #### [facility] [address] [place] [address], [facility] Potassium [Moles/Vol] 4.5 mmol/L Normal 3.5-5.1 [facility] Comment on above: Order Comment: Yes: Add to Previous draw if able Performed By: #### 0 0121, 44235 #### [facility] [address] [facility] [place] [address], [facility] Sodium [Moles/Vol] 139 mmol/L Normal 136-145 [facility] Comment on above: Order Comment: Yes: Add to Previous draw if able Performed By: #### 0 0121, 38745 #### [facility] [address] [facility] [place] [place] [address], [facility] Urea nitrogen [Mass/Vol] 21 mg/dL Normal 7-25 [facility] Comment on above: Order Comment: Yes: Add to Previous draw if able Performed By: #### 0 0121, 95286 #### [facility] [address] [facility] [place] [place] [address], [facility] CBC W/DIFFon 02-02-2019 ABS BASOPHILS 0.0 10*3/uL Normal 0.0-0.2 [facility] Comment on above: Performed By: #### 0 0121, 03496 #### [facility] [address] [facility] [place] [place] [address], [facility] ABS IMM GRANS 0.1 10*3/uL Normal 0.0-0.2 [facility] Comment on above: Performed By: #### 0 0121, 65280 #### [facility] [address] [facility] [place] [place] [address], [facility] ABS NEUTROPHILS 16.9 10*3/uL High 1.6-7.6 [facility] Comment on above: Performed By: #### 0 012, 30115 #### [facility] [address] [facility] [place] [address], [facility] Basophils/100 WBC (Bld) 0.1 % Normal 0.0-1.0 [facility] Comment on above: Performed By: #### 0 012, 56708 #### [facility] [address] [facility] [place] [place] [address], [facility] Eosinophils (Bld) [#/Vol] 0.0 10*3/uL Normal 0.0-0.5 [facility] Comment on above: Performed By: #### 0 012, 74513 #### [facility] [address] [place] [address], [facility] Eosinophils/100 WBC (Bld) 0.0 % Normal 0.0-6.0 [facility] Comment on above: Performed By: #### 0 012, 46546 #### [facility] [address] [place] [address], [facility] Erythrocyte distribution width (RBC) [Ratio] 14.3 % Normal 11.5-15.0 [facility] Comment on above: Performed By: #### 0 012, 07596 #### [facility] [address] [place] [address], [facility] Hematocrit (Bld) [Volume fraction] 37.3 % Normal 36.0-45.0 [facility] Comment on above: Performed By: #### 0 012, 50687 #### [facility] [address] [facility] [place] [place] [address], [facility] Hemoglobin (Bld) [Mass/Vol] 11.6 g/dL Low 12.0-15.0 [facility] Comment on above: Performed By: #### 0 012, 20779 #### [facility] [address] [place] [address], [facility] IMMATURE GRANS 0.4 % Normal 0.0-1.0 [facility] Comment on above: Performed By: #### 0 012, 38483 #### [facility] [address] [address], [facility] Lymphocytes (Bld) [#/Vol] 0.5 10*3/uL Low 1.2-4.0 [facility] Comment on above: Performed By: #### 0 012, 88549 #### [facility] [address] [place] [address], [facility] Lymphocytes/100 WBC (Bld) 2.5 % Low 20.0-45.0 [facility] Comment on above: Performed By: #### 0 012, 54948 #### [facility] [address] [place] [address], [facility] MCH (RBC) [Entitic mass] 28.9 pg Normal 27.0-33.0 [facility] Comment on above: Performed By: #### 0 012, 57769 #### [facility] [address] [place] [address], [facility] MCHC (RBC) [Mass/Vol] 31.1 g/dL Low 32.0-35.0 [facility] Comment on above: Performed By: #### 0 012, 66924 #### [facility] [address] [place] [address], [facility] MCV (RBC) [Entitic vol] 93.0 fL Normal 82.0-98.0 [facility] Comment on above: Performed By: #### 0 012, 34944 #### [facility] [address] [place] [address], [facility] Monocytes (Bld) [#/Vol] 0.3 10*3/uL Normal 0.1-1.0 [facility] Comment on above: Performed By: #### 0 0121, 71348 #### [facility] [address] [place] [address], [facility] MONOS 1.5 % Low 5.0-12.0 [facility] Comment on above: Performed By: #### 0 0121, 44553 #### [facility] [address] [place] [id number], [facility] Neutrophils/100 WBC (Bld) 95.5 % High 40.0-72.0 [facility] Comment on above: Performed By: #### 0 0121, 83071 #### [facility] [address] [facility] [place] [place] [address], [facility] Nucleated RBC/100 WBC (Bld) [Ratio] 0 % Normal 0-0 [facility] Comment on above: Performed By: #### 0 0121, 01417 #### [facility] [address] [facility] [place] [place] [address], [facility] PLAT CNT 265 10*3/uL Normal 150-400 The [facility] Comment on above: Performed By: #### 0 0121, 37719 #### [facility] [address] [address], [facility] RBC (Bld) [#/Vol] 4.01 10*6/uL Normal 3.80-5.00 The [facility] Comment on above: Performed By: #### 0 0121, 53324 #### [facility] [address] [facility] [place] [address], [place] WBC (Bld) [#/Vol] 17.67 10*3/uL High 4.00-10.60 [facility] Comment on above: Performed By: #### 0 0121, 00019 #### [facility] [address] [place] [address], [facility] POC GLUCOSE LABon 02-02-2019 Glucose [Mass/Vol] 215 mg/dL High 70-100 The [facility] Comment on above: Performed By: #### 0 0121, 99469 #### [facility] [address] BNP (B-TYPE NATRIURETIC PEPT DARCI)on 02-01-2019 Natriuretic peptide B (Bld) [Mass/Vol] 423 pg/mL High 0-100 The [facility] Comment on above: Order Comment: Yes: Add to Previous draw if able Result Comment: Give n the appropriate clinical setting a BNP result of >100 pg/mL indicates congestive heart failure. Performed By: #### 8 5123 #### [facility] [address] CBC W/DIFFon 02-01-2019 ABS BASOPHILS 0.0 10*3/uL Normal 0.0-0.2 The [facility] Comment on above: Order Comment: Yes: Add to Previous draw if able Performed By: #### 5 0103 #### [facility] [address] ABS IMM GRANS 0.1 10*3/uL Normal 0.0-0.2 [facility] Comment on above: Order Comment: Yes: Add to Previous draw if able Performed By: #### 5 0103 #### [facility] [address] ABS NEUTROPHILS 12.2 10*3/uL High 1.6-7.6 The [facility] Comment on above: Order Comment: Yes: Add to Previous draw if able Performed By: #### 5 0103 #### [facility] [address] Basophils/100 WBC (Bld) 0.2 % Normal 0.0-1.0 [facility] Comment on above: Order Comment: Yes: Add to Previous draw if able Performed By: #### 5 0103 #### [facility] [address] [place] [address], [facility] Eosinophils (Bld) [#/Vol] 0.0 10*3/uL Normal 0.0-0.5 [facility] Comment on above: Order Comment: Yes: Add to Previous draw if able Performed By: #### 5 0103 #### [facility] [address] [place] [id number], [facility] Eosinophils/100 WBC (Bld) 0.0 % Normal 0.0-6.0 [facility] Comment on above: Order Comment: Yes: Add to Previous draw if able Performed By: #### 5 3 #### [facility] [address] [address], [facility] Erythrocyte distribution width (RBC) [Ratio] 14.3 % Normal 11.5-15.0 [facility] Comment on above: Order Comment: Yes: Add to Previous draw if able Performed By: #### 5 0103 #### [facility] [address] [place] [address], [facility] Hematocrit (Bld) [Volume fraction] 39.9 % Normal 36.0-45.0 [facility] Comment on above: Order Comment: Yes: Add to Previous draw if able Performed By: #### 5 3 #### [facility] [address] [place] [id number], [facility] Hemoglobin (Bld) [Mass/Vol] 11.8 g/dL Low 12.0-15.0 [facility] Comment on above: Order Comment: Yes: Add to Previous draw if able Performed By: #### 5 0103 #### [facility] [address] [place] [id number], [facility] IMMATURE GRANS 0.4 % Normal 0.0-1.0 [facility] Comment on above: Order Comment: Yes: Add to Previous draw if able Performed By: #### 5 3 #### [facility] [address] [place] [address], [facility] Lymphocytes (Bld) [#/Vol] 0.3 10*3/uL Low 1.2-4.0 [facility] Comment on above: Order Comment: Yes: Add to Previous draw if able Performed By: #### 5 0103 #### [facility] [address] [place] [address], [facility] Lymphocytes/100 WBC (Bld) 2.6 % Low 20.0-45.0 [facility] Comment on above: Order Comment: Yes: Add to Previous draw if able Performed By: #### 5 0103 #### [facility] [address] [facility] [address] MCH (RBC) [Entitic mass] 28.6 pg Normal 27.0-33.0 [facility] Comment on above: Order Comment: Yes: Add to Previous draw if able Performed By: #### 3 #### [facility] [address] MCHC (RBC) [Mass/Vol] 29.6 g/dL Low 32.0-35.0 [facility] Comment on above: Order Comment: Yes: Add to Previous draw if able Performed By: #### 5 3 #### [facility] [address] MCV (RBC) [Entitic vol] 96.6 fL Normal 82.0-98.0 [facility] Comment on above: Order Comment: Yes: Add to Previous draw if able Performed By: #### 5 0103 #### [facility] [address] [address], [facility] Monocytes (Bld) [#/Vol] 0.1 10*3/uL Normal 0.1-1.0 [facility] Comment on above: Order Comment: Yes: Add to Previous draw if able Performed By: #### 3 #### [facility] [address] [place] [address], [facility] MONOS 0.9 % Low 5.0-12.0 [facility] Comment on above: Order Comment: Yes: Add to Previous draw if able Performed By: #### 5 0103 #### [facility] [address] [place] [id number], [facility] Neutrophils/100 WBC (Bld) 95.9 % High 40.0-72.0 [facility] Comment on above: Order Comment: Yes: Add to Previous draw if able Performed By: #### 5 0103 #### [facility] [address] [place] [address], [facility] Nucleated RBC/100 WBC (Bld) [Ratio] 0 % Normal 0-0 [facility] Comment on above: Order Comment: Yes: Add to Previous draw if able Performed By: #### 5 0103 #### [facility] [address] [place] [address], [facility] PLAT CNT 240 10*3/uL Normal 150-400 [facility] Comment on above: Order Comment: Yes: Add to Previous draw if able Performed By: #### 5 0103 #### [facility] [address] [place] [address], [facility] RBC (Bld) [#/Vol] 4.13 10*6/uL Normal 3.80-5.00 The [facility] Comment on above: Order Comment: Yes: Add to Previous draw if able Performed By: #### 5 0103 #### [facility] [address] [place] [id number], [facility] WBC (Bld) [#/Vol] 12.76 10*3/uL High 4.00-10.60 [facility] Comment on above: Order Comment: Yes: Add to Previous draw if able Performed By: #### 5 0103 #### [facility] [address] [place] [address], [facility] COMP METABOLIC PANELon 02-01 Albumin [Mass/Vol] 4.1 g/dL Normal 3.5-5.7 [facility] Comment on above: Order Comment: Yes: Add to Previous draw if able Performed By: #### 0 0121, [id number] #### [facility] [address] [place] [address], [place] ALKALINE PHOSPH 70 IU/L Normal 34-104 [facility] Comment on above: Order Comment: Yes: Add to Previous draw if able Performed By: #### 0 0121, [id number] #### [facility] [address] [place] [address], [place] ALT [Catalytic activity/Vol] 14 U/L Normal 7-52 [facility] Comment on above: Order Comment: Yes: Add to Previous draw if able Performed By: #### 0 0121, [id number] #### [facility] [address] [place] [address], [place] AST [Catalytic activity/Vol] 16 U/L Normal 13-39 [facility] Comment on above: Order Comment: Yes: Add to Previous draw if able Performed By: #### 0 0121, [id number] #### [facility] [address] [place] [address], [place] Bilirubin [Mass/Vol] 0.5 mg/dL Normal 0.3-1.0 [facility] Comment on above: Order Comment: Yes: Add to Previous draw if able Performed By: #### 0 0121, 02123 #### [facility] [address] [place] [address], [place] Calcium [Mass/Vol] 9.0 mg/dL Normal 8.6-10.3 [facility] Comment on above: Order Comment: Yes: Add to Previous draw if able Performed By: #### 0 0121, [id number] #### [facility] [address] [place] [address], [place] Chloride [Moles/Vol] 98 mmol/L Normal 98-107 [facility] Comment on above: Order Comment: Yes: Add to Previous draw if able Performed By: #### 0 0121, [id number] #### [facility] [address] [place] [address], [place] CO2 [Moles/Vol] 31 mmol/L Normal 21-31 [facility] Comment on above: Order Comment: Yes: Add to Previous draw if able Performed By: #### 0 0121, [id number] #### [facility] [address] [place] [address], [place] Creatinine [Mass/Vol] 0.67 mg/dL Normal 0.60-1.20 [facility] Comment on above: Order Comment: Yes: Add to Previous draw if able Performed By: #### 0 0121, [id number] #### [facility] [address] [place] [address], [place] GFR/1.73 sq M predicted among blacks MDRD (S/P/Bld) [Vol rate/Area] mL/min/{1.73_m2} Normal >60 [facility] Comment on above: Order Comment: Yes: Add to Previous draw if able Result Comment: Calc ulation may not be valid for patients over 70 years Performed By: #### 0 0121, 91428 #### [facility] [address] [place] [address], [place] GFR/1.73 sq M predicted among non-blacks MDRD (S/P/Bld) [Vol rate/Area] mL/min/{1.73_m2} Normal >60 [facility] Comment on above: Order Comment: Yes: Add to Previous draw if able Result Comment: Calc ulation may not be valid for patients over 70 years Performed By: #### 0 0121, 91781 #### [facility] [address] [place] [address], [place] Glucose [Mass/Vol] 245 mg/dL High 70-100 [facility] Comment on above: Order Comment: Yes: Add to Previous draw if able Performed By: #### 0 0121, 83651 #### [facility] [address] [place] [address], [place] Potassium [Moles/Vol] 4.2 mmol/L Normal 3.5-5.1 [facility] Comment on above: Order Comment: Yes: Add to Previous draw if able Performed By: #### 0 0121, [id number] #### [facility] [address] [place] [address], [place] Protein [Mass/Vol] 7.1 g/dL Normal 6.0-8.3 [facility] Comment on above: Order Comment: Yes: Add to Previous draw if able Performed By: #### 0 0121, 50441 #### [facility] [address] [place] [address], [place] Sodium [Moles/Vol] 136 mmol/L Normal 136-145 [facility] Comment on above: Order Comment: Yes: Add to Previous draw if able Performed By: #### 0 0121, 62352 #### [facility] [address] [place] [address], [place] Urea nitrogen [Mass/Vol] 13 mg/dL Normal 7-25 [facility] Comment on above: Order Comment: Yes: Add to Previous draw if able Performed By: #### 0 0121, [id number] #### [facility] [address] [place] [address], [place] POC GLUCOSE LABon 02-01-2019 Glucose [Mass/Vol] 225 mg/dL High 70-100 [facility] Comment on above: Performed By: #### 0 0121, 05366 #### [facility] [address] [place] [address], [place] Glucose [Mass/Vol] 230 mg/dL High 70-100 [facility] Comment on above: Performed By: #### 0 0121, 59721 #### [facility] [address] [place] [address], [facility] Glucose [Mass/Vol] 237 mg/dL High 70-100 [facility] Comment on above: Performed By: #### 8 5499 #### [facility] [address] [facility] [place] [address], [facility] Glucose [Mass/Vol] 247 mg/dL High 70-100 [facility] on above: Performed By: #### 8 5499 #### [facility] [address] [facility] [place] [address], [facility] PORTABLE CHEST 1 VIEWon PORTABLE CHEST 1 VIEW [facility] Department of Radiology [address] [place] [phone] ======== Patient Name: KAYLIE [place]ON : 1950 Sex: F Age: Race: White Pt. Location: [address] [place] [address] Patient Status: I Ordered Date: 01/31/2019 11:45:00 [...] findings. Electronically signed by:Rachael Cardenas. Transcribed by: [email or web address], User Resident: ROSA STRANGE Electronically Signed by: RACHAEL CARDENAS @ 02/01/2019 12:39 PM I personally read this/these film(s) with this resident Normal [facility] Comment on above: Order Comment: R/O I nfiltrates PROCALCITONINon 02-01-2019 PROCALCITONIN 0.07 ng/mL Normal 0.00-0.10 [facility] Comment on above: Order Comment: Yes: [...] PCT<0.5ng/mL Performed By: #### 3 1488 #### [facility] [address] TROPONIN-Ion 02-01-2019 Troponin I.cardiac [Mass/Vol] 0.08 ng/mL High 0.00-0.04 [facility] Comment on above: Order Comment: No: D o not add to previous draw Result Comment: REFE RENCE RANGES: 0.00 - 0.04 ng/ml NORMAL 0.05 - 0.50 ng/ml INDETERMINATE > 0.50 ng/ml CONSISTENT WITH AN M.I. Performed By: #### 3 5200 #### [facility] [address] Troponin I.cardiac [Mass/Vol] 0.08 ng/mL High 0.00-0.04 [facility] Comment on above: Order Comment: No: D o not add to previous draw Result Comment: REFE RENCE RANGES: 0.00 - 0.04 ng/ml NORMAL 0.05 - 0.50 ng/ml INDETERMINATE > 0.50 ng/ml CONSISTENT WITH AN M.I. Performed By: #### 0 0121, [id number] #### [facility] [address] Cardiovascular Lab Reporton 01-16-2019 Cardiovascular Lab Report [facility] Patient Name: [facility] Kaylie Caballero MR #: [id number] Department of Physician: Pepe Alexandre M.D. Division of Service Date: 01/16/2019 Cardiology Birthdate: 1950 Adult Cardiovascular Room #: [place] [address] Cardiovascular Laboratory Report FINAL IMPRESSION: 1. Nonobstructive [...] the right radial artery was obtained. A 6-Gabonese glide sheath was inserted without difficulty. Bilateral [...] angled Glidewire. INDICATIONS: Troponin elevation, type 2 [id number] myocardial infarction. Electronically Signed by: Shemar Hudson M.D. 01/29/2019 08:36 A Shemar Hudson M.D. Date Dict: 01/16/2019/01:01 P/Shemar Hudson M.D. Date Trans: 01/16/2019 02:39 P/mmo [id number] Normal [facility] SWEAT CHLORIDEon 12-03-2018 SWEAT CHLORIDE 36 mmol/L Abnormal [facility] Comment on above: Order Comment: Right [id number] Left arm [id number] Result Comment: REFE RENCE VALUES <=29 mMol/L CYSTIC FIBROSIS IS UNLIKELY 30-59 mMol/L INTERMEDIATE >=60 mMol/L INDICATIVE OF CYSTIC FIBROSIS NOTE: SWEAT CHLORIDE VALUES LESS THAN 30 mMol/L HAVE BEEN DOCUMENTED IN GENETICALLY PROVEN CF PATIENTS. CLINICAL CORRELATION IS NECESSARY. Performed By: #### S WCH1 #### [facility] [address] [place] [address] WT COLLECTED 0.177 grams Normal [facility] Comment on above: Order Comment: Right [id number] Left arm [id number] Performed By: #### S WCH1 #### [facility] [address] [place] [address] SWEAT CHLORIDE 42 mmol/L Abnormal [facility] Comment on above: Order Comment: Doroteo keith fax results to Doctor Charles Landeros MD. Phone: [phone] Result Comment: REFE RENCE VALUES <=29 mMol/L CYSTIC FIBROSIS IS UNLIKELY 30-59 mMol/L INTERMEDIATE >=60 mMol/L INDICATIVE OF CYSTIC FIBROSIS NOTE: SWEAT CHLORIDE VALUES LESS THAN 30 mMol/L HAVE BEEN DOCUMENTED IN GENETICALLY PROVEN CF PATIENTS. CLINICAL CORRELATION IS NECESSARY. Performed By: #### S WCH1 #### [facility] [address] [place] [address] WT COLLECTED 0.215 grams Normal [facility] Comment on above: Order Comment: Doroteo keith fax results to Doctor Charles Landeros MD. Phone: [phone] Performed By: #### S WCH1 #### [facility] [address] [place] [address] Vital Signs Date Time Vital Sign Value Performing Clinician Facility 05-06-2025 08:10-0400 Diastolic blood pressure 78 mm[Hg] Pema Reynolds MD Work Phone: [facility] 05-06-2025 08:10-0400 Heart rate 75 /min Pema Reynolds MD Work Phone: [facility] 05-06-2025 08:10-0400 Systolic blood pressure 118 mm[Hg] Pema Reynolds MD Work Phone: [facility] 05-06-2025 08:05-0400 Body height 167.6 cm Pema Reynolds MD Work Phone: [facility] 05-06-2025 08:05-0400 Body mass index (BMI) [Ratio] 41.13 kg/m2 Pema Reynolds MD Work Phone: [facility] 05-06-2025 08:05-0400 Body weight 115.58 kg Pema Reynolds MD Work Phone: [facility] 04-07-2025 13:47-0400 Body height 165.1 cm Jim Lombardi MD Work Phone: [facility] 04-07-2025 13:47-0400 Body mass index (BMI) [Ratio] 42.43 kg/m2 Jim Lombardi MD Work Phone: [facility] 04-07-2025 13:47-0400 Body weight 115.67 kg Jim Lombardi MD Work Phone: [facility] 04-07-2025 13:47-0400 Diastolic blood pressure 66 mm[Hg] Jim Lombardi MD Work Phone: [facility] 04-07-2025 13:47-0400 Heart rate 72 /min Jim Lombardi MD Work Phone: [facility] 04-07-2025 13:47-0400 Systolic blood pressure 103 mm[Hg] Jim Lombardi MD Work Phone: [facility] 07-30-2024 13:54-0400 Body height 167.7 cm Reginald Aragon MD Work Phone: [facility] 07-30-2024 13:54-0400 Body mass index (BMI) [Ratio] 40.64 kg/m2 Reginald Aragon MD Work Phone: [facility] 07-30-2024 13:54-0400 Body temperature 97.3 [degF] Reginald Aragon MD Work Phone: [facility] 07-30-2024 13:54-0400 Body weight 114.3 kg Reginald Aragon MD Work Phone: [facility] 07-30-2024 13:54-0400 Diastolic blood pressure 63 mm[Hg] Reginald Aragon MD Work Phone: [facility] 07-30-2024 13:54-0400 Heart rate 81 /min Reginald Aragon MD Work Phone: [facility] 07-30-2024 13:54-0400 Respiratory rate 18 /min Reginald Aragon MD Work Phone: [facility] 07-30-2024 13:54-0400 SaO2% (BldA) [Mass fraction] 94 % Reginald Aragon MD Work Phone: [facility] 07-30-2024 13:54-0400 Systolic blood pressure 96 mm[Hg] Reginald Aragon MD Work Phone: [facility] 03-14-2023 12:45-0400 Body height 167.7 cm Reginald Aragon MD Work Phone: [facility] 03-14-2023 12:45-0400 Body temperature 97.7 [degF] Reginald Aragon MD Work Phone: [facility] 06-15-2023 12:45-0400 Body weight 119.93 kg Reginald Aragon MD Work Phone: [facility] 03-14-2023 12:45-0400 Diastolic blood pressure 63 mm[Hg] Reginald Aragon MD Work Phone: [facility] 03-14-2023 12:45-0400 Heart rate 68 /min Reginald Aragon MD Work Phone: [facility] 03-14-2023 12:45-0400 Respiratory rate 16 /min Reginald Aragon MD Work Phone: [facility] 03-14-2023 12:45-0400 SaO2% (BldA) [Mass fraction] 97 % Reginald Aragon MD Work Phone: [facility] 03-14-2023 12:45-0400 Systolic blood pressure 114 mm[Hg] Reginald Aragon MD Work Phone: [facility] 09-13-2022 12:57-0500 Body height 167.7 cm Samantha Benitez 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: [facility] 09-13-2022 12:57-0500 Body temperature 97.59 [degF] Samantha Benitez 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: [facility] 09-13-2022 12:57-0500 Body weight 120.47 kg Samantha Benitez 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: [facility] 09-13-2022 12:57-0500 Diastolic blood pressure 68 mm[Hg] Samantha Benitez 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: [facility] 09-13-2022 12:57-0500 Heart rate 93 /min Samantha Benitez 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: [facility] 09-13-2022 12:57-0500 Respiratory rate 16 /min Samantha Benitez 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: [facility] 09-13-2022 12:57-0500 SaO2% (BldA) [Mass fraction] 100 % Samantha Benitez 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: [facility] 09-13-2022 12:57-0500 Systolic blood pressure 120 mm[Hg] Samantha Benitez 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: [facility] 03-14-2022 14:12-0400 Body height 167.7 cm Reginald Aragon MD Work Phone: [facility] 03-14-2022 14:12-0400 Body temperature 97.81 [degF] Reginald Aragon MD Work Phone: [facility] 03-14-2022 14:12-0400 Body weight 120.57 kg Reginald Aragon MD Work Phone: [facility] 03-14-2022 14:12-0400 Diastolic blood pressure 76 mm[Hg] Reginald Aragon MD Work Phone: [facility] 03-14-2022 14:12-0400 Heart rate 98 /min Reginald Aragon MD Work Phone: [facility] 03-14-2022 14:12-0400 Respiratory rate 16 /min Reginald Aragon MD Work Phone: [facility] 03-14-2022 14:12-0400 SaO2% (BldA) [Mass fraction] 95 % Reginald Aragon MD Work Phone: [facility] 03-14-2022 14:12-0400 Systolic blood pressure 114 mm[Hg] Reginald Aragon MD Work Phone: [facility] Encounters Encounter Date Encounter Type Care Provider Facility Start: 03-07-2026 ambulatory [facility] [facility] [place] [facility] Start: 10-06-2025 ambulatory [facility] [facility] [place] [facility] Start: 06-23-2025 End: 06-23-2025 Bamboo flowsheet Deann Hoffman CCC-A Work Phone: [facility] Start: 06-23-2025 End: 06-23-2025 Bamboo flowsheet Deann Hoffman CCC-A Work Phone: [facility] Start: 06-09-2025 ambulatory Inderjit Ly acility:[facility] Start: 06-04-2025 ambulatory [place] ANDUJAR [facility] Start: 05-11-2025 End: 05-11-2025 ambulatory [facility] Start: 05-06-2025 End: 05-06-2025 Office outpatient new 45 minutes Pema Reynolds MD Work Phone: [facility] Comment on above: Stage 3b chronic kid marshall disease (CKD) ([facility]) (Primary Dx); CKD (chronic kidney disease), stage IV ([facility]-H[facility]) Start: 04-29-2025 End: 04-29-2025 Telephone encounter Scanning Provider External [facility] Start: 04-22-2025 End: 04-22-2025 ambulatory [facility] Start: 04-07-2025 End: 04-07-2025 Bamboo flowsgenaro Lombardi [...] Not Available Start: 04-06-2025 End: 04-06-2025 ambulatory [facility] Oh Andujar Facility:[facility] Start: 03-30-2025 End: 03-30-2025 ambulatory [facility] Start: 03-24-2025 End: 03-24-2025 Clinical Support Deann Hoffman [facility] Work Phone: [facility] Comment on above: Sensorineural hearin g loss (SNHL) of both ears (Primary Dx); Tinnitus, bilateral; Impaired auditory discrimination, bilateral Start: 03-24-2025 End: 03-24-2025 Bamboo flowsheet Deann Hoffman [facility] Work Phone: [facility] Start: 03-24-2025 End: 03-24-2025 [facility] Work Phone: [facility] Start: 03-04-2025 End: 03-04-2025 ambulatory [facility] [place] Con Facility[facility] Start: 02-24-2025 End: 02-24-2025 ambulatory [facility] Start: 10-06-2024 End: 10-06-2024 ambulatory [facility] [facility] Start: 09-09-2024 End: 09-09-2024 ambulatory [facility] Start: 08-04-2024 End: 08-04-2024 ambulatory [employer] [place] [facility] Con Facility:[facility] Start: 07-30-2024 End: 07-30-2024 Patient encounter procedure Reginald Aragon MD Work Phone: Hematology/Oncology Start: 07-30-2024 End: 07-30-2024 ambulatory Reginald Aragon MD Work Phone: Hematology/Oncology Comment on above: Malignant neoplasm o f overlapping sites of right breast in female, estrogen receptor negative (HCC) (Primary Dx) Start: 06-25-2024 End: 06-25-2024 ambulatory [facility] Start: 06-17-2024 End: 06-17-2024 ambulatory [facility] Start: 05-20-2024 End: 05-20-2024 ambulatory [facility] Start: 05-06-2024 End: 05-06-2024 ambulatory [place] ANDUJAR [facility] Start: 05-05-2024 End: 05-05-2024 ambulatory BRIAN GIL [facility] Start: 09-12-2023 Telephone encounter Carin Salgado Hematology/Oncology Comment on above: Orders Start: 09-12-2023 End: 09-12-2023 ambulatory REGINALD ARAGON Facility:[facility] Start: 06-07-2023 Telephone encounter Orly Zhao [...] encounter procedure Reginald Aragon MD Work Phone: [facility] Start: 10-11-2022 Refill Reginald Aragon MD Work Phone: Hematology/Oncology Comment on above: Refill Request Start: 09-13-2022 End: 09-13-2022 ambulatory Samantha Benitez 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: Hematology/Oncology Comment on above: Malignant neoplasm o f overlapping sites of right breast in female, estrogen receptor negative (HCC) (Primary Dx); Iron deficiency anemia secondary to inadequate dietary iron intake Start: 09-13-2022 End: 09-13-2022 Patient encounter procedure Samantha Benitez 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: [facility] Start: 08-14-2022 End: 08-15-[address] CHARLES LANDEROS Facility:[facility] Start: 07-23-2022 End: 07-23-2022 ambulatory MITCHEL WARREN Facility:[facility] Start: 07-16-2022 Refill Samantha Benitez 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: Hematology/Oncology Comment on above: Refill [...] JAIM[facility] Start: 10-19-[address]LES LANDEROS [facility] y:H1 Start: 08-17-2021 End: 08-17-2021 Subsequent hospital visit by physician Arrival Time Radiology Work Phone: Radiology Pet CT Comment on above: Lung nodules [R91.8] Start: 02-01-2019 End: 02-02-2019 Evaluation and management of inpatient ARACELI SANDHU Facility:[facility] Start: 01-16-2019 End: 01-17-2019 Patient encounter procedure EHAB Ada LILLIANLUIS ARMANDOSHAILAJoe Facility:[facility] Start: 12-03-2018 Patient encounter procedure Facility:[facility] Procedures Date Procedure Procedure Detail Performing [...] Start: 07-30-2027 Diabetes Screening Diabetes Screenin g [facility] Start: 04-13-2027 Lipid panel Lipid Screening [facility] Start: 04-13-2027 LIPID SCREEN LIPID SCREEN [facility] Start: 12-15-2026 LIPID SCREEN LIPID SCREEN [facility] Start: 09-12-2026 Diabetes Screening Diabetes Screenin g [facility] Start: 05-06-2026 Tobacco Screening Tobacco Screening [facility] Start: 03-14-2026 DIABETES SCREEN DIABETES SCREEN [facility] Start: 09-13-2025 DIABETES SCREEN DIABETES SCREEN [facility] Start: 08-05-2025 End: 08-05-2025 Patient encounter procedure 08/05/2025 2:40 PM EST Office Visit [facility] [address] [place] [id number] Emiliana Navarro, GEOSCIENCES ASSOCIATE PROFESSOR-IT SERVICE DELIVERY MANAGER [address] [facility], [address] [place] [address] [facility] Start: 06-23-2025 End: 06-23-2025 Clinical Support 06/23/2025 1:00 PM EDT Clinical Support [facility] [address] [facility] [address] [place] [id number] Deann Hoffman, [facility] [address] [place] [address] Arrived [facility] Comment on above: Arrived Start: 05-31-2025 Influenza vaccination N [facility] Start: 05-13-2025 End: 05-06-2026 ODILIA Screen w/ Reflex ODILIA Screen w/ Reflex Lab Routine Stage 3b chronic kidney disease (CKD) ([facility] Expected: 05/13/2025 (Approximate), Expires: 05/06/2026 [facility] Work Phone: Comment on above: Expected: 05/13/2025 (Approximate), Expires: 05/06/2026 Start: 05-13-2025 End: 05-06-2026 Basic metabolic 2000 panel - Serum or Plasma Basic Metabolic Panel Lab Routine Stage 3b chronic kidney disease (CKD) ([facility]) Expected: 05/13/2025 (Approximate), Expires: 05/06/2026 [facility] Comment on above: Expected: 05/13/2025 (Approximate), Expires: 05/06/2026 Start: 05-13-2025 End: 05-06-2026 Complement profile (C3 AND C4) Complement profile (C3 AND C4) Lab Routine Stage 3b chronic kidney disease (CKD) ([facility]) Expected: 05/13/2025 (Approximate), Expires: 05/06/2026 [email or web address] Comment on above: Expected: 05/13/2025 (Approximate), Expires: 05/06/2026 Start: 05-13-2025 End: 05-06-2026 Free light chains Free light chains Lab Routine Stage 3b chronic kidney disease (CKD) ([facility]) Expected: 05/13/2025 (Approximate), Expires: 05/06/2026 [facility] Comment on above: Expected: 05/13/2025 (Approximate), Expires: 05/06/2026 Start: 05-13-2025 End: 05-06-2026 Glomerular basement membrane IgG AB Glomerular basement membrane IgG AB Lab Routine Stage 3b chronic kidney disease (CKD) ([facility]) Expected: 05/13/2025 (Approximate), Expires: 05/06/2026 [facility] Comment on above: Expected: 05/13/2025 (Approximate), Expires: 05/06/2026 Start: 05-13-2025 End: 05-06-2026 Myeloperoxidase AB Myeloperoxidase AB Lab Routine Stage 3b chronic kidney disease (CKD) ([facility]) Expected: 05/13/2025 (Approximate), Expires: 05/06/2026 [email or web address] Comment on above: Expected: 05/13/2025 (Approximate), Expires: 05/06/2026 Start: 05-13-2025 End: 05-06-2026 Protein creat ratio Protein creat ratio Lab Routine Stage 3b chronic kidney disease (CKD) ([facility]) Expected: 05/13/2025 (Approximate), Expires: 05/06/2026 [email or web address] Comment on above: Expected: 05/13/2025 (Approximate), Expires: 05/06/2026 Start: 05-13-2025 End: 05-06-2026 Protein electrophoresis, serum Protein electrophoresis, serum Lab Routine Stage 3b chronic kidney disease (CKD) ([facility]) Expected: 05/13/2025 (Approximate), Expires: 05/06/[address] Comment on above: Expected: 05/13/2025 (Approximate), Expires: 05/06/2026 Start: 05-13-2025 End: 05-06-2026 Rheumatoid factor Rheumatoid factor Lab Routine Stage 3b chronic kidney disease (CKD) ([facility]) Expected: 05/13/2025 (Approximate), Expires: 05/06/[address] [facility] Comment on above: Expected: 05/13/2025 (Approximate), Expires: 05/06/2026 Start: 04-07-2025 End: 04-07-2025 Patient encounter procedure 04/07/2025 2:00 PM EDT Office Visit [facility] [address] [place] [address] Jim Lombardi MD [address] [place] [address] Arrived [facility] Comment on above: Arrived Start: 03-31-2025 End: 03-31-2025 Patient encounter procedure 03/31/2025 1:10 PM EDT Office Visit [facility] [address] [place] [address] Jim Lombardi MD [address] [place] [address] [facility] Start: 03-24-2025 End: 03-24-2025 Clinical Support 03/24/2025 2:30 PM EDT Clinical Support [facility] [address] [place] [address] Deann Hoffman, [facility] [address] [place] [address] Arrived [facility] Comment on above: Arrived Start: 03-14-2025 DIABETES SCREEN DIABETES SCREEN [facility] Start: 12-22-2024 COVID-19 Vaccine (7 - Mixed Product risk ) COVID-19 Vaccine (7 - Mixed Product risk ) [facility] Start: 08-17-2024 DIABETES SCREEN DIABETES SCREEN [facility] Start: 07-30-2024 End: 07-30-2024 Follow-up encounter 07/30/2024 2:15 PM EDT Visit (SP) Office Hematology/Oncology [address] [place] [address] Reginald Aragon MD [address] [place] [place] [address] 10 month follow up lab / left [...] Ag 27-29 [Units/volume] in Serum or Plasma [facility] Work Phone: Comment on above: Expected: 07/30/2024 , Expires: 10/29/2024 Start: 07-30-2024 End: 07-30-2024 Patient encounter procedure 07/30/2024 2:00 PM EDT Office Visit [facility] [address] [place] [address] [place] [address] 10 month follow up lab / left detailed message about moving this appt from 07-16. Asked her to call and confirm new day and time. Mailed new reminder to her home. [facility] Comment on above: 10 month follow up l ab / left detailed message about moving this appt from 07-16. Asked her to call and confirm new day and time. Mailed new reminder to her home. Start: 05-31-2024 Covid-19 Vaccine ( season) Covid-19 Vaccine () [facility] Start: 05-31-2024 Influenza vaccination Influenza Vacc ine (#1) [facility] Start: 09-30-2023 Advance Directive Discussion Advance Directive Discussion [facility] Start: 05-31-2023 Influenza vaccination INFLUENZA (#1) [facility] Start: 03-14-2023 End: 05-14-2023 Cancer Ag 27-29 [Units/volume] in Serum or Plasma CA 27.29 BLOOD Lab Routine Malignant neoplasm of overlapping sites of right breast in female, estrogen receptor negative (HCC) Iron deficiency anemia secondary to inadequate dietary iron intake Expected: 03/14/2023, Expires: 05/14/2023 [facility] Work Phone: Comment on above: Expected: 03/14/2023 , Expires: 05/14/2023 Start: 03-14-2023 End: 05-14-2023 CBC W Auto Differential panel - Blood CBC + DIFF Lab Routine Malignant neoplasm of overlapping sites of right breast in female, estrogen receptor negative (HCC) Iron deficiency anemia secondary to inadequate dietary iron intake Expected: 03/14/2023, Expires: 05/14/2023 [facility] Work Phone: Comment on above: Expected: 03/14/2023 , Expires: 05/14/2023 Start: 03-14-2023 End: 05-14-2023 Comprehensive metabolic 2000 panel - Serum or Plasma COMP METABOLIC PANEL Lab Routine Malignant neoplasm of overlapping sites of right breast in female, estrogen receptor negative (HCC) Iron deficiency anemia secondary to inadequate dietary iron intake Expected: 03/14/2023, Expires: 05/14/2023 [facility] Work Phone: Comment on above: Expected: 03/14/2023 , Expires: 05/14/2023 Start: 01-04-2023 RSV Vaccine (1 - 1-d ose 75+ series) RSV Vaccine (1 - 1-dose 75+ series) [facility] Start: 09-30-2022 ADVANCE DIRECTIVE DISCUSSION ADVANCE DIRECTIVE DISCUSSION [facility] Start: 09-30-2022 DEPRESSION ASSESSMENT DEPRESSION ASS ESSMENT [facility] Start: 09-13-2022 End: 11-13-2022 Cancer Ag 27-29 [Units/volume] in Serum or Plasma [facility] Work Phone: Comment on above: Expected: 09/13/2022 , Expires: 11/13/2022 Start: 07-03-2022 COVID-19 VACCINE (5 - Booster for Moderna series) COVID-19 VACCINE (5 - Booster for Moderna series) [facility] Start: 07-03-2022 COVID-19 VACCINE (5 - Moderna series) COVID-19 VACCINE (5 - Moderna series) [facility] Start: 05-31-2022 Influenza vaccination C [facility] Start: 09-30-2021 ADVANCE DIRECTIVE DISCUSSION ADVANCE DIRECTIVE DISCUSSION [facility] Start: 09-30-2021 DEPRESSION ASSESSMENT DEPRESSION ASS ESSMENT [facility] Start: 05-27-2021 Adult depression screening assessment DEPRESSION SCREENING [facility] Start: 12-04-2015 Administration of varicella zoster vaccine Zoster (Shingles) Vaccine (1 of 2) [facility] Start: 12-04-2015 SHINGRIX VACCINE (1 of 2) SHINGRIX VACCINE (1 of 2) [facility] Start: 12-04-2015 SHINGRIX VACCINE (2 of 3) SHINGRIX VACCINE (2 of 3) [facility] Start: 01-04-2013 BONE DENSITY BONE DENSITY [facility] Start: 01-04-2013 Fall Risk Screening Fall Risk Screen ing [facility] Start: 01-04-2013 Screening for osteoporosis Bone Density Screening [facility] Start: 2008 RSV Vaccine (1 - 1-d ose 60+ series) RSV Vaccine (1 - 1-dose 60+ series) [facility] Start: 01-04-1993 COLOGUARD (FIT-DNA) COLOGUARD (FIT-D NA) [facility] Start: 01-04-1993 Colonoscopy COLONOSCOPY [facility] Start: 01-04-1993 COLORECTAL CANCER SCREENING COLORECTAL CANCER SCREENING [facility] Start: 01-04-[address] [facility] Start: 01-04-1993 FECAL OCCULT BLOOD FECAL OCCULT BLOO D [facility] Start: 01-04-1993 Screening for malign ant neoplasm of colon [facility] Start: 01-04-1993 SIGMOIDOSCOPY SIGMOIDOSCOPY [facility] Start: 1988 Mammography MAMMOGRAM [facility] Start: 01-04-1967 DTaP,Tdap and Td Vaccines (1 - Tdap) DTaP,Tdap and Td Vaccines (1 - Tdap) [facility] Start: 01-04-1967 Urine microalbumin profile [facility] Start: 01-04-1966 Anxiety Screening Anxiety Screening [facility] Start: 01-04-1966 Depression Screening Depression Scre ening [facility] Start: 01-04-1966 HEPATITIS C SCREENING HEPATITIS C SC [facility] Start: 01-04-1966 Hepatitis C screening Hepatitis C Sc [facility] Start: 1960 Depression Screening Depression Scre ening [facility] Start: 1960 Tobacco Screening Tobacco Screening [facility] Start: 01-04-1953 COVID-19 VACCINE (#1) COVID-19 VACCI NE (#1) [facility] Start: 1948 COVID-19 VACCINE (#1) COVID-19 VACCI NE (#1) [facility] End: 05-06-2026 Cytoplasmic Neutrophilic Ab (ANCA), S Cytoplasmic Neutrophilic Ab (ANCA), S Lab Routine Stage 3b chronic kidney disease (CKD) ([facility]) 1 Occurrences starting 05/06/2025 until 05/06/2026 [facility] Comment on above: 1 Occurrences starti ng 05/06/2025 until 05/06/2026 End: 04-13-2023 Diagnostic mammography computer-aided detcj uni [facility]BO DI[facility]NOST[facility] LT Radiology Routine Malignant neoplasm of overlapping sites of right breast in female, estrogen receptor negative (HCC) 1 Occurrences starting 03/14/2022 until 04/13/2023 [facility] Work Phone: Comment on above: 1 Occurrences starti ng 03/14/2022 until 04/13/2023 End: 07-06-2024 RAMBO DIAGNOSTIC LEFT RAMBO DIAGNOSTIC LEFT Radiology Routine Malignant neoplasm of overlapping sites of right breast in female, estrogen receptor negative (HCC) 1 Occurrences starting 06/07/2023 until 07/06/2024 [facility] Work Phone: Comment on above: 1 Occurrences starti ng 06/07/2023 until 07/06/2024 End: 05-06-2026 Serum Immunofixation Serum Immunofixation Lab Routine Stage 3b chronic kidney disease (CKD) ([facility]) 1 Occurrences starting 05/06/2025 until 05/06/2026 [facility] Comment on above: 1 Occurrences starti ng 05/06/2025 until 05/06/2026 End: 05-06-2026 Urinalysis Urinalysis Lab Routine Stage 3b chronic kidney disease (CKD) ([facility]) 1 Occurrences starting 05/06/2025 until 05/06/2026 [facility] Comment on above: 1 Occurrences starti ng 05/06/2025 until 05/06/2026 [facility] Immunizations Immunization Date Immunization Notes Care Provider Fa cili 06-24-2024 COVID-19 vaccine, ag e 12+ yr (MODERNA) Reginald Aragon MD Work Phone: [facility] 06-24-2024 influenza, high dose seasonal, preservative-free Reginald Aragon MD Work Phone: [facility] 06-24-2024 pneumococcal conjuga te (PCV20) vaccine, 20 valent (PREVNAR 20) Reginald Aragon MD Work Phone: [facility] 06-24-2024 respiratory syncytia l virus (RSV) vaccine, adjuvanted (AREXVY) Reginald Aragon MD Work Phone: [facility] 06-24-2024 influenza virus vacc ine, unspecified formulation Jim Lombardi MD Work Phone: [facility] 07-25-2023 COVID-19 vaccine, ag e 12+ yr (MODERNA) Reginald Aragon MD Work Phone: [facility] 07-25-2023 influenza (HD-IIV4) vaccine, age 65+ yr, high dose, quadrivalent, PF (FLUZONE HIGH-DOSE) Reginald Aragon MD Work Phone: [facility] 07-25-2023 influenza virus vacc ine, unspecified formulation [facility] Work Phone: [facility] 07-11-2022 influenza (HD-IIV4) vaccine, age 65+ yr, high dose, quadrivalent, PF (FLUZONE HIGH-DOSE) Reginald Aragon MD Work Phone: [facility] 05-08-2022 SARS-COV-2 (COVID-19 ) Vaccine, Unspecified Scanning [facility] 08-07-2021 influenza (HD-IIV4) vaccine, age 65+ yr, high dose, quadrivalent, PF (FLUZONE HIGH-DOSE) Reginald Aragon MD Work Phone: [facility] 08-07-2021 SARS-COV-2 (COVID-19 ) Vaccine, Unspecified Scanning External [facility] 11-24-2020 COVID-19 original vaccine, full dose, monovalent (MODERNA) Reginald Aragon MD Work Phone: [facility] 10-27-2020 COVID-19 original vaccine, full dose, monovalent (MODERNA) Reginald Aragon MD Work Phone: [facility] 07-07-2020 influenza (aIIV4) vaccine, age 65+ yr, quadrivalent, PF (FLUAD QUAD) Reginald Aragon MD Work Phone: [facility] 07-21-2019 influenza, high dose seasonal, preservative-free Reginald Aragon MD Work Phone: [facility] 07-21-2019 pneumococcal polysaccharide vaccine, 23 valent Reginald Aragon MD Work Phone: [facility] 06-26-2018 influenza, high dose seasonal, preservative-free Reginald Aragon MD Work Phone: [facility] 06-26-2018 pneumococcal conjuga te vaccine, 13 valent Reginald Aragon MD Work Phone: [facility] 07-17-2017 influenza, high dose seasonal, preservative-free Reginald Aragon MD Work Phone: [facility] 07-01-2017 influenza, injectabl e, quadrivalent, preservative free Reginald Aragon MD Work Phone: [facility] 10-09-2015 zoster vaccine, live Reginald roche MD Work Phone: [facility] 10-09-2015 zoster vaccine, unspecified formulation Scanning [facility] 07-11-2015 influenza, seasonal, injectable, preservative free Reginald Aragon MD Work Phone: [facility] 07-11-2015 pneumococcal conjuga te vaccine, 13 valent Reginald Aragon MD Work Phone: [facility] Payers Date Payer Category Payer Self-pay 2018 Medicaid MEDICAID [facility] MEDICAID [id number] 2018-Present [phone] [address] [place] [address] Medicaid [id number] 2017 Medicaid [id number] 1988 Medicare MEDICARE MEDICAR E A AND B [id number] 1988-Present [phone] [place] [address] Medicare [id number] 1988 Medicare [id number] 1959 Medicaid [id number] 1959 Medicare [id number] 1959 Self-pay [id number] 1948 Unknown [id number] [id number] 1948 Unknown [id number] 2.16.840.1.095414.3.579.2.647 1948 Unknown [id number] 2.16.840.1.243115.3.579.2.647 1948 Unknown [id number] 2.16.840.1.099529.3.579.2.593 1948 Unknown [id number] 2.16.840.1.183040.3.579.2.593 1948 Unknown [id number] 2.16.840.1.249022.3.579.2.593 1948 Unknown [id number] 2.16.840.1.247583.3.579.2.593 1948 Unknown [id number] 2.16.840.1.556056.3.579.2.727 1948 Unknown [id number] 2.16.840.1.971659.3.579.2.727 1948 Unknown [id number] 2.16.840.1.885384.3.579.2.727 1948 Unknown [id number] 2.840.1.672881.3.579.2.727 1948 Unknown [id number] 2.840.1.257429.3.579.2.727 1948 Unknown [id number] 2.840.1.834013.3.579.2.727 1948 Unknown [id number] 2.840.1.006397.3.579.2.1259 1948 Unknown [id number] 2.840.1.590078.3.579.2.1259 1948 Unknown [id number] 2.840.1.382513.3.579.2.128 1948 Unknown [id number] 2.840.1.115637.3.579.2.1286 1948 Unknown [id number] 2.16840.1.466486.3.579.2.128 1948 Unknown [id number] 2.16840.1.791347.3.579.2.1286 1948 Unknown [id number] 2.16840.1.170704.3.579.2.1286 Unknown [id number] [id number] Social History Date Type Detail Facility Start: 03-18-2019 End: 02-06-2024 Tobacco smoking status NHIS Never smoked tobacco [facility] Start: 03-18-2019 End: 02-06-2024 Tobacco use and exposure Smokeless tobacco non-user [facility] Start: 03-14-2022 End: 04-07-2025 Alcohol intake Lifetime non-drinker (finding) [facility] Start: 01-21-2020 History SDOH Alcohol Frequency 1 [facility] Start: 1950 Sex Assigned At Not on file C [facility] Start: 07-18-2021 End: 03-14-2022 Exposure to SARS-CoV-2 (event) Not sure [facility] Start: 01-21-2020 End: 04-07-2025 History of Social function [facility] Start: 01-21-2020 End: 04-07-2025 Alcohol Use Disorder Identification Test - Consumption [AUDIT-C] [facility] How often to you hav e a drink containing alcohol? Never [facility] Average Number of Drinks Not on file [facility] Start: 05-05-2015 Sex Female (finding) [facility] NEGATED: Highlighted rowStart: NINF History of tobacco use Passive smoker [facility] Medical Equipment Procedure Code Equipment Code Equipment Origin al Text Equipment Identifier Dates Lens Iol Ultrase rt 23.0d - [id number] - [id number] Start: 06-28-2022 Lens Iol Ultrase rt 23.5d - [id number] - [id number] Start: 11-01-2022 Clinical Notes 08-17-2021 to [...] Use: Not At Risk (01/21/2020) Received from [facility] AUDIT-C Frequency of Alcohol Consumption: Never Average Number of Drinks: Not on file Frequency of Binge Drinking: Not on file Financial Resource Strain: Not on file Food Insecurity: Not on file Transportation Needs: Not on file Physical Activity: Not on file Stress: Not on file Social Connections: Not on file Intimate Partner Violence: Unknown (11/21/2023) [place] Safety & Environment Fear of Current or Ex-Partner: Not on file Emotionally Abused: Not on file Physically Abused: Not on file Sexually Abused: Not on file Physically or Sexually Abused: Not on file Depression: Not at risk (07/30/2024) Received from [facility] PHQ-2 PHQ-2 score: 0 Housing Stability: Not on file Utilities: Not on file Health Literacy: Not on file Allergies: Allergies Allergen Reactions Peanut Anaphylaxis Bacitracin Bromelains Clarithromycin Other and Unknown Conjugated Estrogens Unknown Estrogens, Conjugated Flavoring Agent Unknown Other Reaction(s): Unknown Neomycin Sulfate Paclitaxel Other Numbness,tingling and elevated blood pressure Pineapple Polymyxin B Shrimp All seafood Sulfa (Sulfonamide Antibiotics) Other and Unknown Bcatugec-Ygpropqgso-Mhgsqcazv Rash Penicillins Rash Weight: 118kg Visit Vitals [...] 3 loratadine (Claritin) (more content not included)... [facility] 05-06-2025 History of Present illness Narrative Images [...] fraction 55-60% cardiac echo 03/17/2025. This showed nkytiamd-rl-tfaqmd biatrial dilatation moderate tricuspid regurgitation and moderately elevated right-sided filling pressures Atherosclerotic coronary artery disease status post cardiac catheterization December 2018 which showed nonobstructive coronary. Artery disease Surgical, Family & Social History Surgical History: Past Surgical History: Procedure Laterality Date BREAST BIOPSY CARDIAC CATHETERIZATION EXTRACTION CATARACT INTRAOCULAR LENS Right 11/01/2022 Performed by Rosa Elena Lewis MD at [facility] EXTRACTION CATARACT INTRAOCULAR LENS Left 06/28/2022 Performed by Rosa Elena Lewis MD at [facility] MASTECTOMY Right Social History: Social History [...] Interpersonal Safety: Unknown (11/21/2023) Re[facility] from [facility] Safety & Environment Fear of Current or [...] seafood Sulfa (Sulfonamide Antibiotics) Other (See Comments) Ydqfibhg-Ackwmjcupu-Rsfwbfqxz Rash Penicillins Rash Current Meds: Current Outpatient [...] Anemia Studies: Lab Results Component Value Date [id number] 05/10/2023 FOLATE >25.0 05/10/2023 Mineral and [...] of your patients! Please contact me at [phone] (Office) or [phone] (Answering service) with any questions. PEMA REYNOLDS MD [facility] This note was created with the assistance of a speech-recognition program. Although the intention is to generate a document that actually reflects the content of the visit, no guarantees can be provided that every mistake has been identified and corrected by editing. PEMA REYNOLDS MD,PhD FACP [facility] ANY QUESTIONS FEEL FREE TO CALL: 1. OFFICE [phone] 2. ANSWERING SERVICE: [phone] documented in this encounter [facility] 04-29-2025 Miscellaneous Notes LM to schedule new pt appt. documented in this encounter [facility] 04-29-2025 Telephone encounter Note LM to schedule new pt appt. [facility] 04-22-2025 Note Cardiovascular Medic ine [facility] SUBJECTIVE Kaylie Salomon is a 75 [...] well as Martir SEPULVEDA. 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 [facility] 04-22-2025 Note Patient is here toda y [...] swelling. Respiratory: Positive for shortness of breath. [facility] 04-07-2025 History of Present illness Narrative Subjective [...] Noted Altered mental status, unspecified 02/10/2024 Psychosis ([facility]) 02/10/2024 Hallucination 02/10/2024 Acute hypoxemic respiratory failure ([facility]) 01/09/2019 Acute severe refractory exacerbation of asthma ([facility]) 01/09/2019 Allergic conjunctivitis of both eyes 03/30/2025 Allergic rhinitis due to allergen 03/30/2025 Asthma ([facility]) 03/22/2023 Paroxysmal A-fib ([facility]) 12/08/2021 BMI 38.0-38.9,adult 03/30/2025 Carcinoma of lower-outer quadrant of right breast in female, estrogen receptor negative ([facility]) 05/07/2019 Chronic heart failure with preserved ejection fraction ([facility]) 06/18/2023 Chronic respiratory failure ([facility]) 09/17/2023 Electrolyte and fluid disorder 09/17/2023 Gastroesophageal reflux disease 01/09/[address] elevation myocardial infarction (STEMI) 01/09/2019 Hypertensive disorder 01/09/2019 Iron deficiency anemia 06/17/2019 Iron deficiency anemia 03/30/2025 halfway 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 steroid 09/17/2023 Malignant neoplasm of overlapping sites of breast in female, estrogen receptor negative ([facility]) 04/20/2019 Mental disability 03/30/2025 Mild intermittent asthma without complication ([facility]) 03/30/2025 Morbid obesity ([facility]) 09/17/2023 Peripheral eosinophilia 03/30/2025 Severe persistent asthma ([facility]) 09/17/2023 Sinusitis 03/22/2023 Type 1 diabetes mellitus ([facility]) 01/09/2019 Vitamin D deficiency 03/30/2025 Resolved Ambulatory Problems Diagnosis Date Noted No Resolved Ambulatory Problems Past Medical History: Diagnosis Date Breast cancer ([facility]) Diabetes ([facility]) Past Surgical History: Procedure Laterality Date CT [...] camille hearing aids. documented in this encounter [facility] 03-30-2025 Note Patient is here toda y for a 6 week follow up with ECHO. Patient's caregiver states the patient is SOB, leg swelling, BOSCH, major fatigue and weight gain. Patient denies chest pain, or dizziness. Review of Systems Constitutional: Positive for malaise/fatigue and weight gain. Cardiovascular: Positive for dyspnea on exertion and leg swelling. Respiratory: Positive for shortness of breath. 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 Morbid obesity (CMS/HCC) Severe persistent asthma (CMS/HCC) Paroxysmal A-fib (CMS/HCC) Altered mental status, unspecified Hallucination Psychosis (CMS/HCC) Allergic conjunctivitis of both eyes Allergic rhinitis due to allergen BMI 38.0-38.9,adult Mental disability Mild intermittent asthma without complication Peripheral eosinophilia Vitamin D deficiency Past Medical History: Diagnosis Date Abnormal ECG Arrhythmia Asthma Atrial fibrillation (CMS/HCC) Breast cancer ([facility]/HCC) RADIATION 2017 / 2018 Coronary artery disease Depression Diabetes (CMS/HCC) GE (more content not included)... [facility] 03-24-2025 History of Present illness Narrative History: [...] pt when communicating. documented in this encounter [facility] 03-04-2025 Note Patient Education Caregiving Fall Prevention [...] Keep items that you use often in laul-fh-jhnxf places. Lower the shelves around your home [...] the way. ??? Do not use floor nepali or wax that makes floors slippery. What [...] Control and Prevention, [place]: cdc.gov ??? National [place] on Aging: margarette.nih.gov ??? National [place] on Aging: margarette.nih.gov Contact a doctor if: [...] away. ??? Do (more content not included)... [facility] 02-24-2025 Note SUBJECTIVE Reason for Visit: [...] and high-sugar foods, including frequent consumption of Kinyarwanda takeout, weekly cake, and salty soups. The [...] respiratory failure (CMS/HCC) Electrolyte and fluid disorder halfway 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 steroid Morbid obesity [...] Inspection and Palp (more content not included)... [facility] 09-09-2024 Note Cardiovascular Medic [facility] SUBJECTIVE Kayliedaynaara Salomon is a 74 y.o. female here [...] as well as Martir SEPULVEDA. Shelmith Witherell, IT SERVICE DELIVERY MANAGER increased lasix to 40mg in the AM [...] right breast in female, estrogen receptor negative ([facility]/HCC) Atrial fibrillation status post cardioversion ([facility]/HCC) Sinusitis Type 1 diabetes mellitus ([facility]/HCC) Chronic heart failure with preserved ejection fraction ([facility]/HCC) Chronic respiratory failure ([facility]/HCC) Electrolyte and fluid disorder halfway 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 steroid Morbid obesity ([facility]/HCC) Severe persistent asthma Paroxysmal A-fib ([facility]/HCC) Altered mental status, unspecified Hallucination Psychosis ([facility]) Past Medical History: Diagnosis Date Abnormal ECG Arrhythmia Asthma Atrial fibrillation ([facility]/HCC) Breast cancer ([facility]) RADIATION 2017 Coronary artery disease Depression Diabetes ([facility]/HCC) GERD (gastroesophageal reflux disease) Hypertension Myocardial infarct ([facility]/HCC) Obesity BMI 40.45 Family History Problem Relation [...] seafood Sulfa (Sulfonamide Antibiotics) Other and Unknown Vwwtzbip-Pggzsfzxir-Qzexvsbpm Rash Penicillins Rash ROS Constitutional: Positive for weight loss (9# since 06/25/2024). Cardiovascular: Positive for dyspnea on exertion ( (more content not included)... [facility] 09-09-2024 Note Patient here for 3 m [...] All other systems reviewed and are negative. [facility] 07-29-2024 Note HNO ID: [id number] Author: REGINALD ARAGON MD Service: ? Author Type: Physician Type: Progress Notes Filed: 07/31/2024 06:27 Note Text: PATIENT NAME: Kaylie Salomon DATE: 07/30/2024 PRIMARY CARE PHYSICIAN: Dr. Landeros OTHER PHYSICIANS: Dr. Ramon Smith, Afua FERRARO, Dr. Brian Gil (Cardiology [facility]) Portions of this encounter note have been [...] and CHF. She is currently managed by [facility]ology (Dr. Gil). Otherwise she has had [...] on 03/14/2023) ALLERGIES: Clarithromycin, Conjugated Estrogens, Neosporin [Yvlgqdjq-Xqhpwgoleb-Zbeckbknp], Paclitaxel, Peanut, Penicillins, and Sulfa (Sulfonamide Antibiotics) PAST MEDICAL HISTORY: PAST MEDICAL HISTORY Diagnosis Date AF (atrial fibrillation) ([facility]) Asthma Breast cancer ([facility]) 02/[address] Landeros COPD (chronic obstructive pulmonary disease) ([facility]) Edema Hyperlipidemia Hypertension OA (osteoarthritis of spine) [...] frequency or incontinence. (more content not included)... [facility] 07-29-2024 History of Present illness Narrative PATIENT NAME: Kaylie Salomon DATE: 07/30/2024 PRIMARY CARE PHYSICIAN: Dr. Landeros OTHER PHYSICIANS: Dr. Ramon Smith, Afua FERRARO, Dr. Brian Gil (Cardiology [facility]) Portions of this encounter note have been [...] and CHF. She is currently managed by [facility] (Dr. Gil). Otherwise she has had [...] on 03/14/2023) ALLERGIES: Clarithromycin, Conjugated Estrogens, Neosporin [Puhjtapm-Ekbovsdais-Phkefilto], Paclitaxel, Peanut, Penicillins, and Sulfa (Sulfonamide Antibiotics) PAST MEDICAL HISTORY: PAST MEDICAL HISTORY Diagnosis Date AF (atrial fibrillation) ([facility]) Asthma Breast cancer ([facility]) 02/[address] Landeros COPD (chronic obstructive [...] 253 RADIOLOGY/OTHER STUDIES: 06/10/2024 Diagnostic left mammogram ([facility]) Findings: Diagnostic category 2-benign finding: Left [...] Reginald Aragon MD documented in this encounter [facility] 06-25-2024 Note Cardiovascular Medic ine [facility] SUBJECTIVE Kaylie Salomon is a 74 [...] negative (CMS/HCC) Atrial fibrillation status post cardioversion ([facility]/HCC) Sinusitis Type 1 diabetes mellitus ([facility]/HCC) Chronic heart failure with preserved ejection fraction ([facility]/HCC) Chronic respiratory failure ([facility]/HCC) 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 Morbid obesity ([facility]/HCC) Severe persistent asthma Paroxysmal A-fib (CMS/HCC) Altered mental status, unspecified Hallucination Psychosis ([facility]/HCC) Past Medical History: Diagnosis Date Asthma Atrial fibrillation ([facility]/HCC) Breast cancer ([facility]/HCC) RADIATION 2017 / 2018 Coronary artery disease Depression Diabetes ([facility]/HCC) GERD (gastroesophageal reflux disease) Hypertension Myocardial infarct ([facility]/HCC) Obesity BMI 40.45 Family History Problem Relation [...] seafood Sulfa (Sulfonamide Antibiotics) Other and Unknown Cukbopgq-Bhsvyxrmtv-Fdbwzsyjx Rash Penicillins Rash Review of Systems Constitutional: [...] Current Outpatient Medications: (more content not included)... [facility] 06-25-2024 Note Patient here for 1 w upper [place] follow up HFpEF. She has lost 15# [...] All other systems reviewed and are negative. 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 [facility] 06-17-2024 Note This report has been cancelled. [facility] 06-02-2024 Note Caregiver called and states pt [...] within the next 1-[address] [facility] Cardiology Available 7a-5pm via [employer] - Social Platform Chat Pager [phone] [facility] 09-12-2023 Miscellaneous Notes Ordered faxed to Umm Ramos RN BRM/HM: Please sign pended order Orders sent to That special woman, Umm PH: [phone] Will notifijoe Monsalve, managed care analyst, once signed Carin Ramos RN documented in this encounter [facility] 09-12-2023 Note HNO ID: [id number] Author: Reginald Aragon MD Service: ? Author Type: Physician Type: Progress Notes Filed: 09/12/2023 7:56 PM Note Text: PATIENT NAME: Kaylie Salomon DATE: 09/12/2023 PRIMARY CARE PHYSICIAN: Dr. Landeros OTHER PHYSICIANS: Dr. Ramon Smith, [facility] Portions of this encounter note [...] on 03/14/2023) ALLERGIES: Clarithromycin, Conjugated Estrogens, Neosporin [Yzwczjcg-Uiktluitla-Oqjniaiwq], Paclitaxel, Peanut, Penicillins, and Sulfa (Sulfonamide Antibiotics) [...] 167.7 cm (5' (more content not included)... [facility] 06-10-2023 Miscellaneous Notes Spoke to daytime caregiver. She has not heard from anyone regarding scheduling of Mammogram at [facility]. Order faxed to [facility] scheduling. She is aware to call [...] pending order. PSS: Pt needs scheduled at [facility]. Thanks! Orly Fraga RN documented in this encounter [facility] 04-04-2023 Miscellaneous Notes Spoke w/ Penelope. Requests that we send pt's most recent lab results to Dr Landeros's office. Results from 03/[address] Landeros's office as requested. Chary Cornelius RN Voicemail message received from pt's sister, Penelope, regarding lab results. Call placed to sister. No answer. Message left requesting call back. Chary Cornelius RN documented in this encounter [facility] 03-14-2023 History of Present illness Narrative PATIENT NAME: Kaylie Salomon DATE: 03/14/2023 PRIMARY CARE PHYSICIAN: Dr. Charles Landeros OTHER PHYSICIANS: Dr. Ramon Smith, [facility] X[facility] Portions of this encounter [...] once daily. ALLERGIES: Clarithromycin, Conjugated Estrogens, Neosporin [Pcyzyboo-Dkqtpeagfz-Qhbjdhpsp], Paclitaxel, Peanut, Penicillins, and Sulfa (Sulfonamide Antibiotics) PAST MEDICAL HISTORY: PAST MEDICAL HISTORY Diagnosis Date AF (atrial fibrillation) ([facility]) Asthma Breast cancer (HCC) 02/[address] [...] 253 RADIOLOGY/OTHER STUDIES: 06/14/2022 Left Diagnostic Mammogram ([facility]) Findings: Diagnostic category 2-benign finding: Left [...] She will undergo her surveillance mammogram at [facility] in May 2023. I will see [...] Reginald Aragon MD documented in this encounter [facility] 09-13-2022 History of Present illness Narrative [...] once daily. ALLERGIES: Clarithromycin, Conjugated Estrogens, Neosporin [Viiahyvy-Xufkbzzqbo-Hfwtcwnzp], Paclitaxel, Peanut, Penicillins, and Sulfa (Sulfonamide Antibiotics) PAST MEDICAL HISTORY: PAST MEDICAL HISTORY Diagnosis Date AF (atrial fibrillation) ([facility]) Asthma Breast cancer ([facility]) 02/[address] Landeros COPD (chronic obstructive pulmonary disease) ([facility]) Edema Hyperlipidemia Hypertension OA (osteoarthritis of spine) [...] 253 RADIOLOGY/OTHER STUDIES: 06/14/2022 Left Diagnostic Mammogram ([facility]) Findings: Diagnostic category 2-benign finding: Left breast: No significant suspicious finding. Scattered benign-appearing nodules are present. No significant change has occurred. 08/17/2021 CT CHEST IMPRESSION: 1. Stable posttreatment changes, as described above. 2. Stable appearance of left lower lobe 5 mm nodule. No new or enlarging nodules are seen. 3. No evidence of bulky intrathoracic lymphadenopathy. 06/13/2021 Left Diagnostic Mammogram ([facility]) No significant suspicious finding. Scattered benign-appearing [...] Samantha Benitez APRN.CNP documented in this encounter [facility] 03-14-2022 History of Present illness Narrative [...] once daily. ALLERGIES: Clarithromycin, Conjugated Estrogens, Neosporin [Zrdevntc-Yaemouemke-Bvaprxzhc], Paclitaxel, Peanut, Penicillins, and Sulfa (Sulfonamide Antibiotics) PAST MEDICAL HISTORY: PAST MEDICAL HISTORY Diagnosis Date AF (atrial fibrillation) ([facility]) Asthma Breast cancer ([facility]) 02/[address] Landeros COPD (chronic obstructive [...] intrathoracic lymphadenopathy. 06/13/2021 Left Diagnostic Mammogram ([facility]) No significant suspicious finding. Scattered benign-appearing [...] Reginald Aragon MD documented in this encounter [facility] 08-17-2021 History of Present illness Narrative [...] 2021 10:20 AM documented in this encounter [facility] 08-17-2021 Nurse Note Radiology Service Progress [...] DATE: August 17, 2021 TIME: 9:[address] [facility] 08-17-2021 Nurse Note Radiology Service [...] TIME: 9:26 AM documented in this encounter [facility] Evaluation note Diagnosis Malignant neoplasm of overlapping sites of right breast in female, estrogen receptor negative (HCC)- Primary Other iron deficiency anemia [facility] Diagnosis Malignant neoplasm of overlapping sites of right breast in female, estrogen receptor negative (HCC)- Primary Iron deficiency anemia secondary to inadequate dietary iron intake [facility] Malignant neoplasm of overlapping sites of right breast in female, estrogen receptor negative (HCC)- Primary History of iron deficiency Personal history of diseases of blood and blood-forming organs [facility] Diagnosis Malignant neoplasm of overlapping sites of right breast in female, estrogen receptor negative (HCC)- Primary [facility] Diagnosis Malignant neoplasm of overlapping sites of right breast in female, estrogen receptor negative (HCC)- Primary Hx of total mastectomy of right breast Personal history of surgery to other organs [facility] Diagnosis Lung nodules Other nonspecific abnormal finding of lung field [facility] Diagnosis Malignant neoplasm of overlapping sites of right breast in female, estrogen receptor negative (HCC)- Primary [facility] Diagnosis Sensorineural hearing loss (SNHL) of both ears- Primary Tinnitus, bilateral Unspecified tinnitus Impaired auditory discrimination, bilateral documented in this encounter [facility]* Diagnosis Sensorineural hearing loss (SNHL), bilateral- Primary documented in this encounter [facility]* Diagnosis Stage 3b chronic kidney disease (CKD) (CMS-HCC)- Primary CKD (chronic kidney disease), stage IV (CMS-HCC) Chronic kidney disease, Stage IV (severe) [facility] filedocumented in this encounter [facility] SystemInstructionsNot on filedocumented in this encounter [facility] referral (narrative)* Diagnostic Procedure Only (Routine) - Pending Review Specialty Diagnoses / Procedures Referred By Contac t Referred To Contact [facility] Diagnoses Malignant neoplasm of overlapping sites of right breast in female, estrogen receptor negative (HCC) Procedures RAMBO DIAGNOSTIC LT DIAGNOSTIC MAMMOGRAPHY COMPUTER-AIDED DETCJ Reginald Casas MD [address] [place] [address] [facility] [address] [place] [phone] Referral ID Status Reason Start Date Expiration Date Visits Requested Visits Authorized [id number] Pending Review Auto-Generat ed Referral 03/14/2022 04/13/2023 1 1 [facility] for referral (narrative)* Diagnostic Procedure Only (Routine) - Pending Review Specialty Diagnoses / Procedures Referred By Contac t Referred To Contact [facility] IMAGING Diagnoses Malignant neoplasm of overlapping sites of right breast in female, estrogen receptor negative (HCC) Procedures RAMBO DIAGNOSTIC LEFT DIAGNOSTIC MAMMOGRAPHY COMPUTER-AIDED DETCJ Shayy Villatoro PA-C [address] [place] [address] [facility] [address] [place] [phone] Referral ID Status Reason Start Date Expiration Date Visits Requested Visits Authorized [id number] Pending Review Auto-Generat ed Referral 06/07/2023 07/06/2024 1 1 [facility] for visit Narrative* Consultation (Routine) - Pending Review Specialty Diagnoses / Procedures Referred By Contac t Referred To Contact Nephrology Diagnoses CKD (chronic kidney disease), stage IV ([facility]-HCC) Rosa Lyon, RU-IT SERVICE DELIVERY MANAGER [address] [facility] [place] [address] Phone: tel: fax: PHN [facility] [address] [place] [address] Phone: tel: fax: Referral ID Status Reason Start Date Expiration Date Visits Requested Visits Authorized [id number] Pending Review Specialty Services Required 04/29/2025 04/29/2026 1 1 [facility] Summary Purpose Family History No Family [...] Records Found Hospital Course Note MR#: [id number] [facility] Pt. Name: Kaylie Salomon Admitted: 01/31/2019 Discharged: 02/02/2019 Date of : 1950 Physician: Tramaine Sandhu MD DISCHARGE SUMMARY PRIMARY CARE PHYSICIAN: No PCP. CONSULTING SERVICE: None. ADMITTING DIAGNOSES: 1. Xokhf-sq-rrqtryo hypercapnic hypoxic respiratory failure. 2. Atrial fibrillation with rapid ventricular response. 3. Moderate persistent asthma with exacerbation. 4. Productive cough. DISCHARGE DIAGNOSES: 1. Gcruo-zk-jtstrfr hypoxemic/hypercapnic respiratory failure. 2. Moderate persistent asthma [...] PROSTHESIS, MASTECTOMY BRA Reginald Aragon MD [address] [place] [address] [place] [address] Referral ID Status Reason Start Date Expiration Date V isits Requested Visits Authorized [id number] Closed Auto-Generate d Referral 09/12/2023 09/12/2024 1 1 Additional Source Comments INFORMATION SOURCE (unrecogn ized section and content) DATE CREATED AUTHOR 12/05/2018 [facility] ical Center DATE CREATED AUTHOR AUTHOR'S ORGANIZ ATION 05/13/2019 [facility] DATE CREATED AUTHOR AUTHOR'S ORGANIZ ATION 09/21/2022 [facility] DATE CREATED AUTHOR AUTHOR'S ORGANIZ ATION 08/01/2024 [facility] DATE CREATED AUTHOR AUTHOR'S ORGANIZ ATION 04/09/2025 [facility] ical Center DATE CREATED AUTHOR AUTHOR'S ORGANIZ ATION 04/11/2025 [facility] dical Specialists [facility] DATE CREATED AUTHOR AUTHOR'S ORGANIZ ATION 04/29/2025 [facility] DATE CREATED AUTHOR AUTHOR'S ORGANIZ ATION 05/18/2025 [facility] DATE CREATED AUTHOR AUTHOR'S ORGANIZ ATION 06/06/2025 [facility] DATE CREATED AUTHOR AUTHOR'S ORGANIZ ATION 06/12/2025 [facility] y[facility] Source Comments (unrecognize d section and content) In the event this informatio n is protected by the Federal Confidentiality of Alcohol and Drug Abuse Patient Records regulations: The Federal rules restrict any use of the information to criminally investigate or prosecute any alcohol or drug abuse patient.[facility] the event this information is protected by the Federal Confidentiality of Alcohol and Drug Abuse Patient Records regulations: The Federal rules restrict any use of the information to criminally investigate or prosecute any alcohol or drug abuse patient.[facility] the event this information is protected by the Federal Confidentiality of Alcohol and Drug Abuse Patient Records regulations: The Federal rules restrict any use of the information to criminally investigate or prosecute any alcohol or drug abuse patient.[facility] the event this information is protected by the Federal Confidentiality of Alcohol and Drug Abuse Patient Records regulations: The Federal rules restrict any use of the information to criminally investigate or prosecute any alcohol or drug abuse patient.[facility] the event this information is protected by the Federal Confidentiality of Alcohol and Drug Abuse Patient Records regulations: The Federal rules restrict any use of the information to criminally investigate or prosecute any alcohol or drug abuse patient.[facility] the event this information is protected by the Federal Confidentiality of Alcohol and Drug Abuse Patient Records regulations: The Federal rules restrict any use of the information to criminally investigate or prosecute any alcohol or drug abuse patient.[facility] the event this information is protected by the Federal Confidentiality of Alcohol and Drug Abuse Patient Records regulations: The Federal rules restrict any use of the information to criminally investigate or prosecute any alcohol or drug abuse patient.[facility] HospitalIn the event this information is protected by the Federal Confidentiality of Alcohol and Drug Abuse Patient Records regulations: The Federal rules restrict any use of the information to criminally investigate or prosecute any alcohol or drug abuse patient.[facility] HospitalIn the event this information is protected by the Federal Confidentiality of Alcohol and Drug Abuse Patient Records regulations: The Federal rules restrict any use of the information to criminally investigate or prosecute any alcohol or drug abuse patient.[facility] HospitalIn the event this information is protected by the Federal Confidentiality of Alcohol and Drug Abuse Patient Records regulations: The Federal rules restrict any use of the information to criminally investigate or prosecute any alcohol or drug abuse patient.[facility] Reason for Visit (unrecogniz ed section and content) Reason Comments Breast Cancer 6 month follow up Reason Comments Refill Request Reason Comments Breast Cancer Follow up Reason Comments Breast Cancer 1 year follow up Reason Comments Results Reason Comments Orders Reason Comments Radiology CT Reason Comments Hearing Loss Audio 03/24/25 Care Teams (unrecognized sec tion and content) Advertising Agent Relationship Specialty Start Date End Date Charles Landeros MD [address] [place] [address] PCP - General Family Practice 03/11/19 Samantha Benitez, GEOSCIENCES ASSOCIATE PROFESSOR.IT SERVICE DELIVERY MANAGER [address] [place] [address] Physician Tankage Supervisor Hematology/Oncology 04/27/19 Reginald Aragon MD [address] [place] [address] Physician Hematology/Oncology 12/07/19 Advertising Agent Relationship Specialty Start Date End Date Charles Landeros MD [address] [place] [address] PCP - General Family Medicine 03/11/19 Samantha Benitez, GEOSCIENCES ASSOCIATE PROFESSOR.IT SERVICE DELIVERY MANAGER [address] [place] [address] Physician Tankage Supervisor Hematology/Oncology 04/27/19 Reginald Aragon MD [address] [place] [address] Physician Hematology/Oncology 12/07/19 Advertising Agent Relationship Specialty Start Date End Date Charles Landeros MD [address] [place] [address] PCP - General Family Medicine 03/11/19 Samantha Benitez, GEOSCIENCES ASSOCIATE PROFESSOR.IT SERVICE DELIVERY MANAGER [address] [place] [place] [address] Physician Tankage Supervisor Hematology/Oncology 04/27/19 Reginald Aragon MD [address] [place] [place] [address] Physician Hematology/Oncology 12/07/19 Advertising Agent Relationship Specialty Start Date End Date Charles Landeros MD [address] [place] [address] PCP - General Family Medicine 03/11/19 Samantha Benitez, GEOSCIENCES ASSOCIATE PROFESSOR.IT SERVICE DELIVERY MANAGER [address] [place] [place] [address] Physician Tankage Supervisor Hematology/Oncology 04/27/19 Reginald Aragon MD [address] [place] [place] [address] Physician Hematology/Oncology 12/07/19 Advertising Agent Relationship Specialty Start Date End Date Charles Landeros MD [address] [place] [address] PCP - General Family Medicine 03/11/19 Samantha Benitez, GEOSCIENCES ASSOCIATE PROFESSOR.IT SERVICE DELIVERY MANAGER [address] [place] [address] Physician Tankage Supervisor Hematology/Oncology 04/27/19 Reginald Aragon MD [address] [place] [place] [address] Physician Hematology/Oncology 12/07/19 Advertising Agent Relationship Specialty Start Date End Date Charles Landeros MD [address] [place] [address] PCP - General Family Medicine 03/11/19 Samantha Benitez, GEOSCIENCES ASSOCIATE PROFESSOR.IT SERVICE DELIVERY MANAGER [address] [facility] [place] [address] Physician Tankage Supervisor Hematology/Oncology 04/27/19 Reginald Aragon MD [address] [place] [address] Physician Hematology/Oncology 12/07/19 Advertising Agent Relationship Specialty Start Date End Date Charles Landeros MD [address] [place] [address] PCP - General Family Medicine 03/11/19 Samantha Benitez, GEOSCIENCES ASSOCIATE PROFESSOR.IT SERVICE DELIVERY MANAGER [address] [place] [place] [address] Physician Tankage Supervisor Hematology/Oncology 04/27/19 Reginald Aragon MD [address] [place] [place] [address] Physician Hematology/Oncology 12/07/19 Advertising Agent Relationship Specialty Start Date End Date Charles Landeros MD [address] [place] [address] PCP - General Family Medicine 03/11/19 Samantha Benitez, GEOSCIENCES ASSOCIATE PROFESSOR.IT SERVICE DELIVERY MANAGER [address] [place] [place] [address] Physician Tankage Supervisor Hematology/Oncology 04/27/19 Reginald Aragon MD [address] [place] [place] [address] Physician Hematology/Oncology 12/07/19 Advertising Agent Relationship Specialty Start Date End Date Charles Landeros MD [address] [place] [id number] PCP - General Family Medicine 03/11/19 Samantha Benitez APRN.CNP [address] [place] [place] [address] Physician Tankage Supervisor Hematology/Oncology 04/27/19 Reginald Aragon MD [address] [place] [address] [place] [address] Physician Hematology/Oncology 12/07/19 Advertising Agent Relationship Specialty Start Date End Date Ishan Reyez MD [address] [place] [id number] PCP - General Family Medicine 12/22/24 Oh Andujar NP [address] [place] [address] Referring Physician Family Medicine 02/11/24 Advertising Agent Relationship Specialty Start Date End Date Ishan Reyez MD [address] [place] [id number] PCP - General Family Medicine 12/22/24 Oh Andujar NP [address] [place] [address] Referring Physician Family Medicine 02/11/24 Advertising Agent Relationship Specialty Start Date End Date Ishan Reyez MD [address] [place] [phone] PCP - General Family Medicine 12/22/24 Oh Andujar NP [address] [place] [address] [phone] Referring Physician Family Medicine 02/11/24 Advertising Agent Relationship Specialty Start Date End Date Ishan Reyez MD [address] [place] [address] [phone] PCP - General Family Medicine 12/22/24 Oh Andujar NP [address] [place] [address] [phone] Referring Physician Family Medicine 02/11/24 Advertising Agent Relationship Specialty Start Date End Date Oh Andujar APRN-CHETNA [address] [place] [address] [phone] PCP - General Nurse Practitioner 11/27/23 Advertising Agent Relationship Specialty Start Date End Date Oh Andujar APRN-IT SERVICE DELIVERY MANAGER [address] [place] [address] [phone] PCP - General Nurse Practitioner 11/27/23 FOR [...] BE BASED ON THE PRIMARY CLINICAL RECORDS. [facility]. provides no warranty or guarantee of the accuracy or completeness of information in this document.
[2025-06-23 14:53] LABS: Anion Gap 8.3; Blood Urea Nitrogen 50.0 mg/dL (7.0-18.0); Calcium 9.3 mg/dL (8.5-10.1); Carbon Dioxide 38.6 mmol/L (21.0-32.0); Chloride 100 mmol/L (98-107); Estimated GFR (African America 29 (>=60 mL/min/1.73m^2); Estimated GFR (Non-African Ame 24 (>=60 mL/min/1.73m^2); Glucose 108 mg/dL (74-106); Potassium 4.9 mmol/L (3.5-5.1); Sodium 142 mmol/L (136-145)
== END 2025-06-23 14:27 | disposition home or self-care (01) ==
LOC: LAB 14:27
PROVIDERS: PCP Nurse Practitioner; Visit Provider Nurse Practitioner Family
DX: I10 Essential (primary) hypertension (principal); J96.11 Chronic respiratory failure with hypoxia; J45.50 Severe persistent asthma, uncomplicated; E03.9 Hypothyroidism, unspecified
CPT/HCPCS: 36415; 80048; 84443

== ENCOUNTER 2025-07-13 10:48 | Outpatient (OUT) | payer MEDICARE, MEDICAID, SELFPAY ==
--- OUTSIDE RECORDS SUMMARY | 2025-07-13 10:52 | XMS_ITS | CCD ---
Author Organization [facility] Care Team Providers Care Housing Director Name Role Phone ELTAHAWY, EHAB A Admitting Unavailable ELTAHAWY, EHAB A Attending Unavailable UNKNOWN, PHYSICIAN Referring Unavailable UNKNOWN, PHYSICIAN Primary Care Unavailable ARACELI SANDHU Admitting Unava ilable ARACELI SANDHU Attending Unava ilable UNKNOWN, PHYSICIAN Referring Unavailable UNKNOWN, PHYSICIAN Primary Care Unavailable Charles Landeros MD Primary Care Provider Emmanuel ADMITTING MANAGER.ONCOLOGY TECHNICIAN, Samantha Unavailable Reginald Aragon MD Unavailable Charles Landeros MD Primary Care Provider Emmanuel ADMITTING MANAGER.ONCOLOGY TECHNICIAN, Samantha Unavailable [phone] Reginald Aragon MD Unavailable Charles Landeros MD Primary Care Provider Emmanuel ADMITTING MANAGER.CHETNA, Samantha Unavailable [phone] Reginald Aragon MD Unavailable TIGRE, DR CHARLES [...] Care Unavailable REGINALD ARAGON Referring Unavailable Con RESOURCE MANAGEMENT SPECIALIST, Oh Unavailable Ishan Reyez MD Primary Care Provider Con, FACTORY MANAGER Oh L Attending Unavailable Con, FACTORY MANAGER Oh L Attending Unavailable Con, FACTORY MANAGER Oh L Attending Unavailable Con, FACTORY MANAGER Oh Fuentes Attending Unavailable Con, FACTORY MANAGER Oh L Attending Unavailable Con, FACTORY MANAGER Oh L Attending Unavailable BRIAN GIL Referring Unavailable CON, OH L Primary Care Unavailable CON, OH L Referring Unavailable CON, OH L Primary Care Unavailable ROSA LYON Referring Unavailable CON, OH L Primary Care Unavailable CON, OH L Referring Unavailable CON, OH L Primary Care Unavailable Con ADMITTING MANAGER-CHETNA, Oh L Primary Care Provider CON, OH L Referring Unavailable CON, OH L Primary Care Unavailable Inderjit Cha Attending Unavailab Inderjit Hughes Admitting Unavailab Charles Rain Primary Care Unavailable DEANN EASLEY Attending Unavailable JIM LOMBARDI Attending Unavailable DEANN EASLEY Attending Unavailable ROSA LYON Attending Unavailable ROSA LYON Attending Unavailable RENEE SABILLON Attending Unavailable ROSA LYON Attending Unavailable ROSA LYON Attending Unavailable BRIAN GIL Attending Unavailable Allergies Allergy Classification Reported Allergen(s) Allergy Type Date of Onset Reaction(s) Facility (3 sources) Penicillin; Translations: [penicillin] Drug Allergy 01-17-20 19 [facility] Repository (6 sources) Sulfonamides (Antibiotic); Translations: [SULFA (SULFONAMIDE ANTIBIOTICS)] Drug allergy (disorder) 01-28-20 10 [facility] Repository (16 sources) bacitracin / neomycin / polymyxin b; Translations: [NEOMYCIN-BACITRAC IN-POLYMYXIN] Drug Allergy 05-06-20 19 Rash [facility] (17 sources) Clarithromycin; Translations: [CLARITHROMYCIN] Drug Allergy 01-28-20 10 Unknown, Other (See Comments) [facility] (16 sources) Estrogens, Conjugated (FDC); Translations: [CONJUGATED ESTROGENS] Drug Allergy 01-28-20 10 Unknown [facility] (14 sources) PACLitaxel; Translations: [PACLITAXEL] Drug Allergy 08-24-20 Other: See Comments, Other (See Comments) [facility] (16 sources) peanut allergenic extract; Translations: [PEANUT] Drug Allergy 05-06-20 Anaphylaxis [facility] (5 sources) Penicillins; Translations: [PENICILLINS] Drug Allergy 05-06-20 19 Rash [facility] (20 sources) Sulfonamides (Antibiotic) Drug Allergy 01-28-20 10 Unknown, Other (See Comments) [facility] (9 sources) Penicillins Drug Allergy 05-06-20 19 [facility] (10 sources) Bacitracin / Polymyxin B; Translations: [BACITRACIN-POLYMY NIRMAL B] Drug Allergy 02-10-20 [facility] (8 sources) Clarithromycin Propensity to adverse reactions 02-10-20 [facility] (8 sources) PACLitaxel Drug Allergy 02-10-20 [facility] (8 sources) Peanut oil Propensity to adverse reactions 02-10-20 [facility] (8 sources) Penicillins Propensity to adverse reactions 02-10-20 [facility] (8 sources) Conjugated Estrogens Propensity to adverse reactions 02-10-20 [facility] (8 sources) Peanut-Containing Drug Products Propensity to adverse reactions 02-10-20 [facility] (9 sources) Flavoring Agent; Translations: [FLAVORING AGENT] Drug Allergy 03-30-20 Other (See Comments) [facility] (5 sources) Shellfish-Derived Products Drug Allergy 03-30-20 [facility] (5 sources) Bacitracin; Translations: [bacitracin] Drug Allergy 05-16-20 [facility] Repository (1 source) peanut; Translations: [Peanuts] Food allergy (disorder) [facility] Repository (1 source) Peanut butter; Translations: [Peanut butter] Food allergy (disorder) [facility] Repository (6 sources) Shrimp product; Translations: [Shrimp] Food allergy (disorder) 05-07-20 [facility] Repository (1 source) Sulfonamides (Antibiotic); Translations: [sulfa drugs] Propensity to adverse reactions (disorder) [facility] Repository (7 sources) Pineapple; Translations: [Pineapple] Food allergy (disorder) 05-07-20 [facility] Repository (2 sources) Penicillins Propensity to adverse reactions to drug 05-06-20 Rash [facility] (3 sources) Neomycin; Translations: [NEOMYCIN SULFATE] Drug Allergy 04-25-20 [facility] (3 sources) Polymyxin B; Translations: [POLYMYXIN B] Drug Allergy 04-25-20 [facility] (3 sources) Estrogens, Conjugated (FDC); Translations: [ESTROGENS, CONJUGATED] Drug Allergy 05-16-20 [facility] Repository (1 source) Clarithromycin Drug Allergy 05-16-20 [facility] Repository (1 source) Fish Oils Drug Allergy 06-12-20 [facility] Repository (1 source) Neomycin Drug Allergy 05-16-20 [facility] Repository (1 source) PACLitaxel Drug Allergy 05-16-20 [facility] Repository (1 source) peanut allergenic extract Drug Allergy 05-16-20 [facility] Repository (1 source) Penicillins Drug allergy (disorder) 06-12-20 [facility] Repository (1 source) Sulfacetamide Drug Allergy 06-12-20 [facility] Repository (1 source) Sulfonamides (Antibiotic) Drug allergy (disorder) 05-16-20 [facility] Repository (1 source) Sulfur Drug Allergy 06-12-20 [facility] Repository (1 source) tree nut, unspecified Drug allergy (disorder) 06-12-20 [facility] Repository (1 source) polymyxin B Drug allergy (disorder) 05-16-20 [facility] Repository (1 source) Bromelains; Translations: [BROMELAINS] Drug Allergy 04-25-20 [facility] Repository (1 source) SULFUR HEXAFLUORIDE; Translations: [SULFUR HEXAFLUORIDE] Propensity to adverse reactions to drug (disorder) 07-08-20 [facility] Repository (1 source) Shellfish Protein-Containing Drug Products Drug Allergy 03-30-20 [facility] Healthcare Medications Current Medications Medication Drug Class(es) Dates [...] 1 tablet by zohreh th once daily. [id number] 200 actuat albuterol 0.09 mg/actuat metered dose inhaler (20 sources) beta2-Adrenergic Agonist take 1 puff(s) by [...] / ipratropium bromide 0.167 mg/ml inhalation solution (20 sources) Anticholinergic, beta2-Adrenergic Agonist Start: 0 take [...] NEBULIZER QID apixaban 5 mg oral tablet (20 sources) Factor Xa Inhibitor Start: 03-17-20 19 take 1 tablet by mouth twice daily ELIQUIS 5 mg tab(s) Take 5 mg by mouth twice daily. 03/17/2019 Active Comment on above: Take 5 mg by mouth t wice daily. ARIPiprazole 15 mg oral tablet (10 sources) Atypical Antipsychotic take 1 tablet by mouth once daily ARIPiprazole (Abilify) 15 MG tablet Take 15 mg by mouth Daily 1 1/2 tablet Active Comment on above: Take 15 mg by mouth once daily. atorvastatin 40 mg oral tablet (20 sources) HMG-CoA Reductase Inhibitor Start: 01-17-20 19 atorvastatin (LIPITOR) 40 mg tablet Take 40 mg by mouth as directed. Takes 80mg in the AM and 40mg in the Pm 3 01/16/2019 Active Comment on above: Take 40 mg by mouth once daily. 1 ml benralizumab 30 mg/ml auto-injector (20 sources) Interleukin-5 Receptor alpha-directed Cytolytic Antibody Start: 02-22-20 21 benralizumab (FASENRA PEN) 30 mg/mL auto-injector 1 mL (30 mg total) every 60 (sixty) days. 02/21/2021 Active Start: 02-21-2021 FASENRA PEN 30 mg/mL 02/21/2021 Active benralizumab (Fa senra Pen) 30 MG/ML injection Inject 30 mg under the skin Active brexpiprazole 2 mg oral tablet (8 sources) Atypical Antipsychotic Start: 04-08-2025 take 1 tablet by mouth in the morning REXULTI 2 mg tablet Take 1 tablet (2 mg total) by mouth in the morning. 04/08/2025 Active Start: 07-23-2024 Rexulti 0.5 MG tablet 0.5 mg 07/23/2024 Active cholecalciferol 0.05 mg oral capsule (20 sources) Vitamin D Start: 03-01-2019 VITAMIN D-3 2, 000 unit cap 2,000 Units once daily. 5 03/01/2019 Active take 2 tablets by mouth in the m orning cholecalciferol (VITAMIN D3) 1,000 units tablet Take 2 tablets (2,000 Units total) by mouth in the morning. Active Comment on above: 2,000 Units once linda ly. dapagliflozin 5 mg oral tablet (20 sources) Sodium-Glucose Cotransporter 2 Inhibitor Start: 11-30-2020 dapagliflozin (FARXIGA) 5 mg tablet 1 tablet (5 mg total) in the morning. 11/30/2020 Active Start: 11-30-2020 take 2 tablets by mo ut once daily FARXIGA 5 mg tablet Take 10 mg by mouth once daily. 11/30/2020 Active Comment on above: Take 10 mg by mouth once daily. fluticasone propionate 0.05 mg/actuat metered dose nasal spray (20 sources) Corticosteroid Start: 02-26-2019 fluticasone (FLONASE) 50 [...] / salmeterol 0.05 mg/actuat dry powder inhaler (20 sources) Corticosteroid, beta2-Adrenergic Agonist Start: 03-03-2019 ADVAIR [...] / vilanterol 0.025 mg/actuat dry powder inhaler (9 sources) Corticosteroid, beta2-Adrenergic Agonist Start: 01-12-2025 take [...] morning. Active furosemide 20 mg oral tablet (20 sources) Loop Diuretic Start: 08-19-2023 take 2 [...] Start: 01-16-2019 take 2 tablets by mo uth once daily furosemide (LASIX) 20 mg tablet [...] once daily. loratadine 10 mg oral tablet (20 sources) Start: 05-19-2019 take 1 tablet by mouth once daily loratadine (CLARITIN) 10 mg tablet Take 10 mg by mouth once daily. 0 05/19/2019 Active Comment on above: Take 10 mg by mouth once daily. losartan potassium 50 mg oral tablet (20 sources) Angiotensin 2 Receptor Amber Start: 03-13-2019 take 1 tablet by mouth once daily losartan (COZAAR) 100 mg tablet Take 100 mg by mouth once daily. 3 03/13/2019 Active Start: 03-13-2019 take 1 tablet by zohreh once daily losartan (COZAAR) 50 mg tablet Take 50 mg by mouth once daily. 3 03/13/2019 Active take 2 tablets by mo [facility] once daily losartan (Cozaar) 50 MG tablet Take 100 mg by mouth Daily Active Comment on above: Take 100 mg by mouth once daily. metFORMIN hydrochloride 500 mg oral tablet (20 sources) Biguanide Start: 0 take 1 tablet [...] BID metoprolol tartrate 100 mg oral tablet (20 sources) beta-Adrenergic Amber Start: 06-18-2023 take 1 [...] a day. montelukast 10 mg oral tablet (20 sources) Leukotriene Receptor Antagonist Start: 0 take [...] AFFECTED AREA ondansetron 8 mg oral tablet (20 sources) Serotonin-3 Receptor Antagonist Start: 9 take [...] Comment on above: Take 1 tablet by [facility] every 8 hours as needed for Nausea/Vomiting. pantoprazole 40 mg delayed release oral tablet (20 sources) Proton Pump Inhibitor take 1 tablet [...] Active Start: 12-04-2021 take 2 tablets by [facility] once daily potassium chloride 20 mEq TbER TAKE 2 TABLETS BY MOUTH EVERY DAY 180 tablet 0 12/04/2021 Active Start: 02-16-2021 take 2 tablets by [facility] once daily potassium chloride ER (K-DUR, KLOR-CON) 20 mEq tablet Take 2 tablets by mouth once daily. 180 tablet 1 02/16/2021 Active potassium chlori de (Klor-Con) 20 MEQ packet 1 (one) time each day at the same time Active take 1 tablet by zohreh th in the morning potassium chloride (KLOR-CON M 20) 20 MEQ CR tablet Take 1 tablet (20 mEq total) by mouth in the morning and 1 tablet (20 mEq total) before bedtime. Active Comment on above: Take 2 tablets by mo [facility] once daily. TAKE 2 TABLETS BY MO [facility] EVERY DAY predniSONE 10 mg oral tablet (20 sources) Start: 05-02-2020 take 3 tablets by [...] Take 1 tablet by zohreh th every 6 hours as needed. sertraline 50 mg oral tablet (20 sources) Serotonin Reuptake Inhibitor Start: 2018 take [...] twice daily spironolactone 25 mg oral tablet (11 sources) Aldosterone Antagonist Start: 2022 End: 2025 take 1 tablet by mouth once daily spironolactone (Aldactone) 25 MG tablet Take 25 mg by mouth Daily 08/20/2023 Active Comment on above: Take 25 mg by mouth once daily. 60 actuat tiotropium 0.64560 mg/actuat inhalation spray (20 sources) Anticholinergic Start: 2018 take 1.25 ug [...] Problem Date Documented Da te Episodic/Chronic Asthma (20 sources) Unspecified asthma, uncomplicated; Translations: [Acute severe refractory exacerbation of asthma] Onset: 01-09-2019 03-30-2025 Chronic Cancer of breast (20 sources) Overlapping malignant neoplasm of female breast; Translations: [Malignant neoplasm of overlapping sites of right female breast] Onset: 04-20-2019 Chronic Cardiac dysrhythmias (10 sources) Paroxysmal atrial fibrillation; Translations: [Paroxysmal atrial fibrillation] Onset: 12-08-2021 03-30-2025 Chronic Chronic kidney disease (3 sources) Chronic kidney disease, unspecified; Translations: [Chronic kidney disease stage 3B ] Onset: 05-05-2024 05-06-2025 Chronic Congestive heart failure; nonhypertensive (15 sources) Chronic heart failure co-occurrent with normal ejection fraction; Translations: [Chronic diastolic (congestive) heart failure] Onset: 06-18-2023 03-30-2025 Chronic Coronary atherosclerosis and other heart disease (9 sources) Old myocardial infarction; Translations: [History of acute ST segment elevation myocardial infarction] Onset: 01-09-2019 03-30-2025 Chronic Developmental disorders (6 sources) Intellectual disability; Translations: [Unspecified intellectual disabilities] Onset: 03-30-2025 03-30-2025 Chronic Diabetes mellitus without complication (8 sources) Type 2 diabetes mellitus without complications; Translations: [Type 1 diabetes mellitus] Onset: 01-09-2019 03-30-2025 Chronic Diseases of white blood cells (6 sources) Familial eosinophilia; Translations: [Peripheral eosinophilia] Onset: 03-30-2025 03-30-2025 Chronic Disorders of lipid metabolism (1 source) Hyperlipidemia, unspecified; Translations: [Hyperlipidemia, unspecified] Onset: 05-05-2024 Chronic Esophageal disorders (7 sources) Gastro-esophageal reflux disease without esophagitis; Translations: [Gastroesophageal reflux disease] Onset: 01-09-2019 03-30-2025 Chronic Essential hypertension (9 sources) Essential (primary) hypertension; Translations: [Hypertensive disorder] Onset: 01-09-2019 03-30-2025 Chronic Hypertension with complications and secondary hypertension (2 sources) Hypertensive heart disease with heart failure; Translations: [Hypertensive heart disease with heart failure] Onset: 09-09-2024 Chronic Malaise and fatigue (2 sources) Fatigue; Translations: [Fatigue] Onset: 07-08-2025 Episodic Nutritional deficiencies (6 sources) Vitamin D deficiency; Translations: [Vitamin D deficiency, unspecified] Onset: 03-30-2025 03-30-2025 Chronic Osteoarthritis (1 source) Unspecified osteoarthritis, unspecified site; Translations: [UNSPECIFIED OSTEOARTHRITIS UNS SITE] Onset: 07-25-2022 Chronic Other aftercare (1 source) Other assisted (current) drug therapy; Translations: [OTH BOUFFANT CURTAIN MACHINE TENDER CURRENT DRUG THERAPY] Onset: 07-25-2022 Episodic Other ear and sense organ disorders (4 sources) Sensorineural hearing loss, bilateral; Translations: [Sensorineural [...] Episodic Other lower respiratory disease (2 sources) Shortness of breath; Translations: [Shortness of Breath] Onset: 07-08-2025 Episodic Other nutritional; endocrine; and metabolic disorders (1 source) Morbid (severe) obesity due to excess calories; Translations: [MORBID SEVERE OBES D/T EXCESS SUNIL] Onset: 07-25-2022 Chronic Other nutritional; endocrine; and metabolic disorders (6 sources) Body mass index 30+ - obesity; Translations: [Body mass index (BMI) 38.0-38.9, adult] Onset: 03-30-2025 03-30-2025 Chronic Other nutritional; endocrine; and metabolic disorders (6 sources) Morbid obesity; Translations: [Morbid (severe) obesity due to excess calories] Onset: 09-17-2023 03-30-2025 Chronic Other nutritional; endocrine; and metabolic disorders (2 sources) Obesity, unspecified; Translations: [Obesity, unspecified] Onset: 02-24-2025 Chronic Other nutritional; endocrine; and metabolic disorders (1 source) History of iron deficiency; Translations: [Personal history of other endocrine, nutritional and metabolic disease] Episodic Other upper respiratory disease (6 sources) Allergic rhinitis; Translations: [Allergic rhinitis, unspecified] Onset: 03-30-2025 03-30-2025 Chronic Other upper respiratory infections (6 sources) Sinusitis; Translations: [Chronic sinusitis, unspecified] Onset: 03-22-2023 03-30-2025 Chronic Pneumonia (except that caused by tuberculosis or sexually transmitted disease) (5 sources) Lobar pneumonia, unspecified organism; Translations: [Bronchopneumonia, unspecified organism] Onset: 07-25-2022 Episodic Residual codes; unclassified (1 source) History of right mastectomy; Translations: [Acquired absence of right breast and nipple] 09-12-2023 Episodic Residual codes; unclassified (1 source) Pain, unspecified; Translations: [Pain, unspecified] Onset: 06-04-2025 Episodic Residual codes; unclassified (2 sources) Edema; Translations: [Edema] Onset: 07-08-2025 Episodic Respiratory failure; insufficiency; arrest (adult) (6 sources) Chronic respiratory failure; Translations: [Chronic respiratory failure, unspecified whether with hypoxia or hypercapnia] Onset: 09-17-2023 03-30-2025 Chronic Schizophrenia and other psychotic disorders (8 sources) Psychotic disorder; Translations: [Unspecified psychosis not [...] Other Problems Problem Classification Problem Date Documented Date Episodic/Chronic Deficiency and other anemia (13 sources) Iron deficiency anemia; Translations: [Other iron deficiency anemias] Onset: 06-17-2019 Episodic Deficiency and other anemia (11 sources) Iron deficiency anemia secondary to inadequate dietary iron intake; Translations: [Other iron deficiency anemias] Onset: 06-17-2019 06-17-2019 Episodic Fluid and electrolyte disorders (6 sources) Disorder of fluid AND/OR electrolyte; Translations: [Other disorders of electrolyte and fluid balance, not elsewhere classified] Onset: 09-17-2023 03-30-2025 Episodic Inflammation; infection of eye (except that caused by tuberculosis or sexually transmitteddisease) (6 sources) Allergic conjunctivitis of bilateral eyes; Translations: [Acute atopic conjunctivitis, bilateral] Onset: 03-30-2025 03-30-2025 Episodic Other aftercare (6 sources) Long-term 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 steroid; Translations: [long term acute care registered nurse (current) use of inhaled steroids] Onset: 09-17-2023 03-30-2025 Episodic Other lower respiratory disease (2 sources) Other forms of dyspnea; Translations: [Other forms of dyspnea] Onset: 02-24-2025 Episodic Residual codes; unclassified (2 sources) Estrogen receptor negative status [ER-]; Translations: [ESTROGEN RECEPTOR NEGATIVE STATUS] Onset: 04-20-2019 Episodic Residual codes; unclassified (8 sources) Altered mental status; Translations: [Altered mental status, unspecified] Onset: 02-10-2024 02-10-2024 Episodic Residual codes; unclassified (8 sources) Hallucinations; Translations: [Hallucinations, unspecified] Onset: 02-10-2024 02-10-2024 Episodic Residual codes; unclassified (2 sources) Edema, unspecified; Translations: [Edema, unspecified] Onset: 03-30-2025 Episodic Respiratory failure; insufficiency; arrest (adult) (6 sources) Acute hypoxemic respiratory failure; Translations: [Acute respiratory failure with hypoxia] Onset: 01-09-2019 03-30-2025 Episodic Unclassified (1 source) COUGH, UNSPECIFIED; Translations: [COUGH, UNSPECIFIED] Onset: 07-23-2022 Results Test Name Value Interpretation Reference Range Facility 05-17-2025 36 [facility] 05-13-2025 36 Ok, then please upda te her medication list. I reviewed nephrology's recent note, will continue current dose of losartan 50mg daily. Thanks [facility] 36 Thank you! [facility] 36 Regarding lab result s from 05/11/2025: [...] the losartan. Gricel Lott seen Nephrology at [facility] Dr. Reynolds on 05/06. Office note is in patients chart. [facility] Orders Onlyon 05-13-2025 Orders Only [id number] Kaylie Salomon 1950 F Date Provider Department Center 05/13/2025 [id number] BANKS Family History Problem Relation Age of Onset Heart failure Mother Family Status - Relation Status Age at Mother Father [facility] 36on 05-12-2025 36 Regarding lab result s from 05/11/2025: CHETNA Roberto MA Please have her reduce her losartan to 50mg daily , repeat BMP in 1 month. Does she have a nephrology appt coming up? [facility] Office Visiton 05-11-2025 Follow-up visit [id number] Kaylie Salomon 1950 F Date Provider Department Center 05/11/2025 Michelle-BRIAN GIL AFUA Hardin Family History Problem Relation Age of Onset Heart failure Mother Family Status - Relation Status Age at Mother Father Level of Service:02337 NC OFFICE/OUTPATIENT ESTABLISHED LOW MDM 20 MIN [facility] 36on 05-05-2025 36 Pt caregiver was informed [facility] 36 Yes, simone lacy. Thanks [facility] 36on 05-04-2025 36 Please have her hold her bumex for 2 days then resume at 80mg in the AM, 40mg in the PM. Recheck BMP in 1 week. And can we check if she has a nephro appt scheduled please and thank you! [facility] 36 [facility] lab just called to report critical BUN of 87 and BNP of 2083. Also, she was unable to complete PFT's today, and the previous time they were ordered she wasn't able to do them either. FYI [facility] Orders Onlyon 04-26-2025 Orders Only [id number] Kaylie Salomon 1950 Provider Department Center 04/26/2025 [id number], HISTORICAL AFUA Hardin Family History Problem Relation Age of Onset Heart failure Mother Family Status - Relation Status Age at Mother Father [facility] 37on 04-22-2025 37 *EKG today shows you [...] a.fib/flutter. *Recommend you establish care with a cloth designer. *Continue to limit your fluids to 2L a day along with eating a low sodium diet. *Continue to monitor daily weights and monitor BP and HR daily. [facility] Office Visiton 04-22-2025 Follow-up visit [id number] Kaylie Salomon 1950 F Date Provider Department [place] 04/22/2025 166-ROSA LYON Family History Problem Relation Age of Onset Heart failure Mother Family Status - Relation Status Age at Mother Father Level of Service:40916 [place] OFFICE/OUTPATIENT ESTABLISHED MOD MDM 30 MIN [facility] 36on 04-20-2025 36 Any chance they can add on a BNP? [facility] 36 Do we have the rest of her labs? [facility] 36 [facility] lab called to report a critical BUN of 89. [facility] Telephoneon 04-20-2025 Telephone [id number] Nunu Salomondominic Caballero 1950 F Date Provider Department [place] 04/20/2025 928-RADHA JARA AFUA Hardin Family History Problem Relation Age of Onset Heart failure Mother Family Status - Relation Status Age at Mother Father [facility] Ambulatory Visit Summaryon 0 04-06-2025 Ambulatory Visit [...] Oh Wynne This Is Your Medications List [facility] Prescription (rollator walker) Oxygen (Oxygen - for Home) acetaminophen albuterol (Ventolin HFA 90 mcg/inh Aerosol-Adpt) albuterol-ipratropium (albuterol-ipratropium Inh Junais 3 mL UD) amiodarone (amiodarone 200 mg Tab) apixaban (apixaban 5 mg oral tablet) atorvastatin (atorvastatin 40 mg Tab) benralizumab (Fasenra Pen 30 mg/mL subcutaneous solution) brexpiprazole (Rexulti 0.5 mg oral tablet) cholecalciferol (Vitamin D3 2000 intl units oral Tab) dapagliflozin (dapagliflozin 10 mg oral tablet) fluticasone nasal (fluticasone Nasal 0.05 mg/inh [place]) fluticasone-vilanterol (Breo Ellipta 100 mcg-25 mcg inhalation [...] 1:20 PM EST With: Oh Wynne Where: [address] [address]- Saturday2025 11:00 AM EDT With: Where: [address] [address]- Medications What How Much When [...] fluticasone nasal (fluticasone Nasal 0.05 mg/ inh [place]) See instructions INSTILL 2 SPRAYS INTO EACH [...] (U (more content not included)... Normal [facility] Medicine Office/Clini c Noteon 04-06-2025 Family Medicine [...] BID, # 180 tab(s), Refills(s) 0, Pharmacy: [id number], 164, cm, 03/04/25 11:49:00 EDT, Height/Length Dosing, 122.2, kg, 03/04/25 11:49:00 EDT, Weight Dosing Follow-up No qualifying data available Problem List/Past Medical History Ongoing (HFpEF) heart failure with preserved ejection fraction Allergic rhinitis Chronic respiratory failure with hypoxia Coronary arteriosclerosis in [place] artery Decreased ambulation status Drooling Food allergy Gastroesophageal reflux disease Generalized weakness History of breast cancer Hyperlipidemia due to type 2 diabetes mellitus Hypertensive disorder 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 Hypoxemia Iron deficiency anemia secondary to inadequate dietary iron intake 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 Normal [facility] Comment on above: Result Comment: Elec tronically Signed By: Con CASTAÑEDA, Oh Fuentes\.br\Date and Time Signed: 04/06/25 15:31 EDT 37on [...] to 2L a day *Limit sodium intake [facility] Office Visiton 03-30-2025 Follow-up visit [id number] Kaylie Salomon 1950 Date Provider Department Center 03/30/2025 166-ROSA LYON AFUA Hardin Family History Problem Relation Age of Onset Heart failure Mother Family Status - Relation Status Age at Mother Father Level of Service:50774 [place] OFFICE/OUTPATIENT ESTABLISHED MOD MDM 30 MIN [facility] Orders Onlyon 03-30-2025 Orders Only [id number] Kaylie Salomon 1950 Date Provider Department Center 03/30/2025 [id number], HISTORICAL AFUA Hardin Family History Problem Relation Age of Onset Heart failure Mother Family Status - Relation Status Age at Mother Father [facility] 36on 03-26-2025 36 PT COMING IN MARCH 30 2025 [facility] Auditory function testson Bilateral Mild slopi ng [...] [facility] Orders Onlyon 03-05-2025 Orders Only [id number] Kaylie Salomon 1950 F Date Provider Department Center 03/05/2025 [id number], ADAM AFUA [facility] Family History Problem Relation Age of Onset Heart failure Mother Family Status - Relation Status Age at Mother Father Normal [facility] Ambulatory Visit Summaryon 0 03-04-2025 Ambulatory Visit Summary Ambulatory Visit Summary TISHOSCAR KAYLIE :1950 Visit Date:03/04/2025 Ambulatory Visit Instructions Your [...] tablet) fluticasone nasal (fluticasone Nasal 0.05 mg/inh [place]) fluticasone-vilanterol (Breo Ellipta 100 mcg-25 mcg inhalation [...] 1:40 PM EDT With: Oh Wynne Where: [address] [address]- Saturday2025 11:00 AM EDT With: Where: [address] [address]- Medications What How Much When Why Instructions [...] fluticasone nasal (fluticasone Nasal 0.05 mg/ inh [place]) See instructions INSTILL 2 SPRAYS INTO EACH [...] DR Tab (more content not included)... Normal [facility] Family Medicine Office/Clini c Noteon 03-04-2025 Family [...] of clutter to prevent tripping and/or falling. [place] Advance Directives reviewed, are present at home. [...] Unspecified diastolic (congestive) heart failure) Patient follows [facility], Rosa Lyon NP as directed. Most [...] as d (more content not included)... Normal [facility] Comment on above: Result Comment: Elec tronically [...] for lab drawn in 1 week. Normal [facility] Orders Onlyon 02-25-2025 Orders Only [id number] Kaylie Salomon 1950 Date Provider Department Center 02/25/2025 RENEE CARUSO Family History Problem Relation Age of Onset Heart failure Mother Family Status - Relation Status Age at Mother Father [facility] Office Visiton 02-24-2025 Follow-up visit [id number] Kaylie Salomon Ada 1950 F Date Provider Department Center 02/24/2025 RENEE CARUSO Family History Problem Relation Age of Onset Heart failure Mother Family Status - Relation Status Age at Mother Father Level of Service:25222 [place] OFFICE/OUTPATIENT ESTABLISHED MOD MDM 30 MIN [facility] Orders Onlyon 02-18-2025 Orders Only [id number] Kaylie Salomon A 1950 Date Provider Department Center 02/18/2025 [id number], HISTORICAL ROSEY Hard[facility] Family History Problem Relation Age of Onset Heart failure Mother Family Status - Relation Status Age at Mother [facility] Ambulatory Visit Summaryon 0 10-06-2024 Ambulatory Visit [...] Oh Wynne This Is Your Medications List [facility] Prescription (rollator walker) albuterol-ipratropium (albuterol-ipratropium Inh Juanis 3 mL UD) apixaban (apixaban 5 mg oral tablet) atorvastatin (atorvastatin 40 mg Tab) benralizumab (Fasenra Pen 30 mg/mL subcutaneous solution) brexpiprazole (Rexulti 0.5 mg oral tablet) cholecalciferol (Vitamin D3 2000 intl units oral Tab) dapagliflozin (dapagliflozin 10 mg oral tablet) fluticasone nasal (fluticasone Nasal 0.05 mg/inh [place]) fluticasone-vilanterol (Breo Ellipta 100 mcg-25 mcg inhalation [...] Appointments 2024 11:00 AM EDT With: Where: [address] [id number]- Saturday 1:40 PM EDT With: Oh Wynne Where: [address] [address]- Medications What How Much When Why Instructions [...] fluticasone nasal (fluticasone Nasal 0.05 mg/ inh [place]) See instructions INSTILL 2 SPRAYS INTO EACH [...] rhinitis BMI 40.0-44.9, adult Coronary arteriosclerosis in [place] artery Drooling Gastroesophageal reflux disease History of breast cancer Hyperlipidemia due to type 2 diabetes mellitus Hypertensive disorder Hypoxemia Iron deficiency anemia secondary to inadequate dietary iron intake Limited mobility halfway (current) use of inhaled steroids Lumbosacral spondylosis Major depressive disorder, recurrent episode, moderate (more content not included)... Normal [facility] Family Medicine Office/Clini c Noteon 10-06-2024 Family Medicine Office/Clinic Note Family Medicine Office/Clinic Note [facility] Staff Kaylie is a 74 year old female presenting with 6 month f/u Do you have any of the following symptoms? Foot Exam: Eye Exam: Last A1C: Statin: Caregiver states pt had labs last done at [facility]. Caregiver states 2 weeks ago started [...] moderate) stable at this time. continue seeing [facility] 3. (HFpEF) heart failure with preserved ejection fraction (I50.30: Unspecified diastolic (congestive) heart failure) pt is followed by [facility] 4. Chronic kidney disease, stage 3b (N18.32: Chronic kidney disease, stage 3b) BMP reviewed 5. BMI 40.0-44.9, adult (Z68.41: Body mass index [BMI] 40.0-44.9, adult) BMI education 6. Non-smoker (Z78.9: Other specified health status) continue not smoking Orders: furosemide, 40 mg = 2 tab(s), Oral, Daily, # 180 tab(s), Refills(s) 4, Pharmacy: [facility] #[id number], 164, cm, 01/09/24 11:44:00 EDT, Height/Length Dosing, 119.9, kg, 01/09/24 11:44:00 EDT, Weight Dosing Follow-up No qualifying data available Problem List/Past Medical History Ongoing (HFpEF) heart failure with preserved ejection fraction Adult BMI 40.0-44.9 kg/sq m Allergic rhinitis BMI 40.0-44.9, adult Coronary arteriosclerosis in [place] artery Drooling Gastroesophageal reflux disease History of [...] mg/mL subcutaneous solution fluticasone Nasal 0.05 mg/inh [place], See Instructions furosemide 40 mg Tab, See [...] D3 200 (more content not included)... Normal [facility] Comment on above: Result Comment: Elec tronically Signed By: Oh Wynne\.br\Date and Time Signed: 10/06/24 12:00 EST Follow-Upon 09-09-2024 Follow-Up [id number] Kaylie Salomon 1950 F Date Provider Department Center 09/09/2024 ROSA LÓPEZ AFUA [facility] Family History Problem Relation Age of Onset Heart failure Mother Family Status - Relation Status Age at Mother Level of Service:15714 [place] OFFICE/OUTPATIENT ESTABLISHED LOW MDM 20 MIN Normal [facility] Ambulatory Visit Summaryon 1 10-04-2023 Ambulatory [...] Oh Wynne This Is Your Medications List [facility] Prescription (chioator walker) albuterol-ipratropium (albuterol-ipratropium Inh Juanis 3 mL UD) apixaban (apixaban 5 mg oral tablet) atorvastatin (atorvastatin 40 mg Tab) benralizumab (Fasenra Pen 30 mg/mL subcutaneous solution) brexpiprazole (Rexulti 0.5 mg oral tablet) cholecalciferol (Vitamin D3 2000 intl units oral Tab) dapagliflozin (dapagliflozin 10 mg oral tablet) fluticasone nasal (fluticasone Nasal 0.05 mg/inh [place]) fluticasone-vilanterol (Breo Ellipta 100 mcg-25 mcg inhalation [...] 1:40 PM EST With: Oh Wynne Where: [address] [address]- 2024 11:00 AM EDT With: Where: [address] [address]- Medications What How Much When [...] fluticasone nasal (fluticasone Nasal 0.05 mg/ inh [place]) See instructions INSTILL 2 SPRAYS INTO EACH [...] respiratory failure with hypoxia Coronary arteriosclerosis in [place] artery Drooling Gastroesophageal reflux disease Heart failure, systolic and diastolic History of breast cancer History of recent fall Hyperlipidemia due to type 2 diabetes mellitus Hypertensive disorder Hypertensive heart and 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 Hypoxemia Iron deficiency anemia secondary to inadequate dietary iron intake Limited mobil (more content not included)... Normal [facility] Family Medicine Office/Clini c Noteon 08-04-2024 Family [...] with hypoxia) stable at this time Ordered: [facility] Prescription, rollator walker, See Instructions, [...] zev, Topical, BID, 30 gm, Refill(s) 1, [id number], 164, cm, 03/08/23 12:17:00 EDT, Height/Length Dosing, 120, kg, 03/08/23 12:17:00 EDT, Weight Dosing Follow-up No qualifying data available Problem List/Past Medical History Ongoing Adult BMI 40.0-44.9 kg/sq m Allergic rhinitis BMI 40.0-44.9, adult Chronic respiratory failure with hypoxia Coronary arteriosclerosis in [place] artery Drooling Gastroesophageal reflux disease Heart failure, [...] (more content not included)... Normal [facility] Comment on above: Result Comment: Elec tronically [...] Mammography: *No Oncology Consult Notes located in [facility]. Based on your medical judgment, [...] feel free to contact me at extension [phone]. Thank you! Elif Cabrera LPN Clinical Lease Administrator [address] [address] Extension: [phone] [email or web address] Normal [facility] CBC W Auto Differential pane l (Bld)on 07-30-2024 Basophils (Bld) [#/Vol] [facility] Basophils/100 WBC (Bld) 0.1 % [facility] Differential cell count method Nom (Bld) Auto [facility] Eosinophils (Bld) [#/Vol] [facility] Eosinophils/100 WBC (Bld) 0.0 % [facility] Erythrocyte distribution width (RBC) [Ratio] 17.4 % High 11.5 - 15.0 % [facility] Hematocrit (Bld) [Volume fraction] 34.2 % Low 36.0 - 46.0 % [facility] Hemoglobin (Bld) [Mass/Vol] 10.1 g/dL Low 11.5 - 15.5 g/dL [facility] Immature granulocytes (Bld) [#/Vol] 0.03 10*3/uL [facility] Immature granulocytes/100 WBC (Bld) 0.3 % [facility] Interpretation and review of laboratory results Abnormal [facility] Lymphocytes (Bld) [#/Vol] 0.82 10*3/uL Low [facility] Lymphocytes/100 WBC (Bld) 9.0 % [facility] MCH (RBC) [Entitic mass] 26.4 pg 26.0 - 34.0 pg [facility] MCHC (RBC) [Mass/Vol] 29.5 g/dL Low 30.5 - 36.0 g/dL [facility] MCV (RBC) [Entitic vol] 89.5 fL 80.0 - 100.0 fL [facility] Monocytes (Bld) [#/Vol] 1.05 10*3/uL High [facility] Monocytes/100 WBC (Bld) 11.5 % [facility] Neutrophils (Bld) [#/Vol] 7.23 10*3/uL [facility] Neutrophils/100 WBC (Bld) 79.1 % [facility] Nucleated RBC (Bld) [#/Vol] [facility] Nucleated RBC/100 WBC (Bld) [Ratio] 0.0 % /100 WBC [facility] Platelet mean volume (Bld) [Entitic vol] 9.6 fL 9.0 - 12.7 fL [facility] Platelets (Bld) [#/Vol] 290 10*3/uL [facility] RBC (Bld) [#/Vol] 3.82 10*6/uL Low 3.90 - 5.2 0 m/uL [facility] WBC (Bld) [#/Vol] 9.14 10*3/uL [facility] Basophils (Bld) [#/Vol] 10*3/uL Normal <0.11 [facility] Comment on above: Order Comment: Speci men Type: BLOOD SPECIMEN Ordering Facility: [facility] Address: [address] [place] [address] Performed By: #### 5 7021-8 #### [facility] CLIA [id number] [address] [place] [address] Basophils/100 WBC (Bld) 0.1 % Normal [facility] Comment on above: Order Comment: Speci men Type: BLOOD SPECIMEN Ordering Facility: [facility] Address: [address] [place] [address] Performed By: #### 5 7021-8 #### [facility] CLIA [id number] [address] [place] [address] Differential cell count method Nom (Bld) Auto Normal [facility] Comment on above: Order Comment: Speci men Type: BLOOD SPECIMEN Ordering Facility: [facility] Address: [address] [place] [address] Performed By: #### 5 7021-8 #### [facility] CLIA [id number] [address] [place] [address] Eosinophils (Bld) [#/Vol] 10*3/uL Normal <0.46 [facility] Comment on above: Order Comment: Speci men Type: BLOOD SPECIMEN Ordering Facility: [facility] Address: [address] [place] [id number] Performed By: #### 5 7021-8 #### [facility] CLIA [id number] [address] [place] [address] Eosinophils/100 WBC (Bld) 0.0 % Normal [facility] Comment on above: Order Comment: Speci men Type: BLOOD SPECIMEN Ordering Facility: [facility] Address: [address] [place], [place] [address] Performed By: #### 5 7021-8 #### [facility] CLIA [id number] [address] [place] [address] Erythrocyte distribution width (RBC) [Ratio] 17.4 % High 11.5-15.0 [facility] Comment on above: Order Comment: Speci men Type: BLOOD SPECIMEN Ordering Facility: [facility] Address: [address] [place] [address] Performed By: #### 5 7021-8 #### [facility] CLIA [id number] [address] [place] [address] Hematocrit (Bld) [Volume fraction] 34.2 % Low 36.0-46.0 [facility] Comment on above: Order Comment: Speci men Type: BLOOD SPECIMEN Ordering Facility: [facility] Address: [address] [place] [address] Performed By: #### 5 7021-8 #### [facility] CLIA [id number] [address] [place] [address] Hemoglobin (Bld) [Mass/Vol] 10.1 g/dL Low 11.5-15.5 [facility] Comment on above: Order Comment: Speci men Type: BLOOD SPECIMEN Ordering Facility: [facility] Address: [address] [place] [address] Performed By: #### 5 7021-8 #### [facility] CLIA [id number] [address] [place] [address] Immature granulocytes (Bld) [#/Vol] 0.03 10*3/uL Normal <0.10 [facility] Comment on above: Order Comment: Speci men Type: BLOOD SPECIMEN Ordering Facility: [facility] Address: [address] [place] [address] Performed By: #### 5 7021-8 #### [facility] CLIA [id number] [address] [place] [address] Immature granulocytes/100 WBC (Bld) 0.3 % Normal [facility] Comment on above: Order Comment: Speci men Type: BLOOD SPECIMEN Ordering Facility: [facility] Address: [address] [place] [address] Performed By: #### 5 7021-8 #### [facility] CLIA [id number] [address] [place] [address] Lymphocytes (Bld) [#/Vol] 0.82 10*3/uL Low 1.00-4.00 [facility] Comment on above: Order Comment: Speci men Type: BLOOD SPECIMEN Ordering Facility: [facility] Address: [address] [place] [address] Performed By: #### 5 7021-8 #### [facility] CLIA [id number] [address] [place] [address] Lymphocytes/100 WBC (Bld) 9.0 % Normal [facility] Comment on above: Order Comment: Speci men Type: BLOOD SPECIMEN Ordering Facility: [facility] Address: [address] [place] [address] Performed By: #### 5 7021-8 #### [facility] CLIA [id number] [address] [place] [address] MCH (RBC) [Entitic mass] 26.4 pg Normal 26.0-34.0 [facility] Comment on above: Order Comment: Speci men Type: BLOOD SPECIMEN Ordering Facility: [facility] Address: [address] [place] [address] Performed By: #### 5 7021-8 #### [facility] CLIA [id number] [address] [place] [address] MCHC (RBC) [Mass/Vol] 29.5 g/dL Low 30.5-36.0 [facility] Comment on above: Order Comment: Speci men Type: BLOOD SPECIMEN Ordering Facility: [facility] Address: [address] [place] [address] Performed By: #### 5 7021-8 #### [facility] CLIA [id number] [address] [place] [address] MCV (RBC) [Entitic vol] 89.5 fL Normal 80.0-100.0 [facility] Comment on above: Order Comment: Speci men Type: BLOOD SPECIMEN Ordering Facility: [facility] Address: [address] [place] [address] Performed By: #### 5 7021-8 #### [facility] CLIA [id number] [address] [place] [address] Monocytes (Bld) [#/Vol] 1.05 10*3/uL High <0.87 [facility] Comment on above: Order Comment: Speci men Type: BLOOD SPECIMEN Ordering Facility: [facility] Address: [address] [place] [address] Performed By: #### 5 7021-8 #### [facility] CLIA [id number] [address] [place] [address] Monocytes/100 WBC (Bld) 11.5 % Normal [facility] Comment on above: Order Comment: Speci men Type: BLOOD SPECIMEN Ordering Facility: [facility] Address: [address] [place] [address] Performed By: #### 5 7021-8 #### [facility] CLIA [id number] [address] [place] [address] Neutrophils (Bld) [#/Vol] 7.23 10*3/uL Normal 1.45-7.50 [facility] Comment on above: Order Comment: Speci men Type: BLOOD SPECIMEN Ordering Facility: [facility] Address: [address] [place] [address] Performed By: #### 5 7021-8 #### [facility] CLIA [id number] [address] [place] [address] Neutrophils/100 WBC (Bld) 79.1 % Normal [facility] Comment on above: Order Comment: Speci men Type: BLOOD SPECIMEN Ordering Facility: [facility] Address: [address] [place] [address] Performed By: #### 5 7021-8 #### [facility] CLIA [id number] [address] [place] [address] Nucleated RBC (Bld) [#/Vol] 10*3/uL Normal <0.01 [facility] Comment on above: Order Comment: Speci men Type: BLOOD SPECIMEN Ordering Facility: [facility] Address: [address] [place] [address] Performed By: #### 5 7021-8 #### [facility] CLIA [id number] [address] [place] [address] Nucleated RBC/100 WBC (Bld) [Ratio] 0.0 /100 WBC Normal [facility] Comment on above: Order Comment: Speci men Type: BLOOD SPECIMEN Ordering Facility: [facility] Address: [address] [place] [address] Performed By: #### 5 7021-8 #### [facility] CLIA [id number] [address] [place] [address] Platelet mean volume (Bld) [Entitic vol] 9.6 fL Normal 9.0-12.7 [facility] Comment on above: Order Comment: Speci men Type: BLOOD SPECIMEN Ordering Facility: [facility] Address: [address] [place] [address] Performed By: #### 5 7021-8 #### [facility] CLIA [id number] [address] [place] [address] Platelets (Bld) [#/Vol] 290 10*3/uL Normal 150-400 [facility] Comment on above: Order Comment: Speci men Type: BLOOD SPECIMEN Ordering Facility: [facility] Address: [address] [place] [address] Performed By: #### 5 7021-8 #### [facility] CLIA [id number] [address] [place] [address] RBC (Bld) [#/Vol] 3.82 10*6/uL Low 3.90-5.20 [facility] Comment on above: Order Comment: Speci men Type: BLOOD SPECIMEN Ordering Facility: [facility] Address: [address] [place] [address] Performed By: #### 5 7021-8 #### [facility] CLIA [id number] [address] [place] [address] WBC (Bld) [#/Vol] 9.14 10*3/uL Normal 3.70-11.00 [facility] Comment on above: Order Comment: Speci men Type: BLOOD SPECIMEN Ordering Facility: [facility] Address: [address] [place] [address] Performed By: #### 5 7021-8 #### [facility] CLIA [id number] [address] [place] [address] CNOVSPon 07-30-2024 CNOVSP Visit (SP) Office ([place]) KAYLIE SALOMON ([id number]) 1950 F Date Time Provider Department 07/30/24 2:20 PM REGINALD ARAGON During your visit today, we recorded the following information about you: Temperature Pulse Respiration Blood pressure 97.3 degrees 81/minute 18/minute 96/63 Weight Height 114.3 kg 1.677 Reginald Whitt MD 07/31/2024 6:27 AM Signed PATIENT NAME: Kaylie Salomon DATE: 07/30/2024 PRIMARY CARE PHYSICIAN: Dr. Landeros OTHER PHYSICIANS: Dr. Ramon LuisAfua brownleeT, Dr. Brian Gil (Cardiology [facility]) Portions of this encounter note have been [...] and CHF. She is currently managed by [facility] [facility] (Dr. Gil). Otherwise she has had [...] on 03/14/2023) ALLERGIES: Clarithromycin, Conjugated Estrogens, Neosporin [Aftvpnzw-Ksfdbahtwp-Q olymyxin], Paclitaxel, Peanut, Penicillins, and Sulfa (Sulfonamide [...] nose ble (more content not included)... Normal [facility] Cancer Ag27-29 SerPl-aCncon 07-30-2024 Cancer Ag 27-29 Qn 31.0 [arb'U]/mL Normal <38.6 [facility] Comment on above: Order Comment: Speci men Type: BLOOD SPECIMEN Ordering Facility: [facility] Address: [address] [place] [address] Result Comment: The CA27.29 test was performed using the Siemens Storelli Sportsaur XP chemiluminometric immunoassay method. Results obtained with different assay methods or kits cannot be used interchangeably. Performed By: #### 1 7842-6 #### [facility] CLIA [id number] [address] [place] [address] [place] Comprehensive metabolic 2000 panelOrdered By: Rosa Elena Yi on 07-30-2024 Albumin [Mass/Vol] 4.0 g/dL 3.9 - 4.9 g/dL [facility] ALP [Catalytic activity/Vol] 95 U/L 34 - 123 U/L [facility] ALT [Catalytic activity/Vol] 19 U/L 7 - 38 U/L [facility] Anion gap [Moles/Vol] 10 mmol/L 8 - 15 mmol/L [facility] AST [Catalytic activity/Vol] 21 U/L 13 - 35 U/L [facility] Bilirubin [Mass/Vol] 0.4 mg/dL 0.2 - 1 .3 mg/dL [facility] Calcium [Mass/Vol] 9.3 mg/dL 8.5 - 10. 2 mg/dL [facility] Chloride [Moles/Vol] 100 mmol/L 98 - 10 7 mmol/L [facility] CO2 [Moles/Vol] 31 mmol/L High 22 - 30 mmol/L [facility] Creatinine [Mass/Vol] 1.41 mg/dL High 0.58 - 0.96 mg/dL [facility] GFR/1.73 sq M.predicted among non-blacks MDRD (S/P/Bld) [Vol rate/Area] 39 mL/min/{1.73_m2} Low - PINF [facility] Comment on above: Estimated Glomerular Filtration [...] [Mass/Vol] 83 mg/dL 74 - 99 mg/dL [facility] Comment on above: The [place] Diabete s Association (ADA) provides guidance for [...] Standards of Medical Care in Diabetes 2016, [place] Diabetes Association. Diabetes Care. 2016.39(Suppl 1). Interpretation and review of laboratory results Abnormal [facility] Potassium [Moles/Vol] 4.3 mmol/L 3.7 - 5.1 mmol/L [facility] Protein [Mass/Vol] 7.7 g/dL 6.3 - 8.0 g/dL [facility] Sodium [Moles/Vol] 141 mmol/L 136 - 144 mmol/L [facility] Urea nitrogen [Mass/Vol] 54 mg/dL High 7 - 21 mg/dL [facility] Comprehensive metabolic 2000 panelon 07-30-2024 Albumin [Mass/Vol] 4.0 g/dL Normal 3.9-4.9 [facility] Comment on above: Order Comment: Speci men Type: BLOOD SPECIMEN Ordering Facility: [facility] Address: [address] [place] [address] Performed By: #### 2 4323-8 #### [facility] CLIA [id number] [address] [place] [address] ALP [Catalytic activity/Vol] 95 U/L Normal 34-123 [facility] Comment on above: Order Comment: Speci men Type: BLOOD SPECIMEN Ordering Facility: [facility] Address: [address] [id number] Performed By: #### 2 4323-8 #### [facility] CLIA [id number] [address] [place] [address] ALT [Catalytic activity/Vol] 19 U/L Normal 7-38 [facility] Comment on above: Order Comment: Speci men Type: BLOOD SPECIMEN Ordering Facility: [facility] Address: [address] [id number] Performed By: #### 2 4323-8 #### [facility] CLIA [id number] [address] [place] [address] Anion gap [Moles/Vol] 10 mmol/L Normal 8-15 [facility] Comment on above: Order Comment: Speci men Type: BLOOD SPECIMEN Ordering Facility: [facility] Address: [address] [id number] Performed By: #### 2 4323-8 #### [facility] CLIA [id number] [address] [place] [address] AST [Catalytic activity/Vol] 21 U/L Normal 13-35 [facility] Comment on above: Order Comment: Speci men Type: BLOOD SPECIMEN Ordering Facility: [facility] Address: [address] [id number] Performed By: #### 2 4323-8 #### [facility] CLIA [id number] [address] [place] [address] Bilirubin [Mass/Vol] 0.4 mg/dL Normal 0.2-1.3 [facility] Comment on above: Order Comment: Speci men Type: BLOOD SPECIMEN Ordering Facility: [facility] Address: [address] [place] [address] Performed By: #### 2 4323-8 #### [facility] CLIA [id number] [address] [place] [address] Calcium [Mass/Vol] 9.3 mg/dL Normal 8.5-10.2 [facility] Comment on above: Order Comment: Speci men Type: BLOOD SPECIMEN Ordering Facility: [facility] Address: [address] [id number] Performed By: #### 2 4323-8 #### [facility] CLIA [id number] [address] [place] [address] Chloride [Moles/Vol] 100 mmol/L Normal 98-107 [facility] Comment on above: Order Comment: Speci men Type: BLOOD SPECIMEN Ordering Facility: [facility] Address: [address] [id number] Performed By: #### 2 4323-8 #### [facility] CLIA [id number] [address] [place] [address] CO2 [Moles/Vol] 31 mmol/L High 22-30 [facility] Comment on above: Order Comment: Speci men Type: BLOOD SPECIMEN Ordering Facility: [facility] Address: [address] [place] [address] Performed By: #### 2 4323-8 #### [facility] CLIA [id number] [address] [place] [address] Creatinine [Mass/Vol] 1.41 mg/dL High 0.58-0.96 [facility] Comment on above: Order Comment: Speci men Type: BLOOD SPECIMEN Ordering Facility: [facility] Address: [address] [id number] Performed By: #### 2 4323-8 #### [facility] CLIA [id number] [address] [place] [address] Creatinine and Glomerular filtration rate.predicted panel (S/P/Bld) 39 mL/min/1.73m??? Low >=60 [facility] Comment on above: Order Comment: Jennifer stahl Type: BLOOD SPECIMEN Ordering Facility: [facility] Address: [address] [place] [address] Result Comment: Violette mated Glomerular Filtration Rate [...] GFR. Performed By: #### 2 4323-8 #### [facility] CLIA [id number] [address] [place] [address] Glucose [Mass/Vol] 83 mg/dL Normal 74-99 [facility] Comment on above: Order Comment: Jennifer stahl Type: BLOOD SPECIMEN Ordering Facility: [facility] Address: [address] [place] [address] Result Comment: The [place] Diabetes Association (ADA) provides guidance for cutoff [...] Standards of Medical Care in Diabetes 2016, [place] Diabetes Association. Diabetes Care. 2016.39(Suppl 1). Performed By: #### 2 4323-8 #### [facility] CLIA [id number] [address] [place] [address] Potassium [Moles/Vol] 4.3 mmol/L Normal 3.7-5.1 [facility] Comment on above: Order Comment: Jennifer stahl Type: BLOOD SPECIMEN Ordering Facility: [facility] Address: [address] [place] [address] Performed By: #### 2 4323-8 #### [facility] CLIA [id number] [address] [place] [address] Protein [Mass/Vol] 7.7 g/dL Normal 6.3-8.0 [facility] Comment on above: Order Comment: Speci men Type: BLOOD SPECIMEN Ordering Facility: [facility] Address: [address] [id number] Performed By: #### 2 4323-8 #### [facility] CLIA [id number] [address] [place] [address] Sodium [Moles/Vol] 141 mmol/L Normal 136-144 [facility] Comment on above: Order Comment: Speci men Type: BLOOD SPECIMEN Ordering Facility: [facility] Address: [address] [id number] Performed By: #### 2 4323-8 #### [facility] CLIA [id number] [address] [place] [address] Urea nitrogen [Mass/Vol] 54 mg/dL High 7-21 [facility] Comment on above: Order Comment: Speci men Type: BLOOD SPECIMEN Ordering Facility: [facility] Address: [address] [place], [place] [address] Performed By: #### 2 4323-8 #### [facility] CLIA [id number] [address] [place] [address] BASIC METABOLIC PANLon 05-20 Anion gap [Moles/Vol] 10 mmol/L Normal 5-15 [facility] Comment on above: Performed By: #### 3 0934-4 #### [facility] ([id number]) [address] [place] [address], [place] [address] #### BMP #### [facility] ([id number]) [address], [address] [place] [address] Calcium [Mass/Vol] 9.5 mg/dL Normal 8.5-10.5 [facility] Comment on above: Performed By: #### 3 0934-4 #### [facility] ([id number]) [address] [place] [address] #### BMP #### [facility] ([id number]) [address], [address] [place] [address] Chloride [Moles/Vol] 96 mmol/L Low 98-109 [facility] Comment on above: Performed By: #### 3 0934-4 #### [facility] ([id number]) [address] [place] [address] #### BMP #### [facility] ([id number]) [address], [address] [place] [address] CO2 [Moles/Vol] 36 mmol/L High 22-32 [facility] Comment on above: Performed By: #### 3 0934-4 #### [facility] ([id number]) [address] [place] [address] #### BMP #### [facility] ([id number]) [address], [address] [place] [address] Creatinine [Mass/Vol] 1.35 mg/dL High 0.40-1.00 [facility] Comment on above: Result Comment: METH OD TRACEABLE TO IDMS STANDARD Performed By: #### 3 0934-4 #### [facility] ([id number]) [address] [place] [address] #### BMP #### [facility] ([id number]) [address], [address] [place] [address] GFR/1.73 sq M.predicted among non-blacks MDRD (S/P/Bld) [Vol rate/Area] 41 mL/min/{1.73_m2} Low >59 [facility] Comment on above: Result Comment: Reported eGFR is based on the CKD-EPI 2020 equation that does not use a race coefficient. Performed By: #### 3 0934-4 #### [facility] ([id number]) [address] [place] [address] #### BMP #### [facility] ([id number]) [address] [place] [address] Glucose [Mass/Vol] 98 mg/dL Normal 65-99 [facility] Comment on above: Performed By: #### 3 0934-4 #### [facility] ([id number]) [address] [place] [address] #### BMP #### [facility] ([id number]) [address] [place] [address] Potassium [Moles/Vol] 4.1 mmol/L Normal 3.5-5.0 [facility] Comment on above: Performed By: #### 3 0934-4 #### [facility] ([id number]) [address] [place] [address] #### BMP #### [facility] ([id number]) [address] [place] [address] Sodium [Moles/Vol] 142 mmol/L Normal 134-146 [facility] Comment on above: Performed By: #### 3 0934-4 #### [facility] ([id number]) [address] [place] [address] #### BMP #### [facility] ([id number]) [address] [place] [address] Urea nitrogen [Mass/Vol] 30 mg/dL High 5-27 [facility] Comment on above: Performed By: #### 3 0934-4 #### [facility] ([id number]) [address] [place] [address] #### BMP #### [facility] ([id number]) [address], [address] [place] [address] Natriuretic peptide B [Mass/ Vol]on 05-20-2024 Natriuretic peptide B (Bld) [Mass/Vol] 359 pg/mL High <100.0 [facility] Comment on above: Performed By: #### 3 0934-4 #### [facility] ([id number]) [address] [place] [address] #### BMP #### [facility] ([id number]) [address], [address] [place] [address] MICROALBUMIN - ALBUMIN:CREAT ININE URINE RATIOon 05-06-2024 ALB/CREAT RATIO 42.4 mg/g creat High 0.0-30.0 [facility] Comment on above: Performed By: #### M ALBU #### [facility] ([id number]) [address], [address] [place] [address] Albumin DL <= 20 mg/L (U) [Mass/Vol] 0.8 mg/dL Normal 0.0-1.9 [facility] Comment on above: Performed By: #### M ALBU #### [facility] ([id number]) [address], [address] [place] [address] URINE CREAT 18.87 mg/dL Normal [facility] Comment on above: Performed By: #### M ALBU #### [facility] ([id number]) [address] [facility] [place] [address] PROTEIN CREAT RATIOon 2023 RANDOM URINE PROTEIN 60 mg/L Normal <120 [facility] Comment on above: Performed By: #### U PCR #### [facility] ([id number]) [address] [facility] [address] [address] [place] [address] U/PRO/CLOTHESPIN MACHINE OPERATOR RATIO CALC 0.32 High <0.2 [facility] Comment on above: Result Comment: Neph rotic Syndrome is associated with ratios >3.5 Performed By: #### U PCR #### [facility] ([id number]) [address] [address] [place] [address] URINE CREATININE,RDM 18.77 mg/dL Normal [facility] Comment on above: Performed By: #### U PCR #### [facility] ([id number]) [address] [address] HGB A1C (GLYCO-HGB)on 2023 Glucose [Mass/Vol] 134 mg/dL Normal [facility] Comment on above: Performed By: #### H A1C, 78328-8 #### [facility] ([id number]) [address] [address] HbA1c (Bld) [Mass fraction] 6.3 % High 4.4-5.6 [facility] Comment on above: Result Comment: NOTE ADA Guidelines Result HgbA1c Normal : less than 5.7 % Prediabetes : 5.7 % to 6.4 % Diabetes : > 6.4 % Use with caution in patients with abnormal hemoglobin variants as the half-life of red blood cells and in vivo glycation rates are affected. Performed By: #### H A1C, 21156-6 #### [facility] ([id number]) [address] [address] [place] [address] Lipid 1996 panelon 4 Cholesterol [Mass/Vol] 95 mg/dL Low 150-200 [facility] Comment on above: Performed By: #### H A1C, 20356-7 #### [facility] ([id number]) [address] [address] Cholesterol in HDL [Mass/Vol] 50 mg/dL Normal >39 [facility] Comment on above: Result Comment: HDL <40 mg/dL - High Risk HDL > or = 40mg/dL- Desirable HDL >60 mg/dL - Negative Risk Performed By: #### H A1C, 20054-7 #### [facility] ([id number]) [address] [place] [address] Cholesterol in LDL [Mass/Vol] 30 mg/dL Normal <130 [facility] Comment on above: Result Comment: LDL <100 mg/dL - Desirable LDL >160 mg/dL - High Risk Performed By: #### H A1C, 57257-1 #### [facility] ([id number]) [address] [place] [address] Cholesterol in VLDL [Mass/Vol] 15 mg/dL Normal 0-30 [facility] Comment on above: Performed By: #### H A1C, 81348-2 #### [facility] ([id number]) [address] [place] [address] CHOLESTEROL:HDL 1.9 Normal 1.0-5.0 [facility] Comment on above: Performed By: #### H A1C, 73683-2 #### [facility] ([id number]) [address], [address] [place] [address] Triglyceride [Mass/Vol] 73 mg/dL Normal 27-150 [facility] Comment on above: Performed By: #### H A1C, 43770-7 #### [facility] ([id number]) [address] [place] [address] CBC W Auto Differential pane l (Bld)on 09-12-2023 Basophils (Bld) [#/Vol] 10*3/uL Normal <0.11 [facility] Comment on above: Order Comment: Speci men Type: BLOOD SPECIMEN Ordering Facility: [facility] Address: [address] [place] [address] Performed By: #### 5 7021-8 #### [facility] CLIA [id number] [address] [place] [address] Basophils/100 WBC (Bld) 0.2 % Normal [facility] Comment on above: Order Comment: Speci men Type: BLOOD SPECIMEN Ordering Facility: [facility] Address: [address] [place] [address] Performed By: #### 5 7021-8 #### [facility] CLIA [id number] [address] [place] [address] Differential cell count method Nom (Bld) Auto Normal [facility] Comment on above: Order Comment: Speci men Type: BLOOD SPECIMEN Ordering Facility: [facility] Address: [address] [place] [address] Performed By: #### 5 7021-8 #### [facility] CLIA [id number] [address] [place] [address] Eosinophils (Bld) [#/Vol] 10*3/uL Normal <0.46 [facility] Comment on above: Order Comment: Speci men Type: BLOOD SPECIMEN Ordering Facility: [facility] Address: [address] [place] [address] Performed By: #### 5 7021-8 #### [facility] CLIA [id number] [address] [place] [address] Eosinophils/100 WBC (Bld) 0.0 % Normal [facility] Comment on above: Order Comment: Speci men Type: BLOOD SPECIMEN Ordering Facility: [facility] Address: [address] [place] [address] Performed By: #### 5 7021-8 #### [facility] CLIA [id number] [address] [place] [address] Erythrocyte distribution width (RBC) [Ratio] 14.5 % Normal 11.5-15.0 [facility] Comment on above: Order Comment: Speci men Type: BLOOD SPECIMEN Ordering Facility: [facility] Address: [address] [place] [address] Performed By: #### 5 7021-8 #### [facility] CLIA [id number] [address] [place] [address] Hematocrit (Bld) [Volume fraction] 38.7 % Normal 36.0-46.0 [facility] Comment on above: Order Comment: Speci men Type: BLOOD SPECIMEN Ordering Facility: [facility] Address: [address] [place] [address] Performed By: #### 5 7021-8 #### [facility] CLIA [id number] [address] [place] [address] Hemoglobin (Bld) [Mass/Vol] 11.7 g/dL Normal 11.5-15.5 [facility] Comment on above: Order Comment: Speci men Type: BLOOD SPECIMEN Ordering Facility: [facility] Address: [address] [place] [address] Performed By: #### 5 7021-8 #### [facility] CLIA [id number] [address] [place] [address] Immature granulocytes (Bld) [#/Vol] 0.03 10*3/uL Normal <0.10 [facility] Comment on above: Order Comment: Speci men Type: BLOOD SPECIMEN Ordering Facility: [facility] Address: [address] [place] [address] Performed By: #### 5 7021-8 #### [facility] CLIA [id number] [address] [place] [address] Immature granulocytes/100 WBC (Bld) 0.3 % Normal [facility] Comment on above: Order Comment: Speci men Type: BLOOD SPECIMEN Ordering Facility: [facility] Address: [address] [place] [address] Performed By: #### 5 7021-8 #### [facility] CLIA [id number] [address] [place] [address] Lymphocytes (Bld) [#/Vol] 1.10 10*3/uL Normal 1.00-4.00 [facility] Comment on above: Order Comment: Speci men Type: BLOOD SPECIMEN Ordering Facility: [facility] Address: [address] [place] [address] Performed By: #### 5 7021-8 #### [facility] CLIA [id number] [address] [place] [address] Lymphocytes/100 WBC (Bld) 11.2 % Normal [facility] Comment on above: Order Comment: Speci men Type: BLOOD SPECIMEN Ordering Facility: [facility] Address: [address] [place] [address] Performed By: #### 5 7021-8 #### [facility] CLIA [id number] [address] [place] [address]276 MCH (RBC) [Entitic mass] 27.5 pg Normal 26.0-34.0 [facility] Comment on above: Order Comment: Speci men Type: BLOOD SPECIMEN Ordering Facility: [facility] Address: [address] [place] [address] Performed By: #### 5 7021-8 #### [facility] CLIA [id number] [address] [place] [address] MCHC (RBC) [Mass/Vol] 30.2 g/dL Low 30.5-36.0 [facility] Comment on above: Order Comment: Speci men Type: BLOOD SPECIMEN Ordering Facility: [facility] Address: [address] [place] [address] Performed By: #### 5 7021-8 #### [facility] CLIA [id number] [address] [place] [address] MCV (RBC) [Entitic vol] 91.1 fL Normal 80.0-100.0 [facility] Comment on above: Order Comment: Speci men Type: BLOOD SPECIMEN Ordering Facility: [facility] Address: [address] [place] [address] Performed By: #### 5 7021-8 #### [facility] CLIA [id number] [address] [place] [address] Monocytes (Bld) [#/Vol] 0.92 10*3/uL High <0.87 [facility] Comment on above: Order Comment: Speci men Type: BLOOD SPECIMEN Ordering Facility: [facility] Address: [address] [place] [address] Performed By: #### 5 7021-8 #### [facility] CLIA [id number] [address] [place] [address] Monocytes/100 WBC (Bld) 9.4 % Normal [facility] Comment on above: Order Comment: Speci men Type: BLOOD SPECIMEN Ordering Facility: [facility] Address: [address] [place] [address] Performed By: #### 5 7021-8 #### [facility] CLIA [id number] [address] [place] [address]00 Neutrophils (Bld) [#/Vol] 7.74 10*3/uL High 1.45-7.50 [facility] Comment on above: Order Comment: Speci men Type: BLOOD SPECIMEN Ordering Facility: [facility] Address: [address] [place] [address] Performed By: #### 5 7021-8 #### [facility] CLIA [id number] [address] [place] [address] [id number] Neutrophils/100 WBC (Bld) 78.9 % Normal [facility] Comment on above: Order Comment: Speci men Type: BLOOD SPECIMEN Ordering Facility: [facility] Address: [address] [place] [address] Performed By: #### 5 7021-8 #### [facility] CLIA [id number] [address] [place] [address] [place] [address] Nucleated RBC (Bld) [#/Vol] 10*3/uL Normal <0.01 [facility] Comment on above: Order Comment: Speci men Type: BLOOD SPECIMEN Ordering Facility: [facility] Address: [address] [place] [address] Performed By: #### 5 7021-8 #### [facility] CLIA [id number] [address] [place] [id number] Nucleated RBC/100 WBC (Bld) [Ratio] 0.0 /100 WBC Normal [facility] Comment on above: Order Comment: Speci men Type: BLOOD SPECIMEN Ordering Facility: [facility] Address: [address] [place] [address] Performed By: #### 5 7021-8 #### [facility] CLIA [id number] [address] [place] [address] 9[address]98 Platelet mean volume (Bld) [Entitic vol] 9.4 fL Normal 9.0-12.7 [facility] Comment on above: Order Comment: Speci men Type: BLOOD SPECIMEN Ordering Facility: [facility] Address: [address] [place] [address] Performed By: #### 5 7021-8 #### [facility] CLIA [id number] [address] [place] [address] 57865 Platelets (Bld) [#/Vol] 279 10*3/uL Normal 150-400 [facility] Comment on above: Order Comment: Speci men Type: BLOOD SPECIMEN Ordering Facility: [facility] Address: [address] [place] [address] Performed By: #### 5 7021-8 #### [facility] CLIA [id number] [address] [place] [address] 34206 RBC (Bld) [#/Vol] 4.25 10*6/uL Normal 3.90-5.20 [facility] Comment on above: Order Comment: Speci men Type: BLOOD SPECIMEN Ordering Facility: [facility] Address: [address] [place] [address] Performed By: #### 5 7021-8 #### [facility] CLIA [id number] [address] [place] [address] WBC (Bld) [#/Vol] 9.81 10*3/uL Normal 3.70-11.00 [facility] Comment on above: Order Comment: Speci men Type: BLOOD SPECIMEN Ordering Facility: [facility] Address: [place] [address] Performed By: #### 5 7021-8 #### [facility] CLIA [id number] [address] [place] [address] CNOVSPon 09-12-2023 CNOVSP Visit (SP) Office ([place]) KAYLIE SALOMON ([id number]) 1950 F Date Time Provider Department 09/12/23 1:15 PM REGINALD ARAGON During your visit today, we recorded the following information about you: Temperature Pulse Respiration Blood pressure 97.7 degrees 88/minute 16/minute 108/67 Weight Height 121.6 kg 1.677 m Reginald Aragon MD 09/12/2023 7:56 PM Signed PATIENT NAME: Kaylie Salomon DATE: 09/12/2023 PRIMARY CARE PHYSICIAN: Dr. Landeros OTHER PHYSICIANS: Dr. Ramon Smith, [facility] XRT Portions of this encounter note [...] on 03/14/2023) ALLERGIES: Clarithromycin, Conjugated Estrogens, Neosporin [Ikrnqnkz-Pgisatjasq-D olymyxin], Paclitaxel, Peanut, Penicillins, and Sulfa (Sulfonamide Antibiotics) PAST MEDICAL HISTORY: PAST MEDICAL HISTORY Diagnosis Date AF (atrial fibrillation) ([facility]) Asthma Breast cancer (HCC) 02/[address] Landeros COPD (chronic obstructive pulmonary disease) ([facility]) Edema Hyperlipidemia Hypertension OA (osteoarthritis of spine) [...] Skin: Ne (more content not included)... [facility] KAYLIE SALOMON ([id number]) 1950 F Date Time Provider Department 09/12/23 CARIN RAMOS During your visit today, we recorded the following information about you: Carin Ramos RN 09/12/2023 1:42 PM Signed BRM/HM: Please sign pended order Orders sent to That special woman, [facility] PH: [phone] Will notifagustin Monsalve, weekend caregiver, once signed DILCIA Velasco Natalie, RN 09/12/2023 2:59 PM Signed Ordered faxed to [facility] Ramos RN Allergies As of Date: 09/12/2023 Noted Allergy Reaction CLARITHROMYCIN 01/27/2010 16 - Unknown CONJUGATED ESTROGENS 01/27/2010 16 - Unknown NEOSPORIN (OHLBIDOE-DVCFPWKFZM-A O*05/06/2019 2 - Rash PACLITAXEL 08/24/2019 14 [...] right breast [Z90.11] Order(s):BREAST PROSTHESIS, MASTECTOMY BRA [[id number]] Order #: [id number] Prescriptions as of 09/12/2023 - BREO ELLIPTA [...] Status:Closed by CARIN RAMOS on 09/12/23 Normal [facility] Cancer Ag27-29 SerPl-aCncon 09-12-2023 Cancer Ag 27-29 Qn 31.6 [arb'U]/mL Normal <38.6 [facility] Comment on above: Order Comment: Speci men Type: BLOOD SPECIMEN Ordering Facility: [facility] Address: [address] [place] [address] Result Comment: The CA27.29 test was performed using the Siemens Storelli Sportsaur XP chemiluminometric immunoassay method. Results obtained with different assay methods or kits cannot be used interchangeably. Performed By: #### 1 7842-6 #### [facility] CLIA [id number] [address] [place] [address] [place] Comprehensive metabolic 2000 panelon 09-12-2023 Albumin [Mass/Vol] 4.4 g/dL Normal 3.9-4.9 [facility] Comment on above: Order Comment: Speci men Type: BLOOD SPECIMEN Ordering Facility: [facility] Address: [address] [place] [address] Performed By: #### 2 4323-8 #### [facility] CLIA [id number] [address] [place] [address] 75809 ALP [Catalytic activity/Vol] 87 U/L Normal 34-123 [facility] Comment on above: Order Comment: Speci men Type: BLOOD SPECIMEN Ordering Facility: [facility] Address: [address] [place] [address] Performed By: #### 2 4323-8 #### [facility] CLIA [id number] [address] [place] [address] 69975 ALT [Catalytic activity/Vol] 11 U/L Normal 7-38 [facility] Comment on above: Order Comment: Speci men Type: BLOOD SPECIMEN Ordering Facility: [facility] Address: [address] [place] [address] Performed By: #### 2 4323-8 #### [facility] CLIA [id number] [address] [place] [address] 14809 Anion gap [Moles/Vol] 10 mmol/L Normal 9-18 [facility] Comment on above: Order Comment: Speci men Type: BLOOD SPECIMEN Ordering Facility: [facility] Address: [address] [place] [address] Performed By: #### 2 4323-8 #### [facility] CLIA [id number] [address] [place] [address] 11579 AST [Catalytic activity/Vol] 14 U/L Normal 13-35 [facility] Comment on above: Order Comment: Speci men Type: BLOOD SPECIMEN Ordering Facility: [facility] Address: [address] [place] [address] Performed By: #### 2 4323-8 #### [facility] CLIA [id number] [address] [place] [address] 81581 Bilirubin [Mass/Vol] 0.6 mg/dL Normal 0.2-1.3 [facility] Comment on above: Order Comment: Speci men Type: BLOOD SPECIMEN Ordering Facility: [facility] Address: [address] [place] [id number] Performed By: #### 2 4323-8 #### [facility] CLIA [id number] [address] [place] [address] 68971 Calcium [Mass/Vol] 9.7 mg/dL Normal 8.5-10.2 [facility] Comment on above: Order Comment: Speci men Type: BLOOD SPECIMEN Ordering Facility: [facility] Address: [address] [place] [address] Performed By: #### 2 4323-8 #### [facility] CLIA [id number] [address] [place] [address] 02410 Chloride [Moles/Vol] 96 mmol/L Low 97-105 [facility] Comment on above: Order Comment: Speci men Type: BLOOD SPECIMEN Ordering Facility: [facility] Address: [address] [place] [address] Performed By: #### 2 4323-8 #### [facility] CLIA [id number] [address] [place] [address] 30831 CO2 [Moles/Vol] 31 mmol/L High 22-30 [facility] Comment on above: Order Comment: Speci men Type: BLOOD SPECIMEN Ordering Facility: [facility] Address: [address] [place] [address] Performed By: #### 2 4323-8 #### [facility] CLIA [id number] [address] [place] [address] 36603 Creatinine [Mass/Vol] 1.10 mg/dL High 0.58-0.96 [facility] Comment on above: Order Comment: Speci men Type: BLOOD SPECIMEN Ordering Facility: [facility] Address: [address] [place] [address] Performed By: #### 2 4323-8 #### [facility] CLIA [id number] [address] [place] [address] 17899 Creatinine and Glomerular filtration rate.predicted panel (S/P/Bld) 53 mL/min/1.73m??? Low >=60 [facility] Comment on above: Order Comment: Speci men Type: BLOOD SPECIMEN Ordering Facility: [facility] Address: [address] [place] [address] Result Comment: Violette mated Glomerular Filtration Rate [...] GFR. Performed By: #### 2 4323-8 #### [facility] CLIA [id number] [address] [place] [address] 12109 Glucose [Mass/Vol] 115 mg/dL High 74-99 [facility] Comment on above: Order Comment: Specchristie stahl Type: BLOOD SPECIMEN Ordering Facility: [facility] Address: [address] [place] [address] Result Comment: The [place] [employer] (ADA) provides guidance for cutoff [...] Standards of Medical Care in Diabetes 2016, [place] [employer]. Diabetes Care. 2016.39(Suppl 1). Performed By: #### 2 4323-8 #### [facility] CLIA [id number] [address] [place] [address] 77420 Potassium [Moles/Vol] 4.4 mmol/L Normal 3.7-5.1 [facility] Comment on above: Order Comment: Jennifer stahl Type: BLOOD SPECIMEN Ordering Facility: [facility] Address: [address] [place] [address] Performed By: #### 2 4323-8 #### [facility] CLIA [id number] [address] [place] [address] 42404 Protein [Mass/Vol] 7.4 g/dL Normal 6.3-8.0 [facility] Comment on above: Order Comment: Jennifer men Type: BLOOD SPECIMEN Ordering Facility: [facility] Address: [address] [place] [id number] Performed By: #### 2 4323-8 #### [facility] CLIA [id number] [address] [place] [address] 90623 Sodium [Moles/Vol] 137 mmol/L Normal 136-144 [facility] Comment on above: Order Comment: Speci men Type: BLOOD SPECIMEN Ordering Facility: [facility] Address: [address] [place] [address] Performed By: #### 2 4323-8 #### [facility] CLIA [id number] [address] [place] [address] Urea nitrogen [Mass/Vol] 36 mg/dL High 7-21 [facility] Comment on above: Order Comment: Speci men Type: BLOOD SPECIMEN Ordering Facility: [facility] Address: [address] [place] [address] Performed By: #### 2 4323-8 #### [facility] CLIA [id number] [address] [place], [place] [id number] CBC W Auto Differential pane l (Bld)on [...] 0.4 mg/dL 0.2 - 1 .3 mg/dL [facility] Calcium [Mass/Vol] 9.3 mg/dL 8.5 - 10. 2 mg/dL [facility] Chloride [Moles/Vol] 101 mmol/L 97 - 10 5 mmol/L [facility] CO2 [Moles/Vol] 29 mmol/L 22 - 30 mmol/L [facility] Creatinine [Mass/Vol] 1.02 mg/dL High 0.58 - 0.96 mg/dL [facility] Estimated Glomerular Filtration Rate 58 mL/min/1.73m Low >=60 mL/min/1.73m [facility] Glucose [Mass/Vol] 139 mg/dL High 74 - 99 mg/dL [facility] Potassium [Moles/Vol] 3.9 mmol/L 3.7 - 5.1 [...] Date: 2022-08-15 06:58 Normal [facility] BNPon 07-23-2022 Natriuretic peptide B (Bld) [Mass/Vol] 1362.0 pg/mL Critically high <=900.0 [facility] Comment on above: Performed By: #### C MADM, CMP, BNP #### [facility] [address] [place] [address] Dr. Hector Rubio CARDIAC [place] ADMITon 022 CK [Catalytic activity/Vol] 84 U/L Normal 26-192 [facility] Comment on above: Performed By: #### C MADM, CMP, BNP #### [facility] [address] [address] [address] Hector Rubio CK.MB [Mass/Vol] 2.22 ng/mL Normal <=3.[address] [facility] Comment on above: Performed By: #### C MADM, CMP, BNP #### [facility] [address] [place] [address] Dr. Hector Rubio HSTROP 41.0 pg/mL Normal 4.0-51.3 [facility] Comment on above: Result Comment: CUT- OFF POINTS HAVE BEEN ESTABLISHED BASED ON THE FOURTH UNIVERSAL DEFINITIONS OF MYOCARDIAL INFARCTION. THE UPPER REFERENCE LIMIT (URL) OF TROPONIN, DEFINED THE 99TH PERCENTILE OF cTnI DISTRIBUTION IN A REFERENCE POPULATION, HAS BEEN CONFIRMED THE DECISION THRESHOLD FOR NM DIAGNOSIS. Performed By: #### C MADM, CMP, BNP #### [facility] [address] [place] [address] Dr. Hector Rubio DIONNE 95 ng/mL Critically high 9-82 [facility] Comment on above: Performed By: #### C MADM, CMP, BNP #### [facility] [address] [place] [address] Dr. Hector Rubio CBC AUTO DIFFon 07-23-2022 BASO # 0.0 103/ul Normal 0.0-0.1 [facility] Comment on above: Performed By: #### C BC #### [facility] [address] [place] [address] Dr. Hector Rubio Basophils/100 WBC (Bld) 0.1 % Critically low 0.2-2.0 [facility] Comment on above: Performed By: #### C BC #### [facility] [address] [place] [address] Dr. Hector Rubio EO # 0.0 103/ul Normal 0.0-0.7 [facility] Comment on above: Performed By: #### C BC #### [facility] [address] [place] [address] Dr. Hector Rubio Eosinophils/100 WBC (Bld) 0.0 % Critically low 0.9-7.0 [facility] Comment on above: Performed By: #### C BC #### [facility] [address] [place] [address] Dr. Hector Rubio Erythrocyte distribution width (RBC) [Ratio] 13.7 % Normal 11.0-15.0 [facility] Comment on above: Performed By: #### C BC #### [facility] [address] [place] [address] Dr. Hector Rubio Hematocrit (Bld) [Volume fraction] 38.9 % Normal 36.0-48.0 [facility] Comment on above: Performed By: #### C BC #### [facility] [address] [place] [address] Dr. Hector Rubio Hemoglobin (Bld) [Mass/Vol] 11.8 g/dL Critically low 12.0-16.0 [facility] Comment on above: Performed By: #### C BC #### [facility] [address] [place] [address] Dr. Hector Rubio IG # 0.02 10e3/ul Normal 0.00-0.03 [facility] Comment on above: Performed By: #### C BC #### [facility] [address] [place] [address] Dr. Hector Rubio IG % 0.3 % Normal 0.0-0.5 [facility] Comment on above: Performed By: #### C BC #### [facility] [address] [place] [address] Dr. Hector Rubio LYMPH # 1.0 103/ul Critically low 1.2-3.8 [facility] Comment on above: Performed By: #### C BC #### [facility] [address] [place] [address] Dr. Hector Rubio Lymphocytes/100 WBC (Bld) 12.6 % Critically low 20.5-60.0 [facility] Comment on above: Performed By: #### C BC #### [facility] [address] [place] [address] Dr. Hector Rubio MANUAL DIFF REQ NO Normal [facility] Comment on above: Performed By: #### C BC #### [facility] [address] [address] [address] Hector Rubio MCH (RBC) [Entitic mass] 29.0 pg Normal 26.7-34.0 [facility] Comment on above: Performed By: #### C BC #### [facility] [address] [place] [address] [address] Hector Rubio MCHC (RBC) [Mass/Vol] 30.3 g/dL Normal 29.9-35.2 [facility] Comment on above: Performed By: #### C BC #### [facility] [address] [place] [address] Dr. Hector Rubio MCV (RBC) [Entitic vol] 95.6 fL Normal 81.0-99.0 [facility] Comment on above: Performed By: #### C BC #### [facility] [address] [place] [address] Dr. Hector Rubio MONO # 0.7 103/ul Normal 0.3-0.8 [facility] Comment on above: Performed By: #### C BC #### [facility] [address] [place] [address] Dr. Hector Rubio Monocytes/100 WBC (Bld) 9.0 % Normal 1.7-12.0 [facility] Comment on above: Performed By: #### C BC #### [facility] [address] [place] [address] Dr. Hector Rubio NEUT # 6.1 103/ul Normal 1.4-6.5 [facility] Comment on above: Performed By: #### C BC #### [facility] [address] [place] [address] Dr. Hector Rubio Neutrophils/100 WBC (Bld) 78.0 % Critically high 43.0-75.0 [facility] Comment on above: Performed By: #### C BC #### [facility] [address] [place] [address] Dr. Hector Rubio Platelet mean volume (Bld) [Entitic vol] 9.7 fL Normal 9.5-13.5 [facility] Comment on above: Performed By: #### C BC #### [facility] [address] [place] [address] [address] Hector Rubio PLT 202 103/ul Normal 150-450 [facility] Comment on above: Performed By: #### C BC #### [facility] [address] [place] [address] [address] Hector Rubio RBC 4.07 106/ul Critically low 4.20-5.40 [facility] Comment on above: Performed By: #### C BC #### [facility] [address] [place] [address] Dr. Hector Rubio WBC 7.8 103/ul Normal 4.0-11.0 [facility] Comment on above: Performed By: #### C BC #### [facility] [address] [place] [address] Dr. Hector Rubio Covid-19 PCR (CVDTB)on 07-01 SARS-CoV-2 (COVID-19) RNA SHLOMO+probe Ql (Unsp spec) Not detected Normal NOT DETECTED [facility] Comment on above: Result Comment: When [...] for this test is supported by the Water Plant Pump Operator of Health and Human Service's declaration that [...] By: #### C VDTBH #### [facility] [address] [place] [address] Dr. Hector Rubio PROF 14(COMP METB)on 022 Albumin [Mass/Vol] 3.7 g/dL Normal 3.4-5.0 [facility] Comment on above: Performed By: #### C MADM, CMP, BNP #### [facility] [address] [address] [address] Hector Rubio Albumin/Globulin [Mass ratio] 0.9 {ratio} Normal [facility] Comment on above: Performed By: #### C MADM, CMP, BNP #### [facility] [address] [place] [address] [address] Hector Rubio ALP [Catalytic activity/Vol] 90 U/L Normal 46-116 [facility] Comment on above: Performed By: #### C MADM, CMP, BNP #### [facility] [address] [place] [address] [address] Hector Rubio ALT [Catalytic activity/Vol] 17 U/L Normal 14-59 [facility] Comment on above: Performed By: #### C MADM, CMP, BNP #### [facility] [address] [place] [address] [address] Hector Rubio Anion gap [Moles/Vol] 7.8 mmol/L Normal [facility] Comment on above: Performed By: #### C MADM, CMP, BNP #### [facility] [address] [address] [address] Hector Rubio AST [Catalytic activity/Vol] 12 U/L Critically low 15-37 [facility] Comment on above: Performed By: #### C MADM, CMP, BNP #### [facility] [address] [address] [address] Hector Rubio Bilirubin [Mass/Vol] 0.5 mg/dL Normal 0.2-1.0 [facility] Comment on above: Performed By: #### C MADM, CMP, BNP #### [facility] [address] [address] [address] Hector Rubio Calcium [Mass/Vol] 9.1 mg/dL Normal 8.5-10.1 [facility] Comment on above: Performed By: #### C MADM, CMP, BNP #### [facility] [address] [address] [address] Hector Rubio Chloride [Moles/Vol] 102 mmol/L Normal 98-107 [facility] Comment on above: Performed By: #### C MADM, CMP, BNP #### [facility] [address] [address] [address] Hector Rubio CO2 [Moles/Vol] 33.1 mmol/L Critically high 21.0-32.0 [facility] Comment on above: Performed By: #### C MADM, CMP, BNP #### [facility] [address] [address] [address] Hector Rubio Creatinine [Mass/Vol] 0.89 mg/dL Normal 0.55-1.02 [facility] Comment on above: Performed By: #### C MADM, CMP, BNP #### [facility] [address] [place] [address] Dr. Hector Rubio EGFR-AF SAUDI ARABIAN >60 Normal >=60 [facility] Comment on above: Performed By: #### C MADM, CMP, BNP #### [facility] [address] [address] [address] Hector Rubio EGFR-NON AF SAUDI ARABIAN >60 Normal >=60 [facility] Comment on above: Performed By: #### C MADM, CMP, BNP #### [facility] [address] [address] [address] Hector Rubio Globulin (S) [Mass/Vol] 4.0 g/dL Normal [facility] Comment on above: Performed By: #### C MADM, CMP, BNP #### [facility] [address] [address] [address] Hector Rubio Glucose [Mass/Vol] 118 mg/dL Critically high 74-106 [facility] Comment on above: Performed By: #### C MADM, CMP, BNP #### [facility] [address] [address] [address] Hector Rubio Potassium [Moles/Vol] 3.9 mmol/L Normal 3.5-5.1 [facility] Comment on above: Performed By: #### C MADM, CMP, BNP #### [facility] [address] [address] [address] Hector Rubio Protein [Mass/Vol] 7.7 g/dL Normal 6.4-8.2 [facility] Comment on above: Performed By: #### C MADM, CMP, BNP #### [facility] [address] [address] [address] Hector Rubio Sodium [Moles/Vol] 139 mmol/L Normal 136-145 [facility] Comment on above: Performed By: #### C MADM, CMP, BNP #### [facility] [address] [address] [address] Hector Rubio Urea nitrogen [Mass/Vol] 29.0 mg/dL Critically high 7.0-18.0 [facility] Comment on above: Performed By: #### C MADM, CMP, BNP #### [facility] [address] [address] [address] Hector Rubio Urea nitrogen/Creatinine [Mass ratio] 32.6 mg/mg Normal [facility] Comment on above: Performed By: #### C MADM, CMP, BNP #### [facility] [address] [place] [address] Dr. Hector Rubio XR CHEST 1 Von [...] GABRIELLE LIU Date: 2022-07-23 16:40 Normal [facility] MG MAMM DX 3D LT CADon 06-14 MG MAMM DX 3D LT CAD Patient: KAYLIE SALOMON Exam Date: 06/14/2022 : 1950 Gender:F Ordering : DR REGINALD ARAGON M.D. Admission #: [id number] Family : Order #: [id number] CLICK HERE TO VIEW EXAM CORRECTION Corrected [...] Family Cancers None LOCATION: [facility] BREAST COMPOSITION: Scattered areas fibroglandular density. [...] on 09/18/2022 at 09:22 Normal [facility] CT Chest W contrast Juan Jose [...] any questions regarding this interpretation, please call [phone]. If you are unable to reach us at the number above, please feel free to contact [facility] at [phone]. DIVISION OF RADIOLOGY * * *Final Report* * * DATE OF EXAM: Aug 17 2021 10:00AM [facility] 0539 - CT CHEST W [...] kidney. The upper abdomen is otherwise unremarkable. Judicial Administrative Assistant (topogram) images: No additional findings. DIVISION OF RADIOLOGY Provider, [facility] - 08/17/2021 * * *Final Report* * * DATE OF EXAM: Aug 17 2021 10:00AM [facility] 0539 - CT CHEST W [...] kidney. The upper abdomen is otherwise unremarkable. Judicial Administrative Assistant (topogram) images: No additional findings. IMPRESSION IMPRESSION: [...] any questions regarding this interpretation, please call [phone]. If you are unable to reach us at the number above, please feel free to contact [facility] at [phone]. [facility] [facility] Radiology Study observation (narrative) [facility] CT Chest W contrast IVOrdere d By: [facility] Provider on 08-17-2021 [facility] BASIC METABOLIC PANELon 05-0 Calcium [Mass/Vol] 9.3 mg/dL Normal 8.6-10.3 [facility] Comment on above: Order Comment: Yes: Add to Previous draw if able Performed By: #### 0 0121, [id number] #### [facility] [address] [place] [address], [place] Chloride [Moles/Vol] 98 mmol/L Normal 98-107 [facility] Comment on above: Order Comment: Yes: Add to Previous draw if able Performed By: #### 0 0121, 99868 #### [facility] [address] [place] [address], [place] CO2 [Moles/Vol] 34 mmol/L High 21-31 The [facility] Comment on above: Order Comment: Yes: Add to Previous draw if able Performed By: #### 0 0121, 41641 #### [facility] [address] [place] [address], [place] Creatinine [Mass/Vol] 0.59 mg/dL Low 0.60-1.20 [facility] Comment on above: Order Comment: Yes: Add to Previous draw if able Performed By: #### 0 0121, 38667 #### [facility] [address] [place] [address], [place] GFR/1.73 sq M predicted among blacks MDRD (S/P/Bld) [Vol rate/Area] mL/min/{1.73_m2} Normal >60 [facility] Comment on above: Order Comment: Yes: Add to Previous draw if able Result Comment: Calc ulation may not be valid for patients over 70 years Performed By: #### 0 0121, 98969 #### [facility] [address] [place] [address], [place] GFR/1.73 sq M predicted among non-blacks MDRD (S/P/Bld) [Vol rate/Area] mL/min/{1.73_m2} Normal >60 [facility] Comment on above: Order Comment: Yes: Add to Previous draw if able Result Comment: Calc ulation may not be valid for patients over 70 years Performed By: #### 0 0121, 51412 #### [facility] [address] [place] [address], [place] Glucose [Mass/Vol] 256 mg/dL High 70-[address] [facility] Comment on above: Order Comment: Yes: Add to Previous draw if able Performed By: #### 0 0121, 09568 #### [facility] [address] [place] [address], [place] Potassium [Moles/Vol] 4.5 mmol/L Normal 3.5-5.1 [facility] Comment on above: Order Comment: Yes: Add to Previous draw if able Performed By: #### 0 0121, 83944 #### [facility] [address] [place] [address], [place] Sodium [Moles/Vol] 139 mmol/L Normal 136-145 [facility] [place] Comment on above: Order Comment: Yes: Add to Previous draw if able Performed By: #### 0 0121, 32444 #### [facility] [address] [place] [address], [place] Urea nitrogen [Mass/Vol] 21 mg/dL Normal 7-25 [facility] Comment on above: Order Comment: Yes: Add to Previous draw if able Performed By: #### 0 0121, 42022 #### [facility] [address] [place] [address], [facility] CBC W/DIFFon 02-02-2019 ABS BASOPHILS 0.0 10*3/uL Normal 0.0-0.2 The [facility] Comment on above: Performed By: #### 0 0121, 90764 #### [facility] [address] [facility]. [address] ABS IMM GRANS 0.1 10*3/uL Normal 0.0-0.2 The [facility] Comment on above: Performed By: #### 0 0121, 75581 #### [facility] [address] ABS NEUTROPHILS 16.9 10*3/uL High 1.6-7.[address] [facility] Comment on above: Performed By: #### 0 0121, 89633 #### [facility] [address] [facility]. [address] Basophils/100 WBC (Bld) 0.1 % Normal 0.0-1.0 [facility] Comment on above: Performed By: #### 0 0121, 82967 #### [facility] [address] [facility] [place] [place] [address], [facility] Eosinophils (Bld) [#/Vol] 0.0 10*3/uL Normal 0.0-0.5 [facility] Comment on above: Performed By: #### 0 0121, 78342 #### [facility] [address] [place] [address], [facility] Eosinophils/100 WBC (Bld) 0.0 % Normal 0.0-6.0 [facility] Comment on above: Performed By: #### 0 0121, 61998 #### [facility] [address] [address], [facility] Erythrocyte distribution width (RBC) [Ratio] 14.3 % Normal 11.5-15.0 [facility] Comment on above: Performed By: #### 0 012, 77803 #### [facility] [address] [facility] [place] [address], [facility] Hematocrit (Bld) [Volume fraction] 37.3 % Normal 36.0-45.0 [facility] Comment on above: Performed By: #### 0 012, 45400 #### [facility] [address] [facility] [place] [address], [facility] Hemoglobin (Bld) [Mass/Vol] 11.6 g/dL Low 12.0-15.0 [facility] Comment on above: Performed By: #### 0 012, 27087 #### [facility] [address] [facility] [place] [address], [facility] IMMATURE GRANS 0.4 % Normal 0.0-1.0 [facility] Comment on above: Performed By: #### 0 012, 65984 #### [facility] [address] [facility] [place] [address], [facility] Lymphocytes (Bld) [#/Vol] 0.5 10*3/uL Low 1.2-4.0 [facility] Comment on above: Performed By: #### 0 012, 49964 #### [facility] [address] [facility] [place] [address], [facility] Lymphocytes/100 WBC (Bld) 2.5 % Low 20.0-45.0 [facility] Comment on above: Performed By: #### 0 012, 07220 #### [facility] [address] [facility] [place] [address], [facility] MCH (RBC) [Entitic mass] 28.9 pg Normal 27.0-33.0 [facility] Comment on above: Performed By: #### 0 012, 14046 #### [facility] [address] [address], [facility] MCHC (RBC) [Mass/Vol] 31.1 g/dL Low 32.0-35.0 [facility] Comment on above: Performed By: #### 0 0121, 11934 #### [facility] [address] [facility] [place] [address], [facility] MCV (RBC) [Entitic vol] 93.0 fL Normal 82.0-98.0 [facility] Comment on above: Performed By: #### 0 0121, 21863 #### [facility] [address] [facility] [place] [address], [facility] Monocytes (Bld) [#/Vol] 0.3 10*3/uL Normal 0.1-1.0 [facility] Comment on above: Performed By: #### 0 012, 85265 #### [facility] [address] [facility] [place] [address], [facility] MONOS 1.5 % Low 5.0-12.0 [facility] Comment on above: Performed By: #### 0 012, 97127 #### [facility] [address] [facility] [place] [address], [facility] Neutrophils/100 WBC (Bld) 95.5 % High 40.0-72.0 [facility] Comment on above: Performed By: #### 0 0121, 52594 #### [facility] [address] [place] [address], [facility] Nucleated RBC/100 WBC (Bld) [Ratio] 0 % Normal 0-0 [facility] Comment on above: Performed By: #### 0 0121, 33766 #### [facility] [address] [place] [address], [place] PLAT CNT 265 10*3/uL Normal 150-400 The [facility] Comment on above: Performed By: #### 0 0121, 22848 #### [facility] [address] [place] [address], [facility] RBC (Bld) [#/Vol] 4.01 10*6/uL Normal 3.80-5.00 [facility] Comment on above: Performed By: #### 0 0121, 92738 #### [facility] [address] [facility] [place] [address], [facility] WBC (Bld) [#/Vol] 17.67 10*3/uL High 4.00-10.60 [facility] Comment on above: Performed By: #### 0 0121, 66697 #### [facility] [address] [facility] [address] POC GLUCOSE LABon 02-02-2019 Glucose [Mass/Vol] 215 mg/dL High 70-100 [facility] Comment on above: Performed By: #### 0 0121, 51215 #### [facility] [address] [facility]. [address] BNP (B-TYPE NATRIURETIC PEPT DARCI)on 02-01-2019 Natriuretic peptide B (Bld) [Mass/Vol] 423 pg/mL High 0-100 The [facility] Comment on above: Order Comment: Yes: Add to Previous draw if able Result Comment: Give n the appropriate clinical setting a BNP result of >100 pg/mL indicates congestive heart failure. Performed By: #### 8 5123 #### [facility] [address] [address], [facility] CBC W/DIFFon 02-01-2019 ABS BASOPHILS 0.0 10*3/uL Normal 0.0-0.2 [facility] Comment on above: Order Comment: Yes: Add to Previous draw if able Performed By: #### 5 0103 #### [facility] [address] [place] [address], [facility] ABS IMM GRANS 0.1 10*3/uL Normal 0.0-0.2 [facility] Comment on above: Order Comment: Yes: Add to Previous draw if able Performed By: #### 5 0103 #### [facility] [address] [place] [address], [facility] ABS NEUTROPHILS 12.2 10*3/uL High 1.6-7.[address] [facility] Comment on above: Order Comment: Yes: Add to Previous draw if able Performed By: #### 5 0103 #### [facility] [address] [place] [address], [facility] Basophils/100 WBC (Bld) 0.2 % Normal 0.0-1.0 [facility] Comment on above: Order Comment: Yes: Add to Previous draw if able Performed By: #### 5 3 #### [facility] [address] [place] [address], [facility] Eosinophils (Bld) [#/Vol] 0.0 10*3/uL Normal 0.0-0.5 [facility] Comment on above: Order Comment: Yes: Add to Previous draw if able Performed By: #### 5 3 #### [facility] [address] [place] [address], [facility] Eosinophils/100 WBC (Bld) 0.0 % Normal 0.0-6.0 [facility] Comment on above: Order Comment: Yes: Add to Previous draw if able Performed By: #### 5 3 #### [facility] [address] [place] [address], [place] Erythrocyte distribution width (RBC) [Ratio] 14.3 % Normal 11.5-15.0 [facility] Comment on above: Order Comment: Yes: Add to Previous draw if able Performed By: #### 3 #### [facility] [address] [place] [address], [place] Hematocrit (Bld) [Volume fraction] 39.9 % Normal 36.0-45.0 [facility] Comment on above: Order Comment: Yes: Add to Previous draw if able Performed By: #### 5 0103 #### [facility] [address] [address], [facility] Hemoglobin (Bld) [Mass/Vol] 11.8 g/dL Low 12.0-15.0 [facility] Comment on above: Order Comment: Yes: Add to Previous draw if able Performed By: #### 5 0103 #### [facility] [address] [facility] [place] [address], [facility] IMMATURE GRANS 0.4 % Normal 0.0-1.0 [facility] Comment on above: Order Comment: Yes: Add to Previous draw if able Performed By: #### 5 3 #### [facility] [address] [facility] [place] [address], [facility] Lymphocytes (Bld) [#/Vol] 0.3 10*3/uL Low 1.2-4.0 [facility] Comment on above: Order Comment: Yes: Add to Previous draw if able Performed By: #### 5 3 #### [facility] [address] [facility] [place] [address], [facility] Lymphocytes/100 WBC (Bld) 2.6 % Low 20.0-45.0 [facility] Comment on above: Order Comment: Yes: Add to Previous draw if able Performed By: #### 5 0103 #### [facility] [address] [facility] [place] [address], [facility] MCH (RBC) [Entitic mass] 28.6 pg Normal 27.0-33.0 [facility] Comment on above: Order Comment: Yes: Add to Previous draw if able Performed By: #### 5 3 #### [facility] [address] [place] [address], [facility] MCHC (RBC) [Mass/Vol] 29.6 g/dL Low 32.0-35.0 [facility] Comment on above: Order Comment: Yes: Add to Previous draw if able Performed By: #### 5 0103 #### [facility] [address] [place] [address], [facility] MCV (RBC) [Entitic vol] 96.6 fL Normal 82.0-98.0 [facility] Comment on above: Order Comment: Yes: Add to Previous draw if able Performed By: #### 5 0103 #### [facility] [address] [place] [address], [facility] Monocytes (Bld) [#/Vol] 0.1 10*3/uL Normal 0.1-1.0 [facility] Comment on above: Order Comment: Yes: Add to Previous draw if able Performed By: #### 3 #### [facility] [address] [facility]. [address] MONOS 0.9 % Low 5.0-12.0 [facility] Comment on above: Order Comment: Yes: Add to Previous draw if able Performed By: #### 5 3 #### [facility] [address] [facility] [place] [address], [facility] Neutrophils/100 WBC (Bld) 95.9 % High 40.0-72.0 [facility] Comment on above: Order Comment: Yes: Add to Previous draw if able Performed By: #### 5 3 #### [facility] [address] [facility]. [address] Nucleated RBC/100 WBC (Bld) [Ratio] 0 % Normal 0-0 [facility] Comment on above: Order Comment: Yes: Add to Previous draw if able Performed By: #### 5 3 #### [facility] [address] [address], [facility] PLAT CNT 240 10*3/uL Normal 150-400 The [facility] Comment on above: Order Comment: Yes: Add to Previous draw if able Performed By: #### 5 3 #### [facility] [address] [place] [id number], [facility] RBC (Bld) [#/Vol] 4.13 10*6/uL Normal 3.80-5.00 The [facility] Comment on above: Order Comment: Yes: Add to Previous draw if able Performed By: #### 5 0103 #### [facility] [address] [place] [id number], [facility] WBC (Bld) [#/Vol] 12.76 10*3/uL High 4.00-10.60 [facility] Comment on above: Order Comment: Yes: Add to Previous draw if able Performed By: #### 5 3 #### [facility] [address] [place] [address], [facility] COMP METABOLIC PANELon 02-01 Albumin [Mass/Vol] 4.1 g/dL Normal 3.5-5.7 [facility] Comment on above: Order Comment: Yes: Add to Previous draw if able Performed By: #### 0 0121, 15153 #### [facility] [address] [address], [facility] ALKALINE PHOSPH 70 IU/L Normal 34-104 [facility] Comment on above: Order Comment: Yes: Add to Previous draw if able Performed By: #### 0 0121, 27569 #### [facility] [address] [place] [address], [facility] ALT [Catalytic activity/Vol] 14 U/L Normal 7-52 [facility] Comment on above: Order Comment: Yes: Add to Previous draw if able Performed By: #### 0 0121, 40769 #### [facility] [address] [place] [id number], [facility] AST [Catalytic activity/Vol] 16 U/L Normal 13-39 [facility] Comment on above: Order Comment: Yes: Add to Previous draw if able Performed By: #### 0 0121, 10244 #### [facility] [address] [place] [address], [place] Bilirubin [Mass/Vol] 0.5 mg/dL Normal 0.3-1.0 [facility] Comment on above: Order Comment: Yes: Add to Previous draw if able Performed By: #### 0 0121, 94560 #### [facility] [address] [place] [address], [place] Calcium [Mass/Vol] 9.0 mg/dL Normal 8.6-10.3 [facility] Comment on above: Order Comment: Yes: Add to Previous draw if able Performed By: #### 0 0121, 08007 #### [facility] [address] [place] [address], [place] Chloride [Moles/Vol] 98 mmol/L Normal 98-107 [facility] Comment on above: Order Comment: Yes: Add to Previous draw if able Performed By: #### 0 0121, 64234 #### [facility] [address] [place] [address], [place] CO2 [Moles/Vol] 31 mmol/L Normal 21-31 [facility] Comment on above: Order Comment: Yes: Add to Previous draw if able Performed By: #### 0 0121, 59107 #### [facility] [address] [place] [address], [place] Creatinine [Mass/Vol] 0.67 mg/dL Normal 0.60-1.20 [facility] Comment on above: Order Comment: Yes: Add to Previous draw if able Performed By: #### 0 0121, 12082 #### [facility] [address] [place] [address], [place] GFR/1.73 sq M predicted among blacks MDRD (S/P/Bld) [Vol rate/Area] mL/min/{1.73_m2} Normal >60 [facility] Comment on above: Order Comment: Yes: Add to Previous draw if able Result Comment: Calc ulation may not be valid for patients over 70 years Performed By: #### 0 0121, 28125 #### [facility] [address] [place] [address], [place] GFR/1.73 sq M predicted among non-blacks MDRD (S/P/Bld) [Vol rate/Area] mL/min/{1.73_m2} Normal >60 [facility] Comment on above: Order Comment: Yes: Add to Previous draw if able Result Comment: Calc ulation may not be valid for patients over 70 years Performed By: #### 0 0121, 47693 #### [facility] [address] [place] [address], [place] Glucose [Mass/Vol] 245 mg/dL High 70-100 [facility] Comment on above: Order Comment: Yes: Add to Previous draw if able Performed By: #### 0 0121, 91685 #### [facility] [address] [place] [address], [place] Potassium [Moles/Vol] 4.2 mmol/L Normal 3.5-5.1 [facility] Comment on above: Order Comment: Yes: Add to Previous draw if able Performed By: #### 0 0121, 59908 #### [facility] [address] [place] [address], [place] Protein [Mass/Vol] 7.1 g/dL Normal 6.0-8.3 [facility] Comment on above: Order Comment: Yes: Add to Previous draw if able Performed By: #### 0 0121, 75800 #### [facility] [address] [place] [address], [place] Sodium [Moles/Vol] 136 mmol/L Normal 136-145 [facility] Comment on above: Order Comment: Yes: Add to Previous draw if able Performed By: #### 0 0121, 08571 #### [facility] [address] [place] [address], [facility] Urea nitrogen [Mass/Vol] 13 mg/dL Normal 7-25 [facility] Comment on above: Order Comment: Yes: Add to Previous draw if able Performed By: #### 0 0121, 52230 #### [facility] [address] [facility] [place] [address], [facility] POC GLUCOSE LABon 02-01-2019 Glucose [Mass/Vol] 225 mg/dL High 70-100 [facility] Comment on above: Performed By: #### 0 0121, 27109 #### [facility] [address] [facility] [place] [address], [place] Glucose [Mass/Vol] 230 mg/dL High 70-100 [facility] Comment on above: Performed By: #### 0 0121, 42667 #### [facility] [address] [facility] [place] [address], [place] Glucose [Mass/Vol] 237 mg/dL High 70-100 [facility] Comment on above: Performed By: #### 8 5499 #### [facility] [address] [facility] [place] [address], [facility] Glucose [Mass/Vol] 247 mg/dL High 70-100 [facility] Comment on above: Performed By: #### 8 5499 #### [facility] [address] [facility] [place] [address], [facility] PORTABLE CHEST 1 VIEWon PORTABLE CHEST 1 VIEW [facility] Department of Radiology [address] [place] [address] ======== Patient Name: KAYLIE SALOMON : 1950 Sex: F Age: Race: White Pt. Location: [address] [place] [address] Patient Status: I Ordered Date: 01/31/2019 11:45:00 [...] findings. Electronically signed by:Rachael Cardenas. Transcribed by: [email or web address], User Resident: ROSA STRANGE Electronically Signed by: RACHAEL CARDENAS @ 02/01/2019 12:39 PM I personally read this/these film(s) with this resident Normal [facility] Comment on above: Order Comment: R/O I nfiltrates PROCALCITONINon 02-01-2019 PROCALCITONIN 0.07 ng/mL Normal 0.00-0.10 [facility] Comment on above: Order Comment: Yes: [...] PCT<0.5ng/mL Performed By: #### 3 1488 #### [facility] [address] [facility] [place] [address], [facility] TROPONIN-Ion 02-01-2019 Troponin I.cardiac [Mass/Vol] 0.08 ng/mL High 0.00-0.04 [facility] Comment on above: Order Comment: No: D o not add to previous draw Result Comment: REFE RENCE RANGES: 0.00 - 0.04 ng/ml NORMAL 0.05 - 0.50 ng/ml INDETERMINATE > 0.50 ng/ml CONSISTENT WITH AN M.I. Performed By: #### 3 2280 #### [facility] [address] [facility] [place] [address], [facility] Troponin I.cardiac [Mass/Vol] 0.08 ng/mL High 0.00-0.04 [facility] Comment on above: Order Comment: No: D o not add to previous draw Result Comment: REFE RENCE RANGES: 0.00 - 0.04 ng/ml NORMAL 0.05 - 0.50 ng/ml INDETERMINATE > 0.50 ng/ml CONSISTENT WITH AN M.I. Performed By: #### 0 0121, 45636 #### [facility] [facility] [address] [place] [address], [facility] Cardiovascular Lab Reporton 01-16-2019 Cardiovascular Lab Report [facility] Patient Name: [facility] Kaylie Caballero MR #: [id number] Department of Physician: Pepe Alexandre M.D. Division of Service Date: 01/16/2019 Cardiology Birthdate: 1950 Adult Cardiovascular Room #: [facility] [address] [place] [address] Cardiovascular Laboratory Report FINAL IMPRESSION: 1. Nonobstructive [...] the right radial artery was obtained. A 6-[place] Islander glide sheath was inserted without difficulty. Bilateral [...] angled Glidewire. INDICATIONS: Troponin elevation, type 2 [id number] myocardial infarction. Electronically Signed by: Shemar Hudson M.D. 01/29/2019 08:36 A Shemar Hudson M.D. Date Dict: 01/16/2019/01:01 Criselda/Shemar Hudson M.D. Date Trans: 01/16/2019 02:39 P/kiran [id number] Normal [facility] SWEAT CHLORIDEon 12-03-2018 SWEAT CHLORIDE 36 mmol/L Abnormal [facility] Comment on above: Order Comment: Right [id number] Left arm [id number] Result Comment: REFE RENCE VALUES <=29 mMol/L CYSTIC FIBROSIS IS UNLIKELY 30-59 mMol/L INTERMEDIATE >=60 mMol/L INDICATIVE OF CYSTIC FIBROSIS NOTE: SWEAT CHLORIDE VALUES LESS THAN 30 mMol/L HAVE BEEN DOCUMENTED IN GENETICALLY PROVEN CF PATIENTS. CLINICAL CORRELATION IS NECESSARY. Performed By: #### S [facility] #### [facility] [address] [place] [address] WT COLLECTED 0.177 grams Normal [facility] Comment on above: Order Comment: Right [id number] Left arm [id number] Performed By: #### S [facility] #### [facility] [address] [place] [address] SWEAT CHLORIDE 42 mmol/L Abnormal [facility] Comment on above: Order Comment: Doroteo keith fax results to Doctor Charles Landeros MD. Phone: [phone] Result Comment: REFE RENCE VALUES <=29 mMol/L CYSTIC FIBROSIS IS UNLIKELY 30-59 mMol/L INTERMEDIATE >=60 mMol/L INDICATIVE OF CYSTIC FIBROSIS NOTE: SWEAT CHLORIDE VALUES LESS THAN 30 mMol/L HAVE BEEN DOCUMENTED IN GENETICALLY PROVEN CF PATIENTS. CLINICAL CORRELATION IS NECESSARY. Performed By: #### S [facility] #### [facility] [address] [place] [address] WT COLLECTED 0.215 grams Normal [facility] Comment on above: Order Comment: Doroteo keith fax results to Doctor Charles Landeros MD. Phone: [phone] Performed By: #### S [facility] #### [facility] [address] [place] [address] Vital Signs Date Time Vital Sign Value Performing Clinician Facility 05-06-2025 08:10-0400 Diastolic blood pressure 78 mm[Hg] Pema Reynolds MD Work Phone: [facility] 05-06-2025 08:10-0400 Heart rate 75 /min Pema Reynolds MD Work Phone: [facility] 05-06-2025 08:10-0400 Systolic blood pressure 118 mm[Hg] [facility] 05-06-2025 08:05-0400 Body height 167.6 cm Pema Reynolds MD Work Phone: [facility] 05-06-2025 08:05-0400 Body mass index (BMI) [Ratio] 41.13 kg/m2 Pema Reynolds MD Work Phone: [facility] 05-06-2025 08:05-0400 Body weight 115.58 kg Pema Reynolds MD Work Phone: [facility] 04-07-2025 13:47-0400 Body height 165.1 cm Jim Lombardi MD Work Phone: [facility] 04-07-2025 13:47-0400 Body mass index (BMI) [Ratio] 42.43 kg/m2 Jim Lombardi MD Work Phone: [facility] 04-07-2025 13:47-0400 Body weight 115.67 kg Jim Lombardi MD Work Phone: [facility] 04-07-2025 13:47-0400 Diastolic blood pressure 66 mm[Hg] Jim Lombardi MD Work Phone: [facility] 04-07-2025 13:47-0400 Heart rate 72 /min Jim Lombardi MD Work Phone: [facility] 04-07-2025 13:47-0400 Systolic blood pressure 103 mm[Hg] Jim Lombardi MD Work Phone: [facility] 07-30-2024 13:54-0400 Body height 167.7 cm Reginald Aragon MD Work Phone: [facility] 07-30-2024 13:54-0400 Body mass index (BMI) [Ratio] 40.64 kg/m2 Reginald Aragon MD Work Phone: [facility] 07-30-2024 13:54-0400 Body temperature 97.3 [degF] Reginald Aragon MD Work Phone: [facility] 07-30-2024 13:54-0400 Body weight 114.3 kg Reginald Aragon MD Work Phone: [facility] 07-30-2024 13:54-0400 Diastolic blood pressure 63 mm[Hg] Reginald Aragon MD Work Phone: [facility] 07-30-2024 13:54-0400 Heart rate 81 /min Reginald Aragon MD Work Phone: [facility] 07-30-2024 13:54-0400 Respiratory rate 18 /min Reginald Aragon MD Work Phone: [facility] 07-30-2024 13:54-0400 SaO2% (BldA) [Mass fraction] 94 % Reginald Aragon MD Work Phone: [facility] 07-30-2024 13:54-0400 Systolic blood pressure 96 mm[Hg] Reginald Aragon MD Work Phone: [facility] 03-14-2023 12:45-0400 Body height 167.7 cm [...] 167.7 cm Samantha Benitez APRN.CNP Work Phone: [facility] 09-13-2022 12:57-0500 Body temperature 97.59 [degF] Samantha Benitez ADMITTING MANAGER.ONCOLOGY TECHNICIAN Work Phone: [facility] 09-13-2022 12:57-0500 Body weight 120.47 kg Samantha Benitez ADMITTING MANAGER.ONCOLOGY TECHNICIAN Work Phone: [facility] 09-13-2022 12:57-0500 Diastolic blood pressure 68 mm[Hg] Samantha Benitez ADMITTING MANAGER.ONCOLOGY TECHNICIAN Work Phone: [facility] 09-13-2022 12:57-0500 Heart rate 93 /min Samantha Benitez ADMITTING MANAGER.ONCOLOGY TECHNICIAN Work Phone: [facility] 09-13-2022 12:57-0500 Respiratory rate 16 /min Samantha Benitez ADMITTING MANAGER.ONCOLOGY TECHNICIAN Work Phone: [facility] 09-13-2022 12:57-0500 SaO2% (BldA) [Mass fraction] 100 % Samantha Benitez ADMITTING MANAGER.ONCOLOGY TECHNICIAN Work Phone: [facility] 09-13-2022 12:57-0500 Systolic blood pressure 120 mm[Hg] Samantha Benitez ADMITTING MANAGER.ONCOLOGY TECHNICIAN Work Phone: [facility] [...] Type Care Provider Facility Start: 03-07-2026 ambulatory FACTORY MANAGER [place] [facility] Start: 10-06-2025 ambulatory FACTORY MANAGER [facility] Start: 07-08-2025 End: 07-09-2025 Telephone encounter Deann Easley CCC-A [facility] Comment on above: Schedule Fitting Start: 07-08-2025 End: 07-08-2025 ambulatory [facility] Start: 06-23-2025 End: 06-23-2025 Bamboo flowsheet Deann Ada MaganaYasmin CCC-A [facility] Start: 06-23-2025 End: 06-23-2025 Bamboo flowsheet Deann Ada MaganaYasmin CCC-A [facility] [place] Start: 06-23-2025 End: 06-23-2025 Clinical Support Deann Easley CCC-A [facility] Comment on above: Sensorineural hearin g loss (SNHL) of both ears (Primary Dx) Start: 06-09-2025 ambulatory Inderjit Ly acility:[facility] Start: 06-04-2025 ambulatory [place] [facility] Start: 05-11-2025 End: 05-11-2025 ambulatory [facility] Start: 05-06-2025 End: 05-06-2025 Office outpatient new 45 minutes Pema Reynolds MD Work Phone: [facility] Comment on above: Stage 3b chronic kid marshall disease (CKD) [place] (Primary Dx); CKD (chronic kidney disease), stage IV ([facility] Start: 04-29-2025 End: 04-29-2025 Telephone encounter Scanning Provider External [facility] Start: 04-22-2025 End: 04-22-2025 ambulatory [facility] Start: 04-07-2025 End: 04-07-2025 Bamboo flowsheet Jim Lombardi MD Work Phone: [facility] Start: 04-07-2025 End: 04-07-2025 Bamboo flowsheet Jim Lombardi MD Work Phone: [facility] Start: 04-07-2025 End: 04-07-2025 Office outpatient new 30 minutes Jim Lombardi MD Work Phone: [facility] Comment on above: Sensorineural hearin g loss (SNHL), bilateral (Primary Dx) Start: 04-07-2025 End: 04-07-2025 ambulatory [facility] Start: 04-06-2025 End: 04-06-2025 ambulatory [facility] Facility:[facility] Start: 03-30-2025 End: 03-30-2025 ambulatory [facility] Start: 03-24-2025 End: 03-24-2025 Clinical Support Deann Easley CCC-A Work Phone: [facility] Comment on above: Sensorineural hearin g loss (SNHL) of both ears (Primary Dx); Tinnitus, bilateral; Impaired auditory discrimination, bilateral Start: 03-24-2025 End: 03-24-2025 Bamboo flowsheet Deann Easley CCC-A Work Phone: [facility] Start: 03-24-2025 End: 03-24-2025 Jacque flowsheet Deann Easley CCC-A Work Phone: [facility] Start: 03-04-2025 End: 03-04-2025 ambulatory FACTORY MANAGER [place] [facility] Start: 02-24-2025 End: 02-24-2025 ambulatory RENEE SABILLON [facility] Start: 10-06-2024 End: 10-06-2024 ambulatory FACTORY MANAGER [place] [facility] Facility:[facility] Start: 09-09-2024 End: 09-09-2024 ambulatory [facility] Start: 08-04-2024 End: 08-04-2024 ambulatory FACTORY MANAGER [place] L Con Facility:[facility] Start: 07-30-2024 End: 07-30-2024 Patient encounter procedure Reginald Aragon MD Work Phone: Hematology/Oncology Start: 07-30-2024 End: 07-30-2024 ambulatory Reginald Aragon MD Work Phone: Hematology/Oncology Comment on above: Malignant neoplasm o f overlapping sites of right breast in female, estrogen receptor negative (HCC) (Primary Dx) Start: 05-20-2024 End: 05-20-2024 ambulatory [facility] Start: 05-06-2024 End: 05-06-2024 ambulatory [facility] Start: 05-05-2024 End: 05-05-2024 ambulatory [facility] Start: 09-12-2023 Telephone encounter Carin Salgado Hematology/Oncology Comment on above: Orders Start: 09-12-2023 End: 09-12-2023 ambulatory REGINALD ARAGON Facility:[facility] Start: 06-07-2023 Telephone encounter Orly Zhao RN [...] Start: 09-13-2022 End: 09-13-2022 ambulatory Samantha Benitez ADMITTING MANAGER.ONCOLOGY TECHNICIAN Work Phone: Hematology/Oncology Comment on above: Malignant neoplasm o f overlapping sites of right breast in female, estrogen receptor negative (HCC) (Primary Dx); Iron deficiency anemia secondary to inadequate dietary iron intake Start: 09-13-2022 End: 09-13-2022 Patient encounter procedure Samantha Benitez ADMITTING MANAGER.ONCOLOGY TECHNICIAN Work Phone: [facility] Start: 08-14-2022 End: 08-15-[address] CHARLES LANDEROS Facility:[facility] Start: 07-23-2022 End: 07-23-2022 ambulatory MITCHEL WARREN Facility:[facility] Start: 07-16-2022 Refill Samantha Benitez ADMITTING MANAGER.ONCOLOGY TECHNICIAN Work Phone: Hematology/Oncology Comment on above: [...] Evaluation and management of inpatient ARACELI SANDHU Facility:[facility] Start: 01-16-2019 End: 01-17-2019 Patient encounter procedure SHEMAR HUDSON Facility:[facility] Start: 12-03-2018 Patient encounter procedure Facility:[facility] Procedures Date Procedure Procedure Detail Performing Clinician Start: 07-08-2025 Follow-up visit Follow-up ROSA LYON Start: 03-24-2025 AUDITORY FUNCTION TESTS Deann Easley [facility] Work Phone: Start: 04-13-2022 Lipid 1996 panel - S migdalia or Plasma Carin Ramos RN Start: 08-17-2021 Ct thorax w/contrast material Reginald Aragon MD Work Phone: Start: 05-27-2020 Adult depression screening assessment Reginald Aragon MD Work Phone: Plan of Treatment Date Care Activity Detail Author Start: 07-30-2027 Diabetes Screening Diabetes Screenin [facility] Start: 04-13-2027 Lipid panel Lipid Screening [facility] Start: 04-13-2027 LIPID SCREEN LIPID SCREEN [facility] Start: 12-15-2026 LIPID SCREEN LIPID SCREEN [facility] Start: 09-12-2026 Diabetes Screening Diabetes Screenin [facility] Start: 05-06-2026 Tobacco Screening Tobacco Screening [facility] Start: 03-14-2026 DIABETES SCREEN [facility] Start: 09-13-2025 DIABETES SCREEN [facility]CREEN [facility] Start: 08-05-2025 End: 08-05-2025 Patient encounter procedure 08/05/2025 2:40 PM EST Office Visit [facility] [address] [place] [address] Emiliana Navarro, ADMITTING MANAGER-ONCOLOGY TECHNICIAN [address] [facility] [place] [address] N [facility] Start: 06-23-2025 End: 06-23-2025 Clinical Support 06/23/2025 1:00 PM EDT Clinical Support SHAYLEE [facility] [address] [place] [id number] Deann Easley, [facility] [address] [facility] [place] [address] Arrived [facility] Comment on above: Arrived Start: 05-31-2025 Influenza vaccination [facility] Start: 05-13-2025 End: 05-06-2026 ODILIA Screen w/ Reflex ODILIA Screen w/ Reflex Lab Routine Stage 3b chronic kidney disease (CKD) ([facility] Expected: 05/13/2025 (Approximate), Expires: 05/06/2026 [address] [facility] Work Phone: Comment on above: Expected: 05/13/2025 (Approximate), Expires: 05/06/2026 Start: 05-13-2025 End: 05-06-2026 Basic metabolic 2000 panel - Serum or Plasma Basic Metabolic Panel Lab Routine Stage 3b chronic kidney disease (CKD) ([facility] Expected: 05/13/2025 (Approximate), Expires: 05/06/2026 [facility] Comment on above: Expected: 05/13/2025 (Approximate), Expires: 05/06/2026 Start: 05-13-2025 End: 05-06-2026 Complement profile (C3 AND C4) Complement profile (C3 AND C4) Lab Routine Stage 3b chronic kidney disease (CKD) ([facility] Expected: 05/13/2025 (Approximate), Expires: 05/06/2026 [facility] Comment on above: Expected: 05/13/2025 (Approximate), Expires: 05/06/2026 Start: 05-13-2025 End: 05-06-2026 Free light chains Free light chains Lab Routine Stage 3b chronic kidney disease (CKD) ([facility] Expected: 05/13/2025 (Approximate), Expires: 05/06/2026 [facility] Comment on above: Expected: 05/13/2025 (Approximate), Expires: 05/06/2026 Start: 05-13-2025 End: 05-06-2026 Glomerular basement membrane IgG AB Glomerular basement membrane IgG AB Lab Routine Stage 3b chronic kidney disease (CKD) ([facility] Expected: 05/13/2025 (Approximate), Expires: 05/06/2026 [facility] Comment on above: Expected: 05/13/2025 (Approximate), Expires: 05/06/2026 Start: 05-13-2025 End: 05-06-2026 Myeloperoxidase AB Myeloperoxidase AB Lab Routine Stage 3b chronic kidney disease (CKD) ([facility] Expected: 05/13/2025 (Approximate), Expires: 05/06/2026 [facility] Comment on above: Expected: 05/13/2025 (Approximate), Expires: 05/06/2026 Start: 05-13-2025 End: 05-06-2026 Protein creat ratio Protein creat ratio Lab Routine Stage 3b chronic kidney disease (CKD) ([facility] Expected: 05/13/2025 (Approximate), Expires: 05/06/2026 [facility] Comment on above: Expected: 05/13/2025 (Approximate), Expires: 05/06/2026 Start: 05-13-2025 End: 05-06-2026 Protein electrophoresis, serum Protein electrophoresis, serum Lab Routine Stage 3b chronic kidney disease (CKD) ([facility] Expected: 05/13/2025 (Approximate), Expires: 05/06/2026 [facility] Comment on above: Expected: 05/13/2025 (Approximate), Expires: 05/06/2026 Start: 05-13-2025 End: 05-06-2026 Rheumatoid factor Rheumatoid factor Lab Routine Stage 3b chronic kidney disease (CKD) ([facility] Expected: 05/13/2025 (Approximate), Expires: 05/06/2026 [facility] Comment on above: Expected: 05/13/2025 (Approximate), Expires: 05/06/2026 Start: 04-07-2025 End: 04-07-2025 Patient encounter procedure 04/07/2025 2:00 PM EDT Office Visit [facility] [address] [place] [address] Jim Lombardi MD [address] [place] [address] Arrived [facility] Comment on above: Arrived Start: 03-31-2025 End: 03-31-2025 Patient encounter procedure 03/31/2025 1:10 PM EDT Office Visit [facility] [address] [place] [address] Jim Lombardi MD [address] [place] [address] [facility] Start: 03-24-2025 End: 03-24-2025 Clinical Support 03/24/2025 2:30 PM EDT Clinical Support [facility] [address] [place] [address] Deann Easley, [facility] [address] [place] [address] Arrived [facility] Comment on above: Arrived Start: 03-14-2025 DIABETES SCREEN [facility]CREEN [facility] Start: 12-22-2024 COVID-19 Vaccine (7 - Mixed Product risk season) COVID-19 Vaccine (7 - Mixed Product risk season) [facility] Start: 08-17-2024 DIABETES SCREEN DIABETES SCREEN [facility] Start: 07-30-2024 End: 07-30-2024 Follow-up encounter 07/30/2024 2:15 PM EDT Visit (SP) Office Hematology/Oncology [address] [place] [address] [place] [address] Reginald Aragon MD [address] [place] [address] [place] [address] 10 month follow up lab / [...] Ag 27-29 [Units/volume] in Serum or Plasma [facility] Work Phone: Comment on above: Expected: 07/30/2024 , Expires: 10/29/2024 Start: 07-30-2024 End: 07-30-2024 Patient encounter procedure 07/30/2024 2:00 PM EDT Office Visit [facility] [address] [place] [address] [place] [address] 10 month follow up lab / left detailed message about moving this appt from -. Asked her to call and confirm new day and time. Mailed new reminder to her home. [facility] Comment on above: 10 month follow up l ab / left detailed message about moving this appt from -. Asked her to call and confirm new day and time. Mailed new reminder to her home. Start: 05-31-2024 Covid-19 Vaccine ( season) Covid-19 Vaccine ( season) [facility] Start: 05-31-2024 Influenza vaccination Influenza Vacc ine (#1) [facility] Start: 09-30-2023 Advance Directive Discussion Advance Directive Discussion [facility] Start: 05-31-2023 Influenza vaccination INFLUENZA (#1) [facility] Start: 03-14-2023 End: 05-14-2023 Cancer Ag 27-29 [Units/volume] in Serum or Plasma CA 27.29 BLOOD Lab Routine Malignant neoplasm of overlapping sites of right breast in female, estrogen receptor negative (HCC) Iron deficiency anemia secondary to inadequate dietary iron intake Expected: 03/14/2023, Expires: 05/14/2023 [facility] Work Phone: Comment on above: Expected: 03/14/2023 , Expires: 05/14/2023 Start: 03-14-2023 End: 05-14-2023 CBC W Auto Differential panel - Blood CBC + DIFF Lab Routine Malignant neoplasm of overlapping sites of right breast in female, estrogen receptor negative (HCC) Iron deficiency anemia secondary to inadequate dietary iron intake Expected: 03/14/2023, Expires: 05/14/2023 [facility] Work Phone: Comment on above: Expected: 03/14/2023 , Expires: 05/14/2023 Start: 03-14-2023 End: 05-14-2023 Comprehensive metabolic 2000 panel - Serum or Plasma COMP METABOLIC PANEL Lab Routine Malignant neoplasm of overlapping sites of right breast in female, estrogen receptor negative (HCC) Iron deficiency anemia secondary to inadequate dietary iron intake Expected: 03/14/2023, Expires: 05/14/2023 [facility] Work Phone: Comment on above: Expected: 03/14/2023 , Expires: 05/14/2023 Start: 01-04-2023 RSV Vaccine (1 - 1-d ose 75+ series) RSV Vaccine (1 - 1-dose 75+ series) [facility] Start: 09-30-2022 ADVANCE DIRECTIVE DISCUSSION ADVANCE DIRECTIVE DISCUSSION [facility] Start: 09-30-2022 DEPRESSION ASSESSMENT DEPRESSION ASS ESSMENT [facility] Start: 09-13-2022 End: 11-13-2022 Cancer Ag 27-29 [Units/volume] in Serum or Plasma [facility] Work Phone: Comment on above: Expected: 09/13/2022 , Expires: 11/13/2022 Start: 07-03-2022 COVID-19 VACCINE (5 - Booster for Moderna series) COVID-19 VACCINE (5 - Booster for Moderna series) [facility] Start: 07-03-2022 COVID-19 VACCINE (5 - Moderna series) COVID-19 VACCINE (5 - Moderna series) [facility] Start: 05-31-2022 Influenza vaccination [facility] Start: 09-30-2021 ADVANCE DIRECTIVE DISCUSSION ADVANCE DIRECTIVE DISCUSSION [facility] Start: 09-30-2021 DEPRESSION ASSESSMENT DEPRESSION ASS ESSMENT [facility] Start: 05-27-2021 Adult depression screening assessment DEPRESSION SCREENING [facility] Start: 12-04-2015 Administration of varicella zoster vaccine Zoster (Shingles) Vaccine (1 of 2) [facility] Start: 12-04-2015 SHINGRIX VACCINE (1 of 2) SHINGRIX VACCINE (1 of 2) [facility] Start: 12-04-2015 SHINGRIX VACCINE (2 of 3) SHINGRIX VACCINE (2 of 3) [facility] Start: 01-04-2013 BONE DENSITY BONE DENSITY [facility] Start: 01-04-2013 Fall Risk Screening Fall Risk Screen ing [facility] Start: 01-04-2013 Screening for osteoporosis [...] Hospital Start: 01-04-[address] COLONOGRAPHY [facility] Start: 01-04-1993 FECAL OCCULT BLOOD FECAL OCCULT BLOO D [facility] Start: 01-04-1993 Screening for malign ant neoplasm of colon [facility] Start: 01-04-1993 SIGMOIDOSCOPY SIGMOIDOSCOPY [facility] Start: 1988 Mammography MAMMOGRAM [facility] Start: 01-04-1967 DTaP,Tdap and Td Vaccines (1 - Tdap) DTaP,Tdap and Td Vaccines (1 - Tdap) [facility] Start: 01-04-1967 Urine microalbumin profile [facility] Start: 01-04-1966 Anxiety Screening Anxiety Screening [facility] Start: 01-04-1966 Depression Screening Depression Scre ening [facility] Start: 01-04-1966 HEPATITIS C SCREENING HEPATITIS C [facility] Start: 01-04-1966 Hepatitis C screening Hepatitis C [facility] Start: 1960 Depression Screening Depression Scre ening [facility] Start: 1960 Tobacco Screening Tobacco Screening [facility] Start: 01-04-1953 COVID-19 VACCINE (#1) COVID-19 VACCI NE (#1) [facility] Start: 1948 COVID-19 VACCINE (#1) COVID-19 VACCI NE (#1) [facility] End: 05-06-2026 Cytoplasmic Neutrophilic Ab (ANCA), S Cytoplasmic Neutrophilic Ab (ANCA), S Lab Routine Stage 3b chronic kidney disease (CKD) ([facility] 1 Occurrences starting 05/06/2025 until 05/06/2026 [facility] [facility] Comment on above: 1 Occurrences starti ng 05/06/2025 until 05/06/2026 End: 04-13-2023 Diagnostic mammography computer-aided detcj uni RAMBO DIAGNOSTIC LT Radiology Routine Malignant neoplasm of overlapping sites of right breast in female, estrogen receptor negative (HCC) 1 Occurrences starting 03/14/2022 until 04/13/2023 [facility] Work Phone: Comment on above: 1 Occurrences starti ng 03/14/2022 until 04/13/2023 End: 07-06-2024 RAMBO DIAGNOSTIC LEFT RAMBO DIAGNOSTIC LEFT Radiology Routine Malignant neoplasm of overlapping sites of right breast in female, estrogen receptor negative (HCC) 1 Occurrences starting 06/07/2023 until 07/06/2024 [facility] Work Phone: Comment on above: 1 Occurrences starti ng 06/07/2023 until 07/06/2024 End: 05-06-2026 Serum Immunofixation Serum Immunofixation Lab Routine Stage 3b chronic kidney disease (CKD) [place] 1 Occurrences starting 05/06/2025 until 05/06/2026 [facility] Comment on above: 1 Occurrences starti ng 05/06/2025 until 05/06/2026 End: 05-06-2026 Urinalysis Urinalysis Lab Routine Stage 3b chronic kidney disease (CKD) [place] 1 Occurrences starting 05/06/2025 until 05/06/2026 [facility] Comment on above: 1 Occurrences starti ng 05/06/2025 until 05/06/2026 [facility] Immunizations Immunization Date Immunization Notes Care Provider Fa cility 06-24-2024 COVID-19 vaccine, ag e 12+ yr (MODERNA) Reginald Aragon MD Work Phone: [facility] 06-24-2024 influenza, high dose seasonal, preservative-free Reginald Aragon MD Work Phone: [facility] 06-24-2024 pneumococcal conjuga te (PCV20) vaccine, 20 valent (PREVNAR 20) Reginald Aragon MD Work Phone: [facility] 06-24-2024 respiratory syncytia l virus (RSV) vaccine, adjuvanted (AREXVY) Reginald Aargon MD Work Phone: [facility] 06-24-2024 influenza virus vacc ine, unspecified formulation Jim Lombardi MD Work Phone: [facility] 07-25-2023 COVID-19 vaccine, ag e 12+ yr (MODERNA) Reginald Aragon MD Work Phone: [facility] 07-25-2023 influenza (HD-IIV4) vaccine, age 65+ yr, high dose, quadrivalent, PF (FLUZONE HIGH-DOSE) Reginald Aragon MD Work Phone: [facility] 07-25-2023 influenza virus vacc ine, unspecified formulation [facility] Work Phone: [facility] 07-11-2022 influenza (HD-IIV4) vaccine, age 65+ yr, high dose, quadrivalent, PF (FLUZONE HIGH-DOSE) Reginald Aragon MD Work Phone: [facility] 05-08-2022 SARS-COV-2 (COVID-19 ) Vaccine, Unspecified Scanning External [facility] 08-07-2021 influenza (HD-IIV4) vaccine, age 65+ yr, high dose, quadrivalent, PF (FLUZONE HIGH-DOSE) Reginald Aragon MD Work Phone: [facility] 08-07-2021 SARS-COV-2 (COVID-19 ) Vaccine, Unspecified Scanning External [facility] 11-24-2020 COVID-19 original vaccine, full dose, monovalent (MODERNA) Reginald Aragon MD Work Phone: [facility] 10-27-2020 COVID-19 original vaccine, full dose, monovalent (MODERNA) Reginald Aragon MD Work Phone: [facility] 07-07-2020 influenza (aIIV4) vaccine, age 65+ yr, quadrivalent, PF (FLUAD QUAD) Reginald Aragon MD Work Phone: [facility] 07-21-2019 influenza, high dose seasonal, preservative-free Reginald Aragon MD Work Phone: [facility] 07-21-2019 pneumococcal polysaccharide vaccine, 23 valent Reginald Aragon MD Work Phone: [facility] 06-26-2018 influenza, high dose seasonal, preservative-free Reginald Aragon MD Work Phone: [facility] 06-26-2018 pneumococcal conjuga te vaccine, 13 valent Reginald Aragon MD Work Phone: [facility] 07-17-2017 influenza, high dose seasonal, preservative-free Reginald Aragon MD Work Phone: [facility] 07-01-2017 influenza, injectabl e, quadrivalent, preservative free Reginald Aragon MD Work Phone: [facility] 10-09-2015 zoster vaccine, live Reginald roche MD Work Phone: [facility] 10-09-2015 zoster vaccine, unspecified formulation [facility] 07-11-2015 influenza, seasonal, injectable, preservative free Reginald Aragon MD Work Phone: [facility] 07-11-2015 pneumococcal conjuga te vaccine, 13 valent Reginald Aragon MD Work Phone: [facility] Payers Date Payer Category Payer Self-pay 2018 Medicaid MEDICAID [facility] MEDICAID [id number] 2018-Present [phone] [place] [address] Medicaid [id number] 2017 Medicaid [id number] 1988 Medicare MEDICARE MEDICAR E A AND B [id number] 1988-Present [phone] [address] [address] [place] [address] Medicare [id number] 1988 Medicare [id number] 1959 Medicaid [id number] 1959 Medicare [id number] 1959 Self-pay [id number] 1948 Unknown [id number] [id number]6 1948 Unknown [id number] 2.16.840.1.749275.3.579.2.647 1948 Unknown [id number] 2.16.840.1.216540.3.579.2.647 1948 Unknown [id number] 2.16.840.1.144320.3.579.2.593 1948 Unknown [id number] 2.16.840.1.689143.3.579.2.593 1948 Unknown [id number] 2.16.840.1.123634.3.579.2.593 1948 Unknown [id number] 2.16.840.1.908687.3.579.2.593 1948 Unknown [id number] 2.16.840.1.738132.3.579.2.727 1948 Unknown [id number] 2.16.840.1.889428.3.579.2.727 1948 Unknown [id number] 2.16.840.1.357295.3.579.2.727 1948 Unknown [id number] 2.16.840.1.100349.3.579.2.727 1948 Unknown [id number] 2.16.840.1.913528.3.579.2.727 1948 Unknown [id number] 2.16.840.1.461194.3.579.2.727 1948 Unknown [id number] 2.16.840.1.808284.3.579.2.1286 1948 Unknown [id number] 2.16.840.1.038301.3.579.2.1286 1948 Unknown [id number] 2.16.840.1.496034.3.579.2.1286 1948 Unknown [id number] 2.840.1.039863.3.579.2.1286 1948 Unknown [id number] 2.16.840.1.948980.3.579.2.1286 1948 Unknown [id number] 2.840.1.792501.3.579.2.1259 1948 Unknown [id number] 2.16840.1.868459.3.579.2.1259 1948 Unknown [id number] 2.840.1.274542.3.579.2.1259 Unknown [id number] 2.840.1.593598.3.579.2.531 Social History Date Type Detail Facility Start: 03-18-2019 End: 02-06-2024 Tobacco smoking status NHIS Never smoked tobacco [facility] Start: 03-18-2019 End: 02-06-2024 Tobacco use and exposure Smokeless tobacco non-user [facility] Start: 03-14-2022 End: 04-07-2025 Alcohol intake Lifetime non-drinker (finding) [facility] Start: 01-21-2020 History SDOH Alcohol Frequency 1 [facility] Start: 1950 Sex Assigned At Not on file [facility] Start: 07-18-2021 End: 03-14-2022 Exposure to SARS-CoV-2 (event) Not sure [facility] Start: 01-21-2020 End: 04-07-2025 History of Social function [facility] Start: 01-21-2020 End: 04-07-2025 Alcohol Use Disorder Identification Test - Consumption [AUDIT-C] [facility] How often to you hav e a drink containing alcohol? Never [facility] Average Number of Drinks Not on file [facility] Start: 05-05-2015 Sex Female (finding) [facility] NEGATED: Highlighted rowStart: NINF History of tobacco use Passive smoker [facility] Medical Equipment Procedure Code Equipment Code Equipment Origin al Text Equipment Identifier Dates Lens Iol Ultrase rt 23.0d - [id number] - [id number] Start: 06-28-2022 Lens Iol Ultrase rt 23.5d - [id number] - [id number] Start: 11-01-2022 Clinical Notes 08-17-2021 to 07-08-2025 Telephone Encounter - STEPHANIE Quiñones - 07/08/2025 6:44 PM EDTTelephone Encounter - STEPHANIE Quiñones - 07/08/2025 6:44 PM EDTSTEPHANIE Quiñones - 06/23/2025 1:00 PM EDT Note Date & Type Note Facility 07-08-2025 Telephone encounter Note Pt approved for hearing aids. Ordered aids - pt needs appointment for fitting. Will take 2-3 weeks to get custom aids. Called and left VM to call us back to schedule [facility] Work Phone: 07-08-2025 Miscellaneous Notes Pt approved for hearing aids. Ordered aids - pt needs appointment for fitting. Will take 2-3 weeks to get custom aids. Called and left VM to call us back to schedule documented in this encounter [facility] 06-23-2025 History of Present illness Narrative Hearing Aid Discussion: Pt has bilateral sensorineural hearing loss and is a good candidate for hearing aids. Pt had BTE aids years ago and broke the aids because they were too difficult for her to handle. Her staff members pt try custom aids and pt agreed. Ear impressions taken of both ears without incident. Will obtain medical clearance for hearing aids from Dr. Lombardi. Will then request prior authorization for hearing aids from Medicaid. Told pt and her caregiver that the process may take 6-8 weeks documented in this encounter [facility] 05-11-2025 Note [facility] Consult Note Reason [...] as well as Martir SEPULVEDA. Shelmith Witherell, ONCOLOGY TECHNICIAN increased lasix to 40mg in the AM [...] GERD (gastroesophageal reflux disease) Hypertension Myocardial infarct ([facility]/HCC) Obesity BMI 40.45 PSH: Past Surgical History: Procedure Laterality Date CARDIAC CATHETERIZATION 01/16/2019 SH: [employer] D[employer] of Health Tobacco Use: Low Risk (05/11/2025) Patient History Smoking Tobacco Use: Never Smokeless Tobacco Use: Never Passive Exposure: Not on file Alcohol Use: Not At Risk (01/21/2020) Received from [facility] AUDIT-C Frequency of Alcohol Consumption: Never [...] Depression: Not at risk (07/30/2024) Received from [facility] PHQ-2 PHQ-2 score: 0 Housing Stability: Not on file Utilities: Not on file Health Literacy: Not on file Allergies: Allergies Allergen Reactions Peanut Anaphylaxis Bacitracin Bromelains Clarithromycin Other and Unknown Conjugated Estrogens Unknown Estrogens, Conjugated Flavoring Agent Unknown Other Reaction(s): Unknown Neomycin Sulfate Paclitaxel Other Numbness,tingling and elevated blood pressure Pineapple Polymyxin B Shrimp All seafood Sulfa (Sulfonamide Antibiotics) Other and Unknown Tjftzcgx-Dlzdtrehox-Eaokfodwt Rash Penicillins Rash Weight: 118kg Visit Vitals [...] 3 loratadine (Claritin) (more content not included)... [facility] 05-06-2025 History of Present illness Narrative [...] fraction 55-60% cardiac echo 03/17/2025. This showed eopfojoc-fz-wnhfst biatrial dilatation moderate tricuspid regurgitation and moderately elevated right-sided filling pressures Atherosclerotic coronary artery disease status post cardiac catheterization December 2018 which showed nonobstructive coronary. Artery disease Surgical, Family & Social History Surgical History: Past Surgical History: Procedure Laterality Date BREAST BIOPSY CARDIAC CATHETERIZATION EXTRACTION CATARACT INTRAOCULAR LENS Right 11/01/2022 Performed by Rosa Elena Lewis MD at [facility] EXTRACTION CATARACT INTRAOCULAR LENS Left 06/28/2022 Performed by Rosa Elena Lewis MD at [facility] Right Social History: Social History [...] Interpersonal Safety: Unknown (11/21/2023) Received from [facility] Safety & Environment Fear of Current or [...] seafood Sulfa (Sulfonamide Antibiotics) Other (See Comments) Azegghpo-Wilhaprcmp-Pqwjiwvfw Rash Penicillins Rash Current Meds: Current Outpatient [...] Anemia Studies: Lab Results Component Value Date [id number] 405 05/10/2023 FOLATE >25.0 05/10/2023 Mineral and [...] of your patients! Please contact me at [phone] (Office) or [phone] (Answering service) with any questions. PEMA REYNOLDS MD [facility] This note was created with the assistance of a speech-recognition program. Although the intention is to generate a document that actually reflects the content of the visit, no guarantees can be provided that every mistake has been identified and corrected by editing. PEMA REYNOLDS MD,PhD FACP [facility] ANY QUESTIONS FEEL FREE TO CALL: 1. OFFICE [phone] 2. ANSWERING SERVICE: [phone] [facility] 04-29-2025 Miscellaneous Notes LM to schedule new pt appt. documented in this encounter [facility] 04-29-2025 Telephone encounter Note LM to schedule new pt appt. [facility] 04-22-2025 Note Patient is here toda [...] swelling. Respiratory: Positive for shortness of breath. [facility] 04-22-2025 Note Cardiovascular Medic ine [facility] SUBJECTIVE Kaylie Salomon is a 75 y.o. female here for follow-up. HPI PMHx: HFpEF, persistent a.fib, asthma, nonobstructive CAD, GERD, hypertension, MRDD, depression, breast Ca with radiation theray 2018 or 2019 04/22/2025 Since last seen, her [...] eyes Allergic rhinit (more content not included)... [facility] 04-07-2025 History of Present illness Narrative [...] Noted Altered mental status, unspecified 02/10/2024 Psychosis (HCC) 02/10/2024 Hallucination 02/10/2024 Acute hypoxemic respiratory failure (HCC) 01/09/2019 Acute severe refractory exacerbation of asthma (HCC) 01/09/2019 Allergic conjunctivitis of both eyes 03/30/2025 Allergic rhinitis due to allergen 03/30/2025 Asthma (HCC) 03/22/2023 Paroxysmal A-fib (HCC) 12/08/2021 BMI 38.0-38.9,adult 03/30/2025 Carcinoma of lower-outer quadrant of right breast in female, estrogen receptor negative (HCC) 05/07/2019 Chronic heart failure with preserved ejection fraction (HCC) 06/18/2023 Chronic respiratory failure (HCC) 09/17/2023 Electrolyte and fluid disorder 09/17/2023 Gastroesophageal [...] 09/17/2023 Sinusitis 03/22/2023 Type 1 diabetes mellitus ([facility]) 01/09/2019 Vitamin D deficiency 03/30/2025 Resolved Ambulatory Problems Diagnosis Date Noted No Resolved Ambulatory Problems Past Medical History: Diagnosis Date Breast cancer (HCC) Diabetes ([facility]) Past Surgical History: Procedure Laterality Date CT [...] camille hearing aids. documented in this encounter [facility] 03-30-2025 Note Cardiovascular Medic [facility] SUBJECTIVE Kaylie Salomon is a 75 [...] negative (CMS/HCC) Atrial fibrillation status post cardioversion ([facility]/HCC) Sinusitis Type 1 diabetes mellitus (CMS/HCC) Chronic heart failure with preserved ejection fraction (CMS/HCC) Chronic respiratory failure (CMS/HCC) Electrolyte and fluid disorder long term acute care registered nurse 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 steroid Morbid obesity (CMS/HCC) Severe persistent asthma (CMS/HCC) Paroxysmal A-fib (CMS/HCC) Altered mental status, unspecified Hallucination Psychosis (CMS/HCC) Allergic conjunctivitis of both eyes Allergic rhinitis due to allergen BMI 38.0-38.9,adult Mental disability Mild intermittent asthma without complication Peripheral eosinophilia Vitamin D deficiency Past Medical History: Diagnosis Date Abnormal ECG Arrhythmia Asthma Atrial fibrillation (CMS/HCC) Breast cancer ([facility]/HCC) RADIATION 2017 / 2018 Coronary artery disease Depression Diabetes ([facility]) GE (more content not included)... [facility] 03-30-2025 Note Patient is here toda y for a 6 week follow up with ECHO. Patient's caregiver states the patient is SOB, leg swelling, BOSCH, major fatigue and weight gain. Patient denies chest pain, or dizziness. Review of Systems Constitutional: Positive for malaise/fatigue and weight gain. Cardiovascular: Positive for dyspnea on exertion and leg swelling. Respiratory: Positive for shortness of breath. [facility] 03-24-2025 History of Present illness Narrative [...] pt when communicating. documented in this encounter [facility] 03-04-2025 Note Patient Education Caregiving Fall Prevention [...] Keep items that you use often in puux-pa-qotpg places. Lower the shelves around your home [...] the way. ??? Do not use floor macanese or wax that makes floors slippery. What [...] Control and Prevention, [place]: cdc.gov ??? National [place] on Aging: margarette.nih.gov ??? National [place] on Aging: margarette.nih.gov Contact a doctor if: [...] away. ??? Do (more content not included)... [facility] 02-24-2025 Note SUBJECTIVE Reason for Visit: Kaylie [...] and high-sugar foods, including frequent consumption of Romansh takeout, weekly cake, and salty soups. The [...] Arrhythmia Asthma Atrial fibrillation (CMS/HCC) Breast cancer ([facility]/HCC) RADIATION 2017 Coronary artery disease Depression Diabetes (CMS/HCC) GERD (gastroesophageal reflux disease) Hypertension Myocardial infarct ([facility]/HCC) Obesity BMI 40.45 Past Surgical History: Procedure Laterality Date CARDIAC CATHETERIZATION 01/16/2019 Patient Active Problem List Diagnosis Acute hypoxemic respiratory failure ([facility]/HCC) Acute severe refractory exacerbation of asthma ([facility]/HCC) History of ST elevation myocardial infarction (STEMI) Gastroesophageal reflux disease Hypertensive disorder Asthma Iron deficiency anemia secondary to inadequate dietary iron intake Carcinoma of lower-outer quadrant of right breast in female, estrogen receptor negative ([facility]/HCC) Atrial fibrillation status post cardioversion ([facility]/HCC) Sinusitis Type 1 diabetes mellitus ([facility]/HCC) Chronic heart failure with preserved ejection fraction ([facility]/HCC) Chronic respiratory failure ([facility]/HCC) Electrolyte and fluid disorder long term acute care registered nurse 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 steroid Morbid obesity ([facility]/HCC) Severe persistent asthma ([facility]/HCC) Paroxysmal A-fib ([facility]/HCC) Altered mental status, unspecified Hallucination Psychosis ([facility]/HCC) family history includes Heart failure in her [...] Inspection and Palp (more content not included)... [facility] 09-09-2024 Note Patient here for 3 [...] All other systems reviewed and are negative. [facility] 09-09-2024 Note Cardiovascular Medic [facility] SUBJECTIVE Kaylie Salomon is a 74 [...] negative (CMS/HCC) Atrial fibrillation status post cardioversion ([facility]/HCC) Sinusitis Type 1 diabetes mellitus (CMS/HCC) Chronic heart failure with preserved ejection fraction ([facility]/HCC) Chronic respiratory failure ([facility]/HCC) Electrolyte and fluid disorder halfway 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 steroid Morbid obesity ([facility]/HCC) Severe persistent asthma Paroxysmal A-fib (CMS/HCC) Altered mental status, unspecified Hallucination Psychosis ([facility]/HCC) Past Medical History: Diagnosis Date Abnormal ECG Arrhythmia Asthma Atrial fibrillation (CMS/HCC) Breast cancer ([facility]/HCC) RADIATION 2017 Coronary artery disease Depression Diabetes ([facility]/HCC) GERD (gastroesophageal reflux disease) Hypertension Myocardial infarct ([facility]/HCC) Obesity BMI 40.45 Family History Problem [...] seafood Sulfa (Sulfonamide Antibiotics) Other and Unknown Rjkfjmzc-Mxvcgltxvh-Pmmvstlvd Rash Penicillins Rash ROS Constitutional: Positive for weight loss (9# since 06/25/2024). Cardiovascular: Positive for dyspnea on exertion ( (more content not included)... [facility] 07-29-2024 Note HNO ID: [id number] Author: REGINALD ARAGON MD Service: ? Author Type: Physician Type: Progress Notes Filed: 07/31/2024 06:27 Note Text: PATIENT NAME: Kaylie Salomon DATE: 07/30/2024 PRIMARY CARE PHYSICIAN: Dr. Landeros OTHER PHYSICIANS: Dr. Ramon Smith, [facility] XRT, Dr. Brian Gil (Cardiology [facility]) Portions of this encounter note have been [...] and CHF. She is currently managed by [facility] cardiology (Dr. Gil). Otherwise she has had [...] on 03/14/2023) ALLERGIES: Clarithromycin, Conjugated Estrogens, Neosporin [Mktqxqpm-Utyfktcxcp-Ipvwlbhcp], Paclitaxel, Peanut, Penicillins, and Sulfa (Sulfonamide Antibiotics) PAST MEDICAL HISTORY: PAST MEDICAL HISTORY Diagnosis Date AF (atrial fibrillation) ([facility]) Asthma Breast cancer ([facility]) 02/[address] Landeros COPD (chronic obstructive pulmonary disease) ([facility]) Edema Hyperlipidemia Hypertension OA (osteoarthritis of spine) [...] frequency or incontinence. (more content not included)... [facility] 07-29-2024 History of Present illness Narrative PATIENT NAME: Kaylie Salomon DATE: 07/30/2024 PRIMARY CARE PHYSICIAN: Dr. Landeros OTHER PHYSICIANS: Dr. Ramon Smith, [facility] FERRARO, Dr. Brian Gil (Cardiology [facility]) Portions of this encounter note have been [...] and CHF. She is currently managed by [facility] [facility]ology (Dr. Gil). Otherwise she has had [...] on 03/14/2023) ALLERGIES: Clarithromycin, Conjugated Estrogens, Neosporin [Faxijfrb-Igbjqhiyfz-Qfrazaedg], Paclitaxel, Peanut, Penicillins, and Sulfa (Sulfonamide Antibiotics) PAST MEDICAL HISTORY: PAST MEDICAL HISTORY Diagnosis Date AF (atrial fibrillation) ([facility]) Asthma Breast cancer ([facility]) 02/[address] 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 Author Type: Physician Type: Progress Notes Filed: 09/12/2023 7:56 PM Note Text: PATIENT NAME: Kaylie Salomon DATE: 09/12/2023 PRIMARY CARE PHYSICIAN: Dr. Landeros OTHER PHYSICIANS: Dr. Ramon Smith, [facility] X[facility] Portions of this encounter note [...] on 03/14/2023) ALLERGIES: Clarithromycin, Conjugated Estrogens, Neosporin [Wkpzlzop-Cdhyvvhkir-Oyxqqmlmr], Paclitaxel, Peanut, Penicillins, and Sulfa (Sulfonamide Antibiotics) PAST MEDICAL HISTORY: PAST MEDICAL HISTORY Diagnosis Date AF (atrial fibrillation) ([facility]) Asthma Breast cancer (HCC) 02/[address] Landeros COPD (chronic obstructive pulmonary disease) ([facility]) Edema Hyperlipidemia Hypertension OA (osteoarthritis of spine) [...] 167.7 cm (5' (more content not included)... [facility] 06-10-2023 Miscellaneous Notes Spoke to day care home provider. She has not heard from anyone regarding scheduling of Mammogram at [place]. Order faxed to [facility] scheduling. She is aware to call if [...] pending order. PSS: Pt needs scheduled at [facility]. Thanks! Orly Fraga RN documented in this encounter [place] Chary Cornelius RN documented in this encounter [facility] 03-14-2023 History of Present illness Narrative [...] once daily. ALLERGIES: Clarithromycin, Conjugated Estrogens, Neosporin [Ueoxinqi-Tcqashtnhw-Jukhudqib], Paclitaxel, Peanut, Penicillins, and Sulfa (Sulfonamide Antibiotics) PAST MEDICAL HISTORY: PAST MEDICAL HISTORY Diagnosis Date AF (atrial fibrillation) ([facility]) Asthma Breast cancer ([facility]) 02/[address] 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 I will see [...] once daily. ALLERGIES: Clarithromycin, Conjugated Estrogens, Neosporin [Yigpwskq-Mluipdbugk-Mdnbboywc], Paclitaxel, Peanut, Penicillins, and Sulfa (Sulfonamide Antibiotics) PAST MEDICAL HISTORY: PAST MEDICAL HISTORY Diagnosis Date AF (atrial fibrillation) (HCC) Asthma Breast cancer (HCC) 02/[address] Landeros COPD (chronic obstructive pulmonary disease) ([facility]) Edema Hyperlipidemia Hypertension OA (osteoarthritis of spine) [...] STUDIES: 06/14/2022 Left Diagnostic Mammogram ([facility]) Findings: Diagnostic category 2-benign finding: Left breast: No significant suspicious finding. Scattered benign-appearing nodules are present. No significant change has occurred. 08/17/2021 CT CHEST IMPRESSION: 1. Stable posttreatment changes, as described above. 2. Stable appearance of left lower lobe 5 mm nodule. No new or enlarging nodules are seen. 3. No evidence of bulky intrathoracic lymphadenopathy. 06/13/2021 Left Diagnostic Mammogram ([facility]) No significant suspicious finding. 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 ALLERGIES: Clarithromycin, Conjugated Estrogens, Neosporin [Tmsffxuz-Whgaqanatv-Pvwcuolfk], Paclitaxel, Peanut, Penicillins, and Sulfa (Sulfonamide Antibiotics) PAST MEDICAL HISTORY: PAST MEDICAL HISTORY Diagnosis Date AF (atrial fibrillation) ([facility]) Asthma Breast cancer (HCC) 02/[address] Landeros COPD (chronic obstructive pulmonary disease) ([facility]) Edema Hyperlipidemia Hypertension OA (osteoarthritis of spine) [...] bulky intrathoracic lymphadenopathy. 06/13/2021 Left Diagnostic Mammogram ([facility]) No significant suspicious finding. 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 of the [...] this encounter [facility] 08-17-2021 History of Present illness Narrative [...] 2021 10:20 AM documented in this encounter [facility] 08-17-2021 Nurse Note Radiology Service Progress [...] DATE: August 17, 2021 TIME: 9:26 AM [facility] 08-17-2021 Nurse Note Radiology Service [...] TIME: 9:26 AM documented in this encounter [facility] Evaluation note Diagnosis Malignant neoplasm of overlapping sites of right breast in female, estrogen receptor negative (HCC)- Primary Other iron deficiency anemia [facility] Malignant neoplasm of overlapping sites of right breast in female, estrogen receptor negative (HCC)- Primary Iron deficiency anemia secondary to inadequate dietary iron intake [facility] Diagnosis Malignant neoplasm of overlapping sites of right breast in female, estrogen receptor negative (HCC)- Primary History of iron deficiency Personal history of diseases of blood and blood-forming organs [facility] Diagnosis Malignant neoplasm of overlapping sites of right breast in female, estrogen receptor negative (HCC)- Primary [facility] Diagnosis Malignant neoplasm of overlapping sites of right breast in female, estrogen receptor negative (HCC)- Primary Hx of total mastectomy of right breast Personal history of surgery to other organs [facility] Diagnosis Lung nodules Other nonspecific abnormal finding of lung field [facility] Diagnosis Malignant neoplasm of overlapping sites of right breast in female, estrogen receptor negative (HCC)- Primary [facility] Diagnosis Sensorineural hearing loss (SNHL) of both ears- Primary Tinnitus, bilateral Unspecified tinnitus Impaired auditory discrimination, bilateral [facility] Diagnosis Sensorineural hearing loss (SNHL), bilateral- Primary documented in this encounter [facility]* Diagnosis Stage 3b chronic kidney disease (CKD) ([facility])- Primary CKD (chronic kidney disease), stage IV (CMS-HCC) Chronic kidney disease, Stage IV (severe) documented in this encounter [facility]* Diagnosis Sensorineural hearing loss (SNHL) of both ears- Primary documented in this encounter [facility] HealthcareInstructionsNot on filedocumented in this encounter[facility] SystemInstructionsNot on filedocumented in this encounterProOhiohealth Berger HospitalReason for referral (narrative)* Diagnostic Procedure Only (Routine) - Pending Review Specialty Diagnoses / Procedures Referred By Teenaac t Referred To Contact [facility] Diagnoses Malignant neoplasm of overlapping sites of right breast in female, estrogen receptor negative (HCC) Procedures [facility] DI[facility]NOSTIC LT DIAGNOSTIC MAMMOGRAPHY COMPUTER-AIDED DETCJ Reginald Casas MD [address] [place] [address] [place] [address] Referral ID Status Reason Start Date Expiration Date Visits Requested Visits Authorized [id number] Pending Review Auto-Generat ed Referral 03/14/2022 04/13/2023 1 1 [facility] for referral (narrative)* Diagnostic Procedure Only (Routine) - Pending Review Specialty Diagnoses / Procedures Referred By Ambrose thomas Referred To Contact [facility] Diagnoses Malignant neoplasm of overlapping sites of right breast in female, estrogen receptor negative (HCC) Procedures [facility] DI[facility] LEFT DIAGNOSTIC MAMMOGRAPHY COMPUTER-AIDED DETCJ Shayy Villatoro PA-C [address] [place] [address] [employer] [phone] [place] [address] Referral ID Status Reason Start Date Expiration Date Visits Requested Visits Authorized [id number] Pending Review Auto-Generat ed Referral 06/07/2023 07/06/2024 1 1 [facility] for visit Narrative* Consultation (Routine) - Pending Review Specialty Diagnoses / Procedures Referred By Ambrose thomas Referred To Contact Nephrology Diagnoses CKD (chronic kidney disease), stage IV ([facility]) Rosa Lyon APRN-ONCOLOGY TECHNICIAN [address] [place] [address] Phone: tel: fax: PHN [facility] [address] [place] [address] Phone: tel: fax: Referral ID Status Reason Start Date Expiration Date Visits Requested Visits Authorized [id number] Pending Review Specialty Services Required 04/29/2025 04/29/2026 1 1 [employer] [facility] Summary Purpose Family History No Family [...] Records Found Hospital Course Note MR#: [id number] [facility] Pt. Name: Kaylie Salomon Admitted: 01/31/2019 Discharged: 02/02/2019 Date of : 1950 Physician: Tramaine Sandhu MD DISCHARGE SUMMARY PRIMARY CARE PHYSICIAN: No PCP. CONSULTING SERVICE: None. ADMITTING DIAGNOSES: 1. Mcdci-eh-hbrcngs hypercapnic hypoxic respiratory failure. 2. Atrial fibrillation with rapid ventricular response. 3. Moderate persistent asthma with exacerbation. 4. Productive cough. DISCHARGE DIAGNOSES: 1. Ucejk-jx-dpesyco hypoxemic/hypercapnic respiratory failure. 2. Moderate persistent asthma [...] BREAST PROSTHESIS, MASTECTOMY BRA Reginald Aragon MD [address] [place] [address] [place] [address] Referral ID Status Reason Start Date Expiration Date V isits Requested Visits Authorized [id number] Closed Auto-Generate d Referral 09/12/2023 09/12/2024 1 1 Additional Source Comments INFORMATION SOURCE (unrecogn ized section and content) DATE CREATED AUTHOR 12/05/2018 [facility] DATE CREATED AUTHOR AUTHOR'S ORGANIZ ATION 05/13/2019 [facility] DATE CREATED AUTHOR AUTHOR'S ORGANIZ ATION 09/21/2022 [facility] DATE CREATED AUTHOR AUTHOR'S ORGANIZ ATION 08/01/2024 [facility] DATE CREATED AUTHOR AUTHOR'S ORGANIZ ATION 04/09/2025 [facility] DATE CREATED AUTHOR AUTHOR'S ORGANIZ ATION 04/29/2025 [facility] DATE CREATED AUTHOR AUTHOR'S ORGANIZ ATION 06/06/2025 [facility] DATE CREATED AUTHOR AUTHOR'S ORGANIZ ATION 06/12/2025 [facility] DATE CREATED AUTHOR AUTHOR'S ORGANIZ ATION 06/24/2025 [facility] dical Specialists [facility] DATE CREATED AUTHOR AUTHOR'S ORGANIZ ATION 07/10/2025 [facility] Source Comments (unrecognize d section and content) [...] CT Reason Comments Hearing Loss Audio 03/24/25 Reason Onset Date Comments Schedule Fitting 07/08/2025 Care Teams (unrecognized sec tion and content) Housing Director Relationship Specialty Start Date End Date Charles Landeros MD [address] [place] [address] PCP - General Family Practice 03/11/19 Samantha Benitez, ADMITTING MANAGER.ONCOLOGY TECHNICIAN [address] [place] [address] Physician Manager Private Hematology/Oncology 04/27/19 Reginald Aragon MD [address] [place] [address] Physician Hematology/Oncology 12/07/19 Housing Director Relationship Specialty Start Date End Date Charles Landeros MD [address] [facility] [address] PCP - General Family Medicine 03/11/19 Samantha Benitez, ADMITTING MANAGER.ONCOLOGY TECHNICIAN [address] [place] [address] Physician Manager Private Hematology/Oncology 04/27/19 Reginald Aragon MD [address] [place] [address] Physician Hematology/Oncology 12/07/19 Housing Director Relationship Specialty Start Date End Date Charles Landeros MD [address] [place] [address] PCP - General Family Medicine 03/11/19 Samantha Benitez, ADMITTING MANAGER.ONCOLOGY TECHNICIAN [address] [place] [address] Physician Manager Private Hematology/Oncology 04/27/19 Reginald Aragon MD [address] [place] [address] Physician Hematology/Oncology 12/07/19 Housing Director Relationship Specialty Start Date End Date Charles Landeros MD [address] [place] [address] PCP - General Family Medicine 03/11/19 Samantha Benitez, ADMITTING MANAGER.ONCOLOGY TECHNICIAN [address] [place] [address] Physician Manager Private Hematology/Oncology 04/27/19 Reginald Aragon MD [address] [place] [address] Physician Hematology/Oncology 12/07/19 Housing Director Relationship Specialty Start Date End Date Charles Landeros MD [address] [place] [address] PCP - General Family Medicine 03/11/19 Samantha Benitez, ADMITTING MANAGER.ONCOLOGY TECHNICIAN [address] [place] [address] Physician Manager Private Hematology/Oncology 04/27/19 Reginald Aragon MD [address] [place] [address] Physician Hematology/Oncology 12/07/19 Housing Director Relationship Specialty Start Date End Date Charles Landeros MD [address] [place] [address] PCP - General Family Medicine 03/11/19 Samantha Benitez, ADMITTING MANAGER.ONCOLOGY TECHNICIAN [address] [place] [address] [place] [address] Physician Manager Private Hematology/Oncology 04/27/19 Reginald Aragon MD [address] [place] [address] [place] [address] Physician Hematology/Oncology 12/07/19 Housing Director Relationship Specialty Start Date End Date Charles Landeros MD [address] [place] [address] PCP - General Family Medicine 03/11/19 Samantha Benitez, ADMITTING MANAGER.ONCOLOGY TECHNICIAN [address] [place] [address] Physician Manager Private Hematology/Oncology 04/27/19 Reginald Aragon MD [address] [place] [address] Physician Hematology/Oncology 12/07/19 Housing Director Relationship Specialty Start Date End Date Charles Landeros MD [address] [place] [address] PCP - General Family Medicine 03/11/19 Samantha Benitez, ADMITTING MANAGER.ONCOLOGY TECHNICIAN [address] [place] [address] Physician Manager Private Hematology/Oncology 04/27/19 Reginald Aragon MD [address] [place] [address] Physician Hematology/Oncology 12/07/19 Housing Director Relationship Specialty Start Date End Date Charles Landeros MD [address] [place] [id number] PCP - General Family Medicine 03/11/19 Samantha Benitez, ADMITTING MANAGER.ONCOLOGY TECHNICIAN [address] [place] [address] Physician Manager Private Hematology/Oncology 04/27/19 Reginald Aragon MD [address] [place] [address] Physician Hematology/Oncology 12/07/19 Housing Director Relationship Specialty Start Date End Date Ishan Reyez MD [address] [place] [address] PCP - General Family Medicine 12/22/24 Oh Kaufman NP [address] [place] [address] Referring Physician Family Medicine 02/11/24 Housing Director Relationship Specialty Start Date End Date Ishan Reyez MD [address] [place] [address] PCP - General Family Medicine 12/22/24 Oh Kaufman NP [address] [place] [address] Referring Physician Family Medicine 02/11/24 Housing Director Relationship Specialty Start Date End Date Ishan Reyez MD [address] [place] [address] PCP - General Family Medicine 12/22/24 Oh Kaufman NP [address] [place] [address] Referring Physician Family Medicine 02/11/24 Housing Director Relationship Specialty Start Date End Date Ishan Reyez MD [address] [place] [address] PCP - General Family Medicine 12/22/24 Oh Kaufman NP [address] [place] [address] Referring Physician Family Medicine 02/11/24 Housing Director Relationship Specialty Start Date End Date Oh Kaufman APRN-ONCOLOGY TECHNICIAN [address] [place] [address] PCP - General Nurse Practitioner 11/27/23 Housing Director Relationship Specialty Start Date End Date Oh Kaufman APRN-ONCOLOGY TECHNICIAN [address] [place] [address] PCP - General Nurse Practitioner 11/27/23 Housing Director Relationship Specialty Start Date End Date Ishan Reyez MD [address] [place] [address] [phone] PCP - General Family Medicine 12/22/24 Oh Kaufman NP [address] [place] [address] [phone] Referring Physician Family Medicine 02/11/24 FOR RECORDS PERTAINING TO PATIENTS WHO ARE [...] BE BASED ON THE PRIMARY CLINICAL RECORDS. [employer] [facility]. provides no warranty or guarantee of the accuracy or completeness of information in this document.
--- NOTE | 2025-07-13 11:15 | MM_ITS ---
Patient Name: RUBI SALOMON MR#: [id number] : 1950 Exam Date: 07/13/2025 Ordering Doctor: OH ANDUJAR . RADIOLOGY REPORT PROCEDURE: MM TOMOSYNTHESIS SCREENING LT COMPARISON: MM TOMOSYNTHESIS DIAGNOSTIC LT, 06/10/2024. MM TOMOSYNTHESIS DIAGNOSTIC LT, 06/27/2023. INDICATIONS: screening Calculator Name NCI Breast Cancer Risk Assessment Tool 5 Year Breast Cancer Risk n/a% Lifetime Breast Cancer Risk n/a% Personal Breast Cancer Yes, Right, Mastectomy 2018 age 68 Personal Ovarian Cancer No Treatments Right mastectomy Family Cancers None LOCATION: [facility] BREAST COMPOSITION: There are scattered areas of fibroglandular density. FINDINGS: c DIAGNOSTIC CATEGORY 1--NEGATIVE. RIGHT BREAST: No significant suspicious finding. LEFT BREAST: No significant suspicious finding. RECOMMENDATIONS: ROUTINE MAMMOGRAM AND CLINICAL EVALUATION IN 12 MONTHS. Dictated by: Carson Tamez DO on 07/13/2025 at 15:42 Approved by: Carson Tamez DO on 07/13/2025 at 15:44
== END 2025-07-13 10:49 | disposition home or self-care (01) ==
LOC: MAMMO 10:49
PROVIDERS: PCP Nurse Practitioner; Visit Provider Nurse Practitioner
DX: Z12.31 Encounter for screening mammogram for malignant neoplasm of breast (principal); Z85.3 Personal history of malignant neoplasm of breast
CPT/HCPCS: 77063; 77067